=== PATIENT | male | born 1950 | race Caucasian/White ===

== ENCOUNTER → 2017-12-21 15:03 | Outpatient (CLI) | payer MEDICARE, SELFPAY ==
[2017-12-21 15:30] LABS: CPK Total, Creatine Kinase 71 U/L (39-308)
== END ==
PROVIDERS: Family Provider Family Medicine; PCP Family Medicine; Visit Provider Nurse Practitioner Family
DX: R07.89 Other chest pain (principal)
CPT/HCPCS: 82550; 84484

== ENCOUNTER 2018-01-03 19:52 | Emergency (ER) | payer MEDICARE, SELFPAY ==
[2018-01-03 19:53] VITALS: BP 133/70; PULSE 80; RESP 16; TEMP 37.7; O2SAT 92; BMI 41.8
--- NOTE | 2018-01-03 21:25 | RAD_ITS ---
STUDY: X-RAY CHEST REASON FOR EXAM: Male, 67 years old. Chest pain TECHNIQUE: Frontal and lateral views of the chest COMPARISON: 05/06/2016 FINDINGS: The lungs are clear. There are no pleural effusions. There is no pneumothorax. The heart is normal in size. There are old, healed left-sided rib fractures. RAD/Chest PA and Lateral IMPRESSION: No acute thoracic pathology. Electronically Signed: William Corrales, at 21:56 EST Tel , Service support ,
--- NOTE | 2018-01-03 23:18 | ED.DCSUM_ITS ---
- ER Visit Summary Date of Service: 01/03/18 Chief Complaint: 3 week history of a cough. History of Present Illness: The patient is a 67 M has medical history of non- insulin-dependent diabetes, hypertension and anemia. Patient states that 3 week history of a cough. He was seen at the [facility] by nurse practitioner and placed on some antibiotic twice daily. He said initially felt better and now it seems like is coming back. He states he developed a sore throat on Wednesday. He has had some mild diarrhea and dry heaves. No shortness of breath. No chest pain. No leg pain or swelling. No hemoptysis. Currently is a non-smoker. Physical Examination: Male vital signs are febrile. Temperature 999. Pulse ox 90% room air no signs of hypoxia. H EENT exam unremarkable. Neck nontender no lymphadenopathy. TMs are normal bilaterally. Lungs dry cough but no rales, rhonchi or wheezing. Heart regular rate and rhythm no murmur. Abdomen is soft nontender nondistended no giving or masses. Normal bowel sounds no peritoneal signs. He is moving all 4 extremities. Neurovascular intact. Calves nontender , no edema no cords. Neurologically is awake and alert with no focal deficits. Test Results: Chest x-ray shows chronic changes but no acute process. No signs of pneumonia. Normal cardiac silhouette. Read both by myself and the radiologist. Emergency Department Course and Treatment: Exam the patient is doing well at 2315. He will be discharged to home. Treatment Plan: Patient is a viral syndrome. Fluids and rest. No antibiotic necessary. Disposition: discharge Impression: Viral URI This note was generated with [employer] dictation software. It may contain incorrect words, spelling, and punctuation that were not noted in review of the chart prior to signing ED Disposition - Plan for ED Patient: Chief Complaint: Cold Sx Referrals: Boston Figueroa MD [Primary Care Provider] -
--- NOTE | 2018-01-03 23:18 | ED.DEP ---
ED Disposition - Plan for ED Patient: Disposition: Home or Assisted Living Chief Complaint: Cold Sx Instructions: ED Upper Resp Infec No Abx Tx Referrals: Boston Figueroa MD [Primary Care Provider] - 1 Week if not improving Additional Instructions: Fluids and rest. Tylenol and Motrin for fever body aches. Your chest x-ray shows no signs of pneumonia. This appears to be a viral respiratory infection therefore antibiotics are not necessary. Call follow-up your primary care physician if not getting better return to ER if you are feeling worse.
[2018-01-03 23:47] VITALS: O2SAT 95
[2018-01-03 23:48] VITALS: BP 123/78; PULSE 75; RESP 17; O2SAT 96
== END 2018-01-03 23:48 | disposition home or self-care (01) ==
PROVIDERS: Emergency Provider Emergency Medicine; Family Provider Family Medicine; PCP Family Medicine
DX: J40 Bronchitis, not specified as acute or chronic (principal); J06.9 Acute upper respiratory infection, unspecified; R19.7 Diarrhea, unspecified; R11.10 Vomiting, unspecified; E11.9 Type 2 diabetes mellitus without complications; I10 Essential (primary) hypertension; D64.9 Anemia, unspecified; K76.0 Fatty (change of) liver, not elsewhere classified; Z79.899 Other long term (current) drug therapy
CPT/HCPCS: 71046; 99282

== ENCOUNTER → 2018-01-31 06:12 | Outpatient (CLI) | payer MEDICARE, SELFPAY ==
--- NOTE | 2018-01-31 18:32 | STRESSREP ---
Stress Test Report Pharmacologic myocardial perfusion stress test. 67-year-old man with a history of chest pressure and abnormal EKG. Stress protocol: Resting EKG demonstrates sinus rhythm with a rate of 61 bpm normal intervals and noted resting blood pressure is 144/80 mmHg. 0.4 mg regadenoson was infused per usual protocol followed by rapid intravenous saline flush injection continuous EKG monitoring was performed. The maximum heart rate attained was 75 bpm which was 49% maximum predicted heart rate the maximum workload attained was 1 metabolic equivalent. At rest there were no ST or T-wave changes noted to suggest abnormal flow reserve at peak infusion no ST or T-wave changes were noted suggest abnormal flow reserve. No clinical angina was noted. The resting blood pressure is 144/80 final blood pressure 130/70 mmHg. Myocardial perfusion protocol: 14.6 mCi of technetium 99m sestamibi was injected at rest. 0.4 mg regadenoson was infused per usual protocol. At peak infusion 44.8 mCi of technetium 99m sestamibi was injected stress images were obtained stress and rest images were reconstructed and compared in the short axis vertical long and horizontal long axis. Gated images were also obtained. Perfusion SPECT analysis: Review of the stress images demonstrate normal uptake of tracer noted involving the anterior wall and lateral wall. The septum and inferior wall demonstrate mildly reduced perfusion. No areas of reversibility are noted suggest ischemia. The resting images demonstrate a similar pattern. Inferior wall GI attenuation cannot be completely excluded. Gated SPECT analysis: The gated ejection fraction is 68%. Conclusion: Pharmacologic myocardial perfusion stress test with no evidence of ischemia. Preserved ejection fraction.
== END ==
PROVIDERS: Family Provider Family Medicine; PCP Family Medicine; Visit Provider Nurse Practitioner Family
DX: R07.89 Other chest pain (principal)
CPT/HCPCS: 78452; 93017; A9500; A4216; J2785

== ENCOUNTER → 2018-04-25 10:26 | Outpatient (CLI) | payer MEDICARE, SELFPAY ==
--- NOTE | 2018-04-25 10:29 | ECHOD_ITS ---
Reason For Study: Murmur Procedure This was a 2D Doppler, Color Flow transthoracic echocardiogram. Exam performed in department. Left Ventricle Normal LV size. Left ventricular systolic function is normal. The estimated ejection fraction is 60 %. Transmitral diastolic flow velocities suggest mild (stage 1) diastolic dysfunction (reversed pattern). No regional wall motion abnormalities noted. Right Ventricle Normal RV size. Normal systolic function. Atria The left atrium is mildly enlarged. Normal right atrium. Mitral Valve Normal mitral valve. Trivial mitral valve insufficiency. Tricuspid Valve Normal tricuspid valve. Unable to estimate RV systolic pressure due to inadequate jet, pulmonary artery pressure probably normal. Aortic Valve Trisinus/trileaflet aortic valve. Mild focal aortic valve calcification. Peak aortic valve gradient 36 mmHg. Mean aortic valve gradient 19 mmHg. Moderate aortic stenosis. Calculated aortic valve area (continuity equation) is 1.0 cm2. Mild (1+) aortic valve insufficiency. Pulmonic Valve Normal pulmonic valve. Great Vessels Normal aortic root. The pulmonary artery is normal size. Normal inferior vena cava. Pericardium/Pleural No pericardial effusion. MMode/2D Measurements & Calculations LVIDd: 4.7 cm IVSd: 1.1 cm LVOT diam: 2.0 cm LVIDs: 3.5 cm LVPWd: 1.3 cm LVOT area: 3.2 cm2 FS: 25.4 % Ao root diam: 3.7 cm LAV(MOD-bp): 56.1 ml LA A4 area: 21.0 cm2 ACS: 0.96 cm LAV(MOD-bp) Indexed: 22.9 ml/m2 LA dimension: 4.3 cm LAV(MOD-sp2): 43.0 ml LAV(MOD-sp4): 67.7 ml RA A4 area: 14.2 cm2 Time Measurements MV dec time: 0.18 sec Doppler Measurements & Calculations MV E max raghavendra: 71.3 cm/sec Lat Peak E' Raghavendra: 11.9 cm/sec Med Peak E' Raghavendra: 6.8 cm/sec MV A max raghavendra: 110.6 cm/sec E/E' lat: 6.0 E/E' med: 10.4 MV E/A: 0.65 MV V2 max: 116.5 cm/sec MV P1/2t max raghavendra: 85.7 cm/sec Ao V2 max: 301.4 cm/sec MV max P.4 mmHg MV P1/2t: 92.6 msec Ao max P.3 mmHg MV V2 mean: 60.9 cm/sec MV dec slope: 271.2 cm/sec2 Ao V2 mean: 201.4 cm/sec MV mean P.7 mmHg MVA(P1/2t): 2.4 cm2 Ao mean P.6 mmHg MV V2 VTI: 36.6 cm Ao V2 VTI: 68.1 cm MVA(VTI): 2.2 cm2 CATHIE(I,D): 1.2 cm2 CATHIE(V,D): 1.0 cm2 AI max raghavendra: 429.7 cm/sec LV V1 max: 96.3 cm/sec SV(LVOT): 80.6 ml AI max P.8 mmHg LV V1 max P.7 mmHg AI dec slope: 240.6 cm/sec2 LV V1 mean P.2 mmHg AI P1/2t: 523.0 msec LV V1 mean: 68.8 cm/sec LV V1 VTI: 25.1 cm PA V2 max: 98.2 cm/sec Interpretation Summary Normal LV size. Left ventricular systolic function is normal. The estimated ejection fraction is 60 %. Transmitral diastolic flow velocities suggest mild (stage 1) diastolic dysfunction (reversed pattern). Trivial mitral valve insufficiency. Moderate aortic stenosis. Calculated aortic valve area (continuity equation) is 1.0 cm2. Ordering Physician: Sabas Bae Referring Physician: Sabas Bae Performed By: Oscar Godoy RCS
== END ==
PROVIDERS: Family Provider Family Medicine; PCP Family Medicine; Visit Provider Internal Medicine Cardiovascular Disease
DX: I35.0 Nonrheumatic aortic (valve) stenosis (principal)
CPT/HCPCS: 93306

== ENCOUNTER 2018-07-29 08:18 | Outpatient (RCR) | payer MEDICARE, SELFPAY | END 2018-07-31 23:59 | LOC: NS 08:18 | PROVIDERS: Family Provider Family Medicine; PCP Family Medicine; Visit Provider Family Medicine | DX: E11.42 Type 2 diabetes mellitus with diabetic polyneuropathy (principal); E78.2 Mixed hyperlipidemia; I10 Essential (primary) hypertension; E66.01 Morbid (severe) obesity due to excess calories; Z68.41 Body mass index [BMI] 40.0-44.9, adult; Z71.3 Dietary counseling and surveillance | CPT/HCPCS: 97802 ==

== ENCOUNTER 2018-08-19 08:30 | Outpatient (RCR) | payer MEDICARE, SELFPAY | END 2018-08-31 23:59 | LOC: NS 08:30 | PROVIDERS: Family Provider Family Medicine; PCP Family Medicine; Visit Provider Family Medicine | DX: E66.01 Morbid (severe) obesity due to excess calories (principal); Z68.41 Body mass index [BMI] 40.0-44.9, adult; E11.42 Type 2 diabetes mellitus with diabetic polyneuropathy; E78.2 Mixed hyperlipidemia; I10 Essential (primary) hypertension; Z71.3 Dietary counseling and surveillance | CPT/HCPCS: 97803 ==

== ENCOUNTER 2018-09-06 10:18 | Outpatient (RCR) | payer MEDICARE, SELFPAY | END 2018-09-06 23:59 | LOC: NS 10:18 | PROVIDERS: Family Provider Family Medicine; PCP Family Medicine; Visit Provider Family Medicine | DX: E66.01 Morbid (severe) obesity due to excess calories (principal); Z68.41 Body mass index [BMI] 40.0-44.9, adult; E11.42 Type 2 diabetes mellitus with diabetic polyneuropathy; E78.2 Mixed hyperlipidemia; I10 Essential (primary) hypertension; Z71.3 Dietary counseling and surveillance | CPT/HCPCS: 97803 ==

== ENCOUNTER → 2019-02-10 12:34 | Outpatient (CLI) | payer MEDICARE, SELFPAY ==
[2019-01-25 16:06] VITALS: BMI 45.8
--- NOTE | 2019-02-10 12:36 | ECHOCS_ITS ---
Reason For Study: Murmur Procedure This was a 2D Doppler, Color Flow transthoracic echocardiogram. Exam performed in department. Left Ventricle Normal LV size. Mild concentric left ventricular hypertrophy. The estimated ejection fraction is 37 %. Moderate global left ventricular systolic dysfunction. Stage 1 diastolic dysfunction. There is moderate global hypokinesis of the left ventricle. Right Ventricle Normal RV size. Normal systolic function. Atria The left atrium is moderately enlarged. Normal right atrium. Mitral Valve Normal mitral valve. Tricuspid Valve Normal tricuspid valve. Unable to estimate RV systolic pressure due to inadequate jet, pulmonary artery pressure probably normal. Aortic Valve Trisinus/trileaflet aortic valve. Moderate diffuse aortic valve calcification. Peak aortic valve gradient 37 mmHg. Mean aortic valve gradient 17 mmHg. Moderate aortic stenosis. Calculated aortic valve area (continuity equation) is 1.0 cm2. Mild (1+) aortic valve insufficiency. Pulmonic Valve Normal pulmonic valve. Great Vessels Normal aortic root. The pulmonary artery is normal size. Normal inferior vena cava. Pericardium/Pleural No pericardial effusion. Medication 22 gauge I.V. with prn adaptor inserted into right arm. Diluted definity 2ml given slow IV push to enhance endocardial definition. MMode/2D Measurements & Calculations LVIDd: 5.8 cm IVSd: 1.3 cm LVOT diam: 2.0 cm LVIDs: 4.1 cm LVPWd: 1.1 cm RVDd: 3.6 cm FS: 28.6 % LVOT area: 3.3 cm2 Ao root diam: 3.5 cm LAV(MOD-bp): 78.6 ml LVAd ap4: 42.6 cm2 LAV(MOD-sp2): 60.0 ml EDV(MOD-sp4): 156.3 ml LAV(MOD-sp4): 95.8 ml EDV(sp4-el): 164.5 ml LVAs ap4: 31.7 cm2 ESV(MOD-sp4): 97.6 ml ESV(sp4-el): 100.9 ml EF(MOD-sp4): 37.6 % EF(sp4-el): 38.7 % SV(MOD-sp4): 58.7 ml SV(sp4-el): 63.6 ml LA A4 area: 27.4 cm2 RA A4 area: 17.2 cm2 Time Measurements MV dec time: 0.16 sec Doppler Measurements & Calculations MV E max raghavendra: 93.4 cm/sec Lat Peak E' Raghavendra: 14.4 cm/sec Med Peak E' Raghavendra: 6.3 cm/sec MV A max raghavendra: 104.8 cm/sec E/E' lat: 6.5 E/E' med: 14.7 MV E/A: 0.89 MV V2 max: 122.5 cm/sec MV P1/2t max raghavendra: 109.6 cm/sec Ao V2 max: 303.8 cm/sec MV max P.0 mmHg MV P1/2t: 64.1 msec Ao max P.9 mmHg MV V2 mean: 76.9 cm/sec MV dec slope: 500.8 cm/sec2 Ao V2 mean: 188.0 cm/sec MV mean P.7 mmHg MVA(P1/2t): 3.4 cm2 Ao mean P.0 mmHg MV V2 VTI: 27.8 cm Ao V2 VTI: 64.7 cm MVA(VTI): 2.3 cm2 CATHIE(I,D): 1.00 cm2 CATHIE(V,D): 0.99 cm2 AI max raghavendra: 403.7 cm/sec LV V1 max: 92.8 cm/sec MR max raghavendra: 467.6 cm/sec AI max P.2 mmHg LV V1 max P.5 mmHg MR max P.5 mmHg LV V1 mean P.0 mmHg AI dec slope: 359.3 cm/sec2 LV V1 mean: 65.9 cm/sec AI P1/2t: 329.1 msec LV V1 VTI: 19.8 cm SV(LVOT): 64.5 ml PA V2 max: 89.1 cm/sec Interpretation Summary Normal LV size. The estimated ejection fraction is 37 %. Moderate global left ventricular systolic dysfunction. Stage 1 diastolic dysfunction. Moderate diffuse aortic valve calcification. Moderate aortic stenosis. Calculated aortic valve area (continuity equation) is 1.0 cm2. Mild (1+) aortic valve insufficiency. Compared to the previous the LV function is reduced but the AV area is the same Contrast injection was performed. Ordering Physician: Sabas Bae Referring Physician: Sabas Bae Performed By: Oscar Godoy RCS
== END ==
PROVIDERS: Family Provider Family Medicine; PCP Family Medicine; Referring Provider Internal Medicine Cardiovascular Disease; Visit Provider Internal Medicine Cardiovascular Disease
DX: I25.10 Atherosclerotic heart disease of native coronary artery without angina pectoris (principal)
CPT/HCPCS: 93306; Q9957; C8929

== ENCOUNTER → 2019-02-15 10:27 | Outpatient (CLI) | payer MEDICARE, SELFPAY ==
[2019-02-15 08:56] VITALS: BMI 45.2
--- NOTE | 2019-02-15 10:50 | RAD_ITS ---
STUDY: X-RAY CHEST REASON FOR EXAM: Male, 69 years old. Preop for cardiac stents TECHNIQUE: PA and lateral views of the chest. COMPARISON: 01/03/2018 FINDINGS: There are interstitial fibrotic changes of the lungs. There is no demonstrated pleural abnormality. Normal size heart. Normal mediastinum and simi. Normal visualized pulmonary arteries. Normal visualized aortic arch and descending thoracic aorta. Normal visualized thoracic spine. Normal visualized ribs, clavicles, and shoulders. There is no demonstrated abnormality of the visualized soft tissue structures of the upper abdomen. RAD/Chest PA and Lateral IMPRESSION: Degenerative changes, as described above. No demonstrated acute cardiopulmonary process. Electronically Signed: Valerio Dinh MD at 15:57 EDT , Service support ,
[2019-02-15 11:09] LABS: Absolute Lymphocyte Count 1.28 X10^3/ul (0.83-4.51); Absolute Neutrophil Count 5.4 X10^3/uL (2.0-7.7); Basophil# 0.03 X10^3/uL; Basophil% 0.4 % (0-1); Eosinophil# 0.23 X10^3/uL; Hematocrit 41.6 % (40-54); Hemoglobin 12.9 g/dl (13.0-16.5); Lymphocyte # 1.28 X10^3/ul (4.0); Lymphocyte % 16.8 % (19-41); Mean Corpuscular Hgb 29.4 pg (27.0-32.0); Mean Corpuscular Volume 94.8 fL (80-94); Mean Platelet Vol. 10.6 fl (6.2-12.0); Monocyte# 0.61 X10^3/uL; Neutrophil # 5.43 X10^3/uL (2.7-7.7); Neutrophil % 71.5 % (47-70); POSITIVE COUNT NO; POSITIVE DIFFERENTIAL NO; POSITIVE MORPHOLOGY NO; Platelet Count 219 K/mm3 (150-450); RBC Distribution Width CV 14.9 % (11.6-14.6); RBC Distribution Width SD 51.1 fl (35.1-43.9); Red Blood Count 4.39 M/mm3 (4.6-6.2); White Blood Count 7.6 K/mm3 (4.4-11.0)
[2019-02-15 11:28] LABS: Anion Gap 6 (5-15); BUN 29 mg/dL (7-18); BUN/Creat Ratio 21.5 RATIO (10-20); Calcium,Total 8.5 mg/dL (8.5-10.1); Chloride 103 mmol/L (98-107); Creatinine, Serum 1.35 mg/dL (0.70-1.30); EST Glomerular Filtration Rate 56 mL/min (>60); Est Glom Filt Rate - Afr Amer 67 mL/min (>60); Glucose 177 mg/dL (74-106); Potassium 4.5 mmol/L (3.5-5.1); Sodium Level 138 mmol/L (136-145)
== END ==
PROVIDERS: Family Provider Family Medicine; PCP Family Medicine; Referring Provider Internal Medicine Cardiovascular Disease; Visit Provider Internal Medicine Cardiovascular Disease
DX: I35.0 Nonrheumatic aortic (valve) stenosis (principal); I10 Essential (primary) hypertension
CPT/HCPCS: 36415; 71046; 80048; 85025

== ENCOUNTER 2019-02-24 21:29 | Inpatient (IN) | payer MEDICARE, SELFPAY ==
[2019-02-15 08:56] VITALS: BMI 45.2
[2019-02-24 21:30] VITALS: BP 176/97; PULSE 98; RESP 24; TEMP 37.2; O2SAT 97; BMI 43.1
--- NOTE | 2019-02-24 21:41 | EKG12_ITS ---
Test Reason : CP Blood Pressure : / mmHG Vent. Rate : 100 BPM Atrial Rate : 100 BPM P-R Int : 138 ms QRS Dur : 100 ms QT Int : 344 ms P-R-T Axes : 033 048 163 degrees QTc Int : 443 ms Normal sinus rhythm ST & T wave abnormality, consider inferolateral ischemia Abnormal ECG Confirmed by DANIELA MOYER, BRICE ([id number]), editorial intern EDYTA NEIL ([id number]) on 02/27/2019 11:54:59 AM Referred By: Sabas Bae Confirmed By:BRICE SUAREZ MD
--- NOTE | 2019-02-24 21:44 | RAD_ITS ---
STUDY: X-RAY CHEST REASON FOR EXAM: Male, 69 years old. Chest pain for one hour. Shortness of breath. TECHNIQUE: Single AP portable view of the chest. COMPARISON: 02/15/2019. FINDINGS: There is mild atelectasis in the lower lung collins. There are no demonstrated pulmonary infiltrates. There is no demonstrated pleural abnormality. Normal size heart. Normal mediastinum and simi. Normal visualized pulmonary arteries. Normal visualized aortic arch and descending thoracic aorta. There are diffuse degenerative changes of the visualized thoracic spine. Normal visualized ribs, clavicles, and shoulders. There is no demonstrated abnormality of the visualized soft tissue structures of the upper abdomen. RAD/Chest 1 View (Portable) IMPRESSION: No evidence for acute cardiopulmonary pathology. Electronically Signed: Delta Holland MD at 22:08 EDT , Service support ,
[2019-02-24 21:56] LABS: Absolute Lymphocyte Count 2.38 X10^3/ul (0.83-4.51); Absolute Neutrophil Count 6.4 X10^3/uL (2.0-7.7); Basophil# 0.02 X10^3/uL; Basophil% 0.2 % (0-1); Eosinophil# 0.25 X10^3/uL; Eosinophils% 2.5 % (0-5); Hematocrit 42.6 % (40-54); Hemoglobin 13.6 g/dl (13.0-16.5); Lymphocyte # 2.38 X10^3/ul (4.0); Lymphocyte % 23.8 % (19-41); Mean Corp Hgb Conc 31.9 g/gl (32-36); Mean Corpuscular Hgb 29.7 pg (27.0-32.0); Mean Platelet Vol. 10.5 fl (6.2-12.0); Monocyte# 0.94 X10^3/uL; Monocyte% 9.4 % (0-10); Neutrophil # 6.37 X10^3/uL (2.7-7.7); Neutrophil % 63.9 % (47-70); Platelet Count 214 K/mm3 (150-450); RBC Distribution Width CV 15.2 % (11.6-14.6); RBC Distribution Width SD 51.6 fl (35.1-43.9); Red Blood Count 4.58 M/mm3 (4.6-6.2)
[2019-02-24 21:57] LABS: POSITIVE COUNT NO; POSITIVE DIFFERENTIAL NO; POSITIVE MORPHOLOGY NO
[2019-02-24 22:07] LABS: Anion Gap 8 (5-15); BUN 37 mg/dL (7-18); BUN/Creat Ratio 19.7 RATIO (10-20); Calcium,Total 8.2 mg/dL (8.5-10.1); Chloride 107 mmol/L (98-107); Creatinine, Serum 1.88 mg/dL (0.70-1.30); EST Glomerular Filtration Rate 38 mL/min (>60); Est Glom Filt Rate - Afr Amer 46 mL/min (>60); Estimated Creatinine Clearance 36.56 ml/min; Glucose 267 mg/dL (74-106); International Normalized Ratio 1.1; Potassium 4.9 mmol/L (3.5-5.1); Prothrombin Time (Protime)PT. 14.3 SECONDS (11.7-14.9); Sodium Level 140 mmol/L (136-145)
[2019-02-24] MEDS: Aspirin 81 MG TAB.CHEW 324 MG PO (22:48)
[2019-02-24] MEDS: Enoxaparin 120 MG/0.8 ML Syringe SC (22:49)
[2019-02-24 23:00] VITALS: BP 113/70; PULSE 74; RESP 14; O2SAT 96
--- NOTE | 2019-02-24 23:35 | ED.VISSUMM ---
- ER Visit Summary Date of Service: 02/24/19 Chief Complaint: Chest pain History of Present Illness: The patient is a [address] Bae and Dr. Figueroa. Patient reports that he had a heart catheterization in December that showed that he needed stents. He is actually scheduled to have this done on March 06. Reports that at 9:00 this evening while at rest he had the onset of a substernal chest pain lasted approximately 20 minutes. It radiated to both arms and into his jaw. It was tender to the worse and is pain-free currently. It was worsened by nothing. He took 2 doses of nitro without relief. Reports he was nausea and had dry heaves. He was also short of breath during this. He denies any diaphoresis. Physical Examination: Vitals: Stable. Afebrile. General: Well-nourished and well-developed. Head: Normocephalic atraumatic. Neck: Supple, no lymphadenopathy. No JVD. Nontender. Cardiovascular: Regular rate and rhythm. 2 out of 6 systolic murmur. Respiratory: No respiratory distress. Clear to auscultation bilaterally. Abdominal: Soft, nontender, nondistended, normal bowel sounds. No guarding, rebound, or peritoneal signs. Back: Nontender. Extremities: Nontender, no edema. Skin: Normal color, no rash. Neurologic: Alert and oriented ?3. Cranial nerves II through XII are intact. Normal strength and sensation. Psych: Normal affect. Test Results: EKG is sinus at [address] depression and T wave inversions. This is a change from his last EKG was was in April 2016. Chest x-ray is normal. CBC is normal. Chem-7 shows a BUN of 37, creatinine 1.88, glucose of 367, calcium of 8.2. INR is 1.1. Initial troponin 0 0.016. Emergency Department Course and Treatment: Patient was treated with aspirin and Lovenox subcu. He is chest pain-free and resting comfortably. I did review the patient's most recent office note from Dr. Bae. It shows that he had a heart catheterization 4-year 27 in [place] that showed an ejection fraction of 40%. He had a 90% LAD lesion, 60% circumflex lesion, 90% RCA lesion. This was discussed with the interventionalist who felt that these might be amenable to stent rather than bypass. He was scheduled to have this done as an outpatient. Treatment Plan: The patient was discussed with Dr. Dejesus and Dr. Key. He will be admitted to the hospital for further evaluation and treatment. Disposition: Admitted in improved condition. Impression: 1. Acute coronary syndrome. 2. VICTOR M score of 6. 3. Critical care time 30 minutes. This note was generated with [employer] dictation software. It may contain incorrect words, spelling, and punctuation that were not noted in review of the chart prior to signing ED Disposition - Plan for ED Patient: Disposition: Acute Care [facility]
--- NOTE | 2019-02-24 23:53 | PCM.HP.STD ---
Problem List (1) Non-rheumatic aortic stenosis Status: Chronic (2) Acute on chronic combined systolic (congestive) and diastolic (congestive) heart failure Status: Chronic (3) Hyperlipidemia Status: Chronic (4) Essential (primary) hypertension Status: Chronic History of Present Illness Date of Admission: 02/24/19 Chief Complaint: Chest pain The patient is a 69 year old M with a PMH as below who presents with acute onset of chest pain today while at rest. He states that the pain would radiate up to his jaw. He has had this pain before, and he was in [place] in September when he was having chest pain and he underwent a cardiac catheter few months ago while there that demonstrated significant coronary artery disease and they had suggested that he undergo coronary artery bypass as well as aortic valve replacement given his aortic stenosis. However, at that time he was found to have inflammation in his left lower extremity and they canceled surgery because they would not be able to take the graft. He was started on antibiotics at that time and he decided to come back to [place] and find a surgeon here to undergo the procedure. 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 He is currently presenting with similar chest pain in the ER the troponin was unremarkable and his EKG was different from his previous but we do not know if this is different than the EKGs that he had had in [place]. After receiving nitro, and a full dose aspirin he is beginning to feel better. Past Medical History Past Medical History (Chronic Problems): Chronic Problems (Last Reviewed 02/15/19 @ 09:53 by Sabas Bae MD) Non-rheumatic aortic stenosis (Chronic) Atherosclerosis of coronary artery without angina pectoris (Chronic) LAD-90% stenosis, LCx 60% stenosis, RCA 90% stenosis, EF 40%, mod 12/29/18 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) Hyperlipidemia (Chronic) Essential (primary) hypertension (Chronic) Secondary pulmonary arterial hypertension (Chronic) Medical History: Medical History (Last Reviewed 02/15/19 @ 09:53 by Sabas Bae MD) Non-rheumatic aortic stenosis (Chronic) I35.0 Atherosclerosis of coronary artery without angina pectoris (Chronic) I25.10 LAD-90% stenosis, LCx 60% stenosis, RCA 90% stenosis, EF 40%, mod 12/29/18 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) I50.43 Hyperlipidemia (Chronic) E78.5 Essential (primary) hypertension (Chronic) I10 Secondary pulmonary arterial hypertension (Chronic) I27.21 Bilateral lower extremity edema R60.0 Dermatitis L30.9 Elevated liver enzymes R74.8 Fatty liver K76.0 Gout M10.9 Morbid obesity E66.01 Obstructive sleep apnea G47.33 Osteoarthritis M19.90 Type 2 diabetes mellitus E11.9 Diastolic dysfunction (Inactive) I51.9 Allergies metformin Adverse Reaction (Verified 02/24/19 21:34) Elevated LDH and anion gap Home Medications: Ambulatory Orders Medication Instructions Recorded Allopurinol [Zyloprim] 300 mg PO DAILY 04/10/16 amoxicillin 500 mg capsule 500 mg PO .COMPLEX 04/14/18 aspirin 81 mg tablet,delayed 81 mg PO QDAY 04/14/18 release atorvastatin 20 mg tablet 40 mg PO QHS tab 01/25/19 carvedilol 6.25 mg tablet 6.25 mg PO BID 01/25/19 furosemide 40 mg tablet 40 mg PO BID tab 01/25/19 glipizide 5 mg tablet 5 mg PO BID 01/25/19 lisinopril 10 mg tablet 10 mg PO DAILY 01/25/19 multivitamin tablet 1 tab PO DAILY 01/25/19 nitroglycerin 0.4 mg sublingual 0.4 mg SUBLINGUAL Q5-15M PRN 01/25/19 tablet Surgical History: Surgical History (Last Reviewed 02/15/19 @ 09:53 by Sabas Bae MD) History of appendectomy Z90.49 History of herniorrhaphy Z98.890, Z87.19 History of left heart catheterization Onset Date: 12/29/18 Z98.890 LAD-90% stenosis, LCx 60% stenosis, RCA 90% stenosis, EF 40%, mod 12/29/18 History of tonsillectomy Z90.89 History of total knee replacement (TKR) Z96.659 Surgical History: - - T+A, Appendectomy, Inguinal Hernia repair, R TKR, L Knee Surgery Psychiatric History: No pertinent psych hx Smoking Status: Former smoker Tobacco Use: Cigarettes Alcohol: None Drugs: None - *Family History Maternal Family History: Family History (Last Reviewed 02/15/19 @ 09:53 by Sabas Bae MD) Mother Diabetes Hypertension Father Diabetes Hypertension Sister Hypertension Brother Diabetes Hypertension Cancer, Onset Age: 50 CAD (coronary artery disease) History Items: No pertinent history Paternal Family History: Family History (Last Reviewed 02/15/19 @ 09:53 by Sabas Bae MD) Mother Diabetes Hypertension Father Diabetes Hypertension Sister Hypertension Brother Diabetes Hypertension Cancer, Onset Age: 50 CAD (coronary artery disease) History Items: No pertinent history Review of Systems Constitutional: Denies: Chills, Fever, Weight Change HEENT: Denies: Head Aches, Sinus Congestion, Sinus Drainage Cardiovascular: Reports: Chest Pain. Denies: Palpitations Respiratory: Denies: Cough, Shortness of breath at rest, Sputum production Gastrointestinal: Denies: Abdominal Pain, Nausea, Vomiting Genitourinary: Denies: Dysuria Musculoskeletal: Denies: Joint Pain, Joint Tenderness Skin: Denies: Rash, Wounds Neurological: Denies: Numbness, Tingling, Focal weakness Psychiatric: Denies: Anxiety, Depression Hematologic/ Lymphatic: Denies: Easy Bruising, Easy Bleeding VTE Information - Inpt Only VTE Present on Admission: No - Physical Exam General: Alert, Oriented x3, Cooperative, No apparent distress HEENT: Atraumatic, PERRLA, EOMI, Normocephalic Oral: Moist Mucosa Neck: Supple, No JVD, Trachea Midline Lungs: Clear to auscultation, Normal air movement, No rhonchi, No wheeze, No rales Cardiovascular: Regular rate, Regular Rhythm, Normal S1, Normal S2, No murmurs Abdomen: Soft, Non Tender, Non-Distended, No Hepato-splenomegaly Extremities: No edema, Capillary Refill Less than 3 Seconds Skin: No rashes, No breakdown, - Neurological: Neuro grossly intact, Sensory exam intact to light touch and pain Psych/Mental Status: Normal Affect, Appropriate Vital Signs Temp Pulse Resp BP Pulse Ox 98.9 F 74 14 113/70 96 02/24/19 21:30 02/24/19 23:00 02/24/19 23:00 02/24/19 23:00 02/24/19 23:00 Oxygen Delivery Method Room Air Weight: 292 lb 1.8 oz Body Mass Index (BMI) 43.1 Laboratory Tests Past 24 Hrs 02/24/19 02/24/19 02/24/19 21:37 21:37 21:37 WBC 10.0 RBC 4.58 L Hgb 13.6 Hct 42.6 MCV 93.0 MCH 29.7 MCHC 31.9 L RDW 15.2 H RDW Differential 51.6 H Plt Count 214 MPV 10.5 Immature Gran % (Auto) 0.200 Neut % (Auto) 63.9 Lymph % (Auto) 23.8 [place] % (Auto) 9.4 Eos % (Auto) 2.5 Baso % (Auto) 0.2 Absolute Neuts (auto) 6.4 Absolute Lymphs (auto) 2.38 Total Counted Not Reportable PT 14.3 INR 1.1 Sodium 140 Potassium 4.9 Chloride 107 Carbon Dioxide 25.0 Anion Gap 8 BUN 37 H Creatinine 1.88 H Estim Creat Clear Calc 36.56 Est GFR (MDRD) Af Amer 46 L Est GFR (MDRD) Non-Af 38 L BUN/Creatinine Ratio 19.7 Glucose 267 H Calcium 8.2 L Troponin I 0.016 Assessment/Plan 1. Coronary artery disease/chest pain/HLD/HTN/chronic systolic and diastolic heart failure -He is presenting with an acute onset chest pain with a normal troponin -Goal trend his troponins and consult cardiology since there is already a planned intervention -Had an echo on the 15th of this month with an EF of 37% and moderate aortic stenosis -We will continue with his lisinopril, Coreg, aspirin, Lipitor -Creatinine is slightly elevated from baseline at 1.88 and will provide some IV fluids and hold his Lasix -He received full dose aspirin in the ER as well as therapeutic Lovenox. 2. Gout -Stable -Continue with allopurinol 3. DM2 -He is on glipizide at home which we will hold -will continue with long-acting insulin at night as well as sliding scale DVT: Lovenox Code Visit Inpatient E&M: 40975 Init Hosp L3
[2019-02-25] VITALS (14 sets, daily range): BP systolic 124–145; BP diastolic 56–81; PULSE 60–93; RESP 16–22; TEMP 36.6–37.1; O2SAT 93–98; BMI 42.3
--- NOTE | 2019-02-25 01:30 | EKG12_ITS ---
Test Reason : AM EKG Blood Pressure : / mmHG Vent. Rate : 062 BPM Atrial Rate : 062 BPM P-R Int : 194 ms QRS Dur : 094 ms QT Int : 392 ms P-R-T Axes : 061 027 018 degrees QTc Int : 397 ms Normal sinus rhythm Possible Anterior infarct , age undetermined Abnormal ECG Confirmed by DANIELA MOYER, BRICE ([id number]), market editor EDYTA NEIL ([id number]) on 02/28/2019 11:28:05 AM Referred By: KITTY Confirmed By:BRICE SUAREZ MD
[2019-02-25] MEDS: 0.9% Normal Saline 1,000 ML 75 ML IV (01:37)
--- NOTE | 2019-02-25 02:30 | EKG12_ITS ---
Test Reason : INC TROP Blood Pressure : / mmHG Vent. Rate : 067 BPM Atrial Rate : 067 BPM P-R Int : 180 ms QRS Dur : 094 ms QT Int : 392 ms P-R-T Axes : 047 030 056 degrees QTc Int : 414 ms Normal sinus rhythm Possible Inferior infarct , age undetermined Abnormal ECG Confirmed by DANIELA MOYER, BRICE ([id number]), city editor EDYTA NEIL ([id number]) on 02/28/2019 11:35:54 AM Referred By: Sabas Bae Confirmed By:BRICE SUAREZ MD
[2019-02-25] MEDS: Clopidogrel Bisulfate 300 MG Tablet 600 MG PO (02:40)
[2019-02-25 04:31] LABS: Absolute Lymphocyte Count 2.16 X10^3/ul (0.83-4.51); Absolute Neutrophil Count 5.8 X10^3/uL (2.0-7.7); Basophil# 0.03 X10^3/uL; Basophil% 0.3 % (0-1); Eosinophil# 0.16 X10^3/uL; Eosinophils% 1.8 % (0-5); Hematocrit 40.3 % (40-54); Hemoglobin 12.6 g/dl (13.0-16.5); Lymphocyte # 2.16 X10^3/ul (4.0); Lymphocyte % 24.4 % (19-41); Mean Corp Hgb Conc 31.3 g/gl (32-36); Mean Corpuscular Hgb 29.1 pg (27.0-32.0); Mean Corpuscular Volume 93.1 fL (80-94); Mean Platelet Vol. 10.4 fl (6.2-12.0); Monocyte# 0.65 X10^3/uL; Monocyte% 7.4 % (0-10); Neutrophil # 5.82 X10^3/uL (2.7-7.7); Neutrophil % 65.9 % (47-70); Platelet Count 207 K/mm3 (150-450); RBC Distribution Width CV 14.9 % (11.6-14.6); RBC Distribution Width SD 49.8 fl (35.1-43.9); Red Blood Count 4.33 M/mm3 (4.6-6.2); White Blood Count 8.8 K/mm3 (4.4-11.0)
[2019-02-25 04:33] LABS: POSITIVE COUNT NO; POSITIVE DIFFERENTIAL NO; POSITIVE MORPHOLOGY NO
[2019-02-25 05:17] LABS: Anion Gap 7 (5-15); BUN 36 mg/dL (7-18); BUN/Creat Ratio 22.2 RATIO (10-20); Calcium,Total 8.3 mg/dL (8.5-10.1); Chloride 110 mmol/L (98-107); Creatinine, Serum 1.62 mg/dL (0.70-1.30); EST Glomerular Filtration Rate 45 mL/min (>60); Est Glom Filt Rate - Afr Amer 54 mL/min (>60); Estimated Creatinine Clearance 42.43 ml/min; Glucose 131 mg/dL (74-106); Potassium 4.5 mmol/L (3.5-5.1); Sodium Level 143 mmol/L (136-145)
[2019-02-25 06:51] LABS: Bedside Glucose 116 mg/dL (70-110)
[2019-02-25] MEDS: Isosorbide Mononitrate 30 MG Tablet PO (08:58)
[2019-02-25] MEDS: Allopurinol 300 MG Tablet PO (08:59)
[2019-02-25] MEDS: Aspirin E.C. 81 MG Tablet PO (08:59)
[2019-02-25] MEDS: Carvedilol 6.25 MG Tablet PO ×2 (08:59→21:16)
[2019-02-25] MEDS: Lisinopril 10 MG Tablet PO (08:59)
[2019-02-25] MEDS: Enoxaparin 40 MG/0.4 ML Syringe SC (09:04)
[2019-02-25 11:36] LABS: Bedside Glucose 122 mg/dL (70-110)
--- NOTE | 2019-02-25 11:59 | PCM.PN.HOSP ---
Subjective: Patient seen and examined. Chest pain had resolved and he did not have any complaints. Review of systems otherwise negative for loss of vitals reviewed. Troponin noted to have trended up to a peak of 12. Vitals/I&O's: Vital Signs Temp Pulse Resp BP Pulse Ox 98.3 F 66 18 133/63 H 94 02/25/19 09:30 02/25/19 11:53 02/25/19 09:30 02/25/19 09:30 02/25/19 09:30 Oxygen Flow Rate (L/min) 2 Oxygen Delivery Method Room Air Weight: 286 lb 8 oz Body Mass Index (BMI) 42.3 Intake and Output for Last 24 Hours 02/23/19 02/24/19 02/25/19 23:59 23:59 23:59 Intake Total 500 / 500 Balance 500 / 500 General: Alert, Oriented x3, Cooperative, No apparent distress HEENT: Atraumatic, PERRLA, EOMI, Normocephalic Oral: Moist Mucosa Neck: Supple, No JVD, Negative Carotid Bruits Lungs: Clear to auscultation, Normal air movement, No rhonchi, No wheeze, No rales Cardiovascular: Regular rate, Regular Rhythm, Normal S1, Normal S2, No murmurs Abdomen: Bowel Sounds Present, Soft, Non Tender, Non-Distended, No Hepato-splenomegaly Extremities: No clubbing, No cyanosis, No edema, Capillary Refill Less than 3 Seconds Skin: No rashes, No breakdown Musculoskeletal: No Tenderness to Palpation of Joints or Extremities Lymphatic: No Cervical, Supraclavicular, or Inguinal Adenopathy Neurological: Cranial nerves II-XII grossly intact, Neuro grossly intact, Motor Exam 5/5 strength throughout Psych/Mental Status: Normal Affect, Appropriate, Alert and oriented to time, place, person, mood and affect Laboratory Results 02/24/19 21:37: WBC 10.0, RBC 4.58 L, Hgb 13.6, Hct 42.6, MCV 93.0, MCH 29.7, MCHC 31.9 L, RDW 15.2 H, RDW Differential 51.6 H, Plt Count 214, MPV 10.5, Immature Gran % (Auto) 0.200, Neut % (Auto) 63.9, Lymph % (Auto) 23.8, Polk % (Auto) 9.4, Eos % (Auto) 2.5, Baso % (Auto) 0.2, Absolute Neuts (auto) 6.4, Absolute Lymphs (auto) 2.38, Total Counted Not Reportable 02/24/19 21:37: PT 14.3, INR 1.1 02/24/19 21:37: Sodium 140, Potassium 4.9, Chloride 107, Carbon Dioxide 25.0, Anion Gap 8, BUN 37 H, Creatinine 1.88 H, Estim Creat Clear Calc 36.56, Est GFR (MDRD) Af Amer 46 L, Est GFR (MDRD) Non-Af 38 L, BUN/Creatinine Ratio 19.7, Glucose 267 H, Calcium 8.2 L, Troponin I 0.016 02/25/19 01:37: Troponin I 7.090 H* 02/25/19 04:19: Sodium 143, Potassium 4.5, Chloride 110 H, Carbon Dioxide 26.0, Anion Gap 7, BUN 36 H, Creatinine 1.62 H, Estim Creat Clear Calc 42.43, Est GFR (MDRD) Af Amer 54 L, Est GFR (MDRD) Non-Af 45 L, BUN/Creatinine Ratio 22.2 H, Glucose 131 H, Calcium 8.3 L, Troponin I 12.600 H* 02/25/19 04:19: WBC 8.8, RBC 4.33 L, Hgb 12.6 L, Hct 40.3, MCV 93.1, MCH 29.1, MCHC 31.3 L, RDW 14.9 H, RDW Differential 49.8 H, Plt Count 207, MPV 10.4, Immature Gran % (Auto) 0.200, Neut % (Auto) 65.9, Lymph % (Auto) 24.4, Polk % (Auto) 7.4, Eos % (Auto) 1.8, Baso % (Auto) 0.3, Absolute Neuts (auto) 5.8, Absolute Lymphs (auto) 2.16, Total Counted Not Reportable 02/25/19 06:46: POC Glucose 116 H 02/25/19 11:18: POC Glucose 122 H Diagnostic Data Chest X-Ray 02/24/19 21:44 IMPRESSION: No evidence for acute cardiopulmonary pathology. Electronically Signed: Delta Holland MD at 22:08 EDT , Service support , Current Medications Allopurinol (Zyloprim) 300 mg PO DAILY [facility] Last Admin: 02/25/19 08:59 Dose: 300 mg Aspirin (Ecotrin) 81 mg PO DAILY [facility] Last Admin: 02/25/19 08:59 Dose: 81 mg Atorvastatin Calcium (Lipitor) 40 mg PO QHS [facility] Carvedilol (Coreg) 6.25 mg PO BID [facility] Last Admin: 02/25/19 08:59 Dose: 6.25 mg Dextrose (D50w Syringe) 0 gm IV X1 PRN; Protocol PRN Reason: Hypoglycemia Enoxaparin Sodium (Lovenox) 40 mg SC DAILY@1000 [facility] Last Admin: 02/25/19 09:04 Dose: 40 mg Glucagon () 1 mg IM .X1 PRN PRN Reason: Hypoglycemia Sodium Chloride () 1,000 mls @ 75 mls/hr IV .[id number] [facility] Last Admin: 02/25/19 01:37 Dose: 75 mls/hr Insulin Glargine (Lantus (Bkc)) 10 units SC QHS [facility] Insulin Human Lispro (Humalog Kwikpen (Bk)) 0 unit SQ ACHS [facility]; Protocol Last Admin: 02/25/19 11:20 Dose: Not Given Isosorbide Mononitrate (Imdur) 30 mg PO DAILY [facility] Last Admin: 02/25/19 08:58 Dose: 30 mg Lisinopril (Zestril) 10 mg PO DAILY [facility] Last Admin: 02/25/19 08:59 Dose: 10 mg Magnesium Hydroxide (Milk Of Magnesia) 30 ml PO DAILY PRN PRN Reason: Constipation Nitroglycerin (Nitrostat) 0.4 mg SUBLINGUAL Q5M PRN PRN Reason: CHEST PAIN Sodium Chloride () 5 - 15 ml IV UD PRN PRN Reason: SALINE FLUSH Medical Necessity - Tobacco Use Smoking Status: Former smoker Tobacco Use: Cigarettes Assessment/Plan 1. NSTEMI chest pain didnt recur overnight troponin trended up from 0.016 on admission to a peak of 12.6 2D echo (02/13/19): EF of 37% with moderate aortic stenosis. Patient had similar event in [place] about 6 weeks ago and was scheduled to have CABG then but this was aborted on account of him getting cellulitis in the left lower extremity where the veins were going to be harvested. Patient has followed up with Dr. Bae and was scheduled to have a cardiac cath with possible angioplasty next week. currently on aspirin, plavix and statin as well as carvedilol. will put on heparin drip; unable to give lovenox therapeutic dose o/a of renal impairment Dr Dejesus on board; to have cardiac cath on Wednesday 2. History of gout: on allopurinol 3. 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 Also on carvedilol. Currently not on Lasix. 5. Type 2 diabetes mellitus: Glipizide on hold. On insulin Lantus 10 units nightly. Insulin sliding scale paradoxically seizures. 6. Hypertension: on carvedilol and lisinopril DVT prophylaxis: heparin drip Code Visit Inpatient E&M: [id number] [facility] L3
--- NOTE | 2019-02-25 12:08 | PN_ITS ---
Subjective: Patient seen and examined. Chest pain had resolved and he did not have any complaints. Review of systems otherwise negative for loss of vitals reviewed. Troponin noted to have trended up to a peak of 12. Vitals/I&O's: Vital Signs Temp Pulse Resp BP Pulse Ox 98.3 F 66 18 133/63 H 94 02/25/19 09:30 02/25/19 11:53 02/25/19 09:30 02/25/19 09:30 02/25/19 09:30 Oxygen Flow Rate (L/min) 2 Oxygen Delivery Method Room Air Weight: 286 lb 8 oz Body Mass Index (BMI) 42.3 Intake and Output for Last 24 Hours 02/23/19 02/24/19 02/25/19 23:59 23:59 23:59 Intake Total 500 / 500 Balance 500 / 500 General: Alert, Oriented x3, Cooperative, No apparent distress HEENT: Atraumatic, PERRLA, EOMI, Normocephalic Oral: Moist Mucosa Neck: Supple, No JVD, Negative Carotid Bruits Lungs: Clear to auscultation, Normal air movement, No rhonchi, No wheeze, No rales Cardiovascular: Regular rate, Regular Rhythm, Normal S1, Normal S2, No murmurs Abdomen: Bowel Sounds Present, Soft, Non Tender, Non-Distended, No Hepato- splenomegaly Extremities: No clubbing, No cyanosis, No edema, Capillary Refill Less than 3 Seconds Skin: No rashes, No breakdown Musculoskeletal: No Tenderness to Palpation of Joints or Extremities Lymphatic: No Cervical, Supraclavicular, or Inguinal Adenopathy Neurological: Cranial nerves II-XII grossly intact, Neuro grossly intact, Motor Exam 5/5 strength throughout Psych/Mental Status: Normal Affect, Appropriate, Alert and oriented to time, place, person, mood and affect Laboratory Results 02/24/19 21:37: WBC 10.0, RBC 4.58 L, Hgb 13.6, Hct 42.6, MCV 93.0, MCH 29.7, MCHC 31.9 L, RDW 15.2 H, RDW Differential 51.6 H, Plt Count 214, MPV 10.5, Immature Gran % (Auto) 0.200, Neut % (Auto) 63.9, Lymph % (Auto) 23.8, Patrick % (Auto) 9.4, Eos % (Auto) 2.5, Baso % (Auto) 0.2, Absolute Neuts (auto) 6.4, Absolute Lymphs (auto) 2.38, Total Counted Not Reportable 02/24/19 21:37: PT 14.3, INR 1.1 02/24/19 21:37: Sodium 140, Potassium 4.9, Chloride 107, Carbon Dioxide 25.0, Anion Gap 8, BUN 37 H, Creatinine 1.88 H, Estim Creat Clear Calc 36.56, Est GFR (MDRD) Af Amer 46 L, Est GFR (MDRD) Non-Af 38 L, BUN/Creatinine Ratio 19.7, Glucose 267 H, Calcium 8.2 L, Troponin I 0.016 02/25/19 01:37: Troponin I 7.090 H* 02/25/19 04:19: Sodium 143, Potassium 4.5, Chloride 110 H, Carbon Dioxide 26.0, Anion Gap 7, BUN 36 H, Creatinine 1.62 H, Estim Creat Clear Calc 42.43, Est GFR (MDRD) Af Amer 54 L, Est GFR (MDRD) Non-Af 45 L, BUN/Creatinine Ratio 22.2 H, Glucose 131 H, Calcium 8.3 L, Troponin I 12.600 H* 02/25/19 04:19: WBC 8.8, RBC 4.33 L, Hgb 12.6 L, Hct 40.3, MCV 93.1, MCH 29.1, MCHC 31.3 L, RDW 14.9 H, RDW Differential 49.8 H, Plt Count 207, MPV 10.4, Immature Gran % (Auto) 0.200, Neut % (Auto) 65.9, Lymph % (Auto) 24.4, Patrick % (Auto) 7.4, Eos % (Auto) 1.8, Baso % (Auto) 0.3, Absolute Neuts (auto) 5.8, Absolute Lymphs (auto) 2.16, Total Counted Not Reportable 02/25/19 06:46: POC Glucose 116 H 02/25/19 11:18: POC Glucose 122 H Diagnostic Data Chest X-Ray 02/24/19 21:44 IMPRESSION: No evidence for acute cardiopulmonary pathology. Electronically Signed: Delta Holland MD at 22:08 EDT , Service support , Current Medications Allopurinol (Zyloprim) 300 mg PO DAILY [facility] Last Admin: 02/25/19 08:59 Dose: 300 mg Aspirin (Ecotrin) 81 mg PO DAILY [facility] Last Admin: 02/25/19 08:59 Dose: 81 mg Atorvastatin Calcium (Lipitor) 40 mg PO QHS [facility] Carvedilol (Coreg) 6.25 mg PO BID [facility] Last Admin: 02/25/19 08:59 Dose: 6.25 mg Dextrose (D50w Syringe) 0 gm IV X1 PRN; Protocol PRN Reason: Hypoglycemia Enoxaparin Sodium (Lovenox) 40 mg SC DAILY@1000 [facility] Last Admin: 02/25/19 09:04 Dose: 40 mg Glucagon () 1 mg IM .X1 PRN PRN Reason: Hypoglycemia Sodium Chloride () 1,000 mls @ 75 mls/hr IV .[id number] [facility] Last Admin: 02/25/19 01:37 Dose: 75 mls/hr Insulin Glargine (Lantus (Bkc)) 10 units SC QHS [facility] Insulin Human Lispro (Humalog Kwikpen (Bk)) 0 unit SQ ACHS [facility]; Protocol Last Admin: 02/25/19 11:20 Dose: Not Given Isosorbide Mononitrate (Imdur) 30 mg PO DAILY [facility] Last Admin: 02/25/19 08:58 Dose: 30 mg Lisinopril (Zestril) 10 mg PO DAILY [facility] Last Admin: 02/25/19 08:59 Dose: 10 mg Magnesium Hydroxide (Milk Of Magnesia) 30 ml PO DAILY PRN PRN Reason: Constipation Nitroglycerin (Nitrostat) 0.4 mg SUBLINGUAL Q5M PRN PRN Reason: CHEST PAIN Sodium Chloride () 5 - 15 ml IV UD PRN PRN Reason: SALINE FLUSH Medical Necessity - Tobacco Use Smoking Status: Former smoker Tobacco Use: Cigarettes Assessment/Plan 1. NSTEMI * chest pain didnt recur overnight * troponin trended up from 0.016 on admission to a peak of 12.6 * 2D echo (02/13/19): EF of 37% with moderate aortic stenosis. * Patient had similar event in [place] about 6 weeks ago and was scheduled to have CABG then but this was aborted on account of him getting cellulitis in the left lower extremity where the veins were going to be harvested. * Patient has followed up with Dr. Bae and was scheduled to have a cardiac cath with possible angioplasty next week. * currently on aspirin, plavix and statin as well as carvedilol. * will put on heparin drip; unable to give lovenox therapeutic dose o/a of renal impairment * Dr Dejesus on board; to have cardiac cath on Wednesday * 2. History of gout: on allopurinol 3. CAD: as under 1 4., Combined systolic and diastolic heart failure * EF ius 37% * On lisinopril 10 mg daily, as well as Imdur. Also on carvedilol. Currently not on Lasix. * 5. Type 2 diabetes mellitus: Glipizide on hold. On insulin Lantus 10 units nightly. Insulin sliding scale paradoxically seizures. 6. Hypertension: on carvedilol and lisinopril DVT prophylaxis: heparin drip Code Visit Inpatient E&M: [id number] [facility] L[facility]
--- NOTE | 2019-02-25 13:26 | PCM.CONS.C ---
Problem List (1) NSTEMI (non-ST elevated myocardial infarction) Status: Acute (2) CAD (coronary artery disease) Status: Chronic Qualifiers: Coronary Disease-Associated Artery/Lesion type: [place] artery [place] vs. transplanted heart: [place] heart (3) Aortic valve disease Status: Chronic (4) CHF (congestive heart failure) Status: Chronic Qualifiers: Heart failure type: combined systolic and diastolic (5) Hyperlipidemia Status: Chronic (6) Essential (primary) hypertension Status: Chronic (7) Diabetes mellitus Status: Chronic Reason for Consult Date of Consultation: 02/25/19 History of Present Illness: The patient is a 69 year old white male who has a past history which apparently has included underlying CAD, aortic valve disease/aortic valve stenosis, combined systolic/diastolic mediated CHF, superimposed upon underlying hyperlipidemia, hypertension, diabetes mellitus, who has been undergoing cardiovascular evaluation care both in [place] as well as in [place]. He states while visiting family in [place] he underwent cardiovascular evaluation which included a diagnostic cardiac catheterization. At the time he was recommended, based on findings of multivessel disease and aortic valve disease to have consideration for open heart surgery with CABG and aortic valve replacement. He states prior to his surgery he was subsequently diagnosed with lower extremity cellulitis. Thus he states that surgery was placed on hold. He elected to return to [place] to continue his evaluation and care here. He was evaluated in the outpatient setting on 02-15-19. At that time it appears a tentative plan was made to further assess the patient's with respect to the possibility of avoiding open heart surgery in proceeding with CAD PCI and subsequent aortic valve evaluation and care. In the meantime the patient was continuing medical management. The patient noted that yesterday he developed chest discomfort. He did feel somewhat more short of breath and dyspneic. There was no report of nausea or emesis or overt diuresis. There is no report of near syncope or syncope. He subsequently had himself brought to the hospital (not by EMS) for further evaluation. He was evaluated in the emergency department and subsequently placed in the PCU for further evaluation and care. Based upon his evaluation thus far he has had findings of overall improvement in his symptoms after which he used nitroglycerin sublingual at home. He has also had findings of abnormal cardiac enzymes compatible with an acute non-ST segment elevation NE. His ECG demonstrated initially sinus rhythm with nonspecific ST and T wave changes especially in the inferolateral distribution. Upon repeat these changes appear to be less prominent. He is placed on medical management. Cardiology was consulted to further assist in his evaluation and care. [] Past Medical History Allergies/Adverse Reactions: Allergies metformin Adverse Reaction (Verified 02/24/19 21:34) Elevated LDH and anion gap Home Medications: Ambulatory Orders Medication Instructions Recorded Allopurinol [Zyloprim] 300 mg PO DAILY 04/10/16 amoxicillin 500 mg capsule 500 mg PO .COMPLEX 04/14/18 aspirin 81 mg tablet,delayed 81 mg PO QDAY 04/14/18 release atorvastatin 20 mg tablet 40 mg PO QHS tab 01/25/19 carvedilol 6.25 mg tablet 6.25 mg PO BID 01/25/19 furosemide 40 mg tablet 40 mg PO BID tab 01/25/19 glipizide 5 mg tablet 5 mg PO BID 01/25/19 lisinopril 10 mg tablet 10 mg PO DAILY 01/25/19 multivitamin tablet 1 tab PO DAILY 01/25/19 nitroglycerin 0.4 mg sublingual 0.4 mg SUBLINGUAL Q5-15M PRN 01/25/19 tablet Isosorbide Mononitrate [Isosorbide 30 mg PO DAILY 02/25/19 Mononitrate ER] Past Medical History (Chronic Problems): Chronic Problems (Last Reviewed 02/15/19 @ 09:53 by Sabas Bae MD) CAD (coronary artery disease) (Chronic) Aortic valve disease (Chronic) CHF (congestive heart failure) (Chronic) Diabetes mellitus (Chronic) Non-rheumatic aortic stenosis (Chronic) Atherosclerosis of coronary artery without angina pectoris (Chronic) LAD-90% stenosis, LCx 60% stenosis, RCA 90% stenosis, EF 40%, mod 12/29/18 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) Hyperlipidemia (Chronic) Essential (primary) hypertension (Chronic) Secondary pulmonary arterial hypertension (Chronic) Surgical History: - - T+A, Appendectomy, Inguinal Hernia repair, R TKR, L Knee Surgery Psychiatric History: No pertinent psych hx - *Family History Maternal Family History: Family History (Last Reviewed 02/15/19 @ 09:53 by Sabas Bae MD) Mother Diabetes Hypertension Father Diabetes Hypertension Sister Hypertension Brother Diabetes Hypertension Cancer, Onset Age: 50 CAD (coronary artery disease) History Items: No pertinent history Paternal Family History: Family History (Last Reviewed 02/15/19 @ 09:53 by Sabas Bae MD) Mother Diabetes Hypertension Father Diabetes Hypertension Sister Hypertension Brother Diabetes Hypertension Cancer, Onset Age: 50 CAD (coronary artery disease) History Items: No pertinent history Lives: Alone Smoking Status: Former smoker Tobacco Use: Cigarettes Alcohol: None Drugs: None Review of Systems - Review of Systems General: Denies: Fever, Night Sweats, Fatigue Cardiovascular: Reports: Chest Discomfort, Chest Discomfort at Rest, Shortness of Breath, Shortness of Breath at Rest, Peripheral Edema. Denies: Orthopnea, PND, Palpitations, Lightheadedness, Dizziness, Near Syncope, Syncope Respiratory: Reports: Shortness of Breath. Denies: Cough, Sputum Production, Hemoptysis Gastrointestinal: Denies: Hematemesis, Hematochezia, Melena Genitourinary: Denies: Dysuria, Hematuria Skin: Denies: Rash Subjectve: This is a 69-year-old white male who appears to be resting comfortably at this time in no acute distress. Objective: Vital Signs Temp Pulse Resp BP Pulse Ox 98.3 F 66 18 133/63 H 94 02/25/19 09:30 02/25/19 11:53 02/25/19 09:30 02/25/19 09:30 02/25/19 09:30 Oxygen Flow Rate (L/min) 2 Oxygen Delivery Method Room Air Weight: 286 lb 8 oz Body Mass Index (BMI) 42.3 Intake and Output for Last 24 Hours 02/23/19 02/24/19 02/25/19 23:59 23:59 23:59 Intake Total 900 / 900 Balance 900 / 900 General: Awake, Alert, Oriented x 3, Cooperative, No Acute Distress HEENT: Atraumatic, Normocephalic, PERRL, EOMI, Sclera Non Icteric Oral: Moist Mucosa Neck: Supple, Good ROM, No JVD Lungs: Clear to auscultation Cardiovascular: Regular Rhythm, Normal S1, Dimished A2 Murmur Murmur: Grade 2/6, Harsh, Mid Systolic, LLSB, LVOT, Sternal Notch Vascular: No Carotid Bruits Abdomen: Bowel Sounds Present, Soft, Non Tender Extremities: Trace RLE Edema, Trace LLE Edema Neurological: No Focal Motor or Sensory Deficit Psych/Mental Status: Appropriate 02/24/19 21:37: WBC 10.0, RBC 4.58 L, Hgb 13.6, Hct 42.6, MCV 93.0, MCH 29.7, MCHC 31.9 L, RDW 15.2 H, RDW Differential 51.6 H, Plt Count 214, MPV 10.5, Immature Gran % (Auto) 0.200, Neut % (Auto) 63.9, Lymph % (Auto) 23.8, [place] % (Auto) 9.4, Eos % (Auto) 2.5, Baso % (Auto) 0.2, Absolute Neuts (auto) 6.4, Total Counted Not Reportable 02/24/19 21:37: PT 14.3, INR 1.1 02/24/19 21:37: Sodium 140, Potassium 4.9, Chloride 107, Carbon Dioxide 25.0, Anion Gap 8, BUN 37 H, Creatinine 1.88 H, Est GFR (MDRD) Af Amer 46 L, Est GFR (MDRD) Non-Af 38 L, BUN/Creatinine Ratio 19.7, Glucose 267 H, Calcium 8.2 L, Troponin I 0.016 02/25/19 01:37: Troponin I 7.090 H* 02/25/19 04:19: Sodium 143, Potassium 4.5, Chloride 110 H, Carbon Dioxide 26.0, Anion Gap 7, BUN 36 H, Creatinine 1.62 H, Est GFR (MDRD) Af Amer 54 L, Est GFR (MDRD) Non-Af 45 L, BUN/Creatinine Ratio 22.2 H, Glucose 131 H, Calcium 8.3 L, Troponin I 12.600 H* 02/25/19 04:19: WBC 8.8, RBC 4.33 L, Hgb 12.6 L, Hct 40.3, MCV 93.1, MCH 29.1, MCHC 31.3 L, RDW 14.9 H, RDW Differential 49.8 H, Plt Count 207, MPV 10.4, Immature Gran % (Auto) 0.200, Neut % (Auto) 65.9, Lymph % (Auto) 24.4, [place] % (Auto) 7.4, Eos % (Auto) 1.8, Baso % (Auto) 0.3, Absolute Neuts (auto) 5.8, Total Counted Not Reportable Rhythm: Sinus rhythm EKG: As noted above ECHO: 02-10-19: Left ventricle with global left ventricular systolic dysfunction with estimated LVEF 37%; Decreased diastolic compliance; mild concentric LVH; moderate left atrial enlargement; moderate aortic valve stenosis Stress Test: 01-31-18: Pharmacologic stress nuclear imaging study: Considered negative for stress-induced myocardial ischemia with a gated LVEF of 68%. Cardiac Cath: According to outpatient medical records the patient underwent diagnostic cardiac catheterization on 12/29/2018 with findings of an LVEF of 40%, and LAD with 90% stenosis, and LCx with 60% stenosis, and RCA with 90% stenosis. He was also noted to have what was reported as at least moderate aortic valve stenosis. CXR: Preliminary evaluation: No acute cardiopulmonary disease process appreciated Assessment/Plan 1. Acute non-ST segment elevation NE The patient has experienced an acute non-ST segment elevation NE. His troponin I levels have increased. Follow-up troponin I levels are pending. His ECG changes are as noted above. He is undergone previous noninvasive and invasive evaluation as described above. At the present time he will continue medical therapy. This will include agents such as antiplatelet agents, anticoagulants, nitrates as deemed appropriate, beta-blockers, afterload reducing agents, and lipid-lowering agents. He will need to be considered for reassessment in the cardiac catheterization laboratory with respect to his underlying cardiovascular disease process for the need to continue with either percutaneous revascularization therapy or consideration for surgical based revascularization therapy. 2. CAD The patient has already been diagnosed with CAD. He now presents with findings of an acute non-ST segment elevation NE. He will continue medical management. He will continue noninvasive and invasive evaluation as deemed appropriate. Based upon his studies consideration will be given as to whether or not he is a candidate for catheter-based revascularization therapy or surgical based revascularization therapy. 3. Aortic valve disease/stenosis The patient does have aortic valve stenosis. He is undergone evaluation as described above. At the present time he will continue to be followed. His aortic valve can be reassessed as deemed appropriate either noninvasively or invasively. Consideration might be given for whether or not the patient does require continued conservative medical management and follow-up versus proceeding with some form of aortic valve repair/replacement either surgically or percutaneously in the future. 4. CHF The patient does have a history of CHF. Based upon his noninvasive and invasive studies it appears there is concern this may be combined systolic/diastolic mediated. The present time he appears to be without any acute findings. He will continue medical management as deemed appropriate. 5. Hyperlipidemia The patient will continue lipid-lowering therapy and follow-up. 6. Hypertension The patient will continue to have his blood pressure monitor. His medications can be adjusted as deemed appropriate. Hopefully this will keep his blood pressure under control and avoid any significant hypotension especially in light of his underlying aortic valve disorder. 7. Diabetes mellitus The patient does have a history of diabetes mellitus. He will need continued evaluation care per internal medicine. Of note this may factor in to his cardiovascular evaluation and care as to what form of revascularization therapy may be appropriate for him. Comment: The patient's case was discussed and reviewed with the patient. He was agreeable to this approach. This note was generated with [employer] dictation software. It may contain incorrect words, spelling, and punctuation that were not noted in checking the note before signing.
--- NOTE | 2019-02-25 13:32 | CON.PCM_ITS ---
Problem List (1) NSTEMI (non-ST elevated myocardial infarction) Status: Acute (2) CAD (coronary artery disease) Status: Chronic Qualifiers: Coronary Disease-Associated Artery/Lesion type: [place] artery [place] vs. transplanted heart: [place] heart (3) Aortic valve disease Status: Chronic (4) CHF (congestive heart failure) Status: Chronic Qualifiers: Heart failure type: combined systolic and diastolic (5) Hyperlipidemia Status: Chronic (6) Essential (primary) hypertension Status: Chronic (7) Diabetes mellitus Status: Chronic Reason for Consult Date of Consultation: 02/25/19 History of Present Illness: The patient is a 69 year old white male who has a past history which apparently has included underlying CAD, aortic valve disease/aortic valve stenosis, combined systolic/diastolic mediated CHF, superimposed upon underlying hyperlipidemia, hypertension, diabetes mellitus, who has been undergoing cardiovascular evaluation care both in [place] as well as in [place]. He states while visiting family in [place] he underwent cardiovascular evaluation which included a diagnostic cardiac catheterization. At the time he was recommended, based on findings of multivessel disease and aortic valve disease to have consideration for open heart surgery with CABG and aortic valve replacement. He states prior to his surgery he was subsequently diagnosed with lower extremity cellulitis. Thus he states that surgery was placed on hold. He elected to return to [place] to continue his evaluation and care here. He was evaluated in the outpatient setting on 02-15-19. At that time it appears a tentative plan was made to further assess the patient's with respect to the possibility of avoiding open heart surgery in proceeding with CAD PCI and subsequent aortic valve evaluation and care. In the meantime the patient was continuing medical management. The patient noted that yesterday he developed chest discomfort. He did feel somewhat more short of breath and dyspneic. There was no report of nausea or emesis or overt diuresis. There is no report of near syncope or syncope. He subsequently had himself brought to the hospital (not by EMS) for further evaluation. He was evaluated in the emergency department and subsequently placed in the PCU for further evaluation and care. Based upon his evaluation thus far he has had findings of overall improvement in his symptoms after which he used nitroglycerin sublingual at home. He has also had findings of abnormal cardiac enzymes compatible with an acute non-ST segment elevation [place]. His ECG demonstrated initially sinus rhythm with nonspecific ST and T wave changes especially in the inferolateral distribution. Upon repeat these changes appear to be less prominent. He is placed on medical management. Cardiology was consulted to further assist in his evaluation and care. [] Past Medical History Allergies/Adverse Reactions: Allergies metformin Adverse Reaction (Verified 02/24/19 21:34) Elevated LDH and anion gap Home Medications: Ambulatory Orders Medication Instructions Recorded Allopurinol [Zyloprim] 300 mg PO DAILY 04/10/16 amoxicillin 500 mg capsule 500 mg PO .COMPLEX 04/14/18 aspirin 81 mg tablet,delayed 81 mg PO QDAY 04/14/18 release atorvastatin 20 mg tablet 40 mg PO QHS tab 01/25/19 carvedilol 6.25 mg tablet 6.25 mg PO BID 01/25/19 furosemide 40 mg tablet 40 mg PO BID tab 01/25/19 glipizide 5 mg tablet 5 mg PO BID 01/25/19 lisinopril 10 mg tablet 10 mg PO DAILY 01/25/19 multivitamin tablet 1 tab PO DAILY 01/25/19 nitroglycerin 0.4 mg sublingual 0.4 mg SUBLINGUAL Q5-15M PRN 01/25/19 tablet Isosorbide Mononitrate [Isosorbide 30 mg PO DAILY 02/25/19 Mononitrate ER] Past Medical History (Chronic Problems): Chronic Problems (Last Reviewed 02/15/19 @ 09:53 by Sabas Bae MD) CAD (coronary artery disease) (Chronic) Aortic valve disease (Chronic) CHF (congestive heart failure) (Chronic) Diabetes mellitus (Chronic) Non-rheumatic aortic stenosis (Chronic) Atherosclerosis of coronary artery without angina pectoris (Chronic) LAD-90% stenosis, LCx 60% stenosis, RCA 90% stenosis, EF 40%, mod 12/29/18 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) Hyperlipidemia (Chronic) Essential (primary) hypertension (Chronic) Secondary pulmonary arterial hypertension (Chronic) Surgical History: - - T+A, Appendectomy, Inguinal Hernia repair, R TKR, L Knee Surgery Psychiatric History: No pertinent psych hx - *Family History Maternal Family History: Family History (Last Reviewed 02/15/19 @ 09:53 by Sabas Bae MD) Mother Diabetes Hypertension Father Diabetes Hypertension Sister Hypertension Brother Diabetes Hypertension Cancer, Onset Age: 50 CAD (coronary artery disease) History Items: No pertinent history Paternal Family History: Family History (Last Reviewed 02/15/19 @ 09:53 by Sabas Bae MD) Mother Diabetes Hypertension Father Diabetes Hypertension Sister Hypertension Brother Diabetes Hypertension Cancer, Onset Age: 50 CAD (coronary artery disease) History Items: No pertinent history Lives: Alone Smoking Status: Former smoker Tobacco Use: Cigarettes Alcohol: None Drugs: None Review of Systems - Review of Systems General: Denies: Fever, Night Sweats, Fatigue Cardiovascular: Reports: Chest Discomfort, Chest Discomfort at Rest, Shortness of Breath, Shortness of Breath at Rest, Peripheral Edema. Denies: Orthopnea, PND, Palpitations, Lightheadedness, Dizziness, Near Syncope, Syncope Respiratory: Reports: Shortness of Breath. Denies: Cough, Sputum Production, Hemoptysis Gastrointestinal: Denies: Hematemesis, Hematochezia, Melena Genitourinary: Denies: Dysuria, Hematuria Skin: Denies: Rash Subjectve: This is a 69-year-old white male who appears to be resting comfortably at this time in no acute distress. Objective: Vital Signs Temp Pulse Resp BP Pulse Ox 98.3 F 66 18 133/63 H 94 02/25/19 09:30 02/25/19 11:53 02/25/19 09:30 02/25/19 09:30 02/25/19 09:30 Oxygen Flow Rate (L/min) 2 Oxygen Delivery Method Room Air Weight: 286 lb 8 oz Body Mass Index (BMI) 42.3 Intake and Output for Last 24 Hours 02/23/19 02/24/19 02/25/19 23:59 23:59 23:59 Intake Total 900 / 900 Balance 900 / 900 General: Awake, Alert, Oriented x 3, Cooperative, No Acute Distress HEENT: Atraumatic, Normocephalic, PERRL, EOMI, Sclera Non Icteric Oral: Moist Mucosa Neck: Supple, Good ROM, No JVD Lungs: Clear to auscultation Cardiovascular: Regular Rhythm, Normal S1, Dimished A2 Murmur Murmur: Grade 2/6, Harsh, Mid Systolic, LLSB, LVOT, Sternal Notch Vascular: No Carotid Bruits Abdomen: Bowel Sounds Present, Soft, Non Tender Extremities: Trace RLE Edema, Trace LLE Edema Neurological: No Focal Motor or Sensory Deficit Psych/Mental Status: Appropriate 02/24/19 21:37: WBC 10.0, RBC 4.58 L, Hgb 13.6, Hct 42.6, MCV 93.0, MCH 29.7, MCHC 31.9 L, RDW 15.2 H, RDW Differential 51.6 H, Plt Count 214, MPV 10.5, Immature Gran % (Auto) 0.200, Neut % (Auto) 63.9, Lymph % (Auto) 23.8, [place] % (Auto) 9.4, Eos % (Auto) 2.5, Baso % (Auto) 0.2, Absolute Neuts (auto) 6.4, Total Counted Not Reportable 02/24/19 21:37: PT 14.3, INR 1.1 02/24/19 21:37: Sodium 140, Potassium 4.9, Chloride 107, Carbon Dioxide 25.0, Anion Gap 8, BUN 37 H, Creatinine 1.88 H, Est GFR (MDRD) Af Amer 46 L, Est GFR (MDRD) Non-Af 38 L, BUN/Creatinine Ratio 19.7, Glucose 267 H, Calcium 8.2 L, Troponin I 0.016 02/25/19 01:37: Troponin I 7.090 H* 02/25/19 04:19: Sodium 143, Potassium 4.5, Chloride 110 H, Carbon Dioxide 26.0, Anion Gap 7, BUN 36 H, Creatinine 1.62 H, Est GFR (MDRD) Af Amer 54 L, Est GFR (MDRD) Non-Af 45 L, BUN/Creatinine Ratio 22.2 H, Glucose 131 H, Calcium 8.3 L, Troponin I 12.600 H* 02/25/19 04:19: WBC 8.8, RBC 4.33 L, Hgb 12.6 L, Hct 40.3, MCV 93.1, MCH 29.1, MCHC 31.3 L, RDW 14.9 H, RDW Differential 49.8 H, Plt Count 207, MPV 10.4, Immature Gran % (Auto) 0.200, Neut % (Auto) 65.9, Lymph % (Auto) 24.4, [place] % (Auto) 7.4, Eos % (Auto) 1.8, Baso % (Auto) 0.3, Absolute Neuts (auto) 5.8, Total Counted Not Reportable Rhythm: Sinus rhythm EKG: As noted above ECHO: 02-10-19: Left ventricle with global left ventricular systolic dysfunction with estimated LVEF 37%; Decreased diastolic compliance; mild concentric LVH; moderate left atrial enlargement; moderate aortic valve stenosis Stress Test: 01-31-18: Pharmacologic stress nuclear imaging study: Considered negative for stress- induced myocardial ischemia with a gated LVEF of 68%. Cardiac Cath: According to outpatient medical records the patient underwent diagnostic cardiac catheterization on 12/29/2018 with findings of an LVEF of 40%, and LAD with 90% stenosis, and LCx with 60% stenosis, and RCA with 90% stenosis. He was also noted to have what was reported as at least moderate aortic valve stenosis. CXR: Preliminary evaluation: No acute cardiopulmonary disease process appreciated Assessment/Plan 1. Acute non-ST segment elevation [place] The patient has experienced an acute non-ST segment elevation [place]. His troponin I levels have increased. Follow-up troponin I levels are pending. His ECG changes are as noted above. He is undergone previous noninvasive and invasive evaluation as described above. At the present time he will continue medical therapy. This will include agents such as antiplatelet agents, anticoagulants, nitrates as deemed appropriate, beta-blockers, afterload reducing agents, and lipid-lowering agents. He will need to be considered for reassessment in the cardiac catheterization laboratory with respect to his underlying cardiovascular disease process for the need to continue with either percutaneous revascularization therapy or consideration for surgical based revascularization therapy. 2. CAD The patient has already been diagnosed with CAD. He now presents with findings of an acute non-ST segment elevation [place]. He will continue medical management. He will continue noninvasive and invasive evaluation as deemed appropriate. Based upon his studies consideration will be given as to whether or not he is a candidate for catheter-based revascul arization therapy or surgical based revascularization therapy. 3. Aortic valve disease/stenosis The patient does have aortic valve stenosis. He is undergone evaluation as described above. At the present time he will continue to be followed. His aortic valve can be reassessed as deemed appropriate either noninvasively or invasively. Consideration might be given for whether or not the patient does require continued conservative medical management and follow-up versus proceeding with some form of aortic valve repair/replacement either surgically or percutaneously in the future. 4. CHF The patient does have a history of CHF. Based upon his noninvasive and invasive studies it appears there is concern this may be combined systolic/diastolic mediated. The present time he appears to be without any acute findings. He will continue medical management as deemed appropriate. 5. Hyperlipidemia The patient will continue lipid-lowering therapy and follow-up. 6. Hypertension The patient will continue to have his blood pressure monitor. His medications can be adjusted as deemed appropriate. Hopefully this will keep his blood pressure under control and avoid any significant hypotension especially in light of his underlying aortic valve disorder. 7. Diabetes mellitus The patient does have a history of diabetes mellitus. He will need continued evaluation care per internal medicine. Of note this may factor in to his cardiovascular evaluation and care as to what form of revascularization therapy may be appropriate for him. Comment: The patient's case was discussed and reviewed with the patient. He was agreeable to this approach. This note was generated with [employer] dictation software. It may contain incorrect words, spelling, and punctuation that were not noted in checking the note before signing.
[2019-02-25] MEDS: HEPARIN/D5w 25,000 UNITS 25,000 UNITS/250 ML IV.SOLN. 17 UNITS IV (13:57)
[2019-02-25] MEDS: Clopidogrel Bisulfate 75 MG Tablet PO (14:01)
[2019-02-25 14:20] LABS: Partial Thromboplast Time 35.4 Seconds (24.1-36.2)
--- NOTE | 2019-02-25 14:52 | CM.UR ---
RN CM Assessment Met face to face with patient for initial transition planning/care coordination assessment. Introduced myself and my role. Verb understanding and agreement for assessment. Presentation: Chest pain. Was scheduled for stent placement on 03/06 but began with chest pain yesterday. PCP: Dr. melgar Specialists: Dr. Bae Preferred Pharmacy: [facility]. Insurance: [employer] [facility] Prescription Benefit: Yes LNOK: Martinez Melgar (son), Rachelle Alvarez (daughter) and brother Robert Melgar ([phone]) Home: Apartment. All on one floor. ADLs: Independent with all ADLS and IADLs. Transportation: Self DME: Cane, grab bars SNF/HHC: None Passport/waiver statistical assistant: None. States he has a telephonic nurse case manager that called from his insurance company but he is not sure her name/number. Advance Directives: None on file. Wants to complete his advance directives. When I met with him --I gave him all the forms. We agreed CALDERON Trivedi would go back later to assist in completing them. DC PLAN: Home, NN. Alyssa Marte RN, CCM.
--- NOTE | 2019-02-25 15:35 | CASEMGMT ---
Social Work PCU Reason for consult: advanced directives Referral source: patient Summary: Received call from Christine MOROCHO reporting that patient called out asking for assistance in completing advanced directives. Met with patient in room and introduced to social work role. Patient expresses clearly desire to complete POAHC. Patient declines completion of Living Will. Patient talkative during completion and discussed recent stressors with son. Patient did place son on the POAHC form, but placed the son last. First POAHC is patient's brother, then patient's daughter and then the son. Copy of POAHC placed on chart. Emotional support and supportive encouragement provided this date. Patient declines any other needs at this time. Plan: patient plans to return home at time of discharge. -MARIAELENA Cuellar, BEE RAISER
[2019-02-25 16:31] LABS: Bedside Glucose 132 mg/dL (70-110)
[2019-02-25] MEDS: Atorvastatin Calcium 80 MG Tablet PO (21:17)
[2019-02-25 21:35] LABS: Bedside Glucose 142 mg/dL (70-110)
[2019-02-26] VITALS (11 sets, daily range): BP systolic 133–158; BP diastolic 61–75; PULSE 42–156; RESP 14–18; TEMP 36.7–37; O2SAT 94–96
[2019-02-26] MEDS: HEPARIN/D5w 25,000 UNITS 25,000 UNITS/250 ML IV.SOLN. 17 UNITS IV (02:01)
[2019-02-26 02:35] LABS: Absolute Lymphocyte Count 2.31 X10^3/ul (0.83-4.51); Absolute Neutrophil Count 4.6 X10^3/uL (2.0-7.7); Basophil# 0.02 X10^3/uL; Basophil% 0.3 % (0-1); Eosinophil# 0.32 X10^3/uL; Eosinophils% 4.1 % (0-5); Hematocrit 39.9 % (40-54); Hemoglobin 12.4 g/dl (13.0-16.5); Lymphocyte # 2.31 X10^3/ul (4.0); Lymphocyte % 29.3 % (19-41); Mean Corp Hgb Conc 31.1 g/gl (32-36); Mean Corpuscular Hgb 28.8 pg (27.0-32.0); Mean Corpuscular Volume 92.6 fL (80-94); Mean Platelet Vol. 10.5 fl (6.2-12.0); Monocyte# 0.62 X10^3/uL; Monocyte% 7.9 % (0-10); Neutrophil # 4.59 X10^3/uL (2.7-7.7); Neutrophil % 58.1 % (47-70); Platelet Count 189 K/mm3 (150-450); RBC Distribution Width CV 14.9 % (11.6-14.6); Red Blood Count 4.31 M/mm3 (4.6-6.2); White Blood Count 7.9 K/mm3 (4.4-11.0)
[2019-02-26 02:36] LABS: POSITIVE COUNT NO; POSITIVE DIFFERENTIAL NO; POSITIVE MORPHOLOGY NO
[2019-02-26 02:45] LABS: Anion Gap 7 (5-15); BUN 34 mg/dL (7-18); BUN/Creat Ratio 25.6 RATIO (10-20); Calcium,Total 8.3 mg/dL (8.5-10.1); Chloride 107 mmol/L (98-107); Creatinine, Serum 1.33 mg/dL (0.70-1.30); EST Glomerular Filtration Rate 57 mL/min (>60); Est Glom Filt Rate - Afr Amer 68 mL/min (>60); Estimated Creatinine Clearance 51.68 ml/min; Glucose 129 mg/dL (74-106); Potassium 4.4 mmol/L (3.5-5.1); Sodium Level 139 mmol/L (136-145)
[2019-02-26 02:46] LABS: Partial Thromboplast Time 102.2 Seconds (24.1-36.2)
[2019-02-26 06:51] LABS: Bedside Glucose 131 mg/dL (70-110)
[2019-02-26 08:32] LABS: Partial Thromboplast Time 75.9 Seconds (24.1-36.2)
[2019-02-26] MEDS: Carvedilol 6.25 MG Tablet PO (09:03)
[2019-02-26] MEDS: Aspirin E.C. 81 MG Tablet PO (09:03)
[2019-02-26] MEDS: Isosorbide Mononitrate 30 MG Tablet PO (09:04)
[2019-02-26] MEDS: Lisinopril 10 MG Tablet PO (09:04)
[2019-02-26] MEDS: Allopurinol 300 MG Tablet PO (09:04)
[2019-02-26] MEDS: Clopidogrel Bisulfate 75 MG Tablet PO (09:04)
--- NOTE | 2019-02-26 10:25 | PCM.PN.HOSP ---
Patient Problems: Active and Suspected Problems (Last Reviewed 02/15/19 @ 09:53 by Sabas Bae MD) NSTEMI (non-ST elevated myocardial infarction) (Acute) Subjective: Patient seen and examined. He had an uneventful night and has no complaints. Review of systems otherwise negative. Chest pain did not recur. Theatrical Trouper on board and plan is for patient to have cardiac cath tomorrow. Vitals/I&O's: Vital Signs Temp Pulse Resp BP Pulse Ox 98.6 F 75 18 158/74 H 94 02/26/19 09:00 02/26/19 09:00 02/26/19 09:00 02/26/19 09:00 02/26/19 09:00 Oxygen Flow Rate (L/min) 2 Oxygen Delivery Method Room Air Weight: 286 lb 8 oz Body Mass Index (BMI) 42.3 Intake and Output for Last 24 Hours 02/24/19 02/25/19 02/26/19 23:59 23:59 23:59 Intake Total 1140 / 1140 728 / 728 Balance 1140 / 1140 728 / 728 General: Alert, Oriented x3, Cooperative, No apparent distress HEENT: Atraumatic, PERRLA, EOMI, Normocephalic Oral: Moist Mucosa Neck: Supple, No JVD, Negative Carotid Bruits Lungs: Clear to auscultation, Normal air movement, No rhonchi, No wheeze, No rales Cardiovascular: Regular rate, Regular Rhythm, Normal S1, Normal S2, No murmurs Abdomen: Bowel Sounds Present, Soft, Non Tender, Non-Distended, No Hepato-splenomegaly Extremities: No clubbing, No cyanosis, No edema, Capillary Refill Less than 3 Seconds Skin: No rashes, No breakdown Musculoskeletal: No Tenderness to Palpation of Joints or Extremities Lymphatic: No Cervical, Supraclavicular, or Inguinal Adenopathy Neurological: Cranial nerves II-XII grossly intact, Neuro grossly intact, Motor Exam 5/5 strength throughout Psych/Mental Status: Normal Affect, Appropriate, Alert and oriented to time, place, person, mood and affect Laboratory Results 02/25/19 11:18: POC Glucose 122 H 02/25/19 13:48: APTT 35.4 02/25/19 13:48: Troponin I 8.380 H* 02/25/19 16:24: POC Glucose 132 H 02/25/19 19:40: APTT 77.0 H 02/25/19 21:14: POC Glucose 142 H 02/26/19 02:01: WBC 7.9, RBC 4.31 L, Hgb 12.4 L, Hct 39.9 L, MCV 92.6, MCH 28.8, MCHC 31.1 L, RDW 14.9 H, RDW Differential 49.0 H, Plt Count 189, MPV 10.5, Immature Gran % (Auto) 0.300, Neut % (Auto) 58.1, Lymph % (Auto) 29.3, [place] % (Auto) 7.9, Eos % (Auto) 4.1, Baso % (Auto) 0.3, Absolute Neuts (auto) 4.6, Absolute Lymphs (auto) 2.31, Total Counted Not Reportable 02/26/19 02:01: Sodium 139, Potassium 4.4, Chloride 107, Carbon Dioxide 25.0, Anion Gap 7, BUN 34 H, Creatinine 1.33 H, Estim Creat Clear Calc 51.68, Est GFR (MDRD) Af Amer 68, Est GFR (MDRD) Non-Af 57 L, BUN/Creatinine Ratio 25.6 H, Glucose 129 H, Calcium 8.3 L 02/26/19 02:01: APTT 102.2 H* 02/26/19 06:42: POC Glucose 131 H 02/26/19 08:05: APTT 75.9 H Current Medications Allopurinol (Zyloprim) 300 mg PO DAILY [facility] Last Admin: 02/26/19 09:04 Dose: 300 mg Aspirin (Ecotrin) 81 mg PO DAILY [facility] Last Admin: 02/26/19 09:03 Dose: 81 mg Atorvastatin Calcium (Lipitor) 80 mg PO QHS [facility] Last Admin: 02/25/19 21:17 Dose: 80 mg Carvedilol (Coreg) 6.25 mg PO BID [facility] Last Admin: 02/26/19 09:03 Dose: 6.25 mg Clopidogrel Bisulfate (Plavix) 75 mg PO DAILY [facility] Last Admin: 02/26/19 09:04 Dose: 75 mg Dextrose (D50w Syringe) 0 gm IV X1 PRN; Protocol PRN Reason: Hypoglycemia Glucagon () 1 mg IM .X1 PRN PRN Reason: Hypoglycemia Heparin Sodium (Porcine) (Heparin Na) 0 unit IV UD PRN; Protocol Heparin Sodium/Dextrose () 25,000 units in 250 mls @ 17 mls/hr IV .[id number] [facility]; Protocol Last Admin: 02/26/19 02:01 Dose: 17 mls/hr Insulin Glargine (Lantus (Bkc)) 10 units SC QHS [facility] Last Admin: 02/25/19 21:17 Dose: Not Given Insulin Human Lispro (Humalog Kwikpen (Bk)) 0 unit SQ ACHS [facility]; Protocol Last Admin: 02/26/19 06:56 Dose: Not Given Isosorbide Mononitrate (Imdur) 30 mg PO DAILY [facility] Last Admin: 02/26/19 09:04 Dose: 30 mg Lisinopril (Zestril) 10 mg PO DAILY [facility] Last Admin: 02/26/19 09:04 Dose: 10 mg Magnesium Hydroxide (Milk Of Magnesia) 30 ml PO DAILY PRN PRN Reason: Constipation Nitroglycerin (Nitrostat) 0.4 mg SUBLINGUAL Q5M PRN PRN Reason: CHEST PAIN Sodium Chloride () 5 - 15 ml IV UD PRN PRN Reason: SALINE FLUSH Medical Necessity - Tobacco Use Smoking Status: Former smoker Tobacco Use: Cigarettes Assessment/Plan All Active Problems (Last Reviewed 02/15/19 @ 09:53 by Sabas Bae MD) NSTEMI (non-ST elevated myocardial infarction) (Acute) 1. NSTEMI chest pain didnt recur overnight troponin trended up from 0.016 on admission to a peak of 12.6 2D echo (02/13/19): EF of 37% with moderate aortic stenosis. Patient had similar event in [place] about 6 weeks ago and was scheduled to have CABG then but this was aborted on account of him getting cellulitis in the left lower extremity where the veins were going to be harvested. currently on aspirin, plavix and statin as well as carvedilol and heparin drip for cardiac cath tomorrow cardiology on board 2. History of gout: on allopurinol 3. CAD: as under 1 4., Combined systolic and diastolic heart failure EF is 37%, with LV moderate global systolic dysfunction and stage 1 diastolic dysfunction. On lisinopril 10 mg daily, as well as Imdur. Also on carvedilol. Currently not on Lasix. 5. Type 2 diabetes mellitus: Glipizide on hold. On insulin Lantus 10 units nightly. Insulin sliding scale. Accuchecks ACHS 6. Hypertension: on carvedilol and lisinopril 7. Moderate aortic stenosis echo showed peak aortic valve gradient of 37mmHg and mean aortic valve gradient of 17mmhg; aortic valve area is 1cm2 cardiology on board DVT prophylaxis: heparin drip Code Visit Inpatient E&M: 35783 [facility] Hosp L3
--- NOTE | 2019-02-26 10:29 | PN_ITS ---
Patient Problems: Active and Suspected Problems (Last Reviewed 02/15/19 @ 09:53 by Sabas Bae MD) NSTEMI (non-ST elevated myocardial infarction) (Acute) Subjective: Patient seen and examined. He had an uneventful night and has no complaints. Review of systems otherwise negative. Chest pain did not recur. Stage Rigger on board and plan is for patient to have cardiac cath tomorrow. Vitals/I&O's: Vital Signs Temp Pulse Resp BP Pulse Ox 98.6 F 75 18 158/74 H 94 02/26/19 09:00 02/26/19 09:00 02/26/19 09:00 02/26/19 09:00 02/26/19 09:00 Oxygen Flow Rate (L/min) 2 Oxygen Delivery Method Room Air Weight: 286 lb 8 oz Body Mass Index (BMI) 42.3 Intake and Output for Last 24 Hours 02/24/19 02/25/19 02/26/19 23:59 23:59 23:59 Intake Total 1140 / 1140 728 / 728 Balance 1140 / 1140 728 / 728 General: Alert, Oriented x3, Cooperative, No apparent distress HEENT: Atraumatic, PERRLA, EOMI, Normocephalic Oral: Moist Mucosa Neck: Supple, No JVD, Negative Carotid Bruits Lungs: Clear to auscultation, Normal air movement, No rhonchi, No wheeze, No rales Cardiovascular: Regular rate, Regular Rhythm, Normal S1, Normal S2, No murmurs Abdomen: Bowel Sounds Present, Soft, Non Tender, Non-Distended, No Hepato- splenomegaly Extremities: No clubbing, No cyanosis, No edema, Capillary Refill Less than 3 Seconds Skin: No rashes, No breakdown Musculoskeletal: No Tenderness to Palpation of Joints or Extremities Lymphatic: No Cervical, Supraclavicular, or Inguinal Adenopathy Neurological: Cranial nerves II-XII grossly intact, Neuro grossly intact, Motor Exam 5/5 strength throughout Psych/Mental Status: Normal Affect, Appropriate, Alert and oriented to time, place, person, mood and affect Laboratory Results 02/25/19 11:18: POC Glucose 122 H 02/25/19 13:48: APTT 35.4 02/25/19 13:48: Troponin I 8.380 H* 02/25/19 16:24: POC Glucose 132 H 02/25/19 19:40: APTT 77.0 H 02/25/19 21:14: POC Glucose 142 H 02/26/19 02:01: WBC 7.9, RBC 4.31 L, Hgb 12.4 L, Hct 39.9 L, MCV 92.6, MCH 28.8, MCHC 31.1 L, RDW 14.9 H, RDW Differential 49.0 H, Plt Count 189, MPV 10.5, Immature Gran % (Auto) 0.300, Neut % (Auto) 58.1, Lymph % (Auto) 29.3, [place] % (Auto) 7.9, Eos % (Auto) 4.1, Baso % (Auto) 0.3, Absolute Neuts (auto) 4.6, Absolute Lymphs (auto) 2.31, Total Counted Not Reportable 02/26/19 02:01: Sodium 139, Potassium 4.4, Chloride 107, Carbon Dioxide 25.0, Anion Gap 7, BUN 34 H, Creatinine 1.33 H, Estim Creat Clear Calc 51.68, Est GFR (MDRD) Af Amer 68, Est GFR (MDRD) Non-Af 57 L, BUN/Creatinine Ratio 25.6 H, Glucose 129 H, Calcium 8.3 L 02/26/19 02:01: APTT 102.2 H* 02/26/19 06:42: POC Glucose 131 H 02/26/19 08:05: APTT 75.9 H Current Medications Allopurinol (Zyloprim) 300 mg PO DAILY [facility] Last Admin: 02/26/19 09:04 Dose: 300 mg Aspirin (Ecotrin) 81 mg PO DAILY [facility] Last Admin: 02/26/19 09:03 Dose: 81 mg Atorvastatin Calcium (Lipitor) 80 mg PO QHS [facility] Last Admin: 02/25/19 21:17 Dose: 80 mg Carvedilol (Coreg) 6.25 mg PO BID [facility] Last Admin: 02/26/19 09:03 Dose: 6.25 mg Clopidogrel Bisulfate (Plavix) 75 mg PO DAILY [facility] Last Admin: 02/26/19 09:04 Dose: 75 mg Dextrose (D50w Syringe) 0 gm IV X1 PRN; Protocol PRN Reason: Hypoglycemia Glucagon () 1 mg IM .X1 PRN PRN Reason: Hypoglycemia Heparin Sodium (Porcine) (Heparin Na) 0 unit IV UD PRN; Protocol Heparin Sodium/Dextrose () 25,000 units in 250 mls @ 17 mls/hr IV .[id number] [facility]; Protocol Last Admin: 02/26/19 02:01 Dose: 17 mls/hr Insulin Glargine (Lantus (Bkc)) 10 units SC QHS [facility] Last Admin: 02/25/19 21:17 Dose: Not Given Insulin Human Lispro (Humalog Kwikpen (Bk)) 0 unit SQ ACHS [facility]; Protocol Last Admin: 02/26/19 06:56 Dose: Not Given Isosorbide Mononitrate (Imdur) 30 mg PO DAILY [facility] Last Admin: 02/26/19 09:04 Dose: 30 mg Lisinopril (Zestril) 10 mg PO DAILY [facility] Last Admin: 02/26/19 09:04 Dose: 10 mg Magnesium Hydroxide (Milk Of Magnesia) 30 ml PO DAILY PRN PRN Reason: Constipation Nitroglycerin (Nitrostat) 0.4 mg SUBLINGUAL Q5M PRN PRN Reason: CHEST PAIN Sodium Chloride () 5 - 15 ml IV UD PRN PRN Reason: SALINE FLUSH Medical Necessity - Tobacco Use Smoking Status: Former smoker Tobacco Use: Cigarettes Assessment/Plan All Active Problems (Last Reviewed 02/15/19 @ 09:53 by Sabas Bae MD) NSTEMI (non-ST elevated myocardial infarction) (Acute) 1. NSTEMI * chest pain didnt recur overnight * troponin trended up from 0.016 on admission to a peak of 12.6 * 2D echo (02/13/19): EF of 37% with moderate aortic stenosis. * Patient had similar event in [place] about 6 weeks ago and was scheduled to have CABG then but this was aborted on account of him getting cellulitis in the left lower extremity where the veins were going to be harvested. * currently on aspirin, plavix and statin as well as carvedilol and heparin drip * for cardiac cath tomorrow * cardiology on board * 2. History of gout: on allopurinol 3. CAD: as under 1 4., Combined systolic and diastolic heart failure * EF is 37%, with LV moderate global systolic dysfunction and stage 1 diastolic dysfunction. * On lisinopril 10 mg daily, as well as Imdur. Also on carvedilol. Currently not on Lasix. * 5. Type 2 diabetes mellitus: Glipizide on hold. On insulin Lantus 10 units nightly. Insulin sliding scale. Accuchecks ACHS 6. Hypertension: on carvedilol and lisinopril 7. Moderate aortic stenosis * echo showed peak aortic valve gradient of 37mmHg and mean aortic valve gradient of 17mmhg; aortic valve area is 1cm2 * cardiology on board * DVT prophylaxis: heparin drip Code Visit Inpatient E&M: 42891 [facility] Hosp L3
[2019-02-26] MEDS: Insulin Lispro 100 UNIT/ML INSULN.PEN SQ (12:02)
[2019-02-26 12:11] LABS: Bedside Glucose 179 mg/dL (70-110)
--- NOTE | 2019-02-26 13:08 | PCM.PN.CARD ---
Subjectve: The patient denies ongoing chest discomfort. He denies any acute shortness of breath or dyspnea. He is noted no palpitations. There has been no sensation of dizziness, lightheadedness, and there is been no episodes of near syncope or syncope reported. Objective: Vital Signs Temp Pulse Resp BP Pulse Ox 98.6 F 75 18 158/74 H 94 02/26/19 09:00 02/26/19 09:00 02/26/19 09:00 02/26/19 09:00 02/26/19 09:00 Oxygen Flow Rate (L/min) 2 Oxygen Delivery Method Room Air Weight: 286 lb 8 oz Body Mass Index (BMI) 42.3 Intake and Output for Last 24 Hours 02/24/19 02/25/19 02/26/19 23:59 23:59 23:59 Intake Total 1140 / 1140 968 / 968 Balance 1140 / 1140 968 / 968 General: Awake, Alert, Oriented x 3, Cooperative, No Acute Distress, Obese HEENT: Atraumatic, Normocephalic, PERRL, EOMI, Sclera Non Icteric Oral: Moist Mucosa Neck: Supple, Good ROM, No JVD Lungs: Clear to auscultation Cardiovascular: Regular Rhythm, Normal S1, Normal S2 Murmur Murmur: Grade 3/6, Harsh, Mid Systolic, LLSB, LVOT, Sternal Notch Abdomen: Bowel Sounds Present, Soft, Non Tender Extremities: No edema Psych/Mental Status: Appropriate 02/25/19 13:48: APTT 35.4 02/25/19 13:48: Troponin I 8.380 H* 02/25/19 19:40: APTT 77.0 H 02/26/19 02:01: WBC 7.9, RBC 4.31 L, Hgb 12.4 L, Hct 39.9 L, MCV 92.6, MCH 28.8, MCHC 31.1 L, RDW 14.9 H, RDW Differential 49.0 H, Plt Count 189, MPV 10.5, Immature Gran % (Auto) 0.300, Neut % (Auto) 58.1, Lymph % (Auto) 29.3, [place] % (Auto) 7.9, Eos % (Auto) 4.1, Baso % (Auto) 0.3, Absolute Neuts (auto) 4.6, Total Counted Not Reportable 02/26/19 02:01: Sodium 139, Potassium 4.4, Chloride 107, Carbon Dioxide 25.0, Anion Gap 7, BUN 34 H, Creatinine 1.33 H, Est GFR (MDRD) Af Amer 68, Est GFR (MDRD) Non-Af 57 L, BUN/Creatinine Ratio 25.6 H, Glucose 129 H, Calcium 8.3 L 02/26/19 02:01: APTT 102.2 H* 02/26/19 08:05: APTT 75.9 H Rhythm: Sinus rhythm; sinus pauses (greater than 4 seconds) Medical Necessity - Tobacco Use Smoking Status: Former smoker Tobacco Use: Cigarettes Assessment/Plan 1. Acute non-ST segment elevation [place] The patient has experienced an acute non-ST segment elevation [place]. His troponin I levels have subsequently decreased. He is undergone previous noninvasive and invasive evaluation as described above. At the present time he will continue medical therapy. This will include agents such as antiplatelet agents, anticoagulants, nitrates as deemed appropriate, beta-blockers, afterload reducing agents, and lipid-lowering agents. He will need to be considered for reassessment in the cardiac catheterization laboratory with respect to his underlying cardiovascular disease process for the need to continue with either percutaneous revascularization therapy or consideration for surgical based revascularization therapy. 2. CAD The patient has already been diagnosed with CAD. He now presents with findings of an acute non-ST segment elevation [place]. He will continue medical management. He will continue noninvasive and invasive evaluation as deemed appropriate. Based upon his studies consideration will be given as to whether or not he is a candidate for catheter-based revascularization therapy or surgical based revascularization therapy. 3. Aortic valve disease/stenosis The patient does have aortic valve stenosis. He is undergone evaluation as described above. At the present time he will continue to be followed. His aortic valve can be reassessed as deemed appropriate either noninvasively or invasively. Consideration might be given for whether or not the patient does require continued conservative medical management and follow-up versus proceeding with some form of aortic valve repair/replacement either surgically or percutaneously in the future. 4. CHF The patient does have a history of CHF. Based upon his noninvasive and invasive studies it appears there is concern this may be combined systolic/diastolic mediated. The present time he appears to be without any acute findings. He will continue medical management as deemed appropriate. 5. Sinus pause The patient did have a sinus pauses greater than 4 seconds. It is unclear as to whether he is done this in the past and has not been documented. It is unclear whether this could be related to his acute coronary syndrome event. At the present time he remains on a beta-trav. His dose will be decreased. Following his evaluation and care his dose can be readjusted as deemed appropriate. If he continues with evidence of conduction system disease despite evaluation care of underlying CAD/valvular related issues then he may need to be considered in the future for permanent pacemaker support. 6. Hyperlipidemia The patient will continue lipid-lowering therapy and follow-up. 7. Hypertension The patient will continue to have his blood pressure monitor. His medications can be adjusted as deemed appropriate. Hopefully this will keep his blood pressure under control and avoid any significant hypotension especially in light of his underlying aortic valve disorder. 8. Diabetes mellitus The patient does have a history of diabetes mellitus. He will need continued evaluation care per internal medicine. Of note this may factor in to his cardiovascular evaluation and care as to what form of revascularization therapy may be appropriate for him. Comment: The patient's case was discussed and reviewed with the patient. He was agreeable to this approach. This note was generated with [employer] software. It may contain incorrect words, spelling, and punctuation that were not noted in checking the note before signing.
--- NOTE | 2019-02-26 13:12 | PN.CARD_ITS ---
Subjectve: The patient denies ongoing chest discomfort. He denies any acute shortness of breath or dyspnea. He is noted no palpitations. There has been no sensation of dizziness, lightheadedness, and there is been no episodes of near syncope or syncope reported. Objective: Vital Signs Temp Pulse Resp BP Pulse Ox 98.6 F 75 18 158/74 H 94 02/26/19 09:00 02/26/19 09:00 02/26/19 09:00 02/26/19 09:00 02/26/19 09:00 Oxygen Flow Rate (L/min) 2 Oxygen Delivery Method Room Air Weight: 286 lb 8 oz Body Mass Index (BMI) 42.3 Intake and Output for Last 24 Hours 02/24/19 02/25/19 02/26/19 23:59 23:59 23:59 Intake Total 1140 / 1140 968 / 968 Balance 1140 / 1140 968 / 968 General: Awake, Alert, Oriented x 3, Cooperative, No Acute Distress, Obese HEENT: Atraumatic, Normocephalic, PERRL, EOMI, Sclera Non Icteric Oral: Moist Mucosa Neck: Supple, Good ROM, No JVD Lungs: Clear to auscultation Cardiovascular: Regular Rhythm, Normal S1, Normal S2 Murmur Murmur: Grade 3/6, Harsh, Mid Systolic, LLSB, LVOT, Sternal Notch Abdomen: Bowel Sounds Present, Soft, Non Tender Extremities: No edema Psych/Mental Status: Appropriate 02/25/19 13:48: APTT 35.4 02/25/19 13:48: Troponin I 8.380 H* 02/25/19 19:40: APTT 77.0 H 02/26/19 02:01: WBC 7.9, RBC 4.31 L, Hgb 12.4 L, Hct 39.9 L, MCV 92.6, MCH 28.8, MCHC 31.1 L, RDW 14.9 H, RDW Differential 49.0 H, Plt Count 189, MPV 10.5, Immature Gran % (Auto) 0.300, Neut % (Auto) 58.1, Lymph % (Auto) 29.3, Williams % (Auto) 7.9, Eos % (Auto) 4.1, Baso % (Auto) 0.3, Absolute Neuts (auto) 4.6, Total Counted Not Reportable 02/26/19 02:01: Sodium 139, Potassium 4.4, Chloride 107, Carbon Dioxide 25.0, Anion Gap 7, BUN 34 H, Creatinine 1.33 H, Est GFR (MDRD) Af Amer 68, Est GFR (MDRD) Non-Af 57 L, BUN/Creatinine Ratio 25.6 H, Glucose 129 H, Calcium 8.3 L 02/26/19 02:01: APTT 102.2 H* 02/26/19 08:05: APTT 75.9 H Rhythm: Sinus rhythm; sinus pauses (greater than 4 seconds) Medical Necessity - Tobacco Use Smoking Status: Former smoker Tobacco Use: Cigarettes Assessment/Plan 1. Acute non-ST segment elevation KS The patient has experienced an acute non-ST segment elevation KS. His troponin I levels have subsequently decreased. He is undergone previous noninvasive and invasive evaluation as described above. At the present time he will continue medical therapy. This will include agents such as antiplatelet agents, anticoagulants, nitrates as deemed appropriate, beta-blockers, afterload reducing agents, and lipid-lowering agents. He will need to be considered for reassessment in the cardiac catheterization laboratory with respect to his underlying cardiovascular disease process for the need to continue with either percutaneous revascularization therapy or cons ideration for surgical based revascularization therapy. 2. CAD The patient has already been diagnosed with CAD. He now presents with findings of an acute non-ST segment elevation KS. He will continue medical management. He will continue noninvasive and invasive evaluation as deemed appropriate. Based upon his studies consideration will be given as to whether or not he is a candidate for catheter-based revascularization therapy or surgical based revascularization therapy. 3. Aortic valve disease/stenosis The patient does have aortic valve stenosis. He is undergone evaluation as described above. At the present time he will continue to be followed. His aortic valve can be reassessed as deemed appropriate either noninvasively or invasively. Consideration might be given for whether or not the patient does require continued conservative medical management and follow-up versus proceeding with some form of aortic valve repair/replacement either surgically or percutaneously in the future. 4. CHF The patient does have a history of CHF. Based upon his noninvasive and invasive studies it appears there is concern this may be combined systolic/diastolic mediated. The present time he appears to be without any acute findings. He will continue medical management as deemed appropriate. 5. Sinus pause The patient did have a sinus pauses greater than 4 seconds. It is unclear as to whether he is done this in the past and has not been documented. It is unclear whether this could be related to his acute coronary syndrome event. At the present time he remains on a beta-trav. His dose will be decreased. Following his evaluation and care his dose can be readjusted as deemed appropriate. If he continues with evidence of conduction system disease despite evaluation care of underlying CAD/valvular related issues then he may need to be considered in the future for permanent pacemaker support. 6. Hyperlipidemia The patient will continue lipid-lowering therapy and follow-up. 7. Hypertension The patient will continue to have his blood pressure monitor. His medications can be adjusted as deemed appropriate. Hopefully this will keep his blood pressure under control and avoid any significant hypotension especially in light of his underlying aortic valve disorder. 8. Diabetes mellitus The patient does have a history of diabetes mellitus. He will need continued evaluation care per internal medicine. Of note this may factor in to his cardiovascular evaluation and care as to what form of revascularization therapy may be appropriate for him. Comment: The patient's case was discussed and reviewed with the patient. He was agreeable to this approach. This note was generated with [employer] dictation software. It may contain incorrect words, spelling, and punctuation that were not noted in checking the note before signing.
[2019-02-26 15:30] LABS: Partial Thromboplast Time 73.5 Seconds (24.1-36.2)
[2019-02-26 16:55] LABS: Bedside Glucose 105 mg/dL (70-110)
[2019-02-26] MEDS: HEPARIN/D5w 25,000 UNITS 25,000 UNITS/250 ML IV.SOLN. 15 UNITS IV (20:10)
[2019-02-26 21:36] LABS: Bedside Glucose 135 mg/dL (70-110)
[2019-02-26] MEDS: Atorvastatin Calcium 80 MG Tablet PO (21:40)
[2019-02-26] MEDS: Carvedilol 3.125 MG TABLET PO (21:40)
[2019-02-27] VITALS (25 sets, daily range): BP systolic 122–163; BP diastolic 58–101; PULSE 38–80; RESP 15–21; TEMP 36.6–36.8; O2SAT 93–96; BMI 42.3; BMI 42.2
[2019-02-27 03:04] LABS: Bacteria 0 SEEN /hpf (None Seen); Mucous, Urine 0 SEEN /hpf (<or=2+); Red Blood Cells-Urine 0 SEEN /hpf (0-5); Squamous Epithelial Cells - UA 0 SEEN /hpf (0-5); White Blood Cells 0 SEEN /hpf (0-5)
[2019-02-27 03:05] LABS: Color, Urine Yellow (Yellow); Glucose, Dipstick Normal (Normal); Ketone-Dipstick Negative (Negative); Leukocyte Esterase-Dipstick Negative /ul (Negative); Nitrite-Dipstick Negative (Negative); Occult Blood-Urine Negative /ul (Negative); Protein-Dipstick Negative (Negative); Specific Gravity, Urine 1.015 (1.002-1.030); Urine Bilirubin Dipstick Negative (Negative); Urine Clarity Clear (Clear); Urine Urobilinogen Normal (Normal); Urine pH 6.5 (5.0 - 8.0)
[2019-02-27 05:42] LABS: Absolute Lymphocyte Count 1.57 X10^3/ul (0.83-4.51); Absolute Neutrophil Count 4.8 X10^3/uL (2.0-7.7); Basophil# 0.02 X10^3/uL; Basophil% 0.3 % (0-1); Eosinophil# 0.27 X10^3/uL; Eosinophils% 3.7 % (0-5); Hematocrit 39.9 % (40-54); Hemoglobin 12.7 g/dl (13.0-16.5); Lymphocyte # 1.57 X10^3/ul (4.0); Lymphocyte % 21.7 % (19-41); Mean Corp Hgb Conc 31.8 g/gl (32-36); Mean Corpuscular Hgb 29.5 pg (27.0-32.0); Mean Corpuscular Volume 92.8 fL (80-94); Mean Platelet Vol. 10.3 fl (6.2-12.0); Monocyte# 0.56 X10^3/uL; Monocyte% 7.7 % (0-10); Neutrophil # 4.79 X10^3/uL (2.7-7.7); Neutrophil % 66.3 % (47-70); Platelet Count 187 K/mm3 (150-450); RBC Distribution Width CV 14.8 % (11.6-14.6); RBC Distribution Width SD 48.6 fl (35.1-43.9); White Blood Count 7.2 K/mm3 (4.4-11.0)
[2019-02-27 05:46] LABS: POSITIVE COUNT NO; POSITIVE DIFFERENTIAL NO; POSITIVE MORPHOLOGY NO
--- NOTE | 2019-02-27 05:55 | EKG12_ITS ---
Test Reason : ADM EKG Blood Pressure : / mmHG Vent. Rate : 072 BPM Atrial Rate : 072 BPM P-R Int : 184 ms QRS Dur : 090 ms QT Int : 374 ms P-R-T Axes : 039 028 077 degrees QTc Int : 409 ms Normal sinus rhythm Nonspecific T wave abnormality Abnormal ECG Confirmed by DANIELA MOYER, BRICE ([id number]), medical editor EDYTA NEIL ([id number]) on 02/28/2019 11:36:07 AM Referred By: Sabas Bae Confirmed By:BRICE SUAREZ MD
[2019-02-27 06:05] LABS: Anion Gap 8 (5-15); BUN 27 mg/dL (7-18); BUN/Creat Ratio 20.1 RATIO (10-20); Calcium,Total 8.5 mg/dL (8.5-10.1); Chloride 106 mmol/L (98-107); Creatinine, Serum 1.34 mg/dL (0.70-1.30); EST Glomerular Filtration Rate 56 mL/min (>60); Est Glom Filt Rate - Afr Amer 68 mL/min (>60); Glucose 136 mg/dL (74-106); Potassium 4.6 mmol/L (3.5-5.1); Sodium Level 139 mmol/L (136-145)
[2019-02-27] MEDS: Aspirin E.C. 81 MG Tablet PO (06:11)
[2019-02-27] MEDS: Lisinopril 10 MG Tablet PO (06:11)
[2019-02-27] MEDS: Isosorbide Mononitrate 30 MG Tablet PO (06:11)
[2019-02-27] MEDS: Carvedilol 3.125 MG TABLET PO ×2 (06:11→22:02)
[2019-02-27] MEDS: Clopidogrel Bisulfate 75 MG Tablet PO (06:11)
[2019-02-27] MEDS: 0.9% Normal Saline 1,000 ML 15 ML IV (06:13)
[2019-02-27 06:46] LABS: Bedside Glucose 132 mg/dL (70-110)
[2019-02-27 07:09] LABS: International Normalized Ratio 1.1; Prothrombin Time (Protime)PT. 14.2 SECONDS (11.7-14.9)
[2019-02-27 07:10] LABS: Partial Thromboplast Time 29.1 Seconds (24.1-36.2)
--- NOTE | 2019-02-27 09:00 | ECHOTEE_ITS ---
Reason For Study: MURMUR Medication JAN probe passed with minimal difficulty. No complications were noted. Cetacaine Topical [place] given X2 orally. Versed 2 mg given slow IVP. Fentanyl 25 mcg given slow IVP. [id number] gargled and swallowed. Performed a rapid injection of agitated mix of 9 cc saline and 1cc air to assess for atrial septal defect. Left Ventricle Mildly dilated left ventricle. The estimated ejection fraction is 35 %. There is moderate global hypokinesis of the left ventricle. Right Ventricle Normal size and thickness. The right ventricular wall motion is normal. Atria Normal atrial septum. Bubble contrast study negative for right to left interatrial shunt. Normal left atrium. No thrombus is detected in the left atrial appendage. Normal right atrium. Mitral Valve The mitral valve is structurally normal. No prolapse or stenosis seen. Mild-Moderate (1-2+) eccentric mitral valve insufficiency. Tricuspid Valve Normal tricuspid valve. Unable to estimate RV systolic pressure due to inadequate jet, pulmonary artery pressure probably normal. Aortic Valve Trisinus/trileaflet aortic valve. Moderate diffuse aortic valve thickening. Moderate restriction of the aortic valve. Moderate aortic stenosis. Calculated aortic valve area (continuity equation) is 1.4-1.9 cm2. Mild (1+) aortic valve insufficiency. Pulmonic Valve Normal pulmonic valve. Vessels Normal aortic root. Mild atherosclerosis of the aortic arch. The pulmonary artery is normal size. Normal pulmonary veins. Doppler Measurements & Calculations Ao V2 max: 266.2 cm/sec Ao V2 mean: 169.8 cm/sec Ao V2 VTI: 61.1 cm Interpretation Summary Mildly dilated left ventricle. The estimated ejection fraction is 35 %. There is moderate global hypokinesis of the left ventricle. Bubble contrast study negative for right to left interatrial shunt. Mild-Moderate (1-2+) eccentric mitral valve insufficiency. Unable to estimate RV systolic pressure due to inadequate jet, pulmonary artery pressure probably normal. Moderate aortic stenosis. Calculated aortic valve area (continuity equation) is 1.4-1.9 cm2 by planimetry. Peak/mean gradient was 28/14 mm Hg respectively, but probably underestimated given angle of acquisition. Mild (1+) aortic valve insufficiency. No thrombus is detected in the left atrial appendage. Ordering Physician: Tomasz Dejesus Referring Physician: DIPIKA PETERS Performed By: Madelyn Juarez RDCS
--- NOTE | 2019-02-27 09:49 | CASEMGMT ---
According to the [facility] website, the following are in-network tertiary facilities: [facility], [facility], [facility], [place], [facility], [facility], [place], [facility], and . Karlos MOROCHO CM
--- NOTE | 2019-02-27 12:19 | CL.I_ITS ---
Patient Name: RONNIE DEE Study Date: 02/27/2019 Performing: Ronnie Ball MD Ht: 69 inches 175 cm : 1950 Wt: 287 lbs 130 kg Age: 69 Gender: male BSA: 2.4 PROCEDURE(S) PERFORMED HD70-SNW/LHC/COR/LV [id number] W OR WO PTCA, SINGLE CORONARY ARTERY IO30-ISM W OR WO PTCA, EACH ADD'L ARTERY, SAME MAJOR CLINICAL PROFILE AND CO-MORBIDITIES Patient presents with NSTEMI for urgent cardiac cath Indications: ACS > 24 hrs, Stable Known CAD, Valvular Disease, LV Dysfunction Heart Failure: NYHA Class: 2, Newly Diagnosed: No, Heart Failure Type: Systolic Stress/Imaging Stress/Image Study Performed: No Angina Classification Anginal Classification w/in 2 Weeks: CCS IV CAD Presentations: Unstable angina. Comorbidities/Risk Factors: Hypertension Dyslipidemia Prior CHF Diabetes Mellitus: Diabetes Therapy: Insulin CONCLUSIONS Segmented LV systolic dysfunction- Moderate Triple vessel CAD of the RCA, LAD, AND LCX The patient has pulmonary hypertension which is mild. Right heart pressures - mildly elevated Successful PTCA/TAMIA of proximal RPL branch using a 2.25 x 12 Promus Synergy; 75%-->0%, no dissection. Successful PTCA/TAMIA distal RCA with a 2.5 x 16 Promus Synergy, post dilated with a 3.0 x 8 NC Balloon ; 75%-->0%, no dissection. Successful PTCA/TAMIA mid RCA with a 2.5 x 32 Promus Synergy, post dilated throughout with a 3.0, 3.5 a nd 3.75 NC Balloon; 85%-->0%, no dissection. RECOMMENDATIONS Referred for immediate PCI Either stress echo to eval LAD or return for FFR of LAD and OM#2 Highly recommend quitting all tobacco products Follow up with primary boilermaker's assistant Risk factor modification ASA Indefinitley Plavix for at least 12 months Routine post interventional care Refer for Outpatient Cardiac Rehab Manual sheath removal per protocol Follow up with Dr. Bae Consider stress echo in 3 weeks to eval LAD and OM lesions for PCI vs elective FFR eval of LAD and L CX. JAN today showed moderate aortic stenosis, and pullback of LV catheter showed mild with peak to peak gradient. Successful Mynx closure of RFA. DESCRIPTION OF PROCEDURE The patient arrived to the procedure lab. The risks and benefits of the procedure as well as a full d escription of our services here and lack of surgical backup were fully explained to the patient and/o r their significant other prior to the catheterization. The Timeout was completed, verifying the betsy ect patient and procedure. The patient's procedural site was prepped and draped in the usual fashion. Local anesthetic was given subcutaneously to right groin region with Lidocaine 2%. Using a modified Seldinger technique, arterial access was obtained via the right femoral artery, a 4Fr sheath was inse rted. Venous access was obtained via the right femoral vein, a 7Fr sheath was inserted. A 7Fr thermal dilution catheter was inserted and right heart pressures were recorded, it was then advanced to PA p osition for cardiac outputs. Thermal dilution cardiac outputs were then recorded. O2 saturations were then obtained. The Thermal dilution catheter was then removed. Left Ventriculography was performed in GAN projection using a 4 Fr. Pigtail catheter. Simultaneous pressures were then recorded . LV to AO pullback pressures were then recorded. Left Coronary Artery selective angiography was perf ormed in multiple views using a 4 Fr. JL5 catheter. Right Coronary Artery selective angiography was t hen performed in multiple views using a 4 Fr. 3DRC catheterThe images were reviewed and options discu ssed. A decision was then made to proceed with an Intervention, IVUS or other adjunct procedure. Arterial sheath was exchanged for a 6 Fr Sheath. al 1.0 Guide catheter was inserted and engaged i nto the RCA. runthrough Guide wire was advanced to the RCA. Angiogram performed pre balloon dilatatio n. emerge 2.00 x 12 Balloon catheter was advanced across lesion in the posterior descending, proximal . PTCA balloon inflated at 8 atms for 14 secs. emerge 2.00 x 12 Balloon catheter was advanced across lesion in the right coronary, distal. PTCA balloon inflated at 8 atms for 10 secs. PTCA balloon infla kole at 8 atms for 10 secs. PTCA balloon inflated at 10 atms for 20 secs. PTCA balloon inflated at 10 atms for 11 secs. Angiogram performed post balloon dilatation. emerge 2.00 x 12 Balloon catheter was advanced across lesion in the right coronary, mid. PTCA balloon inflated at 10 atms for 11 secs. Ball oon catheter was advanced across lesion in the right coronary, mid. PTCA balloon inflated at 8 atms f or 11 secs. PTCA balloon inflated at 8 atms for 17 secs. PTCA balloon inflated at 10 atms for 14 secs. PTCA balloon inflated at 10 atms for 11 secs. synergy 2.25 x 12 Drug Eluting stent was a dvanced across the lesion in the posterior descending, proximal. Angiogram performed pre stent deploy ment. Angiogram performed post stent deployment. synergy 2.5 x 16 Drug Eluting stent was advanced acr oss the lesion in the right coronary, distal. Angiogram performed post stent deployment. synergy 2.5 x 32 Drug Eluting stent was advanced across the lesion in the right coronary, mid. Angiogram performe d post stent deployment. nc emerge 3.5 x 12 Balloon catheter was inserted post stent to mid rca nc em erge 3.00 x 8 Balloon catheter was inserted post stent to mid rca PTCA balloon inflated at 18 atms fo r 13 secs. Angiogram performed post balloon dilatation. nc emerge 3.5 x 8 Balloon catheter was insert ed post stent. Angiogram performed post balloon dilatation. nc emerge 3.75 x 12 Balloon catheter was inserted post stent. Angiogram performed post balloon dilatation. Contrast was injected through the sheath and the Right Iliac and Femoral artery were assessed for possible closure device. The arterial sheath was pulled and a Mynx closure device was deployed for hemostasis CORONARY ANGIOGRAPHY DOMINANCE: Right Dominant LEFT HEART ASSESSMENT Left Ventricular Ejection Fraction: by LV Gram 35 % Depressed Left Ventricular systolic function LVEDP: 21 mmHg Elevated Left Ventricular End Diastolic Pressure Inferior Mid Hypokinesis - Moderate RIGHT HEART ASSESSMENT Thermal CO: 7.68 Thermal CI: 3.2 Priyank CO: 6.85 Priyank CI: 2.85 PW: 16/11 11 PA: 44/7 24 RV: 40/1 9 RA: 10 6 PVR: 135 SVR: 885 Right Heart pressures - elevated Pulmonary Hypertension Mild LEFT MAIN: Angiographically normal LEFT ANTERIOR DECENDING ARTERY: PROX LAD: Mild luminal irregularities less than 30% MID LAD: 70 % Stenosis, after bifurcation of moderate sized DIAG DIAGONAL 1: Proximal - Mild luminal irregularities less than 30% CIRCUMFLEX ARTERY: PROX CIRC: Mild luminal irregularities less than 30% MID CIRC: 70 % Stenosis DISTAL CIRC: 75 % Stenosis OM 2: Proximal - 70 % Stenosis RIGHT CORONARY ARTERY: MID RCA: 85 % Stenosis DISTAL RCA: 75 % Stenosis RT PLV: 75 % Stenosis VALVE FINDINGS: Aortic Valve Stenosis - mild to moderate INTERVENTION INFORMATION LESION SITE: RPL (1st) Lesion Complexity: Non-High/Non-C, lesion at bifurcation: No, thrombus present: No, lesion length: 12 mm, culprit lesion: No Pre Stenosis: 75 % Pre intervention VICTOR M flow: 3 PROCEDURE: Drug Eluting Stent with pre dilatation. Post Stenosis: 0 % Post intervention VICTOR M flow: 3 Lesion Devices: Krish Sci EMERGE MR 2.00x12 BALLOON Krish Sci Synergy MR TAMIA 2.25x12 Krish Sci NC EMERGE MR 3.50x12 BALLOON LESION SITE: RCA (Distal) Lesion Complexity: Non-High/Non-C, lesion at bifurcation: No, thrombus present: No, lesion length: 16 mm, culprit lesion: No Pre Stenosis: 75 % Pre intervention VICTOR M flow: 3 PROCEDURE: Drug Eluting Stent with pre and post dilatation Post Stenosis: 0 % Post intervention VICTOR M flow: 3 Lesion Devices: Krish Sci EMERGE MR 2.00x12 BALLOON Krish Sci Synergy MR TAMIA 2.50x16 LESION SITE: RCA (Mid) Lesion Complexity: High/C, lesion at bifurcation: No, thrombus present: No, culprit lesion: Yes Pre Stenosis: 85 % Pre intervention VICTOR M flow: 3 PROCEDURE: Drug Eluting Stent with pre and post dilatation 0 % Post intervention VICTOR M flow: 3 Lesion Devices: Krish Sci EMERGE MR 2.50x12 BALLOON Krish Sci Synergy MR TAMIA 2.50x32 Krish Sci NC EMERGE MR 3.75x12 BALLOON Krish Sci NC EMERGE MR 3.00x08 BALLOON Krish Sci NC EMERGE MR 3.50x08 BALLOON COMPLICATIONS No Complications PROCEDURE MEDICATIONS Oxygen: 2 L/min via nasal cannula Heparin 6000 unit(s) IV 02/27/2019 10:39:02 Nitro 200 mcg IC 02/27/2019 11:24:37 SUMMARY OF HEMODYNAMIC DATA Time AIR REST ECG 10:01:06 RA 10/10 (6) SV 10:18:50 RV 40/1, 9 10:19:02 PA 44/7 (24) PA 10:19:49 PW 16/11 (11) PV 10:21:45 LV 150/-15, 19 10:26:22 LV 151/-12, 21 10:26:29 LV 153/-15, 18 10:27:11 PW 13/8 (9) 10:27:11 LV 144/-15, 19 10:27:18 PW 13/8 (8) 10:27:18 LV 144/-12, 17 10:27:45 RV 42/-1, 6 10:27:45 LV 155/-1, 21 10:29:08 LV 155/-10, 26 10:29:14 LVp 151/-10, 29 10:29:20 AOp 141/64 (94) 10:29:25 AO 115/73 (91) SA 10:31:20 Type SV CO (l/m) CI (l/m/ HR Time AIR REST Thermal 118.20 7.68 3.20 65 10:01:06 Priyank 105.40 6.85 2.85 65 10:01:06 Label % O2 Pres/Loc Time AIR REST AO 93 PV 10:35:33 PA 66 PA 10:35:45 Signed By Ronnie Ball MD On 02/27/2019 12:17:57 PM Ronnie Ball MD
[2019-02-27 12:25] LABS: Base Excess -3 mmol/L (-2 to +2); Bicarbonate 22.6 mmol/L (22-26); Blood Gas Specimen Type ART; PO2 72 mmHG (75-100); SO2 93 % (95-99); Total Carbon Dioxide 24 mmol/L; pCO2 41.3 mmHg (35-45); pH 7.35 (7.35-7.45)
[2019-02-27 12:25] LABS: Blood Gas Specimen Type VEN; VBG BASE EXCESS -1 mmol/L (-1.0-3.5); VBG Bicarbonate 25 mmol/L (22-26); VBG Oxygen Content 26 mmol/L (23-33); VBG PO2 36 mmHg (25-40); VBG SO2 65 % (50-70); VBG pCO2 45.8 mmHg (41-51); VBG pH 7.34 (7.32-7.42)
[2019-02-27 12:25] LABS: Blood Gas Specimen Type VEN; VBG BASE EXCESS -1 mmol/L (-1.0-3.5); VBG Bicarbonate 25 mmol/L (22-26); VBG Oxygen Content 26 mmol/L (23-33); VBG PO2 37 mmHg (25-40); VBG SO2 67 % (50-70); VBG pCO2 45.1 mmHg (41-51); VBG pH 7.35 (7.32-7.42)
[2019-02-27 12:25] LABS: ACT Activated Clotting Time 180 sec (74-137)
--- NOTE | 2019-02-27 12:26 | EKG12_ITS ---
Test Reason : HEART CATH Blood Pressure : / mmHG Vent. Rate : 071 BPM Atrial Rate : 071 BPM P-R Int : 184 ms QRS Dur : 094 ms QT Int : 396 ms P-R-T Axes : 066 041 034 degrees QTc Int : 430 ms Normal sinus rhythm Normal ECG When compared with ECG of 27-FEB-2019 05:16, MANUAL COMPARISON REQUIRED, DATA IS UNCONFIRMED Confirmed by PAT ROSS ([id number]), editor map YANET EFLDER ([id number]) on 03/06/2019 2:28:43 PM Referred By: ROSI Confirmed By:CHIN ROSS
[2019-02-27] MEDS: 0.9% Normal Saline 1,000 ML 150 ML IV (13:00)
--- NOTE | 2019-02-27 13:46 | PCM.PN.HOSP ---
Patient Problems: Active and Suspected Problems (Last Updated 02/27/19 @ 12:42 by Mable Ramos) NSTEMI (non-ST elevated myocardial infarction) (Acute) Subjective: Patient had cardiac cath today which showed triple-vessel coronary artery disease. Patient had with PCI to proximal RPL and mid RCA and distal RCA Moderate segmental systolic dysfunction. Mild to moderate . Inferior mid inferior wall hypokinesis. EF 35% by LV gram Vitals/I&O's: Vital Signs Temp Pulse Resp BP Pulse Ox 98.0 F 72 18 141/65 H 96 02/27/19 13:30 02/27/19 13:30 02/27/19 13:30 02/27/19 13:30 02/27/19 13:30 Oxygen Flow Rate (L/min) 2 Oxygen Delivery Method Room Air Weight: 286 lb 8 oz Body Mass Index (BMI) 42.3 Intake and Output for Last 24 Hours 02/25/19 02/26/19 02/27/19 23:59 23:59 23:59 Intake Total 1140 / 1140 1208 / 1208 565.4 / 565.4 Balance 1140 / 1140 1208 / 1208 565.4 / 565.4 General: Alert, Oriented x3, Cooperative HEENT: Atraumatic, PERRLA, EOMI, Normocephalic Neck: Supple, No JVD, Negative Carotid Bruits Lungs: Clear to auscultation, Normal air movement, No rhonchi, No wheeze, No rales Cardiovascular: Regular rate, No murmurs Abdomen: Bowel Sounds Present, Soft, Non Tender, Non-Distended Extremities: No edema, Capillary Refill Less than 3 Seconds Skin: No rashes, No breakdown, - - Right groin cath access site. No hematoma. Small scab over left mid marquis Musculoskeletal: No Tenderness to Palpation of Joints or Extremities, Arthritic Changes - Bilateral TKR Lymphatic: No Cervical, Supraclavicular, or Inguinal Adenopathy Neurological: Cranial nerves II-XII grossly intact, Deep Tendon Reflexes 2+/4 and Symmetrical, Neuro grossly intact Psych/Mental Status: Normal Affect, Appropriate Laboratory Results 02/26/19 14:28: APTT 73.5 H 02/26/19 16:48: POC Glucose 105 02/26/19 20:40: Urine Color Yellow, Urine Clarity Clear, Urine pH 6.5, Ur Specific [place] 1.015, Urine Protein Negative, Urine Glucose (UA) Normal, Urine Ketones Negative, Urine Occult Blood Negative, Urine Nitrite Negative, Urine Bilirubin Negative, Urine Urobilinogen Normal, Ur Leukocyte Esterase Negative, Urine RBC 0 SEEN, Urine WBC 0 SEEN, Ur Squamous Epith Cells 0 SEEN, Urine Bacteria 0 SEEN, Urine Mucus 0 SEEN 02/26/19 21:19: POC Glucose 135 H 02/27/19 05:20: WBC 7.2, RBC 4.30 L, Hgb 12.7 L, Hct 39.9 L, MCV 92.8, MCH 29.5, MCHC 31.8 L, RDW 14.8 H, RDW Differential 48.6 H, Plt Count 187, MPV 10.3, Immature Gran % (Auto) 0.300, Neut % (Auto) 66.3, Lymph % (Auto) 21.7, Cotton % (Auto) 7.7, Eos % (Auto) 3.7, Baso % (Auto) 0.3, Absolute Neuts (auto) 4.8, Absolute Lymphs (auto) 1.57, Total Counted Not Reportable 02/27/19 05:20: Sodium 139, Potassium 4.6, Chloride 106, Carbon Dioxide 25.0, Anion Gap 8, BUN 27 H, Creatinine 1.34 H, Estim Creat Clear Calc 51.30, Est GFR (MDRD) Af Amer 68, Est GFR (MDRD) Non-Af 56 L, BUN/Creatinine Ratio 20.1 H, Glucose 136 H, Calcium 8.5 02/27/19 05:20: PT Cancelled, INR Cancelled, APTT Cancelled 02/27/19 06:09: POC Glucose 132 H 02/27/19 06:48: PT 14.2, INR 1.1, APTT 29.1 02/27/19 10:23: Specimen Type ROCIO, VBG pH 7.34, VBG pO2 36, VBG O2 Sat (Calc) 65, VBG O2 Content 26, VBG Base Excess -1, POC Mix VBG pCO2 Pt Tmp 45.8 02/27/19 10:26: Specimen Type ROCIO, VBG pH 7.35, VBG pO2 37, VBG O2 Sat (Calc) 67, VBG O2 Content 26, VBG Base Excess -1, POC Mix VBG pCO2 Pt Tmp 45.1 02/27/19 10:32: Specimen Type ART, pH 7.35, Bicarbonate Actual 22.6, POC Total CO2 24, Base Excess -3 L, O2 Saturation 93 L, ABG pCO2 41.3, ABG pO2 72 L 02/27/19 11:35: Activated Clotting Time 180 H Current Medications Allopurinol (Zyloprim) 300 mg PO DAILY [facility] Last Admin: 02/26/19 09:04 Dose: 300 mg Aspirin (Ecotrin) 81 mg PO DAILY [facility] Last Admin: 02/27/19 06:11 Dose: 81 mg Atorvastatin Calcium (Lipitor) 80 mg PO QHS [facility] Last Admin: 02/26/19 21:40 Dose: 80 mg Atropine Sulfate () 0.5 mg IV UD PRN PRN Reason: HR <50 bpm Carvedilol (Coreg) 3.125 mg PO BID [facility] Last Admin: 02/27/19 06:11 Dose: 3.125 mg Clopidogrel Bisulfate (Plavix) 75 mg PO DAILY [facility] Last Admin: 02/27/19 06:11 Dose: 75 mg Dextrose (D50w Syringe) 0 gm IV X1 PRN; Protocol PRN Reason: Hypoglycemia Furosemide (Lasix) 40 mg PO DAILY [facility] Glucagon () 1 mg IM .X1 PRN PRN Reason: Hypoglycemia Heparin Sodium (Beef Lung) (Heparin 500 Unit/5 Ml (100/Ml)) 500 unit IV UD PRN PRN Reason: HEPARIN FLUSH Heparin Sodium (Porcine) (Heparin Na) 0 unit IV UD PRN; Protocol Sodium Chloride () 1,000 mls @ 0 mls/hr IV .Q0M [facility] Last Admin: 02/27/19 06:13 Dose: 15 mls/hr Sodium Chloride () 1,000 mls @ 150 mls/hr IV .Q6H40M [facility] Stop: 02/27/19 19:05 Last Admin: 02/27/19 13:00 Dose: 150 mls/hr Insulin Glargine (Lantus (Bkc)) 10 units SC QHS [facility] Last Admin: 02/26/19 21:41 Dose: 10 units Insulin Human Lispro (Humalog Kwikpen (Bkc)) 0 unit SQ ACHS [facility]; Protocol Last Admin: 02/27/19 06:10 Dose: Not Given Isosorbide Mononitrate (Imdur) 30 mg PO DAILY [facility] Last Admin: 02/27/19 06:11 Dose: 30 mg Labetalol HCl (Trandate) 5 mg IV X1 PRN PRN Reason: SBP > 160 when pulling sheath Lisinopril (Zestril) 10 mg PO DAILY [facility] Last Admin: 02/27/19 06:11 Dose: 10 mg Lorazepam (Ativan) 1 mg PO Q6H PRN PRN PRN Reason: BACK SPASMS/ANXIETY Magnesium Hydroxide (Milk Of Magnesia) 30 ml PO DAILY PRN PRN Reason: Constipation Metoclopramide HCl (Reglan) 5 mg IV Q6 PRN PRN Reason: NAUSEA/VOMITING Morphine Sulfate () 2 mg IV Q4H PRN PRN PRN Reason: Mild back pain (0-2/10) Nitroglycerin (Nitrostat) 0.4 mg SUBLINGUAL Q5M PRN PRN Reason: CHEST PAIN Sodium Chloride () 5 - 15 ml IV UD PRN PRN Reason: SALINE FLUSH Sodium Chloride () 500 ml IV BOLUS PRN PRN Reason: VASO-VAGAL PROTOCOL Medical Necessity - Tobacco Use Smoking Status: Former smoker Tobacco Use: Cigarettes Assessment/Plan All Active Problems (Last Updated 02/27/19 @ 12:42 by Mable Ramos) NSTEMI (non-ST elevated myocardial infarction) (Acute) This is a 69-year-old gentleman with history of chronic combined heart failure, dyslipidemia and was admitted with acute onset of chest pain at rest with radiation to his jaw. Troponins were elevated 0.016 to a peak of 12.6 and admitted with non-STEMI. He had similar pain in September [place] was recommended CABG for significant coronary artery disease and aortic stenosis cath was canceled secondary to left lower extremity cellulitis at the site of graft harvested. Was treated with antibiotic at that time. 1 . NSTEMI 2D echo (02/13/19): EF of 37% with moderate aortic stenosis. Patient had cardiac cath on 02/27/2019 with PCI stent to proximal RPL and mid RCA and distal RCA. Moderate segmental systolic dysfunction. Mild to moderate . Inferior mid inferior wall hypokinesis. EF 35% by LV gram currently on aspirin, plavix and statin as well as carvedilol. Seen by radio mechanic helper. 2. gout: on allopurinol 3 Chronic combined systolic and diastolic heart failure EF is 37%, with LV moderate global systolic dysfunction and stage 1 diastolic dysfunction. On lisinopril 10 mg daily, as well as Imdur. Also on carvedilol. 5. Type 2 diabetes mellitus: Glipizide on hold. On insulin Lantus 10 units nightly. Insulin sliding scale. Accuchecks ACHS 6. Hypertension: on carvedilol and lisinopril 7. Moderate aortic stenosis echo showed peak aortic valve gradient of 37mmHg and mean aortic valve gradient of 17mmhg; aortic valve area is 1 cm2 cardiology on board DVT prophylaxis: Start Lovenox after 24 hours of cardiac cath Laboratory Results 02/27/19 05:20: WBC 7.2, RBC 4.30 L, Hgb 12.7 L, Hct 39.9 L, MCV 92.8, MCH 29.5, MCHC 31.8 L, RDW 14.8 H, RDW Differential 48.6 H, Plt Count 187, MPV 10.3, Immature Gran % (Auto) 0.300, Neut % (Auto) 66.3, Lymph % (Auto) 21.7, Cotton % (Auto) 7.7, Eos % (Auto) 3.7, Baso % (Auto) 0.3, Absolute Neuts (auto) 4.8, Absolute Lymphs (auto) 1.57, Total Counted Not Reportable 02/27/19 05:20: Sodium 139, Potassium 4.6, Chloride 106, Carbon Dioxide 25.0, Anion Gap 8, BUN 27 H, Creatinine 1.34 H, Estim Creat Clear Calc 51.30, Est GFR (MDRD) Af Amer 68, Est GFR (MDRD) Non-Af 56 L, BUN/Creatinine Ratio 20.1 H, Glucose 136 H, Calcium 8.5 02/27/19 05:20: PT Cancelled, INR Cancelled, APTT Cancelled 02/27/19 06:09: POC Glucose 132 H Clinical Impression(s) from Imaging Studies Chest X-Ray 02/24/19 21:44 IMPRESSION: No evidence for acute cardiopulmonary pathology. Active Medications Allopurinol (Zyloprim) 300 mg PO DAILY [facility] Last Admin: 02/26/19 09:04 Dose: 300 mg Aspirin (Ecotrin) 81 mg PO DAILY [facility] Last Admin: 02/27/19 06:11 Dose: 81 mg Atorvastatin Calcium (Lipitor) 80 mg PO QHS [facility] Last Admin: 02/26/19 21:40 Dose: 80 mg Atropine Sulfate () 0.5 mg IV UD PRN PRN Reason: HR <50 bpm Carvedilol (Coreg) 3.125 mg PO BID [facility] Last Admin: 02/27/19 06:11 Dose: 3.125 mg Clopidogrel Bisulfate (Plavix) 75 mg PO DAILY [facility] Last Admin: 02/27/19 06:11 Dose: 75 mg Dextrose (D50w Syringe) 0 gm IV X1 PRN; Protocol PRN Reason: Hypoglycemia Furosemide (Lasix) 40 mg PO DAILY [facility] Glucagon () 1 mg IM .X1 PRN PRN Reason: Hypoglycemia Heparin Sodium (Beef Lung) (Heparin 500 Unit/5 Ml (100/Ml)) 500 unit IV UD PRN PRN Reason: HEPARIN FLUSH Heparin Sodium (Porcine) (Heparin Na) 0 unit IV UD PRN; Protocol Sodium Chloride () 1,000 mls @ 0 mls/hr IV .Q0M [facility] Last Admin: 02/27/19 06:13 Dose: 15 mls/hr Sodium Chloride () 1,000 mls @ 150 mls/hr IV .Q6H40M [facility] Stop: 02/27/19 19:05 Last Admin: 02/27/19 13:00 Dose: 150 mls/hr Insulin Glargine (Lantus (Bkc)) 10 units SC QHS [facility] Last Admin: 02/26/19 21:41 Dose: 10 units Insulin Human Lispro (Humalog Kwikpen (Bkc)) 0 unit SQ ACHS [facility]; Protocol Last Admin: 02/27/19 06:10 Dose: Not Given Isosorbide Mononitrate (Imdur) 30 mg PO DAILY [facility] Last Admin: 02/27/19 06:11 Dose: 30 mg Labetalol HCl (Trandate) 5 mg IV X1 PRN PRN Reason: SBP > 160 when pulling sheath Lisinopril (Zestril) 10 mg PO DAILY [facility] Last Admin: 02/27/19 06:11 Dose: 10 mg Lorazepam (Ativan) 1 mg PO Q6H PRN PRN PRN Reason: BACK SPASMS/ANXIETY Magnesium Hydroxide (Milk Of Magnesia) 30 ml PO DAILY PRN PRN Reason: Constipation Metoclopramide HCl (Reglan) 5 mg IV Q6 PRN PRN Reason: NAUSEA/VOMITING Morphine Sulfate () 2 mg IV Q4H PRN PRN PRN Reason: Mild back pain (0-2/10) Nitroglycerin (Nitrostat) 0.4 mg SUBLINGUAL Q5M PRN PRN Reason: CHEST PAIN Sodium Chloride () 5 - 15 ml IV UD PRN PRN Reason: SALINE FLUSH Sodium Chloride () 500 ml IV BOLUS PRN PRN Reason: VASO-VAGAL PROTOCOL Code Visit Inpatient E&M: 82314 Subs Hosp L3
--- NOTE | 2019-02-27 13:50 | PN_ITS ---
Patient Problems: Active and Suspected Problems (Last Updated 02/27/19 @ 12:42 by Mable Ramos) NSTEMI (non-ST elevated myocardial infarction) (Acute) Subjective: Patient had cardiac cath today which showed triple-vessel coronary artery disease. Patient had with PCI to proximal RPL and mid RCA and distal RCA Moderate segmental systolic dysfunction. Mild to moderate . Inferior mid inferior wall hypokinesis. EF 35% by LV gram Vitals/I&O's: Vital Signs Temp Pulse Resp BP Pulse Ox 98.0 F 72 18 141/65 H 96 02/27/19 13:30 02/27/19 13:30 02/27/19 13:30 02/27/19 13:30 02/27/19 13:30 Oxygen Flow Rate (L/min) 2 Oxygen Delivery Method Room Air Weight: 286 lb 8 oz Body Mass Index (BMI) 42.3 Intake and Output for Last 24 Hours 02/25/19 02/26/19 02/27/19 23:59 23:59 23:59 Intake Total 1140 / 1140 1208 / 1208 565.4 / 565.4 Balance 1140 / 1140 1208 / 1208 565.4 / 565.4 General: Alert, Oriented x3, Cooperative HEENT: Atraumatic, PERRLA, EOMI, Normocephalic Neck: Supple, No JVD, Negative Carotid Bruits Lungs: Clear to auscultation, Normal air movement, No rhonchi, No wheeze, No rales Cardiovascular: Regular rate, No murmurs Abdomen: Bowel Sounds Present, Soft, Non Tender, Non-Distended Extremities: No edema, Capillary Refill Less than 3 Seconds Skin: No rashes, No breakdown, - - Right groin cath access site. No hematoma. Small scab over left mid marquis Musculoskeletal: No Tenderness to Palpation of Joints or Extremities, Arthritic Changes - Bilateral TKR Lymphatic: No Cervical, Supraclavicular, or Inguinal Adenopathy Neurological: Cranial nerves II-XII grossly intact, Deep Tendon Reflexes 2+/4 and Symmetrical, Neuro grossly intact Psych/Mental Status: Normal Affect, Appropriate Laboratory Results 02/26/19 14:28: APTT 73.5 H 02/26/19 16:48: POC Glucose 105 02/26/19 20:40: Urine Color Yellow, Urine Clarity Clear, Urine pH 6.5, Ur Specific [place] 1.015, Urine Protein Negative, Urine Glucose (UA) Normal, Urine Ketones Negative, Urine Occult Blood Negative, Urine Nitrite Negative, Urine Bilirubin Negative, Urine Urobilinogen Normal, Ur Leukocyte Esterase Negative, Urine RBC 0 SEEN, Urine WBC 0 SEEN, Ur Squamous Epith Cells 0 SEEN, Urine Bacteria 0 SEEN, Urine Mucus 0 SEEN 02/26/19 21:19: POC Glucose 135 H 02/27/19 05:20: WBC 7.2, RBC 4.30 L, Hgb 12.7 L, Hct 39.9 L, MCV 92.8, MCH 29.5, MCHC 31.8 L, RDW 14.8 H, RDW Differential 48.6 H, Plt Count 187, MPV 10.3, Immature Gran % (Auto) 0.300, Neut % (Auto) 66.3, Lymph % (Auto) 21.7, [place] % (Auto) 7.7, Eos % (Auto) 3.7, Baso % (Auto) 0.3, Absolute Neuts (auto) 4.8, Absolute Lymphs (auto) 1.57, Total Counted Not Reportable 02/27/19 05:20: Sodium 139, Potassium 4.6, Chloride 106, Carbon Dioxide 25.0, Anion Gap 8, BUN 27 H, Creatinine 1.34 H, Estim Creat Clear Calc 51.30, Est GFR (MDRD) Af Amer 68, Est GFR (MDRD) Non-Af 56 L, BUN/Creatinine Ratio 20.1 H, Glucose 136 H, Calcium 8.5 02/27/19 05:20: PT Cancelled, INR Cancelled, APTT Cancelled 02/27/19 06:09: POC Glucose 132 H 02/27/19 06:48: PT 14.2, INR 1.1, APTT 29.1 02/27/19 10:23: Specimen Type ROCIO, VBG pH 7.34, VBG pO2 36, VBG O2 Sat (Calc) 65, VBG O2 Content 26, VBG Base Excess -1, POC Mix VBG pCO2 Pt Tmp 45.8 02/27/19 10:26: Specimen Type ROCIO, VBG pH 7.35, VBG pO2 37, VBG O2 Sat (Calc) 67, VBG O2 Content 26, VBG Base Excess -1, POC Mix VBG pCO2 Pt Tmp 45.1 02/27/19 10:32: Specimen Type ART, pH 7.35, Bicarbonate Actual 22.6, POC Total CO2 24, Base Excess -3 L, O2 Saturation 93 L, ABG pCO2 41.3, ABG pO2 72 L 02/27/19 11:35: Activated Clotting Time 180 H Current Medications Allopurinol (Zyloprim) 300 mg PO DAILY [facility] Last Admin: 02/26/19 09:04 Dose: 300 mg Aspirin (Ecotrin) 81 mg PO DAILY [facility] Last Admin: 02/27/19 06:11 Dose: 81 mg Atorvastatin Calcium (Lipitor) 80 mg PO QHS [facility] Last Admin: 02/26/19 21:40 Dose: 80 mg Atropine Sulfate () 0.5 mg IV UD PRN PRN Reason: HR <50 bpm Carvedilol (Coreg) 3.125 mg PO BID [facility] Last Admin: 02/27/19 06:11 Dose: 3.125 mg Clopidogrel Bisulfate (Plavix) 75 mg PO DAILY [facility] Last Admin: 02/27/19 06:11 Dose: 75 mg Dextrose (D50w Syringe) 0 gm IV X1 PRN; Protocol PRN Reason: Hypoglycemia Furosemide (Lasix) 40 mg PO DAILY [facility] Glucagon () 1 mg IM .X1 PRN PRN Reason: Hypoglycemia Heparin Sodium (Beef Lung) (Heparin 500 Unit/5 Ml (100/Ml)) 500 unit IV UD PRN PRN Reason: HEPARIN FLUSH Heparin Sodium (Porcine) (Heparin Na) 0 unit IV UD PRN; Protocol Sodium Chloride () 1,000 mls @ 0 mls/hr IV .Q0M [facility] Last Admin: 02/27/19 06:13 Dose: 15 mls/hr Sodium Chloride () 1,000 mls @ 150 mls/hr IV .Q6H40M [facility] Stop: 02/27/19 19:05 Last Admin: 02/27/19 13:00 Dose: 150 mls/hr Insulin Glargine (Lantus (Bkc)) 10 units SC QHS [facility] Last Admin: 02/26/19 21:41 Dose: 10 units Insulin Human Lispro (Humalog Kwikpen (Bkc)) 0 unit SQ ACHS [facility]; Protocol Last Admin: 02/27/19 06:10 Dose: Not Given Isosorbide Mononitrate (Imdur) 30 mg PO DAILY [facility] Last Admin: 02/27/19 06:11 Dose: 30 mg Labetalol HCl (Trandate) 5 mg IV X1 PRN PRN Reason: SBP > 160 when pulling sheath Lisinopril (Zestril) 10 mg PO DAILY [facility] Last Admin: 02/27/19 06:11 Dose: 10 mg Lorazepam (Ativan) 1 mg PO Q6H PRN PRN PRN Reason: BACK SPASMS/ANXIETY Magnesium Hydroxide (Milk Of Magnesia) 30 ml PO DAILY PRN PRN Reason: Constipation Metoclopramide HCl (Reglan) 5 mg IV Q6 PRN PRN Reason: NAUSEA/VOMITING Morphine Sulfate () 2 mg IV Q4H PRN PRN PRN Reason: Mild back pain (0-2/10) Nitroglycerin (Nitrostat) 0.4 mg SUBLINGUAL Q5M PRN PRN Reason: CHEST PAIN Sodium Chloride () 5 - 15 ml IV UD PRN PRN Reason: SALINE FLUSH Sodium Chloride () 500 ml IV BOLUS PRN PRN Reason: VASO-VAGAL PROTOCOL Medical Necessity - Tobacco Use Smoking Status: Former smoker Tobacco Use: Cigarettes Assessment/Plan All Active Problems (Last Updated 02/27/19 @ 12:42 by Mable Ramos) NSTEMI (non-ST elevated myocardial infarction) (Acute) This is a 69-year-old gentleman with history of chronic combined heart failure, dyslipidemia and was admitted with acute onset of chest pain at rest with radiation to his jaw. Troponins were elevated 0.016 to a peak of 12.6 and admitted with non-STEMI. He had similar pain in September [place] was recommended CABG for significant coronary artery disease and aortic stenosis cath was canceled secondary to left lower extremity cellulitis at the site of graft harvested. Was treated with antibiotic at that time. 1 . NSTEMI * 2D echo (02/13/19): EF of 37% with moderate aortic stenosis. * Patient had cardiac cath on 02/27/2019 with PCI stent to proximal RPL and mid RCA and distal RCA. Moderate segmental systolic dysfunction. Mild to moderate . Inferior mid inferior wall hypokinesis. EF 35% by LV gram * currently on aspirin, plavix and statin as well as carvedilol. * Seen by cycling instructor. 2. gout: on allopurinol 3 Chronic combined systolic and diastolic heart failure * EF is 37%, with LV moderate global systolic dysfunction and stage 1 diastolic dysfunction. * On lisinopril 10 mg daily, as well as Imdur. Also on carvedilol. 5. Type 2 diabetes mellitus: Glipizide on hold. On insulin Lantus 10 units nightly. Insulin sliding scale. Accuchecks ACHS 6. Hypertension: on carvedilol and lisinopril 7. Moderate aortic stenosis * echo showed peak aortic valve gradient of 37mmHg and mean aortic valve gradient of 17mmhg; aortic valve area is 1 cm2 * cardiology on board DVT prophylaxis: Start Lovenox after 24 hours of cardiac cath Laboratory Results 02/27/19 05:20: WBC 7.2, RBC 4.30 L, Hgb 12.7 L, Hct 39.9 L, MCV 92.8, MCH 29.5, MCHC 31.8 L, RDW 14.8 H, RDW Differential 48.6 H, Plt Count 187, MPV 10.3, Immature Gran % (Auto) 0.300, Neut % (Auto) 66.3, Lymph % (Auto) 21.7, [place] % (Auto) 7.7, Eos % (Auto) 3.7, Baso % (Auto) 0.3, Absolute Neuts (auto) 4.8, Absolute Lymphs (auto) 1.57, Total Counted Not Reportable 02/27/19 05:20: Sodium 139, Potassium 4.6, Chloride 106, Carbon Dioxide 25.0, Anion Gap 8, BUN 27 H, Creatinine 1.34 H, Estim Creat Clear Calc 51.30, Est GFR (MDRD) Af Amer 68, Est GFR (MDRD) Non-Af 56 L, BUN/Creatinine Ratio 20.1 H, Glucose 136 H, Calcium 8.5 02/27/19 05:20: PT Cancelled, INR Cancelled, APTT Cancelled 02/27/19 06:09: POC Glucose 132 H Clinical Impression(s) from Imaging Studies Chest X-Ray 02/24/19 21:44 IMPRESSION: No evidence for acute cardiopulmonary pathology. Active Medications Allopurinol (Zyloprim) 300 mg PO DAILY [facility] Last Admin: 02/26/19 09:04 Dose: 300 mg Aspirin (Ecotrin) 81 mg PO DAILY [facility] Last Admin: 02/27/19 06:11 Dose: 81 mg Atorvastatin Calcium (Lipitor) 80 mg PO QHS [facility] Last Admin: 02/26/19 21:40 Dose: 80 mg Atropine Sulfate () 0.5 mg IV UD PRN PRN Reason: HR <50 bpm Carvedilol (Coreg) 3.125 mg PO BID [facility] Last Admin: 02/27/19 06:11 Dose: 3.125 mg Clopidogrel Bisulfate (Plavix) 75 mg PO DAILY [facility] Last Admin: 02/27/19 06:11 Dose: 75 mg Dextrose (D50w Syringe) 0 gm IV X1 PRN; Protocol PRN Reason: Hypoglycemia Furosemide (Lasix) 40 mg PO DAILY [facility] Glucagon () 1 mg IM .X1 PRN PRN Reason: Hypoglycemia Heparin Sodium (Beef Lung) (Heparin 500 Unit/5 Ml (100/Ml)) 500 unit IV UD PRN PRN Reason: HEPARIN FLUSH Heparin Sodium (Porcine) (Heparin Na) 0 unit IV UD PRN; Protocol Sodium Chloride () 1,000 mls @ 0 mls/hr IV .Q0M [facility] Last Admin: 02/27/19 06:13 Dose: 15 mls/hr Sodium Chloride () 1,000 mls @ 150 mls/hr IV .Q6H40M [facility] Stop: 02/27/19 19:05 Last Admin: 02/27/19 13:00 Dose: 150 mls/hr Insulin Glargine (Lantus (Bkc)) 10 units SC QHS [facility] Last Admin: 02/26/19 21:41 Dose: 10 units Insulin Human Lispro (Humalog Kwikpen (Bkc)) 0 unit SQ ACHS [facility]; Protocol Last Admin: 02/27/19 06:10 Dose: Not Given Isosorbide Mononitrate (Imdur) 30 mg PO DAILY [facility] Last Admin: 02/27/19 06:11 Dose: 30 mg Labetalol HCl (Trandate) 5 mg IV X1 PRN PRN Reason: SBP > 160 when pulling sheath Lisinopril (Zestril) 10 mg PO DAILY [facility] Last Admin: 02/27/19 06:11 Dose: 10 mg Lorazepam (Ativan) 1 mg PO Q6H PRN PRN PRN Reason: BACK SPASMS/ANXIETY Magnesium Hydroxide (Milk Of Magnesia) 30 ml PO DAILY PRN PRN Reason: Constipation Metoclopramide HCl (Reglan) 5 mg IV Q6 PRN PRN Reason: NAUSEA/VOMITING Morphine Sulfate () 2 mg IV Q4H PRN PRN PRN Reason: Mild back pain (0-2/10) Nitroglycerin (Nitrostat) 0.4 mg SUBLINGUAL Q5M PRN PRN Reason: CHEST PAIN Sodium Chloride () 5 - 15 ml IV UD PRN PRN Reason: SALINE FLUSH Sodium Chloride () 500 ml IV BOLUS PRN PRN Reason: VASO-VAGAL PROTOCOL Code Visit Inpatient E&M: 09979 Subs Hosp L3
[2019-02-27 13:56] LABS: Bedside Glucose 101 mg/dL (70-110)
--- NOTE | 2019-02-27 14:15 | CRPHASE1 ---
Patient Communication PHII Cardiac Rehab Discussed with Patient:: Yes Guide to Cardiac Rehab Given to Patient:: Yes Cardiac Rehab Facility Choice List Given to Patient:: Yes - pt lives in [facility] CR PHII:: Communication Given to CR, Refer to [facility] Glass Melt Operator:: Ronnie Ball - DR ORELLANA PCP:: Reg Zuñiga Refer Phase II Cardiac Rehab:: Yes Sessions:: 36 sessions - 3 days/wk, 12 weeks Risk Factors/Lifestyle Smoking Status: Current some day smoker - STATES HE QUIT A FEW WEEKS AGO Hx Hypertension: Yes Hx Diabetes Mellitus Type 1: No Hx Diabetes Mellitus Type 2: Yes Hx Dyslipidemia: Yes Hx Obesity: Yes Height: 5 ft 9 in Weight:: 286 lb BMI: 42.2 ETOH: No Substance Abuse: No Family History: Family History (Last Reviewed 02/15/19 @ 09:53 by Sabas Orellana MD) Mother Diabetes Hypertension Father Diabetes Hypertension Sister Hypertension Brother Diabetes Hypertension Cancer, Onset Age: 50 CAD (coronary artery disease) Phase I Education Given On:: [place], Nutrition, Antiplatelet medication, CHF, Smoking cessation, Diabetes - Type I, Diabetes - Type II Issues Affecting Care:: None Knowledge of Condition:: No Hospital Course Pain Description: Pressure - CHEST PRESSURE RADIATIING INTO JAW WITH NAUSEA Medical/Surgical History LA:: Yes Angina:: Yes CAD:: Yes Valve Disease/Replacement:: Yes Diabetes Type II:: Yes Hypertension:: Yes Dyslipidemia:: Yes CABG: No PTCA:: Yes - STENTS X3 ICD:: No Pacemaker:: No Orthopedic:: Yes - BOTH KNEES Discharge/Home/Social Eval Discharge Disposition: Home Cardiac Rehabilitation Info Cardiac Rehabilitation Program Information: Cardiac Rehabilitation is important for patients like you who are recovering from a heart problem. Cardiac rehabilitation programs are recognized as integral to the continued care of the patient with coronary heart disease. The cardiac rehabilitation program is designed to optimize a patient's physical, psychological, and social functioning. Health customer care team coach work in cardiac rehabilitation programs and assist you with getting the treatments you need to get stronger and healthier - like exercise, healthy eating habits, and medications. Cardiac rehabilitation has been show to help people with heart problems live longer and have better life enjoyment than people who do not go to cardiac rehabilitation. Please contact the Cardiac Rehabilitation Program at [facility] at in two weeks if you have not heard from them.
--- NOTE | 2019-02-27 14:19 | CRPHASE1_ITS ---
Patient Communication PHII Cardiac Rehab Discussed with Patient:: Yes Guide to Cardiac Rehab Given to Patient:: Yes Cardiac Rehab Facility Choice List Given to Patient:: Yes - pt lives in [facility] CR PHII:: Communication Given to CR, Refer to [facility] Knotter Hand:: Ronnie Ball - DR ORELLANA PCP:: Reg Zuñiga Refer Phase II Cardiac Rehab:: Yes Sessions:: 36 sessions - 3 days/wk, 12 weeks Risk Factors/Lifestyle Smoking Status: Current some day smoker - STATES HE QUIT A FEW WEEKS AGO Hx Hypertension: Yes Hx Diabetes Mellitus Type 1: No Hx Diabetes Mellitus Type 2: Yes Hx Dyslipidemia: Yes Hx Obesity: Yes Height: 5 ft 9 in Weight:: 286 lb BMI: 42.2 ETOH: No Substance Abuse: No Family History: Family History (Last Reviewed 02/15/19 @ 09:53 by Sabas Orellana MD) Mother Diabetes Hypertension Father Diabetes Hypertension Sister Hypertension Brother Diabetes Hypertension Cancer, Onset Age: 50 CAD (coronary artery disease) Phase I Education Given On:: [place], Nutrition, Antiplatelet medication, CHF, Smoking cessation, Diabetes - Type I, Diabetes - Type II Issues Affecting Care:: None Knowledge of Condition:: No Hospital Course Pain Description: Pressure - CHEST PRESSURE RADIATIING INTO JAW WITH NAUSEA Medical/Surgical History NM:: Yes Angina:: Yes CAD:: Yes Valve Disease/Replacement:: Yes Diabetes Type II:: Yes Hypertension:: Yes Dyslipidemia:: Yes CABG: No PTCA:: Yes - STENTS X3 ICD:: No Pacemaker:: No Orthopedic:: Yes - BOTH KNEES Discharge/Home/Social Eval Discharge Disposition: Home Cardiac Rehabilitation Info Cardiac Rehabilitation Program Information: Cardiac Rehabilitation is important for patients like you who are recovering from a heart problem. Cardiac rehabilitation programs are recognized as integral to the continued care of the patient with coronary heart disease. The cardiac rehabilitation program is designed to optimize a patient's physical, psychological, and social functioning. Health care coordinator work in cardiac rehabilitation programs and assist you with getting the treatments you need to get stronger and healthier - like exercise, healthy eating habits, and medications. Cardiac rehabilitation has been show to help people with heart problems live longer and have better life enjoyment than people who do not go to cardiac rehabilitation. Please contact the Cardiac Rehabilitation Program at [facility] at in two weeks if you have not heard from them.
--- NOTE | 2019-02-27 14:23 | CRPH1.INSTRU ---
General Education CAD and cardiac anatomy and function:: Not instructed Explanation of diagnoses and procedures:: Not instructed Sign/Symptoms of PA:: Patient communicates acknowledgment, Needs reinforcement Antiplatelet therapy: Patient communicates acknowledgment, Needs reinforcement Proper use of NTG-SL: Not instructed Emergency procedures and activation of EMS: Patient communicates acknowledgment, Family communicates acknowledgment, Needs reinforcement Compliance of all prescribed medications: Needs reinforcement Smoking Patient Nicotine/Smoking Risk Factors Are:: Cigars Nicotine/Smoking Response Code:: Not instructed Dyslipidemia Recommendations Include:: Lipid profile not available Overweight/Obesity Patient Overweight/Obesity Risk Factors Are:: BMI Normal [24-29 & > 65 years old], Obesity - > or = 30 Overweight/Obesity:: Not instructed Hypertension Recommendations Include:: Maintain BP <130/85, BP <130/80 if diabetic, DASH dietary guidelines, Decrease/maintain normal body weight, Moderation of ETOH Hypertension:: Not instructed Heart Disease Recommendations Include:: Educated family members of their risk, Educated family members of importance of prevention of heart disease Heart Disease Response Code:: Not instructed Diabetes Patient Diabetes Risk Factors Are:: Elevated blood sugars Recommendations Include:: Maintain fasting blood sugars 70-110 md/dL, Maintain HgbA1c of 6% or less, Monitor blood sugar as prescribed, Diabetic dietary guidelines, Decrease/maintain body weight Diabetes:: Not instructed Metabolic Syndrome Patient Metabolic Syndrome Risk Factors Are [3 of 5]:: Fasting blood sugar > 100 mg/dL, Waist circumference > 35 [female] or 40 [male], Hypertension Metabolic Syndrome Response Code:: Not instructed Sedentary Sedentary Response Code:: Not instructed Stress Stress Response Code:: Not instructed
[2019-02-27 16:30] LABS: Bedside Glucose 168 mg/dL (70-110)
[2019-02-27] MEDS: Insulin Lispro 100 UNIT/ML INSULN.PEN SQ ×2 (16:54→22:03)
[2019-02-27] MEDS: Allopurinol 300 MG Tablet PO (16:54)
[2019-02-27 22:01] LABS: Bedside Glucose 159 mg/dL (70-110)
[2019-02-27] MEDS: Atorvastatin Calcium 80 MG Tablet PO (22:03)
[2019-02-28] VITALS (16 sets, daily range): BP systolic 98–156; BP diastolic 41–69; PULSE 38–85; RESP 14–22; TEMP 36.4–36.7; O2SAT 92–96
[2019-02-28 04:32] LABS: Hematocrit 39.2 % (40-54); Hemoglobin 12.2 g/dl (13.0-16.5); Mean Corp Hgb Conc 31.1 g/gl (32-36); Mean Corpuscular Hgb 28.6 pg (27.0-32.0); Mean Platelet Vol. 10.4 fl (6.2-12.0); Platelet Count 180 K/mm3 (150-450); RBC Distribution Width CV 14.9 % (11.6-14.6); RBC Distribution Width SD 49.1 fl (35.1-43.9); Red Blood Count 4.26 M/mm3 (4.6-6.2); White Blood Count 8.1 K/mm3 (4.4-11.0)
[2019-02-28 04:33] LABS: Scan Indicated on CBC? Y/N NO
[2019-02-28 04:53] LABS: Anion Gap 8 (5-15); BUN 27 mg/dL (7-18); BUN/Creat Ratio 19.7 RATIO (10-20); Calcium,Total 8.3 mg/dL (8.5-10.1); Chloride 107 mmol/L (98-107); Creatinine, Serum 1.37 mg/dL (0.70-1.30); EST Glomerular Filtration Rate 55 mL/min (>60); Est Glom Filt Rate - Afr Amer 66 mL/min (>60); Estimated Creatinine Clearance 50.17 ml/min; Glucose 126 mg/dL (74-106); Potassium 4.9 mmol/L (3.5-5.1); Sodium Level 139 mmol/L (136-145)
[2019-02-28 07:00] LABS: Bedside Glucose 128 mg/dL (70-110)
--- NOTE | 2019-02-28 08:03 | PCM.PN.HOSP ---
Patient Problems: Active and Suspected Problems (Last Updated 02/27/19 @ 15:13 by Yelena Graff) NSTEMI (non-ST elevated myocardial infarction) (Acute) Subjective: Patient had sinus pause at about 4:40 AM. It was about 7.8 second. Patient also had episodes of severe bradycardia about heart rate 44/min. Right groin catheter access site is dry with no hematoma. Patient denies chest pain/tightness or shortness of breath. Vitals/I&O's: Vital Signs Temp Pulse Resp BP Pulse Ox 98.1 F 54 L 16 119/59 L 92 02/28/19 00:20 02/28/19 06:00 02/28/19 06:00 02/28/19 06:00 02/28/19 06:00 Oxygen Flow Rate (L/min) 2 Oxygen Delivery Method Room Air Weight: 293 lb 14.019 oz Body Mass Index (BMI) 42.3 Intake and Output for Last 24 Hours 02/26/19 02/27/19 02/28/19 23:59 23:59 23:59 Intake Total 1208 / 1208 1065.4 / 1065.4 240 / 240 Output Total 900 / 900 1900 / 1900 Balance 1208 / 1208 165.4 / 165.4 -1660 / -1660 General: Alert, Oriented x3, Cooperative HEENT: Atraumatic, PERRLA, EOMI, Normocephalic Neck: Supple, No JVD, Negative Carotid Bruits Lungs: Clear to auscultation, Normal air movement, No rhonchi, No wheeze, No rales Cardiovascular: Regular rate, Regular Rhythm, Normal S1, Normal S2, Bradycardic, Murmur - Aortic stenosis systolic midsystolic murmur. Abdomen: Bowel Sounds Present, Soft, Non Tender, Non-Distended Extremities: Capillary Refill Less than 3 Seconds, Edema Skin: No rashes, No breakdown Musculoskeletal: No Tenderness to Palpation of Joints or Extremities, Arthritic Changes Lymphatic: No Cervical, Supraclavicular, or Inguinal Adenopathy Neurological: Cranial nerves II-XII grossly intact, Deep Tendon Reflexes 2+/4 and Symmetrical, Neuro grossly intact Psych/Mental Status: Normal Affect, Appropriate Laboratory Results 02/27/19 10:23: Specimen Type ROCIO, VBG pH 7.34, VBG pO2 36, VBG O2 Sat (Calc) 65, VBG O2 Content 26, VBG Base Excess -1, POC Mix VBG pCO2 Pt Tmp 45.8 02/27/19 10:26: Specimen Type ROCIO, VBG pH 7.35, VBG pO2 37, VBG O2 Sat (Calc) 67, VBG O2 Content 26, VBG Base Excess -1, POC Mix VBG pCO2 Pt Tmp 45.1 02/27/19 10:32: Specimen Type ART, pH 7.35, Bicarbonate Actual 22.6, POC Total CO2 24, Base Excess -3 L, O2 Saturation 93 L, ABG pCO2 41.3, ABG pO2 72 L 02/27/19 11:35: Activated Clotting Time 180 H 02/27/19 13:46: POC Glucose 101 02/27/19 16:28: POC Glucose 168 H 02/27/19 21:56: POC Glucose 159 H 02/28/19 04:25: WBC 8.1, RBC 4.26 L, Hgb 12.2 L, Hct 39.2 L, MCV 92.0, MCH 28.6, MCHC 31.1 L, RDW 14.9 H, RDW Differential 49.1 H, Plt Count 180, MPV 10.4 02/28/19 04:25: Sodium 139, Potassium 4.9, Chloride 107, Carbon Dioxide 24.0, Anion Gap 8, BUN 27 H, Creatinine 1.37 H, Estim Creat Clear Calc 50.17, Est GFR (MDRD) Af Amer 66, Est GFR (MDRD) Non-Af 55 L, BUN/Creatinine Ratio 19.7, Glucose 126 H, Calcium 8.3 L 02/28/19 06:54: POC Glucose 128 H Current Medications Allopurinol (Zyloprim) 300 mg PO DAILY [facility] Last Admin: 02/27/19 16:54 Dose: 300 mg Aspirin (Ecotrin) 81 mg PO DAILY [facility] Last Admin: 02/27/19 06:11 Dose: 81 mg Atorvastatin Calcium (Lipitor) 80 mg PO QHS [facility] Last Admin: 02/27/19 22:03 Dose: 80 mg Atropine Sulfate () 0.5 mg IV UD PRN PRN Reason: HR <50 bpm Carvedilol (Coreg) 3.125 mg PO BID [facility] Last Admin: 02/27/19 22:02 Dose: 3.125 mg Clopidogrel Bisulfate (Plavix) 75 mg PO DAILY [facility] Last Admin: 02/27/19 06:11 Dose: 75 mg Dextrose (D50w Syringe) 0 gm IV X1 PRN; Protocol PRN Reason: Hypoglycemia Enoxaparin Sodium (Lovenox) 40 mg SC DAILY [facility] Furosemide (Lasix) 40 mg PO DAILY [facility] Glucagon () 1 mg IM .X1 PRN PRN Reason: Hypoglycemia Heparin Sodium (Beef Lung) (Heparin 500 Unit/5 Ml (100/Ml)) 500 unit IV UD PRN PRN Reason: HEPARIN FLUSH Sodium Chloride () 1,000 mls @ 0 mls/hr IV .Q0M [facility] Last Admin: 02/27/19 06:13 Dose: 15 mls/hr Insulin Glargine (Lantus (Bk)) 10 units SC QHS [facility] Last Admin: 02/27/19 22:02 Dose: 10 units Insulin Human Lispro (Humalog Kwikpen ([facility])) 0 unit SQ ACHS [facility]; Protocol Last Admin: 02/28/19 07:50 Dose: Not Given Isosorbide Mononitrate (Imdur) 30 mg PO DAILY [facility] Last Admin: 02/27/19 06:11 Dose: 30 mg Labetalol HCl (Trandate) 5 mg IV X1 PRN PRN Reason: SBP > 160 when pulling sheath Lisinopril (Zestril) 10 mg PO DAILY [facility] Last Admin: 02/27/19 06:11 Dose: 10 mg Lorazepam (Ativan) 1 mg PO Q6H PRN PRN PRN Reason: BACK SPASMS/ANXIETY Magnesium Hydroxide (Milk Of Magnesia) 30 ml PO DAILY PRN PRN Reason: Constipation Metoclopramide HCl (Reglan) 5 mg IV Q6 PRN PRN Reason: NAUSEA/VOMITING Morphine Sulfate () 2 mg IV Q4H PRN PRN PRN Reason: Mild back pain (0-2/10) Nitroglycerin (Nitrostat) 0.4 mg SUBLINGUAL Q5M PRN PRN Reason: CHEST PAIN Sodium Chloride () 5 - 15 ml IV UD PRN PRN Reason: SALINE FLUSH Sodium Chloride () 500 ml IV BOLUS PRN PRN Reason: VASO-VAGAL PROTOCOL Medical Necessity - Tobacco Use Smoking Status: Former smoker Tobacco Use: Cigarettes Assessment/Plan All Active Problems (Last Updated 02/27/19 @ 15:13 by Yelena Graff) History of coronary artery stent placement (Resolved 02/27/19) NSTEMI (non-ST elevated myocardial infarction) (Acute) This is a 69-year-old gentleman with history of chronic combined heart failure, dyslipidemia and was admitted with acute onset of chest pain at rest with radiation to his jaw. Troponins were elevated 0.016 to a peak of 12.6 and admitted with non-STEMI. He had similar pain in September [place] was recommended CABG for significant coronary artery disease and aortic stenosis cath was canceled secondary to left lower extremity cellulitis at the site of graft harvested. Was treated with antibiotic at that time. 1 . NSTEMI 2D echo (02/13/19): EF of 37% with moderate aortic stenosis. Patient had cardiac cath on 02/27/2019 with PCI stent to proximal RPL and mid RCA and distal RCA. Moderate segmental systolic dysfunction. Mild to moderate . Inferior mid inferior wall hypokinesis. EF 35% by LV gram currently on aspirin, plavix and statin as well as carvedilol. Seen by defense analyst. 2. Sinus pause: Patient had sinus pause of 7.8-second with severe bradycardia. Patient is on very low-dose of carvedilol. Further defense analyst opinion. gout: on allopurinol 3 Chronic combined systolic and diastolic heart failure EF is 37%, with LV moderate global systolic dysfunction and stage 1 diastolic dysfunction. On lisinopril 10 mg daily, as well as Imdur. Also on carvedilol. 5. Type 2 diabetes mellitus: Glipizide on hold. On insulin Lantus 10 units nightly. Insulin sliding scale. Accuchecks ACHS 6. Hypertension: on carvedilol and lisinopril 7. Moderate aortic stenosis echo showed peak aortic valve gradient of 37mmHg and mean aortic valve gradient of 17mmhg; aortic valve area is 1 cm2 cardiology on board DVT prophylaxis: Start Lovenox after 24 hours of cardiac cath Laboratory Results 02/27/19 16:28: POC Glucose 168 H 02/27/19 21:56: POC Glucose 159 H 02/28/19 04:25: WBC 8.1, RBC 4.26 L, Hgb 12.2 L, Hct 39.2 L, MCV 92.0, MCH 28.6, MCHC 31.1 L, RDW 14.9 H, RDW Differential 49.1 H, Plt Count 180, MPV 10.4 02/28/19 04:25: Sodium 139, Potassium 4.9, Chloride 107, Carbon Dioxide 24.0, Anion Gap 8, BUN 27 H, Creatinine 1.37 H, Estim Creat Clear Calc 50.17, Est GFR (MDRD) Af Amer 66, Est GFR (MDRD) Non-Af 55 L, BUN/Creatinine Ratio 19.7, Glucose 126 H, Calcium 8.3 L 02/28/19 06:54: POC Glucose 128 H L Clinical Impression(s) from Imaging Studies Chest X-Ray 02/24/19 21:44 IMPRESSION: No evidence for acute cardiopulmonary pathology. Active Medications Allopurinol (Zyloprim) 300 mg PO DAILY [facility] Last Admin: 02/27/19 16:54 Dose: 300 mg Aspirin (Ecotrin) 81 mg PO DAILY [facility] Last Admin: 02/27/19 06:11 Dose: 81 mg Atorvastatin Calcium (Lipitor) 80 mg PO QHS [facility] Last Admin: 02/27/19 22:03 Dose: 80 mg Atropine Sulfate () 0.5 mg IV UD PRN PRN Reason: HR <50 bpm Carvedilol (Coreg) 3.125 mg PO BID [facility] Last Admin: 02/27/19 22:02 Dose: 3.125 mg Clopidogrel Bisulfate (Plavix) 75 mg PO DAILY [facility] Last Admin: 02/27/19 06:11 Dose: 75 mg Dextrose (D50w Syringe) 0 gm IV X1 PRN; Protocol PRN Reason: Hypoglycemia Enoxaparin Sodium (Lovenox) 40 mg SC DAILY [facility] Furosemide (Lasix) 40 mg PO DAILY [facility] Glucagon () 1 mg IM .X1 PRN PRN Reason: Hypoglycemia Heparin Sodium (Beef Lung) (Heparin 500 Unit/5 Ml (100/Ml)) 500 unit IV UD PRN PRN Reason: HEPARIN FLUSH Sodium Chloride () 1,000 mls @ 0 mls/hr IV .Q0M [facility] Last Admin: 02/27/19 06:13 Dose: 15 mls/hr Insulin Glargine (Lantus ([facility])) 10 units SC QHS [facility] Last Admin: 02/27/19 22:02 Dose: 10 units Insulin Human Lispro (Humalog Kwikpen ([facility])) 0 unit SQ ACHS [facility]; Protocol Last Admin: 02/28/19 07:50 Dose: Not Given Isosorbide Mononitrate (Imdur) 30 mg PO DAILY [facility] Last Admin: 02/27/19 06:11 Dose: 30 mg Labetalol HCl (Trandate) 5 mg IV X1 PRN PRN Reason: SBP > 160 when pulling sheath Lisinopril (Zestril) 10 mg PO DAILY [facility] Last Admin: 02/27/19 06:11 Dose: 10 mg Lorazepam (Ativan) 1 mg PO Q6H PRN PRN PRN Reason: BACK SPASMS/ANXIETY Magnesium Hydroxide (Milk Of Magnesia) 30 ml PO DAILY PRN PRN Reason: Constipation Metoclopramide HCl (Reglan) 5 mg IV Q6 PRN PRN Reason: NAUSEA/VOMITING Morphine Sulfate () 2 mg IV Q4H PRN PRN PRN Reason: Mild back pain (0-2/10) Nitroglycerin (Nitrostat) 0.4 mg SUBLINGUAL Q5M PRN PRN Reason: CHEST PAIN Sodium Chloride () 5 - 15 ml IV UD PRN PRN Reason: SALINE FLUSH Sodium Chloride () 500 ml IV BOLUS PRN PRN Reason: VASO-VAGAL PROTOCOL Code Visit Inpatient E&M: 90610 [facility] L[facility]
--- NOTE | 2019-02-28 08:09 | PN_ITS ---
Patient Problems: Active and Suspected Problems (Last Updated 02/27/19 @ 15:13 by Yelena Graff) NSTEMI (non-ST elevated myocardial infarction) (Acute) Subjective: Patient had sinus pause at about 4:40 AM. It was about 7.8 second. Patient also had episodes of severe bradycardia about heart rate 44/min. Right groin catheter access site is dry with no hematoma. Patient denies chest pain/tightness or shortness of breath. Vitals/I&O's: Vital Signs Temp Pulse Resp BP Pulse Ox 98.1 F 54 L 16 119/59 L 92 02/28/19 00:20 02/28/19 06:00 02/28/19 06:00 02/28/19 06:00 02/28/19 06:00 Oxygen Flow Rate (L/min) 2 Oxygen Delivery Method Room Air Weight: 293 lb 14.019 oz Body Mass Index (BMI) 42.3 Intake and Output for Last 24 Hours 02/26/19 02/27/19 02/28/19 23:59 23:59 23:59 Intake Total 1208 / 1208 1065.4 / 1065.4 240 / 240 Output Total 900 / 900 1900 / 1900 Balance 1208 / 1208 165.4 / 165.4 -1660 / -1660 General: Alert, Oriented x3, Cooperative HEENT: Atraumatic, PERRLA, EOMI, Normocephalic Neck: Supple, No JVD, Negative Carotid Bruits Lungs: Clear to auscultation, Normal air movement, No rhonchi, No wheeze, No rales Cardiovascular: Regular rate, Regular Rhythm, Normal S1, Normal S2, Bradycardic, Murmur - Aortic stenosis systolic midsystolic murmur. Abdomen: Bowel Sounds Present, Soft, Non Tender, Non-Distended Extremities: Capillary Refill Less than 3 Seconds, Edema Skin: No rashes, No breakdown Musculoskeletal: No Tenderness to Palpation of Joints or Extremities, Arthritic Changes Lymphatic: No Cervical, Supraclavicular, or Inguinal Adenopathy Neurological: Cranial nerves II-XII grossly intact, Deep Tendon Reflexes 2+/4 and Symmetrical, Neuro grossly intact Psych/Mental Status: Normal Affect, Appropriate Laboratory Results 02/27/19 10:23: Specimen Type ROCIO, VBG pH 7.34, VBG pO2 36, VBG O2 Sat (Calc) 65, VBG O2 Content 26, VBG Base Excess -1, POC Mix VBG pCO2 Pt Tmp 45.8 02/27/19 10:26: Specimen Type ROCIO, VBG pH 7.35, VBG pO2 37, VBG O2 Sat (Calc) 67, VBG O2 Content 26, VBG Base Excess -1, POC Mix VBG pCO2 Pt Tmp 45.1 02/27/19 10:32: Specimen Type ART, pH 7.35, Bicarbonate Actual 22.6, POC Total CO2 24, Base Excess -3 L, O2 Saturation 93 L, ABG pCO2 41.3, ABG pO2 72 L 02/27/19 11:35: Activated Clotting Time 180 H 02/27/19 13:46: POC Glucose 101 02/27/19 16:28: POC Glucose 168 H 02/27/19 21:56: POC Glucose 159 H 02/28/19 04:25: WBC 8.1, RBC 4.26 L, Hgb 12.2 L, Hct 39.2 L, MCV 92.0, MCH 28.6, MCHC 31.1 L, RDW 14.9 H, RDW Differential 49.1 H, Plt Count 180, MPV 10.4 02/28/19 04:25: Sodium 139, Potassium 4.9, Chloride 107, Carbon Dioxide 24.0, Anion Gap 8, BUN 27 H, Creatinine 1.37 H, Estim Creat Clear Calc 50.17, Est GFR (MDRD) Af Amer 66, Est GFR (MDRD) Non-Af 55 L, BUN/Creatinine Ratio 19.7, Glucose 126 H, Calcium 8.3 L 02/28/19 06:54: POC Glucose 128 H Current Medications Allopurinol (Zyloprim) 300 mg PO DAILY [facility] Last Admin: 02/27/19 16:54 Dose: 300 mg Aspirin (Ecotrin) 81 mg PO DAILY [facility] Last Admin: 02/27/19 06:11 Dose: 81 mg Atorvastatin Calcium (Lipitor) 80 mg PO QHS [facility] Last Admin: 02/27/19 22:03 Dose: 80 mg Atropine Sulfate () 0.5 mg IV UD PRN PRN Reason: HR <50 bpm Carvedilol (Coreg) 3.125 mg PO BID [facility] Last Admin: 02/27/19 22:02 Dose: 3.125 mg Clopidogrel Bisulfate (Plavix) 75 mg PO DAILY [facility] Last Admin: 02/27/19 06:11 Dose: 75 mg Dextrose (D50w Syringe) 0 gm IV X1 PRN; Protocol PRN Reason: Hypoglycemia Enoxaparin Sodium (Lovenox) 40 mg SC DAILY [facility] Furosemide (Lasix) 40 mg PO DAILY [facility] Glucagon () 1 mg IM .X1 PRN PRN Reason: Hypoglycemia Heparin Sodium (Beef Lung) (Heparin 500 Unit/5 Ml (100/Ml)) 500 unit IV UD PRN PRN Reason: HEPARIN FLUSH Sodium Chloride () 1,000 mls @ 0 mls/hr IV .Q0M [facility] Last Admin: 02/27/19 06:13 Dose: 15 mls/hr Insulin Glargine (Lantus (Bk)) 10 units SC QHS [facility] Last Admin: 02/27/19 22:02 Dose: 10 units Insulin Human Lispro (Humalog Kwikpen ([facility])) 0 unit SQ ACHS [facility]; Protocol Last Admin: 02/28/19 07:50 Dose: Not Given Isosorbide Mononitrate (Imdur) 30 mg PO DAILY [facility] Last Admin: 02/27/19 06:11 Dose: 30 mg Labetalol HCl (Trandate) 5 mg IV X1 PRN PRN Reason: SBP > 160 when pulling sheath Lisinopril (Zestril) 10 mg PO DAILY [facility] Last Admin: 02/27/19 06:11 Dose: 10 mg Lorazepam (Ativan) 1 mg PO Q6H PRN PRN PRN Reason: BACK SPASMS/ANXIETY Magnesium Hydroxide (Milk Of Magnesia) 30 ml PO DAILY PRN PRN Reason: Constipation Metoclopramide HCl (Reglan) 5 mg IV Q6 PRN PRN Reason: NAUSEA/VOMITING Morphine Sulfate () 2 mg IV Q4H PRN PRN PRN Reason: Mild back pain (0-2/10) Nitroglycerin (Nitrostat) 0.4 mg SUBLINGUAL Q5M PRN PRN Reason: CHEST PAIN Sodium Chloride () 5 - 15 ml IV UD PRN PRN Reason: SALINE FLUSH Sodium Chloride () 500 ml IV BOLUS PRN PRN Reason: VASO-VAGAL PROTOCOL Medical Necessity - Tobacco Use Smoking Status: Former smoker Tobacco Use: Cigarettes Assessment/Plan All Active Problems (Last Updated 02/27/19 @ 15:13 by Yelena Graff) History of coronary artery stent placement (Resolved 02/27/19) NSTEMI (non-ST elevated myocardial infarction) (Acute) This is a 69-year-old gentleman with history of chronic combined heart failure, dyslipidemia and was admitted with acute onset of chest pain at rest with radiation to his jaw. Troponins were elevated 0.016 to a peak of 12.6 and admitted with non-STEMI. He had similar pain in September [place] was recommended CABG for significant coronary artery disease and aortic stenosis cath was canceled secondary to left lower extremity cellulitis at the site of graft harvested. Was treated with antibiotic at that time. 1 . NSTEMI * 2D echo (02/13/19): EF of 37% with moderate aortic stenosis. * Patient had cardiac cath on 02/27/2019 with PCI stent to proximal RPL and mid RCA and distal RCA. Moderate segmental systolic dysfunction. Mild to moderate . Inferior mid inferior wall hypokinesis. EF 35% by LV gram * currently on aspirin, plavix and statin as well as carvedilol. * Seen by housekeeping worker. 2. Sinus pause: Patient had sinus pause of 7.8-second with severe bradycardia. Patient is on very low-dose of carvedilol. Further housekeeping worker opinion. gout: on allopurinol 3 Chronic combined systolic and diastolic heart failure * EF is 37%, with LV moderate global systolic dysfunction and stage 1 diastolic dysfunction. * On lisinopril 10 mg daily, as well as Imdur. Also on carvedilol. 5. Type 2 diabetes mellitus: Glipizide on hold. On insulin Lantus 10 units nightly. Insulin sliding scale. Accuchecks ACHS 6. Hypertension: on carvedilol and lisinopril 7. Moderate aortic stenosis * echo showed peak aortic valve gradient of 37mmHg and mean aortic valve gradient of 17mmhg; aortic valve area is 1 cm2 * cardiology on board DVT prophylaxis: Start Lovenox after 24 hours of cardiac cath Laboratory Results 02/27/19 16:28: POC Glucose 168 H 02/27/19 21:56: POC Glucose 159 H 02/28/19 04:25: WBC 8.1, RBC 4.26 L, Hgb 12.2 L, Hct 39.2 L, MCV 92.0, MCH 28.6, MCHC 31.1 L, RDW 14.9 H, RDW Differential 49.1 H, Plt Count 180, MPV 10.4 02/28/19 04:25: Sodium 139, Potassium 4.9, Chloride 107, Carbon Dioxide 24.0, Anion Gap 8, BUN 27 H, Creatinine 1.37 H, Estim Creat Clear Calc 50.17, Est GFR (MDRD) Af Amer 66, Est GFR (MDRD) Non-Af 55 L, BUN/Creatinine Ratio 19.7, Glucose 126 H, Calcium 8.3 L 02/28/19 06:54: POC Glucose 128 H L Clinical Impression(s) from Imaging Studies Chest X-Ray 02/24/19 21:44 IMPRESSION: No evidence for acute cardiopulmonary pathology. Active Medications Allopurinol (Zyloprim) 300 mg PO DAILY [facility] Last Admin: 02/27/19 16:54 Dose: 300 mg Aspirin (Ecotrin) 81 mg PO DAILY [facility] Last Admin: 02/27/19 06:11 Dose: 81 mg Atorvastatin Calcium (Lipitor) 80 mg PO QHS [facility] Last Admin: 02/27/19 22:03 Dose: 80 mg Atropine Sulfate () 0.5 mg IV UD PRN PRN Reason: HR <50 bpm Carvedilol (Coreg) 3.125 mg PO BID [facility] Last Admin: 02/27/19 22:02 Dose: 3.125 mg Clopidogrel Bisulfate (Plavix) 75 mg PO DAILY [facility] Last Admin: 02/27/19 06:11 Dose: 75 mg Dextrose (D50w Syringe) 0 gm IV X1 PRN; Protocol PRN Reason: Hypoglycemia Enoxaparin Sodium (Lovenox) 40 mg SC DAILY [facility] Furosemide (Lasix) 40 mg PO DAILY [facility] Glucagon () 1 mg IM .X1 PRN PRN Reason: Hypoglycemia Heparin Sodium (Beef Lung) (Heparin 500 Unit/5 Ml (100/Ml)) 500 unit IV UD PRN PRN Reason: HEPARIN FLUSH Sodium Chloride () 1,000 mls @ 0 mls/hr IV .Q0M [facility] Last Admin: 02/27/19 06:13 Dose: 15 mls/hr Insulin Glargine (Lantus (Bkc)) 10 units SC QHS [facility] Last Admin: 02/27/19 22:02 Dose: 10 units Insulin Human Lispro (Humalog Kwikpen (Bkc)) 0 unit SQ ACHS [facility]; Protocol Last Admin: 02/28/19 07:50 Dose: Not Given Isosorbide Mononitrate (Imdur) 30 mg PO DAILY [facility] Last Admin: 02/27/19 06:11 Dose: 30 mg Labetalol HCl (Trandate) 5 mg IV X1 PRN PRN Reason: SBP > 160 when pulling sheath Lisinopril (Zestril) 10 mg PO DAILY [facility] Last Admin: 02/27/19 06:11 Dose: 10 mg Lorazepam (Ativan) 1 mg PO Q6H PRN PRN PRN Reason: BACK SPASMS/ANXIETY Magnesium Hydroxide (Milk Of Magnesia) 30 ml PO DAILY PRN PRN Reason: Constipation Metoclopramide HCl (Reglan) 5 mg IV Q6 PRN PRN Reason: NAUSEA/VOMITING Morphine Sulfate () 2 mg IV Q4H PRN PRN PRN Reason: Mild back pain (0-2/10) Nitroglycerin (Nitrostat) 0.4 mg SUBLINGUAL Q5M PRN PRN Reason: CHEST PAIN Sodium Chloride () 5 - 15 ml IV UD PRN PRN Reason: SALINE FLUSH Sodium Chloride () 500 ml IV BOLUS PRN PRN Reason: VASO-VAGAL PROTOCOL Code Visit Inpatient E&M: [id number] [place] [id number]
[2019-02-28] MEDS: Clopidogrel Bisulfate 75 MG Tablet PO (08:30)
[2019-02-28] MEDS: Aspirin E.C. 81 MG Tablet PO (08:30)
[2019-02-28] MEDS: Furosemide 40 MG Tablet PO (08:31)
[2019-02-28] MEDS: Lisinopril 10 MG Tablet PO (08:31)
[2019-02-28] MEDS: Isosorbide Mononitrate 30 MG Tablet PO (08:31)
--- NOTE | 2019-02-28 08:31 | PCM.CONS.PUL ---
Problem List (1) JUAN ALBERTO (obstructive sleep apnea) Status: Chronic Comment: History of noncompliance (2) History of coronary artery stent placement Status: Resolved Comment: [id number] RPLB w/ 2.25 x 12 mm Promus Synergy Stent, TAMIA-Distal RCA w/ 2.5 x 16 mm Promus Synergy Stent, and TAMIA-Mid RCA w/ 2.5 x 32 mm Promus Synergy Stent 02/27/19 (3) NSTEMI (non-ST elevated myocardial infarction) Status: Acute (4) Non-rheumatic aortic stenosis Status: Chronic (5) Atherosclerosis of coronary artery without angina pectoris Status: Chronic Comment: [id number] RPLB w/ 2.25 x 12 mm Promus Synergy Stent, TAMIA-Distal RCA w/ 2.5 x 16 mm Promus Synergy Stent, and TAMIA-Mid RCA w/ 2.5 x 32 mm Promus Synergy Stent 02/27/19 (6) Acute on chronic combined systolic (congestive) and diastolic (congestive) heart failure Status: Chronic (7) Hyperlipidemia Status: Chronic (8) Essential (primary) hypertension Status: Chronic (9) Secondary pulmonary arterial hypertension Status: Chronic Reason for Consult Date of Consultation: 02/28/19 Reason for Consultation: Bradycardia, concern for uncontrolled JUAN ALBERTO History of Present Illness: The patient is a 69 year old M, with past medical history listed below, who presented to [facility] on 02/24/2019 secondary to acute onset of chest pain. At that time, patient stated the pain radiated to his jaw and was similar to previous cardiac pain. Patient reportedly had a history of coronary artery disease, but was unable to have intervention secondary to a lower extremity infection. Patient was placed on antibiotics and came back from [place] for evaluation. Patient was reportedly to go through a staged procedure for cardiac revascularization starting on March 06. Patient was given nitroglycerin, aspirin and admitted to the floor. Patient did have stent placement. Patient has been in the intensive care unit following his stent placement. Patient has had episodes of witnessed apneas with sinus pauses as long as 6 seconds. Patient also was having bradycardia episodes down to the mid 30s, so a pulmonary consult was obtained for possible evaluation of sleep apnea. Patient currently has no complaints. Patient is not complaining of any chest pain. Patient does report that he was diagnosed approximately 5 years ago in [place] with obstructive sleep apnea. Patient states he was placed on CPAP at that time, but was unable to tolerate secondary to leak and moving around. Patient states that he has not been compliant with his therapy for over 4 years. Patient states he has had significant weight gain of approximately 85 pounds that he attributes to his cardiac abnormalities and inability to work out. Patient states he used to go to the gym 3 times a week, but currently gets short of breath with walking across the room. Patient does report that he is fatigued throughout the day. Patient does note that he snores, but is unclear of apneas. Patient does occasionally wake up with headaches. Patient routinely falls asleep while watching TV and reading. Patient reportedly has been worked up at [facility] given his history of smoking cigars. Patient states he had a pulmonary function test that did not show any significant obstructive ventilatory defect such as COPD or asthma. Patient does not have the report for evaluation. Patient denies a morning cough. Patient has noted significant lower extremity edema, but is always associated this with his with his cardiac issues. Review of systems otherwise negative x10 systems. Past Medical History Past Medical History (Chronic Problems): Chronic Problems (Last Updated 02/27/19 @ 15:13 by Yelena Graff) JUAN ALBERTO (obstructive sleep apnea) (Chronic) History of noncompliance Non-rheumatic aortic stenosis (Chronic) Atherosclerosis of coronary artery without angina pectoris (Chronic) [id number] RPLB w/ 2.25 x 12 mm Promus Synergy Stent, TAMIA-Distal RCA w/ 2.5 x 16 mm Promus Synergy Stent, and TAMIA-Mid RCA w/ 2.5 x 32 mm Promus Synergy Stent 02/27/19 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) Hyperlipidemia (Chronic) Essential (primary) hypertension (Chronic) Secondary pulmonary arterial hypertension (Chronic) Medical History: Medical History (Last Updated 02/27/19 @ 15:13 by Yelena Graff) NSTEMI (non-ST elevated myocardial infarction) (Acute) I21.4 Non-rheumatic aortic stenosis (Chronic) I35.0 Atherosclerosis of coronary artery without angina pectoris (Chronic) I25.10 [id number] RPLB w/ 2.25 x 12 mm Promus Synergy Stent, TAMIA-Distal RCA w/ 2.5 x 16 mm Promus Synergy Stent, and TAMIA-Mid RCA w/ 2.5 x 32 mm Promus Synergy Stent 02/27/19 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) I50.43 Hyperlipidemia (Chronic) E78.5 Essential (primary) hypertension (Chronic) I10 Secondary pulmonary arterial hypertension (Chronic) I27.21 Bilateral lower extremity edema R60.0 Dermatitis L30.9 Elevated liver enzymes R74.8 Fatty liver K76.0 Gout M10.9 Morbid obesity E66.01 Obstructive sleep apnea G47.33 Osteoarthritis M19.90 Type 2 diabetes mellitus E11.9 Diastolic dysfunction (Inactive) I51.9 Allergies metformin Adverse Reaction (Verified 02/24/19 21:34) Elevated LDH and anion gap Home Medications: Ambulatory Orders Medication Instructions Recorded Allopurinol [Zyloprim] 300 mg PO DAILY 04/10/16 amoxicillin 500 mg capsule 500 mg PO .COMPLEX 04/14/18 aspirin 81 mg tablet,delayed 81 mg PO QDAY 04/14/18 release atorvastatin 20 mg tablet 40 mg PO QHS tab 01/25/19 carvedilol 6.25 mg tablet 6.25 mg PO BID 01/25/19 furosemide 40 mg tablet 40 mg PO BID tab 01/25/19 glipizide 5 mg tablet 5 mg PO BID 01/25/19 lisinopril 10 mg tablet 10 mg PO DAILY 01/25/19 multivitamin tablet 1 tab PO DAILY 01/25/19 nitroglycerin 0.4 mg sublingual 0.4 mg SUBLINGUAL Q5-15M PRN 01/25/19 tablet Isosorbide Mononitrate [Isosorbide 30 mg PO DAILY 02/25/19 Mononitrate ER] Surgical History: Surgical History (Last Updated 02/27/19 @ 15:13 by Yelena Graff) History of coronary artery stent placement (Resolved) Onset Date: 02/27/19 Z95.5 [id number] RPLB w/ 2.25 x 12 mm Promus Synergy Stent, TAMIA-Distal RCA w/ 2.5 x 16 mm Promus Synergy Stent, and TAMIA-Mid RCA w/ 2.5 x 32 mm Promus Synergy Stent 02/27/19 History of appendectomy Z90.49 History of herniorrhaphy Z98.890, Z87.19 History of left heart catheterization Onset Date: 12/29/18 Z98.890 LAD-90% stenosis, LCx 60% stenosis, RCA 90% stenosis, EF 40%, mod 12/29/18 History of tonsillectomy Z90.89 History of total knee replacement (TKR) Z96.659 Surgical History: - - T+A, Appendectomy, Inguinal Hernia repair, R TKR, L Knee Surgery Psychiatric History: No pertinent psych hx Lives: Alone Smoking Status: Former smoker Tobacco Use: Cigarettes Alcohol: None Drugs: None - *Family History Maternal Family History: Family History (Last Reviewed 02/15/19 @ 09:53 by Sabas Bae MD) Mother Diabetes Hypertension Father Diabetes Hypertension Sister Hypertension Brother Diabetes Hypertension Cancer, Onset Age: 50 CAD (coronary artery disease) History Items: No pertinent history Paternal Family History: Family History (Last Reviewed 02/15/19 @ 09:53 by Sabas Bae MD) Mother Diabetes Hypertension Father Diabetes Hypertension Sister Hypertension Brother Diabetes Hypertension Cancer, Onset Age: 50 CAD (coronary artery disease) History Items: No pertinent history Review of Systems Comment: See HPI Patient Problems: Active and Suspected Problems (Last Updated 02/27/19 @ 15:13 by Yelena Graff) NSTEMI (non-ST elevated myocardial infarction) (Acute) Objective: JAN completed during this hospitalization showed an EF of 35% with moderate global hypokinesis of the left ventricle. Patient was noted to have moderate aortic stenosis with a calculated valve area between 1.4 and 1.9 cm? with mild aortic valve insufficiency. Inadequate pulmonary artery jet noted. No PFTs available for review. - Physical Exam General: Alert, Oriented x3, Cooperative, Well developed, Well nourished, - - No conversational dyspnea. HEENT: Atraumatic, PERRLA, EOMI, Normocephalic, - - No scleral icterus or injection noted. Oral: Moist Mucosa, No Gingival or Mucosal Lesions/ Ulcerations Neck: Supple, No JVD, No Nodes, Trachea Midline Lungs: No rhonchi, No wheeze, No rales, Diminished, - - Symmetric expansion. No dullness to percussion. Cardiovascular: Regular rate, Regular Rhythm, Normal S1, Normal S2, Murmur - Grade 2 out of 6 systolic ejection murmur at the right sternal border Abdomen: Bowel Sounds Present, Soft, Non Tender, Non-Distended, Obese Extremities: No clubbing, No cyanosis, Capillary Refill Less than 3 Seconds, Edema Skin: No rashes, No breakdown Musculoskeletal: No Tenderness to Palpation of Joints or Extremities Lymphatic: No Cervical, Supraclavicular, or Inguinal Adenopathy Neurological: Cranial nerves II-XII grossly intact, Neuro grossly intact, Motor Exam 5/5 strength throughout Psych/Mental Status: Alert and oriented to time, place, person, mood and affect Vital Signs Temp Pulse Resp BP Pulse Ox 36.7 C 54 L 16 119/59 L 92 02/28/19 00:20 02/28/19 06:00 02/28/19 06:00 02/28/19 06:00 02/28/19 06:00 Oxygen Flow Rate (L/min) 2 Oxygen Delivery Method Room Air Weight: 133.3 kg Body Mass Index (BMI) 42.3 Intake and Output for Last 24 Hours 02/26/19 02/27/19 02/28/19 23:59 23:59 23:59 Intake Total 1208 / 1208 1065.4 / 1065.4 240 / 240 Output Total 900 / 900 1900 / 1900 Balance 1208 / 1208 165.4 / 165.4 -1660 / -1660 Laboratory Tests Past 24 Hrs 02/27/19 02/27/19 02/27/19 10:23 10:26 10:32 WBC RBC Hgb Hct MCV MCH MCHC RDW RDW Differential Plt Count MPV Activated Clotting Time Specimen Type ROCIO ROCIO ART pH 7.35 Bicarbonate Actual 22.6 POC Total CO2 24 Base Excess -3 L O2 Saturation 93 L ABG pCO2 41.3 ABG pO2 72 L VBG pH 7.34 7.35 VBG pO2 36 37 VBG O2 Sat (Calc) 65 67 VBG O2 Content 26 26 VBG Base Excess -1 -1 POC Mix VBG pCO2 Pt Tmp 45.8 45.1 Sodium Potassium Chloride Carbon Dioxide Anion Gap BUN Creatinine Estim Creat Clear Calc Est GFR (MDRD) Af Amer Est GFR (MDRD) Non-Af BUN/Creatinine Ratio Glucose Calcium 02/27/19 02/28/19 02/28/19 11:35 04:25 04:25 WBC 8.1 RBC 4.26 L Hgb 12.2 L Hct 39.2 L MCV 92.0 MCH 28.6 MCHC 31.1 L RDW 14.9 H RDW Differential 49.1 H Plt Count 180 MPV 10.4 Activated Clotting Time 180 H Specimen Type pH Bicarbonate Actual POC Total CO2 Base Excess O2 Saturation ABG pCO2 ABG pO2 VBG pH VBG pO2 VBG O2 Sat (Calc) VBG O2 Content VBG Base Excess POC Mix VBG pCO2 Pt Tmp Sodium 139 Potassium 4.9 Chloride 107 Carbon Dioxide 24.0 Anion Gap 8 BUN 27 H Creatinine 1.37 H Estim Creat Clear Calc 50.17 Est GFR (MDRD) Af Amer 66 Est GFR (MDRD) Non-Af 55 L BUN/Creatinine Ratio 19.7 Glucose 126 H Calcium 8.3 L POC Glucose 02/28/19 02/27/19 02/27/19 06:54 21:56 16:28 POC Glucose 128 H 159 H 168 H 02/27/19 13:46 POC Glucose 101 Clinical Impression(s) from Imaging Studies Chest X-Ray 02/24/19 21:44 IMPRESSION: No evidence for acute cardiopulmonary pathology. Electronically Signed: Delta Holland MD at 22:08 EDT , Service support , Assessment/Plan All Active Problems (Last Updated 02/27/19 @ 15:13 by Yelena Graff) History of coronary artery stent placement (Resolved 02/27/19) NSTEMI (non-ST elevated myocardial infarction) (Acute) RECOMMENDATIONS: 1. Initiate home CPAP with all sleep 2. Repeat titration as an outpatient 3. Follow-up with nurse practitioner 2 weeks after discharge 4. Encourage weight loss, avoid benzodiazepines and narcotics IMPRESSIONS: 1. Nocturnal bradycardia secondary to uncontrolled obstructive sleep apnea Patient does report a history of obstructive sleep apnea in the past. Patient does have an 85 pound weight gain since that time and has relatively advanced congestive heart failure from ischemia. Patient may have an element of central sleep apnea. Repeat titration is likely indicated. However, patient is likely okay to go home and initiate previous CPAP settings until outpatient polysomnogram can be obtained. Patient understands that weight loss will be necessary. 2. Non-ST elevation PR/aortic stenosis/sinus pause/chronic combined congestive heart failure/diabetes mellitus type 2/hypertension Complicates care, management, recovery and prognosis. Cardiology is currently following. Patient is on medical management. Patient does not appear to be in acute exacerbation of CHF from my perspective. Doubt beta-trav needs to be held from my perspective if sleep apnea can be controlled. Code Visit Inpatient E&M: 94271 Init Hosp L2
[2019-02-28] MEDS: Allopurinol 300 MG Tablet PO (08:32)
--- NOTE | 2019-02-28 08:41 | CON.PCM_ITS ---
Problem List (1) JUAN ALBERTO (obstructive sleep apnea) Status: Chronic Comment: History of noncompliance (2) History of coronary artery stent placement Status: Resolved Comment: [id number] RPLB w/ 2.25 x 12 mm Promus Synergy Stent, TAMIA-Distal RCA w/ 2.5 x 16 mm Promus Synergy Stent, and TAMIA-Mid RCA w/ 2.5 x 32 mm Promus Synergy Stent 02/27/19 (3) NSTEMI (non-ST elevated myocardial infarction) Status: Acute (4) Non-rheumatic aortic stenosis Status: Chronic (5) Atherosclerosis of coronary artery without angina pectoris Status: Chronic Comment: [id number] RPLB w/ 2.25 x 12 mm Promus Synergy Stent, TAMIA-Distal RCA w/ 2.5 x 16 mm Promus Synergy Stent, and TAMIA-Mid RCA w/ 2.5 x 32 mm Promus Synergy Stent 02/27/19 (6) Acute on chronic combined systolic (congestive) and diastolic (congestive) heart failure Status: Chronic (7) Hyperlipidemia Status: Chronic (8) Essential (primary) hypertension Status: Chronic (9) Secondary pulmonary arterial hypertension Status: Chronic Reason for Consult Date of Consultation: 02/28/19 Reason for Consultation: Bradycardia, concern for uncontrolled JUAN ALBERTO History of Present Illness: The patient is a 69 year old M, with past medical history listed below, who presented to [facility] on 02/24/2019 secondary to acute onset of chest pain. At that time, patient stated the pain radiated to his jaw and was similar to previous cardiac pain. Patient reportedly had a history of coronary artery disease, but was unable to have intervention secondary to a lower extremity infection. Patient was placed on antibiotics and came back from [place] for evaluation. Patient was reportedly to go through a staged procedure for cardiac revascularization starting on March 06. Patient was given nitroglycerin, aspirin and admitted to the floor. Patient did have stent placement. Patient has been in the intensive care unit following his stent placement. Patient has had episodes of witnessed apneas with sinus pauses as long as 6 seconds. Patient also was having bradycardia episodes down to the mid 30s, so a pulmonary consult was obtained for possible evaluation of sleep apnea. Patient currently has no complaints. Patient is not complaining of any chest pain. Patient does report that he was diagnosed approximately 5 years ago in [place] with obstructive sleep apnea. Patient states he was placed on CPAP at that time, but was unable to tolerate secondary to leak and moving around. Patient states that he has not been compliant with his therapy for over 4 years. Patient states he has had significant weight gain of approximately 85 pounds that he attributes to his cardiac abnormalities and inability to work out. Patient states he used to go to the gym 3 times a week, but currently gets short of breath with walking across the room. Patient does report that he is fatigued throughout the day. Patient does note that he snores, but is unclear of apneas. Patient does occasionally wake up with headaches. Patient routinely falls asleep while watching TV and reading. Patient reportedly has been worked up at [facility] given his history of smoking cigars. Patient states he had a pulmonary function test that did not show any significant obstructive ventilatory defect such as COPD or asthma. Patient does not have the report for evaluation. Patient denies a morning cough. Patient has noted significant lower extremity edema, but is always a ssociated this with his with his cardiac issues. Review of systems otherwise negative x10 systems. Past Medical History Past Medical History (Chronic Problems): Chronic Problems (Last Updated 02/27/19 @ 15:13 by Yelena Graff) JUAN ALBERTO (obstructive sleep apnea) (Chronic) History of noncompliance Non-rheumatic aortic stenosis (Chronic) Atherosclerosis of coronary artery without angina pectoris (Chronic) [id number] RPLB w/ 2.25 x 12 mm Promus Synergy Stent, TAMIA-Distal RCA w/ 2.5 x 16 mm Promus Synergy Stent, and TAMIA-Mid RCA w/ 2.5 x 32 mm Promus Synergy Stent 02/27/19 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) Hyperlipidemia (Chronic) Essential (primary) hypertension (Chronic) Secondary pulmonary arterial hypertension (Chronic) Medical History: Medical History (Last Updated 02/27/19 @ 15:13 by Yelena Graff) NSTEMI (non-ST elevated myocardial infarction) (Acute) I21.4 Non-rheumatic aortic stenosis (Chronic) I35.0 Atherosclerosis of coronary artery without angina pectoris (Chronic) I25.10 [id number] RPLB w/ 2.25 x 12 mm Promus Synergy Stent, TAMIA-Distal RCA w/ 2.5 x 16 mm Promus Synergy Stent, and TAMIA-Mid RCA w/ 2.5 x 32 mm Promus Synergy Stent 02/27/19 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) I50.43 Hyperlipidemia (Chronic) E78.5 Essential (primary) hypertension (Chronic) I10 Secondary pulmonary arterial hypertension (Chronic) I27.21 Bilateral lower extremity edema R60.0 Dermatitis L30.9 Elevated liver enzymes R74.8 Fatty liver K76.0 Gout M10.9 Morbid obesity E66.01 Obstructive sleep apnea G47.33 Osteoarthritis M19.90 Type 2 diabetes mellitus E11.9 Diastolic dysfunction (Inactive) I51.9 Allergies metformin Adverse Reaction (Verified 02/24/19 21:34) Elevated LDH and anion gap Home Medications: Ambulatory Orders Medication Instructions Recorded Allopurinol [Zyloprim] 300 mg PO DAILY 04/10/16 amoxicillin 500 mg capsule 500 mg PO .COMPLEX 04/14/18 aspirin 81 mg tablet,delayed 81 mg PO QDAY 04/14/18 release atorvastatin 20 mg tablet 40 mg PO QHS tab 01/25/19 carvedilol 6.25 mg tablet 6.25 mg PO BID 01/25/19 furosemide 40 mg tablet 40 mg PO BID tab 01/25/19 glipizide 5 mg tablet 5 mg PO BID 01/25/19 lisinopril 10 mg tablet 10 mg PO DAILY 01/25/19 multivitamin tablet 1 tab PO DAILY 01/25/19 nitroglycerin 0.4 mg sublingual 0.4 mg SUBLINGUAL Q5-15M PRN 01/25/19 tablet Isosorbide Mononitrate [Isosorbide 30 mg PO DAILY 02/25/19 Mononitrate ER] Surgical History: Surgical History (Last Updated 02/27/19 @ 15:13 by Yelena Graff) History of coronary artery stent placement (Resolved) Onset Date: 02/27/19 Z95.5 [id number] RPLB w/ 2.25 x 12 mm Promus Synergy Stent, TAMIA-Distal RCA w/ 2.5 x 16 mm Promus Synergy Stent, and TAMIA-Mid RCA w/ 2.5 x 32 mm Promus Synergy Stent 02/27/19 History of appendectomy Z90.49 History of herniorrhaphy Z98.890, Z87.19 History of left heart catheterization Onset Date: 12/29/18 Z98.890 LAD-90% stenosis, LCx 60% stenosis, RCA 90% stenosis, EF 40%, mod 12/29/18 History of tonsillectomy Z90.89 History of total knee replacement (TKR) Z96.659 Surgical History: - - T+A, Appendectomy, Inguinal Hernia repair, R TKR, L Knee Surgery Psychiatric History: No pertinent psych hx Lives: Alone Smoking Status: Former smoker Tobacco Use: Cigarettes Alcohol: None Drugs: None - *Family History Maternal Family History: Family History (Last Reviewed 02/15/19 @ 09:53 by Sabas Bae MD) Mother Diabetes Hypertension Father Diabetes Hypertension Sister Hypertension Brother Diabetes Hypertension Cancer, Onset Age: 50 CAD (coronary artery disease) History Items: No pertinent history Paternal Family History: Family History (Last Reviewed 02/15/19 @ 09:53 by Sabas Bae MD) Mother Diabetes Hypertension Father Diabetes Hypertension Sister Hypertension Brother Diabetes Hypertension Cancer, Onset Age: 50 CAD (coronary artery disease) History Items: No pertinent history Review of Systems Comment: See HPI Patient Problems: Active and Suspected Problems (Last Updated 02/27/19 @ 15:13 by Yelena Graff) NSTEMI (non-ST elevated myocardial infarction) (Acute) Objective: JAN completed during this hospitalization showed an EF of 35% with moderate global hypokinesis of the left ventricle. Patient was noted to have moderate aortic stenosis with a calculated valve area between 1.4 and 1.9 cm? with mild aortic valve insufficiency. Inadequate pulmonary artery jet noted. No PFTs available for review. - Physical Exam General: Alert, Oriented x3, Cooperative, Well developed, Well nourished, - - No conversational dyspnea. HEENT: Atraumatic, PERRLA, EOMI, Normocephalic, - - No scleral icterus or injection noted. Oral: Moist Mucosa, No Gingival or Mucosal Lesions/ Ulcerations Neck: Supple, No JVD, No Nodes, Trachea Midline Lungs: No rhonchi, No wheeze, No rales, Diminished, - - Symmetric expansion. No dullness to percussion. Cardiovascular: Regular rate, Regular Rhythm, Normal S1, Normal S2, Murmur - Grade 2 out of 6 systolic ejection murmur at the right sternal border Abdomen: Bowel Sounds Present, Soft, Non Tender, Non-Distended, Obese Extremities: No clubbing, No cyanosis, Capillary Refill Less than 3 Seconds, Edema Skin: No rashes, No breakdown Musculoskeletal: No Tenderness to Palpation of Joints or Extremities Lymphatic: No Cervical, Supraclavicular, or Inguinal Adenopathy Neurological: Cranial nerves II-XII grossly intact, Neuro grossly intact, Motor Exam 5/5 strength throughout Psych/Mental Status: Alert and oriented to time, place, person, mood and affect Vital Signs Temp Pulse Resp BP Pulse Ox 36.7 C 54 L 16 119/59 L 92 02/28/19 00:20 02/28/19 06:00 02/28/19 06:00 02/28/19 06:00 02/28/19 06:00 Oxygen Flow Rate (L/min) 2 Oxygen Delivery Method Room Air Weight: 133.3 kg Body Mass Index (BMI) 42.3 Intake and Output for Last 24 Hours 02/26/19 02/27/19 02/28/19 23:59 23:59 23:59 Intake Total 1208 / 1208 1065.4 / 1065.4 240 / 240 Output Total 900 / 900 1900 / 1900 Balance 1208 / 1208 165.4 / 165.4 -1660 / -1660 Laboratory Tests Past 24 Hrs 02/27/19 02/27/19 02/27/19 10:23 10:26 10:32 WBC RBC Hgb Hct MCV MCH MCHC RDW RDW Differential Plt Count MPV Activated Clotting Time Specimen Type ROCIO ROCIO ART pH 7.35 Bicarbonate Actual 22.6 POC Total CO2 24 Base Excess -3 L O2 Saturation 93 L ABG pCO2 41.3 ABG pO2 72 L VBG pH 7.34 7.35 VBG pO2 36 37 VBG O2 Sat (Calc) 65 67 VBG O2 Content 26 26 VBG Base Excess -1 -1 POC Mix VBG pCO2 Pt Tmp 45.8 45.1 Sodium Potassium Chloride Carbon Dioxide Anion Gap BUN Creatinine Estim Creat Clear Calc Est GFR (MDRD) Af Amer Est GFR (MDRD) Non-Af BUN/Creatinine Ratio Glucose Calcium 02/27/19 02/28/19 02/28/19 11:35 04:25 04:25 WBC 8.1 RBC 4.26 L Hgb 12.2 L Hct 39.2 L MCV 92.0 MCH 28.6 MCHC 31.1 L RDW 14.9 H RDW Differential 49.1 H Plt Count 180 MPV 10.4 Activated Clotting Time 180 H Specimen Type pH Bicarbonate Actual POC Total CO2 Base Excess O2 Saturation ABG pCO2 ABG pO2 VBG pH VBG pO2 VBG O2 Sat (Calc) VBG O2 Content VBG Base Excess POC Mix VBG pCO2 Pt Tmp Sodium 139 Potassium 4.9 Chloride 107 Carbon Dioxide 24.0 Anion Gap 8 BUN 27 H Creatinine 1.37 H Estim Creat Clear Calc 50.17 Est GFR (MDRD) Af Amer 66 Est GFR (MDRD) Non-Af 55 L BUN/Creatinine Ratio 19.7 Glucose 126 H Calcium 8.3 L POC Glucose 02/28/19 02/27/19 02/27/19 06:54 21:56 16:28 POC Glucose 128 H 159 H 168 H 02/27/19 13:46 POC Glucose 101 Clinical Impression(s) from Imaging Studies Chest X-Ray 02/24/19 21:44 IMPRESSION: No evidence for acute cardiopulmonary pathology. Electronically Signed: Delta Holland MD at 22:08 EDT , Service support , Assessment/Plan All Active Problems (Last Updated 02/27/19 @ 15:13 by Yelena Graff) History of coronary artery stent placement (Resolved 02/27/19) NSTEMI (non-ST elevated myocardial infarction) (Acute) RECOMMENDATIONS: 1. Initiate home CPAP with all sleep 2. Repeat titration as an outpatient 3. Follow-up with nurse practitioner 2 weeks after discharge 4. Encourage weight loss, avoid benzodiazepines and narcotics IMPRESSIONS: 1. Nocturnal bradycardia secondary to uncontrolled obstructive sleep apnea Patient does report a history of obstructive sleep apnea in the past. Patient does have an 85 pound weight gain since that time and has relatively advanced congestive heart failure from ischemia. Patient may have an element of central sleep apnea. Repeat titration is likely indicated. However, patient is likely okay to go home and initiate previous CPAP settings until outpatient polysomnogram can be obtained. Patient understands that weight loss will be necessary. 2. Non-ST elevation OR/aortic stenosis/sinus pause/chronic combined congestive heart failure/diabetes mellitus type 2/hypertension Complicates care, management, recovery and prognosis. Cardiology is currently following. Patient is on medical management. Patient does not appear to be in acute exacerbation of CHF from my perspective. Doubt beta-trav needs to be held from my perspective if sleep apnea can be controlled. Code Visit Inpatient E&M: 01470 Init Hosp L2
--- NOTE | 2019-02-28 10:00 | EKG12_ITS ---
Test Reason : AMEKG Blood Pressure : / mmHG Vent. Rate : 061 BPM Atrial Rate : 061 BPM P-R Int : 186 ms QRS Dur : 092 ms QT Int : 412 ms P-R-T Axes : 048 019 068 degrees QTc Int : 414 ms Normal sinus rhythm Normal ECG When compared with ECG of 27-FEB-2019 12:14, MANUAL COMPARISON REQUIRED, DATA IS UNCONFIRMED Confirmed by PAT ROSS ([id number]), senior technical editor YANET FELDER ([id number]) on 03/06/2019 2:26:58 PM Referred By: ANTOINETTE Confirmed By:CHIN ROSS
[2019-02-28] MEDS: Carvedilol 3.125 MG TABLET PO (10:57)
--- NOTE | 2019-02-28 11:06 | PCM.PN.CARD ---
Subjectve: Patient doing very well this morning, feels much better, no chest pain. Patient did have a 4.2-second episode of sinus bradycardia while he was asleep last evening. Patient has known obstructive sleep apnea but does not use his CPAP over the last 6 years. His right groin is clean/dry/intact, no thrills, bruits or hematoma. EKG shows normal sinus rhythm, no acute changes. Hemoglobin and creatinine are within nominal limits. Objective: Vital Signs Temp Pulse Resp BP Pulse Ox 97.5 F L 66 18 143/41 H 93 02/28/19 08:00 02/28/19 10:00 02/28/19 10:00 02/28/19 10:00 02/28/19 10:00 Oxygen Flow Rate (L/min) 2 Oxygen Delivery Method Room Air Weight: 293 lb 14.019 oz Body Mass Index (BMI) 42.3 Intake and Output for Last 24 Hours 02/26/19 02/27/19 02/28/19 23:59 23:59 23:59 Intake Total 1208 / 1208 1065.4 / 1065.4 240 / 240 Output Total 900 / 900 1900 / 1900 Balance 1208 / 1208 165.4 / 165.4 -1660 / -1660 General: Awake, Alert, Oriented x 3 HEENT: PERRL, EOMI, Sclera Non Icteric Neck: Supple, Good ROM, No Lymph Node Enlargement Lungs: Clear to auscultation Cardiovascular: Regular Rhythm, Normal S1, Normal S2, No Murmurs, No Rubs, No Gallops Vascular: No Carotid Bruits, Normal Femoral Pulses, Normal Radial Pulses, Normal Dorsalis Pedal Pulse, Normal Posterior Tibial Pulses Abdomen: Bowel Sounds Present, Soft, Non Tender, No HSM, No Organomegaly Extremities: No Cyanosis, No Clubbing, No edema Neurological: No Focal Motor or Sensory Deficit 02/27/19 10:23: VBG pH 7.34, VBG pO2 36, VBG O2 Sat (Calc) 65, VBG O2 Content 26, VBG Base Excess -1 02/27/19 10:26: VBG pH 7.35, VBG pO2 37, VBG O2 Sat (Calc) 67, VBG O2 Content 26, VBG Base Excess -1 02/27/19 10:32: pH 7.35, Bicarbonate Actual 22.6, POC Total CO2 24, Base Excess -3 L, O2 Saturation 93 L, ABG pCO2 41.3, ABG pO2 72 L 02/28/19 04:25: WBC 8.1, RBC 4.26 L, Hgb 12.2 L, Hct 39.2 L, MCV 92.0, MCH 28.6, MCHC 31.1 L, RDW 14.9 H, RDW Differential 49.1 H, Plt Count 180, MPV 10.4 02/28/19 04:25: Sodium 139, Potassium 4.9, Chloride 107, Carbon Dioxide 24.0, Anion Gap 8, BUN 27 H, Creatinine 1.37 H, Est GFR (MDRD) Af Amer 66, Est GFR (MDRD) Non-Af 55 L, BUN/Creatinine Ratio 19.7, Glucose 126 H, Calcium 8.3 L Rhythm: EKG: ECHO: Stress Test: Cardiac Cath: PCI: CT Surgery: Holter monitor: EPS: PPM: CXR: Chest CT Scan: Medical Necessity - Tobacco Use Smoking Status: Former smoker Tobacco Use: Cigarettes Assessment/Plan 1. Coronary artery disease: The patient underwent successful aspirin and Plavix assisted PCI of his proximal posterior lateral branch, distal RCA, and mid RCA with an excellent result. His JAN demonstrated at most moderate aortic stenosis. Patient had a nuclear stress test about a year ago with Dr. Bae which showed no overt ischemia. I recommend the patient continue baby aspirin, Plavix, and continue his low-dose Coreg for his LV dysfunction, coronary disease and for afterload reduction. Patient sinus bradycardia was during his sleep, most likely a result of his obstructive sleep apnea which is currently untreated. Patient will undergo a treadmill echocardiogram in 2 weeks time to determine if he has any evidence of anterior ischemia or inferior lateral ischemia corresponding to his mid LAD and left circumflex arteries respectively. If he has any evidence of this or has recurrent chest pain I would have a low threshold for intervention of his mid LAD and left circumflex. 2. Hyperlipidemia: Continue statin based medications. Repeat lipid profile after cardiac rehab is been completed. 3. Chronic renal insufficiency: Patient's creatinine has been stable post procedure. Patient most likely require IV fluid hydration prior to his next angioplasty if this is indicated. 4. Aortic stenosis: Patient's transesophageal echocardiogram yesterday morning demonstrated moderate aortic stenosis, which would not be appreciably better with the aortic valve replacement at this time. He has had no sentinel events such as presyncope or syncope. His pulmonary pressures were in the mild to moderate range as well. He has been started on Lasix 40 mill grams p.o. daily for decompression of his pulmonary arteries. 5. Patient may be discharged home today, and follow-up with Dr. Bae going forward. Code Visit Inpatient E&M: 05676 Subs Hosp L2
[2019-02-28] MEDS: Insulin Lispro 100 UNIT/ML INSULN.PEN SQ (11:41)
--- NOTE | 2019-02-28 11:51 | DCINST_ITS ---
- Discharge Diagnoses Current Active Problems: Current Active and Chronic Problems (Last Updated 02/27/19 @ 15:13 by Yelena Graff) JUAN ALBERTO (obstructive sleep apnea) (Chronic) History of noncompliance NSTEMI (non-ST elevated myocardial infarction) (Acute) You will use the following diet at home:: Calorie/Carbohydrate Controlled (specify 1200, 1400, etc) - 1800 ADA diet, Cardiac Your food should be the consistency of: Regular Discharge Activity: May Not Drive - for 1 week Call your doctor if you observe: Fever of 101 or Higher, Inability to urinate, Inability to have a bowel movement, Shortness of breath, Dizziness, Fainting spells, Swelling in the ankles, Chest pain, Increased palpitations (irregular heartbeat) Additional Instructions: stress ECHO in 2 weeks to determine evidence of anterior or inferior lateral ischemia corresponding with mid LAD and left circumflex stenosis respectively Allergies/Adverse Reactions: Allergies metformin Adverse Reaction (Verified 02/24/19 21:34) Elevated LDH and anion gap Medications to take at Discharge Allopurinol [Zyloprim] 300 mg PO DAILY 04/10/16 aspirin 81 mg tablet,delayed release 81 mg PO QDAY 04/14/18 glipizide 5 mg tablet 5 mg PO BID 01/25/19 lisinopril 10 mg tablet 10 mg PO DAILY 01/25/19 multivitamin tablet 1 tab PO DAILY 01/25/19 nitroglycerin 0.4 mg sublingual tablet 0.4 mg SUBLINGUAL Q5-15M PRN 01/25/19 Isosorbide Mononitrate [Isosorbide Mononitrate ER] 30 mg PO DAILY 02/25/19 Atorvastatin Calcium [Lipitor] 80 mg PO QHS #30 tablet 02/28/19 Carvedilol [Coreg (Beta Betty)] 3.125 mg PO BID #60 tablet 02/28/19 Clopidogrel Bisulfate [Plavix] 75 mg PO DAILY #30 tablet 02/28/19 Furosemide 40 mg PO DAILY #0 tab 02/28/19 The following prescriptions were given: Atorvastatin Calcium [Lipitor] 80 mg PO QHS #30 tablet Clopidogrel Bisulfate [Plavix] 75 mg PO DAILY #30 tablet Carvedilol [Coreg (Beta Betty)] 3.125 mg PO BID #60 tablet Orders to be completed after discharge: Phase II, Outpatient Cardiac Rehab Location: None Selected Primary Care Physician: Boston Figueroa MD [Primary Care Provider] - Please follow up with your Primary Care Physician in: in 2 week Test Results: Test results from this visit will be discussed in further detail at your follow- up appointment, if applicable. Please Follow Up With: Sabas Bae MD When: in 2 weeks with stress ECHO AFTER 2 week Please Follow Up With: Wild Jalloh MD When: with Maricruz Vargas in 2 weeks for outpatient sleep study
--- NOTE | 2019-02-28 12:02 | DS.PCM_ITS ---
Discharge Date and Diagnosis - Problem List Patient Problems: Active and Suspected Problems (Last Updated 02/27/19 @ 15:13 by Yelena Graff) NSTEMI (non-ST elevated myocardial infarction) (Acute) Date of Admission: 02/24/19 Date of Discharge: 02/28/19 - Primary Discharge Diagnosis Active and Suspected Problems (Last Updated 02/27/19 @ 15:13 by Yelena Graff) NSTEMI (non-ST elevated myocardial infarction) (Acute) - Secondary Discharge Diagnosis Chronic Problems (Last Updated 02/27/19 @ 15:13 by Yelena Graff) JUAN ALBERTO (obstructive sleep apnea) (Chronic) History of noncompliance Non-rheumatic aortic stenosis (Chronic) Atherosclerosis of coronary artery without angina pectoris (Chronic) [id number] RPLB w/ 2.25 x 12 mm Promus Synergy Stent, TAMIA-Distal RCA w/ 2.5 x 16 mm Promus Synergy Stent, and TAMIA-Mid RCA w/ 2.5 x 32 mm Promus Synergy Stent 02/27/19 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 Troponins were elevated 0.016 to a peak of 12.6 and admitted with non-STEMI. He had similar pain in September [place] was recommended CABG for significant coronary artery disease and aortic stenosis cath was canceled secondary to left lower extremity cellulitis at the site of graft harvested. Was treated with antibiotic at that time. 1 . NSTEMI * 2D echo (02/13/19): EF of 37% with moderate aortic stenosis. EKG showed normal sinus rhythm with nonspecific ST-T changes. * Patient had cardiac cath on 02/27/2019 with PCI stent to proximal RPL and mid RCA and distal RCA. Moderate segmental systolic dysfunction. Mild to moderate . Inferior mid inferior wall hypokinesis. EF 35% by LV gram * currently on aspirin, plavix and statin as well as carvedilol. * Seen by nitric acid concentrator operator, Dr. Ball. He advised follow-up with Dr. alfredo in 2 weeks with repeat stress echo to determine evidence of anterior or inferior lateral ischemia corresponding with mid LAD and left circumflex stenosis respectively. 2. Sinus pause sinus bradycardia secondary to obstructive sleep apnea: Patient had sinus pause of 7.8-second with severe bradycardia. Patient is on very low- dose of carvedilol. Research Chef was consulted it was thought that he has sinus pause with bradycardia in 40s secondary to obstructive sleep apnea. Patient used to wear CPAP but he quit using it about 4 years ago. Was advised to use CPAP at home setting and follow-up in 2 weeks and pulmonary clinic with nurse practitioner Maricruz Vargas. 3. gout: on allopurinol Chronic combined systolic and diastolic heart failure * EF is 37%, with LV moderate global systolic dysfunction and stage 1 diastolic dysfunction. * On lisinopril 10 mg daily, as well as Imdur. Also on carvedilol. 5. Type 2 diabetes mellitus: Glipizide on hold. On insulin Lantus 10 units nightly. Insulin sliding scale. Accuchecks ACHS 6. Hypertension: on carvedilol and lisinopril 7. Moderate aortic stenosis * echo showed peak aortic valve gradient of 37mmHg and mean aortic valve gradient of 17mmhg; aortic valve area is 1.5-1.9 cm2 * cardiology on board DVT prophylaxis: Discharge medication reconciliation done. Discharge follow-up instructions completed. Discharge process discussed with the patient and all questions were answered to patient's satisfaction. Patient is being discharged on aspirin, Plavix, high intensity atorvastatin, Lasix 40 daily, low-dose Coreg 3.125 mg twice daily and lisinopril. Total time spent, exact 35 minutes on discharge meds reconciliation, examinatio n, review of imaging and blood test and discussion with the patient on follow-up instructions. Patient Problems: Active and Suspected Problems (Last Updated 02/27/19 @ 15:13 by Yelena Graff) NSTEMI (non-ST elevated myocardial infarction) (Acute) Subjective: Please see progress note of today - Physical Exam Vital Signs Temp Pulse Resp BP Pulse Ox 97.5 F L 68 16 156/69 H 94 02/28/19 08:00 02/28/19 11:37 02/28/19 11:00 02/28/19 11:00 02/28/19 11:00 Oxygen Flow Rate (L/min) 2 Oxygen Delivery Method Room Air Weight: 293 lb 14.019 oz Body Mass Index (BMI) 42.3 Intake and Output for Last 24 Hours 02/26/19 02/27/19 02/28/19 23:59 23:59 23:59 Intake Total 1208 / 1208 1065.4 / 1065.4 240 / 240 Output Total 900 / 900 1900 / 1900 Balance 1208 / 1208 165.4 / 165.4 -1660 / -1660 Laboratory Tests Past 24 Hrs 02/27/19 02/27/19 02/27/19 10:23 10:26 10:32 WBC RBC Hgb Hct MCV MCH MCHC RDW RDW Differential Plt Count MPV Activated Clotting Time Specimen Type ROCIO ROCIO ART pH 7.35 Bicarbonate Actual 22.6 POC Total CO2 24 Base Excess -3 L O2 Saturation 93 L ABG pCO2 41.3 ABG pO2 72 L VBG pH 7.34 7.35 VBG pO2 36 37 VBG O2 Sat (Calc) 65 67 VBG O2 Content 26 26 VBG Base Excess -1 -1 POC Mix VBG pCO2 Pt Tmp 45.8 45.1 Sodium Potassium Chloride Carbon Dioxide Anion Gap BUN Creatinine Estim Creat Clear Calc Est GFR (MDRD) Af Amer Est GFR (MDRD) Non-Af BUN/Creatinine Ratio Glucose Calcium 02/27/19 02/28/19 02/28/19 11:35 04:25 04:25 WBC 8.1 RBC 4.26 L Hgb 12.2 L Hct 39.2 L MCV 92.0 MCH 28.6 MCHC 31.1 L RDW 14.9 H RDW Differential 49.1 H Plt Count 180 MPV 10.4 Activated Clotting Time 180 H Specimen Type pH Bicarbonate Actual POC Total CO2 Base Excess O2 Saturation ABG pCO2 ABG pO2 VBG pH VBG pO2 VBG O2 Sat (Calc) VBG O2 Content VBG Base Excess POC Mix VBG pCO2 Pt Tmp Sodium 139 Potassium 4.9 Chloride 107 Carbon Dioxide 24.0 Anion Gap 8 BUN 27 H Creatinine 1.37 H Estim Creat Clear Calc 50.17 Est GFR (MDRD) Af Amer 66 Est GFR (MDRD) Non-Af 55 L BUN/Creatinine Ratio 19.7 Glucose 126 H Calcium 8.3 L POC Glucose 02/28/19 02/27/19 02/27/19 06:54 21:56 16:28 POC Glucose 128 H 159 H 168 H 02/27/19 13:46 POC Glucose 101 Discharge Activity: May Not Drive - for 1 week Call your doctor if you observe: Fever of 101 or Higher, Inability to urinate, Inability to have a bowel movement, Shortness of breath, Dizziness, Fainting spells, Swelling in the ankles, Chest pain, Increased palpitations (irregular heartbeat) Home Medications: Medications to take at Discharge Allopurinol [Zyloprim] 300 mg PO DAILY 04/10/16 aspirin 81 mg tablet,delayed release 81 mg PO QDAY 04/14/18 glipizide 5 mg tablet 5 mg PO BID 01/25/19 lisinopril 10 mg tablet 10 mg PO DAILY 01/25/19 multivitamin tablet 1 tab PO DAILY 01/25/19 nitroglycerin 0.4 mg sublingual tablet 0.4 mg SUBLINGUAL Q5-15M PRN 01/25/19 Isosorbide Mononitrate [Isosorbide Mononitrate ER] 30 mg PO DAILY 02/25/19 Atorvastatin Calcium [Lipitor] 80 mg PO QHS #30 tablet 02/28/19 Carvedilol [Coreg (Beta Betty)] 3.125 mg PO BID #60 tablet 02/28/19 Clopidogrel Bisulfate [Plavix] 75 mg PO DAILY #30 tablet 02/28/19 Furosemide 40 mg PO DAILY #0 tab 02/28/19 Following Prescrptions Were Given to Patient: Atorvastatin Calcium [Lipitor] 80 mg PO QHS #30 tablet Clopidogrel Bisulfate [Plavix] 75 mg PO DAILY #30 tablet Carvedilol [Coreg (Beta Betty)] 3.125 mg PO BID #60 tablet Other Amb Orders: Phase II, Outpatient Cardiac Rehab Location: None Selected Primary Care Physician: Boston Figueroa MD [Primary Care Provider] - Please follow up with your Primary Care Physician in: in 2 week Please Follow Up With: Sabas Alfredo MD When: in 2 weeks with stress ECHO AFTER 2 week Please Follow Up With: Wild Jalloh MD When: with Maricruz Vargas in 2 weeks for outpatient sleep study Medical Necessity - Tobacco Use Smoking Status: Former smoker Tobacco Use: Cigarettes Meaningful Use Info Meaningful Use Diagnoses (Choose all that apply): AMI - AMI Aspirin given w/in 24hrs of arrival?: Yes ASA at discharge?: Yes Statins at discharge?: Yes Alirio/ARB at discharge?: Yes Beta Betty at discharge?: Yes Done w/ Acute NV measure.: Yes Code Visit Inpatient E&M: 88919 Disch Hosp
[2019-02-28 12:10] LABS: Bedside Glucose 239 mg/dL (70-110)
--- NOTE | 2019-03-01 14:44 | CASEMGMT ---
BAILEE CALIX Discharge F/U Phone Call LACE: 11 Strata: 3 Discharge date: 02/28/19 Call date: 03/01/19 Call time: [id number] Duration: 2 minutes Admission dx: NSTEMI Pt states has been 'doing ok' since discharge and states 'I definitely feel like I have been through something.' Pt states no questions regarding discharge instructions or medications at this time. Pt is reminded of f/u appt's that were made and voices understanding. Pt states no suggestions for [facility] at this time and states 'you were all good.' Pt voices no further questions/concerns/needs at this time. [place] BAILEE CALIX
== END 2019-02-28 14:30 | disposition home or self-care (01) | DRG 247 ==
LOC: ED 22:31 → PCU 02-25 00:20 → ICU 02-27 12:01
PROVIDERS: Internal Medicine Cardiovascular Disease; Student in an Organized Health Care Education/Training Program; Admitting Provider Family Medicine; Emergency Provider Emergency Medicine; Family Provider Family Medicine; PCP Family Medicine; Visit Provider Internal Medicine
DX: I21.4 Non-ST elevation (NSTEMI) myocardial infarction (principal); I50.42 Chronic combined systolic (congestive) and diastolic (congestive) heart failure; Z68.41 Body mass index [BMI] 40.0-44.9, adult; M10.9 Gout, unspecified; I25.10 Atherosclerotic heart disease of native coronary artery without angina pectoris; E11.9 Type 2 diabetes mellitus without complications; G47.33 Obstructive sleep apnea (adult) (pediatric); I35.0 Nonrheumatic aortic (valve) stenosis; I11.0 Hypertensive heart disease with heart failure; E78.5 Hyperlipidemia, unspecified; I27.21 Secondary pulmonary arterial hypertension; R00.1 Bradycardia, unspecified; E66.01 Morbid (severe) obesity due to excess calories; Z79.84 Long term (current) use of oral hypoglycemic drugs; Z87.891 Personal history of nicotine dependence; Z91.19 Patient's noncompliance with other medical treatment and regimen
CPT/HCPCS: 36415; 71045; 80048; 81001; 82803; 82962; 84484; 85025; 85027; 85347; 85610; 85730; 92928; 92929; 93005; 93312; 93320; 93325; 93461; 99285; C1760; J7030; Q9967; A4216; C1725; C1751; C1769; C1874; C1887; C1894; C9600; C9601

== ENCOUNTER → 2019-04-12 06:10 | Outpatient (CLI) | payer MEDICARE, SELFPAY ==
[2019-02-27 14:22] VITALS: BMI 42.2
[2019-03-24 11:55] VITALS: BMI 41.2
--- NOTE | 2019-04-12 09:11 | STRESSREP ---
Stress Test Report Pharmacologic myocardial perfusion stress test. 69-year-old male with a history of coronary artery disease status post previous angioplasty and stenting of the right coronary artery. Stress protocol: Resting EKG demonstrates normal sinus rhythm with a rate of 64 bpm normal intervals are noted resting blood pressures 122/78 mmHg. 0.4 mg of regadenoson was infused per usual protocol followed by rapid intravenous saline flush injection continuous EKG monitoring was performed. The maximum heart rate attained was 74 bpm which was 49% of maximum predicted heart rate the maximum workload was 1 metabolic equivalent. At rest nonspecific ST-T wave changes were noted. Myocardial perfusion protocol. 14.8 mCi of technetium 99m sestamibi was injected at rest. 0.4 mg of regadenoson was infused per usual protocol. At peak infusion 44.5 mCi of technetium 99m sestamibi was injected stress images were obtained stress and rest images were reconstructed and compared in the short axis vertical long horizontal long axis. Gated images were also obtained per Perfusion SPECT analysis: Review of the stress images demonstrate GI attenuation artifact. There is a small defect noted in the anterior septal wall with near complete reversibility noted on the resting images. The above is suggestive of a medium zone of anterior septal ischemia. The lateral wall and inferior wall appeared to be well perfused. Gated SPECT analysis: The gated ejection fraction is noted to be 55%. Conclusion: Pharmacologic myocardial perfusion stress test with evidence of mid anteroseptal ischemia. Preserved ejection fraction.
== END ==
PROVIDERS: Family Provider Family Medicine; PCP Family Medicine; Referring Provider Internal Medicine Cardiovascular Disease; Visit Provider Internal Medicine Cardiovascular Disease
DX: R07.9 Chest pain, unspecified (principal); I25.2 Old myocardial infarction
CPT/HCPCS: 78452; 93017; A9500; A4216; J2785

== ENCOUNTER 2019-04-19 09:44 | Day surgery (SDC) | payer MEDICARE, SELFPAY ==
[2019-02-27 14:22] VITALS: BMI 42.2
[2019-03-24 11:55] VITALS: BMI 41.2
[2019-04-17 07:54] LABS: Absolute Neutrophil Count 4.1 X10^3/uL (2.0-7.7); Basophil# 0.03 X10^3/uL; Basophil% 0.5 % (0-1); Eosinophil# 0.25 X10^3/uL; Eosinophils% 3.9 % (0-5); Hemoglobin 13.5 g/dl (13.0-16.5); Lymphocyte % 20.3 % (19-41); Mean Corp Hgb Conc 32.1 g/gl (32-36); Mean Corpuscular Hgb 29.1 pg (27.0-32.0); Mean Corpuscular Volume 90.5 fL (80-94); Mean Platelet Vol. 10.6 fl (6.2-12.0); Monocyte# 0.67 X10^3/uL; Monocyte% 10.5 % (0-10); Neutrophil # 4.13 X10^3/uL (2.7-7.7); Neutrophil % 64.5 % (47-70); Platelet Count 165 K/mm3 (150-450); RBC Distribution Width CV 15.8 % (11.6-14.6); RBC Distribution Width SD 51.2 fl (35.1-43.9); Red Blood Count 4.64 M/mm3 (4.6-6.2); White Blood Count 6.4 K/mm3 (4.4-11.0)
[2019-04-17 07:55] LABS: POSITIVE COUNT NO; POSITIVE DIFFERENTIAL NO; POSITIVE MORPHOLOGY NO
[2019-04-17 08:08] LABS: International Normalized Ratio 1.1; Partial Thromboplast Time 27.4 Seconds (24.1-36.2); Prothrombin Time (Protime)PT. 13.9 SECONDS (11.7-14.9)
[2019-04-17 08:15] LABS: AST(SGOT) 16 U/L (15-37); Alanine Aminotransfer ALT/SGPT 29 U/L (16-61); Albumin, Serum 3.4 g/dL (3.2-5.0); Alkaline Phosphatase 121 U/L (45-117); Anion Gap 11 (5-15); BUN 23 mg/dL (7-18); Bilirubin, Direct 0.11 mg/dL (0.00-0.30); Calcium,Total 8.7 mg/dL (8.5-10.1); Chloride 106 mmol/L (98-107); Cholesterol 108 mg/dL (200); Creatinine, Serum 1.28 mg/dL (0.70-1.30); EST Glomerular Filtration Rate 59 mL/min (>60); Est Glom Filt Rate - Afr Amer 71 mL/min (>60); Globulin 3.8 g/dL (2.2-4.2); Glucose 99 mg/dL (74-106); High Density Lipoprotein 37 mg/dL; Potassium 4.3 mmol/L (3.5-5.1); Protein, Total 7.2 g/dL (6.4-8.2); Sodium Level 143 mmol/L (136-145); Triglycerides 171 mg/dL; Very Low Density Lipoprotein 34 mg/dL (5-40)
[2019-04-18 08:29] VITALS: BMI 41.2
[2019-04-19] VITALS (19 sets, daily range): BP systolic 129–176; BP diastolic 50–115; PULSE 60–73; RESP 10–28; TEMP 36.2; O2SAT 92–97; BMI 40.8
--- NOTE | 2019-04-19 13:08 | CL.I_ITS ---
Patient Name: RONNIE DEE Study Date: 04/19/2019 Performing: Ronnie Ball MD Ht: 68.89 inches 175 cm : 1950 Wt: 279.99 lbs 127 kg Age: 69 Gender: male BSA: 2.38 PROCEDURE(S) PERFORMED OC15-VET, CORONARY OR GRAFT, INITIAL VESSEL [id number] W OR WO PTCA, SINGLE CORONARY ARTERY [id number] W OR WO PTCA, EACH ADD'L ARTERY, SAME MAJOR [id number] W OR WO PTCA, SINGLE CORONARY ARTERY CLINICAL PROFILE AND CO-MORBIDITIES Heart Failure: NYHA Class: 1, Newly Diagnosed: Yes, Heart Failure Type: Systolic Stress/Imaging Date: 04/12/2019 Stress Test with SPECT MPI: Positive Low risk Angina Classification Anginal Classification w/in 2 Weeks: CCS II CAD Presentations: Unstable angina. Other: Dyspnea on exertion Other: Recent NSTEMI Comorbidities/Risk Factors: Hypertension Dyslipidemia Prior CHF Prior PCI CONCLUSIONS Successful PTCA/TAMIA to proximal/ostial OM#2 with a 2.25 x 20 Promus Synergy stent after FFR of OM#2 w as 0.71; 85%-->0%, no dissection. Bifurcation was ballooned prior to stent depolyment. Successful PTCA/TAMIA mid LCX with a 2.25 x 20 Promus Synergy, followed immediately upstream with a 2.2 5 x 16 Promus, post dilated proximally with a 2.5 x 8 NC baloon; 75%-->0%, no dissection and no evid ence of ostial OM disease post stenting. Successful PTCA/TAMIA proximal LAD with a 2.25 x 24 Promus Synergy, followed immediately downstream wit h a 2.25 x 12 Promus Synergy; post dilated in proximal 3/4 of the stents with a 2.5 x 8 NC Balloon; 8 5%-->0%, no dissection. No encroachment on ostium of moderate sized diag#1, so no additional PCI per formed on ostial DIAG. RECOMMENDATIONS Highly recommend quitting all tobacco products Follow up with primary shorthand teacher Risk factor modification ASA Indefinitley Plavix for at least 12 months Routine post interventional care Refer for Outpatient Cardiac Rehab Manual sheath removal per protocol Follow up with Dr. Kathia Pt will f/u in our office in 2 weeks time for groin check and skin assessment for radiation exposure. Successful Mynx closure of RFA. Regular echo eval for aortic stenosis. DESCRIPTION OF PROCEDURE The patient arrived to the procedure lab. The risks and benefits of the procedure as well as a full d escription of our services here and current unavailability of surgical backup were fully explained to the patient and/or their significant other prior to the catheterization. The Timeout was completed, verifying the correct patient and procedure. The patient's procedural site was prepped and draped in the usual fashion. Local anesthetic was given subcutaneously to right groin region with Lidocaine 2%. Using a modified Seldinger technique, arterial access was obtained via the right femoral artery, a 6 Fr sheath was inserted.. The FFR wire was inserted. The pressure wire was then positioned across the lesion in the OM 1. Adenosine was then given per protocol. Pressures and FFR were recorded. FFR Ratio Baseline: 0.9. FFR Ratio Post Adenosine: 0.71 EBU 3.75 Guide catheter was inserted and engaged into the LCA. [employer] Guide wire was advan dee to the Circumflex. Emerge 2.0 x 12 Balloon catheter was inserted. Balloon catheter was advanced a cross lesion in the first obtuse marginal, proximal. PTCA balloon inflated at 6 atms for 9 secs. Analisa ogram performed post balloon dilatation. Emerge 2.0 x 12 Balloon catheter was reinserted Balloon cath eter was advanced across lesion in the circumflex, mid. PTCA balloon inflated at 6 atms for 8 secs. P TCA balloon inflated at 6 atms for 4 secs. PTCA balloon inflated at 6 atms for 8 secs. Angiogram perf ormed post balloon dilatation. Synergy 2.25 x 20 Drug Eluting stent was inserted. Drug Eluting stent was advanced across the lesion in the circumflex, mid. Angiogram performed pre stent deployment. Analisa ogram performed post stent deployment. Synergy 2.25 x 20 Drug Eluting stent was inserted. Drug Elutin g stent was advanced across the lesion in the first obtuse marginal, proximal. Angiogram performed pre stent deployment. Synergy 2.0 x 12 Balloon catheter was inserted. Emerge 2.0 x 8 Balloo n catheter was inserted. Balloon catheter was advanced across lesion in the circumflex, mid. Angiogra m performed post balloon dilatation. Emerge 2.5 x 8 Balloon catheter was inserted. Balloon catheter w as advanced across lesion in the circumflex, mid. Angiogram performed post balloon dilatation. Synerg y 2.25 x 16 Drug Eluting stent was inserted. Drug Eluting stent was advanced across the lesion in the circumflex, mid. Angiogram performed pre stent deployment. NC Emerge 2.5 x 8 Balloon catheter was in serted. Balloon catheter was advanced across lesion in the circumflex, mid. Angiogram performed post balloon dilatation. Emerge 2.0 x 8 Balloon catheter was reinserted [employer] (New) Guide wire was advanced to the LAD. Emerge 2.0 x 8 Balloon catheter was inserted. Balloon catheter was advanced acr oss lesion in the LAD, proximal. PTCA balloon inflated at 6 atms for 6 secs. PTCA balloon inflated at 12 atms for 10 secs. Emerge 2.0 x 12 Balloon catheter was inserted. Balloon catheter was advanced across lesion in the LAD, proximal. Synergy 2.25 x 24 Drug Eluting stent was inserted. Drug Eluting stent was advanced across the lesion in the LAD, proximal. Angiogram performed post stent dep loyment. Synergy 2.25 x 12 Drug Eluting stent was inserted. Drug Eluting stent was advanced across th e lesion in the LAD, proximal. NC Emerge 2.5 x 8 Balloon catheter was reinserted Balloon catheter was advanced across lesion in the LAD, proximal. Angiogram performed post balloon dilatation. Contrast w as injected through the sheath and the Right Iliac and Femoral artery were assessed for possible clos ure device. The arterial sheath was pulled and a Mynx closure device was deployed for hemostasis INTERVENTION INFORMATION LESION SITE: 1st OM (Proximal) Lesion Complexity: High/C, lesion at bifurcation: Yes, thrombus present: No, lesion length: 20 mm, cu lprit lesion: No Pre Stenosis: 85 % Pre intervention VICTOR M flow: 3 PROCEDURE: Drug Eluting Stent with pre and post dilatation, FFR Post Stenosis: 0 % Post intervention VICTOR M flow: 3 Lesion Devices: Hines .014 [employer] Hick[employer] Straight 190cm IGT Devices ( Formerly [place]) Coronary FFR Wire [employer] Solutionstronic 6 Fr EBU3.75 100cm Guide Catheter Krish Sci EMERGE MR 2.00x12 BALLOON Krish Sci Synergy MR TAMIA 2.25x20 Krish Sci EMERGE MR 2.00x08 BALLOON Krish Sci EMERGE MR 2.50x08 BALLOON LESION SITE: Circumflex (Mid) Lesion Complexity: High/C, lesion at bifurcation: Yes, thrombus present: No, lesion length: 36 mm, cu lprit lesion: No Pre Stenosis: 75 % Pre intervention VICTOR M flow: 3 PROCEDURE: Drug Eluting Stent with pre and post dilatation Post Stenosis: 0 % Post intervention VICTOR M flow: 3 Lesion Devices: Hines .014 [employer] [place] Straight 190cm Medtronic 6 Fr EBU3.75 100cm Guide Catheter Krish Sci EMERGE MR 2.00x12 BALLOON Krish Sci Synergy MR TAMIA 2.25x20 Krish Sci EMERGE MR 2.00x08 BALLOON Krish Sci EMERGE MR 2.50x08 BALLOON Krish Sci Synergy MR TAMIA 2.25x16 Krish Sci NC EMERGE MR 2.50x08 BALLOON LESION SITE: LAD (Proximal) Lesion Complexity: High/C, lesion at bifurcation: No, thrombus present: No, lesion length: 36 mm, cul prit lesion: Yes Pre Stenosis: 85 % Pre intervention VICTOR M flow: 3 PROCEDURE: Drug Eluting Stent with pre and post dilatation 0 % Post intervention VICTOR M flow: 3 Lesion Devices: Hines .014 [employer] [place] Straight 190cm Medtronic 6 Fr EBU3.75 100cm Guide Catheter Krish Sci EMERGE MR 2.00x12 BALLOON Krish Sci EMERGE MR 2.00x08 BALLOON Krish Sci NC EMERGE MR 2.50x08 BALLOON Hines .014 [employer] Straight 190cm Krish Sci Synergy MR TAMIA 2.25x24 Krish Sci Synergy MR TAMIA 2.25x12 COMPLICATIONS No Complications PROCEDURE MEDICATIONS Oxygen: 2 L/min via nasal cannula Adenosine drip for FFR 32.8 ml IV @ 04/19/2019 11:35:32 Heparin 6000 unit(s) IV 04/19/2019 11:30:45 Nitro 200 mcg IC 04/19/2019 11:33:07 Nitro 200 mcg IC 04/19/2019 11:33:07 Nitro 200 mcg IC 04/19/2019 11:51:14 Nitro 200 mcg IC 04/19/2019 12:11:30 Nitro 200 mcg IC 04/19/2019 12:21:21 IV Bolus: .9 NaCl 800 ml total 04/19/2019 11:37:57 IV Fluids: .9 NaCl decreased to 150 ml/hr 04/19/2019 12:49:03 SUMMARY OF HEMODYNAMIC DATA Time AIR REST ECG 10:08:47 AO 103/45 (68) SA 11:33:25 AO 104/56 (74) 11:36:18 Signed By Ronnie Ball MD On 04/19/2019 13:07:22 Ronnie Ball MD
[2019-04-19] MEDS: 0.9% Normal Saline 1,000 ML 150 ML IV (13:30)
--- NOTE | 2019-04-19 13:43 | EKG12_ITS ---
Test Reason : AM Blood Pressure : / mmHG Vent. Rate : 059 BPM Atrial Rate : 059 BPM P-R Int : 186 ms QRS Dur : 092 ms QT Int : 424 ms P-R-T Axes : 063 023 037 degrees QTc Int : 419 ms Sinus bradycardia Otherwise normal ECG When compared with ECG of 19-APR-2019 13:20, MANUAL COMPARISON REQUIRED, DATA IS UNCONFIRMED Confirmed by VANDANA MOYER, PAT ([id number]), production editor FLAQUITA MACKENZIE ([id number]) on 04/25/2019 7:02:12 AM Referred By: Ronnie Ball Confirmed By:CHIN ROSS MD
[2019-04-19 14:16] LABS: ACT Activated Clotting Time 175 sec (74-137)
--- NOTE | 2019-04-19 14:23 | CRPHASE1_ITS ---
Patient Communication Former Patient:: Phase I - Patient previously referred to CR, and has had multiple interventions from initial referral. PHII Cardiac Rehab Discussed with Patient:: Yes Guide to Cardiac Rehab Given to Patient:: Yes Cardiac Rehab Facility Choice List Given to Patient:: Yes Choice Program [facility] PHII:: Communication Given to CR, Refer to [facility] Wrapper Layer:: Ronnie Ball Refer Phase II Cardiac Rehab:: Yes Sessions:: 36 sessions - 3 days/wk, 12 weeks Risk Factors/Lifestyle Family History: Family History (Last Reviewed 03/24/19 @ 12:41 by Sabas Bae MD) Mother Diabetes Hypertension Father Diabetes Hypertension Sister Hypertension Brother Diabetes Hypertension Cancer, Onset Age: 50 CAD (coronary artery disease) Laboratory Values: Cardiac Rehab Phase I Labs Triglycerides 171 mg/dL (-199) 04/17/19 06:26 Cholesterol 108 mg/dL (200) 04/17/19 06:26 37 mg/dL (0-130) 04/17/19 06:26 37 mg/dL (40-) L 04/17/19 06:26 Cardiac Rehabilitation Info Cardiac Rehabilitation Program Information: Cardiac Rehabilitation is important for patients like you who are recovering from a heart problem. Cardiac rehabilitation programs are recognized as integral to the continued care of the patient with coronary heart disease. The cardiac rehabilitation program is designed to optimize a patient's physical, psychological, and social functioning. Health youth care specialist work in cardiac rehabilitation programs and assist you with getting the tr eatments you need to get stronger and healthier - like exercise, healthy eating habits, and medications. Cardiac rehabilitation has been show to help people with heart problems live longer and have better life enjoyment than people who do not go to cardiac rehabilitation. Please contact the Cardiac Rehabilitation Program at [facility] at in two weeks if you have not heard from them.
[2019-04-19] MEDS: glipiZIDE 5 MG Tablet PO (15:52)
[2019-04-19 16:01] LABS: Bedside Glucose 87 mg/dL (70-110)
[2019-04-19] MEDS: Carvedilol 3.125 MG TABLET PO (21:19)
[2019-04-19] MEDS: Atorvastatin Calcium 80 MG Tablet PO (21:19)
[2019-04-19 21:26] LABS: Bedside Glucose 135 mg/dL (70-110)
[2019-04-20] VITALS (13 sets, daily range): BP systolic 119–183; BP diastolic 53–82; PULSE 53–67; RESP 16–26; TEMP 36.2–36.6; O2SAT 93–97
[2019-04-20 04:35] LABS: Hematocrit 38.8 % (40-54); Hemoglobin 12.2 g/dl (13.0-16.5); Mean Corp Hgb Conc 31.4 g/gl (32-36); Mean Corpuscular Hgb 28.6 pg (27.0-32.0); Mean Corpuscular Volume 90.9 fL (80-94); Mean Platelet Vol. 10.9 fl (6.2-12.0); Platelet Count 184 K/mm3 (150-450); RBC Distribution Width CV 15.9 % (11.6-14.6); RBC Distribution Width SD 52.4 fl (35.1-43.9); Red Blood Count 4.27 M/mm3 (4.6-6.2); Scan Indicated on CBC? Y/N NO; White Blood Count 6.5 K/mm3 (4.4-11.0)
[2019-04-20 04:59] LABS: Anion Gap 7 (5-15); BUN 20 mg/dL (7-18); BUN/Creat Ratio 17.1 RATIO (10-20); Calcium,Total 8.2 mg/dL (8.5-10.1); Chloride 109 mmol/L (98-107); Creatinine, Serum 1.17 mg/dL (0.70-1.30); EST Glomerular Filtration Rate 66 mL/min (>60); Est Glom Filt Rate - Afr Amer 79 mL/min (>60); Estimated Creatinine Clearance 60.66 ml/min; Glucose 83 mg/dL (74-106); Potassium 4.6 mmol/L (3.5-5.1); Sodium Level 140 mmol/L (136-145)
[2019-04-20] MEDS: Carvedilol 3.125 MG TABLET PO (08:17)
[2019-04-20] MEDS: glipiZIDE 5 MG Tablet PO (08:18)
[2019-04-20] MEDS: Lisinopril 10 MG Tablet PO (08:18)
[2019-04-20] MEDS: Clopidogrel Bisulfate 75 MG Tablet PO (08:18)
[2019-04-20] MEDS: Allopurinol 300 MG Tablet PO (08:18)
[2019-04-20] MEDS: Furosemide 40 MG Tablet PO (08:18)
[2019-04-20] MEDS: Isosorbide Mononitrate 30 MG Tablet PO (08:18)
[2019-04-20] MEDS: Aspirin E.C. 81 MG Tablet PO (08:18)
[2019-04-20 08:25] LABS: Bedside Glucose 97 mg/dL (70-110)
--- NOTE | 2019-04-20 09:46 | PCM.PN.CARD ---
Subjectve: Patient doing very well this morning, no 24-hour events. Telemetry showed normal sinus rhythm with rare PVCs. Hemoglobin and creatinine are within nominal limits. Right groin is clean/dry/intact without evidence of thrills, bruits or hematoma. Patient reports that he feels much better. No sunburn or discoloration on his back or his chest. Objective: Vital Signs Temp Pulse Resp BP Pulse Ox 97.5 F L 66 17 166/66 H 94 04/20/19 04:00 04/20/19 09:00 04/20/19 09:00 04/20/19 09:00 04/20/19 09:00 Oxygen Delivery Method Room Air Weight: 285 lb 4.45 oz Body Mass Index (BMI) 40.8 Intake and Output for Last 24 Hours 04/18/19 04/19/19 04/20/19 23:59 23:59 23:59 Intake Total 2090 / 2090 400 / 400 Output Total 975 / 975 250 / 250 Balance 1115 / 1115 150 / 150 General: Awake, Alert, Oriented x 3 HEENT: PERRL, EOMI, Sclera Non Icteric Neck: Supple, Good ROM, No Lymph Node Enlargement Lungs: Clear to auscultation Cardiovascular: Regular Rhythm, Normal S1, Normal S2, No Murmurs, No Rubs, No Gallops Vascular: No Carotid Bruits, Normal Femoral Pulses, Normal Radial Pulses, Normal Dorsalis Pedal Pulse, Normal Posterior Tibial Pulses Abdomen: Bowel Sounds Present, Soft, Non Tender, No HSM, No Organomegaly Extremities: No Cyanosis, No Clubbing, No edema Neurological: No Focal Motor or Sensory Deficit 04/20/19 04:15: WBC 6.5, RBC 4.27 L, Hgb 12.2 L, Hct 38.8 L, MCV 90.9, MCH 28.6, MCHC 31.4 L, RDW 15.9 H, RDW Differential 52.4 H, Plt Count 184, MPV 10.9 04/20/19 04:15: Sodium 140, Potassium 4.6, Chloride 109 H, Carbon Dioxide 24.0, Anion Gap 7, BUN 20 H, Creatinine 1.17, Est GFR (MDRD) Af Amer 79, Est GFR (MDRD) Non-Af 66, BUN/Creatinine Ratio 17.1, Glucose 83, Calcium 8.2 L Rhythm: EKG: ECHO: Stress Test: Cardiac Cath: PCI: CT Surgery: Holter monitor: EPS: PPM: CXR: Chest CT Scan: Medical Necessity - Tobacco Use Smoking Status: Former smoker Assessment/Plan 1. Coronary artery disease: Patient underwent multivessel angioplasty and stenting to his obtuse marginal, left circumflex, and LAD yesterday. This was electively done after angioplasty and stenting of his right coronary artery several weeks ago. In addition the patient has aortic stenosis which does not appear to require corrective measures at this time. Would recommend lifelong baby aspirin and lifelong Plavix given the multitude of stents in order to preserve his remaining nondistended coronary arteries as well. Would recommend serial stress test and serial echocardiograms to monitor his aortic valve which will be taken care of by his primary electrical prospecting engineer Dr. Bae. In the meantime we will continue his Coreg, Lasix and Imdur. 2. Hyperlipidemia: Continue Lipitor therapy. 3. Patient may be discharged home and follow-up with Dr. Bae going forward. We will need to check him in 2 weeks time for his groin check, blood pressure, and to evaluate his back to make sure he has no radiation affected discoloration or injury. Code Visit Inpatient E&M: 60777 Subs Hosp L2
--- NOTE | 2019-04-20 10:00 | EKG12_ITS ---
Test Reason : POST PCI Blood Pressure : / mmHG Vent. Rate : 062 BPM Atrial Rate : 062 BPM P-R Int : 182 ms QRS Dur : 092 ms QT Int : 426 ms P-R-T Axes : 060 016 035 degrees QTc Int : 432 ms Normal sinus rhythm Normal ECG When compared with ECG of 28-FEB-2019 05:37, No significant change was found Confirmed by VANDANA MOYER, PAT ([id number]), newspaper photo editor FLAQUITA MACKENZIE ([id number]) on 04/25/2019 7:02:33 AM Referred By: Ronnie Ball Confirmed By:CHIN ROSS MD
--- NOTE | 2019-04-20 11:09 | PCM.DC.CCA ---
Discharge Diet: Low fat/ Low Cholesterol Discharge Activity: Return to Normal Activity May shower in (days): 1 - No tub baths for 5 days May resume sexual activity in: 1-2 weeks Lifting Restrictions: Do not lift anything greater than 10 pounds for 3 days. Call your doctor if your incision/area has: Continuous Slow Oozing, Sudden Increased Bleeding, Increased Pain/ Swelling, Increased Redness, Foul Smelling Discharge, Swelling at the incision site Call your doctor if you observe: Fever of 101 or Higher, Shortness of breath, Chest pain Remove Dressing in (days):: 1 Cleanse incision/area with: Soap & Water Additional Instructions: You will remain on Aspirin and Plavix therapy. If anyone asks you to stop your Plavix, please call the [facility] Office at [phone]. You are scheduled for a groin and rash check on 05/01/2019 at 10:00 with the nurse. You are scheduled to see Dr. Bae in the office on 05/23/2019 at 2:30. Allergies/Adverse Reactions: Allergies metformin Adverse Reaction (Verified 04/18/19 08:33) Elevated LDH and anion gap Medications to take at Discharge Allopurinol [Zyloprim] 300 mg PO DAILY 04/10/16 aspirin 81 mg tablet,delayed release 81 mg PO QDAY 04/14/18 glipizide 5 mg tablet 5 mg PO BID 01/25/19 multivitamin tablet 1 tab PO DAILY 01/25/19 nitroglycerin 0.4 mg sublingual tablet 0.4 mg SUBLINGUAL Q5-15M PRN 01/25/19 carvedilol 3.125 mg tablet 3.125 mg PO BID #180 tab 03/24/19 isosorbide mononitrate ER 30 mg tablet,extended release 24 hr 30 mg PO DAILY #90 tab 03/24/19 lisinopril 10 mg tablet 10 mg PO DAILY #90 tab 03/24/19 atorvastatin 80 mg tablet 80 mg PO QHS #90 tab 03/31/19 clopidogrel 75 mg tablet 75 mg PO DAILY #90 tab 03/31/19 furosemide 40 mg tablet 40 mg PO DAILY #90 tab 03/31/19 Primary Care Physician: Boston Figueroa MD [Primary Care Provider] - Test Results: Test results from this visit will be discussed in further detail at your follow-up appointment, if applicable. Please Follow Up With: JOSSY Nurse When: 05/01/2019 at 10:00 AM Please Follow Up With: Dr. aBe When: 05/23/2019 at 2:30 Proposed Discharge Date: 04/20/19 Cardiac Rehabilitation Info Cardiac Rehabilitation Program Information: Cardiac Rehabilitation is important for patients like you who are recovering from a heart problem. Cardiac rehabilitation programs are recognized as integral to the continued care of the patient with coronary heart disease. The cardiac rehabilitation program is designed to optimize a patient's physical, psychological, and social functioning. Health rehab care assistant work in cardiac rehabilitation programs and assist you with getting the treatments you need to get stronger and healthier - like exercise, healthy eating habits, and medications. Cardiac rehabilitation has been show to help people with heart problems live longer and have better life enjoyment than people who do not go to cardiac rehabilitation. Please contact the Cardiac Rehabilitation Program at [facility] at in two weeks if you have not heard from them.
== END 2019-04-20 11:45 | disposition home or self-care (01) ==
LOC: CLSP 09:45 → ICU 13:39
PROVIDERS: Internal Medicine Cardiovascular Disease; Family Provider Family Medicine; PCP Family Medicine; Referring Provider Internal Medicine Cardiovascular Disease; Visit Provider Internal Medicine Cardiovascular Disease
DX: I25.110 Atherosclerotic heart disease of native coronary artery with unstable angina pectoris (principal); I11.0 Hypertensive heart disease with heart failure; I50.43 Acute on chronic combined systolic (congestive) and diastolic (congestive) heart failure; I27.21 Secondary pulmonary arterial hypertension; I25.5 Ischemic cardiomyopathy; I35.0 Nonrheumatic aortic (valve) stenosis; E11.9 Type 2 diabetes mellitus without complications; E78.5 Hyperlipidemia, unspecified; G47.33 Obstructive sleep apnea (adult) (pediatric); E66.01 Morbid (severe) obesity due to excess calories; I25.2 Old myocardial infarction; Z79.02 Long term (current) use of antithrombotics/antiplatelets; Z79.82 Long term (current) use of aspirin; Z79.899 Other long term (current) drug therapy; Z87.891 Personal history of nicotine dependence; Z95.5 Presence of coronary angioplasty implant and graft
CPT/HCPCS: 36415; 80048; 80061; 80076; 82962; 85025; 85027; 85347; 85610; 85730; 92928; 92929; 93005; 93571; C1760; J0153; J7030; J7040; C1725; C1769; C1874; C1887; C9600; C9601; Q9967

== ENCOUNTER → 2019-04-25 08:56 | Outpatient (CLI) | payer MEDICARE, SELFPAY ==
[2019-02-27 14:22] VITALS: BMI 42.2
[2019-03-24 11:55] VITALS: BMI 41.2
[2019-04-19 13:52] VITALS: BMI 40.8
--- NOTE | 2019-04-25 09:55 | CR.HP_ITS ---
CR - History & Physical - General Arrival date:: 04/25/19 Arrival time:: 09:00 Date of Referral:: 04/19/19 Date of CR Evaluation:: 04/25/19 Referring Physician: Dr. Bae Primary Diagnosis: PCI w/stenting - History of Present Cardiac Event Onset Date: Enter Onset Date of cardiac illnesses in Comment field below PTCA or coronary stenting:: Yes - 03/2019, 04/19/2019 Type of Symptoms:: in [place] on vacation went to bed couldn't breath, went to ER. Had a heart cath done found occulsion. Originally they planned on a aortic valve replacement and bypass graft. Came back to [place] Dr. Bae planned heart cath and stents for now. Interventions with present event:: heart cath two procedures planned for stent placement. Were there any complications?: None - Medications Home Medications: Ambulatory Orders Medication Instructions Recorded Allopurinol [Zyloprim] 300 mg PO DAILY 04/10/16 aspirin 81 mg tablet,delayed 81 mg PO QDAY 04/14/18 release glipizide 5 mg tablet 5 mg PO BID 01/25/19 multivitamin tablet 1 tab PO DAILY 01/25/19 nitroglycerin 0.4 mg sublingual 0.4 mg SUBLINGUAL Q5-15M PRN 01/25/19 tablet carvedilol 3.125 mg tablet 3.125 mg PO BID #180 tab 03/24/19 isosorbide mononitrate ER 30 mg 30 mg PO DAILY #90 tab 03/24/19 tablet,extended release 24 hr lisinopril 10 mg tablet 10 mg PO DAILY #90 tab 03/24/19 atorvastatin 80 mg tablet 80 mg PO QHS #90 tab 03/31/19 clopidogrel 75 mg tablet 75 mg PO DAILY #90 tab 03/31/19 furosemide 40 mg tablet 40 mg PO DAILY #90 tab 03/31/19 - Allergies Allergies/Adverse Reactions: Allergies metformin Adverse Reaction (Verified 04/18/19 08:33) Elevated LDH and anion gap - Sleep Disorder Evaluation Hx of Sleep Apnea: Yes Do you snore loudly (louder than talking or can be heard through closed doors)?: Yes Do you often feel tired/ fatigued/ sleepy during daytime?: No Has anyone observed you stop breathing during sleep?: No History of Hypertension (for STOP score): Yes STOP Results: Positive Advanced Directives - Advanced Directives Power of Packaging Operator: Yes Living Will: Yes Advance Directives Information Provided: No Advance Directives on File: Yes DNR Order?:: No - MOLST See MOLST form: No Past Medical History - Past Medical Illness Medical History: Past Medical History (Last Updated 04/20/19 @ 16:52 by Yelena Graff) Ischemic cardiomyopathy (Chronic) I25.5 NSTEMI (non-ST elevated myocardial infarction) (Acute) Onset Date: 02/25/19 I21.4 Non-rheumatic aortic stenosis (Chronic) I35.0 Atherosclerosis of coronary artery without angina pectoris (Chronic) I25.10 [id number] RPLB w/ 2.25 x 12 mm Promus Synergy Stent, TAMIA-Distal RCA w/ 2.5 x 16 mm Promus Synergy Stent, and TAMIA-Mid RCA w/ 2.5 x 32 mm Promus Synergy Stent 02/27/19; [id number] RPLB w/ 2.25 x 12 mm Promus Synergy Stent, TAMIA- Distal RCA w/ 2.5 x 16 mm Promus Synergy Stent, and TAMIA-Mid RCA w/ 2.5 x 32 mm Promus Synergy Stent 02/27/19; PTCA/TAMIA to proximal/ostial OM#2 with a 2.25 x 20 Promus Synergy stent, PTCA/TAMIA mid LCX with a 2.25 x 20 Promus Synergy, followed immediately upstream with a 2.25 x 16 Promus, PTCA/TAMIA proximal LAD with a 2.25 x 24 Promus Synergy, followed immediately downstream with a 2.25 x 12 Promus Synergy on 04/19/2019; 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) I50.43 Hyperlipidemia (Chronic) E78.5 Essential (primary) hypertension (Chronic) I10 Secondary pulmonary arterial hypertension (Chronic) I27.21 Bilateral lower extremity edema R60.0 Dermatitis L30.9 Elevated liver enzymes R74.8 Fatty liver K76.0 Gout M10.9 Morbid obesity E66.01 Morbid obesity with BMI of 40.0-44.9, adult E66.01, Z68.41 Obstructive sleep apnea G47.33 Osteoarthritis M19.90 Type 2 diabetes mellitus E11.9 Diastolic dysfunction (Inactive) I51.9 - Past Surgical History Surgical History: Past Surgical History (Last Updated 04/20/19 @ 16:52 by Yelena Graff) History of coronary artery stent placement (Resolved) Onset Date: 02/27/19 Z95.5 [id number] RPLB w/ 2.25 x 12 mm Promus Synergy Stent, TAMIA-Distal RCA w/ 2.5 x 16 mm Promus Synergy Stent, and TAMIA-Mid RCA w/ 2.5 x 32 mm Promus Synergy Stent 02/27/19; [id number] RPLB w/ 2.25 x 12 mm Promus Synergy Stent, TAMIA- Distal RCA w/ 2.5 x 16 mm Promus Synergy Stent, and TAMIA-Mid RCA w/ 2.5 x 32 mm Promus Synergy Stent 02/27/19; PTCA/TAMIA to proximal/ostial OM#2 with a 2.25 x 20 Promus Synergy stent, PTCA/TAMIA mid LCX with a 2.25 x 20 Promus Synergy, followed immediately upstream with a 2.25 x 16 Promus, PTCA/TAMIA proximal LAD with a 2.25 x 24 Promus Synergy, followed immediately downstream with a 2.25 x 12 Promus Synergy on 04/19/2019; History of appendectomy Z90.49 History of herniorrhaphy Z98.890, Z87.19 History of left heart catheterization Onset Date: 12/29/18 Z98.890 LAD-90% stenosis, LCx 60% stenosis, RCA 90% stenosis, EF 40%, mod 12/29/18 History of tonsillectomy Z90.89 History of total knee replacement (TKR) Z96.659 Surgical History: - - T+A, Appendectomy, Inguinal Hernia repair, R TKR, L Knee Surgery - Family History Summary Family History: Family History (Last Reviewed 03/24/19 @ 12:41 by Sabas Bae MD) Mother , Age 80 Diabetes Hypertension Father , Age 55, coma Diabetes Hypertension Sister Hypertension Brother Diabetes Hypertension Cancer, Onset Age: 50 prostate cancer CAD (coronary artery disease) Social History - Smoking History Smoking Status: Former smoker Packs Smoked per Day: 1 Hx Smoking Cessation Date: 2008 Hx Tobacco Use: Yes Hx Smoking Exposure: No - Alcohol Use Alcohol Usage: Yes - occasional beer now and then; very sparingly. - Substance Abuse Hx Substance Use: No - Occupation Occupation (List type of work in comments):: Retired Hours worked per day:: 4 - [address] [place] - Hobbies, Recreation, Social Activities Hobbies: Other - painting, models Recreational Activities: I am able to engage in most, but not all activities Social Environment - Status Marital Status: - Current Living Arrangements Living Environment:: Alone - Children How many children do you have?: 2 Do any of your children live nearby?: Yes - Abelino Porter - Safety Do you feel safe in your surroundings?: Yes - Assistance Do you need any assistance at home?: none Review of Systems - Review of Systems Hints: Right click = Denies ([place]ash). Left click = Reports ([place]) Review of Present Symptoms: Reports: Shortness of Breath with Exertion - greatly minimized since the last stent., Dizziness/Lightheadedness - occasional positional hypotension., Fatigue, Appetite - Normal - two meals daily., Appetite - Special Diet - low fat, low carb, no added salt diet., Sleep - Normal. Denies: Sexual Changes - Pain Is Patient Pain Free?: Yes Pain Location: lower extremity, other - left knee very bad and needs replaced but has been unable to sustain the surgical procedure to date with the heart problems. Risk Factor Assessment - Vital Signs Temperature: 98.7 F Respiratory Rate: 14 Pulse Ox: 93 Blood Pressure: 103/62 - Pulse Pulse Rate: 72 Pulse Rhythm: Regular - Hypertension Blood Pressure Sitting - Left Arm: 103/62 - Diabetes Diabetic History: Type II, Medication Dependent Nutrition Referral for Diabetes: Yes - Obesity Height: 5 ft 9 in Weight:: 279 lb Weight in Pounds: 279.0 lbs Weight Source: Standing Scale Body Mass Index (BMI): 41.2 Nutritional Referral for Obesity: Yes - Physical Inactivity Physical Inactivity: Recreational activity - trying to walk 15-30 minutes daily. - Risk Stratification Risk Guidelines: Lowest Risk: Risk Factor for Smoking, Risk Factor for Dyslipidemia, Risk Factor for Diabetes, Risk Factor for Hypertension, Risk Factor for Depression, Highest Risk: Risk Factor for Obesity, Risk Factor for Sedentary Lifestyle - For Smoking Smoking Risk Guidelines: Smoking Low Risk: None or quit greater than 6 months ago. Smoking Moderate Risk: Smoker or quit 6 months or less ago. Smoking High Risk: Smoker - For Dyslipidemia Dyslipidemia Risk Guidelines: Low Risk: Moderate Risk: High Risk: 15-25% fat 25.1-29% fat >/= 30% fat. <7% sat fat 7-9% sat fat >9% sat fat. <150 mg chol 150-299 mg chol >/= 300 mg chol. LDL <100 LDL 100-129 LDL >/= 130. Chol/HDL ratio <5.0 Chol/HDL ratio 5.0-6.0 Chol/HDL ratio >6.0. Triglycerides <100 Triglycerides 100- 149 Triglycerides >/= 150 - For Diabetes Mellitus Diabetes Risk Guidelines: Diabetes Low Risk: HgA1c <6.5% and/or FBG <120. Diabetes Moderate Risk: HgA1c 6.6-7.9% and/or FBG 120-180. Diabetes High Risk: HgA1c >/= 8% and/or FBG >180 - For Obesity/Overweight Obesity/Overweight Risk Guidelines: Obesity Low Risk: BMI <25.0. Obesity Moderate Risk: BMI 25-29.9. Obesity High Risk: BMI >/= 30.0 - For Hypertension Hypertension Risk Guidelines: Hypertension Low Risk: Systolic <120 and Diastolic <80. Hypertension Moderate Risk: Systolic 120-139 and Diastolic 80-89. Hypertension High Risk: Systolic >/= 140 and Diastolic >/= 90 - For Sedentary Lifestyle Sedentary Lifestyle Risk Guidelines: Sedentary Lifestyle Low Risk: >/= 1,500 kcal/week. Sedentary Lifestyle Moderate Risk: 700-1,499 kcal/week. Sedentary Lifestyle High Risk: < 700 kcal/week - For Depression Depression Risk Guidelines: Depression Low Risk: Not clinically depressed. Depression Moderate Risk: Mildly depressed. Depression High Risk: Clinically depressed - Family History Family History: Family History (Last Reviewed 03/24/19 @ 12:41 by Sabas Bae MD) Mother Diabetes Hypertension Father Diabetes Hypertension Sister Hypertension Brother Diabetes Hypertension Cancer, Onset Age: 50 CAD (coronary artery disease) Motivation - Motivation to Participate On a scale of 1 to 10, how prepared are you to commit to attending program?: 8 What do you see as barriers to successfully being able to complete the program?: left knee and ability to exercise on some equipment What do you see as the benefits of succesfully completing the program? In other words, what do you hope to get out of participating in the program?: get me in better shape and routine of regular exercise I can continue Are there issues you are dealing with that will interfere with completing the program?: Left knee and weight. Do you have a spouse or signficant other, family or friends who will help support you to complete the program?: yes.
[2019-04-25 10:10] VITALS: BP 103/62; PULSE 72; RESP 14; TEMP 37.1; O2SAT 93; BMI 41.2
--- NOTE | 2019-04-25 11:24 | PCM.CR.ITP ---
General Information - General Information Admitting Diagnosis: PCI W/CORONARY STENTING Special Needs: BAD LEFT KNEE - Education/Goals Barriers to Learning: None Individual Counseling: Initial Assessment: Abnormal Cholesterol Levels, High Blood Pressure, Overweight/Obesity, Diabetes, B. Waist Circumference >35/Females >40/Males, Hypertension, Low HDL <40/Males or <50/Females, Sedentary Lifestyle, Stress, Family History of Heart Disease (under 65 years) Cardiac Rehabilitation Goals: 1. Maintain the individual as the primary focus of care. 2. To improve the patient's quality of life. 3. Identification of cardiac risk factors and provide cardiac risk factor management. 4. Enhance the psychosocial status of the patient. 5. Reconditioning enough to allow the patient to resume customary activities. 6. Control symptoms of cardiac disease Scale for measuring improvement of personal goals: Enter appropriate number in Comments. 2 = Unchanged. 3 = Slightly Better. 4 = Moderate Improvement. 5 = Met my Goal Personal Goals: Initial Assessment: Improve management of stress and emotions, Improve energy level, Get back to work, or to resume activities faster, Improve knowledge of cardiac disease, Improve muscle strength and endurance, Improve diet and eating habits (eat healthier), Control risk factors (learn risk factor modification) Exercise - Initial Assessment - Visit Date of Eval: 04/25/19 - Stages of Change Stages of Change:: Action - Physician Prescribed Exercise Modalities: Rower, Airdyne, NuStep, SciFit Frequency (days/week): 3x/week for 12 weeks [36 sessions] Duration (Minutes):: 30-45 Intensity: 60-80% age predicted maximum heart rate reserve METs - Progression: 0.5-1.0 MET, RPE 11-14 WEEK: 2.5 Target Heart Rate:: 98-127 - Hypertension Do any of the following apply?: Yes, Medication, Diet Resting Blood Pressure:: 103/62 - Intervention Home Exercise/Activity Goal:: Sitting Time <3 hrs/day - Education Goals:: Warm-up, RPE INGA Scale, S/S, Safe Exercise, Self-Monitoring - Exercise Program Goals Exercise Program Goals: Aerobic Activity >30 min Nutrition - Initial Assessment - Program Goals Nutrition Program Goals: LDL <70. Total Cholesterol <200. HDL >45. Triglycerides <150. HgbA1C <7%. BMI <25 - Visit Date of Assessment:: 04/25/19 - Stages of Change Stages of Change:: Action - Diabetes Diabetes:: Yes Insulin: No Non-Insulin Dependent?: Yes Do you monitor your blood sugar at home?: Yes - Weight Management Height: 5 ft 9 in Weight:: 279 lb Body Fat %:: 41.2 - Intervention Referral to dietitian:: Yes Referral to Diabetic Clinic:: Yes Will attend diet classes:: Yes - Education Gave educational materials for:: Signs & symptoms of hypoglycemia, Signs & symptoms of hyperglycemia, Relate diabetes to coronary artery disease, Healthy eating Tobacco - Initial Assessment - Program Goals Tobacco Program Goals: Complete smoking cessation. Attend education classes. Improve Knowledge Test score - Stage of Change Stages of Change:: Action - Learning Barriers Learning Barriers: Ready to Learn - Family Support Do you have family support?: Yes - Tobacco Use Tobacco Use: Non-smoker How long ago did you quit using tobacco products?: Greater than or equal to 6 months ago Do you use smokeless tobacco?: No - Intervention Smoking Cessation Referral:: No Individual Education/Counseling:: No Education Schedule Given:: Yes - Education Gave educational material for:: Coronary artery disease, Risk factors, Sexuality, Medical compliance, Cardiac A&P, Angina signs & symptoms Psychosocial - Initial Assess - Target Goals Target Goals: Assess presence or absence of depression. Using a valid screening tool, maximizes coping skills. Positive support system - Stages of Change Stages of Change:: Action - Psychosocial Test Tool Used:: HANDS Depression Questionnaire - Intervention PS - Interventions: Yes Attend Stress Management Classes, No Referral to Mental Health, No Referral to [facility] Case Management, No Referral to Physician, No Uses Stress Management Skills - Education Gave educational materials for:: Coping techniques, Signs & symptoms of depression, Stress management, Relaxation techniques - Patient/Program Goal Preventative Medication(s):: Aspirin, Clopidogrel, Beta trav, Statin/lipid - Assistive Devices Assistive Devices:: None Fall Risk Assessed:: Yes Patient Health Questionnaire Initial Assessment 1. Little interest or pleasure in doing things: Several days 2. Feeling down, depressed, or hopeless: Not at all 3. Trouble falling or staying asleep, or sleeping too much: Several days 4. Feeling tired or having little energy: Several days 5. Poor appetite or overeating: More than half the days 6. Feeling bad about yourself -- or that you are a failure or have let yourself or your family down: Several days 7. Trouble concentrating on things, such as reading the newspaper or watching television: Several days 8. Moving or speaking so slowly that other people could have noticed. Or the opposite - being so fidgety or restless that you have been moving around a lot more than usual: Not at all 9. Thoughts that you would be better off , or of hurting yourself in some way: Not at all How difficult have these problems made it for you to do your work, take care of things at home, or get along with other people?: Somewhat difficult Total Score: 7 STEFFEN-Q SV Test - Statements CAD is a disease of the arteries in the heart: False Examples of risk factors for heart disease: True Angina is chest pain or discomfort: True The benefits of resistance training include: True Eating more meat and dairy products: False Anti-platelet medications such as aspirin are important: True The only effective way to manage stress: False An exercise warm-up slowly increases heart rate: False Prepared, processed foods usually have high sodium: True Depression is common after a heart attack: True The statin medications lower cholesterol: True To control blood pressure, lower the amount of sodium: I Don't Know If someone gets chest discomfort during walking: False Transfats are partially hydrogenated vegetable oils: True Sleep apnea that is not treated increases the risk: False To control cholesterol, one should become a vegetarian: I Don't Know Someone knows if he/she is exercising at the right level: True Diabetes cannot be prevented with exercise & health eating: False Stress is a large risk for heart attack: True A diet that can help lower blood pressure is rich in: True - Total Score Total Correct Responses: 17 Self-Efficacy Initial Assessment We would like to know how confident you are in doing certain activities. Please select your confidence level for:: Select your confidence level for the following using the scale 1-10 where 1 is not at all confident and 10 is totally confident. Your score is the average of all 6 responses. Fatigue: How confident are you that you can keep the fatigue caused by your disease from interfering with the things you want to do? Select Number: 4 Physical Discomfort or Pain: How confident are you that you can keep the physical discomfort or pain of your disease from interfering with the things you want to do? Select Number: 6 Emotional Distress: How confident are you that you can keep the emotional distress caused by your disease from interfering with the things you want to do? Select Number: 6 Other Symptoms or Health Problems: How confident are you that you can keep other symptoms or health problems from interfering with the things you want to do? Select Number: 5 Different Tasks and Activities: How confident are you that you can do the different tasks and activities needed to manage your health condition so as to reduce your need to see a doctor? Select Number: 5 Medication: How confident are you that you can do things other than just taking medication to reduce how much your illness affects your everyday life? Select Number: 6 Total Score:: 5 Nutrition Survey - Nutrition Survey Instructions Scoring Instructions: Scoring is as follows: Yes = 1 points. No = 0 point. Patient score that is >/=12 is considered to be at potential nutritional risk and could benefit from a referral to a registered dietitian. - Nutrition Survey Initial Have you lost >10 lbs over the past 2 months without trying?: No Are you following a special diet at home for diabetes, low fat, or low salt?: Yes Are you interested in meeting with a dietitian for help understanding your diet?: Yes Do you eat less than 3 meals a day?: Yes Do you eat fatty meats (yarbrough, sausage, ribs, etc), fried foods, desserts, large amounts of salad dressings, margarine, butter, or cheese most days?: Yes Do you have food allergies? [Enter types in comment field]: No Do you eat in restaurants more than 3 times a week?: No Do you season food with salt, seasoning salt, or garlic salt?: No Do you used canned, boxed, frozen meals, or soups, seasoning packets?: Yes Total Score:: 5
[2019-04-25 11:30] VITALS: BP 103/62
== END ==
PROVIDERS: Family Provider Family Medicine; PCP Family Medicine; Referring Provider Internal Medicine Cardiovascular Disease; Visit Provider Internal Medicine Cardiovascular Disease
DX: I27.21 Secondary pulmonary arterial hypertension (principal); I50.43 Acute on chronic combined systolic (congestive) and diastolic (congestive) heart failure; E11.9 Type 2 diabetes mellitus without complications; E78.5 Hyperlipidemia, unspecified; E66.01 Morbid (severe) obesity due to excess calories

== ENCOUNTER 2019-05-31 09:15 | Outpatient (RCR) | payer MEDICARE, SELFPAY ==
[2019-02-27 14:22] VITALS: BMI 42.2
[2019-04-25 10:10] VITALS: BMI 41.2
== END 2019-05-31 23:59 ==
LOC: CR 09:15
PROVIDERS: Family Provider Family Medicine; PCP Family Medicine; Referring Provider Internal Medicine Cardiovascular Disease; Visit Provider Internal Medicine Cardiovascular Disease
DX: I25.5 Ischemic cardiomyopathy (principal); Z95.5 Presence of coronary angioplasty implant and graft; I21.4 Non-ST elevation (NSTEMI) myocardial infarction; I35.0 Nonrheumatic aortic (valve) stenosis; I25.10 Atherosclerotic heart disease of native coronary artery without angina pectoris; I11.0 Hypertensive heart disease with heart failure; I50.43 Acute on chronic combined systolic (congestive) and diastolic (congestive) heart failure; E78.5 Hyperlipidemia, unspecified; I27.21 Secondary pulmonary arterial hypertension
CPT/HCPCS: 93798

== ENCOUNTER 2019-06-30 09:15 | Outpatient (RCR) | payer MEDICARE, SELFPAY ==
[2019-02-27 14:22] VITALS: BMI 42.2
[2019-05-23 14:38] VITALS: BMI 41.2
--- NOTE | 2019-06-23 13:28 | CR.ITP_ITS ---
General Information - General Information Admitting Diagnosis: PCI with Stent - Education/Goals Cardiac Rehabilitation Goals: 1. Maintain the individual as the primary focus of care. 2. To improve the patient's quality of life. 3. Identification of cardiac risk factors and provide cardiac risk factor management. 4. Enhance the psychosocial status of the patient. 5. Reconditioning enough to allow the patient to resume customary activities. 6. Control symptoms of cardiac disease Scale for measuring improvement of personal goals: Enter appropriate number in Comments. 2 = Unchanged. 3 = Slightly Better. 4 = Moderate Improvement. 5 = Met my Goal Exercise - 60-Day Assessment - Visit Date of Eval: 06/23/19 Session #:: 23 - Stages of Change Stages of Change:: Action - Physician Prescribed Exercise Modalities: NuStep, SciFit Frequency (days/week): 3 Duration (Minutes):: 30-45 Intensity: 60-80% age predicted maximum heart rate reserve Target Heart Rate:: 98-127 Max HR 111 - Hypertension Resting Blood Pressure:: 142/64 Peak Exercise Blood Pressure:: 160/78 - Intervention Home Exercise/Activity Goal:: Sitting Time <3 hrs/day - Education Goals:: Warm-up, RPE INGA Scale, S/S, Safe Exercise, Self-Monitoring - Exercise Program Goals Exercise Program Goals: Aerobic Activity >30 min, B/P <130/80 Nutrition - Initial Assessment - Program Goals Nutrition Program Goals: LDL <70. Total Cholesterol <200. HDL >45. Triglycerides <150. HgbA1C <7%. BMI <25 - Diabetes Do you monitor your blood sugar at home?: Yes Nutrition - 60-Day Assessment - Program Goals Nutrition Program Goals: LDL <70. Total Cholesterol <200. HDL >45. Triglycerides <150. HgbA1C <7%. BMI <25 - Visit Date of Eval: 06/23/19 - Stages of Change Stages of Change:: Action - Diabetes Diabetes:: Yes Random Blood Glucose:: 93 - Weight Management Weight:: 129.274 kg - Intervention Referral to Diabetic Clinic:: No Will attend diet classes:: Yes - Education Attended class for:: Signs & symptoms of hypoglycemia, Signs & symptoms of hyperglycemia, Relate diabetes to coronary artery disease, Healthy eating Tobacco - Initial Assessment - Program Goals Tobacco Program Goals: Complete smoking cessation. Attend education classes. Improve Knowledge Test score - Learning Barriers Learning Barriers: Ready to Learn Tobacco - 60-Day Assessment - Program Goals Tobacco Program Goals: Complete smoking cessation. Attend education classes. Improve Knowledge Test score - Stage of Change Stages of Change:: Action - Learning Barriers Learning Barriers: Participates in education - Family Support Do you have family support?: Yes - Tobacco Use Tobacco Use: Non-smoker - Intervention Smoking Cessation Referral:: No Individual Education/Counseling:: No Education Schedule Given:: Yes - Education Attended class for:: Treating Heart Disease, How The Heart Works, What it means to have Heart Disease, How Coronary Artery Disease is Diagnosed, Heart Procedures, What Heart Medications Do, Risk Factors & Modifications, Living an Active Life, Nutrition, Emotions & Heart Disease, Stress Management & Relaxation, Sleep Disorders & Heart Disease Psychosocial - Initial Assess - Target Goals Target Goals: Assess presence or absence of depression. Using a valid screening tool, maximizes coping skills. Positive support system - Psychosocial Test Tool Used:: HANDS Depression Questionnaire - Assistive Devices Fall Risk Assessed:: Yes Psychosocial - 60-Day Assess - Target Goals Target Goals: Assess presence or absence of depression. Using a valid screening tool, maximizes coping skills. Positive support system - Stages of Change Stages of Change:: Action - Psychosocial Test Tool Used:: HANDS Depression Questionnaire - Intervention PS - Interventions: Yes Attend Stress Management Classes, Yes Uses Stress Management Skills, No Referral to Mental Health, No Referral to [facility] Case Management, No Referral to Physician - Education Attended classes for:: Coping techniques, Signs & symptoms of depression, Stress management, Relaxation techniques - Assistive Devices Assistive Devices:: None Fall Risk Assessed:: No Patient Health Questionnaire 60-Day Re-eval Assessment 1. Little interest or pleasure in doing things: Several days 2. Feeling down, depressed, or hopeless: Not at all 3. Trouble falling or staying asleep, or sleeping too much: Several days 4. Feeling tired or having little energy: Several days 5. Poor appetite or overeating: More than half the days 6. Feeling bad about yourself -- or that you are a failure or have let yourself or your family down: Several days 7. Trouble concentrating on things, such as reading the newspaper or watching television: Several days 8. Moving or speaking so slowly that other people could have noticed. Or the opposite - being so fidgety or restless that you have been moving around a lot more than usual: Not at all 9. Thoughts that you would be better off , or of hurting yourself in some way: Not at all How difficult have these problems made it for you to do your work, take care of things at home, or get along with other people?: Somewhat difficult Total Score: 7 Self-Efficacy 60-Day Re-eval Assessment We would like to know how confident you are in doing certain activities. Please select your confidence level for:: Select your confidence level for the following using the scale 1-10 where 1 is not at all confident and 10 is totally confident. Your score is the average of all 6 responses. Fatigue: How confident are you that you can keep the fatigue caused by your disease from interfering with the things you want to do? Select Number: 4 Physical Discomfort or Pain: How confident are you that you can keep the physical discomfort or pain of your disease from interfering with the things you want to do? Select Number: 6 Emotional Distress: How confident are you that you can keep the emotional distress caused by your disease from interfering with the things you want to do? Select Number: 6 Other Symptoms or Health Problems: How confident are you that you can keep other symptoms or health problems from interfering with the things you want to do? Select Number: 5 Different Tasks and Activities: How confident are you that you can do the different tasks and activities needed to manage your health condition so as to reduce your need to see a doctor? Select Number: 5 Medication: How confident are you that you can do things other than just taking medication to reduce how much your illness affects your everyday life? Select Number: 6 Total Score:: 5
[2019-06-23 13:39] VITALS: BP 142/64; BP 160/78
== END 2019-07-01 23:59 ==
LOC: CR 09:15
PROVIDERS: Family Provider Family Medicine; PCP Family Medicine; Referring Provider Internal Medicine Cardiovascular Disease; Visit Provider Internal Medicine Cardiovascular Disease
DX: I25.10 Atherosclerotic heart disease of native coronary artery without angina pectoris (principal); I25.5 Ischemic cardiomyopathy; I21.4 Non-ST elevation (NSTEMI) myocardial infarction; I35.0 Nonrheumatic aortic (valve) stenosis; Z95.5 Presence of coronary angioplasty implant and graft; I11.0 Hypertensive heart disease with heart failure; I50.43 Acute on chronic combined systolic (congestive) and diastolic (congestive) heart failure; E78.5 Hyperlipidemia, unspecified; I27.21 Secondary pulmonary arterial hypertension
CPT/HCPCS: 93798

== ENCOUNTER 2019-07-09 17:43 | Emergency (ER) | payer MEDICARE, SELFPAY ==
[2019-02-27 14:22] VITALS: BMI 42.2
[2019-05-23 14:38] VITALS: BMI 41.2
[2019-07-09 17:45] VITALS: BP 140/82; PULSE 80; RESP 16; TEMP 36.1; O2SAT 94; BMI 42.4
--- NOTE | 2019-07-09 17:52 | RAD_ITS ---
STUDY: X-RAY - RIGHT FOOT CLINICAL: Male, 69 years old. Laceration of the heel after stepping on glass TECHNIQUE: 3 view(s) of the foot. COMPARISON: 05/05/2016 FINDINGS: There is a plantar calcaneal spur. Normal visualized subtalar, talonavicular, calcaneocuboid, tarsal and tarsometatarsal articulations. Normal metatarsi. There is degenerative arthrosis of the metatarsophalangeal joint of the hallux . There is a bipartite tibial sesamoid. Normal interphalangeal joint of the great toe. Normal phalanges of the great toe. Normal second through fifth metatarsophalangeal joints. Normal interphalangeal joints and phalanges of the lesser toes. There are vascular calcifications. Calcifications of the plantar fascia identified. No definitive radiopaque foreign body demonstrated. RAD/Foot min 3 Views IMPRESSION: 1. No radiopaque foreign body demonstrated. 2. Plantar calcifications and calcaneal spur stable. 3. Atherosclerosis. Electronically Signed: Leo Sharma MD ([place]) at 18:16 EDT , Service support ,
[2019-07-09] MEDS: Diphth,Pertuss(Acell),Tet Vac 0.5 ML Vial IM (18:07)
[2019-07-09] MEDS: Ciprofloxacin 500 MG Tablet PO (18:07)
--- NOTE | 2019-07-09 18:55 | ED.VISSUMM ---
- ER Visit Summary Date of Service: 07/09/19 Chief Complaint: Foreign body History of Present Illness: The patient is a 69 M who cut his foot on some glass that shattered. He had a puncture wound to his right foot and was concerned about possible foreign body. Unknown tetanus status. He has diabetes with neuropathy. He takes Plavix. Physical Examination: Afebrile and vital signs unremarkable. He is alert and oriented. No acute distress. Acting appropriately. He has a small puncture wound about 1 mm to his right sole. There is mild dried blood. No active bleeding. No visualized foreign body. No other pertinent findings. Test Results: X-rays negative. Emergency Department Course and Treatment: Patient treated with tetanus prophylaxis and Cipro. His x-rays were negative. 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 Patient voiced understanding. I explained to him that he may or may not have a foreign body. If he does, it is likely very small. I feel that the risks of opening this up and digging in the wound outweigh any potential benefits. He may be fine without any further intervention. I explained signs and symptoms of a developing infection. I will refer him to podiatry for follow-up whether or not he is having signs or symptoms of infection. I asked him to get his wound rechecked within the next week. He will be treated with Cipro and a postoperative shoe. [id number] remedies for pain. Treatment Plan: As above Disposition: Discharge Impression: 1. Right foot puncture wound This note was generated with [employer] dictation software. It may contain incorrect words, spelling, and punctuation that were not noted in review of the chart prior to signing ED Disposition - Plan for ED Patient: Referrals: Boston Figueroa MD [Primary Care Provider] -
--- NOTE | 2019-07-09 18:58 | ED.DEP ---
ED Disposition - Plan for ED Patient: Instructions: PUNCTURE WOUND, Foot Prescriptions: Ciprofloxacin [Cipro] 500 mg PO BID #6 tab Prescription Printed Referrals: Boston Woodward DPM [STAFF PHYSICIAN] -
[2019-07-09 19:12] VITALS: BP 122/79; PULSE 76; RESP 17; O2SAT 95
== END 2019-07-09 19:13 | disposition home or self-care (01) ==
LOC: ED 19:02
PROVIDERS: Emergency Provider Emergency Medicine; Family Provider Family Medicine; PCP Family Medicine
DX: S91.341A Puncture wound with foreign body, right foot, initial encounter (principal); W25.XXXA Contact with sharp glass, initial encounter; Y93.9 Activity, unspecified; Y92.9 Unspecified place or not applicable; Y99.9 Unspecified external cause status; E11.40 Type 2 diabetes mellitus with diabetic neuropathy, unspecified; Z79.02 Long term (current) use of antithrombotics/antiplatelets; Z79.82 Long term (current) use of aspirin; Z79.899 Other long term (current) drug therapy
CPT/HCPCS: 73630; 90471; 90715; 96372; 99283

== ENCOUNTER 2019-07-24 09:15 | Outpatient (RCR) | payer MEDICARE, SELFPAY ==
[2019-02-27 14:22] VITALS: BMI 42.2
[2019-05-23 14:38] VITALS: BMI 41.2
[2019-07-02 00:16] VITALS: BP 142/64; BP 160/78
--- NOTE | 2019-07-24 10:57 | PCM.CR.ITP ---
General Information - General Information Admitting Diagnosis: PCI with stenting - Education/Goals Barriers to Learning: None Cardiac Rehabilitation Goals: 1. Maintain the individual as the primary focus of care. 2. To improve the patient's quality of life. 3. Identification of cardiac risk factors and provide cardiac risk factor management. 4. Enhance the psychosocial status of the patient. 5. Reconditioning enough to allow the patient to resume customary activities. 6. Control symptoms of cardiac disease Scale for measuring improvement of personal goals: Enter appropriate number in Comments. 2 = Unchanged. 3 = Slightly Better. 4 = Moderate Improvement. 5 = Met my Goal Exercise - 90-Day Assessment - Stages of Change Stages of Change:: Action - Physician Prescribed Exercise Modalities: NuStep, SciFit Frequency (days/week): 3 Duration (Minutes):: 30-45 Intensity: 60-80% age predicted maximum heart rate reserve METs - Progression: 0.5-1.0 MET, RPE 11-14 WEEK: 5 Target Heart Rate:: 98-127 Max HR 104 - Hypertension Resting Blood Pressure:: 140/62 Peak Exercise Blood Pressure:: 170/84 Medication Changes:: No - Intervention Home Exercise/Activity Goal:: Sitting Time <3 hrs/day - Education Goals:: Warm-up, RPE INGA Scale, S/S, Safe Exercise, Self-Monitoring - Exercise Program Goals Exercise Program Goals: Aerobic Activity >30 min, B/P <130/80 Nutrition - Initial Assessment - Program Goals Nutrition Program Goals: LDL <70. Total Cholesterol <200. HDL >45. Triglycerides <150. HgbA1C <7%. BMI <25 - Diabetes Do you monitor your blood sugar at home?: Yes Nutrition - 90-Day Assessment - Program Goals Nutrition Program Goals: LDL <70. Total Cholesterol <200. HDL >45. Triglycerides <150. HgbA1C <7%. BMI <25 - Visit Date of Eval: 07/24/19 - Stages of Change Stages of Change:: Action - Lipids Has the patient seen the dietitian?: No - Diabetes Diabetes:: Yes Random Blood Glucose:: 125 - Weight Management Weight:: 129.727 kg - Intervention Referral to dietitian:: No Referral to Diabetic Clinic:: No Will attend diet classes:: Yes - Education Attended class for:: Signs & symptoms of hypoglycemia, Signs & symptoms of hyperglycemia, Relate diabetes to coronary artery disease, Healthy eating Tobacco - Initial Assessment - Program Goals Tobacco Program Goals: Complete smoking cessation. Attend education classes. Improve Knowledge Test score - Learning Barriers Learning Barriers: Ready to Learn Tobacco - 90-Day Assessment - Program Goals Tobacco Program Goals: Complete smoking cessation. Attend education classes. Improve Knowledge Test score - Stage of Change Stages of Change:: Action - Learning Barriers Learning Barriers: Participates in education - Family Support Do you have family support?: Yes - Tobacco Use Tobacco Use: Non-smoker Do you use smokeless tobacco?: No - Intervention Smoking Cessation Referral:: No Individual Education/Counseling:: No Education Schedule Given:: Yes - Education Attended class for:: Treating Heart Disease, How The Heart Works, What it means to have Heart Disease, How Coronary Artery Disease is Diagnosed, Heart Procedures, What Heart Medications Do, Risk Factors & Modifications, Living an Active Life, Nutrition, Emotions & Heart Disease, Stress Management & Relaxation, Sleep Disorders & Heart Disease Psychosocial - Initial Assess - Target Goals Target Goals: Assess presence or absence of depression. Using a valid screening tool, maximizes coping skills. Positive support system - Psychosocial Test Tool Used:: HANDS Depression Questionnaire - Assistive Devices Fall Risk Assessed:: No Psychosocial - 90-Day Assess - Target Goals Target Goals: Assess presence or absence of depression. Using a valid screening tool, maximizes coping skills. Positive support system - Stages of Change Stages of Change:: Action - Psychosocial Test Tool Used:: HANDS Depression Questionnaire - Intervention PS - Interventions: Yes Attend Stress Management Classes, Yes Uses Stress Management Skills, No Referral to Mental Health, No Referral to [facility] Case Management, No Referral to Physician - Education Attended classes for:: Coping techniques, Signs & symptoms of depression, Stress management, Relaxation techniques - Assistive Devices Assistive Devices:: None Fall Risk Assessed:: Yes Patient Health Questionnaire 90-Day Re-eval Assessment 1. Little interest or pleasure in doing things: Several days 2. Feeling down, depressed, or hopeless: Not at all 3. Trouble falling or staying asleep, or sleeping too much: Several days 4. Feeling tired or having little energy: Several days 5. Poor appetite or overeating: More than half the days 6. Feeling bad about yourself -- or that you are a failure or have let yourself or your family down: Several days 7. Trouble concentrating on things, such as reading the newspaper or watching television: Several days 8. Moving or speaking so slowly that other people could have noticed. Or the opposite - being so fidgety or restless that you have been moving around a lot more than usual: Not at all 9. Thoughts that you would be better off , or of hurting yourself in some way: Not at all How difficult have these problems made it for you to do your work, take care of things at home, or get along with other people?: Somewhat difficult Total Score: 7 Self-Efficacy 90-Day Re-eval Assessment We would like to know how confident you are in doing certain activities. Please select your confidence level for:: Select your confidence level for the following using the scale 1-10 where 1 is not at all confident and 10 is totally confident. Your score is the average of all 6 responses. Fatigue: How confident are you that you can keep the fatigue caused by your disease from interfering with the things you want to do? Select Number: 4 Physical Discomfort or Pain: How confident are you that you can keep the physical discomfort or pain of your disease from interfering with the things you want to do? Select Number: 6 Emotional Distress: How confident are you that you can keep the emotional distress caused by your disease from interfering with the things you want to do? Select Number: 6 Other Symptoms or Health Problems: How confident are you that you can keep other symptoms or health problems from interfering with the things you want to do? Select Number: 5 Different Tasks and Activities: How confident are you that you can do the different tasks and activities needed to manage your health condition so as to reduce your need to see a doctor? Select Number: 5 Medication: How confident are you that you can do things other than just taking medication to reduce how much your illness affects your everyday life? Select Number: 6 Total Score:: 5
[2019-07-24 11:04] VITALS: BP 140/62; BP 170/84
== END 2019-07-31 23:59 ==
LOC: CR 09:15
PROVIDERS: Family Provider Family Medicine; PCP Family Medicine; Referring Provider Internal Medicine Cardiovascular Disease; Visit Provider Internal Medicine Cardiovascular Disease
DX: I25.10 Atherosclerotic heart disease of native coronary artery without angina pectoris (principal); I25.5 Ischemic cardiomyopathy; I21.4 Non-ST elevation (NSTEMI) myocardial infarction; I35.0 Nonrheumatic aortic (valve) stenosis; Z95.5 Presence of coronary angioplasty implant and graft; I11.0 Hypertensive heart disease with heart failure; I50.43 Acute on chronic combined systolic (congestive) and diastolic (congestive) heart failure; E78.5 Hyperlipidemia, unspecified; I27.21 Secondary pulmonary arterial hypertension
CPT/HCPCS: 93798

== ENCOUNTER → 2019-11-08 14:49 | Outpatient (CLI) | payer MEDICARE, SELFPAY ==
[2019-02-27 14:22] VITALS: BMI 42.2
--- NOTE | 2019-11-08 14:52 | ECHOCS_ITS ---
Reason For Study: Aortic Stenosis Procedure This was a 2D Doppler, Color Flow transthoracic echocardiogram. The study was technically difficult. Contrast injection was performed. Exam performed in department. Left Ventricle Normal LV size. Moderate concentric left ventricular hypertrophy. Left ventricular systolic function is normal. The estimated ejection fraction is 55 %. Stage 1 diastolic dysfunction. No regional wall motion abnormalities noted. Right Ventricle Normal RV size. Normal systolic function. Atria Normal left atrium. Normal right atrium. Mitral Valve Normal mitral valve. Tricuspid Valve Normal tricuspid valve. Aortic Valve Trisinus/trileaflet aortic valve. Moderate focal aortic valve calcification. Peak aortic valve gradient 33 mmHg. Mean aortic valve gradient 16 mmHg. Calculated aortic valve area (continuity equation) is 1.1 cm2. Mild (1+) aortic valve insufficiency. Pulmonic Valve Normal pulmonic valve. Great Vessels Normal aortic root. The pulmonary artery is normal size. Normal inferior vena cava. Pericardium/Pleural No pericardial effusion. Medication 22 gauge I.V. with prn adaptor inserted into right arm. Diluted definity 2ml given slow IV push to enhance endocardial definition. MMode/2D Measurements & Calculations LVIDd: 4.7 cm IVSd: 1.5 cm LVOT diam: 2.0 cm LVIDs: 3.2 cm LVPWd: 1.5 cm FS: 32.3 % LVOT area: 3.3 cm2 Ao root diam: 3.5 cm LAV(MOD-bp): 58.3 ml LA A4 area: 17.9 cm2 ACS: 0.91 cm LAV(MOD-bp) Indexed: 24.9 ml/m2 LAV(MOD-sp2): 67.3 ml LAV(MOD-sp4): 49.7 ml RA A4 area: 15.8 cm2 Time Measurements MV dec time: 0.36 sec Doppler Measurements & Calculations MV E max raghavendra: 53.0 cm/sec Lat Peak E' Raghavendra: 6.4 cm/sec Med Peak E' Raghavendra: 3.2 cm/sec MV A max raghavendra: 103.7 cm/sec E/E' lat: 8.3 E/E' med: 16.8 MV E/A: 0.51 MV V2 max: 92.1 cm/sec MV P1/2t max raghavendra: 74.0 cm/sec Ao V2 max: 288.3 cm/sec MV max P.4 mmHg MV P1/2t: 67.8 msec Ao max P.2 mmHg MV V2 mean: 46.0 cm/sec MV dec slope: 319.5 cm/sec2 Ao V2 mean: 183.4 cm/sec MV mean P.0 mmHg Ao mean P.9 mmHg MV V2 VTI: 25.4 cm MVA(P1/2t): 3.2 cm2 Ao V2 VTI: 50.2 cm MVA(VTI): 2.5 cm2 CATHIE(I,D): 1.3 cm2 CATHIE(V,D): 1.1 cm2 AI max raghavendra: 433.8 cm/sec LV V1 max: 98.6 cm/sec SV(LVOT): 64.3 ml AI max P.4 mmHg LV V1 max P.9 mmHg AI dec slope: 192.0 cm/sec2 LV V1 mean P.9 mmHg AI P1/2t: 661.9 msec LV V1 mean: 63.2 cm/sec LV V1 VTI: 19.8 cm PA V2 max: 97.3 cm/sec Interpretation Summary Normal LV size. Left ventricular systolic function is normal. The estimated ejection fraction is 55 %. Stage 1 diastolic dysfunction. Moderate concentric left ventricular hypertrophy. Contrast injection was performed. Ordering Physician: Sabas Bae Referring Physician: Boston Ruiz Performed By: Oscar Godoy RCS
== END ==
PROVIDERS: Family Provider Family Medicine; PCP Family Medicine; Referring Provider Internal Medicine Cardiovascular Disease; Visit Provider Internal Medicine Cardiovascular Disease
DX: I25.10 Atherosclerotic heart disease of native coronary artery without angina pectoris (principal); I25.2 Old myocardial infarction; Z95.5 Presence of coronary angioplasty implant and graft; I25.5 Ischemic cardiomyopathy; I35.0 Nonrheumatic aortic (valve) stenosis; I11.0 Hypertensive heart disease with heart failure; I50.43 Acute on chronic combined systolic (congestive) and diastolic (congestive) heart failure; I27.21 Secondary pulmonary arterial hypertension; E78.5 Hyperlipidemia, unspecified; R06.00 Dyspnea, unspecified
CPT/HCPCS: 93306; Q9957; A4216; C8929

== ENCOUNTER → 2019-11-29 08:26 | Outpatient (CLI) | payer MEDICARE, SELFPAY ==
[2019-02-27 14:22] VITALS: BMI 42.2
[2019-11-10 07:58] VITALS: BMI 41.3
[2019-11-29 11:08] LABS: AST(SGOT) 18 U/L (15-37); Alanine Aminotransfer ALT/SGPT 36 U/L (16-61); Albumin, Serum 3.7 g/dL (3.2-5.0); Alkaline Phosphatase 127 U/L (45-117); Bilirubin, Direct 0.15 mg/dL (0.00-0.30); Cholesterol 134 mg/dL (200); Globulin 3.9 g/dL (2.2-4.2); High Density Lipoprotein 42 mg/dL; Protein, Total 7.6 g/dL (6.4-8.2); Triglycerides 188 mg/dL; Very Low Density Lipoprotein 38 mg/dL (5-40)
== END ==
PROVIDERS: PCP Family Medicine; Referring Provider Internal Medicine Cardiovascular Disease; Visit Provider Internal Medicine Cardiovascular Disease
DX: I25.10 Atherosclerotic heart disease of native coronary artery without angina pectoris (principal); E78.5 Hyperlipidemia, unspecified
CPT/HCPCS: 36415; 80061; 80076

== ENCOUNTER → 2019-12-25 12:30 | Outpatient (CLI) | payer MEDICARE, SELFPAY ==
[2019-02-27 14:22] VITALS: BMI 42.2
[2019-11-10 07:58] VITALS: BMI 41.3
--- NOTE | 2019-12-24 18:30 | HP.PCM_ITS ---
History and Physical Date of Admission: 12/25/19 Ronnie Melgar a 69 year old male who is referred by Dr. Figueroa for colorectal cancer screening. The patient denies a family history of colon cancer. ? The patient was seen by Dr. Herr for colonoscopy 03/15/14. The procedure report has been reviewed and findings as follows: The quality of the bowel preparation was fair. Findings: A few medium-mouthed diverticula were found in the sigmoid colon and in the descending colon. Five year follow up since the prep was only fair. He reports drug induced constipation. ? The patient has a history of CAD with stents (5 in 12/2018 +3 in 04/2019), valvular heart disease (EF=55% 11/08/19), HTN, HLD, pulmonary hypertension, NIDDM (A1C 6.6 in 06/2019) and fatty liver. ? Presenting complaint: The patient denies change in bowel habits, rectal bleeding or abdominal pain. Having a bowel movement daily. Stools are formed. No straining. ? Denies upper GI symptoms. ?? ? PAST MEDICAL HISTORY ? Abnormal liver enzymes 02/01/2012 ? Aortic stenosis 03/05/2014 ? 04/25/2018 2D echo: mod Sees Dr. Bae ? Bilateral leg edema 04/21/2016 ? Calculus of gallbladder without cholecystitis without obstruction 02/14/2016 ? Coronary artery disease due to lipid rich plaque 04/19/2019 ? TAMIA to proximal OM #2, TAMIA to mid LCX, TAMIA to Proximal LAD 04/2019 ? Diabetic eye exam (HCC) 02/16/2014 ? [facility], Last Done: 05/19/2019: No Retinopathy ? Diastolic dysfunction 03/05/2014 ? 2D echo: 03/05/2014 ? Drug-induced constipation 03/05/2017 ? Essential hypertension with goal blood pressure less than 130/85 02/14/2016 ? Ex-smoker 05/06/2016 ? CT 12/26/2015 No AAA ? Family history of ischemic heart disease 03/08/2014 ? Fatty liver ? ? elevated LFT's ? Gout without tophus 10/09/2015 ? Gross hematuria 01/10/2018 ? 04/2018: cystoscopy normal. ? Heart murmur 02/27/2014 ? Hyperuricemia 06/03/2012 ? Low back pain with sciatica 01/20/2016 ? Lung nodule < 6cm on CT 05/06/2016 ? On CT from ER 05/05/2016: 2 in right upper lobe. Should repeat CT in 6-12 months ? Mixed hyperlipidemia 02/06/2014 ? Morbid obesity due to excess calories (HCC) 10/09/2015 ? Pain in both feet 06/03/2012 ? Pes planus of both feet 12/24/2015 ? Plantar fascial fibromatosis 12/24/2015 ? Pulmonary HTN (HCC) 03/06/2014 ? Mild per 2D echo 03/05/2014 ? Renal cyst, right 02/14/2016 ? hyperdense ? Type 2 diabetes mellitus with diabetic polyneuropathy, without long-term current use of insulin (HCC) 02/26/2017 ? Stopped glucophage due to increased anion Gap and LDH 03/2015. ? Valvular heart disease 03/05/2014 ? 2D echo 04/25/2018: EF=60%. Mod ? ? PAST SURGICAL HISTORY ? 2D ECHO (EXEP) ? 04/25/2018 ? EF=60%, mild diastolic dysf, mod ? 2D ECHO (EXEP) ? 02/10/2019 ? EF=37%, mod LV systolic Dysf, mild ryan dysf, Mod , 1+ AI ? 2D ECHO (EXEP) ? 11/08/2019 ? EF=55%, mild ryan dysf, mod LVH ? ARTHROTOMY,OPEN REPAIR MENISCUS ? 1980s ? Open knee reconstruction, Left ? CC CORONARY STENT ? 04/19/2019 ? TAMIA to proximal OM #2, TAMIA to mid LCX, TAMIA to Proximal LAD ? COLONOSCOP W/ OR W/O BRSH SPEC ? 03/15/14 ? Colonoscopy, repeat in 5 yrs ? FECAL OCCULT BLOOD TEST ? 03/09/2017 ? negative ? LAPAROSCOPY, SURGICAL, APPENDECTOMY ? ? LEFT HEART CATH,PERCUTANEOUS ? 1998 ? Cardiac cath, L heart, [facility] ? STRESS TEST ? 01/31/2018 ? normal ? TOTAL KNEE REPLACEMENT ? 2006 ? Knee replacement, total, Right, [facility] ? FAMILY HISTORY ? Diabetes Mother ? ? age 80 ? Hypertension Mother ? ? Diabetes Father ? ? age 55, coma ? Hypertension Father ? ? Hypertension Sister ? ? Hypertension Brother ? ? Coronary Artery Disease Brother 65 ? Diabetes Brother ? ? Lipids Brother ? ? Prostate Cancer Brother ? ? mid 50's ?? CURRENT MEDICATIONS ? glipiZIDE (GLUCOTROL) 5 mg tablet Take 1 tablet by mouth twice daily. 180 tablet 1 ? allopurinol (ZYLOPRIM) 300 mg tablet Take 1 tablet by mouth once daily. 90 tablet 1 ? Blood-Glucose Meter (ACCU-CHEK FIORDALIZA PLUS METER) misc Test once daily 1 Each 0 ? isosorbide mononitrate ER (IMDUR) 30 mg 24 hr tablet DAILY ? ? ? atorvastatin (LIPITOR) 40 mg tablet Take 2 tablets by mouth once daily. ? ? ? lisinopril (ZESTRIL, PRINIVIL) 10 mg tablet DAILY ? ? ? clopidogrel (PLAVIX) 75 mg tablet ? blood sugar diagnostic (ACCU-CHEK FIORDALIZA PLUS TEST STRP) test strip Test blood sugar(s) 1 times daily. Dx: e11.9. Insulin: No 100 Strip 3 ? Lancets (ACCU-CHEK SOFTCLIX LANCETS) lancets Test blood sugar(s) 1 times daily. Dx: e11.9. Insulin: No 100 Each 3 ? carvedilol (COREG) 3.125 mg tablet Take 1 tablet by mouth twice daily. 180 tablet 1 ? carvedilol (COREG) 3.125 mg tablet Take 1 tablet by mouth twice daily. 28 tablet 0 ? nitroglycerin sublingual (NITROQUICK) 0.4 mg SL tablet Dissolve 1 tablet under the tongue every 5 minutes as needed for Chest Pain. 1 Bottle of 25 ? ? furosemide (LASIX) 40 mg tablet Take 1 tablet by mouth twice daily. Dr. Cason ? ? ? Amoxicillin 500 mg tablet Take 4 tabs by mouth 1 hr prior to dental cleaning, hx of knee replacement. 4 tablet 2 ? Aspirin 81 mg tab Take 1 tablet by mouth once daily. Take with food. 30 tablet 11 ? MULTI-VITAMIN ORAL Take by mouth once daily. ? SOCIAL HISTORY: Patient is . He quit smoking in 2010. No cannabis. Reports his alcohol use as occasionally. ? REVIEW OF SYSTEMS: GENERAL: No weight loss, malaise or fevers HEENT: Negative for frequent or significant headaches, No changes in hearing or vision, no nose bleeds or other nasal problems NECK: Negative for lumps, goiter, pain and significant neck swelling RESPIRATORY: Pulmonary hypertension. Denies SOB. CARDIOVASCULAR: Hypertension, CAD with stents, and vavular heart disease with EF of 55%. GI: The patient states that his appetite has been good. He does get hungry. There has been no nausea, no vomiting. He denies dysphagia and denies odynophagia. There has not been indigestion or heartburn. There has not been regurgitation. Bowel habits have been regular. There has not been diarrhea. There has not been constipation. The patient denies rectal bleeding. There has not been melena. No abdominal pain. PSYCH: Negative for sleep disturbance, mood disorder and recent psychosocial stressors. HEMATOLOGY/LYMPHOLOGY : On Eliquis ENDOCRINE: Negative for cold or heat intolerance, polyuria, polydipsia and goiter NEURO: No history of headaches, syncope, paralysis, seizures or tremors All other reviewed and negative other than HPI. ? PHYSICAL EXAMINATION: Blood pressure 138/74, pulse 64, height 175.3 cm (5' 9), weight 126.6 kg (279 lb), SpO2 96 %. General Appearance: Well appearing, alert, in no acute distress, well-hydrated, well nourished. Skin: Skin color, texture, turgor normal, no suspicious rashes or lesions. Head: Normocephalic, no masses, lesions or abnormalities. Eyes: Anicteric sclera. Oropharynx: Lips, mucosa, and tongue normal, teeth and gums normal, oropharynx normal. Neck: Supple, no adenopathy; thyroid symmetric, normal size, no bruits. Lungs: lungs clear to auscultation. No wheezing, rhonchi, rales. Heart: RR with 2-3/6 murmur. Abdomen: Abdomen soft, non-tender. Bowel sounds normal. No masses, organomegaly. Extremities: No deformities, edema, skin discoloration, clubbing or cyanosis. Peripheral Pulses: Normal. Neurologic: Gait normal. Reflexes normal and symmetric. Sensation grossly intact. ? ? Impression: colorectal cancer screening ? ? Plan: This patient will be scheduled for a colonoscopy. I have recommended MAC. He will be using GoLytely as the prep. ? 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 I will fax the notes to that office and they will contact him. ? The patient is asked to call with any questions for concerns, or should there be any change in health status between now and the scheduled procedure. ? ? Meaghan He RN LINUX SERVER ADMINISTRATOR.COMMUNITY OUTREACH WORKER
== END ==
PROVIDERS: PCP Family Medicine; Visit Provider Surgery
DX: Z12.11 Encounter for screening for malignant neoplasm of colon (principal); Z53.9 Procedure and treatment not carried out, unspecified reason
CPT/HCPCS: J7120

== ENCOUNTER 2020-01-24 06:43 | Outpatient (CLI) | payer MEDICARE, SELFPAY ==
[2019-02-27 14:22] VITALS: BMI 42.2
[2019-11-10 07:58] VITALS: BMI 41.3
[2020-01-24] VITALS (16 sets, daily range): BP systolic 112–176; BP diastolic 72–127; PULSE 63–72; RESP 15–25; TEMP 36.6–36.7; O2SAT 93–97; BMI 41.8; BMI 42.6
--- NOTE | 2020-01-24 09:50 | CON.PCM_ITS ---
Reason for Consult Date of Consultation: 01/24/20 Reason for Consultation: Chest pain History of Present Illness: The patient is a 69 year old M who presented for a pharmacologic stress test. He had been hospitalized here in April 2018 with hypertension, cardiac murmur and was noted at that time to have asymptomatic mild aortic stenosis. He had had a pharmacologic stress test which at that time was noted to be normal. He says that he was recently in [place] in September of 2018 he was having worsening dyspnea and was found to have at least moderate aortic stenosis with an ejection fraction of 40% and was thought to have low flow low gradient aortic stenosis. His cardiac catheterization on 12/29/2018 demonstrated 90% stenosis of the left anterior descending artery, 60% stenosis of the circumflex artery, and 90% stenosis of the right coronary artery. He had a duplex carotid study done which demonstrated less than 50% stenosis primary function test demonstrated an FEV1 of 51%. He was scheduled to have aortic valve surgery and bypass surgery and he was noted to have a cellulitis and therefore the test was canceled. He had been previously seen in the office and then eventually underwent a cardiac catheterization which demonstrated disease and He therefore underwent Successful PTCA/TAMIA of proximal RPL branch using a 2.25 x 12 Promus Synergy; 75%-->0%, no dissection. He also underwent Successful PTCA/TAMIA distal RCA with a 2.5 x 16 Promus Synergy, post dilated with a 3.0 x 8 NC Balloon; 75%-->0%, no dissection. In addition he underwent Successful PTCA/TAMIA mid RCA with a 2.5 x 32 Promus Synergy, post dilated throughout with a 3.0, 3.5 and 3.75 NC Balloon; 85%-->0%, no dissection. After that he came back and was scheduled for and underwent a drug-eluting stent placement to the second obtuse marginal branch of the mid circumflex, and the left anterior descending artery in April 2019. He recently underwent another echocardiographic evaluation this month his ejection fraction was 55%, with moderate concentric left ventricular atrophy, his mean gradient across his aortic valve was 16 mmHg. Today he came into the hospital and underwent a pharmacologic stress test during which he developed chest discomfort requiring sublingual nitroglycerin. He also underwent the nuclear imaging test which demonstrated evidence of mid anterior and mid inferior ischemia. 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 Due to his continued chest pain it was decided to admit him for further evaluation and management. His physical exam demonstrates clear lung collins regular rate and rhythm soft 2/6 systolic murmur noted left sternal border and no pedal edema. Past Medical History Allergies/Adverse Reactions: Allergies metformin Adverse Reaction (Verified 11/10/19 07:58) Elevated LDH and anion gap Home Medications: Ambulatory Orders Medication Instructions Recorded Allopurinol [Zyloprim] 300 mg PO DAILY 04/10/16 aspirin 81 mg tablet,delayed 81 mg PO QDAY 04/14/18 release multivitamin 1 tab PO DAILY 01/25/19 nitroglycerin 0.4 mg sublingual 0.4 mg SUBLINGUAL Q5-15M PRN 01/25/19 tablet isosorbide mononitrate 30 mg 30 mg PO DAILY #90 tab 03/24/19 tablet,extended release 24 hr lisinopril 10 mg tablet 10 mg PO DAILY #90 tab 03/24/19 atorvastatin 80 mg tablet 80 mg PO QHS #90 tab 03/31/19 furosemide 40 mg tablet 40 mg PO DAILY #90 tab 03/31/19 glipizide 5 mg tablet 5 mg PO BID tab 05/23/19 clopidogrel 75 mg tablet 75 mg PO DAILY #30 tab 07/26/19 carvedilol 6.25 mg tablet 6.25 mg PO BID #180 tab 01/18/20 Past Medical History (Chronic Problems): Chronic Problems (Last Reviewed 11/10/19 @ 09:[address] 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 Sabas Bae MD) Mother Diabetes Hypertension Father Diabetes Hypertension Sister Hypertension Brother Diabetes Hypertension Cancer, Onset Age: 50 CAD (coronary artery disease) History Items: No pertinent history Paternal Family History: Family History (Last Reviewed 11/10/19 @ 09:[address] Sabas Bae MD) Mother Diabetes Hypertension Father Diabetes Hypertension Sister Hypertension Brother Diabetes Hypertension Cancer, Onset Age: 50 CAD (coronary artery disease) History Items: No pertinent history Lives: Alone Smoking Status: Former smoker Alcohol: None Drugs: None Review of Systems - Review of Systems General: Denies: Fever, Night Sweats, Fatigue HEENT: Denies: Vision Change Cardiovascular: Reports: Chest Discomfort, Chest Discomfort at Rest. Denies: Shortness of Breath, Orthopnea, PND, Peripheral Edema, Palpitations, Lightheadedness, Dizziness, Near Syncope, Syncope Respiratory: Denies: Cough, Sputum Production, Hemoptysis Gastrointestinal: Denies: Hematemesis, Hematochezia, Melena Genitourinary: Denies: Dysuria, Hematuria Muscoloskeletal: Denies: Myalgias Skin: Denies: Rash Neurological: Denies: Dizziness Psychiatric: Denies: Anxiety Endocrine: Denies: Heat Intolerance Hematologic/ Lymphatic: Denies: Anemia Subjectve: Pleasant gentleman in no distress but having intermittent chest discomfort Objective: Weight: 283 lb Body Mass Index (BMI) 41.8 General: Awake, Alert, Oriented x 3 HEENT: PERRL, EOMI, Sclera Non Icteric Neck: Supple, Good ROM, No Lymph Node Enlargement Lungs: Clear to auscultation Cardiovascular: Regular Rhythm, Normal S1, Normal S2, No Rubs, No Gallops Murmur Murmur: Grade 2/6, Early Systolic, LLSB Vascular: No Carotid Bruits, Normal Femoral Pulses, Normal Radial Pulses, Normal Dorsalis Pedal Pulse, Normal Posterior Tibial Pulses Abdomen: Bowel Sounds Present, Soft, Non Tender, No HSM, No Organomegaly Extremities: No Cyanosis, No Clubbing, No edema Musculoskeletal: No Erythema Lymphatic: No Lymph Node Enlargement Neurological: No Focal Motor or Sensory Deficit Psych/Mental Status: Appropriate Rhythm: EKG: Normal sinus rhythm with nonspecific ST changes ECHO: Stress Test: Cardiac Cath: PCI: CT Surgery: Holter monitor: EPS: PPM: CXR: Chest CT Scan: Assessment/Plan 1. History of coronary artery stent placement Z95.5 [id number] RPLB w/ 2.25 x 12 mm Promus Synergy Stent, TAMIA-Distal RCA w/ 2.5 x 16 mm Promus Synergy Stent, and TAMIA-Mid RCA w/ 2.5 x 32 mm Promus Synergy Stent 02/27/19; PTCA/TAMIA to proximal/ostial OM#2 with a 2.25 x 20 Promus Synergy stent, PTCA/TAMIA mid LCX with a 2.25 x 20 Promus Synergy, followed immediately upstream with a 2.25 x 16 Promus, PTCA/TAMIA proximal LAD with a 2.25 x 24 Promus Synergy, followed immediately downstream with a 2.25 x 12 Promus Synergy on 04/19/2019; Plan He is status post previous multivessel angioplasty and stenting. He has been having chest pain which has been progressive and now has an abnormal stress test and was having chest pain at rest. It is therefore felt that he should undergo an urgent cardiac catheterization. The risk benefits alternatives have been explained to him he understands and agrees to proceed. 2. Essential (primary) hypertension I10 Plan He does have a history of hypertension which appears to be fairly well- controlled on the current medical therapy no major changes will be made. 3. Hyperlipidemia E78.5 Plan He does have a history of hyperlipidemia. His most recent lipid profile demonstrated total cholesterol 108, LDL 37 and HDL of 37. 4. Moderate aortic stenosis * He does have a history of moderate aortic stenosis. He would undergo repeat echocardiogram to reassess his aortic valve issues. At this particular time no major changes will be made. * * Thank you for allowing me to participate in the care of your patient. Please don't hesitate to call if any issues arise.
[2020-01-24 10:10] LABS: Hematocrit 45.7 % (40-54); Hemoglobin 14.8 g/dL (13.0-16.5); Mean Corp Hgb Conc 32.4 g/dL (32-36); Mean Corpuscular Hgb 30.1 pg (27.0-32.0); Mean Corpuscular Volume 92.9 fL (80-94); Mean Platelet Vol. 10.4 fl (6.2-12.0); Platelet Count 173 K/mm3 (150-450); RBC Distribution Width CV 13.9 % (11.6-14.6); RBC Distribution Width SD 47.6 fl (35.1-43.9); Red Blood Count 4.92 M/mm3 (4.6-6.2)
[2020-01-24 10:14] LABS: Anion Gap 8 (5-15); BUN 20 mg/dL (7-18); BUN/Creat Ratio 14.3 RATIO (10-20); Calcium,Total 8.8 mg/dL (8.5-10.1); Chloride 104 mmol/L (98-107); EST Glomerular Filtration Rate 53 mL/min (>60); Est Glom Filt Rate - Afr Amer 64 mL/min (>60); Glucose 163 mg/dL (74-106); Potassium 4.7 mmol/L (3.5-5.1); Sodium Level 139 mmol/L (136-145)
--- NOTE | 2020-01-24 10:14 | CASEMGMT ---
According to the [facility] website, the following are in-network tertiary facilities: [facility], [facility], [facility], [facility], [facility], [facility], [place], [facility], and . Karlos MOROCHO CM
--- NOTE | 2020-01-24 10:56 | STRESSREP_ITS ---
Stress Test Report Pharmacologic myocardial perfusion stress test. 69-year-old man with a history of coronary artery disease. Resting EKG demonstrates normal sinus rhythm with a rate of 68 bpm normal intervals are noted resting blood pressures 126/88 mmHg. 0.4 mg of regadenoson was infused per usual protocol followed Intravenous saline flush injection continuous EKG monitoring was performed. Patient maintained sinus rhythm throughout the recording. The maximum heart rate was 85 bpm which was 56% of maximum predicted heart rate the maximum workload was 1 metabolic equivalent. At rest there were no ST or T wave changes noted suggest abnormal flow reserve. During infusion there was approximately 1.[address] depression noted in leads II suggestive but not diagnostic of ischemia. Full stress test patient developed some chest discomfort. EKG done demonstrated ST depression noted in lead II and aVF. There was also subtle ST elevation noted in lead III. Patient was given sublingual nitroglycerin with resolution of the chest discomfort. The resting blood pressures 126/88 mmHg. Myocardial perfusion protocol. 14.8 mCi of technetium 99m sestamibi was injected at rest. 0.4 mg of regadenoson was infused per usual protocol peak infusion 44.7 mCi of technetium 99m sestamibi was injected stress images were obtained stress and rest images were reconstructed and compared in the short axis vertical long horizontal long axis. Gated images were also obtained Perfusion SPECT analysis: Review of the stress images demonstrate a medium size area noted in the anterior septal wall with a moderate amount of perfusion abnormality noted. There is also a medium size area in the mid inferior wall with a perfusion abnormality noted. During the rest there was improvement in the anterior wall and inferior wall with persistence of reduced perfusion noted in the basal inferior wall. The above is suggestive of mid anterior ischemia, mid inferior ischemia, and a previous basal inferior infarct. Gated SPECT analysis: The gated ejection fraction was noted to be 51%. Conclusion: Abnormal pharmacologic myocardial perfusion stress test with evidence of multi- territory ischemia involving the anterior and the inferior wall.
--- NOTE | 2020-01-24 11:15 | CL.D_ITS ---
Patient Name: LUIS DEE Study Date: 01/24/2020 Performing: Sabas Bae MD Ht: 69 inches 175.26 cm : 1950 Wt: 283.01 lbs 128.37 kg Age: 69 Gender: male BSA: 2.39 PROCEDURE(S) PERFORMED CH28-SAP/COR [id number], CORONARY OR GRAFT, INITIAL VESSEL [id number] W OR WO PTCA, SINGLE CORONARY ARTERY [id number] W OR WO PTCA, EACH ADD'L ARTERY, SAME MAJOR CLINICAL PROFILE AND INDICATIONS Indications: Suspected CAD Heart Failure: None CONCLUSIONS Severe coronary disease with proximal LAD stenosis prior to the stent with in-stent stenosis, the rodolfo nts to the circumflex artery are patent, the stent to the right coronary artery has a high-grade in-s tent stenosis. Moderate aortic stenosis by echocardiogram is noted RECOMMENDATIONS Referred for immediate PCI DESCRIPTION OF PROCEDURE The patient arrived to the procedure lab. The risks and benefits of the procedure as well as a full d escription of our services here and current unavailability of surgical backup were fully explained to the patient and/or their significant other prior to the catheterization. The Timeout was completed, verifying the correct patient and procedure. The patient's procedural site was prepped and draped in the usual fashion. Local anesthetic was given subcutaneously to right radial region with Lidocaine 2% . Local anesthetic was given subcutaneously to right groin region with Lidocaine 2%. Using a modified Seldinger technique, arterial access was obtained via the right radial artery, a 6Fr sheath was inse rted., arterial access was obtained via the right femoral artery, a 6Fr 55cm sheath was inserted. [facility] Coronary Artery selective angiography was then performed in multiple views using a 5 Fr. 4.0 Tige r catheter. Left Coronary Artery selective angiography was performed in multiple views using a 5 Fr. 4.0 [place] catheter.The arterial sheath was pulled and a TR Band was applied for hemosta sis - 10cc air CORONARY ANGIOGRAPHY DOMINANCE: Right Dominant LEFT HEART ASSESSMENT Left Ventricular Ejection Fraction: by Echo 55 % Normal LV wall motion Normal Left Ventricular systolic function LEFT MAIN: Angiographically normal LEFT ANTERIOR DESCENDING ARTERY: PROX LAD: 95 % Stenosis, Instent restenosis 80 % DIAGONAL 1: Proximal - Moderate luminal irregularities up to 50% CIRCUMFLEX ARTERY: MID CIRC: Previously placed stent is patent RIGHT CORONARY ARTERY: MID RCA: Previously placed stent has an instent 90 % restenosis VALVE FINDINGS: Aortic Valve Calcification - moderate COMPLICATIONS PROCEDURE MEDICATIONS Fentanyl 50 mcg IV Versed 1 mg IV Oxygen: 2 L/min via nasal cannula Baby Aspirin (81mg) 1 Tabs PO @ 01/24/2020 09:51:07 Heparin diluted in 23cc Heparinized saline. Patient given 10cc IA of this solution. 01/24/2020 10:36: 07 Heparin 6000 unit(s) IV 01/24/2020 11:04:04 Nitro Tab 1 mg PO 01/24/2020 09:51:21 Plavix 75 mg PO 01/24/2020 09:51:13 Verapamil 2.5mg, Ntg 100mcgs, 2000 units of Heparin diluted in 23cc Heparinized saline. Patient give n 10cc IA of this solution. 01/24/2020 10:36:07 SUMMARY OF HEMODYNAMIC DATA Time AIR REST ECG 10:26:20 AO 115/81 (96) SA 10:38:19 Signed By Sabas Bae MD On 01/24/2020 11:13:56 Sabas Bae MD
[2020-01-24 12:46] LABS: ACT Activated Clotting Time 235 sec (74-137)
[2020-01-24 12:46] LABS: ACT Activated Clotting Time 301 sec (74-137)
--- NOTE | 2020-01-24 13:08 | CL.I_ITS ---
Patient Name: RONNIE DEE Study Date: 01/24/2020 Performing: Ronnie Ball MD Ht: 69 inches 175.26 cm : 1950 Wt: 283.01 lbs 128.37 kg Age: 69 Gender: male BSA: 2.39 PROCEDURE(S) PERFORMED [id number], CORONARY OR GRAFT, INITIAL VESSEL [id number] W OR WO PTCA, SINGLE CORONARY ARTERY [id number] W OR WO PTCA, SINGLE CORONARY ARTERY [id number], SINGLE CORONARY ARTERY [id number], CORONARY OR GRAFT, INITIAL VESSEL CLINICAL PROFILE AND CO-MORBIDITIES Indications: Suspected CAD, New Onset Angina <= 2 months, Stable Known CAD, Valvular Disease Heart Failure: NYHA Class: 1, Newly Diagnosed: No, Heart Failure Type: Systolic Stress/Imaging Date: 01/24/2020 Stress Test with SPECT MPI: Positive Intermediate Risk Angina Classification Anginal Classification w/in 2 Weeks: CCS III CAD Presentations: Unstable angina. Comorbidities/Risk Factors: Hypertension Dyslipidemia Prior CHF Prior PCI CONCLUSIONS Successful PTCA/TAMIA of mid RCA ISR with IVUS guidance, utilizing a 3.0 x 10 Jacobson cutting balloon , followed by a 3.0 x 24 Promus Synergy, post dilatd with a 3.0 and 3.5 NC balloon; 85%-->0%, no diss ection. Successful PTCA/TAMIA proximal LAD with IVUS guidance and utilizing a 2.5 x 10 Jacobson cutting balloo n, followed with a 2.5 x 24 Promus Syergy, post dilated proximally with a 3.0 x 8 NC balloon; 85%-->0 %, no dissection or encroachment on ostial DIAG. Passage of 2.0 x 12 balloon down LCX showed no sten t protrusion into LCX. Successful PCI with PTCA to the ostial DIAG with a 2.0 x 12 balloon; 85%-->50%, no dissection. Successful PCI with PTCA to the ostial OM ISR with a 2.0 x 12 balloon; 85%-->50%, no dissection. RECOMMENDATIONS Highly recommend quitting all tobacco products Follow up with primary in flight technician Risk factor modification ASA Indefinitley Plavix for at least 12 months Routine post interventional care Refer for Outpatient Cardiac Rehab Manual sheath removal per protocol Follow up with Dr. Bae Successful Mynx Control closure of RFA. Successful TR band of right radial during case. If pt has recurrent ISR, would recommend AVR and CABG. DESCRIPTION OF PROCEDURE The patient arrived to the procedure lab. The risks and benefits of the procedure as well as a full d escription of our services here and current unavailability of surgical backup were fully explained to the patient and/or their significant other prior to the catheterization. The Timeout was completed, verifying the correct patient and procedure. The patient's procedural site was prepped and draped in the usual fashion. Local anesthetic was given subcutaneously to right radial region with Lidocaine 2% . Local anesthetic was given subcutaneously to right groin region with Lidocaine 2% Using a modified Seldinger technique,arterial access was obtained via the right radial artery, a 6Fr sheath was insert ed., arterial access was obtained via the right femoral artery, a 6Fr 55cm sheath was inserted. Right Coronary Artery selective angiography was then performed in multiple views using a 5 Fr. 4.0 [place] c atheter. Left Coronary Artery selective angiography was performed in multiple views using a 5 Fr. 4.0 [place] catheter.The images were reviewed and options discussed. A decision was then made t o proceed with an Intervention, IVUS or other adjunct procedure. AL1 Guide catheter was inserted and engaged into the RCA. bmw Guide wire was advanced to the RCA. Balloon catheter was advanced across lesion in the right coronary, mid. 2.0X12 EMERGE Balloon cathet er was inserted. Angiogram performed pre balloon dilatation. PTCA balloon inflated at 10 atms for 17 secs. PTCA balloon inflated at 10 atms for 11 secs. IVUS pullback recording was performed on the MID RCA for pre- intervention / lesion assessment. 3.0X10 WOLVERINE Cutting balloon catheter was inserted 3.0X10 WOLVERINE Cutting balloon catheter was inserted Cutting balloon catheter was advanced to the lesion in the right coronary, mid. Cutting balloon catheter was advanced to the lesion in the right c oronary, mid. Angiogram performed pre stent deployment. 3.0X24 SYNERGY Drug Eluting stent was inserte d. Drug Eluting stent was advanced across the lesion in the right coronary, mid. Angiogram performed post stent deployment. 3.0X12 NC EMERGE Balloon catheter was inserted. Balloon catheter was advanced across lesion in the right coronary, mid. Angiogram performed post balloon dilatation. B alloon catheter was reinserted Angiogram performed post balloon dilatation. IVUS pullback recording w as performed on the MID RCA for post PCI assessment. 3.5X8 NC EMERGE Balloon catheter was inserted. Balloon catheter was advanced across lesion in the right coronary, mid. Angiogram performed post ball oon dilatation. IVUS pullback recording was performed on the MID RCA for post PCI assessment. EBU 3. 75 Guide catheter was inserted and engaged into the LCA. BMW Guide wire was advanced to the LAD. BMW2 Guide wire was advanced to the 1st Diagonal. Angiogram performed pre balloon dilatation. 2.0X12 JESSICA GE Balloon catheter was advanced across lesion in the lad, proximal. Angiogram performed post balloon dilatation. 2.0X10 WOLVERINE Cutting balloon catheter was inserted 2.0X10 WOLVERINE Cutting balloon catheter was inserted Cutting balloon catheter was advanced to the lesion in the LAD, proximal. Cutting balloon catheter was advanced to the lesion in the LAD, proximal. Cutting balloon c atheter was reinserted Cutting balloon catheter was reinserted BMW2 Guide wire was advanced to the 1s t OM. 2.0X8 EMERGE Balloon catheter was inserted. Angiogram performed post balloon dilatation. 2.5X24 SYNERGY Drug Eluting stent was inserted. Drug Eluting stent was advanced across the lesion in the LA D, proximal. Angiogram performed pre stent deployment. Angiogram performed post stent deployment. IVU S pullback recording was performed on the PROX LAD for post PCI assessment. 2.5X12 NC EMERGE Balloon catheter was inserted. Balloon catheter was advanced across lesion in the LAD, proximal. IVUS pullba ck recording was performed on the PROX LAD for post PCI assessment. Balloon catheter was inserted. B alloon catheter was advanced across lesion in the first obtuse marginal, ostial. PTCA balloon inflate d at 8 atms for 19 secs. 3.0X12 NC EMERGE Balloon catheter was inserted. Balloon catheter was advanced across lesion in the LAD, PROXIMAL. PTCA balloon inflated at 8 atms for 13 secs. PTCA ba lloon inflated at 10 atms for 11 secs. Arterial sheath was exchanged for a 6 Fr 11CM Sheath. Contrast was injected through the sheath and the Right Iliac and Femoral artery were assessed for possible cl osure device. The arterial sheath was pulled and a TR Band was applied for hemostasis - 10cc air. Th e arterial sheath was pulled and a Mynx closure device was deployed for hemostasis INTERVENTION INFORMATION LESION SITE: RCA (Mid) Lesion Complexity: High/C, lesion at bifurcation: No, thrombus present: No, lesion length: 24 mm, cul prit lesion: Yes, In-stent restenosis: Yes Pre Stenosis: 85 % Pre intervention VICTOR M flow: 3 PROCEDURE: Cutting Balloon Angioplasty, Drug Eluting Stent with pre and post dilatation, IVUS for pre PCI assess ment and post stent placement Post Stenosis: 0 % Post intervention VICTOR M flow: 3 Lesion Devices: Hines .014 BMW Cord Straight 190cm Krish Sci EMERGE MR 2.00x12 BALLOON Krish Sci Synergy MR TAMIA 3.00x24 Krish Sci NC EMERGE MR 3.00x12 BALLOON Krish Sci NC EMERGE MR 3.50x08 BALLOON Krish Sci Jacobson cutting balloon 3.0x10 LESION SITE: 1st Diagonal (Ostial) Lesion Complexity: Non-High/Non-C, lesion at bifurcation: Yes, thrombus present: No, lesion length: 8 mm, culprit lesion: No Pre Stenosis: 85 % Pre intervention VICTOR M flow: 3 PROCEDURE: Balloon Angioplasty Post Stenosis: 50 % Post intervention VICTOR M flow: 3 Lesion Devices: Hines .014 BMW Cord Straight 190cm Krish Sci EMERGE MR 2.00x12 BALLOON Hines .014 BMW Cord Straight 190cm Krish Sci Synergy MR TAMIA 2.50x24 Krish Sci NC EMERGE MR 2.50x12 BALLOON Krish Sci Jacobson cutting balloon 2.0x10 LESION SITE: 1st OM (Ostial) Lesion Complexity: High/C, lesion at bifurcation: Yes, thrombus present: No, lesion length: 24 mm, cu lprit lesion: No, In-stent restenosis: Yes Pre Stenosis: 85 % Pre intervention VICTOR M flow: 3 PROCEDURE: Cutting Balloon Angioplasty Drug Eluting Stent with pre and post dilatation IVUS for pre PCI assessment and post stent placement Post Stenosis: 0 % Post intervention VICTOR M flow: 3 Lesion Devices: Krish Sci EMERGE MR 2.00x12 BALLOON Hines .014 BMW Cord Straight 190cm LESION SITE: 1st OM (Ostial) Lesion Complexity: Non-High/Non-C, lesion at bifurcation: Yes, thrombus present: No, lesion length: 8 mm, culprit lesion: No, In-stent restenosis: Yes Pre Stenosis: 85 % Pre intervention VICTOR M flow: 3 PROCEDURE: Balloon Angioplasty Post Stenosis: 50 % Post intervention VICTOR M flow: 3 COMPLICATIONS No Complications PROCEDURE MEDICATIONS Fentanyl 50 mcg IV Versed 1 mg IV Oxygen: 2 L/min via nasal cannula Baby Aspirin (81mg) 1 Tabs PO @ 01/24/2020 09:51:07 Heparin diluted in 23cc Heparinized saline. Patient given 10cc IA of this solution. 01/24/2020 10:36: 07 Heparin 6000 unit(s) IV 01/24/2020 11:04:04 Heparin 4000 unit(s) IV 01/24/2020 11:36:42 Nitro Tab 1 mg PO 01/24/2020 09:51:21 Nitro 200 mcg IC 01/24/2020 11:21:52 Plavix 75 mg PO 01/24/2020 09:51:13 Verapamil 2.5mg, Ntg 100mcgs, 2000 units of Heparin diluted in 23cc Heparinized saline. Patient give n 10cc IA of this solution. 01/24/2020 10:36:07 IV Bolus: .9 NaCl 600 ml total 01/24/2020 12:29:14 SUMMARY OF HEMODYNAMIC DATA Time AIR REST ECG 10:26:20 AO 115/81 (96) SA 10:38:19 Signed By Ronnie Ball MD On 01/24/2020 13:07:13 Ronnie Ball MD
--- NOTE | 2020-01-24 13:09 | EKG12_ITS ---
Test Reason : AM EKG Blood Pressure : / mmHG Vent. Rate : 059 BPM Atrial Rate : 059 BPM P-R Int : 192 ms QRS Dur : 094 ms QT Int : 444 ms P-R-T Axes : 055 008 116 degrees QTc Int : 439 ms Sinus bradycardia Inferior infarct , age undetermined ST & T wave abnormality, consider lateral ischemia Abnormal ECG Confirmed by REYNA MOYER, CINTHYA ([id number]), film and video editor YANET FELDER ([id number]) on 01/25/2020 1:48:26 PM Referred By: Kendra Bonilla Confirmed By:CINTHYA ORELLANA MD
--- NOTE | 2020-01-24 13:32 | CRPHASE1 ---
Patient Communication Former Patient:: Phase II PHII Cardiac Rehab Discussed with Patient:: Yes Guide to Cardiac Rehab Given to Patient:: Yes Cardiac Rehab Facility Choice List Given to Patient:: Yes - Patient chooses [facility] [place] Choice Program [facility] CR PHII:: Communication Given to CR, Refer to [facility] University Tutor:: Ronnie Ball Phase II Cardiac Rehab:: Yes Sessions:: 36 sessions - 3 days/wk, 12 weeks Risk Factors/Lifestyle Hx Hypertension: Yes Hx Diabetes Mellitus Type 2: Yes Hx Metabolic Disorders: Yes Hx Dyslipidemia: Yes Hx Obesity: Yes Family History: Family History (Last Reviewed 11/10/19 @ 09:[address] Sabas Bae MD) Mother Diabetes Hypertension Father Diabetes Hypertension Sister Hypertension Brother Diabetes Hypertension Cancer, Onset Age: 50 CAD (coronary artery disease) Past Cardiac Illness: Valve Disorders, Heart Murmur, Coronary Artery Disease, Previous PCI w/Stent Phase I Education Given On:: [place], Nutrition, Antiplatelet medication, CHF, Smoking cessation, Diabetes - Type II Issues Affecting Care:: None Hospital Course Presenting Symptoms:: CP Cardiac Cath Date:: 01/24/20 Cardiac Rehabilitation Info Cardiac Rehabilitation Program Information: Cardiac Rehabilitation is important for patients like you who are recovering from a heart problem. Cardiac rehabilitation programs are recognized as integral to the continued care of the patient with coronary heart disease. The cardiac rehabilitation program is designed to optimize a patient's physical, psychological, and social functioning. Health palliative care coordinator work in cardiac rehabilitation programs and assist you with getting the treatments you need to get stronger and healthier - like exercise, healthy eating habits, and medications. Cardiac rehabilitation has been show to help people with heart problems live longer and have better life enjoyment than people who do not go to cardiac rehabilitation. Please contact the Cardiac Rehabilitation Program at [facility] at in two weeks if you have not heard from them.
--- NOTE | 2020-01-24 13:37 | CRPH1.INST_ITS ---
General Education CAD and cardiac anatomy and function:: Patient communicates acknowledgment Explanation of diagnoses and procedures:: Patient communicates acknowledgment Sign/Symptoms of [place]:: Patient communicates acknowledgment Antiplatelet therapy: Patient communicates acknowledgment Proper use of NTG-SL: Not instructed Emergency procedures and activation of EMS: Patient communicates acknowledgment Compliance of all prescribed medications: Patient communicates acknowledgment Overweight/Obesity Patient Overweight/Obesity Risk Factors Are:: Obesity - > or = 30 Recommendations Include:: Weight loss of 5-10%, Reduced calorie diet, Exercise 5-7 times/week Overweight/Obesity:: Patient communicates acknowledgment Hypertension Recommendations Include:: BP <130/80 if diabetic, DASH dietary guidelines, Decrease/maintain normal body weight Hypertension:: Patient communicates acknowledgment Heart Disease Patient Heart Disease Risk Factors Are:: Family history of heart disease < 65 years old, Previous cardiac event Heart Disease Response Code:: Patient communicates acknowledgment Diabetes Patient Diabetes Risk Factors Are:: Elevated blood sugars Recommendations Include:: Maintain fasting blood sugars 70-110 md/dL, Maintain HgbA1c of 6% or less, Monitor blood sugar as prescribed, Diabetic dietary guidel tiki, Decrease/maintain body weight Diabetes:: Patient communicates acknowledgment Sedentary Recommendations Include:: Aerobic exercise 5-7 times/week for 20-30 minutes continuously, Benefits of regular exercise, Discussed home walking program, Monitored Outpatient Cardiac Rehab Sedentary Response Code:: Patient communicates acknowledgment Stress Recommendations Include:: Identification of stressors, and assessment of coping skills, Stress management techniques Stress Response Code:: Patient communicates acknowledgment
[2020-01-24] MEDS: 0.9% Normal Saline 1,000 ML 150 ML IV (14:52)
[2020-01-24] MEDS: glipiZIDE 5 MG Tablet PO (19:09)
[2020-01-24] MEDS: Atorvastatin Calcium 80 MG Tablet PO (21:05)
[2020-01-24] MEDS: Carvedilol 6.25 MG Tablet PO (21:05)
[2020-01-25] VITALS (12 sets, daily range): BP systolic 111–164; BP diastolic 55–106; PULSE 55–72; RESP 11–23; TEMP 36.6–36.7; O2SAT 92–96
[2020-01-25 05:26] LABS: Hematocrit 38.6 % (40-54); Hemoglobin 12.7 g/dL (13.0-16.5); Mean Corp Hgb Conc 32.9 g/dL (32-36); Mean Corpuscular Hgb 31.1 pg (27.0-32.0); Mean Corpuscular Volume 94.4 fL (80-94); Mean Platelet Vol. 10.5 fl (6.2-12.0); Platelet Count 148 K/mm3 (150-450); RBC Distribution Width CV 14.2 % (11.6-14.6); RBC Distribution Width SD 48.8 fl (35.1-43.9); Red Blood Count 4.09 M/mm3 (4.6-6.2); White Blood Count 7.5 K/mm3 (4.4-11.0)
[2020-01-25 05:43] LABS: AST(SGOT) 24 U/L (15-37); Alanine Aminotransfer ALT/SGPT 27 U/L (16-61); Albumin, Serum 3.2 g/dL (3.2-5.0); Alkaline Phosphatase 104 U/L (45-117); Anion Gap 9 (5-15); BUN 22 mg/dL (7-18); BUN/Creat Ratio 17.3 RATIO (10-20); Calcium,Total 8.1 mg/dL (8.5-10.1); Chloride 103 mmol/L (98-107); Creatinine, Serum 1.27 mg/dL (0.70-1.30); EST Glomerular Filtration Rate 59 mL/min (>60); Est Glom Filt Rate - Afr Amer 72 mL/min (>60); Estimated Creatinine Clearance 54.12 ml/min; Globulin 3.3 g/dL (2.2-4.2); Glucose 95 mg/dL (74-106); Potassium 4.5 mmol/L (3.5-5.1); Protein, Total 6.5 g/dL (6.4-8.2); Sodium Level 138 mmol/L (136-145)
[2020-01-25] MEDS: Allopurinol 300 MG Tablet PO (08:11)
[2020-01-25] MEDS: Lisinopril 10 MG Tablet PO (08:11)
[2020-01-25] MEDS: glipiZIDE 5 MG Tablet PO (08:11)
[2020-01-25] MEDS: Aspirin E.C. 81 MG Tablet PO (08:11)
[2020-01-25] MEDS: Multivitamins,Therapeutic Tablet 1 TABLET PO (08:11)
[2020-01-25] MEDS: Isosorbide Mononitrate 30 MG Tablet PO (08:11)
[2020-01-25] MEDS: Clopidogrel Bisulfate 75 MG Tablet PO (08:11)
[2020-01-25] MEDS: Furosemide 40 MG Tablet PO (08:11)
[2020-01-25] MEDS: Carvedilol 6.25 MG Tablet PO (08:11)
--- NOTE | 2020-01-25 09:17 | DCINST_ITS ---
Discharge Diet: Low fat/ Low Cholesterol Discharge Activity: Return to Normal Activity May shower in (days): 1 - No tub for 5 days May resume sexual activity in: 1-2 weeks Lifting Restrictions: Do not lift anything greater than 10 pounds for 3 days Call your doctor if your incision/area has: Continuous Slow Oozing, Sudden Increased Bleeding, Increased Pain/ Swelling, Increased Redness, Foul Smelling Discharge, Swelling at the incision site Call your doctor if you observe: Fever of 101 or Higher, Shortness of breath, Chest pain Remove Dressing in (days):: 1 Cleanse incision/area with: Soap & Water Additional Instructions: Please continue with Aspirin and Plavix therapy. You will remain on Plavix for at least one year. If anyone asks you to stop your Plavix, please call the [facility]. We will call you for an office appointment in approximately 1 month. If you have any questions or concerns, please call the [facility]. Allergies/Adverse Reactions: Allergies metformin Adverse Reaction (Verified 11/10/19 07:58) Elevated LDH and anion gap Medications to take at Discharge Allopurinol [Zyloprim] 300 mg PO DAILY 04/10/16 aspirin 81 mg tablet,delayed release 81 mg PO QDAY 04/14/18 multivitamin 1 tab PO DAILY 01/25/19 nitroglycerin 0.4 mg sublingual tablet 0.4 mg SUBLINGUAL Q5-15M PRN 01/25/19 isosorbide mononitrate 30 mg tablet,extended release 24 hr 30 mg PO DAILY #90 tab 03/24/19 lisinopril 10 mg tablet 10 mg PO DAILY #90 tab 03/24/19 atorvastatin 80 mg tablet 80 mg PO QHS #90 tab 03/31/19 furosemide 40 mg tablet 40 mg PO DAILY #90 tab 03/31/19 glipizide 5 mg tablet 5 mg PO BID tab 05/23/19 clopidogrel 75 mg tablet 75 mg PO DAILY #30 tab 07/26/19 carvedilol 6.25 mg tablet 6.25 mg PO BID #180 tab 01/18/20 Primary Care Physician: Boston Figueroa MD [Primary Care Provider] - Test Results: Test results from this visit will be discussed in further detail at your follow- up appointment, if applicable. Please Follow Up With: We will call you for 4 weeks Proposed Discharge Date: 01/25/20 Cardiac Rehabilitation Info Cardiac Rehabilitation Program Information: Cardiac Rehabilitation is important for patients like you who are recovering from a heart problem. Cardiac rehabilitation programs are recognized as integral to the continued care of the patient with coronary heart disease. The cardiac rehabilitation program is designed to optimize a patient's physical, psychological, and social functioning. Health child day care center worker work in cardiac rehabilitation programs and assist you with getting the treatments you need to get stronger and healthier - like exercise, healthy eating habits, and medications. Cardiac rehabilitation has been show to help people with heart problems live longer and have better life enjoyment than people who do not go to cardiac rehabilitation. Please contact the Cardiac Rehabilitation Program at [facility] at in two weeks if you have not heard from them.
--- NOTE | 2020-01-25 10:00 | EKG12_ITS ---
Test Reason : POST PCI Blood Pressure : / mmHG Vent. Rate : 063 BPM Atrial Rate : 063 BPM P-R Int : 184 ms QRS Dur : 092 ms QT Int : 412 ms P-R-T Axes : 067 019 076 degrees QTc Int : 421 ms Normal sinus rhythm Normal ECG When compared with ECG of 20-APR-2019 05:21, ST now depressed in Lateral leads T wave inversion now evident in Lateral leads Confirmed by REYNA MOYER, CINTHYA ([id number]), editor greeting card YANET FELDER ([id number]) on 01/25/2020 1:47:35 PM Referred By: Kendra Bonilla Confirmed By:CINTHYA ORELLANA MD
--- NOTE | 2020-01-25 10:24 | PN.CARD_ITS ---
Subjectve: Patient seen and examined this morning, no 24-hour events, patient feels much better on today's exam. Telemetry showed normal sinus rhythm with occasional episodes of sinus bradycardia while he was sleeping.Right groin is clean/dry/intact without evidence of thrills, bruits or hematoma. EKG shows normal sinus rhythm without acute changes. Hemoglobin and creatinine are within Nominal limits. Objective: Vital Signs Temp Pulse Resp BP Pulse Ox 97.9 F 66 23 H 164/85 H 93 01/25/20 04:00 01/25/20 08:00 01/25/20 08:00 01/25/20 08:00 01/25/20 08:00 Oxygen Delivery Method Room Air Weight: 291 lb 0.163 oz Body Mass Index (BMI) 42.6 Intake and Output for Last 24 Hours 01/23/20 01/24/20 01/25/20 23:59 23:59 23:59 Intake Total 1500 / 1980 720 / 720 Output Total 900 / 1525 1500 / 1500 Balance 600 / 455 -780 / -780 01/25/20 05:15: WBC 7.5, RBC 4.09 L, Hgb 12.7 L, Hct 38.6 L, MCV 94.4 H, MCH 31.1, MCHC 32.9, Plt Count 148 L, MPV 10.5 01/25/20 05:15: Sodium 138, Potassium 4.5, Chloride 103, Carbon Dioxide 26.0, Anion Gap 9, BUN 22 H, Creatinine 1.27, Est GFR (MDRD) Af Amer 72, Est GFR (MDRD) Non-Af 59 L, BUN/Creatinine Ratio 17.3, Glucose 95, Calcium 8.1 L, Total Bilirubin 0.50 Rhythm: EKG: ECHO: Stress Test: Cardiac Cath: PCI: CT Surgery: Holter monitor: EPS: PPM: CXR: Chest CT Scan: Medical Necessity - Tobacco Use Smoking Status: Former smoker Assessment/Plan 1. Coronary artery disease: The patient presents with aggressive in-stent restenosis of his mid RCA and proximal LAD stents. He also had aggressive in- stent restenosis of the ostial stent to the obtuse marginal branch. The patient underwent successful angioplasty and drug-eluting stenting to the mid RCA as well as angioplasty and drug-eluting stenting to the proximal/ostial LAD with an excellent result. In addition he underwent balloon angioplasty only of the ostium of the diagonal branch as well as the ostium of the obtuse marginal branch in-stent restenosis with an excellent result. The patient feels much better today,And denies any chest pain or anginal symptoms. His right groin is clean/dry/intact. I recommended the patient continue lifelong baby aspirin and Plavix. Should the patient have recurrent in-stent restenosis in the future, I would strongly consider multivessel bypass surgery and aortic valve replacement. 2. Hypertension: The patient's antihypertensive medications have been adjusted as outlined in the MRF.To new his Coreg, lisinopril, Imdur and Lasix. 3.Hyperlipidemia: Continue antilipid therapy. 4. Patient be enrolled in cardiac rehab going forward. 5. Bradycardia: The patient most likely has obstructive sleep apnea although he has not been tested. Recommend an outpatient sleep study. 6. Patient may be discharged home and follow-up with Dr. Bae going forward. Inpatient E&M: [id number] [facility] Hosp L2
--- NOTE | 2020-01-25 10:26 | PN.CARD_ITS ---
Subjectve: Patient was seen and evaluated. He denies any chest pain or shortness of breath overnight. He denies any wrist pain or groin pain this morning. Objective: Vital Signs Temp Pulse Resp BP Pulse Ox 97.9 F 66 23 H 164/85 H 93 01/25/20 04:00 01/25/20 08:00 01/25/20 08:00 01/25/20 08:00 01/25/20 08:00 Oxygen Delivery Method Room Air Weight: 291 lb 0.163 oz Body Mass Index (BMI) 42.6 Intake and Output for Last 24 Hours 01/23/20 01/24/20 01/25/20 23:59 23:59 23:59 Intake Total 1500 / 1980 720 / 720 Output Total 900 / 1525 1500 / 1500 Balance 600 / 455 -780 / -780 General: Healthy Appearing, Awake, Alert, Oriented x 3, Cooperative Oral: Moist Mucosa Neck: No JVD Lungs: Diminished Wesley Bases Cardiovascular: Regular Rhythm, Normal S1 Murmur Murmur: Grade 2/6, Early Systolic, LLSB Vascular: No Carotid Bruits Abdomen: Bowel Sounds Present, Soft, Non Tender Extremities: No Cyanosis, No Clubbing, No edema, Normal Capillary Refill, - - Right wrist warm and dry. Right groin soft and dry. Palpable pulses 2+. Neurological: No Focal Motor or Sensory Deficit Psych/Mental Status: Appropriate, Normal Affect 01/25/20 05:15: WBC 7.5, RBC 4.09 L, Hgb 12.7 L, Hct 38.6 L, MCV 94.4 H, MCH 31.1, MCHC 32.9, Plt Count 148 L, MPV 10.5 01/25/20 05:15: Sodium 138, Potassium 4.5, Chloride 103, Carbon Dioxide 26.0, Anion Gap 9, BUN 22 H, Creatinine 1.27, Est GFR (MDRD) Af Amer 72, Est GFR (MDRD) Non-Af 59 L, BUN/Creatinine Ratio 17.3, Glucose 95, Calcium 8.1 L, Total Bilirubin 0.50 Rhythm: EKG: ECHO: Stress Test: Cardiac Cath: PCI: CT Surgery: Holter monitor: EPS: PPM: CXR: Chest CT Scan: Medical Necessity - Tobacco Use Smoking Status: Former smoker Assessment/Plan 1. Atherosclerotic coronary artery disease * Patient is status post SURVEY SUPERVISOR/TAMIA to mid RCA ISR and SURVEY SUPERVISOR/TAMIA to proximal LAD along with PTCA only to ostial diagonal and OM ISR. * There are no overt signs of bleeding. His laboratory results including hemoglobin and creatinine are stable. * He will continue aspirin, atorvastatin, Coreg, Plavix, and lisinopril. * He will be discharged for outpatient follow-up in approximately 4 weeks. He will be contacted by [facility] to schedule. 2. Ischemic cardiomyopathy * His diagnostic heart catheterization on 01/24/2020 showed an LV gram of 55%. He will continue current medical therapy. We will follow on outpatient basis. 3. Bradycardia * His reduced heart rate was while patient was sleeping. His beta-trav would not be adjusted at this time due to intermittent hypertension. He was asked to discuss obstructive sleep apnea with primary care physician or at next office visit. 4. Hypertension * We will continue current medical therapy. 5. Hyperlipidemia * Lipid panel from 11/29/2019 showed cholesterol: 134, HDL: 42, LDL: 54, and triglycerides: 188. He will continue current statin medication. Patient's case was reviewed with Dr. Bae and Dr. Ball. He may be discharged home. Thank you for allowing us to participate in the patients plan of care, if you have any questions please do not hesitate to call. This note was generated using a voice recognition system and there may be incorrect words, spelling or punctuation that were not noted when reviewing the office note prior to saving.
== END 2020-01-25 11:46 | disposition home or self-care (01) ==
LOC: CVS 07:48 → PCU 09:35 → ICU 01-25 07:13
PROVIDERS: Internal Medicine Cardiovascular Disease; PCP Family Medicine; Referring Provider Physician Assistant Medical; Visit Provider Physician Assistant Medical
DX: I25.10 Atherosclerotic heart disease of native coronary artery without angina pectoris (principal); E78.5 Hyperlipidemia, unspecified; I11.0 Hypertensive heart disease with heart failure; I50.43 Acute on chronic combined systolic (congestive) and diastolic (congestive) heart failure; I25.2 Old myocardial infarction; I25.5 Ischemic cardiomyopathy; I35.0 Nonrheumatic aortic (valve) stenosis; I27.21 Secondary pulmonary arterial hypertension; Z95.5 Presence of coronary angioplasty implant and graft; Z79.82 Long term (current) use of aspirin; Z79.02 Long term (current) use of antithrombotics/antiplatelets; Z79.899 Other long term (current) drug therapy; Z87.891 Personal history of nicotine dependence
CPT/HCPCS: 36415; 78452; 80048; 80053; 85027; 85347; 92920; 92928; 92978; 93005; 93017; 93454; 99152; 99153; A9500; C1725; C1760; J7030; J7040; Q9967; A4216; C1753; C1769; C1874; C1887; C1894; C9600; J2785

== ENCOUNTER → 2020-03-01 10:41 | Outpatient (CLI) | payer MEDICARE, SELFPAY ==
[2019-02-27 14:22] VITALS: BMI 42.2
[2020-01-24 12:50] VITALS: BMI 42.6
--- NOTE | 2020-03-01 10:43 | ECHOCS_ITS ---
Reason For Study: Ischemic CMP Procedure This was a 2D Doppler, Color Flow transthoracic echocardiogram. The study was technically difficult. Exam performed in department. Left Ventricle Normal LV size. Mild concentric left ventricular hypertrophy. Left ventricular systolic function is lower limits of normal. The estimated ejection fraction is 53 %. Stage 1 diastolic dysfunction. Mid- anteroseptal : Mildly hypokinetic. The rest of the wall segments are normal. Right Ventricle Normal RV size. Normal systolic function. Atria The left atrium is mildly enlarged. Normal right atrium. Mitral Valve Normal mitral valve. Mild (1+) eccentric mitral valve insufficiency. Tricuspid Valve Normal tricuspid valve. Unable to estimate RV systolic pressure due to insufficient tricuspid regurgitant envelope. Aortic Valve Trisinus/trileaflet aortic valve. Moderate focal aortic valve calcification. Peak aortic valve gradient 37 mmHg. Mean aortic valve gradient 20 mmHg. Mild to moderate aortic stenosis. Calculated aortic valve area (continuity equation) is 1.6 cm2. Mild (1+) aortic valve insufficiency. Pulmonic Valve Normal pulmonic valve. Great Vessels Normal aortic root. The pulmonary artery is normal size. Normal inferior vena cava. Pericardium/Pleural No pericardial effusion. Medication 22 gauge I.V. with prn adaptor inserted into right arm. Diluted definity 1ml given slow IV push to enhance endocardial definition. MMode/2D Measurements & Calculations LVIDd: 5.1 cm IVSd: 1.2 cm LVOT diam: 2.2 cm LVIDs: 3.6 cm LVPWd: 1.4 cm RVDd: 3.8 cm FS: 28.5 % LVOT area: 3.9 cm2 Ao root diam: 3.8 cm LAV(MOD-bp): 70.1 ml LA A4 area: 22.9 cm2 LAV(MOD-bp) Indexed: 29.4 ml/m2 LAV(MOD-sp2): 61.9 ml LAV(MOD-sp4): 76.9 ml LA dimension(2D): 3.4 cm RA A4 area: 13.0 cm2 Doppler Measurements & Calculations MV E max raghavendra: 62.0 cm/sec Lat Peak E' Raghavendra: 9.4 cm/sec Med Peak E' Raghavendra: 4.5 cm/sec MV A max raghavendra: 88.8 cm/sec E/E' lat: 6.6 E/E' med: 13.7 MV E/A: 0.70 Ao V2 max: 302.9 cm/sec AI max raghavendra: 398.7 cm/sec LV V1 max: 123.1 cm/sec Ao max P.8 mmHg AI max P.7 mmHg LV V1 max P.1 mmHg Ao V2 mean: 209.4 cm/sec AI dec slope: 188.0 cm/sec2 LV V1 mean P.4 mmHg Ao mean P.6 mmHg AI P1/2t: 621.1 msec LV V1 mean: 87.2 cm/sec Ao V2 VTI: 64.7 cm LV V1 VTI: 28.1 cm CATHIE(I,D): 1.7 cm2 CATHIE(V,D): 1.6 cm2 SV(LVOT): 110.5 ml PA V2 max: 108.6 cm/sec Interpretation Summary Normal LV size. Mild concentric left ventricular hypertrophy. Left ventricular systolic function is lower limits of normal. The estimated ejection fraction is 53 %. Stage 1 diastolic dysfunction. Mean aortic valve gradient 20 mmHg. Mild to moderate aortic stenosis. Calculated aortic valve area (continuity equation) is 1.6 cm2. Contrast injection was performed. Compared to prior study, there is no significant change. Ordering Physician: Sabas Bae Referring Physician: Boston Figueroa Performed By: Kitty Swan RDCS
== END ==
PROVIDERS: PCP Family Medicine; Referring Provider Internal Medicine Cardiovascular Disease; Visit Provider Internal Medicine Cardiovascular Disease
DX: I11.0 Hypertensive heart disease with heart failure (principal); I50.43 Acute on chronic combined systolic (congestive) and diastolic (congestive) heart failure; I25.10 Atherosclerotic heart disease of native coronary artery without angina pectoris; I25.5 Ischemic cardiomyopathy; I27.21 Secondary pulmonary arterial hypertension; I35.0 Nonrheumatic aortic (valve) stenosis; I25.2 Old myocardial infarction; Z95.5 Presence of coronary angioplasty implant and graft
CPT/HCPCS: 93306; Q9957; A4216; C8929

== ENCOUNTER → 2020-03-07 08:53 | Outpatient (CLI) | payer MEDICARE, SELFPAY ==
[2019-02-27 14:22] VITALS: BMI 42.2
[2020-01-24 12:50] VITALS: BMI 42.6
--- NOTE | 2020-03-07 08:58 | CR.ITP_ITS ---
Diagnosis - General Information Admitting Diagnosis: PCI W/CORONARY STENT PLACEMENT, NSTEMI Secondary Diagnosis: I25.10, I21.4, , I25.5, I35.0, I50.43, I27.21, I10, E78.5 Personal Learning Style:: Audio/Visual, Written Barriers to Learning: Vision Impairment Stage of change r/t lifestyle modifications:: Action Gave educational material for:: Treating Heart Disease, Emotions & Heart Disease, Stress Management & Relaxation, Sleep Disorders & Heart Disease, How The Heart Works, What it means to have Heart Disease, How Coronary Artery Disease is Diagnosed, Heart Procedures, What Heart Medications Do, Risk Factors & Modifications, Living an Active Life, Nutrition - Education/Goals Individual Counseling: Initial Assessment: Abnormal Cholesterol Levels, High Blood Pressure, Overweight/Obesity Cardiac Rehabilitation Goals: 1. Maintain the individual as the primary focus of care. 2. To improve the patient's quality of life. 3. Identification of cardiac risk factors and provide cardiac risk factor management. 4. Enhance the psychosocial status of the patient. 5. Reconditioning enough to allow the patient to resume customary activities. 6. Control symptoms of cardiac disease Personal Goals: Initial Assessment: Improve energy level, Participate in home exercise program, Get back to work, or to resume activities faster, Improve knowledge of cardiac disease, Improve muscle strength and endurance, Improve diet and eating habits (eat healthier), Control risk factors (learn risk factor modification) Scale for measuring improvement of personal goals: Enter appropriate number in Comments. 2 = Unchanged. 3 = Slightly Better. 4 = Moderate Improvement. 5 = Met my Goal - Diagnosis & Disease Process Outcomes/Goals: Pt IDs own risk factors & lifestyle modifications by Session 10, Verbalizes symptoms of angina & response by session 3., Pt independently manages Plan/Interventions: Assist Pt to ID & engage in lifestyle modification to reduce CVD risk, Instruct on individual risk factors, Review symptoms of angina & emergency actions, Review secondary diagnosis & identify educational needs. - Safety Referral to Physical Therapy: No Referral to [facility] Case Management: No Fall Risk Assessed:: Yes Assistive Devices:: None Exercise - Initial Assessment - Visit Date of Eval: 03/07/20 - SCHEDULED TO START CR ON 03/11/2020 Session #:: 0 - INITIAL EVALUATION Mets: Pre-: >5 METS for 30 minutes by discharge - Physician Prescribed Exercise Modalities: Treadmill, Airdyne, NuStep Frequency: 3x/week for 12 weeks [36 sessions] Intensity: 60-80% of age predicted maximum heart rate reserve Current METSs:: 3.0 Target Heart Rate:: 97-126 Resting Blood Pressure: 142/72 EKG Type: NORMAL SINUS RHYTHM - Outcomes & Goals Goals:: Verbalizes understanding of THR, RPE & goal METS by session 6, Documents in home exercise log/reports 30 min aerobic 5 day/wk by DC, Demonstrates accurate pulse taking by DC - Intervention & Plan Exercise Program Goals: Instruct on personal THR & RPE, Instruct on MET level & personal MET goal, Show patient to take own pulse /validate performance until accurate, Instruct on home exercise - Physical Activity Home Exercise Physical Activity - Home Exercise: Safe Exercise, Warm-up, Self-monitoring, Cool-Down, Home Exercise > 30 min Daily, Sitting Time <3 hours/daily - Outcomes & Goals Outcomes/Goals: Demonstrates correct Warm-up/exercise Cool-Down (S3) if = 2.5 METs, Verbalizes symptoms of exercise intolerance by Session 3 (S3), Demonstrate safe equipment use (S3) & follows exercise prescrition (6) - Intervention & Plan Plan/Intervention: Instruct warm-up & cool-down if exercising at > 2 METs, Instruct on symptoms of exercise intolerance & actions to take, Instruct & monitor on saf, Assess intial functional capacity & safety risk Nutrition - Initial Assessment - Program Goals Nutrition Program Goals: LDL <100 optimal. 100 - 129 Near optimal. 130 - 159 Borderline High. 160 - 189 High. Total Cholesterol <200 desirable. 200 - 239 Borderline High. >/= 240 High. HDL < 40 Low >/=60 High. Triglycerides <150 desirable. <199 optimal. VlDL 5 - 40. HgbA1C <7%. BMI <25 Patient has diagnosis of Hyperlipidemia (ICD E78)?: Yes - Visit Date of Assessment:: 03/07/20 Session #:: 0 - INITIAL EVALUATION - Cholesterol/Lipids Triglycerides (mg/dL): 188 - 11/29/2019 Total Cholesterol (mg/dL): 134 LDL Cholesterol (mg/dL): 54 HDL Cholesterol (mg/dL): 42 Determine presence & major risk factors that modify LDL goal: Hypertension or hypertensive medication, Age men > 45 years; women >/= 55 years Outcomes/Goals: Pt IDs own risk factors & lifestyle modifications by Session 10, Verbalizes symptoms of angina & response by session 3. Intervention/Plan: Instruct on personal lipid levels & lipid goals/NCEP guidelines, Instruct on cholesterol - Diabetes (Other Core Measures) Diabetes Type: Not Applicable - Weight Mgt (Other Care) Not Applicable: No Height: 5 ft 9 in Weight:: 283 lb BMI: 41.8 Diagnosis Overweight/Obesity BMI> 30% ICD-10 E66: Yes Diagnosis High BMI/Morbid Obesity BMI> 35% ICD-10 Z68: Yes Outcomes/Goals: Pt sets, maintains & shows weight loss goal & trend during rehab Intervention/Plan: Instruct on ideal BMI & set weight loss goal w/patient, Assist pt to ID & incorporate diet changes for weight loss by S9, Refer to Structured Weight Loss program as appropriate, Encourage goal of using 250- 300dcal per session for weight loss - Healthy Eating Habits Will attend diet classes:: Yes Outcomes/Goals:: Consume diet rich in vegs,fruits,whole grain/high fiber,fish,lean meat, Limit sat/trans fats,cholesterol & added salts & sugars Intervention/Plan:: Assess current eating habits - Education Gave educational materials for:: Healthy eating Medical - Initial Assessment - Visit Date of Eval: 03/07/20 Session #:: 0 - INITIAL EVALUATION - Medication Compliance Preventative Medication(s):: Aspirin, Clopidogrel/P2Y12 inhibit, Statin/lipid, Beta trav H/O mental health issues: depression, anxiety, or addiction?: No Doesn?t believe in the benefits of treatment?: No Believes medications are unnecessary or harmful?: No Has a concern about medication side effects?: No Expresses concern over the cost of medications?: No Outcomes/Goals: Verbalizes medications,desired effect & common side effects @ DC, Pt self-reports following medication regimen, Keeps card in wallet w/medications listed by DC Interventions/plans: Instruct on medication effects & side effects, Review medication list w/patient every two weeks, Instruct importance of taking meds as ordered & assist problem solving - Tobacco Use Tobacco Use: Non-smoker - Hypertension Hypertension Diagnosis:: Hypertension ICD-10 I10 Resting Blood Pressure:: 142/72 [place] [employer] Hypertension Guidelines: [place] [employer] Hypertension Guidelines. Normal BP Less than 120/80. Elevated BP 120/80. Hypertension Stage 1: BP 130-139/80-89. Hypertesnion Stage 2: BP 140 or higher/90 or higher. Hypertension Crisis: BP higher than 180/120 Outcomes/Goals: Able to verbalize/achieve optimal blood pressure <130/80, Incorporates diet changes & exercise for blood pressure control by DC Interventions/plan: Instruct on optimal blood pressure, hypertension & medica tions, Instruct on effects of sodium, alcohol, stress, exercise &hypertension - Tobacco Cessation Referral Smoking Cessation Referral:: No Individual Education/Counseling:: No Education Schedule Given:: Yes Psychosocial - Initial Assess - VIsit Date of Eval: 03/07/20 Session #:: 0 - INITIAL EVALUATION Not Applicable: No History of previous Mental disease:: No Self-reported stressors: Financial, Medical/Health - Target Goals Target Goals: Assess presence or absence of depression. Using a valid screening tool, maximizes coping skills. Positive support system - Psychosocial Test Tool Used:: Emilie Kelly QOL Cardiac, PHQ-9 Questionnaire phq-9 Severity: Severity. 1-4 Minimal Depression. 5-9 Mild Depression. 10-14 Moderate Depression. 15-19 Moderately Sever Depression. 20-27 Severe Depression. Rule: - Referral to Behavioral Health PS - Interventions: Yes Attend Stress Management Classes, No Referral to [facility] - Outcomes/Goals: See list Psychosocial Outcomes/Goals:: ID's personal stressors & 2 strategies to manage stress by discharge - Intervention/Plan: See List Interventions/Plan:: Assess stressors,coping strategies & signs of derpression on admission, Instruct/assist pt to develop coping & personal stress Mgt strategies, Instruct patient to recognize signs & symptoms of depression, Instruct patient to recog Patient Health Questionnaire Initial Assessment 1. Little interest or pleasure in doing things: Several days 2. Feeling down, depressed, or hopeless: Not at all 3. Trouble falling or staying asleep, or sleeping too much: Not at all 4. Feeling tired or having little energy: Several days 5. Poor appetite or overeating: Several days 6. Feeling bad about yourself -- or that you are a failure or have let yourself or your family down: Not at all 7. Trouble concentrating on things, such as reading the newspaper or watching television: Not at all 8. Moving or speaking so slowly that other people could have noticed. Or the opposite - being so fidgety or restless that you have been moving around a lot more than usual: Not at all 9. Thoughts that you would be better off , or of hurting yourself in some way: Not at all How difficult have these problems made it for you to do your work, take care of things at home, or get along with other people?: Not difficult at all Total Score: 3 STEFFEN-Q SV Test - Statements CAD is a disease of the arteries in the heart: False Examples of risk factors for heart disease: True Angina is chest pain or discomfort: True The benefits of resistance training include: True Eating more meat and dairy products: False Anti-platelet medications such as aspirin are important: True The only effective way to manage stress: False An exercise warm-up slowly increases heart rate: True Prepared, processed foods usually have high sodium: True Depression is common after a heart attack: True The statin medications lower cholesterol: True To control blood pressure, lower the amount of sodium: True If someone gets chest discomfort during walking: False Transfats are partially hydrogenated vegetable oils: True Sleep apnea that is not treated increases the risk: False To control cholesterol, one should become a vegetarian: False Someone knows if he/she is exercising at the right level: True Diabetes cannot be prevented with exercise & health eating: False Stress is a large risk for heart attack: True A diet that can help lower blood pressure is rich in: True - Total Score Total Correct Responses: 20 Self-Efficacy Initial Assessment We would like to know how confident you are in doing certain activities. Please select your confidence level for:: Select your confidence level for the following using the scale 1-10 where 1 is not at all confident and 10 is totally confident. Your score is the average of all 6 responses. Fatigue: How confident are you that you can keep the fatigue caused by your disease from interfering with the things you want to do? Select Number: 8 Physical Discomfort or Pain: How confident are you that you can keep the physical discomfort or pain of your disease from interfering with the things you want to do? Select Number: 8 Emotional Distress: How confident are you that you can keep the emotional distress caused by your disease from interfering with the things you want to do? Select Number: 8 Other Symptoms or Health Problems: How confident are you that you can keep other symptoms or health problems from interfering with the things you want to do? Select Number: 8 Different Tasks and Activities: How confident are you that you can do the different tasks and activities needed to manage your health condition so as to reduce your need to see a doctor? Select Number: 8 Medication: How confident are you that you can do things other than just taking medication to reduce how much your illness affects your everyday life? Select Number: 8 Total Score:: 8 Nutrition Survey - Nutrition Survey Instructions Scoring Instructions: Scoring is as follows: Yes = 1 points. No = 0 point. Patient score that is >/=12 is considered to be at potential nutritional risk and could benefit from a referral to a registered dietitian. - Nutrition Survey Initial Have you lost >10 lbs over the past 2 months without trying?: No Are you following a special diet at home for diabetes, low fat, or low salt?: Yes Are you interested in meeting with a dietitian for help understanding your diet?: No Do you eat less than 3 meals a day?: Yes Do you eat fatty meats (yarbrough, sausage, ribs, etc), fried foods, desserts, large amounts of salad dressings, margarine, butter, or cheese most days?: Yes Do you have food allergies? [Enter types in comment field]: No Do you eat in restaurants more than 3 times a week?: No Do you season food with salt, seasoning salt, or garlic salt?: No Do you used canned, boxed, frozen meals, or soups, seasoning packets?: No Total Score:: 3
--- NOTE | 2020-03-07 08:59 | PCM.CR.HP2 ---
CR - History & Physical - General Arrival date:: 03/07/20 Arrival time:: 08:59 Date of Referral:: 03/04/20 Date of CR Evaluation:: 03/07/20 Referring Physician: DR. SABAS ORELLANA Primary Diagnosis: S/P PTCA PCI W/CORONARY STENT PLACEMENT - History of Present Cardiac Event Onset Date: Enter Onset Date of cardiac illnesses in Comment field below Current stable Angina Pectoris:: No Acute Myocardial Infarction within 12 months:: Yes - NSTEMI Coronary Artery Bypass Graft:: No Heart valve replacement or repair:: No PTCA or coronary stenting:: Yes - 03/04/2020 Heart or Heart-Lung Transplant:: No Heart Failure EF <35%:: No Type of Symptoms:: CHEST PRESSURE, FATIGUE Interventions with present event:: HEART CATH AND PTCA REOPENED CORONARY ARTERY AND RESTENTED Were there any complications?: NO - Medications Home Medications: Ambulatory Orders Medication Instructions Recorded Allopurinol [Zyloprim] 300 mg PO DAILY 04/10/16 aspirin 81 mg tablet,delayed 81 mg PO QDAY 04/14/18 release multivitamin 1 tab PO DAILY 01/25/19 nitroglycerin 0.4 mg sublingual 0.4 mg SUBLINGUAL Q5-15M PRN 01/25/19 tablet isosorbide mononitrate 30 mg 30 mg PO DAILY #90 tab 03/24/19 tablet,extended release 24 hr lisinopril 10 mg tablet 10 mg PO DAILY #90 tab 03/24/19 atorvastatin 80 mg tablet 80 mg PO QHS #90 tab 03/31/19 furosemide 40 mg tablet 40 mg PO DAILY #90 tab 03/31/19 glipizide 5 mg tablet 5 mg PO BID tab 05/23/19 clopidogrel 75 mg tablet 75 mg PO DAILY #30 tab 07/26/19 carvedilol 6.25 mg tablet 6.25 mg PO BID #180 tab 01/18/20 - Allergies Allergies/Adverse Reactions: Allergies metformin Adverse Reaction (Verified 11/10/19 07:58) Elevated LDH and anion gap - Sleep Disorder Evaluation Hx of Sleep Apnea: No Do you snore loudly (louder than talking or can be heard through closed doors)?: No Do you often feel tired/ fatigued/ sleepy during daytime?: Yes Has anyone observed you stop breathing during sleep?: No History of Hypertension (for STOP score): Yes STOP Results: Positive Advanced Directives - Advanced Directives Power of Rn Patient Care: Yes Living Will: Yes Advance Directives Information Provided: Yes Advance Directives on File: Yes DNR Order?:: No - MOLST See MOLST form: No Past Medical History - Past Medical Illness Medical History: Past Medical History (Last Reviewed 11/10/19 @ 09:[address] 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) I50.43 Secondary pulmonary arterial hypertension (Chronic) I27.21 Essential (primary) hypertension (Chronic) I10 Hyperlipidemia (Chronic) E78.5 Bilateral lower extremity edema R60.0 Dermatitis L30.9 Elevated liver enzymes R74.8 Fatty liver K76.0 Gout M10.9 Morbid obesity E66.01 Morbid obesity with BMI of 40.0-44.9, adult E66.01, Z68.41 Obstructive sleep apnea G47.33 Osteoarthritis M19.90 Type 2 diabetes mellitus E11.9 Diastolic dysfunction (Inactive) I51.9 - Past Surgical History Surgical History: Past Surgical History (Last Updated 01/27/20 @ 13:47 by Yelena Graff) History of coronary artery stent placement (Resolved) Onset Date: 01/24/20 Z95.5 YDT-DLK-Saim RPLB w/ 2.25 x 12 mm Promus Synergy Stent, TAMIA-Distal RCA w/ 2.5 x 16 mm Promus Synergy Stent, and TAMIA-Mid RCA w/ 2.5 x 32 mm Promus Synergy Stent 02/27/19; PTCA/TAMIA to proximal/ostial OM#2 with a 2.25 x 20 Promus Synergy stent, PTCA/TAMIA mid LCX with a 2.25 x 20 Promus Synergy, followed immediately upstream with a 2.25 x 16 Promus, PTCA/TAMIA proximal LAD with a 2.25 x 24 Promus Synergy, followed immediately downstream with a 2.25 x 12 Promus Synergy on 04/19/2019; TAMIA of mid RCA ISR w/ 3.0 x 24 mm Promus Synergy Stent, TAMIA prox. LAD w/a 2.5 x 24 mm Promus Syergy Stent, POBA-ostial OM ISR and Ostaial D1 01/24/2020 History of appendectomy Z90.49 History of herniorrhaphy Z98.890, Z87.19 History of left heart catheterization Onset Date: 12/29/18 Z98.890 LAD-90% stenosis, LCx 60% stenosis, RCA 90% stenosis, EF 40%, mod 12/29/18 History of tonsillectomy Z90.89 History of total knee replacement (TKR) Z96.659 Surgical History: - - T+A, Appendectomy, Inguinal Hernia repair, R TKR, L Knee Surgery - Family History Summary Family History: Family History (Last Reviewed 11/10/19 @ 09:[address] Sabas Orellana MD) Mother , Age 80 Diabetes Hypertension Father , Age 55, coma Diabetes Hypertension Sister Hypertension Brother Diabetes Hypertension Cancer, Onset Age: 50 prostate cancer CAD (coronary artery disease) Social History - Smoking History Smoking Status: Former smoker Hx Tobacco Use: No Hx Smoking Exposure: No - Alcohol Use Alcohol Usage: No - Substance Abuse Hx Substance Use: No - Occupation Occupation (List type of work in comments):: Retired - Hobbies, Recreation, Social Activities Hobbies: Other Recreational Activities: I am able to engage in most, but not all activities Social Environment - Status Marital Status: Single - Current Living Arrangements Living Environment:: Alone - Children How many children do you have?: 2 - SON AREA AND DAUGHTER IN [place] Do any of your children live nearby?: Yes - Safety Do you feel safe in your surroundings?: Yes - Assistance Do you need any assistance at home?: NO Review of Systems - Review of Systems Hints: Right click = Denies (Slash). Left click = Reports ([place]) Review of Present Symptoms: Denies: Shortness of Breath at Rest, Shortness of Breath with Exertion, Angina, Dizziness/Lightheadedness, Fatigue - Pain Is Patient Pain Free?: Yes Pain Location: lower extremity - LEFT KNEE IS BAD, DUE TO RECENT STENT PLACEMENTS HAVE HAD TO DELAY SURGERY ON THE LEFT KNEE. PREVIOUSLY HAD RIGHT KNEE DONE IN 2006. Pain Level: 01/08 Risk Factor Assessment - Chief Complaint Chief Complaint: PATIENT PRESENTST O CR TODAY FOLLOWING RECENT PCI INTERVENTION. PATIENT HS PREVIOUSLY DONE CR IN THE PAST AND DUE TO HIS INSURANCE CO-PAY REQUIREMENT IS INTERESTED IN A TRUNCATED PROGRAM OF 4-6 WEEKS VERSUS FULL 36 SESSIONS. - Vital Signs Temperature: 97.8 F Respiratory Rate: 14 Pulse Ox: 94 Blood Pressure: 142/72 Nailbeds:: PINK - Pulse Pulse Rate: 66 Pulse Rhythm: Regular - Hypertension Blood Pressure Sitting - Left Arm: 142/72 - Blood Cholesterol/Lipids Total Cholesterol (mg/dL) Goal = less than 200 mg/dL: 134 - 11/29/2019 HDL Cholesterol (mg/dL) Goal = less than 40 mg/dL: 42 LDL Cholesterol (mg/dL) Goal = less than 70 mg/dL: 54 Triglycerides (mg/dL) Goal = less than 150 mg/dL: 188 - Diabetes Nutrition Referral for Diabetes: No - Obesity Height: 5 ft 9 in Weight:: 283 lb Weight in Pounds: 283.0 lbs Weight Source: Standing Scale Body Mass Index (BMI): 41.8 Realistic Weight Goal (Loss of 1-2 lbs/week): 271 Nutritional Referral for Obesity: Yes - Physical Inactivity Physical Inactivity: None - Risk Stratification Risk Guidelines: Lowest Risk: Risk Factor for Smoking, Risk Factor for Dyslipidemia, Risk Factor for Depression, Moderate Risk: Risk Factor for Hypertension, Risk Factor for Sedentary Lifestyle, Highest Risk: Risk Factor for Obesity - For Smoking Smoking Risk Guidelines: Smoking Low Risk: None or quit greater than 6 months ago. Smoking Moderate Risk: Smoker or quit 6 months or less ago. Smoking High Risk: Smoker - For Dyslipidemia Dyslipidemia Risk Guidelines: Low Risk: Moderate Risk: High Risk: 15-25% fat 25.1-29% fat >/= 30% fat. <7% sat fat 7-9% sat fat >9% sat fat. <150 mg chol 150-299 mg chol >/= 300 mg chol. LDL <100 LDL 100-129 LDL >/= 130. Chol/HDL ratio <5.0 Chol/HDL ratio 5.0-6.0 Chol/HDL ratio >6.0. Triglycerides <100 Triglycerides 100-149 Triglycerides >/= 150 - For Diabetes Mellitus Diabetes Risk Guidelines: Diabetes Low Risk: HgA1c <6.5% and/or FBG <120. Diabetes Moderate Risk: HgA1c 6.6-7.9% and/or FBG 120-180. Diabetes High Risk: HgA1c >/= 8% and/or FBG >180 - For Obesity/Overweight Obesity/Overweight Risk Guidelines: Obesity Low Risk: BMI <25.0. Obesity Moderate Risk: BMI 25-29.9. Obesity High Risk: BMI >/= 30.0 - For Hypertension Hypertension Risk Guidelines: Hypertension Low Risk: Systolic <120 and Diastolic <80. Hypertension Moderate Risk: Systolic 120-139 and Diastolic 80-89. Hypertension High Risk: Systolic >/= 140 and Diastolic >/= 90 - For Sedentary Lifestyle Sedentary Lifestyle Risk Guidelines: Sedentary Lifestyle Low Risk: >/= 1,500 kcal/week. Sedentary Lifestyle Moderate Risk: 700-1,499 kcal/week. Sedentary Lifestyle High Risk: < 700 kcal/week - For Depression Depression Risk Guidelines: Depression Low Risk: Not clinically depressed. Depression Moderate Risk: Mildly depressed. Depression High Risk: Clinically depressed - Family History Family History: Family History (Last Reviewed 11/10/19 @ 09:[address] Sabas Orellana MD) Mother Diabetes Hypertension Father Diabetes Hypertension Sister Hypertension Brother Diabetes Hypertension Cancer, Onset Age: 50 CAD (coronary artery disease) Motivation - Motivation to Participate On a scale of 1 to 10, how prepared are you to commit to attending program?: 8 What do you see as barriers to successfully being able to complete the program?: LEFT KNEE, LIMITED ABILITY TO WALK WITH PAIN IN LEFT KNEE. What do you see as the benefits of succesfully completing the program? In other words, what do you hope to get out of participating in the program?: SEE HOW HEART IMPROVES, IMPROVE STREGTH TO BE ABLE TO RETURN TO THE [place] Are there issues you are dealing with that will interfere with completing the program?: LEFT KNEE IS BAD NEEDS REPLACED, HAD RIGHT KNEE REPLACED IN 2006. Do you have a spouse or signficant other, family or friends who will help support you to complete the program?: YES.
[2020-03-07 09:34] VITALS: BP 142/72; PULSE 66; RESP 14; TEMP 36.6; O2SAT 94; BMI 41.8
[2020-03-07 09:49] VITALS: BP 142/72; BMI 41.8
== END ==
PROVIDERS: PCP Family Medicine; Referring Provider Internal Medicine Cardiovascular Disease; Visit Provider Internal Medicine Cardiovascular Disease
DX: I11.0 Hypertensive heart disease with heart failure (principal); I50.43 Acute on chronic combined systolic (congestive) and diastolic (congestive) heart failure; E11.9 Type 2 diabetes mellitus without complications; E78.5 Hyperlipidemia, unspecified

== ENCOUNTER 2020-03-29 11:30 | Outpatient (RCR) | payer MEDICARE, SELFPAY ==
[2020-03-07 09:34] VITALS: BMI 41.8
[2020-03-07 09:49] VITALS: BMI 41.8
== END 2020-03-31 23:59 ==
LOC: CR 11:30
PROVIDERS: PCP Family Medicine; Referring Provider Internal Medicine Cardiovascular Disease; Visit Provider Internal Medicine Cardiovascular Disease
DX: I25.10 Atherosclerotic heart disease of native coronary artery without angina pectoris (principal); I21.4 Non-ST elevation (NSTEMI) myocardial infarction; Z95.5 Presence of coronary angioplasty implant and graft; I25.5 Ischemic cardiomyopathy; I35.0 Nonrheumatic aortic (valve) stenosis; I11.0 Hypertensive heart disease with heart failure; I50.43 Acute on chronic combined systolic (congestive) and diastolic (congestive) heart failure; I27.21 Secondary pulmonary arterial hypertension; E78.5 Hyperlipidemia, unspecified
CPT/HCPCS: 93798

== ENCOUNTER 2020-04-08 11:30 | Outpatient (RCR) | payer MEDICARE, SELFPAY ==
[2020-03-07 09:34] VITALS: BMI 41.8
[2020-03-07 09:49] VITALS: BMI 41.8
== END 2020-04-30 23:59 ==
LOC: CR 11:30
PROVIDERS: PCP Family Medicine; Referring Provider Internal Medicine Cardiovascular Disease; Visit Provider Internal Medicine Cardiovascular Disease
DX: I25.10 Atherosclerotic heart disease of native coronary artery without angina pectoris (principal); Z95.5 Presence of coronary angioplasty implant and graft; I21.4 Non-ST elevation (NSTEMI) myocardial infarction; I25.5 Ischemic cardiomyopathy; I35.0 Nonrheumatic aortic (valve) stenosis; I11.0 Hypertensive heart disease with heart failure; I50.43 Acute on chronic combined systolic (congestive) and diastolic (congestive) heart failure; I27.21 Secondary pulmonary arterial hypertension; E78.5 Hyperlipidemia, unspecified
CPT/HCPCS: 93798

== ENCOUNTER 2020-09-01 14:14 | Emergency (ER) | payer MEDICARE, SELFPAY ==
[2020-03-07 09:49] VITALS: BMI 41.8
[2020-06-18 13:27] VITALS: BMI 42.2
[2020-09-01 14:16] VITALS: BP 141/60; PULSE 83; RESP 17; TEMP 36.6; O2SAT 95; BMI 41.5
[2020-09-01 15:09] VITALS: BP 141/60; PULSE 83; RESP 17; TEMP 36.6; O2SAT 95
--- NOTE | 2020-09-01 15:13 | EKG12_ITS ---
Test Reason : Blood Pressure : / mmHG Vent. Rate : 077 BPM Atrial Rate : 077 BPM P-R Int : 166 ms QRS Dur : 084 ms QT Int : 370 ms P-R-T Axes : 043 011 051 degrees QTc Int : 418 ms Normal sinus rhythm Inferior infarct , age undetermined Abnormal ECG Confirmed by REYNA MOYER, CINTHYA ([id number]), technical writer and editor EDYTA NEIL ([id number]) on 09/03/2020 11:28:50 AM Referred By: BRINA Confirmed By:CINTHYA ORELLANA MD
--- NOTE | 2020-09-01 15:13 | RAD_ITS ---
STUDY: X-RAY CHEST REASON FOR EXAM: Male, 70 years old. COUGH, INCREASED SHORTNESS OF BREATH, FATIGUE, SORE THROAT TECHNIQUE: AP COMPARISON: 02/24/2019 FINDINGS: There are patchy groundglass opacities of the central lung bases extending to the simi. There is no demonstrated pleural abnormality. Normal size heart. Normal mediastinum and simi. Normal visualized pulmonary arteries. There is atherosclerotic tortuosity of the aortic arch and descending thoracic aorta. Normal visualized thoracic spine. Normal visualized ribs, clavicles, and shoulders. There is no demonstrated abnormality of the visualized soft tissue structures of the upper abdomen. RAD/Chest 1 View (Portable) IMPRESSION: Patchy bilateral lower lobe groundglass opacities could represent pneumonia or edema. No sizable effusion. Electronically Signed: Leo Sharma MD ([place]) at 15:52 EST , Service support ,
[2020-09-01 15:31] VITALS: O2SAT 94
[2020-09-01 15:32] LABS: Absolute Lymphocyte Count 0.62 X10^3/uL (0.83-4.51); Absolute Neutrophil Count 3.8 X10^3/uL (2.0-7.7); Basophil# 0.01 X10^3/uL; Basophil% 0.2 % (0-1); Eosinophil# 0.02 X10^3/uL; Eosinophils% 0.4 % (0-5); Hematocrit 40.7 % (40-54); Lymphocyte # 0.62 X10^3/ul (4.0); Lymphocyte % 12.9 % (19-41); Mean Corp Hgb Conc 31.9 g/dL (32-36); Mean Corpuscular Hgb 30.6 pg (27.0-32.0); Mean Corpuscular Volume 95.8 fL (80-94); Mean Platelet Vol. 10.8 fl (6.2-12.0); Monocyte# 0.38 X10^3/uL; Monocyte% 7.9 % (0-10); NRBC Flagged by Analyzer 0 % (0-5); Neutrophil # 3.77 X10^3/uL (2.7-7.7); Neutrophil % 78.4 % (47-70); Platelet Count 141 K/mm3 (150-450); RBC Distribution Width SD 49.1 fl (35.1-43.9); Red Blood Count 4.25 M/mm3 (4.6-6.2); White Blood Count 4.8 K/mm3 (4.4-11.0)
[2020-09-01 15:47] LABS: ALB/GLOB Ratio 0.8 RATIO (0.9-2.4); AST(SGOT) 20 U/L (15-37); Alanine Aminotransfer ALT/SGPT 26 U/L (16-61); Albumin, Serum 3.1 g/dL (3.2-5.0); Alkaline Phosphatase 89 U/L (45-117); Anion Gap 8 (5-15); BUN 27 mg/dL (7-18); BUN/Creat Ratio 15.9 RATIO (10-20); CPK Total, Creatine Kinase 61 U/L (39-308); Calcium,Total 8.4 mg/dL (8.5-10.1); Chloride 107 mmol/L (98-107); EST Glomerular Filtration Rate 42 mL/min (>60); Est Glom Filt Rate - Afr Amer 51 mL/min (>60); Estimated Creatinine Clearance 39.86 ml/min; Glucose 187 mg/dL (74-106); Lactic Acid 1.9 mmol/L (0.4-1.9); Potassium 4.1 mmol/L (3.5-5.1); Protein, Total 7.1 g/dL (6.4-8.2); Sodium Level 138 mmol/L (136-145)
--- NOTE | 2020-09-01 16:42 | ED.DCSUM_ITS ---
History of Present Illness Chief Complaint: Shortness of Breath Informant: Patient Narrative: She is a 70-year-old male with history of COPD and coronary artery disease status post 11 stents, presenting with 12 days of weakness, dry mouth, runny nose, myalgias, change in taste, fatigue and shortness of breath. Patient denies any associated chest pain, headache, nausea, vomiting or change in bowel habits. He notes his bowel movements are hard. Yesterday or the day before he also had an episode of lightheadedness and felt he might pass out but did not. He states he had a mild cough is productive of reddish/dark sputum. He denies any sick contacts. He denies any known exposure to coronavirus. No other complaints at this time. Past Medical History - Allergies and Home Meds Allergies/Adverse Reactions: Allergies metformin Adverse Reaction (Verified 09/01/20 14:15) Elevated LDH and anion gap Primary Care Physician: Boston Figueroa MD [Primary Care Provider] - Surgical History: - - T+A, Appendectomy, Inguinal Hernia repair, R TKR, L Knee Surgery Smoking Status: Former smoker - Family History Maternal Family History: Family History (Last Reviewed 06/18/20 @ 13:[address] Sabas Bae MD) Mother Diabetes Hypertension Father Diabetes Hypertension Sister Hypertension Brother Diabetes Hypertension Cancer, Onset Age: 50 CAD (coronary artery disease) Family History: Reports: No pertinent history Paternal Family History: Family History (Last Reviewed 06/18/20 @ 13:[address] Sabas Bae MD) Mother Diabetes Hypertension Father Diabetes Hypertension Sister Hypertension Brother Diabetes Hypertension Cancer, Onset Age: 50 CAD (coronary artery disease) Family History: Reports: No pertinent history Review of Systems General: Reports: Chills, Malaise. Denies: Fever, Sweats ENT: Reports: Rhinorrhea, Sore throat. Denies: Bilateral ear pain Cardiovascular: Denies: Chest pain, Palpitations Respiratory: Reports: Dyspnea, Cough, Sputum. Denies: Dyspnea on exertion Gastrointestinal: Reports: Constipation. Denies: Abdominal pain, Nausea, Vomiting, Diarrhea, Melena, Hematochezia Genitourinary: Denies: Dysuria, Hematuria, Frequency Musculoskeletal: Reports: Myalgias Skin: Denies: Rash Neurological: Denies: Headache, Weakness, Numbness Physical Exam Vital Signs/Narrative: Vital Signs Temp Pulse Resp BP Pulse Ox 09/01/20 15:09 97.8 F 83 17 141/60 H 95 09/01/20 14:16 97.8 F 83 17 141/60 H 95 Inital Vital Signs reviewed: Yes General: Well nourished, Well developed Head: Normocephalic, Atraumatic Eyes: Perrl, EOMI ENT: TM's clear, Dry mucous membranes. Negative for: Rhinorrhea, Sinus tenderness Neck: Supple, Nontender, No lymphadenopathy, No JVD Cardiovascular: Regular rate, Regular rhythm, No murmurs Respiratory: No distress, No Stridor, Decreased Air Movement, - - Bibasilar crackles present, right greater than left Abdomen: Soft, Nontender, Nondistended, Normal bowel sounds. Negative for: Guarding, Rebound tenderness Back: Nontender, Normal Inspection. Negative for: CVA tenderness Extremities: Nontender, No edema Skin: Normal color, No rash Neurological: Alert, Oriented x3, Cranial nerves II-XII grossly intact, Normal Strength, Normal Sensation Psychological: Normal affect Diagnostic/Tx/Re-eval Chest X-Ray - ED: 1 View, Read by ED Physician, Read by Radiologist, - - Patchy bilateral lower lobe groundglass opacities Clinical Impression(s) from Imaging Studies Chest X-Ray 09/01/20 15:13 IMPRESSION: Patchy bilateral lower lobe groundglass opacities could represent pneumonia or edema. No sizable effusion. Electronically Signed: Leo Sharma MD ([place]) at 15:52 EST , Service support , Laboratory Data 09/01/20 09/01/20 09/01/20 15:05 15:05 15:05 WBC 4.8 RBC 4.25 L Hgb 13.0 Hct 40.7 MCV 95.8 H MCH 30.6 MCHC 31.9 L RDW Std Deviation 49.1 H RDW Coeff of Raphael 14.0 Plt Count 141 L MPV 10.8 Immature Gran % (Auto) 0.200 Neut % (Auto) 78.4 H Lymph % (Auto) 12.9 L Franklin % (Auto) 7.9 Eos % (Auto) 0.4 Baso % (Auto) 0.2 Absolute Neuts (auto) 3.8 Absolute Lymphs (auto) 0.62 L Nucleated RBC % 0 Sodium 138 Potassium 4.1 Chloride 107 Carbon Dioxide 23.0 Anion Gap 8 BUN 27 H Creatinine 1.70 H Estim Creat Clear Calc 39.86 Est GFR (MDRD) Af Amer 51 L Est GFR (MDRD) Non-Af 42 L BUN/Creatinine Ratio 15.9 Glucose 187 H Lactic Acid 1.9 Calcium 8.4 L Total Bilirubin 0.60 AST 20 ALT 26 Alkaline Phosphatase 89 Total Creatine Kinase 61 Troponin I < 0.015 B-Natriuretic Peptide Total Protein 7.1 Albumin 3.1 L Globulin 4.0 Albumin/Globulin Ratio 0.8 L Procalcitonin 09/01/20 09/01/20 15:05 15:37 WBC RBC Hgb Hct MCV MCH MCHC RDW Std Deviation RDW Coeff of Raphael Plt Count MPV Immature Gran % (Auto) Neut % (Auto) Lymph % (Auto) Franklin % (Auto) Eos % (Auto) Baso % (Auto) Absolute Neuts (auto) Absolute Lymphs (auto) Nucleated RBC % Sodium Potassium Chloride Carbon Dioxide Anion Gap BUN Creatinine Estim Creat Clear Calc Est GFR (MDRD) Af Amer Est GFR (MDRD) Non-Af BUN/Creatinine Ratio Glucose Lactic Acid Calcium Total Bilirubin AST ALT Alkaline Phosphatase Total Creatine Kinase Troponin I B-Natriuretic Peptide 282.5 H Total Protein Albumin Globulin Albumin/Globulin Ratio Procalcitonin 0.13 H - Rhythm Strip Rhythm Strip: Sinus Rhythm Rate: 77 Ectopy: None - EKG Initial EKG Interpretation: Sinus Rhythm, - - Sinus rhythm at a rate of 77 Normal axis Normal intervals Normal ST segments - Medical Decision Making Patient is evaluated for approximately 12 days of flulike symptoms. He has some associated shortness of breath or wheeze not hypoxic. He does have a history of COPD and coronary artery disease but denies any history of CHF. Clinically he appears more dehydrated and does not appear to have CHF. Given the current pandemic his presentation is most consistent with COVID-19 infection. Chest x- ray shows questionable bilateral groundglass opacities versus pulmonary vascular congestion. I feel that this is more consistent with pneumonitis. Patient does have a mildly elevated proBNP but I do not have a comparison. His procalcitonin is only mildly elevated which I think is more consistent with a viral infection. His white blood cell count is normal. Patient's BMP is remarkable for very mildly elevated creatinine 1.7. He does not have an YADIRA. He is given IV fluids in the ER. His lactate is normal. His troponin is negative. Patient is ambulated and is not hypoxic. He is discharged home with strict return precautions. Covid test is pending. He is started on a Z-Reinaldo and given first dose of azithromycin in the ER for questionable pneumonia however I do suspect it is more viral in nature. ED Disposition - Plan for ED Patient: Disposition: Home or Assisted Living Diagnosis: Suspected COVID-19 virus infection, Viral syndrome Instructions: ED PNEUMONITIS Adult Prescriptions: Azithromycin 250 mg PO DAILY #4 tab Transmission Status: Received by [id number] Referrals: Boston Figueroa MD [Primary Care Provider] - Additional Instructions: I suspect that you have COVID-19 infection causing your symptoms. There is a chance that you might get worse before you get better and you might need to return the emergency room if you have worsening shortness of breath or difficulty breathing. Drink plenty of fluids to help prevent dehydration. Alternate Tylenol and ibuprofen as needed for fever/aches and pains.
[2020-09-01 16:50] LABS: BNP,B-Type NATRIURETIC PEPTIDE 282.5 pg/mL (0-100)
[2020-09-01 16:58] LABS: Procalcitonin 0.13 ng/mL (0.00-0.09)
[2020-09-01 17:14] VITALS: BP 130/70; PULSE 75; RESP 18; O2SAT 94
[2020-09-01] MEDS: Azithromycin 250 MG Tablet 500 MG PO (17:37)
[2020-09-01 17:46] VITALS: BP 130/70; PULSE 77; RESP 17; TEMP 36.9; O2SAT 94
== END 2020-09-01 17:48 | disposition home or self-care (01) ==
PROVIDERS: Emergency Provider Emergency Medicine; PCP Family Medicine
DX: Z20.828 Contact with and (suspected) exposure to other viral communicable diseases (principal); B34.9 Viral infection, unspecified; I25.10 Atherosclerotic heart disease of native coronary artery without angina pectoris; Z87.891 Personal history of nicotine dependence; Z79.82 Long term (current) use of aspirin
CPT/HCPCS: 71045; 80053; 82550; 83605; 83880; 84145; 84484; 85025; 87040; 87635; 93005; 96360; 96361; 99285; J7040; U0003

== ENCOUNTER 2020-11-05 14:28 | Emergency (ER) | payer MEDICARE, SELFPAY ==
[2020-03-07 09:49] VITALS: BMI 41.8
[2020-11-05 14:29] VITALS: BP 144/66; PULSE 75; RESP 18; TEMP 36.6; O2SAT 94; BMI 41.9
--- NOTE | 2020-11-05 14:48 | CT_ITS ---
STUDY: CT ABDOMEN AND PELVIS WITHOUT CONTRAST REASON FOR EXAM: Male, 70 years old. Right flank pain. History of kidney stones. History of right inguinal hernia repair. RADIATION DOSAGE (If Supplied By Facility): CTDIvol = ( 23.26 ) mGy, DLP = ( 1417.77 ) mGycm TECHNIQUE: Transaxial images were obtained from the dome of the diaphragm to the symphysis pubis without oral contrast, and without intravenous contrast. Sagittal and coronal images were reconstructed. Individualized dose optimization techniques were used for this CT. COMPARISON: 09/27/2012. FINDINGS: The visualized lung bases are unremarkable. The visualized portions of the heart are within normal limits. Normal liver. Gallstones in a mildly distended gallbladder. There is no wall thickening or inflammatory change. There is no biliary ductal dilatation. Normal spleen. Normal pancreas. Normal bilateral adrenal glands. The right kidney is malrotated. There is normal cortical thickness. There is mild stranding of the perinephric fat. There is no renal mass. Small exophytic cyst off the upper pole which appears decreased in size from the prior study. There is no hydronephrosis. Normal right ureter. The left kidney is of normal size and cortical thickness. There is minimal stranding of the perinephric fat. There is no renal calculi, mass or cyst. There is no hydronephrosis. Normal left ureter. Normal visualized stomach. Normal small intestine. Gated colonic diverticuli without acute inflammatory change. Question prior appendectomy. There is diffuse atherosclerotic calcification of the abdominal aorta, without a demonstrated aneurysm. Normal inferior vena cava. Normal retroperitoneum. Normal urinary bladder. Normal prostate. There are phleboliths in the pelvis without lymphadenopathy. No free air or free fluid is seen within the peritoneal cavity. Small umbilical hernia of omental fat. Bilateral inguinal hernias of omental fat. There are diffuse degenerative changes of the visualized lumbar spine. There is flattening of lumbar lordosis. There is minimal retrolisthesis of L3 on L4. CT/Abdomen/Pelvis without Cont IMPRESSION: 1. Gallstones without acute cholecystitis. 2. A decreasing size of a right renal cyst when compared to prior study. The kidneys are otherwise grossly unremarkable. 3. Scattered diverticulosis without acute inflammatory change. 4. Absence of the left UVJ calculus seen on the prior study. 5. Otherwise stable findings. Electronically Signed: Galen Baires DO at 16:28 EST Tel [phone], Service support ,
--- NOTE | 2020-11-05 14:49 | ED.DCSUM_ITS ---
History of Present Illness Chief Complaint: Flank Pain Informant: Patient Narrative: 70-year-old male presents with right flank/right mid axillary upper abdominal pain. Patient initially is on the phone with his significant other. Once off the phone he responds with a What?. He states for the past week and a half he has had a pain that is worse with touch movement and getting out of bed and points to the lower right mid axillary ribs as the source of pain. He denies any urinary symptoms. He denies any bowel or bladder symptoms. No rashes. He reports a previous history of kidney stones. He states that the current time he is having difficulty locating the exact source of pain. He denies any falls or recent heavy lifting or events that might strain a muscle. No fever. Patient with a history of kidney stones, coronary artery disease, diabetes and hypertension. - Past Medical History (1) Acute on chronic combined systolic (congestive) and diastolic (congestive) heart failure Status: Chronic (2) Essential (primary) hypertension Status: Chronic (3) Hyperlipidemia Status: Chronic (4) Ischemic cardiomyopathy Status: Chronic (5) NSTEMI (non-ST elevated myocardial infarction) Status: Chronic (6) Non-rheumatic aortic stenosis Status: Chronic (7) Secondary pulmonary arterial hypertension Status: Chronic Past Medical History - Allergies and Home Meds Allergies/Adverse Reactions: Allergies metformin Adverse Reaction (Verified 11/05/20 14:31) Elevated LDH and anion gap Primary Care Physician: Boston Figueroa MD [Primary Care Provider] - 3-5 Days if not improving Past Medical History: - - Reported kidney stones Surgical History: - - T+A, Appendectomy, Inguinal Hernia repair, R TKR, L Knee Surgery Lives: Spouse/ Significant Other Smoking Status: Former smoker Drugs: None - Family History Maternal Family History: Family History (Last Reviewed 06/18/20 @ 13:[address] Sabas Bae MD) Mother Diabetes Hypertension Father Diabetes Hypertension Sister Hypertension Brother Diabetes Hypertension Cancer, Onset Age: 50 CAD (coronary artery disease) Family History: Reports: No pertinent history Paternal Family History: Family History (Last Reviewed 06/18/20 @ 13:[address] Sabas Bae MD) Mother Diabetes Hypertension Father Diabetes Hypertension Sister Hypertension Brother Diabetes Hypertension Cancer, Onset Age: 50 CAD (coronary artery disease) Family History: Reports: No pertinent history Review of Systems General: Denies: Chills, Fever, Sweats Eyes: Denies: Visual changes - bilaterally, Diplopia ENT: Denies: Rhinorrhea, Sore throat Cardiovascular: Denies: Chest pain, Palpitations Respiratory: Denies: Dyspnea, Cough, Dyspnea on exertion Gastrointestinal: Denies: Abdominal pain, Nausea, Vomiting, Diarrhea, Melena, He matochezia Genitourinary: Denies: Dysuria, Hematuria, Frequency Musculoskeletal: Reports: Back pain - Right flank pain. Denies: Extremity Pain Skin: Denies: Rash, Wounds Neurological: Denies: Headache, Weakness, Numbness Physical Exam Vital Signs/Narrative: Vital Signs Temp Pulse Resp BP Pulse Ox 11/05/20 14:29 98 F 75 18 144/66 H 94 Inital Vital Signs reviewed: Yes General: Well nourished, Well developed, Obese, No Acute Distress Head: Normocephalic, Atraumatic Eyes: Perrl, EOMI ENT: Moist mucous membranes, No rhinorrhea Neck: Supple, Nontender Cardiovascular: Regular rate, Regular rhythm, No murmurs Respiratory: No distress, CTA bilaterally, Chest nontender Abdomen: Soft, Nondistended, Normal bowel sounds, Tender - Mild tenderness palpation over the mid axillary tissue around ribs 11 or 12. No rashes. Back: Nontender, Normal Inspection. Negative for: CVA tenderness - Specifically no right CVA tenderness. Extremities: Nontender, No edema Skin: Normal color, No rash Neurological: Alert, Oriented x3, Cranial nerves II-XII grossly intact, Normal Strength, Normal Sensation Psychological: Normal affect, Normal Mood Diagnostic/Tx/Re-eval Clinical Impression(s) from Imaging Studies Abdomen/Pelvis CT 11/05/20 14:48 IMPRESSION: 1. Gallstones without acute cholecystitis. 2. A decreasing size of a right renal cyst when compared to prior study. The kidneys are otherwise grossly unremarkable. 3. Scattered diverticulosis without acute inflammatory change. 4. Absence of the left UVJ calculus seen on the prior study. 5. Otherwise stable findings. Electronically Signed: Galen Baires DO at 16:28 EST Tel [phone], Service support , Laboratory Last Values WBC 5.5 K/mm3 (4.4-11.0) 11/05/20 15:10 RBC 4.04 M/mm3 (4.6-6.2) L 11/05/20 15:10 Hgb 12.4 g/dL (13.0-16.5) L 11/05/20 15:10 Hct 38.7 % (40-54) L 11/05/20 15:10 MCV 95.8 fL (80-94) H 11/05/20 15:10 MCH 30.7 pg (27.0-32.0) 11/05/20 15:10 MCHC 32.0 g/dL (32-36) 11/05/20 15:10 RDW Std Deviation 51.2 fl (35.1-43.9) H 11/05/20 15:10 RDW Coeff of Raphael 14.6 % (11.6-14.6) 11/05/20 15:10 Plt Count 186 K/mm3 (150-450) 11/05/20 15:10 MPV 10.1 fl (6.2-12.0) 11/05/20 15:10 Immature Gran % (Auto) 0.400 % (0.0-0.9) 11/05/20 15:10 Neut % (Auto) 62.8 % (47-70) 11/05/20 15:10 Lymph % (Auto) 23.9 % (19-41) 11/05/20 15:10 Esmeralda % (Auto) 8.0 % (0-10) 11/05/20 15:10 Eos % (Auto) 4.4 % (0-5) 11/05/20 15:10 Baso % (Auto) 0.5 % (0-1) 11/05/20 15:10 Absolute Neuts (auto) 3.4 X10^3/uL (2.0-7.7) 11/05/20 15:10 Absolute Lymphs (auto) 1.31 X10^3/uL (0.83-4.51) 11/05/20 15:10 Nucleated RBC % 0 % (0-5) 11/05/20 15:10 Sodium 139 mmol/L (136-145) 11/05/20 15:10 Potassium 3.7 mmol/L (3.5-5.1) 11/05/20 15:10 Chloride 104 mmol/L (98-107) 11/05/20 15:10 Carbon Dioxide 27.0 mmol/L (21.0-32.0) 11/05/20 15:10 Anion Gap 8 (5-15) 11/05/20 15:10 BUN 29 mg/dL (7-18) H 11/05/20 15:10 Creatinine 1.47 mg/dL (0.70-1.30) H 11/05/20 15:10 Estim Creat Clear Calc 46.09 ml/min 11/05/20 15:10 Est GFR (MDRD) Af Amer 61 mL/min (>60) 11/05/20 15:10 Est GFR (MDRD) Non-Af 50 mL/min (>60) L 11/05/20 15:10 BUN/Creatinine Ratio 19.7 RATIO (10-20) 11/05/20 15:10 Glucose 194 mg/dL (74-106) H 11/05/20 15:10 Calcium 8.4 mg/dL (8.5-10.1) L 11/05/20 15:10 Total Bilirubin 0.50 mg/dL (0.20-1.00) 11/05/20 15:10 AST 14 U/L (15-37) L 11/05/20 15:10 ALT 23 U/L (16-61) 11/05/20 15:10 Alkaline Phosphatase 97 U/L (45-117) 11/05/20 15:10 Total Protein 6.8 g/dL (6.4-8.2) 11/05/20 15:10 Albumin 3.4 g/dL (3.2-5.0) 11/05/20 15:10 Globulin 3.4 g/dL (2.2-4.2) 11/05/20 15:10 Albumin/Globulin Ratio 1.0 RATIO (0.9-2.4) 11/05/20 15:10 - Medical Decision Making White count is normal. Slight elevation of creatinine and hyperglycemia noted. CT chest demonstrates cholelithiasis. Urinalysis is normal. Trying to review the patient's results with him he keeps his mask up over his eyes and his face. He keeps his head covered with his jacket. And he says okay by. Despite having this unbearable pain for a week necessitating an emergency room visit he appears uninterested in reviewing his findings or what could explain his symptoms. He appears to be resting quite comfortably having woken from sleep. Clinically he has no tenderness over his gallbladder. No elevation of his LFTs and is been a week of symptoms and his white count is normal. Clinically I do not believe this is cholecystitis. His pain is worse with movement and touch and I suspect muscular skeletal in nature. Plan will be rest heat anti- inflammatories as needed and following up with primary care. ED Disposition - Plan for ED Patient: Disposition: Home or Assisted Living Diagnosis: Right flank pain Instructions: ED Flank Pain, Uncertain Cause Referrals: Boston Figueroa MD [Primary Care Provider] - 3-5 Days if not improving
[2020-11-05 15:22] LABS: Absolute Lymphocyte Count 1.31 X10^3/uL (0.83-4.51); Absolute Neutrophil Count 3.4 X10^3/uL (2.0-7.7); Basophil# 0.03 X10^3/uL; Basophil% 0.5 % (0-1); Eosinophil# 0.24 X10^3/uL; Eosinophils% 4.4 % (0-5); Hematocrit 38.7 % (40-54); Hemoglobin 12.4 g/dL (13.0-16.5); Lymphocyte # 1.31 X10^3/ul (4.0); Lymphocyte % 23.9 % (19-41); Mean Corpuscular Hgb 30.7 pg (27.0-32.0); Mean Corpuscular Volume 95.8 fL (80-94); Mean Platelet Vol. 10.1 fl (6.2-12.0); Monocyte# 0.44 X10^3/uL; NRBC Flagged by Analyzer 0 % (0-5); Neutrophil # 3.43 X10^3/uL (2.7-7.7); Neutrophil % 62.8 % (47-70); Platelet Count 186 K/mm3 (150-450); RBC Distribution Width CV 14.6 % (11.6-14.6); RBC Distribution Width SD 51.2 fl (35.1-43.9); Red Blood Count 4.04 M/mm3 (4.6-6.2); White Blood Count 5.5 K/mm3 (4.4-11.0)
[2020-11-05 15:35] LABS: AST(SGOT) 14 U/L (15-37); Alanine Aminotransfer ALT/SGPT 23 U/L (16-61); Albumin, Serum 3.4 g/dL (3.2-5.0); Alkaline Phosphatase 97 U/L (45-117); Anion Gap 8 (5-15); BUN 29 mg/dL (7-18); BUN/Creat Ratio 19.7 RATIO (10-20); Calcium,Total 8.4 mg/dL (8.5-10.1); Chloride 104 mmol/L (98-107); Creatinine, Serum 1.47 mg/dL (0.70-1.30); EST Glomerular Filtration Rate 50 mL/min (>60); Est Glom Filt Rate - Afr Amer 61 mL/min (>60); Estimated Creatinine Clearance 46.09 ml/min; Globulin 3.4 g/dL (2.2-4.2); Glucose 194 mg/dL (74-106); Potassium 3.7 mmol/L (3.5-5.1); Protein, Total 6.8 g/dL (6.4-8.2); Sodium Level 139 mmol/L (136-145)
[2020-11-05] MEDS: Ketorolac 15 MG/ML Vial IV (15:51)
[2020-11-05 16:24] LABS: Bacteria 0 SEEN /hpf (None Seen); Mucous, Urine 0 SEEN /hpf (<or=2+); Red Blood Cells-Urine 0 SEEN /hpf (0-5); White Blood Cells 0 SEEN /hpf (0-5)
[2020-11-05 16:34] LABS: Color, Urine Yellow (Yellow); Glucose, Dipstick Normal (Normal); Ketone-Dipstick Negative (Negative); Leukocyte Esterase-Dipstick Negative /ul (Negative); Nitrite-Dipstick Negative (Negative); Occult Blood-Urine Negative /ul (Negative); Protein-Dipstick Negative (Negative); Urine Bilirubin Dipstick Negative (Negative); Urine Clarity Clear (Clear); Urine Urobilinogen Normal (Normal); Urine pH 6.5 (5.0 - 8.0)
[2020-11-05 17:17] LABS: Squamous Epithelial Cells - UA 0-5 SEEN /hpf (0-5)
[2020-11-05 17:56] VITALS: BP 130/76; PULSE 72; RESP 18; O2SAT 99
== END 2020-11-05 17:59 | disposition home or self-care (01) ==
PROVIDERS: Emergency Provider Emergency Medicine; PCP Family Medicine
DX: R10.9 Unspecified abdominal pain (principal); I11.0 Hypertensive heart disease with heart failure; I50.43 Acute on chronic combined systolic (congestive) and diastolic (congestive) heart failure; I50.42 Chronic combined systolic (congestive) and diastolic (congestive) heart failure; I25.5 Ischemic cardiomyopathy; E11.65 Type 2 diabetes mellitus with hyperglycemia; I25.10 Atherosclerotic heart disease of native coronary artery without angina pectoris; I27.21 Secondary pulmonary arterial hypertension; I35.0 Nonrheumatic aortic (valve) stenosis; E78.5 Hyperlipidemia, unspecified; E66.9 Obesity, unspecified; Z79.02 Long term (current) use of antithrombotics/antiplatelets; Z79.82 Long term (current) use of aspirin; Z79.899 Other long term (current) drug therapy; Z87.442 Personal history of urinary calculi; I25.2 Old myocardial infarction; Z87.891 Personal history of nicotine dependence
CPT/HCPCS: 74176; 80053; 81001; 85025; 96374; 99284; J7030

== ENCOUNTER → 2021-02-07 05:53 | Outpatient (CLI) | payer MEDICARE, SELFPAY ==
[2020-03-07 09:49] VITALS: BMI 41.8
[2021-02-03 09:43] VITALS: BMI 42.7
--- NOTE | 2021-02-07 12:50 | STRESSREP ---
Stress Test Report Pharmacologic myocardial perfusion stress test. 72-year-old man with coronary artery disease for preoperative evaluation. Stress protocol: Resting EKG demonstrates normal sinus rhythm with a rate of 62 bpm normal intervals are noted resting blood pressure is 1 and 38 over 70 mmHg. 0.4 mg of regadenoson was infused per usual protocol followed by rapid intravenous saline flush injection continuous EKG monitoring was performed. Maximum heart rate attained was 83 bpm which was 56% of max impacted heart rate the maximum workload was 1 metabolic equivalent. At rest there were no ST or T wave changes noted to suggest ischemia and at peak infusion nonspecific ST changes were noted to suggest ischemia. His final blood pressure was 132/64 mmHg. Myocardial perfusion protocol. 14.8 mCi of technetium 99m sestamibi was injected at rest. 0.4 mg of regadenoson was infused per usual protocol. At peak infusion 44.5 mCi of technetium 99m sestamibi was injected stress images were obtained stress and rest images were reconstructed and compared in the short axis vertical and horizontal long axis. Gated images were also obtained Perfusion SPECT analysis: Review of the stress images demonstrate mildly reduced perfusion in the anterior septal wall towards the apex. The lateral wall and inferior wall appeared to be normally perfused. The resting images demonstrate a similar patent. The above is not suggestive of ischemia. At previous anterior septal apical infarct cannot be completely excluded. Rest of the de souza are normally perfused. Gated SPECT analysis: The gated ejection fraction is 40%. Conclusion: Pharmacologic myocardial perfusion stress test with no evidence of ischemia. Mild cardiomyopathy present. Previous small anterior septal/apical infarct cannot be completely excluded.
== END ==
PROVIDERS: PCP Family Medicine; Referring Provider Physician Assistant Medical; Visit Provider Physician Assistant Medical
DX: R07.9 Chest pain, unspecified (principal); I25.119 Atherosclerotic heart disease of native coronary artery with unspecified angina pectoris
CPT/HCPCS: 78452; 93017; A9500; A4216; J2785

== ENCOUNTER 2021-04-15 18:15 | Inpatient (IN) | payer MEDICARE, SELFPAY ==
[2020-03-07 09:49] VITALS: BMI 41.8
[2021-02-03 09:43] VITALS: BMI 42.7
[2021-04-15 18:16] VITALS: BP 121/60; PULSE 75; RESP 15; TEMP 37; O2SAT 99; BMI 40.1
--- NOTE | 2021-04-15 20:48 | EKG12_ITS ---
Test Reason : DYSRHYTHMIA Blood Pressure : / mmHG Vent. Rate : 081 BPM Atrial Rate : 081 BPM P-R Int : 172 ms QRS Dur : 096 ms QT Int : 384 ms P-R-T Axes : 054 -12 102 degrees QTc Int : 446 ms Normal sinus rhythm Nonspecific ST and T wave abnormality Abnormal ECG Confirmed by REYNA MOYER, CINTHYA ([id number]), advertising editor EDYTA NEIL ([id number]) on 04/17/2021 10:07:42 AM Referred By: RAYSA Confirmed By:CINTHYA ORELLANA MD
[2021-04-15 21:06] LABS: Absolute Lymphocyte Count 1.02 X10^3/uL (0.83-4.51); Absolute Neutrophil Count 5.2 X10^3/uL (2.0-7.7); Basophil# 0.03 X10^3/uL; Basophil% 0.4 % (0-1); Eosinophil# 0.21 X10^3/uL; Eosinophils% 2.9 % (0-5); Hematocrit 30.5 % (40-54); Hemoglobin 9.2 g/dL (13.0-16.5); Lymphocyte # 1.02 X10^3/ul (0.83-4.51); Lymphocyte % 14.3 % (19-41); Mean Corp Hgb Conc 30.2 g/dL (32-36); Mean Corpuscular Hgb 29.4 pg (27.0-32.0); Mean Corpuscular Volume 97.4 fL (80-94); Mean Platelet Vol. 9.8 fl (6.2-12.0); Monocyte# 0.64 X10^3/uL; NRBC Flagged by Analyzer 0 % (0-5); Neutrophil # 5.21 X10^3/uL (2.7-7.7); Neutrophil % 73.1 % (47-70); Platelet Count 208 K/mm3 (150-450); RBC Distribution Width CV 16.2 % (11.6-14.6); RBC Distribution Width SD 58.2 fl (35.1-43.9); Red Blood Count 3.13 M/mm3 (4.6-6.2); White Blood Count 7.1 K/mm3 (4.4-11.0)
[2021-04-15 21:26] LABS: Anion Gap 8 (5-15); BUN 39 mg/dL (7-18); BUN/Creat Ratio 26.9 RATIO (10-20); Calcium,Total 8.6 mg/dL (8.5-10.1); Chloride 111 mmol/L (98-107); Creatinine, Serum 1.45 mg/dL (0.70-1.30); EST Glomerular Filtration Rate 51 mL/min (>60); Est Glom Filt Rate - Afr Amer 62 mL/min (>60); Estimated Creatinine Clearance 47.55 ml/min; Glucose 63 mg/dL (74-106); Potassium 4.1 mmol/L (3.5-5.1); Sodium Level 143 mmol/L (136-145)
--- NOTE | 2021-04-15 21:26 | EX.ED.DYSGE1 ---
HPI History of Present Illness Chief Complaint: Edema Narrative Narrative: 71-year-old male with history of CAD, NSTEMI, cardiac stent, CHF, pulmonary hypertension, hypertension, hyperlipidemia presenting with worsening abdominal bloating and lower extremity edema. Patient also states that his testicles are swollen. Patient states this has been worse over the last couple of days. He is not having any chest pain. He states he is minimally short of breath with exertion. He is not had any fever. He does not have a cough. [facility] Medical History Acute on chronic combined systolic (congestive) and diastolic (congestive) heart failure Atherosclerosis of coronary artery without angina pectoris Bilateral lower extremity edema Dermatitis Diastolic dysfunction Elevated liver enzymes Essential (primary) hypertension Fatty liver Gout Hyperlipidemia Ischemic cardiomyopathy Morbid obesity Morbid obesity with BMI of 40.0-44.9, adult Non-rheumatic aortic stenosis NSTEMI (non-ST elevated myocardial infarction) (02/25/19) Obstructive sleep apnea Osteoarthritis Secondary pulmonary arterial hypertension Type 2 diabetes mellitus Home Medications allopurinol 300 mg PO DAILY 04/10/16 [History Last Taken 05/05/16] aspirin 81 mg tablet,delayed release 81 mg PO QDAY 04/14/18 [History Last Taken 01/24/20] multivitamin 1 tab PO DAILY 01/25/19 [History Last Taken Unknown] nitroglycerin 0.4 mg sublingual tablet 0.4 mg SUBLINGUAL Q5-15M PRN 01/25/19 [History Last Taken Unknown] glipizide 5 mg tablet 5 mg PO BID tab 05/23/19 [History Last Taken Unknown] carvedilol 6.25 mg tablet 6.25 mg PO BID #180 tab 01/18/20 [Rx Last Taken Unknown] atorvastatin 80 mg tablet 80 mg PO QHS #90 tab 04/08/20 [Rx Last Taken Unknown] lisinopril 10 mg tablet 10 mg PO DAILY #90 tab 04/24/20 [Rx Last Taken Unknown] isosorbide mononitrate 30 mg tablet,extended release 24 hr 30 mg PO DAILY #90 tab 05/27/20 [Rx Last Taken Unknown] furosemide 40 mg tablet 40 mg PO DAILY #90 tab 07/05/20 [Rx Last Taken Unknown] clopidogrel 75 mg tablet 75 mg PO DAILY #90 tab 08/02/20 [Rx Last Taken Unknown] pioglitazone 15 mg PO DAILY 09/01/20 [History Last Taken Unknown] Allergy/AdvReac Type Severity Reaction Status Date / Time metformin AdvReac Elevated Verified 04/15/21 20:31 LDH and anion gap Family History Mother , Age 80 Diabetes Hypertension Father , Age 55, coma Diabetes Hypertension Sister Hypertension Brother Diabetes Hypertension Cancer, Onset Age: 50 prostate cancer CAD (coronary artery disease) Surgical History History of appendectomy History of coronary artery stent placement (01/24/20) History of herniorrhaphy History of left heart catheterization (12/29/18) History of tonsillectomy History of total knee replacement (TKR) Social History Smoking Status: Former smoker quit date: 01/31/11 alcohol intake: current alcohol intake frequency: holidays/special occasions only substance use type: does not use caffeine: Yes Type: coffee ROS ROS ED Constitutional Constitutional ED: Denies chills, fever(s) or subjective Eyes Eyes: Denies blurry vision or change in vision Cardiovascular Cardiovascular: Reports orthopnea; Denies chest pain, palpitations or racing heartbeat Respiratory/Chest Respiratory/Chest: Reports dyspnea on exertion and orthopnea; Denies cough or sputum Gastrointestinal Gastrointestinal: Reports abdominal pain; Denies nausea or vomiting Genitourinary Genitourinary ED: Denies dysuria or hematuria Musculoskeletal Musculoskeletal: Denies arthralgias or myalgias Integumentary Reports rash; Denies abscess Neurologic Neurologic: Denies headache(s) or weakness Psychiatric Psychiatric: Denies anxiety or depression Endocrine Endocrinology: Denies polydipsia or polyuria EXAM Physical Exam Const Vital Signs: 04/15/21 18:16 04/15/21 20:34 04/15/21 20:57 Temperature 98.6 F Temperature Source Temporal Pulse Rate 75 Respiratory Rate 15 Respiratory Effort Normal Non-Labored Respiratory Pattern Normal Blood Pressure 121/60 H Blood Pressure Mean 80 Pulse Ox 99 Oxygen Delivery Method Room Air Room Air 04/15/21 22:00 04/15/21 23:35 Temperature Temperature Source Pulse Rate 87 72 Respiratory Rate 19 H 20 H Respiratory Effort Respiratory Pattern Blood Pressure 142/82 H 127/105 H Blood Pressure Mean 102 112 Pulse Ox 96 96 Oxygen Delivery Method Room Air Room Air Positive obese General Appearance ED: NAD Nutritional Appearance: obese HEENT Reports moist mucous membranes Negative for trauma Eyes PERRL and EOMs intact bilaterally General Eye ED: Negative for pale conjunctiva or scleral icterus Neck no lymphadenopathy and supple Resp normal respiratory effort and clear to auscultation bilaterally Cardio regular rate and regular rhythm GI Inspection: abdominal distention Auscultation: normoactive bowel sounds Palpation: Negative for mass Rectal Exam: normal sphincter tone and heme positive stool Narrative: Scrotal swelling/edema. Testicles are nontender to palpation. Extremity General Extremety ED: Yes edema; Negative for tenderness General Extremity: edema Neuro oriented x3 and CN's II-XII intact bilaterally Sensorium / Orientation: alert Psych mental status grossly normal Skin Skin Narrative: Patient has intertriginous rash under under abdominal pannus. MDM MDM MDM Narrative Medical decision making narrative: Patient presenting with abdominal bloating, scrotal swelling, worsening of extremity edema. He has history of CHF. He states he has orthopnea and mild dyspnea with exertion. He is not having any chest pain. EKG performed on arrival shows a sinus rhythm at 81 bpm without with nonspecific ST-T wave abnormalities. EKG does appear to be similar to a previous EKG from last year however another EKG does not show the similarity. The source of the changes unclear. Patient's lab work shows no leukocytosis. His hemoglobin is 9.2. This is new from his previous. He does state that he had a knee surgery and that could be why he is anemic. I did obtain an occult stool and the stool is brown. Chest x-ray is interpreted by myself shows mild pulmonary edema. The radiologist does agree. Patient's troponin is 0.369 and I did ask him multiple times if he had any chest pain he denies this. His BNP is 1773. I believe his troponin is likely elevated due to heart strain. He does have significant edema. Patient's Hemoccult did come back positive. Type and screen was added. I spoke with Dr. Myers who stated it was okay for him to stay at [place]. This was discussed with the hospitalist. Patient is admitted in stable condition. Impression: 1. CHF exacerbation 2. GI bleed 3. Elevated troponin Lab Data Labs: Laboratory Results - last 24 hr 06/15/21 06/15/21 06/15/21 20:55 20:55 20:55 WBC 7.1 RBC 3.13 L Hgb 9.2 L Hct 30.5 L MCV 97.4 H MCH 29.4 MCHC 30.2 L RDW Std Deviation 58.2 H RDW Coeff of Raphael 16.2 H Plt Count 208 MPV 9.8 Immature Gran % (Auto) 0.300 Neut % (Auto) 73.1 H Lymph % (Auto) 14.3 L Carter % (Auto) 9.0 Eos % (Auto) 2.9 Baso % (Auto) 0.4 Absolute Neuts (auto) 5.2 Absolute Lymphs (auto) 1.02 Nucleated RBC % 0 Sodium 143 Potassium 4.1 Chloride 111 H Carbon Dioxide 24.0 Anion Gap 8 BUN 39 H Creatinine 1.45 H Estim Creat Clear Calc 47.55 Est GFR (MDRD) Af Amer 62 Est GFR (MDRD) Non-Af 51 L BUN/Creatinine Ratio 26.9 H Glucose 63 L Calcium 8.6 Total Bilirubin Direct Bilirubin AST ALT Alkaline Phosphatase Troponin I 0.369 H B-Natriuretic Peptide 1773.3 H Total Protein Albumin Globulin 04/15/21 20:55 WBC RBC Hgb Hct MCV MCH MCHC RDW Std Deviation RDW Coeff of Raphael Plt Count MPV Immature Gran % (Auto) Neut % (Auto) Lymph % (Auto) Carter % (Auto) Eos % (Auto) Baso % (Auto) Absolute Neuts (auto) Absolute Lymphs (auto) Nucleated RBC % Sodium Potassium Chloride Carbon Dioxide Anion Gap BUN Creatinine Estim Creat Clear Calc Est GFR (MDRD) Af Amer Est GFR (MDRD) Non-Af BUN/Creatinine Ratio Glucose Calcium Total Bilirubin 0.60 Direct Bilirubin 0.28 AST 15 ALT 24 Alkaline Phosphatase 93 Troponin I B-Natriuretic Peptide Total Protein 6.8 Albumin 3.2 Globulin 3.6 Radiography Diagnostic Testing: Radiology Impression Chest X-Ray 04/15/21 21:35 IMPRESSION: Trace airspace disease that I think is likely minimal pulmonary edema and not pneumonia. Due to its diffuse nature. at 2149 Reported and signed by: Иван Kahn MD Electronically Signed: Иван Kahn MD at 21:48 EDT Tel , Service support , Discharge Plan Triage Chief Complaint: Edema ED Provider: Jt Meeks Dx/Rx/DC Orders Primary Care Provider: Boston Figueroa
[2021-04-15 21:27] LABS: BNP,B-Type NATRIURETIC PEPTIDE 1773.3 pg/mL (0-100)
--- NOTE | 2021-04-15 21:35 | RAD_ITS ---
HISTORY: chest pain EXAM: XR Chest 1 View: COMPARISON: September 01, 2020 FINDINGS: # of images incl. paperwork: 1 Diffuse minimal airspace disease is present. Many healed left rib fractures are again demonstrated. Heart is not enlarged. No acute osseous pathology perceived. Pulmonary vascularity is slightly indistinct. No effusions. RAD/Chest 1 View (Portable) IMPRESSION: Trace airspace disease that I think is likely minimal pulmonary edema and not pneumonia. Due to its diffuse nature. at 2149 Reported and signed by: Иван Kahn MD Electronically Signed: Иван Kahn MD at 21:48 EDT Tel , Service support ,
[2021-04-15 22:00] VITALS: BP 142/82; PULSE 87; RESP 19; O2SAT 96
[2021-04-15 22:13] LABS: AST(SGOT) 15 U/L (15-37); Alanine Aminotransfer ALT/SGPT 24 U/L (16-61); Albumin, Serum 3.2 g/dL (3.2-5.0); Alkaline Phosphatase 93 U/L (45-117); Bilirubin, Direct 0.28 mg/dL (0.00-0.30); Globulin 3.6 g/dL (2.2-4.2); Protein, Total 6.8 g/dL (6.4-8.2)
[2021-04-15] MEDS: Aspirin 81 MG TAB.CHEW 324 MG PO (23:18)
[2021-04-15] MEDS: Furosemide 40 MG/4 ML Vial IV (23:28)
[2021-04-15 23:35] VITALS: BP 127/105; PULSE 72; RESP 20; O2SAT 96
--- NOTE | 2021-04-15 23:40 | PCM.HP.STD ---
[facility] - General General Date of Admission: 04/15/21 Date of Service: 04/15/21 Chief Complaint: Edema [facility] Narrative LUIS DEE, is a 71 M with a significant history of heart failure with preserved ejection fraction; non-rheumatic aortic stenosis; and morbid obesity who presents to the emergency department with a 2-day history of persistent swelling. He reports swelling in his abdomen causing him to feel bloated; and swelling in his bilateral lower legs. Also he reports swelling of his scrotum which has made it impossible for him to walk. Patient reports chronic dyspnea at rest but denies acute dyspnea. However he reports some dyspnea with exertion. He has orthopnea that he attributes to sleep apnea and inability to use his BiPAP/CPAP. Associated symptom is fatigue. He called his PCPs office and he was instructed to come to emergency department. At the emergency part the patient was found to have a significant drop in his hemoglobin. Emergent department doctor reports brown stool on rectal examination. Occult blood of the stool returned positive. Of note patient had left knee surgery in January 2021 of this year and also on April 01, 2021 he went for a manipulation of his left knee. He reported he has been getting therapy. [facility] Medical History (Updated 04/16/21 @ 01:[address] Hayn Zacarias MD) Acute on chronic combined systolic (congestive) and diastolic (congestive) heart failure Atherosclerosis of coronary artery without angina pectoris Bilateral lower extremity edema Dermatitis Diastolic dysfunction Elevated liver enzymes Essential (primary) hypertension Fatty liver Gout Hyperlipidemia Ischemic cardiomyopathy Morbid obesity Morbid obesity with BMI of 40.0-44.9, adult Non-rheumatic aortic stenosis NSTEMI (non-ST elevated myocardial infarction) (02/25/19) Obstructive sleep apnea Osteoarthritis Secondary pulmonary arterial hypertension Type 2 diabetes mellitus Home Medications allopurinol 300 mg PO DAILY 04/10/16 [History Last Taken 05/05/16] aspirin 81 mg tablet,delayed release 81 mg PO QDAY 04/14/18 [History Last Taken 01/24/20] multivitamin 1 tab PO DAILY 01/25/19 [History Last Taken Unknown] nitroglycerin 0.4 mg sublingual tablet 0.4 mg SUBLINGUAL Q5-15M PRN 01/25/19 [History Last Taken Unknown] glipizide 5 mg tablet 5 mg PO BID tab 05/23/19 [History Last Taken Unknown] carvedilol 6.25 mg tablet 6.25 mg PO BID #180 tab 01/18/20 [Rx Last Taken Unknown] atorvastatin 80 mg tablet 80 mg PO QHS #90 tab 04/08/20 [Rx Last Taken Unknown] lisinopril 10 mg tablet 10 mg PO DAILY #90 tab 04/24/20 [Rx Last Taken Unknown] isosorbide mononitrate 30 mg tablet,extended release 24 hr 30 mg PO DAILY #90 tab 05/27/20 [Rx Last Taken Unknown] furosemide 40 mg tablet 40 mg PO DAILY #90 tab 07/05/20 [Rx Last Taken Unknown] pioglitazone 15 mg PO DAILY 09/01/20 [History Last Taken Unknown] clopidogrel 75 mg PO DAILY 04/16/21 [History Last Taken Unknown] Allergy/AdvReac Type Severity Reaction Status Date / Time metformin AdvReac Elevated Verified 04/15/21 20:31 LDH and anion gap Family History Mother , Age 80 Diabetes Hypertension Father , Age 55, coma Diabetes Hypertension Sister Hypertension Brother Diabetes Hypertension Cancer, Onset Age: 50 prostate cancer CAD (coronary artery disease) Surgical History History of appendectomy History of coronary artery stent placement (01/24/20) History of herniorrhaphy History of left heart catheterization (12/29/18) History of tonsillectomy History of total knee replacement (TKR) Social History (Updated 04/16/21 @ 01:13 by Audrey Rodrigues) household members: children Smoking Status: Former smoker quit date: 01/31/11 alcohol intake: current alcohol intake frequency: holidays/special occasions only substance use type: does not use caffeine: Yes Type: coffee ROS ROS Narrative 12 point review of system is negative except as stated in HPI. Vital Signs Vital Signs Vital Signs: 04/15/21 18:16 04/15/21 20:34 04/15/21 20:57 Temperature 98.6 F Temperature Source Temporal Pulse Rate 75 Respiratory Rate 15 Respiratory Effort Normal Non-Labored Respiratory Pattern Normal Blood Pressure 121/60 H Blood Pressure Mean 80 Pulse Ox 99 Oxygen Delivery Method Room Air Room Air 04/15/21 22:00 04/15/21 23:35 Temperature Temperature Source Pulse Rate 87 72 Respiratory Rate 19 H 20 H Respiratory Effort Respiratory Pattern Blood Pressure 142/82 H 127/105 H Blood Pressure Mean 102 112 Pulse Ox 96 96 Oxygen Delivery Method Room Air Room Air Weight Weight: 127.006 kg Body Mass Index (BMI) 40.1 Physical Exam Narrative Alert and oriented x3 Nontraumatic; normocephalic Lung: Bibasilar Rales. Heart sounds S1-S2. No murmur, gallop or rubs. Abdomen bowel sounds present soft, nontender nondistended Extremity: Lower abdomen with mild erythema and edematous. Scrotal edema. Bilateral lower extremity edema. Results Lab / Micro Data Result Diagrams: 04/15/21 20:55 04/15/21 20:55 Labs: Laboratory Results - last 24 hr 04/15/21 04/15/21 04/15/21 20:55 20:55 20:55 WBC 7.1 RBC 3.13 L Hgb 9.2 L Hct 30.5 L MCV 97.4 H MCH 29.4 MCHC 30.2 L RDW Std Deviation 58.2 H RDW Coeff of Raphael 16.2 H Plt Count 208 MPV 9.8 Immature Gran % (Auto) 0.300 Neut % (Auto) 73.1 H Lymph % (Auto) 14.[address] [place] % (Auto) 9.0 Eos % (Auto) 2.9 Baso % (Auto) 0.4 Absolute Neuts (auto) 5.2 Absolute Lymphs (auto) 1.02 Nucleated RBC % 0 Sodium 143 Potassium 4.1 Chloride 111 H Carbon Dioxide 24.0 Anion Gap 8 BUN 39 H Creatinine 1.45 H Estim Creat Clear Calc 47.55 Est GFR (MDRD) Af Amer 62 Est GFR (MDRD) Non-Af 51 L BUN/Creatinine Ratio 26.9 H Glucose 63 L Calcium 8.6 Total Bilirubin Direct Bilirubin AST ALT Alkaline Phosphatase Troponin I 0.369 H B-Natriuretic Peptide 1773.3 H Total Protein Albumin Globulin 04/15/21 20:55 WBC RBC Hgb Hct MCV MCH MCHC RDW Std Deviation RDW Coeff of Raphael Plt Count MPV Immature Gran % (Auto) Neut % (Auto) Lymph % (Auto) [place] % (Auto) Eos % (Auto) Baso % (Auto) Absolute Neuts (auto) Absolute Lymphs (auto) Nucleated RBC % Sodium Potassium Chloride Carbon Dioxide Anion Gap BUN Creatinine Estim Creat Clear Calc Est GFR (MDRD) Af Amer Est GFR (MDRD) Non-Af BUN/Creatinine Ratio Glucose Calcium Total Bilirubin 0.60 Direct Bilirubin 0.28 AST 15 ALT 24 Alkaline Phosphatase 93 Troponin I B-Natriuretic Peptide Total Protein 6.8 Albumin 3.2 Globulin 3.6 Radiology Impression Chest X-Ray 04/15/21 21:35 IMPRESSION: Trace airspace disease that I think is likely minimal pulmonary edema and not pneumonia. Due to its diffuse nature. at 2149 Reported and signed by: Иван Kahn MD Electronically Signed: Иван Kahn MD at 21:48 EDT Tel , Service support , Assessment & Plan Assessment/Plan (1) Elevated troponin: (2) Anemia: QUALIFIERS: Anemia type: other cause Other causes of anemia: acute posthemorrhagic Qualified Code(s): D62 - Acute posthemorrhagic anemia (3) Positive occult stool blood test: (4) Heart failure with reduced ejection fraction: PLAN: Acute Exacerbation of heart failure with reduced ejection fraction Place on monitored bed on a progressive care unit Weight on admission to the floor; and then daily Strict I&O's Impression of chest x-ray by radiology: Trace airspace disease attributed to pulmonary edema due to its diffuse nature. Actual chest x-ray image was independently interpreted. I agree radiologist interpretation. EKG independently reviewed confirms T wave inversions in aVL and lead I. Review of old records show that in September 2020 there was T wave inversion in leads aVL and subtle T wave inversion in leads I. T wave inversion in leads I looks slightly worse than in September 2020. However this finding is confounded since in December 2020 there was no T wave inversions. Emergency department labs reviewed [] Old records reviewed shows BNP of 1,773.3. Review of old records show that on 09/01/2020 his BNP was 282.5. Hold home Lasix. Of note patient is on pioglitazone at home. Hold pioglitazone. Lasix 40 mg IV twice daily ordered. Supplement potassium. Review of records show the patient had an echocardiogram on 11/08/2019. Echocardiogram showed moderate concentric left ventricular hypertrophy. Left ventricular systolic function was normal with estimated ejection fraction of 55%. There was stage I diastolic dysfunction. Of note patient had a stress test 02/07/2021. The gated ejection fraction was 40%. Per conclusion of the reports previous small anterior septal/apical infarct could not be completely excluded. Lisinopril continued. Carvedilol continued. Monitor electrolytes and renal function Trend blood pressure Titrate diuretics and heart failure/blood pressure medications with blood pressure. Alirio wrap to bilateral lower extremities Fluid restriction of 1500 mls daily Cardiac and calorie restricted diet. Elevated troponin Troponin on presentation was 0.369. Likely secondary to congestive heart failure. Trend. Acute hemorrhagic anemia. Positive occult stools at the emergency department. Emergency department reportedly discussing the case with general surgery on-call Dr. Louis coffman. We will hold off inpatient general surgery consult at this time. Repeat CBC in a.m. His last stents was placed more than 1 year ago. Hold Plavix. Continue aspirin. No chemical chemoprophylaxis at this time. We will check iron studies including ferritin. History of Covid Review of records show that on 09/01/2020 patient had a positive Covid test. Current symptoms are not due to Covid. History of CAD status post stents.: Aspirin continued. Plavix held as above. DVT prophylaxis: SCD ordered. Patient is not a candidate of chemical thromboprophylaxis secondary to GI bleed. Charges/Coding Visit Charges Inpatient E&M: 64111 Init Hosp L3
[2021-04-16] VITALS (11 sets, daily range): BP systolic 107–145; BP diastolic 55–80; PULSE 68–94; RESP 16–20; TEMP 36.6–36.7; O2SAT 95–98; BMI 44.1
--- NOTE | 2021-04-16 00:49 | ECHOCS_ITS ---
Reason For Study: CHF Procedure This was a 2D Doppler, Color Flow transthoracic echocardiogram. The study was technically difficult. Due to body habitus. Contrast injection was performed. Exam performed portable in patient room. Left Ventricle Normal LV size. Left ventricular systolic function is normal. The estimated ejection fraction is 45 %. [place] : Hypokinetic. Right Ventricle Normal RV size. Normal systolic function. Atria The left atrium is moderately enlarged. The right atrium is mildly enlarged. Mitral Valve Normal mitral valve. Mild (1+) eccentric mitral valve insufficiency. Tricuspid Valve Normal tricuspid valve. Mild (1+) tricuspid valve insufficiency. Pulmonary artery systolic pressure is 34 mmHg. Aortic Valve Trisinus/trileaflet aortic valve. Moderate focal aortic valve calcification. Peak aortic valve gradient 28 mmHg. Mean aortic valve gradient 17 mmHg. Mild aortic stenosis. Calculated aortic valve area (continuity equation) is 1.6 cm2. Pulmonic Valve Normal pulmonic valve. Great Vessels Normal aortic root. The pulmonary artery is normal size. Normal inferior vena cava. Pericardium/Pleural No pericardial effusion. MMode/2D Measurements & Calculations LVIDd: 5.6 cm IVSd: 1.2 cm LVOT diam: 2.2 cm LVIDs: 4.5 cm LVPWd: 1.1 cm LVOT area: 4.0 cm2 RVDd: 4.1 cm FS: 19.7 % Ao root diam: 3.6 cm LAV(MOD-bp): 137.0 ml LVAd ap4: 35.8 cm2 LAV(MOD-bp) Indexed: 54.7 ml/m2 LVLd ap4: 8.6 cm LAV(MOD-sp2): 121.0 ml EDV(MOD-sp4): 122.6 ml LAV(MOD-sp4): 142.9 ml EDV(sp4-el): 126.2 ml LVAs ap4: 22.9 cm2 LVLs ap4: 6.9 cm ESV(MOD-sp4): 63.3 ml ESV(sp4-el): 64.0 ml EF(MOD-sp4): 48.4 % EF(sp4-el): 49.3 % LVAd ap2: 38.2 cm2 SV(MOD-sp4): 59.3 ml SV(MOD-sp2): 67.1 ml LVLd ap2: 9.0 cm EDV(MOD-sp2): 136.2 ml EDV(sp2-el): 136.9 ml LVAs ap2: 25.4 cm2 LVLs ap2: 7.7 cm ESV(MOD-sp2): 69.1 ml ESV(sp2-el): 70.6 ml EF(MOD-sp2): 49.3 % SV(sp4-el): 62.2 ml LA dimension(2D): 4.7 cm LA A4 area: 33.9 cm2 RA A4 area: 25.2 cm2 Time Measurements MV dec time: 0.13 sec Doppler Measurements & Calculations MV E max raghavendra: 126.2 cm/sec Lat Peak E' Raghavendra: 9.4 cm/sec Med Peak E' Raghavendra: 5.9 cm/sec MV A max raghavendra: 48.0 cm/sec E/E' lat: 13.4 E/E' med: 21.3 MV E/A: 2.6 Ao V2 max: 265.9 cm/sec LV V1 max: 106.3 cm/sec SV(LVOT): 90.0 ml Ao max P.4 mmHg LV V1 max P.5 mmHg Ao V2 mean: 198.4 cm/sec LV V1 mean P.4 mmHg Ao mean P.1 mmHg LV V1 mean: 73.7 cm/sec Ao V2 VTI: 57.5 cm LV V1 VTI: 22.7 cm CATHIE(I,D): 1.6 cm2 CATHIE(V,D): 1.6 cm2 PA V2 max: 76.2 cm/sec TR max raghavendra: 267.5 cm/sec TR max P.6 mmHg ECHO/Echo Complete W/ Contrast Interpretation Summary Normal LV size. Left ventricular systolic function is normal. The estimated ejection fraction is 45 %. [place] : Hypokinetic. Mild aortic stenosis. Moderate focal aortic valve calcification. Calculated aortic valve area (continuity equation) is 1.6 cm2. Contrast injection was performed. Compared to previous study, the left ventricu lar systolic function is the same.. Ordering Physician: Deann^Hany^^^ Referring Physician: Boston Figueroa Performed By: Rosy Hilton RDCS, RVT
[2021-04-16] MEDS: Atorvastatin Calcium 80 MG Tablet PO ×2 (02:12→20:52)
[2021-04-16 03:45] LABS: Absolute Lymphocyte Count 0.94 X10^3/uL (0.83-4.51); Absolute Neutrophil Count 4.9 X10^3/uL (2.0-7.7); Basophil# 0.02 X10^3/uL; Basophil% 0.3 % (0-1); Eosinophil# 0.29 X10^3/uL; Eosinophils% 4.3 % (0-5); Hematocrit 29.2 % (40-54); Hemoglobin 8.9 g/dL (13.0-16.5); Lymphocyte # 0.94 X10^3/ul (0.83-4.51); Lymphocyte % 13.8 % (19-41); Mean Corp Hgb Conc 30.5 g/dL (32-36); Mean Corpuscular Hgb 29.9 pg (27.0-32.0); Mean Platelet Vol. 9.6 fl (6.2-12.0); Monocyte% 8.8 % (0-10); NRBC Flagged by Analyzer 0 % (0-5); Neutrophil # 4.94 X10^3/uL (2.7-7.7); Neutrophil % 72.5 % (47-70); Platelet Count 186 K/mm3 (150-450); RBC Distribution Width CV 16.1 % (11.6-14.6); RBC Distribution Width SD 57.5 fl (35.1-43.9); Red Blood Count 2.98 M/mm3 (4.6-6.2); White Blood Count 6.8 K/mm3 (4.4-11.0)
[2021-04-16 04:10] LABS: Vitamin B12 392 pg/mL (211-911)
[2021-04-16 04:37] LABS: Anion Gap 6 (5-15); BUN 36 mg/dL (7-18); BUN/Creat Ratio 26.1 RATIO (10-20); Calcium,Total 8.1 mg/dL (8.5-10.1); Chloride 109 mmol/L (98-107); Creatinine, Serum 1.38 mg/dL (0.70-1.30); EST Glomerular Filtration Rate 54 mL/min (>60); Est Glom Filt Rate - Afr Amer 65 mL/min (>60); Estimated Creatinine Clearance 49.96 ml/min; Ferritin 83 ng/mL (26-388); Glucose 104 mg/dL (74-106); Iron 31 ug/dL (65-175); Iron Binding Capacity,Total 282 ug/dL (250-450); Potassium 3.9 mmol/L (3.5-5.1); Sodium Level 142 mmol/L (136-145)
[2021-04-16 06:40] LABS: Bedside Glucose 93 mg/dL (70-110)
[2021-04-16] MEDS: Lisinopril 10 MG Tablet PO (08:18)
[2021-04-16] MEDS: Potassium Chloride Oral Tablet 20 MEQ PO (08:18)
[2021-04-16] MEDS: Allopurinol 300 MG Tablet PO (08:18)
[2021-04-16] MEDS: Carvedilol 6.25 MG Tablet PO ×2 (08:18→20:52)
[2021-04-16] MEDS: Multivitamins,Therapeutic Tablet 1 TABLET PO (08:18)
[2021-04-16] MEDS: Furosemide 40 MG/4 ML Vial IV ×2 (08:18→17:30)
[2021-04-16] MEDS: Isosorbide Mononitrate 30 MG Tablet PO (08:18)
[2021-04-16] MEDS: Aspirin E.C. 81 MG Tablet PO (08:18)
--- NOTE | 2021-04-16 10:00 | CASEMGMT ---
BAILEE CALIX assessment: Face to Face with patient for initial transition planning/care coordination assessment. BAILEE CALIX introduced self and role at [facility], pt voices understanding and consents to assessment. Pt is lying in bed in no distress on room air. Pt is A/Ox4 and answers all questions appropriately. Pt c/o swelling to abd, legs and scrotum. Care providers, pharmacy, and demographics verified/updated. Presentation: Pt presented for bilat leg/abd swelling Admitting dx: Acute HF PCP: Henry Specialists: Kathia, cardio; [facility] Preferred [facility]acy: [facility] Insurance: [facility] Prescription Benefit: AeR Living Will/HPOA: Pt has HPOA on file and his brother, Robert Melgar, is listed as HPOA. LNOK: Robert Melgar, brother/HPOA; Martinez Melgar, son; Rachelle Alvarez, daughter Living Arrangements: Pt's son lives with him in 1 story home with no steps in and pt states no concerns at home. Pt states is independent with ADL's. Transportation: Pt states drives self and states no transportation concerns. DME/HHC: Pt states has a cane and walker. Pt states no need for any further DME. Pt states no hx of HHC or SNF in the past. Pt states no concerns with going home at time of discharge. Pt is retired. Pt states does not smoke cigarettes but does occasionally drink ETOH. Pt states no further concerns/needs. CM to follow for any further discharge planning/needs. Advised pt to ask for CM if any further questions/concerns/needs arise, voices understanding. Pt Goal: Home Plan[place] BAILEE CAL[place]
--- NOTE | 2021-04-16 10:31 | CASEMGMT ---
Pt had knocked urinal onto floor prior to this RN CM entering room. Alexander MOROCHO updated as he is tracking pt I&O's and housekeeping into room to mop floor. Karlos MOROCHO CM
[2021-04-16] MEDS: Pantoprazole Sodium 40 MG Tablet PO (11:53)
[2021-04-16] MEDS: Ferrous Sulfate 325 MG Tablet PO (11:53)
[2021-04-16 12:20] LABS: Bedside Glucose 137 mg/dL (70-110)
--- NOTE | 2021-04-16 13:53 | PCM.PN.HOSP ---
Documented by User: Alexander BEDOLLA 04/16/21 14:10 Subjective Subjective Patient is a 71-year-old male lying in bed get an echocardiogram, alert and oriented x3. Denies any progression of symptoms from admission. Denies chest pain, shortness of breath, palpitations, hemoptysis, sputum production, fever, chills, N/V/D. Objective Data Objective Data Vital Signs: Vital Signs Temp Pulse Resp BP Pulse Ox 98.0 F 70 18 127/73 H 96 04/16/21 08:15 04/16/21 08:15 04/16/21 08:15 04/16/21 08:15 04/16/21 08:15 Oxygen Delivery Method Room Air Weight: 307 lb 15.772 oz Body Mass Index (BMI) 44.1 Intake & Output: Intake and Output for Last 24 Hours 04/14/21 04/15/21 04/16/21 23:59 23:59 23:59 Intake Total 620 / 620 Output Total 1610 / 1610 Balance -990 / -990 Lab / Micro Data Result Diagrams: 04/16/21 03:40 04/16/21 03:40 Labs: Laboratory Results - last 24 hr 04/15/21 04/15/21 04/15/21 20:55 20:55 20:55 WBC 7.1 RBC 3.13 L Hgb 9.2 L Hct 30.5 L MCV 97.4 H MCH 29.4 MCHC 30.2 L RDW Std Deviation 58.2 H RDW Coeff of Raphael 16.2 H Plt Count 208 MPV 9.8 Immature Gran % (Auto) 0.300 Neut % (Auto) 73.1 H Lymph % (Auto) 14.3 L [place] % (Auto) 9.0 Eos % (Auto) 2.9 Baso % (Auto) 0.4 Absolute Neuts (auto) 5.2 Absolute Lymphs (auto) 1.02 Nucleated RBC % 0 Sodium 143 Potassium 4.1 Chloride 111 H Carbon Dioxide 24.0 Anion Gap 8 BUN 39 H Creatinine 1.45 H Estim Creat Clear Calc 47.55 Est GFR (MDRD) Af Amer 62 Est GFR (MDRD) Non-Af 51 L BUN/Creatinine Ratio 26.9 H Glucose 63 L Calcium 8.6 Iron TIBC Iron Saturation Ferritin Total Bilirubin Direct Bilirubin AST ALT Alkaline Phosphatase Troponin I 0.369 H B-Natriuretic Peptide 1773.3 H Total Protein Albumin Globulin Vitamin B12 Folate POC Glucose Blood Type Antibody Screen 04/15/21 04/16/21 04/16/21 20:55 00:30 00:30 WBC RBC Hgb Hct MCV MCH MCHC RDW Std Deviation RDW Coeff of Raphael Plt Count MPV Immature Gran % (Auto) Neut % (Auto) Lymph % (Auto) [place] % (Auto) Eos % (Auto) Baso % (Auto) Absolute Neuts (auto) Absolute Lymphs (auto) Nucleated RBC % Sodium Potassium Chloride Carbon Dioxide Anion Gap BUN Creatinine Estim Creat Clear Calc Est GFR (MDRD) Af Amer Est GFR (MDRD) Non-Af BUN/Creatinine Ratio Glucose Calcium Iron TIBC Iron Saturation Ferritin Total Bilirubin 0.60 Direct Bilirubin 0.28 AST 15 ALT 24 Alkaline Phosphatase 93 Troponin I 0.440 H B-Natriuretic Peptide Total Protein 6.8 Albumin 3.2 Globulin 3.6 Vitamin B12 Folate POC Glucose Blood Type A POSITIVE Antibody Screen NEGATIVE 04/16/21 04/16/21 04/16/21 03:40 03:40 03:40 WBC 6.8 RBC 2.98 L Hgb 8.9 L Hct 29.2 L MCV 98.0 H MCH 29.9 MCHC 30.5 L RDW Std Deviation 57.5 H RDW Coeff of Raphael 16.1 H Plt Count 186 MPV 9.6 Immature Gran % (Auto) 0.300 Neut % (Auto) 72.5 H Lymph % (Auto) 13.8 L [place] % (Auto) 8.8 Eos % (Auto) 4.3 Baso % (Auto) 0.3 Absolute Neuts (auto) 4.9 Absolute Lymphs (auto) 0.94 Nucleated RBC % 0 Sodium 142 Potassium 3.9 Chloride 109 H Carbon Dioxide 27.0 Anion Gap 6 BUN 36 H Creatinine 1.38 H Estim Creat Clear Calc 49.96 Est GFR (MDRD) Af Amer 65 Est GFR (MDRD) Non-Af 54 L BUN/Creatinine Ratio 26.1 H Glucose 104 Calcium 8.1 L Iron 31 L TIBC 282 Iron Saturation 11.0 L Ferritin 83 Total Bilirubin Direct Bilirubin AST ALT Alkaline Phosphatase Troponin I 0.341 H B-Natriuretic Peptide Total Protein Albumin Globulin Vitamin B12 Folate 36.90 POC Glucose Blood Type Antibody Screen 04/16/21 04/16/21 04/16/21 03:40 06:32 11:50 WBC RBC Hgb Hct MCV MCH MCHC RDW Std Deviation RDW Coeff of Raphael Plt Count MPV Immature Gran % (Auto) Neut % (Auto) Lymph % (Auto) [place] % (Auto) Eos % (Auto) Baso % (Auto) Absolute Neuts (auto) Absolute Lymphs (auto) Nucleated RBC % Sodium Potassium Chloride Carbon Dioxide Anion Gap BUN Creatinine Estim Creat Clear Calc Est GFR (MDRD) Af Amer Est GFR (MDRD) Non-Af BUN/Creatinine Ratio Glucose Calcium Iron TIBC Iron Saturation Ferritin Total Bilirubin Direct Bilirubin AST ALT Alkaline Phosphatase Troponin I B-Natriuretic Peptide Total Protein Albumin Globulin Vitamin B12 392 Folate POC Glucose 93 137 H Blood Type Antibody Screen Micro: Microbiology 04/15/21 23:35 Stool Stool Occult Blood (ANA M) - Final Occult Blood Positive Radiography Diagnostic Testing: Radiology Impression Chest X-Ray 04/15/21 21:35 IMPRESSION: Trace airspace disease that I think is likely minimal pulmonary edema and not pneumonia. Due to its diffuse nature. at 2149 Reported and signed by: Иван Kahn MD Electronically Signed: Иван Kahn MD at 21:48 EDT Tel , Service support , Physical Exam Const alert, oriented x3 and no apparent distress HEENT head/scalp atraumatic Head and Scalp: normocephalic Eyes PERRL, EOMs intact bilaterally and conjunctivae normal Neck no lymphadenopathy, supple and no JVD Resp normal respiratory effort, normal air movement and no use of accessory muscles Auscultation: crackles and diminished lung sounds Cardio regular rate, regular rhythm and no JVD GI Inspection: central obesity and fluid wave present Palpation: firm Extremity Extremity Narrative: Edema throughout the abdomen and lower extremities. General Extremity: edema Skin no rashes or lesions noted and no wounds Neuro CN's II-XII intact bilaterally Psych affect normal Assessment & Plan Assessment/Plan (1) Anemia: QUALIFIERS: Anemia type: other cause Other causes of anemia: acute posthemorrhagic Qualified Code(s): D62 - Acute posthemorrhagic anemia (2) Heart failure with reduced ejection fraction: (3) Elevated troponin: (4) Positive occult stool blood test: PLAN: See subjective for patient presentation. Discharge planning; patient would like to return home at discharge, no home health care needs identified at this time. CM/SW following. 1) acute on chronic systolic CHF exacerbation with reduced ejection fraction. Diffuse edema throughout the abdomen and extending down into the lower extremities. chest x-ray on admission demonstrated trace airspace disease secondary to pulmonary edema. EKG on admission demonstrated T wave inversions in lead I and aVL, which is consistent with prior EKGs. Echocardiogram from 11/08/2019 demonstrated normal LV systolic function with LVH, an estimated EF of 55% and stage I diastolic dysfunction. A stress test from 02/19 demonstrated an ejection fraction of 40% with possible small anterior septal/apical infarct. On carvedilol and lisinopril at home. Does not use oxygen at home. Plan; PCU for cardiac telemetry monitoring, continue lisinopril and carvedilol, fluid restriction 1500 mL a day, monitor I's and O's, daily weights, bilateral Alirio wraps to lower extremities, echocardiogram results pending. 2) elevated troponins Likely secondary to #1. 3) acute hemorrhagic anemia. Hemoglobin currently 8.9, baseline greater than 12. Patient is hemodynamically stable at this time. Positive occult stools obtained in the ED. General surgery was consulted delayed at this time. Patient has a prior history of stents placed 1 year ago. Plan; continue aspirin, hold Plavix, no chemoprophylaxis, ferrous sulfate 325 milligrams p.o. daily ordered. 4) CAD status post stents Continue aspirin, hold Plavix as above. 5) Intertrigo Beefy red satellite lesions evident on the lower abdomen on physical exam. Plan; nystatin powder ordered DVT prophylaxis -SCDs, due to #3. Patient seen by Alexander Wallace PA-C, under the supervision of Dr. Boston. Documented by User: Dr. Pravin Boston MD 06/16/21 15:19 Subjective Subjective Patient was admitted with generalized swelling, edema lower extremity, abdominal bloating and upper extremity with history of coronary artery disease, heart failure, pulmonary hypertension and non-STEMI. His groin and the scrotum also swollen. Chest x-ray shows pulmonary venous congestion/mild pulmonary edema Objective Data Lab / Micro Data Result Diagrams: 04/16/21 03:40 04/16/21 03:40 Physical Exam Narrative environmental monitoring specialist shows multiple frequent PVCs, sinus rhythm Physical exam General: Alert, Oriented x3, Cooperative HEENT: Atraumatic, PERRLA, EOMI, Normocephalic Oral: No Gingival or Mucosal Lesions/ Ulcerations Neck: Supple, No JVD, Negative Carotid Bruits Lungs: Air entry diminished in bilateral lung bases. No crepitation/rhonchi Cardiovascular: Irregular rate with frequent PVCs, Normal S1, Normal S2, ejection systolic murmur left second ICS and holosystolic murmur over cardiac apex Abdomen: Bowel Sounds Present, Soft, Non Tender, shifting dullness, ascites : No renal angle tenderness. No suprapubic tenderness. Extremities: Anasarca with bilateral lower extremity up to thigh, scrotal swelling, abdominal wall swelling. Skin: Skin is thick and edematous, venous hypertension Musculoskeletal: No Tenderness to Palpation of Joints or Extremities Neurological: Cranial nerves II-XII grossly intact, Deep Tendon Reflexes 2+/4 and Symmetrical, Neuro grossly intact Psych/Mental Status: Normal Affect, Appropriate. Assessment & Plan Assessment/Plan (1) Heart failure with reduced ejection fraction: (2) Elevated troponin: (3) Chest pain: PLAN: This patient was seen in conjunction with GRAEME Rowell. I have independently interviewed and examined the patient and reviewed pertinent history, examination findings, laboratory and plan of management. I have reviewed the note and agree with the documented findings with the few additional points. In brief, patient is 71-year-old gentleman admitted for shortness of breath, anasarca consistent with acute on chronic systolic heart failure/HFrEF. EKG was nondiagnostic?showed prior T wave inversions in lead I and aVL. Echo from March 2020 shows EF 53%, lower limit of normal, mild concentric LVH, mild to moderate aortic stenosis, mild eccentric MR, LA enlarged. Stress test from 02/19 EF 40% with a small anterior septal/apical infarct. Troponin flat and mildly elevated 0.36, 0.44 and 0.341, suggestive of demand ischemia. Patient on aspirin, atorvastatin, carvedilol, lisinopril, heart failure core measures including intake and output, fluid restriction less than 1500 mL, daily weight monitoring, kidney and electrolytes monitoring. Repeat 2D echo is ordered. Fasting profile ordered as previous one was in November 2020 shows LDL 54. Acute on chronic anemia most probably secondary to GI blood loss. General surgery was consulted. Positive stool occult blood Other comorbidities as mentioned above. Total time of the visit including total time spent in counseling or coordination of care, (more than 50% of the total time, spent in obtaining medical information from nurses and other ancillary care providers,explaining to the patient about labs, imaging, diagnosis and management), , review of labs and imaging is 30 minutes. I have discussed my assessment with GRAEME Rowell and orders have been reviewed. Charges/Coding Visit Charges Inpatient E&M: 49840 Subs Hosp L3
[2021-04-16] MEDS: Nystatin Powder 15gm Bottle 1 APPLIC TOPICAL ×2 (14:38→20:52)
--- NOTE | 2021-04-16 15:00 | CASEMGMT ---
[facility] palliative screening tool completed and pt does not qualify for palliative referral at this time. SStraúl MOROCHO CM
--- NOTE | 2021-04-16 16:13 | CHAPLAIN ---
Type of Pastoral Visit _x__ Initial Visit ___ Follow-up Visit ___ On-call Visit ___ General Patient Visit ___ Spiritual Assessment ___ Family Conference ___ Bereavement ___ Rapid Response ___ Code Blue ___ Other (describe below) Pastoral Care Referral From _x__ Patient ___ Family ___ Nurse ___ Physician ___ Front Office Supervisor ___ Supervisor Shuttle Preparation ___ Other (describe below) Sacrament/Intervention _x__ Active listening ___ Anointing ___ Yarsani ___ Bereavement ___ Communion _x__ Genia exploration ___ _x__ Life review _x__ Prayer ___ Reconciliation ___ Sacrament of Sick _x__ Supportive presence ___ Wedding ___ Other (describe below) Pastoral Comments patient very talkative; pt gives some life review and current situation; pt has a adventism connection;
[2021-04-16 17:21] LABS: Bedside Glucose 150 mg/dL (70-110)
[2021-04-16] MEDS: 0.9% Saline Lock 10 ML Syringe IV (17:30)
[2021-04-16 21:25] LABS: Bedside Glucose 156 mg/dL (70-110)
[2021-04-17] VITALS (14 sets, daily range): BP systolic 103–134; BP diastolic 41–66; PULSE 59–88; RESP 18; TEMP 36.4–36.8; O2SAT 93–100
[2021-04-17 05:23] LABS: Absolute Lymphocyte Count 0.89 X10^3/uL (0.83-4.51); Absolute Neutrophil Count 4.5 X10^3/uL (2.0-7.7); Basophil# 0.03 X10^3/uL; Basophil% 0.5 % (0-1); Eosinophil# 0.28 X10^3/uL; Eosinophils% 4.5 % (0-5); Hematocrit 28.8 % (40-54); Hemoglobin 8.7 g/dL (13.0-16.5); Lymphocyte # 0.89 X10^3/ul (0.83-4.51); Lymphocyte % 14.2 % (19-41); Mean Corp Hgb Conc 30.2 g/dL (32-36); Mean Corpuscular Hgb 29.2 pg (27.0-32.0); Mean Corpuscular Volume 96.6 fL (80-94); Mean Platelet Vol. 9.4 fl (6.2-12.0); Monocyte# 0.55 X10^3/uL; Monocyte% 8.8 % (0-10); NRBC Flagged by Analyzer 0 % (0-5); Neutrophil # 4.51 X10^3/uL (2.7-7.7); Neutrophil % 71.7 % (47-70); Platelet Count 177 K/mm3 (150-450); RBC Distribution Width CV 16.1 % (11.6-14.6); RBC Distribution Width SD 57.1 fl (35.1-43.9); Red Blood Count 2.98 M/mm3 (4.6-6.2); White Blood Count 6.3 K/mm3 (4.4-11.0)
[2021-04-17 05:43] LABS: Anion Gap 4 (5-15); BUN 34 mg/dL (7-18); BUN/Creat Ratio 26.6 RATIO (10-20); Calcium,Total 8.3 mg/dL (8.5-10.1); Chloride 109 mmol/L (98-107); Creatinine, Serum 1.28 mg/dL (0.70-1.30); EST Glomerular Filtration Rate 59 mL/min (>60); Est Glom Filt Rate - Afr Amer 71 mL/min (>60); Estimated Creatinine Clearance 53.86 ml/min; Glucose 131 mg/dL (74-106); Potassium 4.4 mmol/L (3.5-5.1); Sodium Level 142 mmol/L (136-145)
[2021-04-17 06:41] LABS: Bedside Glucose 139 mg/dL (70-110)
[2021-04-17] MEDS: Pantoprazole Sodium 40 MG Tablet PO (09:11)
[2021-04-17] MEDS: Multivitamins,Therapeutic Tablet 1 TABLET PO (09:11)
[2021-04-17] MEDS: Aspirin E.C. 81 MG Tablet PO (09:11)
[2021-04-17] MEDS: Allopurinol 300 MG Tablet PO (09:11)
[2021-04-17] MEDS: Isosorbide Mononitrate 30 MG Tablet PO (09:11)
[2021-04-17] MEDS: Potassium Chloride Oral Tablet 20 MEQ PO (09:11)
[2021-04-17] MEDS: Carvedilol 6.25 MG Tablet PO ×2 (09:11→21:11)
[2021-04-17] MEDS: Furosemide 40 MG/4 ML Vial IV ×2 (09:11→23:25)
[2021-04-17] MEDS: Lisinopril 10 MG Tablet PO (09:11)
[2021-04-17] MEDS: Nystatin Powder 15gm Bottle 1 APPLIC TOPICAL ×2 (09:12→21:11)
--- NOTE | 2021-04-17 11:01 | PCM.PN.HOSP ---
Documented by User: TIMUR Jose 04/17/21 11:20 Subjective Subjective Patient seen and evaluated. Patient sitting in chair eating breakfast no distress noted. Patient denies chest pain, shortness of breath, palpitations, cough, fever, chills. Objective Data Objective Data Vital Signs: Vital Signs Temp Pulse Resp BP Pulse Ox 98.3 F 72 18 134/64 H 100 04/17/21 09:07 04/17/21 09:07 04/17/21 09:07 04/17/21 09:07 04/17/21 09:07 Oxygen Delivery Method Room Air Weight: 297 lb 9.985 oz Body Mass Index (BMI) 44.1 Intake & Output: Intake and Output for Last 24 Hours 04/15/21 04/16/21 04/17/21 23:59 23:59 23:59 Intake Total 1220 / 1220 120 / 120 Output Total 2785 / 2785 600 / 600 Balance -1565 / -1565 -480 / -480 Lab / Micro Data Result Diagrams: 04/17/21 05:12 04/17/21 05:12 Labs: Laboratory Results - last 24 hr 04/16/21 04/16/21 04/16/21 11:50 16:29 20:56 WBC RBC Hgb Hct MCV MCH MCHC RDW Std Deviation RDW Coeff of Raphael Plt Count MPV Immature Gran % (Auto) Neut % (Auto) Lymph % (Auto) [place] % (Auto) Eos % (Auto) Baso % (Auto) Absolute Neuts (auto) Absolute Lymphs (auto) Nucleated RBC % Sodium Potassium Chloride Carbon Dioxide Anion Gap BUN Creatinine Estim Creat Clear Calc Est GFR (MDRD) Af Amer Est GFR (MDRD) Non-Af BUN/Creatinine Ratio Glucose Calcium POC Glucose 137 H 150 H 156 H 04/17/21 04/17/21 04/17/21 05:12 05:12 06:27 WBC 6.3 RBC 2.98 L Hgb 8.7 L Hct 28.8 L MCV 96.6 H MCH 29.2 MCHC 30.2 L RDW Std Deviation 57.1 H RDW Coeff of Raphael 16.1 H Plt Count 177 MPV 9.4 Immature Gran % (Auto) 0.300 Neut % (Auto) 71.7 H Lymph % (Auto) 14.2 L [place] % (Auto) 8.8 Eos % (Auto) 4.5 Baso % (Auto) 0.5 Absolute Neuts (auto) 4.5 Absolute Lymphs (auto) 0.89 Nucleated RBC % 0 Sodium 142 Potassium 4.4 Chloride 109 H Carbon Dioxide 29.0 Anion Gap 4 L BUN 34 H Creatinine 1.28 Estim Creat Clear Calc 53.86 Est GFR (MDRD) Af Amer 71 Est GFR (MDRD) Non-Af 59 L BUN/Creatinine Ratio 26.6 H Glucose 131 H Calcium 8.3 L POC Glucose 139 H Micro: Microbiology 04/15/21 23:35 Stool Stool Occult Blood (ANA M) - Final Occult Blood Positive Physical Exam Const alert, oriented x3 and no apparent distress General Appearance: cooperative and comfortable HEENT normocephalic and head/scalp atraumatic Eyes PERRL and EOMs intact bilaterally Neck full ROM, no lymphadenopathy, supple and no JVD Resp normal respiratory effort, normal air movement and no use of accessory muscles Auscultation: diminished lung sounds diffuse Cardio regular rate, regular rhythm, S1 normal heart sound and S2 normal heart sound Peripheral Pulses: pulses 2+ throughout GI normal to inspection, nondistended, normoactive bowel sounds, soft to palpation and non-tender Extremity normal to inspection, full ROM, normal capillary refill and no clubbing, cyanosis or edema General Extremity: edema bilateral lower extremity Details: mild Peripheral Pulses: Yes pulses 2+ throughout Skin no rashes or lesions noted, no wounds and skin turgor normal Neuro oriented x3 and CN's II-XII intact bilaterally Psych mental status grossly normal, thought process normal, cooperative and affect normal Assessment & Plan Assessment/Plan (1) Heart failure with reduced ejection fraction: (2) Positive occult stool blood test: (3) Anemia: QUALIFIERS: Anemia type: other cause Other causes of anemia: acute posthemorrhagic Qualified Code(s): D62 - Acute posthemorrhagic anemia PLAN: (1) Anemia: QUALIFIERS: Anemia type: other cause Other causes of anemia: acute posthemorrhagic Qualified Code(s): D62 - Acute posthemorrhagic anemia (2) Heart failure with reduced ejection fraction: (3) Elevated troponin: (4) Positive occult stool blood test: PLAN: Discharge planning; patient would like to return home at discharge, no home health care needs identified at this time. CM/SW following. 1) acute on chronic systolic CHF exacerbation with reduced ejection fraction. Mild to moderate edema to the BLE. On carvedilol and lisinopril PCU for cardiac telemetry monitoring Fluid restriction 1500 mL a day Monitor I's and O's, daily weights, Bilateral Alirio wraps to lower extremities Echocardiogram shows normal LV size with normal left ventricular systolic function, EF 45%. 2) Elevated troponins Likely secondary to #1. 3) acute hemorrhagic anemia. Hemoglobin currently 8.7, baseline greater than 12. Patient is hemodynamically stable at this time. Positive occult stools obtained in the ED. Continue aspirin, hold Plavix. Ferrous sulfate 325 milligrams p.o. daily ordered. 4) CAD status post stents Continue aspirin, hold Plavix as above. 5) Intertrigo Pale red satellite lesions evident on the lower abdomen on physical exam. nystatin powder ordered DVT prophylaxis -SCDs, pharmacological prophylaxis contraindicated due to GI bleed. Patient seen by Rachelle Gordon NP, under the supervision of Dr. Boston. Documented by User: Dr. Pravin Boston MD 04/17/21 16:09 Subjective Subjective And wants to go home but he still has significant edema of lower extremities up to thigh, scrotal edema although fluid weight has decreased. Feeling better in regards to shortness of breath. Objective Data Lab / Micro Data Result Diagrams: 04/17/21 05:12 04/17/21 05:12 Physical Exam Narrative classroom monitor shows multiple frequent PVCs, sinus rhythm Physical exam General: Alert, Oriented x3, Cooperative HEENT: Atraumatic, PERRLA, EOMI, Normocephalic Oral: No Gingival or Mucosal Lesions/ Ulcerations Neck: Supple, No JVD, Negative Carotid Bruits Lungs: Air entry diminished in bilateral lung bases. No crepitation/rhonchi Cardiovascular: Irregular rate with frequent PVCs, Normal S1, Normal S2, ejection systolic murmur left second ICS and holosystolic murmur over cardiac apex Abdomen: Bowel Sounds Present, Soft, Non Tender, shifting dullness, ascites : No renal angle tenderness. No suprapubic tenderness. Extremities: Anasarca with bilateral lower extremity up to thigh, scrotal swelling, abdominal wall swelling mild improvement. Skin: Skin is thick and edematous, venous hypertension Musculoskeletal: No Tenderness to Palpation of Joints or Extremities Neurological: Cranial nerves II-XII grossly intact, Deep Tendon Reflexes 2+/4 and Symmetrical, Neuro grossly intact Psych/Mental Status: Normal Affect, Appropriate. Assessment & Plan Assessment/Plan (1) Chest pain: (2) Acute on chronic combined systolic (congestive) and diastolic (congestive) heart failure: PLAN: This patient was seen in conjunction with JOSE ALEJANDRO Bush. I have independently interviewed and examined the patient and reviewed pertinent history, examination findings, laboratory and plan of management. I have reviewed the note and agree with the documented findings with the few additional points. In brief, patient is 71-year-old gentleman admitted for shortness of breath, anasarca consistent with acute on chronic systolic heart failure/HFrEF. EKG was nondiagnostic?showed prior T wave inversions in lead I and aVL. Echo from March 2020 shows EF 53%, lower limit of normal, mild concentric LVH, mild to moderate aortic stenosis, mild eccentric MR, LA enlarged. Stress test from 02/19 EF 40% with a small anterior septal/apical infarct but no reversible ischemia. Troponin flat and mildly elevated 0.36, 0.44 and 0.341, suggestive of demand ischemia. Repeat echo shows decrease in EF 45% with mild aortic stenosis and mild MR. RVSP 34 mmHg. Discussed with the piling setter Dr. Lisa and recommended early follow-up with piling setter and continue medical management. Patient on aspirin, atorvastatin, carvedilol, lisinopril, heart failure core measures including intake and output, fluid restriction less than 1500 mL, daily weight monitoring, kidney and electrolytes monitoring. Repeat 2D echo is ordered. Fasting profile ordered as previous one was in November 2020 shows LDL 54. Acute on chronic anemia most probably secondary to GI blood loss. General surgery was consulted. Positive stool occult blood Other comorbidities as mentioned above. I have discussed my assessment with JOSE ALEJANDRO Bush and orders have been reviewed. Charges/Coding Visit Charges Inpatient E&M: 72994 Subs Hosp L2
[2021-04-17] MEDS: Ferrous Sulfate 325 MG Tablet PO (11:17)
[2021-04-17 12:20] LABS: Bedside Glucose 150 mg/dL (70-110)
[2021-04-17] MEDS: Senna/Docusate Sodium 1 Tablet 2 TABLET PO (14:54)
[2021-04-17] MEDS: Acetaminophen 325 MG Tablet 650 MG PO (14:58)
[2021-04-17] MEDS: Glycerin/Hypromellose/PEG400 15 ml Bottle 1 DRP EACH EYE (16:35)
[2021-04-17 16:40] LABS: Bedside Glucose 162 mg/dL (70-110)
[2021-04-17 16:47] LABS: Magnesium 1.9 mg/dL (1.6-2.6)
[2021-04-17] MEDS: Atorvastatin Calcium 80 MG Tablet PO (21:11)
[2021-04-17 21:21] LABS: Bedside Glucose 138 mg/dL (70-110)
[2021-04-17] MEDS: 0.9% Saline Lock 10 ML Syringe IV (23:25)
[2021-04-18 03:00] VITALS: PULSE 61
[2021-04-18 04:26] VITALS: BP 108/53; PULSE 63; RESP 18; TEMP 36.4; O2SAT 97
[2021-04-18 06:34] VITALS: PULSE 66
[2021-04-18 06:34] LABS: Absolute Lymphocyte Count 0.87 X10^3/uL (0.83-4.51); Absolute Neutrophil Count 4.6 X10^3/uL (2.0-7.7); Basophil# 0.02 X10^3/uL; Basophil% 0.3 % (0-1); Eosinophil# 0.33 X10^3/uL; Eosinophils% 5.2 % (0-5); Hemoglobin 9.3 g/dL (13.0-16.5); Lymphocyte # 0.87 X10^3/ul (0.83-4.51); Lymphocyte % 13.7 % (19-41); Mean Corpuscular Hgb 29.4 pg (27.0-32.0); Mean Corpuscular Volume 98.1 fL (80-94); Mean Platelet Vol. 9.8 fl (6.2-12.0); Monocyte# 0.52 X10^3/uL; Monocyte% 8.2 % (0-10); NRBC Flagged by Analyzer 0 % (0-5); Neutrophil # 4.58 X10^3/uL (2.7-7.7); Neutrophil % 72.3 % (47-70); Platelet Count 183 K/mm3 (150-450); RBC Distribution Width SD 58.4 fl (35.1-43.9); Red Blood Count 3.16 M/mm3 (4.6-6.2); White Blood Count 6.3 K/mm3 (4.4-11.0)
[2021-04-18 06:45] LABS: Bedside Glucose 127 mg/dL (70-110)
[2021-04-18 06:58] LABS: Anion Gap 5 (5-15); BUN 33 mg/dL (7-18); BUN/Creat Ratio 26.4 RATIO (10-20); Calcium,Total 8.5 mg/dL (8.5-10.1); Chloride 106 mmol/L (98-107); Creatinine, Serum 1.25 mg/dL (0.70-1.30); EST Glomerular Filtration Rate 60 mL/min (>60); Est Glom Filt Rate - Afr Amer 73 mL/min (>60); Estimated Creatinine Clearance 55.16 ml/min; Glucose 134 mg/dL (74-106); Potassium 4.5 mmol/L (3.5-5.1); Sodium Level 142 mmol/L (136-145)
[2021-04-18 07:14] VITALS: O2SAT 96
[2021-04-18 07:34] VITALS: BP 123/59; PULSE 65; RESP 18; TEMP 36.6; O2SAT 98
[2021-04-18] MEDS: Allopurinol 300 MG Tablet PO (07:36)
[2021-04-18] MEDS: Multivitamins,Therapeutic Tablet 1 TABLET PO (07:36)
[2021-04-18] MEDS: Aspirin E.C. 81 MG Tablet PO (07:36)
[2021-04-18] MEDS: 0.9% Saline Lock 10 ML Syringe IV (07:36)
[2021-04-18] MEDS: Furosemide 40 MG/4 ML Vial IV (07:36)
[2021-04-18] MEDS: Potassium Chloride Oral Tablet 20 MEQ PO (07:36)
[2021-04-18] MEDS: Glycerin/Hypromellose/PEG400 15 ml Bottle 1 DRP EACH EYE (07:36)
[2021-04-18] MEDS: Spironolactone 25 MG Tablet 12.5 MG PO (09:28)
[2021-04-18] MEDS: Nystatin Powder 15gm Bottle 1 APPLIC TOPICAL (09:28)
[2021-04-18] MEDS: Pantoprazole Sodium 40 MG Tablet PO (09:30)
[2021-04-18] MEDS: Isosorbide Mononitrate 30 MG Tablet PO (09:30)
[2021-04-18] MEDS: Carvedilol 6.25 MG Tablet PO (09:30)
[2021-04-18] MEDS: Lisinopril 10 MG Tablet PO (09:30)
--- NOTE | 2021-04-18 09:56 | PCM.DC ---
Documented by User: TIMUR Jose 04/18/21 10:08 Discharge Instructions Diet Discharge Diet: Low fat / Low cholesterol and 2000 mg Sodium Diet Activity Discharge Activity: Return to Normal Activity Weight Bearing Status: Full weight bearing Dressing / Incision Call your doctor if you observe: Fever of 101 or Higher, Shortness of breath, Swelling in the ankles and Chest pain Follow Up Care Test Results: Test results from this visit will be discussed in further detail at your follow-up appointment, if applicable. Discharge Plan Admission Admit Date/Time: 04/15/21 23:37 Primary Reason for Your Visit: CHF exacerbation Attending Provider: Pravin Boston Primary Care Provider: Boston Figueroa Instructions Patient Instructions: Heart Failure: Tracking Your Weight, Heart Failure: Making Changes to Your Diet, Eating a Low-Salt Diet, ED Chest Pain, Noncardiac Additional Instructions / Restrictions: Patient Problems: Altered Health Status related to Hospitalization Patient Goals: *Optimal Level of Health *Keep Appointments *Medication Compliance *Remain Safe Discharge Orders/Prescriptions Prescriptions: New spironolactone 25 mg Tablet 12.5 mg PO DAILY Qty: 15 RF: 0 torsemide 20 mg tablet 20 mg PO BID Qty: 60 RF: 0 sennosides-docusate sodium [Stool Softener-Stimulant Laxat] 8.6-50 mg Tablet 2 tab PO BID PRN PRN (Reason: Constipation) Qty: 0 RF: 0 pantoprazole 40 mg Tablet,Delayed Release (Dr/Ec) 40 mg PO DAILY Qty: 30 RF: 0 ferrous sulfate [FeroSul] 325 mg (65 mg iron) Tablet 325 mg PO LUNCH Qty: 30 RF: 0 Continued aspirin [Adult Aspirin Regimen] 81 mg tablet,delayed release (DR/EC) 81 mg PO QDAY RF: 0 multivitamin [Daily Multi-Vitamin] tablet 1 tab PO DAILY RF: 0 nitroglycerin 0.4 mg tablet, sublingual 0.4 mg SUBLINGUAL Q5-15M PRN (Reason: CP) RF: 0 glipizide 5 mg tablet 5 mg PO BID RF: 0 allopurinol 300 MG tablet 300 mg PO DAILY RF: 0 carvedilol 6.25 mg tablet 6.25 mg PO BID Qty: 180 RF: 3 atorvastatin 80 mg tablet 80 mg PO QHS Qty: 90 RF: 3 lisinopril 10 mg tablet 10 mg PO DAILY Qty: 90 RF: 3 isosorbide mononitrate 30 mg tablet extended release 24 hr 30 mg PO DAILY Qty: 90 RF: 3 Held clopidogrel 75 mg tablet 75 mg PO DAILY RF: 0 Hold Instructions: Resume on 05/02/21. until follow up with PCP Discontinued pioglitazone 15 MG tablet 15 mg PO DAILY RF: 0 furosemide 40 mg tablet 40 mg PO DAILY Qty: 90 RF: 3 Referrals / Follow Up: Boston Figueroa MD [Primary Care Provider] - 04/23/21 2:40 pm Emeterio Hutchinson MD [STAFF PHYSICIAN] - 05/14/21 10:30 am (for management of diuretics) Disposition Disposition (needs filled in before D/C Order can be placed): Home, self care Documented by User: Dr. Pravin Boston MD 04/18/21 16:19 Discharge Instructions Diet Discharge Diet: Low fat / Low cholesterol and 1800 Calorie Control Diet Activity Weight Bearing Status: Weight bearing as tolerated Dressing / Incision Call your doctor if you observe: Fever of 101 or Higher, Coldness, Increased Pain, Numbness or Tingling, Change in Color, Inability to urinate, Inability to have a bowel movement, Shortness of breath, Dizziness, Fainting spells, Swelling in the ankles, Chest pain, Prolonged hiccupping, Increased palpitations (irregular heartbeat), Calf discomfort and Uncontrolled pain Discharge Plan Admission Admit Date/Time: 04/15/21 23:37 Primary Reason for Your Visit: CHF exacerbation Attending Provider: Pravin Boston Primary Care Provider: Boston Figueroa Instructions Patient Instructions: Heart Failure: Tracking Your Weight, Heart Failure: Making Changes to Your Diet, Eating a Low-Salt Diet, ED Chest Pain, Noncardiac Additional Instructions / Restrictions: Patient Problems: Altered Health Status related to Hospitalization Patient Goals: *Optimal Level of Health *Keep Appointments *Medication Compliance *Remain Safe Discharge Orders/Prescriptions Prescriptions: New spironolactone 25 mg Tablet 12.5 mg PO DAILY Qty: 15 RF: 0 torsemide 20 mg tablet 20 mg PO BID Qty: 60 RF: 0 sennosides-docusate sodium [Stool Softener-Stimulant Laxat] 8.6-50 mg Tablet 2 tab PO BID PRN PRN (Reason: Constipation) Qty: 0 RF: 0 pantoprazole 40 mg Tablet,Delayed Release (Dr/Ec) 40 mg PO DAILY Qty: 30 RF: 0 ferrous sulfate [FeroSul] 325 mg (65 mg iron) Tablet 325 mg PO LUNCH Qty: 30 RF: 0 Continued aspirin [Adult Aspirin Regimen] 81 mg tablet,delayed release (DR/EC) 81 mg PO QDAY RF: 0 multivitamin [Daily Multi-Vitamin] tablet 1 tab PO DAILY RF: 0 nitroglycerin 0.4 mg tablet, sublingual 0.4 mg SUBLINGUAL Q5-15M PRN (Reason: CP) RF: 0 glipizide 5 mg tablet 5 mg PO BID RF: 0 allopurinol 300 MG tablet 300 mg PO DAILY RF: 0 carvedilol 6.25 mg tablet 6.25 mg PO BID Qty: 180 RF: 3 atorvastatin 80 mg tablet 80 mg PO QHS Qty: 90 RF: 3 lisinopril 10 mg tablet 10 mg PO DAILY Qty: 90 RF: 3 isosorbide mononitrate 30 mg tablet extended release 24 hr 30 mg PO DAILY Qty: 90 RF: 3 Held clopidogrel 75 mg tablet 75 mg PO DAILY RF: 0 Hold Instructions: Resume on 05/02/21. until follow up with PCP Discontinued pioglitazone 15 MG tablet 15 mg PO DAILY RF: 0 furosemide 40 mg tablet 40 mg PO DAILY Qty: 90 RF: 3 Referrals / Follow Up: Boston Figueroa MD [Primary Care Provider] - 04/23/21 2:40 pm Emeterio Hutchinson MD [STAFF PHYSICIAN] - 05/14/21 10:30 am (for management of diuretics) Disposition Disposition (needs filled in before D/C Order can be placed): Home, self care
--- NOTE | 2021-04-18 10:08 | DS.PCM_ITS ---
Documented by User: TIMUR Jose 04/18/21 10:20 Providers Date of Admission: 04/15/21 Primary Care Physician: Dr. Boston Figueroa MD Reason For Visit: ACUTE EXACERBATION OF HEART FAILURE WITH Diagnosis Discharge Diagnosis (1) Chest pain: Status: Acute Code(s): R07.9 - Chest pain, unspecified (2) Acute on chronic combined systolic (congestive) and diastolic (congestive) heart failure: Status: Chronic Code(s): I50.43 - Acute on chronic combined systolic (congestive) and diastolic (congestive) heart failure Medications at Discharge Home Medications allopurinol 300 mg PO DAILY 04/10/16 aspirin 81 mg tablet,delayed release 81 mg PO QDAY 04/14/18 multivitamin 1 tab PO DAILY 01/25/19 nitroglycerin 0.4 mg sublingual tablet 0.4 mg SUBLINGUAL Q5-15M PRN 01/25/19 glipizide 5 mg tablet 5 mg PO BID tab 05/23/19 carvedilol 6.25 mg tablet 6.25 mg PO BID #180 tab 01/18/20 atorvastatin 80 mg tablet 80 mg PO QHS #90 tab 04/08/20 lisinopril 10 mg tablet 10 mg PO DAILY #90 tab 04/24/20 isosorbide mononitrate 30 mg tablet,extended release 24 hr 30 mg PO DAILY #90 tab 05/27/20 clopidogrel 75 mg PO DAILY 04/16/21 ferrous sulfate [FeroSul] 325 mg PO LUNCH #30 tab 04/18/21 pantoprazole 40 mg PO DAILY #30 tab 04/18/21 sennosides-docusate sodium [Stool Softener-Stimulant Laxat] 2 tab PO BID PRN PRN #0 tab 04/18/21 spironolactone 12.5 mg PO DAILY #15 tab 04/18/21 torsemide 20 mg PO BID #60 tab 04/18/21 Hospital Course Operations None Procedures EKG Summary of Care Provided Minutes Spent on Discharge: 35 Hospital Course: (1) Anemia: QUALIFIER: Anemia type: other cause Other causes of anemia: acute posthemorrhagic Qualified Code(s): D62 - Acute posthemorrhagic anemia (2) Heart failure with reduced ejection fraction: (3) Elevated troponin: (4) Positive occult stool blood test: 1) acute on chronic systolic CHF exacerbation with reduced ejection fraction. Mild edema to the BLE, much improved with diuretics and arcadio wraps Continue carvedilol and lisinopril Fluid restriction 1500 mL a day Continue daily weights at home Echocardiogram shows normal LV size with normal left ventricular systolic function, EF 45%. 2) Elevated troponins Likely secondary to #1. 3) acute hemorrhagic anemia. Hemoglobin currently 9.3, baseline greater than 12. Patient is hemodynamically stable at this time. Positive occult stools obtained in the ED, no evidence of bleeding noted. Continue aspirin, hold Plavix. Ferrous sulfate 325 milligrams p.o. daily ordered. 4) CAD status post stents Continue aspirin, hold Plavix until follow up with primary care. DVT prophylaxis -SCDs, pharmacological prophylaxis contraindicated due to GI bleed. Patient seen by Rachelle Gordon NP, under the supervision of Dr. Boston. Physical Exam Const alert, oriented x3 and no apparent distress HEENT normocephalic and head/scalp atraumatic Eyes conjunctivae normal and no scleral icterus Neck full ROM, no lymphadenopathy, supple and no JVD General: trachea midline Resp normal respiratory effort, normal air movement, no use of accessory muscles and clear to auscultation bilaterally Cardio regular rate, regular rhythm, S1 normal heart sound and S2 normal heart sound GI normal to inspection, nondistended, normoactive bowel sounds, soft to palpation and non-tender Extremity normal to inspection, full ROM, normal capillary refill and no clubbing, cyanosis or edema General Extremity: edema bilateral lower extremity Details: mild Peripheral Pulses: Yes pulses 2+ throughout Skin no rashes or lesions noted and no wounds Neuro oriented x3, moves all extremities and no focal motor deficits Psych mental status grossly normal, thought process normal, cooperative, affect normal and speech normal Weight / BMI Weight Weight: 296 lb 8.348 oz Body Mass Index (BMI) 44.1 ABG / Lab / Microbiology Data Result Diagrams: 04/18/21 06:16 04/18/21 06:16 Laboratory: Laboratory Results - last 24 hr 04/17/21 04/17/21 04/17/21 05:12 12:02 16:32 WBC RBC Hgb Hct MCV MCH MCHC RDW Std Deviation RDW Coeff of Raphael Plt Count MPV Immature Gran % (Auto) Neut % (Auto) Lymph % (Auto) [place] % (Auto) Eos % (Auto) Baso % (Auto) Absolute Neuts (auto) Absolute Lymphs (auto) Nucleated RBC % Sodium Potassium Chloride Carbon Dioxide Anion Gap BUN Creatinine Estim Creat Clear Calc Est GFR (MDRD) Af Amer Est GFR (MDRD) Non-Af BUN/Creatinine Ratio Glucose Calcium Magnesium 1.9 POC Glucose 150 H 162 H 04/17/21 04/18/21 04/18/21 21:08 06:16 06:16 WBC 6.3 RBC 3.16 L Hgb 9.3 L Hct 31.0 L MCV 98.1 H MCH 29.4 MCHC 30.0 L RDW Std Deviation 58.4 H RDW Coeff of Raphael 16.0 H Plt Count 183 MPV 9.8 Immature Gran % (Auto) 0.300 Neut % (Auto) 72.3 H Lymph % (Auto) 13.7 L [place] % (Auto) 8.2 Eos % (Auto) 5.2 H Baso % (Auto) 0.3 Absolute Neuts (auto) 4.6 Absolute Lymphs (auto) 0.87 Nucleated RBC % 0 Sodium 142 Potassium 4.5 Chloride 106 Carbon Dioxide 31.0 Anion Gap 5 BUN 33 H Creatinine 1.25 Estim Creat Clear Calc 55.16 Est GFR (MDRD) Af Amer 73 Est GFR (MDRD) Non-Af 60 BUN/Creatinine Ratio 26.4 H Glucose 134 H Calcium 8.5 Magnesium POC Glucose 138 H 04/18/21 06:32 WBC RBC Hgb Hct MCV MCH MCHC RDW Std Deviation RDW Coeff of Raphael Plt Count MPV Immature Gran % (Auto) Neut % (Auto) Lymph % (Auto) [place] % (Auto) Eos % (Auto) Baso % (Auto) Absolute Neuts (auto) Absolute Lymphs (auto) Nucleated RBC % Sodium Potassium Chloride Carbon Dioxide Anion Gap BUN Creatinine Estim Creat Clear Calc Est GFR (MDRD) Af Amer Est GFR (MDRD) Non-Af BUN/Creatinine Ratio Glucose Calcium Magnesium POC Glucose 127 H Microbiology: Microbiology 04/15/21 23:35 Stool Stool Occult Blood (ANA M) - Final Occult Blood Positive Radiography Diagnostic Testing: Radiology Impression Echocardiogram 04/16/21 00:49 Interpretation Summary Normal LV size. Left ventricular systolic function is normal. The estimated ejection fraction is 45 %. [place] : Hypokinetic. Mild aortic stenosis. Moderate focal aortic valve calcification. Calculated aortic valve area (continuity equation) is 1.6 cm2. Contrast injection was performed. Compared to previous study, the left ventricular systolic function is the same.. Ordering Physician: Lynne^^^ Referring Physician: Boston Figueroa Performed By: Rosy Hilton, MYRIAM, RVT D/C Instructions Discharge Diet: Low fat / Low cholesterol and 2000 mg Sodium Diet Weight Bearing Status: Full weight bearing Call your doctor if you observe: Fever of 101 or Higher, Shortness of breath, Swelling in the ankles and Chest pain Meaningful Use Info Meaningful Use Diagnoses (Choose all that apply): None applicable and CHF CHF [place]IO/ARB ordered at discharge?: Yes Documented LVEF (%): 45 Discharge Plan Admission Admit Date/Time: 04/15/21 23:37 Primary Reason for Your Visit: CHF exacerbation Attending Provider: Pravin Boston Primary Care Provider: Boston Figueroa Instructions Patient Instructions: Heart Failure: Tracking Your Weight, Heart Failure: Making Changes to Your Diet, Eating a Low-Salt Diet, ED Chest Pain, Noncardiac Additional Instructions / Restrictions: Patient Problems: Altered Health Status related to Hospitalization Patient Goals: *Optimal Level of Health *Keep Appointments *Medication Compliance *Remain Safe Discharge Orders/Prescriptions Prescriptions: New spironolactone 25 mg Tablet 12.5 mg PO DAILY Qty: 15 RF: 0 torsemide 20 mg tablet 20 mg PO BID Qty: 60 RF: 0 sennosides-docusate sodium [Stool Softener-Stimulant Laxat] 8.6-50 mg Tablet 2 tab PO BID PRN PRN (Reason: Constipation) Qty: 0 RF: 0 pantoprazole 40 mg Tablet,Delayed Release (Dr/Ec) 40 mg PO DAILY Qty: 30 RF: 0 ferrous sulfate [FeroSul] 325 mg (65 mg iron) Tablet 325 mg PO LUNCH Qty: 30 RF: 0 Continued aspirin [Adult Aspirin Regimen] 81 mg tablet,delayed release (DR/EC) 81 mg PO QDAY RF: 0 multivitamin [Daily Multi-Vitamin] tablet 1 tab PO DAILY RF: 0 nitroglycerin 0.4 mg tablet, sublingual 0.4 mg SUBLINGUAL Q5-15M PRN (Reason: CP) RF: 0 glipizide 5 mg tablet 5 mg PO BID RF: 0 allopurinol 300 MG tablet 300 mg PO DAILY RF: 0 carvedilol 6.25 mg tablet 6.25 mg PO BID Qty: 180 RF: 3 atorvastatin 80 mg tablet 80 mg PO QHS Qty: 90 RF: 3 lisinopril 10 mg tablet 10 mg PO DAILY Qty: 90 RF: 3 isosorbide mononitrate 30 mg tablet extended release 24 hr 30 mg PO DAILY Qty: 90 RF: 3 Held clopidogrel 75 mg tablet 75 mg PO DAILY RF: 0 Hold Instructions: Resume on 05/02/21. until follow up with PCP Discontinued pioglitazone 15 MG tablet 15 mg PO DAILY RF: 0 furosemide 40 mg tablet 40 mg PO DAILY Qty: 90 RF: 3 Referrals / Follow Up: Boston Figueroa MD [Primary Care Provider] - 04/23/21 2:40 pm Emeterio Hutchinson MD [STAFF PHYSICIAN] - 05/14/21 10:30 am (for management of diuretics) Disposition Disposition (needs filled in before D/C Order can be placed): Home, self care Documented by User: Dr. Pravin Boston MD 04/18/21 16:24 Providers Date of Admission: 04/15/21 Reason For Visit: ACUTE EXACERBATION OF HEART FAILURE WITH Medications at Discharge Home Medications allopurinol 300 mg PO DAILY 04/10/16 aspirin 81 mg tablet,delayed release 81 mg PO QDAY 04/14/18 multivitamin 1 tab PO DAILY 01/25/19 nitroglycerin 0.4 mg sublingual tablet 0.4 mg SUBLINGUAL Q5-15M PRN 01/25/19 glipizide 5 mg tablet 5 mg PO BID tab 05/23/19 carvedilol 6.25 mg tablet 6.25 mg PO BID #180 tab 01/18/20 atorvastatin 80 mg tablet 80 mg PO QHS #90 tab 04/08/20 lisinopril 10 mg tablet 10 mg PO DAILY #90 tab 04/24/20 isosorbide mononitrate 30 mg tablet,extended release 24 hr 30 mg PO DAILY #90 tab 05/27/20 clopidogrel 75 mg PO DAILY 04/16/21 ferrous sulfate [FeroSul] 325 mg PO LUNCH #30 tab 04/18/21 pantoprazole 40 mg PO DAILY #30 tab 04/18/21 sennosides-docusate sodium [Stool Softener-Stimulant Laxat] 2 tab PO BID PRN PRN #0 tab 04/18/21 spironolactone 12.5 mg PO DAILY #15 tab 04/18/21 torsemide 20 mg PO BID #60 tab 04/18/21 Hospital Course Summary of Care Provided Hospital Course: This patient was seen in conjunction with JOSE ALEJANDRO Bush. I have independently interviewed and examined the patient and reviewed pertinent history, examination findings, laboratory and plan of management. I have reviewed the note and agree with the documented findings with the few additional points. In brief, patient is 71-year-old gentleman admitted for shortness of breath, anasarca consistent with acute on chronic systolic heart failure/HFrEF. EKG was nondiagnostic?showed prior T wave inversions in lead I and aVL. Echo from March 2020 shows EF 53%, lower limit of normal, mild concentric LVH, mild to moderate aortic stenosis, mild eccentric MR, LA enlarged. Stress test from 02/19 EF 40% with a small anterior septal/apical infarct but no reversible ischemia. Troponin flat and mildly elevated 0.36, 0.44 and 0.341, suggestive of demand ischemia. Repeat echo shows decrease in EF 45% with mild aortic stenosis and mild MR. RVSP 34 mmHg. Discussed with the database security administrator Dr. Lisa and recommended early follow-up with database security administrator and continue medical management. Patient on aspirin, atorvastatin, carvedilol, lisinopril, heart failure core measures including intake and output, fluid restriction less than 1500 mL, daily weight monitoring, kidney and electrolytes monitoring. Fasting profile ordered as previous one was in November 2020 shows LDL 54. Repeat ECHO shows EF 45% AND Mild MR AND . Patient is discharged on Torsemide and Spironolactone. He is referred to follow Supply Technician to manage diuretics and folow BMP and kidney function. Acute on chronic anemia most probably secondary to GI blood loss. General surgery was consulted. Positive stool occult blood. Plavix is on hold and he had stent more than 1 year. Follow up PCP Other comorbidities as mentioned above. Discharge Instructions and Meds reconciliation done. I have discussed my assessment with JOS EALEJANDRO Bush and orders have been reviewed. ABG / Lab / Microbiology Data Result Diagrams: 04/18/21 06:16 04/18/21 06:16 Discharge Plan Admission Admit Date/Time: 04/15/21 23:37 Primary Reason for Your Visit: CHF exacerbation Attending Provider: Pravin Boston Primary Care Provider: Boston Figueroa Instructions Patient Instructions: Heart Failure: Tracking Your Weight, Heart Failure: Making Changes to Your Diet, Eating a Low-Salt Diet, ED Chest Pain, Noncardiac Additional Instructions / Restrictions: Patient Problems: Altered Health Status related to Hospitalization Patient Goals: *Optimal Level of Health *Keep Appointments *Medication Compliance *Remain Safe Discharge Orders/Prescriptions Prescriptions: New spironolactone 25 mg Tablet 12.5 mg PO DAILY Qty: 15 RF: 0 torsemide 20 mg tablet 20 mg PO BID Qty: 60 RF: 0 sennosides-docusate sodium [Stool Softener-Stimulant Laxat] 8.6-50 mg Tablet 2 tab PO BID PRN PRN (Reason: Constipation) Qty: 0 RF: 0 pantoprazole 40 mg Tablet,Delayed Release (Dr/Ec) 40 mg PO DAILY Qty: 30 RF: 0 ferrous sulfate [FeroSul] 325 mg (65 mg iron) Tablet 325 mg PO LUNCH Qty: 30 RF: 0 Continued aspirin [Adult Aspirin Regimen] 81 mg tablet,delayed release (DR/EC) 81 mg PO QDAY RF: 0 multivitamin [Daily Multi-Vitamin] tablet 1 tab PO DAILY RF: 0 nitroglycerin 0.4 mg tablet, sublingual 0.4 mg SUBLINGUAL Q5-15M PRN (Reason: CP) RF: 0 glipizide 5 mg tablet 5 mg PO BID RF: 0 allopurinol 300 MG tablet 300 mg PO DAILY RF: 0 carvedilol 6.25 mg tablet 6.25 mg PO BID Qty: 180 RF: 3 atorvastatin 80 mg tablet 80 mg PO QHS Qty: 90 RF: 3 lisinopril 10 mg tablet 10 mg PO DAILY Qty: 90 RF: 3 isosorbide mononitrate 30 mg tablet extended release 24 hr 30 mg PO DAILY Qty: 90 RF: 3 Held clopidogrel 75 mg tablet 75 mg PO DAILY RF: 0 Hold Instructions: Resume on 05/02/21. until follow up with PCP Discontinued pioglitazone 15 MG tablet 15 mg PO DAILY RF: 0 furosemide 40 mg tablet 40 mg PO DAILY Qty: 90 RF: 3 Referrals / Follow Up: Boston Figueroa MD [Primary Care Provider] - 04/23/21 2:40 pm Emeterio Hutchinson MD [STAFF PHYSICIAN] - 05/14/21 10:30 am (for management of diuretics) Disposition Disposition (needs filled in before D/C Order can be placed): Home, self care Charges/Coding Visit Charges Inpatient E&M: 20664 Disch Hosp
--- NOTE | 2021-04-18 10:35 | CASEMGMT ---
Pt has been on room air since admission and pt declines need for any further resources/therapy at this time. Pt ready for d/c. Karlos MOROCHO CM
[2021-04-18] MEDS: Ferrous Sulfate 325 MG Tablet PO (10:57)
--- NOTE | 2021-04-18 11:11 | PHA.DC.MC ---
Pharmacy Service has performed discharge medication reconciliation and counseling for this patient. The patient was counseled on the following discharge medications and changes in medications for homegoing were reviewed. 1. PROTONIX 2. ALDACTONE 3. TORSEMIDE 4. FERROUS SULFATE The Reason for Use, instructions for use, and potential side effects were reviewed for all new medications. The patient's questions regarding all of their medications were answered. The patient was able to verbally demonstrate an understanding of their discharge medications. Home Medications allopurinol 300 mg PO DAILY 04/10/16 aspirin 81 mg tablet,delayed release 81 mg PO QDAY 04/14/18 multivitamin 1 tab PO DAILY 01/25/19 nitroglycerin 0.4 mg sublingual tablet 0.4 mg SUBLINGUAL Q5-15M PRN 01/25/19 glipizide 5 mg tablet 5 mg PO BID tab 05/23/19 carvedilol 6.25 mg tablet 6.25 mg PO BID #180 tab 01/18/20 atorvastatin 80 mg tablet 80 mg PO QHS #90 tab 04/08/20 lisinopril 10 mg tablet 10 mg PO DAILY #90 tab 04/24/20 isosorbide mononitrate 30 mg tablet,extended release 24 hr 30 mg PO DAILY #90 tab 05/27/20 clopidogrel 75 mg PO DAILY 04/16/21 ferrous sulfate [FeroSul] 325 mg PO LUNCH #30 tab 04/18/21 pantoprazole 40 mg PO DAILY #30 tab 04/18/21 sennosides-docusate sodium [Stool Softener-Stimulant Laxat] 2 tab PO BID PRN PRN #0 tab 04/18/21 spironolactone 12.5 mg PO DAILY #15 tab 04/18/21 torsemide 20 mg PO BID #60 tab 04/18/21 The patient's discharge medication list was reviewed for discrepancies and discrepancies were resolved.
--- NOTE | 2021-04-22 14:32 | CASEMGMT ---
BAILEE CALIX Discharge Follow-up Phone Call: FOSTER: [place] Strata: 3 Call Date: 04/22/21 Discharge Date: 04/18/21 Time of Call: 1430 Duration: 1 Admitting Diagnosis: Acute exacerbation of heart failure BAILEE CALIX attempted to complete follow-up phone call after recent hospitalization. No answer, voice message left with return call back. Patient had follow-up appts scheduled prior to discharge.
== END 2021-04-18 11:23 | disposition home or self-care (01) | DRG 292 ==
LOC: ED 23:18 → PCU 04-16 00:28
PROVIDERS: Nurse Practitioner Family; Physician Assistant; Admitting Provider Hospitalist; Emergency Provider Student in an Organized Health Care Education/Training Program; PCP Family Medicine; Visit Provider Internal Medicine
DX: I11.0 Hypertensive heart disease with heart failure (principal); Z68.41 Body mass index [BMI] 40.0-44.9, adult; K92.2 Gastrointestinal hemorrhage, unspecified; D62 Acute posthemorrhagic anemia; I50.43 Acute on chronic combined systolic (congestive) and diastolic (congestive) heart failure; E11.9 Type 2 diabetes mellitus without complications; N50.89 Other specified disorders of the male genital organs; I25.10 Atherosclerotic heart disease of native coronary artery without angina pectoris; I25.5 Ischemic cardiomyopathy; I27.21 Secondary pulmonary arterial hypertension; I35.0 Nonrheumatic aortic (valve) stenosis; E78.5 Hyperlipidemia, unspecified; L30.4 Erythema intertrigo; M19.90 Unspecified osteoarthritis, unspecified site; M10.9 Gout, unspecified; G47.33 Obstructive sleep apnea (adult) (pediatric); E66.01 Morbid (severe) obesity due to excess calories; Z79.02 Long term (current) use of antithrombotics/antiplatelets; Z79.82 Long term (current) use of aspirin; Z79.84 Long term (current) use of oral hypoglycemic drugs; Z79.899 Other long term (current) drug therapy; I25.2 Old myocardial infarction; Z87.891 Personal history of nicotine dependence; Z95.5 Presence of coronary angioplasty implant and graft; R19.5 Other fecal abnormalities; Z86.16 Personal history of COVID-19
CPT/HCPCS: 36415; 71045; 80048; 80076; 82274; 82607; 82728; 82746; 82962; 83540; 83550; 83735; 83880; 84484; 85025; 86850; 86900; 86901; 93005; 93306; 97162; 97166; 97530; 97802; 99285; Q9957; A4216; C8929; J1940; J3490

== ENCOUNTER 2021-05-03 18:28 | Inpatient (IN) | payer MEDICARE, SELFPAY ==
[2020-03-07 09:49] VITALS: BMI 41.8
[2021-04-16 00:56] VITALS: BMI 44.1
[2021-05-03] VITALS (8 sets, daily range): BP systolic 91–117; BP diastolic 55–68; PULSE 95–103; RESP 16–23; TEMP 36.3–37.2; O2SAT 92–99; BMI 40.1
--- NOTE | 2021-05-03 18:31 | EKG12_ITS ---
Test Reason : CHEST PAIN Blood Pressure : / mmHG Vent. Rate : 091 BPM Atrial Rate : 091 BPM P-R Int : 166 ms QRS Dur : 100 ms QT Int : 376 ms P-R-T Axes : 042 -21 114 degrees QTc Int : 462 ms Sinus rhythm with Premature atrial complexes Septal infarct , age undetermined ST & T wave abnormality, consider lateral ischemia Abnormal ECG When compared with ECG of 03-MAY-2021 20:15, MANUAL COMPARISON REQUIRED, DATA IS UNCONFIRMED Confirmed by REYNA MOYER, CINTHYA ([id number]), editorial clerk EDYTA NEIL ([id number]) on 05/13/2021 7:45:48 AM Referred By: ACOSTA Confirmed By:CINTHYA ORELLANA MD
[2021-05-03] MEDS: Aspirin 81 MG TAB.CHEW 324 MG PO (18:37)
--- NOTE | 2021-05-03 18:40 | EDS_ITS ---
HPI History of Present Illness Chief Complaint: Chest Pain Informant: patient Onset/Context/Timing Onset: Today and Hours Activity at onset: gradual Timing: Continuous Quality: Positive for Aching and Heaviness Location: Left Chest Current Severity: Mild Maximum Severity: Mild Worsened By: Nothing Relieved By: Nothing Associated Symptoms: Positive for Nausea; Negative for Vomiting, Diaphoresis and Dyspnea Narrative Narrative: 71-year-old male known history of CAD, IN and multiple cardiac stents around 10. History of CHF and also diabetes. Said about half an hour to an hour ago he was eating developed left-sided chest discomfort. Associated nausea but no vomiting or diarrhea. No fever. She is always short of breath so he did not really notice a significant difference there. He denies any diaphoresis. He denies any radiation of the pain to his neck, jaw or left arm. He has never had a DVT or PE. Currently he is off all blood thinners except a daily aspirin which he took today. Prior Similar Symptoms: Yes Recent Illness/Hospitalization: No CVD Risk Factors: Positive for Hypertension, Diabetes, Hypercholesterolemia and Smoking PE Risk Factors: Negative for Recent Travel/Surgery, Recent Immobilization, Prior DVT or PE, Cancer and OCP + Smoking + >/=35 TAD Risk Factors: Negative for Marfan's Syndrome and Hypertension [facility] Medical History (Updated 05/03/21 @ 22:[address] Braxton Groves MD) Acute on chronic combined systolic (congestive) and diastolic (congestive) heart failure Atherosclerosis of coronary artery without angina pectoris Bilateral lower extremity edema Dermatitis Diastolic dysfunction Elevated liver enzymes Essential (primary) hypertension Fatty liver Gout Hyperlipidemia Ischemic cardiomyopathy Morbid obesity Morbid obesity with BMI of 40.0-44.9, adult Non-rheumatic aortic stenosis NSTEMI (non-ST elevated myocardial infarction) (02/25/19) Obstructive sleep apnea Osteoarthritis Secondary pulmonary arterial hypertension Type 2 diabetes mellitus Home Medications allopurinol 300 mg PO DAILY 04/10/16 [History Last Taken 05/05/16] aspirin 81 mg tablet,delayed release 81 mg PO QDAY 04/14/18 [History Last Taken 01/24/20] multivitamin 1 tab PO DAILY 01/25/19 [History Last Taken Unknown] nitroglycerin 0.4 mg sublingual tablet 0.4 mg SUBLINGUAL Q5-15M PRN 01/25/19 [History Last Taken Unknown] glipizide 5 mg tablet 5 mg PO BID tab 05/23/19 [History Last Taken Unknown] carvedilol 6.25 mg tablet 6.25 mg PO BID #180 tab 01/18/20 [Rx Last Taken Unknown] atorvastatin 80 mg tablet 80 mg PO QHS #90 tab 04/08/20 [Rx Last Taken Unknown] lisinopril 10 mg tablet 10 mg PO DAILY #90 tab 04/24/20 [Rx Last Taken Unknown] isosorbide mononitrate 30 mg tablet,extended release 24 hr 30 mg PO DAILY #90 tab 05/27/20 [Rx Last Taken Unknown] clopidogrel 75 mg PO DAILY 04/16/21 [History Last Taken Unknown] ferrous sulfate [FeroSul] 325 mg PO LUNCH #30 tab 04/18/21 [Rx Last Taken Unknown] pantoprazole 40 mg PO DAILY #30 tab 04/18/21 [Rx Last Taken Unknown] sennosides-docusate sodium [Stool Softener-Stimulant Laxat] 2 tab PO BID PRN PRN #0 tab 04/18/21 [Rx Last Taken Unknown] spironolactone 12.5 mg PO DAILY #15 tab 04/18/21 [Rx Last Taken Unknown] torsemide 20 mg PO BID #60 tab 04/18/21 [Rx Last Taken Unknown] Allergy/AdvReac Type Severity Reaction Status Date / Time metformin AdvReac Elevated Verified 05/03/21 18:41 LDH and anion gap Family History Mother , Age 80 Diabetes Hypertension Father , Age 55, coma Diabetes Hypertension Sister Hypertension Brother Diabetes Hypertension Cancer, Onset Age: 50 prostate cancer CAD (coronary artery disease) no significant family history Surgical History History of appendectomy History of coronary artery stent placement (01/24/20) History of herniorrhaphy History of left heart catheterization (12/29/18) History of tonsillectomy History of total knee replacement (TKR) no surgical history Social History household members: children Smoking Status: Former smoker quit date: 01/31/11 alcohol intake: current alcohol intake frequency: holidays/special occasions only substance use type: does not use caffeine: Yes Type: coffee ROS ROS ED ROS Narrative Denies recent illness. Review of Systems ROS Unobtainable: Denies due to encephalopathy Constitutional Constitutional ED: Denies chills or fever(s) Eyes Eyes: Denies none ENT ENT ED: Denies ear pain or sore throat Cardiovascular Cardiovascular: Reports as per HPI and chest pain; Denies palpitations Respiratory/Chest Respiratory/Chest: Reports dyspnea; Denies cough or sputum Gastrointestinal Gastrointestinal: Reports nausea; Denies abdominal pain, constipation, diarrhea, melena or vomiting Genitourinary Genitourinary ED: Denies dysuria or hematuria Musculoskeletal Musculoskeletal: Denies myalgias Integumentary Denies rash Neurologic Neurologic: Denies headache(s) Psychiatric Psychiatric: Denies depression Endocrine Endocrinology: Denies polyuria Hematologic/Lymphatic Hematologic/Lymphatic: Denies easy bruising Allergic/Immunologic Allergic/Immunologic ED: Denies urticaria EXAM Physical Exam Narrative Exam Narrative: Older male initial blood pressure 98/59. He is in no distress. Is sitting upright in bed talking without difficulty. Pulse ox 96% on room air no hypoxia. HEENT exam unremarkable. Lungs clear to auscultation bilaterally. Heart regular rate and rhythm no murmur rate about 90. Chest wall nontender. No ecchymosis or bruising. Abdomen soft nontender. Obese. Moving all 4 extremities. Trace edema bilaterally. Calves are nontender without cords. Neurologically is awake and alert with no focal motor deficits. Const Vital Signs: 05/03/21 18:29 05/03/21 18:33 05/03/21 18:40 Temperature 97.4 F L Temperature Source Temporal Pulse Rate 99 Respiratory Rate 16 Respiratory Effort Normal Blood Pressure 98/59 L Blood Pressure Mean 72 Pulse Ox 96 99 Oxygen Delivery Method Room Air Room Air 05/03/21 19:23 05/03/21 20:05 05/03/21 22:00 Temperature Temperature Source Pulse Rate 101 H 102 H 95 Respiratory Rate 21 H 19 H 22 H Respiratory Effort Blood Pressure 96/61 102/57 L 106/68 Blood Pressure Mean 72 72 80 Pulse Ox 93 92 92 Oxygen Delivery Method Room Air Positive well nourished, well developed and obese General Appearance ED: well developed Nutritional Appearance: obese HEENT Reports moist mucous membranes normocephalic and atraumatic; Negative for trauma or tenderness Eyes PERRL and EOMs intact bilaterally Neck no lymphadenopathy, supple and no JVD General: Negative for tenderness Chest Wall inspection of chest normal and palpation of chest normal Chest: Negative for tenderness Resp normal respiratory effort and clear to auscultation bilaterally Resp Narrative: Patient has a 3/6 systolic ejection murmur. Effort and Inspection: respiratory distress Cardio regular rate and regular rhythm; Negative for no murmurs GI normal to inspection, nondistended, normoactive bowel sounds, soft to palpation, non-tender and non-distended Back/Spine no CVA tenderness Extremity normal to inspection General Extremety ED: Yes edema; Negative for tenderness General Extremity: edema Neuro oriented x3 and CN's II-XII intact bilaterally Sensorium / Orientation: awake, alert, oriented to person, oriented to place and oriented to time Motor Exam: strength 5/5 throughout Psych mental status grossly normal Skin no rashes or lesions noted Heart Score History: Moderately Suspicious ECG: Normal Age: >/= 65 years Risk Factors: >/= 3 Risk Factors or History of CAD Troponin: >1 - <3 Normal Limit Score: 6 MDM MDM MDM Narrative Medical decision making narrative: 71-year-old male with left-sided chest pain at rest. Has a significant cardiac history with prior IN, multiple stents and CHF. He is also diabetic. He will undergo cardiac work-up. The pain is not reproducible. He is receiving aspirin. Also he is hypotensive in the 90s and will have to closely watch his blood pressure. Patient doing well on repeat exam at 7:40 PM. With the elevated troponin a 2- hour high-sensitivity troponin will be obtained. I reviewed his old labs. He has had elevated troponins in the past but he has not had a high-sensitivity troponin done here. He had a nuclear stress test done in mid April about 2 to 3 weeks ago and it was negative. He had a recent echo and it was unremarkable with an EF of 52%. Repeat exam at 10:25 PM. Patient still remains borderline hypotensive with a systolic pressure 100. I think a conservative approach would be to keep him overnight on a air sampling and monitoring reevaluate him and make disposition after further monitoring and possibly additional labs. I will speak to the hospitalist about that. Impressions: Acute chest pain of uncertain etiology Hypertension Acute kidney injury History of CAD Lab Data Attestation: I reviewed the patient's lab results. Lab results narrative: CBC shows white count of 7. Hemoglobin 10. Notably co mpared to prior hemoglobins. Electrolytes unremarkable gap 10 BUN 39 creatinine 2.17. Glucose 142. The high-sensitivity troponin is 300. Repeat 2-hour troponin was 263 and improved. Labs: Laboratory Results - last 24 hr 05/03/21 05/03/21 05/03/21 18:33 18:33 20:35 WBC 7.1 RBC 3.50 L Hgb 10.1 L Hct 33.4 L MCV 95.4 H MCH 28.9 MCHC 30.2 L RDW Std Deviation 56.1 H RDW Coeff of Raphael 15.9 H Plt Count 226 MPV 9.4 Immature Gran % (Auto) 0.400 Neut % (Auto) 66.2 Lymph % (Auto) 19.2 [place] % (Auto) 9.3 Eos % (Auto) 4.2 Baso % (Auto) 0.7 Absolute Neuts (auto) 4.7 Absolute Lymphs (auto) 1.36 Nucleated RBC % 0 Sodium 138 Potassium 3.8 Chloride 102 Carbon Dioxide 26.0 Anion Gap 10 BUN 39 H Creatinine 2.17 H Estim Creat Clear Calc 31.77 Est GFR (MDRD) Af Amer 39 L Est GFR (MDRD) Non-Af 32 L BUN/Creatinine Ratio 18.0 Glucose 142 H Calcium 8.7 Troponin I High Sens 300.8 H* 263.8 H* Radiography Chest X-Ray - ED: 1 View, Read by ED Physician, Read by Radiologist, Heart, Lungs, Mediastinum, Bony Structures, No Acute Disease and Chronic Changes Diagnostic Testing: Radiology Impression Chest X-Ray 05/03/21 18:50 IMPRESSION: Nonacute portable x-ray examination of the chest. Electronically Signed: Leo Sharma MD ([place]) at 19:20 EDT , Service support , EKG Initial EKG: Attestation: I personally reviewed and interpreted this EKG as follows: Interpretation: Sinus Rhythm, No Acute Injury Pattern and Sinus Tachycardia Comments: Sinus tachycardia rate of 101 with a few PVCs. Nonspecific ST-T wave abnormalities but unchanged from prior EKG from April 15. No acute ST elevation or any significant depression. Follow-up EKG: Attestation: I personally reviewed and interpreted this EKG as follows: Interpretation: Sinus Rhythm Comments: Repeat EKG at 8:15 PM was a sinus tachycardia rate of 101 and was completely unchanged from the first. There are some PVCs. Prior EKG tracings: available for review Prior: Unchanged Discharge Plan Dx/Rx/DC Orders Clinical Impression: Chest pain Disposition Disposition: Acute Care Hospital [facility]
[2021-05-03 18:43] LABS: Absolute Lymphocyte Count 1.36 X10^3/uL (0.83-4.51); Absolute Neutrophil Count 4.7 X10^3/uL (2.0-7.7); Basophil# 0.05 X10^3/uL; Basophil% 0.7 % (0-1); Eosinophils% 4.2 % (0-5); Hematocrit 33.4 % (40-54); Hemoglobin 10.1 g/dL (13.0-16.5); Lymphocyte # 1.36 X10^3/ul (0.83-4.51); Lymphocyte % 19.2 % (19-41); Mean Corp Hgb Conc 30.2 g/dL (32-36); Mean Corpuscular Hgb 28.9 pg (27.0-32.0); Mean Corpuscular Volume 95.4 fL (80-94); Mean Platelet Vol. 9.4 fl (6.2-12.0); Monocyte# 0.66 X10^3/uL; Monocyte% 9.3 % (0-10); NRBC Flagged by Analyzer 0 % (0-5); Neutrophil # 4.67 X10^3/uL (2.7-7.7); Neutrophil % 66.2 % (47-70); Platelet Count 226 K/mm3 (150-450); RBC Distribution Width CV 15.9 % (11.6-14.6); RBC Distribution Width SD 56.1 fl (35.1-43.9); White Blood Count 7.1 K/mm3 (4.4-11.0)
--- NOTE | 2021-05-03 18:50 | RAD_ITS ---
STUDY: X-RAY CHEST REASON FOR EXAM: Male, 71 years old. chest pain TECHNIQUE: AP COMPARISON: None. FINDINGS: EKG leads project over the chest. The lungs are clear and expanded. There is no demonstrated pleural abnormality. Normal size heart. Normal mediastinum and simi. Normal visualized pulmonary arteries. There is atherosclerotic tortuosity of the aortic arch and descending thoracic aorta. No acute bony process. There is no demonstrated abnormality of the visualized soft tissue structures of the upper abdomen. RAD/Chest 1 View (Portable) IMPRESSION: Nonacute portable x-ray examination of the chest. Electronically Signed: Leo Sharma MD ([place]) at 19:20 EDT , Service support ,
[2021-05-03 19:08] LABS: Anion Gap 10 (5-15); BUN 39 mg/dL (7-18); Calcium,Total 8.7 mg/dL (8.5-10.1); Chloride 102 mmol/L (98-107); Creatinine, Serum 2.17 mg/dL (0.70-1.30); EST Glomerular Filtration Rate 32 mL/min (>60); Est Glom Filt Rate - Afr Amer 39 mL/min (>60); Estimated Creatinine Clearance 31.77 ml/min; Glucose 142 mg/dL (74-106); Potassium 3.8 mmol/L (3.5-5.1); Sodium Level 138 mmol/L (136-145); Troponin-I HS 300.8 pg/mL (3.0-78.5)
--- NOTE | 2021-05-03 19:53 | EKG12_ITS ---
Test Reason : REPEAT Blood Pressure : / mmHG Vent. Rate : 101 BPM Atrial Rate : 101 BPM P-R Int : 170 ms QRS Dur : 106 ms QT Int : 384 ms P-R-T Axes : 055 -28 123 degrees QTc Int : 497 ms Sinus tachycardia with Fusion complexes Possible Left ventricular hypertrophy Cannot rule out Septal infarct , age undetermined Nonspecific ST/T wave abnormality:consider myocardial ischemia:Lateral Abnormal ECG Confirmed by DANIELA MOYER, BRICE ([id number]), news editor FLAQUITA MACKENZIE ([id number]) on 05/07/2021 1:11:33 PM Referred By: CHRISTIANO Confirmed By:BRICE SUAREZ MD
[2021-05-03 21:14] LABS: Troponin-I HS 263.8 pg/mL (3.0-78.5)
--- NOTE | 2021-05-03 22:29 | HP.PCM.HOS_ITS ---
HPI - General General Date of Admission: 05/03/21 Date of Service: 05/03/21 Chief Complaint: Chest pain HPI Narrative The patient is a 71 y/o M w/ PMHx: Former Tobacco use, Chronic anemia/Fe deficiency, Combined Systolic and Diastolic CHF, Ischemic Cardiomyopathy, HTN, HLD, CAD, Chronic BL LE Lymphedema, Morbid Obesity, JUAN ALBERTO, Diabetes mellitus type II who presents to the [facility] ED on 05/03/21 with history of onset left-sided chest discomfort starting approximately 20 to 30 minutes prior to ED arrival reportedly heaviness as well as an aching sensation with associated nausea but no diaphoresis or dyspnea above his chronic baseline, reportedly feeling as though something sitting on his chest prompting ED evaluation. Patient was recently discharged on 04/18/21 following acute CHF exacerbation treatment with concurrent chest pain at that time. He rated his discomfort 10/10, currently resolved completely. He did not on day of presentation outside his normal behavior he went to a betting establishment with friends and had more EtOH than he would normally. Work-up in the ED included T 94.7, heart rate 99, BP 98/59, respiratory rate 16, 96% on room air however did increase to respiratory rate of 22, 92% on room air, CBC with WC 7.1, hemoglobin 10.1, MCV 95.4, platelet 226 without marked shift, BMP with BUN/creatinine 39/2.17, glucose 142, troponin 263.8-->300.8, chest x-ray with no acute cardiopulmonary findings, EKG w/ ST with PVCs, nonspecific ST-T wave changes unchaged from prior x 2. [facility] Medical History (Updated 05/03/21 @ 22:[address] Braxton Groves MD) Acute on chronic combined systolic (congestive) and diastolic (congestive) heart failure Atherosclerosis of coronary artery without angina pectoris Bilateral lower extremity edema Dermatitis Diastolic dysfunction Elevated liver enzymes Essential (primary) hypertension Fatty liver Gout Hyperlipidemia Ischemic cardiomyopathy Morbid obesity Morbid obesity with BMI of 40.0-44.9, adult Non-rheumatic aortic stenosis NSTEMI (non-ST elevated myocardial infarction) (02/25/19) Obstructive sleep apnea Osteoarthritis Secondary pulmonary arterial hypertension Type 2 diabetes mellitus Home Medications allopurinol 300 mg PO DAILY 04/10/16 [History Last Taken 05/05/16] aspirin 81 mg tablet,delayed release 81 mg PO QDAY 04/14/18 [History Last Taken 01/24/20] multivitamin 1 tab PO DAILY 01/25/19 [History Last Taken Unknown] nitroglycerin 0.4 mg sublingual tablet 0.4 mg SUBLINGUAL Q5-15M PRN 01/25/19 [History Last Taken Unknown] glipizide 5 mg tablet 5 mg PO BID tab 05/23/19 [History Last Taken Unknown] carvedilol 6.25 mg tablet 6.25 mg PO BID #180 tab 01/18/20 [Rx Last Taken Unknown] atorvastatin 80 mg tablet 80 mg PO QHS #90 tab 04/08/20 [Rx Last Taken Unknown] lisinopril 10 mg tablet 10 mg PO DAILY #90 tab 04/24/20 [Rx Last Taken Unknown] isosorbide mononitrate 30 mg tablet,extended release 24 hr 30 mg PO DAILY #90 tab 05/27/20 [Rx Last Taken Unknown] clopidogrel 75 mg PO DAILY 04/16/21 [History Last Taken Unknown] ferrous sulfate [FeroSul] 325 mg PO LUNCH #30 tab 04/18/21 [Rx Last Taken Unknown] pantoprazole 40 mg PO DAILY #30 tab 04/18/21 [Rx Last Taken Unknown] sennosides-docusate sodium [Stool Softener-Stimulant Laxat] 2 tab PO BID PRN PRN #0 tab 04/18/21 [Rx Last Taken Unknown] spironolactone 12.5 mg PO DAILY #15 tab 04/18/21 [Rx Last Taken Unknown] torsemide 20 mg PO BID #60 tab 04/18/21 [Rx Last Taken Unknown] Allergy/AdvReac Type Severity Reaction Status Date / Time metformin AdvReac Elevated Verified 05/03/21 18:41 LDH and anion gap Family History Mother , Age 80 Diabetes Hypertension Father , Age 55, coma Diabetes Hypertension Sister Hypertension Brother Diabetes Hypertension Cancer, Onset Age: 50 prostate cancer CAD (coronary artery disease) Surgical History History of appendectomy History of coronary artery stent placement (01/24/20) History of herniorrhaphy History of left heart catheterization (12/29/18) History of tonsillectomy History of total knee replacement (TKR) Social History household members: children Smoking Status: Former smoker quit date: 01/31/11 alcohol intake: current alcohol intake frequency: holidays/special occasions only substance use type: does not use caffeine: Yes Type: coffee ROS ROS Narrative Admission Review of Systems: CONSTITUTIONAL: No weight loss, fever, chills, + weakness or fatigue. HEENT: Eyes: No visual loss, blurred vision, double vision or yellow sclerae. Ears, Nose, Throat: No hearing loss, sneezing, congestion, runny nose or sore throat. SKIN: No rash or itching, lesions, wounds. CARDIOVASCULAR: + chest pain, chest pressure or chest discomfort, edema, No palpitations, orthopnea, syncopal events. RESPIRATORY: + Chronic shortness of breath, No cough or sputum, wheezing, hemoptysis. GASTROINTESTINAL: No anorexia, nausea, vomiting or diarrhea, abdominal pain, melena, BRBPR. GENITOURINARY: No dysuria, frequency, urgency or retention. NEUROLOGICAL: No headache, dizziness, syncope, paralysis, ataxia, numbness or tingling in the extremities, focal weakness, change in bowel or bladder control, seizure. MUSCULOSKELETAL: + muscle, back pain, joint pain or stiffness. HEMATOLOGIC: + anemia, bleeding or bruising. LYMPHATICS: No enlarged nodes. No history of splenectomy. PSYCHIATRIC: No history of depression or anxiety. ENDOCRINOLOGIC: No reports of sweating, cold or heat intolerance. No polyuria or polydipsia. ALLERGIES: No history of asthma, hives, eczema or rhinitis. Vital Signs Vital Signs Vital Signs: 05/03/21 18:29 05/03/21 18:33 05/03/21 18:40 Temperature 97.4 F L Temperature Source Temporal Pulse Rate 99 Respiratory Rate 16 Respiratory Effort Normal Blood Pressure 98/59 L Blood Pressure Mean 72 Pulse Ox 96 99 Oxygen Delivery Method Room Air Room Air 05/03/21 19:23 05/03/21 20:05 05/03/21 22:00 Temperature Temperature Source Pulse Rate 101 H 102 H 95 Respiratory Rate 21 H 19 H 22 H Respiratory Effort Blood Pressure 96/61 102/57 L 106/68 Blood Pressure Mean 72 72 80 Pulse Ox 93 92 92 Oxygen Delivery Method Room Air Weight Weight: 279 lb 5.211 oz Body Mass Index (BMI) 40.1 Physical Exam Narrative Physical Examination: General: Awake, alert, oriented x 3 and cooperative, seated upright in the ED bed, no acute distress, denies any current chest pain currently. Skin: Normal color, normal turgor, no icterus, no cyanosis, bilateral lower extremity chronic venous stasis skin changes. HEENT: AT/NC, EOMI, PERRLA, mildly dry MM, no carotid bruits or JVD noted; however, thickened neck makes examination difficult. Lungs: Diminished breath sounds, greater bases, moderate effort, no evidence of any distress, no significant rales noted no rhonchi or wheezing. Heart: Mildly tachycardic with regular rhythm; no gallop, rub audible. Abdomen: Soft, morbidly obese, NTTP, difficult to discern distention given habitus, distant normal BS, unable to discern HSM well secondary to habitus. Extremities: No cyanosis, no clubbing, bilateral lower extremital chronic venous stasis skin changes, some pedal to distal marquis swelling but per his report significantly improved since prior. Neurological: Patient awake, alert, oriented as noted, cognitive function intact; pupils equally reactive to light and accommodation, cranial nerves II- XII grossly normal, moving all 4 extremities, no focal deficits, strength moderately global decreased. Psychiatric: Affect appears normal, no acute evidence of depressive or anxiety feelings. Results Lab / Micro Data Result Diagrams: 05/03/21 18:33 05/03/21 18:33 Labs: Laboratory Results - last 24 hr 05/03/21 05/03/21 05/03/21 18:33 18:33 20:35 WBC 7.1 RBC 3.50 L Hgb 10.1 L Hct 33.4 L MCV 95.4 H MCH 28.9 MCHC 30.2 L RDW Std Deviation 56.1 H RDW Coeff of Raphael 15.9 H Plt Count 226 MPV 9.4 Immature Gran % (Auto) 0.400 Neut % (Auto) 66.2 Lymph % (Auto) 19.2 Richardson % (Auto) 9.3 Eos % (Auto) 4.2 Baso % (Auto) 0.7 Absolute Neuts (auto) 4.7 Absolute Lymphs (auto) 1.36 Nucleated RBC % 0 Sodium 138 Potassium 3.8 Chloride 102 Carbon Dioxide 26.0 Anion Gap 10 BUN 39 H Creatinine 2.17 H Estim Creat Clear Calc 31.77 Est GFR (MDRD) Af Amer 39 L Est GFR (MDRD) Non-Af 32 L BUN/Creatinine Ratio 18.0 Glucose 142 H Calcium 8.7 Troponin I High Sens 300.8 H* 263.8 H* Radiology Impression Chest X-Ray 05/03/21 18:50 IMPRESSION: Nonacute portable x-ray examination of the chest. Electronically Signed: Leo Sharma MD (Brooks) at 19:20 EDT , Service support , Assessment & Plan Assessment/Plan (1) Chest pain: PLAN: The patient is a 71 y/o M w/ PMHx: Former Tobacco use, Chronic anemia/Fe deficiency, Combined Systolic and Diastolic CHF, Ischemic Cardiomyopathy, HTN, HLD, CAD, Chronic BL LE Lymphedema, Morbid Obesity, JUAN ALBERTO, Diabetes mellitus type II who presents to the [facility] ED on 05/03/21 with history of onset left-sided chest discomfort starting approximately 20 to 30 minutes prior to ED arrival reportedly heaviness as well as an aching sensation with associated nausea but no diaphoresis or dyspnea above his chronic baseline, reportedly feeling as though something sitting on his chest prompting ED evaluation. 1. Chest Pain with indeterminate cardiac enzyme: ED evaluation with troponin 263.8-->300.8, chest x-ray with no acute cardiopulmonary findings, EKG w/ ST with PVCs, nonspecific ST-T wave changes unchaged from prior x 2. Will admit to PCU, place on a monitored bed to assure no acute myocardial infarction with serial cardiac enzymes and EKGs. 02/07/21 Nuclear stress testing present but results not present however Dr. Groves noted ability to find the results and it was negative for acute ischemia per his report. ASA, NG, morphine. 01/2021 admission elevated cardiac enzymes at that time. 2. Acute kidney injury: Secondary to likely recent increased diuretic usage. Admission BUN/Cr 39/2.17, prior baseline creatinine noted to be 1.2-1.4. Will judiciously hydrate especially given recent CHF exacerbation admission, hold nephrotoxic medications and repeat chemistry in AM. 3. Recent Acute Anemia w/ + Occult stools, Fe deficiency: Admission hemoglobin 10.1, recent admission with range 8.7-9.3, had been 12.4 11/05/2020, no endoscopies pursued during presentation, Plavix discontinued with aspirin transition only pending outpatient further evaluation, continue iron supplementation. Per prior admission had noted plan for further evaluation outpatient but given history and notable PCI may need to consider AM Surgery consultation, will keep NPO given #1 additionally. 4. Chronic diastolic and systolic CHF: Patient with recent presentation, will continue aspirin, recent acute anemia w/ positive occult stools thus continued hold on Plavix, Coreg, statin therapy. Recent Echocardiogram shows normal LV size with normal left ventricular systolic function, EF 45%. Continue 1500 daily restriction, ARCADIO wraps. Temporarily holding torsemide, Lasix, spironolactone given YADIRA, resume once appropriate, judiciously hydrating especially given recent CHF exacerbation. 5. Chronic BL LE Lymphedema: Improved since recent presentation per report secondary to diuretics, will place SNUG arcadio wraps especially given need for judicious IVFs. 6. CAD: s/p PCI x 10, continue asa, holding plavix as noted, continue Coreg, lisinopril, temporarily holding lisinopril given YADIRA as noted. 7. Hypertension: Continue home regimen including Coreg, isosorbide, as noted temporarily holding lisinopril, spironolactone, torsemide given YADIRA, resume once appropriate, PRN hydralazine. 8. Hyperlipidemia: Continue home statin regimen. AM FLP. 9. Morbid Obesity: Weight loss and lifestyle changes encouraged. 10. Diabetes mellitus type II: Hold oral home regimen, ADA diet until n.p.o. status, accu checks w/ ISS. 11. Former tobacco use: Encourage continue tobacco cessation. 12. GERD: We will continue patient on PPI. 13. DVT prophylaxis: SCDs, hold on chemoprophylaxis given concern for recent GI bleed. 14. CODE status: Patient DRE is his brother Robert and living will is currently in place. Discussed CODE status at length including difference between FULL code, DNR-CCA and DNR-CC status. Following discussions about the differences in these status, requested Full Code status but he very specifically requests that only maximum 2 rounds of CPR be formed and that if it is not successful he be allowed to pass naturally. Advanced Care Planning Face to Face Time: 16 minutes. Charges/Coding Visit Charges Inpatient E&M: 20204 Init Hosp L3 Multi Select Codes Hospitalists' Procedures Procedures: 11212 Advncd Care Plan 30 Min
[2021-05-03 23:22] LABS: Magnesium 2.1 mg/dL (1.6-2.6)
--- NOTE | 2021-05-03 23:26 | EKG12_ITS ---
Test Reason : CP Blood Pressure : / mmHG Vent. Rate : 101 BPM Atrial Rate : 101 BPM P-R Int : 144 ms QRS Dur : 102 ms QT Int : 372 ms P-R-T Axes : 048 -29 127 degrees QTc Int : 482 ms Sinus tachycardia with Fusion complexes Septal infarct , age undetermined ST & T wave abnormality, consider lateral ischemia Abnormal ECG Confirmed by DANIELA MOYER, BRICE ([id number]), newspaper copy editor FLAQUITA MACKENZIE ([id number]) on 05/07/2021 1:10:19 PM Referred By: SHANTEL Confirmed By:BRICE SUAREZ MD
[2021-05-04] VITALS (14 sets, daily range): BP systolic 94–112; BP diastolic 41–67; PULSE 71–94; RESP 16–18; TEMP 36.1–36.8; O2SAT 93–98
[2021-05-04] MEDS: 0.9% Normal Saline 1,000 ML 100 ML IV ×2 (00:18→12:24)
[2021-05-04] MEDS: Pantoprazole Sodium 40 MG Tablet PO ×3 (00:34→22:05)
[2021-05-04] MEDS: Morphine 2 MG/ML Syringe IV (01:43)
[2021-05-04] MEDS: 0.9% Saline Lock 10 ML Syringe IV (01:44)
[2021-05-04 01:45] LABS: Partial Thromboplast Time 30.2 Seconds (24.1-36.2)
[2021-05-04] MEDS: Heparin Injection (Vial) 5,000 UNIT/ML VIAL 9500 UNIT IV (02:15)
[2021-05-04] MEDS: HEPARIN/D5w 25,000 UNITS 25,000 UNITS/250 ML IV.SOLN. 16 UNITS IV (02:16)
[2021-05-04 05:24] LABS: International Normalized Ratio 1.2; Prothrombin Time (Protime)PT. 14.9 SECONDS (11.7-14.9)
[2021-05-04 05:53] LABS: Absolute Lymphocyte Count 1.53 X10^3/uL (0.83-4.51); Absolute Neutrophil Count 3.7 X10^3/uL (2.0-7.7); Basophil# 0.05 X10^3/uL; Basophil% 0.8 % (0-1); Eosinophil# 0.38 X10^3/uL; Eosinophils% 6.1 % (0-5); Hematocrit 29.3 % (40-54); Hemoglobin 8.9 g/dL (13.0-16.5); Lymphocyte # 1.53 X10^3/ul (0.83-4.51); Lymphocyte % 24.6 % (19-41); Mean Corp Hgb Conc 30.4 g/dL (32-36); Mean Corpuscular Hgb 28.8 pg (27.0-32.0); Mean Corpuscular Volume 94.8 fL (80-94); Mean Platelet Vol. 9.9 fl (6.2-12.0); Monocyte# 0.55 X10^3/uL; Monocyte% 8.9 % (0-10); NRBC Flagged by Analyzer 0 % (0-5); Neutrophil # 3.69 X10^3/uL (2.7-7.7); Neutrophil % 59.4 % (47-70); Platelet Count 206 K/mm3 (150-450); RBC Distribution Width SD 55.4 fl (35.1-43.9); Red Blood Count 3.09 M/mm3 (4.6-6.2); White Blood Count 6.2 K/mm3 (4.4-11.0)
[2021-05-04 06:31] LABS: ALB/GLOB Ratio 0.9 RATIO (0.9-2.4); AST(SGOT) 20 U/L (15-37); Alanine Aminotransfer ALT/SGPT 15 U/L (16-61); Albumin, Serum 3.1 g/dL (3.2-5.0); Alkaline Phosphatase 88 U/L (45-117); Anion Gap 7 (5-15); BUN 43 mg/dL (7-18); BUN/Creat Ratio 23.1 RATIO (10-20); Calcium,Total 8.2 mg/dL (8.5-10.1); Chloride 104 mmol/L (98-107); Cholesterol 88 mg/dL (200); Creatinine, Serum 1.86 mg/dL (0.70-1.30); EST Glomerular Filtration Rate 38 mL/min (>60); Est Glom Filt Rate - Afr Amer 46 mL/min (>60); Estimated Creatinine Clearance 37.07 ml/min; Globulin 3.3 g/dL (2.2-4.2); Glucose 120 mg/dL (74-106); High Density Lipoprotein 41 mg/dL; Potassium 4.3 mmol/L (3.5-5.1); Protein, Total 6.4 g/dL (6.4-8.2); Sodium Level 138 mmol/L (136-145); Triglycerides 42 mg/dL; Very Low Density Lipoprotein 8 mg/dL (5-40)
[2021-05-04 06:41] LABS: Bedside Glucose 125 mg/dL (70-110)
--- NOTE | 2021-05-04 07:05 | NURSING ---
Text sent to Dr Garber to notify of troponin 8859.6
[2021-05-04 08:39] LABS: Partial Thromboplast Time 247.9 Seconds (24.1-36.2)
[2021-05-04] MEDS: Aspirin E.C. 81 MG Tablet PO (09:03)
[2021-05-04] MEDS: Allopurinol 300 MG Tablet PO (09:03)
[2021-05-04] MEDS: Isosorbide Mononitrate 30 MG Tablet PO (09:03)
[2021-05-04] MEDS: Carvedilol 6.25 MG Tablet PO ×2 (09:03→22:05)
[2021-05-04] MEDS: Ferrous Sulfate 325 MG Tablet PO (12:26)
[2021-05-04] MEDS: Insulin Lispro 100 UNIT/ML INSULN.PEN SC ×2 (12:29→17:41)
--- NOTE | 2021-05-04 12:31 | PCM.CONS.C ---
HPI Consult Data Date of Consult: 05/04/21 Attending Care Provider: Known CAD, multiple PCI/coronary stents, presented with chest pain/non-STEMI HPI Narrative HPI Narrative: LUIS DEE, is a 71 M who presents [facility] Medical History (Updated 05/04/21 @ 00:05 by Melania Mcnulty) Acute on chronic combined systolic (congestive) and diastolic (congestive) heart failure Atherosclerosis of coronary artery without angina pectoris Bilateral lower extremity edema Chest pain Chest pain Congestive heart failure (CHF) COPD (chronic obstructive pulmonary disease) Coronary artery disease Dermatitis Diastolic dysfunction Elevated liver enzymes Essential (primary) hypertension Fatty liver Former smoker Former smoker Gout History of stress test Hyperlipidemia Hypertension Hypertension Ischemic cardiomyopathy Kidney stones Morbid obesity Morbid obesity with BMI of 40.0-44.9, adult Myocardial infarct Myocardial infarct Non-rheumatic aortic stenosis NSTEMI (non-ST elevated myocardial infarction) (02/25/19) Obstructive sleep apnea Osteoarthritis Secondary pulmonary arterial hypertension Sleep apnea Type 2 diabetes mellitus Home Medications allopurinol 300 mg PO DAILY 04/10/16 [History Last Taken 05/05/16] aspirin 81 mg tablet,delayed release 81 mg PO QDAY 04/14/18 [History Last Taken 01/24/20] multivitamin 1 tab PO DAILY 01/25/19 [History Last Taken Unknown] nitroglycerin 0.4 mg sublingual tablet 0.4 mg SUBLINGUAL Q5-15M PRN 01/25/19 [History Last Taken Unknown] glipizide 5 mg tablet 5 mg PO BID tab 05/23/19 [History Last Taken Unknown] carvedilol 6.25 mg tablet 6.25 mg PO BID #180 tab 01/18/20 [Rx Last Taken Unknown] atorvastatin 80 mg tablet 80 mg PO QHS #90 tab 04/08/20 [Rx Last Taken Unknown] lisinopril 10 mg tablet 10 mg PO DAILY #90 tab 04/24/20 [Rx Last Taken Unknown] isosorbide mononitrate 30 mg tablet,extended release 24 hr 30 mg PO DAILY #90 tab 05/27/20 [Rx Last Taken Unknown] clopidogrel 75 mg PO DAILY 04/16/21 [History Last Taken Unknown] ferrous sulfate [FeroSul] 325 mg PO LUNCH #30 tab 04/18/21 [Rx Last Taken Unknown] pantoprazole 40 mg PO DAILY #30 tab 04/18/21 [Rx Last Taken Unknown] sennosides-docusate sodium [Stool Softener-Stimulant Laxat] 2 tab PO BID PRN PRN #0 tab 04/18/21 [Rx Last Taken Unknown] spironolactone 12.5 mg PO DAILY #15 tab 04/18/21 [Rx Last Taken Unknown] torsemide 20 mg PO BID #60 tab 04/18/21 [Rx Last Taken Unknown] Allergy/AdvReac Type Severity Reaction Status Date / Time metformin AdvReac Elevated Verified 05/03/21 18:41 LDH and anion gap Family History Mother , Age 80 Diabetes Hypertension Father , Age 55, coma Diabetes Hypertension Sister Hypertension Brother Diabetes Hypertension Cancer, Onset Age: 50 prostate cancer CAD (coronary artery disease) Surgical History (Updated 05/04/21 @ 00:05 by Melania Mcnulty) History of appendectomy History of coronary artery stent placement (01/24/20) History of heart artery stent History of herniorrhaphy History of left heart catheterization (12/29/18) History of tonsillectomy History of total knee replacement (TKR) Social History household members: children Smoking Status: Former smoker quit date: 01/31/11 alcohol intake: current alcohol intake frequency: holidays/special occasions only substance use type: does not use caffeine: Yes Type: coffee ROS ROS Narrative Admission Review of Systems: CONSTITUTIONAL: No weight loss, fever, chills, + weakness or fatigue. HEENT: Eyes: No visual loss, blurred vision, double vision or yellow sclerae. Ears, Nose, Throat: No hearing loss, sneezing, congestion, runny nose or sore throat. SKIN: No rash or itching, lesions, wounds. CARDIOVASCULAR: + chest pain, chest pressure or chest discomfort, edema, No palpitations, orthopnea, syncopal events. RESPIRATORY: + Chronic shortness of breath, No cough or sputum, wheezing, hemoptysis. GASTROINTESTINAL: No anorexia, nausea, vomiting or diarrhea, abdominal pain, melena, BRBPR. GENITOURINARY: No dysuria, frequency, urgency or retention. NEUROLOGICAL: No headache, dizziness, syncope, paralysis, ataxia, numbness or tingling in the extremities, focal weakness, change in bowel or bladder control, seizure. MUSCULOSKELETAL: + muscle, back pain, joint pain or stiffness. HEMATOLOGIC: + anemia, bleeding or bruising. LYMPHATICS: No enlarged nodes. No history of splenectomy. PSYCHIATRIC: No history of depression or anxiety. ENDOCRINOLOGIC: No reports of sweating, cold or heat intolerance. No polyuria or polydipsia. ALLERGIES: No history of asthma, hives, eczema or rhinitis. Review of Systems ROS Unobtainable: Denies due to encephalopathy Constitutional Constitutional: Denies chills or fever(s) Eyes Eyes: Denies none ENT HEENT: Denies ear pain or sore throat Cardiovascular Cardiovascular: Reports as per HPI and chest pain; Denies palpitations Respiratory/Chest Respiratory/Chest: Reports dyspnea; Denies cough Gastrointestinal Gastrointestinal: Reports nausea; Denies abdominal pain, constipation, diarrhea, melena or vomiting Genitourinary Genitourinary: Denies dysuria or hematuria Musculoskeletal Musculoskeletal: Denies myalgias Integumentary Integumentary: Denies rash Neurologic Neurologic: Denies headache(s) Psychiatric Psychiatric: Denies depression Endocrine Endocrinology: Denies polyuria Hematologic/Lymphatic Hematologic/Lymphatic: Denies easy bruising Allergic/Immunologic Allergic/Immunologic: Denies urticaria Physical Exam Narrative Patient seen and evaluated today and discussed cardiac care plan in detail with the patient and nursing staff Symptoms of chest pain resolved Review of lunchroom monitor showed underlying normal sinus rhythm Cardiac examination S1-S2 regular Had ejection systolic murmur in the aortic valve area No diastolic murmur Chest examination mild bilateral basilar rales Examination lower extremity had remarkable lower extremity swelling with chronic bilateral lower extremity lymphedema. Objective Data Vital Signs: Vital Signs Temp Pulse Resp BP Pulse Ox 98.3 F 90 18 112/58 L 96 05/04/21 08:44 05/04/21 08:44 05/04/21 08:44 05/04/21 08:44 05/04/21 08:44 Oxygen Delivery Method Room Air Weight: 280 lb 3.32 oz Body Mass Index (BMI) 40.1 Intake & Output: Intake and Output for Last 24 Hours 05/02/21 05/03/21 05/04/21 23:59 23:59 23:59 Intake Total 1367.66 / 1367.66 Output Total 650 / 650 Balance 717.66 / 717.66 Lab / Micro Data Result Diagrams: 05/04/21 05:31 05/04/21 05:31 Labs: Laboratory Results - last 24 hr 05/03/21 05/03/21 05/03/21 18:33 18:33 20:35 WBC 7.1 RBC 3.50 L Hgb 10.1 L Hct 33.4 L MCV 95.4 H MCH 28.9 MCHC 30.2 L RDW Std Deviation 56.1 H RDW Coeff of Raphael 15.9 H Plt Count 226 MPV 9.4 Immature Gran % (Auto) 0.400 Neut % (Auto) 66.2 Lymph % (Auto) 19.2 [place] % (Auto) 9.3 Eos % (Auto) 4.2 Baso % (Auto) 0.7 Absolute Neuts (auto) 4.7 Absolute Lymphs (auto) 1.36 Nucleated RBC % 0 PT INR APTT Sodium 138 Potassium 3.8 Chloride 102 Carbon Dioxide 26.0 Anion Gap 10 BUN 39 H Creatinine 2.17 H Estim Creat Clear Calc 31.77 Est GFR (MDRD) Af Amer 39 L Est GFR (MDRD) Non-Af 32 L BUN/Creatinine Ratio 18.0 Glucose 142 H Calcium 8.7 Magnesium Total Bilirubin AST ALT Alkaline Phosphatase Troponin I High Sens 300.8 H* 263.8 H* Total Protein Albumin Globulin Albumin/Globulin Ratio Triglycerides Cholesterol LDL Cholesterol VLDL Cholesterol HDL Cholesterol POC Glucose 05/03/21 05/04/21 05/04/21 20:35 00:20 01:20 WBC RBC Hgb Hct MCV MCH MCHC RDW Std Deviation RDW Coeff of Raphael Plt Count MPV Immature Gran % (Auto) Neut % (Auto) Lymph % (Auto) [place] % (Auto) Eos % (Auto) Baso % (Auto) Absolute Neuts (auto) Absolute Lymphs (auto) Nucleated RBC % PT INR APTT 30.2 Sodium Potassium Chloride Carbon Dioxide Anion Gap BUN Creatinine Estim Creat Clear Calc Est GFR (MDRD) Af Amer Est GFR (MDRD) Non-Af BUN/Creatinine Ratio Glucose Calcium Magnesium 2.1 Total Bilirubin AST ALT Alkaline Phosphatase Troponin I High Sens 1191.0 H* Total Protein Albumin Globulin Albumin/Globulin Ratio Triglycerides Cholesterol LDL Cholesterol VLDL Cholesterol HDL Cholesterol POC Glucose 05/04/21 05/04/21 05/04/21 01:25 05:31 05:31 WBC 6.2 RBC 3.09 L Hgb 8.9 L Hct 29.3 L MCV 94.8 H MCH 28.8 MCHC 30.4 L RDW Std Deviation 55.4 H RDW Coeff of Raphael 16.0 H Plt Count 206 MPV 9.9 Immature Gran % (Auto) 0.200 Neut % (Auto) 59.4 Lymph % (Auto) 24.6 [place] % (Auto) 8.9 Eos % (Auto) 6.1 H Baso % (Auto) 0.8 Absolute Neuts (auto) 3.7 Absolute Lymphs (auto) 1.53 Nucleated RBC % 0 PT 14.9 INR 1.2 APTT Sodium 138 Potassium 4.3 Chloride 104 Carbon Dioxide 27.0 Anion Gap 7 BUN 43 H Creatinine 1.86 H Estim Creat Clear Calc 37.07 Est GFR (MDRD) Af Amer 46 L Est GFR (MDRD) Non-Af 38 L BUN/Creatinine Ratio 23.1 H Glucose 120 H Calcium 8.2 L Magnesium Total Bilirubin 0.50 AST 20 ALT 15 L Alkaline Phosphatase 88 Troponin I High Sens Total Protein 6.4 Albumin 3.1 L Globulin 3.3 Albumin/Globulin Ratio 0.9 Triglycerides 42 Cholesterol 88 LDL Cholesterol 39 VLDL Cholesterol 8 HDL Cholesterol 41 POC Glucose 05/04/21 05/04/21 05/04/21 05:31 06:30 08:12 WBC RBC Hgb Hct MCV MCH MCHC RDW Std Deviation RDW Coeff of Raphael Plt Count MPV Immature Gran % (Auto) Neut % (Auto) Lymph % (Auto) [place] % (Auto) Eos % (Auto) Baso % (Auto) Absolute Neuts (auto) Absolute Lymphs (auto) Nucleated RBC % PT INR APTT 247.9 H* Sodium Potassium Chloride Carbon Dioxide Anion Gap BUN Creatinine Estim Creat Clear Calc Est GFR (MDRD) Af Amer Est GFR (MDRD) Non-Af BUN/Creatinine Ratio Glucose Calcium Magnesium Total Bilirubin AST ALT Alkaline Phosphatase Troponin I High Sens 2840.7 H* Total Protein Albumin Globulin Albumin/Globulin Ratio Triglycerides Cholesterol LDL Cholesterol VLDL Cholesterol HDL Cholesterol POC Glucose 125 H Cardiology Labs/Tests 05/03/21 18:33: WBC 7.1, RBC 3.50 L, Hgb 10.1 L, Hct 33.4 L, MCV 95.4 H, MCH 28.9, MCHC 30.2 L, Plt Count 226, MPV 9.4, Immature Gran % (Auto) 0.400, Neut % (Auto) 66.2, Lymph % (Auto) 19.2, [place] % (Auto) 9.3, Eos % (Auto) 4.2, Baso % (Auto) 0.7, Absolute Neuts (auto) 4.7, Nucleated RBC % 0 05/03/21 18:33: Sodium 138, Potassium 3.8, Chloride 102, Carbon Dioxide 26.0, Anion Gap 10, BUN 39 H, Creatinine 2.17 H, Est GFR (MDRD) Af Amer 39 L, Est GFR (MDRD) Non-Af 32 L, BUN/Creatinine Ratio 18.0, Glucose 142 H, Calcium 8.7 05/03/21 20:35: Magnesium 2.1 05/04/21 01:20: APTT 30.2 05/04/21 01:25: PT 14.9, INR 1.2 05/04/21 05:31: WBC 6.2, RBC 3.09 L, Hgb 8.9 L, Hct 29.3 L, MCV 94.8 H, MCH 28.8, MCHC 30.4 L, Plt Count 206, MPV 9.9, Immature Gran % (Auto) 0.200, Neut % (Auto) 59.4, Lymph % (Auto) 24.6, [place] % (Auto) 8.9, Eos % (Auto) 6.1 H, Baso % (Auto) 0.8, Absolute Neuts (auto) 3.7, Nucleated RBC % 0 05/04/21 05:31: Sodium 138, Potassium 4.3, Chloride 104, Carbon Dioxide 27.0, Anion Gap 7, BUN 43 H, Creatinine 1.86 H, Est GFR (MDRD) Af Amer 46 L, Est GFR (MDRD) Non-Af 38 L, BUN/Creatinine Ratio 23.1 H, Glucose 120 H, Calcium 8.2 L, Total Bilirubin 0.50, Triglycerides 42, Cholesterol 88, LDL Cholesterol 39, VLDL Cholesterol 8, HDL Cholesterol 41 05/04/21 08:12: APTT 247.9 H* Rhythm: Normal sinus rhythm. EKG: Normal sinus rhythm, PACs, septal infarct age indeterminate ST?T wave abnormalities suggestive of lateral myocardial ischemia. : Radiography Diagnostic Testing: Radiology Impression Chest X-Ray 05/03/21 18:50 IMPRESSION: Nonacute portable x-ray examination of the chest. Electronically Signed: Leo Sharma MD ([place]) at 19:20 EDT , Service support ,
--- NOTE | 2021-05-04 12:37 | PCM.PN.HOSP ---
Subjective Subjective Patient seen and examined. Reports mild chest tightness on the left side. Denies significant chest pain. Denies shortness of breath. Plan for heart cath in a.m. Objective Data Objective Data Vital Signs: Vital Signs Temp Pulse Resp BP Pulse Ox 98.3 F 90 18 112/58 L 96 05/04/21 08:44 05/04/21 08:44 05/04/21 08:44 05/04/21 08:44 05/04/21 08:44 Oxygen Delivery Method Room Air Weight: 280 lb 3.32 oz Body Mass Index (BMI) 40.1 Intake & Output: Intake and Output for Last 24 Hours 05/02/21 05/03/21 05/04/21 23:59 23:59 23:59 Intake Total 1367.66 / 1367.66 Output Total 650 / 650 Balance 717.66 / 717.66 Lab / Micro Data Result Diagrams: 05/04/21 05:31 05/04/21 05:31 Labs: Laboratory Results - last 24 hr 05/03/21 05/03/21 05/03/21 18:33 18:33 20:35 WBC 7.1 RBC 3.50 L Hgb 10.1 L Hct 33.4 L MCV 95.4 H MCH 28.9 MCHC 30.2 L RDW Std Deviation 56.1 H RDW Coeff of Raphael 15.9 H Plt Count 226 MPV 9.4 Immature Gran % (Auto) 0.400 Neut % (Auto) 66.2 Lymph % (Auto) 19.2 [place] % (Auto) 9.3 Eos % (Auto) 4.2 Baso % (Auto) 0.7 Absolute Neuts (auto) 4.7 Absolute Lymphs (auto) 1.36 Nucleated RBC % 0 PT INR APTT Sodium 138 Potassium 3.8 Chloride 102 Carbon Dioxide 26.0 Anion Gap 10 BUN 39 H Creatinine 2.17 H Estim Creat Clear Calc 31.77 Est GFR (MDRD) Af Amer 39 L Est GFR (MDRD) Non-Af 32 L BUN/Creatinine Ratio 18.0 Glucose 142 H Calcium 8.7 Magnesium Total Bilirubin AST ALT Alkaline Phosphatase Troponin I High Sens 300.8 H* 263.8 H* Total Protein Albumin Globulin Albumin/Globulin Ratio Triglycerides Cholesterol LDL Cholesterol VLDL Cholesterol HDL Cholesterol POC Glucose 05/03/21 05/04/21 05/04/21 20:35 00:20 01:20 WBC RBC Hgb Hct MCV MCH MCHC RDW Std Deviation RDW Coeff of Raphael Plt Count MPV Immature Gran % (Auto) Neut % (Auto) Lymph % (Auto) [place] % (Auto) Eos % (Auto) Baso % (Auto) Absolute Neuts (auto) Absolute Lymphs (auto) Nucleated RBC % PT INR APTT 30.2 Sodium Potassium Chloride Carbon Dioxide Anion Gap BUN Creatinine Estim Creat Clear Calc Est GFR (MDRD) Af Amer Est GFR (MDRD) Non-Af BUN/Creatinine Ratio Glucose Calcium Magnesium 2.1 Total Bilirubin AST ALT Alkaline Phosphatase Troponin I High Sens 1191.0 H* Total Protein Albumin Globulin Albumin/Globulin Ratio Triglycerides Cholesterol LDL Cholesterol VLDL Cholesterol HDL Cholesterol POC Glucose 05/04/21 05/04/21 05/04/21 01:25 05:31 05:31 WBC 6.2 RBC 3.09 L Hgb 8.9 L Hct 29.3 L MCV 94.8 H MCH 28.8 MCHC 30.4 L RDW Std Deviation 55.4 H RDW Coeff of Raphael 16.0 H Plt Count 206 MPV 9.9 Immature Gran % (Auto) 0.200 Neut % (Auto) 59.4 Lymph % (Auto) 24.6 [place] % (Auto) 8.9 Eos % (Auto) 6.1 H Baso % (Auto) 0.8 Absolute Neuts (auto) 3.7 Absolute Lymphs (auto) 1.53 Nucleated RBC % 0 PT 14.9 INR 1.2 APTT Sodium 138 Potassium 4.3 Chloride 104 Carbon Dioxide 27.0 Anion Gap 7 BUN 43 H Creatinine 1.86 H Estim Creat Clear Calc 37.07 Est GFR (MDRD) Af Amer 46 L Est GFR (MDRD) Non-Af 38 L BUN/Creatinine Ratio 23.1 H Glucose 120 H Calcium 8.2 L Magnesium Total Bilirubin 0.50 AST 20 ALT 15 L Alkaline Phosphatase 88 Troponin I High Sens Total Protein 6.4 Albumin 3.1 L Globulin 3.3 Albumin/Globulin Ratio 0.9 Triglycerides 42 Cholesterol 88 LDL Cholesterol 39 VLDL Cholesterol 8 HDL Cholesterol 41 POC Glucose 05/04/21 05/04/21 05/04/21 05:31 06:30 08:12 WBC RBC Hgb Hct MCV MCH MCHC RDW Std Deviation RDW Coeff of Raphael Plt Count MPV Immature Gran % (Auto) Neut % (Auto) Lymph % (Auto) [place] % (Auto) Eos % (Auto) Baso % (Auto) Absolute Neuts (auto) Absolute Lymphs (auto) Nucleated RBC % PT INR APTT 247.9 H* Sodium Potassium Chloride Carbon Dioxide Anion Gap BUN Creatinine Estim Creat Clear Calc Est GFR (MDRD) Af Amer Est GFR (MDRD) Non-Af BUN/Creatinine Ratio Glucose Calcium Magnesium Total Bilirubin AST ALT Alkaline Phosphatase Troponin I High Sens 2840.7 H* Total Protein Albumin Globulin Albumin/Globulin Ratio Triglycerides Cholesterol LDL Cholesterol VLDL Cholesterol HDL Cholesterol POC Glucose 125 H 05/04/21 12:23 WBC RBC Hgb Hct MCV MCH MCHC RDW Std Deviation RDW Coeff of Raphael Plt Count MPV Immature Gran % (Auto) Neut % (Auto) Lymph % (Auto) [place] % (Auto) Eos % (Auto) Baso % (Auto) Absolute Neuts (auto) Absolute Lymphs (auto) Nucleated RBC % PT INR APTT Sodium Potassium Chloride Carbon Dioxide Anion Gap BUN Creatinine Estim Creat Clear Calc Est GFR (MDRD) Af Amer Est GFR (MDRD) Non-Af BUN/Creatinine Ratio Glucose Calcium Magnesium Total Bilirubin AST ALT Alkaline Phosphatase Troponin I High Sens Total Protein Albumin Globulin Albumin/Globulin Ratio Triglycerides Cholesterol LDL Cholesterol VLDL Cholesterol HDL Cholesterol POC Glucose 164 H Radiography Diagnostic Testing: Radiology Impression Chest X-Ray 05/03/21 18:50 IMPRESSION: Nonacute portable x-ray examination of the chest. Electronically Signed: Leo Sharma MD ([place]) at 19:20 EDT , Service support , Physical Exam Const alert, oriented x3 and no apparent distress Orientation / Consciousness: awake, oriented to person, oriented to place and oriented to time HEENT normocephalic and moist oral mucous membranes Eyes PERRL, EOMs intact bilaterally and conjunctivae normal Neck no lymphadenopathy Resp normal respiratory effort and clear to auscultation bilaterally Cardio regular rate, regular rhythm and no murmurs Peripheral Pulses: pulses 2+ throughout GI normal to inspection, nondistended, normoactive bowel sounds, non-tender and non-distended Extremity normal to inspection Skin no rashes or lesions noted Lesions: no lesions Rashes: no rashes Trauma: no lacerations or abrasions Neuro CN's II-XII intact bilaterally, no focal motor deficits, no sensory deficits noted and deep tendon reflexes 2+ bilaterally Psych mental status grossly normal and affect normal
[2021-05-04 12:40] LABS: Bedside Glucose 164 mg/dL (70-110)
--- NOTE | 2021-05-04 13:09 | PN.HOSP_ITS ---
Documented by User: Jolynn Granger NP, BLIND AIDE-C 05/04/21 13:20 Subjective Subjective Subjective: Patient seen and examined. Reports mild chest tightness on the left side. Denies significant chest pain, denies shortness of breath. Plan for heart cath in a.m. Assessment & Plan 1. NSTEMI, chest pain: Cardiology consulted. On heparin drip.Continue aspirin, statin, carvedilol, nitrate. Plan for heart cath 05/05/21. 2. YADIRA on CKD stage IIIa- YADIRA improved. DC further IV fluids. Trend BMP. 3. 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 No acute failure. Continue medical management. 4. Recent acute anemia with Hemoccult positive stools, underlying iron deficiency-stable. Continue iron supplementation. Trend CBC. Recently taken off of Plavix due to anemia. Will need to reevaluate following heart cath. 5. CAD with history of PCI [id number] medical management as noted above. Follows with Dr. Bae. 6. Hypertension-stable, continue current regimen. 7. Hyperlipidemia-continue statin. 8. Morbid obesity-encouraged diet lifestyle modifications. 9. Type 2 diabetes mellitus-oral regimen on hold. Accu-Cheks with sliding scale insulin. 10. Former tobacco use-encouraged continued cessation. 11. GERD-continue PPI. DVT prophylaxis-heparin drip. This patient was seen by Jolynn Granger NP-C under the supervision of Dr. Gipson. Objective Data Objective Data Vital Signs: Vital Signs Temp Pulse Resp BP Pulse Ox 98.3 F 90 18 112/58 L 96 05/04/21 08:44 05/04/21 08:44 05/04/21 08:44 05/04/21 08:44 05/04/21 08:44 Oxygen Delivery Method Room Air Weight: 280 lb 3.32 oz Body Mass Index (BMI) 40.1 Intake & Output: Intake and Output for Last 24 Hours 05/02/21 05/03/21 05/04/21 23:59 23:59 23:59 Intake Total 1367.66 / 1367.66 Output Total 650 / 650 Balance 717.66 / 717.66 Lab / Micro Data Result Diagrams: 05/04/21 05:31 05/04/21 05:31 Labs: Laboratory Results - last 24 hr 05/03/21 05/03/21 05/03/21 18:33 18:33 20:35 WBC 7.1 RBC 3.50 L Hgb 10.1 L Hct 33.4 L MCV 95.4 H MCH 28.9 MCHC 30.2 L RDW Std Deviation 56.1 H RDW Coeff of Raphael 15.9 H Plt Count 226 MPV 9.4 Immature Gran % (Auto) 0.400 Neut % (Auto) 66.2 Lymph % (Auto) 19.2 [place] % (Auto) 9.3 Eos % (Auto) 4.2 Baso % (Auto) 0.7 Absolute Neuts (auto) 4.7 Absolute Lymphs (auto) 1.36 Nucleated RBC % 0 PT INR APTT Sodium 138 Potassium 3.8 Chloride 102 Carbon Dioxide 26.0 Anion Gap 10 BUN 39 H Creatinine 2.17 H Estim Creat Clear Calc 31.77 Est GFR (MDRD) Af Amer 39 L Est GFR (MDRD) Non-Af 32 L BUN/Creatinine Ratio 18.0 Glucose 142 H Calcium 8.7 Magnesium Total Bilirubin AST ALT Alkaline Phosphatase Troponin I High Sens 300.8 H* 263.8 H* Total Protein Albumin Globulin Albumin/Globulin Ratio Triglycerides Cholesterol LDL Cholesterol VLDL Cholesterol HDL Cholesterol POC Glucose 05/03/21 05/04/21 05/04/21 20:35 00:20 01:20 WBC RBC Hgb Hct MCV MCH MCHC RDW Std Deviation RDW Coeff of Raphael Plt Count MPV Immature Gran % (Auto) Neut % (Auto) Lymph % (Auto) [place] % (Auto) Eos % (Auto) Baso % (Auto) Absolute Neuts (auto) Absolute Lymphs (auto) Nucleated RBC % PT INR APTT 30.2 Sodium Potassium Chloride Carbon Dioxide Anion Gap BUN Creatinine Estim Creat Clear Calc Est GFR (MDRD) Af Amer Est GFR (MDRD) Non-Af BUN/Creatinine Ratio Glucose Calcium Magnesium 2.1 Total Bilirubin AST ALT Alkaline Phosphatase Troponin I High Sens 1191.0 H* Total Protein Albumin Globulin Albumin/Globulin Ratio Triglycerides Cholesterol LDL Cholesterol VLDL Cholesterol HDL Cholesterol POC Glucose 05/04/21 05/04/21 05/04/21 01:25 05:31 05:31 WBC 6.2 RBC 3.09 L Hgb 8.9 L Hct 29.3 L MCV 94.8 H MCH 28.8 MCHC 30.4 L RDW Std Deviation 55.4 H RDW Coeff of Raphael 16.0 H Plt Count 206 MPV 9.9 Immature Gran % (Auto) 0.200 Neut % (Auto) 59.4 Lymph % (Auto) 24.6 [place] % (Auto) 8.9 Eos % (Auto) 6.1 H Baso % (Auto) 0.8 Absolute Neuts (auto) 3.7 Absolute Lymphs (auto) 1.53 Nucleated RBC % 0 PT 14.9 INR 1.2 APTT Sodium 138 Potassium 4.3 Chloride 104 Carbon Dioxide 27.0 Anion Gap 7 BUN 43 H Creatinine 1.86 H Estim Creat Clear Calc 37.07 Est GFR (MDRD) Af Amer 46 L Est GFR (MDRD) Non-Af 38 L BUN/Creatinine Ratio 23.1 H Glucose 120 H Calcium 8.2 L Magnesium Total Bilirubin 0.50 AST 20 ALT 15 L Alkaline Phosphatase 88 Troponin I High Sens Total Protein 6.4 Albumin 3.1 L Globulin 3.3 Albumin/Globulin Ratio 0.9 Triglycerides 42 Cholesterol 88 LDL Cholesterol 39 VLDL Cholesterol 8 HDL Cholesterol 41 POC Glucose 05/04/21 05/04/21 05/04/21 05:31 06:30 08:12 WBC RBC Hgb Hct MCV MCH MCHC RDW Std Deviation RDW Coeff of Raphael Plt Count MPV Immature Gran % (Auto) Neut % (Auto) Lymph % (Auto) [place] % (Auto) Eos % (Auto) Baso % (Auto) Absolute Neuts (auto) Absolute Lymphs (auto) Nucleated RBC % PT INR APTT 247.9 H* Sodium Potassium Chloride Carbon Dioxide Anion Gap BUN Creatinine Estim Creat Clear Calc Est GFR (MDRD) Af Amer Est GFR (MDRD) Non-Af BUN/Creatinine Ratio Glucose Calcium Magnesium Total Bilirubin AST ALT Alkaline Phosphatase Troponin I High Sens 2840.7 H* Total Protein Albumin Globulin Albumin/Globulin Ratio Triglycerides Cholesterol LDL Cholesterol VLDL Cholesterol HDL Cholesterol POC Glucose 125 H 05/04/21 12:23 WBC RBC Hgb Hct MCV MCH MCHC RDW Std Deviation RDW Coeff of Raphael Plt Count MPV Immature Gran % (Auto) Neut % (Auto) Lymph % (Auto) [place] % (Auto) Eos % (Auto) Baso % (Auto) Absolute Neuts (auto) Absolute Lymphs (auto) Nucleated RBC % PT INR APTT Sodium Potassium Chloride Carbon Dioxide Anion Gap BUN Creatinine Estim Creat Clear Calc Est GFR (MDRD) Af Amer Est GFR (MDRD) Non-Af BUN/Creatinine Ratio Glucose Calcium Magnesium Total Bilirubin AST ALT Alkaline Phosphatase Troponin I High Sens Total Protein Albumin Globulin Albumin/Globulin Ratio Triglycerides Cholesterol LDL Cholesterol VLDL Cholesterol HDL Cholesterol POC Glucose 164 H Radiography Diagnostic Testing: Radiology Impression Chest X-Ray 05/03/21 18:50 IMPRESSION: Nonacute portable x-ray examination of the chest. Electronically Signed: Leo Sharma MD ([place]) at 19:20 EDT , Service support , Physical Exam Const alert, oriented x3 and no apparent distress Orientation / Consciousness: awake, oriented to person, oriented to place and oriented to time HEENT normocephalic and moist oral mucous membranes Eyes PERRL, EOMs intact bilaterally and conjunctivae normal Neck no lymphadenopathy Resp normal respiratory effort and clear to auscultation bilaterally Cardio regular rate and regular rhythm Peripheral Pulses: pulses 2+ throughout GI normal to inspection, nondistended, normoactive bowel sounds, non-tender and non-distended Extremity normal to inspection General Extremity: edema bilateral lower extremity Skin no rashes or lesions noted Lesions: no lesions Rashes: no rashes Trauma: no lacerations or abrasions Neuro CN's II-XII intact bilaterally, no focal motor deficits, no sensory deficits noted and deep tendon reflexes 2+ bilaterally Psych mental status grossly normal and affect normal Documented by User: Dr. Boris Gipson DO 05/04/21 15:47 Subjective Subjective Patient seen and examined independently. Data reviewed. I agree with the above note by the nurse practitioner. Patient denies any further chest pain. He stated he was doing well but then to start feeling nauseated and diaphoretic which led him to be concerned about his heart. No acute distress and afebrile. Heart rate regular rate and rhythm plus S1-S2 with a murmurs Rubs. Lungs Are Clear to Auscultation Bilaterally. Assessment and plan 1. Non-STEMI: Continue with clopidogrel, carvedilol, high intensity statin, aspirinl. Continue heparin drip. Seen by cardiology and plan is for left heart catheterization 2. Acute kidney injury: Likely related with diuretics: Improved at this point in time but not quite at his baseline. Diuretics and ARCADIO inhibitor currently on hold. Hold off on additional fluids given patient's heart failure history. Objective Data Lab / Micro Data Result Diagrams: 05/04/21 05:31 05/04/21 05:31 Charges/Coding Visit Charges Inpatient E&M: 96011 Subs Hosp L2
[2021-05-04 17:23] LABS: Partial Thromboplast Time 74.3 Seconds (24.1-36.2)
[2021-05-04 17:56] LABS: Bedside Glucose 174 mg/dL (70-110)
[2021-05-04] MEDS: Atorvastatin Calcium 80 MG Tablet PO (22:05)
[2021-05-04] MEDS: HEPARIN/D5w 25,000 UNITS 25,000 UNITS/250 ML IV.SOLN. 13 UNITS IV (22:41)
[2021-05-04 22:45] LABS: Bedside Glucose 132 mg/dL (70-110)
[2021-05-04 23:28] LABS: Partial Thromboplast Time 76.4 Seconds (24.1-36.2)
[2021-05-05] VITALS (9 sets, daily range): BP systolic 105–130; BP diastolic 54–68; PULSE 59–94; RESP 18–20; TEMP 36.3–37.1; O2SAT 92–97
[2021-05-05 05:13] LABS: Absolute Lymphocyte Count 1.26 X10^3/uL (0.83-4.51); Absolute Neutrophil Count 4.4 X10^3/uL (2.0-7.7); Basophil# 0.03 X10^3/uL; Basophil% 0.5 % (0-1); Eosinophil# 0.38 X10^3/uL; Eosinophils% 5.7 % (0-5); Hematocrit 31.8 % (40-54); Hemoglobin 9.7 g/dL (13.0-16.5); Lymphocyte # 1.26 X10^3/ul (0.83-4.51); Lymphocyte % 18.9 % (19-41); Mean Corp Hgb Conc 30.5 g/dL (32-36); Mean Corpuscular Hgb 29.3 pg (27.0-32.0); Mean Corpuscular Volume 96.1 fL (80-94); Mean Platelet Vol. 9.8 fl (6.2-12.0); Monocyte# 0.55 X10^3/uL; Monocyte% 8.3 % (0-10); NRBC Flagged by Analyzer 0 % (0-5); Neutrophil # 4.43 X10^3/uL (2.7-7.7); Neutrophil % 66.4 % (47-70); Platelet Count 194 K/mm3 (150-450); RBC Distribution Width CV 16.1 % (11.6-14.6); RBC Distribution Width SD 57.2 fl (35.1-43.9); Red Blood Count 3.31 M/mm3 (4.6-6.2); White Blood Count 6.7 K/mm3 (4.4-11.0)
[2021-05-05 05:23] LABS: Partial Thromboplast Time 70.8 Seconds (24.1-36.2)
[2021-05-05 05:28] LABS: Anion Gap 6 (5-15); BUN 41 mg/dL (7-18); BUN/Creat Ratio 24.4 RATIO (10-20); Calcium,Total 8.6 mg/dL (8.5-10.1); Chloride 105 mmol/L (98-107); Creatinine, Serum 1.68 mg/dL (0.70-1.30); EST Glomerular Filtration Rate 43 mL/min (>60); Est Glom Filt Rate - Afr Amer 52 mL/min (>60); Estimated Creatinine Clearance 41.04 ml/min; Glucose 161 mg/dL (74-106); Potassium 4.6 mmol/L (3.5-5.1); Sodium Level 137 mmol/L (136-145)
[2021-05-05 07:00] LABS: Bedside Glucose 133 mg/dL (70-110)
[2021-05-05] MEDS: Morphine 2 MG/ML Syringe IV (07:53)
[2021-05-05] MEDS: 0.9% Saline Lock 10 ML Syringe IV ×2 (07:53→21:09)
[2021-05-05] MEDS: Aspirin E.C. 81 MG Tablet PO (10:04)
[2021-05-05] MEDS: Carvedilol 6.25 MG Tablet PO ×2 (10:04→21:09)
[2021-05-05] MEDS: Pantoprazole Sodium 40 MG Tablet PO ×2 (10:04→21:09)
[2021-05-05] MEDS: Isosorbide Mononitrate 30 MG Tablet PO (10:04)
[2021-05-05] MEDS: Allopurinol 300 MG Tablet PO (10:04)
[2021-05-05] MEDS: Insulin Lispro 100 UNIT/ML INSULN.PEN SC (11:01)
[2021-05-05] MEDS: Ferrous Sulfate 325 MG Tablet PO (11:06)
[2021-05-05 11:25] LABS: Bedside Glucose 151 mg/dL (70-110)
--- NOTE | 2021-05-05 12:05 | PCM.HOSP.N ---
Documented by User: Jolynn Granger NP, ACCOUNT RETENTION REPRESENTATIVE-C 05/05/21 12:12 Hospitalist Note Subjective: Patient seen and examined. Denies significant chest pain. Describes mild tightness/abnormal sensation on the left side of his chest. Plan for heart cath in a.m. Denies other symptoms or complaints. Objective: Labs, vitals, I&Os reviewed. Labs at baseline. Vitals stable. Physical Exam: Const alert, oriented x3 and no apparent distress Orientation / Consciousness: awake, oriented to person, oriented to place and oriented to time HEENT normocephalic and moist oral mucous membranes Eyes PERRL, EOMs intact bilaterally and conjunctivae normal Neck no lymphadenopathy Resp normal respiratory effort and clear to auscultation bilaterally Cardio regular rate and regular rhythm Peripheral Pulses: pulses 2+ throughout GI normal to inspection, nondistended, normoactive bowel sounds, non-tender and non-distended Extremity normal to inspection General Extremity: edema bilateral lower extremity Skin no rashes or lesions noted Lesions: no lesions Rashes: no rashes Trauma: no lacerations or abrasions Neuro CN's II-XII intact bilaterally, no focal motor deficits, no sensory deficits noted and deep tendon reflexes 2+ bilaterally Psych mental status grossly normal and affect normal Assessment & Plan: 1. NSTEMI, chest pain: Cardiology consulted. On heparin drip. Continue aspirin, statin, carvedilol, nitrate. Plan for heart cath 05/06/21. 2. YADIRA on CKD stage IIIa- YADIRA improved. Trend BMP. Hold off on further fluids given underlying reduced EF. 3. 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 No acute failure. Continue medical management. 4. Recent acute anemia with Hemoccult positive stools, underlying iron deficiency-stable. Continue iron supplementation. Trend CBC. Recently taken off of Plavix due to anemia. Will need to reevaluate antiplatelet regimen following heart cath. 5. CAD with history of PCI [id number] medical management as noted above. Follows with Dr. Bae. 6. Hypertension-stable, continue current regimen. 7. Hyperlipidemia-continue statin. 8. Morbid obesity-encouraged diet lifestyle modifications. 9. Type 2 diabetes mellitus-oral regimen on hold. Accu-Cheks with sliding scale insulin. 10. Former tobacco use-encouraged continued cessation. 11. GERD-continue PPI. DVT prophylaxis-heparin drip. This patient was seen by TIMUR Mccrary under the supervision of Dr. Gipson. Documented by User: Dr. Boris Gipson DO 05/05/21 13:40 Hospitalist Note Patient seen and examined independently. Data reviewed. I agree with the above note by the nurse practitioner. Follow up: NSTEMI S: No further chest pain. Feeling well currently. O: 130/58 68 18 36.3 NAD Afebrile. HRRR S1 S2. LCTAB. Abd soft NT ND. Ext taut LE edema. Data: WBC 6.7, Hg 9.7, Plt 194. Cr 1.68 A/P 1. Non-STEMI: Continue with clopidogrel, carvedilol, high intensity statin, aspirin. Continue heparin drip. Seen by cardiology and plan is for left heart catheterization 05/06. 2. Acute kidney injury: Likely related with diuretics: Improved at this point in time but not quite at his baseline. Diuretics and ARCADIO inhibitor currently on hold. Hold off on additional fluids given patient's heart failure history. Visit Charges Inpatient E&M: 53920 Subs Hosp L2
--- NOTE | 2021-05-05 13:38 | PCM.PN.CARD ---
Subjective Subjective The patient appears to be resting comfortably at this time. He denies any ongoing chest discomfort or difficulty breathing. Objective Data Vital Signs: Vital Signs Temp Pulse Resp BP Pulse Ox 97.4 F L 86 18 130/58 H 97 05/05/21 10:00 05/05/21 10:00 05/05/21 10:00 05/05/21 10:00 05/05/21 10:00 Oxygen Delivery Method Room Air Weight: 280 lb 6.848 oz Body Mass Index (BMI) 40.1 Intake & Output: Intake and Output for Last 24 Hours 05/03/21 05/04/21 05/05/21 23:59 23:59 23:59 Intake Total 1822.37 / 2122.37 818 / 818 Output Total 1050 / 1300 875 / 875 Balance 772.37 / 822.37 -57 / -57 Lab / Micro Data Result Diagrams: 05/05/21 05:05 05/05/21 05:05 Labs: Laboratory Results - last 24 hr 05/04/21 05/04/21 05/04/21 17:00 17:40 22:01 WBC RBC Hgb Hct MCV MCH MCHC RDW Std Deviation RDW Coeff of Raphael Plt Count MPV Immature Gran % (Auto) Neut % (Auto) Lymph % (Auto) [place] % (Auto) Eos % (Auto) Baso % (Auto) Absolute Neuts (auto) Absolute Lymphs (auto) Nucleated RBC % APTT 74.3 H Sodium Potassium Chloride Carbon Dioxide Anion Gap BUN Creatinine Estim Creat Clear Calc Est GFR (MDRD) Af Amer Est GFR (MDRD) Non-Af BUN/Creatinine Ratio Glucose Calcium POC Glucose 174 H 132 H 05/04/21 05/05/21 05/05/21 23:09 05:05 05:05 WBC 6.7 RBC 3.31 L Hgb 9.7 L Hct 31.8 L MCV 96.1 H MCH 29.3 MCHC 30.5 L RDW Std Deviation 57.2 H RDW Coeff of Raphael 16.1 H Plt Count 194 MPV 9.8 Immature Gran % (Auto) 0.200 Neut % (Auto) 66.4 Lymph % (Auto) 18.9 L [place] % (Auto) 8.3 Eos % (Auto) 5.7 H Baso % (Auto) 0.5 Absolute Neuts (auto) 4.4 Absolute Lymphs (auto) 1.26 Nucleated RBC % 0 APTT 76.4 H Sodium 137 Potassium 4.6 Chloride 105 Carbon Dioxide 26.0 Anion Gap 6 BUN 41 H Creatinine 1.68 H Estim Creat Clear Calc 41.04 Est GFR (MDRD) Af Amer 52 L Est GFR (MDRD) Non-Af 43 L BUN/Creatinine Ratio 24.4 H Glucose 161 H Calcium 8.6 POC Glucose 05/05/21 05/05/21 05/05/21 05:05 06:52 11:00 WBC RBC Hgb Hct MCV MCH MCHC RDW Std Deviation RDW Coeff of Raphael Plt Count MPV Immature Gran % (Auto) Neut % (Auto) Lymph % (Auto) [place] % (Auto) Eos % (Auto) Baso % (Auto) Absolute Neuts (auto) Absolute Lymphs (auto) Nucleated RBC % APTT 70.8 H Sodium Potassium Chloride Carbon Dioxide Anion Gap BUN Creatinine Estim Creat Clear Calc Est GFR (MDRD) Af Amer Est GFR (MDRD) Non-Af BUN/Creatinine Ratio Glucose Calcium POC Glucose 133 H 151 H Cardiology Labs/Tests 05/04/21 17:00: APTT 74.3 H 05/04/21 23:09: APTT 76.4 H 05/05/21 05:05: WBC 6.7, RBC 3.31 L, Hgb 9.7 L, Hct 31.8 L, MCV 96.1 H, MCH 29.3, MCHC 30.5 L, Plt Count 194, MPV 9.8, Immature Gran % (Auto) 0.200, Neut % (Auto) 66.4, Lymph % (Auto) 18.9 L, [place] % (Auto) 8.3, Eos % (Auto) 5.7 H, Baso % (Auto) 0.5, Absolute Neuts (auto) 4.4, Nucleated RBC % 0 05/05/21 05:05: Sodium 137, Potassium 4.6, Chloride 105, Carbon Dioxide 26.0, Anion Gap 6, BUN 41 H, Creatinine 1.68 H, Est GFR (MDRD) Af Amer 52 L, Est GFR (MDRD) Non-Af 43 L, BUN/Creatinine Ratio 24.4 H, Glucose 161 H, Calcium 8.6 05/05/21 05:05: APTT 70.8 H Rhythm: Sinus rhythm; PVCs ECHO: 04-16-2021 Interpretation Summary Normal LV size. Left ventricular systolic function is normal. The estimated ejection fraction is 45 %. [place] : Hypokinetic. Mild aortic stenosis. Moderate focal aortic valve calcification. Calculated aortic valve area (continuity equation) is 1.6 cm2. Contrast injection was performed. Compared to previous study, the left ventricular systolic function is the same.. Stress Test: 02-07-2021 Stress Test Report Pharmacologic myocardial perfusion stress test. 72-year-old man with coronary artery disease for preoperative evaluation. Stress protocol: Resting EKG demonstrates normal sinus rhythm with a rate of 62 bpm normal intervals are noted resting blood pressure is 1 and 38 over 70 mmHg. 0.4 mg of regadenoson was infused per usual protocol followed by rapid intravenous saline flush injection continuous EKG monitoring was performed. Maximum heart rate attained was 83 bpm which was 56% of max impacted heart rate the maximum workload was 1 metabolic equivalent. At rest there were no ST or T wave changes noted to suggest ischemia and at peak infusion nonspecific ST changes were noted to suggest ischemia. His final blood pressure was 132/64 mmHg. Myocardial perfusion protocol. 14.8 mCi of technetium 99m sestamibi was injected at rest. 0.4 mg of regadenoson was infused per usual protocol. At peak infusion 44.5 mCi of technetium 99m sestamibi was injected stress images were obtained stress and rest images were reconstructed and compared in the short axis vertical and horizontal long axis. Gated images were also obtained Perfusion SPECT analysis: Review of the stress images demonstrate mildly reduced perfusion in the anterior septal wall towards the apex. The lateral wall and inferior wall appeared to be normally perfused. The resting images demonstrate a similar patent. The above is not suggestive of ischemia. At previous anterior septal apical infarct cannot be completely excluded. Rest of the de souza are normally perfused. Gated SPECT analysis: The gated ejection fraction is 40%. Conclusion: Pharmacologic myocardial perfusion stress test with no evidence of ischemia. Mild cardiomyopathy present. Previous small anterior septal/apical infarct cannot be completely excluded. Cardiac Cath: 01-24-2020 CONCLUSIONS Severe coronary disease with proximal LAD stenosis prior to the stent with in-stent stenosis, the stents to the circumflex artery are patent, the stent to the right coronary artery has a high-grade in-stent stenosis. Moderate aortic stenosis by echocardiogram is noted RECOMMENDATIONS Referred for immediate PCI DESCRIPTION OF PROCEDURE The patient arrived to the procedure lab. The risks and benefits of the procedure as well as a full description of our services here and current unavailability of surgical backup were fully explained to the patient and/or their significant other prior to the catheterization. The Timeout was completed, verifying the correct patient and procedure. The patient's procedural site was prepped and draped in the usual fashion. Local anesthetic was given subcutaneously to right radial region with Lidocaine 2%. Local anesthetic was given subcutaneously to right groin region with Lidocaine 2%. Using a modified Seldinger technique, arterial access was obtained via the right radial artery, a 6Fr sheath was inserted., arterial access was obtained via the right femoral artery, a 6Fr 55cm sheath was inserted. Right Coronary Artery selective angiography was then performed in multiple views using a 5 Fr. 4.0 [place] catheter. Left Coronary Artery selective angiography was performed in multiple views using a 5 Fr. 4.0 [place] catheter.The arterial sheath was pulled and a TR Band was applied for hemostasis - 10cc air CORONARY ANGIOGRAPHY DOMINANCE: Right Dominant LEFT HEART ASSESSMENT Left Ventricular Ejection Fraction: by Echo 55 % Normal LV wall motion Normal Left Ventricular systolic function LEFT MAIN: Angiographically normal LEFT ANTERIOR DESCENDING ARTERY: PROX LAD: 95 % Stenosis, Instent restenosis 80 % DIAGONAL 1: Proximal - Moderate luminal irregularities up to 50% CIRCUMFLEX ARTERY: MID CIRC: Previously placed stent is patent RIGHT CORONARY ARTERY: MID RCA: Previously placed stent has an instent 90 % restenosis VALVE FINDINGS: Aortic Valve Calcification - moderate PCI: 01-24-2020 PTCA/TAMIA to the proximal LAD with a 2.5x24 Promus Synergy stent PTCA/TAMIA of the mid RCA with a 3.0x24 Promus Synergy stent Physical Exam Const alert, oriented x3 and no apparent distress Orientation / Consciousness: awake HEENT normocephalic, head/scalp atraumatic and hearing grossly normal bilaterally Eyes PERRL, EOMs intact bilaterally and conjunctivae normal Neck supple and no JVD Chest inspection of chest normal Resp clear to auscultation bilaterally Cardio regular rate, regular rhythm, S1 normal heart sound and S2 normal heart sound Heart Sounds: murmur systolic III/ harsh left sternal border, LVOT and sternal notch GI normal to inspection, nondistended, normoactive bowel sounds Extremity General Extremity: edema bilateral lower extremity (Left greater than right) Details: mild Skin no rashes or lesions noted Psych mental status grossly normal Procedure Criteria Type of Procedure Procedure Type: Elective Elective Risks - COVID COVID Risk Discussion: The surgeon/proceduralist and patient have discussed in detail the risk of exposure to and/or potential harm posed by the COVID-19 virus with having a surgery/procedure at this time versus the risk of delaying the surgery/procedure. It is not possible to know either the risk of delaying the surgery or procedure or chance of getting an infection with perfect accuracy, but a joint decision was made between the patient and the surgeon/proceduralist to proceed at this time with the scheduled surgery/procedure as indicated on the consent form.
[2021-05-05] MEDS: HEPARIN/D5w 25,000 UNITS 25,000 UNITS/250 ML IV.SOLN. 13 UNITS IV (13:47)
--- NOTE | 2021-05-05 14:53 | CHAPLAIN ---
Type of Pastoral Visit _x__ Initial Visit ___ Follow-up Visit ___ On-call Visit ___ General Patient Visit ___ Spiritual Assessment ___ Family Conference ___ Bereavement ___ Rapid Response ___ Code Blue ___ Other (describe below) Pastoral Care Referral From _x__ Patient ___ Family ___ Nurse ___ Physician ___ Sieve Maker ___ Securities And Real Estate Director ___ Other (describe below) Sacrament/Intervention _x__ Active listening ___ Anointing ___ Lutheran ___ Bereavement ___ Communion _x__ Genia exploration ___ _x__ Life review _x__ Prayer ___ Reconciliation ___ Sacrament of Sick _x__ Supportive presence ___ Wedding ___ Other (describe below) Pastoral Comments patient has been seen before by this private equity analyst; pt loves to talk and gives his view of what is happening and life
[2021-05-05 16:31] LABS: Bedside Glucose 133 mg/dL (70-110)
[2021-05-05] MEDS: Atorvastatin Calcium 80 MG Tablet PO (21:09)
[2021-05-05 21:31] LABS: Bedside Glucose 106 mg/dL (70-110)
[2021-05-06] VITALS (15 sets, daily range): BP systolic 89–120; BP diastolic 52–70; PULSE 61–82; RESP 18–20; TEMP 36.7; O2SAT 95–99
--- NOTE | 2021-05-06 05:55 | EKG12_ITS ---
Test Reason : AM EKG Blood Pressure : / mmHG Vent. Rate : 079 BPM Atrial Rate : 079 BPM P-R Int : 188 ms QRS Dur : 102 ms QT Int : 396 ms P-R-T Axes : 059 -24 110 degrees QTc Int : 454 ms Normal sinus rhythm Nonspecific T wave abnormality Abnormal ECG When compared with ECG of 03-MAY-2021 23:38, MANUAL COMPARISON REQUIRED, DATA IS UNCONFIRMED Confirmed by REYNA MOYER, CINTHYA ([id number]), newspaper photo editor EDYTA NEIL ([id number]) on 05/13/2021 7:41:17 AM Referred By: DR GARCIAS Confirmed By:CINTHYA ORELLANA MD
[2021-05-06] MEDS: Isosorbide Mononitrate 30 MG Tablet PO (06:40)
[2021-05-06] MEDS: Carvedilol 6.25 MG Tablet PO (06:40)
[2021-05-06] MEDS: Aspirin E.C. 81 MG Tablet PO (06:40)
[2021-05-06 06:51] LABS: Bedside Glucose 142 mg/dL (70-110)
[2021-05-06 06:53] LABS: Absolute Lymphocyte Count 0.95 X10^3/uL (0.83-4.51); Absolute Neutrophil Count 3.9 X10^3/uL (2.0-7.7); Basophil# 0.03 X10^3/uL; Basophil% 0.5 % (0-1); Eosinophil# 0.25 X10^3/uL; Eosinophils% 4.4 % (0-5); Hematocrit 31.2 % (40-54); Hemoglobin 9.5 g/dL (13.0-16.5); Lymphocyte # 0.95 X10^3/ul (0.83-4.51); Lymphocyte % 16.7 % (19-41); Mean Corp Hgb Conc 30.4 g/dL (32-36); Mean Corpuscular Hgb 29.1 pg (27.0-32.0); Mean Corpuscular Volume 95.4 fL (80-94); Mean Platelet Vol. 10.7 fl (6.2-12.0); Monocyte# 0.51 X10^3/uL; NRBC Flagged by Analyzer 0 % (0-5); Neutrophil # 3.91 X10^3/uL (2.7-7.7); Neutrophil % 68.9 % (47-70); Platelet Count 185 K/mm3 (150-450); RBC Distribution Width SD 56.3 fl (35.1-43.9); Red Blood Count 3.27 M/mm3 (4.6-6.2); White Blood Count 5.7 K/mm3 (4.4-11.0)
[2021-05-06 07:07] LABS: Partial Thromboplast Time 32.3 Seconds (24.1-36.2)
[2021-05-06 07:35] LABS: Anion Gap 5 (5-15); BUN 44 mg/dL (7-18); BUN/Creat Ratio 26.2 RATIO (10-20); Calcium,Total 8.8 mg/dL (8.5-10.1); Chloride 105 mmol/L (98-107); Creatinine, Serum 1.68 mg/dL (0.70-1.30); EST Glomerular Filtration Rate 43 mL/min (>60); Est Glom Filt Rate - Afr Amer 52 mL/min (>60); Estimated Creatinine Clearance 41.04 ml/min; Glucose 134 mg/dL (74-106); Potassium 4.6 mmol/L (3.5-5.1); Sodium Level 137 mmol/L (136-145); Troponin-I HS 1036.4 pg/mL (3.0-78.5)
--- NOTE | 2021-05-06 07:42 | CPS ---
Pt has a CPAP @home but is noncompliant. At home, it is in it's original box where it has been for years. He is not interested in wearing one of our machines.
--- NOTE | 2021-05-06 08:42 | PCM.PN.CARD ---
Subjective Subjective Patient seen and evaluated. Underwent cardiac catheterization today. Objective Data Vital Signs: Vital Signs Temp Pulse Resp BP Pulse Ox 98.1 F 61 20 H 120/67 97 05/06/21 06:38 05/06/21 07:00 05/06/21 06:38 05/06/21 06:38 05/06/21 07:42 Oxygen Delivery Method Room Air Weight: 283 lb 4.704 oz Body Mass Index (BMI) 40.1 Intake & Output: Intake and Output for Last 24 Hours 05/04/21 05/05/21 05/06/21 23:59 23:59 23:59 Intake Total 1822.37 / 2122.37 1328.93 / 1568.93 456.17 / 456.17 Output Total 1050 / 1300 1300 / 1300 375 / 375 Balance 772.37 / 822.37 28.93 / 268.93 81.17 / 81.17 Lab / Micro Data Result Diagrams: 05/06/21 05:41 05/06/21 05:41 Labs: Laboratory Results - last 24 hr 05/05/21 05/05/21 05/05/21 11:00 16:27 21:08 WBC RBC Hgb Hct MCV MCH MCHC RDW Std Deviation RDW Coeff of Raphael Plt Count MPV Immature Gran % (Auto) Neut % (Auto) Lymph % (Auto) [place] % (Auto) Eos % (Auto) Baso % (Auto) Absolute Neuts (auto) Absolute Lymphs (auto) Nucleated RBC % APTT Sodium Potassium Chloride Carbon Dioxide Anion Gap BUN Creatinine Estim Creat Clear Calc Est GFR (MDRD) Af Amer Est GFR (MDRD) Non-Af BUN/Creatinine Ratio Glucose Calcium Troponin I High Sens POC Glucose 151 H 133 H 106 05/06/21 05/06/21 05/06/21 05:41 05:41 05:41 WBC 5.7 RBC 3.27 L Hgb 9.5 L Hct 31.2 L MCV 95.4 H MCH 29.1 MCHC 30.4 L RDW Std Deviation 56.3 H RDW Coeff of Raphael 16.0 H Plt Count 185 MPV 10.7 Immature Gran % (Auto) 0.500 Neut % (Auto) 68.9 Lymph % (Auto) 16.7 L [place] % (Auto) 9.0 Eos % (Auto) 4.4 Baso % (Auto) 0.5 Absolute Neuts (auto) 3.9 Absolute Lymphs (auto) 0.95 Nucleated RBC % 0 APTT 32.3 Sodium 137 Potassium 4.6 Chloride 105 Carbon Dioxide 27.0 Anion Gap 5 BUN 44 H Creatinine 1.68 H Estim Creat Clear Calc 41.04 Est GFR (MDRD) Af Amer 52 L Est GFR (MDRD) Non-Af 43 L BUN/Creatinine Ratio 26.2 H Glucose 134 H Calcium 8.8 Troponin I High Sens 1036.4 H* POC Glucose 05/06/21 06:36 WBC RBC Hgb Hct MCV MCH MCHC RDW Std Deviation RDW Coeff of Raphael Plt Count MPV Immature Gran % (Auto) Neut % (Auto) Lymph % (Auto) [place] % (Auto) Eos % (Auto) Baso % (Auto) Absolute Neuts (auto) Absolute Lymphs (auto) Nucleated RBC % APTT Sodium Potassium Chloride Carbon Dioxide Anion Gap BUN Creatinine Estim Creat Clear Calc Est GFR (MDRD) Af Amer Est GFR (MDRD) Non-Af BUN/Creatinine Ratio Glucose Calcium Troponin I High Sens POC Glucose 142 H Cardiology Labs/Tests 05/06/21 05:41: WBC 5.7, RBC 3.27 L, Hgb 9.5 L, Hct 31.2 L, MCV 95.4 H, MCH 29.1, MCHC 30.4 L, Plt Count 185, MPV 10.7, Immature Gran % (Auto) 0.500, Neut % (Auto) 68.9, Lymph % (Auto) 16.7 L, [place] % (Auto) 9.0, Eos % (Auto) 4.4, Baso % (Auto) 0.5, Absolute Neuts (auto) 3.9, Nucleated RBC % 0 05/06/21 05:41: Sodium 137, Potassium 4.6, Chloride 105, Carbon Dioxide 27.0, Anion Gap 5, BUN 44 H, Creatinine 1.68 H, Est GFR (MDRD) Af Amer 52 L, Est GFR (MDRD) Non-Af 43 L, BUN/Creatinine Ratio 26.2 H, Glucose 134 H, Calcium 8.8 05/06/21 05:41: APTT 32.3 Rhythm: EKG: ECHO: Estimated ejection fraction of 45% with mild aortic stenosis. Stress Test: Cardiac Cath: PCI: CT Surgery: Holter monitor: EPS: PPM: CXR: Chest CT Scan: Physical Exam Const oriented x3 and healthy appearing Orientation / Consciousness: awake HEENT normocephalic Eyes PERRL and conjunctivae normal Neck supple, no JVD and no carotid bruits Chest inspection of chest normal Resp normal respiratory effort and clear to auscultation bilaterally Cardio Palpation: normal PMI Rate: regular rate Rhythm: regular rhythm Heart Sounds: S1 normal, S2 normal and murmur Peripheral Pulses: pulses 2+ throughout GI normal to inspection, nondistended, normoactive bowel sounds Extremity normal to inspection and no clubbing, cyanosis or edema Psych mental status grossly normal Assessment & Plan Assessment/Plan (1) History of coronary artery stent placement: PLAN: He is status post cardiac catheterization today. It demonstrated patent stents in the LAD, left circumflex artery, and the dominant right coronary artery. Mild in-stent stenosis was noted. At this time he does not appear that there is any lesion which is immediately amenable to PCI. We will continue with aggressive medical therapy. Suggest increase isosorbide to 60 mg a day. Search for alternate causes of chest discomfort such as gallbladder discomfort. This is especially as patient developed chest discomfort after eating fried chicken. (2) Non-rheumatic aortic stenosis: PLAN: Patient has mild to moderate aortic stenosis. Per echocardiographic evaluation from April this does not appear to be significantly changed from a year ago. I will continue medical management. (3) Essential (primary) hypertension: PLAN: His blood pressure is under good control at this particular time I would not suggest that we make any changes. (4) Hyperlipidemia: PLAN: He will continue with aggressive risk factor modification. From the cardiovascular standpoint the patient can be discharged for outpatient follow-up.
--- NOTE | 2021-05-06 08:56 | CL.D_ITS ---
Patient Name: LUIS DEE Study Date: 05/06/2021 Performing: Sabas Bae MD Ht: 70 inches 178 cm : 1950 Wt: 284.8 lbs 129 kg Age: 71 Gender: male BSA: 2.43 PROCEDURE(S) PERFORMED [id number] CLINICAL PROFILE AND INDICATIONS Indications: ACS <= 24 hrs Heart Failure: None Stress/Imaging Stress/Image Study Performed: No CAD Presentations: Unstable angina. CONCLUSIONS Previously placed stents in the LAD, left circumflex artery, right coronary artery are patent with no high-grade stenosis noted. The aortic valve is mildly calcified and mildly stenotic with mild left ventricular systolic dysfunct ion. RECOMMENDATIONS Medical therapy DESCRIPTION OF PROCEDURE The patient arrived to the procedure lab. The risks and benefits of the procedure as well as a full d escription of our services here and current unavailability of surgical backup were fully explained to the patient and/or their significant other prior to the catheterization. The Timeout was completed, verifying the correct patient and procedure. The patient's procedural site was prepped and draped in the usual fashion. Local anesthetic was given subcutaneously to right radial region with Lidocaine 2% . Using a modified Seldinger technique, arterial access was obtained via the right radial artery, a 6 Fr sheath was inserted. Right Coronary Artery selective angiography was then performed in multiple v iews using a 5 Fr. 4.0 [place] catheter. Left Coronary Artery selective angiography was performed in mu ltiple views using a 5 Fr. 4.0 [place] catheter.The arterial sheath was pulled and a TR Band was applie d for hemostasis CORONARY ANGIOGRAPHY DOMINANCE: Right Dominant LEFT HEART ASSESSMENT Left Ventricular Ejection Fraction: by Echo 45 % Normal LV wall motion Depressed Left Ventricular systolic function LEFT MAIN: Mild calcification, Non-obstructive LEFT ANTERIOR DESCENDING ARTERY: PROX LAD: Previously placed stent is patent MID LAD: Previously placed stent is patent DISTAL LAD: Moderate luminal irregularities up to 50% CIRCUMFLEX ARTERY: MID CIRC: Previously placed stent is patent RIGHT CORONARY ARTERY: PROX RCA: Previously placed stent has an instent 30 % restenosis MID RCA: Previously placed stent is patent DISTAL RCA: Previously placed stent is patent RT PLV: 50 % Stenosis VALVE FINDINGS: Aortic Valve Calcification - mild COMPLICATIONS No Complications PROCEDURE MEDICATIONS Versed 1 mg IV Fentanyl 50 mcg IV Versed 1 mg IV Oxygen: 2 L/min via nasal cannula Heparin given IA 05/06/2021 08:29:05 Verapamil 2.5mg, Ntg 100mcgs, 3000 units of Heparin given IA 05/06/2021 08:29:05 SUMMARY OF HEMODYNAMIC DATA Time AIR REST ECG 08:08:08 AO 84/49 (63) SA 08:31:32 AO 92/56 (72) 08:32:07 Signed By Sabas Bae MD On 05/06/2021 8:55:27 AM Sabas Bae MD
[2021-05-06] MEDS: Pantoprazole Sodium 40 MG Tablet PO (09:10)
[2021-05-06] MEDS: 0.9% Normal Saline 1,000 ML 60 ML IV (09:10)
[2021-05-06] MEDS: Allopurinol 300 MG Tablet PO (09:10)
[2021-05-06] MEDS: Isosorbide Mononitrate 60 MG Tablet PO (09:13)
--- NOTE | 2021-05-06 10:27 | PCM.DC ---
Discharge Instructions Diet Discharge Diet: Low fat / Low cholesterol Activity Discharge Activity: Return to Normal Activity Dressing / Incision Call your doctor if you observe: Shortness of breath, Dizziness and Chest pain Follow Up Care Test Results: Test results from this visit will be discussed in further detail at your follow-up appointment, if applicable. Discharge Plan Admission Admit Date/Time: 05/03/21 23:03 Primary Reason for Your Visit: Chest pain Attending Provider: Boris Gipson Primary Care Provider: [place] Figueroa Consulting Providers: Fede Wise Discharge Orders/Prescriptions Prescriptions: New isosorbide mononitrate 60 mg Tablet Extended Release 24 Hr 60 mg PO DAILY Qty: 30 RF: 0 pantoprazole 40 mg Tablet,Delayed Release (Dr/Ec) 40 mg PO BID Qty: 30 RF: 0 Continued aspirin [Adult Aspirin Regimen] 81 mg tablet,delayed release (DR/EC) 81 mg PO QDAY RF: 0 multivitamin [Daily Multi-Vitamin] tablet 1 tab PO DAILY RF: 0 nitroglycerin 0.4 mg tablet, sublingual 0.4 mg SUBLINGUAL Q5-15M PRN (Reason: CP) RF: 0 glipizide 5 mg tablet 5 mg PO BID RF: 0 allopurinol 300 MG tablet 300 mg PO DAILY RF: 0 spironolactone 25 mg Tablet 12.5 mg PO DAILY Qty: 15 RF: 0 torsemide 20 mg tablet 20 mg PO BID Qty: 60 RF: 0 sennosides-docusate sodium [Stool Softener-Stimulant Laxat] 8.6-50 mg Tablet 2 tab PO BID PRN PRN (Reason: Constipation) Qty: 0 RF: 0 ferrous sulfate [FeroSul] 325 mg (65 mg iron) Tablet 325 mg PO LUNCH Qty: 30 RF: 0 carvedilol 6.25 mg tablet 6.25 mg PO BID Qty: 180 RF: 3 atorvastatin 80 mg tablet 80 mg PO QHS Qty: 90 RF: 3 lisinopril 10 mg tablet 10 mg PO DAILY Qty: 90 RF: 3 Held clopidogrel 75 mg tablet 75 mg PO DAILY RF: 0 Hold Instructions: Resume on 05/16/21. Following discussion with cardiology. Discontinued pantoprazole 40 mg Tablet,Delayed Release (Dr/Ec) 40 mg PO DAILY Qty: 30 RF: 0 isosorbide mononitrate 30 mg tablet extended release 24 hr 30 mg PO DAILY Qty: 90 RF: 3 Referrals / Follow Up: Sabas Bae MD [STAFF PHYSICIAN] - See Referral Note (As scheduled 05/16/2021) [place] Figueroa MD [Primary Care Provider] - 05/13/21 11:00 am (Appointment is with Elina Fierro N.P.) Disposition Disposition (needs filled in before D/C Order can be placed): Home, Self Care
--- NOTE | 2021-05-06 10:44 | PCM.DC.SUM ---
Documented by User: Jolynn Granger NP, DRAW END HAND-C 05/06/21 10:59 Providers Date of Admission: 05/03/21 Date of Discharge: 05/06/21 Primary Care Physician: Dr. [place] Figueroa MD Consultations 05/03/21 23:26 Consult: Cardiology Routine Consulting Provider: Fede Wise Reason for Consult: Chest pain, 01/2021 stress, recent CHF admit, multiple PCI EMERGENT Consult: No MD Notified: Yes Date Notified: 05/03/21 Time Notified: 23:02 Method of Notification: cortext Reason For Visit: YADIRA, CHEST PAIN, INDETERM TROP Diagnosis Discharge Diagnosis (1) History of coronary artery stent placement: Status: Resolved Code(s): Z95.5 - Presence of coronary angioplasty implant and graft (2) Non-rheumatic aortic stenosis: Status: Chronic Code(s): I35.0 - Nonrheumatic aortic (valve) stenosis (3) Essential (primary) hypertension: Status: Chronic Code(s): I10 - Essential (primary) hypertension (4) Hyperlipidemia: Status: Chronic Code(s): E78.5 - Hyperlipidemia, unspecified Medications at Discharge Home Medications allopurinol 300 mg PO DAILY 04/10/16 aspirin 81 mg tablet,delayed release 81 mg PO QDAY 04/14/18 multivitamin 1 tab PO DAILY 01/25/19 nitroglycerin 0.4 mg sublingual tablet 0.4 mg SUBLINGUAL Q5-15M PRN 01/25/19 glipizide 5 mg tablet 5 mg PO BID tab 05/23/19 carvedilol 6.25 mg tablet 6.25 mg PO BID #180 tab 01/18/20 atorvastatin 80 mg tablet 80 mg PO QHS #90 tab 04/08/20 lisinopril 10 mg tablet 10 mg PO DAILY #90 tab 04/24/20 clopidogrel 75 mg PO DAILY 04/16/21 ferrous sulfate [FeroSul] 325 mg PO LUNCH #30 tab 04/18/21 sennosides-docusate sodium [Stool Softener-Stimulant Laxat] 2 tab PO BID PRN PRN #0 tab 04/18/21 spironolactone 12.5 mg PO DAILY #15 tab 04/18/21 torsemide 20 mg PO BID #60 tab 04/18/21 isosorbide mononitrate 60 mg PO DAILY #30 tab 05/06/21 pantoprazole 40 mg PO BID #30 tab 05/06/21 Hospital Course Operations None Procedures Cardiac catheterization Summary of Care Provided Minutes Spent on Discharge: 35 Hospital Course: Patient is a 71-year-old male admitted 05/03/2021 due to chest pain. 1. NSTEMI, chest pain: Cardiology consulted. Patient underwent heart cath which showed no high-grade stenosis, aortic valve mildly calcified and mildly stenotic with mild left ventricular systolic dysfunction. Continue aspirin, statin, carvedilol, nitrate. Isosorbide increased to 60 mg daily. Follow-up with cardiology as scheduled at 05/16/2021. 2. YADIRA on CKD stage IIIa- YADIRA improved, creatinine stable. Patient is on lisinopril, spironolactone, torsemide which he will resume at discharge. Recommend repeat BMP in 1 week. If creatinine again worsens, will need to consider reducing diuretic regimen. 3. 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 No acute failure. Continue medical management. 4. Recent acute anemia with Hemoccult positive stools, underlying iron deficiency-stable. Continue iron supplementation. Recently taken off of Plavix due to anemia. Plan to continue to hold Plavix at this time as hemoglobin is not yet up to baseline and patient did not require new stents. Patient has upcoming follow-up with cardiology, will need to reevaluate if Plavix should be resumed at that time. 5. CAD with history of PCI [id number] medical management as noted above. Follows with Dr. Bae. 6. Hypertension-stable, continue current regimen. 7. Hyperlipidemia-continue statin. 8. Morbid obesity-encouraged diet lifestyle modifications. 9. Type 2 diabetes mellitus-continue home oral regimen. 10. Former tobacco use-encouraged continued cessation. 11. GERD-continue PPI. Physical Exam: Const alert, oriented x3 and no apparent distress Orientation / Consciousness: awake, oriented to person, oriented to place and oriented to time HEENT normocephalic and moist oral mucous membranes Eyes PERRL, EOMs intact bilaterally and conjunctivae normal Neck no lymphadenopathy Resp normal respiratory effort and clear to auscultation bilaterally Cardio regular rate and regular rhythm Peripheral Pulses: pulses 2+ throughout GI normal to inspection, nondistended, normoactive bowel sounds, non-tender and non-distended Extremity normal to inspection General Extremity: edema bilateral lower extremity Skin no rashes or lesions noted Lesions: no lesions Rashes: no rashes Trauma: no lacerations or abrasions Neuro CN's II-XII intact bilaterally, no focal motor deficits, no sensory deficits noted and deep tendon reflexes 2+ bilaterally Psych mental status grossly normal and affect normal Patient seen and examined prior to discharge. Physical assessment as noted above. Patient is stable for discharge with follow up recommendations as noted above. This patient was seen by TIMUR Mccrary under the supervision of Dr. Gipson. Weight / BMI Weight Weight: 283 lb 4.704 oz Body Mass Index (BMI) 40.1 ABG / Lab / Microbiology Data Result Diagrams: 05/06/21 05:41 05/06/21 05:41 Laboratory: Laboratory Results - last 24 hr 05/05/21 05/05/21 05/05/21 11:00 16:27 21:08 WBC RBC Hgb Hct MCV MCH MCHC RDW Std Deviation RDW Coeff of Raphael Plt Count MPV Immature Gran % (Auto) Neut % (Auto) Lymph % (Auto) [place] % (Auto) Eos % (Auto) Baso % (Auto) Absolute Neuts (auto) Absolute Lymphs (auto) Nucleated RBC % APTT Sodium Potassium Chloride Carbon Dioxide Anion Gap BUN Creatinine Estim Creat Clear Calc Est GFR (MDRD) Af Amer Est GFR (MDRD) Non-Af BUN/Creatinine Ratio Glucose Calcium Troponin I High Sens POC Glucose 151 H 133 H 106 05/06/21 05/06/21 05/06/21 05:41 05:41 05:41 WBC 5.7 RBC 3.27 L Hgb 9.5 L Hct 31.2 L MCV 95.4 H MCH 29.1 MCHC 30.4 L RDW Std Deviation 56.3 H RDW Coeff of Raphael 16.0 H Plt Count 185 MPV 10.7 Immature Gran % (Auto) 0.500 Neut % (Auto) 68.9 Lymph % (Auto) 16.7 L [place] % (Auto) 9.0 Eos % (Auto) 4.4 Baso % (Auto) 0.5 Absolute Neuts (auto) 3.9 Absolute Lymphs (auto) 0.95 Nucleated RBC % 0 APTT 32.3 Sodium 137 Potassium 4.6 Chloride 105 Carbon Dioxide 27.0 Anion Gap 5 BUN 44 H Creatinine 1.68 H Estim Creat Clear Calc 41.04 Est GFR (MDRD) Af Amer 52 L Est GFR (MDRD) Non-Af 43 L BUN/Creatinine Ratio 26.2 H Glucose 134 H Calcium 8.8 Troponin I High Sens 1036.4 H* POC Glucose 05/06/21 06:36 WBC RBC Hgb Hct MCV MCH MCHC RDW Std Deviation RDW Coeff of Raphael Plt Count MPV Immature Gran % (Auto) Neut % (Auto) Lymph % (Auto) [place] % (Auto) Eos % (Auto) Baso % (Auto) Absolute Neuts (auto) Absolute Lymphs (auto) Nucleated RBC % APTT Sodium Potassium Chloride Carbon Dioxide Anion Gap BUN Creatinine Estim Creat Clear Calc Est GFR (MDRD) Af Amer Est GFR (MDRD) Non-Af BUN/Creatinine Ratio Glucose Calcium Troponin I High Sens POC Glucose 142 H D/C Instructions Discharge Diet: Low fat / Low cholesterol Call your doctor if you observe: Shortness of breath, Dizziness and Chest pain Meaningful Use Info Meaningful Use Diagnoses (Choose all that apply): AMI AMI/Post PCI/Angioplasty Aspirin given w/in 24hrs of arrival?: Yes ASA at discharge?: Yes Statins at discharge?: Yes Alirio/ARB at discharge?: Yes Beta Betty at discharge?: Yes Done w/ Acute [place] measure.: Yes Discharge Plan Admission Admit Date/Time: 05/03/21 23:03 Primary Reason for Your Visit: Chest pain Attending Provider: Boris Gipson Primary Care Provider: [place] Figueroa Consulting Providers: Fede Wise Instructions Additional Instructions / Restrictions: Patient Problems: Altered Health Status related to Hospitalization Patient Goals: *Optimal Level of Health *Keep Appointments *Medication Compliance *Remain Safe Discharge Orders/Prescriptions Prescriptions: New isosorbide mononitrate 60 mg Tablet Extended Release 24 Hr 60 mg PO DAILY Qty: 30 RF: 0 pantoprazole 40 mg Tablet,Delayed Release (Dr/Ec) 40 mg PO BID Qty: 30 RF: 0 Continued aspirin [Adult Aspirin Regimen] 81 mg tablet,delayed release (DR/EC) 81 mg PO QDAY RF: 0 multivitamin [Daily Multi-Vitamin] tablet 1 tab PO DAILY RF: 0 nitroglycerin 0.4 mg tablet, sublingual 0.4 mg SUBLINGUAL Q5-15M PRN (Reason: CP) RF: 0 glipizide 5 mg tablet 5 mg PO BID RF: 0 allopurinol 300 MG tablet 300 mg PO DAILY RF: 0 spironolactone 25 mg Tablet 12.5 mg PO DAILY Qty: 15 RF: 0 torsemide 20 mg tablet 20 mg PO BID Qty: 60 RF: 0 sennosides-docusate sodium [Stool Softener-Stimulant Laxat] 8.6-50 mg Tablet 2 tab PO BID PRN PRN (Reason: Constipation) Qty: 0 RF: 0 ferrous sulfate [FeroSul] 325 mg (65 mg iron) Tablet 325 mg PO LUNCH Qty: 30 RF: 0 carvedilol 6.25 mg tablet 6.25 mg PO BID Qty: 180 RF: 3 atorvastatin 80 mg tablet 80 mg PO QHS Qty: 90 RF: 3 lisinopril 10 mg tablet 10 mg PO DAILY Qty: 90 RF: 3 Held clopidogrel 75 mg tablet 75 mg PO DAILY RF: 0 Hold Instructions: Resume on 05/02/21. until follow up with PCP Discontinued pantoprazole 40 mg Tablet,Delayed Release (Dr/Ec) 40 mg PO DAILY Qty: 30 RF: 0 isosorbide mononitrate 30 mg tablet extended release 24 hr 30 mg PO DAILY Qty: 90 RF: 3 Referrals / Follow Up: Sabas Bae MD [STAFF PHYSICIAN] - 05/16/21 9:15 am (As scheduled 05/16/2021) [place] Figueroa MD [Primary Care Provider] - 05/13/21 11:00 am (Appointment is with Elina Fierro N.P.) Disposition Discharge Orders: Discharge Patient (Routine); Ordered 05/06/21 Ordered By: Jolynn Granger NP Documented by User: Dr. Boris Gipson DO 05/06/21 15:31 Providers Date of Admission: 05/03/21 Reason For Visit: YADIRA, CHEST PAIN, INDETERM TROP Medications at Discharge Home Medications allopurinol 300 mg PO DAILY 04/10/16 aspirin 81 mg tablet,delayed release 81 mg PO QDAY 04/14/18 multivitamin 1 tab PO DAILY 01/25/19 nitroglycerin 0.4 mg sublingual tablet 0.4 mg SUBLINGUAL Q5-15M PRN 01/25/19 glipizide 5 mg tablet 5 mg PO BID tab 05/23/19 carvedilol 6.25 mg tablet 6.25 mg PO BID #180 tab 01/18/20 atorvastatin 80 mg tablet 80 mg PO QHS #90 tab 04/08/20 lisinopril 10 mg tablet 10 mg PO DAILY #90 tab 04/24/20 clopidogrel 75 mg PO DAILY 04/16/21 ferrous sulfate [FeroSul] 325 mg PO LUNCH #30 tab 04/18/21 sennosides-docusate sodium [Stool Softener-Stimulant Laxat] 2 tab PO BID PRN PRN #0 tab 04/18/21 spironolactone 12.5 mg PO DAILY #15 tab 04/18/21 torsemide 20 mg PO BID #60 tab 04/18/21 isosorbide mononitrate 60 mg PO DAILY #30 tab 05/06/21 pantoprazole 40 mg PO BID #30 tab 05/06/21 Hospital Course Procedures Cardiac catheterization Summary of Care Provided Minutes Spent on Discharge: 32 Hospital Course: Patient seen and examined independently. Data reviewed. I agree with the above note by the nurse practitioner. Patient presents with diaphoresis nausea and chest pain. Patient found to have non-ST elevation myocardial infarction. Left heart catheterization showed nonobstructive coronary disease. Medical management recommended. Patient will be discharged home in stable condition. Patient did have transient acute kidney injury but that subsequent resolved with holding his diuretics as well as giving some IV fluids. Physical Exam Const alert General Appearance: cooperative Resp normal respiratory effort, no retractions, no use of accessory muscles and clear to auscultation bilaterally Cardio regular rate, regular rhythm, S1 normal heart sound and S2 normal heart sound GI normal to inspection, nondistended, normoactive bowel sounds, soft to palpation, non-tender and non-distended Neuro Sensorium / Orientation: awake and alert ABG / Lab / Microbiology Data Result Diagrams: 05/06/21 05:41 05/06/21 05:41 Discharge Plan Admission Admit Date/Time: 05/03/21 23:03 Primary Reason for Your Visit: Chest pain Attending Provider: Boris Gipson Primary Care Provider: [place] Figueroa Consulting Providers: Fede Wise Instructions Additional Instructions / Restrictions: Patient Problems: Altered Health Status related to Hospitalization Patient Goals: *Optimal Level of Health *Keep Appointments *Medication Compliance *Remain Safe Discharge Orders/Prescriptions Prescriptions: New isosorbide mononitrate 60 mg Tablet Extended Release 24 Hr 60 mg PO DAILY Qty: 30 RF: 0 pantoprazole 40 mg Tablet,Delayed Release (Dr/Ec) 40 mg PO BID Qty: 30 RF: 0 Continued aspirin [Adult Aspirin Regimen] 81 mg tablet,delayed release (DR/EC) 81 mg PO QDAY RF: 0 multivitamin [Daily Multi-Vitamin] tablet 1 tab PO DAILY RF: 0 nitroglycerin 0.4 mg tablet, sublingual 0.4 mg SUBLINGUAL Q5-15M PRN (Reason: CP) RF: 0 glipizide 5 mg tablet 5 mg PO BID RF: 0 allopurinol 300 MG tablet 300 mg PO DAILY RF: 0 spironolactone 25 mg Tablet 12.5 mg PO DAILY Qty: 15 RF: 0 torsemide 20 mg tablet 20 mg PO BID Qty: 60 RF: 0 sennosides-docusate sodium [Stool Softener-Stimulant Laxat] 8.6-50 mg Tablet 2 tab PO BID PRN PRN (Reason: Constipation) Qty: 0 RF: 0 ferrous sulfate [FeroSul] 325 mg (65 mg iron) Tablet 325 mg PO LUNCH Qty: 30 RF: 0 carvedilol 6.25 mg tablet 6.25 mg PO BID Qty: 180 RF: 3 atorvastatin 80 mg tablet 80 mg PO QHS Qty: 90 RF: 3 lisinopril 10 mg tablet 10 mg PO DAILY Qty: 90 RF: 3 Held clopidogrel 75 mg tablet 75 mg PO DAILY RF: 0 Hold Instructions: Resume on 05/02/21. until follow up with PCP Discontinued pantoprazole 40 mg Tablet,Delayed Release (Dr/Ec) 40 mg PO DAILY Qty: 30 RF: 0 isosorbide mononitrate 30 mg tablet extended release 24 hr 30 mg PO DAILY Qty: 90 RF: 3 Referrals / Follow Up: Sabas Bae MD [STAFF PHYSICIAN] - 05/16/21 9:15 am (As scheduled 05/16/2021) Boston Figueroa MD [Primary Care Provider] - 05/13/21 11:00 am (Appointment is with Elina Fierro N.P.) Disposition Discharge Orders: Discharge Patient (Routine); Ordered 05/06/21 Ordered By: Jolynn Grnager NP Charges/Coding Visit Charges Inpatient E&M: 17845 Disch Hosp
--- NOTE | 2021-05-06 10:48 | PHA.DC.MR ---
Pharmacy Service has performed discharge medication reconciliation for this patient. The patient's discharge medication list was reviewed for discrepancies and discrepancies were resolved. Home Medications allopurinol 300 mg PO DAILY 04/10/16 aspirin 81 mg tablet,delayed release 81 mg PO QDAY 04/14/18 multivitamin 1 tab PO DAILY 01/25/19 nitroglycerin 0.4 mg sublingual tablet 0.4 mg SUBLINGUAL Q5-15M PRN 01/25/19 glipizide 5 mg tablet 5 mg PO BID tab 05/23/19 carvedilol 6.25 mg tablet 6.25 mg PO BID #180 tab 01/18/20 atorvastatin 80 mg tablet 80 mg PO QHS #90 tab 04/08/20 lisinopril 10 mg tablet 10 mg PO DAILY #90 tab 04/24/20 clopidogrel 75 mg PO DAILY 04/16/21 ferrous sulfate [FeroSul] 325 mg PO LUNCH #30 tab 04/18/21 sennosides-docusate sodium [Stool Softener-Stimulant Laxat] 2 tab PO BID PRN PRN #0 tab 04/18/21 spironolactone 12.5 mg PO DAILY #15 tab 04/18/21 torsemide 20 mg PO BID #60 tab 04/18/21 isosorbide mononitrate 60 mg PO DAILY #30 tab 05/06/21 pantoprazole 40 mg PO BID #30 tab 05/06/21
[2021-05-06] MEDS: Ferrous Sulfate 325 MG Tablet PO (11:14)
--- NOTE | 2021-05-06 11:32 | CASEMGMT ---
Addendum entered by Coreen Jordan 05/06/21 12:06: Palliative referral was sent last visit. Karlos MOROCHO CM Original Note: Readmission chart review: Pt was admitted 04/15-04/18/21 for Acute exac HF. Pt declined need for any further therapy/resources at discharge and did not qualify for home oxygen. Pt returned to [facility] ED on for chest pain x20 minutes and pt has hx of 8 stents. Pt was admitted for YADIRA, CP, indeter trop. Pt had heart cath today and no new stents placed. CM to follow for any further discharge planning/needs. Karlos MOROCHO CM
[2021-05-06 11:55] LABS: Bedside Glucose 140 mg/dL (70-110)
--- NOTE | 2021-05-08 13:25 | CASEMGMT ---
Addendum entered by Coreen Jordan 05/12/21 15:23: This RN CM received a message from pt to call him back for f/u phone call. Call back to pt and phone went straight to voicemail. Message left for pt to call this RN CM back if/when able. Karlos RN CM Original Note: RN CM Discharge F/U Phone Call LACE: 13 Strata: 3 Discharge date: 05/06/21 Call date: 05/08/21 Call time: [phone] Attempted to reach pt without success, message left for pt to call this RN CM back if/when able. Karlos RN CM Admission dx: YADIRA, CP, Indeter trop
== END 2021-05-06 13:08 | disposition home or self-care (01) | DRG 281 ==
LOC: ED 22:32 → PCU 05-04 03:28
PROVIDERS: Nurse Practitioner Family; Admitting Provider Family Medicine; Emergency Provider Emergency Medicine; PCP Family Medicine
DX: I21.4 Non-ST elevation (NSTEMI) myocardial infarction (principal); T82.855A Stenosis of coronary artery stent, initial encounter; Z68.41 Body mass index [BMI] 40.0-44.9, adult; N17.9 Acute kidney failure, unspecified; I13.0 Hypertensive heart and chronic kidney disease with heart failure and stage 1 through stage 4 chronic kidney disease, or unspecified chronic kidney disease; I50.42 Chronic combined systolic (congestive) and diastolic (congestive) heart failure; I25.110 Atherosclerotic heart disease of native coronary artery with unstable angina pectoris; E11.22 Type 2 diabetes mellitus with diabetic chronic kidney disease; N18.31 Chronic kidney disease, stage 3a; I95.9 Hypotension, unspecified; I25.5 Ischemic cardiomyopathy; I27.21 Secondary pulmonary arterial hypertension; D50.9 Iron deficiency anemia, unspecified; I35.0 Nonrheumatic aortic (valve) stenosis; E78.5 Hyperlipidemia, unspecified; I89.0 Lymphedema, not elsewhere classified; M19.90 Unspecified osteoarthritis, unspecified site; M10.9 Gout, unspecified; K21.9 Gastro-esophageal reflux disease without esophagitis; G47.33 Obstructive sleep apnea (adult) (pediatric); E66.01 Morbid (severe) obesity due to excess calories; Z79.82 Long term (current) use of aspirin; Z79.02 Long term (current) use of antithrombotics/antiplatelets; Z79.84 Long term (current) use of oral hypoglycemic drugs; Z79.899 Other long term (current) drug therapy; I25.2 Old myocardial infarction; Z95.5 Presence of coronary angioplasty implant and graft; Z87.891 Personal history of nicotine dependence
CPT/HCPCS: 36415; 71045; 80048; 80053; 80061; 82962; 83735; 84484; 85025; 85610; 85730; 93005; 93454; 99152; 99153; 99251; 99285; 99406; J7030; A4216; C1769; C1894; G0463; Q9967

== ENCOUNTER 2021-05-20 07:00 | Outpatient (RCR) | payer MEDICARE, SELFPAY ==
[2020-03-07 09:49] VITALS: BMI 41.8
[2021-02-03 09:43] VITALS: BMI 42.7
--- NOTE | 2021-02-14 15:38 | HP.PTEVAL ---
Patient's Visit Information LUIS DEE is a 71 year old M referred to Physical Therapy by Dr. Boston Mueller, DO with a diagnosis of UNILATERAL PRIMARY OSTEOARTHRITIS LEFT KNEE,VARUS DEFORMITY ,LEFT KNEE PAIN. Date of Evaluation: 02/14/21 Physical Therapist: Rodo Laguna, PT, Cert MDT, OCS - Visit Plan Frequency: 2-3x /Week Duration: 6 Weeks Plan: S/P LEFT TKA 02/10/21 -ADVISED PATIENT TO CALL MD CONCERNING INSCISON DRAINING BLOOD. PT INTERVENTIONS AAROM/AAROM LEFT KNEE ,STRENGTHENING QUADS/HAMS,GAIT/ BALANCE TRAINING ,VASO/CP FOE EDEMA,NUSTEP/BIKE FOR ROM - Subjective This 71 y/o male presenst to physical therapy with left TKA Patient underwent s/p TKA on 02/10/21 done [facility] done by Dr Mueller . Patient d/c 02/12/21 with F[facility]. Patient has h/o knee pain many years with varus deformity. Patiient has h/o CO and stents. Patient is on pain MEDS OXYCODINE ,tramadol. Denies parathesia/tingling. Home sitistion 1 story home with one step. Walk-shower .Patient has had 2007 right TKR and stents 2019.Patient knee surgery affects function and ADL'S. SOCIAL: . VOCATION: retired - Pain Right Knee Pain Intensity (Out of 10): 5 Pain Intensity Range: 10 - Objective POSTURE: mild foward posture ,hips/knees slightly flexed. INSCION: dressing ,bloody distal dressing well approximate. EDEMA: girth patella 57.5 cm,girth 6 suprapatella 64.2 cm. GAIT: ambulates with fww with decrease stance time wirh decrease swing phase slow marty mild foward marty 150feet. BALANCE: fair + with fww. BED MOBLITY: supine-st max assist ,sit -supine mod assist. TRANFERS : SIT-STAND MOD ASSIST. NEURO: C/O parathesia around inscion. MMT: QUADS 7.6,hamstrings 10.8,hip flexion 6.8. AAROM: 4-55 supne left knee flexion. TU.1 SECONDS. WOMAC : 82.6 - Goals Goal 1:: I with HEP Goal Time Frame: 4-6 Weeks Goal 2:: Patient to increase AROM knee flexion 0-110 supine knee flexion to improve stairs Goal Time Frame: 4-6 Weeks Goal 3:: Patient to increase strength of quads/hams 40.5 to improve function. Goal Time Frame: 4-6 Weeks Goal 4:: Patient to ambulate with cane and/or no device with improved gait pattern community distances. Goal Time Frame: 4-6 Weeks Goal 5:: Patient to improve LFES score by 10-15 points or> to improve gait AND Goal Time Frame: 4-6 Weeks Goal 6:: Patient to improve WOMAC score by 30-40 or to improve function and QOL Goal Time Frame: 4-6 Weeks - Rehabilitation Potential Physical Therapy Diagnosis: This patient underwent s/p left TKA with pain ,increase swelling ,drainage superior inscion,decrease ROM ,strength left knee impairs gait and function thus will benifit from skilled PT Rehabilitation Potential: Good - Anticipated Interventions Patient/Client Instruction: Educate patient on: Condition, Plan of Care For the Purpose of:: To decrease pain, To decrease swelling/inflammation, To increase ROM, To improve muscle performance and motor function, To improve ability to perform ADL's, To increase tolerance to activity/condition/position, To improve performance and independence with ADL's, To improve ability of physical actions for home/community/work/leisure, To improve health of tissue, To decrease soft tissue restriction, To increase flexibility/ROM, To improve endurance, To improve balance, To reduce risk of recurrence Therapeutic Exercise to Include: Strength training, Endurance training, Flexibilty training, Gait and locomotor training, Passive ROM, Active ROM Comment: PRE'S QUADS/HAMS/HIP For the Purpose of:: To decrease pain, To decrease swelling/inflammation, To increase ROM, To improve muscle performance and motor function, To improve ability to perform ADL's, To increase tolerance to activity/condition/position, To improve performance and independence with ADL's, To improve ability of physical actions for home/community/work/leisure, To improve gait and locomotor functions, To improve health of tissue, To decrease soft tissue restriction, To increase flexibility/ROM, To improve endurance, To improve balance Cryotherapy (ice pack, ice massage): Yes Vasopneumatic device: Yes For the Purpose of:: To decrease pain, To decrease swelling/inflammation, To improve nutrient delivery to tissue, To increase oxygenation perfusion, To improve health of tissue, To decrease soft tissue restriction Thank you for the opportunity to evaluate your patient. For Medicare and Medicare HMO plans, please review the plan of care and approve it. It will need to be FAXED BACK to us at [phone] for Medicare purposes. For Medicare only, by signing this I certify the plan of care. Please let me know if there are questions or concerns regarding this plan of care. Physician Signature: Date:
--- NOTE | 2021-05-20 07:49 | HP.PT.NRP ---
LUIS DEE was seen in my office for initial evaluation on 02/14/21. The following Plan of Care was established for this patient: Initial Frequency: 2-3x /Week Initial Duration: 6 Weeks Patient/Client Instruction: Educate patient on: Condition, Plan of Care For the Purpose of:: To decrease pain, To decrease swelling/inflammation, To increase ROM, To improve muscle performance and motor function, To improve ability to perform ADL's, To increase tolerance to activity/condition/position, To improve performance and independence with ADL's, To improve ability of physical actions for home/community/work/leisure, To improve health of tissue, To decrease soft tissue restriction, To increase flexibility/ROM, To improve endurance, To improve balance, To reduce risk of recurrence Therapeutic Exercise to Include: Strength training, Endurance training, Flexibilty training, Gait and locomotor training, Passive ROM, Active ROM For the Purpose of:: To decrease pain, To decrease swelling/inflammation, To increase ROM, To improve muscle performance and motor function, To improve ability to perform ADL's, To increase tolerance to activity/condition/position, To improve performance and independence with ADL's, To improve ability of physical actions for home/community/work/leisure, To improve gait and locomotor functions, To improve health of tissue, To decrease soft tissue restriction, To increase flexibility/ROM, To improve endurance, To improve balance Cryotherapy (ice pack, ice massage): Yes Vasopneumatic device: Yes For the Purpose of:: To decrease pain, To decrease swelling/inflammation, To improve nutrient delivery to tissue, To increase oxygenation perfusion, To improve health of tissue, To decrease soft tissue restriction This patient was last seen in our office . Pertinent comments regarding their Physical therapy will appear below: At this point I will be discontinuing this patient from physical therapy. I would be happy to see this patient again in the future if found appropriate by the physician. Thank you! Rodo Laguna, PT, Cert MDT, OCS
== END 2021-05-20 19:00 | disposition home or self-care (01) ==
LOC: PT 07:00
PROVIDERS: PCP Family Medicine; Referring Provider Orthopaedic Surgery; Visit Provider Orthopaedic Surgery
DX: Z47.1 Aftercare following joint replacement surgery (principal); M17.12 Unilateral primary osteoarthritis, left knee; M21.162 Varus deformity, not elsewhere classified, left knee; G89.18 Other acute postprocedural pain; Z96.652 Presence of left artificial knee joint; M24.661 Ankylosis, right knee
CPT/HCPCS: 97016; 97110; 97162; 97530

== ENCOUNTER 2021-07-22 14:30 | Inpatient (IN) | payer MEDICARE, SELFPAY ==
[2020-03-07 09:49] VITALS: BMI 41.8
[2021-07-22] VITALS (10 sets, daily range): BP systolic 90–150; BP diastolic 57–90; PULSE 65–88; RESP 14–18; TEMP 36–36.7; O2SAT 95–100; BMI 37.0; BMI 35.8
--- NOTE | 2021-07-22 14:55 | EKG12_ITS ---
Test Reason : GI BLEED Blood Pressure : / mmHG Vent. Rate : 075 BPM Atrial Rate : 075 BPM P-R Int : 148 ms QRS Dur : 100 ms QT Int : 372 ms P-R-T Axes : 034 -14 089 degrees QTc Int : 415 ms Normal sinus rhythm Inferior infarct , age undetermined Abnormal ECG Confirmed by REYNA MOYER, CINTHYA ([id number]), news editor EDYTA NEIL ([id number]) on 07/23/2021 10:56:45 AM Referred By: LUI Confirmed By:CINTHYA ORELLANA MD
--- NOTE | 2021-07-22 15:00 | ED.VIS.GI ---
HPI HPI - GI History of Present Illness Chief Complaint: GI Bleed Narrative Narrative: 71-year-old male presenting with concern for GI bleed. He states he feels overall unwell. He feels cold. He states he has had some nausea and is trying to vomit but only some comes up. He denies hematemesis or coffee-ground emesis. Patient has history of GI bleed in the past. He is currently on aspirin daily. Patient is complaining of some lower abdominal pain which is mild. He describes it as cramping. He also admits to some diarrhea. He states that his stools are black. He also states that he takes iron supplements. Patient has not had a fever but does state he has chills. He does not have body aches. No loss of taste or smell. Patient denies chest pain or shortness of breath. [facility] Medical History (Updated 07/22/21 @ 20:[address] Moise Friend, DO) Abdominal pain Atherosclerosis of coronary artery without angina pectoris Bilateral lower extremity edema Chest pain Chronic HFrEF (heart failure with reduced ejection fraction) Chronic kidney disease (CKD) COPD (chronic obstructive pulmonary disease) Dermatitis Diastolic dysfunction Elevated liver enzymes Essential (primary) hypertension Fatty liver Former smoker Gout History of non-ST elevation myocardial infarction (NSTEMI) (05/05/21) History of stress test Hyperlipidemia Ischemic cardiomyopathy Kidney stones Morbid obesity with BMI of 40.0-44.9, adult Non-rheumatic aortic stenosis Obstructive sleep apnea Osteoarthritis Secondary pulmonary arterial hypertension Type 2 diabetes mellitus Home Medications allopurinol 300 mg PO DAILY 04/10/16 [History Last Taken 07/21/21] aspirin 81 mg tablet,delayed release 81 mg PO DAILY 04/14/18 [History Last Taken 07/22/21] multivitamin 1 tab PO DAILY 01/25/19 [History Last Taken 07/21/21] glipizide 5 mg tablet 5 mg PO BID tab 05/23/19 [History Last Taken 07/21/21] torsemide 20 mg PO BID #60 tab 04/18/21 [Rx Last Taken 07/21/21] ferrous sulfate 325 mg (65 mg iron) tablet 325 mg PO BID tab 05/16/21 [History Last Taken 07/21/21] atorvastatin 80 mg tablet 80 mg PO QHS #14 tab 06/23/21 [Rx Last Taken 07/21/21] carvedilol 6.25 mg tablet 6.25 mg PO BID #28 tab 06/23/21 [Rx Last Taken 07/21/21] lisinopril 10 mg tablet 10 mg PO DAILY #90 tab 06/23/21 [Rx Last Taken 07/21/21] pantoprazole 40 mg PO DAILY 07/22/21 [History Last Taken 07/20/21] spironolactone 25 mg PO DAILY 07/22/21 [History Last Taken 07/21/21] Allergy/AdvReac Type Severity Reaction Status Date / Time metformin AdvReac Elevated Verified 07/22/21 14:31 LDH and anion gap Family History Mother , Age 80 Diabetes Hypertension Father , Age 55, coma Diabetes Hypertension Sister Hypertension Brother Diabetes Hypertension Cancer, Onset Age: 50 prostate cancer CAD (coronary artery disease) Surgical History History of appendectomy History of coronary artery stent placement (01/24/20) History of herniorrhaphy History of left heart catheterization (05/06/21) History of tonsillectomy History of total knee replacement (TKR) Social History household members: children Smoking Status: Former smoker quit date: 01/31/11 alcohol intake: current alcohol intake frequency: holidays/special occasions only substance use type: does not use caffeine: Yes Type: coffee ROS ROS ED Constitutional Constitutional ED: Reports chills; Denies fever(s) ENT ENT ED: Denies rhinorrhea or sore throat Cardiovascular Cardiovascular: Denies chest pain or palpitations Respiratory/Chest Respiratory/Chest: Denies cough or dyspnea Gastrointestinal Gastrointestinal: Reports abdominal pain, diarrhea, nausea and vomiting Genitourinary Genitourinary ED: Denies dysuria or hematuria Musculoskeletal Musculoskeletal: Denies arthralgias, myalgias or neck pain Integumentary Denies abscess or rash Neurologic Neurologic: Reports headache(s); Denies paresthesias EXAM Physical Exam Const Vital Signs: 07/22/21 14:32 07/22/21 15:31 07/22/21 16:13 Temperature 96.8 F L Temperature Source Temporal Pulse Rate 88 72 73 Respiratory Rate 18 18 18 Blood Pressure 90/66 116/71 118/81 H Blood Pressure Mean 74 86 93 Pulse Ox 100 100 98 Oxygen Delivery Method Room Air Room Air Room Air 07/22/21 17:04 07/22/21 18:01 07/22/21 18:55 Temperature 98.1 F Temperature Source Oral Pulse Rate 73 81 68 Respiratory Rate 18 18 18 Blood Pressure 115/57 L 150/90 H 150/90 H Blood Pressure Mean 76 110 110 Pulse Ox 96 98 95 Oxygen Delivery Method Room Air Room Air Room Air 07/22/21 19:21 Temperature Temperature Source Pulse Rate 65 Respiratory Rate 14 Blood Pressure 112/61 Blood Pressure Mean 78 Pulse Ox 97 Oxygen Delivery Method Room Air Positive well nourished General Appearance ED: NAD; Negative for pallor HEENT Reports moist mucous membranes normocephalic and atraumatic Eyes PERRL and EOMs intact bilaterally General Eye ED: Negative for pale conjunctiva or scleral icterus Neck supple Resp normal respiratory effort and clear to auscultation bilaterally Cardio regular rate and regular rhythm GI GI Narrative: Mild lower abdominal tenderness in the midline and left lower quadrant. Palpation: soft Neuro Sensorium / Orientation: alert and oriented to person Psych mental status grossly normal and thought process normal Skin General Skin Exam: Negative for pallor Lesions: no lesions Rashes: no rashes MDM MDM MDM Narrative Medical decision making narrative: Patient presenting slightly hypotensive and concern for GI bleeding stating is having black stools. For this reason I did type and screen him with by lab work. Hemoccult did return negative. Patient's hemoglobin is 14.2. He has no leukocytosis. Patient does take iron pills and possibly this is why he concerns of black stool. Patient's urinalysis is negative. Renal function is acutely changed from previous and is creatinine is now 8.21. He was given 2 L of IV fluids in the ED. Electrolytes are within normal limits. LFTs are normal. Patient is having some vague cramping abdominal pain and points to left lower quadrant so I did obtain a CT of the abdomen pelvis without contrast due to the patient's renal function this does not identify any acute intra-abdominal process. Patient's blood pressure has improved with IV fluids. He will be discussed with the hospitalist for admission. Impression: 1. Acute renal failure 2. Abdominal pain Lab Data Labs: Laboratory Results - last 24 hr 07/22/21 07/22/21 07/22/21 14:45 14:48 14:48 WBC 9.7 RBC 4.89 Hgb 14.2 Hct 45.5 MCV 93.0 MCH 29.0 MCHC 31.2 L RDW Std Deviation 56.2 H RDW Coeff of Raphael 16.7 H Plt Count 144 L MPV 12.7 H Immature Gran % (Auto) 0.200 Neut % (Auto) 76.8 H Lymph % (Auto) 13.7 L Hanson % (Auto) 6.2 Eos % (Auto) 2.8 Baso % (Auto) 0.3 Absolute Neuts (auto) 7.5 Absolute Lymphs (auto) 1.33 Nucleated RBC % 0 Sodium 138 Potassium 5.1 Chloride 104 Carbon Dioxide 22.0 Anion Gap 12 BUN 167 H* Creatinine 8.21 H* Estim Creat Clear Calc 8.13 Est GFR (MDRD) Af Amer 8 L Est GFR (MDRD) Non-Af 7 L BUN/Creatinine Ratio 20.3 H Glucose 132 H Calcium 10.0 Total Bilirubin 0.70 0.70 Direct Bilirubin 0.24 0.22 AST 13 L 11 L ALT 16 16 Alkaline Phosphatase 113 112 Troponin I High Sens 61 Total Protein 8.3 H 8.4 H Albumin 3.9 3.8 Globulin 4.4 H 4.6 H Lipase 317 Urine Color Urine Clarity Urine pH Ur Specific Martin Urine Protein Urine Glucose (UA) Urine Ketones Urine Occult Blood Urine Nitrite Urine Bilirubin Urine Urobilinogen Ur Leukocyte Esterase Urine RBC Urine WBC Ur Squamous Epith Cells Urine Bacteria Hyaline Casts Urine Mucus Blood Type Antibody Screen 07/22/21 07/22/21 14:50 16:05 WBC RBC Hgb Hct MCV MCH MCHC RDW Std Deviation RDW Coeff of Raphael Plt Count MPV Immature Gran % (Auto) Neut % (Auto) Lymph % (Auto) Hanson % (Auto) Eos % (Auto) Baso % (Auto) Absolute Neuts (auto) Absolute Lymphs (auto) Nucleated RBC % Sodium Potassium Chloride Carbon Dioxide Anion Gap BUN Creatinine Estim Creat Clear Calc Est GFR (MDRD) Af Amer Est GFR (MDRD) Non-Af BUN/Creatinine Ratio Glucose Calcium Total Bilirubin Direct Bilirubin AST ALT Alkaline Phosphatase Troponin I High Sens Total Protein Albumin Globulin Lipase Urine Color Yellow Urine Clarity Clear Urine pH 5.0 Ur Specific Martin 1.015 Urine Protein Negative Urine Glucose (UA) Normal Urine Ketones Negative Urine Occult Blood Negative Urine Nitrite Negative Urine Bilirubin Negative Urine Urobilinogen Normal Ur Leukocyte Esterase Negative Urine RBC 0 SEEN Urine WBC 0 SEEN Ur Squamous Epith Cells 0 SEEN Urine Bacteria 0 SEEN Hyaline Casts 0-5 SEEN Urine Mucus 0 SEEN Blood Type A POSITIVE Antibody Screen NEGATIVE Radiography Diagnostic Testing: Radiology Impression Chest X-Ray 07/22/21 15:13 IMPRESSION: No acute abnormality is seen. Electronically Signed: Dima White MD at 15:34 EDT , Service support , Abdomen/Pelvis CT 07/22/21 16:37 IMPRESSION: Diverticular disease of colon without evidence for acute diverticulitis. No evidence for small bowel obstruction. Cholelithiasis without evidence for acute cholecystitis. Left nephrolithiasis without evidence for renal obstruction Electronically Signed: Boston Patel MD at 17:13 EDT , Service support , Discharge Plan Disposition Disposition: Acute Care Hospital [facility] Discharge Date/Time: 07/22/21 20:39
[2021-07-22] MEDS: 0.9% Normal Saline 1,000 ML 1000 ML IV (15:08)
[2021-07-22] MEDS: Ondansetron 4 MG/2 ML Vial IV (15:08)
--- NOTE | 2021-07-22 15:13 | RAD_ITS ---
STUDY: X-RAY CHEST REASON FOR EXAM: Male, 71 years old. Hypotension TECHNIQUE: Single AP portable view of the chest. COMPARISON: Comparison is made with prior study dated 05/03/2021. FINDINGS: The lungs are clear and expanded. There is no demonstrated pleural abnormality. Normal size heart. Normal mediastinum and simi. Normal visualized pulmonary arteries. There is atherosclerotic tortuosity of the aortic arch and descending thoracic aorta. There are diffuse degenerative changes of the visualized thoracic spine. Normal visualized ribs, clavicles, and shoulders. There is no demonstrated abnormality of the visualized soft tissue structures of the upper abdomen. RAD/Chest 1 View (Portable) IMPRESSION: No acute abnormality is seen. Electronically Signed: Dima White MD at 15:34 EDT , Service support ,
[2021-07-22 15:15] LABS: Absolute Lymphocyte Count 1.33 X10^3/uL (0.83-4.51); Absolute Neutrophil Count 7.5 X10^3/uL (2.0-7.7); Basophil# 0.03 X10^3/uL; Basophil% 0.3 % (0-1); Eosinophil# 0.27 X10^3/uL; Eosinophils% 2.8 % (0-5); Hematocrit 45.5 % (40-54); Hemoglobin 14.2 g/dL (13.0-16.5); Lymphocyte # 1.33 X10^3/ul (0.83-4.51); Lymphocyte % 13.7 % (19-41); Mean Corp Hgb Conc 31.2 g/dL (32-36); Mean Platelet Vol. 12.7 fl (6.2-12.0); Monocyte% 6.2 % (0-10); NRBC Flagged by Analyzer 0 % (0-5); Neutrophil # 7.48 X10^3/uL (2.7-7.7); Neutrophil % 76.8 % (47-70); Platelet Count 144 K/mm3 (150-450); RBC Distribution Width CV 16.7 % (11.6-14.6); RBC Distribution Width SD 56.2 fl (35.1-43.9); Red Blood Count 4.89 M/mm3 (4.6-6.2); White Blood Count 9.7 K/mm3 (4.4-11.0)
[2021-07-22 15:44] LABS: AST(SGOT) 11 U/L (15-37); Alanine Aminotransfer ALT/SGPT 16 U/L (16-61); Albumin, Serum 3.8 g/dL (3.2-5.0); Alkaline Phosphatase 112 U/L (45-117); Anion Gap 12 (5-15); BUN 167 mg/dL (7-18); BUN/Creat Ratio 20.3 RATIO (10-20); Bilirubin, Direct 0.22 mg/dL (0.00-0.30); Chloride 104 mmol/L (98-107); Creatinine, Serum 8.21 mg/dL (0.70-1.30); EST Glomerular Filtration Rate 7 mL/min (>60); Est Glom Filt Rate - Afr Amer 8 mL/min (>60); Estimated Creatinine Clearance 8.13 ml/min; Globulin 4.6 g/dL (2.2-4.2); Glucose 132 mg/dL (74-106); Lipase 317 U/L (73-393); Potassium 5.1 mmol/L (3.5-5.1); Protein, Total 8.4 g/dL (6.4-8.2); Sodium Level 138 mmol/L (136-145); Troponin-I HS 61 pg/mL (3.0-78.0)
[2021-07-22 16:13] LABS: Bacteria 0 SEEN /hpf (None Seen); Mucous, Urine 0 SEEN /hpf (<or=2+); Red Blood Cells-Urine 0 SEEN /hpf (0-5); Squamous Epithelial Cells - UA 0 SEEN /hpf (0-5); White Blood Cells 0 SEEN /hpf (0-5)
[2021-07-22 16:14] LABS: Color, Urine Yellow (Yellow); Glucose, Dipstick Normal (Normal); Ketone-Dipstick Negative (Negative); Leukocyte Esterase-Dipstick Negative /ul (Negative); Nitrite-Dipstick Negative (Negative); Occult Blood-Urine Negative /ul (Negative); Protein-Dipstick Negative (Negative); Specific Gravity, Urine 1.015 (1.002-1.030); Urine Bilirubin Dipstick Negative (Negative); Urine Clarity Clear (Clear); Urine Urobilinogen Normal (Normal)
[2021-07-22 16:21] LABS: Hyaline Cast 0-5 SEEN /lpf (0-5)
--- NOTE | 2021-07-22 16:37 | CT_ITS ---
STUDY: CT ABDOMEN AND PELVIS WITHOUT CONTRAST REASON FOR EXAM: Male, 71 years old. abdominal pain RADIATION DOSAGE (If Supplied By Facility): CTDIvol = ( 21.60 ) mGy, DLP = ( 1165.82 ) mGycm TECHNIQUE: Transaxial images were obtained from the dome of the diaphragm to the symphysis pubis without oral contrast, and without intravenous contrast. Sagittal and coronal images were reconstructed. Individualized dose optimization techniques were used for this CT. COMPARISON: 11/05/2020 FINDINGS: The visualized lung bases are unremarkable. Heart size is normal. There is multivessel coronary artery disease.. Normal liver. There is a tiny calcified gallstone without evidence for thickening of the wall or pericholecystic edema.. Normal spleen. Normal pancreas. Normal bilateral adrenal glands. No evidence for right renal obstruction. There is a tiny cortical cyst. Tiny nonobstructing left renal calculi. No evidence for renal obstruction or mass Normal visualized stomach. Normal small intestine. Diverticular disease of the distal transverse, descending and sigmoid colon without evidence for acute diverticulitis. Postop change status post appendectomy Atherosclerotic changes of the aorta without evidence for aneurysm. Normal inferior vena cava. Normal retroperitoneum. Normal urinary bladder. Small bilateral fat-containing inguinal hernias.. Lumbar spine demonstrates advanced degenerative change CT/Abdomen/Pelvis without Cont IMPRESSION: Diverticular disease of colon without evidence for acute diverticulitis. No evidence for small bowel obstruction. Cholelithiasis without evidence for acute cholecystitis. Left nephrolithiasis without evidence for renal obstruction Electronically Signed: Boston Patel MD at 17:13 EDT , Service support ,
[2021-07-22] MEDS: 0.9% Normal Saline 1,000 ML 999 ML IV (18:56)
--- NOTE | 2021-07-22 19:50 | PCM.HP.STD ---
[facility] - General General Date of Admission: 07/22/21 HPI Narrative LUIS EDE, is a 71 M with multiple comorbidities as listed below came to ER for concern of black stool on and off for 1 week. Patient also complains of mild left-sided abdominal discomfort/cramps, 3-4/10 intensity, localized. Patient is not a good historian due to dehydration diffuse abdominal pain. Patient also feels nausea, gastroesophageal reflux symptoms, belching and burping. Patient having 2-3 bowel movements every day and vomiting about 2-4 times gastric in nature for last 2 weeks. He never had EGD but had colonoscopy for 5 years ago by [facility] and said it was normal. His history, and labs and CT finding does not correlate. Patient also said he ran out of his PPI omeprazole for 4 weeks. COVID-19 rapid antigen negative Patient also found to have acute kidney injury with BUN/creatinine 167/8.21 with BUN/creatinine ratio 20: 1. UA is bland negative for hematuria or pyuria. No leukocytosis. H&H 14.2/45. Platelet count 1 44,000. Patient has history of coronary artery disease status post 10 stents, CHF and is on torsemide and spironolactone, and other heart medications including baby aspirin. [facility] Medical History Atherosclerosis of coronary artery without angina pectoris Bilateral lower extremity edema Chest pain Chronic HFrEF (heart failure with reduced ejection fraction) Chronic kidney disease (CKD) COPD (chronic obstructive pulmonary disease) Dermatitis Diastolic dysfunction Elevated liver enzymes Essential (primary) hypertension Fatty liver Former smoker Gout History of non-ST elevation myocardial infarction (NSTEMI) (05/05/21) History of stress test Hyperlipidemia Ischemic cardiomyopathy Kidney stones Morbid obesity with BMI of 40.0-44.9, adult Non-rheumatic aortic stenosis Obstructive sleep apnea Osteoarthritis Secondary pulmonary arterial hypertension Type 2 diabetes mellitus Home Medications allopurinol 300 mg PO DAILY 04/10/16 [History Last Taken 07/21/21] aspirin 81 mg tablet,delayed release 81 mg PO DAILY 04/14/18 [History Last Taken 07/22/21] multivitamin 1 tab PO DAILY 01/25/19 [History Last Taken 07/21/21] glipizide 5 mg tablet 5 mg PO BID tab 05/23/19 [History Last Taken 07/21/21] torsemide 20 mg PO BID #60 tab 04/18/21 [Rx Last Taken 07/21/21] ferrous sulfate 325 mg (65 mg iron) tablet 325 mg PO BID tab 05/16/21 [History Last Taken 07/21/21] atorvastatin 80 mg tablet 80 mg PO QHS #14 tab 06/23/21 [Rx Last Taken 07/21/21] carvedilol 6.25 mg tablet 6.25 mg PO BID #28 tab 06/23/21 [Rx Last Taken 07/21/21] lisinopril 10 mg tablet 10 mg PO DAILY #90 tab 06/23/21 [Rx Last Taken 07/21/21] pantoprazole 40 mg PO DAILY 07/22/21 [History Last Taken 07/20/21] spironolactone 25 mg PO DAILY 07/22/21 [History Last Taken 07/21/21] Allergy/AdvReac Type Severity Reaction Status Date / Time metformin AdvReac Elevated Verified 07/22/21 14:31 LDH and anion gap Family History Mother , Age 80 Diabetes Hypertension Father , Age 55, coma Diabetes Hypertension Sister Hypertension Brother Diabetes Hypertension Cancer, Onset Age: 50 prostate cancer CAD (coronary artery disease) Surgical History History of appendectomy History of coronary artery stent placement (01/24/20) History of herniorrhaphy History of left heart catheterization (05/06/21) History of tonsillectomy History of total knee replacement (TKR) Social History household members: children Smoking Status: Former smoker quit date: 01/31/11 alcohol intake: current alcohol intake frequency: holidays/special occasions only substance use type: does not use caffeine: Yes Type: coffee ROS ROS Narrative Constitutional: Mild fatigue and upper GI symptoms HEENT: Reports systems reviewed and no addt'l complaints, except as documented Respiratory/Chest: Denies chest pain, shortness of breath at rest or with exertion Gastrointestinal: Vomiting and diarrhea as described in HPI. Genitourinary: Denies burning urination or new urinary tract symptoms. Urine is dark yellow Musculoskeletal: Reports joint pain and limited range of motion Neurologic: Denies seizure-like activity skin: No ulcer. No rash Endocrinology: Reports systems reviewed and no addt'l complaints, except as documented Hematologic/Lymphatic: Reports systems reviewed and no addt'l complaints, except as documented Rest 12 ROS are negative except as mentioned in HPI Vital Signs Vital Signs Vital Signs: 07/22/21 14:32 07/22/21 15:31 07/22/21 16:13 Temperature 96.8 F L Temperature Source Temporal Pulse Rate 88 72 73 Respiratory Rate 18 18 18 Blood Pressure 90/66 116/71 118/81 H Blood Pressure Mean 74 86 93 Pulse Ox 100 100 98 Oxygen Delivery Method Room Air Room Air Room Air 07/22/21 17:04 07/22/21 18:01 07/22/21 18:55 Temperature 98.1 F Temperature Source Oral Pulse Rate 73 81 68 Respiratory Rate 18 18 18 Blood Pressure 115/57 L 150/90 H 150/90 H Blood Pressure Mean 76 110 110 Pulse Ox 96 98 95 Oxygen Delivery Method Room Air Room Air Room Air 07/22/21 19:21 Temperature Temperature Source Pulse Rate 65 Respiratory Rate 14 Blood Pressure 112/61 Blood Pressure Mean 78 Pulse Ox 97 Oxygen Delivery Method Room Air Weight Weight: 250 lb 8 oz Body Mass Index (BMI) 37.0 Physical Exam Narrative General: Alert, Oriented x3, Cooperative HEENT: Atraumatic, PERRLA, EOMI, Normocephalic Oral: No Gingival or Mucosal Lesions/ Ulcerations Neck: Supple, No JVD, Negative Carotid Bruits Lungs: Air entry diminished in bilateral lung bases. No crepitation/rhonchi Cardiovascular: Regular rate, Regular Rhythm, Normal S1, Normal S2, No murmurs Abdomen: Soft, mild tenderness over left lumbar region. Bowel Sounds Present, mild gaseous distention. : No renal angle tenderness. No suprapubic tenderness. Extremities: No edema, Capillary Refill Less than 3 Seconds Skin: No rashes, No breakdown Musculoskeletal: No Tenderness to Palpation of Joints or Extremities Neurological: Cranial nerves II-XII grossly intact, DTR 2+/4 and Symmetrical, Neuro grossly intact Psych/Mental Status: Normal Affect, Appropriate. Results Lab / Micro Data Result Diagrams: 07/22/21 14:48 07/22/21 14:48 Labs: Laboratory Results - last 24 hr 07/22/21 14:48: Sodium 138, Potassium 5.1, Chloride 104, Carbon Dioxide 22.0, Anion Gap 12, BUN 167 H*, Creatinine 8.21 H*, Estim Creat Clear Calc 8.13, Est GFR (MDRD) Af Amer 8 L, Est GFR (MDRD) Non-Af 7 L, BUN/Creatinine Ratio 20.3 H, Glucose 132 H, Calcium 10.0, Total Bilirubin 0.70, Direct Bilirubin 0.22, AST 11 L, ALT 16, Alkaline Phosphatase 112, Troponin I High Sens 61, Total Protein 8.4 H, Albumin 3.8, Globulin 4.6 H, Lipase 317 07/22/21 14:48: WBC 9.7, RBC 4.89, Hgb 14.2, Hct 45.5, MCV 93.0, MCH 29.0, MCHC 31.2 L, RDW Std Deviation 56.2 H, RDW Coeff of Raphael 16.7 H, Plt Count 144 L, MPV 12.7 H, Immature Gran % (Auto) 0.200, Neut % (Auto) 76.8 H, Lymph % (Auto) 13.7 L, [place] % (Auto) 6.2, Eos % (Auto) 2.8, Baso % (Auto) 0.3, Absolute Neuts (auto) 7.5, Absolute Lymphs (auto) 1.33, Nucleated RBC % 0 07/22/21 14:50: Blood Type A POSITIVE, Antibody Screen NEGATIVE 07/22/21 16:05: Urine Color Yellow, Urine Clarity Clear, Urine pH 5.0, Ur Specific [place] 1.015, Urine Protein Negative, Urine Glucose (UA) Normal, Urine Ketones Negative, Urine Occult Blood Negative, Urine Nitrite Negative, Urine Bilirubin Negative, Urine Urobilinogen Normal, Ur Leukocyte Esterase Negative, Urine RBC 0 SEEN, Urine WBC 0 SEEN, Ur Squamous Epith Cells 0 SEEN, Urine Bacteria 0 SEEN, Hyaline Casts 0-5 SEEN, Urine Mucus 0 SEEN Micro: Microbiology 07/22/21 15:09 Nasal Secretion SARS-CoV-2 Antigen (Rapid) - Final 07/22/21 14:48 Stool Stool Occult Blood (ANA M) - Final Radiology Impression Chest X-Ray 07/22/21 15:13 IMPRESSION: No acute abnormality is seen. Electronically Signed: Dima White MD at 15:34 EDT , Service support , Abdomen/Pelvis CT 07/22/21 16:37 IMPRESSION: Diverticular disease of colon without evidence for acute diverticulitis. No evidence for small bowel obstruction. Cholelithiasis without evidence for acute cholecystitis. Left nephrolithiasis without evidence for renal obstruction Electronically Signed: Boston Patel MD at 17:13 EDT , Service support , Assessment & Plan Assessment/Plan (1) YADIRA (acute kidney injury): PLAN: This 71-year-old gentleman admitted with nausea, vomiting, left abdominal discomfort and lab suggestive of acute kidney injury 1. Acute kidney remarkably prerenal/diuretics on CKD stage IIIB: Patient is being admitted to PCU. IV fluid Ringer lactate 150 mill per hour for 2 L. Patient is on diuretics and lisinopril and will hold it. If BUN/creatinine does not improve or decrease in urine output, order renal ultrasound. Consult utilization reviewer. Patient last creatinine was 1.68 with estimated creatinine clearance about 40 mils per minute on May 06, 2021. 2. Nonspecific GI symptoms nausea, vomiting and left sided abdominal pain: CT abdomen without oral and IV contrast is nondiagnostic and shows diverticulosis of distal transverse colon, descending and sigmoid colon without evidence of acute diverticulitis. Stool for leukocytes and enteric bacteriology panel ordered. Stool for C. difficile ordered. Patient has a history of GI bleed in the past therefore Plavix was discontinued and was recommended EGD but seems did not had recently. I discussed with GI DrJackeline Pacheco and agreed to see the patient. On Protonix IV every 12 hourly 3. Coronary artery disease status post stents non-STEMI in January 2019, aortic stenosis, chronic combined systolic and diastolic heart failure , hypertension and dyslipidemia: Mild aortic stenosis with valve area 1.6 cm per square. Patient does not have leg swelling or symptoms of acute heart failure. Patient last echo in April 2021 shows EF 45% with mild and AR. 4. Type 2 diabetes mellitus: Accu-Chek insulin coverage Humalog sliding scale. 5. Other comorbidities include GERD, former tobacco use: Clinical Impression(s) from Imaging Studies Chest X-Ray 07/22/21 15:13 IMPRESSION: No acute abnormality is seen. Abdomen/Pelvis CT 07/22/21 16:37 IMPRESSION: Diverticular disease of colon without evidence for acute diverticulitis. No evidence for small bowel obstruction. Cholelithiasis without evidence for acute cholecystitis. Left nephrolithiasis without evidence for renal obstruction Electronically Signed: Boston Patel MD at 17:13 EDT , Service support , Charges/Coding Visit Charges Inpatient E&M: 92698 Init Hosp L3 Procedures Hospitalists Procedures: 28363 Advncd Care Plan 30 Min
[2021-07-22 20:33] LABS: AST(SGOT) 13 U/L (15-37); Alanine Aminotransfer ALT/SGPT 16 U/L (16-61); Albumin, Serum 3.9 g/dL (3.2-5.0); Alkaline Phosphatase 113 U/L (45-117); Bilirubin, Direct 0.24 mg/dL (0.00-0.30); Globulin 4.4 g/dL (2.2-4.2); Protein, Total 8.3 g/dL (6.4-8.2)
--- NOTE | 2021-07-22 20:34 | EX.PCM.CON.G ---
HPI Consult Data Date of Consult: 07/22/21 HPI Narrative HPI Narrative: 71-year-old with, COPD not on home oxygen ,CKD, History of nonalcoholic fatty liver disease recent non-ST segment ME in January 2021 on aspirin therapy who has been having intermittent loose stools couple months. He has been taking a lot of Tums for abdominal pain. He had an appointment to be seen in [facility] gastroenterology department however he cannot deal with the pain so he came into the hospital for evaluation. Patient also feels nausea, gastroesophageal reflux symptoms, belching and burping. Patient having 2-3 bowel movements every day and vomiting about 2-4 times gastric in nature for last 2 weeks. He never had EGD but had colonoscopy for 5 years ago by [facility] and said it was normal. Patient also said he ran out of his PPI omeprazole for 4 weeks ago. COVID-19 rapid antigen negative. He had a CT scan of the abdomen pelvis without contrast in the did not show any acute abnormalities. Patient also found to have acute kidney injury with BUN/creatinine 167/8.21 with BUN/creatinine ratio 20: 1. UA is bland negative for hematuria or pyuria. No leukocytosis. H&H 14.2/45. Platelet count 1 44,000. Patient has history of coronary artery disease status post 10 stents, CHF and is on torsemide and spironolactone, and other heart medications including baby aspirin. [facility] Medical History (Updated 07/22/21 @ 20:[address] Moise Friend, DO) Abdominal pain Atherosclerosis of coronary artery without angina pectoris Bilateral lower extremity edema Chest pain Chronic HFrEF (heart failure with reduced ejection fraction) Chronic kidney disease (CKD) COPD (chronic obstructive pulmonary disease) Dermatitis Diastolic dysfunction Elevated liver enzymes Essential (primary) hypertension Fatty liver Former smoker Gout History of non-ST elevation myocardial infarction (NSTEMI) (05/05/21) History of stress test Hyperlipidemia Ischemic cardiomyopathy Kidney stones Morbid obesity with BMI of 40.0-44.9, adult Non-rheumatic aortic stenosis Obstructive sleep apnea Osteoarthritis Secondary pulmonary arterial hypertension Type 2 diabetes mellitus Home Medications allopurinol 300 mg PO DAILY 04/10/16 [History Last Taken 07/21/21] aspirin 81 mg tablet,delayed release 81 mg PO DAILY 04/14/18 [History Last Taken 07/22/21] multivitamin 1 tab PO DAILY 01/25/19 [History Last Taken 07/21/21] glipizide 5 mg tablet 5 mg PO BID tab 05/23/19 [History Last Taken 07/21/21] torsemide 20 mg PO BID #60 tab 04/18/21 [Rx Last Taken 07/21/21] ferrous sulfate 325 mg (65 mg iron) tablet 325 mg PO BID tab 05/16/21 [History Last Taken 07/21/21] atorvastatin 80 mg tablet 80 mg PO QHS #14 tab 06/23/21 [Rx Last Taken 07/21/21] carvedilol 6.25 mg tablet 6.25 mg PO BID #28 tab 06/23/21 [Rx Last Taken 07/21/21] lisinopril 10 mg tablet 10 mg PO DAILY #90 tab 06/23/21 [Rx Last Taken 07/21/21] pantoprazole 40 mg PO DAILY 07/22/21 [History Last Taken 07/20/21] spironolactone 25 mg PO DAILY 07/22/21 [History Last Taken 07/21/21] Allergy/AdvReac Type Severity Reaction Status Date / Time metformin AdvReac Elevated Verified 07/22/21 14:31 LDH and anion gap Family History Mother , Age 80 Diabetes Hypertension Father , Age 55, coma Diabetes Hypertension Sister Hypertension Brother Diabetes Hypertension Cancer, Onset Age: 50 prostate cancer CAD (coronary artery disease) Surgical History History of appendectomy History of coronary artery stent placement (01/24/20) History of herniorrhaphy History of left heart catheterization (05/06/21) History of tonsillectomy History of total knee replacement (TKR) Social History household members: children Smoking Status: Former smoker quit date: 01/31/11 alcohol intake: current alcohol intake frequency: holidays/special occasions only substance use type: does not use caffeine: Yes Type: coffee ROS Review of Systems ROS Unobtainable: other Constitutional Constitutional: Denies fatigue, fever(s), poor appetite, weight gain or weight loss ENT HEENT: Denies mouth lesions Cardiovascular Cardiovascular: Denies abdominal bloating, abdominal edema or abdominal pain Respiratory/Chest Respiratory/Chest: Denies change in mental status, change in phlegm color, chest congestion or chest tightness Gastrointestinal Gastrointestinal: Reports belching, bloating, cramping and melena; Denies change in bowel habits, change in stool character, chewing difficulty, coffee ground emesis, constipation, diarrhea, dyspepsia, dysphagia, early satiety, excessive flatus, fecal incontinence, heartburn, hematemesis, hematochezia, hemorrhoids, loose stools, nausea, odynophagia, rectal bleeding, tenesmus, vomiting or weight changes Genitourinary Genitourinary: Denies abdominal discomfort, burning urination or itching Musculoskeletal Musculoskeletal: Reports as per HPI; Denies muscle weakness or myalgias Integumentary Integumentary: Denies jaundice Neurologic Neurologic: Denies lack of coordination or weakness Psychiatric Psychiatric: Denies confusion, depression, memory loss, mood swings, paranoia or suicidal ideation Endocrine Endocrinology: Denies systems reviewed and no addt'l complaints, except as documented Hematologic/Lymphatic Hematologic/Lymphatic: Denies anemia, easy bleeding, easy bruising or lymphadenopathy Allergic/Immunologic Allergic/Immunologic: Denies systems reviewed and no addt'l complaints, except as documented Physical Exam Const alert General Appearance: cooperative Orientation / Consciousness: oriented to person HEENT hearing grossly normal bilaterally Head and Scalp: normal to inspection Face and Sinus: face symmetric Nose: external nose normal Mouth: oral and palatal mucosa normal Eyes conjunctivae normal General Eye: normal appearance of both eyes Neck full ROM General: normal visual inspection Lymph Lymphatic: no lymphadenopathy noted Chest inspection of chest normal and palpation of chest normal Chest: symmetrical chest wall rise Resp normal respiratory effort Effort and Inspection: able to speak in complete sentences Cardio regular rate GI GI Narrative: Tender on deep palpation to his epigastric area Inspection: central obesity Percussion: normal to percussion Rectal Exam: deferred Neuro Speech: speech normal Gait (Neuro): normal gait Lab / Micro Data Result Diagrams: 07/22/21 14:48 07/22/21 14:48 Labs: Laboratory Results - last 24 hr 07/22/21 14:45: Total Bilirubin 0.70, Direct Bilirubin 0.24, AST 13 L, ALT 16, Alkaline Phosphatase 113, Total Protein 8.3 H, Albumin 3.9, Globulin 4.4 H 07/22/21 14:48: Sodium 138, Potassium 5.1, Chloride 104, Carbon Dioxide 22.0, Anion Gap 12, BUN 167 H*, Creatinine 8.21 H*, Estim Creat Clear Calc 8.13, Est GFR (MDRD) Af Amer 8 L, Est GFR (MDRD) Non-Af 7 L, BUN/Creatinine Ratio 20.3 H, Glucose 132 H, Calcium 10.0, Total Bilirubin 0.70, Direct Bilirubin 0.22, AST 11 L, ALT 16, Alkaline Phosphatase 112, Troponin I High Sens 61, Total Protein 8.4 H, Albumin 3.8, Globulin 4.6 H, Lipase 317 07/22/21 14:48: WBC 9.7, RBC 4.89, Hgb 14.2, Hct 45.5, MCV 93.0, MCH 29.0, MCHC 31.2 L, RDW Std Deviation 56.2 H, RDW Coeff of Raphael 16.7 H, Plt Count 144 L, MPV 12.7 H, Immature Gran % (Auto) 0.200, Neut % (Auto) 76.8 H, Lymph % (Auto) 13.7 L, [place] % (Auto) 6.2, Eos % (Auto) 2.8, Baso % (Auto) 0.3, Absolute Neuts (auto) 7.5, Absolute Lymphs (auto) 1.33, Nucleated RBC % 0 07/22/21 14:50: Blood Type A POSITIVE, Antibody Screen NEGATIVE 07/22/21 16:05: Urine Color Yellow, Urine Clarity Clear, Urine pH 5.0, Ur Specific [place] 1.015, Urine Protein Negative, Urine Glucose (UA) Normal, Urine Ketones Negative, Urine Occult Blood Negative, Urine Nitrite Negative, Urine Bilirubin Negative, Urine Urobilinogen Normal, Ur Leukocyte Esterase Negative, Urine RBC 0 SEEN, Urine WBC 0 SEEN, Ur Squamous Epith Cells 0 SEEN, Urine Bacteria 0 SEEN, Hyaline Casts 0-5 SEEN, Urine Mucus 0 SEEN Micro: Microbiology 07/22/21 15:09 Nasal Secretion SARS-CoV-2 Antigen (Rapid) - Final 07/22/21 14:48 Stool Stool Occult Blood (ANA M) - Final Radiology Impression Chest X-Ray 07/22/21 15:13 IMPRESSION: No acute abnormality is seen. Electronically Signed: Dima White MD at 15:34 EDT , Service support , Abdomen/Pelvis CT 07/22/21 16:37 IMPRESSION: Diverticular disease of colon without evidence for acute diverticulitis. No evidence for small bowel obstruction. Cholelithiasis without evidence for acute cholecystitis. Left nephrolithiasis without evidence for renal obstruction Electronically Signed: Boston Patel MD at 17:13 EDT , Service support , Assessment & Plan Assessment/Plan (1) Abdominal pain: PLAN: The differential diagnosis in a patient with CAD status post ME on aspirin would be peptic ulcer disease duodenal greater than gastric. Also differential diagnosis is gastritis,, GAVE and portal gastropathy secondary to nonalcoholic fatty liver disease. Patient will need to undergo upper endoscopy. He was explained alternatives, risk, benefits including not withstanding bleeding, infection, sepsis, perforation, need for discharge to . He will have an ASA of 3. (2) Anemia: QUALIFIERS: Anemia type: other cause Other causes of anemia: acute posthemorrhagic Qualified Code(s): D62 - Acute posthemorrhagic anemia PLAN: Anemia chronic disease in the setting of possible GI bleed. Recheck hemoglobin. Charges/Coding Visit Charges Inpatient E&M: 97569 Init Hosp L2
--- NOTE | 2021-07-22 20:46 | PCS.PANDOC ---
PANDEMIC DOCUMENTATION INITIATED: Date: 06/16/2021 Time: 190
[2021-07-22] MEDS: Lactated Ringers 1,000 ML 100 ML IV (22:25)
[2021-07-22 22:35] LABS: Bedside Glucose 90 mg/dL (70-110)
[2021-07-22] MEDS: Atorvastatin Calcium 40 MG Tablet PO (22:38)
[2021-07-22] MEDS: Carvedilol 6.25 MG Tablet PO (22:39)
[2021-07-23] VITALS (20 sets, daily range): BP systolic 91–118; BP diastolic 45–65; PULSE 40–83; RESP 16–18; TEMP 36.1–36.7; O2SAT 94–99; BMI 35.8
[2021-07-23 06:22] LABS: Absolute Lymphocyte Count 1.69 X10^3/uL (0.83-4.51); Absolute Neutrophil Count 4.5 X10^3/uL (2.0-7.7); Basophil# 0.03 X10^3/uL; Basophil% 0.4 % (0-1); Eosinophil# 0.32 X10^3/uL; Eosinophils% 4.5 % (0-5); Hematocrit 37.1 % (40-54); Hemoglobin 11.5 g/dL (13.0-16.5); Lymphocyte # 1.69 X10^3/ul (0.83-4.51); Lymphocyte % 23.8 % (19-41); Mean Corpuscular Volume 93.5 fL (80-94); Mean Platelet Vol. 12.5 fl (6.2-12.0); Monocyte# 0.56 X10^3/uL; Monocyte% 7.9 % (0-10); NRBC Flagged by Analyzer 0 % (0-5); Neutrophil # 4.46 X10^3/uL (2.7-7.7); Platelet Count 102 K/mm3 (150-450); RBC Distribution Width CV 16.6 % (11.6-14.6); RBC Distribution Width SD 57.1 fl (35.1-43.9); Red Blood Count 3.97 M/mm3 (4.6-6.2); White Blood Count 7.1 K/mm3 (4.4-11.0)
[2021-07-23 06:25] LABS: Bedside Glucose 89 mg/dL (70-110)
[2021-07-23 07:11] LABS: Anion Gap 7 (5-15); BUN 146 mg/dL (7-18); BUN/Creat Ratio 25.7 RATIO (10-20); Calcium,Total 8.9 mg/dL (8.5-10.1); Chloride 113 mmol/L (98-107); Creatinine, Serum 5.67 mg/dL (0.70-1.30); EST Glomerular Filtration Rate 11 mL/min (>60); Est Glom Filt Rate - Afr Amer 13 mL/min (>60); Estimated Creatinine Clearance 11.78 ml/min; Glucose 87 mg/dL (74-106); Potassium 5.3 mmol/L (3.5-5.1); Sodium Level 140 mmol/L (136-145)
[2021-07-23] MEDS: Lactated Ringers 1,000 ML 100 ML IV ×2 (08:06→14:30)
[2021-07-23] MEDS: 0.9% Saline Lock 10 ML Syringe IV ×2 (10:43→16:32)
[2021-07-23] MEDS: Ondansetron 4 MG/2 ML Vial IV (10:43)
[2021-07-23 10:46] LABS: Bedside Glucose 94 mg/dL (70-110)
--- NOTE | 2021-07-23 11:25 | CASEMGMT ---
RN CM Face to Face with patient for initial transition planning/care coordination assessment. RN CM introduced self and role at [facility]. Patient lying in bed, alert and oriented. Patient willing to participate in assessment and is able to answer all questions appropriately. Care providers, pharmacy, and demographics verified. Patient wishes to discharge home, denies need for home health at this time. Patient states he has no further needs or concerns at this time. CM to follow for discharge planning needs that may arise. PCP: Henry Specialists: Kathia applied behavior specialist Preferred Pharmacy: [facility] Insurance: [employer] [facility] Prescription Benefit: yes Living Will/HPOA: yes, brother Robert Melgar LNOK: son, brother Living Arrangements: Patient lives with son in a single story home with no steps to enter. Patient states he is independent at home. Transportation: self/son DME/HHC: Patient states he has cane and walker at home. Patient denies previous HHC Disposition Plan: Patient to discharge home with family support and follow-up plans in place. Coreen PAT, RN, CM
--- NOTE | 2021-07-23 12:00 | EGD_PTH ---
PATIENT: LUIS DEE LOC: [facility] U#:[id number] AGE/SX: 71/M ROOM: [facility] RE07/22/[address]: Dr. Reg Rob MD : 1950 BED: 1 DIS: 07/24/2021 SPEC #: [id number] RECD: 07/23/21 15:48 STATUS: ANMOL [place] #: [id number] SIDRA: 07/23/21 12:[address]: Jose Maria Mcgill DEPT: SURGICAL PATHOLOGY RECD BY: Jazmyn Cunningham ENTERED: 07/24/21 07:05 SP TYPE: EGD BIOPSY OT DR: MD Dr. Reg Magana MD Dr. Jeffrey Burkey, MD Dr. Prakash Chand, MD Tissues: Duodenum, NOS Procedures: Surgery Specimen Level IV HEADER OPERATION: EGD ([facility] PRE-OP DIAGNOSIS: Abdominal pain, anemia TISSUE SUBMITTED: Duodenum biopsy MICROSCOPIC DIAGNOSIS Duodenum, biopsy: No pathologic change. AM:missy 07/25/2021 MICROSCOPIC DESCRIPTION Slides are reviewed. GROSS DESCRIPTION Received in fixative is one container labeled with the patient's name and designated duodenum biopsy. The specimen consists of two irregular fragments of light crabtree soft tissue that in aggregate measure 0.5 x 0.2 x 0.1 cm. The specimen is totally submitted in one cassette. / ANUJ:missy 07/24/21 TC:5 CPT: 76724
[2021-07-23] MEDS: Allopurinol 100 MG Tablet PO (13:33)
[2021-07-23] MEDS: Ferrous Sulfate 325 MG Tablet PO (13:33)
--- NOTE | 2021-07-23 13:47 | PN_ITS ---
Documented by User: Rachelle Gordon NP-C 07/23/21 14:07 Subjective Subjective Patient seen and examined. Patient states that he has not had a bowel movement this morning. Patient states that he is mildly improved from yesterday however he does continue to have nausea. Patient laying in bed no distress noted. Patient denies needs at this time Objective Data Objective Data Vital Signs: Vital Signs Temp Pulse Resp BP Pulse Ox 97.3 F L 71 16 117/54 L 98 07/23/21 13:40 07/23/21 13:40 07/23/21 13:40 07/23/21 13:40 07/23/21 13:40 Oxygen Delivery Method Room Air Weight: 242 lb 11.663 oz Body Mass Index (BMI) 35.8 Intake & Output: Intake and Output for Last 24 Hours 07/21/21 07/22/21 07/23/21 23:59 23:59 23:59 Intake Total 2836.67 / 2836.67 1150.01 / 1150.01 Output Total 500 / 500 850 / 850 Balance 2336.67 / 2336.67 300.01 / 300.01 Lab / Micro Data Result Diagrams: 07/23/21 05:50 07/23/21 05:50 Labs: Laboratory Results - last 24 hr 07/22/21 14:45: Total Bilirubin 0.70, Direct Bilirubin 0.24, AST 13 L, ALT 16, Alkaline Phosphatase 113, Total Protein 8.3 H, Albumin 3.9, Globulin 4.4 H 07/22/21 14:48: Sodium 138, Potassium 5.1, Chloride 104, Carbon Dioxide 22.0, Anion Gap 12, BUN 167 H*, Creatinine 8.21 H*, Estim Creat Clear Calc 8.13, Est GFR (MDRD) Af Amer 8 L, Est GFR (MDRD) Non-Af 7 L, BUN/Creatinine Ratio 20.3 H, Glucose 132 H, Calcium 10.0, Total Bilirubin 0.70, Direct Bilirubin 0.22, AST 11 L, ALT 16, Alkaline Phosphatase 112, Troponin I High Sens 61, Total Protein 8.4 H, Albumin 3.8, Globulin 4.6 H, Lipase 317 07/22/21 14:48: WBC 9.7, RBC 4.89, Hgb 14.2, Hct 45.5, MCV 93.0, MCH 29.0, MCHC 31.2 L, RDW Std Deviation 56.2 H, RDW Coeff of Raphael 16.7 H, Plt Count 144 L, MPV 12.7 H, Immature Gran % (Auto) 0.200, Neut % (Auto) 76.8 H, Lymph % (Auto) 13.7 L, [place] % (Auto) 6.2, Eos % (Auto) 2.8, Baso % (Auto) 0.3, Absolute Neuts (auto) 7.5, Absolute Lymphs (auto) 1.33, Nucleated RBC % 0 07/22/21 14:50: Blood Type A POSITIVE, Antibody Screen NEGATIVE 07/22/21 16:05: Urine Color Yellow, Urine Clarity Clear, Urine pH 5.0, Ur Specific [place] 1.015, Urine Protein Negative, Urine Glucose (UA) Normal, Urine Ketones Negative, Urine Occult Blood Negative, Urine Nitrite Negative, Urine Bilirubin Negative, Urine Urobilinogen Normal, Ur Leukocyte Esterase Negative, Urine RBC 0 SEEN, Urine WBC 0 SEEN, Ur Squamous Epith Cells 0 SEEN, Urine Bacteria 0 SEEN, Hyaline Casts 0-5 SEEN, Urine Mucus 0 SEEN 07/22/21 22:31: POC Glucose 90 07/22/21 23:10: Hgb 13.0, Hct 40.0 07/23/21 05:50: WBC 7.1, RBC 3.97 L, Hgb 11.5 L, Hct 37.1 L, MCV 93.5, MCH 29.0, MCHC 31.0 L, RDW Std Deviation 57.1 H, RDW Coeff of Raphael 16.6 H, Plt Count 102 L, MPV 12.5 H, Immature Gran % (Auto) 0.400, Neut % (Auto) 63.0, Lymph % (Auto) 23.8, [place] % (Auto) 7.9, Eos % (Auto) 4.5, Baso % (Auto) 0.4, Absolute Neuts (auto) 4.5, Absolute Lymphs (auto) 1.69, Nucleated RBC % 0 07/23/21 05:50: Sodium 140, Potassium 5.3 H, Chloride 113 H, Carbon Dioxide 20.0 L, Anion Gap 7, BUN 146 H*, Creatinine 5.67 H, Estim Creat Clear Calc 11.78, Est GFR (MDRD) Af Amer 13 L, Est GFR (MDRD) Non-Af 11 L, BUN/Creatinine Ratio 25.7 H , Glucose 87, Calcium 8.9, Magnesium 2.0 07/23/21 06:17: POC Glucose 89 07/23/21 10:39: POC Glucose 94 Micro: Microbiology 07/22/21 15:09 Nasal Secretion SARS-CoV-2 Antigen (Rapid) - Final 07/22/21 14:48 Stool Stool Occult Blood (ANA M) - Final Radiography Diagnostic Testing: Radiology Impression Chest X-Ray 07/22/21 15:13 IMPRESSION: No acute abnormality is seen. Electronically Signed: Dima White MD at 15:34 EDT , Service support , Abdomen/Pelvis CT 07/22/21 16:37 IMPRESSION: Diverticular disease of colon without evidence for acute diverticulitis. No evidence for small bowel obstruction. Cholelithiasis without evidence for acute cholecystitis. Left nephrolithiasis without evidence for renal obstruction Electronically Signed: Boston Patel MD at 17:13 EDT , Service support , Physical Exam Const alert, oriented x3 and no apparent distress General Appearance: cooperative HEENT normocephalic and head/scalp atraumatic Eyes conjunctivae normal and no scleral icterus Neck supple and no JVD General: trachea midline Resp normal respiratory effort, normal air movement and clear to auscultation bilaterally Cardio regular rate, regular rhythm, S1 normal heart sound and S2 normal heart sound Peripheral Pulses: pulses 2+ throughout GI normal to inspection, nondistended, normoactive bowel sounds Palpation: tender epigastric Extremity normal capillary refill and no clubbing, cyanosis or edema Skin General Skin Exam: no breakdown and turgor normal Lesions: no lesions Rashes: no rashes Neuro no focal motor deficits and no sensory deficits noted Speech: speech normal Motor Exam: general weakness Psych thought process normal, cooperative and affect normal Appearance: appropriate Assessment & Plan Assessment/Plan (1) Abdominal pain: QUALIFIERS: Abdominal location: epigastric Qualified Code(s): R10.13 - Epigastric pain PLAN: 1. Acute on chronic kidney disease stage IIIb -Possibly secondary to dehydration from diarrhea along with continued use of diuretics. -BUN and creatinine improved, continue LR -BMP ordered daily -Intake and output -Nephrology following -Continue to hold spironolactone, torsemide, lisinopril 2. Abdominal pain -GI following, per no as her friend suspicious for peptic ulcer disease. Of note patient also has history of GERD -Recommend EGD -Continue Protonix, of note patient has not been taking PPI for the past 4 weeks -CT negative for acute findings -Stool occult blood negative -C. difficile, enteric pathogen panel and lactoferrin pending 3. Diabetes mellitus type II -ACHS blood sugars with sliding scale insulin ordered -Hold glipizide We will continue patient's home medication regimen for chronic diseases. DVT prophylaxis-SCDs This patient was seen by ANGEL JoseC under the supervision of Dr. Rob Documented by User: Dr. Reg Rob MD 07/23/21 14:15 Objective Data Lab / Micro Data Result Diagrams: 07/23/21 05:50 07/23/21 05:50 Assessment & Plan Addt'l Comments This patient was seen in conjunction with Rachelle ORTIZC. I have independently interviewed and examined the patient and reviewed pertinent his torical, laboratory, and other data. Please refer to Rachelle Gordon NP-C note for details of this patient's presentation, findings, and recommendations. I have reviewed Rachelle DING note and concur with documented findings. In brief, patient is a 72-year-old gentleman who presented to the emergency department with nausea and dyspepsia as well as black tarry stools. Patient also complains of having experienced diarrhea at home. Patient was found to have marked impaired kidney function admitted to a monitored bed for subsequent management Physical Examination: GENERAL: cooperative HEENT: Atraumatic; EYES; Anicteric, Normal Conjunctiva NECK; supple, normal thyroid, RESPIRATORY: Diminished to auscultation CARDIOVASCULAR: Regular S1 S2, GI: soft, normoactive bowel sounds, : No Renal angle tenderness; EXTREMITIES: No edema, no clubbing, MUSCULOSKELETAL: no muscle waisting NEURO: Awake; no lateralizing signs. SKIN: No Rash PSYCH; Flat affect Assessment: 1. Acute kidney injury 2. Chronic kidney disease stage III 3. Coronary artery disease status post non-STEMI with PCI with stent placement 4. Gout 5. Diabetes mellitus type 2 6. GERD 7. Dyslipidemia 8. Hypertension 9. Ischemic cardiomyopathy 10. COPD 11. History of nonalcoholic fatty liver disease Recommendations: 1. I have discussed the results of my overview and impressions with the patient 2. Options for management were reviewed Charges/Coding Visit Charges Inpatient E&M: 04395 Subs Hosp L3
--- NOTE | 2021-07-23 14:05 | NURSING ---
Patient off unit for EGD
--- NOTE | 2021-07-23 15:11 | CHAPLAIN ---
Type of Pastoral Visit ___ Initial Visit ___ Follow-up Visit ___ On-call Visit ___ General Patient Visit ___ Spiritual Assessment ___ Family Conference ___ Bereavement ___ Rapid Response ___ Code Blue ___ Other (describe below) Pastoral Care Referral From ___ Patient ___ Family ___ Nurse ___ Physician ___ Corporate Responsibility Officer ___ Airport Manager ___ Other (describe below) Sacrament/Intervention ___ Active listening ___ Anointing ___ Alevism ___ Bereavement ___ Communion ___ Genia exploration ___ ___ Life review ___ Prayer ___ Reconciliation ___ Sacrament of Sick ___ Supportive presence ___ Wedding ___ Other (describe below) Pastoral Comments patient and bed are out of room; left a calling card
--- NOTE | 2021-07-23 15:42 | OP.CCLET_ITS ---
07/02/2022 Boston Figueroa MD Re : Upper GI endoscopy procedure for Ronnie Melgar Dear Dr. Figueroa This procedure was performed on Friday, July 23, 2021. My impressions and recommendations are as follows: Impressions : - Normal esophagus. - Non-bleeding gastric ulcer with no stigmata of bleeding. - Acute duodenitis. Biopsied. - Normal esophagus. - Non-obstructing non-bleeding gastric ulcer with no stigmata of bleeding. NSAID induced etiology. There is no evidence of perforation. Recommendations : - [facility]. - Resume regular diet today. - Use Protonix (pantoprazole) 40 mg PO BID for 3 months. - Return to GI clinic in 2 weeks. - Continue present medications. My findings are described in the full procedure note, which is enclosed. If I can be of further assistance, please feel free to contact me at . Sincerely, Jose Maria Mcgill, 07/23/2021 3:41:35 PM This report has been signed electronically.
--- NOTE | 2021-07-23 15:42 | OP.EGD_ITS ---
Patient Name: Ronnie Melgar Procedure Date: 07/23/2021 2:25 PM Date of : 1950 Age: 71 Procedure: Upper GI endoscopy Indications: Epigastric abdominal pain Providers: Jose Maria Mcgill DO Medicines: Monitored Anesthesia Care Patient Profile: This is a 71 year old male. Refer to note in patient chart for documentation of history and physical. Patient has symptoms of acute epigastric abdominal pain. Complications: No immediate complications. Procedure: Pre-Anesthesia Assessment: - Prior to the procedure, a History and Physical was performed, and patient medications and allergies were reviewed. The patient is competent. The risks and benefits of the procedure and the sedation options and risks were discussed with the patient. All questions were answered and informed consent was obtained. Patient identification and proposed procedure were verified by the physician in the pre-procedure area. Mental Status Examination: alert and oriented. Airway Examination: normal oropharyngeal airway and neck mobility. Respiratory Examination: clear to auscultation. CV Examination: normal. Prophylactic Antibiotics: The patient does not require prophylactic antibiotics. Prior Anticoagulants: The patient has taken no previous anticoagulant or antiplatelet agents. ASA Grade Assessment: III - A patient with severe systemic disease. After reviewing the risks and benefits, the patient was deemed in satisfactory condition to undergo the procedure. The anesthesia plan was to use moderate sedation / analgesia (conscious sedation). Immediately prior to administration of medications, the patient was re-assessed for adequacy to receive sedatives. The heart rate, respiratory rate, oxygen saturations, blood pressure, adequacy of pulmonary ventilation, and response to care were monitored throughout the procedure. The physical status of the patient was re-assessed after the procedure. After obtaining informed consent, the endoscope was passed under direct vision. Throughout the procedure, the patient's blood pressure, pulse, and oxygen saturations were monitored continuously. The gastroscope was introduced through the mouth, and advanced to the second part of duodenum. The upper GI endoscopy was accomplished without difficulty. The patient tolerated the procedure well. Moderate Sedation: Moderate (conscious) sedation was administered by the endoscopy nurse and supervised by the endoscopist. The patient's oxygen saturation, heart rate, blood pressure and response to care were monitored. Scope In: 3:25:28 PM Scope Out: 3:31:09 PM Total Procedure Duration Time 0 hours 5 minutes 41 seconds Findings: The examined esophagus was normal. One non-bleeding cratered gastric ulcer with no stigmata of bleeding was found in the stomach. The lesion was 1 mm in largest dimension. Localized moderate inflammation characterized by congestion (edema) was found in the duodenal bulb. Biopsies were taken with a cold forceps for histology. Verification of patient identification for the specimen was done using the patient's name and date. Estimated blood loss: none. Impression: - Normal esophagus. - Non-bleeding gastric ulcer with no stigmata of bleeding. - Acute duodenitis. Biopsied. - Normal esophagus. - Non-obstructing non-bleeding gastric ulcer with no stigmata of bleeding. NSAID induced etiology. There is no evidence of perforation. Recommendation: - Return patient [facility]. - Resume regular diet today. - Use Protonix (pantoprazole) 40 mg PO BID for 3 months. - Return to GI clinic in 2 weeks. - Continue present medications. Procedure Code(s): --- Professional --- 73021, Esophagogastroduodenoscopy, flexible, transoral; with biopsy, single or multiple CPT copyright 2017 [employer]. All rights reserved. The codes documented in this report are preliminary and upon explosive ordnance manager review may be revised to meet current compliance requirements. Jose Maria Mcgill DO 07/23/2021 3:41:35 PM This report has been signed electronically. Number of Addenda: 1 Note Initiated On: 07/23/2021 2:25 PM Addendum Number: 1 Addendum Date: 07/02/2022 4:01:21 PM MAC was used instead of moderate sedation for this patient. Jose Maria Mcgill DO 07/02/2022 4:01:29 PM This report has been signed electronically.
[2021-07-23] MEDS: 0.9% Normal Saline 1,000 ML 100 ML IV (16:32)
[2021-07-23] MEDS: Aspirin E.C. 81 MG Tablet PO (16:33)
[2021-07-23] MEDS: Carvedilol 6.25 MG Tablet PO (16:33)
[2021-07-23 16:41] LABS: Bedside Glucose 93 mg/dL (70-110)
--- NOTE | 2021-07-23 17:59 | CON.PCM.RE_ITS ---
Assessment & Plan Assessment/Plan (1) YADIRA (acute kidney injury): PLAN: YADIRA is likely due to prerenal azotemia versus ischemic ATN. The patient had poor oral intake along with increasing GI loss. This has occurred in the setting of continued use of ARCADIO inhibitor. Renal function has improved with IV fluid. There is no significant hyperkalemia, acidosis or volume overload. There is no need for hemodialysis. Continue IV fluid with careful monitoring of volume status since the patient has a history of HFrEF. Recheck renal function again tomorrow. (2) Chronic kidney disease (CKD): PLAN: Baseline serum creatinine is around 1.7 mg/dL. The patient likely has diabetic kidney disease. (3) Anemia: QUALIFIERS: Anemia type: other cause Other causes of anemia: acute posthemorrhagic Qualified Code(s): D62 - Acute posthemorrhagic anemia PLAN: The patient is diagnosed with gastric ulcer which is being treated by GI. Continue to monitor hemoglobin. (4) Essential (primary) hypertension: PLAN: BP is acceptable off of ARCADIO inhibitor for now. We will continue to monitor BP. HPI Consult Data Date of Consult: 07/23/21 HPI Narrative HPI Narrative: LUIS DEE, is a 71 M with PMH of T2DM, CAD, HFrEF, COPD, HTN, gout, kidney stone, and JUAN ALBERTO. The patient presented with melena for the last 1 week. He also complained of left-sided abdominal pain, nausea, anorexia and loose bowel movements. The patient has been diagnosed with gastric ulcer. Nephrology is asked to see the patient because of YADIRA on presentation. The patient presented with a serum creatinine of 8.21 mg/dL on 07/22/2021. Baseline serum creatinine appears to be around 1.7 mg/dL. The patient feels better today. There is no chest pain, shortness of breath, nausea, or vomiting today. He denies increasing lower extremity edema. The patient denies chronic use of NSAIDs prior to admission. The patient was on lisinopril prior to admission. Fortunately, serum creatinine has improved today to 5.67 mg/dL. [facility] Medical History (Updated 07/23/21 @ 13:53 by Rachelle Gordon, JOSE ALEJANDRO-C) Abdominal pain Atherosclerosis of coronary artery without angina pectoris Bilateral lower extremity edema Chest pain Chronic HFrEF (heart failure with reduced ejection fraction) Chronic kidney disease (CKD) COPD (chronic obstructive pulmonary disease) Dermatitis Diastolic dysfunction Elevated liver enzymes Essential (primary) hypertension Fatty liver Former smoker Gout History of non-ST elevation myocardial infarction (NSTEMI) (05/05/21) History of stress test Hyperlipidemia Ischemic cardiomyopathy Kidney stones Morbid obesity with BMI of 40.0-44.9, adult Non-rheumatic aortic stenosis Obstructive sleep apnea Osteoarthritis Secondary pulmonary arterial hypertension Type 2 diabetes mellitus Home Medications allopurinol 300 mg PO DAILY 04/10/16 [History Last Taken 07/21/21] aspirin 81 mg tablet,delayed release 81 mg PO DAILY 04/14/18 [History Last Taken 07/22/21] multivitamin 1 tab PO DAILY 01/25/19 [History Last Taken 07/21/21] glipizide 5 mg tablet 5 mg PO BID tab 05/23/19 [History Last Taken 07/21/21] torsemide 20 mg PO BID #60 tab 04/18/21 [Rx Last Taken 07/21/21] ferrous sulfate 325 mg (65 mg iron) tablet 325 mg PO BID tab 05/16/21 [History Last Taken 07/21/21] atorvastatin 80 mg tablet 80 mg PO QHS #14 tab 06/23/21 [Rx Last Taken 07/21/21] carvedilol 6.25 mg tablet 6.25 mg PO BID #28 tab 06/23/21 [Rx Last Taken 07/21/21] lisinopril 10 mg tablet 10 mg PO DAILY #90 tab 06/23/21 [Rx Last Taken 07/21/21] pantoprazole 40 mg PO DAILY 07/22/21 [History Last Taken 07/20/21] spironolactone 25 mg PO DAILY 07/22/21 [History Last Taken 07/21/21] Allergy/AdvReac Type Severity Reaction Status Date / Time metformin AdvReac Elevated Verified 07/22/21 14:31 LDH and anion gap Family History Mother , Age 80 Diabetes Hypertension Father , Age 55, coma Diabetes Hypertension Sister Hypertension Brother Diabetes Hypertension Cancer, Onset Age: 50 prostate cancer CAD (coronary artery disease) Surgical History History of appendectomy History of coronary artery stent placement (01/24/20) History of herniorrhaphy History of left heart catheterization (05/06/21) History of tonsillectomy History of total knee replacement (TKR) Social History household members: children Smoking Status: Former smoker quit date: 01/31/11 alcohol intake: current alcohol intake frequency: holidays/special occasions only substance use type: does not use caffeine: Yes Type: coffee ROS ROS Narrative 10 out of 10 review of system was done. ROS is as per HPI, otherwise noncontributory. Physical Exam Narrative General: Alert and oriented x3, NAD. HEENT: Normocephalic atraumatic mucous membrane moist. No mucosal erythema. PERRLA, EOMI. Neck: Supple, no JVD. Heart: Normal S1, S2. No rubs or murmurs. Lungs: Clear to auscultation bilaterally. Abdomen: Normal bowel sound, soft, nontender, no guarding or rebound. Extremity: No clubbing, cyanosis or edema. Full passive range of motion. Skin: No rash. Skin is warm and dry. Psychiatric: Normal mood and affect. Lab / Micro Data Result Diagrams: 07/23/21 05:50 07/23/21 05:50 Labs: Laboratory Results - last 24 hr 07/22/21 14:45: Total Bilirubin 0.70, Direct Bilirubin 0.24, AST 13 L, ALT 16, Alkaline Phosphatase 113, Total Protein 8.3 H, Albumin 3.9, Globulin 4.4 H 07/22/21 22:31: POC Glucose 90 07/22/21 23:10: Hgb 13.0, Hct 40.0 07/23/21 05:50: WBC 7.1, RBC 3.97 L, Hgb 11.5 L, Hct 37.1 L, MCV 93.5, MCH 29.0, MCHC 31.0 L, RDW Std Deviation 57.1 H, RDW Coeff of Raphael 16.6 H, Plt Count 102 L, MPV 12.5 H, Immature Gran % (Auto) 0.400, Neut % (Auto) 63.0, Lymph % (Auto) 23.8, [place] % (Auto) 7.9, Eos % (Auto) 4.5, Baso % (Auto) 0.4, Absolute Neuts (auto) 4.5, Absolute Lymphs (auto) 1.69, Nucleated RBC % 0 07/23/21 05:50: Sodium 140, Potassium 5.3 H, Chloride 113 H, Carbon Dioxide 20.0 L, Anion Gap 7, BUN 146 H*, Creatinine 5.67 H, Estim Creat Clear Calc 11.78, Est GFR (MDRD) Af Amer 13 L, Est GFR (MDRD) Non-Af 11 L, BUN/Creatinine Ratio 25.7 H , Glucose 87, Calcium 8.9, Magnesium 2.0 07/23/21 06:17: POC Glucose 89 07/23/21 10:39: POC Glucose 94 07/23/21 16:31: POC Glucose 93 Micro: Microbiology 07/22/21 15:09 Nasal Secretion SARS-CoV-2 Antigen (Rapid) - Final 07/22/21 14:48 Stool Stool Occult Blood (ANA M) - Final
[2021-07-23] MEDS: Pantoprazole Sodium 40 MG Tablet PO (21:39)
[2021-07-23] MEDS: Insulin Lispro 100 UNIT/ML INSULN.PEN SC (21:39)
[2021-07-23] MEDS: Atorvastatin Calcium 40 MG Tablet PO (21:39)
[2021-07-23 22:00] LABS: Bedside Glucose 222 mg/dL (70-110)
[2021-07-24] VITALS (7 sets, daily range): BP systolic 103–130; BP diastolic 55–60; PULSE 62–86; RESP 14–16; TEMP 36.4–36.6; O2SAT 96–99
[2021-07-24] MEDS: 0.9% Normal Saline 1,000 ML 100 ML IV ×2 (01:26→11:32)
[2021-07-24 05:56] LABS: Absolute Neutrophil Count 4.6 X10^3/uL (2.0-7.7); Basophil# 0.03 X10^3/uL; Basophil% 0.4 % (0-1); Eosinophil# 0.31 X10^3/uL; Eosinophils% 4.5 % (0-5); Hematocrit 37.2 % (40-54); Hemoglobin 11.5 g/dL (13.0-16.5); Lymphocyte % 20.3 % (19-41); Mean Corp Hgb Conc 30.9 g/dL (32-36); Mean Corpuscular Volume 93.9 fL (80-94); Mean Platelet Vol. 12.9 fl (6.2-12.0); Monocyte# 0.52 X10^3/uL; Monocyte% 7.5 % (0-10); NRBC Flagged by Analyzer 0 % (0-5); Neutrophil % 66.9 % (47-70); Platelet Count 104 K/mm3 (150-450); RBC Distribution Width CV 16.4 % (11.6-14.6); RBC Distribution Width SD 56.5 fl (35.1-43.9); Red Blood Count 3.96 M/mm3 (4.6-6.2); White Blood Count 6.9 K/mm3 (4.4-11.0)
[2021-07-24 06:28] LABS: Anion Gap 5 (5-15); BUN 97 mg/dL (7-18); BUN/Creat Ratio 28.7 RATIO (10-20); Calcium,Total 8.5 mg/dL (8.5-10.1); Chloride 118 mmol/L (98-107); Creatinine, Serum 3.38 mg/dL (0.70-1.30); EST Glomerular Filtration Rate 19 mL/min (>60); Est Glom Filt Rate - Afr Amer 23 mL/min (>60); Estimated Creatinine Clearance 19.76 ml/min; Glucose 140 mg/dL (74-106); Potassium 5.1 mmol/L (3.5-5.1); Sodium Level 143 mmol/L (136-145)
[2021-07-24 06:46] LABS: Bedside Glucose 88 mg/dL (70-110)
[2021-07-24] MEDS: Ensure Clear 120 ML Liquid PO (11:31)
[2021-07-24] MEDS: Ferrous Sulfate 325 MG Tablet PO (11:33)
[2021-07-24] MEDS: Pantoprazole Sodium 40 MG Tablet PO (11:34)
[2021-07-24] MEDS: Aspirin E.C. 81 MG Tablet PO (11:34)
[2021-07-24] MEDS: Carvedilol 6.25 MG Tablet PO (11:34)
[2021-07-24] MEDS: Allopurinol 100 MG Tablet PO (11:34)
[2021-07-24 11:36] LABS: Bedside Glucose 133 mg/dL (70-110)
--- NOTE | 2021-07-24 13:25 | DCINST_ITS ---
Discharge Instructions Diet Discharge Diet: Light diet - advance as tolerated and Low fat / Low cholesterol Activity Discharge Activity: Return to Normal Activity Dressing / Incision Call your doctor if you observe: Shortness of breath, Dizziness and Chest pain Follow Up Care Test Results: Test results from this visit will be discussed in further detail at your follow-up appointment, if applicable. Discharge Plan Admission Admit Date/Time: 07/22/21 18:45 Primary Reason for Your Visit: Acute kidney injury, gastritis Attending Provider: Reg Rob Primary Care Provider: Boston Figueroa Consulting Providers: Margaret Stinson Instructions Additional Instructions / Restrictions: You will need repeat BMP in 1 week to reassess kidney function, this can be completed by nephrology or PCP. Discharge Orders/Prescriptions Prescriptions: New allopurinol 100 mg Tablet 100 mg PO DAILYCM Qty: 30 RF: 0 pantoprazole 40 mg Tablet,Delayed Release (Dr/Ec) 40 mg PO BID Qty: 60 RF: 1 Continued aspirin [Adult Aspirin Regimen] 81 mg tablet,delayed release (DR/EC) 81 mg PO DAILY RF: 0 multivitamin [Daily Multi-Vitamin] tablet 1 tab PO DAILY RF: 0 glipizide 5 mg tablet 5 mg PO BID RF: 0 ferrous sulfate [FeroSul] 325 mg (65 mg iron) tablet 325 mg PO BID RF: 0 atorvastatin 80 mg tablet 80 mg PO QHS Qty: 14 RF: 0 carvedilol 6.25 mg tablet 6.25 mg PO BID Qty: 28 RF: 0 Held torsemide 20 mg tablet 20 mg PO BID Qty: 60 RF: 0 Hold Instructions: Resume on 08/07/21. Hold until repeat BMP/follow-up with nephrology. spironolactone 25 mg tablet 25 mg PO DAILY RF: 0 Hold Instructions: Resume on 08/07/21. Hold until repeat BMP/follow-up with nephrology. lisinopril 10 mg tablet 10 mg PO DAILY Qty: 90 RF: 3 Hold Instructions: Resume on 08/07/21. Hold until follow up BMP. Discontinued allopurinol 300 MG tablet 300 mg PO DAILY RF: 0 pantoprazole 40 mg tablet,delayed release (DR/EC) 40 mg PO DAILY RF: 0 Referrals / Follow Up: Boston Figueroa MD [Primary Care Provider] - In 1 Week Emeterio Hutchinson MD [STAFF PHYSICIAN] - In 1 Week (Office to arrange follow up) Kendra Bonilla, PA [PHYSICIAN CABLE SPLICING TECHNICIAN] - See Referral Note (As scheduled 09/08/2021) Disposition Disposition (needs filled in before D/C Order can be placed): Home, Self Care
--- NOTE | 2021-07-24 13:47 | PCM.DC.SUM ---
Documented by User: Jolynn Granger NP, ACCOUNTANT HELPER-C 07/24/21 14:08 Providers Date of Admission: 07/22/21 Date of Discharge: 07/24/21 Primary Care Physician: Dr. Boston Figueroa MD Consultations 07/22/21 20:11 Consult: Gastroenterology Routine Consulting Provider: [facility] Reason for Consult: Concern for GI Bleed, left abd pain. No recent EGD EMERGENT Consult: No MD Notified: Yes Date Notified: 07/22/21 Time Notified: 20:12 Method of Notification: Verbal 07/22/21 22:11 Consult: Nephrology Routine Consulting Provider: Margaret Stinson Reason for Consult: YADIRA on CKD stage 3b EMERGENT Consult: No MD Notified: Yes Date Notified: 07/23/21 Time Notified: 06:43 Method of Notification: Answering Service Reason For Visit: YADIRA, DIARRHEA, DIFFUSE ABD CRAMPS Diagnosis Discharge Diagnosis (1) YADIRA (acute kidney injury): Status: Acute Code(s): N17.9 - Acute kidney failure, unspecified (2) Chronic kidney disease (CKD): Status: Chronic Code(s): N18.9 - Chronic kidney disease, unspecified (3) Anemia: Status: Acute Code(s): D64.9 - Anemia, unspecified Qualifiers: Anemia type: other cause Other causes of anemia: acute posthemorrhagic Qualified Code(s): D62 - Acute posthemorrhagic anemia (4) Essential (primary) hypertension: Status: Chronic Code(s): I10 - Essential (primary) hypertension Medications at Discharge Home Medications aspirin 81 mg tablet,delayed release 81 mg PO DAILY 04/14/18 multivitamin 1 tab PO DAILY 01/25/19 glipizide 5 mg tablet 5 mg PO BID tab 05/23/19 torsemide 20 mg PO BID #60 tab 04/18/21 ferrous sulfate 325 mg (65 mg iron) tablet 325 mg PO BID tab 05/16/21 atorvastatin 80 mg tablet 80 mg PO QHS #14 tab 06/23/21 carvedilol 6.25 mg tablet 6.25 mg PO BID #28 tab 06/23/21 lisinopril 10 mg tablet 10 mg PO DAILY #90 tab 06/23/21 spironolactone 25 mg PO DAILY 07/22/21 allopurinol 100 mg PO DAILYCM #30 tab 07/24/21 pantoprazole 40 mg PO BID #60 tab 07/24/21 Hospital Course Operations None Procedures Colonoscopy and EGD Summary of Care Provided Minutes Spent on Discharge: 35 Hospital Course: Patient is a 71-year-old male admitted 07/22/2021 due to black stool, abdominal pain, nausea/vomiting, diarrhea. 1. Acute kidney injury on chronic kidney disease stage IIIb-secondary to GI loss and diuretic regimen. Lisinopril, spironolactone, torsemide held at discharge. Follow-up with nephrology in 1 week. Creatinine significantly improved. Will need repeat BMP within 1 week. May resume diuretic regimen pending nephrology follow up/repeat BMP. 2. Acute duodenitis, nonbleeding gastric ulcer-underwent EGD. Continue Protonix 40 mg twice daily for 3 months. Follow-up with GI in 2 weeks. Hemoglobin stable. 3. 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 No acute failure. Continue medical management. 4. CAD with history of PCI X10, history of NSTEMI-continue medical management. Follows with Dr. Bae. Continue follow-up with cardiology as scheduled 5. Hypertension-stable, diuretic regimen held at discharge as noted above. 6. Hyperlipidemia-continue statin. 7. Morbid obesity-encouraged diet lifestyle modifications. 8. Type 2 diabetes mellitus-continue home oral regimen. 9. Former tobacco use-encouraged continued cessation. 10. GERD-continue PPI. Patient seen and examined prior to discharge. Physical assessment as noted below. Patient is stable for discharge with follow up recommendations as noted above. This patient was seen by TIMUR Mccrary under the supervision of Dr. Rob. Physical Exam Const alert, oriented x3 and no apparent distress Orientation / Consciousness: awake, oriented to person, oriented to place and oriented to time HEENT normocephalic and moist oral mucous membranes Eyes PERRL, EOMs intact bilaterally and conjunctivae normal Neck no lymphadenopathy Resp normal respiratory effort and clear to auscultation bilaterally Cardio regular rate, regular rhythm and no murmurs Peripheral Pulses: pulses 2+ throughout GI normal to inspection, nondistended, normoactive bowel sounds, non-tender and non-distended Extremity normal to inspection Skin no rashes or lesions noted Lesions: no lesions Rashes: no rashes Trauma: no lacerations or abrasions Neuro CN's II-XII intact bilaterally, no focal motor deficits, no sensory deficits noted and deep tendon reflexes 2+ bilaterally Psych mental status grossly normal and affect normal Weight / BMI Weight Weight: 242 lb 11.663 oz Body Mass Index (BMI) 35.8 ABG / Lab / Microbiology Data Result Diagrams: 07/24/21 05:38 07/24/21 05:38 Laboratory: Laboratory Results - last 24 hr 07/23/21 16:31: POC Glucose 93 07/23/21 21:33: POC Glucose 222 H 07/24/21 05:38: WBC 6.9, RBC 3.96 L, Hgb 11.5 L, Hct 37.2 L, MCV 93.9, MCH 29.0, MCHC 30.9 L, RDW Std Deviation 56.5 H, RDW Coeff of Raphael 16.4 H, Plt Count 104 L, MPV 12.9 H, Immature Gran % (Auto) 0.400, Neut % (Auto) 66.9, Lymph % (Auto) 20.3, [facility] % (Auto) 7.5, Eos % (Auto) 4.5, Baso % (Auto) 0.4, Absolute Neuts (auto) 4.6, Absolute Lymphs (auto) 1.40, Nucleated RBC % 0 07/24/21 05:38: Sodium 143, Potassium 5.1, Chloride 118 H, Carbon Dioxide 20.0 L, Anion Gap 5, BUN 97 H, Creatinine 3.38 H, Estim Creat Clear Calc 19.76, Est GFR (MDRD) Af Amer 23 L, Est GFR (MDRD) Non-Af 19 L, BUN/Creatinine Ratio 28.7 H, Glucose 140 H, Calcium 8.5 07/24/21 06:31: POC Glucose 88 07/24/21 11:25: POC Glucose 133 H Microbiology: Microbiology 07/22/21 15:09 Nasal Secretion SARS-CoV-2 Antigen (Rapid) - Final 07/22/21 14:48 Stool Stool Occult Blood (ANA M) - Final D/C Instructions Discharge Diet: Light diet - advance as tolerated and Low fat / Low cholesterol Call your doctor if you observe: Shortness of breath, Dizziness and Chest pain Meaningful Use Info Meaningful Use Diagnoses (Choose all that apply): None applicable Discharge Plan Admission Admit Date/Time: 07/22/21 18:45 Primary Reason for Your Visit: Acute kidney injury, gastritis Attending Provider: Reg Rob Primary Care Provider: Boston Figueroa Consulting Providers: Margaret Stinson Instructions Additional Instructions / Restrictions: You will need repeat BMP in 1 week to reassess kidney function, this can be completed by nephrology or PCP. Discharge Orders/Prescriptions Prescriptions: New allopurinol 100 mg Tablet 100 mg PO DAILYCM Qty: 30 RF: 0 pantoprazole 40 mg Tablet,Delayed Release (Dr/Ec) 40 mg PO BID Qty: 60 RF: 1 Continued aspirin [Adult Aspirin Regimen] 81 mg tablet,delayed release (DR/EC) 81 mg PO DAILY RF: 0 multivitamin [Daily Multi-Vitamin] tablet 1 tab PO DAILY RF: 0 glipizide 5 mg tablet 5 mg PO BID RF: 0 ferrous sulfate [FeroSul] 325 mg (65 mg iron) tablet 325 mg PO BID RF: 0 atorvastatin 80 mg tablet 80 mg PO QHS Qty: 14 RF: 0 carvedilol 6.25 mg tablet 6.25 mg PO BID Qty: 28 RF: 0 Held torsemide 20 mg tablet 20 mg PO BID Qty: 60 RF: 0 Hold Instructions: Resume on 08/07/21. Hold until repeat BMP/follow-up with nephrology. spironolactone 25 mg tablet 25 mg PO DAILY RF: 0 Hold Instructions: Resume on 08/07/21. Hold until repeat BMP/follow-up with nephrology. lisinopril 10 mg tablet 10 mg PO DAILY Qty: 90 RF: 3 Hold Instructions: Resume on 08/07/21. Hold until follow up BMP. Discontinued allopurinol 300 MG tablet 300 mg PO DAILY RF: 0 pantoprazole 40 mg tablet,delayed release (DR/EC) 40 mg PO DAILY RF: 0 Referrals / Follow Up: Boston Figueroa MD [Primary Care Provider] - 07/30/21 10:20 am Emeterio Hutchinson MD [STAFF PHYSICIAN] - In 1 Week (Please call for an appointment. ) Jose Maria Mcgill DO [STAFF PHYSICIAN] - Within 2 Weeks Kendra Bonilla PA [PHYSICIAN EXPERIMENTAL PREFLIGHT MECHANIC] - 09/08/21 (As scheduled 09/08/2021) Disposition Disposition (needs filled in before D/C Order can be placed): Home, Self Care Documented by User: Dr. Reg Rob MD 07/24/21 14:25 Providers Date of Admission: 07/22/21 Reason For Visit: YADIRA, DIARRHEA, DIFFUSE ABD CRAMPS Medications at Discharge Home Medications aspirin 81 mg tablet,delayed release 81 mg PO DAILY 04/14/18 multivitamin 1 tab PO DAILY 01/25/19 glipizide 5 mg tablet 5 mg PO BID tab 05/23/19 torsemide 20 mg PO BID #60 tab 04/18/21 ferrous sulfate 325 mg (65 mg iron) tablet 325 mg PO BID tab 05/16/21 atorvastatin 80 mg tablet 80 mg PO QHS #14 tab 06/23/21 carvedilol 6.25 mg tablet 6.25 mg PO BID #28 tab 06/23/21 lisinopril 10 mg tablet 10 mg PO DAILY #90 tab 06/23/21 spironolactone 25 mg PO DAILY 07/22/21 allopurinol 100 mg PO DAILYCM #30 tab 07/24/21 pantoprazole 40 mg PO BID #60 tab 07/24/21 Hospital Course Operations None Summary of Care Provided Minutes Spent on Discharge: 35 Hospital Course: This patient was seen in conjunction with TIMUR Mccrary . I have independently interviewed and examined the patient and reviewed pertinent historical, laboratory, and other data. Please refer to TIMUR Mccrary note for details of this patient's presentation, findings, and recommendations. I have reviewed TIMUR Mccrary note and concur with documented findings. In brief, patient is a 72-year-old gentleman who presented to the emergency department with nausea and dyspepsia as well as black tarry stools. Patient also complains of having experienced diarrhea at home. Patient was found to have marked impaired kidney function admitted to a monitored bed for subsequent management Assessment: 1. Acute kidney injury 2. Chronic kidney disease stage III 3. Coronary artery disease status post non-STEMI with PCI with stent placement 4. Gout 5. Diabetes mellitus type 2 6. GERD 7. Dyslipidemia 8. Hypertension 9. Ischemic cardiomyopathy 10. COPD 11. History of nonalcoholic fatty liver disease Hospital course: As documented above ABG / Lab / Microbiology Data Result Diagrams: 07/24/21 05:38 07/24/21 05:38 Discharge Plan Admission Admit Date/Time: 07/22/21 18:45 Primary Reason for Your Visit: Acute kidney injury, gastritis Attending Provider: Reg Rob Primary Care Provider: Boston Figueroa Consulting Providers: Margaret Stinson Instructions Additional Instructions / Restrictions: You will need repeat BMP in 1 week to reassess kidney function, this can be completed by nephrology or PCP. Discharge Orders/Prescriptions Prescriptions: New allopurinol 100 mg Tablet 100 mg PO DAILYCM Qty: 30 RF: 0 pantoprazole 40 mg Tablet,Delayed Release (Dr/Ec) 40 mg PO BID Qty: 60 RF: 1 Continued aspirin [Adult Aspirin Regimen] 81 mg tablet,delayed release (DR/EC) 81 mg PO DAILY RF: 0 multivitamin [Daily Multi-Vitamin] tablet 1 tab PO DAILY RF: 0 glipizide 5 mg tablet 5 mg PO BID RF: 0 ferrous sulfate [FeroSul] 325 mg (65 mg iron) tablet 325 mg PO BID RF: 0 atorvastatin 80 mg tablet 80 mg PO QHS Qty: 14 RF: 0 carvedilol 6.25 mg tablet 6.25 mg PO BID Qty: 28 RF: 0 Held torsemide 20 mg tablet 20 mg PO BID Qty: 60 RF: 0 Hold Instructions: Resume on 08/07/21. Hold until repeat BMP/follow-up with nephrology. spironolactone 25 mg tablet 25 mg PO DAILY RF: 0 Hold Instructions: Resume on 08/07/21. Hold until repeat BMP/follow-up with nephrology. lisinopril 10 mg tablet 10 mg PO DAILY Qty: 90 RF: 3 Hold Instructions: Resume on 08/07/21. Hold until follow up BMP. Discontinued allopurinol 300 MG tablet 300 mg PO DAILY RF: 0 pantoprazole 40 mg tablet,delayed release (DR/EC) 40 mg PO DAILY RF: 0 Referrals / Follow Up: Boston Figueroa MD [Primary Care Provider] - 07/30/21 10:20 am Emeterio Hutchinson MD [STAFF PHYSICIAN] - In 1 Week (Please call for an appointment. ) Artem,DO Jose Maria [STAFF PHYSICIAN] - Within 2 Weeks Kendra Bonilla PA [PHYSICIAN EXPERIMENTAL PREFLIGHT MECHANIC] - 09/08/21 (As scheduled 09/08/2021) Disposition Disposition (needs filled in before D/C Order can be placed): Home, Self Care Charges/Coding Visit Charges Inpatient E&M: 25500 Disch Hosp Hospital Course Consultations Consultations: Consultations 07/22/21 20:11 Consult: Gastroenterology Routine Consulting Provider: [facility] Reason for Consult: Concern for GI Bleed, left abd pain. No recent EGD EMERGENT Consult: No Notified: Yes Date Notified: 07/22/21 Time Notified: 20:12 Method of Notification: Verbal 07/22/21 22:11 Consult: Nephrology Routine Consulting Provider: Margaret Stinson Reason for Consult: YADIRA on CKD stage 3b EMERGENT Consult: No Notified: Yes Date Notified: 07/23/21 Time Notified: 06:43 Method of Notification: Answering Service Operations None
--- NOTE | 2021-07-24 14:02 | PCM.PN.REN ---
Documented by User: TIMUR Millan 07/24/21 14:21 Subjective Subjective Seen in room, patient is resting in bed. No acute complaints. Denies any vomiting or diarrhea. Objective Data Objective Data Vital Signs: Vital Signs Temp Pulse Resp BP Pulse Ox 97.9 F 69 14 120/59 L 97 07/24/21 11:13 07/24/21 11:13 07/24/21 11:13 07/24/21 11:13 07/24/21 11:13 Oxygen Delivery Method Room Air Weight: 110.1 kg Body Mass Index (BMI) 35.8 Intake & Output: Intake and Output for Last 24 Hours 07/22/21 07/23/21 07/24/21 23:59 23:59 23:59 Intake Total 2836.67 / 2836.67 2435.01 / 2435.01 1365 / 1365 Output Total 500 / 500 2325 / 2325 895 / 895 Balance 2336.67 / 2336.67 110.01 / 110.01 470 / 470 Lab / Micro Data Result Diagrams: 07/24/21 05:38 07/24/21 05:38 Labs: Laboratory Results - last 24 hr 07/23/21 16:31: POC Glucose 93 07/23/21 21:33: POC Glucose 222 H 07/24/21 05:38: WBC 6.9, RBC 3.96 L, Hgb 11.5 L, Hct 37.2 L, MCV 93.9, MCH 29.0, MCHC 30.9 L, RDW Std Deviation 56.5 H, RDW Coeff of Raphael 16.4 H, Plt Count 104 L, MPV 12.9 H, Immature Gran % (Auto) 0.400, Neut % (Auto) 66.9, Lymph % (Auto) 20.3, Mitchell % (Auto) 7.5, Eos % (Auto) 4.5, Baso % (Auto) 0.4, Absolute Neuts (auto) 4.6, Absolute Lymphs (auto) 1.40, Nucleated RBC % 0 07/24/21 05:38: Sodium 143, Potassium 5.1, Chloride 118 H, Carbon Dioxide 20.0 L, Anion Gap 5, BUN 97 H, Creatinine 3.38 H, Estim Creat Clear Calc 19.76, Est GFR (MDRD) Af Amer 23 L, Est GFR (MDRD) Non-Af 19 L, BUN/Creatinine Ratio 28.7 H, Glucose 140 H, Calcium 8.5 07/24/21 06:31: POC Glucose 88 07/24/21 11:25: POC Glucose 133 H Micro: Microbiology 07/22/21 15:09 Nasal Secretion SARS-CoV-2 Antigen (Rapid) - Final 07/22/21 14:48 Stool Stool Occult Blood (ANA M) - Final Physical Exam Narrative General: Alert and oriented x3, NAD. HEENT: Normocephalic atraumatic mucous membrane moist. Neck: Supple, no JVD. Heart: Normal S1, S2. No rubs or murmurs. Lungs: Clear to auscultation bilaterally. Abdomen: Normal bowel sounds, soft, nontender Extremity: No edema. Full passive range of motion. Skin: No rash. Skin is warm and dry. Assessment & Plan Assessment/Plan (1) YADIRA (acute kidney injury): PLAN: Nonoliguric, hypovolemic YADIRA is likely due to prerenal azotemia versus ischemic ATN. The patient had poor oral intake along with increasing GI loss. This has occurred in the setting of continued use of ARCADIO inhibitor, torsemide and aldactone. Renal function has improved with IV fluids. There is no significant hyperkalemia, acidosis or volume overload. There is no need for hemodialysis. Creatinine peaked 8.21, BUN 167 and today has improved to a creatinine of 3.38 and BUN 97. No acute indication for BOWLING BALL PATCHER, potassium and acid-base acceptable. Will arrange for hospital follow-up. OK for discharge per renal standpoint; discussed with patient and primary team. Patient to remain off of lisinopril, torsemide and Aldactone until seen in office. Patient does not take NSAIDs. follow up 08/07/2021 at 12:00 (2) Chronic kidney disease (CKD): PLAN: CKD stage III, followed by Dr. Hutchinson. Baseline serum creatinine is around 1.7 mg/dL. (3) Anemia: QUALIFIERS: Anemia type: other cause Other causes of anemia: acute posthemorrhagic Qualified Code(s): D62 - Acute posthemorrhagic anemia PLAN: The patient is diagnosed with non-bleeding gastric ulcer/acute duodenitis which is being treated by GI. On PPI. (4) Essential (primary) hypertension: PLAN: BP is acceptable off of ARCADIO inhibitor for now. On carvedilol. Documented by User: Dr. Kaitlyn Macdonald MD 07/24/21 18:50 Objective Data Lab / Micro Data Result Diagrams: 07/24/21 05:38 07/24/21 05:38
--- NOTE | 2021-07-24 14:51 | CHAPLAIN ---
Type of Pastoral Visit _x__ Initial Visit ___ Follow-up Visit ___ On-call Visit ___ General Patient Visit ___ Spiritual Assessment ___ Family Conference ___ Bereavement ___ Rapid Response ___ Code Blue ___ Other (describe below) Pastoral Care Referral From _x__ Patient ___ Family ___ Nurse ___ Physician ___ Workers Compensation Claims Adjuster ___ Electrifier Operator ___ Other (describe below) Sacrament/Intervention _x__ Active listening ___ Anointing ___ Temple ___ Bereavement ___ Communion ___ Genia exploration ___ ___ Life review _x__ Prayer ___ Reconciliation ___ Sacrament of Sick _x__ Supportive presence ___ Wedding ___ Other (describe below) Pastoral Comments
--- NOTE | 2021-07-25 14:05 | CASEMGMT ---
RN CM Discharge F/U Phone Call LACE: 12 Strata: 3 Discharge date: 07/24/21 Call date: 07/25/21 Call time: [id number] Attempted to reach pt without success and message left for pt to call this RN CM back if/when able. [place] RN CM Admission dx: YADIRA, diarrhea, diffuse abd cramps
== END 2021-07-24 19:45 | disposition home or self-care (01) | DRG 683 ==
LOC: ED 18:49 → PCU 07-23 00:41
PROVIDERS: Internal Medicine Gastroenterology; Nurse Practitioner Family; Admitting Provider Internal Medicine; Emergency Provider Student in an Organized Health Care Education/Training Program; PCP Family Medicine; Visit Provider Internal Medicine
PROC: 0DJ08ZZ Inspection of Upper Intestinal Tract, Via Natural or Artificial Opening Endoscopic (ICD-10-PCS; CPT 43235; principal; 2021-07-23 11:55)
DX: N17.9 Acute kidney failure, unspecified (principal); I13.0 Hypertensive heart and chronic kidney disease with heart failure and stage 1 through stage 4 chronic kidney disease, or unspecified chronic kidney disease; I50.42 Chronic combined systolic (congestive) and diastolic (congestive) heart failure; I27.21 Secondary pulmonary arterial hypertension; I95.9 Hypotension, unspecified; E11.22 Type 2 diabetes mellitus with diabetic chronic kidney disease; J44.9 Chronic obstructive pulmonary disease, unspecified; E66.01 Morbid (severe) obesity due to excess calories; N18.32 Chronic kidney disease, stage 3b; K29.80 Duodenitis without bleeding; I25.10 Atherosclerotic heart disease of native coronary artery without angina pectoris; E86.0 Dehydration; I25.5 Ischemic cardiomyopathy; E78.5 Hyperlipidemia, unspecified; M19.90 Unspecified osteoarthritis, unspecified site; M10.9 Gout, unspecified; K21.9 Gastro-esophageal reflux disease without esophagitis; G47.33 Obstructive sleep apnea (adult) (pediatric); I25.2 Old myocardial infarction; K25.9 Gastric ulcer, unspecified as acute or chronic, without hemorrhage or perforation; T39.395A Adverse effect of other nonsteroidal anti-inflammatory drugs [NSAID], initial encounter; Y92.9 Unspecified place or not applicable; Z20.822 Contact with and (suspected) exposure to COVID-19; Z68.35 Body mass index [BMI] 35.0-35.9, adult; Z79.82 Long term (current) use of aspirin; Z79.84 Long term (current) use of oral hypoglycemic drugs; Z79.899 Other long term (current) drug therapy; Z87.891 Personal history of nicotine dependence; Z95.5 Presence of coronary angioplasty implant and graft
CPT/HCPCS: 36415; 71045; 74176; 80048; 80076; 81001; 82274; 82962; 83690; 83735; 84484; 85014; 85018; 85025; 86850; 86900; 86901; 87426; 88305; 93005; 97802; 99251; 99283; J7030; J7120; A4216; G0463; J2405

== ENCOUNTER → 2021-08-08 | Outpatient (CLI) | payer MEDICARE, SELFPAY ==
[2020-03-07 09:49] VITALS: BMI 41.8
[2021-08-08 13:02] LABS: Absolute Lymphocyte Count 1.06 X10^3/uL (0.83-4.51); Absolute Neutrophil Count 3.3 X10^3/uL (2.0-7.7); Basophil# 0.04 X10^3/uL; Basophil% 0.8 % (0-1); Eosinophil# 0.29 X10^3/uL; Eosinophils% 5.6 % (0-5); Hematocrit 39.2 % (40-54); Hemoglobin 12.2 g/dL (13.0-16.5); Lymphocyte # 1.06 X10^3/ul (0.83-4.51); Lymphocyte % 20.5 % (19-41); Mean Corp Hgb Conc 31.1 g/dL (32-36); Mean Corpuscular Volume 93.1 fL (80-94); Mean Platelet Vol. 10.2 fl (6.2-12.0); Monocyte# 0.52 X10^3/uL; NRBC Flagged by Analyzer 0 % (0-5); Neutrophil # 3.25 X10^3/uL (2.7-7.7); Neutrophil % 62.7 % (47-70); Platelet Count 152 K/mm3 (150-450); RBC Distribution Width SD 57.7 fl (35.1-43.9); Red Blood Count 4.21 M/mm3 (4.6-6.2); White Blood Count 5.2 K/mm3 (4.4-11.0)
[2021-08-08 13:29] LABS: ALB/GLOB Ratio 0.8 RATIO (0.9-2.4); AST(SGOT) 11 U/L (15-37); Alanine Aminotransfer ALT/SGPT 21 U/L (16-61); Albumin, Serum 3.1 g/dL (3.2-5.0); Alkaline Phosphatase 137 U/L (45-117); Anion Gap 5 (5-15); BUN 14 mg/dL (7-18); Calcium,Total 8.8 mg/dL (8.5-10.1); Chloride 105 mmol/L (98-107); Creatinine, Serum 1.17 mg/dL (0.70-1.30); EST Glomerular Filtration Rate 65 mL/min (>60); Est Glom Filt Rate - Afr Amer 79 mL/min (>60); Glucose 85 mg/dL (74-106); Potassium 4.7 mmol/L (3.5-5.1); Protein, Total 7.1 g/dL (6.4-8.2); Sodium Level 140 mmol/L (136-145)
== END | disposition home or self-care (01) ==
PROVIDERS: PCP Family Medicine; Referring Provider Internal Medicine Gastroenterology; Visit Provider Internal Medicine Gastroenterology
DX: K92.2 Gastrointestinal hemorrhage, unspecified (principal); E78.5 Hyperlipidemia, unspecified
CPT/HCPCS: 36415; 80053; 85025

== ENCOUNTER → 2021-09-19 11:41 | Outpatient (CLI) | payer MEDICARE, SELFPAY ==
[2020-03-07 09:49] VITALS: BMI 41.8
[2021-09-19 13:27] LABS: Anion Gap 4 (5-15); BUN 35 mg/dL (7-18); BUN/Creat Ratio 22.2 RATIO (10-20); Calcium,Total 9.5 mg/dL (8.5-10.1); Chloride 100 mmol/L (98-107); Creatinine, Serum 1.58 mg/dL (0.70-1.30); EST Glomerular Filtration Rate 46 mL/min (>60); Est Glom Filt Rate - Afr Amer 56 mL/min (>60); Glucose 117 mg/dL (74-106); Sodium Level 139 mmol/L (136-145)
== END ==
PROVIDERS: PCP Family Medicine; Referring Provider Nurse Practitioner Gerontology; Visit Provider Nurse Practitioner Gerontology
DX: I25.5 Ischemic cardiomyopathy (principal); I50.22 Chronic systolic (congestive) heart failure; R06.01 Orthopnea
CPT/HCPCS: 36415; 80048

== ENCOUNTER → 2021-09-24 10:55 | Outpatient (CLI) | payer MEDICARE, SELFPAY ==
[2020-03-07 09:49] VITALS: BMI 41.8
[2021-09-24 11:25] LABS: Absolute Neutrophil Count 4.4 X10^3/uL (2.0-7.7); Basophil# 0.07 X10^3/uL; Eosinophil# 0.29 X10^3/uL; Eosinophils% 4.2 % (0-5); Hematocrit 47.8 % (40-54); Hemoglobin 14.9 g/dL (13.0-16.5); Lymphocyte % 23.1 % (19-41); Mean Corp Hgb Conc 31.2 g/dL (32-36); Mean Corpuscular Hgb 29.7 pg (27.0-32.0); Mean Corpuscular Volume 95.2 fL (80-94); Mean Platelet Vol. 10.5 fl (6.2-12.0); Monocyte# 0.55 X10^3/uL; Monocyte% 7.9 % (0-10); NRBC Flagged by Analyzer 0 % (0-5); Neutrophil # 4.39 X10^3/uL (2.7-7.7); Neutrophil % 63.4 % (47-70); Platelet Count 208 K/mm3 (150-450); RBC Distribution Width CV 13.9 % (11.6-14.6); RBC Distribution Width SD 49.6 fl (35.1-43.9); RET-HE 35.9 pg (30-35); Red Blood Count 5.02 M/mm3 (4.6-6.2); Reticulocyte Count 1.45 % (0.5-1.5); White Blood Count 6.9 K/mm3 (4.4-11.0)
[2021-09-24 12:04] LABS: Anion Gap 7 (5-15); BUN 41 mg/dL (7-18); Chloride 102 mmol/L (98-107); Creatinine, Serum 1.64 mg/dL (0.70-1.30); EST Glomerular Filtration Rate 44 mL/min (>60); Est Glom Filt Rate - Afr Amer 53 mL/min (>60); Glucose 107 mg/dL (74-106); Potassium 4.1 mmol/L (3.5-5.1); Sodium Level 141 mmol/L (136-145)
[2021-09-24 12:05] LABS: ALB/GLOB Ratio 0.9 RATIO (0.9-2.4); AST(SGOT) 14 U/L (15-37); Alanine Aminotransfer ALT/SGPT 26 U/L (16-61); Albumin, Serum 3.9 g/dL (3.2-5.0); Alkaline Phosphatase 135 U/L (45-117); Anion Gap 10 (5-15); BUN 40 mg/dL (7-18); BUN/Creat Ratio 24.4 RATIO (10-20); Calcium,Total 8.8 mg/dL (8.5-10.1); Chloride 102 mmol/L (98-107); Creatinine, Serum 1.64 mg/dL (0.70-1.30); EST Glomerular Filtration Rate 44 mL/min (>60); Est Glom Filt Rate - Afr Amer 53 mL/min (>60); Ferritin 114 ng/mL (26-388); Globulin 4.2 g/dL (2.2-4.2); Glucose 103 mg/dL (74-106); Iron 83 ug/dL (65-175); Iron Binding Capacity,Total 338 ug/dL (250-450); PERCENT IRON SATURATION 24.6 % (15.0-55.0); Potassium 4.2 mmol/L (3.5-5.1); Protein, Total 8.1 g/dL (6.4-8.2); Sodium Level 142 mmol/L (136-145)
== END ==
PROVIDERS: Nurse Practitioner Gerontology; PCP Family Medicine; Referring Provider Internal Medicine Gastroenterology; Visit Provider Internal Medicine Gastroenterology
DX: K92.2 Gastrointestinal hemorrhage, unspecified (principal); I25.5 Ischemic cardiomyopathy; I11.0 Hypertensive heart disease with heart failure; I50.22 Chronic systolic (congestive) heart failure
CPT/HCPCS: 36415; 80048; 80053; 82728; 83540; 83550; 85025; 85045

== ENCOUNTER → 2021-10-09 06:40 | Outpatient (CLI) | payer MEDICARE, SELFPAY ==
[2020-03-07 09:49] VITALS: BMI 41.8
[2021-10-09 07:44] LABS: Absolute Lymphocyte Count 1.81 X10^3/uL (0.83-4.51); Absolute Neutrophil Count 4.3 X10^3/uL (2.0-7.7); Basophil# 0.03 X10^3/uL; Basophil% 0.4 % (0-1); Eosinophil# 0.34 X10^3/uL; Eosinophils% 4.8 % (0-5); Hematocrit 39.9 % (40-54); Hemoglobin 12.7 g/dL (13.0-16.5); Immature Platelet Fraction 6.4 % (1.0-7.9); Lymphocyte # 1.81 X10^3/ul (0.83-4.51); Lymphocyte % 25.7 % (19-41); Mean Corp Hgb Conc 31.8 g/dL (32-36); Mean Corpuscular Hgb 30.8 pg (27.0-32.0); Mean Corpuscular Volume 96.8 fL (80-94); Mean Platelet Vol. 11.5 fl (6.2-12.0); Monocyte# 0.56 X10^3/uL; Monocyte% 7.9 % (0-10); NRBC Flagged by Analyzer 0 % (0-5); Neutrophil # 4.28 X10^3/uL (2.7-7.7); Neutrophil % 60.8 % (47-70); POSITIVE COUNT YES; Platelet Count 117 K/mm3 (150-450); RBC Distribution Width CV 13.8 % (11.6-14.6); RBC Distribution Width SD 49.1 fl (35.1-43.9); RET-HE 36.7 pg (30-35); Red Blood Count 4.12 M/mm3 (4.6-6.2); Reticulocyte Count 2.33 % (0.5-1.5); White Blood Count 7.1 K/mm3 (4.4-11.0)
[2021-10-09 07:45] LABS: Differential Indicated SCAN CRITERIA MET
[2021-10-09 08:13] LABS: ALB/GLOB Ratio 0.9 RATIO (0.9-2.4); AST(SGOT) 18 U/L (15-37); Alanine Aminotransfer ALT/SGPT 23 U/L (16-61); Albumin, Serum 3.3 g/dL (3.2-5.0); Alkaline Phosphatase 111 U/L (45-117); Anion Gap 5 (5-15); BUN 20 mg/dL (7-18); BUN/Creat Ratio 17.2 RATIO (10-20); Calcium,Total 8.9 mg/dL (8.5-10.1); Chloride 111 mmol/L (98-107); Creatinine, Serum 1.16 mg/dL (0.70-1.30); EST Glomerular Filtration Rate 66 mL/min (>60); Est Glom Filt Rate - Afr Amer 79 mL/min (>60); Ferritin 70 ng/mL (26-388); Globulin 3.6 g/dL (2.2-4.2); Glucose 91 mg/dL (74-106); Iron 64 ug/dL (65-175); Iron Binding Capacity,Total 335 ug/dL (250-450); PERCENT IRON SATURATION 19.1 % (15.0-55.0); Potassium 4.5 mmol/L (3.5-5.1); Protein, Total 6.9 g/dL (6.4-8.2); Sodium Level 140 mmol/L (136-145)
[2021-10-10 15:08] LABS: Albumin 3.6 g/dL (2.9-4.4); Alpha-1-Globulins 0.2 g/dL (0.0-0.4); Alpha-2-Globulins 0.8 g/dL (0.4-1.0); Gamma Globulin 0.7 g/dL (0.4-1.8); Immunoglobulin A 145 mg/dL (61-437); Immunoglobulin G 830 mg/dL (603-1613); PROEL- TOTAL PROTEIN 6.2 g/dL (6.0-8.5)
[2021-10-10 16:26] LABS: Immunoglobulin M 26 mg/dL (15-143)
== END ==
PROVIDERS: PCP Family Medicine; Referring Provider Internal Medicine Gastroenterology; Visit Provider Internal Medicine Gastroenterology
DX: N18.9 Chronic kidney disease, unspecified (principal)
CPT/HCPCS: 36415; 80053; 82728; 82784; 83540; 83550; 84165; 85025; 85045; 86334

== ENCOUNTER → 2021-10-20 12:51 | Outpatient (CLI) | payer MEDICARE, SELFPAY ==
[2020-03-07 09:49] VITALS: BMI 41.8
[2021-10-20 13:46] LABS: Hematocrit 40.6 % (40-54); Hemoglobin 12.6 g/dL (13.0-16.5); Mean Corpuscular Hgb 30.3 pg (27.0-32.0); Mean Corpuscular Volume 97.6 fL (80-94); Mean Platelet Vol. 10.7 fl (6.2-12.0); Platelet Count 153 K/mm3 (150-450); RBC Distribution Width SD 50.2 fl (35.1-43.9); Red Blood Count 4.16 M/mm3 (4.6-6.2); White Blood Count 6.7 K/mm3 (4.4-11.0)
--- NOTE | 2021-10-20 14:05 | RAD_ITS ---
STUDY: X-RAY CHEST REASON FOR EXAM: Male, 71 years old. shortness of breath TECHNIQUE: PA and lateral views of the chest. COMPARISON: 07/22/2021 FINDINGS: The lungs are clear and expanded. There is no demonstrated pleural abnormality. Normal size heart. Normal mediastinum and simi. Normal visualized pulmonary arteries. Normal visualized aortic arch and descending thoracic aorta. Normal visualized thoracic spine. Multiple healed left rib fractures. There is no demonstrated abnormality of the visualized soft tissue structures of the upper abdomen. RAD/Chest PA and Lateral IMPRESSION: No active disease. Electronically Signed: Tima Rachel MD at 8:08 EST Tel , Service support ,
[2021-10-20 14:06] LABS: Anion Gap 8 (5-15); BUN 19 mg/dL (7-18); BUN/Creat Ratio 16.5 RATIO (10-20); Calcium,Total 8.8 mg/dL (8.5-10.1); Chloride 109 mmol/L (98-107); Creatinine, Serum 1.15 mg/dL (0.70-1.30); EST Glomerular Filtration Rate 66 mL/min (>60); Est Glom Filt Rate - Afr Amer 80 mL/min (>60); Glucose 141 mg/dL (74-106); Potassium 4.2 mmol/L (3.5-5.1); Sodium Level 143 mmol/L (136-145)
[2021-10-20 14:08] LABS: BNP,B-Type NATRIURETIC PEPTIDE 1170.3 pg/mL (0-100)
== END ==
PROVIDERS: PCP Family Medicine; Visit Provider Nurse Practitioner Gerontology
DX: I25.5 Ischemic cardiomyopathy (principal); I50.22 Chronic systolic (congestive) heart failure; N18.9 Chronic kidney disease, unspecified; R06.01 Orthopnea; R60.9 Edema, unspecified; R63.5 Abnormal weight gain; R06.02 Shortness of breath
CPT/HCPCS: 36415; 71046; 80048; 83880; 85027

== ENCOUNTER → 2021-10-27 06:35 | Outpatient (CLI) | payer MEDICARE, SELFPAY ==
[2020-03-07 09:49] VITALS: BMI 41.8
[2021-10-27 07:59] LABS: Anion Gap 7 (5-15); BUN 24 mg/dL (7-18); BUN/Creat Ratio 16.8 RATIO (10-20); Calcium,Total 8.5 mg/dL (8.5-10.1); Chloride 107 mmol/L (98-107); Creatinine, Serum 1.43 mg/dL (0.70-1.30); EST Glomerular Filtration Rate 52 mL/min (>60); Est Glom Filt Rate - Afr Amer 62 mL/min (>60); Glucose 109 mg/dL (74-106); Potassium 4.1 mmol/L (3.5-5.1); Sodium Level 143 mmol/L (136-145)
== END ==
PROVIDERS: PCP Family Medicine; Referring Provider Nurse Practitioner Gerontology; Visit Provider Nurse Practitioner Gerontology
DX: I50.22 Chronic systolic (congestive) heart failure (principal)
CPT/HCPCS: 36415; 80048

== ENCOUNTER 2021-11-03 13:41 | Outpatient (CLI) | payer MEDICARE, SELFPAY ==
[2020-03-07 09:49] VITALS: BMI 41.8
[2021-11-03 14:34] LABS: Anion Gap 6 (5-15); BUN 26 mg/dL (7-18); BUN/Creat Ratio 16.2 RATIO (10-20); Calcium,Total 8.9 mg/dL (8.5-10.1); Chloride 104 mmol/L (98-107); EST Glomerular Filtration Rate 45 mL/min (>60); Est Glom Filt Rate - Afr Amer 55 mL/min (>60); Glucose 76 mg/dL (74-106); Potassium 4.3 mmol/L (3.5-5.1); Sodium Level 142 mmol/L (136-145)
[2021-11-03 15:30] LABS: Protein, Urine (Random) 6.5 mg/dL (<11.9); Protein:Creat Ratio 93 mg/g CRE (0-200)
== END 2021-11-03 23:59 | disposition short-term general hospital (02) ==
LOC: LAB 13:44
PROVIDERS: PCP Family Medicine; Referring Provider Internal Medicine Nephrology; Visit Provider Internal Medicine Nephrology
DX: N18.32 Chronic kidney disease, stage 3b (principal)
CPT/HCPCS: 36415; 80048; 82570; 84156

== ENCOUNTER 2021-12-01 06:15 | Outpatient (CLI) | payer MEDICARE, SELFPAY ==
[2020-03-07 09:49] VITALS: BMI 41.8
[2021-12-01 07:34] LABS: AST(SGOT) 18 U/L (15-37); Alanine Aminotransfer ALT/SGPT 30 U/L (16-61); Albumin, Serum 3.7 g/dL (3.2-5.0); Alkaline Phosphatase 118 U/L (45-117); Bilirubin, Direct 0.15 mg/dL (0.00-0.30); Cholesterol 136 mg/dL (200); Globulin 3.7 g/dL (2.2-4.2); High Density Lipoprotein 47 mg/dL; Protein, Total 7.4 g/dL (6.4-8.2); Triglycerides 172 mg/dL; Very Low Density Lipoprotein 34 mg/dL (5-40)
== END 2021-12-01 23:59 | disposition short-term general hospital (02) ==
LOC: LAB 06:17
PROVIDERS: PCP Family Medicine; Referring Provider Internal Medicine Cardiovascular Disease; Visit Provider Internal Medicine Cardiovascular Disease
DX: E78.5 Hyperlipidemia, unspecified (principal); I25.10 Atherosclerotic heart disease of native coronary artery without angina pectoris
CPT/HCPCS: 36415; 80061; 80076

== ENCOUNTER → 2022-05-27 | Outpatient (CLI) | payer MEDICARE, SELFPAY ==
[2020-03-07 09:49] VITALS: BMI 41.8
[2022-05-27 07:50] LABS: AST(SGOT) 22 U/L (15-37); Alanine Aminotransfer ALT/SGPT 38 U/L (16-61); Albumin, Serum 3.7 g/dL (3.2-5.0); Alkaline Phosphatase 106 U/L (45-117); Bilirubin, Direct 0.19 mg/dL (0.00-0.30); Cholesterol 121 mg/dL (200); Globulin 3.6 g/dL (2.2-4.2); High Density Lipoprotein 38 mg/dL; Protein, Total 7.3 g/dL (6.4-8.2); Triglycerides 156 mg/dL; Very Low Density Lipoprotein 31 mg/dL (5-40)
== END | disposition home or self-care (01) ==
LOC: LAB 06:33
PROVIDERS: PCP Family Medicine; Referring Provider Internal Medicine Cardiovascular Disease; Visit Provider Internal Medicine Cardiovascular Disease
DX: E78.5 Hyperlipidemia, unspecified (principal)
CPT/HCPCS: 36415; 80061; 80076

== ENCOUNTER → 2022-07-07 | Outpatient (CLI) | payer MEDICARE, SELFPAY ==
[2020-03-07 09:49] VITALS: BMI 41.8
--- NOTE | 2022-07-07 18:39 | STRESSREP ---
Stress Test Report Pharmacologic myocardial perfusion stress test. 72-year-old man with a history of previous LAD stents. Stress protocol: Resting EKG demonstrates sinus bradycardia with a rate of 59 bpm normal intervals are noted resting blood pressures 142/64 mmHg. 0.4 mg of regadenoson was infused per usual protocol followed by rapid intravenous saline flush injection continuous EKG monitoring was performed. The maximum heart rate attained was 81 bpm which was 55% of max impacted heart rate the maximum workload was 1 metabolic equivalent. At rest there were no ST or T wave changes noted to suggest abnormal flow reserve and at peak infusion nonspecific ST changes were noted with did not meet the criteria for ischemia. No clinical angina was noted. The final blood pressure was 140/70 mmHg. Myocardial perfusion protocol. 15.0 mCi of technetium 99m sestamibi was injected at rest. 0.4 mg of regadenoson was infused per usual protocol. At peak infusion 45.0 mCi of technetium 99m sestamibi was injected stress images were obtained stress and rest images were reconstructed in comparing the short axis vertical long and horizontal long axis. Gated images were also obtained. Perfusion SPECT analysis: Review of the stress images demonstrate a mildly dilated cardiac silhouette size. There is a medium size perfusion defect noted in the anterior wall extending to the apex on the stress images. The lateral wall and inferior wall and septum appear to be fairly well perfused. The resting images demonstrate moderate improvement in the anterior wall suggesting moderate amount of anterior ischemia in the medium size zone. Gated SPECT analysis: The gated ejection fraction is 42%. Conclusion: Abnormal pharmacologic myocardial perfusion stress test with evidence of mid to distal anterior ischemia. Reduced ejection fraction.
== END | disposition home or self-care (01) ==
LOC: CVS 06:22
PROVIDERS: PCP Family Medicine; Referring Provider Internal Medicine Cardiovascular Disease; Visit Provider Internal Medicine Cardiovascular Disease
DX: R07.9 Chest pain, unspecified (principal); Z95.5 Presence of coronary angioplasty implant and graft
CPT/HCPCS: 78452; 93017; A9500; A4216; J2785

== ENCOUNTER 2022-07-13 09:01 | Day surgery (SDC) | payer MEDICARE, SELFPAY ==
[2020-03-07 09:49] VITALS: BMI 41.8
--- NOTE | 2022-07-09 12:08 | RAD_ITS ---
STUDY: X-RAY CHEST REASON FOR EXAM: Male, 72 years old patient with cardiac catheterization. TECHNIQUE: PA and lateral views of the chest. COMPARISON: 10/20/2021. FINDINGS: The lungs are clear and expanded. There is no demonstrated pleural abnormality. Normal size heart. Normal mediastinum and simi. There is prominence of the pulmonary hilar arteries without peripheral pulmonary vascular congestion, suggesting pulmonary hypertension. There is atherosclerotic calcification of the aortic arch with tortuosity. There are diffuse degenerative changes of the visualized thoracic spine. There appears to be left-sided acromioclavicular joint separation. There is deformity of several left-sided ribs probably secondary to old rib fractures. There is no demonstrated abnormality of the visualized soft tissue structures of the upper abdomen. RAD/Chest PA and Lateral IMPRESSION: No radiographic evidence of acute cardiopulmonary disease. Electronically Signed: Shannan Baldwin MD at 6:07 EDT ,
[2022-07-09 12:28] LABS: Absolute Lymphocyte Count 1.32 X10^3/uL (0.83-4.51); Absolute Neutrophil Count 4.2 X10^3/uL (2.0-7.7); Basophil# 0.02 X10^3/uL; Basophil% 0.3 % (0-1); Eosinophil# 0.27 X10^3/uL; Eosinophils% 4.3 % (0-5); Hematocrit 45.1 % (40-54); Hemoglobin 14.7 g/dL (13.0-16.5); Lymphocyte # 1.32 X10^3/ul (0.83-4.51); Mean Corp Hgb Conc 32.6 g/dL (32-36); Mean Corpuscular Hgb 31.3 pg (27.0-32.0); Mean Platelet Vol. 10.9 fl (6.2-12.0); Monocyte# 0.48 X10^3/uL; Monocyte% 7.6 % (0-10); NRBC Flagged by Analyzer 0 % (0-5); Neutrophil # 4.17 X10^3/uL (2.7-7.7); Neutrophil % 66.5 % (47-70); Platelet Count 142 K/mm3 (150-450); RBC Distribution Width CV 13.1 % (11.6-14.6); RBC Distribution Width SD 46.5 fl (35.1-43.9); White Blood Count 6.3 K/mm3 (4.4-11.0)
[2022-07-09 12:57] LABS: Anion Gap 8 (5-15); BUN 22 mg/dL (7-18); BUN/Creat Ratio 13.5 RATIO (10-20); Calcium,Total 8.9 mg/dL (8.5-10.1); Chloride 104 mmol/L (98-107); Creatinine, Serum 1.63 mg/dL (0.70-1.30); EST Glomerular Filtration Rate 44 mL/min (>60); Est Glom Filt Rate - Afr Amer 54 mL/min (>60); Glucose 231 mg/dL (74-106); Potassium 4.7 mmol/L (3.5-5.1); Sodium Level 142 mmol/L (136-145)
[2022-07-10 08:46] VITALS: BMI 41.3
--- NOTE | 2022-07-13 10:40 | CL.D_ITS ---
Patient Name: LUIS DEE Study Date: 07/13/2022 Performing: Sabas Bae MD Ht: 69 inches 175.26 cm : 1950 Wt: 280.01 lbs 127.01 kg Age: 72 Gender: male BSA: 2.38 PROCEDURE(S) PERFORMED DC01-(80139)LHC/COR/LV CLINICAL PROFILE AND INDICATIONS Indications: Suspected CAD Heart Failure: None Stress/Imaging Date: 07/07/22Stress Test with SPECT MPI: Positive Intermediate Risk CAD Presentations: Stable angina. CONCLUSIONS Severe wales coronary artery disease with previously stented proximal and mid LAD patent, stented circumflex artery and first obtuse marginal branch patent, circumflex proximal and mid right coronary artery patent. Diffuse distal disease. Mild aortic stenosis. Left ventricular systolic dysfunction unchanged from previous. Moderate RECOMMENDATIONS Medical therapy DESCRIPTION OF PROCEDURE The patient arrived to the procedure lab. The risks and benefits of the procedure as well as a full description of our services here and current unavailability of surgical backup were fully explained to the patient and/or their significant other prior to the catheterization. The Timeout was completed, verifying the correct patient and procedure. The patient's procedural site was prepped and draped in the usual fashion. Local anesthetic was given subcutaneously to right radial region with Lidocaine 2%. Using a modified Seldinger technique, arterial access was obtained via the right radial artery, a 6Fr sheath was inserted. Left Coronary Artery selective angiography was performed in multiple views using a 5 Fr. 4.0 Hughes catheter. Right Coronary Artery selective angiography was then performed in multiple views using a 5 Fr. 4.0 Hughes catheter. Left Ventriculography was performed in GAN projection using a 5 Fr. Pigtail catheter. LV to AO pullback pressures were then recorded.The arterial sheath was pulled and a TR Band was applied for hemostasis. 9cc of air CORONARY ANGIOGRAPHY DOMINANCE: Right Dominant LEFT HEART ASSESSMENT Left Ventricular Ejection Fraction: by LV Gram 37 % Abnormal LV wall motion. Anterior Hypokinesis - Moderate Depressed Left Ventricular systolic function LEFT MAIN: Angiographically normal LEFT ANTERIOR DESCENDING ARTERY: PROX LAD: Previously placed stent is patent MID LAD: Previously placed stent is patent DIAGONAL 1: Proximal - Diffusely diseased up to 70 % DIAGONAL 2: Proximal - Diffusely diseased up to 80 % CIRCUMFLEX ARTERY: Mild luminal irregularities MID CIRC: Previously placed stent is patent OM 1: Proximal - Previously placed stent is patent RIGHT CORONARY ARTERY: PROX RCA: Previously placed stent is patent MID RCA: Previously placed stent is patent DISTAL RCA: Moderate luminal irregularities up to 50% VALVE FINDINGS: Aortic Valve Stenosis - mild COMPLICATIONS No Complications PROCEDURE MEDICATIONS Fentanyl 50 mcg IV Versed 1 mg IV Oxygen: 2 L/min via nasal cannula Heparin given IA 07/13/2022 10:17:04 Verapamil 2.5mg, Ntg 100mcgs, 3000 units of Heparin given IA 07/13/2022 10:17:04 SUMMARY OF HEMODYNAMIC DATA Time AIR REST ECG 09:48:43 AO 115/62 (84) SA 10:18:40 LV 133/2, 6 10:25:18 LV 134/4, 10 10:25:24 LV 79/7, 11 10:26:02 LVp 136/2, 17 10:26:08 AOp 113/52 (76) 10:26:13 10:37:55 Signed By Sabas Bae MD On 07/13/2022 10:39:35 Sabas Bae MD
--- NOTE | 2022-07-13 12:03 | HP.PCM_ITS ---
History and Physical Date of Admission: 07/13/22 72-year-old male who presents to the manager cardiac cath today for a left heart catheterization. He has a history of coronary artery disease status post non-ST elevation myocardial infarction in January 2019. At that time he had 2 drug- eluting stents placed to the right coronary artery. In April 2019 he presented and underwent 2 drug-eluting stents placed to the circumflex artery as well as the obtuse marginal branch and the left anterior descending artery. A year later in December 2019 he had a drug-eluting stent placed to the proximal LAD, drug-eluting stent with in-stent stenosis to the right coronary artery and balloon angioplasty to the obtuse marginal branch as well as the first diagonal vessel. He also has a history of hypertension, hyperlipidemia, obstructive sleep apnea, anemia, and mild to moderate aortic stenosis. He presented to the hospital with chest discomfort in April of 2021 with heart failure with reduced ejection fraction. His echocardiogram demonstrated an ejection fraction of 45% with apical hypokinesis biatrial enlargement and aortic valve area of 1.6 cm?. His troponins were elevated and therefore he underwent a repeat cardiac catheterization which demonstrated patency of his stents in the LAD, circumflex artery, and right coronary artery. His Plavix was discontinued due to anemia. He does not have bleeding issues; he was evaluated by the supervisor varnish and no evidence of hemolytic anemia was noted. An EGD was performed in July 2021 which demonstrated no evidence of active bleeding his hemoglobin was stable. During his last office visit in October 2021 his BNP was elevated at over 1100 and his torsemide was restarted. He does follow with a company pilot. From a cardiac standpoint, the patient is doing well. He denies any palpitations. He states that he has had episodes of chest pain-located midsternal. He states that he was lying down when this occurred-he states that he sat up, belched and the chest pain was relieved. He states that he also had an episode of chest pressure after walking out of the restroom which lasted for a few minutes. His son states that he did look very pale. He denies any other symptoms. He denies SOB, Orthopnea, and PND. He does not have bleeding issues; no blood in urine, stool or nosebleeds. He denies any decrease in energy level, myalgias, or claudication. He does not have edema, or sudden weight gain. He denies dizziness, lightheadedness, syncopal or near syncopal episodes, and headaches. To assess symptoms further, he underwent a stress test on 07/07/2022 that was considered to be abnormal with mild to distal anterior ischemia. He presents today for heart catheterization. 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 Required: No Accompanied by: Son Is patient in pain?: No Allergies metformin Adverse Reaction (Verified 06/08/22 10:26) Elevated LDH and anion gap Medications See EMR Ejection fraction %: 45 to 49 [facility] Medical History (Updated 06/08/22 @ 10:55 by Stephenie Bridges NP, DIRECTOR [employer]) Abdominal pain Atherosclerosis of coronary artery without angina pectoris Bilateral lower extremity edema Chest pain Chronic HFrEF (heart failure with reduced ejection fraction) Chronic kidney disease Chronic kidney disease (CKD) COPD (chronic obstructive pulmonary disease) Dermatitis Diastolic dysfunction Elevated liver enzymes Essential (primary) hypertension Fatty liver Former smoker Gastric ulcer GI (gastrointestinal bleed) Gout History of non-ST elevation myocardial infarction (NSTEMI) (05/05/21) History of stress test Hyperlipidemia Ischemic cardiomyopathy Kidney stones Non-rheumatic aortic stenosis Obesity Obstructive sleep apnea Osteoarthritis Secondary pulmonary arterial hypertension Type 2 diabetes mellitus Surgical History History of appendectomy History of coronary artery stent placement (01/24/20) History of esophagogastroduodenoscopy (EGD) History of herniorrhaphy History of left heart catheterization (05/06/21) History of tonsillectomy History of total knee replacement (TKR) Family History Mother , Age 80 Diabetes Hypertension Father , Age 55, coma Diabetes Hypertension Sister Hypertension Brother Diabetes Hypertension Cancer, Onset Age: 50 prostate cancer CAD (coronary artery disease) Social History household members: children Smoking Status: Former smoker quit date: 01/31/11 alcohol intake: current alcohol intake frequency: holidays/special occasions only substance use type: does not use caffeine: Yes Type: coffee ROS Const Const: Negative for fatigue, weakness, headache(s), frequent falls, difficulty sleeping or excessive sweating Eyes Eyes: Negative for loss of peripheral vision, transient loss of vision, blurry vision, double vision or tunnel vision ENT ENT: Negative for headache(s), dizziness, Nosebleed/epistaxis or balance problems Cardio Chest Pain: Yes (Feels different than previous heart attacks) Frequency: other (Just a couple of episode) Character: other (pressure) Onset: at rest and exercise Location: mid sternal Duration: minutes and brief Relieving: activity and other (nitroglycerin) Palpitations: No Edema: None Muscle aches with walking: None Resp Respiratory: Negative for SOB with activity, SOB at rest, SOB orthopnea\SOB lying down, Cough or paroxysmal nocturnal dyspnea GI GI: Negative nausea, vomiting, heartburn or black,tarry stools : Negative for hematuria Musc Musc: Negative for muscle aches/ myalgia, muscle weakness, joint pain or balance problems Skin Skin: Negative non-healing lesions, rash or unusual bruising Neuro Neuro: Negative for dizziness, lightheadedness, near syncope, syncope, frequent falls, headache(s), weakness, blurry vision, double vision or lack of coordination Gil Hematologic/Lymphatic: Negative for easy bleeding or easy bruising Endo Endo: Negative for fatigue, excessive sweating or increased thirst/drinking Psych Psych: Negative for anxiety or depression Allergy Allergy/Immunology: Negative for hives and Negative for rash Cardiology Exam Const Appearance: cooperative, healthy appearing, no acute distress, well developed and well groomed Nutritional Appearance: well nourished and obese Orientation: alert, awake and oriented x3 Head Head: normal to inspection, normocephalic and atraumatic Ears: hearing grossly normal bilaterally and external ears normal Nose: external nose normal, nares normal, nasal mucous membranes and turbinates normal, septum normal and no nasal discharge Face and Sinus: face symmetric Mouth: oral mucosae normal, tongue normal, oropharynx normal and moist mucous membranes Teeth and gingiva: dentition normal Throat: posterior oropharynx normal, tonsils normal and uvula midline Eyes General: appearance normal, both eyes and all related structures Eyelids: eyelids normal Conjunctivae: conjunctivae normal Pupils: PERRL, normal by confrontation and accommodation normal EOM: EOM intact bilaterally Neck Neck: normal visual inspection, trachea midline and no JVD JVD: +5 Carotids: normal carotid upstroke and bounding pulses Chest Chest inspection: normal inspection of the chest, symmetric chest movement and normal respiratory effort Auscultation: Bilateral: Clear to Auscultation Cardio Palpation: normal PMI Rate: regular rate Rhythm: regular rhythm Heart sounds: S1 normal, S2 normal, murmur and normal, physiologic split S2; Negative rub or gallop Murmur: Grade 2/6, early systolic and LLSB GI GI: normal to inspection, soft, no hepatosplenomegaly, bowel sounds present and obese Neuro General: patient alert, patient awake, patient oriented x3, gait normal, moves all extremities and no focal sensory deficit Skin Skin: no rashes or lesions noted Extremities Pulses: Normal: Right Femoral Pulse, Left Femoral Pulse, Right Dorsalis Pedis Pulse, Left Dorsalis Pedis Pulse, Right Posterior Tibial Pulse, Left Posterior Tibial Pulse, Right Radial Pulse and Left Radial Pulse Lower Extremity Edema: None: Bilateral Musculoskel Musculoskeletal: No joint tenderness Psych Psychological: normal affect Supplemental Info Echocardiogram 04/2021: Normal LV size. Left ventricular systolic function is normal. The estimated ejection fraction is 45 %. [place] : Hypokinetic. Mild aortic stenosis. Moderate focal aortic valve calcification. Calculated aortic valve area (continuity equation) is 1.6 cm2. Contrast injection was performed. Compared to previous study, the left ventricular systolic function is the same.. Echocardiogram 03/2020: Normal LV size. Mild concentric left ventricular hypertrophy. Left ventricular systolic function is lower limits of normal. The estimated ejection fraction is 53 %. Stage 1 diastolic dysfunction. Mean aortic valve gradient 20 mmHg. Mild to moderate aortic stenosis. Calculated aortic valve area (continuity equation) is 1.6 cm2. Contrast injection was performed. Compared to prior study, there is no significant change. Stress test from 07/07/2022: Conclusion: Abnormal pharmacologic myocardial perfusion stress test with evidence of mid to distal anterior ischemia. Reduced ejection fraction. Stress Test 02/07/2021: Conclusion: Pharmacologic myocardial perfusion stress test with no evidence of ischemia. Mild cardiomyopathy present. Previous small anterior septal/apical infarct cannot be completely excluded. Cardiac catheterization 05/06/2021: CONCLUSIONS Previously placed stents in the LAD, left circumflex artery, right coronary artery are patent with no high-grade stenosis noted. The aortic valve is mildly calcified and mildly stenotic with mild left ventricular systolic dysfunction. RECOMMENDATIONS Medical therapy CORONARY ANGIOGRAPHY DOMINANCE: Right Dominant LEFT HEART ASSESSMENT Left Ventricular Ejection Fraction: by Echo 45 % Normal LV wall motion Depressed Left Ventricular systolic function LEFT MAIN: Mild calcification, Non-obstructive LEFT ANTERIOR DESCENDING ARTERY: PROX LAD: Previously placed stent is patent MID LAD: Previously placed stent is patent DISTAL LAD: Moderate luminal irregularities up to 50% CIRCUMFLEX ARTERY: MID CIRC: Previously placed stent is patent RIGHT CORONARY ARTERY: PROX RCA: Previously placed stent has an instent 30 % restenosis MID RCA: Previously placed stent is patent DISTAL RCA: Previously placed stent is patent RT PLV: 50 % Stenosis VALVE FINDINGS: Aortic Valve Calcification - mild Stress test 12/2019: Abnormal pharmacologic myocardial perfusion stress test with evidence of multi-territory ischemia involving the anterior and the inferior wall. CORONARY ANGIOGRAPHY 12/2019: DOMINANCE: Right Dominant LEFT HEART ASSESSMENT Left Ventricular Ejection Fraction: by Echo 55 % Normal LV wall motion Normal Left Ventricular systolic function LEFT MAIN: Angiographically normal LEFT ANTERIOR DESCENDING ARTERY: PROX LAD: 95 % Stenosis, Instent restenosis 80 % DIAGONAL 1: Proximal - Moderate luminal irregularities up to 50% CIRCUMFLEX ARTERY: MID CIRC: Previously placed stent is patent RIGHT CORONARY ARTERY: MID RCA: Previously placed stent has an instent 90 % restenosis VALVE FINDINGS: Aortic Valve Calcification - moderate PCI 12/2019: Successful PTCA/TAMIA of mid RCA ISR with IVUS guidance, utilizing a 3.0 x 10 [place] cutting balloon, followed by a 3.0 x 24 Promus Synergy, post dilatd with a 3.0 and 3.5 NC balloon; 85%-->0%, no dissection. Successful PTCA/TAMIA proximal LAD with IVUS guidance and utilizing a 2.5 x 10 [place] cutting balloon, followed with a 2.5 x 24 Promus Syergy, post dilated proximally with a 3.0 x 8 NC balloon; 85%-->0%, no dissection or encroachment on ostial DIAG. Passage of 2.0 x 12 balloon down LCX showed no stent protrusion into LCX. Successful PCI with PTCA to the ostial DIAG with a 2.0 x 12 balloon; 85%-->50%, no dissection. Successful PCI with PTCA to the ostial OM ISR with a 2.0 x 12 balloon; 85%-->50%, no dissection. PCI 04/2019: Successful PTCA/TAMIA to proximal/ostial OM#2 with a 2.25 x 20 Promus Synergy stent after FFR of OM#2 was 0.71; 85%-->0%, no dissection. Bifurcation was ballooned prior to stent depolyment. Successful PTCA/TAMIA mid LCX with a 2.25 x 20 Promus Synergy, followed immediately upstream with a 2.25 x 16 Promus, post dilated proximally with a 2.5 x 8 NC baloon; 75%-->0%, no dissection and no evidence of ostial OM disease post stenting. Successful PTCA/TAMIA proximal LAD with a 2.25 x 24 Promus Synergy, followed immediately downstream with a 2.25 x 12 Promus Synergy; post dilated in proximal 3/4 of the stents with a 2.5 x 8 NC Balloon; 85%-->0%, no dissection. No encroachment on ostium of moderate sized diag#1, so no additional PCI performed on ostial DIAG. PCI 01/2019: Segmented LV systolic dysfunction- Moderate Triple vessel CAD of the RCA, LAD, AND LCX The patient has pulmonary hypertension which is mild. Right heart pressures - mildly elevated Successful PTCA/TAMIA of proximal RPL branch using a 2.25 x 12 Promus Synergy; 75%-->0%, no dissection. Successful PTCA/TAMIA distal RCA with a 2.5 x 16 Promus Synergy, post dilated with a 3.0 x 8 NC Balloon; 75%-->0%, no dissection. Successful PTCA/TAMIA mid RCA with a 2.5 x 32 Promus Synergy, post dilated throughout with a 3.0, 3.5 and 3.75 NC Balloon; 85%-->0%, no dissection. Laboratory Tests 12/01/21 06:19 Triglycerides 172 Cholesterol 136 LDL Cholesterol 55 HDL Cholesterol 47 Laboratory Tests 10/20/21 11/03/21 13:00 13:53 Potassium 4.3 BUN 26 H Creatinine 1.60 H Est GFR (MDRD) Non-Af 45 L B-Natriuretic Peptide 1170.3 H Labs: LDL Cholesterol 52 mg/dL (0-130) HDL Cholesterol 38 mg/dL (40-) L Triglycerides 156 mg/dL (-199) VLDL Cholesterol 31 mg/dL (5-40) Diagnostics: Chest X-Ray Pulmonary: No Data to Display Assessment and Plan Assessment and Plan (1) Chest pain: Status: Acute Plan: Patient has complaints of chest pain with exertion and at rest. His stress test on 07/07/2022 was considered to be abnormal. He will proceed with heart catheterization to assess further. (2) History of coronary artery stent placement: Status: Resolved Comment: [id number]-UAI-Gele RPLB w/ 2.25 x 12 mm Promus Synergy Stent, TAMIA-Distal RCA w/ 2.5 x 16 mm Promus Synergy Stent, and TAMIA-Mid RCA w/ 2.5 x 32 mm Promus Synergy Stent 02/27/19; PCI-TAMIA to proxl/ostial OM2 w/ 2.25 x 20 mm Promus Synergy stent, PCI- TAMIA mid LCX w/ 2.25 x 20 mm Promus Synergy and 2.25 x 16 mm Promus, PCI-TAMIA proximal LAD w/ 2.25 x 24 mm Promus Synergy and 2.25 x 12 mm Promus Synergy on 04/19/2019; TAMIA-Mid RCA ISR w/ 3.0 x 24 mm Promus Synergy Stent, TAMIA-Prox LAD w/ 2.5 x 24 mm Promus Synergy Stent, POBA-Ostial OM2 ISR and Ostial D1 01/24/2020 Plan: Patient has a history of coronary artery disease with stent placement in 2018, in 2019. He does have complaints of chest pain with exertion and at rest. He will proceed with heart catheterization. (3) Non-rheumatic aortic stenosis: Status: Chronic Plan: Patient has a history of nonrheumatic aortic valve stenosis. His most recent echocardiogram from 04/2021 demonstrated mild aortic valve stenosis. He appears stable at this time. We will continue to monitor this with history, exam, and echocardiograms as deemed appropriate. (4) Ischemic cardiomyopathy: Status: Chronic Plan: Patient has a history of ischemic cardiomyopathy. His most recent echocardiogram from 04/2021 demonstrated an estimated ejection fraction of 45%, and [place] : Hypokinetic. He appears stable at this time, and denies any recent symptoms or events. He will continue carvedilol 12.5mg twice daily, and torsemide 20mg daily. He will continue to monitor for any concerning symptoms. (5) Essential (primary) hypertension: Status: Chronic Plan: Patient has a history of hypertension. His blood pressure is well controlled at this time. He will continue with his current medical therapy, along with monitoring his blood pressures at home. He will notify our office of any persistently high or low blood pressure readings. (6) Chronic HFrEF (heart failure with reduced ejection fraction): Status: Chronic Plan: Patient has a history of chronic heart failure with reduced ejection fraction. His most recent echocardiogram from 04/16/2021 demonstrated an estimated ejection fraction of 45%. He appears stable at this time, and denies any recent symptoms or events. He will continue with his current medical therapy, along with monitoring for any concerning symptoms. (7) Hyperlipidemia: Status: Chronic Plan: Patient has a history of hyperlipidemia. His most recent lipid panel from 05/27/2022: cholesterol 121, HDL 38, LD 52, triglycerides 156. He will continue atorvastatin 80mg daily, along with aggressive risk factor and lifestyle modifications.
== END 2022-07-13 12:10 | disposition home or self-care (01) ==
LOC: CLSP 09:04
PROVIDERS: Nurse Practitioner Gerontology; PCP Family Medicine; Referring Provider Internal Medicine Cardiovascular Disease; Visit Provider Internal Medicine Cardiovascular Disease
DX: I25.119 Atherosclerotic heart disease of native coronary artery with unspecified angina pectoris (principal); J44.9 Chronic obstructive pulmonary disease, unspecified; I13.0 Hypertensive heart and chronic kidney disease with heart failure and stage 1 through stage 4 chronic kidney disease, or unspecified chronic kidney disease; I50.22 Chronic systolic (congestive) heart failure; I27.21 Secondary pulmonary arterial hypertension; E11.22 Type 2 diabetes mellitus with diabetic chronic kidney disease; I25.5 Ischemic cardiomyopathy; I35.0 Nonrheumatic aortic (valve) stenosis; N18.9 Chronic kidney disease, unspecified; E78.5 Hyperlipidemia, unspecified; G47.33 Obstructive sleep apnea (adult) (pediatric); E66.9 Obesity, unspecified; I25.2 Old myocardial infarction; Z79.82 Long term (current) use of aspirin; Z79.84 Long term (current) use of oral hypoglycemic drugs; Z79.899 Other long term (current) drug therapy; Z87.891 Personal history of nicotine dependence; Z95.5 Presence of coronary angioplasty implant and graft
CPT/HCPCS: 36415; 71046; 80048; 85025; 93458; 99152; 99153; Q9967; C1769; C1894

== ENCOUNTER 2022-08-06 05:26 | Day surgery (SDC) | payer MEDICARE, SELFPAY ==
[2020-03-07 09:49] VITALS: BMI 41.8
--- NOTE | 2022-08-06 | COLBX_PTH ---
PATIENT: LUIS DEE LOC: EN U#:[id number] AGE/SX: 72/M ROOM: RE08/06/[address]: Dr. Jose Maria Mcgill DO : 1950 BED: DIS: 08/06/2022 SPEC #: [id number] RECD: 08/06/22 12:47 STATUS: ANMOL REKenneth #: [id number] SIDRA: 08/06/22 00:[address]: Jose Maria Mcgill DEPT: SURGICAL PATHOLOGY RECD BY: Fili Reeves ENTERED: 08/06/22 12:47 SP TYPE: COLON BX OTHR DR: Dr. Boston Figueroa MD Tissues: A - Duodenum, NOS B - Esophageal mucous membrane C - Gastric mucous membrane D - Rectum, NOS Procedures: Special Stain Group II Surgery Specimen Level IV Alcian Blue/PAS (control) HEADER OPERATION: Colonoscopy, EGD ([facility]) PRE-OP DIAGNOSIS: GI bleed, gastric ulcer, anemia TISSUE SUBMITTED: A ? Duodenum biopsy, B ? Distal esophagus biopsy, C ? Hepatic flexure polyp, D ? Rectal polyp MICROSCOPIC DIAGNOSIS A. Duodenum, biopsy: Minimal nonspecific chronic inflammation and focal gastric metaplasia. B. Distal esophagus, biopsy: Fragment of gastric mucosa with mild chronic inflammation. No evidence of goblet cell metaplasia. See comment. C. Colonic polyp at hepatic flexure, biopsy: Hyperplastic polyp. D. Rectal polyp, biopsy: Inflammatory polyp. AM:missy 08/07/2022 COMMENT B. Alcian blue/PAS stain with matched control supports the above diagnosis. MICROSCOPIC DESCRIPTION Slides are reviewed. GROSS DESCRIPTION A - Received in fixative is one container labeled with the patient's name and designated duodenum biopsy. The specimen consists of two irregular fragments of light crabtree soft tissue that in aggregate measure 0.6 x 0.5 x 0.1 cm. The specimen is totally submitted in one cassette. B - Received in fixative is one container labeled with the patient's name and designated distal esophagus biopsy. The specimen consists of one irregular fragment of light crabtree soft tissue that measures 0.3 x 0.3 x 0.1 cm. The specimen is totally submitted in one cassette. C - Received in fixative is one container labeled with the patient's name and designated hepatic flexure polyp. The specimen consists of one irregular fragment of light crabtree soft tissue that measures 0.3 x 0.2 x 0.1 cm. The specimen is totally submitted in one cassette. D - Received in fixative is one container labeled with the patient's name and designated rectal polyp. The specimen consists of a fragment of polyp measuring 0.4 x 0.3 x 0.2 cm. Multiple fragments of fecal material are also noted. The specimen is totally submitted in one cassette. / SJ:rg 08/06/2022 TC:3 CPT: 24712 x4, 64036
[2022-08-06 06:28] VITALS: BP 142/63; PULSE 55; RESP 16; TEMP 36.5; O2SAT 93; BMI 39.2
[2022-08-06] MEDS: Lactated Ringers 1,000 ML 15 ML IV (06:34)
--- NOTE | 2022-08-06 07:04 | PCM.HP.BLA ---
History and Physical Date of Admission: 08/06/22 LUIS DEE, is a 72 M who presents to the office today for 6 month f/u hx UGIB in July 2021. He was admitted to [facility] 07/22/2021 for treatment of many issues including GI bleed with black stool, abdominal pain, nausea, vomiting and diarrhea.? He had been taking Tums for abdominal pain.? He was on aspirin for CAD. EGD was performed 07/23/2021; Dr. Mcgill found normal esophagus, 1 nonbleeding cratered gastric ulcer with no stigmata of bleeding, the lesion was 1 mm in largest dimension, and congestion in the duodenal bulb.? Biopsy from the duodenum revealed no pathologic change. He was treated with Carafate and PPI. His abdominal pain was resolved. He was referred to hematology for evaluation for possible hemolytic anemia in case this was more than iron deficiency anemia.? Dr. Calvo found no evidence for hemolytic anemia; his recommendation was that patient continue iron supplementation throughout 2021 and then discontinue it, and continue to be followed by PCP.? He continues to take iron supplement once a day, it does cause some constipation but nothing significant.? 04/01/2022 hemoglobin 14.8, iron 100, ferritin 121. He is no longer on pantoprazole.? He denies any heartburn or acid reflux.? He says he occasionally has indigestion.? He denies nausea, vomiting, hematemesis, dysphagia, abdominal pain.? He denies diarrhea.? No melena or hematochezia.? He does remain on aspirin 81 mg daily. 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 ROS Const Constitutional: No fatigue ENT ENT: No difficulty swallowing Gastro GI: Positive for constipation; No abdominal pain, belching, bloating, change in bowel habits, change in stool character, coffee ground emesis, cramping, diarrhea, heartburn, difficulty swallowing, feeling full early, excessive flatus, incontinent of stools, Vomiting blood/hematemesis, Blood in stool, loose stools, Black,tarry stools, nausea/dyspepsia, pain with swallowing, vomiting or other Musc Musculoskeletal: Positive for joint pain, back pain, stiffness and Arthritis Skin Skin: No yellowing of the eye or itchy eyes Psych Psychiatric: No anxiety and No depression Endo Endocrine: No fatigue Aller/Imm Allergy/Immunologic: No itchy eyes Gil/Lymp Hematologic/Lymphatic: No easy bleeding or easy bruising Exam Const General: cooperative, healthy appearing, no acute distress and well developed Nutritional Appearance: obese Eyes General: appearance normal, both eyes and all related structures Resp Effort & Inspection: normal respiratory effort GI Inspection: obesity Palpation: soft, no masses and nontender Quality Reporting Tobacco Screening ([facility] 138) Smoking Status: Former smoker Assessment and Plan Assessment and Plan (1) Gastric ulcer: ?Status:?Chronic ?Plan: 72-year-old male with history of upper GI bleed, gastric ulcer, iron deficiency anemia.? Hemolytic anemia was ruled out, he was followed by hematology, they recommended he remain on iron supplement for the remainder of the year.? Gastric ulcer was likely caused by NSAID which he requires for CAD history.? He discontinued PPI therapy but he should remain on it therefore we will prescribe it.? He will be scheduled for repeat EGD to ensure healing of gastric ulcer.? Screening colonoscopy will also be scheduled, he believes he is due for that.? He will have follow-up 2 weeks after endoscopy to discuss biopsy results. ? ? ? Medications: New pantoprazole 40 mg? PO DAILY 90 tabs 3RF ? ? I have re-examined the patient. There are no clinical changes since date of exam.
[2022-08-06 07:41] VITALS: BP 142/63; BP 98/50; PULSE 72; RESP 16; TEMP 36.5; O2SAT 90
--- NOTE | 2022-08-06 07:43 | OP.EGD_ITS ---
Patient Name: Ronnie Melgar Procedure Date: 08/06/2022 7:02 AM Date of : 1950 Age: 72 Procedure: Upper GI endoscopy Indications: Chronic gastric ulcer, Chronic gastric ulcer with hemorrhage Providers: Jose Maria Mcgill DO Medicines: Monitored Anesthesia Care Patient Profile: This is a 72 year old male. Refer to note in patient chart for documentation of history and physical. Patient has symptoms of chronic epigastric abdominal pain. Complications: No immediate complications. Procedure: Pre-Anesthesia Assessment: - Prior to the procedure, a History and Physical was performed, and patient medications and allergies were reviewed. The risks and benefits of the procedure and the sedation options and risks were discussed with the patient. All questions were answered and informed consent was obtained. Patient identification and proposed procedure were verified by the physician in the pre-procedure area. Mental Status Examination: alert and oriented. Airway Examination: normal oropharyngeal airway and neck mobility. Respiratory Examination: clear to auscultation. CV Examination: normal. Prophylactic Antibiotics: The patient does not require prophylactic antibiotics. Prior Anticoagulants: The patient has taken no previous anticoagulant or antiplatelet agents. ASA Grade Assessment: II - A patient with mild systemic disease. After reviewing the risks and benefits, the patient was deemed in satisfactory condition to undergo the procedure. The anesthesia plan was to use monitored anesthesia care (MAC). Immediately prior to administration of medications, the patient was re-assessed for adequacy to receive sedatives. The heart rate, respiratory rate, oxygen saturations, blood pressure, adequacy of pulmonary ventilation, and response to care were monitored throughout the procedure. The physical status of the patient was re-assessed after the procedure. After obtaining informed consent, the endoscope was passed under direct vision. Throughout the procedure, the patient's blood pressure, pulse, and oxygen saturations were monitored continuously. The pediatric colonoscope was introduced through the mouth, and advanced to the second part of duodenum. The upper GI endoscopy was accomplished without difficulty. The patient tolerated the procedure well. Scope In: 7:16:06 AM Scope Out: 7:20:27 AM Total Procedure Duration Time 0 hours 4 minutes 21 seconds Findings: The Z-line was irregular and was found 38 cm from the incisors. Biopsies were taken with a cold forceps for histology. Verification of patient identification for the specimen was done. One biopsy was obtained with cold forceps for histology in a targeted manner in the lower third of the esophagus. A small hiatal hernia was present. No other significant abnormalities were identified in a careful examination of the stomach. Localized nodular mucosa was found in the duodenal bulb. Biopsies were taken with a cold forceps for histology. Verification of patient identification for the specimen was done. Estimated blood loss was minimal. Impression: - Z-line irregular, 38 cm from the incisors. Biopsied. - Small hiatal hernia. - Nodular mucosa in the duodenal bulb. Biopsied. - One biopsy was obtained in the lower third of the esophagus. Recommendation: - Written discharge instructions were provided to the patient. - The signs and symptoms of potential delayed complications were discussed with the patient. - Patient has a contact number available for emergencies. - Return to normal activities tomorrow. - Resume previous diet. - Continue present medications. - Await pathology results. Procedure Code(s): --- Professional --- 94204, Esophagogastroduodenoscopy, flexible, transoral; with biopsy, single or multiple CPT copyright 2017 [employer]. All rights reserved. The codes documented in this report are preliminary and upon clinical coder review may be revised to meet current compliance requirements. Jose Maria Mcgill DO 08/06/2022 7:43:11 AM This report has been signed electronically. Number of Addenda: 0 Note Initiated On: 08/06/2022 7:02 AM
--- NOTE | 2022-08-06 07:44 | OP.CCLET_ITS ---
08/06/2022 [place] Figueroa MD Re : Upper GI endoscopy procedure for Ronnie Melgar Dear Dr. Figueroa This procedure was performed on August. My impressions and recommendations are as follows: Impressions : - Z-line irregular, 38 cm from the incisors. Biopsied. - Small hiatal hernia. - Nodular mucosa in the duodenal bulb. Biopsied. - One biopsy was obtained in the lower third of the esophagus. Recommendations : - Written discharge instructions were provided to the patient. - The signs and symptoms of potential delayed complications were discussed with the patient. - Patient has a contact number available for emergencies. - Return to normal activities tomorrow. - Resume previous diet. - Continue present medications. - Await pathology results. My findings are described in the full procedure note, which is enclosed. If I can be of further assistance, please feel free to contact me at . Sincerely, Jose Maria Mcgill, 08/06/2022 7:43:11 AM This report has been signed electronically.
[2022-08-06 07:46] VITALS: BP 100/44; BP 142/63; PULSE 59; RESP 16; O2SAT 91
--- NOTE | 2022-08-06 07:48 | OP.COLON_ITS ---
Patient Name: Ronnie Melgar Procedure Date: 08/06/2022 7:20 AM Date of : 1950 Age: 72 Procedure: Colonoscopy Indications: Screening for colorectal malignant neoplasm Providers: Jose Maria Mcgill DO Medicines: Monitored Anesthesia Care Patient Profile: This is a 72 year old male. Refer to note in patient chart for documentation of history and physical. Patient has symptoms of chronic epigastric abdominal pain. Last Colonoscopy: 10 years ago. Complications: No immediate complications. Procedure: Pre-Anesthesia Assessment: - Prior to the procedure, a History and Physical was performed, and patient medications and allergies were reviewed. The risks and benefits of the procedure and the sedation options and risks were discussed with the patient. All questions were answered and informed consent was obtained. Patient identification and proposed procedure were verified by the physician in the pre-procedure area. Mental Status Examination: alert and oriented. Airway Examination: normal oropharyngeal airway and neck mobility. Respiratory Examination: clear to auscultation. CV Examination: normal. Prophylactic Antibiotics: The patient does not require prophylactic antibiotics. Prior Anticoagulants: The patient has taken no previous anticoagulant or antiplatelet agents. ASA Grade Assessment: II - A patient with mild systemic disease. After reviewing the risks and benefits, the patient was deemed in satisfactory condition to undergo the procedure. The anesthesia plan was to use monitored anesthesia care (MAC). Immediately prior to administration of medications, the patient was re-assessed for adequacy to receive sedatives. The heart rate, respiratory rate, oxygen saturations, blood pressure, adequacy of pulmonary ventilation, and response to care were monitored throughout the procedure. The physical status of the patient was re-assessed after the procedure. After I obtained informed consent, the scope was passed under direct vision. Throughout the procedure, the patient's blood pressure, pulse, and oxygen saturations were monitored continuously. The pediatric colonoscope was introduced through the anus and advanced to the terminal ileum. The colonoscopy was performed without difficulty. The patient tolerated the procedure well. The quality of the bowel preparation was good. Scope In: 7:23:12 AM Scope Withdrawal Time 0 hours 11 minutes 28 seconds Scope Out: 7:37:56 AM Total Procedure Duration Time 0 hours 14 minutes 44 seconds Findings: The perianal and digital rectal examinations were normal. A 5 mm polyp was found in the rectum. The polyp was sessile. The polyp was removed with a hot snare. Resection and retrieval were complete. Verification of patient identification for the specimen was done. Estimated blood loss was minimal. An area of mildly congested mucosa was found at the hepatic flexure. Biopsies were taken with a cold forceps for histology. Verification of patient identification for the specimen was done. Estimated blood loss was minimal. Multiple small and large-mouthed diverticula were found in the recto-sigmoid colon, sigmoid colon and descending colon. Non-bleeding internal hemorrhoids were found during retroflexion. The hemorrhoids were mild and Grade I (internal hemorrhoids that do not prolapse). Impression: - One 5 mm polyp in the rectum, removed with a hot snare. Resected and retrieved. - Congested mucosa at the hepatic flexure. Biopsied. - Diverticulosis in the recto-sigmoid colon, in the sigmoid colon and in the descending colon. - Non-bleeding internal hemorrhoids. Recommendation: - Repeat colonoscopy in 5 years for surveillance. - Return to GI office. - Continue present medications. Procedure Code(s): --- Professional --- 97331, Colonoscopy, flexible; with removal of tumor(s), polyp(s), or other lesion(s) by snare technique 98001, 59, Colonoscopy, flexible; with biopsy, single or multiple CPT copyright 2017 [employer]. All rights reserved. The codes documented in this report are preliminary and upon electrotype finisher review may be revised to meet current compliance requirements. Jose Maria Mcgill DO 08/06/2022 7:48:17 AM This report has been signed electronically. Number of Addenda: 0 Note Initiated On: 08/06/2022 7:20 AM
--- NOTE | 2022-08-06 07:49 | OP.CCLET_ITS ---
08/06/2022 [place] Figueroa MD Re : Colonoscopy procedure for Ronnie Melgar Dear Dr. Figueroa This procedure was performed on August. My impressions and recommendations are as follows: Impressions : - One 5 mm polyp in the rectum, removed with a hot snare. Resected and retrieved. - Congested mucosa at the hepatic flexure. Biopsied. - Diverticulosis in the recto-sigmoid colon, in the sigmoid colon and in the descending colon. - Non-bleeding internal hemorrhoids. Recommendations : - Repeat colonoscopy in 5 years for surveillance. - Return to GI office. - Continue present medications. My findings are described in the full procedure note, which is enclosed. If I can be of further assistance, please feel free to contact me at . Sincerely, Jose Maria Mcgill, 08/06/2022 7:48:17 AM This report has been signed electronically.
[2022-08-06 07:51] VITALS: BP 104/42; BP 142/63; PULSE 58; RESP 18; O2SAT 92
[2022-08-06 07:59] VITALS: BP 107/59; BP 110/60; BP 142/63; PULSE 55; PULSE 60; RESP 16; TEMP 36.8; TEMP 36.9; O2SAT 96
[2022-08-06 08:18] VITALS: BP 142/63
[2022-08-06 09:05] LABS: Bedside Glucose 146 mg/dL (74-106)
== END 2022-08-06 08:30 | disposition home or self-care (01) ==
LOC: EN 05:27 → AC 05:28
PROVIDERS: PCP Family Medicine; Referring Provider Family Medicine; Visit Provider Internal Medicine Gastroenterology
PROC: 0DJD8ZZ Inspection of Lower Intestinal Tract, Via Natural or Artificial Opening Endoscopic (ICD-10-PCS; CPT 45378; principal; 2022-08-06 06:55)
DX: Z12.11 Encounter for screening for malignant neoplasm of colon (principal); J44.9 Chronic obstructive pulmonary disease, unspecified; I50.22 Chronic systolic (congestive) heart failure; I11.0 Hypertensive heart disease with heart failure; K64.0 First degree hemorrhoids; K57.30 Diverticulosis of large intestine without perforation or abscess without bleeding; K63.5 Polyp of colon; K62.1 Rectal polyp; K44.9 Diaphragmatic hernia without obstruction or gangrene; K25.4 Chronic or unspecified gastric ulcer with hemorrhage; K31.A0 Gastric intestinal metaplasia, unspecified; I25.5 Ischemic cardiomyopathy; I25.10 Atherosclerotic heart disease of native coronary artery without angina pectoris; I35.0 Nonrheumatic aortic (valve) stenosis; I25.2 Old myocardial infarction; E78.5 Hyperlipidemia, unspecified; E66.9 Obesity, unspecified; Z68.39 Body mass index [BMI] 39.0-39.9, adult; Z95.5 Presence of coronary angioplasty implant and graft; Z90.49 Acquired absence of other specified parts of digestive tract; Z79.82 Long term (current) use of aspirin; Z79.899 Other long term (current) drug therapy; Z87.891 Personal history of nicotine dependence
CPT/HCPCS: 45380; 45385; 43239; 82962; 88305; 88313; J7120; J2405

== ENCOUNTER → 2022-11-03 | Outpatient (CLI) | payer MEDICARE, SELFPAY ==
[2020-03-07 09:49] VITALS: BMI 41.8
[2022-11-03 12:25] LABS: Hematocrit 49.3 % (40-54); Hemoglobin 16.1 g/dL (13.0-16.5); Mean Corp Hgb Conc 32.7 g/dL (32-36); Mean Corpuscular Hgb 31.9 pg (27.0-32.0); Mean Corpuscular Volume 97.6 fL (80-94); Mean Platelet Vol. 10.8 fl (6.2-12.0); Platelet Count 160 K/mm3 (150-450); RBC Distribution Width CV 13.7 % (11.6-14.6); RBC Distribution Width SD 49.3 fl (35.1-43.9); Red Blood Count 5.05 M/mm3 (4.6-6.2); White Blood Count 6.7 K/mm3 (4.4-11.0)
[2022-11-03 12:51] LABS: PTHIN 225.9 pg/mL (18.4-80.1)
[2022-11-03 13:00] LABS: Vitamin D,25 Hydroxy 34.9 ng/mL
[2022-11-03 13:04] LABS: Protein, Urine (Random) 6.8 mg/dL (<11.9); Protein:Creat Ratio 85 mg/g CRE (0-200)
[2022-11-03 13:14] LABS: Albumin, Serum 3.9 g/dL (3.2-5.0); BUN 31 mg/dL (7-18); BUN/Creat Ratio 17.4 RATIO (10-20); Calcium,Total 9.2 mg/dL (8.5-10.1); Chloride 104 mmol/L (98-107); Creatinine, Serum 1.78 mg/dL (0.70-1.30); EST Glomerular Filtration Rate 40 mL/min (>60); Est Glom Filt Rate - Afr Amer 48 mL/min (>60); Glucose 113 mg/dL (74-106); Phosphorus 3.8 mg/dL (2.5-4.9); Potassium 4.3 mmol/L (3.5-5.1); Sodium Level 141 mmol/L (136-145)
== END | disposition home or self-care (01) ==
LOC: LAB 11:39
PROVIDERS: PCP Family Medicine; Referring Provider Nurse Practitioner Adult Health; Visit Provider Nurse Practitioner Adult Health
DX: N18.32 Chronic kidney disease, stage 3b (principal)
CPT/HCPCS: 36415; 80069; 82306; 82570; 83970; 84156; 85027

== ENCOUNTER → 2022-11-16 | Outpatient (CLI) | payer MEDICARE, SELFPAY ==
[2020-03-07 09:49] VITALS: BMI 41.8
--- NOTE | 2022-11-16 10:47 | ECHOD_ITS ---
Reason For Study: DYSPNEA Procedure This was a 2D Doppler, Color Flow transthoracic echocardiogram. Exam performed in department. Left Ventricle Normal LV size. Mild to moderate segmental systolic dysfunction (see wall motion). The estimated ejection fraction is 45 %. [place] : Severely Hypokinetic. Mid-Anterior : Hypokinetic. The rest of the wall segments are normal. Right Ventricle Normal RV size. Normal systolic function. Atria Normal left atrium. Normal right atrium. Mitral Valve Bileaflet diffuse mitral valve thickening. Mild (1+) eccentric mitral valve insufficiency. Tricuspid Valve Normal tricuspid valve. Aortic Valve Trisinus/trileaflet aortic valve. Moderate focal aortic valve calcification. Peak aortic valve gradient 30 mmHg. Mean aortic valve gradient 18 mmHg. Mild aortic stenosis. Calculated aortic valve area (continuity equation) is 1.9 cm2. Pulmonic Valve Normal pulmonic valve. Great Vessels Normal aortic root. The pulmonary artery is normal size. Normal inferior vena cava. Pericardium/Pleural No pericardial effusion. MMode/2D Measurements & Calculations LVIDd: 5.6 cm IVSd: 1.4 cm LVOT diam: 2.3 cm LVIDs: 5.1 cm LVPWd: 1.0 cm LVOT area: 4.0 cm2 FS: 10.0 % LAV(MOD-bp): 64.5 ml LVAd ap4: 45.9 cm2 SV(MOD-sp4): 73.7 ml LAV(MOD-bp) Indexed: 27.5 ml/m2 LVLd ap4: 9.6 cm LAV(MOD-sp2): 74.9 ml EDV(MOD-sp4): 177.5 ml LAV(MOD-sp4): 59.3 ml EDV(sp4-el): 186.9 ml LVAs ap4: 32.1 cm2 LVLs ap4: 8.2 cm ESV(MOD-sp4): 103.7 ml ESV(sp4-el): 106.5 ml EF(MOD-sp4): 41.5 % EF(sp4-el): 43.0 % SV(sp4-el): 80.4 ml LA A4 area: 20.6 cm2 LA dimension(2D): 4.6 cm RA A4 area: 19.3 cm2 Doppler Measurements & Calculations MV E max raghavendra: 63.1 cm/sec Lat Peak E' Raghavendra: 5.6 cm/sec Med Peak E' Raghavendra: 3.2 cm/sec MV A max raghavendra: 92.2 cm/sec E/E' lat: 11.3 E/E' med: 19.7 MV E/A: 0.68 MV V2 max: 89.3 cm/sec MV P1/2t max raghavendra: 65.9 cm/sec Ao V2 max: 274.8 cm/sec MV max P.2 mmHg MV P1/2t: 107.1 msec Ao max P.4 mmHg MV V2 mean: 49.6 cm/sec Ao V2 mean: 198.0 cm/sec MV mean P.1 mmHg MV dec slope: 180.3 cm/sec2 Ao mean P.8 mmHg MV V2 VTI: 35.2 cm MVA(P1/2t): 2.1 cm2 Ao V2 VTI: 69.6 cm AV (velocity ratio): 0.48 MVA(VTI): 3.8 cm2 CATHIE(I,D): 1.9 cm2 CATHIE(V,D): 1.9 cm2 AI max raghavendra: 410.5 cm/sec LV V1 max: 129.6 cm/sec MR max raghavendra: 491.8 cm/sec AI max P.5 mmHg LV V1 max P.7 mmHg MR max P.7 mmHg AI dec slope: 249.4 cm/sec2 LV V1 mean P.4 mmHg AI P1/2t: 482.2 msec LV V1 mean: 84.6 cm/sec LV V1 VTI: 33.7 cm SV(LVOT): 134.1 ml ECHO/Echo Complete Interpretation Summary Normal LV size. Mild to moderate segmental systolic dysfunction (see wall motion). Mild aortic stenosis. Mean aortic valve gradient 18 mmHg. Compared to previous study, the left ventricular systolic function is the same. . Ordering Physician: Kendra Bonilla Referring Physician: DIPIKA PETERS Performed By: Angela Young RCS
== END | disposition home or self-care (01) ==
LOC: CVS 10:46
PROVIDERS: PCP Family Medicine; Visit Provider Internal Medicine Cardiovascular Disease
DX: R06.00 Dyspnea, unspecified (principal); I25.10 Atherosclerotic heart disease of native coronary artery without angina pectoris
CPT/HCPCS: 93306

== ENCOUNTER → 2022-12-15 | Outpatient (CLI) | payer MEDICARE, SELFPAY ==
[2020-03-07 09:49] VITALS: BMI 41.8
[2022-12-15 08:04] LABS: AST(SGOT) 37 U/L (15-37); Alanine Aminotransfer ALT/SGPT 55 U/L (16-61); Albumin, Serum 3.9 g/dL (3.2-5.0); Alkaline Phosphatase 127 U/L (45-117); Bilirubin, Direct 0.23 mg/dL (0.00-0.30); Cholesterol 135 mg/dL (200); Globulin 3.7 g/dL (2.2-4.2); High Density Lipoprotein 40 mg/dL; Protein, Total 7.6 g/dL (6.4-8.2); Triglycerides 213 mg/dL; Very Low Density Lipoprotein 43 mg/dL (5-40)
== END | disposition home or self-care (01) ==
LOC: LAB 07:18
PROVIDERS: PCP Family Medicine; Visit Provider Physician Assistant Medical
DX: I25.10 Atherosclerotic heart disease of native coronary artery without angina pectoris (principal); E78.5 Hyperlipidemia, unspecified
CPT/HCPCS: 36415; 80061; 80076

== ENCOUNTER → 2022-12-24 | Outpatient (CLI) | payer MEDICARE, SELFPAY ==
[2020-03-07 09:49] VITALS: BMI 41.8
[2022-12-24 11:57] LABS: Anion Gap 5 (5-15); BUN 27 mg/dL (7-18); BUN/Creat Ratio 15.4 RATIO (10-20); Chloride 104 mmol/L (98-107); Creatinine, Serum 1.75 mg/dL (0.70-1.30); EST Glomerular Filtration Rate 41 mL/min (>60); Est Glom Filt Rate - Afr Amer 49 mL/min (>60); Glucose 146 mg/dL (74-106); Potassium 4.3 mmol/L (3.5-5.1); Sodium Level 141 mmol/L (136-145)
== END | disposition home or self-care (01) ==
LOC: LAB 10:58
PROVIDERS: PCP Family Medicine; Visit Provider Physician Assistant Medical
DX: I25.5 Ischemic cardiomyopathy (principal); Z95.5 Presence of coronary angioplasty implant and graft
CPT/HCPCS: 36415; 80048

== ENCOUNTER → 2023-06-17 | Outpatient (CLI) | payer MEDICARE, SELFPAY ==
[2020-03-07 09:49] VITALS: BMI 41.8
[2023-06-17 08:08] LABS: AST(SGOT) 59 U/L (15-37); Alanine Aminotransfer ALT/SGPT 63 U/L (16-61); Albumin, Serum 3.6 g/dL (3.2-5.0); Alkaline Phosphatase 136 U/L (45-117); Bilirubin, Direct 0.18 mg/dL (0.00-0.30); Cholesterol 122 mg/dL (200); Globulin 4.1 g/dL (2.2-4.2); High Density Lipoprotein 41 mg/dL; Protein, Total 7.7 g/dL (6.4-8.2); Triglycerides 154 mg/dL; Very Low Density Lipoprotein 31 mg/dL (5-40)
== END | disposition home or self-care (01) ==
LOC: LAB 06:51
PROVIDERS: PCP Family Medicine; Referring Provider Physician Assistant Medical; Visit Provider Physician Assistant Medical
DX: E78.00 Pure hypercholesterolemia, unspecified (principal)
CPT/HCPCS: 36415; 80061; 80076

== ENCOUNTER 2023-06-28 17:18 | Inpatient (IN) | payer MEDICARE, SELFPAY ==
[2020-03-07 09:49] VITALS: BMI 41.8
[2023-06-28 17:22] VITALS: BP 157/64; PULSE 66; RESP 25; TEMP 36.1; O2SAT 97
[2023-06-28 18:00] VITALS: PULSE 88; RESP 22; O2SAT 91
--- NOTE | 2023-06-28 18:01 | US_ITS ---
INDICATION: pain, n/v EXAMINATION: Ultrasound US Abdomen RUQ (limited) TECHNIQUE: Ochoa-scale and color Doppler imaging was performed of the abdomen. COMPARISON: FINDINGS: LIVER: There is fatty echotexture measuring 17.8 cm. No focal hepatic lesion. No intrahepatic biliary ductal dilatation. There is no free fluid. GALLBLADDER AND BILIARY TREE: No shadowing gallstone. No pericholecystic fluid . Asymmetric gallbladder wall thickening is demonstrated. An irregular wall mass cannot be excluded. There is gallbladder sludge. The proximal common bile duct measures 3.3 mm, which is within normal limits for the patient''s age. SONOGRAPHIC MCNAIR''S SIGN: Negative. PANCREAS: Limited visualization of the pancreas. RIGHT KIDNEY: 11.5 x 4.5 x 6.9 cm. The cortex is 14 mm. There is no hydronephrosis. No shadowing calculus, focal lesion, or perinephric collection is demonstrated. Limited visualization of the aorta and IVC. US/Gallbladder IMPRESSION: Fatty liver. Gallbladder sludge. Asymmetric irregular though gallbladder wall thickening versus mass. Electronically Signed: Robbi Tapia DO at 20:49 EDT ,
--- NOTE | 2023-06-28 18:03 | EX.ED.DYSGE1 ---
HPI History of Present Illness Chief Complaint: Abd Pain Informant: patient Narrative Narrative: Patient presenting for multiple issues. He states for the past week he believes he has been filling up with fluid, his abdomen has been distended, he has been having orthopnea and dyspnea with exertion. Dyspnea with exertion is chronic, but worse than usual in the past week. He has been compliant with his Lasix 40 mg once daily, after taking it is still makes him urinate quite a bit. He has not been drinking excessive fluids compared to normal, nor does he recall eating a lot of salt recently that he is not used to. Has a history of congestive heart failure and CAD he has 8-[address] In addition, he states he has been having intermittent midsternal chest discomfort for the past month that he takes nitroglycerin for whenever he gets it and it helps. The last episode of that that he had was maybe 2 days ago. Additionally he states for the past 3 to 4 days he has had runny nose and congestion, mild cough, felt like he had a cold. Today prior to coming here, after eating he started getting mid upper abdominal discomfort that led to nausea and vomiting, his abdomen is still bothering him but it is better after he vomited. This included coffee, which he drank along with a meal. No blood. Bowel movements have seen no bright red blood per rectum or melena recently. He does occasionally get bits of bright red blood due to uncomfortable hemorrhoids which he does not feel he has today. [facility] Medical History Abdominal pain Abnormal stress test (07/2022) Ambulates with cane Atherosclerosis of coronary artery without angina pectoris Bilateral lower extremity edema Cardiology follow-up encounter Chest pain Chronic HFrEF (heart failure with reduced ejection fraction) Chronic kidney disease Chronic kidney disease (CKD) COPD (chronic obstructive pulmonary disease) Dermatitis Diastolic dysfunction Elevated liver enzymes Essential (primary) hypertension Fatty liver Former smoker Gastric ulcer GI (gastrointestinal bleed) Gout Heart murmur History of CHF (congestive heart failure) History of heart attack History of non-ST elevation myocardial infarction (NSTEMI) (05/05/21) History of stress test Hyperlipidemia Ischemic cardiomyopathy Kidney stones Low iron Non-rheumatic aortic stenosis Obesity Obstructive sleep apnea Orthopnea Osteoarthritis Secondary pulmonary arterial hypertension Shortness of breath on exertion Type 2 diabetes mellitus Home Medications aspirin 81 mg tablet,delayed release (Adult Aspirin Regimen) 81 mg PO DAILY heart health 04/14/18 [History Last Taken 08/02/22] multivitamin (Daily Multi-Vitamin tablet) 1 tab PO DAILY vitamin 01/25/19 [History Last Taken 07/21/21] allopurinol 100 mg tablet 100 mg PO DAILYCM GOUT 08/03/22 [History Last Taken Unknown] pantoprazole 40 mg tablet,delayed release 40 mg PO DAILY #90 tabs 08/11/22 [Rx Last Taken Unknown] glipizide 5 mg tablet tablet PO 09/15/22 [History Last Taken Unknown] carvedilol 12.5 mg tablet 12.5 mg PO BID #180 tabs 12/01/22 [Rx Last Taken Unknown] furosemide 40 mg tablet 40 mg PO DAILY #90 tabs 02/26/23 [Rx Last Taken Unknown] nitroglycerin 0.4 mg sublingual tablet 0.4 mg sublingual Q5-15M PRN chest pain #25 tabs 06/09/23 [Rx Last Taken Unknown] atorvastatin 80 mg tablet See Rx Instructions .Route .COMPLEX #90 tabs 06/17/23 [Rx Last Taken Unknown] Allergy/AdvReac Type Severity Reaction Status Date / Time metformin AdvReac Elevated Verified 06/28/23 17:21 LDH and anion gap Family History Mother , Age 80 Diabetes Hypertension Father , Age 55, coma Diabetes Hypertension Sister Hypertension Brother Diabetes Hypertension Cancer, Onset Age: 50 prostate cancer CAD (coronary artery disease) Surgical History History of appendectomy History of cardiac catheterization History of coronary artery stent placement (01/24/20) History of esophagogastroduodenoscopy (EGD) History of herniorrhaphy History of left heart catheterization (07/13/22) History of tonsillectomy History of total knee replacement (TKR) Social History household members: children Smoking Status: Former smoker quit date: 01/31/11 alcohol intake: current alcohol intake frequency: holidays/special occasions only substance use type: does not use caffeine: Yes Type: coffee ROS ROS ED Constitutional Constitutional ED: Denies chills or fever(s) Eyes Eyes: Denies change in vision or diplopia ENT ENT ED: Denies rhinorrhea or sore throat Cardiovascular Cardiovascular: Reports chest pain and orthopnea; Denies leg edema, palpitations or syncope Respiratory/Chest Respiratory/Chest: Reports cough, dyspnea on exertion and orthopnea; Denies sputum Gastrointestinal Gastrointestinal: Reports abdominal pain, nausea and vomiting; Denies diarrhea Genitourinary Genitourinary ED: Denies dysuria or hematuria Musculoskeletal Musculoskeletal: Denies back pain or neck pain Integumentary Denies abscess or rash Neurologic Neurologic: Denies headache(s), paresthesias or weakness Psychiatric Psychiatric: Denies anxiety or suicidal thoughts EXAM Physical Exam Const Vital Signs: 06/28/23 17:22 06/28/23 18:00 06/28/23 18:08 Temperature 97 F L Temperature Source Temporal Pulse Rate 66 88 Respiratory Rate 25 H 22 H Blood Pressure 157/64 H Blood Pressure Mean 95 Pulse Ox 97 91 Oxygen Delivery Method Room Air Room Air Room Air 06/28/23 19:04 Temperature Temperature Source Pulse Rate 80 Respiratory Rate 18 Blood Pressure 180/56 H Blood Pressure Mean 97 Pulse Ox 90 Oxygen Delivery Method Room Air Positive well nourished, well developed and obese General Appearance ED: well developed and NAD Nutritional Appearance: obese HEENT Reports moist mucous membranes normocephalic and atraumatic Eyes PERRL and EOMs intact bilaterally Neck full ROM, no lymphadenopathy, supple and no JVD Chest Wall inspection of chest normal and palpation of chest normal Resp normal respiratory effort and clear to auscultation bilaterally Cardio regular rate and regular rhythm Heart Sounds: murmur systolic Peripheral Pulses: pulses 2+ throughout GI GI Narrative: Tender across upper abdomen no guarding or rebound. No pulsatile mass but obesity limits this part of the exam. Distended. Auscultation: normoactive bowel sounds Palpation: soft Back/Spine no CVA tenderness General Back: other FROM Extremity normal to inspection General Extremety ED: Yes edema; Negative for pulses abnormal or tenderness General Extremity: edema bilateral lower extremity Details: trace; Negative for pulses abnormal Neuro oriented x3, CN's II-XII intact bilaterally and no sensory deficits noted Sensorium / Orientation: awake and alert Motor Exam: strength 5/5 throughout Psych mental status grossly normal Skin no rashes or lesions noted and no wounds MDM MDM MDM Narrative Medical decision making narrative: Patient does have symptoms of fluid overload, but he is not hypoxic, is not in respiratory distress and he is not having unstable angina. His EKG shows nonspecific abnormalities similar to prior, and his troponin is within normal limits. Chronic kidney disease is stable, and his blood counts look good. Chest x-ray 1 view shows some mild pulmonary congestion my interpretation, radiology in agreement. My more acute concern on this patient is his upper abdominal pain vomiting with tenderness, and the fact that he is 73 still has his gallbladder. Therefore I sent for liver enzymes and lipase, all of which were elevated, and a gallbladder ultrasound, I reviewed the images and report which I agree with, there do not appear to be any shadowing stones but there is sludge in an area that the radiologist states could be wall thickening versus mass. Discussed with surgery Dr. Lemons, he recommended admitting the patient and obtaining an MRCP for further evaluation, which is not available emergently at this hour of the night. He did state that if the patient ends up having a gallbladder mass, it is possible he may need to be transferred to another facility due to the extent of the surgery he may require. I discussed this with the patient, he does not want to be transferred to another facility right now, he wants to stay here if at all possible. Therefore discussed with hospitalist for admission, requested a CT which we will obtain while in the emergency department. Lab Data Attestation: I reviewed the patient's lab results. Labs: Laboratory Results - last 24 hr 06/28/23 17:57 WBC 6.6 RBC 5.13 Hgb 15.5 Hct 50.5 MCV 98.4 H MCH 30.2 MCHC 30.7 L RDW Std Deviation 52.7 H RDW Coeff of Raphael 14.6 Plt Count 133 L MPV 11.0 Immature Gran % (Auto) 0.500 Neut % (Auto) 87.7 H Lymph % (Auto) 8.3 L [place] % (Auto) 1.2 Eos % (Auto) 2.0 Baso % (Auto) 0.3 Absolute Neuts (auto) 5.8 Absolute Lymphs (auto) 0.55 L Nucleated RBC % 0 Differential Comment SCANNED Sodium 139 Potassium 3.9 Chloride 106 Carbon Dioxide 24.0 Anion Gap 9 BUN 26 H Creatinine 1.69 H Est GFR (MDRD) Af Amer 51 L Est GFR (MDRD) Non-Af 42 L BUN/Creatinine Ratio 15.4 Glucose 195 H Calcium 8.6 Total Bilirubin 2.70 H AST 167 H ALT 103 H Alkaline Phosphatase 252 H Troponin I High Sens 76 B-Natriuretic Peptide 587.8 H Total Protein 7.6 Albumin 3.4 Globulin 4.2 Albumin/Globulin Ratio 0.8 L Lipase > 250 H Radiography Diagnostic Testing: Clinical Impression(s) from Imaging Studies Gallbladder Ultrasound 06/28/23 18:01 IMPRESSION: Fatty liver. Gallbladder sludge. Asymmetric irregular though gallbladder wall thickening versus mass. Electronically Signed: Robbi Tapia DO at 20:49 EDT , Chest X-Ray 06/28/23 18:21 IMPRESSION: The cardiac silhouette is enlarged with slight central pulmonary vascular prominence. Electronically Signed: Robbi Tapia DO at 18:50 EDT , Rhythm Strip Rhythm Strip: Sinus Rhythm Rate: 73 Ectopy: None EKG Initial EKG: Attestation: I personally reviewed and interpreted this EKG as follows: Interpretation: Sinus Rhythm, No Acute Injury Pattern and Non-Specific ST Changes Prior EKG tracings: available for review Prior: Unchanged (2020) Management Discussion w/another healthcare provider: Hospitalist and Assistant Infant Toddler Teacher ([facility]) Discharge Plan Dx/Rx/DC Orders Clinical Impression: Acute pancreatitis, Acute exacerbation of CHF (congestive heart failure), Elevated liver enzymes, Biliary colic Disposition Disposition: Acute Care Hospital [facility]
[2023-06-28] MEDS: Ondansetron 4 MG/2 ML Vial IV (18:12)
[2023-06-28 18:13] LABS: Absolute Lymphocyte Count 0.55 X10^3/uL (0.83-4.51); Absolute Neutrophil Count 5.8 X10^3/uL (2.0-7.7); Basophil# 0.02 X10^3/uL; Basophil% 0.3 % (0-1); Eosinophil# 0.13 X10^3/uL; Hematocrit 50.5 % (40-54); Hemoglobin 15.5 g/dL (13.0-16.5); Lymphocyte # 0.55 X10^3/ul (0.83-4.51); Lymphocyte % 8.3 % (19-41); Mean Corp Hgb Conc 30.7 g/dL (32-36); Mean Corpuscular Hgb 30.2 pg (27.0-32.0); Mean Corpuscular Volume 98.4 fL (80-94); Monocyte# 0.08 X10^3/uL; Monocyte% 1.2 % (0-10); NRBC Flagged by Analyzer 0 % (0-5); Neutrophil # 5.79 X10^3/uL (2.7-7.7); Neutrophil % 87.7 % (47-70); POSITIVE DIFFERENTIAL YES; Platelet Count 133 K/mm3 (150-450); RBC Distribution Width CV 14.6 % (11.6-14.6); RBC Distribution Width SD 52.7 fl (35.1-43.9); Red Blood Count 5.13 M/mm3 (4.6-6.2); White Blood Count 6.6 K/mm3 (4.4-11.0)
[2023-06-28 18:14] LABS: Differential Indicated SCAN CRITERIA MET
--- NOTE | 2023-06-28 18:21 | RAD_ITS ---
INDICATION: chest pain EXAMINATION/TECHNIQUE: X-RAY - XR Chest 1 View COMPARISON: July 09, 2022 FINDINGS: LINES/DEVICES: None. LUNGS: No consolidation, edema or effusion. No pneumothorax. MEDIASTINUM AND CARDIOVASCULAR STRUCTURES: Cardiac silhouette is enlarged with slight central pulmonary vascular prominence. Central airways and mediastinal contour are unremarkable. BONES AND SOFT TISSUES: Old left rib fractures. Degenerative vertebral changes. RAD/Chest 1 View (Portable) IMPRESSION: The cardiac silhouette is enlarged with slight central pulmonary vascular prominence. Electronically Signed: Robbi Tapia DO at 18:50 EDT ,
[2023-06-28 18:47] LABS: ALB/GLOB Ratio 0.8 RATIO (0.9-2.4); AST(SGOT) 167 U/L (15-37); Alanine Aminotransfer ALT/SGPT 103 U/L (16-61); Albumin, Serum 3.4 g/dL (3.2-5.0); Alkaline Phosphatase 252 U/L (45-117); Anion Gap 9 (5-15); BUN 26 mg/dL (7-18); BUN/Creat Ratio 15.4 RATIO (10-20); Calcium,Total 8.6 mg/dL (8.5-10.1); Chloride 106 mmol/L (98-107); Creatinine, Serum 1.69 mg/dL (0.70-1.30); EST Glomerular Filtration Rate 42 mL/min (>60); Est Glom Filt Rate - Afr Amer 51 mL/min (>60); Globulin 4.2 g/dL (2.2-4.2); Glucose 195 mg/dL (74-106); Potassium 3.9 mmol/L (3.5-5.1); Protein, Total 7.6 g/dL (6.4-8.2); Sodium Level 139 mmol/L (136-145); Troponin-I HS 76 pg/mL (3.0-78.0)
[2023-06-28 18:49] LABS: Lipase > 250 U/L (13-75)
[2023-06-28 18:56] LABS: Differential Comment SCANNED
[2023-06-28 19:04] VITALS: BP 180/56; PULSE 80; RESP 18; O2SAT 90
[2023-06-28 19:15] LABS: BNP,B-Type NATRIURETIC PEPTIDE 587.8 pg/mL (0-100)
--- NOTE | 2023-06-28 22:11 | CT_ITS ---
STUDY: CT ABDOMEN AND PELVIS WITH CONTRAST REASON FOR EXAM: Male, 73 years old. elevated liver enzymes, lipase, upper abd pain RADIATION DOSAGE (If Supplied By Facility): CTDIvol = ( 17.05 ) mGy, DLP = ( 1367.48 ) mGycm TECHNIQUE: Transaxial images were obtained from the dome of the diaphragm to the symphysis pubis without oral contrast. isovue 370 100 ml was administered. Sagittal and coronal images were reconstructed. Individualized dose optimization techniques were used for this CT. COMPARISON: None. FINDINGS: The visualized lung bases are unremarkable. The visualized portions of the heart are within normal limits. Normal liver. Cholelithiasis. No significant dilatation of the extrahepatic biliary system. Normal spleen. Normal pancreas. Normal bilateral adrenal glands. Normal right kidney. Normal left kidney. Normal visualized stomach. Possible duodenal diverticula. Mild diverticulosis of the colon. The appendix is not visualized. Calcified abdominal aorta. Normal inferior vena cava. Normal retroperitoneum. Normal urinary bladder. Fatty density in the inguinal canals. Normal abdominal wall. Degenerative vertebral changes. Cystic changes at the right femoral head. CT/Abdomen/Pelvis W IV Cont ONLY IMPRESSION: Cholelithiasis. Possible duodenal diverticula. Mild diverticulosis of the colon. Fatty density in the inguinal canals. Electronically Signed: Robbi Tapia DO at 22:58 EDT ,
[2023-06-28 22:14] VITALS: BP 133/65; PULSE 81; RESP 18; O2SAT 90
[2023-06-28 22:16] VITALS: BP 133/65; PULSE 81; RESP 18; TEMP 36.7; O2SAT 91; BMI 38.9
--- NOTE | 2023-06-28 22:19 | HP.PCM.HOS_ITS ---
[facility] - General General Date of Admission: 06/28/23 Date of Service: 06/28/23 Chief Complaint: Epigastric pain [facility] Narrative LUIS DEE, is a 73 M [employer] with a significant history of congestive heart failure who presents to the emergency department with excruciating epigastric pain and right upper quadrant pain that started about 30 minutes time after eating; and about 4 and half hours before presentation. Because the pain got worse patient came to emergency department. She described the pain as aching and pressure. Walking made the pain worse. Patient vomited about 2 times and had relief from the pain. Also patient reports intermittent chest pain that started about 4-day before presentation and he has an appointment scheduled with his cardiology. He reports dyspnea on exertion, orthopnea and abdominal swelling. [facility] Medical History Abdominal pain Abnormal stress test (07/2022) Ambulates with cane Atherosclerosis of coronary artery without angina pectoris Bilateral lower extremity edema Cardiology follow-up encounter Chest pain Chronic HFrEF (heart failure with reduced ejection fraction) Chronic kidney disease Chronic kidney disease (CKD) COPD (chronic obstructive pulmonary disease) Dermatitis Diastolic dysfunction Elevated liver enzymes Essential (primary) hypertension Fatty liver Former smoker Gastric ulcer GI (gastrointestinal bleed) Gout Heart murmur History of CHF (congestive heart failure) History of heart attack History of non-ST elevation myocardial infarction (NSTEMI) (05/05/21) History of stress test Hyperlipidemia Ischemic cardiomyopathy Kidney stones Low iron Non-rheumatic aortic stenosis Obesity Obstructive sleep apnea Orthopnea Osteoarthritis Secondary pulmonary arterial hypertension Shortness of breath on exertion Type 2 diabetes mellitus Home Medications aspirin 81 mg tablet,delayed release (Adult Aspirin Regimen) 81 mg PO DAILY heart health 04/14/18 [History Last Taken 08/02/22] multivitamin (Daily Multi-Vitamin tablet) 1 tab PO DAILY vitamin 01/25/19 [History Last Taken 07/21/21] allopurinol 100 mg tablet 100 mg PO DAILYCM GOUT 08/03/22 [History Last Taken Unknown] pantoprazole 40 mg tablet,delayed release 40 mg PO DAILY #90 tabs 08/11/22 [Rx Last Taken Unknown] glipizide 5 mg tablet tablet PO 09/15/22 [History Last Taken Unknown] carvedilol 12.5 mg tablet 12.5 mg PO BID #180 tabs 12/01/22 [Rx Last Taken Unk nown] furosemide 40 mg tablet 40 mg PO DAILY #90 tabs 02/26/23 [Rx Last Taken Unknown] nitroglycerin 0.4 mg sublingual tablet 0.4 mg sublingual Q5-15M PRN chest pain #25 tabs 06/09/23 [Rx Last Taken Unknown] atorvastatin 80 mg tablet See Rx Instructions .Route .COMPLEX #90 tabs 06/17/23 [Rx Last Taken Unknown] Allergy/AdvReac Type Severity Reaction Status Date / Time metformin AdvReac Elevated Verified 06/28/23 17:21 LDH and anion gap Family History Mother , Age 80 Diabetes Hypertension Father , Age 55, coma Diabetes Hypertension Sister Hypertension Brother Diabetes Hypertension Cancer, Onset Age: 50 prostate cancer CAD (coronary artery disease) Surgical History History of appendectomy History of cardiac catheterization History of coronary artery stent placement (01/24/20) History of esophagogastroduodenoscopy (EGD) History of herniorrhaphy History of left heart catheterization (07/13/22) History of tonsillectomy History of total knee replacement (TKR) Social History household members: children Smoking Status: Former smoker quit date: 01/31/11 alcohol intake: current alcohol intake frequency: holidays/special occasions only substance use type: does not use caffeine: Yes Type: coffee ROS ROS Narrative Pertinent positives and pertinent negatives as noted in HPI. All other systems were reviewed and are negative Vital Signs Vital Signs Vital Signs: 06/28/23 17:22 06/28/23 18:00 06/28/23 18:08 Temperature 97 F L Temperature Source Temporal Pulse Rate 66 88 Respiratory Rate 25 H 22 H Blood Pressure 157/64 H Blood Pressure Mean 95 Pulse Ox 97 91 Oxygen Delivery Method Room Air Room Air Room Air 06/28/23 19:04 06/28/23 22:14 06/28/23 22:16 Temperature 98.0 F Temperature Source Temporal Pulse Rate 80 81 81 Respiratory Rate 18 18 18 Blood Pressure 180/56 H 133/65 H 133/65 H Blood Pressure Mean 97 87 87 Pulse Ox 90 90 91 Oxygen Delivery Method Room Air Room Air Room Air Weight Weight: 123.6 kg Body Mass Index (BMI) 38.9 Physical Exam Narrative Physical exam: General: Well-nourished, well-developed. Head: Normocephalic, atraumatic, no tenderness Eyes: Vision is grossly intact. EOMI ENT, no trauma, moist mucous membranes, no rhinorrhea Neck: Nontender, No thyromegaly. CVS: Regular rate and rhythm. S1-S2 present. Murmur is present (states chronic). No gallop or rub. Respiratory : clear to auscultation bilaterally, chest wall nontender Abdomen: Soft, nontender, distended, normal bowel sounds. : Deferred Back: Nontender, no CVA tenderness, no midline spinal tenderness, deformities, step-offs Extremities: Nontender full range of motion, no trauma Skin: Normal color, no trauma, abrasions Neuro: Alert, oriented, cranial nerves II through XII grossly intact. Psychiatry: Normal mood. Normal affect. Not depressed. Not anxious. Results Lab / Micro Data Attestation: I reviewed the patient's lab results. 06/28/23 17:57 06/28/23 17:57 Labs: Laboratory Results - last 24 hr 06/28/23 17:57: WBC 6.6, RBC 5.13, Hgb 15.5, Hct 50.5, MCV 98.4 H, MCH 30.2, MCHC 30.7 L, RDW Std Deviation 52.7 H, RDW Coeff of Raphael 14.6, Plt Count 133 L, MPV 11.0, Immature Gran % (Auto) 0.500, Neut % (Auto) 87.7 H, Lymph % (Auto) 8.3 L, [place] % (Auto) 1.2, Eos % (Auto) 2.0, Baso % (Auto) 0.3, Absolute Neuts (auto) 5.8, Absolute Lymphs (auto) 0.55 L, Nucleated RBC % 0, Differential Comment SCANNED, Sodium 139, Potassium 3.9, Chloride 106, Carbon Dioxide 24.0, Anion Gap 9, BUN 26 H, Creatinine 1.69 H, Est GFR (MDRD) Af Amer 51 L, Est GFR (MDRD) Non- Af 42 L, BUN/Creatinine Ratio 15.4, Glucose 195 H, Calcium 8.6, Total Bilirubin 2.70 H, AST 167 H, ALT 103 H, Alkaline Phosphatase 252 H, Troponin I High Sens 76, B-Natriuretic Peptide 587.8 H, Total Protein 7.6, Albumin 3.4, Globulin 4.2, Albumin/Globulin Ratio 0.8 L, Lipase > 250 H Micro: Microbiology 06/28/23 18:10 Nasal Secretion SARS-CoV-2 Antigen (Rapid) - Final Rhythm Strip Rhythm Strip: Sinus Rhythm Rate: 73 Ectopy: None Radiology Impression Gallbladder Ultrasound 06/28/23 18:01 IMPRESSION: Fatty liver. Gallbladder sludge. Asymmetric irregular though gallbladder wall thickening versus mass. Electronically Signed: Robbi Tapia DO at 20:49 EDT , Chest X-Ray 06/28/23 18:21 IMPRESSION: The cardiac silhouette is enlarged with slight central pulmonary vascular prominence. Electronically Signed: Robbi Tapia DO at 18:50 EDT , Assessment & Plan Assessment/Plan (1) Acute pancreatitis: QUALIFIERS: Acute pancreatitis complication: no infection or necrosis Pancreatitis type: biliary Qualified Code(s): K85.10 - Biliary acute pancreatitis without necrosis or infection (2) Elevated liver enzymes: (3) Chronic HFrEF (heart failure with reduced ejection fraction): (4) Chronic kidney disease: QUALIFIERS: Chronic kidney disease stage: stage 3 (moderate) Chronic kidney disease stage 3 subtype: stage 3b (GFR 30-44) Qualified Code(s): N18.32 - Chronic kidney disease, stage 3b PLAN: Plan Acute on chronic gallstone pancreatitis Patient with a lipase level of more than 250. However CT abdomen and pelvis with contrast showed normal pancreas. We will treat as pancreatitis especially as patient has gallstones, epigastric pain and right upper quadrant pain. Patient kept n.p.o. except ice and sips with meds. Repeat lipase in a.m. Morphine as needed for pain Hyperbilirubinemia Bilirubin level of 2.70. Of note his bilirubin on 06/17/2023 today was 0.8. Liver chemistry is elevated; trend. Ultrasound gallbladder with gallbladder sludge; asymmetric irregular tough gallbladder wall thickening versus mass. With history of heart failure counseled use of IV fluids. Placed on normal saline 75 MLS per hour. ED doctor discussed case with general surgery who recommended MRCP. MRCP ordered. General surgery consult. Chronic heart failure with reduced ejection fraction Mild. stable Impression of chest x-ray by radiology: The Left is enlarged with slight central pulmonary vascular prominence. Actual chest x-ray image was independently interpreted. I agree with radiologist interpretation. Echocardiogram on 11/16/2022 showed ejection fraction 45%. [place] severely hypokinetic; moderate-severe hypokinetic. Mild eccentric mitral valve insufficiency. Mild aortic stenosis. Echocardiogram on 04/17/2021 also showed EF of 45% CKD stage IIIb Stable Trend CMP DVT prophylaxis SCDs as patient is a surgical candidate Time spent in the patient's overall evaluation,decision-making process, review of diagnostic data, adjustment of management, discussion with other providers, nursing nursing and ancillary staff involved in patient's care documentation, 70 minutes. Charges/Coding Visit Charges Inpatient E&M: 41644 Init Hosp L3
--- NOTE | 2023-06-28 23:04 | ECHOCS_ITS ---
Reason For Study: DYSPNEA Procedure This was a 2D Doppler, Color Flow transthoracic echocardiogram. The study was technically difficult. Contrast injection was performed. Exam performed portable in patient room. Left Ventricle Normal LV size. The estimated ejection fraction is 40 %. There is evidence of diastolic dysfunction. Vantage : Hypokinetic. Right Ventricle Normal RV size. Normal systolic function. Atria Normal left atrium. Normal right atrium. No doppler evidence for ASD. Mitral Valve There is no mitral valve stenosis. Mild (1+) mitral valve insufficiency. Tricuspid Valve There is no tricuspid stenosis. Trivial tricuspid valve insufficiency. Aortic Valve Trisinus/trileaflet aortic valve. Moderate aortic stenosis. Mild-Moderate (1-2+) aortic valve insufficiency. Pulmonic Valve There is no pulmonic valvular stenosis. No pulmonic valve insufficiency. Great Vessels Normal aortic root. Pericardium/Pleural No pericardial effusion. Medication Diluted definity 2ml given slow IV push to enhance endocardial definition. Performed a rapid injection of agitated mix of 9 cc saline and 1cc air to assess for atrial septal defect. MMode/2D Measurements & Calculations LVIDd: 6.0 cm IVSd: 1.1 cm LVOT diam: 2.3 cm LVIDs: 4.7 cm LVPWd: 1.5 cm FS: 22.1 % LVOT area: 4.0 cm2 Ao root diam: 3.5 cm LAV(MOD-bp): 79.0 ml LVAd ap4: 43.6 cm2 LAV(MOD-bp) Indexed: 33.2 ml/m2 LVLd ap4: 9.6 cm LAV(MOD-sp2): 66.5 ml EDV(MOD-sp4): 160.9 ml LAV(MOD-sp4): 92.1 ml EDV(sp4-el): 167.9 ml LVAs ap4: 34.4 cm2 LVLs ap4: 8.6 cm ESV(MOD-sp4): 110.2 ml ESV(sp4-el): 116.2 ml EF(MOD-sp4): 31.5 % EF(sp4-el): 30.8 % SV(MOD-sp4): 50.7 ml SV(sp4-el): 51.6 ml LA A4 area: 25.8 cm2 LA dimension(2D): 4.2 cm RA A4 area: 19.5 cm2 Time Measurements MV dec time: 0.15 sec Doppler Measurements & Calculations MV E max raghavendra: 90.1 cm/sec Lat Peak E' Raghavendra: 7.0 cm/sec Med Peak E' Raghavendra: 5.1 cm/sec MV A max raghavendra: 68.2 cm/sec E/E' lat: 12.8 E/E' med: 17.6 MV E/A: 1.3 MV V2 max: 90.9 cm/sec MV dec slope: 631.7 cm/sec2 Ao V2 max: 282.9 cm/sec MV max P.3 mmHg Ao max P.3 mmHg MV V2 mean: 48.6 cm/sec Ao V2 mean: 221.0 cm/sec MV mean P.1 mmHg Ao mean P.1 mmHg MV V2 VTI: 29.1 cm Ao V2 VTI: 62.1 cm MVA(VTI): 3.5 cm2 AV (velocity ratio): 0.41 CATHIE(I,D): 1.6 cm2 CATHIE(V,D): 1.6 cm2 AI max raghavendra: 377.4 cm/sec LV V1 max: 111.7 cm/sec SV(LVOT): 100.5 ml AI max P.0 mmHg LV V1 max P.0 mmHg LV V1 mean P.7 mmHg AI dec slope: 198.4 cm/sec2 LV V1 mean: 76.1 cm/sec AI P1/2t: 557.1 msec LV V1 VTI: 25.2 cm ECHO/Echo Complete W/ Contrast Interpretation Summary The estimated ejection fraction is 40 %. Vantage : Hypokinetic. There is evidence of diastolic dysfunction. Mild (1+) mitral valve insufficiency. Moderate aortic stenosis. Mild-Moderate (1-2+) aortic valve insufficiency. Ordering Physician: Hany Zacarias Referring Physician: Reg Zuñiga M.D. Performed By: Angela Young RCS
[2023-06-28 23:05] VITALS: BMI 39.9
[2023-06-28 23:20] VITALS: BP 141/62; PULSE 85; RESP 18; TEMP 36.8; O2SAT 92
[2023-06-28] MEDS: MELATONIN 3 MG TABLET PO (23:38)
[2023-06-28] MEDS: 0.9% Normal Saline 1,000 ML 75 ML IV (23:54)
[2023-06-29 00:32] LABS: Troponin-I HS 85 pg/mL (3.0-78.0)
[2023-06-29 02:26] LABS: Troponin-I HS 83 pg/mL (3.0-78.0)
[2023-06-29 03:20] VITALS: BMI 39.9
[2023-06-29 05:37] VITALS: BP 135/60; PULSE 63; RESP 18; TEMP 36.9; O2SAT 92
--- NOTE | 2023-06-29 05:55 | MRI_ITS ---
STUDY: MR CHOLANGIOPANCREATOGRAPHY (MRCP); MRI ABDOMEN WITHOUT IV CONTRAST REASON FOR EXAM: Male, 73 years old. Hyperbilirubinemia, elevated liver enzymes, or upper abdominal pain TECHNIQUE: Standard MRCP technique was utilized. Three-dimensional reconstruction images performed of the biliary system at an independent workstation and reviewed at time of dictation. . Multiphase MRI performed without IV contrast. COMPARISON: None. FINDINGS: MRCP: Gall Bladder: Small layering gallstones. No gallbladder wall thickening. Cystic duct: Normal with no demonstrated fixed filling defect. Intrahepatic ducts: Normal visualized intrahepatic ducts with no demonstrated fixed filling defect, dilation or stricture. Common hepatic duct: Normal with no demonstrated fixed filling defect, dilation or stricture. Common bile duct: Normal with no demonstrated fixed filling defect, dilation or stricture. Pancreatic duct: Normal with no demonstrated fixed filling defect, dilation or stricture. MRI abdomen without and with IV contrast: Visualized base of the chest is unremarkable. The visualized portions of the heart are within normal limits. No hepatic masses. Normal spleen. Normal pancreas. Normal bilateral adrenal glands. Normal right kidney. Normal left kidney. Visualized hollow viscus structures are grossly unremarkable except for small duodenal diverticulum. No retroperitoneal adenopathy. No bone marrow edema. MRI/MRCP Abdomen without Contrast IMPRESSION: 1. Normal MR Cholangiopancreatography (MRCP). 2. Unremarkable noncontrasted MRI appearance of the abdomen. Electronically Signed: Leo Sharma (Brooks), at 12:17 EDT ,
[2023-06-29 06:00] VITALS: BMI 40.1
[2023-06-29 06:17] LABS: ALB/GLOB Ratio 0.8 RATIO (0.9-2.4); AST(SGOT) 295 U/L (15-37); Alanine Aminotransfer ALT/SGPT 314 U/L (16-61); Alkaline Phosphatase 315 U/L (45-117); Anion Gap 5 (5-15); BUN 25 mg/dL (7-18); Calcium,Total 8.2 mg/dL (8.5-10.1); Chloride 109 mmol/L (98-107); Creatinine, Serum 1.56 mg/dL (0.70-1.30); EST Glomerular Filtration Rate 46 mL/min (>60); Est Glom Filt Rate - Afr Amer 56 mL/min (>60); Estimated Creatinine Clearance 41.54 ml/min; Globulin 3.6 g/dL (2.2-4.2); Glucose 140 mg/dL (74-106); Lipase 222 U/L (13-75); Potassium 3.8 mmol/L (3.5-5.1); Protein, Total 6.6 g/dL (6.4-8.2); Sodium Level 140 mmol/L (136-145); Troponin-I HS 108 pg/mL (3.0-78.0)
[2023-06-29 07:16] LABS: Bedside Glucose 148 mg/dL (74-106)
--- NOTE | 2023-06-29 08:38 | PN.HOSP_ITS ---
Reason for Visit Reason for Visit: Diagnoses Chronic systolic (congestive) heart failure (06/28/23) Biliary acute pancreatitis without necrosis or infection (06/28/23) Chronic kidney disease, stage 3b (06/28/23) Abnormal levels of other serum enzymes (06/28/23) Subjective Subjective Patient reports feeling slightly better than yesterday, did ultimately divulged that over the past several weeks has had to take nitro about once a week for some concerning symptoms and that would resolve it, had an appoint with his hand or machine paster today but ended up in the hospital for unrelated reason Objective Data Objective Data Vital Signs: Vital Signs Temp Pulse Resp BP Pulse Ox O2 Del Method 98.5 F 63 18 135/60 H 92 Room Air 06/29/23 05:37 06/29/23 05:37 06/29/23 05:37 06/29/23 05:37 06/29/23 05:37 06/29/23 08:05 Oxygen Delivery Method Room Air Weight: 123.1 kg Body Mass Index (BMI) 40.1 Intake & Output: Intake and Output for Last 24 Hours 06/27/23 06/28/23 06/29/23 23:59 23:59 23:59 Output Total 0 / 0 475 / 475 Balance 0 / 0 -475 / -475 Lab / Micro Data 06/28/23 17:57 06/29/23 05:21 Labs: Laboratory Results - last 24 hr 06/28/23 17:57: WBC 6.6, RBC 5.13, Hgb 15.5, Hct 50.5, MCV 98.4 H, MCH 30.2, MCHC 30.7 L, RDW Std Deviation 52.7 H, RDW Coeff of Raphael 14.6, Plt Count 133 L, MPV 11.0, Immature Gran % (Auto) 0.500, Neut % (Auto) 87.7 H, Lymph % (Auto) 8.3 L, Bradford % (Auto) 1.2, Eos % (Auto) 2.0, Baso % (Auto) 0.3, Absolute Neuts (auto) 5.8, Absolute Lymphs (auto) 0.55 L, Nucleated RBC % 0, Differential Comment SCANNED, Sodium 139, Potassium 3.9, Chloride 106, Carbon Dioxide 24.0, Anion Gap 9, BUN 26 H, Creatinine 1.69 H, Est GFR (MDRD) Af Amer 51 L, Est GFR (MDRD) Non- Af 42 L, BUN/Creatinine Ratio 15.4, Glucose 195 H, Calcium 8.6, Total Bilirubin 2.70 H, AST 167 H, ALT 103 H, Alkaline Phosphatase 252 H, Troponin I High Sens 76, B-Natriuretic Peptide 587.8 H, Total Protein 7.6, Albumin 3.4, Globulin 4.2, Albumin/Globulin Ratio 0.8 L, Lipase > 250 H 06/29/23 00:05: Troponin I High Sens 85 H 06/29/23 02:00: Troponin I High Sens 83 H 06/29/23 05:21: Sodium 140, Potassium 3.8, Chloride 109 H, Carbon Dioxide 26.0, Anion Gap 5, BUN 25 H, Creatinine 1.56 H, Estim Creat Clear Calc 41.54, Est GFR (MDRD) Af Amer 56 L, Est GFR (MDRD) Non-Af 46 L, BUN/Creatinine Ratio 16.0, Glucose 140 H, Calcium 8.2 L, Total Bilirubin 4.70 H, AST 295 H, ALT 314 H, Alkaline Phosphatase 315 H, Troponin I High Sens 108 H, B-Natriuretic Peptide 1354.7 H, Total Protein 6.6, Albumin 3.0 L, Globulin 3.6, Albumin/Globulin Ratio 0.8 L, Lipase 222 H 06/29/23 06:58: POC Glucose 148 H Micro: Microbiology 06/28/23 18:10 Nasal Secretion SARS-CoV-2 Antigen (Rapid) - Final Radiography Diagnostic Testing: Radiology Impression Gallbladder Ultrasound 06/28/23 18:01 IMPRESSION: Fatty liver. Gallbladder sludge. Asymmetric irregular though gallbladder wall thickening versus mass. Electronically Signed: Robbi Tapia DO at 20:49 EDT , Chest X-Ray 06/28/23 18:21 IMPRESSION: The cardiac silhouette is enlarged with slight central pulmonary vascular prominence. Electronically Signed: Robbi Tapia DO at 18:50 EDT , Abdomen/Pelvis CT 06/28/23 22:11 IMPRESSION: Cholelithiasis. Possible duodenal diverticula. Mild diverticulosis of the colon. Fatty density in the inguinal canals. Electronically Signed: Robbi Tapia DO at 22:58 EDT Reading Location ID and State: [facility] / [place] Tel [phone], Service support , Rhythm Strip Rhythm Strip: Sinus Rhythm Rate: 73 Ectopy: None Physical Exam Narrative General: Alert, oriented, no apparent distress HEENT: Atraumatic, normocephalic Eyes: Has some scleral icterus, extraocular movements grossly intact Neck: Supple Respiratory: Some fine crackles at the bases, normal respiratory effort Cardiovascular: Regular rate and rhythm GI: Somewhat protuberant, slightly tender more on right side, no rebound, guarding, rigidity Extremities: No edema Musculoskeletal: Moving all extremities Neuro: No overt focal neurological deficits Skin: No rashes appreciated Psych: Cooperative Assessment & Plan Assessment/Plan (1) Acute pancreatitis: QUALIFIERS: Acute pancreatitis complication: no infection or necrosis Pancreatitis type: biliary Qualified Code(s): K85.10 - Biliary acute pancreatitis without necrosis or infection (2) Elevated liver enzymes: (3) Chronic HFrEF (heart failure with reduced ejection fraction): (4) Chronic kidney disease: QUALIFIERS: Chronic kidney disease stage: stage 3 (moderate) Chronic kidney disease stage 3 subtype: stage 3b (GFR 30-44) Qualified Code(s): N18.32 - Chronic kidney disease, stage 3b PLAN: Plan #Abdominal pain secondary to acute on chronic gallstone pancreatitis -Patient with a lipase level of more than [address] abdomen pelvis with contrast showed normal pancreas patient also has symptoms consistent with pancreatitis so we will treat as pancreatitis, especially as patient has gallstones, epigastric pain and right upper quadrant pain. -Patient kept n.p.o. except ice and sips with meds. -Morphine as needed for pain -06/29: MRCP ordered, discussed with GI and is felt he needs ERCP however given his cardiac history, elevated troponin, elevated BNP and recent chest pain cardiology evaluation advised prior to patient undergoing anesthesia, cardiology consulted especially given his recent need for nitroglycerin use and high risk for surgery to help optimize patient medically to minimize risk is much as possible. Echocardiogram ordered and pending #Hyperbilirubinemia Bilirubin level of 2.70. Of note his bilirubin on 06/17/2023 today was 0.8. Liver chemistry is elevated; trend. Ultrasound gallbladder with gallbladder sludge; asymmetric irregular tough gallbladder wall thickening versus mass. With history of heart failure counseled use of IV fluids. Placed on normal saline 75 MLS per hour. ED doctor discussed case with general surgery who recommended MRCP. MRCP ordered. General surgery consult. -06/29: Liver function and bili worsened today with AST 295, ALT 314, alk phos 315 and total bili up to 4.7. GI to plan for ERCP after cardiac optimization, discussed with surgery and it was advised MRCP either way as if patient has any mass he will need hepatobiliary surgery if not we can consider further management here post ERCP #Chronic heart failure with reduced ejection fraction -Impression of chest x-ray by radiology: The Left is enlarged with slight central pulmonary vascular prominence. -Echocardiogram on 11/16/2022 showed ejection fraction 45%. Vernon severely hypokinetic; moderate-severe hypokinetic. Mild eccentric mitral valve insufficiency. Mild aortic stenosis. -Echocardiogram on 04/17/2021 also showed EF of 45% -06/29: Patient with elevated BNP but no respiratory distress and vitally stable, will repeat echocardiogram, daily weights, I's and O's. Patient's Lasix were held, given increase in BNP and hemodynamic stability we will hold fluids pending further evaluation #Elevated troponin -Suspect this is all due to myocardial strain secondary to underlying illness however has been having to take his nitroglycerin recently -Troponin 76 with repeat 85 and subsequent 83, unclear why fourth troponin was checked but it was 108. Do not suspect ACS as cause at present -We will check echocardiogram -Continue fluids but monitor carefully due to history of heart failure date cardiology consulted especially given recent cardiac complaints #History of coronary artery disease -Does have history of stent placement -Continue beta-trav and statin -Follows with cardiology on outpatient basis #Type 2 diabetes mellitus -Glucose checks and sliding scale insulin #CKD stage IIIb Stable Trend CMP -06/29: Appears to be at baseline, avoid nephrotoxic agents, continue fluids DVT prophylaxis SCDs as patient is a surgical candidate Time spent in the patient's overall evaluation,decision-making process, review of diagnostic data, adjustment of management, discussion with other providers, nursing nursing and ancillary staff involved in patient's care documentation, 51 minutes. Charges/Coding Visit Charges Inpatient E&M: 12916 Subs Hosp L3
--- NOTE | 2023-06-29 10:04 | EX.PCM.CON.S ---
Assessment & Plan Assessment/Plan (1) Acute pancreatitis: QUALIFIERS: Acute pancreatitis complication: no infection or necrosis Pancreatitis type: biliary Qualified Code(s): K85.10 - Biliary acute pancreatitis without necrosis or infection (2) Elevated liver enzymes: (3) Biliary colic: (4) Acute exacerbation of CHF (congestive heart failure): PLAN: Plan This is a 73-year-old male with complex past medical history?inclusive of some recent chest discomfort?who presents with acute onset abdominal pain and evidence of acute pancreatitis, hepatitis, and abnormal gallbladder imaging. This constellation is suggestive of acute choledocholithiasis with gallstone pancreatitis, however, patient's common bile duct is remarkably normal in diameter with both CT and ultrasound imaging. Further, patient ultrasound was read as concerning for possible mass in the wall of the gallbladder. And lastly Mr. Brizuela presents with signs and symptoms of acute congestive heart failure exacerbation. Concerning his abnormal LFTs and abnormal gallbladder imaging, I have requested an MRCP to attempt to better delineate whether or not he truly has concern for a gallbladder mass. Even in the absence of a mass, he may require temporizing measure with placement of a cholecystostomy tube on the account of his CHF exacerbation. He is currently pending a cardiology evaluation. Additionally, this MR study should better define whether there is concern for a distal biliary obstruction as a cause of his abnormal comprehensive metabolic panel. Gastroenterology consultation is pending as well. For now recommend the following: ? Consideration of empiric antibiotic coverage for enteric's given potential biliary obstruction ? Trend CMP and CBC ? N.p.o. with IV fluid support ? We will follow-up MRCP ? Follow-up cardiology and gastroenterology evaluations HPI Consult Data Date of Consult: 06/29/23 HPI Narrative Reason for Consultation: Gallbladder abnormality HPI Narrative: LUIS MELGAR, is a 73 M who presents to [facility] with complaints of acute onset upper abdominal discomfort and associated nausea and vomiting. He states that he started with the discomfort yesterday after ingesting some particularly salty chicken noodle soup. He describes the discomfort as a strangling of the ribs. 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 In addition to the abdominal discomfort he described a pushing on the chest which he states felt like one of his heart attacks that he has had in the past. Beyond the above complaints Mr. Melgar states that he has felt generally unwell and felt like he had a cold where he could not breathe. He states that he was instructed to come to the ER for evaluation by friends, but told them he would simply tough it out. Patient's ER work-up was notable for CBC with normal white blood cell count, but CMP showed elevation of AST, ALT, alkaline phosphatase, and total bilirubin. Patient's lipase was also elevated. From a cardiac standpoint he had a mildly elevated troponin and an elevated brain natruretic peptide. Ultrasound imaging of the right upper quadrant was obtained and showed mildly thickened gallbladder wall with no pericholecystic fluid and normal CBD dimensions. Radiology also noted that the patient's gallbladder wall thickening was asymmetric and shared a concern for possible mass. Notably, radiology only identified slightly no gallstones within the gallbladder lumen. Follow-up CT imaging of the abdomen pelvis, however, did identify evidence of cholelithiasis. Given patient's comorbidity index and these findings he was admitted to the hospitalist service with consultations to general surgery and gastroenterology. Patient has a abdominal surgical history inclusive of open appendectomy and inguinal hernia repair. [facility] Medical History Abdominal pain Abnormal stress test (07/2022) Ambulates with cane Atherosclerosis of coronary artery without angina pectoris Bilateral lower extremity edema Cardiology follow-up encounter Chest pain Chronic HFrEF (heart failure with reduced ejection fraction) Chronic kidney disease Chronic kidney disease (CKD) COPD (chronic obstructive pulmonary disease) Dermatitis Diastolic dysfunction Elevated liver enzymes Essential (primary) hypertension Fatty liver Former smoker Gastric ulcer GI (gastrointestinal bleed) Gout Heart murmur History of CHF (congestive heart failure) History of heart attack History of non-ST elevation myocardial infarction (NSTEMI) (05/05/21) History of stress test Hyperlipidemia Ischemic cardiomyopathy Kidney stones Low iron Non-rheumatic aortic stenosis Obesity Obstructive sleep apnea Orthopnea Osteoarthritis Secondary pulmonary arterial hypertension Shortness of breath on exertion Type 2 diabetes mellitus Home Medications aspirin 81 mg tablet,delayed release (Adult Aspirin Regimen) 81 mg PO DAILY heart health 04/14/18 [History Last Taken 06/28/23] multivitamin (Daily Multi-Vitamin tablet) 1 tab PO DAILY vitamin 01/25/19 [History Last Taken 06/28/23] allopurinol 100 mg tablet 200 mg PO DAILYCM GOUT 08/03/22 [History Last Taken 06/28/23] pantoprazole 40 mg tablet,delayed release 40 mg PO DAILY ppi #90 tabs 08/11/22 [Rx Last Taken 06/28/23] glipizide 5 mg tablet 5 mg PO BID diabetes 09/15/22 [History Last Taken Unknown] carvedilol 12.5 mg tablet 12.5 mg PO BID blood pressure #180 tabs 12/01/22 [Rx Last Taken Unknown] furosemide 40 mg tablet 40 mg PO DAILY diuretic #90 tabs 02/26/23 [Rx Last Taken Unknown] nitroglycerin 0.4 mg sublingual tablet 0.4 mg sublingual Q5-15M PRN chest pain #25 tabs 06/09/23 [Rx Last Taken Unknown] atorvastatin 80 mg tablet 80 mg PO QHS anticholesterol 06/29/23 [History Last Taken Unknown] Allergy/AdvReac Type Severity Reaction Status Date / Time metformin AdvReac Elevated Verified 06/28/23 17:21 LDH and anion gap Family History Mother , Age 80 Diabetes Hypertension Father , Age 55, coma Diabetes Hypertension Sister Hypertension Brother Diabetes Hypertension Cancer, Onset Age: 50 prostate cancer CAD (coronary artery disease) Surgical History History of appendectomy History of cardiac catheterization History of coronary artery stent placement (01/24/20) History of esophagogastroduodenoscopy (EGD) History of herniorrhaphy History of left heart catheterization (07/13/22) History of tonsillectomy History of total knee replacement (TKR) Social History household members: children Smoking Status: Former smoker quit date: 01/31/11 alcohol intake: current alcohol intake frequency: holidays/special occasions only substance use type: does not use caffeine: Yes Type: coffee ROS Cardiovascular Cardiovascular: Reports chest pain Respiratory/Chest Respiratory/Chest: Reports shortness of breath at rest and shortness of breath with exertion Gastrointestinal Gastrointestinal: Reports abdominal pain, nausea and vomiting Physical Exam GI GI Narrative: Obese, protuberant abdomen, soft, focally tender to palpation in the right upper quadrant. Technically negative Hallman sign. No visible scars (however patient states he had an open appendectomy remotely) Lab / Micro Data 06/28/23 17:57 06/29/23 05:21 Labs: Laboratory Results - last 24 hr 06/28/23 17:57: WBC 6.6, RBC 5.13, Hgb 15.5, Hct 50.5, MCV 98.4 H, MCH 30.2, MCHC 30.7 L, RDW Std Deviation 52.7 H, RDW Coeff of Raphael 14.6, Plt Count 133 L, MPV 11.0, Immature Gran % (Auto) 0.500, Neut % (Auto) 87.7 H, Lymph % (Auto) 8.3 L, Bradford % (Auto) 1.2, Eos % (Auto) 2.0, Baso % (Auto) 0.3, Absolute Neuts (auto) 5.8, Absolute Lymphs (auto) 0.55 L, Nucleated RBC % 0, Differential Comment SCANNED, Sodium 139, Potassium 3.9, Chloride 106, Carbon Dioxide 24.0, Anion Gap 9, BUN 26 H, Creatinine 1.69 H, Est GFR (MDRD) Af Amer 51 L, Est GFR (MDRD) Non-Af 42 L, BUN/Creatinine Ratio 15.4, Glucose 195 H, Calcium 8.6, Total Bilirubin 2.70 H, AST 167 H, ALT 103 H, Alkaline Phosphatase 252 H, Troponin I High Sens 76, B-Natriuretic Peptide 587.8 H, Total Protein 7.6, Albumin 3.4, Globulin 4.2, Albumin/Globulin Ratio 0.8 L, Lipase > 250 H 06/29/23 00:05: Troponin I High Sens 85 H 06/29/23 02:00: Troponin I High Sens 83 H 06/29/23 05:21: Sodium 140, Potassium 3.8, Chloride 109 H, Carbon Dioxide 26.0, Anion Gap 5, BUN 25 H, Creatinine 1.56 H, Estim Creat Clear Calc 41.54, Est GFR (MDRD) Af Amer 56 L, Est GFR (MDRD) Non-Af 46 L, BUN/Creatinine Ratio 16.0, Glucose 140 H, Calcium 8.2 L, Total Bilirubin 4.70 H, AST 295 H, ALT 314 H, Alkaline Phosphatase 315 H, Troponin I High Sens 108 H, B-Natriuretic Peptide 1354.7 H, Total Protein 6.6, Albumin 3.0 L, Globulin 3.6, Albumin/Globulin Ratio 0.8 L, Lipase 222 H 06/29/23 06:58: POC Glucose 148 H Micro: Microbiology 06/28/23 18:10 Nasal Secretion SARS-CoV-2 Antigen (Rapid) - Final Rhythm Strip Rhythm Strip: Sinus Rhythm Rate: 73 Ectopy: None Radiology Impression Gallbladder Ultrasound 06/28/23 18:01 IMPRESSION: Fatty liver. Gallbladder sludge. Asymmetric irregular though gallbladder wall thickening versus mass. Electronically Signed: Robbi Tapia DO at 20:49 EDT , Chest X-Ray 06/28/23 18:21 IMPRESSION: The cardiac silhouette is enlarged with slight central pulmonary vascular prominence. Electronically Signed: Robbi Tapia DO at 18:50 EDT , Abdomen/Pelvis CT 06/28/23 22:11 IMPRESSION: Cholelithiasis. Possible duodenal diverticula. Mild diverticulosis of the colon. Fatty density in the inguinal canals. Electronically Signed: Robbi Tapia DO at 22:58 EDT , Charges/Coding Visit Charges Inpatient E&M: 12384 Init Hosp L2
[2023-06-29] MEDS: 0.9% Saline Lock 10 ML Syringe IV ×2 (10:59→17:28)
--- NOTE | 2023-06-29 11:40 | CASEMGMT ---
RN CM Face to Face with patient for initial transition planning/care coordination assessment. RN CM introduced self and role at [facility]. Patient lying in bed, alert and oriented. Patient willing to participate in assessment and is able to answer all questions appropriately. Care providers, pharmacy, and demographics verified. Patient wishes to discharge home, denies need for home health at this time. Patient states he has no further needs or concerns at this time. CM to follow for discharge planning needs that may arise. PCP: Henry Specialists: Kathia cheese maker Preferred Pharmacy: [facility] Insurance: [email or web address] [facility] Prescription Benefit: yes Living Will/HPOA: yes, daughter Rachelle Alvarez [phone] LNOK: daughter, son Living Arrangements: Patient lives with son and friend in a single story home with no steps to enter. Patient is independent at home. Transportation: self, son DME/HHC: Patient has cane and walker at home. Patient has had [facility]HC in the past. Disposition Plan: Patient to discharge home with family support and follow-up plans in place. Coreen PAT, RN, CM
--- NOTE | 2023-06-29 11:55 | PCM.CONS.C ---
Assessment & Plan Assessment/Plan (1) Preoperative cardiovascular examination: PLAN: Patient's anginal symptoms have gradually progressed. It does not seem to meet the criteria for unstable angina at this time from the history provided by the patient. He seems to be having stable angina. I think it is reasonable to proceed with ERCP without further cardiac work-up. I would advise caution with IV fluids at the time of the procedure. Patient would be considered low risk for cardiac complications from ERCP. If patient ends up needing cholecystectomy, he would be considered low risk for that procedure as well. (2) Ischemic cardiomyopathy: PLAN: Patient appears to be euvolemic at this time. Lasix can be used as needed. Recommend close monitoring of volume status. (3) Coronary artery disease: QUALIFIERS: Coronary Disease-Associated Artery/Lesion type: [place] artery [place] vs. transplanted heart: [place] heart Associated angina: with unspecified form of angina Qualified Code(s): I25.119 - Atherosclerotic heart disease of [place] coronary artery with unspecified angina pectoris PLAN: Continue current medications for now. HPI Consult Data Date of Consult: 06/29/23 HPI Narrative Reason for Consultation: Preoperative evaluation HPI Narrative: LUIS DEE, is a 73 M who presents with acute pancreatitis. ERCP is being considered. Cardiology evaluation was requested for preoperative evaluation. Patient has history of coronary artery disease with multiple stents in the past. His last coronary angiography was in July 2002. This was reviewed. He had subtotal occlusion of a large diagonal branch that was jailed by prior LAD stent. He had collaterals to this vessel as well. He has 2 layers of stent at the origin of the diagonal branch. Patient has history of LV dysfunction as well. Patient feels that his angina currently is slightly worse than his baseline. He reports using about 20 tablets of nitroglycerin over the past 1 year more or less on a steady frequency but probably at somewhat higher frequency recently. He does have orthopnea on and off as well. His high-sensitivity troponin level was 75, in the 80s a couple of times and then around 105. His BNP is around 1300 with a prior BNP in the system in the 500s. Today patient denies any shortness of breath or chest pain. [facility] Medical History Abdominal pain Abnormal stress test (07/2022) Ambulates with cane Atherosclerosis of coronary artery without angina pectoris Bilateral lower extremity edema Cardiology follow-up encounter Chest pain Chronic HFrEF (heart failure with reduced ejection fraction) Chronic kidney disease Chronic kidney disease (CKD) COPD (chronic obstructive pulmonary disease) Dermatitis Diastolic dysfunction Elevated liver enzymes Essential (primary) hypertension Fatty liver Former smoker Gastric ulcer GI (gastrointestinal bleed) Gout Heart murmur History of CHF (congestive heart failure) History of heart attack History of non-ST elevation myocardial infarction (NSTEMI) (05/05/21) History of stress test Hyperlipidemia Ischemic cardiomyopathy Kidney stones Low iron Non-rheumatic aortic stenosis Obesity Obstructive sleep apnea Orthopnea Osteoarthritis Secondary pulmonary arterial hypertension Shortness of breath on exertion Type 2 diabetes mellitus Home Medications aspirin 81 mg tablet,delayed release (Adult Aspirin Regimen) 81 mg PO DAILY heart health 04/14/18 [History Last Taken 06/28/23] multivitamin (Daily Multi-Vitamin tablet) 1 tab PO DAILY vitamin 01/25/19 [History Last Taken 06/28/23] allopurinol 100 mg tablet 200 mg PO DAILYCM GOUT 08/03/22 [History Last Taken 06/28/23] pantoprazole 40 mg tablet,delayed release 40 mg PO DAILY ppi #90 tabs 08/11/22 [Rx Last Taken 06/28/23] glipizide 5 mg tablet 5 mg PO BID diabetes 09/15/22 [History Last Taken Unknown] carvedilol 12.5 mg tablet 12.5 mg PO BID blood pressure #180 tabs 12/01/22 [Rx Last Taken Unknown] furosemide 40 mg tablet 40 mg PO DAILY diuretic #90 tabs 02/26/23 [Rx Last Taken Unknown] nitroglycerin 0.4 mg sublingual tablet 0.4 mg sublingual Q5-15M PRN chest pain #25 tabs 06/09/23 [Rx Last Taken Unknown] atorvastatin 80 mg tablet 80 mg PO QHS anticholesterol 06/29/23 [History Last Taken Unknown] Allergy/AdvReac Type Severity Reaction Status Date / Time metformin AdvReac Elevated Verified 06/28/23 17:21 LDH and anion gap Family History Mother , Age 80 Diabetes Hypertension Father , Age 55, coma Diabetes Hypertension Sister Hypertension Brother Diabetes Hypertension Cancer, Onset Age: 50 prostate cancer CAD (coronary artery disease) Surgical History History of appendectomy History of cardiac catheterization History of coronary artery stent placement (01/24/20) History of esophagogastroduodenoscopy (EGD) History of herniorrhaphy History of left heart catheterization (07/13/22) History of tonsillectomy History of total knee replacement (TKR) Social History household members: children Smoking Status: Former smoker quit date: 01/31/11 alcohol intake: current alcohol intake frequency: holidays/special occasions only substance use type: does not use caffeine: Yes Type: coffee Physical Exam Const alert and oriented x3 HEENT normocephalic Resp normal respiratory effort Resp Narrative: Minimal crackles on the right base, mild left basal crackles. Cardio regular rate Extremity no pedal edema Risk Stratification Risk Stratification Applicable: No Charges/Coding Visit Charges Inpatient E&M: 56583 Init Hosp L1 Objective Data Vital Signs: Vital Signs Temp Pulse Resp BP Pulse Ox O2 Del Method 98.5 F 63 18 135/60 H 92 Room Air 06/29/23 05:37 06/29/23 05:37 06/29/23 05:37 06/29/23 05:37 06/29/23 05:37 06/29/23 08:05 Oxygen Delivery Method Room Air Weight: 271 lb 6.224 oz Body Mass Index (BMI) 40.1 Intake & Output: Intake and Output for Last 24 Hours 06/27/23 06/28/23 06/29/23 23:59 23:59 23:59 Intake Total 782.08 / 782.08 Output Total 0 / 0 475 / 475 Balance 0 / 0 307.08 / 307.08 Lab / Micro Data 06/28/23 17:57 06/29/23 05:21 Labs: Laboratory Results - last 24 hr 06/28/23 17:57: WBC 6.6, RBC 5.13, Hgb 15.5, Hct 50.5, MCV 98.4 H, MCH 30.2, MCHC 30.7 L, RDW Std Deviation 52.7 H, RDW Coeff of Raphael 14.6, Plt Count 133 L, MPV 11.0, Immature Gran % (Auto) 0.500, Neut % (Auto) 87.7 H, Lymph % (Auto) 8.3 L, [place] % (Auto) 1.2, Eos % (Auto) 2.0, Baso % (Auto) 0.3, Absolute Neuts (auto) 5.8, Absolute Lymphs (auto) 0.55 L, Nucleated RBC % 0, Differential Comment SCANNED, Sodium 139, Potassium 3.9, Chloride 106, Carbon Dioxide 24.0, Anion Gap 9, BUN 26 H, Creatinine 1.69 H, Est GFR (MDRD) Af Amer 51 L, Est GFR (MDRD) Non-Af 42 L, BUN/Creatinine Ratio 15.4, Glucose 195 H, Calcium 8.6, Total Bilirubin 2.70 H, AST 167 H, ALT 103 H, Alkaline Phosphatase 252 H, Troponin I High Sens 76, B-Natriuretic Peptide 587.8 H, Total Protein 7.6, Albumin 3.4, Globulin 4.2, Albumin/Globulin Ratio 0.8 L, Lipase > 250 H 06/29/23 00:05: Troponin I High Sens 85 H 06/29/23 02:00: Troponin I High Sens 83 H 06/29/23 05:21: Sodium 140, Potassium 3.8, Chloride 109 H, Carbon Dioxide 26.0, Anion Gap 5, BUN 25 H, Creatinine 1.56 H, Estim Creat Clear Calc 41.54, Est GFR (MDRD) Af Amer 56 L, Est GFR (MDRD) Non-Af 46 L, BUN/Creatinine Ratio 16.0, Glucose 140 H, Calcium 8.2 L, Total Bilirubin 4.70 H, AST 295 H, ALT 314 H, Alkaline Phosphatase 315 H, Troponin I High Sens 108 H, B-Natriuretic Peptide 1354.7 H, Total Protein 6.6, Albumin 3.0 L, Globulin 3.6, Albumin/Globulin Ratio 0.8 L, Lipase 222 H 06/29/23 06:58: POC Glucose 148 H Micro: Microbiology 06/28/23 18:10 Nasal Secretion SARS-CoV-2 Antigen (Rapid) - Final Rhythm Strip Rhythm Strip: Sinus Rhythm Rate: 73 Ectopy: None Cardiology Labs/Tests 06/28/23 17:57: WBC 6.6, RBC 5.13, Hgb 15.5, Hct 50.5, MCV 98.4 H, MCH 30.2, MCHC 30.7 L, Plt Count 133 L, MPV 11.0, Immature Gran % (Auto) 0.500, Neut % (Auto) 87.7 H, Lymph % (Auto) 8.3 L, [place] % (Auto) 1.2, Eos % (Auto) 2.0, Baso % (Auto) 0.3, Absolute Neuts (auto) 5.8, Nucleated RBC % 0, Sodium 139, Potassium 3.9, Chloride 106, Carbon Dioxide 24.0, Anion Gap 9, BUN 26 H, Creatinine 1.69 H, Est GFR (MDRD) Af Amer 51 L, Est GFR (MDRD) Non-Af 42 L, BUN/Creatinine Ratio 15.4, Glucose 195 H, Calcium 8.6, Total Bilirubin 2.70 H, B-Natriuretic Peptide 587.8 H 06/29/23 05:21: Sodium 140, Potassium 3.8, Chloride 109 H, Carbon Dioxide 26.0, Anion Gap 5, BUN 25 H, Creatinine 1.56 H, Est GFR (MDRD) Af Amer 56 L, Est GFR (MDRD) Non-Af 46 L, BUN/Creatinine Ratio 16.0, Glucose 140 H, Calcium 8.2 L, Total Bilirubin 4.70 H, B-Natriuretic Peptide 1354.7 H Rhythm: EKG: ECHO: Stress Test: Cardiac Cath: PCI: CT Surgery: Holter monitor: EPS: PPM: CXR: Chest CT Scan: Radiography Diagnostic Testing: Radiology Impression Gallbladder Ultrasound 06/28/23 18:01 IMPRESSION: Fatty liver. Gallbladder sludge. Asymmetric irregular though gallbladder wall thickening versus mass. Electronically Signed: Robbi Tapia DO at 20:49 EDT , Chest X-Ray 06/28/23 18:21 IMPRESSION: The cardiac silhouette is enlarged with slight central pulmonary vascular prominence. Electronically Signed: Robbi Tapia DO at 18:50 EDT , Abdomen/Pelvis CT 06/28/23 22:11 IMPRESSION: Cholelithiasis. Possible duodenal diverticula. Mild diverticulosis of the colon. Fatty density in the inguinal canals. Electronically Signed: Robbi Tapia DO at 22:58 EDT ,
[2023-06-29 12:10] LABS: Bedside Glucose 142 mg/dL (74-106)
[2023-06-29 13:35] VITALS: BP 126/65; PULSE 59; RESP 16; TEMP 36.5; O2SAT 92
[2023-06-29 13:39] LABS: Troponin-I HS 162 pg/mL (3.0-78.0)
--- NOTE | 2023-06-29 16:24 | CON.PCM.GI_ITS ---
HPI Consult Data Date of Consult: 06/29/23 HPI Narrative Reason for Consultation: Obstructive jaundice HPI Narrative: LUIS DEE, is a 73 M who presents to the emergency department with excruciating epigastric pain and right upper quadrant pain that started about 30 minutes time after eating; and about 4 and half hours before presentation. He has a history of coronary artery disease status post non-ST elevation myocardial infarction in January 2019. At that time he had 2 drug-eluting stents placed to the right coronary artery. In April 2019 he presented and underwent 2 drug-eluting stents placed to the circumflex artery as well as the obtuse marginal branch and the left anterior descending artery. A year later in December 2019 he had a drug-eluting stent placed to the proximal LAD, drug-eluting stent with in-stent stenosis to the right coronary artery and balloon angioplasty to the obtuse marginal branch as well as the first diagonal vessel. He also has a history of hypertension, hyperlipidemia, obstructive sleep apnea, anemia, and mild to moderate aortic stenosis. Because the pain got worse patient came to emergency department. He described the pain as aching and pressure. Walking made the pain worse. Patient vomited about 2 times and had relief from the pain. Also patient reports intermittent chest pain that started about 4-day before presentation and he has an appointment scheduled with his cardiology. He reports dyspnea on exertion, orthopnea and abdominal swelling. Gallbladder ultrasound displays a fatty liver. Gallbladder sludge. Asymmetric irregular though gallbladder wall thickening versus mass. CT scan of the abdomen pelvis-Cholelithiasis. Possible duodenal diverticula. Mild diverticulosis of the colon. Fatty density in the inguinal canals. MRI is pending 06/28/23 17:57: WBC 6.6, RBC 5.13, Hgb 15.5, Hct 50.5, MCV 98.4 H, MCH 30.2, MCHC 30.7 L, RDW Std Deviation 52.7 H, RDW Coeff of [place]hael 14.6, Plt Count 133 L, , BUN 26 H, Creatinine 1.69 H, Est GFR (MDRD) Total Bilirubin 2.70 H, AST 167 H, ALT 103 H, Alkaline Phosphatase 252 H, Troponin I High Sens 76, B-Natriuretic Peptide 587.8 H, To 06/29/23 00:05: Troponin I High Sens 85 H 06/29/23 02:00: Troponin I High Sens 83 H 06/29/23 05:21: Sodium 140, Potassium 3.8, Chloride 109 H, Carbon Dioxide 26.0, Anion Gap 5, BUN 25 H, Creatinine 1.56 H, Estim Creat Clear Calc 41.54, Est GFR (MDRD) Af Amer 56 L, Est GFR (MDRD) Non-Af 46 L, BUN/Creatinine Ratio 16.0, Glucose 140 H, Calcium 8.2 L, Total Bilirubin 4.70 H, AST 295 H, ALT 314 H, Alkaline Phosphatase 315 H, Troponin I High Sens 108 H, Lipase 222 H PFSH Medical History Abdominal pain Abnormal stress test (07/2022) Ambulates with cane Atherosclerosis of coronary artery without angina pectoris Bilateral lower extremity edema Cardiology follow-up encounter Chest pain Chronic HFrEF (heart failure with reduced ejection fraction) Chronic kidney disease Chronic kidney disease (CKD) COPD (chronic obstructive pulmonary disease) Dermatitis Diastolic dysfunction Elevated liver enzymes Essential (primary) hypertension Fatty liver Former smoker Gastric ulcer GI (gastrointestinal bleed) Gout Heart murmur History of CHF (congestive heart failure) History of heart attack History of non-ST elevation myocardial infarction (NSTEMI) (05/05/21) History of stress test Hyperlipidemia Ischemic cardiomyopathy Kidney stones Low iron Non-rheumatic aortic stenosis Obesity Obstructive sleep apnea Orthopnea Osteoarthritis Secondary pulmonary arterial hypertension Shortness of breath on exertion Type 2 diabetes mellitus Home Medications aspirin 81 mg tablet,delayed release (Adult Aspirin Regimen) 81 mg PO DAILY heart health 04/14/18 [History Last Taken 06/28/23] multivitamin (Daily Multi-Vitamin tablet) 1 tab PO DAILY vitamin 01/25/19 [History Last Taken 06/28/23] allopurinol 100 mg tablet 200 mg PO DAILYCM GOUT 08/03/22 [History Last Taken 06/28/23] pantoprazole 40 mg tablet,delayed release 40 mg PO DAILY ppi #90 tabs 08/11/22 [Rx Last Taken 06/28/23] glipizide 5 mg tablet 5 mg PO BID diabetes 09/15/22 [History Last Taken Unknown] carvedilol 12.5 mg tablet 12.5 mg PO BID blood pressure #180 tabs 12/01/22 [Rx Last Taken Unknown] furosemide 40 mg tablet 40 mg PO DAILY diuretic #90 tabs 02/26/23 [Rx Last Taken Unknown] nitroglycerin 0.4 mg sublingual tablet 0.4 mg sublingual Q5-15M PRN chest pain #25 tabs 06/09/23 [Rx Last Taken Unknown] atorvastatin 80 mg tablet 80 mg PO QHS anticholesterol 06/29/23 [History Last T aken Unknown] Allergy/AdvReac Type Severity Reaction Status Date / Time metformin AdvReac Elevated Verified 06/28/23 17:21 LDH and anion gap Family History Mother , Age 80 Diabetes Hypertension Father , Age 55, coma Diabetes Hypertension Sister Hypertension Brother Diabetes Hypertension Cancer, Onset Age: 50 prostate cancer CAD (coronary artery disease) Surgical History History of appendectomy History of cardiac catheterization History of coronary artery stent placement (01/24/20) History of esophagogastroduodenoscopy (EGD) History of herniorrhaphy History of left heart catheterization (07/13/22) History of tonsillectomy History of total knee replacement (TKR) Social History household members: children Smoking Status: Former smoker quit date: 01/31/11 alcohol intake: current alcohol intake frequency: holidays/special occasions only substance use type: does not use caffeine: Yes Type: coffee ROS Cardiovascular Cardiovascular: Reports chest pain Respiratory/Chest Respiratory/Chest: Reports shortness of breath at rest and shortness of breath with exertion Gastrointestinal Gastrointestinal: Reports abdominal pain, nausea and vomiting Physical Exam Const alert and oriented x3 HEENT normocephalic Resp normal respiratory effort Resp Narrative: Minimal crackles on the right base, mild left basal crackles. Cardio regular rate Extremity no pedal edema Lab / Micro Data 06/28/23 17:57 06/29/23 05:21 Labs: Laboratory Results - last 24 hr 06/28/23 17:57: WBC 6.6, RBC 5.13, Hgb 15.5, Hct 50.5, MCV 98.4 H, MCH 30.2, MCHC 30.7 L, RDW Std Deviation 52.7 H, RDW Coeff of Raphael 14.6, Plt Count 133 L, MPV 11.0, Immature Gran % (Auto) 0.500, Neut % (Auto) 87.7 H, Lymph % (Auto) 8.3 L, [place] % (Auto) 1.2, Eos % (Auto) 2.0, Baso % (Auto) 0.3, Absolute Neuts (auto) 5.8, Absolute Lymphs (auto) 0.55 L, Nucleated RBC % 0, Differential Comment SCANNED, Sodium 139, Potassium 3.9, Chloride 106, Carbon Dioxide 24.0, Anion Gap 9, BUN 26 H, Creatinine 1.69 H, Est GFR (MDRD) Af Amer 51 L, Est GFR (MDRD) Non- Af 42 L, BUN/Creatinine Ratio 15.4, Glucose 195 H, Calcium 8.6, Total Bilirubin 2.70 H, AST 167 H, ALT 103 H, Alkaline Phosphatase 252 H, Troponin I High Sens 76, B-Natriuretic Peptide 587.8 H, Total Protein 7.6, Albumin 3.4, Globulin 4.2, Albumin/Globulin Ratio 0.8 L, Lipase > 250 H 06/29/23 00:05: Troponin I High Sens 85 H 06/29/23 02:00: Troponin I High Sens 83 H 06/29/23 05:21: Sodium 140, Potassium 3.8, Chloride 109 H, Carbon Dioxide 26.0, Anion Gap 5, BUN 25 H, Creatinine 1.56 H, Estim Creat Clear Calc 41.54, Est GFR (MDRD) Af Amer 56 L, Est GFR (MDRD) Non-Af 46 L, BUN/Creatinine Ratio 16.0, Glucose 140 H, Calcium 8.2 L, Total Bilirubin 4.70 H, AST 295 H, ALT 314 H, Alkaline Phosphatase 315 H, Troponin I High Sens 108 H, B-Natriuretic Peptide 1354.7 H, Total Protein 6.6, Albumin 3.0 L, Globulin 3.6, Albumin/Globulin Ratio 0.8 L, Lipase 222 H 06/29/23 06:58: POC Glucose 148 H 06/29/23 11:43: POC Glucose 142 H 06/29/23 12:57: Troponin I High Sens 162 H* Micro: Microbiology 06/28/23 18:10 Nasal Secretion SARS-CoV-2 Antigen (Rapid) - Final Rhythm Strip Rhythm Strip: Sinus Rhythm Rate: 73 Ectopy: None Radiology Impression Gallbladder Ultrasound 06/28/23 18:01 IMPRESSION: Fatty liver. Gallbladder sludge. Asymmetric irregular though gallbladder wall thickening versus mass. Electronically Signed: Robbi Tapia DO at 20:49 EDT , Chest X-Ray 06/28/23 18:21 IMPRESSION: The cardiac silhouette is enlarged with slight central pulmonary vascular prominence. Electronically Signed: Robbi Tapia DO at 18:50 EDT , Abdomen/Pelvis CT 06/28/23 22:11 IMPRESSION: Cholelithiasis. Possible duodenal diverticula. Mild diverticulosis of the colon. Fatty density in the inguinal canals. Electronically Signed: Robbi Tapia DO at 22:58 EDT , Echocardiogram 06/28/23 23:04 Interpretation Summary The estimated ejection fraction is 40 %. [place] : Hypokinetic. There is evidence of diastolic dysfunction. Mild (1+) mitral valve insufficiency. Moderate aortic stenosis. Mild-Moderate (1-2+) aortic valve insufficiency. Ordering Physician: Hany Zacarias Referring Physician: Reg Zuñiga M.D. Performed By: Angela Young RCS 06/29/23 05:55 IMPRESSION: 1. Normal MR Cholangiopancreatography (MRCP). 2. Unremarkable noncontrasted MRI appearance of the abdomen. Electronically Signed: Leo Sharma ([place]), at 12:17 EDT Reading Location ID and State: / [place] , Service support , Assessment & Plan Assessment/Plan (1) Acute pancreatitis: QUALIFIERS: Pancreatitis type: biliary Acute pancreatitis complication: no infection or necrosis Qualified Code(s): K85.10 - Biliary acute pancreatitis without necrosis or infection (2) Elevated liver enzymes: PLAN: Plan 73 gentleman history of CAD status post non-ST segment elevation ME with PTCA and stents on antiplatelet therapy presents with worsening abdominal pain and discovered to have cholestatic hepatitis and pancreatitis likely secondary to underlying choledocholithiasis. He should undergo ERCP for evaluation on hepatobiliary system. He should also be on antibiotic therapy. We are awaiting clearance from anesthesia due to the fact that he has have increased troponins. Charges/Coding Visit Charges Inpatient E&M: 97368 Init Hosp L3
[2023-06-29 17:29] VITALS: BP 128/57; PULSE 70; RESP 16; TEMP 36.6; O2SAT 92
[2023-06-29] MEDS: Insulin Lispro 100 UNIT/ML INSULN.PEN SC (17:40)
[2023-06-29 18:00] LABS: Bedside Glucose 201 mg/dL (74-106)
[2023-06-29 20:01] VITALS: BP 137/72; PULSE 76; RESP 16; TEMP 36.9; O2SAT 95
[2023-06-29] MEDS: Morphine 4 MG/ML Syringe IV (20:03)
[2023-06-29] MEDS: Carvedilol 12.5 MG Tablet PO (22:19)
[2023-06-29] MEDS: Atorvastatin Calcium 80 MG Tablet PO (22:19)
[2023-06-29 23:47] VITALS: BMI 40.1
[2023-06-30] VITALS (27 sets, daily range): BP systolic 88–146; BP diastolic 55–115; PULSE 78–130; RESP 16–20; TEMP 36.4–36.9; O2SAT 91–97; BMI 40.4
[2023-06-30 00:03] LABS: Bedside Glucose 147 mg/dL (74-106)
[2023-06-30 05:34] LABS: Absolute Lymphocyte Count 0.54 X10^3/uL (0.83-4.51); Absolute Neutrophil Count 7.3 X10^3/uL (2.0-7.7); Basophil# 0.03 X10^3/uL; Basophil% 0.3 % (0-1); Eosinophil# 0.24 X10^3/uL; Eosinophils% 2.7 % (0-5); Hematocrit 42.7 % (40-54); Hemoglobin 13.3 g/dL (13.0-16.5); Lymphocyte # 0.54 X10^3/ul (0.83-4.51); Lymphocyte % 6.2 % (19-41); Mean Corp Hgb Conc 31.1 g/dL (32-36); Mean Corpuscular Hgb 30.1 pg (27.0-32.0); Mean Corpuscular Volume 96.6 fL (80-94); Mean Platelet Vol. 11.4 fl (6.2-12.0); Monocyte# 0.59 X10^3/uL; Monocyte% 6.7 % (0-10); NRBC Flagged by Analyzer 0 % (0-5); Neutrophil # 7.31 X10^3/uL (2.7-7.7); Neutrophil % 83.5 % (47-70); POSITIVE DIFFERENTIAL YES; Platelet Count 113 K/mm3 (150-450); RBC Distribution Width CV 14.9 % (11.6-14.6); RBC Distribution Width SD 53.1 fl (35.1-43.9); Red Blood Count 4.42 M/mm3 (4.6-6.2); White Blood Count 8.8 K/mm3 (4.4-11.0)
[2023-06-30 05:38] LABS: Differential Indicated SCAN CRITERIA MET
--- NOTE | 2023-06-30 05:43 | EKG12_ITS ---
Test Reason : AM EKG Blood Pressure : / mmHG Vent. Rate : 080 BPM Atrial Rate : 080 BPM P-R Int : 194 ms QRS Dur : 108 ms QT Int : 382 ms P-R-T Axes : 048 -09 102 degrees QTc Int : 440 ms Sinus rhythm with Premature atrial complexes Incomplete left bundle branch block Nonspecific ST and T wave abnormality Abnormal ECG When compared with ECG of 28-JUN-2023 17:23, MANUAL COMPARISON REQUIRED, DATA IS UNCONFIRMED Confirmed by REYNA MOYER, CINTHYA ([id number]), managing editor COLLIN MORENO ([id number]) on 08/16/2023 12:59:40 PM Referred By: Confirmed By:CINTHYA ORELLANA MD
--- NOTE | 2023-06-30 05:55 | EKG12_ITS ---
Test Reason : SOB Blood Pressure : / mmHG Vent. Rate : 071 BPM Atrial Rate : 071 BPM P-R Int : 164 ms QRS Dur : 108 ms QT Int : 418 ms P-R-T Axes : 014 -08 090 degrees QTc Int : 454 ms Normal sinus rhythm Incomplete left bundle branch block Left ventricular hypertrophy with repolarization abnormality ( R in aVL ) Abnormal ECG Confirmed by LINDSEY MILLER ([id number]), sports editor COLLIN MORENO ([id number]) on 07/09/2023 2:08:34 PM Referred By: BB/PL Confirmed By:LINDSEY MILLER
[2023-06-30 06:05] LABS: Differential Comment SCANNED
[2023-06-30 06:18] LABS: ALB/GLOB Ratio 0.8 RATIO (0.9-2.4); AST(SGOT) 108 U/L (15-37); Alanine Aminotransfer ALT/SGPT 206 U/L (16-61); Albumin, Serum 2.9 g/dL (3.2-5.0); Alkaline Phosphatase 290 U/L (45-117); Anion Gap 9 (5-15); BUN 22 mg/dL (7-18); BUN/Creat Ratio 13.7 RATIO (10-20); Calcium,Total 8.3 mg/dL (8.5-10.1); Chloride 105 mmol/L (98-107); Creatinine, Serum 1.61 mg/dL (0.70-1.30); EST Glomerular Filtration Rate 45 mL/min (>60); Est Glom Filt Rate - Afr Amer 54 mL/min (>60); Estimated Creatinine Clearance 40.25 ml/min; Globulin 3.8 g/dL (2.2-4.2); Glucose 143 mg/dL (74-106); Potassium 3.8 mmol/L (3.5-5.1); Protein, Total 6.7 g/dL (6.4-8.2); Sodium Level 138 mmol/L (136-145); Troponin-I HS 153 pg/mL (3.0-78.0)
[2023-06-30 07:26] LABS: Hemoglobin A1c 7.1 % (3.8-5.6)
[2023-06-30 07:51] LABS: Bedside Glucose 179 mg/dL (74-106)
[2023-06-30] MEDS: Carvedilol 12.5 MG Tablet PO ×2 (08:09→21:53)
--- NOTE | 2023-06-30 08:20 | EKG12_ITS ---
Test Reason : RHYTHM CHANGE Blood Pressure : / mmHG Vent. Rate : 125 BPM Atrial Rate : 000 BPM P-R Int : 000 ms QRS Dur : 102 ms QT Int : 330 ms P-R-T Axes : 000 -06 127 degrees QTc Int : 476 ms ATRIAL FIBRILLATION Cannot rule out Anterior infarct , age undetermined Abnormal ECG When compared with ECG of 30-JUN-2023 05:43, MANUAL COMPARISON REQUIRED, DATA IS UNCONFIRMED Confirmed by REYNA MOYER, CINTHYA ([id number]), editorial director COLLIN MORENO ([id number]) on 08/16/2023 12:51:53 PM Referred By: Confirmed By:CINTHYA ORELLANA MD
--- NOTE | 2023-06-30 08:47 | PN.SURG_ITS ---
Subjective Subjective Patient seen and examined during AM rounds he describes some soreness that has persisted from the day prior. He overall states that he is feeling better. He notes that he has been told he will go down for ERCP today at 330 this afternoon. Objective Data Objective Data Vital Signs: Vital Signs Temp Pulse Resp BP Pulse Ox O2 Del Method 97.9 F 130 H 16 110/73 94 Room Air 06/30/23 08:01 06/30/23 08:01 06/30/23 08:01 06/30/23 08:01 06/30/23 08:01 06/30/23 08:25 Oxygen Delivery Method Room Air Weight: 273 lb 9.498 oz Body Mass Index (BMI) 40.4 Intake & Output: Intake and Output for Last 24 Hours 06/28/23 06/29/23 06/30/23 23:59 23:59 23:59 Intake Total 1966.1966.08 50 / 50 Output Total 0 / 0 1250 / 1250 525 / 525 Balance 0 / 0 717.08 / 717.08 -475 / -475 Lab / Micro Data 06/30/23 04:46 06/30/23 04:46 Labs: Laboratory Results - last 24 hr 06/29/23 11:43: POC Glucose 142 H 06/29/23 12:57: Troponin I High Sens 162 H* 06/29/23 17:36: POC Glucose 201 H 06/29/23 23:41: POC Glucose 147 H 06/30/23 04:46: WBC 8.8, RBC 4.42 L, Hgb 13.3, Hct 42.7, MCV 96.6 H, MCH 30.1, MCHC 31.1 L, RDW Std Deviation 53.1 H, RDW Coeff of Raphael 14.9 H, Plt Count 113 L, MPV 11.4, Immature Gran % (Auto) 0.600, Neut % (Auto) 83.5 H, Lymph % (Auto) 6.2 L, [place] % (Auto) 6.7, Eos % (Auto) 2.7, Baso % (Auto) 0.3, Absolute Neuts (auto) 7.3, Absolute Lymphs (auto) 0.54 L, Nucleated RBC % 0, Differential Comment SCANNED, Sodium 138, Potassium 3.8, Chloride 105, Carbon Dioxide 24.0, Anion Gap 9, BUN 22 H, Creatinine 1.61 H, Estim Creat Clear Calc 40.25, Est GFR (MDRD) Af Amer 54 L, Est GFR (MDRD) Non-Af 45 L, BUN/Creatinine Ratio 13.7, Glucose 143 H, Hemoglobin A1c 7.1 H, Calcium 8.3 L, Total Bilirubin 6.10 H, AST 108 H, ALT 206 H, Alkaline Phosphatase 290 H, Troponin I High Sens 153 H*, Total Protein 6.7, Albumin 2.9 L, Globulin 3.8, Albumin/Globulin Ratio 0.8 L 06/30/23 06:27: POC Glucose 179 H Micro: Microbiology 06/28/23 18:10 Nasal Secretion SARS-CoV-2 Antigen (Rapid) - Final Radiography Diagnostic Testing: Radiology Impression Echocardiogram 06/28/23 23:04 Interpretation Summary The estimated ejection fraction is 40 %. [place] : Hypokinetic. There is evidence of diastolic dysfunction. Mild (1+) mitral valve insufficiency. Moderate aortic stenosis. Mild-Moderate (1-2+) aortic valve insufficiency. Ordering Physician: Hany Zacarias Referring Physician: Reg Zuñiga M.D. Performed By: Angela Young RCS 06/29/23 05:55 IMPRESSION: 1. Normal MR Cholangiopancreatography (MRCP). 2. Unremarkable noncontrasted MRI appearance of the abdomen. Electronically Signed: Leo Sharma ([place]), at 12:17 EDT , Rhythm Strip Rhythm Strip: Sinus Rhythm Rate: 73 Ectopy: None Physical Exam Eyes Sclera: sclera abnormal Positive for bilateral Cornea: other Other Details: Scleral icterus present GI GI Narrative: Nondistended, soft, tender to palpation in the right upper quadrant with negative Hallman sign. Assessment & Plan Assessment/Plan (1) Acute pancreatitis: QUALIFIERS: Pancreatitis type: biliary Acute pancreatitis complication: no infection or necrosis Qualified Code(s): K85.10 - Biliary acute pancreatitis without necrosis or infection (2) Elevated liver enzymes: (3) Biliary colic: (4) Acute exacerbation of CHF (congestive heart failure): PLAN: Plan This is a 73-year-old male with complex past medical history?inclusive of some recent chest discomfort?who presents with acute onset abdominal pain and evidence of acute pancreatitis, hepatitis, and abnormal gallbladder imaging. This constellation is suggestive of acute choledocholithiasis with gallstone pancreatitis, however, patient's common bile duct is remarkably normal in diameter with both CT and ultrasound imaging. Further, patient ultrasound was read as concerning for possible mass in the wall of the gallbladder. And lastly Mr. Brizuela presents with signs and symptoms of acute congestive heart failure exacerbation. Concerning his abnormal LFTs and abnormal gallbladder imaging, I requested an MRCP to attempt to better delineate whether or not he truly has concern for a gallbladder mass and if there is concern for choledocholithiasis. This study was obtained yesterday and showed only layering gallstones in the gallbladder?no mass and no evidence of CBD dilation. Given his LFTs, gastroenterology had an interest in performing ERCP yesterday, however, this endeavor was placed on hold until patient underwent cardiology evaluation. Cardiology did evaluate patient and deemed him to be low risk for both ERCP and cholecystectomy?if deemed necessary. We will await the results of ERCP now rescheduled for today. For now recommend the following: ? Continue empiric antibiotic coverage for enteric's given potential biliary obstruction ? Trend CMP and CBC ? N.p.o. with IV fluid support ? Follow-up results of ERCP Charges/Coding Visit Charges Inpatient E&M: 07654 Subs Hosp L2
--- NOTE | 2023-06-30 09:54 | PN.HOSP_ITS ---
Reason for Visit Reason for Visit: Diagnoses Atherosclerotic heart disease of [place] coronary artery with unspecified angina pectoris (06/28/23) Ischemic cardiomyopathy (06/28/23) Chronic systolic (congestive) heart failure (06/28/23) Heart failure, unspecified (06/28/23) Calculus of bile duct without cholangitis or cholecystitis without obstruction (06/28/23) Biliary acute pancreatitis without necrosis or infection (06/28/23) Chronic kidney disease, stage 3b (06/28/23) Abnormal levels of other serum enzymes (06/28/23) Encounter for preprocedural cardiovascular examination (06/28/23) Subjective Subjective Patient reports feeling slightly better than yesterday though still having the abdominal soreness/discomfort, no increased shortness of breath or swelling or other complaints voiced at this time Objective Data Objective Data Vital Signs: Vital Signs Temp Pulse Resp BP Pulse Ox O2 Del Method 97.9 F 130 H 16 110/73 94 Room Air 06/30/23 08:01 06/30/23 08:01 06/30/23 08:01 06/30/23 08:01 06/30/23 08:01 06/30/23 08:25 Oxygen Delivery Method Room Air Weight: 124.1 kg Body Mass Index (BMI) 40.4 Intake & Output: Intake and Output for Last 24 Hours 06/28/23 06/29/23 06/30/23 23:59 23:59 23:59 Intake Total 1966.1966.08 50 / 50 Output Total 0 / 0 1250 / 1250 525 / 525 Balance 0 / 0 717.08 / 717.08 -475 / -475 Lab / Micro Data 06/30/23 04:46 06/30/23 04:46 Labs: Laboratory Results - last 24 hr 06/29/23 11:43: POC Glucose 142 H 06/29/23 12:57: Troponin I High Sens 162 H* 06/29/23 17:36: POC Glucose 201 H 06/29/23 23:41: POC Glucose 147 H 06/30/23 04:46: WBC 8.8, RBC 4.42 L, Hgb 13.3, Hct 42.7, MCV 96.6 H, MCH 30.1, MCHC 31.1 L, RDW Std Deviation 53.1 H, RDW Coeff of [place]hael 14.9 H, Plt Count 113 L, MPV 11.4, Immature Gran % (Auto) 0.600, Neut % (Auto) 83.5 H, Lymph % (Auto) 6.2 L, [place] % (Auto) 6.7, Eos % (Auto) 2.7, Baso % (Auto) 0.3, Absolute Neuts (auto) 7.3, Absolute Lymphs (auto) 0.54 L, Nucleated RBC % 0, Differential Comment SCANNED, Sodium 138, Potassium 3.8, Chloride 105, Carbon Dioxide 24.0, Anion Gap 9, BUN 22 H, Creatinine 1.61 H, Estim Creat Clear Calc 40.25, Est GFR (MDRD) Af Amer 54 L, Est GFR (MDRD) Non-Af 45 L, BUN/Creatinine Ratio 13.7, Glucose 143 H, Hemoglobin A1c 7.1 H, Calcium 8.3 L, Total Bilirubin 6.10 H, AST 108 H, ALT 206 H, Alkaline Phosphatase 290 H, Troponin I High Sens 153 H*, Total Protein 6.7, Albumin 2.9 L, Globulin 3.8, Albumin/Globulin Ratio 0.8 L 06/30/23 06:27: POC Glucose 179 H Micro: Microbiology 06/28/23 18:10 Nasal Secretion SARS-CoV-2 Antigen (Rapid) - Final Radiography Diagnostic Testing: Radiology Impression Echocardiogram 06/28/23 23:04 Interpretation Summary The estimated ejection fraction is 40 %. [place] : Hypokinetic. There is evidence of diastolic dysfunction. Mild (1+) mitral valve insufficiency. Moderate aortic stenosis. Mild-Moderate (1-2+) aortic valve insufficiency. Ordering Physician: Hany Zacarias Referring Physician: Reg Zuñiga M.D. Performed By: Angela Young RCS 06/29/23 05:55 IMPRESSION: 1. Normal MR Cholangiopancreatography (MRCP). 2. Unremarkable noncontrasted MRI appearance of the abdomen. Electronically Signed: Leo Sharma ([place]), at 12:17 EDT Reading Location ID and State: [address] [place] [address] , Service support , Rhythm Strip Rhythm Strip: Sinus Rhythm Rate: 73 Ectopy: None Physical Exam Narrative General: Alert, oriented, no apparent distress HEENT: Atraumatic, normocephalic Eyes: Has some scleral icterus, extraocular movements grossly intact Neck: Supple Respiratory: Some fine crackles at the bases, normal respiratory effort Cardiovascular: Irregularly irregular GI: Somewhat protuberant, slightly tender diffusely, no rebound, guarding, rigidity Extremities: No significant edema Musculoskeletal: Moving all extremities Neuro: No overt focal neurological deficits Skin: No rashes appreciated Psych: Cooperative Assessment & Plan Assessment/Plan (1) Acute pancreatitis: QUALIFIERS: Pancreatitis type: biliary Acute pancreatitis c omplication: no infection or necrosis Qualified Code(s): K85.10 - Biliary acute pancreatitis without necrosis or infection (2) Elevated liver enzymes: (3) Chronic HFrEF (heart failure with reduced ejection fraction): (4) Chronic kidney disease: QUALIFIERS: Chronic kidney disease stage: stage 3 (moderate) Chronic kidney disease stage 3 subtype: stage 3b (GFR 30-44) Qualified Code(s): N18.32 - Chronic kidney disease, stage 3b PLAN: Plan #Abdominal pain secondary to acute on chronic gallstone pancreatitis -Patient with a lipase level of more than [address] abdomen pelvis with contrast showed normal pancreas patient also has symptoms consistent with pancreatitis so we will treat as pancreatitis, especially as patient has gallstones, epigastric pain and right upper quadrant pain. -Patient kept n.p.o. except ice and sips with meds. -Morphine as needed for pain -06/29: MRCP ordered, discussed with GI and is felt he needs ERCP however given his cardiac history, elevated troponin, elevated BNP and recent chest pain cardiology evaluation advised prior to patient undergoing anesthesia, cardiology consulted especially given his recent need for nitroglycerin use and high risk for surgery to help optimize patient medically to minimize risk is much as possible. Echocardiogram ordered and pending -06/30: MRCP unremarkable, troponin has now down trended so plan has been for ERCP this afternoon, did have accelerated heart rate this a.m. which will be treated with Cardizem per cards, continue Zosyn #Accelerated heart rate -Appears to be A-fib on EKG, on Coreg, will be started on Cardizem per c ardiology #Hyperbilirubinemia Bilirubin level of 2.70. Of note his bilirubin on 06/17/2023 today was 0.8. Liver chemistry is elevated; trend. Ultrasound gallbladder with gallbladder sludge; asymmetric irregular tough gallbladder wall thickening versus mass. With history of heart failure counseled use of IV fluids. Placed on normal saline 75 MLS per hour. ED doctor discussed case with general surgery who recommended MRCP. MRCP ordered. General surgery consult. -06/29: Liver function and bili worsened today with AST 295, ALT 314, alk phos 315 and total bili up to 4.7. GI to plan for ERCP after cardiac optimization, discussed with surgery and it was advised MRCP either way as if patient has any mass he will need hepatobiliary surgery if not we can consider further management here post ERCP -06/30: Increased bili with downtrending LFTs, see above #Chronic heart failure with reduced ejection fraction -Impression of chest x-ray by radiology: The Left is enlarged with slight central pulmonary vascular prominence. -Echocardiogram on 11/16/2022 showed ejection fraction 45%. [place] severely hypokinetic; moderate-severe hypokinetic. Mild eccentric mitral valve insufficiency. Mild aortic stenosis. -Echocardiogram on 04/17/2021 also showed EF of 45% -06/29: Patient with elevated BNP but no respiratory distress and vitally stable, will repeat echocardiogram, daily weights, I's and O's. Patient's Lasix were held, given increase in BNP and hemodynamic stability we will hold fluids pendi ng further evaluation -06/30: Continue to monitor fluid status, does not appear to be fluid overloaded at this time #Elevated troponin -Suspect this is all due to myocardial strain secondary to underlying illness however has been having to take his nitroglycerin recently -Troponin 76 with repeat 85 and subsequent 83, unclear why fourth troponin was checked but it was 108. Do not suspect ACS as cause at present -We will check echocardiogram -Continue fluids but monitor carefully due to history of heart failure date cardiology consulted especially given recent cardiac complaints -06/30: Did downtrend this a.m., still suspect that this is all demand given his current illness #History of coronary artery disease -Does have history of stent placement -Continue beta-trav and statin -Follows with cardiology on outpatient basis -06/30: Continue current management #Type 2 diabetes mellitus -Glucose checks and sliding scale insulin #CKD stage IIIb Stable Trend CMP -06/29: Appears to be at baseline, avoid nephrotoxic agents, continue fluids DVT prophylaxis SCDs as patient is a surgical candidate Time spent in the patient's overall evaluation,decision-making process, review of diagnostic data, adjustment of management, discussion with other providers, nursing nursing and ancillary staff involved in patient's care documentation, 51 minutes. Charges/Coding Visit Charges Inpatient E&M: 87485 Subs Hosp L2
[2023-06-30 13:50] LABS: Bedside Glucose 123 mg/dL (74-106)
--- NOTE | 2023-06-30 15:25 | RAD_ITS ---
ERCP INDICATION: Pain. EXAMINATION/TECHNIQUE: Under fluoroscopic guidance, the common bile duct was cannulated with contrast injection and final placement of a biliary stent. Total Fluoroscopic Time: 39.6 seconds AND number of Fluoroscopic Images: 9 COMPARISON: None. FINDINGS: Contrast injection through the biliary duct reveals borderline distention of the common bile duct. No significant intrahepatic biliary distention seen. RAD/ERCP Biliary/Pancreas IMPRESSION: ERCP reveals borderline distention of the common bile duct with final placement of a biliary stent. Electronically Signed: Jackie Valdez MD at 16:44 EDT ,
--- NOTE | 2023-06-30 15:53 | OP.CCLET_ITS ---
06/30/2023 [place] Figueroa MD Re : ERCP procedure for Ronnie Melgar Dear Dr. Figueroa This procedure was performed on Friday, June 30, 2023. My impressions and recommendations are as follows: Impressions : - Choledocholithiasis was found. Complete removal was accomplished by biliary sphincterotomy and balloon extraction. - A biliary sphincterotomy was performed. - The biliary tree was swept. - The upper third of the main bile duct was successfully dilated. - One temporary stent was placed into the common bile duct. Recommendations : My findings are described in the full procedure note, which is enclosed. If I can be of further assistance, please feel free to contact me at . Sincerely, Jose Maria Mcgill, 06/30/2023 3:52:43 PM This report has been signed electronically.
--- NOTE | 2023-06-30 15:53 | OP.ERCP_ITS ---
Patient Name: Ronnie Melgar Procedure Date: 06/30/2023 2:48 PM Date of : 1950 Age: 73 Procedure: ERCP Indications: Common bile duct stone(s), Jaundice, Elevated liver enzymes Providers: Jose Maria Mcgill DO Medicines: Monitored Anesthesia Care Patient Profile: This is a 73 year old male. Refer to note in patient chart for documentation of history and physical. Patient has symptoms of acute jaundice. This patient has no history of previous ERCP. Complications: No immediate complications. Procedure: Pre-Anesthesia Assessment: - Prior to the procedure, a History and Physical was performed, and patient medications and allergies were reviewed. The patient is competent. The risks and benefits of the procedure and the sedation options and risks were discussed with the patient. All questions were answered and informed consent was obtained. Patient identification and proposed procedure were verified by the physician in the pre-procedure area. Mental Status Examination: alert and oriented. Airway Examination: normal oropharyngeal airway and neck mobility. Respiratory Examination: clear to auscultation. CV Examination: normal. Prophylactic Antibiotics: The patient does not require prophylactic antibiotics. Prior Anticoagulants: The patient has taken no anticoagulant or antiplatelet agents. ASA Grade Assessment: III - A patient with severe systemic disease. After reviewing the risks and benefits, the patient was deemed in satisfactory condition to undergo the procedure. The anesthesia plan was to use general anesthesia. Immediately prior to administration of medications, the patient was re-assessed for adequacy to receive sedatives. The heart rate, respiratory rate, oxygen saturations, blood pressure, adequacy of pulmonary ventilation, and response to care were monitored throughout the procedure. The physical status of the patient was re-assessed after the procedure. After obtaining informed consent, the scope was passed under direct vision. Throughout the procedure, the patient's blood pressure, pulse, and oxygen saturations were monitored continuously. The Duodenoscope was introduced through the mouth, and advanced to the duodenum and used to inject contrast into the bile duct. The ERCP was accomplished without difficulty. The patient tolerated the procedure well. Scope In: 3:36:57 PM Scope Out: 3:46:14 PM Total Procedure Duration Time 0 hours 9 minutes 17 seconds Findings: The esophagus was successfully intubated under direct vision. The scope was advanced to a normal major papilla in the descending duodenum without detailed examination of the pharynx, larynx and associated structures, and upper GI tract. The upper GI tract was grossly normal. The bile duct was deeply cannulated with the short-nosed traction sphincterotome. Contrast was injected. I personally interpreted the bile duct images. There was brisk flow of contrast through the ducts. Image quality was excellent. Contrast extended to the entire biliary tree. Placement of a long 0.025 inch Jagwire into the biliary tree was attempted. This passed successfully. A 5 mm biliary sphincterotomy was made with a braided traction (standard) sphincterotome using ERBE electrocautery. The sphincterotomy oozed blood. To discover objects, the biliary tree was swept with a 12 mm balloon starting at the bifurcation. Sludge was swept from the duct. All stones were removed. Dilation of the upper third of the main bile duct with 5-7-8.5 Fr catheter dilator was successful. One 10 Fr by 7 cm transpapillary temporary stent was placed 5 cm into the common bile duct. Bile flowed through the stent. The stent was in good position. Impression: - Choledocholithiasis was found. Complete removal was accomplished by biliary sphincterotomy and balloon extraction. - A biliary sphincterotomy was performed. - The biliary tree was swept. - The upper third of the main bile duct was successfully dilated. - One temporary stent was placed into the common bile duct. Procedure Code(s): --- Professional --- 07337, Endoscopic retrograde cholangiopancreatography (ERCP); with placement of endoscopic stent into biliary or pancreatic duct, including pre- and post-dilation and guide wire passage, when performed, including sphincterotomy, when performed, each stent 30483, Endoscopic retrograde cholangiopancreatography (ERCP); with removal of calculi/debris from biliary/pancreatic duct(s) 42387, 26, Endoscopic catheterization of the biliary ductal system, radiological supervision and interpretation CPT copyright 2021 [employer]. All rights reserved. The codes documented in this report are preliminary and upon paint mixer hand review may be revised to meet current compliance requirements. Jose Maria Mcgill DO 06/30/2023 3:52:43 PM This report has been signed electronically. Number of Addenda: 0 Note Initiated On: 06/30/2023 2:48 PM
[2023-06-30 17:44] LABS: Bedside Glucose 157 mg/dL (74-106)
[2023-06-30 18:38] LABS: Bedside Glucose 142 mg/dL (74-106)
[2023-06-30] MEDS: MELATONIN 3 MG TABLET PO (21:53)
[2023-06-30] MEDS: Atorvastatin Calcium 80 MG Tablet PO (21:53)
[2023-06-30] MEDS: Nystatin Powder 15gm Bottle 1 APPLIC TOPICAL (22:00)
[2023-07-01] VITALS (15 sets, daily range): BP systolic 104–161; BP diastolic 53–103; PULSE 67–94; RESP 16–20; TEMP 36.6–36.7; O2SAT 94–97
[2023-07-01 05:51] LABS: Absolute Lymphocyte Count 0.48 X10^3/uL (0.83-4.51); Absolute Neutrophil Count 4.7 X10^3/uL (2.0-7.7); Basophil# 0.02 X10^3/uL; Basophil% 0.4 % (0-1); Eosinophils% 1.8 % (0-5); Hematocrit 42.6 % (40-54); Hemoglobin 13.3 g/dL (13.0-16.5); Lymphocyte # 0.48 X10^3/ul (0.83-4.51); Lymphocyte % 8.4 % (19-41); Mean Corp Hgb Conc 31.2 g/dL (32-36); Mean Corpuscular Volume 96.2 fL (80-94); Mean Platelet Vol. 11.1 fl (6.2-12.0); Monocyte# 0.42 X10^3/uL; Monocyte% 7.4 % (0-10); NRBC Flagged by Analyzer 0 % (0-5); Neutrophil # 4.65 X10^3/uL (2.7-7.7); Neutrophil % 81.5 % (47-70); POSITIVE DIFFERENTIAL YES; Platelet Count 104 K/mm3 (150-450); RBC Distribution Width CV 14.9 % (11.6-14.6); Red Blood Count 4.43 M/mm3 (4.6-6.2); White Blood Count 5.7 K/mm3 (4.4-11.0)
[2023-07-01 05:52] LABS: Differential Indicated SCAN CRITERIA MET
[2023-07-01 06:08] LABS: Differential Comment SCANNED
[2023-07-01 06:40] LABS: ALB/GLOB Ratio 0.7 RATIO (0.9-2.4); AST(SGOT) 59 U/L (15-37); Alanine Aminotransfer ALT/SGPT 145 U/L (16-61); Albumin, Serum 2.8 g/dL (3.2-5.0); Alkaline Phosphatase 262 U/L (45-117); Anion Gap 7 (5-15); BUN 24 mg/dL (7-18); BUN/Creat Ratio 16.6 RATIO (10-20); Calcium,Total 8.2 mg/dL (8.5-10.1); Chloride 106 mmol/L (98-107); Creatinine, Serum 1.45 mg/dL (0.70-1.30); EST Glomerular Filtration Rate 51 mL/min (>60); Est Glom Filt Rate - Afr Amer 61 mL/min (>60); Globulin 3.8 g/dL (2.2-4.2); Glucose 146 mg/dL (74-106); Potassium 3.8 mmol/L (3.5-5.1); Protein, Total 6.6 g/dL (6.4-8.2); Sodium Level 138 mmol/L (136-145)
--- NOTE | 2023-07-01 08:42 | PCM.PN.HOSP ---
Reason for Visit Reason for Visit: Diagnoses Atherosclerotic heart disease of [place] coronary artery with unspecified angina pectoris (06/28/23) Ischemic cardiomyopathy (06/28/23) Chronic systolic (congestive) heart failure (06/28/23) Heart failure, unspecified (06/28/23) Calculus of bile duct without cholangitis or cholecystitis without obstruction (06/28/23) Biliary acute pancreatitis without necrosis or infection (06/28/23) Chronic kidney disease, stage 3b (06/28/23) Abnormal levels of other serum enzymes (06/28/23) Encounter for preprocedural cardiovascular examination (06/28/23) Subjective Subjective Reports feeling similar to yesterday, has been coughing some but does not feel more short of breath, not having any chest pain, just feels like he has not slept enough Objective Data Objective Data Vital Signs: Vital Signs Temp Pulse Resp BP Pulse Ox O2 Del Method O2 Flow Rate 98.0 F 67 18 111/60 96 Nasal Cannula 2 07/01/23 06:00 07/01/23 06:00 07/01/23 06:00 07/01/23 06:00 07/01/23 06:00 07/01/23 06:00 07/01/23 06:00 Oxygen Flow Rate (L/min) 2 Oxygen Delivery Method Nasal Cannula Weight: 124.1 kg Body Mass Index (BMI) 40.4 Intake & Output: Intake and Output for Last 24 Hours 06/29/23 06/30/23 07/01/23 23:59 23:59 23:59 Intake Total 1967.08 / 1967.08 600.88 / 710.88 226.17 / 226.17 Output Total 1250 / 1250 1325 / 1575 450 / 450 Balance 717.08 / 717.08 -724.12 / -864.12 -223.83 / -223.83 Lab / Micro Data 07/01/23 04:39 07/01/23 04:39 Labs: Laboratory Results - last 24 hr 06/30/23 13:22: POC Glucose 123 H 06/30/23 17:06: POC Glucose 157 H 06/30/23 18:17: POC Glucose 142 H 07/01/23 04:39: WBC 5.7, RBC 4.43 L, Hgb 13.3, Hct 42.6, MCV 96.2 H, MCH 30.0, MCHC 31.2 L, RDW Std Deviation 53.0 H, RDW Coeff of Raphael 14.9 H, Plt Count 104 L, MPV 11.1, Immature Gran % (Auto) 0.500, Neut % (Auto) 81.5 H, Lymph % (Auto) 8.4 L, Mathews % (Auto) 7.4, Eos % (Auto) 1.8, Baso % (Auto) 0.4, Absolute Neuts (auto) 4.7, Absolute Lymphs (auto) 0.48 L, Nucleated RBC % 0, Differential Comment SCANNED, Sodium 138, Potassium 3.8, Chloride 106, Carbon Dioxide 25.0, Anion Gap 7, BUN 24 H, Creatinine 1.45 H, Estim Creat Clear Calc 44.70, Est GFR (MDRD) Af Amer 61, Est GFR (MDRD) Non-Af 51 L, BUN/Creatinine Ratio 16.6, Glucose 146 H, Calcium 8.2 L, Total Bilirubin 5.20 H, AST 59 H, ALT 145 H, Alkaline Phosphatase 262 H, Total Protein 6.6, Albumin 2.8 L, Globulin 3.8, Albumin/Globulin Ratio 0.7 L Micro: Microbiology 06/28/23 18:10 Nasal Secretion SARS-CoV-2 Antigen (Rapid) - Final Radiography Diagnostic Testing: Radiology Impression Endo Retro Cholangiopancreatogram 06/30/23 15:25 IMPRESSION: ERCP reveals borderline distention of the common bile duct with final placement of a biliary stent. Electronically Signed: Jackie Valdez MD at 16:44 EDT , Rhythm Strip Rhythm Strip: Sinus Rhythm Rate: 73 Ectopy: None Physical Exam Narrative General: Alert, oriented, no apparent distress HEENT: Atraumatic, normocephalic Eyes: Has some scleral icterus, extraocular movements grossly intact Neck: Supple Respiratory: Some fine crackles at the bases, normal respiratory effort Cardiovascular: Irregularly irregular, not tachycardic GI: Somewhat protuberant, slightly tender diffusely, no rebound, guarding, rigidity Extremities: No significant edema Musculoskeletal: Moving all extremities Neuro: No overt focal neurological deficits Skin: No rashes appreciated Psych: Cooperative Assessment & Plan Assessment/Plan (1) Acute pancreatitis: QUALIFIERS: Acute pancreatitis complication: no infection or necrosis Pancreatitis type: biliary Qualified Code(s): K85.10 - Biliary acute pancreatitis without necrosis or infection (2) Elevated liver enzymes: (3) Chronic HFrEF (heart failure with reduced ejection fraction): (4) Chronic kidney disease: QUALIFIERS: Chronic kidney disease stage: stage 3 (moderate) Chronic kidney disease stage 3 subtype: stage 3b (GFR 30-44) Qualified Code(s): N18.32 - Chronic kidney disease, stage 3b PLAN: Plan #Abdominal pain secondary to acute on chronic gallstone pancreatitis -Patient with a lipase level of more than [address] abdomen pelvis with contrast showed normal pancreas patient also has symptoms consistent with pancreatitis so we will treat as pancreatitis, especially as patient has gallstones, epigastric pain and right upper quadrant pain. -Patient kept n.p.o. except ice and sips with meds. -Morphine as needed for pain -06/29: MRCP ordered, discussed with GI and is felt he needs ERCP however given his cardiac history, elevated troponin, elevated BNP and recent chest pain cardiology evaluation advised prior to patient undergoing anesthesia, cardiology consulted especially given his recent need for nitroglycerin use and high risk for surgery to help optimize patient medically to minimize risk is much as possible. Echocardiogram ordered and pending -06/30: MRCP unremarkable, troponin has now down trended so plan has been for ERCP this afternoon, did have accelerated heart rate this a.m. which will be treated with Cardizem per cards, continue Zosyn -07/01: Status post ERCP with choledocholithiasis found with biliary sphincterotomy and balloon extraction and biliary tree sweep with upper third of the main bile duct dilated with temporary stent. Patient for cholecystectomy this afternoon if doing well #Accelerated heart rate -Appears to be A-fib on EKG, on Coreg, will be started on Cardizem per cardiology -07/01: Rate controlled with diltiazem and carvedilol, continue to optimize medically, cardiology following #Hyperbilirubinemia Bilirubin level of 2.70. Of note his bilirubin on 06/17/2023 today was 0.8. Liver chemistry is elevated; trend. Ultrasound gallbladder with gallbladder sludge; asymmetric irregular tough gallbladder wall thickening versus mass. With history of heart failure counseled use of IV fluids. Placed on normal saline 75 MLS per hour. ED doctor discussed case with general surgery who recommended MRCP. MRCP ordered. General surgery consult. -06/29: Liver function and bili worsened today with AST 295, ALT 314, alk phos 315 and total bili up to 4.7. GI to plan for ERCP after cardiac optimization, discussed with surgery and it was advised MRCP either way as if patient has any mass he will need hepatobiliary surgery if not we can consider further management here post ERCP -06/30: Increased bili with downtrending LFTs, see above -07/01: LFTs downtrending from yesterday after ERCP, patient for lap dhiraj this afternoon #Chronic heart failure with reduced ejection fraction -Impression of chest x-ray by radiology: The Left is enlarged with slight central pulmonary vascular prominence. -Echocardiogram on 11/16/2022 showed ejection fraction 45%. Bear severely hypokinetic; moderate-severe hypokinetic. Mild eccentric mitral valve insufficiency. Mild aortic stenosis. -Echocardiogram on 04/17/2021 also showed EF of 45% -06/29: Patient with elevated BNP but no respiratory distress and vitally stable, will repeat echocardiogram, daily weights, I's and O's. Patient's Lasix were held, given increase in BNP and hemodynamic stability we will hold fluids pending further evaluation -06/30: Continue to monitor fluid status, does not appear to be fluid overloaded at this time -07/01: Weight up very slightly from admission but vitally stable and not overtly overloaded, continue to monitor #Elevated troponin -Suspect this is all due to myocardial strain secondary to underlying illness however has been having to take his nitroglycerin recently -Troponin 76 with repeat 85 and subsequent 83, unclear why fourth troponin was checked but it was 108. Do not suspect ACS as cause at present -We will check echocardiogram -Continue fluids but monitor carefully due to history of heart failure date cardiology consulted especially given recent cardiac complaints -06/30: Did downtrend this a.m., still suspect that this is all demand given his current illness #History of coronary artery disease -Does have history of stent placement -Continue beta-rtav and statin -Follows with cardiology on outpatient basis -06/30: Continue current management #Type 2 diabetes mellitus -Glucose checks and sliding scale insulin #CKD stage IIIb Stable Trend CMP -06/29: Appears to be at baseline, avoid nephrotoxic agents, continue fluids DVT prophylaxis SCDs as patient is a surgical candidate Time spent in the patient's overall evaluation,decision-making process, review of diagnostic data, adjustment of management, discussion with other providers, nursing nursing and ancillary staff involved in patient's care documentation, 40 minutes. Charges/Coding Visit Charges Inpatient E&M: 61951 Subs Hosp L2
--- NOTE | 2023-07-01 09:27 | PN.SURG_ITS ---
Subjective Subjective Patient seen and examined during AM rounds. He is found sitting out of bed in a chair. He states that he has been here for the last 5 hours. He reports that he is feeling so-so. He does confirm return of an appetite. He denies abdominal discomfort of the same intensity with which he presented. Objective Data Objective Data Vital Signs: Vital Signs Temp Pulse Resp BP Pulse Ox O2 Del Method O2 Flow Rate 98.0 F 67 18 111/60 96 Nasal Cannula 2 07/01/23 06:00 07/01/23 06:00 07/01/23 06:00 07/01/23 06:00 07/01/23 06:00 07/01/23 06:00 07/01/23 06:00 Oxygen Flow Rate (L/min) 2 Oxygen Delivery Method Nasal Cannula Weight: 273 lb 9.498 oz Body Mass Index (BMI) 40.4 Intake & Output: Intake and Output for Last 24 Hours 06/29/23 06/30/23 07/01/23 23:59 23:59 23:59 Intake Total 1967.08 / 1967.08 600.88 / 710.88 226.17 / 226.17 Output Total 1250 / 1250 1325 / 1575 450 / 450 Balance 717.08 / 717.08 -724.12 / -864.12 -223.83 / -223.83 Lab / Micro Data 07/01/23 04:39 07/01/23 04:39 Labs: Laboratory Results - last 24 hr 06/30/23 13:22: POC Glucose 123 H 06/30/23 17:06: POC Glucose 157 H 06/30/23 18:17: POC Glucose 142 H 07/01/23 04:39: WBC 5.7, RBC 4.43 L, Hgb 13.3, Hct 42.6, MCV 96.2 H, MCH 30.0, MCHC 31.2 L, RDW Std Deviation 53.0 H, RDW Coeff of Raphael 14.9 H, Plt Count 104 L, MPV 11.1, Immature Gran % (Auto) 0.500, Neut % (Auto) 81.5 H, Lymph % (Auto) 8.4 L, Kemper % (Auto) 7.4, Eos % (Auto) 1.8, Baso % (Auto) 0.4, Absolute Neuts (auto) 4.7, Absolute Lymphs (auto) 0.48 L, Nucleated RBC % 0, Differential Comment SCANNED, Sodium 138, Potassium 3.8, Chloride 106, Carbon Dioxide 25.0, Anion Gap 7, BUN 24 H, Creatinine 1.45 H, Estim Creat Clear Calc 44.70, Est GFR (MDRD) Af Amer 61, Est GFR (MDRD) Non-Af 51 L, BUN/Creatinine Ratio 16.6, Glucose 146 H, C alcium 8.2 L, Total Bilirubin 5.20 H, AST 59 H, ALT 145 H, Alkaline Phosphatase 262 H, Total Protein 6.6, Albumin 2.8 L, Globulin 3.8, Albumin/Globulin Ratio 0.7 L Micro: Microbiology 06/28/23 18:10 Nasal Secretion SARS-CoV-2 Antigen (Rapid) - Final Radiography Diagnostic Testing: Radiology Impression Endo Retro Cholangiopancreatogram 06/30/23 15:25 IMPRESSION: ERCP reveals borderline distention of the common bile duct with final placement of a biliary stent. Electronically Signed: Jackie Valdez MD at 16:44 EDT , Rhythm Strip Rhythm Strip: Sinus Rhythm Rate: 73 Ectopy: None Physical Exam Const oriented x3 and no apparent distress GI GI Narrative: Mildly distended, soft, tender to palpation in the right upper quadrant with negative Hallman sign Assessment & Plan Assessment/Plan (1) Acute pancreatitis: QUALIFIERS: Pancreatitis type: biliary Acute pancreatitis complication: no infection or necrosis Qualified Code(s): K85.10 - Biliary acute pancreatitis without necrosis or infection (2) Elevated liver enzymes: (3) Biliary colic: (4) Acute exacerbation of CHF (congestive heart failure): PLAN: Plan This is a 73-year-old male with complex past medical history?inclusive of some recent chest discomfort?who presents with acute onset abdominal pain and evidence of acute pancreatitis, hepatitis, and abnormal gallbladder imaging. This constellation is suggestive of acute choledocholithiasis with gallstone pancreatitis, however, patient's common bile duct is remarkably normal in diameter with CT, ultrasound, and MR imaging. Further, patient ultrasound was read as concerning for possible mass in the wall of the gallbladder. MRCP, however, showed a normal gallbladder wall with simple layering of gallstones. Given patient's presentation with evidence of acute congestive heart failure exacerbation, cardiology evaluated patient and deemed him to be low risk for both ERCP and cholecystectomy?if deemed necessary. ERCP was undertaken yesterday and did confirm choledocholithiasis. With this finding, and cardiology's approval of patient's procedural risk, I am recommending pursuing a laparoscopic cholecystectomy with intraoperative cholangiogram. Mr. Melgar is provided his verbal consent and arrangements have been made through the operating room. We are tentatively on the schedule for 2:30-2:45 start time. ? Continue empiric antibiotic coverage for enteric's given potential biliary obstruction ? N.p.o. with IV fluid support ? Cholecystectomy with intraoperative cholangiography planned for later today, please obtain consent Charges/Coding Visit Charges Inpatient E&M: 45483 Subs Hosp L2
[2023-07-01] MEDS: Nystatin Powder 15gm Bottle 1 APPLIC TOPICAL ×2 (10:57→22:13)
[2023-07-01] MEDS: Carvedilol 12.5 MG Tablet PO (10:58)
[2023-07-01] MEDS: Allopurinol 100 MG Tablet 200 MG PO (10:58)
[2023-07-01] MEDS: Insulin Lispro 100 UNIT/ML INSULN.PEN SC (11:03)
[2023-07-01 11:25] LABS: Bedside Glucose 158 mg/dL (74-106)
[2023-07-01 14:59] LABS: Troponin-I HS 121 pg/mL (3.0-78.0)
--- NOTE | 2023-07-01 16:49 | NURSING ---
returned from ac surgery not done today will be done @ 629 tomorrow am,pt informed family per phone
[2023-07-01 17:38] LABS: Bedside Glucose 128 mg/dL (74-106)
[2023-07-01] MEDS: Metoprolol Tartrate 50 MG Tablet 75 MG PO (18:24)
--- NOTE | 2023-07-01 18:34 | EX.PCM.PN.GI ---
Subjective Subjective Patient underwent an ERCP yesterday for obstructive jaundice. He denies any abdominal pain, cramping or abdominal distention today. He is scheduled for cholecystectomy today. Objective Data Objective Data Vital Signs: Vital Signs Temp Pulse Resp BP Pulse Ox O2 Del Method O2 Flow Rate 97.8 F 83 16 113/67 97 Nasal Cannula 2 07/01/23 08:00 07/01/23 18:24 07/01/23 11:00 07/01/23 18:24 07/01/23 11:00 07/01/23 11:00 07/01/23 11:00 Oxygen Flow Rate (L/min) 2 Oxygen Delivery Method Nasal Cannula Weight: 273 lb 9.498 oz Body Mass Index (BMI) 40.4 Intake & Output: Intake and Output for Last 24 Hours 06/29/23 06/30/23 07/01/23 23:59 23:59 23:59 Intake Total 1967.08 / 1967.08 600.88 / 710.88 477.17 / 477.17 Output Total 1250 / 1250 1325 / 1575 1200 / 1200 Balance 717.08 / 717.08 -724.12 / -864.12 -722.83 / -722.83 Lab / Micro Data 07/01/23 04:39 07/01/23 04:39 Labs: Laboratory Results - last 24 hr 06/30/23 18:17: POC Glucose 142 H 07/01/23 04:39: WBC 5.7, RBC 4.43 L, Hgb 13.3, Hct 42.6, MCV 96.2 H, MCH 30.0, MCHC 31.2 L, RDW Std Deviation 53.0 H, RDW Coeff of Raphael 14.9 H, Plt Count 104 L, MPV 11.1, Immature Gran % (Auto) 0.500, Neut % (Auto) 81.5 H, Lymph % (Auto) 8.4 L, Gregory % (Auto) 7.4, Eos % (Auto) 1.8, Baso % (Auto) 0.4, Absolute Neuts (auto) 4.7, Absolute Lymphs (auto) 0.48 L, Nucleated RBC % 0, Differential Comment SCANNED, Sodium 138, Potassium 3.8, Chloride 106, Carbon Dioxide 25.0, Anion Gap 7, BUN 24 H, Creatinine 1.45 H, Estim Creat Clear Calc 44.70, Est GFR (MDRD) Af Amer 61, Est GFR (MDRD) Non-Af 51 L, BUN/Creatinine Ratio 16.6, Glucose 146 H, Calcium 8.2 L, Total Bilirubin 5.20 H, AST 59 H, ALT 145 H, Alkaline Phosphatase 262 H, Troponin I High Sens 121 H*, Total Protein 6.6, Albumin 2.8 L, Globulin 3.8, Albumin/Globulin Ratio 0.7 L 07/01/23 11:01: POC Glucose 158 H 07/01/23 16:30: POC Glucose 128 H Micro: Microbiology 06/28/23 18:10 Nasal Secretion SARS-CoV-2 Antigen (Rapid) - Final Rhythm Strip Rhythm Strip: Sinus Rhythm Rate: 73 Ectopy: None Physical Exam Const oriented x3 and no apparent distress GI GI Narrative: Mildly distended, soft, tender to palpation in the right upper quadrant with negative Hallman sign Assessment & Plan Assessment/Plan (1) Acute pancreatitis: QUALIFIERS: Pancreatitis type: biliary Acute pancreatitis complication: no infection or necrosis Qualified Code(s): K85.10 - Biliary acute pancreatitis without necrosis or infection (2) Elevated liver enzymes: PLAN: Plan 73 gentleman history of CAD status post non-ST segment elevation DE with PTCA and stents on antiplatelet therapy presents with worsening abdominal pain and discovered to have cholestatic hepatitis and pancreatitis likely secondary to underlying choledocholithiasis. -Postop day 1 from ERCP with stone removal, stricture dilation and biliary stent placement -Patient is awaiting cholecystectomy -His LFTs are improving. Continue antibiotics. Charges/Coding Visit Charges Inpatient E&M: 59899 Subs Hosp L3
[2023-07-01] MEDS: Atorvastatin Calcium 80 MG Tablet PO (22:13)
[2023-07-02] VITALS (19 sets, daily range): BP systolic 100–138; BP diastolic 58–84; PULSE 75–153; RESP 16–18; TEMP 36.1–36.7; O2SAT 90–98
[2023-07-02] MEDS: MELATONIN 3 MG TABLET PO (00:04)
[2023-07-02] MEDS: Metoprolol Tartrate 50 MG Tablet 75 MG PO ×3 (00:04→20:57)
[2023-07-02 00:53] LABS: Bedside Glucose 166 mg/dL (74-106)
[2023-07-02 03:43] LABS: Absolute Lymphocyte Count 0.77 X10^3/uL (0.83-4.51); Absolute Neutrophil Count 3.4 X10^3/uL (2.0-7.7); Basophil# 0.02 X10^3/uL; Basophil% 0.4 % (0-1); Eosinophils% 4.1 % (0-5); Hemoglobin 13.5 g/dL (13.0-16.5); Lymphocyte # 0.77 X10^3/ul (0.83-4.51); Lymphocyte % 15.8 % (19-41); Mean Corp Hgb Conc 32.1 g/dL (32-36); Mean Corpuscular Hgb 30.5 pg (27.0-32.0); Mean Platelet Vol. 10.5 fl (6.2-12.0); Monocyte% 10.2 % (0-10); NRBC Flagged by Analyzer 0 % (0-5); Neutrophil # 3.37 X10^3/uL (2.7-7.7); Neutrophil % 69.1 % (47-70); Platelet Count 101 K/mm3 (150-450); RBC Distribution Width CV 14.9 % (11.6-14.6); RBC Distribution Width SD 52.6 fl (35.1-43.9); Red Blood Count 4.42 M/mm3 (4.6-6.2); White Blood Count 4.9 K/mm3 (4.4-11.0)
[2023-07-02 03:58] LABS: ALB/GLOB Ratio 0.6 RATIO (0.9-2.4); AST(SGOT) 43 U/L (15-37); Alanine Aminotransfer ALT/SGPT 114 U/L (16-61); Albumin, Serum 2.6 g/dL (3.2-5.0); Alkaline Phosphatase 252 U/L (45-117); Anion Gap 5 (5-15); BUN 26 mg/dL (7-18); Calcium,Total 8.4 mg/dL (8.5-10.1); Chloride 107 mmol/L (98-107); Creatinine, Serum 1.37 mg/dL (0.70-1.30); EST Glomerular Filtration Rate 54 mL/min (>60); Est Glom Filt Rate - Afr Amer 65 mL/min (>60); Estimated Creatinine Clearance 47.31 ml/min; Glucose 126 mg/dL (74-106); Potassium 3.8 mmol/L (3.5-5.1); Protein, Total 6.6 g/dL (6.4-8.2); Sodium Level 138 mmol/L (136-145)
[2023-07-02 05:42] LABS: Bedside Glucose 113 mg/dL (74-106)
[2023-07-02] MEDS: 0.9% Normal Saline 1,000 ML 1 ML IV (05:57)
--- NOTE | 2023-07-02 06:30 | GALL_PTH ---
PATIENT: LUIS DEE LOC: [facility] U#:[id number] AGE/SX: 73/M ROOM: [facility] RE06/28/[address]: Dr. Hansel Key MD : [id number] BED: 1 DIS: 07/05/2023 SPEC #: [id number] RECD: 07/02/23 09:48 STATUS: ANMOL [place] #: [id number] SIDRA: 07/02/23 06:[address]: Shadi Lemons DEPT: SURGICAL PATHOLOGY RECD BY: Tamela Keating ENTERED: 07/02/23 10:21 SP TYPE: GALLBLADDE OTHR DR: MD Dr. Boston Mane MD Dr. Michael Bortz, MD Dr. Nagapradee Nagajothi, MD Dr. Paige Pierce, MD Dr. Rahsaan Friend, DO Tissues: Gallbladder, NOS Procedures: Surgery Specimen Level III Comments: @ Ordering doctor for SUIII edited from to @ by MARCELLA at 07/02/23 1501 @ Submitting doctor edited from to @ by NEISHAOD at 07/02/23 1501 HEADER OPERATION: Laparoscopic cholecystectomy with IOC PRE-OP DIAGNOSIS: Acute pancreatitis, elevated liver enzymes, biliary colic TISSUE SUBMITTED: Gallbladder MICROSCOPIC DIAGNOSIS Gallbladder, cholecystectomy: Acute and chronic cholecystitis and cholelithiasis. AM:missy 07/06/2023 MICROSCOPIC DESCRIPTION Slides are reviewed. GROSS DESCRIPTION Received is one container labeled with the patient's name and designated gallbladder. The specimen consists of a gallbladder measuring 8.5 cm in length and up to 4.5 cm in diameter. The external surface is pink-crabtree, smooth and glistening for the most part. Focally it is granular, hemorrhagic and contains cautery artifact. The gallbladder contains thick mucoid bile and sludge material and contains multiple small brownish-black stones measuring <0.1 to 0.4 cm in greatest dimension. The mucosa is bile-stained and without any mass lesions. The gallbladder wall measures up to 0.7 cm in thickness. Increased amount of subserosal fat is noted. Sausage Maker sections from the gallbladder and the cystic duct are submitted in one cassette. / SJ:missy 07/02/2023 TC:2 CPT: 58640
--- NOTE | 2023-07-02 06:49 | PCM.PN.BLA ---
Progress Note Patient seen and examined in preoperative holding area. Procedure was delayed on account of later hour in the operating room and patient's numerous comorbidities posing increased operative risk. This morning patient denies any explicit complaints. His laboratories are further improved from a biliary standpoint. Plan to proceed to the operating room for laparoscopic cholecystectomy with cholangiogram this morning.
--- NOTE | 2023-07-02 07:00 | RAD_ITS ---
STUDY: INTRAOPERATIVE CHOLANGIOGRAM. REASON FOR EXAM: Male, 73 years old. Laparoscopic cholecystectomy. FLUOROSCOPY TIME (if supplied): ( 28 seconds ) minutes/seconds. 25.2 mGy. A cine run of 78 images was obtained. TECHNIQUE: An intraoperative Cholangiogram was performed by the surgeon. Imaging was submitted. COMPARISON: None. FINDINGS: A biliary stent is seen within the common bile duct. Air bubbles are seen within the common bile duct. No definite calculus is seen. Contrast is seen within the duodenum. RAD/Cholangiogram/ O R,Initial IMPRESSION: Stent is seen within the common bile duct. Free flow of contrast is seen into the duodenum. Electronically Signed: Dima White MD at 10:00 EDT ,
--- NOTE | 2023-07-02 08:24 | PCM.OPRPT ---
Report of Operation Date of Procedure: 07/02/23 Pre-Operative Diagnosis: 1. Choledocholithiasis 2. Acute CHF exacerbation Post-Operative Diagnosis: 1. Choledocholithiasis 2. Acute CHF exacerbation 3. Chronic cholecystitis Surgery/Procedure Performed:: Laparoscopic cholecystectomy with intraoperative cholangiogram Surgeon: Shadi Lemons waterproofer helper: Braxton Pace Type of Anesthesia: General/Supplemental Anesthesiologist: Boris Dalal Specimen's removed: Gallbladder Drains: None Estimated Blood Loss (mL): 50 Description of Procedure: After proper identification in the preoperative holding area the patient was given a left radial arterial line by anesthesia and was brought to the operating room where he was positioned supine on the operating room table. Antibiotics, continuously ordered from the floor, were administered. SCDs were connected. General anesthesia was then induced. Patient's abdomen was prepped and draped in usual sterile fashion. A formal timeout was conducted to confirm both patient and the procedure. Procedure was begun with a supraumbilical incision (approximately 6 cm cephalad from the true umbilicus given the patient's long abdomen) which was extended deeply down to the level of the fascia. The fascia was elevated and incised, as well as the peritoneum. A finger sweep was performed to ensure there were no underlying adhesions and a 12 mm balloon trocar was inserted. Pneumoperitoneum was established at 15 mmHg. 3 additional trocars were placed in the epigastrium and in the right upper quadrant (3 x 5 mm). Inspection of the peritoneum revealed no inadvertent injury to the viscera below. The gallbladder was visualized with evidence of chronic inflammation. The gallbladder fundus was then grasped and elevated cephalad. Then, using careful dissection the peritoneum was opened with electrocautery and the structures of the hepatocystic triangle were delineated. Once the cystic duct and cystic artery were delineated, the cystic duct was singly clipped and partially divided with a ductotomy. The proximal duct was milked of any debris. Using an [place] clamp, a cholangiocatheter was fed into the proximal segment of the cystic duct and clamped into place. Under fluoroscopy a cholangiogram was then obtained showing a long cystic duct flowing into a common bile duct with unobstructed antegrade flow of contrast into the duodenum. There was also evidence of filling defects which were thought to represent bubbles rather than stones given their movement through the common duct and the patient's known common bile duct stent. Lastly I did confirm retrograde flow through the common hepatic duct into the right and left hepatic ducts. Satisfied with this result, the cholangiocatheter was withdrawn and the proximal cystic duct was sealed with clips and was completely transected. The same process was used for the cystic artery. The gallbladder was then removed from the gallbladder fossa with the use of electrocautery. Selective electrocautery was used to obtain hemostasis in the gallbladder fossa. The gallbladder was placed in an Endo Catch bag and removed from the peritoneum. Morison's pouch was irrigated and the effluent was suctioned free of the peritoneum. There was some slight oozing from a superficial crack in the liver capsule lateral to the gallbladder fossa which was treated with coagulation successfully. Slight oozing persisted at the uppermost aspect of the gallbladder fossa and so I elected to place a splotch of fibrillar hemostatic agent into the abdomen over this area. After placement the fibrillar remained white. Hemostasis confirmed, pneumoperitoneum was evacuated and the fascia of the 12 mm port sites was closed with #1Vicryl in a [id number] fashion. A total of 30 mL of anesthetic was injected at the port sites for postoperative pain control. The skin of each port site was then closed in subcuticular fashion using 4-0 Monocryl. Steri-Strips and bandages were applied as dressings. Patient tolerated the procedure well without any apparent complications. On emergence from their anesthetic the patient was taken to PACU for ongoing recovery. Grafts/Implants Used: None Complications None Admit VTE Documentation VTE Mechan Device Prophylaxis: SCD's Procedures Digestive 40xxx-49xxx: 49120 Laparo cholecystectomy/graph
[2023-07-02] MEDS: Bupivacaine Mpf 0.5% 30 ML VIAL (08:25)
--- NOTE | 2023-07-02 08:45 | CASEMGMT ---
Social Work Power of rubber splicer for healthcare with Living will provision initialed is scanned into [employer], pt's brother Robert Melgar is listed as pt's healthcare POA. MARIAELENA Comer
--- NOTE | 2023-07-02 08:53 | PCM.PN.HOSP ---
Reason for Visit Reason for Visit: Diagnoses Atherosclerotic heart disease of [place] coronary artery with unspecified angina pectoris (06/28/23) Ischemic cardiomyopathy (06/28/23) Chronic systolic (congestive) heart failure (06/28/23) Heart failure, unspecified (06/28/23) Calculus of bile duct without cholangitis or cholecystitis without obstruction (06/28/23) Biliary acute pancreatitis without necrosis or infection (06/28/23) Chronic kidney disease, stage 3b (06/28/23) Abnormal levels of other serum enzymes (06/28/23) Encounter for preprocedural cardiovascular examination (06/28/23) Subjective Subjective Patient status post cholecystectomy, reports abdomen is sore but overall feeling fair, afraid to take a big deep breath due to concerns for pain, denies chest pain but has some right collarbone pain Objective Data Objective Data Vital Signs: Vital Signs Temp Pulse Resp BP Pulse Ox O2 Del Method O2 Flow Rate 98.0 F 86 16 100/78 98 Nasal Cannula 2 07/02/23 04:50 07/02/23 04:50 07/02/23 04:50 07/02/23 04:50 07/02/23 04:50 07/02/23 04:50 07/02/23 04:50 Oxygen Flow Rate (L/min) 2 Oxygen Delivery Method Nasal Cannula Weight: 124.1 kg Body Mass Index (BMI) 40.4 Intake & Output: Intake and Output for Last 24 Hours 06/30/23 07/01/23 07/02/23 23:59 23:59 23:59 Intake Total 600.88 / 710.88 527.17 / 767.17 374 / 374 Output Total 1325 / 1575 1200 / 1400 500 / 500 Balance -724.12 / -864.12 -672.83 / -632.83 -126 / -126 Lab / Micro Data 07/02/23 03:34 07/02/23 03:34 Labs: Laboratory Results - last 24 hr 07/01/23 04:39: Troponin I High Sens 121 H* 07/01/23 11:01: POC Glucose 158 H 07/01/23 16:30: POC Glucose 128 H 07/02/23 00:08: POC Glucose 166 H 07/02/23 03:34: WBC 4.9, RBC 4.42 L, Hgb 13.5, Hct 42.0, MCV 95.0 H, MCH 30.5, MCHC 32.1, RDW Std Deviation 52.6 H, RDW Coeff of Raphael 14.9 H, Plt Count 101 L, MPV 10.5, Immature Gran % (Auto) 0.400, Neut % (Auto) 69.1, Lymph % (Auto) 15.8 L, [place] % (Auto) 10.2 H, Eos % (Auto) 4.1, Baso % (Auto) 0.4, Absolute Neuts (auto) 3.4, Absolute Lymphs (auto) 0.77 L, Nucleated RBC % 0, Sodium 138, Potassium 3.8, Chloride 107, Carbon Dioxide 26.0, Anion Gap 5, BUN 26 H, Creatinine 1.37 H, Estim Creat Clear Calc 47.31, Est GFR (MDRD) Af Amer 65, Est GFR (MDRD) Non-Af 54 L, BUN/Creatinine Ratio 19.0, Glucose 126 H, Calcium 8.4 L, Total Bilirubin 3.10 H, AST 43 H, ALT 114 H, Alkaline Phosphatase 252 H, Total Protein 6.6, Albumin 2.6 L, Globulin 4.0, Albumin/Globulin Ratio 0.6 L 07/02/23 04:55: POC Glucose 113 H Micro: Microbiology 06/28/23 18:10 Nasal Secretion SARS-CoV-2 Antigen (Rapid) - Final Rhythm Strip Rhythm Strip: Sinus Rhythm Rate: 73 Ectopy: None Physical Exam Narrative General: Alert, oriented, no apparent distress HEENT: Atraumatic, normocephalic Eyes: Has some scleral icterus, extraocular movements grossly intact Neck: Supple Respiratory: Slightly diminished at the bases, normal respiratory effort Cardiovascular: Irregularly irregular, not tachycardic GI: Somewhat protuberant, slightly tender diffusely, no rebound, guarding, rigidity Extremities: No significant edema Musculoskeletal: Moving all extremities Neuro: No overt focal neurological deficits Skin: No rashes appreciated Psych: Cooperative Assessment & Plan Assessment/Plan (1) Acute pancreatitis: QUALIFIERS: Acute pancreatitis complication: no infection or necrosis Pancreatitis type: biliary Qualified Code(s): K85.10 - Biliary acute pancreatitis without necrosis or infection (2) Elevated liver enzymes: (3) Chronic HFrEF (heart failure with reduced ejection fraction): (4) Chronic kidney disease: QUALIFIERS: Chronic kidney disease stage: stage 3 (moderate) Chronic kidney disease stage 3 subtype: stage 3b (GFR 30-44) Qualified Code(s): N18.32 - Chronic kidney disease, stage 3b PLAN: Plan #Abdominal pain secondary to acute on chronic gallstone pancreatitis -Patient with a lipase level of more than [address] abdomen pelvis with contrast showed normal pancreas patient also has symptoms consistent with pancreatitis so we will treat as pancreatitis, especially as patient has gallstones, epigastric pain and right upper quadrant pain. -Patient kept n.p.o. except ice and sips with meds. -Morphine as needed for pain -06/29: MRCP ordered, discussed with GI and is felt he needs ERCP however given his cardiac history, elevated troponin, elevated BNP and recent chest pain cardiology evaluation advised prior to patient undergoing anesthesia, cardiology consulted especially given his recent need for nitroglycerin use and high risk for surgery to help optimize patient medically to minimize risk is much as possible. Echocardiogram ordered and pending -06/30: MRCP unremarkable, troponin has now down trended so plan has been for ERCP this afternoon, did have accelerated heart rate this a.m. which will be treated with Cardizem per cards, continue Zosyn -07/01: Status post ERCP with choledocholithiasis found with biliary sphincterotomy and balloon extraction and biliary tree sweep with upper third of the main bile duct dilated with temporary stent. Patient for cholecystectomy this afternoon if doing well -07/02: Patient status post lap dhiraj today, GI and surgery following, will add incentive spirometer #Accelerated heart rate -Appears to be A-fib on EKG, on Coreg, will be started on Cardizem per cardiology -07/01: Rate controlled with diltiazem and carvedilol, continue to optimize medically, cardiology following -07/02: Patient transition to metoprolol and off Cardizem drip #Hyperbilirubinemia Bilirubin level of 2.70. Of note his bilirubin on 06/17/2023 today was 0.8. Liver chemistry is elevated; trend. Ultrasound gallbladder with gallbladder sludge; asymmetric irregular tough gallbladder wall thickening versus mass. With history of heart failure counseled use of IV fluids. Placed on normal saline 75 MLS per hour. ED doctor discussed case with general surgery who recommended MRCP. MRCP ordered. General surgery consult. -06/29: Liver function and bili worsened today with AST 295, ALT 314, alk phos 315 and total bili up to 4.7. GI to plan for ERCP after cardiac optimization, discussed with surgery and it was advised MRCP either way as if patient has any mass he will need hepatobiliary surgery if not we can consider further management here post ERCP -06/30: Increased bili with downtrending LFTs, see above -07/01: LFTs downtrending from yesterday after ERCP, patient for lap dhiraj this afternoon date continues to improve, lap dhiraj this a.m., was delayed due to patient's perioperative risk -07/02: Status post lap dhiraj 07/02 #Chronic heart failure with reduced ejection fraction -Impression of chest x-ray by radiology: The Left is enlarged with slight central pulmonary vascular prominence. -Echocardiogram on 11/16/2022 showed ejection fraction 45%. [place] severely hypokinetic; moderate-severe hypokinetic. Mild eccentric mitral valve insufficiency. Mild aortic stenosis. -Echocardiogram on 04/17/2021 also showed EF of 45% -06/29: Patient with elevated BNP but no respiratory distress and vitally stable, will repeat echocardiogram, daily weights, I's and O's. Patient's Lasix were held, given increase in BNP and hemodynamic stability we will hold fluids pending further evaluation -06/30: Continue to monitor fluid status, does not appear to be fluid overloaded at this time -07/01: Weight up very slightly from admission but vitally stable and not overtly overloaded, continue to monitor -07/02: Monitor hemodynamics and respiratory status, will need to cautiously introduce Lasix moving forward and be cautious with any IV fluids #Elevated troponin -Suspect this is all due to myocardial strain secondary to underlying illness however has been having to take his nitroglycerin recently -Troponin 76 with repeat 85 and subsequent 83, unclear why fourth troponin was checked but it was 108. Do not suspect ACS as cause at present -We will check echocardiogram -Continue fluids but monitor carefully due to history of heart failure date cardiology consulted especially given recent cardiac complaints -06/30: Did downtrend this a.m., still suspect that this is all demand given his current illness -07/02: This was checked again preop yesterday and has continued to downtrend #History of coronary artery disease -Does have history of stent placement -Continue beta-trav and statin -Follows with cardiology on outpatient basis -06/30: Continue current management #Type 2 diabetes mellitus -Glucose checks and sliding scale insulin #CKD stage IIIb Stable Trend CMP -06/29: Appears to be at baseline, avoid nephrotoxic agents, continue fluids DVT prophylaxis SCDs as patient is a surgical candidate Time spent in the patient's overall evaluation,decision-making process, review of diagnostic data, adjustment of management, discussion with other providers, nursing nursing and ancillary staff involved in patient's care documentation, 40 minutes. Charges/Coding Visit Charges Inpatient E&M: 70577 Subs Hosp L2
[2023-07-02 09:47] LABS: Troponin-I HS 56 pg/mL (3.0-78.0)
--- NOTE | 2023-07-02 10:12 | SUR.PHASEI ---
Left arterial line d/c'd, pressure held x 5 min, pt tolerated well. Rt hand pink, able to move fingers, cap refill <3sec.
[2023-07-02 10:15] LABS: Bedside Glucose 181 mg/dL (74-106)
[2023-07-02] MEDS: Morphine 4 MG/ML Syringe IV ×2 (11:24→15:29)
[2023-07-02] MEDS: Senna/Docusate Sodium 1 Tablet 2 TABLET PO ×2 (11:25→22:52)
[2023-07-02] MEDS: Allopurinol 100 MG Tablet 200 MG PO (11:32)
[2023-07-02] MEDS: Nystatin Powder 15gm Bottle 1 APPLIC TOPICAL ×2 (11:36→20:58)
[2023-07-02 11:53] LABS: Bedside Glucose 147 mg/dL (74-106)
[2023-07-02 16:25] LABS: Bedside Glucose 144 mg/dL (74-106)
[2023-07-02] MEDS: Atorvastatin Calcium 80 MG Tablet PO (20:58)
[2023-07-02] MEDS: Insulin Lispro 100 UNIT/ML INSULN.PEN SC (23:19)
[2023-07-03] VITALS (7 sets, daily range): BP systolic 101–139; BP diastolic 72–86; PULSE 73–99; RESP 15–18; TEMP 36.1–36.9; O2SAT 92–97; BMI 40.8
[2023-07-03 00:16] LABS: Bedside Glucose 257 mg/dL (74-106)
[2023-07-03] MEDS: Insulin Lispro 100 UNIT/ML INSULN.PEN SC ×3 (06:08→21:38)
[2023-07-03 06:48] LABS: Bedside Glucose 176 mg/dL (74-106)
[2023-07-03 07:38] LABS: Absolute Lymphocyte Count 0.96 X10^3/uL (0.83-4.51); Absolute Neutrophil Count 6.1 X10^3/uL (2.0-7.7); Basophil# 0.03 X10^3/uL; Basophil% 0.4 % (0-1); Eosinophil# 0.05 X10^3/uL; Eosinophils% 0.6 % (0-5); Hemoglobin 13.2 g/dL (13.0-16.5); Lymphocyte # 0.96 X10^3/ul (0.83-4.51); Mean Corp Hgb Conc 30.7 g/dL (32-36); Mean Corpuscular Volume 97.7 fL (80-94); Mean Platelet Vol. 11.4 fl (6.2-12.0); Monocyte# 0.84 X10^3/uL; Monocyte% 10.5 % (0-10); NRBC Flagged by Analyzer 0 % (0-5); Neutrophil # 6.09 X10^3/uL (2.7-7.7); Neutrophil % 75.9 % (47-70); Platelet Count 110 K/mm3 (150-450); RBC Distribution Width CV 15.3 % (11.6-14.6); RBC Distribution Width SD 55.8 fl (35.1-43.9)
--- NOTE | 2023-07-03 07:39 | PN.SURG_ITS ---
Subjective Subjective Patient seen and examined during AM rounds. He is found sitting out of bed in a chair. He complains of some mild abdominal discomfort and states that he believes this is secondary to some constipation. He wishes to be started on a bowel regimen. He is currently on oxygen and nursing reports that they are working to motivate him to mobilize more. Mr. Melgar denies any difficulty with his current diet and expresses an interest in further advancement. Objective Data Objective Data Vital Signs: Vital Signs Temp Pulse Resp BP Pulse Ox O2 Del Method O2 Flow Rate 97.0 F L 88 16 118/72 96 Nasal Cannula 2 07/03/23 06:48 07/03/23 06:48 07/03/23 06:48 07/03/23 06:48 07/03/23 06:48 07/03/23 06:48 07/03/23 06:48 FiO2 96 07/02/23 11:04 Oxygen Flow Rate (L/min) 2 Oxygen Delivery Method Nasal Cannula Weight: 276 lb 7.355 oz Body Mass Index (BMI) 40.8 Intake & Output: Intake and Output for Last 24 Hours 07/01/23 07/02/23 07/03/23 23:59 23:59 23:59 Intake Total 527.17 / 767.17 2744.6 / 2864.6 370 / 370 Output Total 1200 / 1400 500 / 900 800 / 800 Balance -672.83 / -632.83 2244.6 / 1964.6 -430 / -430 Lab / Micro Data 07/03/23 06:14 07/03/23 06:14 Labs: Laboratory Results - last 24 hr 07/02/23 09:17: Troponin I High Sens 56 07/02/23 09:58: POC Glucose 181 H 07/02/23 11:22: POC Glucose 147 H 07/02/23 16:07: POC Glucose 144 H 07/02/23 23:16: POC Glucose 257 H 07/03/23 06:07: POC Glucose 176 H 07/03/23 06:14: WBC 8.0, RBC 4.40 L, Hgb 13.2, Hct 43.0, MCV 97.7 H, MCH 30.0, MCHC 30.7 L, RDW Std Deviation 55.8 H, RDW Coeff of Raphael 15.3 H, Plt Count 110 L, MPV 11.4, Immature Gran % (Auto) 0.600, Neut % (Auto) 75.9 H, Lymph % (Auto) 12.0 L, [place] % (Auto) 10.5 H, Eos % (Auto) 0.6, Baso % (Auto) 0.4, Absolute Neuts (auto) 6.1, Absolute Lymphs (auto) 0.96, Nucleated RBC % 0 Micro: Microbiology 06/28/23 18:10 Nasal Secretion SARS-CoV-2 Antigen (Rapid) - Final Radiography Diagnostic Testing: Radiology Impression Cholangiogram 07/02/23 07:00 IMPRESSION: Stent is seen within the common bile duct. Free flow of contrast is seen into the duodenum. Electronically Signed: Dima White MD at 10:00 EDT , Rhythm Strip Rhythm Strip: Sinus Rhythm Rate: 73 Ectopy: None Physical Exam Const oriented x3 Constitutional Narrative: Mild distress from abdominal discomfort Resp Resp Narrative: Mildly tachypneic GI GI Narrative: Mildly distended, operative dressings intact with minimal drainage, soft and appropriately tender to palpation Assessment & Plan Assessment/Plan (1) Acute pancreatitis: QUALIFIERS: Pancreatitis type: biliary Acute pancreatitis complication: no infection or necrosis Qualified Code(s): K85.10 - Biliary acute pancreatitis without necrosis or infection (2) Elevated liver enzymes: (3) Biliary colic: (4) Acute exacerbation of CHF (congestive heart failure): PLAN: Plan This is a 73-year-old male with complex past medical history?inclusive of some recent chest discomfort?who presents with acute onset abdominal pain and ev idence of acute pancreatitis, hepatitis, and abnormal gallbladder imaging. He was ultimately found to have choledocholithiasis with ERCP on 07/01/2023 and is now postoperative day 1 from laparoscopic cholecystectomy with intraoperative cholangiogram yesterday. Overall he is doing well, but complains of some abdominal discomfort this morning and confesses that he has been dealing with constipation that predated either of his procedures. We will plan to advance his diet and provide MiraLAX today. Patient is encouraged to continue work with his incentive spirometer and splint for deep coughing. ? Discontinue Zosyn ? Then to regular diet ? MiraLAX daily
[2023-07-03 08:00] LABS: ALB/GLOB Ratio 0.6 RATIO (0.9-2.4); AST(SGOT) 51 U/L (15-37); Alanine Aminotransfer ALT/SGPT 100 U/L (16-61); Albumin, Serum 2.6 g/dL (3.2-5.0); Alkaline Phosphatase 239 U/L (45-117); Anion Gap 9 (5-15); BUN 28 mg/dL (7-18); BUN/Creat Ratio 16.7 RATIO (10-20); Calcium,Total 8.5 mg/dL (8.5-10.1); Chloride 102 mmol/L (98-107); Creatinine, Serum 1.68 mg/dL (0.70-1.30); EST Glomerular Filtration Rate 43 mL/min (>60); Est Glom Filt Rate - Afr Amer 52 mL/min (>60); Estimated Creatinine Clearance 38.58 ml/min; Globulin 4.4 g/dL (2.2-4.2); Glucose 152 mg/dL (74-106); Potassium 4.2 mmol/L (3.5-5.1); Sodium Level 137 mmol/L (136-145)
--- NOTE | 2023-07-03 09:10 | PCM.PN.HOSP ---
Reason for Visit Reason for Visit: Diagnoses Atherosclerotic heart disease of [place] coronary artery with unspecified angina pectoris (06/28/23) Ischemic cardiomyopathy (06/28/23) Chronic systolic (congestive) heart failure (06/28/23) Heart failure, unspecified (06/28/23) Calculus of bile duct without cholangitis or cholecystitis without obstruction (06/28/23) Biliary acute pancreatitis without necrosis or infection (06/28/23) Chronic kidney disease, stage 3b (06/28/23) Abnormal levels of other serum enzymes (06/28/23) Encounter for preprocedural cardiovascular examination (06/28/23) Subjective Subjective Pt passing gas but no BM, breathing roughly the same, some abd tenderness still Objective Data Objective Data Vital Signs: Vital Signs Temp Pulse Resp BP Pulse Ox O2 Del Method O2 Flow Rate 98.4 F 73 18 101/73 97 Nasal Cannula 2 07/03/23 08:52 07/03/23 08:52 07/03/23 08:52 07/03/23 08:52 07/03/23 08:52 07/03/23 08:57 07/03/23 08:57 FiO2 96 07/02/23 11:04 Oxygen Flow Rate (L/min) 2 Oxygen Delivery Method Nasal Cannula Weight: 125.4 kg Body Mass Index (BMI) 40.8 Intake & Output: Intake and Output for Last 24 Hours 07/01/23 07/02/23 07/03/23 23:59 23:59 23:59 Intake Total 527.17 / 767.17 2744.6 / 2864.6 370 / 370 Output Total 1200 / 1400 500 / 900 800 / 800 Balance -672.83 / -632.83 2244.6 / 1964.6 -430 / -430 Lab / Micro Data 07/03/23 06:14 07/03/23 06:14 Labs: Laboratory Results - last 24 hr 07/02/23 09:17: Troponin I High Sens 56 07/02/23 09:58: POC Glucose 181 H 07/02/23 11:22: POC Glucose 147 H 07/02/23 16:07: POC Glucose 144 H 07/02/23 23:16: POC Glucose 257 H 07/03/23 06:07: POC Glucose 176 H 07/03/23 06:14: WBC 8.0, RBC 4.40 L, Hgb 13.2, Hct 43.0, MCV 97.7 H, MCH 30.0, MCHC 30.7 L, RDW Std Deviation 55.8 H, RDW Coeff of Raphael 15.3 H, Plt Count 110 L, MPV 11.4, Immature Gran % (Auto) 0.600, Neut % (Auto) 75.9 H, Lymph % (Auto) 12.0 L, [place] % (Auto) 10.5 H, Eos % (Auto) 0.6, Baso % (Auto) 0.4, Absolute Neuts (auto) 6.1, Absolute Lymphs (auto) 0.96, Nucleated RBC % 0, Sodium 137, Potassium 4.2, Chloride 102, Carbon Dioxide 26.0, Anion Gap 9, BUN 28 H, Creatinine 1.68 H, Estim Creat Clear Calc 38.58, Est GFR (MDRD) Af Amer 52 L, Est GFR (MDRD) Non-Af 43 L, BUN/Creatinine Ratio 16.7, Glucose 152 H, Calcium 8.5, Total Bilirubin 3.00 H, AST 51 H, ALT 100 H, Alkaline Phosphatase 239 H, Total Protein 7.0, Albumin 2.6 L, Globulin 4.4 H, Albumin/Globulin Ratio 0.6 L Micro: Microbiology 06/28/23 18:10 Nasal Secretion SARS-CoV-2 Antigen (Rapid) - Final Radiography Diagnostic Testing: Radiology Impression Cholangiogram 07/02/23 07:00 IMPRESSION: Stent is seen within the common bile duct. Free flow of contrast is seen into the duodenum. Electronically Signed: Dima White MD at 10:00 EDT , Rhythm Strip Rhythm Strip: Sinus Rhythm Rate: 73 Ectopy: None Physical Exam Narrative General: Alert, oriented, no apparent distress HEENT: Atraumatic, normocephalic Eyes: Has some scleral icterus, extraocular movements grossly intact Neck: Supple Respiratory: Crackles at bases, normal respiratory effort Cardiovascular: Irregularly irregular, not tachycardic GI: Somewhat protuberant, slightly tender diffusely, no rebound, guarding, rigidity Extremities: No significant edema Musculoskeletal: Moving all extremities Neuro: No overt focal neurological deficits Skin: No rashes appreciated Psych: Cooperative Assessment & Plan Assessment/Plan (1) Acute pancreatitis: QUALIFIERS: Acute pancreatitis complication: no infection or necrosis Pancreatitis type: biliary Qualified Code(s): K85.10 - Biliary acute pancreatitis without necrosis or infection (2) Elevated liver enzymes: (3) Chronic HFrEF (heart failure with reduced ejection fraction): (4) Chronic kidney disease: QUALIFIERS: Chronic kidney disease stage: stage 3 (moderate) Chronic kidney disease stage 3 subtype: stage 3b (GFR 30-44) Qualified Code(s): N18.32 - Chronic kidney disease, stage 3b PLAN: Plan #Abdominal pain secondary to acute on chronic gallstone pancreatitis -Patient with a lipase level of more than [address] abdomen pelvis with contrast showed normal pancreas patient also has symptoms consistent with pancreatitis so we will treat as pancreatitis, especially as patient has gallstones, epigastric pain and right upper quadrant pain. -Patient kept n.p.o. except ice and sips with meds. -Morphine as needed for pain -06/29: MRCP ordered, discussed with GI and is felt he needs ERCP however given his cardiac history, elevated troponin, elevated BNP and recent chest pain cardiology evaluation advised prior to patient undergoing anesthesia, cardiology consulted especially given his recent need for nitroglycerin use and high risk for surgery to help optimize patient medically to minimize risk is much as possible. Echocardiogram ordered and pending -06/30: MRCP unremarkable, troponin has now down trended so plan has been for ERCP this afternoon, did have accelerated heart rate this a.m. which will be treated with Cardizem per cards, continue Zosyn -07/01: Status post ERCP with choledocholithiasis found with biliary sphincterotomy and balloon extraction and biliary tree sweep with upper third of the main bile duct dilated with temporary stent. Patient for cholecystectomy this afternoon if doing well -07/02: Patient status post lap dhiraj today, GI and surgery following, will add incentive spirometer -07/03: Diet advanced, pain control, d/c'd zosyn, diet advanced #Accelerated heart rate -Appears to be A-fib on EKG, on Coreg, will be started on Cardizem per cardiology -07/01: Rate controlled with diltiazem and carvedilol, continue to optimize medically, cardiology following -07/02: Patient transition to metoprolol and off Cardizem drip -07/03: Doing well on metoprolol #Hyperbilirubinemia Bilirubin level of 2.70. Of note his bilirubin on 06/17/2023 today was 0.8. Liver chemistry is elevated; trend. Ultrasound gallbladder with gallbladder sludge; asymmetric irregular tough gallbladder wall thickening versus mass. With history of heart failure counseled use of IV fluids. Placed on normal saline 75 MLS per hour. ED doctor discussed case with general surgery who recommended MRCP. MRCP ordered. General surgery consult. -06/29: Liver function and bili worsened today with AST 295, ALT 314, alk phos 315 and total bili up to 4.7. GI to plan for ERCP after cardiac optimization, discussed with surgery and it was advised MRCP either way as if patient has any mass he will need hepatobiliary surgery if not we can consider further management here post ERCP -06/30: Increased bili with downtrending LFTs, see above -07/01: LFTs downtrending from yesterday after ERCP, patient for lap dhiraj this afternoon date continues to improve, lap dhiraj this a.m., was delayed due to patient's perioperative risk -07/02: Status post lap dhiraj 07/02 -07/03: Slowly improving #Chronic heart failure with reduced ejection fraction -Impression of chest x-ray by radiology: The Left is enlarged with slight central pulmonary vascular prominence. -Echocardiogram on 11/16/2022 showed ejection fraction 45%. [place] severely hypokinetic; moderate-severe hypokinetic. Mild eccentric mitral valve insufficiency. Mild aortic stenosis. -Echocardiogram on 04/17/2021 also showed EF of 45% -06/29: Patient with elevated BNP but no respiratory distress and vitally stable, will repeat echocardiogram, daily weights, I's and O's. Patient's Lasix were held, given increase in BNP and hemodynamic stability we will hold fluids pending further evaluation -06/30: Continue to monitor fluid status, does not appear to be fluid overloaded at this time -07/01: Weight up very slightly from admission but vitally stable and not overtly overloaded, continue to monitor -07/02: Monitor hemodynamics and respiratory status, will need to cautiously introduce Lasix moving forward and be cautious with any IV fluids -07/03: Does have slightly elevated BUN and creatinine though not overt YADIRA, patient to eat normal diet today, continue to monitor, patient is up in weight, cannot rule out cardiorenal, pt has crackles and with weight up will resume lasix #Elevated troponin -Suspect this is all due to myocardial strain secondary to underlying illness however has been having to take his nitroglycerin recently -Troponin 76 with repeat 85 and subsequent 83, unclear why fourth troponin was checked but it was 108. Do not suspect ACS as cause at present -We will check echocardiogram -Continue fluids but monitor carefully due to history of heart failure date cardiology consulted especially given recent cardiac complaints -06/30: Did downtrend this a.m., still suspect that this is all demand given his current illness -07/02: This was checked again preop yesterday and has continued to downtrend -07/03: Checked again preop 07/02 and had returned to normal #History of coronary artery disease -Does have history of stent placement -Continue beta-trav and statin -Follows with cardiology on outpatient basis -06/30: Continue current management #Type 2 diabetes mellitus -Glucose checks and sliding scale insulin #CKD stage IIIb Stable Trend CMP -06/29: Appears to be at baseline, avoid nephrotoxic agents, continue fluids -07/03: Has been variable, BUN and creatinine slightly up from past 2 days but similar to presentation, encourage p.o., continue monitor fluid status DVT prophylaxis SCDs as patient is a surgical candidate Time spent in the patient's overall evaluation,decision-making process, review of diagnostic data, adjustment of management, discussion with other providers, nursing nursing and ancillary staff involved in patient's care documentation, 40 minutes. Charges/Coding Visit Charges Inpatient E&M: 10291 Subs Hosp L2
--- NOTE | 2023-07-03 09:15 | PN.GI_ITS ---
Subjective Subjective Patient is status postcholecystectomy status post ERCP. He complains of mild abdominal pain but no cramping or nausea. Objective Data Objective Data Vital Signs: Vital Signs Temp Pulse Resp BP Pulse Ox O2 Del Method O2 Flow Rate 98.4 F 73 18 101/73 97 Nasal Cannula 2 07/03/23 08:52 07/03/23 08:52 07/03/23 08:52 07/03/23 08:52 07/03/23 08:52 07/03/23 08:57 07/03/23 08:57 FiO2 96 07/02/23 11:04 Oxygen Flow Rate (L/min) 2 Oxygen Delivery Method Nasal Cannula Weight: 276 lb 7.355 oz Body Mass Index (BMI) 40.8 Intake & Output: Intake and Output for Last 24 Hours 07/01/23 07/02/23 07/03/23 23:59 23:59 23:59 Intake Total 527.17 / 767.17 2744.6 / 2864.6 370 / 370 Output Total 1200 / 1400 500 / 900 800 / 800 Balance -672.83 / -632.83 2244.6 / 1964.6 -430 / -430 Lab / Micro Data 07/03/23 06:14 07/03/23 06:14 Labs: Laboratory Results - last 24 hr 07/02/23 09:17: Troponin I High Sens 56 07/02/23 09:58: POC Glucose 181 H 07/02/23 11:22: POC Glucose 147 H 07/02/23 16:07: POC Glucose 144 H 07/02/23 23:16: POC Glucose 257 H 07/03/23 06:07: POC Glucose 176 H 07/03/23 06:14: WBC 8.0, RBC 4.40 L, Hgb 13.2, Hct 43.0, MCV 97.7 H, MCH 30.0, MCHC 30.7 L, RDW Std Deviation 55.8 H, RDW Coeff of Raphael 15.3 H, Plt Count 110 L, MPV 11.4, Immature Gran % (Auto) 0.600, Neut % (Auto) 75.9 H, Lymph % (Auto) 12.0 L, [place] % (Auto) 10.5 H, Eos % (Auto) 0.6, Baso % (Auto) 0.4, Absolute Neuts (auto) 6.1, Absolute Lymphs (auto) 0.96, Nucleated RBC % 0, Sodium 137, Potassium 4.2, Chloride 102, Carbon Dioxide 26.0, Anion Gap 9, BUN 28 H, Creatinine 1.68 H, Estim Creat Clear Calc 38.58, Est GFR (MDRD) Af Amer 52 L, Est GFR (MDRD) Non-Af 43 L, BUN/Creatinine Ratio 16.7, Glucose 152 H, Calcium 8.5, Total Bilirubin 3.00 H, AST 51 H, ALT 100 H, Alkaline Phosphatase 239 H, Total Protein 7.0, Albumin 2.6 L, Globulin 4.4 H, Albumin/Globulin Ratio 0.6 L Micro: Microbiology 06/28/23 18:10 Nasal Secretion SARS-CoV-2 Antigen (Rapid) - Final Radiography Diagnostic Testing: Radiology Impression Cholangiogram 07/02/23 07:00 IMPRESSION: Stent is seen within the common bile duct. Free flow of contrast is seen into the duodenum. Electronically Signed: Dima White MD at 10:00 EDT , Rhythm Strip Rhythm Strip: Sinus Rhythm Rate: 73 Ectopy: None Physical Exam Narrative General: Alert, oriented, no apparent distress HEENT: Atraumatic, normocephalic Eyes: Has some scleral icterus, extraocular movements grossly intact Neck: Supple Respiratory: Slightly diminished at the bases, normal respiratory effort Cardiovascular: Irregularly irregular, not tachycardic GI: Somewhat protuberant, slightly tender diffusely, no rebound, guarding, rigidity Extremities: No significant edema Musculoskeletal: Moving all extremities Neuro: No overt focal neurological deficits Skin: No rashes appreciated Psych: Cooperative Assessment & Plan Assessment/Plan (1) Acute pancreatitis: QUALIFIERS: Pancreatitis type: biliary Acute pancreatitis complication: no infection or necrosis Qualified Code(s): K85.10 - Biliary acute pancreatitis without necrosis or infection (2) Elevated liver enzymes: PLAN: Plan 73 gentleman history of CAD status post non-ST segment elevation LA with PTCA and stents on antiplatelet therapy presents with worsening abdominal pain and discovered to have cholestatic hepatitis and pancreatitis likely secondary to underlying choledocholithiasis. -Postop day 3 from ERCP with stone removal, stricture dilation and biliary stent placement -Patient is also status post cholecystectomy -Liver enzymes are improving very slowly. -Continue to monitor Charges/Coding Visit Charges Inpatient E&M: 78213 [facility] Hosp L3
[2023-07-03] MEDS: Allopurinol 100 MG Tablet 200 MG PO (09:22)
[2023-07-03] MEDS: Metoprolol Tartrate 50 MG Tablet 75 MG PO ×2 (09:22→21:38)
[2023-07-03] MEDS: Nystatin Powder 15gm Bottle 1 APPLIC TOPICAL ×2 (10:45→21:39)
[2023-07-03] MEDS: Polyethylene Glycol 3350 17 GM PACKET PO (10:55)
[2023-07-03] MEDS: Furosemide 40 MG Tablet PO (12:50)
[2023-07-03 13:06] LABS: Bedside Glucose 159 mg/dL (74-106)
[2023-07-03] MEDS: BENZOCAINE/MENTHOL 1 LOZENGE MUCOUS MEM ×2 (13:48→18:03)
[2023-07-03] MEDS: oxyCODONE 5 MG Tablet PO ×3 (13:48→22:39)
[2023-07-03 17:30] LABS: Bedside Glucose 148 mg/dL (74-106)
[2023-07-03] MEDS: Atorvastatin Calcium 80 MG Tablet PO (21:39)
[2023-07-04 01:20] LABS: Bedside Glucose 201 mg/dL (74-106)
[2023-07-04 03:35] VITALS: BP 129/72; PULSE 86; RESP 18; TEMP 36.4; O2SAT 93
[2023-07-04 03:41] VITALS: BMI 41.3
[2023-07-04] MEDS: Insulin Lispro 100 UNIT/ML INSULN.PEN SC ×3 (06:33→21:11)
[2023-07-04 06:38] LABS: Absolute Lymphocyte Count 1.12 X10^3/uL (0.83-4.51); Absolute Neutrophil Count 6.5 X10^3/uL (2.0-7.7); Basophil# 0.02 X10^3/uL; Basophil% 0.2 % (0-1); Eosinophil# 0.13 X10^3/uL; Eosinophils% 1.5 % (0-5); Hematocrit 41.3 % (40-54); Hemoglobin 13.2 g/dL (13.0-16.5); Lymphocyte # 1.12 X10^3/ul (0.83-4.51); Lymphocyte % 13.2 % (19-41); Mean Corpuscular Hgb 30.4 pg (27.0-32.0); Mean Corpuscular Volume 95.2 fL (80-94); Mean Platelet Vol. 10.8 fl (6.2-12.0); Monocyte# 0.68 X10^3/uL; NRBC Flagged by Analyzer 0 % (0-5); Neutrophil # 6.48 X10^3/uL (2.7-7.7); Neutrophil % 76.7 % (47-70); Platelet Count 133 K/mm3 (150-450); RBC Distribution Width CV 15.1 % (11.6-14.6); RBC Distribution Width SD 52.6 fl (35.1-43.9); Red Blood Count 4.34 M/mm3 (4.6-6.2); White Blood Count 8.5 K/mm3 (4.4-11.0)
[2023-07-04 06:53] LABS: Bedside Glucose 159 mg/dL (74-106)
[2023-07-04 07:13] LABS: ALB/GLOB Ratio 0.6 RATIO (0.9-2.4); AST(SGOT) 39 U/L (15-37); Alanine Aminotransfer ALT/SGPT 79 U/L (16-61); Albumin, Serum 2.6 g/dL (3.2-5.0); Alkaline Phosphatase 221 U/L (45-117); Anion Gap 8 (5-15); BUN 30 mg/dL (7-18); BUN/Creat Ratio 20.4 RATIO (10-20); Calcium,Total 8.6 mg/dL (8.5-10.1); Chloride 102 mmol/L (98-107); Creatinine, Serum 1.47 mg/dL (0.70-1.30); EST Glomerular Filtration Rate 50 mL/min (>60); Est Glom Filt Rate - Afr Amer 60 mL/min (>60); Estimated Creatinine Clearance 44.09 ml/min; Globulin 4.3 g/dL (2.2-4.2); Glucose 159 mg/dL (74-106); Potassium 3.9 mmol/L (3.5-5.1); Protein, Total 6.9 g/dL (6.4-8.2); Sodium Level 136 mmol/L (136-145)
--- NOTE | 2023-07-04 08:39 | PN.SURG_ITS ---
Subjective Subjective Patient seen and examined during AM rounds. Nursing reports that they did not administer lactulose yesterday because patient began having bowel movements. He reports 3 total bowel movements overnight. He states that he still feels some abdominal distention but continues to feel better each day. Objective Data Objective Data Vital Signs: Vital Signs Temp Pulse Resp BP Pulse Ox O2 Del Method O2 Flow Rate 97.6 F L 86 18 129/72 H 93 Room Air 2 07/04/23 03:35 07/04/23 03:35 07/04/23 03:35 07/04/23 03:35 07/04/23 03:35 07/04/23 07:01 07/03/23 08:57 FiO2 96 07/02/23 11:04 Oxygen Flow Rate (L/min) 2 Oxygen Delivery Method Room Air Weight: 280 lb 3.32 oz Body Mass Index (BMI) 41.3 Intake & Output: Intake and Output for Last 24 Hours 07/02/23 07/03/23 07/04/23 23:59 23:59 23:59 Intake Total 2744.6 / 2864.6 1630 / 1990 435 / 435 Output Total 500 / 900 1300 / 1300 250 / 250 Balance 2244.6 / 1964.6 330 / 690 185 / 185 Lab / Micro Data 07/04/23 06:08 07/04/23 06:08 Labs: Laboratory Results - last 24 hr 07/03/23 12:44: POC Glucose 159 H 07/03/23 17:08: POC Glucose 148 H 07/03/23 21:36: POC Glucose 201 H 07/04/23 06:08: WBC 8.5, RBC 4.34 L, Hgb 13.2, Hct 41.3, MCV 95.2 H, MCH 30.4, MCHC 32.0, RDW Std Deviation 52.6 H, RDW Coeff of Raphael 15.1 H, Plt Count 133 L, MPV 10.8, Immature Gran % (Auto) 0.400, Neut % (Auto) 76.7 H, Lymph % (Auto) 13.2 L, [place] % (Auto) 8.0, Eos % (Auto) 1.5, Baso % (Auto) 0.2, Absolute Neuts (auto) 6.5, Absolute Lymphs (auto) 1.12, Nucleated RBC % 0, Sodium 136, Potassium 3.9, Chloride 102, Carbon Dioxide 26.0, Anion Gap 8, BUN 30 H, Creatinine 1.47 H, Estim Creat Clear Calc 44.09, Est GFR (MDRD) Af Amer 60, Est GFR (MDRD) Non-Af 50 L, BUN/Creatinine Ratio 20.4 H, Glucose 159 H, Calcium 8.6, Total Bilirubin 2.20 H, AST 39 H, ALT 79 H, Alkaline Phosphatase 221 H, Total Protein 6.9, Albumin 2.6 L, Globulin 4.3 H, Albumin/Globulin Ratio 0.6 L 07/04/23 06:29: POC Glucose 159 H Micro: Microbiology 06/28/23 18:10 Nasal Secretion SARS-CoV-2 Antigen (Rapid) - Final Rhythm Strip Rhythm Strip: Sinus Rhythm Rate: 73 Ectopy: None Physical Exam Const oriented x3 and no apparent distress GI GI Narrative: Somewhat distended, tender to palpation about incisions. Port sites with Steri- Strips still intact. There is no drainage. Assessment & Plan Assessment/Plan (1) Acute pancreatitis: QUALIFIERS: Pancreatitis type: biliary Acute pancreatitis complication: no infection or necrosis Qualified Code(s): K85.10 - Biliary acute pancreatitis without necrosis or infection (2) Elevated liver enzymes: (3) Biliary colic: (4) Acute exacerbation of CHF (congestive heart failure): PLAN: Plan This is a 73-year-old male with complex past medical history?inclusive of some recent chest discomfort?who presents with acute onset abdominal pain and evidence of acute pancreatitis, hepatitis, and abnormal gallbladder imaging. He was ultimately found to have choledocholithiasis with ERCP on 07/01/2023 and is now postoperative day 2 from laparoscopic cholecystectomy with intraoperative cholangiogram. He continues to recover as expected from a surgical standpoint. He was able to have a bowel movement without the addition of lactulose yesterday. His labs continue to improve. Therefore, from a surgical standpoint he is cleared for discharge to home. I would like him to follow-up with me as an outpatient within 1 week to assure that his wounds are healing and his recovery continues to proceed appropriately. He should be encouraged to maintain a bowel regimen if he is discharged with narcotic pain medication. Charges/Coding Visit Charges Inpatient E&M: 99905 Subs Hosp L2
[2023-07-04 08:49] VITALS: BP 132/80; PULSE 88; RESP 15; TEMP 36.9; O2SAT 94
[2023-07-04] MEDS: BENZOCAINE/MENTHOL 1 LOZENGE MUCOUS MEM ×2 (08:54→12:29)
[2023-07-04] MEDS: Polyethylene Glycol 3350 17 GM PACKET PO (08:54)
[2023-07-04] MEDS: Allopurinol 100 MG Tablet 200 MG PO (08:55)
[2023-07-04] MEDS: Furosemide 40 MG Tablet PO (08:55)
[2023-07-04] MEDS: Aspirin E.C. 81 MG Tablet PO (08:55)
[2023-07-04] MEDS: oxyCODONE 5 MG Tablet PO ×2 (08:55→21:35)
[2023-07-04 08:56] VITALS: BP 132/80; PULSE 88
[2023-07-04] MEDS: Metoprolol Tartrate 50 MG Tablet 75 MG PO (08:56)
[2023-07-04] MEDS: Pantoprazole Sodium 40 MG Tablet PO (12:03)
[2023-07-04] MEDS: Nystatin Powder 15gm Bottle 1 APPLIC TOPICAL ×2 (12:03→21:10)
[2023-07-04 12:23] LABS: Bedside Glucose 197 mg/dL (74-106)
[2023-07-04] MEDS: Acetaminophen 325 MG Tablet 650 MG PO ×2 (12:29→21:11)
--- NOTE | 2023-07-04 13:27 | PCM.PN.HOSP ---
Reason for Visit Reason for Visit: Diagnoses Atherosclerotic heart disease of [place] coronary artery with unspecified angina pectoris (06/28/23) Ischemic cardiomyopathy (06/28/23) Chronic systolic (congestive) heart failure (06/28/23) Heart failure, unspecified (06/28/23) Calculus of bile duct without cholangitis or cholecystitis without obstruction (06/28/23) Biliary acute pancreatitis without necrosis or infection (06/28/23) Chronic kidney disease, stage 3b (06/28/23) Abnormal levels of other serum enzymes (06/28/23) Encounter for preprocedural cardiovascular examination (06/28/23) Subjective Subjective Patient felt fairly short of breath when walking around the halls but overall does report feeling better and had several bowel movements. No peripheral edema, had several nonsustained bouts of tachycardia with heart rate closer to 150s but they were self-limited Objective Data Objective Data Vital Signs: Vital Signs Temp Pulse Resp BP Pulse Ox O2 Del Method O2 Flow Rate 98.4 F 88 15 132/80 H 94 Room Air 2 07/04/23 08:49 07/04/23 08:56 07/04/23 08:49 07/04/23 08:56 07/04/23 08:49 07/04/23 08:50 07/03/23 08:57 FiO2 96 07/02/23 11:04 Oxygen Flow Rate (L/min) 2 Oxygen Delivery Method Room Air Weight: 127.1 kg Body Mass Index (BMI) 41.3 Intake & Output: Intake and Output for Last 24 Hours 07/02/23 07/03/23 07/04/23 23:59 23:59 23:59 Intake Total 2744.6 / 2864.6 1630 / 1990 1055 / 1055 Output Total 500 / 900 1300 / 1300 1000 / 1000 Balance 2244.6 / 1964.6 330 / 690 55 / 55 Lab / Micro Data 07/04/23 06:08 07/04/23 06:08 Labs: Laboratory Results - last 24 hr 07/03/23 17:08: POC Glucose 148 H 07/03/23 21:36: POC Glucose 201 H 07/04/23 06:08: WBC 8.5, RBC 4.34 L, Hgb 13.2, Hct 41.3, MCV 95.2 H, MCH 30.4, MCHC 32.0, RDW Std Deviation 52.6 H, RDW Coeff of Raphael 15.1 H, Plt Count 133 L, MPV 10.8, Immature Gran % (Auto) 0.400, Neut % (Auto) 76.7 H, Lymph % (Auto) 13.2 L, [place] % (Auto) 8.0, Eos % (Auto) 1.5, Baso % (Auto) 0.2, Absolute Neuts (auto) 6.5, Absolute Lymphs (auto) 1.12, Nucleated RBC % 0, Sodium 136, Potassium 3.9, Chloride 102, Carbon Dioxide 26.0, Anion Gap 8, BUN 30 H, Creatinine 1.47 H, Estim Creat Clear Calc 44.09, Est GFR (MDRD) Af Amer 60, Est GFR (MDRD) Non-Af 50 L, BUN/Creatinine Ratio 20.4 H, Glucose 159 H, Calcium 8.6, Total Bilirubin 2.20 H, AST 39 H, ALT 79 H, Alkaline Phosphatase 221 H, Total Protein 6.9, Albumin 2.6 L, Globulin 4.3 H, Albumin/Globulin Ratio 0.6 L 07/04/23 06:29: POC Glucose 159 H 07/04/23 12:02: POC Glucose 197 H Micro: Microbiology 06/28/23 18:10 Nasal Secretion SARS-CoV-2 Antigen (Rapid) - Final Rhythm Strip Rhythm Strip: Sinus Rhythm Rate: 73 Ectopy: None Physical Exam Narrative General: Alert, oriented, no apparent distress HEENT: Atraumatic, normocephalic Eyes: Has some scleral icterus, extraocular movements grossly intact Neck: Supple Respiratory: Worsened crackles, normal respiratory effort Cardiovascular: Irregularly irregular, not tachycardic GI: Somewhat protuberant, slightly softer, less tender, no rebound, guarding, rigidity Extremities: No edema Musculoskeletal: Moving all extremities Neuro: No overt focal neurological deficits Skin: No rashes appreciated Psych: Cooperative Assessment & Plan Assessment/Plan (1) Acute pancreatitis: QUALIFIERS: Acute pancreatitis complication: no infection or necrosis Pancreatitis type: biliary Qualified Code(s): K85.10 - Biliary acute pancreatitis without necrosis or infection (2) Elevated liver enzymes: (3) Chronic HFrEF (heart failure with reduced ejection fraction): (4) Chronic kidney disease: QUALIFIERS: Chronic kidney disease stage: stage 3 (moderate) Chronic kidney disease stage 3 subtype: stage 3b (GFR 30-44) Qualified Code(s): N18.32 - Chronic kidney disease, stage 3b PLAN: Plan #Abdominal pain secondary to acute on chronic gallstone pancreatitis -Patient with a lipase level of more than [address] abdomen pelvis with contrast showed normal pancreas patient also has symptoms consistent with pancreatitis so we will treat as pancreatitis, especially as patient has gallstones, epigastric pain and right upper quadrant pain. -Patient kept n.p.o. except ice and sips with meds. -Morphine as needed for pain -06/29: MRCP ordered, discussed with GI and is felt he needs ERCP however given his cardiac history, elevated troponin, elevated BNP and recent chest pain cardiology evaluation advised prior to patient undergoing anesthesia, cardiology consulted especially given his recent need for nitroglycerin use and high risk for surgery to help optimize patient medically to minimize risk is much as possible. Echocardiogram ordered and pending -06/30: MRCP unremarkable, troponin has now down trended so plan has been for ERCP this afternoon, did have accelerated heart rate this a.m. which will be treated with Cardizem per cards, continue Zosyn -07/01: Status post ERCP with choledocholithiasis found with biliary sphincterotomy and balloon extraction and biliary tree sweep with upper third of the main bile duct dilated with temporary stent. Patient for cholecystectomy this afternoon if doing well -07/02: Patient status post lap dhiraj today, GI and surgery following, will add incentive spirometer -07/03: Diet advanced, pain control, d/c'd zosyn, diet advanced -07/04: Patient now having bowel movements and is improving, will need to follow-up with Dr. Lemons as an outpatient in 1 week #Accelerated heart rate?A-fib with RVR with RVR resolved -Appears to be A-fib on EKG, on Coreg, will be started on Cardizem per cardiology -07/01: Rate controlled with diltiazem and carvedilol, continue to optimize medically, cardiology following -07/02: Patient transition to metoprolol and off Cardizem drip -07/03: Doing well on metoprolol -07/04: Has had some brief short bursts of tachycardia over the past 24 hours, increasing beta-trav. Additionally CHADS2-VASc is 5, will need started on full dose anticoagulation now that we are postsurgery #Hyperbilirubinemia Bilirubin level of 2.70. Of note his bilirubin on 06/17/2023 today was 0.8. Liver chemistry is elevated; trend. Ultrasound gallbladder with gallbladder sludge; asymmetric irregular tough gallbladder wall thickening versus mass. With history of heart failure counseled use of IV fluids. Placed on normal saline 75 MLS per hour. ED doctor discussed case with general surgery who recommended MRCP. MRCP ordered. General surgery consult. -06/29: Liver function and bili worsened today with AST 295, ALT 314, alk phos 315 and total bili up to 4.7. GI to plan for ERCP after cardiac optimization, discussed with surgery and it was advised MRCP either way as if patient has any mass he will need hepatobiliary surgery if not we can consider further management here post ERCP -06/30: Increased bili with downtrending LFTs, see above -07/01: LFTs downtrending from yesterday after ERCP, patient for lap dhiraj this afternoon date continues to improve, lap dhiraj this a.m., was delayed due to patient's perioperative risk -07/02: Status post lap dhiraj 07/02 -07/03: Slowly improving -07/04: Continuing to improve #Chronic heart failure with reduced ejection fraction -Impression of chest x-ray by radiology: The Left is enlarged with slight central pulmonary vascular prominence. -Echocardiogram on 11/16/2022 showed ejection fraction 45%. [place] severely hypokinetic; moderate-severe hypokinetic. Mild eccentric mitral valve insufficiency. Mild aortic stenosis. -Echocardiogram on 04/17/2021 also showed EF of 45% -06/29: Patient with elevated BNP but no respiratory distress and vitally stable, will repeat echocardiogram, daily weights, I's and O's. Patient's Lasix were held, given increase in BNP and hemodynamic stability we will hold fluids pending further evaluation -06/30: Continue to monitor fluid status, does not appear to be fluid overloaded at this time -07/01: Weight up very slightly from admission but vitally stable and not overtly overloaded, continue to monitor -07/02: Monitor hemodynamics and respiratory status, will need to cautiously introduce Lasix moving forward and be cautious with any IV fluids -07/03: Does have slightly elevated BUN and creatinine though not overt YADIRA, patient to eat normal diet today, continue to monitor, patient is up in weight, cannot rule out cardiorenal, pt has crackles and with weight up will resume lasix -07/04: Patient is weight up and today crackles have extended up further, patient also noted he felt winded when walking around which is likely multifactorial however will give a dose of IV Lasix as I suspect this is contributing, patient is better overall, will need follow-up with cardiology on discharge #Elevated troponin -Suspect this is all due to myocardial strain secondary to underlying illness however has been having to take his nitroglycerin recently -Troponin 76 with repeat 85 and subsequent 83, unclear why fourth troponin was checked but it was 108. Do not suspect ACS as cause at present -We will check echocardiogram -Continue fluids but monitor carefully due to history of heart failure date cardiology consulted especially given recent cardiac complaints -06/30: Did downtrend this a.m., still suspect that this is all demand given his current illness -07/02: This was checked again preop yesterday and has continued to downtrend -07/03: Checked again preop 07/02 and had returned to normal #History of coronary artery disease -Does have history of stent placement -Continue beta-trav and statin -Follows with cardiology on outpatient basis -06/30: Continue current management #Type 2 diabetes mellitus -Glucose checks and sliding scale insulin #CKD stage IIIb Stable Trend CMP -06/29: Appears to be at baseline, avoid nephrotoxic agents, continue fluids -07/03: Has been variable, BUN and creatinine slightly up from past 2 days but similar to presentation, encourage p.o., continue monitor fluid status -07/04: Creatinine improved today DVT prophylaxis SCDs Time spent in the patient's overall evaluation,decision-making process, review of diagnostic data, adjustment of management, discussion with other providers, nursing nursing and ancillary staff involved in patient's care documentation, 51 minutes. Charges/Coding Visit Charges Inpatient E&M: 29575 [facility] Hosp L3
[2023-07-04 14:55] VITALS: BP 123/82; PULSE 79; RESP 14; TEMP 36.6; O2SAT 94
[2023-07-04] MEDS: Furosemide 20 MG/2 ML VIAL IV (15:00)
[2023-07-04] MEDS: 0.9% Saline Lock 10 ML Syringe IV (15:00)
[2023-07-04 17:35] LABS: Bedside Glucose 133 mg/dL (74-106)
[2023-07-04 21:06] VITALS: BP 144/79; PULSE 99; RESP 18; TEMP 36.4; O2SAT 93
[2023-07-04 21:10] VITALS: BP 144/79; PULSE 99
[2023-07-04] MEDS: Metoprolol Tartrate 100 MG Tablet PO (21:10)
[2023-07-04] MEDS: Atorvastatin Calcium 80 MG Tablet PO (21:12)
[2023-07-04] MEDS: APIXABAN 5 MG TABLET PO (21:19)
[2023-07-04 21:34] LABS: Bedside Glucose 275 mg/dL (74-106)
[2023-07-05 03:15] VITALS: BP 121/83; PULSE 89; RESP 18; TEMP 37; O2SAT 93
[2023-07-05] MEDS: Acetaminophen 325 MG Tablet 650 MG PO (03:47)
[2023-07-05 04:27] LABS: Absolute Lymphocyte Count 1.52 X10^3/uL (0.83-4.51); Absolute Neutrophil Count 7.6 X10^3/uL (2.0-7.7); Basophil# 0.05 X10^3/uL; Basophil% 0.5 % (0-1); Eosinophil# 0.26 X10^3/uL; Eosinophils% 2.5 % (0-5); Hematocrit 43.5 % (40-54); Hemoglobin 13.7 g/dL (13.0-16.5); Lymphocyte # 1.52 X10^3/ul (0.83-4.51); Lymphocyte % 14.5 % (19-41); Mean Corp Hgb Conc 31.5 g/dL (32-36); Mean Corpuscular Hgb 29.9 pg (27.0-32.0); Monocyte# 0.98 X10^3/uL; Monocyte% 9.4 % (0-10); NRBC Flagged by Analyzer 0 % (0-5); Neutrophil # 7.61 X10^3/uL (2.7-7.7); Neutrophil % 72.5 % (47-70); Platelet Count 178 K/mm3 (150-450); RBC Distribution Width CV 15.1 % (11.6-14.6); RBC Distribution Width SD 53.4 fl (35.1-43.9); Red Blood Count 4.58 M/mm3 (4.6-6.2); White Blood Count 10.5 K/mm3 (4.4-11.0)
[2023-07-05 05:06] LABS: ALB/GLOB Ratio 0.5 RATIO (0.9-2.4); AST(SGOT) 56 U/L (15-37); Alanine Aminotransfer ALT/SGPT 75 U/L (16-61); Albumin, Serum 2.5 g/dL (3.2-5.0); Alkaline Phosphatase 237 U/L (45-117); Anion Gap 5 (5-15); BUN 30 mg/dL (7-18); BUN/Creat Ratio 20.8 RATIO (10-20); Calcium,Total 8.5 mg/dL (8.5-10.1); Chloride 104 mmol/L (98-107); Creatinine, Serum 1.44 mg/dL (0.70-1.30); EST Glomerular Filtration Rate 51 mL/min (>60); Est Glom Filt Rate - Afr Amer 62 mL/min (>60); Estimated Creatinine Clearance 45.01 ml/min; Globulin 4.7 g/dL (2.2-4.2); Glucose 160 mg/dL (74-106); Potassium 4.2 mmol/L (3.5-5.1); Protein, Total 7.2 g/dL (6.4-8.2); Sodium Level 136 mmol/L (136-145)
[2023-07-05 05:39] VITALS: BMI 41.3
[2023-07-05] MEDS: Insulin Lispro 100 UNIT/ML INSULN.PEN SC ×2 (06:37→11:32)
[2023-07-05 07:03] LABS: Bedside Glucose 192 mg/dL (74-106)
--- NOTE | 2023-07-05 08:03 | PCM.PN.SRG ---
Subjective Subjective Patient seen and evaluated during AM rounds. He is found sitting out of bed eating his breakfast. He states that his appetite is not yet returned and he feels like he has become full quickly. He does note that chocolate milk seems to be well-tolerated. Lastly he remarks of some diarrhea experienced yesterday. Objective Data Objective Data Vital Signs: Vital Signs Temp Pulse Resp BP Pulse Ox O2 Del Method O2 Flow Rate 98.6 F 89 18 121/83 H 93 Room Air 2 07/05/23 03:15 07/05/23 03:15 07/05/23 03:15 07/05/23 03:15 07/05/23 03:15 07/05/23 03:15 07/03/23 08:57 FiO2 96 07/02/23 11:04 Oxygen Flow Rate (L/min) 2 Oxygen Delivery Method Room Air Weight: 279 lb 15.793 oz Body Mass Index (BMI) 41.3 Intake & Output: Intake and Output for Last 24 Hours 07/03/23 07/04/23 07/05/23 23:59 23:59 23:59 Intake Total 1630 / 1990 1580 / 1820 240 / 240 Output Total 1300 / 1300 2200 / 2600 400 / 400 Balance 330 / 690 -620 / -780 -160 / -160 Lab / Micro Data 07/05/23 03:35 07/05/23 03:35 Labs: Laboratory Results - last 24 hr 07/04/23 12:02: POC Glucose 197 H 07/04/23 17:16: POC Glucose 133 H 07/04/23 21:09: POC Glucose 275 H 07/05/23 03:35: WBC 10.5, RBC 4.58 L, Hgb 13.7, Hct 43.5, MCV 95.0 H, MCH 29.9, MCHC 31.5 L, RDW Std Deviation 53.4 H, RDW Coeff of Raphael 15.1 H, Plt Count 178, MPV 11.0, Immature Gran % (Auto) 0.600, Neut % (Auto) 72.5 H, Lymph % (Auto) 14.5 L, [place] % (Auto) 9.4, Eos % (Auto) 2.5, Baso % (Auto) 0.5, Absolute Neuts (auto) 7.6, Absolute Lymphs (auto) 1.52, Nucleated RBC % 0, Sodium 136, Potassium 4.2, Chloride 104, Carbon Dioxide 27.0, Anion Gap 5, BUN 30 H, Creatinine 1.44 H, Estim Creat Clear Calc 45.01, Est GFR (MDRD) Af Amer 62, Est GFR (MDRD) Non-Af 51 L, BUN/Creatinine Ratio 20.8 H, Glucose 160 H, Calcium 8.5, Total Bilirubin 2.00 H, AST 56 H, ALT 75 H, Alkaline Phosphatase 237 H, Total Protein 7.2, Albumin 2.5 L, Globulin 4.7 H, Albumin/Globulin Ratio 0.5 L 07/05/23 06:34: POC Glucose 192 H Micro: Microbiology 06/28/23 18:10 Nasal Secretion SARS-CoV-2 Antigen (Rapid) - Final Rhythm Strip Rhythm Strip: Sinus Rhythm Rate: 73 Ectopy: None Physical Exam Const oriented x3 and no apparent distress Resp normal respiratory effort GI GI Narrative: Mildly distended but improved, soft and minimally tender to palpation about port sites. Steri-Strips remain intact. Port sites are otherwise unremarkable with no nadine-incisional erythema or drainage. Assessment & Plan Assessment/Plan (1) Acute pancreatitis: QUALIFIERS: Pancreatitis type: biliary Acute pancreatitis complication: no infection or necrosis Qualified Code(s): K85.10 - Biliary acute pancreatitis without necrosis or infection (2) Elevated liver enzymes: (3) Biliary colic: (4) Acute exacerbation of CHF (congestive heart failure): PLAN: Plan This is a 73-year-old male with complex past medical history?inclusive of some recent chest discomfort?who presented with acute onset abdominal pain and evidence of acute pancreatitis, hepatitis, and abnormal gallbladder imaging. He was ultimately found to have choledocholithiasis with ERCP on 07/01/2023 and is now postoperative day 3 from laparoscopic cholecystectomy with intraoperative cholangiogram. He continues to recover as expected from a surgical standpoint. He continues to have bowel function. I have informed him that some diarrhea following this procedure is to be expected. This could be secondary to the use of antibiotics, empirically, or to his postcholecystectomy state?for both. His labs continue to improve. Given this further improvement, again, from a surgical standpoint he is cleared for discharge to home. I would like him to follow-up with me as an outpatient within 1 week to assure that his wounds are healing and his recovery continues to proceed appropriately. Recommend no lifting greater than 15 pounds for 2 weeks postop. Charges/Coding Visit Charges Inpatient E&M: 09097 Subs Hosp L2
[2023-07-05 08:55] VITALS: BP 141/87; PULSE 102; RESP 17; TEMP 36.7; O2SAT 97
[2023-07-05 09:01] VITALS: PULSE 102
[2023-07-05] MEDS: Aspirin E.C. 81 MG Tablet PO (09:01)
[2023-07-05] MEDS: Metoprolol Tartrate 100 MG Tablet PO (09:01)
[2023-07-05] MEDS: Furosemide 40 MG Tablet PO (09:01)
[2023-07-05] MEDS: Allopurinol 100 MG Tablet 200 MG PO (09:01)
[2023-07-05] MEDS: APIXABAN 5 MG TABLET PO (09:01)
[2023-07-05] MEDS: Polyethylene Glycol 3350 17 GM PACKET PO (09:02)
[2023-07-05] MEDS: Nystatin Powder 15gm Bottle 1 APPLIC TOPICAL (09:02)
[2023-07-05] MEDS: Pantoprazole Sodium 40 MG Tablet PO (09:02)
[2023-07-05 09:17] VITALS: O2SAT 93; O2SAT 94
--- NOTE | 2023-07-05 10:56 | DCINST_ITS ---
Discharge Instructions Diet Discharge Diet: Low fat / Low cholesterol, 6 Cup Fluid Restriction and Carb Control Diet Activity Discharge Activity: May Shower Lifting Restrictions: Do not lift more than 10 pounds for 4 weeks Dressing / Incision Call your doctor if your incision/area has: Continuous Slow Oozing, Increased Redness and Foul Smelling Discharge Call your doctor if you observe: Fever of 101 or Higher, Shortness of breath, Dizziness, Fainting spells, Swelling in the ankles, Chest pain and Increased palpitations (irregular heartbeat) Follow Up Care Test Results: Test results from this visit will be discussed in further detail at your follow- up appointment, if applicable. Discharge Plan Admission Admit Date/Time: 06/28/23 22:07 Attending Provider: Hansel Key Primary Care Provider: Boston Figueroa Consulting Providers: Shadi Lemons; Jose Maria Mcgill; Hany Zacarias; Odalis Flores; Rubi Martin Instructions Additional Instructions / Restrictions: You developed A-fib while here in the hospital which is an abnormal heart rhythm that puts you at risk for stroke, the treatment is Eliquis which is an anticoagulant. I do recommend following up with your primary care doctor with possible referral to cardiology as an outpatient. This does put you at a bleeding risk. We also transition her Coreg to metoprolol to help control your heart rate. Discharge Orders/Prescriptions Prescriptions: New Eliquis 5 mg Tablet 5 mg PO BID Qty: 60 0RF metoprolol tartrate 100 mg Tablet 100 mg PO BID 30 Days Qty: 60 0RF Continued aspirin [Adult Aspirin Regimen] 81 mg tablet,delayed release (DR/EC) 81 mg PO DAILY multivitamin [Daily Multi-Vitamin] tablet 1 tab PO DAILY glipizide 5 mg tablet 5 mg PO BID allopurinol 100 mg tablet 200 mg PO DAILYCM atorvastatin 80 mg tablet 80 mg PO QHS Rx Instructions: TAKE 1 TABLET AT BEDTIME pantoprazole 40 mg tablet,delayed release (DR/EC) 40 mg PO DAILY Qty: 90 3RF furosemide 40 mg tablet 40 mg PO DAILY Qty: 90 3RF nitroglycerin 0.4 mg tablet, sublingual 0.4 mg sublingual Q5-15M PRN (Reason: chest pain) Qty: 25 3RF Rx Instructions: do not exceed 3 doses per episode Discontinued carvedilol 12.5 mg tablet 12.5 mg PO BID Qty: 180 3RF Referrals / Follow Up: Boston Fgiueroa MD [Primary Care Provider] - Within 1 Week Shadi Lemons MD [Med Staff - Active Staff] - Within 1 Month Disposition Disposition (needs filled in before D/C Order can be placed): Home, Self Care
[2023-07-05 11:52] LABS: Bedside Glucose 209 mg/dL (74-106)
[2023-07-05 12:59] VITALS: BP 137/89; PULSE 89; RESP 17; TEMP 36.5; O2SAT 95
--- NOTE | 2023-07-05 12:59 | DS.PCM_ITS ---
Providers Date of Admission: 06/28/23 Primary Care Physician: Dr. Boston Figueroa MD Consultations 06/28/23 23:04 Consult: General Surgery Routine Consulting Provider: Shadi Lemons Reason for Consult: Abdominal pain EMERGENT Consult: No MD Notified: Yes Date Notified: 06/28/23 Time Notified: 22:15 Method of Notification: ED Physician Initiated 06/28/23 23:37 Consult: Gastroenterology Routine Consulting Provider: Jose Maria Mcgill Reason for Consult: Gallstone pancreatitis, hyperbilirubinemia EMERGENT Consult: No MD Notified: Yes Date Notified: 06/29/23 Time Notified: 06:43 Method of Notification: Text 06/29/23 09:33 Consult: Cardiology Routine Consulting Provider: Odalis Flores Reason for Consult: Needs surgery, recent increased nitro use, elevated bnp, elevated trop EMERGENT Consult: No Notified: Yes Date Notified: 06/29/23 Time Notified: 10:03 Method of Notification: Text Reason For Visit: HYPERBILIRUBINEMIA, EPIGASTRIC PAIN Diagnosis Discharge Diagnosis (1) Acute pancreatitis: Status: Acute Code(s): K85.90 - Acute pancreatitis without necrosis or infection, unspecified Qualifiers: Pancreatitis type: biliary Acute pancreatitis complication: no infection or necrosis Qualified Code(s): K85.10 - Biliary acute pancreatitis without necrosis or infection (2) Elevated liver enzymes: Status: Acute Code(s): R74.8 - Abnormal levels of other serum enzymes (3) Biliary colic: Status: Acute Code(s): K80.50 - Calculus of bile duct without cholangitis or cholecystitis without obstruction (4) Acute exacerbation of CHF (congestive heart failure): Status: Chronic Code(s): I50.9 - Heart failure, unspecified Medications at Discharge Home Medications aspirin 81 mg tablet,delayed release (Adult Aspirin Regimen) 81 mg PO DAILY heart health 04/14/18 multivitamin (Daily Multi-Vitamin tablet) 1 tab PO DAILY vitamin 01/25/19 allopurinol 100 mg tablet 200 mg PO DAILYCM GOUT 08/03/22 pantoprazole 40 mg tablet,delayed release 40 mg PO DAILY ppi #90 tabs 08/11/22 glipizide 5 mg tablet 5 mg PO BID diabetes 09/15/22 furosemide 40 mg tablet 40 mg PO DAILY diuretic #90 tabs 02/26/23 nitroglycerin 0.4 mg sublingual tablet 0.4 mg sublingual Q5-15M PRN chest pain #25 tabs 06/09/23 atorvastatin 80 mg tablet 80 mg PO QHS anticholesterol 06/29/23 apixaban 5 mg tablet (Eliquis) 5 mg PO BID #60 tabs 07/05/23 metoprolol tartrate 100 mg tablet 100 mg PO BID 30 days #60 tabs 07/05/23 Hospital Course Operations cholecystecomy and ERCP Procedures 2-D Echocardiogram Summary of Care Provided Minutes Spent on Discharge: 40 Hospital Course: Per HPI: LUIS DEE, is a 73 M [employer] with a significant history of congestive heart failure who presents to the emergency department with excruciating epigastric pain and right upper quadrant pain that started about 30 minutes time after eating; and about 4 and half hours before presentation. Because the pain got worse patient came to emergency department. She described the pain as aching and pressure. Walking made the pain worse. Patient vomited about 2 times and had relief from the pain. Also patient reports intermittent chest pain that started about 4-day before presentation and he has an appointment scheduled with his cardiology. He reports dyspnea on exertion, orthopnea and abdominal swelling. Hospital Course: #Abdominal pain secondary to acute on chronic gallstone pancreatitis -Patient with a lipase level of more than [address] abdomen pelvis with contrast showed normal pancreas patient also has symptoms consistent with pancreatitis so we will treat as pancreatitis, especially as patient has gallstones, epigastric pain and right upper quadrant pain. -Patient kept n.p.o. except ice and sips with meds. -Morphine as needed for pain -06/29: MRCP ordered, discussed with GI and is felt he needs ERCP however given his cardiac history, elevated troponin, elevated BNP and recent chest pain cardiology evaluation advised prior to patient undergoing anesthesia, cardiology consulted especially given his recent need for nitroglycerin use and high risk for surgery to help optimize patient medically to minimize risk is much as possible. Echocardiogram ordered and pending -06/30: MRCP unremarkable, troponin has now down trended so plan has been for ERCP this afternoon, did have accelerated heart rate this a.m. which will be treated with Cardizem per cards, continue Zosyn -07/01: Status post ERCP with choledocholithiasis found with biliary sph incterotomy and balloon extraction and biliary tree sweep with upper third of the main bile duct dilated with temporary stent. Patient for cholecystectomy this afternoon if doing well -07/02: Patient status post lap dhiraj today, GI and surgery following, will add incentive spirometer -07/03: Diet advanced, pain control, d/c'd zosyn, diet advanced -07/04: Patient now having bowel movements and is improving, will need to follow- up with Dr. Lemons as an outpatient in 1 week ? 07/05/2023: I discussed with him the plan for possible discharge today he expressed understanding the risk benefits of going home and would like to go home today. He will need to follow-up with general surgery as well as his [facility] doctor 1 to 2 weeks. #Accelerated heart rate?A-fib with RVR with RVR resolved -Appears to be A-fib on EKG, on Coreg, will be started on Cardizem per cardiology -07/01: Rate controlled with diltiazem and carvedilol, continue to optimize medically, cardiology following -07/02: Patient transition to metoprolol and off Cardizem drip -07/03: Doing well on metoprolol -07/04: Has had some brief short bursts of tachycardia over the past 24 hours, increasing beta-trav. Additionally CHADS2-VASc is 5, will need started on full dose anticoagulation now that we are postsurgery ? 07/05/2023: We will continue with Eliquis on discharge as well as metoprolol, his Coreg was discontinued #Hyperbilirubinemia Bilirubin level of 2.70. Of note his bilirubin on 06/17/2023 today was 0.8. Liver chemistry is elevated; trend. Ultrasound gallbladder with gallbladder sludge; asymmetric irregular tough gallbladder wall thickening versus mass. With history of heart failure counseled use of IV fluids. Placed on normal saline 75 MLS per hour. ED doctor discussed case with general surgery who recommended MRCP. MRCP ordered. General surgery consult. -06/29: Liver function and bili worsened today with AST 295, ALT 314, alk phos 315 and total bili up to 4.7. GI to plan for ERCP after cardiac optimization, discussed with surgery and it was advised MRCP either way as if patient has any mass he will need hepatobiliary surgery if not we can consider further management here post ERCP -06/30: Increased bili with downtrending LFTs, see above -07/01: LFTs downtrending from yesterday after ERCP, patient for lap dhiraj this afternoon date continues to improve, lap dhiraj this a.m., was delayed due to patient's perioperative risk -07/02: Status post lap dhiraj 07/02 -07/03: Slowly improving -07/04: Continuing to improve #Chronic heart failure with reduced ejection fraction -Impression of chest x-ray by radiology: The Left is enlarged with slight central pulmonary vascular prominence. -Echocardiogram on 11/16/2022 showed ejection fraction 45%. Mentor severely hypokinetic; moderate-severe hypokinetic. Mild eccentric mitral valve insufficiency. Mild aortic stenosis. -Echocardiogram on 04/17/2021 also showed EF of 45% -06/29: Patient with elevated BNP but no respiratory distress and vitally stable, will repeat echocardiogram, daily weights, I's and O's. Patient's Lasix were held, given increase in BNP and hemodynamic stability we will hold fluids pending further evaluation -06/30: Continue to monitor fluid status, does not appear to be fluid overloaded at this time -07/01: Weight up very slightly from admission but vitally stable and not overtly overloaded, continue to monitor -07/02: Monitor hemodynamics and respiratory status, will need to cautiously introduce Lasix moving forward and be cautious with any IV fluids -07/03: Does have slightly elevated BUN and creatinine though not overt YADIRA, patient to eat normal diet today, continue to monitor, patient is up in weight, cannot rule out cardiorenal, pt has crackles and with weight up will resume lasix -07/04: Patient is weight up and today crackles have extended up further, patient also noted he felt winded when walking around which is likely multifactorial however will give a dose of IV Lasix as I suspect this is contributing, patient is better overall, will need follow-up with cardiology on discharge ? 07/05/2023: Lungs are diminished today but he is doing well otherwise was ambulating at 98% on room air #Elevated troponin -Suspect this is all due to myocardial strain secondary to underlying illness however has been having to take his nitroglycerin recently -Troponin 76 with repeat 85 and subsequent 83, unclear why fourth troponin was checked but it was 108. Do not suspect ACS as cause at present -We will check echocardiogram -Continue fluids but monitor carefully due to history of heart failure date cardiology consulted especially given recent cardiac complaints -06/30: Did downtrend this a.m., still suspect that this is all demand given his current illness -07/02: This was checked again preop yesterday and has continued to downtrend -07/03: Checked again preop 07/02 and had returned to normal 07/05/2023: Echocardiogram with an EF of 40%, the apex was hypokinetic with evidence of diastolic dysfunction with moderate aortic stenosis. Would recommend outpatient evaluation by cardiology for follow-up on discharge #History of coronary artery disease -Does have history of stent placement -Continue beta-trav and statin -Follows with cardiology on outpatient basis -06/30: Continue current management #Type 2 diabetes mellitus -Glucose checks and sliding scale insulin #CKD stage IIIb Stable Trend CMP -06/29: Appears to be at baseline, avoid nephrotoxic agents, continue fluids -07/03: Has been variable, BUN and creatinine slightly up from past 2 days but similar to presentation, encourage p.o., continue monitor fluid status -07/04: Creatinine improved today 07/05/2023: Creatinine is back to baseline Physical Exam Narrative General: Alert, Oriented x3, Cooperative, No apparent distress HEENT: Atraumatic, PERRLA, EOMI, Normocephalic Oral: Moist Mucosa Neck: Supple, No JVD Lungs: Diminished, Normal air movement, No rhonchi, No wheeze, No rales Cardiovascular: Regular rate, irregular rhythm, Normal S1, Normal S2, No murmurs Abdomen: Soft, Non Tender, Non-Distended, No Hepato-splenomegaly Extremities: No edema, Capillary Refill Less than 3 Seconds Skin: No rashes, No breakdown Musculoskeletal: No Tenderness to Palpation of Joints or Extremities Neurological: Cranial nerves II-XII grossly intact, Motor Exam 5/5 strength throughout, Sensory exam intact to light touch and pain Psych/Mental Status: Normal Affect, Appropriate Weight / BMI Weight Weight: 279 lb 15.793 oz Body Mass Index (BMI) 41.3 ABG / Lab / Microbiology Data 07/05/23 03:35 07/05/23 03:35 Laboratory: Laboratory Results - last 24 hr 07/04/23 17:16: POC Glucose 133 H 07/04/23 21:09: POC Glucose 275 H 07/05/23 03:35: WBC 10.5, RBC 4.58 L, Hgb 13.7, Hct 43.5, MCV 95.0 H, MCH 29.9, MCHC 31.5 L, RDW Std Deviation 53.4 H, RDW Coeff of Raphael 15.1 H, Plt Count 178, MPV 11.0, Immature Gran % (Auto) 0.600, Neut % (Auto) 72.5 H, Lymph % (Auto) 14.5 L, [place] % (Auto) 9.4, Eos % (Auto) 2.5, Baso % (Auto) 0.5, Absolute Neuts (auto) 7.6, Absolute Lymphs (auto) 1.52, Nucleated RBC % 0, Sodium 136, Potassium 4.2, Chloride 104, Carbon Dioxide 27.0, Anion Gap 5, BUN 30 H, Creatinine 1.44 H, Estim Creat Clear Calc 45.01, Est GFR (MDRD) Af Amer 62, Est GFR (MDRD) Non-Af 51 L, BUN/Creatinine Ratio 20.8 H, Glucose 160 H, Calcium 8.5, Total Bilirubin 2.00 H, AST 56 H, ALT 75 H, Alkaline Phosphatase 237 H, Total Protein 7.2, Albumin 2.5 L, Globulin 4.7 H, Albumin/Globulin Ratio 0.5 L 07/05/23 06:34: POC Glucose 192 H 07/05/23 11:28: POC Glucose 209 H Microbiology: Microbiology 06/28/23 18:10 Nasal Secretion SARS-CoV-2 Antigen (Rapid) - Final D/C Instructions Discharge Diet: Low fat / Low cholesterol, 6 Cup Fluid Restriction and Carb Control Diet Call your doctor if your incision/area has: Continuous Slow Oozing, Increased Redness and Foul Smelling Discharge Call your doctor if you observe: Fever of 101 or Higher, Shortness of breath, Dizziness, Fainting spells, Swelling in the ankles, Chest pain and Increased palpitations (irregular heartbeat) Meaningful Use Info Meaningful Use Diagnoses (Choose all that apply): None applicable Discharge Plan Admission Admit Date/Time: 06/28/23 22:07 Attending Provider: Hansel Key Primary Care Provider: Boston Figueroa Consulting Providers: Shadi Lemons; Jose Maria Mcgill; Hany Zacarias; Odalis Flores; Rubi Martin Instructions Additional Instructions / Restrictions: You developed A-fib while here in the hospital which is an abnormal heart rhythm that puts you at risk for stroke, the treatment is Eliquis which is an anticoagulant. I do recommend following up with your primary care doctor with possible referral to cardiology as an outpatient. This does put you at a bleeding risk. We also transition her Coreg to metoprolol to help control your heart rate. Discharge Orders/Prescriptions Prescriptions: New Eliquis 5 mg Tablet 5 mg PO BID Qty: 60 0RF metoprolol tartrate 100 mg Tablet 100 mg PO BID 30 Days Qty: 60 0RF Continued aspirin [Adult Aspirin Regimen] 81 mg tablet,delayed release (DR/EC) 81 mg PO DAILY multivitamin [Daily Multi-Vitamin] tablet 1 tab PO DAILY glipizide 5 mg tablet 5 mg PO BID allopurinol 100 mg tablet 200 mg PO DAILYCM atorvastatin 80 mg tablet 80 mg PO QHS Rx Instructions: TAKE 1 TABLET AT BEDTIME pantoprazole 40 mg tablet,delayed release (DR/EC) 40 mg PO DAILY Qty: 90 3RF furosemide 40 mg tablet 40 mg PO DAILY Qty: 90 3RF nitroglycerin 0.4 mg tablet, sublingual 0.4 mg sublingual Q5-15M PRN (Reason: chest pain) Qty: 25 3RF Rx Instructions: do not exceed 3 doses per episode Discontinued carvedilol 12.5 mg tablet 12.5 mg PO BID Qty: 180 3RF Referrals / Follow Up: Boston Figueroa MD [Primary Care Provider] - Within 1 Week Shadi Lemons MD [Med Staff - Active Staff] - In 1 Week Disposition Disposition (needs filled in before D/C Order can be placed): Home, Self Care Charges/Coding Visit Charges Inpatient E&M: 26038 Disch Hosp >30min
== END 2023-07-05 13:15 | disposition home or self-care (01) | DRG 417 ==
LOC: ED 22:21 → PCU 22:26
PROVIDERS: Anesthesiology; Internal Medicine; Internal Medicine Gastroenterology; Surgery; Admitting Provider Hospitalist; Emergency Provider Emergency Medicine; PCP Family Medicine; Visit Provider Family Medicine
PROC: 0FC98ZZ Extirpation of Matter from Common Bile Duct, Via Natural or Artificial Opening Endoscopic (ICD-10-PCS; CPT 43260; principal; 2023-06-30 15:00)
PROC: 0FT44ZZ Resection of Gallbladder, Percutaneous Endoscopic Approach (ICD-10-PCS; CPT 47610; principal; 2023-07-02 06:10)
DX: K80.65 Calculus of gallbladder and bile duct with chronic cholecystitis with obstruction (principal); K85.10 Biliary acute pancreatitis without necrosis or infection; I13.0 Hypertensive heart and chronic kidney disease with heart failure and stage 1 through stage 4 chronic kidney disease, or unspecified chronic kidney disease; I50.22 Chronic systolic (congestive) heart failure; Z68.41 Body mass index [BMI] 40.0-44.9, adult; K86.1 Other chronic pancreatitis; I27.21 Secondary pulmonary arterial hypertension; E11.22 Type 2 diabetes mellitus with diabetic chronic kidney disease; J44.9 Chronic obstructive pulmonary disease, unspecified; N18.32 Chronic kidney disease, stage 3b; I48.91 Unspecified atrial fibrillation; I25.119 Atherosclerotic heart disease of native coronary artery with unspecified angina pectoris; I08.0 Rheumatic disorders of both mitral and aortic valves; K75.89 Other specified inflammatory liver diseases; I25.5 Ischemic cardiomyopathy; E78.5 Hyperlipidemia, unspecified; M10.9 Gout, unspecified; I25.2 Old myocardial infarction; G47.33 Obstructive sleep apnea (adult) (pediatric); R77.8 Other specified abnormalities of plasma proteins; E66.9 Obesity, unspecified; Z79.82 Long term (current) use of aspirin; Z79.84 Long term (current) use of oral hypoglycemic drugs; Z79.01 Long term (current) use of anticoagulants; Z79.899 Other long term (current) drug therapy; Z87.891 Personal history of nicotine dependence; Z95.5 Presence of coronary angioplasty implant and graft
CPT/HCPCS: 36415; 71045; 74177; 74181; 74300; 74330; 76000; 76705; 80053; 82962; 83036; 83690; 83880; 84484; 85025; 87811; 88304; 93005; 93306; 94668; 94762; 99285; J7030; J7040; J7120; Q9957; Q9967; A4216; C8929; J1940; J2405

== ENCOUNTER → 2023-07-13 | Outpatient (CLI) | payer MEDICARE, SELFPAY ==
[2020-03-07 09:49] VITALS: BMI 41.8
--- NOTE | 2023-07-13 15:04 | VDLE_ITS ---
Reason For Study: Right leg swelling RIGHT LEFT GSV is normal. CFV is compressible, spontaneous, phasic, CFV is compressible, spontaneous, phasic, competent, and demonstrates normal competent and demonstrates normal augmentation. augmentation. FV is compressible, spontaneous, phasic, competent and demonstrates normal augmentation. POP V is compressible, spontaneous, phasic, competent and demonstrates normal augmentation. T/P Trunk is compressible. PTV is compressible. RT PerV is compressible. Procedure This is a venous duplex using B-mode, color flow and spectral Doppler. Exam performed in department. A preliminary report was called and/or faxed to Teodora MOROCHO. VL/Venous Duplex US, Unilateral Interpretation Summary There is no evidence of right lower extremity deep vein thrombosis. Right great saphenous vein appears patent and compressible segmentally. Normal flow patterns left common f emoral vein Ordering Physician: Roxann Anthony Referring Physician: Boston Figueroa Performed By: Coreen Sims RVT
== END | disposition home or self-care (01) ==
LOC: CVS 15:03
PROVIDERS: PCP Family Medicine; Referring Provider Physician Assistant; Visit Provider Physician Assistant
DX: M79.89 Other specified soft tissue disorders (principal)
CPT/HCPCS: 93971

== ENCOUNTER 2023-07-17 19:37 | Inpatient (IN) | payer MEDICARE, SELFPAY ==
[2020-03-07 09:49] VITALS: BMI 41.8
[2023-07-17] VITALS (8 sets, daily range): BP systolic 104–118; BP diastolic 67–78; PULSE 101–122; RESP 15–24; TEMP 36.1–36.5; O2SAT 93–98; BMI 40.1; BMI 39.9
--- NOTE | 2023-07-17 20:04 | EKG12_ITS ---
Test Reason : CP Blood Pressure : / mmHG Vent. Rate : 108 BPM Atrial Rate : 000 BPM P-R Int : 000 ms QRS Dur : 098 ms QT Int : 348 ms P-R-T Axes : 000 -25 127 degrees QTc Int : 466 ms Atrial fibrillation with rapid ventricular response Minimal voltage criteria for LVH, may be normal variant ( R in aVL ) ST & T wave abnormality, consider lateral ischemia Abnormal ECG Confirmed by VANDANA MOYER, PAT ([id number]), assistant film editor COLLIN MORENO ([id number]) on 07/20/2023 1:45:53 PM Referred By: Confirmed By:CHIN ROSS MD
--- NOTE | 2023-07-17 20:05 | RAD_ITS ---
INDICATION: chest pain EXAMINATION/TECHNIQUE: X-RAY - XR Chest 1 View COMPARISON: June 08, 2023. FINDINGS: Cardiac silhouette and mediastinal contours are similar to the prior study allowing for low volumes. Pulmonary interstitium is similar prior study as well and is slightly prominent. No pleural effusion. No pneumothorax. No acute bony pathology is identified definitively. There are some left-sided rib deformities which appear chronic. RAD/Chest 1 View (Portable) IMPRESSION: No significant change compared to prior. Stable interstitial prominence. Electronically Signed: Gustavo Chowdhury MD at 20:23 EDT ,
[2023-07-17 20:25] LABS: Absolute Lymphocyte Count 1.73 X10^3/uL (0.83-4.51); Absolute Neutrophil Count 6.7 X10^3/uL (2.0-7.7); Basophil# 0.05 X10^3/uL; Basophil% 0.5 % (0-1); Eosinophil# 0.19 X10^3/uL; Hematocrit 37.8 % (40-54); Hemoglobin 12.2 g/dL (13.0-16.5); Lymphocyte # 1.73 X10^3/ul (0.83-4.51); Lymphocyte % 18.6 % (19-41); Mean Corp Hgb Conc 32.3 g/dL (32-36); Mean Corpuscular Hgb 30.3 pg (27.0-32.0); Mean Platelet Vol. 9.8 fl (6.2-12.0); Monocyte# 0.65 X10^3/uL; NRBC Flagged by Analyzer 0 % (0-5); Neutrophil # 6.67 X10^3/uL (2.7-7.7); Neutrophil % 71.7 % (47-70); Platelet Count 269 K/mm3 (150-450); RBC Distribution Width CV 14.9 % (11.6-14.6); RBC Distribution Width SD 52.1 fl (35.1-43.9); Red Blood Count 4.02 M/mm3 (4.6-6.2); White Blood Count 9.3 K/mm3 (4.4-11.0)
[2023-07-17] MEDS: Ondansetron 4 MG/2 ML Vial IV (20:34)
[2023-07-17] MEDS: Morphine 4 MG/ML Syringe IV (20:34)
[2023-07-17 20:47] LABS: AST(SGOT) 37 U/L (15-37); Alanine Aminotransfer ALT/SGPT 56 U/L (16-61); Albumin, Serum 3.1 g/dL (3.2-5.0); Alkaline Phosphatase 134 U/L (45-117); Globulin 3.8 g/dL (2.2-4.2); Protein, Total 6.9 g/dL (6.4-8.2)
--- NOTE | 2023-07-17 20:54 | CT_ITS ---
INDICATION: Pain EXAMINATION: CT ABDOMEN AND PELVIS WITHOUT CONTRAST - CT Abdomen And Pelvis W/O Contrast Injection TECHNIQUE: Helically acquired images were obtained of the abdomen and pelvis without oral or IV contrast. A radiation dose optimization technique was used for this scan. IV Contrast dosage and agent: None. Oral contrast: None. COMPARISON: July 22, 2021. FINDINGS: There is basilar atelectasis and/or scarring. No pleural effusions. Coronary disease. Trace perihepatic fluid. Cholecystectomy. Minimal air at the gallbladder fossa as well as clips are presumably postsurgical. The patient does have a stent identified within the bile duct coursing into the duodenum. There is trace pneumobilia. Spleen, pancreas and adrenal glands are within normal limits. No bowel obstruction. No bowel wall thickening. No hydronephrosis. Appendectomy. Colonic diverticulosis without diverticulitis. Prostate is normal. Urinary bladder collapsed. No pathologic pelvic or retroperitoneal adenopathy is appreciated. Atherosclerotic aortic disease. No aneurysm. Degenerative changes of the spine are present. CT/Abdomen/Pelvis without Cont IMPRESSION: Postsurgical change right upper quadrant with trace air/fluid at the surgical bed. No obvious abscess. There is a biliary stent noted which courses into the duodenum. Biliary dilatation is not obvious within the limits of a noncontrast study. No acute intra-abdominal process otherwise. Electronically Signed: Gustavo Chowdhury MD at 21:20 EDT ,
[2023-07-17 21:01] LABS: Anion Gap 6 (5-15); BUN 33 mg/dL (7-18); BUN/Creat Ratio 21.4 RATIO (10-20); Calcium,Total 8.8 mg/dL (8.5-10.1); Chloride 104 mmol/L (98-107); Creatinine, Serum 1.54 mg/dL (0.70-1.30); EST Glomerular Filtration Rate 47 mL/min (>60); Est Glom Filt Rate - Afr Amer 57 mL/min (>60); Estimated Creatinine Clearance 42.08 ml/min; Glucose 135 mg/dL (74-106); Lipase 48 U/L (13-75); Potassium 3.8 mmol/L (3.5-5.1); Sodium Level 139 mmol/L (136-145); Troponin-I HS (w/2H Reflex) 592 pg/mL (3.0-78.0)
[2023-07-17] MEDS: Metoprolol Tartrate 5 MG/5 ML Vial IV (21:31)
[2023-07-17] MEDS: Aspirin E.C. 325 MG Tablet PO (21:31)
--- NOTE | 2023-07-17 21:41 | HP.PCM.HOS_ITS ---
[facility] - General General Date of Admission: 07/17/23 Date of Service: 07/17/23 Chief Complaint: CHEST PAIN. HPI Narrative LUIS DEE, is a 73 M with a significant history of heart failure with reduced ejection fraction; CAD status post LAD stent with last stent placed about 2-2 and half years ago for and atrial fibrillation who presents emergency department with intermittent chest pain. He described chest pain as a tightening. Intensity of pain is 8 out of 10. The pain also radiates into the arms shoulder jaws or back. However he has diffused abdominal pain. Associated with symptom is nausea. Initially patient family thought that patient's symptoms were due to acid reflux Troponin was in the 500s. Patient was put on heparin drip. ED doctor discussed the case with cardiology. Patient was hospitalized between July 02 to July 05, 2023 and had a cholecystectomy and biliary stenting at this hospital. [facility] Medical History (Updated 07/18/23 @ 05:[address] Hany Zacarias MD) A-fib Abdominal pain Abnormal stress test (07/2022) Acute exacerbation of CHF (congestive heart failure) Ambulates with cane Atherosclerosis of coronary artery without angina pectoris Bilateral lower extremity edema Cardiology follow-up encounter Chest pain Chronic HFrEF (heart failure with reduced ejection fraction) Chronic kidney disease Chronic kidney disease (CKD) COPD (chronic obstructive pulmonary disease) Coronary artery disease Dermatitis Diastolic dysfunction Elevated liver enzymes Essential (primary) hypertension Fatty liver Former smoker Gastric ulcer GI (gastrointestinal bleed) Gout Heart murmur History of CHF (congestive heart failure) History of heart attack History of non-ST elevation myocardial infarction (NSTEMI) (05/05/21) History of stress test Hyperlipidemia Ischemic cardiomyopathy Kidney stones Low iron Non-rheumatic aortic stenosis Obesity Obstructive sleep apnea Orthopnea Osteoarthritis Secondary pulmonary arterial hypertension Shortness of breath on exertion Type 2 diabetes mellitus Home Medications aspirin 81 mg tablet,delayed release (Adult Aspirin Regimen) 81 mg PO DAILY heart health 04/14/18 [History Last Taken 06/28/23] multivitamin (Daily Multi-Vitamin tablet) 1 tab PO DAILY vitamin 01/25/19 [History Last Taken 06/28/23] allopurinol 100 mg tablet 200 mg PO DAILYCM GOUT 08/03/22 [History Last Taken 06/28/23] pantoprazole 40 mg tablet,delayed release 40 mg PO DAILY ppi #90 tabs 08/11/22 [Rx Last Taken 06/28/23] glipizide 5 mg tablet 5 mg PO BID diabetes 09/15/22 [History Last Taken Unknown] nitroglycerin 0.4 mg sublingual tablet 0.4 mg sublingual Q5-15M PRN chest pain #25 tabs 06/09/23 [Rx Last Taken Unknown] atorvastatin 80 mg tablet 80 mg PO QHS anticholesterol 06/29/23 [History Last Taken Unknown] apixaban 5 mg tablet (Eliquis) 5 mg PO BID #60 tabs 07/05/23 [Rx Last Taken Unknown] metoprolol tartrate 100 mg tablet 100 mg PO BID 30 days #60 tabs 07/05/23 [Rx Last Taken Unknown] furosemide 40 mg tablet 40 mg PO BID diuretic 07/17/23 [History Last Taken Unknown] Allergy/AdvReac Type Severity Reaction Status Date / Time metformin AdvReac Elevated Verified 07/17/23 19:43 LDH and anion gap Family History Mother , Age 80 Diabetes Hypertension Father , Age 55, coma Diabetes Hypertension Sister Hypertension Brother Diabetes Hypertension Cancer, Onset Age: 50 prostate cancer CAD (coronary artery disease) Surgical History (Updated 07/18/23 @ 00:[address] Freda Connolly, DO) History of appendectomy History of cardiac catheterization History of coronary artery stent placement (01/24/20) History of esophagogastroduodenoscopy (EGD) History of herniorrhaphy History of left heart catheterization (07/13/22) History of tonsillectomy History of total knee replacement (TKR) Social History household members: children Smoking Status: Former smoker quit date: 01/31/11 alcohol intake: current alcohol intake frequency: holidays/special occasions only substance use type: does not use caffeine: Yes Type: coffee ROS ROS Narrative Pertinent positives and pertinent negatives as noted in HPI. All other systems were reviewed and are negative Vital Signs Vital Signs Vital Signs: 07/17/23 19:39 07/17/23 19:42 07/17/23 19:51 Temperature 97.0 F L 97.0 F L Temperature Source Temporal Temporal Pulse Rate 117 H 117 H Respiratory Rate 18 18 Respiratory Effort Normal Blood Pressure 115/74 115/74 Blood Pressure Mean 87 87 Pulse Ox 98 98 Oxygen Delivery Method Room Air Room Air 07/17/23 20:21 07/17/23 20:38 07/17/23 21:33 Temperature Temperature Source Pulse Rate 106 H 122 H Respiratory Rate 20 H 15 Respiratory Effort Blood Pressure 104/78 112/67 Blood Pressure Mean 86 82 Pulse Ox 95 95 Oxygen Delivery Method Room Air Room Air Room Air Weight Weight: 123.4 kg Body Mass Index (BMI) 40.1 Physical Exam Narrative Physical exam: General: Well-nourished, well-developed. Head: Normocephalic, atraumatic, no tenderness Eyes: Vision is grossly intact. EOMI ENT, no trauma, moist mucous membranes, no rhinorrhea Neck: Nontender, No thyromegaly. CVS: Regular rate and rhythm. S1-S2 present. No murmur, gallop or rub. Respiratory : clear to auscultation bilaterally, chest wall nontender Abdomen: Supraumbilical area with Steri-Strips. Soft, nontender, distended, normal bowel sounds, no masses : Deferred Back: Nontender, no CVA tenderness Extremities: Nontender full range of motion, no trauma Skin: Normal color, no trauma, abrasions Neuro: Alert, oriented, cranial nerves II through XII grossly intact. Psychiatry: Normal mood. Normal affect. Not depressed. Not anxious. Results Lab / Micro Data 07/18/23 03:10 07/18/23 03:10 Labs: Laboratory Results - last 24 hr 07/17/23 20:17: WBC 9.3, RBC 4.02 L, Hgb 12.2 L, Hct 37.8 L, MCV 94.0, MCH 30.3, MCHC 32.3, RDW Std Deviation 52.1 H, RDW Coeff of Raphael 14.9 H, Plt Count 269, MPV 9.8, Immature Gran % (Auto) 0.200, Neut % (Auto) 71.7 H, Lymph % (Auto) 18.6 L, [place] % (Auto) 7.0, Eos % (Auto) 2.0, Baso % (Auto) 0.5, Absolute Neuts (auto) 6.7, Absolute Lymphs (auto) 1.73, Nucleated RBC % 0, Sodium 139, Potassium 3.8, Chloride 104, Carbon Dioxide 29.0, Anion Gap 6, BUN 33 H, Creatinine 1.54 H, Estim Creat Clear Calc 42.08, Est GFR (MDRD) Af Amer 57 L, Est GFR (MDRD) Non-Af 47 L, BUN/Creatinine Ratio 21.4 H, Glucose 135 H, Calcium 8.8, Total Bilirubin 0.90, Direct Bilirubin 0.60 H, AST 37, ALT 56, Alkaline Phosphatase 134 H, Troponin I High Sens 592 H*, Total Protein 6.9, Albumin 3.1 L, Globulin 3.8, Lipase 48 Radiology Impression Chest X-Ray 07/17/23 20:05 IMPRESSION: No significant change compared to prior. Stable interstitial prominence. Electronically Signed: Gustavo Chowdhury MD at 20:23 EDT , Abdomen/Pelvis CT 07/17/23 20:54 IMPRESSION: Postsurgical change right upper quadrant with trace air/fluid at the surgical bed. No obvious abscess. There is a biliary stent noted which courses into the duodenum. Biliary dilatation is not obvious within the limits of a noncontrast study. No acute intra-abdominal process otherwise. Electronically Signed: Gustavo Chowdhury MD at 21:20 EDT , Assessment & Plan Assessment/Plan (1) NSTEMI, initial episode of care: PLAN: Plan Non-STEMI Place on a monitored bed at PCU Initial high-sensitivity troponin was 592. Trended to 1638 Actual CXR image was independently visualized. No acute cardiopulmonary process was noted. Abdomen/pelvis CT with no acute pathology Actual EKG tracing was independently visualized. EKG tracing showed A-fib with mild RVR. ASA 81 mg p.o. daily ordered Received a sublingual nitroglycerin in the emergency department and then t ransition to nitroglycerin paste. Morphine as needed for pain ordered We will check lipid panel. Statin: High intensity statin continued Anticoagulation: Home Eliquis for A-fib held and started on heparin drip from the ED, continued Stat EKG as needed for chest pain Emergency department doctor discussed the case with cardiology, cardiology consult. Metoprolol continued. Chronic heart failure with reduced ejection fraction Stable interstitial prominence.radiology impression of chest x-ray. Chest x-ray was independent interpreted and agree with the interpretation. Echocardiogram on 06/28/2023 showed EF of 40%. No evidence of patient being in acute exacerbation. Lasix continued. Diabetes mellitus Patient with hyperglycemia on presentation Glipizide held. Accu-Chek with correction scale insulin ordered Correction scale insulin ordered. HTN Blood pressure is stable. Trend blood pressures. Atrial fibrillation: With mild RVR. Metoprolol as above. DVT prophylaxis: Not indicated as patient has been started on heparin drip for NSTEMI.. Time spent in the patient's overall evaluation,decision-making process, review of diagnostic data, adjustment of management, discussion with other providers, nursing nursing and ancillary staff involved in patient's care documentation, 75 minutes. Charges/Coding Visit Charges Inpatient E&M: 29699 Init Hosp L3
--- NOTE | 2023-07-17 21:44 | ED.VIS.CHEST ---
HPI History of Present Illness Chief Complaint: Chest Pain Informant: patient Narrative Narrative: Patient is a 73-year-old male with history of significant past medical history including new atrial fibrillation (on Eliquis and metoprolol), obstructive sleep apnea, coronary artery disease status post stent placement, NSTEMI, ischemic cardiomyopathy, heart failure with reduced ejection fraction and recent laparoscopic cholecystectomy the beginning of this month presenting with vague chest and abdominal pain. He states it almost feels like reflux/pressure. He states he has been having it more over the past few days. He also notes that he has been having a harder time sleeping the past few nights. He feels little bit more bloated/distended. He has been noted constipation seems chronically and more so since his surgery. Has had a poor appetite and states everything just either smells better does not taste good. Notes today he had some fish and did not agree with him and has been feeling worse since. Denies any vomiting. Later reports to me that 2 days ago he had a similar episode and he took an antacid and then a nitro and his symptoms got better. Denies any worsening swelling of his legs as she states that is doing better. States he is on Lasix and urinates frequently because of this. [facility] Medical History (Updated 07/18/23 @ 00:[address] Freda Connolly, DO) A-fib Abdominal pain Abnormal stress test (07/2022) Acute exacerbation of CHF (congestive heart failure) Ambulates with cane Atherosclerosis of coronary artery without angina pectoris Bilateral lower extremity edema Cardiology follow-up encounter Chest pain Chronic HFrEF (heart failure with reduced ejection fraction) Chronic kidney disease Chronic kidney disease (CKD) COPD (chronic obstructive pulmonary disease) Coronary artery disease Dermatitis Diastolic dysfunction Elevated liver enzymes Essential (primary) hypertension Fatty liver Former smoker Gastric ulcer GI (gastrointestinal bleed) Gout Heart murmur History of CHF (congestive heart failure) History of heart attack History of non-ST elevation myocardial infarction (NSTEMI) (05/05/21) History of stress test Hyperlipidemia Ischemic cardiomyopathy Kidney stones Low iron Non-rheumatic aortic stenosis Obesity Obstructive sleep apnea Orthopnea Osteoarthritis Secondary pulmonary arterial hypertension Shortness of breath on exertion Type 2 diabetes mellitus Home Medications aspirin 81 mg tablet,delayed release (Adult Aspirin Regimen) 81 mg PO DAILY heart [facility] 04/14/18 [History Last Taken 06/28/23] multivitamin (Daily Multi-Vitamin tablet) 1 tab PO DAILY vitamin 01/25/19 [History Last Taken 06/28/23] allopurinol 100 mg tablet 200 mg PO DAILYCM GOUT 08/03/22 [History Last Taken 06/28/23] pantoprazole 40 mg tablet,delayed release 40 mg PO DAILY ppi #90 tabs 08/11/22 [Rx Last Taken 06/28/23] glipizide 5 mg tablet 5 mg PO BID diabetes 09/15/22 [History Last Taken Unknown] nitroglycerin 0.4 mg sublingual tablet 0.4 mg sublingual Q5-15M PRN chest pain #25 tabs 06/09/23 [Rx Last Taken Unknown] atorvastatin 80 mg tablet 80 mg PO QHS anticholesterol 06/29/23 [History Last Taken Unknown] apixaban 5 mg tablet (Eliquis) 5 mg PO BID #60 tabs 07/05/23 [Rx Last Taken Unknown] metoprolol tartrate 100 mg tablet 100 mg PO BID 30 days #60 tabs 07/05/23 [Rx Last Taken Unknown] furosemide 40 mg tablet 40 mg PO BID diuretic 07/17/23 [History Last Taken Unknown] Allergy/AdvReac Type Severity Reaction Status Date / Time metformin AdvReac Elevated Verified 07/17/23 19:43 LDH and anion gap Family History Mother , Age 80 Diabetes Hypertension Father , Age 55, coma Diabetes Hypertension Sister Hypertension Brother Diabetes Hypertension Cancer, Onset Age: 50 prostate cancer CAD (coronary artery disease) Surgical History (Updated 07/18/23 @ 00:[address] Freda Connolly, DO) History of appendectomy History of cardiac catheterization History of coronary artery stent placement (01/24/20) History of esophagogastroduodenoscopy (EGD) History of herniorrhaphy History of left heart catheterization (07/13/22) History of tonsillectomy History of total knee replacement (TKR) Social History household members: children Smoking Status: Former smoker quit date: 01/31/11 alcohol intake: current alcohol intake frequency: holidays/special occasions only substance use type: does not use caffeine: Yes Type: coffee ROS ROS ED Constitutional Constitutional ED: Denies chills or fever(s) Cardiovascular Cardiovascular: Reports as per HPI, chest pain and orthopnea Respiratory/Chest Respiratory/Chest: Reports orthopnea; Denies cough or dyspnea Gastrointestinal Gastrointestinal: Reports abdominal pain, constipation and nausea; Denies vomiting Genitourinary Genitourinary ED: Reports urinary frequency Musculoskeletal Musculoskeletal: Denies arthralgias or myalgias Integumentary Denies rash Neurologic Neurologic: Denies headache(s) or weakness Psychiatric Psychiatric: Denies anxiety Hematologic/Lymphatic Hematologic/Lymphatic: Reports easy bleeding and easy bruising EXAM Physical Exam Const Vital Signs: 07/17/23 19:39 07/17/23 19:42 07/17/23 19:51 Temperature 97.0 F L 97.0 F L Temperature Source Temporal Temporal Pulse Rate 117 H 117 H Respiratory Rate 18 18 Respiratory Effort Normal Blood Pressure 115/74 115/74 Blood Pressure Mean 87 87 Pulse Ox 98 98 Oxygen Delivery Method Room Air Room Air 07/17/23 20:21 07/17/23 20:38 Temperature Temperature Source Pulse Rate 106 H Respiratory Rate 20 H Respiratory Effort Blood Pressure 104/78 Blood Pressure Mean 86 Pulse Ox 95 Oxygen Delivery Method Room Air Room Air Positive well nourished, well developed and obese General Appearance ED: well developed Nutritional Appearance: obese HEENT Reports moist mucous membranes Eyes PERRL and EOMs intact bilaterally Neck supple and no JVD Chest Wall inspection of chest normal and palpation of chest normal Resp normal respiratory effort and clear to auscultation bilaterally Auscultation: Negative for rhonchi, wheezes or diminished lung sounds Cardio Rate: tachycardic Rhythm: abnormal rhythm irregularly irregular GI soft to palpation GI Narrative: Protuberant abdomen. No fluid wave present. Mild tenderness palpation of the right mid abdomen. No peritoneal signs. Hypoactive bowel sounds present. Healing laparoscopic surgical incision sites Back/Spine no CVA tenderness Extremity General Extremety ED: Yes edema; Negative for pulses abnormal General Extremity: edema; Negative for pulses abnormal Neuro oriented x3 Sensorium / Orientation: awake and alert Motor Exam: general weakness Psych mental status grossly normal Skin no rashes or lesions noted and no wounds MDM MDM MDM Narrative Medical decision making narrative: Patient is evaluated for sensation of chest discomfort as well as reflux symptoms. He had recent diagnosis of atrial fibrillation as well as recent laparoscopic cholecystectomy with biliary stent placement. He also has a significant history of coronary artery disease and NSTEMI. Not clear if the symptoms are GI/postsurgical in nature or cardiac. Abdominal and cardiac work-up is obtained. Patient is mildly tachycardic however did not have his evening dose of metoprolol. Is given a dose of 5 mg IV metoprolol for better heart rate control. His EKG shows some chronic lateral ischemic changes and atrial fibrillation which is not significantly change from prior EKG. Differential includes ACS, small bowel obstruction, postoperative infection, constipation, dehydration, fluid overload, symptomatic anemia. Patient does not have a leukocytosis. His hemoglobin is mildly low at 12.2 which is a one-point drop from 2 weeks ago however I do not think that would explain all of his symptoms. CMP largely normal however patient has a significantly elevated high since he troponin of 592. Initially patient was given IV Zofran and morphine for symptom control. I started to have more pain and is given sublingual nitroglycerin with improvement of his pain. I did discuss the case with cardiology on-call, Dr. Bae, who is agreeable with a heparin drip and admitting the patient but does not think he requires an emergent cardiac catheterization. Repeat EKG obtained in the ER does not show any dynamic changes. Patient will be admitted for further evaluation of NSTEMI and I presume that his GI symptoms are actually referred cardiac in nature at this time. Patient is given 325 mg of aspirin in the emergency room. He is given enteric-coated as he does have a history of GI bleeding/ulcers. Started on heparin drip. History & Record Review Discussion w/independent historian: Patient Lab Data Attestation: I reviewed the patient's lab results. Labs: Laboratory Results - last 24 hr 07/17/23 20:17 WBC 9.3 RBC 4.02 L Hgb 12.2 L Hct 37.8 L MCV 94.0 MCH 30.3 MCHC 32.3 RDW Std Deviation 52.1 H RDW Coeff of Raphael 14.9 H Plt Count 269 MPV 9.8 Immature Gran % (Auto) 0.200 Neut % (Auto) 71.7 H Lymph % (Auto) 18.6 L [place] % (Auto) 7.0 Eos % (Auto) 2.0 Baso % (Auto) 0.5 Absolute Neuts (auto) 6.7 Absolute Lymphs (auto) 1.73 Nucleated RBC % 0 Sodium 139 Potassium 3.8 Chloride 104 Carbon Dioxide 29.0 Anion Gap 6 BUN 33 H Creatinine 1.54 H Estim Creat Clear Calc 42.08 Est GFR (MDRD) Af Amer 57 L Est GFR (MDRD) Non-Af 47 L BUN/Creatinine Ratio 21.4 H Glucose 135 H Calcium 8.8 Total Bilirubin 0.90 Direct Bilirubin 0.60 H AST 37 ALT 56 Alkaline Phosphatase 134 H Troponin I High Sens 592 H* B-Natriuretic Peptide 1653.1 H Total Protein 6.9 Albumin 3.1 L Globulin 3.8 Lipase 48 Radiography Chest X-Ray - ED: 1 View, Read by ED Physician, Read by Radiologist and No Acute Disease Diagnostic Testing: Clinical Impression(s) from Imaging Studies Chest X-Ray 07/17/23 20:05 IMPRESSION: No significant change compared to prior. Stable interstitial prominence. Electronically Signed: Gustavo Chowdhury MD at 20:23 EDT , Abdomen/Pelvis CT 07/17/23 20:54 IMPRESSION: Postsurgical change right upper quadrant with trace air/fluid at the surgical bed. No obvious abscess. There is a biliary stent noted which courses into the duodenum. Biliary dilatation is not obvious within the limits of a noncontrast study. No acute intra-abdominal process otherwise. Electronically Signed: Gustavo Chowdhury MD at 21:20 EDT , Rhythm Strip Rhythm Strip: A-fib Rate: 108 Ectopy: None EKG Initial EKG: Attestation: I personally reviewed and interpreted this EKG as follows: Interpretation: Atrial Fibrillation Comments: Atrial fibrillation with a rate of 108 bpm Left axis deviation Minimal which is curative. For LVH T wave inversions in 1, aVL, V2 through V6 Compared to prior EKG patient has an elevated heart rate and now has T wave inversions in of the 4 through V6 which are new Follow-up EKG: Attestation: I personally reviewed and interpreted this EKG as follows: Interpretation: Atrial Fibrillation Comments: Atrial fibrillation at a rate of 96 beats per minutes Continued T wave changes in the lateral leads with no acute changes Prior: Unchanged Management Discussion w/another healthcare provider: Hospitalist and Woven Label Designer Discharge Plan Dx/Rx/DC Orders Clinical Impression: NSTEMI, initial episode of care, Chronic HFrEF (heart failure with reduced ejection fraction), Status post cholecystectomy Disposition Disposition: Acute Care Hospital [facility] Discharge Date/Time: 07/17/23 22:59
[2023-07-17] MEDS: HEPARIN/D5w 25,000 UNITS 25,000 UNITS/250 ML IV.SOLN. 10 UNITS CONT INF (21:48)
[2023-07-17 21:50] LABS: BNP,B-Type NATRIURETIC PEPTIDE 1653.1 pg/mL (0-100)
[2023-07-17] MEDS: Nitroglycerin SL (ED/IMG/CATH) 0.4 MG TABLET SL (22:14)
[2023-07-17 22:22] LABS: International Normalized Ratio 1.4; Prothrombin Time (Protime)PT. 16.8 SECONDS (11.7-14.9)
[2023-07-17 22:23] LABS: Reflex Troponin-HS? (from REC) Y
[2023-07-17 22:23] LABS: Partial Thromboplast Time 32.4 Seconds (24.1-36.2)
--- NOTE | 2023-07-17 22:52 | EKG12_ITS ---
Test Reason : REPEAT Blood Pressure : / mmHG Vent. Rate : 096 BPM Atrial Rate : 000 BPM P-R Int : 000 ms QRS Dur : 102 ms QT Int : 364 ms P-R-T Axes : 000 -23 124 degrees QTc Int : 459 ms Atrial fibrillation with premature ventricular or aberrantly conducted complexes Minimal voltage criteria for LVH, may be normal variant ( R in aVL ) ST & T wave abnormality, consider lateral ischemia Abnormal ECG Confirmed by VANDANA MOYER, PAT ([id number]), science editor COLLIN MORENO ([id number]) on 07/20/2023 1:46:19 PM Referred By: Confirmed By:CHIN ROSS MD
[2023-07-17 23:20] LABS: Troponin-I HS 988 pg/mL (3.0-78.0)
[2023-07-17] MEDS: Furosemide 40 MG Tablet PO (23:21)
[2023-07-17] MEDS: Metoprolol Tartrate 100 MG Tablet PO (23:21)
[2023-07-17] MEDS: Atorvastatin Calcium 80 MG Tablet PO (23:21)
[2023-07-17 23:50] LABS: Bedside Glucose 109 mg/dL (74-106)
[2023-07-17] MEDS: Nitroglycerin Oint 1 INCH PACKET TD (23:59)
[2023-07-18] VITALS (12 sets, daily range): BP systolic 99–116; BP diastolic 64–90; PULSE 80–108; RESP 16–18; TEMP 36.4–36.8; O2SAT 94–98; BMI 39.9
[2023-07-18 03:34] LABS: Absolute Lymphocyte Count 2.09 X10^3/uL (0.83-4.51); Absolute Neutrophil Count 6.3 X10^3/uL (2.0-7.7); Basophil# 0.06 X10^3/uL; Basophil% 0.6 % (0-1); Eosinophil# 0.29 X10^3/uL; Eosinophils% 3.1 % (0-5); Hematocrit 35.4 % (40-54); Hemoglobin 11.3 g/dL (13.0-16.5); Lymphocyte # 2.09 X10^3/ul (0.83-4.51); Lymphocyte % 22.1 % (19-41); Mean Corp Hgb Conc 31.9 g/dL (32-36); Mean Corpuscular Hgb 30.3 pg (27.0-32.0); Mean Corpuscular Volume 94.9 fL (80-94); Mean Platelet Vol. 10.3 fl (6.2-12.0); Monocyte# 0.65 X10^3/uL; Monocyte% 6.9 % (0-10); NRBC Flagged by Analyzer 0 % (0-5); Neutrophil # 6.34 X10^3/uL (2.7-7.7); Platelet Count 262 K/mm3 (150-450); RBC Distribution Width CV 15.1 % (11.6-14.6); RBC Distribution Width SD 53.2 fl (35.1-43.9); Red Blood Count 3.73 M/mm3 (4.6-6.2); White Blood Count 9.5 K/mm3 (4.4-11.0)
[2023-07-18 03:40] LABS: Partial Thromboplast Time 51.9 Seconds (24.1-36.2)
[2023-07-18 03:43] LABS: Anion Gap 7 (5-15); BUN 33 mg/dL (7-18); BUN/Creat Ratio 22.4 RATIO (10-20); Calcium,Total 8.3 mg/dL (8.5-10.1); Chloride 104 mmol/L (98-107); Creatinine, Serum 1.47 mg/dL (0.70-1.30); EST Glomerular Filtration Rate 50 mL/min (>60); Est Glom Filt Rate - Afr Amer 60 mL/min (>60); Estimated Creatinine Clearance 44.09 ml/min; Glucose 180 mg/dL (74-106); Potassium 3.8 mmol/L (3.5-5.1); Sodium Level 138 mmol/L (136-145)
[2023-07-18 03:48] LABS: Troponin-I HS 1638 pg/mL (3.0-78.0)
[2023-07-18] MEDS: Ondansetron 4 MG/2 ML Vial IV (04:04)
[2023-07-18] MEDS: 0.9% Saline Lock 10 ML Syringe IV (04:04)
[2023-07-18] MEDS: Morphine 2 MG/ML Syringe IV (04:10)
[2023-07-18 05:38] LABS: Cholesterol 81 mg/dL (200); High Density Lipoprotein 33 mg/dL; Triglycerides 113 mg/dL; Very Low Density Lipoprotein 23 mg/dL (5-40)
[2023-07-18] MEDS: Nitroglycerin Oint 1 INCH PACKET TD ×2 (06:33→18:13)
[2023-07-18] MEDS: Docusate Sodium 100 MG Capsule PO (06:47)
[2023-07-18 07:09] LABS: Bedside Glucose 146 mg/dL (74-106)
--- NOTE | 2023-07-18 07:56 | PN.HOSP_ITS ---
Reason for Visit Reason for Visit: Diagnoses Non-ST elevation (NSTEMI) myocardial infarction (07/17/23) Subjective Subjective Feels well. Objective Data Objective Data Vital Signs: Vital Signs Temp Pulse Resp BP Pulse Ox O2 Del Method 36.6 C 105 H 16 113/90 H 96 Room Air 07/18/23 06:30 07/18/23 06:30 07/18/23 06:30 07/18/23 06:30 07/18/23 06:30 07/18/23 06:30 Oxygen Delivery Method Room Air Weight: 122.5 kg Body Mass Index (BMI) 39.9 Intake & Output: Intake and Output for Last 24 Hours 07/16/23 07/17/23 07/18/23 23:59 23:59 23:59 Intake Total 449.17 / 449.17 Balance 449.17 / 449.17 Lab / Micro Data 07/18/23 03:10 07/18/23 03:10 Labs: Laboratory Results - last 24 hr 07/17/23 20:17: WBC 9.3, RBC 4.02 L, Hgb 12.2 L, Hct 37.8 L, MCV 94.0, MCH 30.3, MCHC 32.3, RDW Std Deviation 52.1 H, RDW Coeff of Raphael 14.9 H, Plt Count 269, MPV 9.8, Immature Gran % (Auto) 0.200, Neut % (Auto) 71.7 H, Lymph % (Auto) 18.6 L, Crisp % (Auto) 7.0, Eos % (Auto) 2.0, Baso % (Auto) 0.5, Absolute Neuts (auto) 6.7, Absolute Lymphs (auto) 1.73, Nucleated RBC % 0, Sodium 139, Potassium 3.8, Chloride 104, Carbon Dioxide 29.0, Anion Gap 6, BUN 33 H, Creatinine 1.54 H, Estim Creat Clear Calc 42.08, Est GFR (MDRD) Af Amer 57 L, Est GFR (MDRD) Non-Af 47 L, BUN/Creatinine Ratio 21.4 H, Glucose 135 H, Calcium 8.8, Total Bilirubin 0.90, Direct Bilirubin 0.60 H, AST 37, ALT 56, Alkaline Phosphatase 134 H, Troponin I High Sens 592 H*, B-Natriuretic Peptide 1653.1 H, Total Protein 6.9, Albumin 3.1 L, Globulin 3.8, Lipase 48 07/17/23 21:50: PT 16.8 H, INR 1.4, APTT 32.4 07/17/23 22:20: Troponin I High Sens 988 H* 07/17/23 23:20: POC Glucose 109 H 07/18/23 03:10: WBC 9.5, RBC 3.73 L, Hgb 11.3 L, Hct 35.4 L, MCV 94.9 H, MCH 30.3, MCHC 31.9 L, RDW Std Deviation 53.2 H, RDW Coeff of Raphael 15.1 H, Plt Count 262, MPV 10.3, Immature Gran % (Auto) 0.300, Neut % (Auto) 67.0, Lymph % (Auto) 22.1, Crisp % (Auto) 6.9, Eos % (Auto) 3.1, Baso % (Auto) 0.6, Absolute Neuts (auto) 6.3, Absolute Lymphs (auto) 2.09, Nucleated RBC % 0, APTT 51.9 H, Sodium 138, Potassium 3.8, Chloride 104, Carbon Dioxide 27.0, Anion Gap 7, BUN 33 H, Creatinine 1.47 H, Estim Creat Clear Calc 44.09, Est GFR (MDRD) Af Amer 60, Est GFR (MDRD) Non-Af 50 L, BUN/Creatinine Ratio 22.4 H, Glucose 180 H, Calcium 8.3 L, Troponin I High Sens 1638 H*, Triglycerides 113, Cholesterol 81, LDL Cholesterol 25, VLDL Cholesterol 23, HDL Cholesterol 33 L 07/18/23 06:31: POC Glucose 146 H Radiography Diagnostic Testing: Radiology Impression Chest X-Ray 07/17/23 20:05 IMPRESSION: No significant change compared to prior. Stable interstitial prominence. Electronically Signed: Gustavo Chowdhury MD at 20:23 EDT , Abdomen/Pelvis CT 07/17/23 20:54 IMPRESSION: Postsurgical change right upper quadrant with trace air/fluid at the surgical bed. No obvious abscess. There is a biliary stent noted which courses into the duodenum. Biliary dilatation is not obvious within the limits of a noncontrast study. No acute intra-abdominal process otherwise. Electronically Signed: Gustavo Chowdhury MD at 21:20 EDT , Rhythm Strip Rhythm Strip: A-fib Rate: 108 Ectopy: None Physical Exam Const alert and no apparent distress Resp normal respiratory effort, no retractions, no use of accessory muscles and clear to auscultation bilaterally Cardio regular rate, regular rhythm, S1 normal heart sound and S2 normal heart sound GI normal to inspection, nondistended, normoactive bowel sounds and soft to palpation GI Narrative: soft. incision clean. Assessment & Plan Assessment/Plan (1) NSTEMI, initial episode of care: PLAN: Troponin trended from 592 to 988 to 1638 Continue ASA 81, atorvastatin 80, metoprolol tartrate 100 BID, heparin gtt Continue nitropaste Cardiology on consult plan for [facility] on 07/19 PLAN: Plan Chronic conditions: * HFrEF: chronic. chronic heart failure with reduced ejection fraction. Stable interstitial prominence.radiology impression of chest x-ray. Chest x-ray was independent interpreted and agree with the interpretation. Echocardiogram on 06/28/2023 showed EF of 40%. No evidence of patient being in acute exacerbation. Lasix continued. * Diabetes mellitus type 2: Glipizide held. Accu-Chek with correction scale insulin ordered * HTN: stable continue metoprolol * Atrial fibrillation: With mild RVR. Metoprolol as above. Apixaban held while on heparin gtt. * gout: continue allopurinol DVT prophylaxis: Not indicated as patient has been started on heparin drip for NSTEMI.. Charges/Coding Visit Charges Inpatient E&M: 29362 Subs Hosp L2
[2023-07-18] MEDS: Metoprolol Tartrate 100 MG Tablet PO ×2 (08:40→21:51)
[2023-07-18] MEDS: Allopurinol 100 MG Tablet 200 MG PO (08:41)
[2023-07-18] MEDS: Multivitamins,Therapeutic Tablet 1 TABLET PO (08:41)
[2023-07-18] MEDS: Aspirin E.C. 81 MG Tablet PO (08:41)
[2023-07-18] MEDS: Furosemide 40 MG Tablet PO ×2 (08:41→16:48)
[2023-07-18] MEDS: Pantoprazole Sodium 40 MG Tablet PO (08:41)
--- NOTE | 2023-07-18 09:25 | CON.PCM.CA_ITS ---
Assessment & Plan Assessment/Plan (1) NSTEMI, initial episode of care: PLAN: He presents with a non-ST elevation myocardial infarction. My recommendation at this time is to proceed with a left catheterization and depending on the findings further recommendations will be made. In the meantime he will continue on his aspirin as well as his heparin. (2) A-fib: QUALIFIERS: Atrial fibrillation type: persistent (not longstanding) Qualified Code(s): I48.19 - Other persistent atrial fibrillation PLAN: He appears to be in atrial fibrillation which is persistent. He has been on Eliquis which has been discontinued and we will continue this after the procedure. (3) History of coronary artery stent placement: PLAN: He does have a history of coronary artery disease. His last catheterization a year ago demonstrated patency of his stents with residual disease. The plan be to continue the current medical therapy with no changes. He will undergo a left heart catheterization. (4) Non-rheumatic aortic stenosis: PLAN: He does have evidence of aortic stenosis which appears to be mild my recommendation at this time will be to continue the same without making any major changes. (5) Essential (primary) hypertension: PLAN: His blood pressure is under good control at this particular time. The plan will be to continue him on the current medical therapy. Thank you for allowing me to participate in the care of your patient. Please don't hesitate to call if any issues arise. (6) Chronic HFrEF (heart failure with reduced ejection fraction): PLAN: He does have chronic heart failure with reduced ejection fraction estima kole at 45%. I will recommend that we continue him on the current medication with diuretics with intravenous Lasix. He may be a candidate for [facility] as an outpatient. HPI Consult Data Date of Consult: 07/19/23 HPI Narrative HPI Narrative: LUIS DEE, is a 73 M who presents with shortness of breath and mild chest discomfort to the emergency room. The patient had recently been admitted with abdominal discomfort and was noted to have cholecystitis and underwent cholecystectomy and ERCP with stent placement. He presents approximately 2 weeks later with the above. He has history of significant past medical history including new atrial fibrillation (on Eliquis and metoprolol), obstructive sleep apnea, coronary artery disease status post stent placement who underwent cardiac catheterization in July 2022 demonstrating mild diffuse disease in the right coronary artery and previously stented LAD which was patent with significant disease involving the 2 diagonal vessels with jailed stent and moderate disease in the circumflex artery. He also has ischemic cardiomyopathy, heart failure with reduced ejection fraction and mild aortic stenosis with a mean gradient of 18 mmHg and an ejection fraction of 45%. He recently underwent laparoscopic cholecystectomy the beginning of this month presenting with vague chest and abdominal pain. He states it almost feels like reflux/pressure. He states he has been having it more over the past few days. He also notes that he has been having a harder time sleeping the past few nights. He feels little bit more bloated/distended. He has been noted constipation seems chronically and more so since his surgery. [facility] Medical History (Updated 07/18/23 @ 09:[address] Sabas Bae MD) A-fib Abdominal pain Abnormal stress test (07/2022) Acute exacerbation of CHF (congestive heart failure) Ambulates with cane Atherosclerosis of coronary artery without angina pectoris Bilateral lower extremity edema Cardiology follow-up encounter Chest pain Chronic kidney disease Chronic kidney disease (CKD) COPD (chronic obstructive pulmonary disease) Coronary artery disease Dermatitis Diastolic dysfunction Elevated liver enzymes Essential (primary) hypertension Fatty liver Former smoker Gastric ulcer GI (gastrointestinal bleed) Gout Heart murmur History of CHF (congestive heart failure) History of heart attack History of non-ST elevation myocardial infarction (NSTEMI) (05/05/21) History of stress test Hyperlipidemia Ischemic cardiomyopathy Kidney stones Low iron Non-rheumatic aortic stenosis Obesity Obstructive sleep apnea Orthopnea Osteoarthritis Secondary pulmonary arterial hypertension Shortness of breath on exertion Type 2 diabetes mellitus Medical History no medical history no medical history Home Medications aspirin 81 mg tablet,delayed release (Adult Aspirin Regimen) 81 mg PO DAILY heart health 04/14/18 [History Last Taken 06/28/23] multivitamin (Daily Multi-Vitamin tablet) 1 tab PO DAILY vitamin 01/25/19 [History Last Taken 06/28/23] allopurinol 100 mg tablet 200 mg PO DAILYCM GOUT 08/03/22 [History Last Taken 06/28/23] pantoprazole 40 mg tablet,delayed release 40 mg PO DAILY ppi #90 tabs 08/11/22 [Rx Last Taken 06/28/23] glipizide 5 mg tablet 5 mg PO BID diabetes 09/15/22 [History Last Taken Unknown] nitroglycerin 0.4 mg sublingual tablet 0.4 mg sublingual Q5-15M PRN chest pain #25 tabs 06/09/23 [Rx Last Taken Unknown] atorvastatin 80 mg tablet 80 mg PO QHS anticholesterol 06/29/23 [History Last Taken Unknown] apixaban 5 mg tablet (Eliquis) 5 mg PO BID #60 tabs 07/05/23 [Rx Last Taken Unknown] metoprolol tartrate 100 mg tablet 100 mg PO BID 30 days #60 tabs 07/05/23 [Rx Last Taken Unknown] furosemide 40 mg tablet 40 mg PO BID diuretic 07/17/23 [History Last Taken Unknown] isosorbide mononitrate 30 mg tablet,extended release 24 hr 30 mg PO DAILY #30 tabs 07/19/23 [Rx Last Taken Unknown] Allergy/AdvReac Type Severity Reaction Status Date / Time metformin AdvReac Elevated Verified 07/17/23 19:43 LDH and anion gap Family History Mother , Age 80 Diabetes Hypertension Father , Age 55, coma Diabetes Hypertension Sister Hypertension Brother Diabetes Hypertension Cancer, Onset Age: 50 prostate cancer CAD (coronary artery disease) Surgical History History of appendectomy History of cardiac catheterization History of coronary artery stent placement (01/24/20) History of esophagogastroduodenoscopy (EGD) History of herniorrhaphy History of left heart catheterization (07/13/22) History of tonsillectomy History of total knee replacement (TKR) Social History household members: children Smoking Status: Former smoker quit date: 01/31/11 alcohol intake: current alcohol intake frequency: holidays/special occasions only substance use type: does not use caffeine: Yes Type: coffee ROS Constitutional Constitutional: Denies fever(s) or weight loss Eyes Eyes: Reports systems reviewed and no addt'l complaints, except as documented ENT HEENT: Reports systems reviewed and no addt'l complaints, except as documented Cardiovascular Cardiovascular: Denies chest pain at rest, chest pain with activity, dyspnea at rest, dyspnea on exertion, edema, palpitations or paroxysmal nocturnal dyspnea Respiratory/Chest Respiratory/Chest: Denies dyspnea on exertion, productive cough, shortness of breath at rest or shortness of breath with exertion Gastrointestinal Gastrointestinal: Denies change in bowel habits, nausea, vomiting or weight changes Genitourinary Genitourinary: Denies difficulty urinating Musculoskeletal Musculoskeletal: Denies joint stiffness or muscle weakness Integumentary Integumentary: Denies lesions Neurologic Neurologic: Denies dizziness or syncope Psychiatric Psychiatric: Denies anxiety Endocrine Endocrinology: Denies excessive sweating or fatigue Hematologic/Lymphatic Hematologic/Lymphatic: Denies anemia Allergic/Immunologic Allergic/Immunologic: Denies seasonal rhinorrhea Physical Exam Const alert, oriented x3 and no apparent distress General Appearance: cooperative HEENT hearing grossly normal bilaterally Head and Scalp: atraumatic Eyes EOMs intact bilaterally Neck General: normal visual inspection Chest inspection of chest normal and palpation of chest normal Resp normal respiratory effort Auscultation: clear to auscultation bilaterally Cardio S1 normal heart sound and S2 normal heart sound Jugular Venous Distention: JVD Rhythm: abnormal rhythm irregularly irregular GI normal to inspection, nondistended, normoactive bowel sounds Extremity normal capillary refill and no pedal edema Peripheral Pulses: Yes pulses 2+ throughout and femoral pulses present Skin no rashes or lesions noted Neuro oriented x3 and CN's II-XII intact bilaterally Psych Appearance: grossly normal and appropriate Risk Stratification Risk Stratification Applicable: Yes Age >/= 65: Yes >/= 3 CAD Risk Factors (HTN, HLD, DM, family hx of CAD, or current smoker): Yes Aspirin Use in the Past 7 Days: No Severe Angina (>/= episodes in 24 hours): No EKG ST Changes >/= 0.5mm: No Positive Cardiac Marker: Yes VICTOR M Risk Stratification Score: 3 VICTOR M % Risk: 13% Risk Objective Data Vital Signs: Vital Signs Temp Pulse Resp BP Pulse Ox O2 Del Method 97.6 F L 108 H 18 116/64 94 Room Air 07/18/23 08:51 07/18/23 08:51 07/18/23 08:51 07/18/23 08:51 07/18/23 08:51 07/18/23 08:51 Oxygen Delivery Method Room Air Weight: 270 lb 1.06 oz Body Mass Index (BMI) 39.9 Intake & Output: Intake and Output for Last 24 Hours 07/16/23 07/17/23 07/18/23 23:59 23:59 23:59 Intake Total 449.17 / 449.17 Balance 449.17 / 449.17 Lab / Micro Data 07/19/23 10:46 07/19/23 10:46 Labs: Laboratory Results - last 24 hr 07/17/23 20:17: WBC 9.3, RBC 4.02 L, Hgb 12.2 L, Hct 37.8 L, MCV 94.0, MCH 30.3, MCHC 32.3, RDW Std Deviation 52.1 H, RDW Coeff of Raphael 14.9 H, Plt Count 269, MPV 9.8, Immature Gran % (Auto) 0.200, Neut % (Auto) 71.7 H, Lymph % (Auto) 18.6 L, [place] % (Auto) 7.0, Eos % (Auto) 2.0, Baso % (Auto) 0.5, Absolute Neuts (auto) 6.7, Absolute Lymphs (auto) 1.73, Nucleated RBC % 0, Sodium 139, Potassium 3.8, Chloride 104, Carbon Dioxide 29.0, Anion Gap 6, BUN 33 H, Creatinine 1.54 H, Es nery Creat Clear Calc 42.08, Est GFR (MDRD) Af Amer 57 L, Est GFR (MDRD) Non-Af 47 L, BUN/Creatinine Ratio 21.4 H, Glucose 135 H, Calcium 8.8, Total Bilirubin 0.90, Direct Bilirubin 0.60 H, AST 37, ALT 56, Alkaline Phosphatase 134 H, Troponin I High Sens 592 H*, B-Natriuretic Peptide 1653.1 H, Total Protein 6.9, Albumin 3.1 L, Globulin 3.8, Lipase 48 07/17/23 21:50: PT 16.8 H, INR 1.4, APTT 32.4 07/17/23 22:20: Troponin I High Sens 988 H* 07/17/23 23:20: POC Glucose 109 H 07/18/23 03:10: WBC 9.5, RBC 3.73 L, Hgb 11.3 L, Hct 35.4 L, MCV 94.9 H, MCH 30.3, MCHC 31.9 L, RDW Std Deviation 53.2 H, RDW Coeff of Raphael 15.1 H, Plt Count 262, MPV 10.3, Immature Gran % (Auto) 0.300, Neut % (Auto) 67.0, Lymph % (Auto) 22.1, [place] % (Auto) 6.9, Eos % (Auto) 3.1, Baso % (Auto) 0.6, Absolute Neuts (auto) 6.3, Absolute Lymphs (auto) 2.09, Nucleated RBC % 0, APTT 51.9 H, Sodium 138, Potassium 3.8, Chloride 104, Carbon Dioxide 27.0, Anion Gap 7, BUN 33 H, Creatinine 1.47 H, Estim Creat Clear Calc 44.09, Est GFR (MDRD) Af Amer 60, Est GFR (MDRD) Non-Af 50 L, BUN/Creatinine Ratio 22.4 H, Glucose 180 H, Calcium 8.3 L, Troponin I High Sens 1638 H*, Triglycerides 113, Cholesterol 81, LDL Cholest jon 25, VLDL Cholesterol 23, HDL Cholesterol 33 L 07/18/23 06:31: POC Glucose 146 H Rhythm Strip Rhythm Strip: A-fib Rate: 108 Ectopy: None Cardiology Labs/Tests 07/17/23 20:17: WBC 9.3, RBC 4.02 L, Hgb 12.2 L, Hct 37.8 L, MCV 94.0, MCH 30.3, MCHC 32.3, Plt Count 269, MPV 9.8, Immature Gran % (Auto) 0.200, Neut % (Auto) 71.7 H, Lymph % (Auto) 18.6 L, [place] % (Auto) 7.0, Eos % (Auto) 2.0, Baso % (Auto) 0.5, Absolute Neuts (auto) 6.7, Nucleated RBC % 0, Sodium 139, Potassium 3.8, Chloride 104, Carbon Dioxide 29.0, Anion Gap 6, BUN 33 H, Creatinine 1.54 H , Est GFR (MDRD) Af Amer 57 L, Est GFR (MDRD) Non-Af 47 L, BUN/Creatinine Ratio 21.4 H, Glucose 135 H, Calcium 8.8, Total Bilirubin 0.90, Direct Bilirubin 0.60 H, B-Natriuretic Peptide 1653.1 H 07/17/23 21:50: PT 16.8 H, INR 1.4, APTT 32.4 07/18/23 03:10: WBC 9.5, RBC 3.73 L, Hgb 11.3 L, Hct 35.4 L, MCV 94.9 H, MCH 30.3, MCHC 31.9 L, Plt Count 262, MPV 10.3, Immature Gran % (Auto) 0.300, Neut % (Auto) 67.0, Lymph % (Auto) 22.1, [place] % (Auto) 6.9, Eos % (Auto) 3.1, Baso % (Auto) 0.6, Absolute Neuts (auto) 6.3, Nucleated RBC % 0, APTT 51.9 H, Sodium 138, Potassium 3.8, Chloride 104, Carbon Dioxide 27.0, Anion Gap 7, BUN 33 H, Creatinine 1.47 H, Est GFR (MDRD) Af Amer 60, Est GFR (MDRD) Non-Af 50 L, BUN/Cr eatinine Ratio 22.4 H, Glucose 180 H, Calcium 8.3 L, Triglycerides 113, Cholesterol 81, LDL Cholesterol 25, VLDL Cholesterol 23, HDL Cholesterol 33 L Rhythm: EKG: ECHO: Stress Test: Cardiac Cath: PCI: CT Surgery: Holter monitor: EPS: PPM: CXR: Chest CT Scan: Radiography Diagnostic Testing: Radiology Impression Chest X-Ray 07/17/23 20:05 IMPRESSION: No significant change compared to prior. Stable interstitial prominence. Electronically Signed: Gustavo Chowdhury MD at 20:23 EDT , Abdomen/Pelvis CT 07/17/23 20:54 IMPRESSION: Postsurgical change right upper quadrant with trace air/fluid at the surgical bed. No obvious abscess. There is a biliary stent noted which courses into the duodenum. Biliary dilatation is not obvious within the limits of a noncontrast study. No acute intra-abdominal process otherwise. Electronically Signed: Gustavo Chowdhury MD at 21:20 EDT ,
[2023-07-18 10:50] LABS: Partial Thromboplast Time 59.7 Seconds (24.1-36.2)
[2023-07-18] MEDS: Insulin Lispro 100 UNIT/ML INSULN.PEN SC ×2 (10:56→16:47)
[2023-07-18 11:27] LABS: Bedside Glucose 167 mg/dL (74-106)
[2023-07-18 15:59] LABS: Partial Thromboplast Time 58.4 Seconds (24.1-36.2)
[2023-07-18] MEDS: HEPARIN/D5w 25,000 UNITS 25,000 UNITS/250 ML IV.SOLN. 11 UNITS CONT INF (19:41)
[2023-07-18 21:03] LABS: Bedside Glucose 162 mg/dL (74-106)
[2023-07-18] MEDS: MELATONIN 3 MG TABLET PO ×2 (21:52)
[2023-07-18] MEDS: Atorvastatin Calcium 80 MG Tablet PO (21:52)
[2023-07-18 22:15] LABS: Partial Thromboplast Time 57.1 Seconds (24.1-36.2)
[2023-07-18 23:21] LABS: Bedside Glucose 149 mg/dL (74-106)
[2023-07-19] VITALS (7 sets, daily range): BP systolic 115–127; BP diastolic 75–92; PULSE 66–90; RESP 16–18; TEMP 36.4–36.6; O2SAT 93–97; BMI 40.3
[2023-07-19] MEDS: Aspirin E.C. 81 MG Tablet PO (05:33)
[2023-07-19] MEDS: Metoprolol Tartrate 100 MG Tablet PO (05:33)
[2023-07-19] MEDS: Nitroglycerin Oint 1 INCH PACKET TD (05:33)
[2023-07-19] MEDS: 0.9% Normal Saline (1000mL) 1,000 ML 15 ML IV (05:40)
[2023-07-19 06:03] LABS: Bedside Glucose 132 mg/dL (74-106)
--- NOTE | 2023-07-19 09:35 | CASEMGMT ---
Insurance review for hospitals In-network with [facility] insurance if transfer is recommended is as follows: [facility], [employer], [facility], [facility], [facility], [facility], [facility]), and . Mable Robertson, Discharge Planning Asst.
--- NOTE | 2023-07-19 09:44 | PN.CARD_ITS ---
Subjective Subjective Patient seen and evaluated. Underwent cardiac catheterization today. Objective Data Vital Signs: Vital Signs Temp Pulse Resp BP Pulse Ox O2 Del Method 97.8 F 90 18 115/90 H 95 Room Air 07/19/23 05:40 07/19/23 05:40 07/19/23 05:40 07/19/23 05:40 07/19/23 07:36 07/19/23 07:36 Oxygen Delivery Method Room Air Weight: 272 lb 14.916 oz Body Mass Index (BMI) 40.3 Intake & Output: Intake and Output for Last 24 Hours 07/17/23 07/18/23 07/19/23 23:59 23:59 23:59 Intake Total 1344.80 / 1344.80 0.25 / 0.25 Output Total 400 / 400 250 / 250 Balance 944.80 / 944.80 -249.75 / -249.75 Lab / Micro Data 07/18/23 03:10 07/18/23 03:10 Labs: Laboratory Results - last 24 hr 07/18/23 09:55: APTT 59.7 H 07/18/23 10:53: POC Glucose 167 H 07/18/23 15:30: APTT 58.4 H 07/18/23 16:42: POC Glucose 162 H 07/18/23 21:51: POC Glucose 149 H 07/18/23 21:53: APTT 57.1 H 07/19/23 05:32: POC Glucose 132 H Rhythm Strip Rhythm Strip: A-fib Rate: 108 Ectopy: None Cardiology Labs/Tests 07/18/23 09:55: APTT 59.7 H 07/18/23 15:30: APTT 58.4 H 07/18/23 21:53: APTT 57.1 H Rhythm: EKG: ECHO: Stress Test: Cardiac Cath: PCI: CT Surgery: Holter monitor: EPS: PPM: CXR: Chest CT Scan: Physical Exam Const alert, oriented x3 and no apparent distress General Appearance: cooperative HEENT hearing grossly normal bilaterally Head and Scalp: atraumatic Eyes EOMs intact bilaterally Neck General: normal visual inspection Chest inspection of chest normal and palpation of chest normal Resp normal respiratory effort Auscultation: clear to auscultation bilaterally Cardio S1 normal heart sound and S2 normal heart sound Jugular Venous Distention: JVD Rhythm: abnormal rhythm irregularly irregular GI normal to inspection, nondistended, normoactive bowel sounds Extremity normal capillary refill and no pedal edema Peripheral Pulses: Yes pulses 2+ throughout and femoral pulses present Skin no rashes or lesions noted Neuro oriented x3 and CN's II-XII intact bilaterally Psych Appearance: grossly normal and appropriate Assessment & Plan Assessment/Plan (1) NSTEMI, initial episode of care: PLAN: He presents with a non-ST elevation myocardial infarction. He underwent a cardiac catheterization today which demonstrated the following: Normal left main coronary artery. Left anterior descending artery with mild diffuse disease in the previously stented vessel and a diagonal branch which is subtotally occluded and jailed. Left circumflex artery with mild diffuse disease previously stented in the m idsegment and the first obtuse marginal branch with no stent stenosis. Right coronary artery previously stented diffusely diseased especially involving the mid and distal portion in the branches of the posterior descending artery with no vessel amenable to PCI. Based on the above angiographic findings after review with debeader the plan will be to continue with aggressive medical therapy. (2) A-fib: QUALIFIERS: Atrial fibrillation type: persistent (not longstanding) Qualified Code(s): I48.19 - Other persistent atrial fibrillation PLAN: He appears to be in atrial fibrillation which is persistent. He has been on Eliquis which restarted post procedure (3) History of coronary artery stent placement: PLAN: He does have a history of coronary artery disease. His last catheterization a year ago demonstrated patency of his stents with residual disease. The plan be to continue the current medical therapy with no changes. He will undergo a left heart catheterization. (4) Non-rheumatic aortic stenosis: PLAN: He does have evidence of aortic stenosis which appears to be mild my recommendation at this time will be to continue the same without making any major changes. (5) Essential (primary) hypertension: PLAN: His blood pressure is under good control at this particular time. The plan will be to continue him on the current medical therapy. Thank you for allowing me to participate in the care of your patient. Please don't hesitate to call if any issues arise. (6) Chronic HFrEF (heart failure with reduced ejection fraction): PLAN: He does have chronic heart failure with reduced ejection fraction estimated at 45%. I will recommend that we continue him on the current medication with diuretics with intravenous Lasix. He may be a candidate for [facility] as an outpatient.
--- NOTE | 2023-07-19 09:57 | CL.D_ITS ---
Patient Name: LUIS DEE Study Date: 07/19/2023 Performing: Sabas Bae MD Ht: 69 inches 175.26 cm : 1950 Wt: 273.3 lbs 123.8 kg Age: 73 Gender: male BSA: 2.36 PROCEDURE(S) PERFORMED [id number])[facility] CL[facility]ICAL PROFILE AND INDICATIONS Indications: Worsening Angina Heart Failure: NYHA Class: 3, Newly Diagnosed: Yes, Heart Failure Type: Diastolic Stress/Imaging Stress/Image Study Performed: No CAD Presentations: Non-STEMI. Symptom onset Date/Time: 07/17/23 Time Not Available CONCLUSIONS Diffuse triple-vessel disease previously stented vessels are noted to be patent and in comparison to the previous cardiac catheterization from July 2022 the above findings are essentially unchanged. RECOMMENDATIONS Medical therapy DESCRIPTION OF PROCEDURE The patient arrived to the procedure lab. The risks and benefits of the procedure as well as a full description of our services here and current unavailability of surgical backup were fully explained to the patient and/or their significant other prior to the catheterization. The Timeout was completed, verifying the correct patient and procedure. The patient's procedural site was prepped and draped in the usual fashion. Local anesthetic was given subcutaneously to right radial region with Lidocaine 2%. Using a modified Seldinger technique, arterial access was obtained via the right radial artery, a 6Fr sheath was inserted. Left Coronary Artery selective angiography was performed in multiple views using a 5 Fr. 4.0 [place] catheter. Right Coronary Artery selective angiography was then performed in multiple views using a 5 Fr. 4.0 [place] catheter.The arterial sheath was pulled and a TR Band was applied for hemostasis. 8cc of air CORONARY ANGIOGRAPHY DOMINANCE: Right Dominant LEFT HEART ASSESSMENT Left Ventricular Ejection Fraction: by Echo 45 % Global Hypokinesis - Mild Depressed Left Ventricular systolic function LEFT MAIN: Mild calcification, No significant disease noted LEFT ANTERIOR DESCENDING ARTERY: Left anterior descending artery is noted to be patent previously stented with a large diagonal vessel which is subtotally occluded and jailed by the stent. Mild diffuse distal disease is noted. CIRCUMFLEX ARTERY: Nondominant vessel with first obtuse marginal branch which is previously stented with ostial 30% stenosis and no evidence of in-stent stenosis and main circumflex artery previously stented with no evidence of in-stent stenosis. Mild distal diffuse disease is noted. CIRCUMFLEX: Circumflex: Nondominant vessel with first obtuse marginal branch which is previously stented with ostial 30% stenosis and no evidence of in-stent stenosis and main circumflex artery previously stented with no evidence of in-stent stenosis. Mild distal diffuse disease is noted. RIGHT CORONARY ARTERY: Dominant large right coronary artery with proximal 30% stenosis mid segment previously placed stent which is patent and distal diffuse disease involving the posterior descending artery and posterolateral vessels. COMPLICATIONS No Complications PROCEDURE MEDICATIONS Fentanyl 50 mcg IV Versed 1 mg IV Oxygen: 2 L/min via nasal cannula Heparin given IA 07/19/2023 09:26:08 Verapamil 2.5mg, 3000 units of Heparin given IA 07/19/2023 09:26:08 SUMMARY OF HEMODYNAMIC DATA Time AIR REST ECG 09:07:53 Art 116/59 (80) 09:26:43 AO 118/65 (89) SA 09:29:35 Signed By Sabas Bae MD On 07/19/2023 09:57:05 Sabas Bae MD
--- NOTE | 2023-07-19 10:00 | CASEMGMT ---
BAILEE CALIX chart review: Patient was admitted 06/28-07/05/23 for hyperbilirubinemia and epigastric pain. See RN CM assessment from 06/29/23. Patient was discharged to home with follow-up plans in place. Patient returned to [facility] ED on 07/17/23 for chest pain and was admitted for NSTEMI. BAILEE CALIX in to discuss readmission and needs at discharge. Patient states he was taking his medications as prescribed. Patient states he followed up with PCP and surgeon on 07/13. Patient denies needs at discharge. Patient to discharge with follow-u plans in place. Patient had no further questions or concerns at this time.
[2023-07-19] MEDS: Multivitamins,Therapeutic Tablet 1 TABLET PO (10:36)
[2023-07-19] MEDS: Pantoprazole Sodium 40 MG Tablet PO (10:36)
[2023-07-19] MEDS: Furosemide 40 MG Tablet PO (10:36)
[2023-07-19] MEDS: Allopurinol 100 MG Tablet 200 MG PO (10:36)
[2023-07-19 10:54] LABS: Absolute Lymphocyte Count 1.17 X10^3/uL (0.83-4.51); Absolute Neutrophil Count 4.4 X10^3/uL (2.0-7.7); Basophil# 0.05 X10^3/uL; Basophil% 0.8 % (0-1); Eosinophil# 0.21 X10^3/uL; Eosinophils% 3.3 % (0-5); Hematocrit 36.7 % (40-54); Hemoglobin 11.5 g/dL (13.0-16.5); Lymphocyte # 1.17 X10^3/ul (0.83-4.51); Lymphocyte % 18.5 % (19-41); Mean Corp Hgb Conc 31.3 g/dL (32-36); Mean Corpuscular Hgb 29.6 pg (27.0-32.0); Mean Corpuscular Volume 94.6 fL (80-94); Mean Platelet Vol. 9.9 fl (6.2-12.0); Monocyte# 0.49 X10^3/uL; Monocyte% 7.8 % (0-10); NRBC Flagged by Analyzer 0 % (0-5); Neutrophil # 4.37 X10^3/uL (2.7-7.7); Neutrophil % 69.3 % (47-70); Platelet Count 196 K/mm3 (150-450); RBC Distribution Width CV 15.2 % (11.6-14.6); RBC Distribution Width SD 52.6 fl (35.1-43.9); Red Blood Count 3.88 M/mm3 (4.6-6.2); White Blood Count 6.3 K/mm3 (4.4-11.0)
[2023-07-19 10:58] LABS: Bedside Glucose 135 mg/dL (74-106)
--- NOTE | 2023-07-19 11:00 | CASEMGMT ---
Social Work POA for healthcare, with the living will provision initialed is scanned into the summary tab of the e chart. Robert Melgar is pt's healthcare POA. MARIAELENA Comer
[2023-07-19] MEDS: Isosorbide Mononitrate 30 MG Tablet PO (11:02)
[2023-07-19 11:23] LABS: Anion Gap 5 (5-15); BUN 33 mg/dL (7-18); BUN/Creat Ratio 23.2 RATIO (10-20); Calcium,Total 8.4 mg/dL (8.5-10.1); Chloride 102 mmol/L (98-107); Creatinine, Serum 1.42 mg/dL (0.70-1.30); EST Glomerular Filtration Rate 52 mL/min (>60); Est Glom Filt Rate - Afr Amer 63 mL/min (>60); Estimated Creatinine Clearance 45.64 ml/min; Glucose 145 mg/dL (74-106); Potassium 4.2 mmol/L (3.5-5.1); Sodium Level 137 mmol/L (136-145)
--- NOTE | 2023-07-19 12:14 | DCINST_ITS ---
Discharge Instructions Diet Discharge Diet: Low fat / Low cholesterol Activity Discharge Activity: Return to Normal Activity Weight Bearing Status: Weight bearing as tolerated Dressing / Incision Call your doctor if you observe: Fever of 101 or Higher, Shortness of breath, Dizziness, Swelling in the ankles and Chest pain Follow Up Care Test Results: Test results from this visit will be discussed in further detail at your follow- up appointment, if applicable. Discharge Plan Admission Admit Date/Time: 07/17/23 21:31 Primary Reason for Your Visit: chest pain Attending Provider: Faiza Cast Primary Care Provider: Boston Figueroa Consulting Providers: Sabas Bae; Hany Zacarias; Boris Gipson Instructions Patient Instructions: Discharge Instructions for Angina Discharge Orders/Prescriptions Prescriptions: New isosorbide mononitrate 30 mg Tablet Extended Release 24 Hr 30 mg PO DAILY Qty: 30 2RF Continued aspirin [Adult Aspirin Regimen] 81 mg tablet,delayed release (DR/EC) 81 mg PO DAILY multivitamin [Daily Multi-Vitamin] tablet 1 tab PO DAILY glipizide 5 mg tablet 5 mg PO BID allopurinol 100 mg tablet 200 mg PO DAILYCM atorvastatin 80 mg tablet 80 mg PO QHS Rx Instructions: TAKE 1 TABLET AT BEDTIME Eliquis 5 mg Tablet 5 mg PO BID Qty: 60 0RF metoprolol tartrate 100 mg Tablet 100 mg PO BID 30 Days Qty: 60 0RF furosemide 40 mg tablet 40 mg PO BID pantoprazole 40 mg tablet,delayed release (DR/EC) 40 mg PO DAILY Qty: 90 3RF nitroglycerin 0.4 mg tablet, sublingual 0.4 mg sublingual Q5-15M PRN (Reason: chest pain) Qty: 25 3RF Rx Instructions: do not exceed 3 doses per episode Referrals / Follow Up: Sabas Bae MD [Med Staff - Active Staff] - Within 2 Weeks Boston Figueroa MD [Primary Care Provider] - Within 2 Weeks Disposition Disposition (needs filled in before D/C Order can be placed): Home, Self Care
--- NOTE | 2023-07-19 12:17 | PCM.DC.SUM ---
Providers Date of Admission: 07/17/23 Date of Discharge: 07/19/23 Primary Care Physician: Dr. Boston Figueroa MD Consultations 07/17/23 22:52 Consult: Cardiology Routine Consulting Provider: Sabas Bae Reason for Consult: Chest Pain EMERGENT Consult: No MD Notified: Yes Date Notified: 07/17/23 Time Notified: 21:38 Method of Notification: ED Physician Initiated Reason For Visit: NSTEMI Diagnosis Discharge Diagnosis (1) NSTEMI, initial episode of care: Status: Acute Code(s): I21.4 - Non-ST elevation (NSTEMI) myocardial infarction (2) A-fib: Status: Acute Code(s): I48.91 - Unspecified atrial fibrillation Qualifiers: Atrial fibrillation type: persistent (not longstanding) Qualified Code(s): I48.19 - Other persistent atrial fibrillation (3) History of coronary artery stent placement: Status: Resolved Code(s): Z95.5 - Presence of coronary angioplasty implant and graft (4) Non-rheumatic aortic stenosis: Status: Chronic Code(s): I35.0 - Nonrheumatic aortic (valve) stenosis (5) Essential (primary) hypertension: Status: Chronic Code(s): I10 - Essential (primary) hypertension (6) Chronic HFrEF (heart failure with reduced ejection fraction): Status: Chronic Code(s): I50.22 - Chronic systolic (congestive) heart failure Medications at Discharge Home Medications aspirin 81 mg tablet,delayed release (Adult Aspirin Regimen) 81 mg PO DAILY heart health 04/14/18 multivitamin (Daily Multi-Vitamin tablet) 1 tab PO DAILY vitamin 01/25/19 allopurinol 100 mg tablet 200 mg PO DAILYCM GOUT 08/03/22 pantoprazole 40 mg tablet,delayed release 40 mg PO DAILY ppi #90 tabs 08/11/22 glipizide 5 mg tablet 5 mg PO BID diabetes 09/15/22 nitroglycerin 0.4 mg sublingual tablet 0.4 mg sublingual Q5-15M PRN chest pain #25 tabs 06/09/23 atorvastatin 80 mg tablet 80 mg PO QHS anticholesterol 06/29/23 apixaban 5 mg tablet (Eliquis) 5 mg PO BID #60 tabs 07/05/23 metoprolol tartrate 100 mg tablet 100 mg PO BID 30 days #60 tabs 07/05/23 furosemide 40 mg tablet 40 mg PO BID diuretic 07/17/23 isosorbide mononitrate 30 mg tablet,extended release 24 hr 30 mg PO DAILY #30 tabs 07/19/23 Hospital Course Operations None Procedures Cardiac catheterization Summary of Care Provided Minutes Spent on Discharge: 50 Hospital Course: Patient is a 73-year-old male with past medical history as outlined was admitted through the ED on 07/17/2023 with a complaint of chest pain which he described as tightening and radiated to his arms and jaw as well as lower back. He also has diffuse abdominal pain and had nausea still with his symptoms. Upon admission troponin was markedly elevated in the 500s.On heparin drip was admitted and managed for non-STEMI. Cardiology was consulted. He had cardiac cath on 07/19/2023 which showed diffuse triple-vessel disease and previously stented vessels were noted to be patent with findings essentially unchanged from previous cardiac cath of July 2022. Recommendation was for medical management. Patient was continued on his home aspirin and high intensity statin and Imdur was added on. He is follow-up with his primary care doctor as well as cardiology within 1 to 2 weeks and is to be compliant with his medication. Patient seen and examined prior to discharge. He had no complaints and had an uneventful night. Review of systems otherwise negative. Labs and vitals reviewed. Home medication reviewed and reconciled. Physical Exam Const alert, oriented x3 and no apparent distress General Appearance: cooperative and comfortable Orientation / Consciousness: awake HEENT normocephalic, head/scalp atraumatic, hearing grossly normal bilaterally, moist oral mucous membranes and oropharynx normal Mouth: oral and palatal mucosa normal Eyes PERRL, EOMs intact bilaterally and conjunctivae normal Neck no lymphadenopathy and supple Resp normal respiratory effort, no retractions, no use of accessory muscles and clear to auscultation bilaterally Cardio regular rate, regular rhythm, S1 normal heart sound, S2 normal heart sound and no murmurs GI normal to inspection, nondistended, normoactive bowel sounds, soft to palpation, non-tender, non-distended and hepatosplenomegaly Extremity normal to inspection and no clubbing, cyanosis or edema Skin no rashes or lesions noted and no wounds Neuro oriented x3, CN's II-XII intact bilaterally, moves all extremities and no focal motor deficits Sensorium / Orientation: awake and alert Motor Exam: strength 5/5 throughout Psych affect normal Weight / BMI Weight Weight: 272 lb 14.916 oz Body Mass Index (BMI) 40.3 ABG / Lab / Microbiology Data 07/19/23 10:46 07/19/23 10:46 Laboratory: Laboratory Results - last 24 hr 07/18/23 15:30: APTT 58.4 H 07/18/23 16:42: POC Glucose 162 H 07/18/23 21:51: POC Glucose 149 H 07/18/23 21:53: APTT 57.1 H 07/19/23 05:32: POC Glucose 132 H 07/19/23 10:34: POC Glucose 135 H 07/19/23 10:46: WBC 6.3, RBC 3.88 L, Hgb 11.5 L, Hct 36.7 L, MCV 94.6 H, MCH 29.6, MCHC 31.3 L, RDW Std Deviation 52.6 H, RDW Coeff of Raphael 15.2 H, Plt Count 196, MPV 9.9, Immature Gran % (Auto) 0.300, Neut % (Auto) 69.3, Lymph % (Auto) 18.5 L, [place] % (Auto) 7.8, Eos % (Auto) 3.3, Baso % (Auto) 0.8, Absolute Neuts (auto) 4.4, Absolute Lymphs (auto) 1.17, Nucleated RBC % 0, Sodium 137, Potassium 4.2, Chloride 102, Carbon Dioxide 30.0, Anion Gap 5, BUN 33 H, Creatinine 1.42 H, Estim Creat Clear Calc 45.64, Est GFR (MDRD) Af Amer 63, Est GFR (MDRD) Non-Af 52 L, BUN/Creatinine Ratio 23.2 H, Glucose 145 H, Calcium 8.4 L D/C Instructions Discharge Diet: Low fat / Low cholesterol Discharge Activity: Return to Normal Activity Weight Bearing Status: Weight bearing as tolerated Call your doctor if you observe: Fever of 101 or Higher, Shortness of breath, Dizziness, Swelling in the ankles and Chest pain Meaningful Use Info Meaningful Use Diagnoses (Choose all that apply): AMI AMI/Post PCI/Angioplasty Aspirin given w/in 24hrs of arrival?: Yes ASA at discharge?: Yes Antiplatelet Therapy at Discharge:: Yes Statins at discharge?: Yes Alirio/ARB at discharge?: No Reason Alirio/ARB not ordered:: Not indicated Beta Betty at discharge?: Yes Done w/ Acute OK measure.: Yes Discharge Plan Admission Admit Date/Time: 07/17/23 21:31 Primary Reason for Your Visit: chest pain Attending Provider: Faiza Cast Primary Care Provider: Boston Figueroa Consulting Providers: Sabas Bae; Hany Zacarias; Boris Gipson Instructions Patient Instructions: Discharge Instructions for Angina Discharge Orders/Prescriptions Prescriptions: New isosorbide mononitrate 30 mg Tablet Extended Release 24 Hr 30 mg PO DAILY Qty: 30 2RF Continued aspirin [Adult Aspirin Regimen] 81 mg tablet,delayed release (DR/EC) 81 mg PO DAILY multivitamin [Daily Multi-Vitamin] tablet 1 tab PO DAILY glipizide 5 mg tablet 5 mg PO BID allopurinol 100 mg tablet 200 mg PO DAILYCM atorvastatin 80 mg tablet 80 mg PO QHS Rx Instructions: TAKE 1 TABLET AT BEDTIME Eliquis 5 mg Tablet 5 mg PO BID Qty: 60 0RF metoprolol tartrate 100 mg Tablet 100 mg PO BID 30 Days Qty: 60 0RF furosemide 40 mg tablet 40 mg PO BID pantoprazole 40 mg tablet,delayed release (DR/EC) 40 mg PO DAILY Qty: 90 3RF nitroglycerin 0.4 mg tablet, sublingual 0.4 mg sublingual Q5-15M PRN (Reason: chest pain) Qty: 25 3RF Rx Instructions: do not exceed 3 doses per episode Referrals / Follow Up: Boston Figueroa MD [Primary Care Provider] - 08/04/23 3:20 pm Kendra Bonilla PA [Med Staff - [facility] Practice Prof] - 08/05/23 9:30 am Disposition Disposition (needs filled in before D/C Order can be placed): Home, Self Care Charges/Coding Visit Charges Inpatient E&M: 24031 Disch Hosp >30min
--- NOTE | 2023-07-19 13:47 | PHA.DC.MC.R ---
Pharmacy [facility] has performed discharge medication reconciliation and counseling for this patient. The patient's discharge medication list was reviewed for discrepancies and discrepancies were resolved. The patient was counseled on the following discharge medications and changes in medications for homegoing were reviewed. The Reason for Use, instructions for use, and potential side effects were reviewed for all new medications. The patient's questions regarding all of their medications were answered. 1. Isosorbide [place] 30 mg PO daily The patient was able to verbally demonstrate an understanding of their discharge medications. Medications at Discharge Home Medications aspirin 81 mg tablet,delayed release (Adult Aspirin Regimen) 81 mg PO DAILY heart health 04/14/18 multivitamin (Daily Multi-Vitamin tablet) 1 tab PO DAILY vitamin 01/25/19 allopurinol 100 mg tablet 200 mg PO DAILYCM GOUT 08/03/22 pantoprazole 40 mg tablet,delayed release 40 mg PO DAILY ppi #90 tabs 08/11/22 glipizide 5 mg tablet 5 mg PO BID diabetes 09/15/22 nitroglycerin 0.4 mg sublingual tablet 0.4 mg sublingual Q5-15M PRN chest pain #25 tabs 06/09/23 atorvastatin 80 mg tablet 80 mg PO QHS anticholesterol 06/29/23 apixaban 5 mg tablet (Eliquis) 5 mg PO BID #60 tabs 07/05/23 metoprolol tartrate 100 mg tablet 100 mg PO BID 30 days #60 tabs 07/05/23 furosemide 40 mg tablet 40 mg PO BID diuretic 07/17/23 isosorbide mononitrate 30 mg tablet,extended release 24 hr 30 mg PO DAILY #30 tabs 07/19/23
== END 2023-07-19 14:53 | disposition home or self-care (01) | DRG 281 ==
LOC: ED 21:56 → PCU 22:33
PROVIDERS: Admitting Provider Hospitalist; Emergency Provider Emergency Medicine; PCP Family Medicine; Visit Provider Student in an Organized Health Care Education/Training Program
DX: I21.4 Non-ST elevation (NSTEMI) myocardial infarction (principal); I13.0 Hypertensive heart and chronic kidney disease with heart failure and stage 1 through stage 4 chronic kidney disease, or unspecified chronic kidney disease; I50.22 Chronic systolic (congestive) heart failure; T82.897A Other specified complication of cardiac prosthetic devices, implants and grafts, initial encounter; Z68.41 Body mass index [BMI] 40.0-44.9, adult; I48.19 Other persistent atrial fibrillation; E11.22 Type 2 diabetes mellitus with diabetic chronic kidney disease; J44.9 Chronic obstructive pulmonary disease, unspecified; E11.65 Type 2 diabetes mellitus with hyperglycemia; I25.119 Atherosclerotic heart disease of native coronary artery with unspecified angina pectoris; N18.9 Chronic kidney disease, unspecified; I35.0 Nonrheumatic aortic (valve) stenosis; M10.9 Gout, unspecified; I25.5 Ischemic cardiomyopathy; E78.5 Hyperlipidemia, unspecified; G47.33 Obstructive sleep apnea (adult) (pediatric); I25.2 Old myocardial infarction; Y71.8 Miscellaneous cardiovascular devices associated with adverse incidents, not elsewhere classified; E66.9 Obesity, unspecified; Z79.01 Long term (current) use of anticoagulants; Z79.82 Long term (current) use of aspirin; Z79.84 Long term (current) use of oral hypoglycemic drugs; Z79.899 Other long term (current) drug therapy; Z95.5 Presence of coronary angioplasty implant and graft; Z87.891 Personal history of nicotine dependence; Z90.49 Acquired absence of other specified parts of digestive tract
CPT/HCPCS: 36415; 71045; 74176; 80048; 80061; 80076; 82962; 83690; 83880; 84484; 85025; 85610; 85730; 93005; 93454; 99152; 99153; 99285; J7030; Q9967; A4216; C1769; C1894; J2405

== ENCOUNTER 2023-07-20 20:50 | Observation (INO) | payer MEDICARE, SELFPAY ==
[2020-03-07 09:49] VITALS: BMI 41.8
[2023-07-20 20:53] VITALS: BP 98/74; PULSE 94; RESP 15; TEMP 35.6; O2SAT 95
[2023-07-20 21:19] LABS: Absolute Lymphocyte Count 1.33 X10^3/uL (0.83-4.51); Absolute Neutrophil Count 5.5 X10^3/uL (2.0-7.7); Basophil# 0.06 X10^3/uL; Basophil% 0.8 % (0-1); Eosinophil# 0.18 X10^3/uL; Eosinophils% 2.3 % (0-5); Hematocrit 37.4 % (40-54); Hemoglobin 11.9 g/dL (13.0-16.5); Lymphocyte # 1.33 X10^3/ul (0.83-4.51); Lymphocyte % 16.9 % (19-41); Mean Corp Hgb Conc 31.8 g/dL (32-36); Mean Corpuscular Hgb 29.6 pg (27.0-32.0); Mean Platelet Vol. 10.2 fl (6.2-12.0); Monocyte# 0.71 X10^3/uL; NRBC Flagged by Analyzer 0 % (0-5); Neutrophil # 5.54 X10^3/uL (2.7-7.7); Neutrophil % 70.6 % (47-70); Platelet Count 235 K/mm3 (150-450); RBC Distribution Width SD 51.3 fl (35.1-43.9); Red Blood Count 4.02 M/mm3 (4.6-6.2); White Blood Count 7.9 K/mm3 (4.4-11.0)
[2023-07-20 21:32] VITALS: BMI 40.4
[2023-07-20 21:43] LABS: ALB/GLOB Ratio 0.9 RATIO (0.9-2.4); AST(SGOT) 35 U/L (15-37); Alanine Aminotransfer ALT/SGPT 54 U/L (16-61); Albumin, Serum 3.2 g/dL (3.2-5.0); Alkaline Phosphatase 131 U/L (45-117); Anion Gap 8 (5-15); BUN 34 mg/dL (7-18); BUN/Creat Ratio 19.3 RATIO (10-20); Calcium,Total 8.5 mg/dL (8.5-10.1); Chloride 102 mmol/L (98-107); Creatinine, Serum 1.76 mg/dL (0.70-1.30); EST Glomerular Filtration Rate 40 mL/min (>60); Est Glom Filt Rate - Afr Amer 49 mL/min (>60); Estimated Creatinine Clearance 36.82 ml/min; Globulin 3.7 g/dL (2.2-4.2); Glucose 232 mg/dL (74-106); Potassium 4.1 mmol/L (3.5-5.1); Protein, Total 6.9 g/dL (6.4-8.2); Sodium Level 137 mmol/L (136-145)
--- NOTE | 2023-07-20 21:46 | CM.ED ---
Social Work SW performed chart review; HCPOA documents on file as of 2019. Patient's HCPOA is patient's brother, Robert and alternates are patient's daughter, Rachelle and son, Martinez. SW met with patient and patient's son and introduced self and role as [facility] SW. Patient agreeable to speak with SW. SW inquired about AD; patient reports having both LW and HCPOA. SW informed patient HCPOA document is on file and it is noted the LW was not completed at that time. Patient states that's interesting, I will have to look into it. No other needs at this time. Kimberly Joseph [employer] ADMINISTRATOR, LABOR CONTRACT ANALYST
[2023-07-20 21:47] LABS: Bedside Glucose 216 mg/dL (74-106)
[2023-07-20 22:00] VITALS: BP 125/95; PULSE 95; RESP 22
--- NOTE | 2023-07-20 22:11 | CT_ITS ---
EXAM: CT ABDOMEN AND PELVIS WITH INTRAVENOUS CONTRAST CLINICAL INDICATION: pain TECHNIQUE: Helically acquired images were obtained of the abdomen and pelvis with intravenous contrast. This CT exam was performed using one or more of the following dose reduction techniques: automated exposure control, adjustment of the mA and/or kV according to patient size, and/or use of iterative reconstruction technique. CONTRAST: IV 100mL Isovue-370 RADIATION DOSE: CTDIvol = 35.36 mGy, DLP = 1451.97 mGy-cm COMPARISON: 07/17/2023 FINDINGS: LIMITATIONS: Limited by patient''s size which decreases resolution and causes artifact. LOWER THORAX: Mild atelectasis in both lung bases. Mild cardiomegaly. Calcified coronary arteries. No significant pericardial effusion. ABDOMEN: LIVER: Fatty infiltration of the liver. GALLBLADDER AND BILE DUCTS: Changes of recent cholecystectomy with surgical clips in the gallbladder fossa, and mild residual fluid. Findings improved since 3 days prior. No gross abscess. Satisfactory appearance of biliary stent running through the common bile duct into the duodenum. PANCREAS: Unremarkable. No focal cystic or solid mass. SPLEEN: Unremarkable. Normal size without focal cystic or solid mass. ADRENALS: Unremarkable. No nodules. KIDNEYS AND URETERS: Unremarkable. Normal renal size and position. No hydronephrosis. STOMACH AND BOWEL: Evaluation of the GI tract is limited by absence of oral contrast. Cannot exclude stomach wall thickening. No dilated loops of bowel or evidence for obstruction. Cannot exclude segmental thickening of the de souza of the small or large bowel. Cannot exclude enteritis or colitis. Diverticulosis without definite diverticulitis. Appendix within normal limits. PELVIS: APPENDIX: No evidence of acute appendicitis. BLADDER: Unremarkable. REPRODUCTIVE: Unremarkable as visualized. No mass. ABDOMEN and PELVIS: INTRAPERITONEAL SPACE: Unremarkable. No ascites or other fluid collection. No evidence for abscess. No free air. BONES/JOINTS: Diffuse degenerative changes throughout the spine. No suspicious lytic or blastic abnormality. SOFT TISSUES: Unremarkable. No discrete abdominal or pelvic wall hernia. VASCULATURE: Heavily calcified aorta with no aneurysm. LYMPH NODES: Unremarkable. No enlarged lymph nodes. CT/Abdomen/Pelvis W IV Cont ONLY IMPRESSION: 1. Limited as above. 2. No evidence of abscess or fluid collection in the gallbladder fossa. Electronically Signed: Emanuel Simon MD at 22:55 EDT ,
--- NOTE | 2023-07-20 22:11 | EKG12_ITS ---
Test Reason : Blood Pressure : / mmHG Vent. Rate : 096 BPM Atrial Rate : 000 BPM P-R Int : 000 ms QRS Dur : 102 ms QT Int : 390 ms P-R-T Axes : 000 -24 120 degrees QTc Int : 492 ms Atrial fibrillation Minimal voltage criteria for LVH, may be normal variant ( R in aVL ) Nonspecific ST and T wave abnormality Prolonged QT Abnormal ECG Confirmed by VANDANA MOYER, PAT ([id number]), staff editor COLLIN MORENO ([id number]) on 07/26/2023 2:05:58 PM Referred By: Confirmed By:CHIN ROSS MD
--- NOTE | 2023-07-20 22:13 | EDS_ITS ---
HPI HPI - GI History of Present Illness Chief Complaint: Abd Pain Informant: patient and family Narrative Narrative: Patient presents with a tom pain nausea and vomiting. History is mostly through the son and somewhat through the patient. Patient answers some questions. But he also states he just does not feel well. He states he knew he would be back. He oftentimes answers questions with I do not know. This patient had cholecystectomy on the first of this month. It sounds like he has not felt well since. He has had intermittent cramping and nausea. He has had intermittent constipation not diarrhea. No blood seen. He will then had a NSTEMI and had a couple stents placed. He is not sure how many. He is also on Eliquis and is taking it. According to his chart this is due to atrial fibrillation but he is not sure why he is on it. He does state he is taking all his meds. I get through the son that his symptoms really started today with abdominal cramping bloating nausea and vomiting. No blood or black is been seen. No black in the stool. It sounds like patient has been constipated but I do not know when his last bowel movement was. He states he is still passing gas. He also does agree that his abdomen is more distended than is his normal. He has discomfort all through his abdomen. He cannot localize it. He is denying chest pain though. And is currently on oxygen but he is not at home but his original vitals show he was 95% on room air. [facility] Medical History A-fib Abdominal pain Abnormal stress test (07/2022) Acute exacerbation of CHF (congestive heart failure) Ambulates with cane Atherosclerosis of coronary artery without angina pectoris Bilateral lower extremity edema Cardiology follow-up encounter Chest pain Chronic kidney disease Chronic kidney disease (CKD) COPD (chronic obstructive pulmonary disease) Coronary artery disease Dermatitis Diastolic dysfunction Elevated liver enzymes Essential (primary) hypertension Fatty liver Former smoker Gastric ulcer GI (gastrointestinal bleed) Gout Heart murmur History of CHF (congestive heart failure) History of heart attack History of non-ST elevation myocardial infarction (NSTEMI) (05/05/21) History of stress test Hyperlipidemia Ischemic cardiomyopathy Kidney stones Low iron Non-rheumatic aortic stenosis Obesity Obstructive sleep apnea Orthopnea Osteoarthritis Secondary pulmonary arterial hypertension Shortness of breath on exertion Type 2 diabetes mellitus Home Medications aspirin 81 mg tablet,delayed release (Adult Aspirin Regimen) 81 mg PO DAILY heart health 04/14/18 [History Last Taken 06/28/23] multivitamin (Daily Multi-Vitamin tablet) 1 tab PO DAILY vitamin 01/25/19 [History Last Taken 06/28/23] allopurinol 100 mg tablet 200 mg PO DAILYCM GOUT 08/03/22 [History Last Taken 06/28/23] pantoprazole 40 mg tablet,delayed release 40 mg PO DAILY ppi #90 tabs 08/11/22 [Rx Last Taken 06/28/23] glipizide 5 mg tablet 5 mg PO BID diabetes 09/15/22 [History Last Taken Unknown] nitroglycerin 0.4 mg sublingual tablet 0.4 mg sublingual Q5-15M PRN chest pain #25 tabs 06/09/23 [Rx Last Taken Unknown] atorvastatin 80 mg tablet 80 mg PO QHS anticholesterol 06/29/23 [History Last Taken Unknown] metoprolol tartrate 100 mg tablet 100 mg PO BID blood pressure 30 days #60 tabs 07/05/23 [Rx Last Taken Unknown] furosemide 40 mg tablet 40 mg PO BID diuretic 07/17/23 [History Last Taken Unknown] isosorbide mononitrate 30 mg tablet,extended release 24 hr 30 mg PO DAILY see doctor #30 tabs 07/19/23 [Rx Last Taken Unknown] apixaban 5 mg tablet (Eliquis) 5 mg PO Q12H blood thinn 07/21/23 [History Last Taken Unknown] Allergy/AdvReac Type Severity Reaction Status Date / Time metformin AdvReac Elevated Verified 07/17/23 19:43 LDH and anion gap Family History Mother , Age 80 Diabetes Hypertension Father , Age 55, coma Diabetes Hypertension Sister Hypertension Brother Diabetes Hypertension Cancer, Onset Age: 50 prostate cancer CAD (coronary artery disease) Surgical History History of appendectomy History of cardiac catheterization History of coronary artery stent placement (01/24/20) History of esophagogastroduodenoscopy (EGD) History of herniorrhaphy History of left heart catheterization (07/13/22) History of tonsillectomy History of total knee replacement (TKR) Social History household members: children Smoking Status: Former smoker quit date: 01/31/11 alcohol intake: current alcohol intake frequency: holidays/special occasions only substance use type: does not use caffeine: Yes Type: coffee ROS ROS ED ROS Narrative A complete review of systems was performed and is negative except as documented in the history of present illness. Some specific details below. The exam and history is somewhat limited due to patient's not always being sure exactly how to answer. I think a lot of his symptoms have been waxing and waning for a while but they are not definitely worse in the last 24 hours. Constitutional: No recent fevers or chills. Generalized malaise but no myalgias. EYE: No visual complaints or pain. ENT: No difficulty swallowing. No swelling. No pain. GERD. He is able to swallow food. CV: No chest pain or palpitations. Respiratory: No dyspnea. No hemoptysis. No difficulty taking breaths. GI: Please see history of present illness. : No frequency dysuria or hematuria. Musculoskeletal: No recent trauma. No pains. Skin: No rash. Nondiaphoretic. Neuro: No weakness or numbness. Endocrine: No polyuria or polydipsia. EXAM Physical Exam Narrative Exam Narrative: CONSTITUTIONAL: Patient is nontoxic in appearance. Patient looks like he does not feel well. HEENT: No notable trauma. Mucous membranes appear mildly dry. No sinus tenderness. No indication of pain with swallowing. EYES: No conjunctival injection. No icterus. CARDIOVASCULAR: Regular rate. Irregular rhythm. No notable murmur. No JVD. The auto driver in the room shows the patient to be rate controlled at about 90 with atrial fibrillation. RESPIRATORY: No respiratory distress. Breathing is unlabored. No wheezes. No rhonchi. No rales. No pain with a deep breath. His oxygen saturations are currently 96% on 2 L of oxygen and they were recorded as 95% on room air. This does not show hypoxia. GASTROINTESTINAL: Abdomen does appear to be slightly distended. Bowel sounds are normal to slightly increased. His port sites from surgery look well-healed and not infected. There is mild nonfocal tenderness. It does seem to be more in the upper than lower abdomen though. But there is no guarding or rebound. GENITOURINARY: No tenderness over the bladder. No CVA tenderness. MUSCULOSKELETAL: Atraumatic. +1?2 peripheral edema. No cord. No tenderness along the deep venous system. No asymmetry. NEUROLOGICAL: Patient is alert and appropriate. He seems tired but is oriented x3. SKIN: No noted rashes. No diaphoresis. PSYCHIATRIC: Patient is calm. Mood is appropriate. Const Vital Signs: 07/20/23 20:53 07/20/23 22:00 07/20/23 23:00 Temperature 96.1 F L Temperature Source Temporal Pulse Rate 94 95 Respiratory Rate 15 22 H Blood Pressure 98/74 125/95 H 101/68 Blood Pressure Mean 82 102 79 Pulse Ox 95 Oxygen Delivery Method Room Air Oxygen Flow Rate (L/min) 07/21/23 00:00 07/21/23 01:34 Temperature 96.8 F L Temperature Source Temporal Pulse Rate 83 Respiratory Rate 18 Blood Pressure 113/94 H 124/76 H Blood Pressure Mean 102 92 Pulse Ox 95 Oxygen Delivery Method Nasal Cannula Oxygen Flow Rate (L/min) 2 MDM MDM MDM Narrative Medical decision making narrative: Patient CBC shows mild anemia but normal white count and platelets. Patient's electrolytes look good other than he does have a rise of his creatinine but not meeting criteria for acute kidney injury. Some of this is dehydration likely from inability to take p.o. and vomiting. Kos is mildly up at 232. Patient's liver function test show no marked abnormalities Patient's lipase is normal. If his BNP is up but he has been this high and higher in the past. He is not hypoxic. The level was 1361.4. Patient's troponin was high at 518. It was rechecked and coming down to 465. But it had been over 1600 recently. I think this is trending down from his recent heart cath and NSTEMI. He is not having chest pain or acute EKG changes. I think this is trending down. Plan depend interpretation of his CT of the abdomen is not showing obstruction or ileus. Final reading is postoperative changes but nothing acute to cause his symptoms. Patient states he is still nauseated. He is weak. He does not feel he can go home. He just does not feel well. From the family it sounds like he is not doing well at home. He may even need rehab for a while as he has had some complex issues recently. I did discuss the case with surgeon, Dr. Lemons who did his surgery. But I am not finding that there is any indication of acute problem with the surgery. I will discuss the case with hospitalist. With his symptoms and no defined specific diagnosis we did check COVID test which also came back negative. Lab Data Attestation: I reviewed the patient's lab results. Labs: Laboratory Results - last 24 hr 07/20/23 07/20/23 07/20/23 21:10 21:28 23:50 WBC 7.9 RBC 4.02 L Hgb 11.9 L Hct 37.4 L MCV 93.0 MCH 29.6 MCHC 31.8 L RDW Std Deviation 51.3 H RDW Coeff of Raphael 15.0 H Plt Count 235 MPV 10.2 Immature Gran % (Auto) 0.400 Neut % (Auto) 70.6 H Lymph % (Auto) 16.9 L Chambers % (Auto) 9.0 Eos % (Auto) 2.3 Baso % (Auto) 0.8 Absolute Neuts (auto) 5.5 Absolute Lymphs (auto) 1.33 Nucleated RBC % 0 Sodium 137 Potassium 4.1 Chloride 102 Carbon Dioxide 27.0 Anion Gap 8 BUN 34 H Creatinine 1.76 H Estim Creat Clear Calc 36.82 Est GFR (MDRD) Af Amer 49 L Est GFR (MDRD) Non-Af 40 L BUN/Creatinine Ratio 19.3 Glucose 232 H Calcium 8.5 Total Bilirubin 1.00 AST 35 ALT 54 Alkaline Phosphatase 131 H Troponin I High Sens 518 H* 465 H* B-Natriuretic Peptide 1361.4 H Total Protein 6.9 Albumin 3.2 Globulin 3.7 Albumin/Globulin Ratio 0.9 Lipase 44 POC Glucose 216 H Radiography Diagnostic Testing: Clinical Impression(s) from Imaging Studies Abdomen/Pelvis CT 07/20/23 22:11 IMPRESSION: 1. Limited as above. 2. No evidence of abscess or fluid collection in the gallbladder fossa. Electronically Signed: Emanuel Simon MD at 22:55 EDT , EKG Initial EKG: Comments: Interpretation the patient's EKG shows atrial fibrillation at a rate of 96. No ventricular ectopy. Mild nonspecific diffuse ST and T wave change but no sign of acute infarct or ischemia. QRS patient is normal. QTc is a bit long at 492 ms Management Discussion w/another healthcare provider: Hospitalist and Computer Repair Engineer Discharge Plan Dx/Rx/DC Orders Clinical Impression: Creatinine elevation, History of non-ST elevation myocardial infarction (NSTEMI), Generalized muscle weakness, Elevated troponin, Nausea & vomiting, Dehydration Disposition Disposition: Acute Care Hospital [facility] Discharge Date/Time: 07/21/23 02:52
[2023-07-20] MEDS: Ondansetron 4 MG/2 ML Vial IV (22:21)
[2023-07-20 23:00] VITALS: BP 101/68
[2023-07-20 23:02] LABS: Lipase 44 U/L (13-75); Troponin-I HS 518 pg/mL (3.0-78.0)
[2023-07-20] MEDS: Morphine 2 MG/ML Syringe IV (23:08)
[2023-07-21] VITALS (13 sets, daily range): BP systolic 102–132; BP diastolic 68–94; PULSE 83–122; RESP 16–24; TEMP 36–36.9; O2SAT 93–96; BMI 40.5
[2023-07-21 00:59] LABS: Troponin-I HS 465 pg/mL (3.0-78.0)
--- NOTE | 2023-07-21 01:24 | HP.PCM.HOS_ITS ---
HPI - General General Date of Admission: 07/21/23 Date of Service: 07/21/23 Chief Complaint: Generalized weakness, abdominal pain HPI Narrative LUIS DEE, is a 73 M with history of CAD s/p stenting, persistent A-fib on Eliquis, ischemic cardiomyopathy, HFrEF, type 2 diabetes, gout, GERD and recent hospital admissions for gallstone pancreatitis s/p cholecystectomy (06/29 through 07/05) and NSTEMI s/p left heart cath with no stents placed (07/17 through 07/19) who presented to [facility] ED on 07/20/2023 with generalized w eakness and abdominal pain. Patient seen at bedside, son not present on my interview. Patient laying comfortably in bed, alert, conversing normally, no acute distress. Patient was quite talkative during my interview, had slightly tangential speech. Patient states that he currently has very mild abdominal discomfort diffusely. Denies any chest pain. Patient tells me that he remembers being in the hospital yesterday, but then slept hard and does not remember much before coming to the hospital tonight. Patient lives at home with his son, who brought him to the emergency department tonight. Patient denies any fevers or chills. Denies any lightheadedness or dizziness. No other acute concerns. Vitals in ED unremarkable. Labs notable for troponin 518 down to 465, BNP 1361, creatinine 1.76, CBC and BMP otherwise normal, normal LFTs, lipase normal. CT abdomen pelvis with IV contrast showed no evidence of abscess or fluid collection in the gallbladder fossa, no evidence of bowel obstruction, no overt abnormalities. [facility] Medical History A-fib Abdominal pain Abnormal stress test (07/2022) Acute exacerbation of CHF (congestive heart failure) Ambulates with cane Atherosclerosis of coronary artery without angina pectoris Bilateral lower extremity edema Cardiology follow-up encounter Chest pain Chronic kidney disease Chronic kidney disease (CKD) COPD (chronic obstructive pulmonary disease) Coronary artery disease Dermatitis Diastolic dysfunction Elevated liver enzymes Essential (primary) hypertension Fatty liver Former smoker Gastric ulcer GI (gastrointestinal bleed) Gout Heart murmur History of CHF (congestive heart failure) History of heart attack History of non-ST elevation myocardial infarction (NSTEMI) (05/05/21) History of stress test Hyperlipidemia Ischemic cardiomyopathy Kidney stones Low iron Non-rheumatic aortic stenosis Obesity Obstructive sleep apnea Orthopnea Osteoarthritis Secondary pulmonary arterial hypertension Shortness of breath on exertion Type 2 diabetes mellitus Home Medications aspirin 81 mg tablet,delayed release (Adult Aspirin Regimen) 81 mg PO DAILY heart health 04/14/18 [History Last Taken 06/28/23] multivitamin (Daily Multi-Vitamin tablet) 1 tab PO DAILY vitamin 01/25/19 [Hi story Last Taken 06/28/23] allopurinol 100 mg tablet 200 mg PO DAILYCM GOUT 08/03/22 [History Last Taken 06/28/23] pantoprazole 40 mg tablet,delayed release 40 mg PO DAILY ppi #90 tabs 08/11/22 [Rx Last Taken 06/28/23] glipizide 5 mg tablet 5 mg PO BID diabetes 09/15/22 [History Last Taken Unknown] nitroglycerin 0.4 mg sublingual tablet 0.4 mg sublingual Q5-15M PRN chest pain #25 tabs 06/09/23 [Rx Last Taken Unknown] atorvastatin 80 mg tablet 80 mg PO QHS anticholesterol 06/29/23 [History Last T aken Unknown] metoprolol tartrate 100 mg tablet 100 mg PO BID blood pressure 30 days #60 tabs 07/05/23 [Rx Last Taken Unknown] furosemide 40 mg tablet 40 mg PO BID diuretic 07/17/23 [History Last Taken Unknown] isosorbide mononitrate 30 mg tablet,extended release 24 hr 30 mg PO DAILY see doctor #30 tabs 07/19/23 [Rx Last Taken Unknown] apixaban 5 mg tablet (Eliquis) 5 mg PO Q12H blood thinn 07/21/23 [History Last Taken Unknown] Allergy/AdvReac Type Severity Reaction Status Date / Time metformin AdvReac Elevated Verified 07/17/23 19:43 LDH and anion gap Family History Mother , Age 80 Diabetes Hypertension Father , Age 55, coma Diabetes Hypertension Sister Hypertension Brother Diabetes Hypertension Cancer, Onset Age: 50 prostate cancer CAD (coronary artery disease) Surgical History History of appendectomy History of cardiac catheterization History of coronary artery stent placement (01/24/20) History of esophagogastroduodenoscopy (EGD) History of herniorrhaphy History of left heart catheterization (07/13/22) History of tonsillectomy History of total knee replacement (TKR) Social History household members: children Smoking Status: Former smoker quit date: 01/31/11 alcohol intake: current alcohol intake frequency: holidays/special occasions only substance use type: does not use caffeine: Yes Type: coffee ROS Constitutional Constitutional: Reports fatigue, malaise and weakness; Denies chills or fever(s) Eyes Eyes: Denies change in vision Cardiovascular Cardiovascular: Denies chest pain, edema, lightheadedness or palpitations Respiratory/Chest Respiratory/Chest: Denies cough Gastrointestinal Gastrointestinal: Reports abdominal pain; Denies constipation, diarrhea, nausea or vomiting Vital Signs Vital Signs Vital Signs: 07/20/23 20:53 07/20/23 22:00 07/20/23 23:00 Temperature 96.1 F L Temperature Source Temporal Pulse Rate 94 95 Respiratory Rate 15 22 H Blood Pressure 98/74 125/95 H 101/68 Blood Pressure Mean 82 102 79 Pulse Ox 95 Oxygen Delivery Method Room Air Weight Weight: 124.058 kg Body Mass Index (BMI) 40.4 Physical Exam Const alert and no apparent distress Constitutional Narrative: Elderly male, morbidly obese, laying comfortably in bed, conversing normally, no acute distress. General Appearance: cooperative and comfortable HEENT normocephalic, head/scalp atraumatic, hearing grossly normal bilaterally, nasal mucous membranes and turbinates normal and moist oral mucous membranes Eyes PERRL, EOMs intact bilaterally and conjunctivae normal Neck full ROM, no lymphadenopathy and supple Lymph Lymphatic: no lymphadenopathy noted Chest inspection of chest normal Resp normal respiratory effort, normal air movement, no use of accessory muscles and clear to auscultation bilaterally Cardio regular rate, no murmurs and peripheral pulses 2+ throughout Cardio Narrative: A-fib noted, rate controlled. GI GI Narrative: Mildly distended, soft, nontender to palpation. Laparoscopic surgery sites appear to be healing well. Back/Spine normal ROM Extremity normal to inspection, full ROM and no pedal edema Skin no rashes or lesions noted Psych mental status grossly normal Results Lab / Micro Data 07/20/23 21:10 07/20/23 21:10 Labs: Laboratory Results - last 24 hr 07/20/23 21:10: WBC 7.9, RBC 4.02 L, Hgb 11.9 L, Hct 37.4 L, MCV 93.0, MCH 29.6, MCHC 31.8 L, RDW Std Deviation 51.3 H, RDW Coeff of Raphael 15.0 H, Plt Count 235, MPV 10.2, Immature Gran % (Auto) 0.400, Neut % (Auto) 70.6 H, Lymph % (Auto) 16.9 L, [place] % (Auto) 9.0, Eos % (Auto) 2.3, Baso % (Auto) 0.8, Absolute Neuts (auto) 5.5, Absolute Lymphs (auto) 1.33, Nucleated RBC % 0, Sodium 137, Potassium 4.1, Chloride 102, Carbon Dioxide 27.0, Anion Gap 8, BUN 34 H, Creatinine 1.76 H, Estim Creat Clear Calc 36.82, Est GFR (MDRD) Af Amer 49 L, Est GFR (MDRD) Non-Af 40 L, BUN/Creatinine Ratio 19.3, Glucose 232 H, Calcium 8.5, Total Bilirubin 1.00, AST 35, ALT 54, Alkaline Phosphatase 131 H, Troponin I High Sens 518 H*, B-Natriuretic Peptide 1361.4 H, Total Protein 6.9, Albumin 3.2, Globulin 3.7, Albumin/Globulin Ratio 0.9, Lipase 44 07/20/23 21:28: POC Glucose 216 H 07/20/23 23:50: Troponin I High Sens 465 H* Radiology Impression Abdomen/Pelvis CT 07/20/23 22:11 IMPRESSION: 1. Limited as above. 2. No evidence of abscess or fluid collection in the gallbladder fossa. Electronically Signed: Emanuel Simon MD at 22:55 EDT , Assessment & Plan Assessment/Plan (1) Generalized muscle weakness: PLAN: Plan Patient is a 73-year-old male with history of CAD s/p stenting, persistent A-fib on Eliquis, ischemic cardiomyopathy, HFrEF, type 2 diabetes, gout, GERD and recent hospital admissions for gallstone pancreatitis s/p cholecystectomy (06/29 through 07/05) and NSTEMI s/p left heart cath with no stents placed (07/17 through 07/19) who presented to [facility] ED on 07/20/2023 with generalized weakness and abdominal pain. 1. Generalized weakness, in setting of chronic debility Suspect weakness is most likely secondary to general deconditioning with recent hospital stays over the past few weeks. Lives at home, son lives with him. Uses a walker or cane to assist with ambulation. Discharged home without any needs from last 2 hospitalizations, but on chart review has had home health care services in the past. ? Admit to [facility]. PT/OT/case management consulted. Fall precautions in place. 2. Abdominal discomfort, recent gallstone pancreatitis s/p cholecystectomy Recent admission from 06/29 through 07/05; presented with severe abdominal pain, found on imaging to have concern for gallstone pancreatitis. S/p ERCP on 07/01 with choledocholithiasis found with biliary sphincterotomy and balloon extraction and biliary tree sweep, followed by laparoscopic cholecystectomy on 07/01. Reports generalized abdominal discomfort on this admission, unable to give further details. Not eating and drinking very well per patient's report. Labs on admit fairly benign, lipase normal, LFTs and BMP without concerning findings. CT abdomen pelvis with IV contrast on admit showed no evidence of bowel obstruction, no evidence of abscess or fluid collection in the gallbladder fossa. ? ED discussed with Dr. Lemons who did patient's procedure on 07/01, no concern at this time for any postsurgical complications. Monitor for now, treat pain cons ervatively. 3. CAD s/p stenting, recent NSTEMI Recent admission from 07/17 through 07/19 for NSTEMI. Presented with chest pain with radiation to arms, jaw and back; found to have elevated troponins. Cardiology followed s/p left heart cath on 07/19 that showed diffuse triple- vessel disease and previously stented vessels that were noted to be patent, recommendation for medical management. Troponins 518 down to 465 in the ED. EKG with no ischemic changes. ? Troponin elevation very likely due to recent NSTEMI, downtrending appropriately. Continue home medications. 4. Ischemic cardiomyopathy, HFrEF Most recent echo from 06/28/2023 showed EF 40%, hypokinetic apex, mild diastolic dysfunction, moderate aortic stenosis; EF was notably 45% on echo back in November 2022. On home p.o. Lasix 40 mg twice daily. Appeared euvolemic on exam in ED. Hemodynamically stable. BNP at baseline. ? Not in acute exacerbation. Continue home medications. 5. Mild YADIRA on CKD Likely multifactorial with some degree of ATN from contrast administration during left heart cath, with likely component of prerenal YADIRA in setting of poor p.o. intake. Creatinine 1.76 on admit, baseline creatinine 1.4-1.5. ? Monitor BMP. No further work-up needed at this time. Chronic medical conditions: ? Persistent A-fib: Continue home Eliquis. ? Gout: Continue home allopurinol. DVT prophylaxis: Eliquis CODE STATUS: Full code, unverified Expected disposition: Home versus SNF, TBD Total clinical time spent by myself addressing the patient's medical issues, reviewing all the data, and collaborating with patient's care team: 55 minutes. Charges/Coding Visit Charges Inpatient E&M: 92650 Init Hosp L2
[2023-07-21 02:56] LABS: Color, Urine Yellow (Yellow); Glucose, Dipstick Normal (Normal); Ketone-Dipstick Negative (Negative); Leukocyte Esterase-Dipstick Negative /ul (Negative); Mucous, Urine 0 SEEN /hpf (<or=2+); Nitrite-Dipstick Negative (Negative); Occult Blood-Urine Negative /ul (Negative); Protein-Dipstick 15 mg/dl (Negative); Red Blood Cells-Urine 0 SEEN /hpf (0-5); Squamous Epithelial Cells - UA 0 SEEN /hpf (0-5); Urine Bilirubin Dipstick Negative (Negative); Urine Clarity Clear (Clear); Urine Urobilinogen 1 mg/dl (Normal); White Blood Cells 0 SEEN /hpf (0-5)
[2023-07-21 03:02] LABS: Bacteria RARE /hpf (None Seen)
[2023-07-21 03:41] LABS: Bedside Glucose 158 mg/dL (74-106)
[2023-07-21] MEDS: Insulin Lispro 100 UNIT/ML INSULN.PEN SC ×3 (04:08→21:40)
[2023-07-21 06:00] LABS: Hematocrit 37.4 % (40-54); Hemoglobin 11.5 g/dL (13.0-16.5); Mean Corp Hgb Conc 30.7 g/dL (32-36); Mean Corpuscular Hgb 29.2 pg (27.0-32.0); Mean Corpuscular Volume 94.9 fL (80-94); Mean Platelet Vol. 10.2 fl (6.2-12.0); Platelet Count 206 K/mm3 (150-450); RBC Distribution Width CV 15.1 % (11.6-14.6); RBC Distribution Width SD 53.1 fl (35.1-43.9); Red Blood Count 3.94 M/mm3 (4.6-6.2); White Blood Count 6.7 K/mm3 (4.4-11.0)
[2023-07-21 06:49] LABS: Anion Gap 6 (5-15); BUN 31 mg/dL (7-18); BUN/Creat Ratio 20.7 RATIO (10-20); Calcium,Total 8.6 mg/dL (8.5-10.1); Chloride 105 mmol/L (98-107); EST Glomerular Filtration Rate 49 mL/min (>60); Est Glom Filt Rate - Afr Amer 59 mL/min (>60); Glucose 162 mg/dL (74-106); Potassium 4.7 mmol/L (3.5-5.1); Sodium Level 138 mmol/L (136-145)
[2023-07-21] MEDS: Aspirin E.C. 81 MG Tablet PO (08:36)
[2023-07-21] MEDS: Furosemide 40 MG Tablet PO ×2 (08:36→18:07)
[2023-07-21] MEDS: Metoprolol Tartrate 100 MG Tablet PO ×2 (08:36→21:40)
[2023-07-21] MEDS: Pantoprazole Sodium 40 MG Tablet PO (08:36)
[2023-07-21] MEDS: Allopurinol 100 MG Tablet 200 MG PO (08:37)
[2023-07-21] MEDS: Isosorbide Mononitrate 30 MG Tablet PO (08:37)
[2023-07-21] MEDS: APIXABAN 5 MG TABLET PO ×2 (08:37→21:40)
[2023-07-21 09:04] LABS: Bedside Glucose 146 mg/dL (74-106)
[2023-07-21] MEDS: Ondansetron 4 MG/2 ML Vial IV ×2 (09:51→22:55)
--- NOTE | 2023-07-21 12:30 | CASEMGMT ---
Social Work SW introduced self and role to patient. SW reviewed d/c planning with patient as patient was home for 1 day with recent hospital discharge. Pt reports he was home and feeling a lot of abdominal pain and had dry heaves and that is why he came to the ED. Pt denies needing more assistance at home due to his son helping him. Pt reports some muscle pain and back/shoulder pain that he is interested in doing physical therapy for. Pt reports utilizing [facility] in the past and enjoying the therapy pool. Pt reports he typically has availability 9am to 1pm. SW explained needs will be reviewed pending therapy and a shelter case manager will likely discuss therapy options prior to discharge. Plan: Follow for discharge needs, possible d/c with outpatient therapy. Yesenia Orozco CAT CRACKER OPERATOR, SOUNDING DEVICE OPERATOR
[2023-07-21 13:52] LABS: Bedside Glucose 168 mg/dL (74-106)
--- NOTE | 2023-07-21 14:57 | PN_ITS ---
Subjective Subjective Patient seen and examined. He had no active complaints. He was admitted with a complaint of weakness and debility. He was recently admitted and managed for unstable angina and had cardiac cath which showed triple-vessel disease with recommendation for medical management. He went home and felt too weak and could not take care of himself so he came back. He has remained hemodynamically stable. Objective Data Objective Data Vital Signs: Vital Signs Temp Pulse Resp BP Pulse Ox O2 Del Method O2 Flow Rate 97.6 F L 93 18 107/76 95 Room Air 2 07/21/23 11:45 07/21/23 11:45 07/21/23 11:45 07/21/23 11:45 07/21/23 11:45 07/21/23 11:45 07/21/23 03:41 Oxygen Flow Rate (L/min) 2 Oxygen Delivery Method Room Air Weight: 273 lb 8.017 oz Body Mass Index (BMI) 40.5 Lab / Micro Data 07/21/23 05:50 07/21/23 05:50 Labs: Laboratory Results - last 24 hr 07/20/23 21:10: WBC 7.9, RBC 4.02 L, Hgb 11.9 L, Hct 37.4 L, MCV 93.0, MCH 29.6, MCHC 31.8 L, RDW Std Deviation 51.3 H, RDW Coeff of Raphael 15.0 H, Plt Count 235, MPV 10.2, Immature Gran % (Auto) 0.400, Neut % (Auto) 70.6 H, Lymph % (Auto) 16.9 L, [place] % (Auto) 9.0, Eos % (Auto) 2.3, Baso % (Auto) 0.8, Absolute Neuts (auto) 5.5, Absolute Lymphs (auto) 1.33, Nucleated RBC % 0, Sodium 137, Potassium 4.1, Chloride 102, Carbon Dioxide 27.0, Anion Gap 8, BUN 34 H, Creatinine 1.76 H, Estim Creat Clear Calc 36.82, Est GFR (MDRD) Af Amer 49 L, Est GFR (MDRD) Non-Af 40 L, BUN/Creatinine Ratio 19.3, Glucose 232 H, Calcium 8.5, Total Bilirubin 1.00, AST 35, ALT 54, Alkaline Phosphatase 131 H, Troponin I High Sens 518 H*, B-Natriuretic Peptide 1361.4 H, Total Protein 6.9, Albumin 3.2, Globulin 3.7, Albumin/Globulin Ratio 0.9, Lipase 44 07/20/23 21:28: POC Glucose 216 H 07/20/23 23:50: Troponin I High Sens 465 H* 07/21/23 02:50: Urine Color Yellow, Urine Clarity Clear, Urine pH 5.0, Ur Specific [place] 1.010, Urine Protein 15 H, Urine Glucose (UA) Normal, Urine Ketones Negative, Urine Occult Blood Negative, Urine Nitrite Negative, Urine Bilirubin Negative, Urine Urobilinogen 1 H, Ur Leukocyte Esterase Negative, Urine RBC 0 SEEN, Urine WBC 0 SEEN, Ur Squamous Epith Cells 0 SEEN, Urine Bacteria RARE, Urine Mucus 0 SEEN 07/21/23 03:23: POC Glucose 158 H 07/21/23 05:50: WBC 6.7, RBC 3.94 L, Hgb 11.5 L, Hct 37.4 L, MCV 94.9 H, MCH 29.2, MCHC 30.7 L, RDW Std Deviation 53.1 H, RDW Coeff of Raphael 15.1 H, Plt Count 206, MPV 10.2, Sodium 138, Potassium 4.7, Chloride 105, Carbon Dioxide 27.0, Anion Gap 6, BUN 31 H, Creatinine 1.50 H, Estim Creat Clear Calc 41.80, Est GFR (MDRD) Af Amer 59 L, Est GFR (MDRD) Non-Af 49 L, BUN/Creatinine Ratio 20.7 H, Glucose 162 H, Calcium 8.6 07/21/23 08:35: POC Glucose 146 H 07/21/23 12:49: POC Glucose 168 H Micro: Microbiology 07/21/23 01:30 Nasal Secretion SARS-CoV-2 Antigen (Rapid) - Final Radiography Diagnostic Testing: Radiology Impression Abdomen/Pelvis CT 07/20/23 22:11 IMPRESSION: 1. Limited as above. 2. No evidence of abscess or fluid collection in the gallbladder fossa. Electronically Signed: Emanuel Simon MD at 22:55 EDT , Physical Exam Const alert, oriented x3 and no apparent distress General Appearance: cooperative HEENT normocephalic, head/scalp atraumatic, moist oral mucous membranes and oropharynx normal Eyes PERRL and EOMs intact bilaterally Neck no lymphadenopathy and supple Lymph Lymphatic: no lymphadenopathy noted Resp normal respiratory effort, normal air movement and clear to auscultation bila terally Cardio regular rate, regular rhythm, S1 normal heart sound, S2 normal heart sound and no murmurs GI normal to inspection, nondistended, normoactive bowel sounds, soft to palpation, non-tender and non-distended Extremity normal capillary refill, no clubbing, cyanosis or edema and no calf tenderness Skin General Skin Exam: no breakdown Neuro CN's II-XII intact bilaterally, no focal motor deficits, no sensory deficits noted and deep tendon reflexes 2+ bilaterally Motor Exam: strength 5/5 throughout and general weakness Psych thought process normal, cooperative and affect normal Appearance: appropriate Assessment & Plan Assessment/Plan (1) Nausea & vomiting: (2) Dehydration: (3) Generalized muscle weakness: PLAN: Plan #Debility and weakness * likely due to generalised deconditioning * was recently admitted in the hospital and discharged home but couldnt take care of himself at home * PT.OT On board * fall precautions * may benefit from placement * #Abdominal pain * in the setting of recent gallstone pancreatitis s/p cholecystectomy * was recenmtly admitted from 06/29 to 07/05 with severe abdominal pain and was found to have gallstone pancreatitis. HE had ERCP on 07/01 which showed choledocholithiasis with biliary sphincterectomy and balloon extraction with biliary tree sweep and he subsequently had laparoscopic cholecystectomy. * Lipase not elevated. CT of the abdomen and pelvis with IV contrast showed no evidence of any acute pathology. ED discussed with Dr. Lemus who had no concern for postsurgical complications and recommended conservative management. * * #CAD * Was recently admitted for non-STEMI and had cardiac cath which showed diffuse triple-vessel disease and previously stented vessels were noted to be patent with recommendation for medical management. * On aspirin and Plavix as well as high intensity statin * #Heart failure with reduced ejection fraction:EF is 40%. On lasix. #Diabetes mellitus: on glipizide. ISS. Accuhecks ACHS #Afib: on metoprolol.on eliquis #DVT prophylaxis: on eliquis Disposition; will benefit from placement. PT.OT on board. Case management on board. Charges/Coding Visit Charges Inpatient E&M: 44871 Subs Hosp L2
--- NOTE | 2023-07-21 15:49 | CHAPLAIN ---
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
[2023-07-21 16:53] LABS: Bedside Glucose 149 mg/dL (74-106)
[2023-07-21] MEDS: MELATONIN 10 MG TABLET 5 MG PO (21:38)
[2023-07-21] MEDS: Atorvastatin Calcium 80 MG Tablet PO (21:40)
[2023-07-21 22:07] LABS: Bedside Glucose 168 mg/dL (74-106)
[2023-07-21] MEDS: Acetaminophen 325 MG Tablet 650 MG PO (22:55)
[2023-07-21] MEDS: 0.9% Saline Lock 10 ML Syringe IV (22:55)
[2023-07-22] VITALS (12 sets, daily range): BP systolic 97–125; BP diastolic 57–97; PULSE 66–126; RESP 16–26; TEMP 36–36.7; O2SAT 94–98
[2023-07-22 04:04] LABS: Bedside Glucose 142 mg/dL (74-106)
[2023-07-22 07:49] LABS: Absolute Lymphocyte Count 2.09 X10^3/uL (0.83-4.51); Absolute Neutrophil Count 5.5 X10^3/uL (2.0-7.7); Basophil# 0.05 X10^3/uL; Basophil% 0.6 % (0-1); Eosinophil# 0.23 X10^3/uL; Eosinophils% 2.7 % (0-5); Hematocrit 39.5 % (40-54); Hemoglobin 12.1 g/dL (13.0-16.5); Lymphocyte # 2.09 X10^3/ul (0.83-4.51); Lymphocyte % 24.5 % (19-41); Mean Corp Hgb Conc 30.6 g/dL (32-36); Mean Corpuscular Hgb 29.2 pg (27.0-32.0); Mean Corpuscular Volume 95.4 fL (80-94); Mean Platelet Vol. 10.2 fl (6.2-12.0); Monocyte# 0.66 X10^3/uL; Monocyte% 7.7 % (0-10); NRBC Flagged by Analyzer 0 % (0-5); Neutrophil # 5.46 X10^3/uL (2.7-7.7); Neutrophil % 64.1 % (47-70); Platelet Count 211 K/mm3 (150-450); RBC Distribution Width CV 15.3 % (11.6-14.6); RBC Distribution Width SD 53.7 fl (35.1-43.9); Red Blood Count 4.14 M/mm3 (4.6-6.2); White Blood Count 8.5 K/mm3 (4.4-11.0)
[2023-07-22 08:04] LABS: Anion Gap 6 (5-15); BUN 35 mg/dL (7-18); BUN/Creat Ratio 21.3 RATIO (10-20); Calcium,Total 8.9 mg/dL (8.5-10.1); Chloride 104 mmol/L (98-107); Creatinine, Serum 1.64 mg/dL (0.70-1.30); EST Glomerular Filtration Rate 44 mL/min (>60); Est Glom Filt Rate - Afr Amer 53 mL/min (>60); Estimated Creatinine Clearance 38.23 ml/min; Glucose 144 mg/dL (74-106); Potassium 4.8 mmol/L (3.5-5.1); Sodium Level 136 mmol/L (136-145)
[2023-07-22] MEDS: Pantoprazole Sodium 40 MG Tablet PO (09:08)
[2023-07-22] MEDS: Insulin Lispro 100 UNIT/ML INSULN.PEN SC ×3 (09:08→16:05)
[2023-07-22] MEDS: APIXABAN 5 MG TABLET PO ×2 (09:09→23:22)
[2023-07-22] MEDS: Allopurinol 100 MG Tablet 200 MG PO (09:09)
[2023-07-22] MEDS: Isosorbide Mononitrate 30 MG Tablet PO (09:09)
[2023-07-22] MEDS: Aspirin E.C. 81 MG Tablet PO (09:09)
[2023-07-22] MEDS: Furosemide 40 MG Tablet PO ×2 (09:09→18:01)
[2023-07-22] MEDS: Metoprolol Tartrate 100 MG Tablet PO ×2 (09:09→23:24)
[2023-07-22 09:32] LABS: Bedside Glucose 150 mg/dL (74-106)
--- NOTE | 2023-07-22 09:55 | PN_ITS ---
Subjective Subjective Patient seen and examined. He had no active complaints. His heart rate had been difficult to control of late. HE denied any chest pain, palpitations, dizziness, nausea or vomiting or anyt other symptoms. HR was 122 at time of review this morning. Objective Data Objective Data Vital Signs: Vital Signs Temp Pulse Resp BP Pulse Ox O2 Del Method O2 Flow Rate 96.8 F L 122 H 18 98/84 H 94 Room Air 2 07/22/23 04:07/22/23 09:07/22/23 04:07/22/23 04:07/22/23 04:07/22/23 04:07/21/23 03:41 Oxygen Flow Rate (L/min) 2 Oxygen Delivery Method Room Air Weight: 273 lb 8.017 oz Body Mass Index (BMI) 40.5 Intake & Output: Intake and Output for Last 24 Hours 07/20/23 07/21/23 07/22/23 23:59 23:59 23:59 Intake Total 600 / 600 Output Total 350 / 350 Balance 600 / 400 -350 / -350 Lab / Micro Data 07/22/23 07:30 07/22/23 07:30 Labs: Laboratory Results - last 24 hr 07/21/23 12:49: POC Glucose 168 H 07/21/23 16:11: POC Glucose 149 H 07/21/23 21:40: POC Glucose 168 H 07/22/23 03:33: POC Glucose 142 H 07/22/23 07:30: WBC 8.5, RBC 4.14 L, Hgb 12.1 L, Hct 39.5 L, MCV 95.4 H, MCH 29.2, MCHC 30.6 L, RDW Std Deviation 53.7 H, RDW Coeff of Raphael 15.3 H, Plt Count 211, MPV 10.2, Immature Gran % (Auto) 0.400, Neut % (Auto) 64.1, Lymph % (Auto) 24.5, [place] % (Auto) 7.7, Eos % (Auto) 2.7, Baso % (Auto) 0.6, Absolute Neuts (auto) 5.5, Absolute Lymphs (auto) 2.09, Nucleated RBC % 0, Sodium 136, Potassium 4.8, Chloride 104, Carbon Dioxide 26.0, Anion Gap 6, BUN 35 H, Creatinine 1.64 H, Estim Creat Clear Calc 38.23, Est GFR (MDRD) Af Amer 53 L, Est GFR (MDRD) Non-Af 44 L, BUN/Creatinine Ratio 21.3 H, Glucose 144 H, Calcium 8.9 07/22/23 08:59: POC Glucose 150 H Micro: Microbiology 07/21/23 01:30 Nasal Secretion SARS-CoV-2 Antigen (Rapid) - Final Physical Exam Const alert, oriented x3 and no apparent distress General Appearance: cooperative and comfortable HEENT normocephalic, head/scalp atraumatic, hearing grossly normal bilaterally, nasal mucous membranes and turbinates normal, moist oral mucous membranes and oropharynx normal Eyes PERRL, EOMs intact bilaterally and conjunctivae normal Neck full ROM, no lymphadenopathy and supple Lymph Lymphatic: no lymphadenopathy noted Chest inspection of chest normal Resp normal respiratory effort, normal air movement, no use of accessory muscles and clear to auscultation bilaterally Cardio S1 normal heart sound, S2 normal heart sound, no murmurs and peripheral pulses 2+ throughout Cardio Narrative: A-fib noted, intermittent afib with RVR GI normal to inspection, nondistended, normoactive bowel sounds, soft to palpation, non-tender and non-distended Back/Spine normal ROM and normal to inspection Extremity normal to inspection, full ROM, normal capillary refill, no clubbing, cyanosis or edema, no calf tenderness and no pedal edema Skin no rashes or lesions noted General Skin Exam: no breakdown Neuro CN's II-XII intact bilaterally, no focal motor deficits, no sensory deficits noted and deep tendon reflexes 2+ bilaterally Motor Exam: strength 5/5 throughout and general weakness Psych mental status grossly normal, thought process normal, cooperative and affect normal Appearance: appropriate Assessment & Plan Assessment/Plan (1) Nausea & vomiting: (2) Dehydration: (3) Generalized muscle weakness: PLAN: Plan #Debility and weakness * likely due to generalised deconditioning * was recently admitted in the hospital and discharged home but couldnt take care of himself at home * PT.OT On board * fall precautions * may benefit from placement * #Abdominal pain * in the setting of recent gallstone pancreatitis s/p cholecystectomy * was recently admitted from 06/29 to 07/05 with severe abdominal pain and was found to have gallstone pancreatitis. HE had ERCP on 07/01 which showed choledocholithiasis with biliary sphincterectomy and balloon extraction with biliary tree sweep and he subsequently had laparoscopic cholecystectomy. * Lipase not elevated. CT of the abdomen and pelvis with IV contrast showed no evidence of any acute pathology. ED discussed with Dr. Lemus who had no concern for postsurgical complications and recommended conservative management. * abdominal pain is improving and he is feeling better * #CAD * Was recently admitted for non-STEMI and had cardiac cath which showed diffuse triple-vessel disease and previously stented vessels were noted to be patent with recommendation for medical management. * On aspirin and Plavix as well as high intensity statin * #Heart failure with reduced ejection fraction:EF is 40%. On lasix. #Diabetes mellitus: on glipizide. ISS. Accuhecks ACHS #Afib: on metoprolol.on eliquis. HR has been fluctuating and is in the 120s now. IV lopressor prn. Continue metoprolol 100mg bid. IF HR continues fluctuating, will get cardiology on board. #DVT prophylaxis: on eliquis Disposition; will benefit from placement. PT.OT on board. Case management on . Charges/Coding Visit Charges Inpatient E&M: 36158 Subs Hosp L2
[2023-07-22] MEDS: Senna/Docusate Sodium 1 Tablet 2 TABLET PO (11:22)
[2023-07-22 11:54] LABS: Bedside Glucose 213 mg/dL (74-106)
[2023-07-22] MEDS: dilTIAZem 25 MG/5 ML Vial 20 MG IV BOLUS (12:42)
--- NOTE | 2023-07-22 13:35 | NURSING ---
Pt finished eating lunch and up to bathroom, stated to BAILEE Mayen I either need to puke or poop, I feel sick to my stomach and dizzy. Assisted patient back to bed x2 assist, saray given, EKG obtained, Dr. Cast notified, new order received for fluid bolus.
[2023-07-22] MEDS: Ondansetron 4 MG/2 ML Vial IV (13:36)
[2023-07-22] MEDS: 0.9% Saline Lock 10 ML Syringe IV (13:36)
--- NOTE | 2023-07-22 13:36 | EKG12_ITS ---
Test Reason : tachycardia Blood Pressure : / mmHG Vent. Rate : 068 BPM Atrial Rate : 000 BPM P-R Int : 000 ms QRS Dur : 098 ms QT Int : 398 ms P-R-T Axes : 000 -10 129 degrees QTc Int : 423 ms Atrial fibrillation Low voltage QRS Nonspecific ST and T wave abnormality Abnormal ECG Confirmed by REYNA MOYER, CINTHYA ([id number]), supervising film or videotape editor ABEBA LEARY ([id number]) on 08/17/2023 1:26:56 PM Referred By: Serene Confirmed By:CINTHYA ORELLANA MD
[2023-07-22] MEDS: 0.9% Normal Saline (500mL Bag) 500 ML 999 ML IV (13:53)
[2023-07-22 15:47] LABS: Troponin-I HS 283 pg/mL (3.0-78.0)
[2023-07-22] MEDS: glipiZIDE 5 MG Tablet PO (16:05)
[2023-07-22 16:28] LABS: Bedside Glucose 186 mg/dL (74-106)
[2023-07-22 18:20] LABS: Troponin-I HS 271 pg/mL (3.0-78.0)
[2023-07-22 23:15] LABS: Troponin-I HS 235 pg/mL (3.0-78.0)
[2023-07-22] MEDS: Atorvastatin Calcium 80 MG Tablet PO (23:17)
[2023-07-22] MEDS: MELATONIN 10 MG TABLET 5 MG PO (23:23)
[2023-07-22 23:50] LABS: Bedside Glucose 86 mg/dL (74-106)
[2023-07-23 03:00] VITALS: BP 107/78; PULSE 69; RESP 18; TEMP 36.5; O2SAT 98
[2023-07-23 05:12] LABS: Bedside Glucose 120 mg/dL (74-106)
[2023-07-23 06:17] LABS: Absolute Lymphocyte Count 1.71 X10^3/uL (0.83-4.51); Absolute Neutrophil Count 5.2 X10^3/uL (2.0-7.7); Basophil# 0.04 X10^3/uL; Basophil% 0.5 % (0-1); Eosinophil# 0.21 X10^3/uL; Eosinophils% 2.7 % (0-5); Hematocrit 37.2 % (40-54); Hemoglobin 11.4 g/dL (13.0-16.5); Lymphocyte # 1.71 X10^3/ul (0.83-4.51); Lymphocyte % 21.9 % (19-41); Mean Corp Hgb Conc 30.6 g/dL (32-36); Mean Corpuscular Hgb 29.3 pg (27.0-32.0); Mean Corpuscular Volume 95.6 fL (80-94); Mean Platelet Vol. 10.8 fl (6.2-12.0); Monocyte% 7.7 % (0-10); NRBC Flagged by Analyzer 0 % (0-5); Neutrophil # 5.23 X10^3/uL (2.7-7.7); Neutrophil % 66.9 % (47-70); Platelet Count 200 K/mm3 (150-450); RBC Distribution Width CV 15.3 % (11.6-14.6); RBC Distribution Width SD 53.8 fl (35.1-43.9); Red Blood Count 3.89 M/mm3 (4.6-6.2); White Blood Count 7.8 K/mm3 (4.4-11.0)
[2023-07-23] MEDS: glipiZIDE 5 MG Tablet PO (06:32)
[2023-07-23] MEDS: Insulin Lispro 100 UNIT/ML INSULN.PEN SC ×2 (06:32→11:55)
[2023-07-23 06:49] LABS: Anion Gap 5 (5-15); BUN 43 mg/dL (7-18); BUN/Creat Ratio 24.2 RATIO (10-20); Calcium,Total 8.6 mg/dL (8.5-10.1); Chloride 102 mmol/L (98-107); Creatinine, Serum 1.78 mg/dL (0.70-1.30); EST Glomerular Filtration Rate 40 mL/min (>60); Est Glom Filt Rate - Afr Amer 48 mL/min (>60); Estimated Creatinine Clearance 35.22 ml/min; Glucose 149 mg/dL (74-106); Potassium 4.3 mmol/L (3.5-5.1); Sodium Level 136 mmol/L (136-145)
[2023-07-23 07:13] LABS: Bedside Glucose 153 mg/dL (74-106)
[2023-07-23 09:00] VITALS: BP 114/70; PULSE 97; RESP 19; TEMP 36.5; O2SAT 97
[2023-07-23] MEDS: Aspirin E.C. 81 MG Tablet PO (09:06)
[2023-07-23 09:07] VITALS: PULSE 97
[2023-07-23] MEDS: Allopurinol 100 MG Tablet 200 MG PO (09:07)
[2023-07-23] MEDS: Isosorbide Mononitrate 30 MG Tablet PO (09:07)
[2023-07-23] MEDS: Pantoprazole Sodium 40 MG Tablet PO (09:07)
[2023-07-23] MEDS: Furosemide 40 MG Tablet PO (09:07)
[2023-07-23] MEDS: Metoprolol Tartrate 100 MG Tablet PO (09:07)
[2023-07-23] MEDS: APIXABAN 5 MG TABLET PO (09:07)
[2023-07-23] MEDS: Senna/Docusate Sodium 1 Tablet 2 TABLET PO (09:07)
[2023-07-23 12:20] LABS: Bedside Glucose 162 mg/dL (74-106)
--- NOTE | 2023-07-23 12:41 | DS.PCM_ITS ---
Providers Date of Admission: 07/21/23 Date of Discharge: 07/23/23 Primary Care Physician: Dr. Boston Figueroa MD Reason For Visit: GENERALIZED WEAKNESS Diagnosis Discharge Diagnosis (1) Nausea & vomiting: Status: Acute Code(s): R11.2 - Nausea with vomiting, unspecified (2) Dehydration: Status: Acute Code(s): E86.0 - Dehydration (3) Generalized muscle weakness: Status: Acute Code(s): M62.81 - Muscle weakness (generalized) Plan #Debility and weakness * likely due to generalised deconditioning * was recently admitted in the hospital and discharged home but couldnt take care of himself at home * PT.OT On board * fall precautions * may benefit from placement * #Abdominal pain * in the setting of recent gallstone pancreatitis s/p cholecystectomy * was recently admitted from 06/29 to 07/05 with severe abdominal pain and was found to have gallstone pancreatitis. HE had ERCP on 07/01 which showed choledocholithiasis with biliary sphincterectomy and balloon extraction with biliary tree sweep and he subsequently had laparoscopic cholecystectomy. * Lipase not elevated. CT of the abdomen and pelvis with IV contrast showed no evidence of any acute pathology. ED discussed with Dr. Lemus who had no concern for postsurgical complications and recommended conservative management. * abdominal pain is improving and he is feeling better * #CAD * Was recently admitted for non-STEMI and had cardiac cath which showed diffuse triple-vessel disease and previously stented vessels were noted to be patent with recommendation for medical management. * On aspirin and Plavix as well as high intensity statin * #Heart failure with reduced ejection fraction:EF is 40%. On lasix. #Diabetes mellitus: on glipizide. ISS. Accuhecks ACHS #Afib: on metoprolol.on eliquis. HR has been fluctuating and is in the 120s now. IV lopressor prn. Continue metoprolol 100mg bid. IF HR continues fluctuating, will get cardiology on board. #DVT prophylaxis: on eliquis Disposition; will benefit from placement. PT.OT on board. Case management on board. Medications at Discharge Home Medications aspirin 81 mg tablet,delayed release (Adult Aspirin Regimen) 81 mg PO DAILY heart health 04/14/18 multivitamin (Daily Multi-Vitamin tablet) 1 tab PO DAILY vitamin 01/25/19 allopurinol 100 mg tablet 200 mg PO DAILYCM GOUT 08/03/22 pantoprazole 40 mg tablet,delayed release 40 mg PO DAILY ppi #90 tabs 08/11/22 glipizide 5 mg tablet 5 mg PO BID diabetes 09/15/22 nitroglycerin 0.4 mg sublingual tablet 0.4 mg sublingual Q5-15M PRN chest pain #25 tabs 06/09/23 atorvastatin 80 mg tablet 80 mg PO QHS anticholesterol 06/29/23 metoprolol tartrate 100 mg tablet 100 mg PO BID blood pressure 30 days #60 tabs 07/05/23 furosemide 40 mg tablet 40 mg PO BID diuretic 07/17/23 isosorbide mononitrate 30 mg tablet,extended release 24 hr 30 mg PO DAILY see doctor #30 tabs 07/19/23 apixaban 5 mg tablet (Eliquis) 5 mg PO Q12H blood thinn 07/21/23 Hospital Course Operations None Procedures None Summary of Care Provided Minutes Spent on Discharge: 48 Hospital Course: Patient is a 73-year-old male with an extensive past medical history as outlined was admitted through the ED on 07/19/2023 with complaint of generalized weakness and abdominal pain. He had only recently been in the hospital and discharged just a few days prior to this admission after he was managed for non-STEMI. He had cardiac cath which showed diffuse triple-vessel disease with patent stents and plan was for medical management. He went to him and subsequently started gómez ving abdominal pain and generalized weakness so he came into the ED. CT of the abdomen and pelvis with IV contrast showed no evidence of abscess or fluid collection in the gallbladder. And no evidence of bowel obstruction no overt abnormalities. He had had recent gallstone pancreatitis at the end of June and that had cholecystectomy to those concerned that this abdominal pain was related to that. He had had a ERCP with choledocholithiasis found with biliary sphincterectomy and balloon extraction and biliary tree sweep subsequently done and then he had laparoscopic cholecystectomy. ED discussed with general surgeon Dr. Lemons within the. Since procedure and there was no concern for any postsurgical changes. Hospital course was complicated by poorly controlled A- fib with subsequently improved after he was given a bolus of Cardizem and maintained on his home dose of metoprolol. Patient's symptoms resolved and he felt much better. Patient was initially amenable to placement but did well with physical therapy subsequently and opted to go home rather. He was therefore discharged home with outpatient therapy on 07/23/2023. He is to follow-up with his primary care doctor within 1 to 2 weeks. Patient was seen and examined prior to discharge. He had no complaints and had an uneventful night. Review of symptoms otherwise negative. Labs and vitals reviewed. Home medication reviewed and reconciled. Physical Exam Const alert, oriented x3 and no apparent distress Constitutional Narrative: Elderly male, morbidly obese, laying comfortably in bed, conversing normally, no acute distress. General Appearance: cooperative and comfortable HEENT normocephalic, head/scalp atraumatic, hearing grossly normal bilaterally, nasal mucous membranes and turbinates normal, moist oral mucous membranes and oropharynx normal Eyes PERRL, EOMs intact bilaterally and conjunctivae normal Neck full ROM, no lymphadenopathy and supple Lymph Lymphatic: no lymphadenopathy noted Chest inspection of chest normal Resp normal respiratory effort, normal air movement, no retractions, no use of accessory muscles and clear to auscultation bilaterally Cardio regular rate, regular rhythm, S1 normal heart sound, S2 normal heart sound, no murmurs and peripheral pulses 2+ throughout GI normal to inspection, nondistended, normoactive bowel sounds, soft to palpation, non-tender and non-distended Back/Spine normal ROM and normal to inspection Extremity normal to inspection, full ROM, normal capillary refill, no clubbing, cyanosis or edema, no calf tenderness and no pedal edema Skin no rashes or lesions noted General Skin Exam: no breakdown Neuro CN's II-XII intact bilaterally, no focal motor deficits, no sensory deficits noted and deep tendon reflexes 2+ bilaterally Motor Exam: strength 5/5 throughout and general weakness Psych mental status grossly normal, thought process normal, cooperative and affect normal Appearance: appropriate Weight / BMI Weight Weight: 273 lb 8.017 oz Body Mass Index (BMI) 40.5 ABG / Lab / Microbiology Data 07/23/23 05:45 07/23/23 05:45 Laboratory: Laboratory Results - last 24 hr 07/22/23 15:10: Troponin I High Sens 283 H* 07/22/23 16:05: POC Glucose 186 H 07/22/23 17:11: Troponin I High Sens 271 H* 07/22/23 21:50: Troponin I High Sens 235 H* 07/22/23 23:20: POC Glucose 86 07/23/23 03:28: POC Glucose 120 H 07/23/23 05:45: WBC 7.8, RBC 3.89 L, Hgb 11.4 L, Hct 37.2 L, MCV 95.6 H, MCH 29.3, MCHC 30.6 L, RDW Std Deviation 53.8 H, RDW Coeff of Raphael 15.3 H, Plt Count 200, MPV 10.8, Immature Gran % (Auto) 0.300, Neut % (Auto) 66.9, Lymph % (Auto) 21.9, [place] % (Auto) 7.7, Eos % (Auto) 2.7, Baso % (Auto) 0.5, Absolute Neuts (auto) 5.2, Absolute Lymphs (auto) 1.71, Nucleated RBC % 0, Sodium 136, Potassium 4.3, Chloride 102, Carbon Dioxide 29.0, Anion Gap 5, BUN 43 H, Creatinine 1.78 H, Estim Creat Clear Calc 35.22, Est GFR (MDRD) Af Amer 48 L, Est GFR (MDRD) Non-Af 40 L, BUN/Creatinine Ratio 24.2 H, Glucose 149 H, Calcium 8.6 07/23/23 06:30: POC Glucose 153 H 07/23/23 11:54: POC Glucose 162 H Microbiology: Microbiology 07/21/23 01:30 Nasal Secretion SARS-CoV-2 Antigen (Rapid) - Final D/C Instructions Discharge Diet: Low fat / Low cholesterol Discharge Activity: Return to Normal Activity Weight Bearing Status: Weight bearing as tolerated Call your doctor if you observe: Fever of 101 or Higher, Shortness of breath, Dizziness, Swelling in the ankles, Chest pain and Increased palpitations (irregular heartbeat) Meaningful Use Info Meaningful Use Diagnoses (Choose all that apply): None applicable Discharge Plan Admission Admit Date/Time: 07/21/23 01:35 Primary Reason for Your Visit: weakness, debility Attending Provider: Faiza Cast Primary Care Provider: Boston Figueroa Consulting Providers: Junito Yepez Instructions Patient Instructions: ED Weakness (Uncertain Cause) Discharge Orders/Prescriptions Prescriptions: Continued aspirin [Adult Aspirin Regimen] 81 mg tablet,delayed release (DR/EC) 81 mg PO DAILY multivitamin [Daily Multi-Vitamin] tablet 1 tab PO DAILY glipizide 5 mg tablet 5 mg PO BID allopurinol 100 mg tablet 200 mg PO DAILYCM atorvastatin 80 mg tablet 80 mg PO QHS Rx Instructions: TAKE 1 TABLET AT BEDTIME metoprolol tartrate 100 mg Tablet 100 mg PO BID 30 Days Qty: 60 0RF Eliquis 5 mg Tablet 5 mg PO Q12H furosemide 40 mg tablet 40 mg PO BID isosorbide mononitrate 30 mg Tablet Extended Release 24 Hr 30 mg PO DAILY Qty: 30 2RF pantoprazole 40 mg tablet,delayed release (DR/EC) 40 mg PO DAILY Qty: 90 3RF nitroglycerin 0.4 mg tablet, sublingual 0.4 mg sublingual Q5-15M PRN (Reason: chest pain) Qty: 25 3RF Rx Instructions: do not exceed 3 doses per episode Referrals / Follow Up: Sabas Bae MD [Med Staff - Active Staff] - 08/05/23 9:30 am (Appointment is with Kendra Bonilla N.P.) Boston Figueroa MD [Primary Care Provider] - 07/28/23 9:00 am Disposition Disposition (needs filled in before D/C Order can be placed): Home Health Service Charges/Coding Visit Charges Inpatient E&M: 21705 Disch Hosp >30min
--- NOTE | 2023-07-23 12:55 | CASEMGMT ---
Patient did well with therapy and is able to go home with outpatient therapy. RN CM in to discuss needs with patient. Patient agreeable to outpatient therapy and prefers to schedule himself. Script received and placed in patient's discharge paperwork with information for [facility]. Patient had no further questions or concerns at this time.
[2023-07-23 14:04] VITALS: BP 98/70; PULSE 65; RESP 18; TEMP 36.6; O2SAT 94
[2023-07-23 14:06] VITALS: O2SAT 93; O2SAT 94
--- NOTE | 2023-07-23 14:11 | PHA.DC_ITS ---
Pharmacy [facility] Reconciliation Pharmacy Service has performed discharge medication reconciliation for this patient. The patient's discharge medication list was reviewed for discrepancies and discrepancies were resolved. Medications at Discharge Home Medications aspirin 81 mg tablet,delayed release (Adult Aspirin Regimen) 81 mg PO DAILY heart health 04/14/18 multivitamin (Daily Multi-Vitamin tablet) 1 tab PO DAILY vitamin 01/25/19 allopurinol 100 mg tablet 200 mg PO DAILYCM GOUT 08/03/22 pantoprazole 40 mg tablet,delayed release 40 mg PO DAILY ppi #90 tabs 08/11/22 glipizide 5 mg tablet 5 mg PO BID diabetes 09/15/22 nitroglycerin 0.4 mg sublingual tablet 0.4 mg sublingual Q5-15M PRN chest pain #25 tabs 06/09/23 atorvastatin 80 mg tablet 80 mg PO QHS anticholesterol 06/29/23 metoprolol tartrate 100 mg tablet 100 mg PO BID blood pressure 30 days #60 tabs 07/05/23 furosemide 40 mg tablet 40 mg PO BID diuretic 07/17/23 isosorbide mononitrate 30 mg tablet,extended release 24 hr 30 mg PO DAILY see doctor #30 tabs 07/19/23 apixaban 5 mg tablet (Eliquis) 5 mg PO Q12H blood thinn 07/21/23
== END 2023-07-23 14:26 | disposition home health service (06) | DRG 555 ==
LOC: ED 07-21 01:32 → PCU 07-21 01:52 → ICU 08-03 14:33 → PCU 08-03 14:33
PROVIDERS: Admitting Provider Hospitalist; Emergency Provider Emergency Medicine; PCP Family Medicine; Visit Provider Student in an Organized Health Care Education/Training Program
DX: M62.81 Muscle weakness (generalized) (principal); N17.9 Acute kidney failure, unspecified; J44.9 Chronic obstructive pulmonary disease, unspecified; I13.0 Hypertensive heart and chronic kidney disease with heart failure and stage 1 through stage 4 chronic kidney disease, or unspecified chronic kidney disease; I50.22 Chronic systolic (congestive) heart failure; E11.22 Type 2 diabetes mellitus with diabetic chronic kidney disease; I48.19 Other persistent atrial fibrillation; Z68.41 Body mass index [BMI] 40.0-44.9, adult; E66.01 Morbid (severe) obesity due to excess calories; I21.4 Non-ST elevation (NSTEMI) myocardial infarction; E86.0 Dehydration; N18.9 Chronic kidney disease, unspecified; E78.5 Hyperlipidemia, unspecified; I25.10 Atherosclerotic heart disease of native coronary artery without angina pectoris; K21.9 Gastro-esophageal reflux disease without esophagitis; M10.9 Gout, unspecified; I25.5 Ischemic cardiomyopathy; K59.00 Constipation, unspecified; I25.2 Old myocardial infarction; G47.33 Obstructive sleep apnea (adult) (pediatric); R11.2 Nausea with vomiting, unspecified; R10.84 Generalized abdominal pain; R53.1 Weakness; R53.81 Other malaise; Z20.822 Contact with and (suspected) exposure to COVID-19; Z79.82 Long term (current) use of aspirin; Z79.01 Long term (current) use of anticoagulants; Z79.84 Long term (current) use of oral hypoglycemic drugs; Z87.891 Personal history of nicotine dependence; Z95.5 Presence of coronary angioplasty implant and graft; Z90.49 Acquired absence of other specified parts of digestive tract
CPT/HCPCS: 36415; 74177; 80048; 80053; 81001; 82962; 83690; 83880; 84484; 85025; 85027; 87811; 93005; 96361; 96374; 96375; 96376; 99221; 99283; J7030; J7040; Q9967; A4216; G0378; J2405

== ENCOUNTER 2023-08-04 12:30 | Outpatient (RCR) | payer MEDICARE, SELFPAY ==
[2020-03-07 09:49] VITALS: BMI 41.8
--- NOTE | 2023-07-29 08:55 | HP.OTEVAL_ITS ---
Patient's Visit Information Visit Information Visit Information: LUIS DEE is a 73 year old M, referred to Occupational Therapy by Dr. Boston Figueroa MD, with a diagnosis of generalized weakness. Date of Evaluation: 07/29/23 Occupational Therapist: Kendra Gregory, CRISSY/Maya, CHT Subjective Subjective: This 73 year old male was seen for OT eval with dx of generalized muscle weakness- Pt states he went to hospital gallbladder rupture and Sx on Jul.02. prior to his hospitalization he was working as a [employer]- (working 23- 24hrs) pt states he is now ambulating with a straight/walker depends on how he is feeling. pt states son did drive him to therapy pt states his balance is poor. pt states he has difficulty with ambulating in his home. pt states his female friend will clean the house son lives and he will do the cooking. ( states son is between jobs) ADLs Dressing: Pants, Socks and Shoes Comments: pt states fatigue and balance stop him from cooking. Household: Vacuum, Sweep/mop and Laundry Comments: has friend and family Comments: pt states he live in a ranch with no basement pt denies stairs Has a step in shower currently ambulating with a cane- arrives today in WC pt states he is performing his ADLs but not at the level he was prior to his hospitalization. pt state he is having difficulty with getting in and out of bed pt states prior to he and his son would go grocery shopping Strength Shoulder: right shoulder flex 21.5# left 22.6# Elbow: right triceps 33# left 35# biceps right 51# left 54# Deputy Fire Marshal: right 80# left 85# Lateral Pinch: right 18# left 16# Tripod Pinch: right 25# left 14# Quick DASH-Disab of Arm,Shoulder& Hand Quick DASH Score: 50.0000 Goals Goal:: pt will demo a increase in BUE strength by fet2 peak force testing by 8# or greater to increase pts ind with ADLs and IADLs pt will demo a increase in Bilateral account group supervisor strength by 8# to increase pts ind with ADL sand IADLS pt will demo increase in BUE strength/endurance indicating lifting 8# for simulated milk jug lift while standing with good dyn balance by d.c Goal:: pt will report return to IND with ADLs and IADLs by d.c pt will report no assistance needed to get in/out of bed by d.c Rehabilitation General Assessment: pt demo with weakness of BUE limiting pts functional mobility for ADLs and safe mobilization. pt would benefit from skilled OT services 2-3x for 4 weeks. to return to his PLOF. Rehabilitation Potential: Good Anticipated Interventions Anticipated Interventions: Strengthening, Education re Diagnosis and Home Program Visit Plan Frequency: 2-3x /Week Duration: 4 Weeks TEXT: Thank you for the opportunity to evaluate your patient. For Medicare and Medicare HMO plans, please review the plan of care and approve it. It will need to be FAXED BACK to us at [phone] for Medicare purposes. Please let me know if there are questions or concerns regarding this plan of care. Physician Signature: Date:
--- NOTE | 2023-07-29 10:17 | HP.PTEVAL ---
Patient's Visit Information Visit Information Visit Information: LUIS DEE is a 73 year old M referred to Physical Therapy by Dr. Boston Figueroa MD with a diagnosis of Debility. Date of Evaluation: 07/29/23 Physical Therapist: Ruth Rosales DPT Visit Plan Frequency: 2x /Week Duration: 4 Weeks Plan: Focus on LE and core strength/stabilization- Functional Mobility- (sit to stands, stairs, ambulation) HEP Given IE: Seated marching, heel raise, LAQ- Standing: marching, hip extn, hip add with ball- educated on importance of movement Subjective Subjective: Patient reports that he spent some time in the hospital due to a gallbladder rupture. He was having some issues with mobility and balance prior to the hospitalization- he has a walk in shower but was having to hold onto the shower due to the legs felt like they were rocking- he was having hip pain and not as active as he would have liked to have been- he came to [employer] as he is a member and it had been 2 years since he had been in last. He was using a cane prior just in the community in big crowds due to knee replacements. He has been home from the hospital a handful of days. 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 The job is waiting for him when he is ready to return. He does not have a w/c- he has a cane and a walker at home. No recent falls but does feel that his balance is not the best. He has no pain today. He does have some mild right hip pain and shoulder pain due to being in the bed for so long. He is a diabetic so he does have some N/T in his toes but nothing new. Feels that he is 30% back to baseline- he feels he needs more endurance, strength and balance. PMHx/Meds: no changes since he left [facility]. Objective Objective: Posture: FH, RS- can correct but does not maintain Gait: slow marty- FWW in clinic- 150 feet with 3 stop rest breaks. Stairs: asc recip with 2 HR 3 steps only- desc: non recip with 2 HR- 3 steps only HR/TR: able with UE A SLS: weight shift but does not SLS ROM: WFL in all planes Strength: Core: poor, Hip: Flexion: 4-/5, Extn: 4-/5, Add: 4/5, Abd: 4/5, IR/ER neutral: 4-/5, Knee: 4+/5, Ankle: 5/5 Sensation: diminished to gross touch bilaterally Flex: HS: severe Gastroc: severe Transfers: sit to stand: requires UE A Balance/Special Test Scores Lower Extremity Functional Score: 9 Goals Goal 1:: Patient will be I HEP and progression Goal Time Frame: 4-6 Weeks Goal 2:: Patient will sit to stand without UE A Goal Time Frame: 4-6 Weeks Goal 3:: Patient will ambulate >300 feet with a normalized gait pattern with LRD Goal Time Frame: 4-6 Weeks Goal 4:: Patient will asc/desc 8 recip with 1 HR Goal Time Frame: 4-6 Weeks Goal 5:: Patient will report 80% improvement Goal Time Frame: 4-6 Weeks Rehabilitation Potential Physical Therapy Diagnosis: Patient presents with hypomobility- he has decreased LE and core strength/stabilization, proprioception, flex and muscular endurance leading to abnormal gait, balance and decreased ability to perform ADL's. Rehabilitation Potential: Good Anticipated Interventions Patient/Client Instruction: Educate patient on: Benefits of Fitness Program Therapeutic Exercise to Include: Strength training, Endurance training, Balance training, Coordination, Agility training, Body mechanics, Postural training, Flexibilty training, Gait and locomotor training, Neuromotor development, Dynamic Lumbar Stabilization and Scapular Strength/Stabilization Functional Training to Include: Gait training Cryotherapy (ice pack, ice massage): Yes Thermo therapy (hot pack): Yes Ultrasound (thermal/non thermal): No Text: Thank you for the opportunity to evaluate your patient. For Medicare and Medicare HMO plans, please review the plan of care and approve it. It will need to be FAXED BACK to us at [phone] for Medicare purposes. For Medicare only, by signing this I certify the plan of care. Please let me know if there are questions or concerns regarding this plan of care. Physician Signature: Date:
== END 2023-08-04 19:00 | disposition home or self-care (01) ==
LOC: PT 12:30
PROVIDERS: PCP Family Medicine; Referring Provider Student in an Organized Health Care Education/Training Program; Visit Provider Family Medicine
DX: M62.81 Muscle weakness (generalized) (principal); I50.9 Heart failure, unspecified
CPT/HCPCS: 97110; 97162; 97166

== ENCOUNTER 2023-08-08 15:33 | Inpatient (IN) | payer MEDICARE, SELFPAY ==
[2020-03-07 09:49] VITALS: BMI 41.8
[2023-08-08 15:34] VITALS: BP 116/101; PULSE 99; RESP 24; TEMP 36.1; O2SAT 95
[2023-08-08 15:43] VITALS: BMI 44.2
[2023-08-08 15:46] VITALS: BP 110/73; PULSE 104; RESP 20; O2SAT 97
--- NOTE | 2023-08-08 15:48 | EX.ED.DYSGE1 ---
HPI History of Present Illness Chief Complaint: Lower Extremity Injury Narrative Narrative: Patient has a history of CHF, he has chronic lower extremity edema, it has been getting worse over the past few days to the point where he has been sleeping quite a bit, over the past 2 days he has not been able to ambulate or get out of bed secondary to pain. No fevers or chills, there is no change in color. At this time he does not have any shortness of breath or orthopnea. He is denying any chest pain. No trauma. [facility] Medical History A-fib Abdominal pain Abnormal stress test (07/2022) Acute exacerbation of CHF (congestive heart failure) Ambulates with cane Atherosclerosis of coronary artery without angina pectoris Bilateral lower extremity edema Cardiology follow-up encounter Chest pain Chronic HFrEF (heart failure with reduced ejection fraction) Chronic kidney disease Chronic kidney disease (CKD) COPD (chronic obstructive pulmonary disease) Coronary artery disease Dermatitis Diastolic dysfunction Elevated liver enzymes Elevated troponin Essential (primary) hypertension Fatty liver Former smoker Gastric ulcer Generalized muscle weakness GI (gastrointestinal bleed) Gout Heart murmur History of CHF (congestive heart failure) History of heart attack History of non-ST elevation myocardial infarction (NSTEMI) (05/05/21) History of non-ST elevation myocardial infarction (NSTEMI) History of stress test Hyperlipidemia Ischemic cardiomyopathy Kidney stones Low iron Non-rheumatic aortic stenosis NSTEMI, initial episode of care Obesity Obstructive sleep apnea Orthopnea Osteoarthritis Paroxysmal atrial fibrillation Secondary pulmonary arterial hypertension Shortness of breath on exertion Type 2 diabetes mellitus Home Medications aspirin 81 mg tablet,delayed release (Adult Aspirin Regimen) 81 mg PO DAILY heart health 04/14/18 [History Last Taken 06/28/23] multivitamin (Daily Multi-Vitamin tablet) 1 tab PO DAILY vitamin 01/25/19 [History Last Taken 06/28/23] allopurinol 100 mg tablet 200 mg PO DAILYCM GOUT 08/03/22 [History Last Taken 06/28/23] pantoprazole 40 mg tablet,delayed release 40 mg PO DAILY ppi #90 tabs 08/11/22 [Rx Last Taken 06/28/23] glipizide 5 mg tablet 5 mg PO BID diabetes 09/15/22 [History Last Taken Unknown] nitroglycerin 0.4 mg sublingual tablet 0.4 mg sublingual Q5-15M PRN chest pain #25 tabs 06/09/23 [Rx Last Taken Unknown] atorvastatin 80 mg tablet 80 mg PO QHS anticholesterol 06/29/23 [History Last Taken Unknown] isosorbide mononitrate 30 mg tablet,extended release 24 hr 30 mg PO DAILY see doctor #30 tabs 07/19/23 [Rx Last Taken Unknown] metoprolol tartrate 100 mg tablet 100 mg PO BID blood pressure #180 tabs 07/26/23 [Rx Last Taken Unknown] apixaban 5 mg tablet (Eliquis) 5 mg PO BID 08/05/23 [History Last Taken Unknown] furosemide 40 mg tablet 60 mg PO BID diuretic 08/05/23 [History Last Taken Unknown] Allergy/AdvReac Type Severity Reaction Status Date / Time metformin AdvReac Elevated Verified 08/08/23 15:34 LDH and anion gap Family History Mother , Age 80 Diabetes Hypertension Father , Age 55, coma Diabetes Hypertension Sister Hypertension Brother Diabetes Hypertension Cancer, Onset Age: 50 prostate cancer CAD (coronary artery disease) Surgical History History of appendectomy History of cardiac catheterization History of coronary artery stent placement (01/24/20) History of esophagogastroduodenoscopy (EGD) History of herniorrhaphy History of left heart catheterization (07/13/22) History of tonsillectomy History of total knee replacement (TKR) Status post cholecystectomy Social History household members: children Smoking Status: Former smoker quit date: 01/31/11 alcohol intake: current alcohol intake frequency: holidays/special occasions only substance use type: does not use caffeine: Yes Type: coffee ROS ROS ED ROS Narrative Past medical history: Reviewed includes CHF, A-fib, diabetes with neuropathy Medications: Reviewed, includes Eliquis and 120 mg of furosemide daily Social history: Noncontributory Review of systems: All systems negative except as indicated General: No fever Eyes: No visual changes ENT: No upper airway congestion, normal voice Neck: No neck pain Cardiovascular: No chest pain Respiratory: No shortness of breath or cough Gastrointestinal: No abdominal pain, nausea vomiting or diarrhea Genitourinary: No dysuria Musculoskeletal: As in HPI Skin: No rash Neurological: No memory loss, confusion or any focal weakness EXAM Physical Exam Narrative Exam Narrative: Physical exam General: The patient from the wheelchair to the bed, it was quite difficult to get him into bed. He was unsteady and barely stood up for just a few seconds. Head: Normocephalic, Atraumatic Eyes: Conjunctiva not pale ENT: Moist mucous membranes Neck: Supple, Nontender, No lymphadenopathy Cardiovascular: Regular rate, Regular rhythm. As far as I can tell normal S1 and S2 without any S3 or S4 no murmurs however the exam is difficult secondary to ambient noise. Respiratory: No distress, bilateral breath sounds but no respiratory distress, speaks in full sentences Abdomen: Soft, Nontender, Nondistended Back: Nontender, Normal Inspection. Negative for: CVA tenderness Extremities: Lateral lower extremity edema. It is symmetric. There is some seeping of clear fluid, there is no erythema or calor or any signs of cellulitis. Skin: Normal color, No rash Neurological: Alert, Normal Strength, Normal Sensation Const Vital Signs: 08/08/23 15:34 08/08/23 15:46 Temperature 96.9 F L Temperature Source Temporal Pulse Rate 99 104 H Respiratory Rate 24 H 20 H Blood Pressure 116/101 H 110/73 Blood Pressure Mean 106 85 Pulse Ox 95 97 Oxygen Delivery Method Room Air Room Air MDM MDM MDM Narrative Medical decision making narrative: Read by me is unremarkable without any significant pneumonia or significant CHF. MDM: Patient is found to have CHF according to natruretic peptide, also significant lower extremity edema. However the creatinine is worsened from baseline, patient meets criteria for YADIRA. Because of the YADIRA I am reluctant to give Lasix especially as the patient is on 120 mg of Lasix daily. He may need to see nephrology, he is unable to go home also because now he cannot even ambulate out of bed. I am not worried about a PE, patient has no chest pain shortness of breath and he is on Eliquis. Patient does not have any evidence of cellulitis. I will talk to the hospitalist for admission Lab Data Labs: Laboratory Results - last 24 hr 08/08/23 15:48 WBC 9.8 RBC 4.22 L Hgb 12.6 L Hct 40.9 MCV 96.9 H MCH 29.9 MCHC 30.8 L RDW Std Deviation 59.6 H RDW Coeff of Raphael 17.2 H Plt Count 160 MPV 10.8 Immature Gran % (Auto) 0.200 Neut % (Auto) 78.6 H Lymph % (Auto) 12.4 L Baldwin % (Auto) 7.9 Eos % (Auto) 0.6 Baso % (Auto) 0.3 Absolute Neuts (auto) 7.7 Absolute Lymphs (auto) 1.22 Nucleated RBC % 0 PT 22.8 H INR 2.0 Sodium 138 Potassium 4.5 Chloride 107 Carbon Dioxide 20.0 L Anion Gap 11 BUN 51 H Creatinine 2.46 H Estim Creat Clear Calc 25.49 Est GFR (MDRD) Af Amer 33 L Est GFR (MDRD) Non-Af 27 L BUN/Creatinine Ratio 20.7 H Glucose 177 H Calcium 8.1 L Total Bilirubin 1.50 H AST 47 H ALT 58 Alkaline Phosphatase 101 B-Natriuretic Peptide 2187.5 H Total Protein 6.3 L Albumin 3.1 L Globulin 3.2 Albumin/Globulin Ratio 1.0 Lipase 49 Radiography Diagnostic Testing: Clinical Impression(s) from Imaging Studies Chest X-Ray 08/08/23 16:01 IMPRESSION: Minimal infiltrate or atelectasis right lung base Electronically Signed: Filippo Guzman MD at 16:12 EDT , Rhythm Strip Rhythm Strip: A-fib Rate: 126 Ectopy: None EKG Initial EKG: Comments: Atrial fibrillation with a rate of 126. QTc is normal. Chronic ST and T wave abnormalities without acute ischemic changes. Interpreted by emergency doctor Discharge Plan Triage Chief Complaint: Lower Extremity Injury Other Complaint: Edema ED Provider: Tomasz Whitley Dx/Rx/DC Orders Clinical Impression: YADIRA (acute kidney injury), Diabetes, CHF (congestive heart failure), Neuropathy, Anasarca, Debility Prescriptions: No Action aspirin [Adult Aspirin Regimen] 81 mg tablet,delayed release (DR/EC) 81 mg PO DAILY multivitamin [Daily Multi-Vitamin] tablet 1 tab PO DAILY glipizide 5 mg tablet 5 mg PO BID Eliquis 5 mg tablet 5 mg PO BID furosemide 40 mg tablet 60 mg PO BID allopurinol 100 mg tablet 200 mg PO DAILYCM atorvastatin 80 mg tablet 80 mg PO QHS Rx Instructions: TAKE 1 TABLET AT BEDTIME isosorbide mononitrate 30 mg Tablet Extended Release 24 Hr 30 mg PO DAILY Qty: 30 2RF pantoprazole 40 mg tablet,delayed release (DR/EC) 40 mg PO DAILY Qty: 90 3RF nitroglycerin 0.4 mg tablet, sublingual 0.4 mg sublingual Q5-15M PRN (Reason: chest pain) Qty: 25 3RF Rx Instructions: do not exceed 3 doses per episode metoprolol tartrate 100 mg tablet 100 mg PO BID Qty: 180 3RF Primary Care Provider: Boston Figueroa Referrals: Boston Figueroa MD [Primary Care Provider] - Disposition Disposition: Acute Care Hospital [facility]
--- NOTE | 2023-08-08 15:51 | EKG12_ITS ---
Test Reason : Blood Pressure : / mmHG Vent. Rate : 126 BPM Atrial Rate : 000 BPM P-R Int : 000 ms QRS Dur : 092 ms QT Int : 304 ms P-R-T Axes : 000 -20 151 degrees QTc Int : 440 ms Atrial fibrillation with rapid ventricular response ST & T wave abnormality, consider lateral ischemia Abnormal ECG When compared with ECG of 22-JUL-2023 13:36, MANUAL COMPARISON REQUIRED, DATA IS UNCONFIRMED Confirmed by REYNA MOYER, CINTHYA ([id number]), market editor COLLIN MORENO ([id number]) on 08/16/2023 1:55:11 PM Referred By: JEN Confirmed By:CINTHYA ORELLANA MD
[2023-08-08 15:59] LABS: Absolute Lymphocyte Count 1.22 X10^3/uL (0.83-4.51); Absolute Neutrophil Count 7.7 X10^3/uL (2.0-7.7); Basophil# 0.03 X10^3/uL; Basophil% 0.3 % (0-1); Eosinophil# 0.06 X10^3/uL; Eosinophils% 0.6 % (0-5); Hematocrit 40.9 % (40-54); Hemoglobin 12.6 g/dL (13.0-16.5); Lymphocyte # 1.22 X10^3/ul (0.83-4.51); Lymphocyte % 12.4 % (19-41); Mean Corp Hgb Conc 30.8 g/dL (32-36); Mean Corpuscular Hgb 29.9 pg (27.0-32.0); Mean Corpuscular Volume 96.9 fL (80-94); Mean Platelet Vol. 10.8 fl (6.2-12.0); Monocyte# 0.78 X10^3/uL; Monocyte% 7.9 % (0-10); NRBC Flagged by Analyzer 0 % (0-5); Neutrophil # 7.72 X10^3/uL (2.7-7.7); Neutrophil % 78.6 % (47-70); Platelet Count 160 K/mm3 (150-450); RBC Distribution Width CV 17.2 % (11.6-14.6); RBC Distribution Width SD 59.6 fl (35.1-43.9); Red Blood Count 4.22 M/mm3 (4.6-6.2); White Blood Count 9.8 K/mm3 (4.4-11.0)
--- NOTE | 2023-08-08 16:01 | RAD_ITS ---
EXAM: XR CHEST, 1 VIEW CLINICAL INDICATION: chf TECHNIQUE: Frontal view of the chest. COMPARISON: XR Chest dated 07/17/2023 FINDINGS: LUNGS AND PLEURAL SPACES: Minimal infiltrate or atelectasis right lung base. Shallow inspiration. HEART: Normal heart size. MEDIASTINUM: No mediastinal or hilar mass. BONES/JOINTS: No acute abnormality. UPPER ABDOMEN: Mild elevation of the right hemidiaphragm. RAD/Chest 1 View (Portable) IMPRESSION: Minimal infiltrate or atelectasis right lung base Electronically Signed: Filippo Guzman MD at 16:12 EDT ,
[2023-08-08] MEDS: Morphine 4 MG/ML Syringe IV (16:14)
[2023-08-08] MEDS: Ondansetron 4 MG/2 ML Vial IV (16:14)
[2023-08-08 16:29] LABS: AST(SGOT) 47 U/L (15-37); Alanine Aminotransfer ALT/SGPT 58 U/L (16-61); Albumin, Serum 3.1 g/dL (3.2-5.0); Alkaline Phosphatase 101 U/L (45-117); Anion Gap 11 (5-15); BUN 51 mg/dL (7-18); BUN/Creat Ratio 20.7 RATIO (10-20); Calcium,Total 8.1 mg/dL (8.5-10.1); Chloride 107 mmol/L (98-107); Creatinine, Serum 2.46 mg/dL (0.70-1.30); EST Glomerular Filtration Rate 27 mL/min (>60); Est Glom Filt Rate - Afr Amer 33 mL/min (>60); Estimated Creatinine Clearance 25.49 ml/min; Globulin 3.2 g/dL (2.2-4.2); Glucose 177 mg/dL (74-106); Lipase 49 U/L (13-75); Potassium 4.5 mmol/L (3.5-5.1); Protein, Total 6.3 g/dL (6.4-8.2); Sodium Level 138 mmol/L (136-145)
[2023-08-08 16:44] LABS: Prothrombin Time (Protime)PT. 22.8 SECONDS (11.7-14.9)
[2023-08-08 16:45] LABS: BNP,B-Type NATRIURETIC PEPTIDE 2187.5 pg/mL (0-100)
--- NOTE | 2023-08-08 16:53 | HP.PCM.HOS_ITS ---
HPI - General General Date of Admission: 08/08/23 Date of Service: 08/08/23 Chief Complaint: Lower extremity swelling, debility HPI Narrative LUIS DEE, is a 73 M with history of chronic debility, HFrEF, CAD s/p stenting, CKD stage III, type 2 diabetes with neuropathy, hypertension, A-fib on Eliquis, morbid obesity, gout and GERD who presented to [facility] ED on 08/08/2023 worsening lower extremity swelling. Patient seen at bedside in the ED, son present. Patient laying comfortably in bed, conversing normally, no acute distress. States that he came to the ED today because his legs have become progressively more swollen over the past several days to week, and he is now hardly able to get out of bed on his own. Patient lives with his son, typically uses a walker to ambulate but has been able to do things for himself up to this point. Notably was hospitalized from 07/21 to 07/23, was evaluated by physical therapy at that time and they determined he was safe to go home with outpatient physical therapy. 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 Because he was hardly able to get out of bed and into his car, his son encouraged him to take a few days off from driving. His son has noticed that his functional status has definitely seem to worsen over the past week or so. Patient states his legs have always felt swollen, but they feel a bit more swollen now than previous and his neuropathy due to diabetes has also been causing him a lot of pain and discomfort. Patient was recently seen in the cardiology office on 08/05, had home Lasix dose increased from 40 mg twice daily to 60 mg twice daily. Since then, he has been urinating very frequently and feels like his mouth is very dry. He has been drinking a good amount of water to try to keep up with urine output, but his appetite has been fairly poor. Patient otherwise denies any fevers or chills, chest pain, shortness of breath, abdominal pain. Patient does report mildly worsening abdominal distention that he attributes to fluid building up in the belly. He denies any belly pain or tenderness. He otherwise denies any lightheadedness or dizziness. No other acute concerns currently. Vitals in ED notable for A-fib with heart rate to 120s, satting in mid to high 90s on room air, otherwise unremarkable. Labs notable for WBC count 9.8, hemoglobin 12.6, platelets 160, INR 2.0, sodium 138, potassium 4.5, chloride 107, bicarb 20, BUN 51, creatinine 2.46, glucose 177, total bilirubin 1.50, AST 47, ALT 58, alk phos 101, albumin 3.1, BNP 2187, lipase 49. EKG showed A-fib with RVR to heart rate 126, no ST changes noted. Chest x-ray was nonacute. [facility] Medical History A-fib Abdominal pain Abnormal stress test (07/2022) Acute exacerbation of CHF (congestive heart failure) Ambulates with cane Atherosclerosis of coronary artery without angina pectoris Bilateral lower extremity edema Cardiology follow-up encounter Chest pain Chronic HFrEF (heart failure with reduced ejection fraction) Chronic kidney disease Chronic kidney disease (CKD) COPD (chronic obstructive pulmonary disease) Coronary artery disease Dermatitis Diastolic dysfunction Elevated liver enzymes Elevated troponin Essential (primary) hypertension Fatty liver Former smoker Gastric ulcer Generalized muscle weakness GI (gastrointestinal bleed) Gout Heart murmur History of CHF (congestive heart failure) History of heart attack History of non-ST elevation myocardial infarction (NSTEMI) (05/05/21) History of non-ST elevation myocardial infarction (NSTEMI) History of stress test Hyperlipidemia Ischemic cardiomyopathy Kidney stones Low iron Non-rheumatic aortic stenosis NSTEMI, initial episode of care Obesity Obstructive sleep apnea Orthopnea Osteoarthritis Paroxysmal atrial fibrillation Secondary pulmonary arterial hypertension Shortness of breath on exertion Type 2 diabetes mellitus Home Medications aspirin 81 mg tablet,delayed release (Adult Aspirin Regimen) 81 mg PO DAILY heart health 04/14/18 [History Last Taken 06/28/23] multivitamin (Daily Multi-Vitamin tablet) 1 tab PO DAILY vitamin 01/25/19 [History Last Taken 06/28/23] allopurinol 100 mg tablet 200 mg PO DAILYCM GOUT 08/03/22 [History Last Taken 06/28/23] pantoprazole 40 mg tablet,delayed release 40 mg PO DAILY ppi #90 tabs 08/11/22 [Rx Last Taken 06/28/23] glipizide 5 mg tablet 5 mg PO BID diabetes 09/15/22 [History Last Taken Unknown] nitroglycerin 0.4 mg sublingual tablet 0.4 mg sublingual Q5-15M PRN chest pain #25 tabs 06/09/23 [Rx Last Taken Unknown] atorvastatin 80 mg tablet 80 mg PO QHS anticholesterol 06/29/23 [History Last Taken Unknown] isosorbide mononitrate 30 mg tablet,extended release 24 hr 30 mg PO DAILY see doctor #30 tabs 07/19/23 [Rx Last Taken Unknown] metoprolol tartrate 100 mg tablet 100 mg PO BID blood pressure #180 tabs 0 07/26/23 [Rx Last Taken Unknown] apixaban 5 mg tablet (Eliquis) 5 mg PO BID 08/05/23 [History Last Taken Unknown] furosemide 40 mg tablet 60 mg PO BID diuretic 08/05/23 [History Last Taken Unknown] Allergy/AdvReac Type Severity Reaction Status Date / Time metformin AdvReac Elevated Verified 08/08/23 15:34 LDH and anion gap Family History Mother , Age 80 Diabetes Hypertension Father , Age 55, coma Diabetes Hypertension Sister Hypertension Brother Diabetes Hypertension Cancer, Onset Age: 50 prostate cancer CAD (coronary artery disease) Surgical History History of appendectomy History of cardiac catheterization History of coronary artery stent placement (01/24/20) History of esophagogastroduodenoscopy (EGD) History of herniorrhaphy History of left heart catheterization (07/13/22) History of tonsillectomy History of total knee replacement (TKR) Status post cholecystectomy Social History household members: children Smoking Status: Former smoker quit date: 01/31/11 alcohol intake: current alcohol intake frequency: holidays/special occasions only substance use type: does not use caffeine: Yes Type: coffee ROS Constitutional Constitutional: Reports change in weight, fatigue and weakness; Denies chills or fever(s) Eyes Eyes: Denies change in vision Cardiovascular Cardiovascular: Reports edema; Denies chest pain, dyspnea on exertion, lightheadedness, orthopnea, rapid heart rate or syncope Respiratory/Chest Respiratory/Chest: Denies cough or shortness of breath at rest Gastrointestinal Gastrointestinal: Denies abdominal pain, constipation, diarrhea, nausea or vo miting Genitourinary Genitourinary: Denies dysuria Musculoskeletal Musculoskeletal: Denies back pain Neurologic Neurologic: Denies confusion, dizziness, focal weakness, numbness or paresthesias Vital Signs Vital Signs Vital Signs: 08/08/23 15:34 08/08/23 15:46 Temperature 96.9 F L Temperature Source Temporal Pulse Rate 99 104 H Respiratory Rate 24 H 20 H Blood Pressure 116/101 H 110/73 Blood Pressure Mean 106 85 Pulse Ox 95 97 Oxygen Delivery Method Room Air Room Air Weight Weight: 132 kg Body Mass Index (BMI) 44.2 Physical Exam Const alert and oriented x3 Constitutional Narrative: Pleasant elderly male, morbidly obese, laying comfortably in bed, conversing normally, no acute distress. General Appearance: cooperative and comfortable HEENT normocephalic, head/scalp atraumatic, hearing grossly normal bilaterally, nasal mucous membranes and turbinates normal and moist oral mucous membranes Eyes PERRL, EOMs intact bilaterally and conjunctivae normal Neck full ROM, no lymphadenopathy and supple Lymph Lymphatic: no lymphadenopathy noted Chest inspection of chest normal Resp normal respiratory effort, normal air movement, no use of accessory muscles and clear to auscultation bilaterally Cardio no murmurs and peripheral pulses 2+ throughout Cardio Narrative: A-fib with RVR. GI GI Narrative: Abdomen mildly distended but soft and nontender. No fluid wave noted. Back/Spine normal ROM Extremity Extremity Narrative: 4+ pitting edema noted up to low to mid thigh. Skin no rashes or lesions noted Psych mental status grossly normal Results Lab / Micro Data 08/08/23 15:48 08/08/23 15:48 Labs: Laboratory Results - last 24 hr 08/08/23 15:48: WBC 9.8, RBC 4.22 L, Hgb 12.6 L, Hct 40.9, MCV 96.9 H, MCH 29.9, MCHC 30.8 L, RDW Std Deviation 59.6 H, RDW Coeff of Raphael 17.2 H, Plt Count 160, MPV 10.8, Immature Gran % (Auto) 0.200, Neut % (Auto) 78.6 H, Lymph % (Auto) 12.4 L, Granite % (Auto) 7.9, Eos % (Auto) 0.6, Baso % (Auto) 0.3, Absolute Neuts (auto) 7.7, Absolute Lymphs (auto) 1.22, Nucleated RBC % 0, PT 22.8 H, INR 2.0, Sodium 138, Potassium 4.5, Chloride 107, Carbon Dioxide 20.0 L, Anion Gap 11, BUN 51 H, Creatinine 2.46 H, Estim Creat Clear Calc 25.49, Est GFR (MDRD) Af Amer 33 L, Est GFR (MDRD) Non-Af 27 L, BUN/Creatinine Ratio 20.7 H, Glucose 177 H, Calcium 8.1 L, Total Bilirubin 1.50 H, AST 47 H, ALT 58, Alkaline Phosphatase 101, B-Natriuretic Peptide 2187.5 H, Total Protein 6.3 L, Albumin 3.1 L, Globulin 3.2, Albumin/Globulin Ratio 1.0, Lipase 49 Rhythm Strip Rhythm Strip: A-fib Rate: 126 Ectopy: None Radiology Impression Chest X-Ray 08/08/23 16:01 IMPRESSION: Minimal infiltrate or atelectasis right lung base Electronically Signed: Filippo Guzman MD at 16:12 EDT , Assessment & Plan Assessment/Plan (1) Debility: (2) YADIRA (acute kidney injury): PLAN: Plan Patient is a 73-year-old male with history of chronic debility, HFrEF, CAD s/p stenting, CKD stage III, type 2 diabetes with neuropathy, hypertension, A-fib on Eliquis, morbid obesity, gout and GERD who presented to [facility] ED on 08/08/2023 worsening lower extremity swelling. 1. HFrEF with chronic LE swelling, YADIRA on CKD III Suspect patient is intravascularly dry with chronic bilateral lower extremity swelling primarily due to venous insufficiency. Patient saw cardiology in the office on 08/05, home Lasix dose was increased from 40 mg twice daily to 60 mg twice daily. Patient has taken higher dose for the last 3 days. States he has been peeing very frequently and his mouth feels very dry. Has been drinking a decent amount of water but food intake has been poor. Creatinine 2.46, BUN 51 on admit. Baseline creatinine around 1.4-1.7. Labs otherwise appear somewhat hemoconcentrated. Chest x-ray shows no evidence of volume overload. Patient satting in mid to high 90s on room air. BNP 2187 which is mildly elevated from baseline of around 1500. Last echo on 06/28/2023 showed an EF of 40% with mild global LV hypokinesis, mild diastolic dysfunction, moderate aortic stenosis. ? Admit under inpatient status to [facility] with telemetry. We will give one-time dose of IV albumin 25 g now, recheck BMP tomorrow morning. Hold home Lasix for now. Cardiology consulted for further recommendations. Can consider nephrology consultation as needed. SCDs applied to bilateral legs to assist with fluid recruitment. Lower likelihood of lower extremity DVTs given patient reports compliance with home Eliquis for A-fib as well, but will obtain lower extremity duplex ultrasound to rule out DVT. 2. Chronic debility with worsening functional status, morbid obesity Patient lives at home with his son. Has had 2 recent hospitalizations, first from 06/29 to 07/05 for gallstone pancreatitis as noted below, second from 07/21 to 07/23 for generalized weakness with nausea and vomiting. PT/OT/case management followed on last hospitalization; per case management note from 07/23, patient had good functional status with PT/OT and was okay for discharge home with outpatient physical therapy. Patient and son state that patient has hardly been able to get out of bed especially over the last week. Has been going to [facility] for outpatient physical therapy till then. Patient states that is primarily his lower extremity edema that is causing his diminished functional status, although he reports generalized worsening fatigue as well. ? PT/OT/case management consulted. Fall precautions in place. 3. Mildly abnormal LFTs, concern for abdominal distention, recent gallstone pancreatitis s/p ERCP and subsequent laparoscopic cholecystectomy Patient hospitalized from 06/29 to 07/05 for gallstone pancreatitis. S/p ERCP on 06/30 with removal of gallstone and biliary sphincterotomy, then laparoscopic cholecystectomy on 07/02. Patient reports good recovery after these procedures. Continues to have somewhat limited appetite since then. Does note that whenever he eats, he has a bowel movement about 15 to 30 minutes after this. Bowel movement is fairly normal in consistency. Denies any concern for constipation. Patient does note that his abdomen feels more full with fluid over the last few weeks. States appetite has been slightly worse over that time than previous, but overall appetite has been fairly poor since his procedures. Total bilirubin 1.50, AST 47, ALT 58, alk phos 101, albumin 3.1 on admit. Patient has soft but possibly mildly distended abdomen on exam, no fluid wave appreciated but difficult to assess with patient's obesity. No abdominal tenderness to palpation. ? Abdominal ultrasound ordered to rule out significant ascites or recurrent right upper quadrant pathology. Trend LFTs. Chronic medical conditions: ? CAD s/p stenting: Continue home aspirin, statin, isosorbide mononitrate. ? A-fib: EKG in ED showed A-fib with RVR to heart rate 126, no ST changes noted. Continue home Eliquis and Lopressor. ? Type 2 diabetes: Appears he is only on glipizide 5 mg daily. Last hemoglobin A1c 7.1% on 06/30/2023. Sliding-scale insulin while inpatient. ? Gout: On home allopurinol 200 mg daily. Unclear as to why this has not been dose reduced given his chronic kidney disease. Current GFR of 27, will dose reduce to 50 mg every other day. ? GERD: Continue home PPI. ? JUAN ALBERTO: Does not wear home CPAP. DVT prophylaxis: Eliquis CODE STATUS: Full code, verified Expected disposition: Home with home health care versus SNF, 3 to 4 days Total clinical time spent by myself addressing the patient's medical issues, reviewing all the data, and collaborating with patient's care team: 55 minutes. Charges/Coding Visit Charges Inpatient E&M: 99079 Init Hosp L2
[2023-08-08 17:30] VITALS: BP 110/87; PULSE 110; RESP 18; O2SAT 95
[2023-08-08 18:22] VITALS: BP 95/69; PULSE 102; RESP 18; TEMP 36.6; O2SAT 94
--- NOTE | 2023-08-08 18:23 | VDLE_ITS ---
Reason For Study: Bilateral leg swelling RIGHT LEFT GSV is normal. GSV is normal. CFV is compressible, spontaneous, phasic, CFV is compressible, spontaneous, phasic, competent and demonstrates normal competent, and demonstrates normal augmentation. augmentation. FV is compressible, spontaneous, phasic, FV is compressible, spontaneous, phasic, competent and demonstrates normal competent and demonstrates normal augmentation. augmentation. POP V is compressible, spontaneous, phasic, POP V is compressible, spontaneous, phasic, competent and demonstrates normal competent and demonstrates normal augmentation. augmentation. T/P Trunk is compressible. T/P Trunk is compressible. PTV is compressible. PTV is compressible. RT PerV is compressible. LT PerV is compressible. Procedure This is a venous duplex using B-mode, color flow and spectral Doppler. Exam performed portable in patient room. A preliminary report was called and/or faxed to [facility]. VL/Venous Duplex US - Wesley Extrem Interpretation Summary Deep veins of the bilateral lower extremities are patent and compressible segme ntally. There is no evidence of bilateral lower extremity deep vein thrombosis. The bilateral great saphenous veins appear patent and compressible segmentally. Ordering Physician: Junito Yepez Referring Physician: Boston Figueroa Performed By: Coreen Sims RVT
[2023-08-08 18:32] VITALS: BMI 43.1
[2023-08-08] MEDS: Acetaminophen 325 MG Tablet 650 MG PO (18:53)
[2023-08-08] MEDS: Furosemide 500 MG in Empty Viaflex 50 mL 1 EACH CONT INF (20:31)
[2023-08-08] MEDS: Albumin Human 25% (100 mL) 25 GM/100 ML BAG IV (20:32)
[2023-08-08 20:37] VITALS: PULSE 118
[2023-08-08] MEDS: Atorvastatin Calcium 80 MG Tablet PO (20:37)
[2023-08-08] MEDS: Metoprolol Tartrate 100 MG Tablet PO (20:37)
[2023-08-08] MEDS: APIXABAN 5 MG TABLET PO (20:38)
[2023-08-08 21:31] LABS: Bedside Glucose 157 mg/dL (74-106)
[2023-08-08] MEDS: oxyCODONE 5 MG Tablet PO (22:30)
[2023-08-08 22:35] VITALS: O2SAT 93
[2023-08-09] VITALS (11 sets, daily range): BP systolic 97–122; BP diastolic 57–83; PULSE 90–115; RESP 14–20; TEMP 36.4–36.9; O2SAT 93–100; BMI 43.4
[2023-08-09] MEDS: oxyCODONE 5 MG Tablet PO (04:41)
[2023-08-09] MEDS: Acetaminophen 325 MG Tablet 650 MG PO (04:42)
[2023-08-09 05:03] LABS: Bedside Glucose 157 mg/dL (74-106)
[2023-08-09 06:23] LABS: Hematocrit 39.1 % (40-54); Hemoglobin 11.8 g/dL (13.0-16.5); Mean Corp Hgb Conc 30.2 g/dL (32-36); Mean Corpuscular Hgb 29.6 pg (27.0-32.0); Mean Corpuscular Volume 98.2 fL (80-94); Mean Platelet Vol. 10.7 fl (6.2-12.0); Platelet Count 146 K/mm3 (150-450); RBC Distribution Width CV 17.2 % (11.6-14.6); RBC Distribution Width SD 61.6 fl (35.1-43.9); Red Blood Count 3.98 M/mm3 (4.6-6.2); White Blood Count 11.3 K/mm3 (4.4-11.0)
[2023-08-09 06:52] LABS: Anion Gap 9 (5-15); BUN 58 mg/dL (7-18); BUN/Creat Ratio 22.4 RATIO (10-20); Calcium,Total 8.1 mg/dL (8.5-10.1); Chloride 104 mmol/L (98-107); Creatinine, Serum 2.59 mg/dL (0.70-1.30); EST Glomerular Filtration Rate 26 mL/min (>60); Est Glom Filt Rate - Afr Amer 31 mL/min (>60); Estimated Creatinine Clearance 25.02 ml/min; Glucose 145 mg/dL (74-106); Potassium 4.4 mmol/L (3.5-5.1); Sodium Level 138 mmol/L (136-145)
--- NOTE | 2023-08-09 07:00 | US_ITS ---
INDICATION: Rule out significant ascites EXAMINATION: Ultrasound US Abdomen Complete TECHNIQUE: Ochoa-scale and color Doppler imaging was performed of the abdomen. COMPARISON: No relevant prior comparison study available FINDINGS: LIVER: The liver is normal in size and shape with mildly increased echogenicity. No focal hepatic lesion. No intrahepatic biliary ductal dilatation. Small volume ascites noted. GALLBLADDER AND BILIARY TREE: Cholecystectomy. The proximal common bile duct measures 0.5 cm, which is within normal limits for the patient''s age. The stent is not seen. PANCREAS: Not seen due to bowel gas. RIGHT KIDNEY: The right kidney measures 12.7 x 5.6 x 6.3 cm. No hydronephrosis or nephrolithiasis. No renal mass. LEFT KIDNEY: The left kidney measures 10.4 x 5.8 x 5.5 cm. No hydronephrosis or nephrolithiasis. No renal mass. SPLEEN: The spleen is normal in size and homogeneous in echotexture. The spleen measures 12.6 cm. VESSELS: Aorta not well seen due to bowel gas. The IVC is patent. US/Abdomen Complete IMPRESSION: Small volume ascites. Hepatic steatosis. Electronically Signed: Jeffrey Villafana MD at 10:20 EDT ,
[2023-08-09 07:14] LABS: Bedside Glucose 131 mg/dL (74-106)
--- NOTE | 2023-08-09 07:26 | PCM.CONS.C ---
Assessment & Plan Assessment/Plan (1) CHF (congestive heart failure): PLAN: He does have evidence of congestive heart failure which is likely secondary to a combination of issues including Dietary indiscretion Worsening renal function Atrial fibrillation Coronary artery disease Recommendation would be to optimize CHF teaching, obtain a nephrology consult, increase diuresis for now and see how he does. His most recent echocardiogram performed in June of this year had demonstrated an ejection fraction of 40%. He did have mild mitral and tricuspid regurgitation and mild aortic stenosis (2) Paroxysmal atrial fibrillation: PLAN: He does have evidence of atrial fibrillation which is now permanent. His ventricular response rate does not appear to be very well controlled. We will try and optimize his medical therapy. He is on metoprolol 100 mg twice a day which should be continued. Due to his renal dysfunction I would not suggest that we add diltiazem but may be a low-dose of amiodarone only for rate control. (3) History of coronary artery stent placement: PLAN: He does have a history of coronary artery disease status post angioplasty and stenting remotely. He underwent a cardiac catheterization in July 2023 demonstrating patency of the stent in the left anterior descending artery, nondominant circumflex artery, and the right coronary artery. Medical therapy was recommended. (4) Non-rheumatic aortic stenosis: PLAN: He does have evidence of aortic stenosis which appears to be moderate with a peak gradient of 32 mmHg, and mean gradient of 21 mmHg and an ejection fraction of 40%. We will continue current medical therapy with no changes. HPI Consult Data Date of Consult: 08/09/23 HPI Narrative HPI Narrative: LUIS DEE, is a 73 M who presents with swelling of his left leg. He said that he went to yazidism yesterday and after that went to have lunch at his favorite [place] restaurant. By the time he got home he realized that his left leg was swollen and his socks were making an indentation so he called his son and they decided to present to the emergency room. He was noted not to be particularly short of breath but natruretic peptide level was obtained demonstrated an increased level, his creatinine was also increased and he was admitted with CHF exacerbation and cardiology was consulted. He has a history of coronary artery disease status post non-ST elevation myocardial infarction in January 2019. At that time he had 2 drug-eluting stents placed to the right coronary artery. In April 2019 he presented and underwent 2 drug-eluting stents placed to the circumflex artery as well as the obtuse marginal branch and the left anterior descending artery. A year later in December 2019 he had a drug-eluting stent placed to the proximal LAD, drug-eluting stent with in-stent stenosis to the right coronary artery and balloon angioplasty to the obtuse marginal branch as well as the first diagonal vessel. He also has a history of hypertension, hyperlipidemia, obstructive sleep apnea, anemia, and mild to moderate aortic stenosis. He presented to the hospital with chest discomfort in April of 2021 with heart failure with reduced ejection fraction. His echocardiogram demonstrated an ejection fraction of 45% with apical hypokinesis biatrial enlargement and aortic valve area of 1.6 cm?. His troponins were elevated and therefore he underwent a repeat cardiac catheterization which demonstrated patency of his stents in the LAD, circumflex artery, and right coronary artery. His Plavix was discontinued due to anemia. He does not have bleeding issues; he was evaluated by the electric motor rebuilder and no evidence of hemolytic anemia was noted. An EGD was performed in July 2021 which demonstrated no evidence of active bleeding his hemoglobin was stable. During his last office visit in October 2021 his BNP was elevated at over 1100 and his torsemide was restarted. He does follow with a van driver helper. He had recently been hospitalized with gallstone pancreatitis and underwent a cholecystectomy. He also presented to the emergency room and had a CT of the abdomen and pelvis with IV contrast not demonstrating any acute pathology. He had been recently admitted to the hospital with a non-ST elevation myocardial infarction underwent a cardiac catheterization which demonstrated diffuse triple-vessel disease with previously placed stents which were patent and the recommendation was for medical therapy with aspirin Plavix and high intensity statin. His other cardiac problems include atrial fibrillation as well as aortic valvular disease which appears to be in the moderate range. He had recently been seen in the office and his Lasix was increased to 60 mg twice a day. [facility] Medical History (Updated 08/09/23 @ 07:[address] Sabas Bae MD) A-fib Abdominal pain Abnormal stress test (07/2022) Acute exacerbation of CHF (congestive heart failure) Ambulates with cane Atherosclerosis of coronary artery without angina pectoris Bilateral lower extremity edema Cardiology follow-up encounter Chest pain Chronic HFrEF (heart failure with reduced ejection fraction) Chronic kidney disease Chronic kidney disease (CKD) COPD (chronic obstructive pulmonary disease) Coronary artery disease Dermatitis Diastolic dysfunction Elevated liver enzymes Elevated troponin Essential (primary) hypertension Fatty liver Former smoker Gastric ulcer Generalized muscle weakness GI (gastrointestinal bleed) Gout Heart murmur History of CHF (congestive heart failure) History of heart attack History of non-ST elevation myocardial infarction (NSTEMI) (05/05/21) History of non-ST elevation myocardial infarction (NSTEMI) History of stress test Hyperlipidemia Ischemic cardiomyopathy Kidney stones Low iron Non-rheumatic aortic stenosis NSTEMI, initial episode of care Obesity Obstructive sleep apnea Orthopnea Osteoarthritis Paroxysmal atrial fibrillation Secondary pulmonary arterial hypertension Shortness of breath on exertion Type 2 diabetes mellitus Home Medications aspirin 81 mg tablet,delayed release (Adult Aspirin Regimen) 81 mg PO DAILY heart health 04/14/18 [History Last Taken 08/08/23] multivitamin (Daily Multi-Vitamin tablet) 1 tab PO DAILY vitamin 01/25/19 [History Last Taken 08/08/23] allopurinol 100 mg tablet 200 mg PO DAILYCM GOUT 08/03/22 [History Last Taken 08/08/23] pantoprazole 40 mg tablet,delayed release 40 mg PO DAILY ppi #90 tabs 08/11/22 [Rx Last Taken 08/08/23] glipizide 5 mg tablet 5 mg PO BID diabetes 09/15/22 [History Last Taken 08/08/23] nitroglycerin 0.4 mg sublingual tablet 0.4 mg sublingual Q5-15M PRN chest pain #25 tabs 06/09/23 [Rx Last Taken Unknown] atorvastatin 80 mg tablet 80 mg PO QHS anticholesterol 06/29/23 [History Last Taken 08/07/23] isosorbide mononitrate 30 mg tablet,extended release 24 hr 30 mg PO DAILY see doctor #30 tabs 07/19/23 [Rx Last Taken 08/08/23] metoprolol tartrate 100 mg tablet 100 mg PO BID blood pressure #180 tabs 07/26/23 [Rx Last Taken 08/08/23] apixaban 5 mg tablet (Eliquis) 5 mg PO BID blood thinner 08/05/23 [History Last Taken 08/08/23] furosemide 40 mg tablet 60 mg PO BID diuretic 08/05/23 [History Last Taken 08/08/23] melatonin 10 mg capsule 10 mg PO QHS PRN sleep 08/08/23 [History Last Taken 08/08/23] Allergy/AdvReac Type Severity Reaction Status Date / Time metformin AdvReac Elevated Verified 08/08/23 15:34 LDH and anion gap Family History Mother , Age 80 Diabetes Hypertension Father , Age 55, coma Diabetes Hypertension Sister Hypertension Brother Diabetes Hypertension Cancer, Onset Age: 50 prostate cancer CAD (coronary artery disease) Surgical History (Updated 08/09/23 @ 07:[address] Sabas Bae MD) History of appendectomy History of cardiac catheterization History of coronary artery stent placement (01/24/20) History of esophagogastroduodenoscopy (EGD) History of herniorrhaphy History of left heart catheterization (07/13/22) History of tonsillectomy History of total knee replacement (TKR) Status post cholecystectomy Social History household members: children Smoking Status: Former smoker quit date: 01/31/11 alcohol intake: current alcohol intake frequency: holidays/special occasions only substance use type: does not use caffeine: Yes Type: coffee Physical Exam Const alert, oriented x3 and no apparent distress General Appearance: cooperative HEENT hearing grossly normal bilaterally Head and Scalp: atraumatic Eyes EOMs intact bilaterally Neck General: normal visual inspection Chest inspection of chest normal and palpation of chest normal Resp normal respiratory effort Auscultation: diminished lung sounds Cardio S1 normal heart sound and S2 normal heart sound Jugular Venous Distention: JVD Rhythm: abnormal rhythm irregularly irregular GI normal to inspection, nondistended, normoactive bowel sounds Extremity normal capillary refill General Extremity: edema left Peripheral Pulses: Yes pulses 2+ throughout and femoral pulses present Skin no rashes or lesions noted Neuro oriented x3 and CN's II-XII intact bilaterally Psych Appearance: grossly normal and appropriate Risk Stratification Risk Stratification Applicable: No Objective Data Vital Signs: Vital Signs Temp Pulse Resp BP Pulse Ox O2 Del Method O2 Flow Rate 97.6 F L 95 20 H 100/67 93 Nasal Cannula 2 08/09/23 06:24 08/09/23 06:24 08/09/23 06:24 08/09/23 06:24 08/09/23 07:10 08/09/23 07:10 08/09/23 07:10 FiO2 2 08/08/23 22:00 Oxygen Flow Rate (L/min) 2 Oxygen Delivery Method Nasal Cannula Weight: 294 lb 1.546 oz Body Mass Index (BMI) 43.4 Intake & Output: Intake and Output for Last 24 Hours 08/07/23 08/08/23 08/09/23 23:59 23:59 23:59 Intake Total 100 / 580 600 / 600 Balance 100 / 580 600 / 600 Lab / Micro Data 08/09/23 05:32 08/09/23 05:32 Labs: Laboratory Results - last 24 hr 08/08/23 15:48: WBC 9.8, RBC 4.22 L, Hgb 12.6 L, Hct 40.9, MCV 96.9 H, MCH 29.9, MCHC 30.8 L, RDW Std Deviation 59.6 H, RDW Coeff of Raphael 17.2 H, Plt Count 160, MPV 10.8, Immature Gran % (Auto) 0.200, Neut % (Auto) 78.6 H, Lymph % (Auto) 12.4 L, [place] % (Auto) 7.9, Eos % (Auto) 0.6, Baso % (Auto) 0.3, Absolute Neuts (auto) 7.7, Absolute Lymphs (auto) 1.22, Nucleated RBC % 0, PT 22.8 H, INR 2.0, Sodium 138, Potassium 4.5, Chloride 107, Carbon Dioxide 20.0 L, Anion Gap 11, BUN 51 H, Creatinine 2.46 H, Estim Creat Clear Calc 25.49, Est GFR (MDRD) Af Amer 33 L, Est GFR (MDRD) Non-Af 27 L, BUN/Creatinine Ratio 20.7 H, Glucose 177 H, Calcium 8.1 L, Total Bilirubin 1.50 H, AST 47 H, ALT 58, Alkaline Phosphatase 101, B-Natriuretic Peptide 2187.5 H, Total Protein 6.3 L, Albumin 3.1 L, Globulin 3.2, Albumin/Globulin Ratio 1.0, Lipase 49 08/08/23 21:14: POC Glucose 157 H 08/09/23 04:17: POC Glucose 157 H 08/09/23 05:32: WBC 11.3 H, RBC 3.98 L, Hgb 11.8 L, Hct 39.1 L, MCV 98.2 H, MCH 29.6, MCHC 30.2 L, RDW Std Deviation 61.6 H, RDW Coeff of Raphael 17.2 H, Plt Count 146 L, MPV 10.7, Sodium 138, Potassium 4.4, Chloride 104, Carbon Dioxide 25.0, Anion Gap 9, BUN 58 H, Creatinine 2.59 H, Estim Creat Clear Calc 25.02, Est GFR (MDRD) Af Amer 31 L, Est GFR (MDRD) Non-Af 26 L, BUN/Creatinine Ratio 22.4 H, Glucose 145 H, Calcium 8.1 L 08/09/23 06:55: POC Glucose 131 H Rhythm Strip Rhythm Strip: A-fib Rate: 126 Ectopy: None Cardiology Labs/Tests 08/08/23 15:48: WBC 9.8, RBC 4.22 L, Hgb 12.6 L, Hct 40.9, MCV 96.9 H, MCH 29.9, MCHC 30.8 L, Plt Count 160, MPV 10.8, Immature Gran % (Auto) 0.200, Neut % (Auto) 78.6 H, Lymph % (Auto) 12.4 L, [place] % (Auto) 7.9, Eos % (Auto) 0.6, Baso % (Auto) 0.3, Absolute Neuts (auto) 7.7, Nucleated RBC % 0, PT 22.8 H, INR 2.0, Sodium 138, Potassium 4.5, Chloride 107, Carbon Dioxide 20.0 L, Anion Gap 11, BUN 51 H, Creatinine 2.46 H, Est GFR (MDRD) Af Amer 33 L, Est GFR (MDRD) Non-Af 27 L, BUN/Creatinine Ratio 20.7 H, Glucose 177 H, Calcium 8.1 L, Total Bilirubin 1.50 H, B-Natriuretic Peptide 2187.5 H 08/09/23 05:32: WBC 11.3 H, RBC 3.98 L, Hgb 11.8 L, Hct 39.1 L, MCV 98.2 H, MCH 29.6, MCHC 30.2 L, Plt Count 146 L, MPV 10.7, Sodium 138, Potassium 4.4, Chloride 104, Carbon Dioxide 25.0, Anion Gap 9, BUN 58 H, Creatinine 2.59 H, Est GFR (MDRD) Af Amer 31 L, Est GFR (MDRD) Non-Af 26 L, BUN/Creatinine Ratio 22.4 H, Glucose 145 H, Calcium 8.1 L Rhythm: EKG: ECHO: Stress Test: Cardiac Cath: PCI: CT Surgery: Holter monitor: EPS: PPM: CXR: Chest CT Scan: Radiography Diagnostic Testing: Radiology Impression Chest X-Ray 08/08/23 16:01 IMPRESSION: Minimal infiltrate or atelectasis right lung base Electronically Signed: Filippo Guzman MD at 16:12 EDT ,
--- NOTE | 2023-08-09 08:34 | PN.HOSP_ITS ---
Reason for Visit Reason for Visit: Lower extremity swelling/debility Subjective Subjective Patient is a 73-year-old male who presented to the emergency department at [facility] on 08/08/2023 with lower extremity swelling and debility that had been worsening. His son was present at the time of admission. Patient reported on admission that he came to the emergency department on the day of presentation because his legs had become progressively more swollen over the past several days and he had hardly been able to get out of bed on his own at that time. He was living with his son and typically uses a walker to ambulate but had been unable to do so. He was hospitalized recently from 07/21/2023 to 07/23/2023 and evaluated by physical therapy at that time and it was determined that he could go home with home physical therapy. Patient reported that he was hardly able to get out of bed. His son noted that his functional status had definitely worsened over the past week prior to presentation and is legs have always been swollen but they were more swollen than typical. He was recently seen in the food tester office on 08/05/2023 and his home Lasix dose was increased from 40 mg twice daily to 60 mg twice daily. The patient reports that his urination has become more frequent with this increased dose and he feels like his dry. He had been drinking a significant amount of water trying to keep up with his urine output but reported his appetite was fair early poor. Upon presentation he was in A-fib with RVR having a heart rate in the 120s with oxygen saturations in the mid to high 90s on room air. His CBC was overall unremarkable. His INR was 2 but he is on apixaban at baseline. His BUN was 51 and his serum creatinine was 2.46 which is quite a bit above his baseline of 1.5-1.8. His BNP was elevated at 2187. He had a recent cardiac catheterization which was done on 07/19/2023 and demonstrated diffuse triple-vessel disease with previous stents and vessels that were patent and Parison from a cardiac catheterization done 1 year prior was unchanged. His most recent echocardiogram was on 06/29/2023 and demonstrated an EF of 40% with a hypokinetic apex, evidence of diastolic dysfunction, moderate aortic valve stenosis, mild mitral valve insufficiency, and mild to moderate aortic valve insufficiency. He was admitted to the PCU for telemetry monitoring and his home Lasix was held due to his elevated creatinine however I do suspect that he has cardiorenal syndrome. Cardiology evaluated the patient today and has placed him on aggressive diuresis with Lasix drip and have also started amiodarone 200 mg daily and decrease his apixaban to 2.5 mg twice daily which is appropriate in the setting of his current renal function. States his dad has not slept in a few days. Swelling has gotten worse. He also has significant neuropathy in his legs which is being made worse by the swelling. We will go ahead and try some gabapentin to see if this helps at low- dose due to renal function. We did discuss the need for better heart rate control as well as dietary restrictions with fluid and sodium and discussed the reason for sodium restriction as well as the need for current Lasix drip. Patient and son voiced understanding. Of note, they do report that he has a history of sleep apnea however he is unable to be compliant with mask due to intolerance. Objective Data Objective Data Vital Signs: Vital Signs Temp Pulse Resp BP Pulse Ox O2 Del Method O2 Flow Rate 97.6 F L 95 20 H 100/67 93 Nasal Cannula 2 08/09/23 06:24 08/09/23 06:24 08/09/23 06:24 08/09/23 06:24 08/09/23 07:10 08/09/23 07:10 08/09/23 07:10 FiO2 2 08/08/23 22:00 Oxygen Flow Rate (L/min) 2 Oxygen Delivery Method Nasal Cannula Weight: 133.4 kg Body Mass Index (BMI) 43.4 Intake & Output: Intake and Output for Last 24 Hours 08/07/23 08/08/23 08/09/23 23:59 23:59 23:59 Intake Total 100 / 580 600 / 600 Balance 100 / 580 600 / 600 Lab / Micro Data 08/09/23 05:32 08/09/23 05:32 Labs: Laboratory Results - last 24 hr 08/08/23 15:48: WBC 9.8, RBC 4.22 L, Hgb 12.6 L, Hct 40.9, MCV 96.9 H, MCH 29.9, MCHC 30.8 L, RDW Std Deviation 59.6 H, RDW Coeff of Raphael 17.2 H, Plt Count 160, M PV 10.8, Immature Gran % (Auto) 0.200, Neut % (Auto) 78.6 H, Lymph % (Auto) 12.4 L, [place] % (Auto) 7.9, Eos % (Auto) 0.6, Baso % (Auto) 0.3, Absolute Neuts (auto) 7.7, Absolute Lymphs (auto) 1.22, Nucleated RBC % 0, PT 22.8 H, INR 2.0, Sodium 138, Potassium 4.5, Chloride 107, Carbon Dioxide 20.0 L, Anion Gap 11, BUN 51 H, Creatinine 2.46 H, Estim Creat Clear Calc 25.49, Est GFR (MDRD) Af Amer 33 L, Est GFR (MDRD) Non-Af 27 L, BUN/Creatinine Ratio 20.7 H, Glucose 177 H, Calcium 8.1 L, Total Bilirubin 1.50 H, AST 47 H, ALT 58, Alkaline Phosphatase 101, B- Natriuretic Peptide 2187.5 H, Total Protein 6.3 L, Albumin 3.1 L, Globulin 3.2, Albumin/Globulin Ratio 1.0, Lipase 49 08/08/23 21:14: POC Glucose 157 H 08/09/23 04:17: POC Glucose 157 H 08/09/23 05:32: WBC 11.3 H, RBC 3.98 L, Hgb 11.8 L, Hct 39.1 L, MCV 98.2 H, MCH 29.6, MCHC 30.2 L, RDW Std Deviation 61.6 H, RDW Coeff of Raphael 17.2 H, Plt Count 146 L, MPV 10.7, Sodium 138, Potassium 4.4, Chloride 104, Carbon Dioxide 25.0, Anion Gap 9, BUN 58 H, Creatinine 2.59 H, Estim Creat Clear Calc 25.02, Est GFR (MDRD) Af Amer 31 L, Est GFR (MDRD) Non-Af 26 L, BUN/Creatinine Ratio 22.4 H, Glucose 145 H, Calcium 8.1 L 08/09/23 06:55: POC Glucose 131 H Radiography Diagnostic Testing: Radiology Impression Chest X-Ray 08/08/23 16:01 IMPRESSION: Minimal infiltrate or atelectasis right lung base Electronically Signed: Filippo Guzman MD at 16:12 EDT , Rhythm Strip Rhythm Strip: A-fib Rate: 126 Ectopy: None Physical Exam Const alert, oriented x3 and well nourished; Negative for no apparent distress, average body habitus or healthy appearing Constitutional Narrative: Morbidly obese, white male, sitting up in bed, son at bedside, patient appears somewhat uncomfortable due to bilateral leg pain with regards to his neuropathy, nursing at bedside, patient appears nontoxic however, appears chronically ill HEENT head/scalp atraumatic and moist oral mucous membranes HEENT Narrative: Mallampati 3, no thrush Head and Scalp: normocephalic Resp No normal respiratory effort, no retractions, no use of accessory muscles and No clear to auscultation bilaterally Resp Narrative: Bilateral basilar crackles up to about the mid third of the lung field, mild tachypnea Auscultation: crackles; Negative for rhonchi or wheezes Cardio S1 normal heart sound, S2 normal heart sound, no rub, no gallops and no clicks; Negative for regular rate, regular rhythm or no murmurs Cardio Narrative: Mild tachycardia with irregular irregular rhythm, 2 out of 6 systolic murmur loudest at right upper sternal border GI normal to inspection, nondistended, normoactive bowel sounds, soft to palpation and non-tender GI Narrative: Minimal pitting edema in the lateral abdominal wall with no fluid wave, abdomen is protuberant Extremity Extremity Narrative: Bilateral lower extremity swelling left is slightly more edematous than the right but both are pitting and at least 1+ in nature, pedal pulses are 2+ with good cap refill, legs are tender to palpation, no cyanosis or clubbing, edema extends up into mid thigh/upper thigh regions Neuro oriented x3, CN's II-XII intact bilaterally, moves all extremities and no focal motor deficits Neuro Narrative: Hypersensitivity bilateral lower extremities with light palpation Speech: speech normal Psych Psych Narrative: Affect is flat and mood is depressed Assessment & Plan Assessment/Plan (1) Anasarca: (2) Acute on chronic combined systolic (congestive) and diastolic (congestive) heart failure: (3) Paroxysmal atrial fibrillation with RVR: (4) Thrombocytopenia: (5) Hyperbilirubinemia: PLAN: Plan Acute on chronic combined systolic and diastolic heart failure -Recent cath shows stable coronary disease with ongoing medical management recommended (07/19/2023) -Most recent echo done on 06/29/2023 shows an EF of 40% with a hypokinetic apex, mild mitral valve insufficiency, moderate aortic stenosis, and mild to moderate aortic valve insufficiency with evidence of diastolic dysfunction -Lasix drip initiated -Bilateral lower extremity Alirio wraps -Monitor fluid intake to less than or equal to 1500 cc daily -Salt restricted diet -Daily weights -Cardiology is consulted-appreciate input -will help to control heart rate and amiodarone has been initiated Hypoxia -Patient is on 2 L -Documented history of JUAN ALBERTO but no CPAP ordered -We will discuss with patient further and if he is wearing CPAP at home will order -If he is not wearing CPAP at home would highly recommend outpatient sleep study be performed so he could have a retitration and be adequately treated Anasarca -Due to the above -Treatment as noted above -Lower extremity Dopplers are pending -Abdominal pending to assess for ascites Paroxysmal atrial fib with RVR -Continue home apixaban but at reduced dose 2.5 mg daily with current renal function -Continue home metoprolol -Continue amiodarone as initiated today by cardiology 200 mg daily Thrombocytopenia -This is new -Very mild -Continue to monitor Hyperbilirubinemia -Suspect related to passive congestion of the liver -We will monitor with time as this should improve with diuresis YADIRA on CKD stage IIIb -Baseline serum creatinine appears to run between 1.4 and 1.6 -Current serum creatinine is 2.59 -Suspect cardiorenal syndrome and anticipate improvement with diuresis as patient gets back on the Star[place] curve -We will check renal ultrasound -Check urine studies to calculate Fe urea -Nephro consultation pending as patient could use outpatient follow-up DM-2 -Fairly well controlled his recent A1c on 06/30/2023 was 7.1 -Hold home glipizide -SSI -Accu-Cheks as ordered -Diabetic/cardiac diet CAD/HPL -History of NSTEMI with multiple TAMIA to various arteries per cardiology documentation -Continue home atorvastatin -Continue home isosorbide mononitrate -Continue home wall -Continue home aspirin -Cardiac/carb controlled diet History of aortic stenosis -Medical therapy per cardiology with no changes History of gout -Continue home allopurinol History of tobacco abuse -It is documented history that he has COPD however I do not see PFTs -He is not on any inhaler therapy -As needed albuterol Morbid obesity -BMI is 43.4 -Recommend weight loss -Complicates treatment, prognosis, outcomes JUAN ALBERTO History patient has documented history of obstructive sleep apnea however is not compliant with the mask -Unable to tolerate -We will utilize oxygen as needed nocturnally to maintain sats greater than 88% DVT prophylaxis -Patient is fully anticoagulated with apixaban CODE STATUS -Full code is verified on admission Charges/Coding Visit Charges Inpatient E&M: 86789 Subs Hosp L2
--- NOTE | 2023-08-09 08:40 | US_ITS ---
INDICATION: YADIRA/CKD EXAMINATION: Ultrasound US Kidney(s) complete (eg, kidneys and bladder) TECHNIQUE: Ochoa scale and color doppler images were obtained of the kidneys. COMPARISON: Prior study dated: Abdominal ultrasound from today. FINDINGS: RIGHT KIDNEY: 11.5 x 6.6 x 6.1 cm. There is no hydronephrosis. No shadowing calculus, focal lesion or perinephric collection is demonstrated. Increased cortical echogenicity. LEFT KIDNEY: 10.2 x 4.9 x 6 cm. There is no hydronephrosis. No shadowing calculus, focal lesion or perinephric collection is demonstrated. URINARY BLADDER: No acute abnormality. A left ureteral jet is seen. The right jet is not seen. US/Kidney and Bladder IMPRESSION: Increased renal cortical echogenicity as can be seen with medical renal disease. No hydronephrosis. Electronically Signed: Jeffrey Villafana MD at 10:32 EDT ,
[2023-08-09] MEDS: Furosemide 100 MG/10 ML Vial 60 MG IV (10:04)
[2023-08-09] MEDS: 0.9% Saline Lock 10 ML Syringe IV (10:05)
[2023-08-09] MEDS: Pantoprazole Sodium 40 MG Tablet PO (10:08)
[2023-08-09] MEDS: Lidocaine 5% Patch 2 PATCH TOPICAL (10:08)
[2023-08-09] MEDS: Amiodarone 200 MG Tablet PO (10:08)
[2023-08-09] MEDS: APIXABAN 2.5 MG TABLET (WCH) PO ×2 (10:08→20:22)
[2023-08-09] MEDS: Miconazole Nitrate 43 GM Bottle 1 APPLIC TOPICAL ×2 (10:08→20:21)
[2023-08-09] MEDS: Aspirin E.C. 81 MG Tablet PO (10:08)
[2023-08-09] MEDS: Isosorbide Mononitrate 30 MG Tablet PO (11:31)
[2023-08-09] MEDS: Metoprolol Tartrate 100 MG Tablet PO ×2 (11:31→20:21)
[2023-08-09] MEDS: Gabapentin 100 MG Capsule PO ×2 (11:36→17:30)
[2023-08-09] MEDS: Insulin Lispro 100 UNIT/ML INSULN.PEN SC ×3 (11:40→20:22)
[2023-08-09 12:08] LABS: Bedside Glucose 204 mg/dL (74-106)
[2023-08-09 13:22] LABS: Urea Nitrogen, Urine 516 mg/dL (NO RANGE EST.); Urine Sodium 8 mmol/L (Not Establ.)
--- NOTE | 2023-08-09 14:33 | PCM.CONS.R ---
Documented by User: TIMUR Millan 08/09/23 14:54 Assessment & Plan Assessment/Plan (1) YADIRA (acute kidney injury): (2) CKD stage 3 secondary to diabetes: (3) CHF (congestive heart failure): PLAN: Plan This is a 73-year-old male with past medical history significant for coronary artery disease status post stenting, heart failure reduced EF, type 2 diabetes mellitus, hypertension, COPD, gout, JUAN ALBERTO, kidney stones, CKD stage III who presented to the emergency room with worsening lower extremity edema, shortness of breath admitted for further evaluation and treatment. Work-up in emergency room included chest x-ray which did not show any evidence of volume overload, BNP elevated to 2187, last echo on 06/28/2023 showed an EF of 40% with mild global LV hypokinesis, mild diastolic dysfunction, moderate aortic stenosis. He was given IV albumin. Lasix drip started today. Nephrology consulted as patient has history of CKD stage III secondary to diabetic nephropathy. Baseline creatinine around 1.5 to 1.7 mg/dL. Creatinine 2.46 yesterday, today his creatinine is 2.59. Potassium and acid-base acceptable. Patient is hypervolemic, started on Lasix drip. Acute kidney injury likely secondary to cardiorenal syndrome physiology. Abdominal ultrasound showed small volume ascites; renal ultrasound no hydronephrosis. His weight is up at least 10kg from his last hospitalization which was about 3 weeks ago. Patient's blood pressures were low on admission but have improved and stabilized. At this time there is no acute indication for PHARMACY TECH. We will monitor renal function closely while on IV diuresis. Recommend daily standing weights. Continue fluid restriction. Reviewed with patient today importance of avoiding NSAIDs. Further orders forthcoming as hospitalization evolves, thank you for allowing us to participate in the care of Mr. Dee. HPI Consult Data Date of Consult: 08/09/23 HPI Narrative HPI Narrative: LUIS DEE, is a 73 M with past medical history significant for coronary artery disease status post stenting, heart failure reduced UF, type 2 diabetes mellitus, hypertension, COPD, gout, JUAN ALBERTO, kidney stones, CKD stage III who presented to the emergency room with complaints of shortness of breath and worsening lower extremity edema. Patient was admitted for decompensated heart failure. He is on Lasix drip. Nephrology consulted as patient has history of CKD. Patient is sitting in chair. Denies any recent nausea, vomiting or diarrhea. Patient reports his Lasix dose was recently increased from 40 mg twice daily to 60 mg twice daily. Patient denies missing any diuretics. Patient does report that he feels he has gained at least 20 pounds over the last few weeks to month. Patient does report because of arthritic pain has been taking ibuprofen as needed. Patient denies any recent dysuria or hematuria [facility] Medical History (Updated 08/09/23 @ 14:44 by TIMUR Millan) A-fib Abdominal pain Abnormal stress test (07/2022) Acute exacerbation of CHF (congestive heart failure) Ambulates with cane Atherosclerosis of coronary artery without angina pectoris Bilateral lower extremity edema Cardiology follow-up encounter Chest pain Chronic anemia Chronic HFrEF (heart failure with reduced ejection fraction) Chronic kidney disease Chronic kidney disease (CKD) COPD (chronic obstructive pulmonary disease) Coronary artery disease Dermatitis Diastolic dysfunction Elevated liver enzymes Elevated troponin Essential (primary) hypertension Fatty liver Former smoker Gastric ulcer Generalized muscle weakness GI (gastrointestinal bleed) Gout Heart murmur History of CHF (congestive heart failure) History of heart attack History of non-ST elevation myocardial infarction (NSTEMI) (05/05/21) History of non-ST elevation myocardial infarction (NSTEMI) History of stress test Hyperlipidemia Ischemic cardiomyopathy Kidney stones Low iron Non-rheumatic aortic stenosis NSTEMI, initial episode of care Obesity Obstructive sleep apnea Orthopnea Osteoarthritis Paroxysmal atrial fibrillation Secondary pulmonary arterial hypertension Shortness of breath on exertion Type 2 diabetes mellitus Home Medications aspirin 81 mg tablet,delayed release (Adult Aspirin Regimen) 81 mg PO DAILY heart health 04/14/18 [History Last Taken 08/08/23] multivitamin (Daily Multi-Vitamin tablet) 1 tab PO DAILY vitamin 01/25/19 [History Last Taken 08/08/23] allopurinol 100 mg tablet 200 mg PO DAILYCM GOUT 08/03/22 [History Last Taken 08/08/23] pantoprazole 40 mg tablet,delayed release 40 mg PO DAILY ppi #90 tabs 08/11/22 [Rx Last Taken 08/08/23] glipizide 5 mg tablet 5 mg PO BID diabetes 09/15/22 [History Last Taken 08/08/23] nitroglycerin 0.4 mg sublingual tablet 0.4 mg sublingual Q5-15M PRN chest pain #25 tabs 06/09/23 [Rx Last Taken Unknown] atorvastatin 80 mg tablet 80 mg PO QHS anticholesterol 06/29/23 [History Last Taken 08/07/23] isosorbide mononitrate 30 mg tablet,extended release 24 hr 30 mg PO DAILY see doctor #30 tabs 07/19/23 [Rx Last Taken 08/08/23] metoprolol tartrate 100 mg tablet 100 mg PO BID blood pressure #180 tabs 07/26/23 [Rx Last Taken 08/08/23] apixaban 5 mg tablet (Eliquis) 5 mg PO BID blood thinner 08/05/23 [History Last Taken 08/08/23] furosemide 40 mg tablet 60 mg PO BID diuretic 08/05/23 [History Last Taken 08/08/23] melatonin 10 mg capsule 10 mg PO QHS PRN sleep 08/08/23 [History Last Taken 08/08/23] Allergy/AdvReac Type Severity Reaction Status Date / Time metformin AdvReac Elevated Verified 08/08/23 15:34 LDH and anion gap Family History Mother , Age 80 Diabetes Hypertension Father , Age 55, coma Diabetes Hypertension Sister Hypertension Brother Diabetes Hypertension Cancer, Onset Age: 50 prostate cancer CAD (coronary artery disease) Surgical History (Updated 08/09/23 @ 07:[address] Sabas Bae MD) History of appendectomy History of cardiac catheterization History of coronary artery stent placement (01/24/20) History of esophagogastroduodenoscopy (EGD) History of herniorrhaphy History of left heart catheterization (07/13/22) History of tonsillectomy History of total knee replacement (TKR) Status post cholecystectomy Social History household members: children Smoking Status: Former smoker quit date: 01/31/11 alcohol intake: current alcohol intake frequency: holidays/special occasions only substance use type: does not use caffeine: Yes Type: coffee ROS ROS Narrative As in HPI past medical history Physical Exam Narrative Alert and orient x3, no apparent distress S1, S2, RRR Diminished breath sounds posterior bases. Abdomen soft, rounded, pitting edema across lower abdominal wall 2-3+ pitting edema feet/legs and thighs Lab / Micro Data 08/10/23 05:42 08/10/23 05:42 Labs: Laboratory Results - last 24 hr 08/08/23 15:48: WBC 9.8, RBC 4.22 L, Hgb 12.6 L, Hct 40.9, MCV 96.9 H, MCH 29.9, MCHC 30.8 L, RDW Std Deviation 59.6 H, RDW Coeff of Raphael 17.2 H, Plt Count 160, MPV 10.8, Immature Gran % (Auto) 0.200, Neut % (Auto) 78.6 H, Lymph % (Auto) 12.4 L, [place] % (Auto) 7.9, Eos % (Auto) 0.6, Baso % (Auto) 0.3, Absolute Neuts (auto) 7.7, Absolute Lymphs (auto) 1.22, Nucleated RBC % 0, PT 22.8 H, INR 2.0, Sodium 138, Potassium 4.5, Chloride 107, Carbon Dioxide 20.0 L, Anion Gap 11, BUN 51 H, Creatinine 2.46 H, Estim Creat Clear Calc 25.49, Est GFR (MDRD) Af Amer 33 L, Est GFR (MDRD) Non-Af 27 L, BUN/Creatinine Ratio 20.7 H, Glucose 177 H, Calcium 8.1 L, Total Bilirubin 1.50 H, AST 47 H, ALT 58, Alkaline Phosphatase 101, B-Natriuretic Peptide 2187.5 H, Total Protein 6.3 L, Albumin 3.1 L, Globulin 3.2, Albumin/Globulin Ratio 1.0, Lipase 49 08/08/23 21:14: POC Glucose 157 H 08/09/23 04:17: POC Glucose 157 H 08/09/23 05:32: WBC 11.3 H, RBC 3.98 L, Hgb 11.8 L, Hct 39.1 L, MCV 98.2 H, MCH 29.6, MCHC 30.2 L, RDW Std Deviation 61.6 H, RDW Coeff of Raphael 17.2 H, Plt Count 146 L, MPV 10.7, Sodium 138, Potassium 4.4, Chloride 104, Carbon Dioxide 25.0, Anion Gap 9, BUN 58 H, Creatinine 2.59 H, Estim Creat Clear Calc 25.02, Est GFR (MDRD) Af Amer 31 L, Est GFR (MDRD) Non-Af 26 L, BUN/Creatinine Ratio 22.4 H, Glucose 145 H, Calcium 8.1 L 08/09/23 06:55: POC Glucose 131 H 08/09/23 11:36: POC Glucose 204 H 08/09/23 12:53: Ur Random Sodium 8, Urine Creatinine 144.00, Urine Urea Nitrogen 516 Rhythm Strip Rhythm Strip: A-fib Rate: 126 Ectopy: None Radiology Impression Chest X-Ray 08/08/23 16:01 IMPRESSION: Minimal infiltrate or atelectasis right lung base Electronically Signed: Filippo Guzman MD at 16:12 EDT , Abdomen Ultrasound 08/09/23 07:00 IMPRESSION: Small volume ascites. Hepatic steatosis. Electronically Signed: Jeffrey Villafana MD at 10:20 EDT , Renal Ultrasound 08/09/23 08:40 IMPRESSION: Increased renal cortical echogenicity as can be seen with medical renal disease. No hydronephrosis. Electronically Signed: Jeffrey Villafana MD at 10:32 EDT , Documented by User: Dr. Emeterio Hutchinson MD 08/10/23 09:26 Assessment & Plan Assessment/Plan (1) YADIRA (acute kidney injury): (2) CKD stage 3 secondary to diabetes: (3) CHF (congestive heart failure): PLAN: Plan This is a 73-year-old male with past medical history significant for coronary artery disease status post stenting, heart failure reduced EF, type 2 diabetes mellitus, hypertension, COPD, gout, JUAN ALBERTO, kidney stones, CKD stage III who presented to the emergency room with worsening lower extremity edema, shortness of breath admitted for further evaluation and treatment. Work-up in emergency room included chest x-ray which did not show any evidence of volume overload, BNP elevated to 2187, last echo on 06/28/2023 showed an EF of 40% with mild global LV hypokinesis, mild diastolic dysfunction, moderate aortic stenosis. He was given IV albumin. Lasix drip started today. Nephrology consulted as patient has history of CKD stage III secondary to diabetic nephropathy. Baseline creatinine around 1.5 to 1.7 mg/dL. Creatinine 2.46 yesterday, today his creatinine is 2.59. Potassium and acid-base acceptable. Patient is hypervolemic, started on Lasix drip. Acute kidney injury likely secondary to cardiorenal syndrome physiology. Abdominal ultrasound showed small volume ascites; renal ultrasound no hydronephrosis. His weight is up at least 10kg from his last hospitalization which was about 3 weeks ago. Patient's blood pressures were low on admission but have improved and stabilized. At this time there is no acute indication for PHARMACY TECH. We will monitor renal function closely while on IV diuresis. Recommend daily standing weights. Continue fluid restriction. Reviewed with patient today importance of avoiding NSAIDs. Further orders forthcoming as hospitalization evolves, thank you for allowing us to participate in the care of Mr. Dee. 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 agree with above. HPI Consult Data Date of Consult: 08/10/23 [facility] Medical History (Updated 08/09/23 @ 14:44 by TIMUR Millan) A-fib Abdominal pain Abnormal stress test (07/2022) Acute exacerbation of CHF (congestive heart failure) Ambulates with cane Atherosclerosis of coronary artery without angina pectoris Bilateral lower extremity edema Cardiology follow-up encounter Chest pain Chronic anemia Chronic HFrEF (heart failure with reduced ejection fraction) Chronic kidney disease Chronic kidney disease (CKD) COPD (chronic obstructive pulmonary disease) Coronary artery disease Dermatitis Diastolic dysfunction Elevated liver enzymes Elevated troponin Essential (primary) hypertension Fatty liver Former smoker Gastric ulcer Generalized muscle weakness GI (gastrointestinal bleed) Gout Heart murmur History of CHF (congestive heart failure) History of heart attack History of non-ST elevation myocardial infarction (NSTEMI) (05/05/21) History of non-ST elevation myocardial infarction (NSTEMI) History of stress test Hyperlipidemia Ischemic cardiomyopathy Kidney stones Low iron Non-rheumatic aortic stenosis NSTEMI, initial episode of care Obesity Obstructive sleep apnea Orthopnea Osteoarthritis Paroxysmal atrial fibrillation Secondary pulmonary arterial hypertension Shortness of breath on exertion Type 2 diabetes mellitus Home Medications aspirin 81 mg tablet,delayed release (Adult Aspirin Regimen) 81 mg PO DAILY heart health 04/14/18 [History Last Taken 08/08/23] multivitamin (Daily Multi-Vitamin tablet) 1 tab PO DAILY vitamin 01/25/19 [History Last Taken 08/08/23] allopurinol 100 mg tablet 200 mg PO DAILYCM GOUT 08/03/22 [History Last Taken 08/08/23] pantoprazole 40 mg tablet,delayed release 40 mg PO DAILY ppi #90 tabs 08/11/22 [Rx Last Taken 08/08/23] glipizide 5 mg tablet 5 mg PO BID diabetes 09/15/22 [History Last Taken 08/08/23] nitroglycerin 0.4 mg sublingual tablet 0.4 mg sublingual Q5-15M PRN chest pain #25 tabs 06/09/23 [Rx Last Taken Unknown] atorvastatin 80 mg tablet 80 mg PO QHS anticholesterol 06/29/23 [History Last Taken 08/07/23] isosorbide mononitrate 30 mg tablet,extended release 24 hr 30 mg PO DAILY see doctor #30 tabs 07/19/23 [Rx Last Taken 08/08/23] metoprolol tartrate 100 mg tablet 100 mg PO BID blood pressure #180 tabs 07/26/23 [Rx Last Taken 08/08/23] apixaban 5 mg tablet (Eliquis) 5 mg PO BID blood thinner 08/05/23 [History Last Taken 08/08/23] furosemide 40 mg tablet 60 mg PO BID diuretic 08/05/23 [History Last Taken 08/08/23] melatonin 10 mg capsule 10 mg PO QHS PRN sleep 08/08/23 [History Last Taken 08/08/23] Allergy/AdvReac Type Severity Reaction Status Date / Time metformin AdvReac Elevated Verified 08/08/23 15:34 LDH and anion gap Family History Mother , Age 80 Diabetes Hypertension Father , Age 55, coma Diabetes Hypertension Sister Hypertension Brother Diabetes Hypertension Cancer, Onset Age: 50 prostate cancer CAD (coronary artery disease) Surgical History (Updated 08/09/23 @ 07:[address] Sabas Bae MD) History of appendectomy History of cardiac catheterization History of coronary artery stent placement (01/24/20) History of esophagogastroduodenoscopy (EGD) History of herniorrhaphy History of left heart catheterization (07/13/22) History of tonsillectomy History of total knee replacement (TKR) Status post cholecystectomy Social History household members: children Smoking Status: Former smoker quit date: 01/31/11 alcohol intake: current alcohol intake frequency: holidays/special occasions only substance use type: does not use caffeine: Yes Type: coffee Lab / Micro Data 08/10/23 05:42 08/10/23 05:42
--- NOTE | 2023-08-09 15:26 | CASEMGMT ---
BAILEE CALIX chart review: Patient was admitted -07/19/23 for NSTEMI. See BAILEE CALIX assessment from 06/29/23. Patient was discharged to home with follow-up plans in place. Patient returned 07/21-07/23/23 in observation for debility, N/V, and dehydration. Patient was discharge to home with outpatient therapy. Patient returned 08/08/23 for weakness and swelling to [facility]. Patient was admitted for debility, YADIRA on CKD, and CHF. Patient is currently on Lasix gtt and 2lpm of oxygen. BAILEE CALIX in to discuss discharge needs and readmission with patient. Patient states that he attended follow-up appt with PCP on 07/28/23. Patient states he attended [facility] appt on 08/05 and they had increased his lasix to 60mg BID. Patient states he was taking his medications as prescribed but not at the same time everyday. BAILEE CALIX discussed with patient if he weighs himself daily. Patient states he weighs himself but not at the same time everyday. BAILEE CALIX explained importance of weighing self at the same time everyday. Patient states he was attending outpatient therapy. Patient wishes to return home with resumption of outpatient therapy. Will monitor progress with therapy and will monitor for home oxygen at discharge.
--- NOTE | 2023-08-09 15:46 | CHAPLAIN ---
Type of Pastoral Visit _x__ Initial Visit ___ Follow-up Visit ___ On-call Visit ___ General Patient Visit ___ Spiritual Assessment ___ Family Conference ___ Bereavement ___ Rapid Response ___ Code Blue ___ Other (describe below) Pastoral Care Referral From __x_ Patient ___ Family ___ Nurse ___ Physician ___ Whiskey Proof Reader ___ Package Checker ___ Other (describe below) Sacrament/Intervention _x__ Active listening ___ Anointing ___ Caodaism ___ Bereavement ___ Communion ___ Genia exploration ___ _x__ Life review _x__ Prayer ___ Reconciliation ___ Sacrament of Sick _x__ Supportive presence ___ Wedding ___ Other (describe below) Pastoral Comments this patient has been seen before in previous admissions and he gives an update on his health and needs; pt is always talkative and gives insights into his thoughts about life, health, and genia; a visitor was in the room also at this time; pt responds to questions about needs with prayers and help in understanding how to use this in my life;
[2023-08-09 17:52] LABS: Bedside Glucose 156 mg/dL (74-106)
[2023-08-09] MEDS: Atorvastatin Calcium 80 MG Tablet PO (20:22)
[2023-08-09 20:53] LABS: Bedside Glucose 223 mg/dL (74-106)
[2023-08-10] VITALS (9 sets, daily range): BP systolic 92–131; BP diastolic 59–92; PULSE 86–115; RESP 16–18; TEMP 36.2–36.7; O2SAT 96–100; BMI 43.4
[2023-08-10] MEDS: Acetaminophen 325 MG Tablet 650 MG PO ×2 (01:51→08:01)
[2023-08-10] MEDS: Furosemide 500 MG in Empty Viaflex 50 mL 1 EACH CONT INF (04:50)
[2023-08-10 06:41] LABS: Absolute Lymphocyte Count 0.74 X10^3/uL (0.83-4.51); Basophil# 0.01 X10^3/uL; Basophil% 0.1 % (0-1); Eosinophil# 0.06 X10^3/uL; Eosinophils% 0.8 % (0-5); Hematocrit 36.4 % (40-54); Hemoglobin 11.1 g/dL (13.0-16.5); Lymphocyte # 0.74 X10^3/ul (0.83-4.51); Lymphocyte % 9.9 % (19-41); Mean Corp Hgb Conc 30.5 g/dL (32-36); Mean Corpuscular Hgb 29.7 pg (27.0-32.0); Mean Corpuscular Volume 97.3 fL (80-94); Mean Platelet Vol. 10.7 fl (6.2-12.0); Monocyte# 0.57 X10^3/uL; Monocyte% 7.7 % (0-10); NRBC Flagged by Analyzer 0 % (0-5); Neutrophil # 6.04 X10^3/uL (2.7-7.7); Neutrophil % 81.2 % (47-70); Platelet Count 116 K/mm3 (150-450); RBC Distribution Width CV 17.2 % (11.6-14.6); Red Blood Count 3.74 M/mm3 (4.6-6.2); White Blood Count 7.4 K/mm3 (4.4-11.0)
[2023-08-10 06:56] LABS: Bedside Glucose 138 mg/dL (74-106)
[2023-08-10 07:16] LABS: AST(SGOT) 19 U/L (15-37); Alanine Aminotransfer ALT/SGPT 48 U/L (16-61); Alkaline Phosphatase 86 U/L (45-117); Anion Gap 6 (5-15); BUN 61 mg/dL (7-18); BUN/Creat Ratio 22.3 RATIO (10-20); Calcium,Total 8.4 mg/dL (8.5-10.1); Chloride 103 mmol/L (98-107); Creatinine, Serum 2.73 mg/dL (0.70-1.30); EST Glomerular Filtration Rate 24 mL/min (>60); Est Glom Filt Rate - Afr Amer 29 mL/min (>60); Estimated Creatinine Clearance 23.74 ml/min; Globulin 3.1 g/dL (2.2-4.2); Glucose 113 mg/dL (74-106); Magnesium 2.2 mg/dL (1.6-2.6); Potassium 4.3 mmol/L (3.5-5.1); Protein, Total 6.1 g/dL (6.4-8.2); Sodium Level 136 mmol/L (136-145)
[2023-08-10 07:19] LABS: Phosphorus 3.7 mg/dL (2.5-4.9)
[2023-08-10] MEDS: Aspirin E.C. 81 MG Tablet PO (08:01)
[2023-08-10] MEDS: Gabapentin 100 MG Capsule PO ×3 (08:01→16:22)
[2023-08-10] MEDS: 0.9% Saline Lock 10 ML Syringe IV ×2 (08:03→10:39)
[2023-08-10] MEDS: Allopurinol 100 MG Tablet 50 MG PO (09:12)
[2023-08-10] MEDS: Isosorbide Mononitrate 30 MG Tablet PO (09:12)
[2023-08-10] MEDS: APIXABAN 2.5 MG TABLET (WCH) PO ×2 (09:13→21:33)
[2023-08-10] MEDS: Miconazole Nitrate 43 GM Bottle 1 APPLIC TOPICAL ×2 (09:13→21:35)
[2023-08-10] MEDS: Metoprolol Tartrate 100 MG Tablet PO ×2 (09:13→21:33)
[2023-08-10] MEDS: Pantoprazole Sodium 40 MG Tablet PO (09:13)
[2023-08-10] MEDS: Amiodarone 200 MG Tablet PO (09:13)
[2023-08-10] MEDS: 0.9% Normal Saline (1000mL) 1,000 ML 150 ML IV (10:40)
[2023-08-10] MEDS: Lidocaine 5% Patch 2 PATCH TOPICAL (11:16)
[2023-08-10] MEDS: Insulin Lispro 100 UNIT/ML INSULN.PEN SC ×2 (11:40→21:32)
[2023-08-10 11:59] LABS: Bedside Glucose 150 mg/dL (74-106)
[2023-08-10] MEDS: Ceftriaxone 2 GM in 0.9% Normal Saline (50mL MB+) 50 ML IV (12:43)
[2023-08-10 13:09] LABS: Erythrocyte Sedimentation Rate 14 mm/hr (0-20)
--- NOTE | 2023-08-10 14:28 | PCM.PN.HOSP ---
Reason for Visit Reason for Visit: Lower extremity swelling/debility Subjective Subjective Patient has not diuresed well with the Lasix drip and this has been discontinued. His urine studies look like he is prerenal and I suspect may be a little bit dry. I will challenge him with 1 L of fluids at 150 cc/h and reassess his renal function following. He states that his left lower extremity is more swollen and feels more painful. On exam it is more swollen and shiny and also appears to be more erythematous and I suspect there may be some cellulitic infection. We will start some antibiotics after we obtain cultures. He does have a small wound on his toe after his son cut his toenails which could be a nidus for infection but he does have bilateral lower extremity pitting edema clear up into his thighs it is just his left side is markedly worse than his right. Patient does state his neuropathy feels better with the initiation of gabapentin today and he does appear more comfortable. Objective Data Objective Data Vital Signs: Vital Signs Temp Pulse Resp BP Pulse Ox O2 Del Method O2 Flow Rate 97.2 F L 106 H 18 114/92 H 98 Nasal Cannula 2 08/10/23 09:05 08/10/23 09:13 08/10/23 09:05 08/10/23 09:05 08/10/23 09:05 08/10/23 14:11 08/10/23 14:11 FiO2 2 08/08/23 22:00 Oxygen Flow Rate (L/min) 2 Oxygen Delivery Method Nasal Cannula Weight: 133.3 kg Body Mass Index (BMI) 43.4 Intake & Output: Intake and Output for Last 24 Hours 08/08/23 08/09/23 08/10/23 23:59 23:59 23:59 Intake Total 100 / 580 1690 / 1690 783.04 / 783.04 Output Total 480 / 480 400 / 400 Balance 100 / 580 1210 / 1210 383.04 / 383.04 Lab / Micro Data 08/10/23 05:42 08/10/23 05:42 Labs: Laboratory Results - last 24 hr 08/09/23 17:21: POC Glucose 156 H 08/09/23 20:21: POC Glucose 223 H 08/10/23 05:42: WBC 7.4, RBC 3.74 L, Hgb 11.1 L, Hct 36.4 L, MCV 97.3 H, MCH 29.7, MCHC 30.5 L, RDW Std Deviation 61.0 H, RDW Coeff of Raphael 17.2 H, Plt Count 116 L, MPV 10.7, Immature Gran % (Auto) 0.300, Neut % (Auto) 81.2 H, Lymph % (Auto) 9.9 L, Overton % (Auto) 7.7, Eos % (Auto) 0.8, Baso % (Auto) 0.1, Absolute Neuts (auto) 6.0, Absolute Lymphs (auto) 0.74 L, Nucleated RBC % 0, ESR 14, Sodium 136, Potassium 4.3, Chloride 103, Carbon Dioxide 27.0, Anion Gap 6, BUN 61 H, Creatinine 2.73 H, Estim Creat Clear Calc 23.74, Est GFR (MDRD) Af Amer 29 L, Est GFR (MDRD) Non-Af 24 L, BUN/Creatinine Ratio 22.3 H, Glucose 113 H, Calcium 8.4 L, Phosphorus 3.7, Magnesium 2.2, Total Bilirubin 1.70 H, AST 19, ALT 48, Alkaline Phosphatase 86, C-React Prot Ext Range 186.00 H, Total Protein 6.1 L, Albumin 3.0 L, Globulin 3.1, Albumin/Globulin Ratio 1.0 08/10/23 06:30: POC Glucose 138 H 08/10/23 11:38: POC Glucose 150 H Radiography Diagnostic Testing: Radiology Impression Venous Doppler Study 08/08/23 18:23 Interpretation Summary Deep veins of the bilateral lower extremities are patent and compressible segmentally. There is no evidence of bilateral lower extremity deep vein thrombosis. The bilateral great saphenous veins appear patent and compressible segmentally. Ordering Physician: Junito Yepez Referring Physician: Boston Figueroa Performed By: Coreen Sims RVT Rhythm Strip Rhythm Strip: A-fib Rate: 126 Ectopy: None Physical Exam Const alert, oriented x3 and well nourished; Negative for no apparent distress, average body habitus or healthy appearing Constitutional Narrative: Morbidly obese, white male, sitting up in bed, nursing is at bedside, patient appears more comfortable today with regards to his neuropathy, patient appears nontoxic however, appears chronically ill General Appearance: cooperative and comfortable HEENT normocephalic, head/scalp atraumatic, hearing grossly normal bilaterally and moist oral mucous membranes Eyes PERRL, EOMs intact bilaterally and conjunctivae normal Neck no lymphadenopathy and supple Neck Narrative: Trachea midline, no thyroid enlargement Resp normal respiratory effort, normal air movement, no retractions, no use of accessory muscles and clear to auscultation bilaterally Resp Narrative: Diffusely diminished but clear Auscultation: Negative for crackles, rhonchi or wheezes Cardio regular rate, S1 normal heart sound, S2 normal heart sound, no rub, no gallops, no clicks and peripheral pulses 2+ throughout; Negative for regular rhythm or no murmurs Cardio Narrative: irregular irregular rhythm, 2 out of 6 systolic murmur loudest at right upper sternal border GI normal to inspection, nondistended, normoactive bowel sounds, soft to palpation and non-tender GI Narrative: Minimal pitting edema in the lateral abdominal wall with no fluid wave, abdomen is protuberant Extremity Extremity Narrative: Bilateral lower extremity edema with the left being significantly more edematous now than the right, the right lower extremity does have some pitting up into the thigh but he has marked pitting in the left lower extremity up into the thigh and buttock area, left lower extremity is now erythematous anterior up to the knee and posterior up into the mid thigh and this appears more consistent with a cellulitic type infection, no cyanosis or clubbing Skin no rashes or lesions noted, no jaundice, no petechiae and no mottling Skin Narrative: Small wound at the tip of his third digit on the left lower extremity but does not appear to be infected but would be nidus for infection of the lower extremity, left lower extremity is shiny and tender to palpation Neuro oriented x3, moves all extremities and no focal motor deficits Neuro Narrative: Less hypersensitivity in the left lower extremity today Speech: speech normal Psych mental status grossly normal and affect normal Psych Narrative: Affect is less flat and mood seems less depressed today Assessment & Plan Assessment/Plan (1) Anasarca: (2) Acute on chronic combined systolic (congestive) and diastolic (congestive) heart failure: (3) Paroxysmal atrial fibrillation with RVR: (4) Thrombocytopenia: (5) Hyperbilirubinemia: (6) Cellulitis of left lower extremity: PLAN: Plan Acute on chronic combined systolic and diastolic heart failure -Recent cath shows stable coronary disease with ongoing medical management recommended (07/19/2023) -Most recent echo done on 06/29/2023 shows an EF of 40% with a hypokinetic apex, mild mitral valve insufficiency, moderate aortic stenosis, and mild to moderate aortic valve insufficiency with evidence of diastolic dysfunction -Patient did not diurese well -Weight is significantly up from his admission here in July -Continue fluid restriction -Continue salt restricted diet -Daily weights--> no significant change in weight despite Lasix drip -Cardiology is consulted-appreciate input Left lower extremity cellulitis -Left lower extremity is much more erythematous today and swelling has been persistent when compared to right lower extremity -ESR is normal but CRP is markedly elevated -Blood cultures are pending -We will start Zosyn and check MRSA PCR -If MRSA PCR is positive we will add vancomycin -Repeat CRP in 48 hours -Patient does have small wound on the tip of his left toe from his son cutting his toenails that could be the nidus for infection -Continue to elevate left lower extremity when able YADIRA on CKD stage IIIb -Baseline serum creatinine appears to run between 1.4 and 1.6 -Current serum creatinine is up to 2.73 from 2. 5 9 yesterday -Fery is markedly prerenal and urine sodium is 8 despite Lasix drip use -Initially thought this was prerenal due to cardiorenal syndrome however urine output has been poor despite Lasix drip and therefore discontinued and renal function is worsening -We will challenge with IV fluids -Check stat UA to assess for nephrotic/nephritic syndrome with significant lower extremity edema -Repeat BMP later this afternoon after infusion of IV fluids -Check C3/C4/CH 50 -May need to further assess LEILA and ANCA's depending on UA -Renal ultrasound only shows some medical renal disease and is not explanatory worsening renal function at this time -Nephro following-appreciate input Hypoxia -Patient is on 2 L -Documented history of JUAN ALBERTO but no CPAP ordered -We will discuss with patient further and if he is wearing CPAP at home will order -If he is not wearing CPAP at home would highly recommend outpatient sleep study be performed so he could have a retitration and be adequately treated Anasarca -We initially felt that this was likely due to heart failure however he has been on diuretics and not diuresing well with worsening renal function -Check UA for significant protein -Serum protein is not all that low at 3.1 -Lower extremity Dopplers were negative for any DVT -Work-up for nephrotic/nephritic syndrome is pending Paroxysmal atrial fib with RVR -Continue home apixaban but at reduced dose 2.5 mg daily with current renal function -Continue home metoprolol -Continue amiodarone 200 mg daily -Heart rate control is better Thrombocytopenia -This is new -Very mild but has trended down -Coags are abnormal due to chronic use of anticoagulation with apixaban -Continue to monitor Hyperbilirubinemia -Etiology is unclear -Stable DM-2 -Fairly well controlled his recent A1c on 06/30/2023 was 7.1 -Hold home glipizide -SSI -Accu-Cheks as ordered -Diabetic/cardiac diet CAD/HPL -History of NSTEMI with multiple TAMIA to various arteries per cardiology documentation -Continue home atorvastatin -Continue home isosorbide mononitrate -Continue home wall -Continue home aspirin -Cardiac/carb controlled diet History of aortic stenosis -Medical therapy per cardiology with no changes History of gout -Continue home allopurinol History of tobacco abuse -It is documented history that he has COPD however I do not see PFTs -He is not on any inhaler therapy -As needed albuterol Morbid obesity -BMI is 43.4 -Recommend weight loss -Complicates treatment, prognosis, outcomes JUAN ALBERTO History patient has documented history of obstructive sleep apnea however is not compliant with the mask -Unable to tolerate -We will utilize oxygen as needed nocturnally to maintain sats greater than 88% DVT prophylaxis -Patient is fully anticoagulated with apixaban CODE STATUS -Full code is verified on admission Charges/Coding Visit Charges Inpatient E&M: 36316 [facility] L3
[2023-08-10 15:12] LABS: Anion Gap 7 (5-15); BUN 62 mg/dL (7-18); Calcium,Total 8.3 mg/dL (8.5-10.1); Chloride 104 mmol/L (98-107); Creatinine, Serum 2.69 mg/dL (0.70-1.30); EST Glomerular Filtration Rate 25 mL/min (>60); Est Glom Filt Rate - Afr Amer 30 mL/min (>60); Estimated Creatinine Clearance 24.09 ml/min; Glucose 142 mg/dL (74-106); Potassium 3.8 mmol/L (3.5-5.1); Sodium Level 137 mmol/L (136-145); Thyroid Stim Hormone (TSH) 2.07 uIU/mL (0.358-3.74)
[2023-08-10 16:20] LABS: M R Staph aureus DNA By PCR Negative (Negative); Probe Check PASS; Specimen Processing Control PASS
[2023-08-10] MEDS: Piperacil/Tazobactam 3.375 GM in 0.9% Normal Saline (50mL MB+) 50 ML IV ×2 (16:32→21:40)
[2023-08-10 16:44] LABS: Bedside Glucose 139 mg/dL (74-106)
[2023-08-10] MEDS: Lactated Ringers 1,000 ML 100 ML IV (17:40)
[2023-08-10 18:26] LABS: M R Staph aureus DNA By PCR Negative (Negative); Probe Check PASS; Specimen Processing Control PASS; Staph aureus DNA By PCR NEGATIVE (Negative)
[2023-08-10 19:27] LABS: Bacteria 0 SEEN /hpf (None Seen); Color, Urine Yellow (Yellow); Glucose, Dipstick Normal (Normal); Ketone-Dipstick Negative (Negative); Leukocyte Esterase-Dipstick Negative /ul (Negative); Mucous, Urine 0 SEEN /hpf (<or=2+); Nitrite-Dipstick Negative (Negative); Occult Blood-Urine Negative /ul (Negative); Protein-Dipstick 30 mg/dl (Negative); Red Blood Cells-Urine 0 SEEN /hpf (0-5); Specific Gravity, Urine 1.015 (1.002-1.030); Squamous Epithelial Cells - UA 0 SEEN /hpf (0-5); Urine Bilirubin Dipstick Negative (Negative); Urine Clarity Clear (Clear); Urine Urobilinogen 1 mg/dl (Normal); White Blood Cells 0 SEEN /hpf (0-5)
[2023-08-10] MEDS: Atorvastatin Calcium 80 MG Tablet PO (21:33)
[2023-08-10] MEDS: Senna/Docusate Sodium 1 Tablet 2 TABLET PO (22:58)
[2023-08-10 23:31] LABS: Bedside Glucose 164 mg/dL (74-106)
[2023-08-11] VITALS (10 sets, daily range): BP systolic 106–115; BP diastolic 64–98; PULSE 84–128; RESP 15–18; TEMP 36.4–36.9; O2SAT 81–99; BMI 43.4
[2023-08-11] MEDS: Insulin Lispro 100 UNIT/ML INSULN.PEN SC ×4 (06:31→21:26)
[2023-08-11] MEDS: Piperacil/Tazobactam 3.375 GM in 0.9% Normal Saline (50mL MB+) 50 ML IV ×3 (06:35→21:22)
[2023-08-11 06:37] LABS: Absolute Lymphocyte Count 0.71 X10^3/uL (0.83-4.51); Absolute Neutrophil Count 5.8 X10^3/uL (2.0-7.7); Basophil# 0.01 X10^3/uL; Basophil% 0.1 % (0-1); Eosinophil# 0.19 X10^3/uL; Eosinophils% 2.6 % (0-5); Hemoglobin 11.6 g/dL (13.0-16.5); Lymphocyte # 0.71 X10^3/ul (0.83-4.51); Lymphocyte % 9.6 % (19-41); Mean Corp Hgb Conc 29.7 g/dL (32-36); Mean Corpuscular Hgb 29.4 pg (27.0-32.0); Mean Corpuscular Volume 98.7 fL (80-94); Mean Platelet Vol. 11.2 fl (6.2-12.0); Monocyte# 0.58 X10^3/uL; Monocyte% 7.9 % (0-10); NRBC Flagged by Analyzer 0 % (0-5); Neutrophil # 5.82 X10^3/uL (2.7-7.7); Neutrophil % 79.1 % (47-70); Platelet Count 120 K/mm3 (150-450); RBC Distribution Width CV 17.3 % (11.6-14.6); RBC Distribution Width SD 63.5 fl (35.1-43.9); Red Blood Count 3.95 M/mm3 (4.6-6.2); White Blood Count 7.4 K/mm3 (4.4-11.0)
[2023-08-11 07:17] LABS: Anion Gap 7 (5-15); BUN 63 mg/dL (7-18); BUN/Creat Ratio 25.6 RATIO (10-20); Calcium,Total 8.3 mg/dL (8.5-10.1); Chloride 104 mmol/L (98-107); Creatinine, Serum 2.46 mg/dL (0.70-1.30); EST Glomerular Filtration Rate 27 mL/min (>60); Est Glom Filt Rate - Afr Amer 33 mL/min (>60); Estimated Creatinine Clearance 26.34 ml/min; Glucose 162 mg/dL (74-106); Potassium 4.3 mmol/L (3.5-5.1); Sodium Level 138 mmol/L (136-145)
[2023-08-11 07:19] LABS: Bedside Glucose 152 mg/dL (74-106)
[2023-08-11] MEDS: Lidocaine 5% Patch 2 PATCH TOPICAL (11:04)
[2023-08-11] MEDS: Pantoprazole Sodium 40 MG Tablet PO (11:07)
[2023-08-11] MEDS: Amiodarone 200 MG Tablet PO (11:07)
[2023-08-11] MEDS: Isosorbide Mononitrate 30 MG Tablet PO (11:07)
[2023-08-11] MEDS: Metoprolol Tartrate 100 MG Tablet PO ×2 (11:07→21:21)
[2023-08-11] MEDS: Senna/Docusate Sodium 1 Tablet 2 TABLET PO ×2 (11:07→21:23)
[2023-08-11] MEDS: APIXABAN 2.5 MG TABLET (WCH) PO ×2 (11:08→21:21)
[2023-08-11] MEDS: Gabapentin 100 MG Capsule PO ×3 (11:08→18:11)
[2023-08-11] MEDS: Aspirin E.C. 81 MG Tablet PO (11:10)
[2023-08-11] MEDS: Miconazole Nitrate 43 GM Bottle 1 APPLIC TOPICAL ×2 (11:10→21:21)
--- NOTE | 2023-08-11 11:25 | PCM.PN.REN ---
Documented by User: TIMUR Millan 08/11/23 11:49 Subjective Subjective Sitting in chair. More alert and awake today. States feeling better. States breathing easy, denies any N/V/D. Objective Data Objective Data Vital Signs: Vital Signs Temp Pulse Resp BP Pulse Ox O2 Del Method O2 Flow Rate 98.4 F 128 H 15 110/80 98 Room Air 1 08/11/23 11:00 08/11/23 11:07 08/11/23 11:00 08/11/23 11:00 08/11/23 11:00 08/11/23 11:00 08/11/23 07:09 FiO2 2 08/08/23 22:00 Oxygen Flow Rate (L/min) 1 Oxygen Delivery Method Room Air Weight: 133.5 kg Body Mass Index (BMI) 43.4 Intake & Output: Intake and Output for Last 24 Hours 08/09/23 08/10/23 08/11/23 23:59 23:59 23:59 Intake Total 1690 / 1690 2215.54 / 2215.54 1100 / 1100 Output Total 480 / 480 600 / 600 500 / 500 Balance 1210 / 1210 1615.54 / 1615.54 600 / 600 Lab / Micro Data 08/12/23 05:07 08/12/23 05:07 Labs: Laboratory Results - last 24 hr 08/10/23 05:42: ESR 14, C-React Prot Ext Range 186.00 H 08/10/23 11:38: POC Glucose 150 H 08/10/23 14:17: MRSA (PCR) Negative 08/10/23 14:33: Sodium 137, Potassium 3.8, Chloride 104, Carbon Dioxide 26.0, Anion Gap 7, BUN 62 H, Creatinine 2.69 H, Estim Creat Clear Calc 24.09, Est GFR (MDRD) Af Amer 30 L, Est GFR (MDRD) Non-Af 25 L, BUN/Creatinine Ratio 23.0 H, Glucose 142 H, Calcium 8.3 L, TSH 2.07 08/10/23 14:55: S.aureus Protein A PCR NEGATIVE, MRSA (PCR) Negative 08/10/23 16:24: POC Glucose 139 H 08/10/23 18:01: Urine Color Yellow, Urine Clarity Clear, Urine pH 5.0, Ur Specific Ong 1.015, Urine Protein 30 H, Urine Glucose (UA) Normal, Urine Ketones Negative, Urine Occult Blood Negative, Urine Nitrite Negative, Urine Bilirubin Negative, Urine Urobilinogen 1 H, Ur Leukocyte Esterase Negative, Urine RBC 0 SEEN, Urine WBC 0 SEEN, Ur Squamous Epith Cells 0 SEEN, Urine Bacteria 0 SEEN, Urine Mucus 0 SEEN 08/10/23 21:31: POC Glucose 164 H 08/11/23 05:40: WBC 7.4, RBC 3.95 L, Hgb 11.6 L, Hct 39.0 L, MCV 98.7 H, MCH 29.4, MCHC 29.7 L, RDW Std Deviation 63.5 H, RDW Coeff of Raphael 17.3 H, Plt Count 120 L, MPV 11.2, Immature Gran % (Auto) 0.700, Neut % (Auto) 79.1 H, Lymph % (Auto) 9.6 L, [place] % (Auto) 7.9, Eos % (Auto) 2.6, Baso % (Auto) 0.1, Absolute Neuts (auto) 5.8, Absolute Lymphs (auto) 0.71 L, Nucleated RBC % 0, Sodium 138, Potassium 4.3, Chloride 104, Carbon Dioxide 27.0, Anion Gap 7, BUN 63 H, Creatinine 2.46 H, Estim Creat Clear Calc 26.34, Est GFR (MDRD) Af Amer 33 L, Est GFR (MDRD) Non-Af 27 L, BUN/Creatinine Ratio 25.6 H, Glucose 162 H, Calcium 8.3 L 08/11/23 06:28: POC Glucose 152 H Rhythm Strip Rhythm Strip: A-fib Rate: 126 Ectopy: None Physical Exam Narrative Alert and orient x3, no apparent distress S1, S2, RRR Diminished breath sounds posterior bases; no wheezes, rhonchi or rales noted Abdomen soft, nontender, +BS pitting edema b/l legs; L>R Assessment & Plan Assessment/Plan (1) YADIRA (acute kidney injury): (2) CKD stage 3 secondary to diabetes: (3) CHF (congestive heart failure): PLAN: Plan This is a 73-year-old male with past medical history significant for coronary artery disease status post stenting, heart failure reduced EF, type 2 diabetes mellitus, hypertension, COPD, gout, JUAN ALBERTO, kidney stones, CKD stage III who presented to the emergency room with worsening lower extremity edema, shortness of breath admitted for further evaluation and treatment. Work-up in emergency room included chest x-ray which did not show any evidence of volume overload, BNP elevated to 2187, last echo on 06/28/2023 showed an EF of 40% with mild global LV hypokinesis, mild diastolic dysfunction, moderate aortic stenosis. He was given IV albumin. Nephrology consulted for YADIRA, patient has history of CKD stage III secondary to diabetic nephropathy. -nonoliguric YADIRA superimposed on CKD stage III: YADIRA prerenal likely multifactoral as patient has had multiple insults that may have affected kidney function hypotension, cellulitis, NSAIDs before hospital admission. May also see fluctuations in SCr from cardiorenal syndrome physiology. Ur sodium 8 on admission. UA negative for blood or leuk esterase. Creatinine 2.46 on admission, started on lasix gtt as patient on exam hypervolemic (weight is 10kg up from 3 weeks ago), creatinine peaked 2.73. Lasix gtt stopped yesterday, patient received IVFs and today SCr improved to 2.46. Potassium and acid-base acceptable. Abdominal ultrasound showed small volume ascites; renal ultrasound no hydronephrosis. Will check bladder scan post void - CKD stage 3 secondary to diabetic nephropathy; Baseline creatinine around 1.5 to 1.7 mg/dL. - chronic combined systolic and diastolic heart failure; echo from 06/2023: EF 40%, hypokinetic apex, mild mitral valve insufficiency, moderate aortic stenosis, and mild to moderate aortic valve insufficiency with evidence of diastolic dysfunction. heart cath from 07/2023 showed stable CAD with ongoing medical management - left leg cellulitis on Zosyn. Venous doppler negative for DVT. WBC slightly elevated on admission, now normal. BC pending - discussed with Dr. Otero Documented by User: Dr. Emeterio Hutchinson MD 08/12/23 17:12 Objective Data Lab / Micro Data 08/12/23 05:07 08/12/23 05:07 Assessment & Plan Assessment/Plan (1) YADIRA (acute kidney injury): (2) CKD stage 3 secondary to diabetes: (3) CHF (congestive heart failure): PLAN: Plan This is a 73-year-old male with past medical history significant for coronary artery disease status post stenting, heart failure reduced EF, type 2 diabetes mellitus, hypertension, COPD, gout, JUAN ALBERTO, kidney stones, CKD stage III who presented to the emergency room with worsening lower extremity edema, shortness of breath admitted for further evaluation and treatment. Work-up in emergency room included chest x-ray which did not show any evidence of volume overload, BNP elevated to 2187, last echo on 06/28/2023 showed an EF of 40% with mild global LV hypokinesis, mild diastolic dysfunction, moderate aortic stenosis. He was given IV albumin. Nephrology consulted for YADIRA, patient has history of CKD stage III secondary to diabetic nephropathy. -nonoliguric YADIRA superimposed on CKD stage III: YADIRA prerenal likely multifactoral as patient has had multiple insults that may have affected kidney function hypotension, cellulitis, NSAIDs before hospital admission. May also see fluctuations in SCr from cardiorenal syndrome physiology. Ur sodium 8 on admission. UA negative for blood or leuk esterase. Creatinine 2.46 on admission, started on lasix gtt as patient on exam hypervolemic (weight is 10kg up from 3 weeks ago), creatinine peaked 2.73. Lasix gtt stopped yesterday, patient received IVFs and today SCr improved to 2.46. Potassium and acid-base acceptable. Abdominal ultrasound showed small volume ascites; renal ultrasound no hydronephrosis. Will check bladder scan post void - CKD stage 3 secondary to diabetic nephropathy; Baseline creatinine around 1.5 to 1.7 mg/dL. - chronic combined systolic and diastolic heart failure; echo from 06/2023: EF 40%, hypokinetic apex, mild mitral valve insufficiency, moderate aortic stenosis, and mild to moderate aortic valve insufficiency with evidence of diastolic dysfunction. heart cath from 07/2023 showed stable CAD with ongoing medical management - left leg cellulitis on Zosyn. Venous doppler negative for DVT. WBC slightly elevated on admission, now normal. BC pending - discussed with Dr. Branden ortiz [employer]. agree with plan
[2023-08-11 11:40] LABS: Bedside Glucose 184 mg/dL (74-106)
--- NOTE | 2023-08-11 12:17 | PCM.PN.HOSP ---
Reason for Visit Reason for Visit: Lower extremity swelling/debility Subjective Subjective Patient states he is feeling better today. Left lower extremity still painful however he states it is a bit less so. Redness is improved. Still intends on going home at discharge. On room air. Denies any current needs. Objective Data Objective Data Vital Signs: Vital Signs Temp Pulse Resp BP Pulse Ox O2 Del Method O2 Flow Rate 98.4 F 128 H 15 110/80 81 Room Air 1 08/11/23 11:00 08/11/23 11:07 08/11/23 11:00 08/11/23 11:00 08/11/23 11:15 08/11/23 11:15 08/11/23 07:09 FiO2 2 08/08/23 22:00 Oxygen Flow Rate (L/min) 1 Oxygen Delivery Method Room Air Weight: 133.5 kg Body Mass Index (BMI) 43.4 Intake & Output: Intake and Output for Last 24 Hours 08/09/23 08/10/23 08/11/23 23:59 23:59 23:59 Intake Total 1690 / 1690 2215.54 / 2215.54 1100 / 1100 Output Total 480 / 480 600 / 600 500 / 500 Balance 1210 / 1210 1615.54 / 1615.54 600 / 600 Lab / Micro Data 08/11/23 05:40 08/11/23 05:40 Labs: Laboratory Results - last 24 hr 08/10/23 05:42: ESR 14, C-React Prot Ext Range 186.00 H 08/10/23 14:17: MRSA (PCR) Negative 08/10/23 14:33: Sodium 137, Potassium 3.8, Chloride 104, Carbon Dioxide 26.0, Anion Gap 7, BUN 62 H, Creatinine 2.69 H, Estim Creat Clear Calc 24.09, Est GFR (MDRD) Af Amer 30 L, Est GFR (MDRD) Non-Af 25 L, BUN/Creatinine Ratio 23.0 H, Glucose 142 H, Calcium 8.3 L, TSH 2.07 08/10/23 14:55: S.aureus Protein A PCR NEGATIVE, MRSA (PCR) Negative 08/10/23 16:24: POC Glucose 139 H 08/10/23 18:01: Urine Color Yellow, Urine Clarity Clear, Urine pH 5.0, Ur Specific [place] 1.015, Urine Protein 30 H, Urine Glucose (UA) Normal, Urine Ketones Negative, Urine Occult Blood Negative, Urine Nitrite Negative, Urine Bilirubin Negative, Urine Urobilinogen 1 H, Ur Leukocyte Esterase Negative, Urine RBC 0 SEEN, Urine WBC 0 SEEN, Ur Squamous Epith Cells 0 SEEN, Urine Bacteria 0 SEEN, Urine Mucus 0 SEEN 08/10/23 21:31: POC Glucose 164 H 08/11/23 05:40: WBC 7.4, RBC 3.95 L, Hgb 11.6 L, Hct 39.0 L, MCV 98.7 H, MCH 29.4, MCHC 29.7 L, RDW Std Deviation 63.5 H, RDW Coeff of Raphael 17.3 H, Plt Count 120 L, MPV 11.2, Immature Gran % (Auto) 0.700, Neut % (Auto) 79.1 H, Lymph % (Auto) 9.6 L, [place] % (Auto) 7.9, Eos % (Auto) 2.6, Baso % (Auto) 0.1, Absolute Neuts (auto) 5.8, Absolute Lymphs (auto) 0.71 L, Nucleated RBC % 0, Sodium 138, Potassium 4.3, Chloride 104, Carbon Dioxide 27.0, Anion Gap 7, BUN 63 H, Creatinine 2.46 H, Estim Creat Clear Calc 26.34, Est GFR (MDRD) Af Amer 33 L, Est GFR (MDRD) Non-Af 27 L, BUN/Creatinine Ratio 25.6 H, Glucose 162 H, Calcium 8.3 L 08/11/23 06:28: POC Glucose 152 H 08/11/23 10:57: POC Glucose 184 H Rhythm Strip Rhythm Strip: A-fib Rate: 126 Ectopy: None Physical Exam Const alert, oriented x3, no apparent distress and well nourished; Negative for average body habitus or healthy appearing Constitutional Narrative: Morbidly obese, white male, sitting up in chair at the bedside, patient appears chronically ill, appears even more comfortable today HEENT normocephalic, head/scalp atraumatic, hearing grossly normal bilaterally and moist oral mucous membranes Resp normal respiratory effort, normal air movement, no retractions, no use of accessory muscles and clear to auscultation bilaterally Resp Narrative: Diffusely diminished but clear Auscultation: Negative for crackles, rhonchi or wheezes Cardio regular rate, S1 normal heart sound, S2 normal heart sound, no rub, no gallops, no clicks and peripheral pulses 2+ throughout; Negative for regular rhythm or no murmurs Cardio Narrative: irregular irregular rhythm, 2 out of 6 systolic murmur loudest at right upper sternal border GI normal to inspection, nondistended, normoactive bowel sounds, soft to palpation and non-tender GI Narrative: Minimal pitting edema in the lateral abdominal wall with no fluid wave, abdomen is protuberant Extremity Extremity Narrative: Patient still with significant left lower extremity edema that is about 3+, trace to 1+ on the right, edema extends up to the thighs bilaterally, erythema in left lower extremity is much improved, less pain to palpation of left lower extremity however painful with deep palpation still Skin Skin Narrative: Small wound at the tip of his third digit on the left lower extremity but does not appear to be infected but would be nidus for infection of the lower extremity, left lower extremity is shiny and tender to palpation Neuro oriented x3, moves all extremities and no focal motor deficits Speech: speech normal Psych mental status grossly normal and affect normal Psych Narrative: Mood is much better today and affect is normal Assessment & Plan Assessment/Plan (1) Anasarca: (2) Acute on chronic combined systolic (congestive) and diastolic (congestive) heart failure: (3) Paroxysmal atrial fibrillation with RVR: (4) Thrombocytopenia: (5) Hyperbilirubinemia: (6) Cellulitis of left lower extremity: PLAN: Plan Acute on chronic combined systolic and diastolic heart failure -Recent cath shows stable coronary disease with ongoing medical management recommended (07/19/2023) -Most recent echo done on 06/29/2023 shows an EF of 40% with a hypokinetic apex, mild mitral valve insufficiency, moderate aortic stenosis, and mild to moderate aortic valve insufficiency with evidence of diastolic dysfunction -Patient did not diurese well on Lasix drip and diuretics are currently on hold with worsening renal function -Plan is to restart oral Lasix tomorrow -Weight is significantly up from his admission here in July -Continue fluid restriction -Continue salt restricted diet -Continue daily weights -Cardiology is following-appreciate input Left lower extremity cellulitis -Left lower extremity erythema is much improved today -ESR is normal but CRP is markedly elevated -Will repeat and trend CRP tomorrow for improvement -Blood cultures remain pending -MRSA PCR is negative -Continue Zosyn -Patient does have small wound on the tip of his left toe from his son cutting his toenails that could be the nidus for infection -Continue to elevate left lower extremity when able YADIRA on CKD stage IIIb -Baseline serum creatinine appears to run between 1.4 and 1.6 -Current serum creatinine is down to 2.46 from a peak of 2.73 yesterday -Initially thought this was prerenal due to cardiorenal syndrome however urine output has been poor despite Lasix drip and therefore discontinued and renal function is worsening -Patient was given a total of 2 L of IV fluids yesterday -UA is unremarkable -No further work-up needed with regards to autoimmune pathology -C3/C4/CH 50 are pending -Renal ultrasound only shows some medical renal disease and is not explanatory worsening renal function at this time -Nephro following-appreciate input -Discussed with nephrology nurse practitioner and we will continue to hold diuretics today and restart his oral dose at home, we are wondering if this is a combination of low blood pressure, infection, and the patient was on NSAIDs prior to admission Hypoxia -Resolved -Patient is back on room air Anasarca -We initially felt that this was likely due to heart failure however he has been on diuretics and not diuresing well with worsening renal function -UA with no significant protein -Serum protein is not all that low at 3.1 -Lower extremity Dopplers were negative for any DVT -We will restart home diuresis tomorrow Paroxysmal atrial fib with RVR -Continue home apixaban but at reduced dose 2.5 mg daily with current renal function -Continue home metoprolol -Continue amiodarone 200 mg daily -Heart rate overall is better however still some tachycardia intermittently Thrombocytopenia -This is new -Very mild but has trended down -Coags are abnormal due to chronic use of anticoagulation with apixaban -Continue to monitor Hyperbilirubinemia -Etiology is unclear -Stable DM-2 -Fairly well controlled his recent A1c on 06/30/2023 was 7.1 -Hold home glipizide -SSI -Accu-Cheks as ordered -Diabetic/cardiac diet CAD/HPL -History of NSTEMI with multiple TAMIA to various arteries per cardiology documentation -Continue home atorvastatin -Continue home isosorbide mononitrate -Continue home wall -Continue home aspirin -Cardiac/carb controlled diet History of aortic stenosis -Medical therapy per cardiology with no changes History of gout -Continue home allopurinol History of tobacco abuse -It is documented history that he has COPD however I do not see PFTs -He is not on any inhaler therapy -As needed albuterol Morbid obesity -BMI is 43.5 -Recommend weight loss -Complicates treatment, prognosis, outcomes JUAN ALBERTO History patient has documented history of obstructive sleep apnea however is not compliant with the mask -Unable to tolerate -We will utilize oxygen as needed nocturnally to maintain sats greater than 88% DVT prophylaxis -Patient is fully anticoagulated with apixaban CODE STATUS -Full code is verified on admission Charges/Coding Visit Charges Inpatient E&M: 46632 Subs Hosp L2
[2023-08-11] MEDS: oxyCODONE 5 MG Tablet PO (14:49)
[2023-08-11 15:08] LABS: Complement C3 110 mg/dL (82-167); Complement CH50 > 60 U/mL (>41)
[2023-08-11] MEDS: Atorvastatin Calcium 80 MG Tablet PO (21:21)
[2023-08-11 21:50] LABS: Bedside Glucose 228 mg/dL (74-106)
[2023-08-11 21:50] LABS: Bedside Glucose 214 mg/dL (74-106)
[2023-08-12] VITALS (9 sets, daily range): BP systolic 108–119; BP diastolic 70–85; PULSE 82–110; RESP 16–18; TEMP 36.4–37.1; O2SAT 95–97; BMI 44.8
[2023-08-12] MEDS: Piperacil/Tazobactam 3.375 GM in 0.9% Normal Saline (50mL MB+) 50 ML IV ×3 (05:21→22:33)
[2023-08-12 06:17] LABS: Absolute Neutrophil Count 6.3 X10^3/uL (2.0-7.7); Basophil# 0.03 X10^3/uL; Basophil% 0.4 % (0-1); Eosinophil# 0.14 X10^3/uL; Eosinophils% 1.7 % (0-5); Hemoglobin 11.6 g/dL (13.0-16.5); Lymphocyte % 9.8 % (19-41); Mean Corp Hgb Conc 29.7 g/dL (32-36); Mean Corpuscular Hgb 29.1 pg (27.0-32.0); Mean Platelet Vol. 11.6 fl (6.2-12.0); Monocyte% 9.8 % (0-10); NRBC Flagged by Analyzer 0.4 % (0-5); Neutrophil # 6.32 X10^3/uL (2.7-7.7); Neutrophil % 77.7 % (47-70); Platelet Count 143 K/mm3 (150-450); RBC Distribution Width CV 17.2 % (11.6-14.6); RBC Distribution Width SD 61.8 fl (35.1-43.9); Red Blood Count 3.98 M/mm3 (4.6-6.2); White Blood Count 8.1 K/mm3 (4.4-11.0)
[2023-08-12 06:52] LABS: Anion Gap 9 (5-15); BUN 58 mg/dL (7-18); BUN/Creat Ratio 27.5 RATIO (10-20); Calcium,Total 8.6 mg/dL (8.5-10.1); Chloride 104 mmol/L (98-107); Creatinine, Serum 2.11 mg/dL (0.70-1.30); EST Glomerular Filtration Rate 33 mL/min (>60); Est Glom Filt Rate - Afr Amer 40 mL/min (>60); Estimated Creatinine Clearance 30.71 ml/min; Glucose 138 mg/dL (74-106); Potassium 4.3 mmol/L (3.5-5.1); Sodium Level 136 mmol/L (136-145)
[2023-08-12] MEDS: 0.9% Saline Lock 10 ML Syringe IV (09:52)
[2023-08-12] MEDS: Gabapentin 100 MG Capsule PO ×3 (09:53→17:41)
[2023-08-12] MEDS: APIXABAN 2.5 MG TABLET (WCH) PO ×2 (09:53→22:29)
[2023-08-12] MEDS: Metoprolol Tartrate 100 MG Tablet PO ×2 (09:54→22:26)
[2023-08-12] MEDS: Aspirin E.C. 81 MG Tablet PO (09:54)
[2023-08-12] MEDS: Amiodarone 200 MG Tablet PO (09:54)
[2023-08-12] MEDS: Pantoprazole Sodium 40 MG Tablet PO (09:55)
[2023-08-12] MEDS: Allopurinol 100 MG Tablet 50 MG PO (09:55)
[2023-08-12] MEDS: Senna/Docusate Sodium 1 Tablet 2 TABLET PO (09:55)
[2023-08-12] MEDS: Isosorbide Mononitrate 30 MG Tablet PO (09:55)
[2023-08-12] MEDS: Miconazole Nitrate 43 GM Bottle 1 APPLIC TOPICAL ×2 (09:56→22:33)
[2023-08-12] MEDS: Lidocaine 5% Patch 2 PATCH TOPICAL (09:57)
--- NOTE | 2023-08-12 10:20 | PCM.PN.REN ---
Documented by User: TIMUR Millan 08/12/23 10:25 Subjective Subjective Sitting at recliner chair. Reports feeling better today. Denies any nausea, vomiting or diarrhea. Legs elevated. Less redness to left leg. Objective Data Objective Data Vital Signs: Vital Signs Temp Pulse Resp BP Pulse Ox O2 Del Method O2 Flow Rate 97.6 F L 107 H 16 116/84 H 97 Room Air 1 08/12/23 09:00 08/12/23 09:54 08/12/23 09:00 08/12/23 09:54 08/12/23 09:11 08/12/23 09:11 08/11/23 07:09 FiO2 2 08/08/23 22:00 Oxygen Flow Rate (L/min) 1 Oxygen Delivery Method Room Air Weight: 133.5 kg Body Mass Index (BMI) 43.4 Intake & Output: Intake and Output for Last 24 Hours 08/10/23 08/11/23 08/12/23 23:59 23:59 23:59 Intake Total 2215.54 / 2215.54 1150 / 1350 250 / 250 Output Total 600 / 600 1000 / 1000 300 / 300 Balance 1615.54 / 1615.54 150 / 350 -50 / -50 Lab / Micro Data 08/12/23 05:07 08/12/23 05:07 Labs: Laboratory Results - last 24 hr 08/09/23 05:32: Complement C3 110, Complement C4 18, Tot Complement (CH50) > 60 08/11/23 10:57: POC Glucose 184 H 08/11/23 18:05: POC Glucose 228 H 08/11/23 21:25: POC Glucose 214 H 08/12/23 05:07: WBC 8.1, RBC 3.98 L, Hgb 11.6 L, Hct 39.0 L, MCV 98.0 H, MCH 29.1, MCHC 29.7 L, RDW Std Deviation 61.8 H, RDW Coeff of Raphael 17.2 H, Plt Count 143 L, MPV 11.6, Immature Gran % (Auto) 0.600, Neut % (Auto) 77.7 H, Lymph % (Auto) 9.8 L, [place] % (Auto) 9.8, Eos % (Auto) 1.7, Baso % (Auto) 0.4, Absolute Neuts (auto) 6.3, Absolute Lymphs (auto) 0.80 L, Nucleated RBC % 0.4, Sodium 136, Potassium 4.3, Chloride 104, Carbon Dioxide 23.0, Anion Gap 9, BUN 58 H, Creatinine 2.11 H, Estim Creat Clear Calc 30.71, Est GFR (MDRD) Af Amer 40 L, Est GFR (MDRD) Non-Af 33 L, BUN/Creatinine Ratio 27.5 H, Glucose 138 H, Calcium 8.6, C-React Prot Ext Range 171.00 H Rhythm Strip Rhythm Strip: A-fib Rate: 126 Ectopy: None Physical Exam Narrative Alert and orient x3, no apparent distress S1, S2, RRR Diminished breath sounds posterior bases; no wheezes, rhonchi or rales noted Abdomen soft, nontender, +BS pitting edema b/l legs; L>R Assessment & Plan Assessment/Plan (1) YADIRA (acute kidney injury): (2) CKD stage 3 secondary to diabetes: (3) CHF (congestive heart failure): PLAN: Plan This is a 73-year-old male with past medical history significant for coronary artery disease status post stenting, heart failure reduced EF, type 2 diabetes mellitus, hypertension, COPD, gout, JUAN ALBEROT, kidney stones, CKD stage III who presented to the emergency room with worsening lower extremity edema, shortness of breath admitted for further evaluation and treatment. Work-up in emergency room included chest x-ray which did not show any evidence of volume overload, BNP elevated to 2187, last echo on 06/28/2023 showed an EF of 40% with mild global LV hypokinesis, mild diastolic dysfunction, moderate aortic stenosis. He was given IV albumin. Nephrology consulted for YADIRA, patient has history of CKD stage III secondary to diabetic nephropathy. -nonoliguric YADIRA superimposed on CKD stage III: YADIRA prerenal likely multifactoral as patient has had multiple insults that may have affected kidney function hypotension, cellulitis, NSAIDs before hospital admission. May also see fluctuations in SCr from cardiorenal syndrome physiology. Ur sodium 8 on admission. UA negative for blood or leuk esterase. Creatinine 2.46 on admission, started on lasix gtt as patient on exam hypervolemic (weight is 10kg up from 3 weeks ago), creatinine peaked 2.73 08/10. Lasix gtt stopped 08/10, patient received IVFs -->SCr improved 2.4--> today 2.11. Potassium and acid-base acceptable. Abdominal ultrasound showed small volume ascites; renal ultrasound no hydronephrosis. Bladder scan postvoid no volume - CKD stage 3 secondary to diabetic nephropathy; Baseline creatinine around 1.5 to 1.7 mg/dL. We will arrange for hospital follow-up in [place] office - chronic combined systolic and diastolic heart failure; echo from 06/2023: EF 40%, hypokinetic apex, mild mitral valve insufficiency, moderate aortic stenosis, and mild to moderate aortic valve insufficiency with evidence of diastolic dysfunction. heart cath from 07/2023 showed stable CAD with ongoing medical management. We will restart oral Lasix today. Bps low but improved - left leg cellulitis on Zosyn. Improving. Venous doppler negative for DVT. WBC slightly elevated on admission, now normal. BC pending - discussed with Dr. Otero Documented by User: Dr. Emeterio Hutchinson MD 08/12/23 17:11 Objective Data Lab / Micro Data 08/12/23 05:07 08/12/23 05:07 Assessment & Plan Assessment/Plan (1) YADIRA (acute kidney injury): (2) CKD stage 3 secondary to diabetes: (3) CHF (congestive heart failure): PLAN: Plan This is a 73-year-old male with past medical history significant for coronary artery disease status post stenting, heart failure reduced EF, type 2 diabetes mellitus, hypertension, COPD, gout, JUAN ALBERTO, kidney stones, CKD stage III who presented to the emergency room with worsening lower extremity edema, shortness of breath admitted for further evaluation and treatment. Work-up in emergency room included chest x-ray which did not show any evidence of volume overload, BNP elevated to 2187, last echo on 06/28/2023 showed an EF of 40% with mild global LV hypokinesis, mild diastolic dysfunction, moderate aortic stenosis. He was given IV albumin. Nephrology consulted for YADIRA, patient has history of CKD stage III secondary to diabetic nephropathy. -nonoliguric YADIRA superimposed on CKD stage III: YADIRA prerenal likely multifactoral as patient has had multiple insults that may have affected kidney function hypotension, cellulitis, NSAIDs before hospital admission. May also see fluctuations in SCr from cardiorenal syndrome physiology. Ur sodium 8 on admission. UA negative for blood or leuk esterase. Creatinine 2.46 on admission, started on lasix gtt as patient on exam hypervolemic (weight is 10kg up from 3 weeks ago), creatinine peaked 2.73 08/10. Lasix gtt stopped 08/10, patient received IVFs -->SCr improved 2.4--> today 2.11. Potassium and acid-base acceptable. Abdominal ultrasound showed small volume ascites; renal ultrasound no hydronephrosis. Bladder scan postvoid no volume - CKD stage 3 secondary to diabetic nephropathy; Baseline creatinine around 1.5 to 1.7 mg/dL. We will arrange for hospital follow-up in [place] office - chronic combined systolic and diastolic heart failure; echo from 06/2023: EF 40%, hypokinetic apex, mild mitral valve insufficiency, moderate aortic stenosis, and mild to moderate aortic valve insufficiency with evidence of diastolic dysfunction. heart cath from 07/2023 showed stable CAD with ongoing medical management. We will restart oral Lasix today. Bps low but improved - left leg cellulitis on Zosyn. Improving. Venous doppler negative for DVT. WBC slightly elevated on admission, now normal. BC pending - discussed with Dr. Branden ortiz [employer]. agree with above
[2023-08-12 10:35] LABS: Bedside Glucose 119 mg/dL (74-106)
[2023-08-12] MEDS: Insulin Lispro 100 UNIT/ML INSULN.PEN SC ×3 (11:17→22:22)
[2023-08-12 11:38] LABS: Bedside Glucose 207 mg/dL (74-106)
[2023-08-12] MEDS: Furosemide 40 MG Tablet PO ×2 (12:13→17:40)
[2023-08-12] MEDS: Polyethylene Glycol 3350 17 GM PACKET PO (12:14)
--- NOTE | 2023-08-12 14:31 | PCM.PN.HOSP ---
Reason for Visit Reason for Visit: Lower extremity swelling/debility Objective Data Objective Data Vital Signs: Vital Signs Temp Pulse Resp BP Pulse Ox O2 Del Method O2 Flow Rate 98.7 F 88 16 119/85 H 96 Room Air 1 08/12/23 12:19 08/12/23 12:19 08/12/23 12:19 08/12/23 12:19 08/12/23 12:19 08/12/23 12:19 08/11/23 07:09 FiO2 2 08/08/23 22:00 Oxygen Flow Rate (L/min) 1 Oxygen Delivery Method Room Air Weight: 137.7 kg Body Mass Index (BMI) 44.8 Intake & Output: Intake and Output for Last 24 Hours 08/10/23 08/11/23 08/12/23 23:59 23:59 23:59 Intake Total 2215.54 / 2215.54 1150 / 1350 560 / 560 Output Total 600 / 600 1000 / 1000 600 / 600 Balance 1615.54 / 1615.54 150 / 350 -40 / -40 Lab / Micro Data 08/12/23 05:07 08/12/23 05:07 Labs: Laboratory Results - last 24 hr 08/09/23 05:32: Complement C3 110, Complement C4 18, Tot Complement (CH50) > 60 08/11/23 18:05: POC Glucose 228 H 08/11/23 21:25: POC Glucose 214 H 08/12/23 05:07: WBC 8.1, RBC 3.98 L, Hgb 11.6 L, Hct 39.0 L, MCV 98.0 H, MCH 29.1, MCHC 29.7 L, RDW Std Deviation 61.8 H, RDW Coeff of Raphael 17.2 H, Plt Count 143 L, MPV 11.6, Immature Gran % (Auto) 0.600, Neut % (Auto) 77.7 H, Lymph % (Auto) 9.8 L, [place] % (Auto) 9.8, Eos % (Auto) 1.7, Baso % (Auto) 0.4, Absolute Neuts (auto) 6.3, Absolute Lymphs (auto) 0.80 L, Nucleated RBC % 0.4, Sodium 136, Potassium 4.3, Chloride 104, Carbon Dioxide 23.0, Anion Gap 9, BUN 58 H, Creatinine 2.11 H, Estim Creat Clear Calc 30.71, Est GFR (MDRD) Af Amer 40 L, Est GFR (MDRD) Non-Af 33 L, BUN/Creatinine Ratio 27.5 H, Glucose 138 H, Calcium 8.6, C-React Prot Ext Range 171.00 H 08/12/23 08:11: POC Glucose 119 H 08/12/23 11:16: POC Glucose 207 H Micro: Microbiology 08/10/23 12:10 Blood Culture (Wb) - Right Hand Blood Culture - Preliminary No growth in 48 hours. 08/10/23 12:00 Blood Culture (Wb) - Right Hand Blood Culture - Preliminary No growth in 48 hours. Rhythm Strip Rhythm Strip: A-fib Rate: 126 Ectopy: None Physical Exam Const alert, oriented x3, no apparent distress and well nourished; Negative for average body habitus or healthy appearing Constitutional Narrative: Morbidly obese, white male, sitting up in chair at the bedside, patient appears chronically ill, appears even more comfortable today General Appearance: cooperative and comfortable HEENT normocephalic, head/scalp atraumatic, hearing grossly normal bilaterally, nasal mucous membranes and turbinates normal and moist oral mucous membranes Eyes PERRL, EOMs intact bilaterally and conjunctivae normal Neck full ROM, no lymphadenopathy and supple Neck Narrative: Trachea midline, no thyroid enlargement Lymph Lymphatic: no lymphadenopathy noted Chest inspection of chest normal Resp normal respiratory effort, normal air movement, no retractions, no use of accessory muscles and clear to auscultation bilaterally Resp Narrative: Diffusely diminished but clear Auscultation: Negative for crackles, rhonchi or wheezes Cardio regular rate, S1 normal heart sound, S2 normal heart sound, no rub, no gallops, no clicks and peripheral pulses 2+ throughout; Negative for regular rhythm or no murmurs Cardio Narrative: irregular irregular rhythm, 2 out of 6 systolic murmur loudest at right upper sternal border GI normal to inspection, nondistended, normoactive bowel sounds, soft to palpation and non-tender GI Narrative: Minimal pitting edema in the lateral abdominal wall with no fluid wave, abdomen is protuberant Back/Spine normal ROM Extremity Extremity Narrative: Patient still with significant left lower extremity edema that is about 3+, trace to 1+ on the right, edema extends up to the thighs bilaterally, erythema in left lower extremity is much improved, less pain to palpation of left lower extremity however painful with deep palpation still Skin no rashes or lesions noted, no jaundice, no petechiae and no mottling Skin Narrative: Small wound at the tip of his third digit on the left lower extremity but does not appear to be infected but would be nidus for infection of the lower extremity, left lower extremity is shiny and tender to palpation Neuro oriented x3, CN's II-XII intact bilaterally, moves all extremities and no focal motor deficits Neuro Narrative: Less hypersensitivity in the left lower extremity today Speech: speech normal Psych mental status grossly normal and affect normal Psych Narrative: Mood is much better today and affect is normal Assessment & Plan Assessment/Plan (1) Anasarca: (2) Acute on chronic combined systolic (congestive) and diastolic (congestive) heart failure: (3) Paroxysmal atrial fibrillation with RVR: (4) Thrombocytopenia: (5) Hyperbilirubinemia: (6) Cellulitis of left lower extremity: PLAN: Plan Acute on chronic combined systolic and diastolic heart failure -Recent cath shows stable coronary disease with ongoing medical management recommended (07/19/2023) -Most recent echo done on 06/29/2023 shows an EF of 40% with a hypokinetic apex, mild mitral valve insufficiency, moderate aortic stenosis, and mild to moderate aortic valve insufficiency with evidence of diastolic dysfunction -Patient did not diurese well on Lasix drip and diuretics are currently on hold with worsening renal function -Plan is to restart oral Lasix tomorrow -Weight is significantly up from his admission here in July -Continue fluid restriction -Continue salt restricted diet -Continue daily weights -Cardiology is following-appreciate input Left lower extremity cellulitis -Clinically much better -CRP trending down -Blood cultures neg at 48 hrs -Continue Zosyn -Patient does have small wound on the tip of his left toe from his son cutting his toenails that could be the nidus for infection -Continue to elevate left lower extremity when able YADIRA on CKD stage IIIb -Baseline serum creatinine appears to run between 1.4 and 1.6 -Current serum creatinine is down to 2.11 from a peak of 2.73 -Initially thought this was prerenal due to cardiorenal syndrome however urine output has been poor despite Lasix drip and therefore discontinued and renal function is worsening -Patient was given a total of 2 L of IV fluids 10/10/23 -restart lasix at 40 mg BID -UA is unremarkable -C3/C4/CH 50 are pending -Renal ultrasound only shows some medical renal disease and is not explanatory worsening renal function at this time -Nephro following-appreciate input Dick -We initially felt that this was likely due to heart failure however he has been on diuretics and not diuresing well with worsening renal function -UA with no significant protein -Serum protein is not all that low at 3.1 -Lower extremity Dopplers were negative for any DVT -Restart Lasix 40 mg twice daily Paroxysmal atrial fib with RVR -Continue home apixaban but at reduced dose 2.5 mg daily with current renal function -Continue home metoprolol -Continue amiodarone 200 mg daily -Heart rate overall is better however still some tachycardia intermittently Thrombocytopenia -This is new -no trending up -Coags are abnormal due to chronic use of anticoagulation with apixaban -Continue to monitor Hyperbilirubinemia -Etiology is unclear -Stable DM-2 -Fairly well controlled his recent A1c on 06/30/2023 was 7.1 -Hold home glipizide -SSI -Accu-Cheks as ordered -Diabetic/cardiac diet CAD/HPL -History of NSTEMI with multiple TAMIA to various arteries per cardiology documentation -Continue home atorvastatin -Continue home isosorbide mononitrate -Continue home wall -Continue home aspirin -Cardiac/carb controlled diet History of aortic stenosis -Medical therapy per cardiology with no changes History of gout -Continue home allopurinol History of tobacco abuse -It is documented history that he has COPD however I do not see PFTs -He is not on any inhaler therapy -As needed albuterol Morbid obesity -BMI is 43.5 -Recommend weight loss -Complicates treatment, prognosis, outcomes JUAN ALBERTO History patient has documented history of obstructive sleep apnea however is not compliant with the mask -Unable to tolerate -We will utilize oxygen as needed nocturnally to maintain sats greater than 88% DVT prophylaxis -Patient is fully anticoagulated with apixaban CODE STATUS -Full code is verified on admission Charges/Coding Visit Charges Inpatient E&M: 58996 Subs Hosp L2
[2023-08-12 17:38] LABS: Bedside Glucose 167 mg/dL (74-106)
[2023-08-12] MEDS: Atorvastatin Calcium 80 MG Tablet PO (22:25)
[2023-08-12 22:59] LABS: Bedside Glucose 222 mg/dL (74-106)
[2023-08-13 03:09] VITALS: BMI 44.5
[2023-08-13 03:16] VITALS: BP 119/77; PULSE 80; RESP 18; TEMP 36.6; O2SAT 97
[2023-08-13] MEDS: Piperacil/Tazobactam 3.375 GM in 0.9% Normal Saline (50mL MB+) 50 ML IV (05:42)
[2023-08-13 06:16] LABS: Absolute Lymphocyte Count 0.77 X10^3/uL (0.83-4.51); Absolute Neutrophil Count 6.1 X10^3/uL (2.0-7.7); Basophil# 0.04 X10^3/uL; Basophil% 0.5 % (0-1); Eosinophil# 0.07 X10^3/uL; Eosinophils% 0.9 % (0-5); Hematocrit 38.7 % (40-54); Hemoglobin 11.9 g/dL (13.0-16.5); Lymphocyte # 0.77 X10^3/ul (0.83-4.51); Lymphocyte % 9.5 % (19-41); Mean Corp Hgb Conc 30.7 g/dL (32-36); Mean Corpuscular Hgb 29.5 pg (27.0-32.0); Mean Corpuscular Volume 95.8 fL (80-94); Mean Platelet Vol. 10.8 fl (6.2-12.0); Monocyte# 1.01 X10^3/uL; Monocyte% 12.5 % (0-10); NRBC Flagged by Analyzer 0.2 % (0-5); Neutrophil # 6.12 X10^3/uL (2.7-7.7); Neutrophil % 75.7 % (47-70); Platelet Count 133 K/mm3 (150-450); RBC Distribution Width CV 17.3 % (11.6-14.6); RBC Distribution Width SD 60.6 fl (35.1-43.9); Red Blood Count 4.04 M/mm3 (4.6-6.2); White Blood Count 8.1 K/mm3 (4.4-11.0)
[2023-08-13 06:40] LABS: Anion Gap 4 (5-15); BUN 64 mg/dL (7-18); BUN/Creat Ratio 32.3 RATIO (10-20); Calcium,Total 8.9 mg/dL (8.5-10.1); Chloride 103 mmol/L (98-107); Creatinine, Serum 1.98 mg/dL (0.70-1.30); EST Glomerular Filtration Rate 35 mL/min (>60); Est Glom Filt Rate - Afr Amer 43 mL/min (>60); Estimated Creatinine Clearance 32.73 ml/min; Glucose 135 mg/dL (74-106); Potassium 4.1 mmol/L (3.5-5.1); Sodium Level 137 mmol/L (136-145)
[2023-08-13 07:10] LABS: Bedside Glucose 117 mg/dL (74-106)
[2023-08-13 08:22] VITALS: O2SAT 96
--- NOTE | 2023-08-13 09:51 | PN.RENAL_ITS ---
Subjective Subjective Sitting in recliner chair. No complaints. Hopeful to go home today. No overnight events. Objective Data Objective Data Vital Signs: Vital Signs Temp Pulse Resp BP Pulse Ox O2 Del Method O2 Flow Rate 97.8 F 80 18 119/77 96 Room Air 1 08/13/23 03:16 08/13/23 03:16 08/13/23 03:16 08/13/23 03:16 08/13/23 08:22 08/13/23 08:22 08/11/23 07:09 FiO2 2 08/08/23 22:00 Oxygen Flow Rate (L/min) 1 Oxygen Delivery Method Room Air Weight: 136.9 kg Body Mass Index (BMI) 44.5 Intake & Output: Intake and Output for Last 24 Hours 08/11/23 08/12/23 08/13/23 23:59 23:59 23:59 Intake Total 1150 / 1350 1120 / 1120 170 / 170 Output Total 1000 / 1000 800 / 800 225 / 225 Balance 150 / 350 320 / 320 -55 / -55 Lab / Micro Data 08/13/23 05:59 08/13/23 05:59 Labs: Laboratory Results - last 24 hr 08/12/23 08:11: POC Glucose 119 H 08/12/23 11:16: POC Glucose 207 H 08/12/23 17:18: POC Glucose 167 H 08/12/23 22:20: POC Glucose 222 H 08/13/23 05:59: WBC 8.1, RBC 4.04 L, Hgb 11.9 L, Hct 38.7 L, MCV 95.8 H, MCH 29.5, MCHC 30.7 L, RDW Std Deviation 60.6 H, RDW Coeff of Raphael 17.3 H, Plt Count 133 L, MPV 10.8, Immature Gran % (Auto) 0.900, Neut % (Auto) 75.7 H, Lymph % (Auto) 9.5 L, [place] % (Auto) 12.5 H, Eos % (Auto) 0.9, Baso % (Auto) 0.5, Absolute Neuts (auto) 6.1, Absolute Lymphs (auto) 0.77 L, Nucleated RBC % 0.2, Sodium 137, Potassium 4.1, Chloride 103, Carbon Dioxide 30.0, Anion Gap 4 L, BUN 64 H, Creatinine 1.98 H, Estim Creat Clear Calc 32.73, Est GFR (MDRD) Af Amer 43 L, Est GFR (MDRD) Non-Af 35 L, BUN/Creatinine Ratio 32.3 H, Glucose 135 H, Calcium 8.9 08/13/23 06:46: POC Glucose 117 H Micro: Microbiology 08/10/23 12:10 Blood Culture (Wb) - Right Hand Blood Culture - Preliminary No growth in 48 hours. 08/10/23 12:00 Blood Culture (Wb) - Right Hand Blood Culture - Preliminary No growth in 48 hours. Rhythm Strip Rhythm Strip: A-fib Rate: 126 Ectopy: None Physical Exam Narrative Alert and orient x3, no apparent distress S1, S2, RRR Diminished breath sounds posterior bases; no wheezes, rhonchi or rales noted Abdomen soft, nontender, +BS pitting edema b/l legs; L>R Assessment & Plan Assessment/Plan (1) YADIRA (acute kidney injury): (2) CKD stage 3 secondary to diabetes: (3) CHF (congestive heart failure): PLAN: Plan This is a 73-year-old male with past medical history significant for coronary artery disease status post stenting, heart failure reduced EF, type 2 diabetes mellitus, hypertension, COPD, gout, JUAN ALBERTO, kidney stones, CKD stage III who presented to the emergency room with worsening lower extremity edema, shortness of breath admitted for further evaluation and treatment. Work-up in emergency room included chest x-ray which did not show any evidence of volume overload, BNP elevated to 2187, last echo on 06/28/2023 showed an EF of 40% with mild global LV hypokinesis, mild diastolic dysfunction, moderate aortic stenosis. He was given IV albumin. Nephrology consulted for YADIRA, patient has history of CKD stage III secondary to diabetic nephropathy. -nonoliguric YADIRA superimposed on CKD stage III: YADIRA prerenal likely multifactoral as patient has had multiple insults that may have affected kidney function hypotension, cellulitis, NSAIDs before hospital admission. May also see fluctuations in SCr from cardiorenal syndrome physiology. Ur sodium 8 on admission. UA negative for blood or leuk esterase. Creatinine 2.46 on admission, started on lasix gtt as patient on exam hypervolemic (weight is 10kg up from 3 weeks ago), creatinine peaked 2.73. Lasix gtt stopped 08/10, patient received ~1L IVF and today SCr improved to 2.11. Potassium and acid-base acceptable. Abdominal ultrasound showed small volume ascites; renal ultrasound no hydronephrosis. bladder scan no volume post void. Restarted oral lasix yesterday. - CKD stage 3 secondary to diabetic nephropathy; Baseline creatinine around 1.5 to 1.7 mg/dL. - chronic combined systolic and diastolic heart failure; echo from 06/2023: EF 40%, hypokinetic apex, mild mitral valve insufficiency, moderate aortic stenosis, and mild to moderate aortic valve insufficiency with evidence of diastolic dysfunction. heart cath from 07/2023 showed stable CAD with ongoing medical management. Restarted back on diuretics yesterday. - left leg cellulitis on Zosyn. Improving. Venous doppler negative for DVT. WBC slightly elevated on admission, now normal. BC no growth. - discussed with Dr. Otero. Ethan for discharge today to home from renal standpoint. We will arrange for hospital follow-up in a few weeks. Patient to go home on Lasix 40 mg twice daily over the weekend and then increase to 60 mg twice daily after Wednesday.
[2023-08-13 10:00] VITALS: PULSE 105
--- NOTE | 2023-08-13 11:23 | PCM.DC.SUM ---
Providers Date of Admission: 08/08/23 Date of Discharge: 08/13/23 Primary Care Physician: Dr. Boston Figueroa MD Consultations 08/08/23 18:23 Consult: Cardiology Routine Consulting Provider: Sabas Bae Reason for Consult: HFrEF with YADIRA EMERGENT Consult: No Notified: Yes Date Notified: 08/08/23 Time Notified: 18:35 Method of Notification: Text 08/09/23 08:40 Consult: Nephrology Routine Consulting Provider: Emeterio Hutchinson Reason for Consult: CKD with yadira suspect cardiorenal syndrome EMERGENT Consult: No Notified: Yes Date Notified: 08/09/23 Time Notified: 11:38 Method of Notification: Answering Service Reason For Visit: DEBILITY, YADIRA ON CKD Diagnosis Discharge Diagnosis (1) YADIRA (acute kidney injury): Status: Acute Code(s): N17.9 - Acute kidney failure, unspecified (2) CKD stage 3 secondary to diabetes: Status: Chronic Code(s): E11.22 - Type 2 diabetes mellitus with diabetic chronic kidney disease; N18.30 - Chronic kidney disease, stage 3 unspecified (3) CHF (congestive heart failure): Status: Acute Code(s): I50.9 - Heart failure, unspecified Medications at Discharge Home Medications aspirin 81 mg tablet,delayed release (Adult Aspirin Regimen) 81 mg PO DAILY heart health 04/14/18 multivitamin (Daily Multi-Vitamin tablet) 1 tab PO DAILY vitamin 01/25/19 allopurinol 100 mg tablet 200 mg PO DAILYCM GOUT 08/03/22 pantoprazole 40 mg tablet,delayed release 40 mg PO DAILY ppi #90 tabs 08/11/22 glipizide 5 mg tablet 5 mg PO BID diabetes 09/15/22 nitroglycerin 0.4 mg sublingual tablet 0.4 mg sublingual Q5-15M PRN chest pain #25 tabs 06/09/23 atorvastatin 80 mg tablet 80 mg PO QHS anticholesterol 06/29/23 isosorbide mononitrate 30 mg tablet,extended release 24 hr 30 mg PO DAILY see doctor #30 tabs 07/19/23 metoprolol tartrate 100 mg tablet 100 mg PO BID blood pressure #180 tabs 07/26/23 apixaban 5 mg tablet (Eliquis) 5 mg PO BID blood thinner 08/05/23 melatonin 10 mg capsule 10 mg PO QHS PRN sleep 08/08/23 amiodarone 200 mg tablet 200 mg PO DAILY #30 tabs 08/13/23 amoxicillin 875 mg-potassium clavulanate 125 mg tablet 1 tab PO BID #24 tabs 08/13/23 furosemide 40 mg tablet 60 mg (1.5 x 40 mg) PO BID diuretic #1 TAB 08/13/23 gabapentin 100 mg capsule 100 mg PO TIDCM #90 caps 08/13/23 oxycodone 5 mg tablet 5 mg PO Q6H PRN pain 3 days #12 tabs 08/13/23 Hospital Course Procedures EKG and - (Chest x-ray/abdominal ultrasound/renal ultrasound/lower extremity Dopplers) Summary of Care Provided Minutes Spent on Discharge: 45 Hospital Course: Mr. Melgar is a 73-year-old white male who presented to the emergency department at [facility] on 08/08/2023 with lower extremity swelling and debility that had been worsening. His son was present at the time of admission. Patient reported at the time of admission that he came to the emergency department on that day because his leg had been progressively more swollen over the past several days and he had hardly been able to get out of bed on his own. He was having pretty significant pain in that leg as well. He was living with his son and stated he typically uses a walker to ambulate but had been unable to do so prior to presentation. He was hospitalized recently from 07/21/2023 through 07/23/2023 and evaluated by physical therapy at that time and was determined that he could go home with physical therapy and he had been doing outpatient therapy. The patient reported that he was hardly able to get out of bed. His son had noted that his functional status had declined and that his legs are always swollen but they had been more swollen than typical. He had been recently seen by his oiler helper on 08/05/2023 and his home Lasix was increased from 40 mg twice daily to 60 mg twice daily. He reported that his urination had become more frequent but he felt like he was dehydrated. The patient reported he was drinking a significant amount of water trying to keep up with his urine output and that his appetite was fairly poor which is atypical for him. Upon presentation he was noted to be in A-fib with RVR having heart rates in the 120s with oxygen saturations in the mid to high 90s on room air. His CBC was overall unremarkable. His INR was 2 but he is on apixaban at baseline. His BUN was 51 and his serum creatinine was 2.46 which is quite a bit above his baseline of 1.5-1.8. His BNP was elevated at 2187. He had a recent cardiac catheterization which was done on 07/19/2023 and demonstrated diffuse triple-vessel disease with previous stents and vessels that were patent and comparison from a cardiac catheterization done 1 year prior was unchanged. His most recent echocardiogram was on 06/29/2023 and demonstrated an EF of 40% with a hypokinetic apex, evidence of diastolic dysfunction, moderate aortic valve stenosis, mild mitral valve insufficiency, and mild to moderate aortic valve insufficiency. He was admitted to the PCU for telemetry monitoring and his home Lasix was held due to his elevated creatinine however I do suspect that he has cardiorenal syndrome. Cardiology evaluated the patient today and has placed him on aggressive diuresis with Lasix drip and have also started amiodarone 200 mg daily and decrease his apixaban to 2.5 mg twice daily which is appropriate in the setting of his current renal function. Lower extremity Dopplers were performed and negative for any clot. An abdominal soft ultrasound was performed and gated for any significant ascites. And a renal ultrasound was performed and showed a no evidence of hydronephrosis or signs of obstruction but did demonstrate some mild increased renal cortical echogenicity consistent with medical renal disease. The patient does have chronic renal disease at baseline and follows with Dr. Hutchinson as an outpatient. It appears that his baseline renal function runs between 1.4 and 1.6. After the initiation of the Lasix drip as we felt his renal function on presentation was related to cardiorenal syndrome his creatinine trended up and peaked at 2.73. The Lasix drip was discontinued with the uptrend and urine studies were obtained. It actually appeared that the patient was dry and I did give him a total of 2 L of IV fluids. His left lower extremity developed erythema and I was concerned that he could possibly have left lower extremity cellulitis and he was started on Zosyn and an MRSA PCR was obtained. MRSA PCR was negative so he was maintained on Zosyn and his leg slowly improved. He was having significant pain on presentation we started some low-dose gabapentin which did help him overall with his symptoms and he will be discharged with a prescription for this. With the IV fluids and holding his Lasix his renal function did improve and the time of discharge was 1.94. We are able to restart his Lasix on 08/12/2023 and his renal function still improved in that 24-hour period. With regards to his atrial fibrillation his heart rate control was much better with the addition of amiodarone and he was maintained on apixaban. He still has considerable anasarca which is a chronic problem for him. I highly suspect that this is related to right-sided and diastolic heart failure as the patient has untreated sleep apnea and refuses to wear CPAP as he reports the mask is extremely uncomfortable. With his improvement I transitioned the Zosyn to Augmentin and he will be maintained on this for another 12 days to complete a total of 14 days of antibiotics for his left lower extremity cellulitis. We have also arranged follow-up at the wound center as he has significant swelling in that leg and I suspect he could develop some blistering and seeping and I would like to help him avoid further infection or issues related to this. With regards to his renal function he will follow-up with Dr. Hutchinson as an outpatient and is to call to make an appointment to be seen in the next 2 weeks. Nephrology wanted him to continue 40 mg p.o. twice daily of his Lasix and then increase to 60 mg p.o. twice daily on Wednesday if he tolerates 40 twice daily without any issues. I discussed what to watch for with the patient he voiced understanding. He was seen by physical and Occupational Therapy and initially there was some concern that me he may need placement or home health however he did much better on 08/13/2023 and they felt he could go home to his current living situation and continue his outpatient physical therapy. The patient was very pleased with this. I did encourage him to see therapy on Wednesday and then decide from there how functional he was before he returned back to work. He voiced understanding. We have made follow-up appointments for him to see cardiology and the wound center. I have asked him also to follow-up with his primary care physician within the next 1 to 2 weeks. Prescriptions for his Augmentin, gabapentin, amiodarone, and a very brief course of oxycodone were faxed to his local pharmacy. Discharge diagnoses: Acute on chronic heart failure-combined systolic and diastolic/right-sided Left lower extremity cellulitis-improving YADIRA on CKD stage IIIb-resolving Chronic anasarca Paroxysmal atrial fibrillation with RVR-rates now controlled Thrombocytopenia-improving Hyperbilirubinemia DM-2 CAD Hyperlipidemia Hypertension History of aortic stenosis Gout History of tobacco abuse Morbid obesity JUAN ALBERTO-noncompliant Physical Exam Const alert, oriented x3, no apparent distress and well nourished; Negative for average body habitus or healthy appearing Constitutional Narrative: Morbidly obese, white male, sitting up in bed, watching television,, patient appears chronically ill, appears very comfortable today, anxious to go home General Appearance: cooperative, comfortable, well kempt and well developed Orientation / Consciousness: awake, oriented to person, oriented to place and oriented to time Exam Limitations: no limitations Nutritional Appearance: morbidly obese HEENT normocephalic, head/scalp atraumatic, hearing grossly normal bilaterally, nasal mucous membranes and turbinates normal and moist oral mucous membranes HEENT Narrative: Mallampati 2-3, no thrush Eyes PERRL, EOMs intact bilaterally and conjunctivae normal Eyes Narrative: No scleral icterus Neck full ROM, no lymphadenopathy and supple Neck Narrative: Trachea midline, no thyroid enlargement Resp normal respiratory effort, normal air movement, no retractions, no use of accessory muscles and clear to auscultation bilaterally Resp Narrative: Diffusely diminished but clear Auscultation: Negative for crackles, rhonchi or wheezes Cardio regular rate, S1 normal heart sound, S2 normal heart sound, no rub, no gallops, no clicks and peripheral pulses 2+ throughout; Negative for regular rhythm or no murmurs Cardio Narrative: irregular irregular rhythm, 2 out of 6 systolic murmur loudest at right upper sternal border GI normal to inspection, nondistended, normoactive bowel sounds, soft to palpation and non-tender GI Narrative: No pitting noted in abdominal wall, abdomen protuberant with no fluid wave Extremity Extremity Narrative: Patient still with significant left lower extremity edema that is about 3+, trace to 1+ on the right, edema extends up to the thighs bilaterally, erythema in left lower extremity is much improved, pain in left lower extremity is overall significantly improved however picker tender helper Skin no rashes or lesions noted, skin turgor normal, no jaundice, no petechiae and no mottling Skin Narrative: Small wound at the tip of his third digit on the left lower extremity but does not appear to be infected but would be nidus for infection of the lower extremity, left lower extremity is shiny and tender to palpation Neuro oriented x3, CN's II-XII intact bilaterally, moves all extremities and no focal motor deficits Speech: speech normal Psych mental status grossly normal and affect normal Psych Narrative: Pleasant, interacts appropriately Weight / BMI Weight Weight: 136.9 kg Body Mass Index (BMI) 44.5 ABG / Lab / Microbiology Data 08/13/23 05:59 08/13/23 05:59 Laboratory: Laboratory Results - last 24 hr 08/12/23 11:16: POC Glucose 207 H 08/12/23 17:18: POC Glucose 167 H 08/12/23 22:20: POC Glucose 222 H 08/13/23 05:59: WBC 8.1, RBC 4.04 L, Hgb 11.9 L, Hct 38.7 L, MCV 95.8 H, MCH 29.5, MCHC 30.7 L, RDW Std Deviation 60.6 H, RDW Coeff of Raphael 17.3 H, Plt Count 133 L, MPV 10.8, Immature Gran % (Auto) 0.900, Neut % (Auto) 75.7 H, Lymph % (Auto) 9.5 L, [place] % (Auto) 12.5 H, Eos % (Auto) 0.9, Baso % (Auto) 0.5, Absolute Neuts (auto) 6.1, Absolute Lymphs (auto) 0.77 L, Nucleated RBC % 0.2, Sodium 137, Potassium 4.1, Chloride 103, Carbon Dioxide 30.0, Anion Gap 4 L, BUN 64 H, Creatinine 1.98 H, Estim Creat Clear Calc 32.73, Est GFR (MDRD) Af Amer 43 L, Est GFR (MDRD) Non-Af 35 L, BUN/Creatinine Ratio 32.3 H, Glucose 135 H, Calcium 8.9 08/13/23 06:46: POC Glucose 117 H Microbiology: Microbiology 08/10/23 12:10 Blood Culture (Wb) - Right Hand Blood Culture - Preliminary No growth in 48 hours. 08/10/23 12:00 Blood Culture (Wb) - Right Hand Blood Culture - Preliminary No growth in 48 hours. D/C Instructions Discharge Diet: Low fat / Low cholesterol (Please try to limit your fluid intake to 2 L daily), 1800 Calorie Control Diet and 2000 mg Sodium Diet Discharge Activity: Use Walker (Until instructed otherwise by physical therapy) Return to work on: 08/17/23 (Okay to return if you feel like you are able to after you have physical therapy on Wednesday) Keep extremity elevated above heart level: Left Leg (Is much as possible until swelling improves) Meaningful Use Info Meaningful Use Diagnoses (Choose all that apply): None applicable Discharge Plan Admission Admit Date/Time: 08/08/23 17:31 Primary Reason for Your Visit: Debility and weakness Attending Provider: Nadia Otero Primary Care Provider: Boston Figueroa Consulting Providers: Sabas Bae; Junito Yepez; Emeterio Hutchinson Instructions Additional Instructions / Restrictions: 1. You have and appt at [facility] on 08-19-23 @3pm 2. Please take Lasix 40 mg twice daily (1 tablet every 12 hours) on Wednesday and Wednesday and as long as you continue to feel well increase the dose to 60 mg on Wednesday (1-1/2 tablet every 12 hours) -Follow-up with nephrology is very important to reassess your kidney function 3. Okay to return to work as long as you feel like you are able to after therapy on Wednesday 4. Please keep your left leg elevated is much as you can while you are sitting Discharge Orders/Prescriptions Prescriptions: New amiodarone 200 mg Tablet 200 mg PO DAILY Qty: 30 0RF amoxicillin-pot clavulanate 875-125 mg Tablet 1 tab PO BID Qty: 24 0RF Rx Instructions: Take with food and sit upright for the 30 to 60 minutes following taking and drink 8 ounces of water with the medication oxycodone 5 mg Tablet 5 mg PO Q6H PRN (Reason: pain) 3 Days Qty: 12 0RF gabapentin 100 mg Capsule 100 mg PO TIDCM Qty: 90 0RF Continued furosemide 40 mg tablet 60 mg PO BID Qty: 1 0RF Rx Instructions: Take 40 mg twice daily Wednesday and increase to 60 mg on Wednesday No Action aspirin [Adult Aspirin Regimen] 81 mg tablet,delayed release (DR/EC) 81 mg PO DAILY multivitamin [Daily Multi-Vitamin] tablet 1 tab PO DAILY glipizide 5 mg tablet 5 mg PO BID Eliquis 5 mg tablet 5 mg PO BID allopurinol 100 mg tablet 200 mg PO DAILYCM atorvastatin 80 mg tablet 80 mg PO QHS Rx Instructions: TAKE 1 TABLET AT BEDTIME isosorbide mononitrate 30 mg Tablet Extended Release 24 Hr 30 mg PO DAILY Qty: 30 2RF melatonin 10 mg capsule 10 mg PO QHS PRN (Reason: sleep) pantoprazole 40 mg tablet,delayed release (DR/EC) 40 mg PO DAILY Qty: 90 3RF nitroglycerin 0.4 mg tablet, sublingual 0.4 mg sublingual Q5-15M PRN (Reason: chest pain) Qty: 25 3RF Rx Instructions: do not exceed 3 doses per episode metoprolol tartrate 100 mg tablet 100 mg PO BID Qty: 180 3RF Referrals / Follow Up: Boston Figueroa MD [Primary Care Provider] - 08/24/23 3:20 pm Emeterio Hutchinson MD [Med Staff - Consulting] - Within 2 Weeks (Please call Wednesday to schedule follow up appt) Kendra Bonilla PA [Med Staff - Adv Practice Prof] - 08/24/23 9:00 am Disposition Disposition (needs filled in before D/C Order can be placed): Home, Self Care Charges/Coding Visit Charges Inpatient E&M: 84073 Disch Hosp >30min
[2023-08-13 11:36] VITALS: BP 112/79; PULSE 105; RESP 16; TEMP 36; O2SAT 92
[2023-08-13] MEDS: Lidocaine 5% Patch 2 PATCH TOPICAL (11:40)
[2023-08-13] MEDS: Aspirin E.C. 81 MG Tablet PO (11:40)
[2023-08-13] MEDS: Amox/Clavulanate 875 MG Tablet PO (11:40)
[2023-08-13] MEDS: APIXABAN 2.5 MG TABLET (WCH) PO (11:41)
[2023-08-13] MEDS: Isosorbide Mononitrate 30 MG Tablet PO (11:41)
[2023-08-13] MEDS: Amiodarone 200 MG Tablet PO (11:41)
[2023-08-13] MEDS: Furosemide 40 MG Tablet PO (11:41)
[2023-08-13 11:42] VITALS: BP 112/79; PULSE 105
[2023-08-13] MEDS: Metoprolol Tartrate 100 MG Tablet PO (11:42)
[2023-08-13] MEDS: Pantoprazole Sodium 40 MG Tablet PO (11:42)
[2023-08-13] MEDS: Insulin Lispro 100 UNIT/ML INSULN.PEN SC (11:42)
[2023-08-13] MEDS: Gabapentin 100 MG Capsule PO (11:43)
[2023-08-13] MEDS: Miconazole Nitrate 43 GM Bottle 1 APPLIC TOPICAL (11:44)
--- NOTE | 2023-08-13 12:00 | CASEMGMT ---
Patient has order for discharge. BAILEE CALIX reviewed progress with therapy. Patient would like to discharge home with resumption of outpatient therapy at [facility] on Wednesday. Per patient, son lives with him and is able to assist patient. Patient denied further needs. BAILEE CALIX educated patient on importance of following fluid restrictions and weighing self daily, patient voiced understanding. Patient had no further questions or concerns.
[2023-08-13 12:42] LABS: Bedside Glucose 215 mg/dL (74-106)
--- NOTE | 2023-08-13 13:28 | PHA.DC_ITS ---
Pharmacy [facility] has performed discharge medication reconciliation and counseling for this patient. The patient's discharge medication list was reviewed for discrepancies and discrepancies were resolved. The patient was counseled on the following discharge medications and changes in medications for homegoing were reviewed. The Reason for Use, instructions for use, and potential side effects were reviewed for all new medications. The patient's questions regarding all of their medications were answered. 1. Augmentin 875 PO BID x 12 days 2. Amiodarone 200 mg daily 3. Gabapentin 100 mg PO BID 4. Oxycodone 5 mg PO Q6H PRN The patient was able to verbally demonstrate an understanding of their discharge medications. Medications at Discharge Home Medications aspirin 81 mg tablet,delayed release (Adult Aspirin Regimen) 81 mg PO DAILY heart health 04/14/18 multivitamin (Daily Multi-Vitamin tablet) 1 tab PO DAILY vitamin 01/25/19 allopurinol 100 mg tablet 200 mg PO DAILYCM GOUT 08/03/22 pantoprazole 40 mg tablet,delayed release 40 mg PO DAILY ppi #90 tabs 08/11/22 glipizide 5 mg tablet 5 mg PO BID diabetes 09/15/22 nitroglycerin 0.4 mg sublingual tablet 0.4 mg sublingual Q5-15M PRN chest pain #25 tabs 06/09/23 atorvastatin 80 mg tablet 80 mg PO QHS anticholesterol 06/29/23 isosorbide mononitrate 30 mg tablet,extended release 24 hr 30 mg PO DAILY see doctor #30 tabs 07/19/23 metoprolol tartrate 100 mg tablet 100 mg PO BID blood pressure #180 tabs 07/26/23 apixaban 5 mg tablet (Eliquis) 5 mg PO BID blood thinner 08/05/23 melatonin 10 mg capsule 10 mg PO QHS PRN sleep 08/08/23 amiodarone 200 mg tablet 200 mg PO DAILY #30 tabs 08/13/23 amoxicillin 875 mg-potassium clavulanate 125 mg tablet 1 tab PO BID #24 tabs 08/13/23 furosemide 40 mg tablet 60 mg (1.5 x 40 mg) PO BID diuretic #1 TAB 08/13/23 gabapentin 100 mg capsule 100 mg PO TIDCM #90 caps 08/13/23 oxycodone 5 mg tablet 5 mg PO Q6H PRN pain 3 days #12 tabs 08/13/23
--- NOTE | 2023-08-16 09:07 | CASEMGMT ---
BAILEE CALIX received voicemail from patient that he is needing more assistance than what son can provide. BAILEE CALIX returned call to inquire about patient's needs. Patient he is needed help with transfers and medications and it is more than is son can provide. BAILEE CALIX instructed patient that he would need to follow up with PCP. Kevon Henriquez came on the phone stating that his father is having difficulty ambulating. BAILEE CALIX review progress with therapy prior to discharge and patient stating that he would not be homebound at discharge. Per Martinez, patient is needing SNF. BAILEE CALIX informed son that patient would need insurance approval for SNF placement and instructed patient to follow-up with PCP. Son voiced understanding and had no further questions or concerns.
== END 2023-08-13 13:25 | disposition home or self-care (01) | DRG 291 ==
LOC: ED 16:56 → PCU 17:53
PROVIDERS: Admitting Provider Hospitalist; Emergency Provider Emergency Medicine; PCP Family Medicine; Visit Provider Internal Medicine
DX: I13.0 Hypertensive heart and chronic kidney disease with heart failure and stage 1 through stage 4 chronic kidney disease, or unspecified chronic kidney disease (principal); I50.43 Acute on chronic combined systolic (congestive) and diastolic (congestive) heart failure; N17.9 Acute kidney failure, unspecified; L03.116 Cellulitis of left lower limb; Z68.41 Body mass index [BMI] 40.0-44.9, adult; I48.21 Permanent atrial fibrillation; R18.8 Other ascites; I27.21 Secondary pulmonary arterial hypertension; D69.6 Thrombocytopenia, unspecified; E11.22 Type 2 diabetes mellitus with diabetic chronic kidney disease; J44.9 Chronic obstructive pulmonary disease, unspecified; N18.32 Chronic kidney disease, stage 3b; E11.40 Type 2 diabetes mellitus with diabetic neuropathy, unspecified; E66.01 Morbid (severe) obesity due to excess calories; I50.813 Acute on chronic right heart failure; K76.1 Chronic passive congestion of liver; I08.3 Combined rheumatic disorders of mitral, aortic and tricuspid valves; E78.5 Hyperlipidemia, unspecified; I87.2 Venous insufficiency (chronic) (peripheral); K21.9 Gastro-esophageal reflux disease without esophagitis; M10.9 Gout, unspecified; G47.33 Obstructive sleep apnea (adult) (pediatric); I25.10 Atherosclerotic heart disease of native coronary artery without angina pectoris; I25.5 Ischemic cardiomyopathy; I25.2 Old myocardial infarction; R09.02 Hypoxemia; R53.81 Other malaise; Z91.199 Patient's noncompliance with other medical treatment and regimen due to unspecified reason; Z79.01 Long term (current) use of anticoagulants; Z79.82 Long term (current) use of aspirin; Z79.84 Long term (current) use of oral hypoglycemic drugs; Z87.891 Personal history of nicotine dependence; Z95.5 Presence of coronary angioplasty implant and graft
CPT/HCPCS: 36415; 71045; 76700; 76770; 80048; 80053; 81001; 82570; 82962; 83690; 83735; 83880; 84100; 84300; 84443; 84540; 85025; 85027; 85610; 85652; 86140; 86160; 86162; 87040; 87640; 87641; 93005; 93970; 94668; 97162; 97166; 97530; 97535; 97802; 99284; J7030; J7120; P9047; A4216; J0696; J1940; J2405

== ENCOUNTER 2023-08-16 15:49 | Inpatient (IN) | payer MEDICARE, SELFPAY ==
[2020-03-07 09:49] VITALS: BMI 41.8
[2023-08-16] VITALS (12 sets, daily range): BP systolic 102–121; BP diastolic 65–94; PULSE 57–97; RESP 15–20; TEMP 36.1–37; O2SAT 89–98; BMI 45.8; BMI 44.7
--- NOTE | 2023-08-16 16:02 | EX.ED.DYSGE1 ---
HPI <GRAEME Vazquez - Last Filed: 08/16/23 18:19> History of Present Illness Chief Complaint: Cellulitis Narrative Narrative: 73 year old male with PMH of HTN, HLD, DM2, CKD, CAD, A fib, CHF was discharged on 08/13/23 after treatment for LLE cellulitis on IV Zosyn and discharged on Augmentin. He has not been able to ambulate and his son has to lift him to transfer to the toilet. He had to cancel his outpatient physical therapy appt because he cannot walk to the car. He is here for placement. He denies fever or chills but thinks the redness of his left leg might be worse. PFSH <GRAEME Vazquez - Last Filed: 08/16/23 18:19> [facility] Medical History (Updated 08/16/23 @ 17:11 by GRAEME Vazquez) A-fib Abdominal pain Abnormal stress test (07/2022) Acute exacerbation of CHF (congestive heart failure) Ambulates with cane Atherosclerosis of coronary artery without angina pectoris Bilateral lower extremity edema Cardiology follow-up encounter Chest pain Chronic anemia Chronic HFrEF (heart failure with reduced ejection fraction) Chronic kidney disease Chronic kidney disease (CKD) COPD (chronic obstructive pulmonary disease) Coronary artery disease Dermatitis Diastolic dysfunction Elevated liver enzymes Elevated troponin Essential (primary) hypertension Fatty liver Former smoker Gastric ulcer Generalized muscle weakness GI (gastrointestinal bleed) Gout Heart murmur History of CHF (congestive heart failure) History of heart attack History of non-ST elevation myocardial infarction (NSTEMI) (05/05/21) History of non-ST elevation myocardial infarction (NSTEMI) History of stress test Hyperlipidemia Ischemic cardiomyopathy Kidney stones Low iron Non-rheumatic aortic stenosis NSTEMI, initial episode of care Obesity Obstructive sleep apnea Orthopnea Osteoarthritis Paroxysmal atrial fibrillation Secondary pulmonary arterial hypertension Shortness of breath on exertion Type 2 diabetes mellitus Home Medications aspirin 81 mg tablet,delayed release (Adult Aspirin Regimen) 81 mg PO DAILY heart health 04/14/18 [History Last Taken 08/16/23] multivitamin (Daily Multi-Vitamin tablet) 1 tab PO DAILY vitamin 01/25/19 [History Last Taken 08/08/23] allopurinol 100 mg tablet 100 mg PO Q12H GOUT 08/03/22 [History Last Taken 08/16/23] pantoprazole 40 mg tablet,delayed release 40 mg PO DAILY ppi #90 tabs 08/11/22 [Rx Last Taken 08/16/23] glipizide 5 mg tablet 5 mg PO BID diabetes 09/15/22 [History Last Taken 08/16/23] nitroglycerin 0.4 mg sublingual tablet 0.4 mg sublingual Q5-15M PRN chest pain #25 tabs 06/09/23 [Rx Last Taken Unknown] atorvastatin 80 mg tablet 80 mg PO QHS anticholesterol 06/29/23 [History Last Taken 08/15/23] isosorbide mononitrate 30 mg tablet,extended release 24 hr 30 mg PO DAILY see doctor #30 tabs 07/19/23 [Rx Last Taken 08/16/23] metoprolol tartrate 100 mg tablet 100 mg PO BID blood pressure #180 tabs 07/26/23 [Rx Last Taken 08/16/23] melatonin 10 mg capsule 10 mg PO QHS PRN sleep 08/08/23 [History Last Taken 08/08/23] amiodarone 200 mg tablet 200 mg PO DAILY #30 tabs 08/13/23 [Rx Last Taken 08/16/23] amoxicillin 875 mg-potassium clavulanate 125 mg tablet 1 tab PO BID #24 tabs 08/13/23 [Rx Last Taken 08/16/23] furosemide 40 mg tablet 60 mg (1.5 x 40 mg) PO BID diuretic #1 TAB 08/13/23 [Rx Last Taken 08/16/23] gabapentin 100 mg capsule 100 mg PO TIDCM #90 caps 08/13/23 [Rx Last Taken 08/16/23] oxycodone 5 mg tablet 5 mg PO Q6H PRN pain 3 days #12 tabs 08/13/23 [Rx Last Taken 08/16/23] warfarin 4 mg tablet 4 mg PO QPM 08/16/23 [History Last Taken 08/15/23] Allergy/AdvReac Type Severity Reaction Status Date / Time metformin AdvReac Elevated Verified 08/16/23 15:51 LDH and anion gap Family History Mother , Age 80 Diabetes Hypertension Father , Age 55, coma Diabetes Hypertension Sister Hypertension Brother Diabetes Hypertension Cancer, Onset Age: 50 prostate cancer CAD (coronary artery disease) Surgical History History of appendectomy History of cardiac catheterization History of coronary artery stent placement (01/24/20) History of esophagogastroduodenoscopy (EGD) History of herniorrhaphy History of left heart catheterization (07/13/22) History of tonsillectomy History of total knee replacement (TKR) Status post cholecystectomy Social History household members: children Smoking Status: Former smoker quit date: 01/31/11 alcohol intake: current alcohol intake frequency: holidays/special occasions only substance use type: does not use caffeine: Yes Type: coffee ROS <GRAEME Vazquez - Last Filed: 08/16/23 18:19> ROS ED ROS Narrative Constitutional: Negative for fever, chills, malaise. CVS: Negative for chest pain, syncope. Respiratory: Negative for shortness of breath, cough. GI: Negative for nausea, vomiting. Skin: Positive for erythema. EXAM <GRAEME Vazquez - Last Filed: 08/16/23 18:19> Physical Exam Narrative Exam Narrative: CONST: Patient sitting in no acute distress. EYES: Normal inspection. NECK: Normal inspection. RESP: No respiratory distress, CTAB. CVS: Regular rate and rhythm, no murmur, no gallop. SKIN: Color normal, no rash, warm, dry, intact. EXTREMITIES: 2+ pitting edema of the left leg up to the mid thigh. Erythema on the entire lower leg from knee to ankle and slight erythema extending up the medial thigh past the demarcated marker line. Slightly warm but not hot. No fluctuance or crepitus. 2+ DP pulses. Compartments soft. NEURO: Oriented x4. PSYCH: Normal affect. Const Vital Signs: 08/16/23 15:53 08/16/23 16:39 08/16/23 16:56 Temperature 96.9 F L 98.6 F Temperature Source Temporal Oral Pulse Rate 87 86 Respiratory Rate 19 H 17 Respiratory Effort Respiratory Pattern Blood Pressure 102/85 H 102/65 Blood Pressure Mean 90 77 Pulse Ox 95 94 Oxygen Delivery Method Room Air 08/16/23 17:41 Temperature Temperature Source Pulse Rate Respiratory Rate Respiratory Effort Normal Respiratory Pattern Normal Blood Pressure Blood Pressure Mean Pulse Ox Oxygen Delivery Method <Dr. Tl Ledesma MD - Last Filed: 08/16/23 17:42> Physical Exam Const Vital Signs: 08/16/23 15:53 08/16/23 16:39 08/16/23 16:56 Temperature 96.9 F L 98.6 F Temperature Source Temporal Oral Pulse Rate 87 86 Respiratory Rate 19 H 17 Respiratory Effort Respiratory Pattern Blood Pressure 102/85 H 102/65 Blood Pressure Mean 90 77 Pulse Ox 95 94 Oxygen Delivery Method Room Air 08/16/23 17:41 Temperature Temperature Source Pulse Rate Respiratory Rate Respiratory Effort Normal Respiratory Pattern Normal Blood Pressure Blood Pressure Mean Pulse Ox Oxygen Delivery Method MDM <GRAEME Vazquez - Last Filed: 08/16/23 18:19> [facility] Narrative Medical decision making narrative: History gathered from: Patient, son Patient was discharged home 3 days ago after multiple medical problems and LLE cellulitis. He is taking Augmentin as well as Lasix for his chronic lower extremity edema. He appears well and nontoxic. Vital signs stable. Exam notable for left leg pitting edema up to the level of the mid thigh and erythema of the lower leg to the knee and extending slightly medially up the thigh. It is past the marker line but he is not sure when that was drawn and thinks it may have been sometime in the hospital. He cannot ambulate due to the swelling and requires placement. Basic labs obtained. White count is 7.2, creatinine 1.88 around baseline, unremarkable electrolytes. INR is 1.7. Case discussed with hospitalist for admission. External records reviewed: Discharge summary on 08/13/23 states he was on IV Zosyn and discharged on Augmentin for leg leg cellulitis. They also increased his lasix to 60 mg BID due to cardio-renal syndrome. Lab Data Attestation: I reviewed the patient's lab results. Labs: Laboratory Results - last 24 hr 08/16/23 16:35 WBC 7.2 RBC 3.97 L Hgb 11.8 L Hct 38.4 L MCV 96.7 H MCH 29.7 MCHC 30.7 L RDW Std Deviation 61.1 H RDW Coeff of Raphael 17.2 H Plt Count 192 MPV 10.1 Immature Gran % (Auto) 0.600 Neut % (Auto) 76.5 H Lymph % (Auto) 13.0 L [place] % (Auto) 6.4 Eos % (Auto) 2.9 Baso % (Auto) 0.6 Absolute Neuts (auto) 5.5 Absolute Lymphs (auto) 0.94 Nucleated RBC % 0 PT 20.3 H INR 1.7 Sodium 139 Potassium 3.4 L Chloride 105 Carbon Dioxide 26.0 Anion Gap 8 BUN 56 H Creatinine 1.88 H Estim Creat Clear Calc 34.47 Est GFR (MDRD) Af Amer 45 L Est GFR (MDRD) Non-Af 37 L BUN/Creatinine Ratio 29.8 H Glucose 157 H Calcium 8.2 L <Dr. Tl Ledesma MD - Last Filed: 08/16/23 17:42> [facility] Lab Data Labs: Laboratory Results - last 24 hr 08/16/23 16:35 WBC 7.2 RBC 3.97 L Hgb 11.8 L Hct 38.4 L MCV 96.7 H MCH 29.7 MCHC 30.7 L RDW Std Deviation 61.1 H RDW Coeff of Raphael 17.2 H Plt Count 192 MPV 10.1 Immature Gran % (Auto) 0.600 Neut % (Auto) 76.5 H Lymph % (Auto) 13.0 L [place] % (Auto) 6.4 Eos % (Auto) 2.9 Baso % (Auto) 0.6 Absolute Neuts (auto) 5.5 Absolute Lymphs (auto) 0.94 Nucleated RBC % 0 PT 20.3 H INR 1.7 Sodium 139 Potassium 3.4 L Chloride 105 Carbon Dioxide 26.0 Anion Gap 8 BUN 56 H Creatinine 1.88 H Estim Creat Clear Calc 34.47 Est GFR (MDRD) Af Amer 45 L Est GFR (MDRD) Non-Af 37 L BUN/Creatinine Ratio 29.8 H Glucose 157 H Calcium 8.2 L Treatment and Re-Evaluation :: I have personally performed a face to face assessment of the patient and have reviewed the RAMÓN Note. I performed a substantive portion of the visit including all aspects of the following. My mcduffie findings include: History: Patient presents with some worsening of the cellulitis or swelling. But the biggest complaint is that he is weak. He does not have the energy to get up and move. His family is having trouble caring for him. His appetite is down. No fevers. His son states that he thinks the redness may have increased a little bit on his legs. He was just in the hospital for cellulitis. He is on Coumadin. Exam: Patient is actually awake alert. He is not toxic in appearance. He is not confused. Lungs are clear. Heart rate is controlled. Abdomen is obese but benign. Lower extremity both have a fair amount of edema but it is greater on the left. He does have erythema of his leg. It rises above a marker line on his thigh but they are not certain when this marker line was placed Medical Decision Making: Patient will have a work-up done here. But he will need to come in due to his profound weakness. He will likely need custodial care for period of time. Discharge Plan Triage Chief Complaint: Cellulitis Other Complaint: Abd Pain ED Midlevel Provider: Mirian Luna ED Provider: Tl Ledesma Dx/Rx/DC Orders Clinical Impression: Leg edema, left, Cellulitis of left leg, Inability to walk Prescriptions: No Action aspirin [Adult Aspirin Regimen] 81 mg tablet,delayed release (DR/EC) 81 mg PO DAILY multivitamin [Daily Multi-Vitamin] tablet 1 tab PO DAILY glipizide 5 mg tablet 5 mg PO BID allopurinol 100 mg tablet 100 mg PO Q12H atorvastatin 80 mg tablet 80 mg PO QHS Rx Instructions: TAKE 1 TABLET AT BEDTIME isosorbide mononitrate 30 mg Tablet Extended Release 24 Hr 30 mg PO DAILY Qty: 30 2RF melatonin 10 mg capsule 10 mg PO QHS PRN (Reason: sleep) amiodarone 200 mg Tablet 200 mg PO DAILY Qty: 30 0RF amoxicillin-pot clavulanate 875-125 mg Tablet 1 tab PO BID Qty: 24 0RF Rx Instructions: Take with food and sit upright for the 30 to 60 minutes following taking and drink 8 ounces of water with the medication oxycodone 5 mg Tablet 5 mg PO Q6H PRN (Reason: pain) 3 Days Qty: 12 0RF gabapentin 100 mg Capsule 100 mg PO TIDCM Qty: 90 0RF furosemide 40 mg tablet 60 mg PO BID Qty: 1 0RF Rx Instructions: Take 40 mg twice daily Wednesday and increase to 60 mg on Wednesday warfarin 4 mg tablet 4 mg PO QPM Patient Comments: TAKE 1 TABLET BY MOUTH EVERY EVENING DIRECTED pantoprazole 40 mg tablet,delayed release (DR/EC) 40 mg PO DAILY Qty: 90 3RF nitroglycerin 0.4 mg tablet, sublingual 0.4 mg sublingual Q5-15M PRN (Reason: chest pain) Qty: 25 3RF Rx Instructions: do not exceed 3 doses per episode metoprolol tartrate 100 mg tablet 100 mg PO BID Qty: 180 3RF Primary Care Provider: Boston Figueroa Referrals: Boston Figueroa MD [Primary Care Provider] -
--- NOTE | 2023-08-16 16:40 | CM.ED ---
Social Work SW performed chart review; HCPOA documents on file as of 2018 and indicate patient did not complete LW. Patient's HCPOA is patient's brother Robert and alternates are patient's daughter, Rachelle Alvarez and patient's son Martinez Melgar. SW previously spoke with patient and patient was unclear on if LW had been completed. Kimberly Joseph MSW, DEEPA
[2023-08-16 16:43] LABS: Absolute Lymphocyte Count 0.94 X10^3/uL (0.83-4.51); Absolute Neutrophil Count 5.5 X10^3/uL (2.0-7.7); Basophil# 0.04 X10^3/uL; Basophil% 0.6 % (0-1); Eosinophil# 0.21 X10^3/uL; Eosinophils% 2.9 % (0-5); Hematocrit 38.4 % (40-54); Hemoglobin 11.8 g/dL (13.0-16.5); Lymphocyte # 0.94 X10^3/ul (0.83-4.51); Mean Corp Hgb Conc 30.7 g/dL (32-36); Mean Corpuscular Hgb 29.7 pg (27.0-32.0); Mean Corpuscular Volume 96.7 fL (80-94); Mean Platelet Vol. 10.1 fl (6.2-12.0); Monocyte# 0.46 X10^3/uL; Monocyte% 6.4 % (0-10); NRBC Flagged by Analyzer 0 % (0-5); Neutrophil # 5.53 X10^3/uL (2.7-7.7); Neutrophil % 76.5 % (47-70); Platelet Count 192 K/mm3 (150-450); RBC Distribution Width CV 17.2 % (11.6-14.6); RBC Distribution Width SD 61.1 fl (35.1-43.9); Red Blood Count 3.97 M/mm3 (4.6-6.2); White Blood Count 7.2 K/mm3 (4.4-11.0)
[2023-08-16 17:02] LABS: Anion Gap 8 (5-15); BUN 56 mg/dL (7-18); BUN/Creat Ratio 29.8 RATIO (10-20); Calcium,Total 8.2 mg/dL (8.5-10.1); Chloride 105 mmol/L (98-107); Creatinine, Serum 1.88 mg/dL (0.70-1.30); EST Glomerular Filtration Rate 37 mL/min (>60); Est Glom Filt Rate - Afr Amer 45 mL/min (>60); Estimated Creatinine Clearance 34.47 ml/min; Glucose 157 mg/dL (74-106); Potassium 3.4 mmol/L (3.5-5.1); Sodium Level 139 mmol/L (136-145)
[2023-08-16 17:03] LABS: International Normalized Ratio 1.7; Prothrombin Time (Protime)PT. 20.3 SECONDS (11.7-14.9)
--- NOTE | 2023-08-16 18:51 | HP.PCM.HOS_ITS ---
HPI - General General Date of Admission: 08/16/23 Date of Service: 08/16/23 Chief Complaint: Recent LLE cellulitis, return to home but FTT, unable to ambulate, care for self. 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, CAD s/p PCI, HTN, HLD, CKD stage III unclear subtype, Former tobacco use, COPD, Chronic anemia, Diabetes mellitus type II, Hx GI bleed/gastric ulcer who presents to the [facility] ED on 08/16/23 with history of recent discharge 08/13/2023 following treatment and evaluation for left lower extremity cellulitis treated with IV Zosyn and discharged on Augmentin however since then he has been unable to ambulate and his son is even been needing to lift him to transfer to the toilet, patient notes worsening appearance of his LLE with increased redness, increased warmth and discomfort since his discharge as well as profuse diarrhea since his transition to home prompting ED return. He denies any fever or chills. Work-up in the ED included T96.9, heart rate 87, BP 102/85, respiratory rate 17, 94% on room air however he did desaturate to 89% with improvement to 98% on 2 L nasal cannula, CBC with WBC 7.2, hemoglobin 11.8, MCV 96.7, platelet 192, coags with PT 20.3, INR 1.7, BMP with potassium 3.4, BUN/creatinine 56/1.88, glucose 157. Patient was administered no medications in the ED. [facility] Medical History A-fib Abdominal pain Abnormal stress test (07/2022) Acute exacerbation of CHF (congestive heart failure) Ambulates with cane Atherosclerosis of coronary artery without angina pectoris Bilateral lower extremity edema Cardiology follow-up encounter Chest pain Chronic anemia Chronic HFrEF (heart failure with reduced ejection fraction) Chronic kidney disease Chronic kidney disease (CKD) COPD (chronic obstructive pulmonary disease) Coronary artery disease Dermatitis Diastolic dysfunction Elevated liver enzymes Elevated troponin Essential (primary) hypertension Fatty liver Former smoker Gastric ulcer Generalized muscle weakness GI (gastrointestinal bleed) Gout Heart murmur History of CHF (congestive heart failure) History of heart attack History of non-ST elevation myocardial infarction (NSTEMI) (05/05/21) History of non-ST elevation myocardial infarction (NSTEMI) History of stress test Hyperlipidemia Ischemic cardiomyopathy Kidney stones Low iron Non-rheumatic aortic stenosis NSTEMI, initial episode of care Obesity Obstructive sleep apnea Orthopnea Osteoarthritis Paroxysmal atrial fibrillation Secondary pulmonary arterial hypertension Shortness of breath on exertion Type 2 diabetes mellitus Home Medications aspirin 81 mg tablet,delayed release (Adult Aspirin Regimen) 81 mg PO DAILY a rt health 04/14/18 [History Last Taken 08/16/23] multivitamin (Daily Multi-Vitamin tablet) 1 tab PO DAILY vitamin 01/25/19 [History Last Taken 08/08/23] allopurinol 100 mg tablet 100 mg PO Q12H GOUT 08/03/22 [History Last Taken 08/16/23] pantoprazole 40 mg tablet,delayed release 40 mg PO DAILY ppi #90 tabs 08/11/22 [Rx Last Taken 08/16/23] glipizide 5 mg tablet 5 mg PO BID diabetes 09/15/22 [History Last Taken 08/16/23] nitroglycerin 0.4 mg sublingual tablet 0.4 mg sublingual Q5-15M PRN chest pain #25 tabs 06/09/23 [Rx Last Taken Unknown] atorvastatin 80 mg tablet 80 mg PO QHS anticholesterol 06/29/23 [History Last Taken 08/15/23] isosorbide mononitrate 30 mg tablet,extended release 24 hr 30 mg PO DAILY see doctor #30 tabs 07/19/23 [Rx Last Taken 08/16/23] metoprolol tartrate 100 mg tablet 100 mg PO BID blood pressure #180 tabs 07/26/23 [Rx Last Taken 08/16/23] melatonin 10 mg capsule 10 mg PO QHS PRN sleep 08/08/23 [History Last Taken 08/08/23] amiodarone 200 mg tablet 200 mg PO DAILY #30 tabs 08/13/23 [Rx Last Taken 08/16/23] amoxicillin 875 mg-potassium clavulanate 125 mg tablet 1 tab PO BID #24 tabs 08/13/23 [Rx Last Taken 08/16/23] furosemide 40 mg tablet 60 mg (1.5 x 40 mg) PO BID diuretic #1 TAB 08/13/23 [Rx Last Taken 08/16/23] gabapentin 100 mg capsule 100 mg PO TIDCM #90 caps 08/13/23 [Rx Last Taken 08/16/23] oxycodone 5 mg tablet 5 mg PO Q6H PRN pain 3 days #12 tabs 08/13/23 [Rx Last Taken 08/16/23] warfarin 4 mg tablet 4 mg PO QPM 08/16/23 [History Last Taken 08/15/23] Allergy/AdvReac Type Severity Reaction Status Date / Time metformin AdvReac Elevated Verified 08/16/23 15:51 LDH and anion gap Family History Mother , Age 80 Diabetes Hypertension Father , Age 55, coma Diabetes Hypertension Sister Hypertension Brother Diabetes Hypertension Cancer, Onset Age: 50 prostate cancer CAD (coronary artery disease) Surgical History History of appendectomy History of cardiac catheterization History of coronary artery stent placement (01/24/20) History of esophagogastroduodenoscopy (EGD) History of herniorrhaphy History of left heart catheterization (07/13/22) History of tonsillectomy History of total knee replacement (TKR) Status post cholecystectomy Social History household members: children Smoking Status: Former smoker quit date: 01/31/11 alcohol intake: current alcohol intake frequency: holidays/special occasions only substance use type: does not use caffeine: Yes Type: coffee ROS ROS Narrative Admission Review of Systems: CONSTITUTIONAL: No weight loss, fever, chills, + weakness or fatigue. HEENT: Eyes: No visual loss, blurred vision, double vision or yellow sclerae. Ears, Nose, Throat: No hearing loss, sneezing, congestion, runny nose or sore throat. SKIN: + LLE worsening erythema, discomfort, edema, worsened since discharge. CARDIOVASCULAR: + Chronic edema. No chest pain, chest pressure or chest discomfort, palpitations, syncopal events. RESPIRATORY: + Dyspnea with exertion, improved since recent discharge. No marked cough or sputum, wheezing, hemoptysis. GASTROINTESTINAL: + anorexia, diarrhea. No nausea, vomiting, abdominal pain, melena, BRBPR. GENITOURINARY: No dysuria, frequency, urgency or retention. NEUROLOGICAL: No headache, dizziness, syncope, paralysis, ataxia, numbness or tingling in the extremities, focal weakness, change in bowel or bladder control, seizure. MUSCULOSKELETAL: + muscle, back pain, joint pain or stiffness. HEMATOLOGIC: + anemia, easy bleeding or bruising. LYMPHATICS: No enlarged nodes. No history of splenectomy. PSYCHIATRIC: No history of depression or anxiety. ENDOCRINOLOGIC: No reports of sweating, cold or heat intolerance. No polyuria or polydipsia. ALLERGIES: No history of asthma, hives, eczema or rhinitis. Vital Signs Vital Signs Vital Signs: 08/16/23 15:53 08/16/23 16:39 08/16/23 16:56 Temperature 96.9 F L 98.6 F Temperature Source Temporal Oral Pulse Rate 87 86 Respiratory Rate 19 H 17 Respiratory Effort Respiratory Pattern Blood Pressure 102/85 H 102/65 Blood Pressure Mean 90 77 Pulse Ox 95 94 Oxygen Delivery Method Room Air Oxygen Flow Rate (L/min) 08/16/23 17:41 08/16/23 18:00 08/16/23 18:33 Temperature 98.5 F Temperature Source Oral Pulse Rate 88 Respiratory Rate 15 20 H Respiratory Effort Normal Respiratory Pattern Normal Blood Pressure 121/73 H Blood Pressure Mean 89 Pulse Ox 95 89 Oxygen Delivery Method Room Air Room Air Oxygen Flow Rate (L/min) 08/16/23 18:34 Temperature Temperature Source Pulse Rate Respiratory Rate 16 Respiratory Effort Respiratory Pattern Blood Pressure Blood Pressure Mean Pulse Ox 98 Oxygen Delivery Method Nasal Cannula Oxygen Flow Rate (L/min) 2 Weight Weight: 309 lb 15.519 oz Body Mass Index (BMI) 45.8 Physical Exam Narrative Physical Examination: General: Awake, alert, oriented x 3 and cooperative, seated upright in the ED bed, fatigued, no acute distress. Skin: Normal color, normal turgor, no icterus, no cyanosis except for significant various staged ecchymotic changes, notable left lower extremity e rythema which she reports is increasing to his recent discharge, increased warmth and pitting edema noted. HEENT: AT/NC, EOMI, PERRLA, mildly dry MM, no carotid bruits or JVD noted; however, thickened neck makes evaluation difficult. Lungs: Diminished, greater bases, mildly increased effort but no distress, no markedly appreciated rales, rhonchi or wheezing. Heart: Regular; no gallop, rub audible. Abdomen: Soft, morbidly obese, recent operative intervention scars well- appearing, healed, no marked tenderness to palpation, hyperactive BS, difficult to discern distention and HSM given habitus. Extremities: No cyanosis, no clubbing, chronic bilateral lower extremity edema, left lower extremity with significant erythema, pitting edema is noted. Neurological: Patient awake, alert, oriented as noted, cognitive function intact; pupils equally reactive to light and accommodation, cranial nerves II- XII grossly normal, moving all 4 extremities, no focal deficits, strength severely globally decreased secondary to acute presentation, worsening. Psychiatric: Affect appears flat, fatigued, no acute evidence of depressive or anxiety feelings. Results Lab / Micro Data 08/16/23 16:35 08/16/23 16:35 Labs: Laboratory Results - last 24 hr 08/16/23 16:35: WBC 7.2, RBC 3.97 L, Hgb 11.8 L, Hct 38.4 L, MCV 96.7 H, MCH 29.7, MCHC 30.7 L, RDW Std Deviation 61.1 H, RDW Coeff of Raphael 17.2 H, Plt Count 192, MPV 10.1, Immature Gran % (Auto) 0.600, Neut % (Auto) 76.5 H, Lymph % (Auto) 13.0 L, [facility] % (Auto) 6.4, Eos % (Auto) 2.9, Baso % (Auto) 0.6, Absolute Neuts (auto) 5.5, Absolute Lymphs (auto) 0.94, Nucleated RBC % 0, PT 20.3 H, INR 1.7, Sodium 139, Potassium 3.4 L, Chloride 105, Carbon Dioxide 26.0, Anion Gap 8, BUN 56 H, Creatinine 1.88 H, Estim Creat Clear Calc 34.47, Est GFR (MDRD) Af Amer 45 L, Est GFR (MDRD) Non-Af 37 L, BUN/Creatinine Ratio 29.8 H, Glucose 157 H, Calcium 8.2 L Assessment & Plan Assessment/Plan (1) Cellulitis of left leg: PLAN: Plan The patient is a 73 y/o M w/ PMHx: PAF, Reported Combined HF/Ischemic Cardiomyopathy, CAD s/p PCI, HTN, HLD, CKD stage III unclear subtype, Former tobacco use, COPD, Chronic anemia, Diabetes mellitus type II, Hx GI bleed/gastric ulcer who presents to the [facility] ED on 08/16/23 with history of recent discharge 08/13/2023 following treatment and evaluation for left lower extremity cellulitis treated with IV Zosyn and discharged on Augmentin however since then he has been unable to ambulate and his son is even been needing to lift him to transfer to the toilet, patient notes worsening appearance of his LLE with increased redness, increased warmth and discomfort since his discharge as well as profuse diarrhea since his transition to home prompting ED return. He denies any fever or chills. #1. Adult Failure to Thrive, Multifactorial, secondary to Acutely Worsening LLE Extremity Cellulitis, worsening since recent discharge as well as those items noted below: Will admit to [facility], will restart on IV zosyn as patient noted improvement of cellulitis on this regimen, MRSA screen requested, plan repeat CBC in AM, continue affected extremity elevation above heart when seated and in bed, monitor erythema outline with VS checks, place ARCADIO wraps with elevation. PT/OT/CM consultation for discharge planning. #2. Diarrhea, persistent: Onset since discharge potentially secondary to antibiotic therapy, to be cautious we will obtain enteric and C. difficile, if negative will initiate loperamide regimen. #3. Recent HFrHF Exacerbation with Chronic BL LE Lymphedema/swelling complicated by YADIRA on CKD as noted, appears resolved: Given history we will very judiciously hydrate if necessary, will continue Coumadin with INR trending, aspirin, statin, metoprolol, not on ACEI/ARB with YADIRA recently as noted, continue lasix, closely monitor renal function, recent concern cardiorenal syndrome. #4. Recent gallstone pancreatitis status post ERCP with laparoscopic cholecystectomy: During previous presentation patient with mild abnormal LFTs with concern for abdominal distention status post recent 06/30/2023 ERCP with removal of gallstones and biliary sphincterotomy with follow-up laparoscopic cholecystectomy 07/02/2023, unfortunately ongoing limited appetite, will request hepatic profile to assure improved since prior presentation. #5. Chronic Kidney Disease Stage III, unclear subtype with recent YADIRA suspected secondary to cardiorenal syndrome, appears to be improving, nearing baseline: Admission BUN/Cr 56/1.88, baseline renal function appears primarily 1.4-1.7 however during recent admission increased up to a creatinine of 2.73, appears to continue to improve, repeat BMP in AM. #6. Hypokalemia: Admission K+ 3.4, magnesium level requested, supplementation given, repeat level in AM. #7. Hypertension: Continue home regimen including metoprolol, isosorbide, cautiously Lasix given recent YADIRA although improving, PRN hydralazine. #8. Chronic Macrocytic anemia: Admission CBC with hemoglobin 11.8, MCV 96.7, baseline hemoglobin appears 11, stable, continue to trend. #9. CAD: Status post PCI, will continue aspirin, statin, metoprolol, not on ACEI/ARB. #10. Chronic atrial fibrillation: We will continue patient home metoprolol, amiodarone and Eliquis regimen. #11. Diabetes mellitus type II with chronic neuropathy: Hold oral home regimen, most recent A1c noted 06/30/2023 7.1%, maintain on ADA diet, accu checks w/ ISS, continue patient home gabapentin regimen. #12. Gout: We will continue patient home allopurinol regimen recently reduced given underlying renal function. #13. Morbid Obesity: Weight loss and lifestyle changes encouraged. #14. GERD: We will continue patient home PPI. #15. JUAN ALBERTO: Noncompliant with PAP therapy. #16. DVT prophylaxis: We will continue patient Coumadin with INR upon presentation 1.7, previously had been on Eliquis. #17. CODE STATUS: Full code. Charges/Coding Visit Charges Inpatient E&M: 32322 Init Hosp L3
[2023-08-16 19:56] LABS: Magnesium 2.5 mg/dL (1.6-2.6)
[2023-08-16] MEDS: Piperacil/Tazobactam 3.375 GM in 0.9% Normal Saline (50mL MB+) 50 ML IV (22:32)
[2023-08-16] MEDS: Atorvastatin Calcium 80 MG Tablet PO (22:34)
[2023-08-16] MEDS: Menthol/Lanolin/Calamine/Znox 113 GM Tube 1 APPLIC TOPICAL (22:35)
[2023-08-16] MEDS: Metoprolol Tartrate 100 MG Tablet PO (22:35)
[2023-08-16] MEDS: Allopurinol 100 MG Tablet PO (22:37)
[2023-08-16] MEDS: Potassium Chloride Oral Tablet 20 MEQ 40 MEQ PO (22:41)
[2023-08-16] MEDS: Insulin Lispro 100 UNIT/ML INSULN.PEN SC (22:42)
[2023-08-16 23:11] LABS: Bedside Glucose 157 mg/dL (74-106)
[2023-08-17] VITALS (9 sets, daily range): BP systolic 95–123; BP diastolic 68–87; PULSE 61–109; RESP 16–20; TEMP 36.3–36.9; O2SAT 95–98; BMI 44.7
[2023-08-17 05:30] LABS: M R Staph aureus DNA By PCR Negative (Negative); Probe Check PASS; Specimen Processing Control PASS
[2023-08-17] MEDS: Insulin Lispro 100 UNIT/ML INSULN.PEN SC ×4 (06:18→21:25)
[2023-08-17 06:23] LABS: Absolute Lymphocyte Count 0.74 X10^3/uL (0.83-4.51); Absolute Neutrophil Count 5.8 X10^3/uL (2.0-7.7); Basophil# 0.02 X10^3/uL; Basophil% 0.3 % (0-1); Eosinophil# 0.17 X10^3/uL; Eosinophils% 2.4 % (0-5); Hematocrit 37.8 % (40-54); Hemoglobin 11.8 g/dL (13.0-16.5); Lymphocyte # 0.74 X10^3/ul (0.83-4.51); Lymphocyte % 10.3 % (19-41); Mean Corp Hgb Conc 31.2 g/dL (32-36); Mean Corpuscular Hgb 29.5 pg (27.0-32.0); Mean Corpuscular Volume 94.5 fL (80-94); Monocyte# 0.42 X10^3/uL; Monocyte% 5.8 % (0-10); NRBC Flagged by Analyzer 0 % (0-5); Neutrophil % 80.6 % (47-70); Platelet Count 205 K/mm3 (150-450); RBC Distribution Width CV 17.3 % (11.6-14.6); RBC Distribution Width SD 59.6 fl (35.1-43.9); White Blood Count 7.2 K/mm3 (4.4-11.0)
[2023-08-17] MEDS: Piperacil/Tazobactam 3.375 GM in 0.9% Normal Saline (50mL MB+) 50 ML IV ×3 (06:24→21:39)
[2023-08-17 06:40] LABS: International Normalized Ratio 1.7; Prothrombin Time (Protime)PT. 19.9 SECONDS (11.7-14.9)
[2023-08-17 07:02] LABS: ALB/GLOB Ratio 0.6 RATIO (0.9-2.4); AST(SGOT) 31 U/L (15-37); Alanine Aminotransfer ALT/SGPT 59 U/L (16-61); Albumin, Serum 2.6 g/dL (3.2-5.0); Alkaline Phosphatase 117 U/L (45-117); Anion Gap 8 (5-15); BUN 53 mg/dL (7-18); BUN/Creat Ratio 29.4 RATIO (10-20); Bilirubin, Direct 0.56 mg/dL (0.00-0.30); Calcium,Total 8.5 mg/dL (8.5-10.1); Chloride 106 mmol/L (98-107); EST Glomerular Filtration Rate 39 mL/min (>60); Est Glom Filt Rate - Afr Amer 48 mL/min (>60); Glucose 200 mg/dL (74-106); Potassium 3.8 mmol/L (3.5-5.1); Protein, Total 6.6 g/dL (6.4-8.2); Sodium Level 138 mmol/L (136-145)
[2023-08-17 07:05] LABS: Bedside Glucose 193 mg/dL (74-106)
[2023-08-17] MEDS: Isosorbide Mononitrate 30 MG Tablet PO (08:43)
[2023-08-17] MEDS: Pantoprazole Sodium 40 MG Tablet PO (08:43)
[2023-08-17] MEDS: Aspirin E.C. 81 MG Tablet PO (08:43)
[2023-08-17] MEDS: Allopurinol 100 MG Tablet PO ×2 (08:43→21:25)
[2023-08-17] MEDS: Gabapentin 100 MG Capsule PO ×3 (08:43→16:41)
[2023-08-17] MEDS: Amiodarone 200 MG Tablet PO (08:43)
[2023-08-17] MEDS: Metoprolol Tartrate 100 MG Tablet PO ×2 (08:43→21:25)
[2023-08-17] MEDS: Multivitamins,Therapeutic Tablet 1 TABLET PO (08:43)
[2023-08-17] MEDS: Furosemide 20 MG Tablet 60 MG PO ×2 (08:43→18:38)
[2023-08-17] MEDS: Menthol/Lanolin/Calamine/Znox 113 GM Tube 1 APPLIC TOPICAL ×4 (08:44→21:24)
--- NOTE | 2023-08-17 11:18 | CASEMGMT ---
SW was informed that patient would like placement at a alf facility for rehab. SW met with patient. Introduced self and role at [facility]. Patient confirmed he needs to go somewhere for rehab. SW provided patient with a list of?alf facility providers including quality and resource use data and consistent with patient?s preferred geographic region, medical needs, and insurance network were provided from the [facility] Guide. Patient at first said he doesn't know anything about the places in the area. SW suggested patient talk with family or friends. Patient then said his ex- lives at [facility]. Patient asked when he had to give choices. SW told patient by the end of the day would be great. Patient then told SW he would like [facility]. SW explained to patient that a referral will be made to [facility] and patient will stay at [facility] until his insurance approves. CALDERON asked nilson Akins/padmini harpoon engagement planning operator to please send a referral to [facility]. Cristal Bui EMPLOYEE SERVICES MANAGER DEEPA
--- NOTE | 2023-08-17 11:45 | CASEMGMT ---
Discharge Planning Referral sent via [facility] to [facility]. Mable Robertson, Discharge Planning Asst.
[2023-08-17 11:55] LABS: Bedside Glucose 178 mg/dL (74-106)
--- NOTE | 2023-08-17 14:08 | PCM.PROGNOTE ---
Subjective Subjective Patient seen and examined. He had no active complaints. He was admitted with a complaint of debility and failure to thrive. He is unable to take care of himself at home. Review of systems is otherwise negative. Objective Data Objective Data Vital Signs: Vital Signs Temp Pulse Resp BP Pulse Ox O2 Del Method O2 Flow Rate 97.3 F L 88 20 H 121/82 H 95 Room Air 2 08/17/23 08:41 08/17/23 08:43 08/17/23 08:41 08/17/23 08:41 08/17/23 08:41 08/17/23 08:41 08/17/23 00:25 Oxygen Flow Rate (L/min) 2 Oxygen Delivery Method Room Air Weight: 302 lb Body Mass Index (BMI) 44.7 Intake & Output: Intake and Output for Last 24 Hours 08/15/23 08/16/23 08/17/23 23:59 23:59 23:59 Intake Total 740 / 740 Output Total 600 / 600 Balance 140 / 140 Lab / Micro Data 08/17/23 05:40 08/17/23 05:40 Labs: Laboratory Results - last 24 hr 08/16/23 16:35: WBC 7.2, RBC 3.97 L, Hgb 11.8 L, Hct 38.4 L, MCV 96.7 H, MCH 29.7, MCHC 30.7 L, RDW Std Deviation 61.1 H, RDW Coeff of Raphael 17.2 H, Plt Count 192, MPV 10.1, Immature Gran % (Auto) 0.600, Neut % (Auto) 76.5 H, Lymph % (Auto) 13.0 L, Warren % (Auto) 6.4, Eos % (Auto) 2.9, Baso % (Auto) 0.6, Absolute Neuts (auto) 5.5, Absolute Lymphs (auto) 0.94, Nucleated RBC % 0, PT 20.3 H, INR 1.7, Sodium 139, Potassium 3.4 L, Chloride 105, Carbon Dioxide 26.0, Anion Gap 8, BUN 56 H, Creatinine 1.88 H, Estim Creat Clear Calc 34.47, Est GFR (MDRD) Af Amer 45 L, Est GFR (MDRD) Non-Af 37 L, BUN/Creatinine Ratio 29.8 H, Glucose 157 H, Calcium 8.2 L, Magnesium 2.5 08/16/23 22:29: POC Glucose 157 H 08/17/23 02:05: MRSA (PCR) Negative 08/17/23 05:40: WBC 7.2, RBC 4.00 L, Hgb 11.8 L, Hct 37.8 L, MCV 94.5 H, MCH 29.5, MCHC 31.2 L, RDW Std Deviation 59.6 H, RDW Coeff of Raphael 17.3 H, Plt Count 205, MPV 10.0, Immature Gran % (Auto) 0.600, Neut % (Auto) 80.6 H, Lymph % (Auto) 10.3 L, Warren % (Auto) 5.8, Eos % (Auto) 2.4, Baso % (Auto) 0.3, Absolute Neuts (auto) 5.8, Absolute Lymphs (auto) 0.74 L, Nucleated RBC % 0, PT 19.9 H, INR 1.7, Sodium 138, Potassium 3.8, Chloride 106, Carbon Dioxide 24.0, Anion Gap 8, BUN 53 H, Creatinine 1.80 H, Estim Creat Clear Calc 36.00, Est GFR (MDRD) Af Amer 48 L, Est GFR (MDRD) Non-Af 39 L, BUN/Creatinine Ratio 29.4 H, Glucose 200 H, Calcium 8.5, Total Bilirubin 0.90, Direct Bilirubin 0.56 H, AST 31, ALT 59, Alkaline Phosphatase 117, Total Protein 6.6, Albumin 2.6 L, Globulin 4.0, Albumin/Globulin Ratio 0.6 L 08/17/23 06:17: POC Glucose 193 H 08/17/23 11:34: POC Glucose 178 H Micro: Microbiology 08/17/23 03:00 Stool C. difficile DNA Amplification - Final Physical Exam Const alert, oriented x3 and no apparent distress General Appearance: cooperative HEENT head/scalp atraumatic, moist oral mucous membranes and oropharynx normal Eyes PERRL and EOMs intact bilaterally Neck no lymphadenopathy, supple and no JVD Lymph Lymphatic: no lymphadenopathy noted and no lymphedema noted Resp normal respiratory effort, normal air movement and clear to auscultation bilaterally Cardio regular rate, regular rhythm, S1 normal heart sound, S2 normal heart sound and no murmurs GI normal to inspection, nondistended, normoactive bowel sounds, soft to palpation and non-tender Extremity normal capillary refill and no calf tenderness Extremity Narrative: bilateral LE edema. LLE is mildly erythematous, wih 1+ pedal edema. No differential warmth. Skin General Skin Exam: no breakdown Neuro CN's II-XII intact bilaterally, no focal motor deficits and deep tendon reflexes 2+ bilaterally Motor Exam: strength 5/5 throughout and general weakness Psych thought process normal and cooperative Appearance: appropriate Assessment & Plan Assessment/Plan (1) Inability to walk: PLAN: Plan #Failure to thrive with generalised debility and weakness Was recently discharged home after being treated for cellulitis of lower extremity. However he has not been able to care for himself at home and has not been able to ambulate. Now wants placement. PT OT on board. Fall precautions. #Diarrhea: has been having diarrhea since being on antibiotics. C difff and enteric pathogens ordered. #Recent RLE cellulitis: was recently treated for RLE cellulitis. Was discharged home on augmentin. LLE still erythematous, but has minimal differential warmth and no tenderness. Will monitor for now. #CKD IIIB: Cr stable. Willmonitor #CAD: Recently had cardiac cath after he presented for non-STEMI and was found to have triple vessel disease. Plan is for medical management. His previously placed stents were noted to be patent. On aspirin and Plavix as well as high intensity statin. #Type 2 diabetes mellitus: On glipizide. Insulin sliding scale. Checks ACHS. #A-fib: On metoprolol and Eliquis. #Recent gallstone pancreatitis: Had pancreatitis in June 2023 and had cholecystectomy and ERCP. #Heart failure with reduced ejection fraction: Has known EF of 40%. On Lasix. DVT prophylaxis: On Eliquis Disposition: will benefit from placement. Charges/Coding Visit Charges Inpatient E&M: 42198 Subs Hosp L2
--- NOTE | 2023-08-17 15:11 | CASEMGMT ---
SW sent PT/OT evaluations to [facility]. [facility] will start pre-cert. Cristal ARENAS
[2023-08-17 16:59] LABS: Bedside Glucose 154 mg/dL (74-106)
[2023-08-17] MEDS: Atorvastatin Calcium 80 MG Tablet PO (21:25)
[2023-08-17 21:47] LABS: Bedside Glucose 175 mg/dL (74-106)
[2023-08-18] MEDS: Insulin Lispro 100 UNIT/ML INSULN.PEN SC ×4 (05:39→20:47)
[2023-08-18] MEDS: Piperacil/Tazobactam 3.375 GM in 0.9% Normal Saline (50mL MB+) 50 ML IV ×3 (05:39→20:56)
[2023-08-18 06:00] VITALS: BMI 45.0
[2023-08-18 06:02] LABS: Bedside Glucose 162 mg/dL (74-106)
[2023-08-18 06:12] LABS: Absolute Lymphocyte Count 0.92 X10^3/uL (0.83-4.51); Basophil# 0.04 X10^3/uL; Basophil% 0.5 % (0-1); Eosinophil# 0.21 X10^3/uL; Eosinophils% 2.7 % (0-5); Hematocrit 37.4 % (40-54); Hemoglobin 11.8 g/dL (13.0-16.5); Lymphocyte # 0.92 X10^3/ul (0.83-4.51); Lymphocyte % 11.9 % (19-41); Mean Corp Hgb Conc 31.6 g/dL (32-36); Mean Corpuscular Hgb 29.9 pg (27.0-32.0); Mean Corpuscular Volume 94.9 fL (80-94); Mean Platelet Vol. 9.8 fl (6.2-12.0); Monocyte# 0.48 X10^3/uL; Monocyte% 6.2 % (0-10); NRBC Flagged by Analyzer 0 % (0-5); Neutrophil # 6.04 X10^3/uL (2.7-7.7); Neutrophil % 78.4 % (47-70); Platelet Count 211 K/mm3 (150-450); RBC Distribution Width CV 17.2 % (11.6-14.6); RBC Distribution Width SD 59.8 fl (35.1-43.9); Red Blood Count 3.94 M/mm3 (4.6-6.2); White Blood Count 7.7 K/mm3 (4.4-11.0)
[2023-08-18 06:42] LABS: Anion Gap 9 (5-15); BUN 51 mg/dL (7-18); BUN/Creat Ratio 26.4 RATIO (10-20); Calcium,Total 8.2 mg/dL (8.5-10.1); Chloride 107 mmol/L (98-107); Creatinine, Serum 1.93 mg/dL (0.70-1.30); EST Glomerular Filtration Rate 36 mL/min (>60); Est Glom Filt Rate - Afr Amer 44 mL/min (>60); Estimated Creatinine Clearance 33.58 ml/min; Glucose 169 mg/dL (74-106); Sodium Level 139 mmol/L (136-145)
[2023-08-18 07:44] VITALS: O2SAT 97
[2023-08-18 08:39] VITALS: BP 101/71; PULSE 98; RESP 18; TEMP 36.8; O2SAT 96
[2023-08-18 08:45] VITALS: PULSE 98
[2023-08-18] MEDS: Allopurinol 100 MG Tablet PO ×2 (08:45→20:54)
[2023-08-18] MEDS: Metoprolol Tartrate 100 MG Tablet PO ×2 (08:45→20:54)
[2023-08-18] MEDS: Multivitamins,Therapeutic Tablet 1 TABLET PO (08:45)
[2023-08-18] MEDS: Aspirin E.C. 81 MG Tablet PO (08:45)
[2023-08-18] MEDS: Furosemide 20 MG Tablet 60 MG PO ×2 (08:45→17:33)
[2023-08-18] MEDS: Pantoprazole Sodium 40 MG Tablet PO (08:45)
[2023-08-18] MEDS: Amiodarone 200 MG Tablet PO (08:45)
[2023-08-18] MEDS: Gabapentin 100 MG Capsule PO ×3 (08:45→17:33)
[2023-08-18] MEDS: Isosorbide Mononitrate 30 MG Tablet PO (08:46)
[2023-08-18] MEDS: Menthol/Lanolin/Calamine/Znox 113 GM Tube 1 APPLIC TOPICAL ×4 (08:46→20:47)
--- NOTE | 2023-08-18 10:05 | CASEMGMT ---
SW received a message that patient was interested in going to [facility] as he knows someone that works there. The pre-cert has already been started at [facility] as this was the facility patient chose. SW went to patient's room. SW asked about [facility]. Patient said he knows someone that works there. SW attempted to explain to patient that switching facilities now would mean cancelling things with [facility] and then starting over with [facility]. This would delay the d/c process. SW also told patient that it is a good possibility he could get denied by insurance to go to a alf as he is doing well with therapy. SW had to explain that this means he would have to private pay at a alf or he could be set up with home health. SW also explained if insurance denies him for SNF that would be any SNF not just [facility]. Patient then said he doesn't really want to go stay somewhere for rehab. SW told patient that it was SW's understanding that is why he came to the hospital as he and his son felt he needed to go to a alf. Patient said his son thinks he needs to go to a alf. Patient said his son is a wimp. He got a taste of real life. SW asked patient if it would be okay to wait and see what his insurance says about alf and then go from there. Patient was in agreement with this plan. Cristal ARENAS
[2023-08-18 11:55] LABS: Bedside Glucose 181 mg/dL (74-106)
--- NOTE | 2023-08-18 12:00 | CHAPLAIN ---
Type of Pastoral Visit _x__ Initial Visit ___ Follow-up Visit ___ On-call Visit ___ General Patient Visit ___ Spiritual Assessment ___ Family Conference ___ Bereavement ___ Rapid Response ___ Code Blue ___ Other (describe below) Pastoral Care Referral From _x__ Patient ___ Family ___ Nurse ___ Physician ___ [employer] Fitter ___ Sharebroker ___ Other (describe below) Sacrament/Intervention _x__ Active listening ___ Anointing ___ Holiness ___ Bereavement ___ Communion _x__ Genia exploration ___ ___ Life review _x__ Prayer ___ Reconciliation ___ Sacrament of Sick _x__ Supportive presence ___ Wedding ___ Other (describe below) Pastoral Comments patient has been seen before in previous admissions; pt is always very talkative and desires for spiritual care and casual conversation; pt reveals irritation about a phone call from a friend and talks through some of the emotion of that call and relationship; pt also shares thoughts and relationships that he deals with in life; pt expresses genia and his desire to serve God; pt welcomes prayer and at conclusion of prayer the pt is tearful; pt continues to talk about his desire to do the right thing and be a good person; time and attention given to needs of this patient
--- NOTE | 2023-08-18 14:27 | VDLE_ITS ---
Reason For Study: SWELLING RIGHT LEFT GSV is normal. GSV is normal. CFV is compressible, spontaneous, phasic, CFV is compressible, spontaneous, phasic, competent and demonstrates normal competent, and demonstrates normal augmentation. augmentation. FV is compressible, spontaneous, phasic, FV is compressible, spontaneous, phasic, competent and demonstrates normal competent and demonstrates normal augmentation. augmentation. POP V is compressible, spontaneous, phasic, POP V is compressible, spontaneous, phasic, competent and demonstrates normal competent and demonstrates normal augmentation. augmentation. T/P Trunk is compressible. T/P Trunk is compressible. PTV is compressible. PTV is compressible. RT PerV is compressible. LT PerV is compressible. Procedure This is a venous duplex using B-mode, color flow and spectral Doppler. Exam performed portable in patient room. The study was technically difficult. Due to body habitus. A preliminary report was called and/or faxed to [facility]. VL/Venous Duplex US - Wesley Extrem Interpretation Summary Deep veins of the lower extremities are bilaterally patent and compressible seg mentally. There is no evidence of deep vein thrombosis on either side. Valvular competence appears in tact within the proximal deep venous systems bilaterally. The great saphenous veins appear bila terally patent and compressible segmentally. Ordering Physician: Faiza Cast Referring Physician: Boston Figueroa Performed By: Rosy Hilton, DECS, RVT
--- NOTE | 2023-08-18 14:28 | PCM.PROGNOTE ---
Subjective Subjective Patient seen and examined. He had no active complaints. He says his LLE is still swollen and red, but has no pain. Review of systems is otherwise negative. Objective Data Objective Data Vital Signs: Vital Signs Temp Pulse Resp BP Pulse Ox O2 Del Method O2 Flow Rate 98.3 F 98 18 101/71 96 Room Air 2 08/18/23 08:39 08/18/23 08:45 08/18/23 08:39 08/18/23 08:39 08/18/23 08:39 08/18/23 08:50 08/17/23 00:25 Oxygen Flow Rate (L/min) 2 Oxygen Delivery Method Room Air Weight: 304 lb 14.389 oz Body Mass Index (BMI) 45.0 Intake & Output: Intake and Output for Last 24 Hours 08/16/23 08/17/23 08/18/23 23:59 23:59 23:59 Intake Total 1270 / 1520 980 / 980 Output Total 600 / 600 Balance 670 / 920 980 / 980 Lab / Micro Data 08/18/23 05:22 08/18/23 05:22 Labs: Laboratory Results - last 24 hr 08/17/23 16:40: POC Glucose 154 H 08/17/23 21:21: POC Glucose 175 H 08/18/23 05:22: WBC 7.7, RBC 3.94 L, Hgb 11.8 L, Hct 37.4 L, MCV 94.9 H, MCH 29.9, MCHC 31.6 L, RDW Std Deviation 59.8 H, RDW Coeff of Raphael 17.2 H, Plt Count 211, MPV 9.8, Immature Gran % (Auto) 0.300, Neut % (Auto) 78.4 H, Lymph % (Auto) 11.9 L, Colbert % (Auto) 6.2, Eos % (Auto) 2.7, Baso % (Auto) 0.5, Absolute Neuts (auto) 6.0, Absolute Lymphs (auto) 0.92, Nucleated RBC % 0, Sodium 139, Potassium 4.0, Chloride 107, Carbon Dioxide 23.0, Anion Gap 9, BUN 51 H, Creatinine 1.93 H, Estim Creat Clear Calc 33.58, Est GFR (MDRD) Af Amer 44 L, Est GFR (MDRD) Non-Af 36 L, BUN/Creatinine Ratio 26.4 H, Glucose 169 H, Calcium 8.2 L 08/18/23 05:37: POC Glucose 162 H 08/18/23 11:36: POC Glucose 181 H Micro: Microbiology 08/17/23 03:00 Stool Enteric Bacteriology - Final 08/17/23 03:00 Stool C. difficile DNA Amplification - Final Physical Exam Const alert, oriented x3 and no apparent distress General Appearance: cooperative HEENT normocephalic, head/scalp atraumatic, moist oral mucous membranes and oropharynx normal Eyes PERRL and EOMs intact bilaterally Neck no lymphadenopathy, supple and no JVD Lymph Lymphatic: no lymphadenopathy noted and no lymphedema noted Resp normal respiratory effort, normal air movement and clear to auscultation bilaterally Cardio regular rate, regular rhythm, S1 normal heart sound, S2 normal heart sound and no murmurs GI normal to inspection, nondistended, normoactive bowel sounds, soft to palpation and non-tender Extremity normal capillary refill and no calf tenderness Extremity Narrative: bilateral LE edema. LLE is mildly erythematous, wih 1+ pedal edema. No differential warmth. Skin General Skin Exam: no breakdown Neuro CN's II-XII intact bilaterally, no focal motor deficits, no sensory deficits noted and deep tendon reflexes 2+ bilaterally Motor Exam: strength 5/5 throughout and general weakness Psych thought process normal and cooperative Appearance: appropriate Assessment & Plan Assessment/Plan (1) Inability to walk: PLAN: Plan #Failure to thrive with generalised debility and weakness Was recently discharged home after being treated for cellulitis of lower extremity. However he has not been able to care for himself at home and has not been able to ambulate. Now wants placement. PT OT on board. Fall precautions. #Diarrhea: Resolving. C diff and enteric pathogens negative. #Recent RLE cellulitis: was recently treated for RLE cellulitis. Was discharged home on augmentin. LLE still erythematous, but has minimal differential warmth and no tenderness. Will get duplex of lower extremities out of an abundance of precaution. #CKD IIIB: Cr stable. Will monitor #CAD: Recently had cardiac cath after he presented for non-STEMI and was found to have triple vessel disease. Plan is for medical management. His previously placed stents were noted to be patent. On aspirin and Plavix as well as high intensity statin. #Type 2 diabetes mellitus: On glipizide. Insulin sliding scale. Checks ACHS. #A-fib: On metoprolol and Eliquis. #Recent gallstone pancreatitis: Had pancreatitis in June 2023 and had cholecystectomy and ERCP. #Heart failure with reduced ejection fraction: Has known EF of 40%. On Lasix. DVT prophylaxis: On Eliquis Disposition: awaiting placement Charges/Coding Visit Charges Inpatient E&M: 73354 Subs Hosp L2
[2023-08-18 15:30] VITALS: BP 108/78; PULSE 94; RESP 18; TEMP 36.6; O2SAT 94
[2023-08-18 17:55] LABS: Bedside Glucose 195 mg/dL (74-106)
[2023-08-18 20:36] VITALS: BP 126/98; PULSE 76; RESP 17; TEMP 36.4; O2SAT 96
[2023-08-18] MEDS: Atorvastatin Calcium 80 MG Tablet PO (20:53)
[2023-08-18 20:54] VITALS: PULSE 76
[2023-08-19 00:29] LABS: Bedside Glucose 162 mg/dL (74-106)
[2023-08-19 04:30] VITALS: BP 103/63; PULSE 95; RESP 17; TEMP 36.3; O2SAT 97
[2023-08-19 05:42] VITALS: BMI 45.2
[2023-08-19 06:11] LABS: Absolute Lymphocyte Count 0.85 X10^3/uL (0.83-4.51); Absolute Neutrophil Count 7.1 X10^3/uL (2.0-7.7); Basophil# 0.04 X10^3/uL; Basophil% 0.5 % (0-1); Eosinophils% 1.2 % (0-5); Hemoglobin 11.6 g/dL (13.0-16.5); Lymphocyte # 0.85 X10^3/ul (0.83-4.51); Lymphocyte % 9.9 % (19-41); Mean Corp Hgb Conc 30.5 g/dL (32-36); Mean Platelet Vol. 10.3 fl (6.2-12.0); Monocyte# 0.48 X10^3/uL; Monocyte% 5.6 % (0-10); NRBC Flagged by Analyzer 0.2 % (0-5); Neutrophil # 7.08 X10^3/uL (2.7-7.7); Neutrophil % 82.3 % (47-70); Platelet Count 229 K/mm3 (150-450); RBC Distribution Width CV 17.3 % (11.6-14.6); RBC Distribution Width SD 59.7 fl (35.1-43.9); White Blood Count 8.6 K/mm3 (4.4-11.0)
[2023-08-19] MEDS: Piperacil/Tazobactam 3.375 GM in 0.9% Normal Saline (50mL MB+) 50 ML IV ×2 (06:57→15:08)
[2023-08-19] MEDS: Insulin Lispro 100 UNIT/ML INSULN.PEN SC ×3 (06:58→16:43)
[2023-08-19 06:59] LABS: Anion Gap 8 (5-15); BUN 50 mg/dL (7-18); BUN/Creat Ratio 24.8 RATIO (10-20); Calcium,Total 8.1 mg/dL (8.5-10.1); Chloride 106 mmol/L (98-107); Creatinine, Serum 2.02 mg/dL (0.70-1.30); EST Glomerular Filtration Rate 34 mL/min (>60); Est Glom Filt Rate - Afr Amer 42 mL/min (>60); Estimated Creatinine Clearance 32.08 ml/min; Glucose 214 mg/dL (74-106); Potassium 3.7 mmol/L (3.5-5.1); Sodium Level 138 mmol/L (136-145)
[2023-08-19 07:17] LABS: Bedside Glucose 172 mg/dL (74-106)
[2023-08-19 09:16] VITALS: BP 106/54; PULSE 82; RESP 18; TEMP 36.8; O2SAT 99
[2023-08-19 09:22] VITALS: PULSE 82
[2023-08-19] MEDS: Pantoprazole Sodium 40 MG Tablet PO (09:22)
[2023-08-19] MEDS: Metoprolol Tartrate 100 MG Tablet PO (09:22)
[2023-08-19] MEDS: Gabapentin 100 MG Capsule PO ×3 (09:22→16:44)
[2023-08-19] MEDS: Amiodarone 200 MG Tablet PO (09:22)
[2023-08-19] MEDS: Aspirin E.C. 81 MG Tablet PO (09:22)
[2023-08-19] MEDS: Furosemide 20 MG Tablet 60 MG PO ×2 (09:22→16:44)
[2023-08-19] MEDS: Menthol/Lanolin/Calamine/Znox 113 GM Tube 1 APPLIC TOPICAL ×3 (09:23→16:44)
[2023-08-19] MEDS: Allopurinol 100 MG Tablet PO (09:23)
[2023-08-19] MEDS: Multivitamins,Therapeutic Tablet 1 TABLET PO (09:23)
[2023-08-19] MEDS: Isosorbide Mononitrate 30 MG Tablet PO (09:23)
--- NOTE | 2023-08-19 10:20 | CASEMGMT ---
Patient was denied by insurance for [facility]. SW notified patient and his son who was present in the room. SW discussed home health. SW let them know that RN CM will come in and talk with them. RN CM aware. Cristal ARENAS
--- NOTE | 2023-08-19 10:26 | CASEMGMT ---
Discharge Planning A list of?HH ?providers including quality and resource use data and consistent with the patient's preferred geographic region, medical needs, and insurance network was created in [employer] Guide.? This list was provided to the RN YOGI. Mable Robertson, Discharge Planning Asst.
--- NOTE | 2023-08-19 11:00 | CASEMGMT ---
BAILEE CALIX updated by [facility] that patient was denied SNF and would like to discharge with HHC. BAILEE CALIX in to discuss HHC with patient, patient called son on cell phone. BAILEE CALIX explained HHC services and provided HHC list to patient. Patient states he would like [facility]. BAILEE CALIX made referral to [facility] awaiting acceptance. CM will continue to follow this patient and plan for a safe discharge.
[2023-08-19 11:18] LABS: Bedside Glucose 206 mg/dL (74-106)
--- NOTE | 2023-08-19 12:00 | DS.PCM_ITS ---
Providers Date of Admission: 08/16/23 Date of Discharge: 08/19/23 Primary Care Physician: Dr. Boston Figueroa MD Reason For Visit: CELLULITIS, ADULT FAILURE TO THRIVE Diagnosis Discharge Diagnosis (1) Inability to walk: Status: Acute Code(s): R26.2 - Difficulty in walking, not elsewhere classified Plan #Failure to thrive with generalised debility and weakness * Was recently discharged home after being treated for cellulitis of lower extremity. However he has not been able to care for himself at home and has not been able to ambulate. * Now wants placement. * PT OT on board. Fall precautions. * #Diarrhea: Resolving. C diff and enteric pathogens negative. #Recent RLE cellulitis: * was recently treated for RLE cellulitis. * Was discharged home on augmentin. * LLE still erythematous, but has minimal differential warmth and no tenderness. Will get duplex of lower extremities out of an abundance of precaution. * #CKD IIIB: Cr stable. Will monitor #CAD: * Recently had cardiac cath after he presented for non-STEMI and was found to have triple vessel disease. * Plan is for medical management. * His previously placed stents were noted to be patent. * On aspirin and Plavix as well as high intensity statin. #Type 2 diabetes mellitus: On glipizide. Insulin sliding scale. Checks ACHS. #A-fib: On metoprolol and Eliquis. #Recent gallstone pancreatitis: Had pancreatitis in June 2023 and had cholecystectomy and ERCP. #Heart failure with reduced ejection fraction: Has known EF of 40%. On Lasix. DVT prophylaxis: On Eliquis Disposition: awaiting placement Medications at Discharge Home Medications aspirin 81 mg tablet,delayed release (Adult Aspirin Regimen) 81 mg PO DAILY heart health 04/14/18 multivitamin (Daily Multi-Vitamin tablet) 1 tab PO DAILY vitamin 01/25/19 allopurinol 100 mg tablet 100 mg PO Q12H GOUT 08/03/22 pantoprazole 40 mg tablet,delayed release 40 mg PO DAILY ppi #90 tabs 08/11/22 glipizide 5 mg tablet 5 mg PO BID diabetes 09/15/22 nitroglycerin 0.4 mg sublingual tablet 0.4 mg sublingual Q5-15M PRN chest pain #25 tabs 06/09/23 atorvastatin 80 mg tablet 80 mg PO QHS anticholesterol 06/29/23 isosorbide mononitrate 30 mg tablet,extended release 24 hr 30 mg PO DAILY see doctor #30 tabs 07/19/23 metoprolol tartrate 100 mg tablet 100 mg PO BID blood pressure #180 tabs 07/26/23 melatonin 10 mg capsule 10 mg PO QHS PRN sleep 08/08/23 amiodarone 200 mg tablet 200 mg PO DAILY #30 tabs 08/13/23 amoxicillin 875 mg-potassium clavulanate 125 mg tablet 1 tab PO BID #24 tabs 08/13/23 furosemide 40 mg tablet 60 mg (1.5 x 40 mg) PO BID diuretic #1 TAB 08/13/23 gabapentin 100 mg capsule 100 mg PO TIDCM #90 caps 08/13/23 oxycodone 5 mg tablet 5 mg PO Q6H PRN pain 3 days #12 tabs 08/13/23 warfarin 4 mg tablet 4 mg PO QPM 08/16/23 Hospital Course Operations None Procedures None Summary of Care Provided Minutes Spent on Discharge: 55 Hospital Course: Patient is a 73 y/o male with a PMH as outlined who was admitted via the ED on 08/16/2023 for weakness and debility. Patient recently been admitted and had just been discharged on 08/13/2023 after being treated for left lower extremity cellulitis. He was treated with IV Zosyn and discharged mentally. However when he went home he could not ambulate and needed help to even for transfer to the toilet. He also noticed increased redness and warmth of the left lower extremity since his discharge and also had diarrhea. He was admitted and managed for debility and weakness as well as diarrhea and left lower extremity cellulitis. He was placed on IV Zosyn and PT OT were consulted. C. difficile and enteric pathogens test were negative. He did work with physical therapy. He was not as needing [facility] care but insurance denied approval. Patient did work well with therapy and actually opted to go home with home health care. The redness and swelling of his left lower extremity improved. Duplex of lower extremities done was negative for any evidence of DVT. He was discharged home with home health care on 08/19/2023. He is to follow-up with his primary care doctor within 1 to 2 weeks. Patient seen and examined prior to discharge. He had no complaints and felt well. He had an uneventful night and review of systems otherwise negative. Labs and vitals reviewed. Home medication reviewed and reconciled. Physical Exam Const alert, oriented x3 and no apparent distress General Appearance: cooperative, comfortable and well kempt Orientation / Consciousness: awake Exam Limitations: no limitations HEENT normocephalic, head/scalp atraumatic, hearing grossly normal bilaterally, moist oral mucous membranes and oropharynx normal Mouth: oral and palatal mucosa normal Eyes PERRL, EOMs intact bilaterally and conjunctivae normal Neck no lymphadenopathy, supple and no JVD Lymph Lymphatic: no lymphadenopathy noted and no lymphedema noted Resp normal respiratory effort, normal air movement and clear to auscultation bilaterally Cardio regular rate, regular rhythm, S1 normal heart sound, S2 normal heart sound and no murmurs GI normal to inspection, nondistended, normoactive bowel sounds, soft to palpation and non-tender Extremity normal capillary refill and no calf tenderness Extremity Narrative: bilateral LE edema. LLE erythema has improved markedly . No tenderness or differential warmth Skin General Skin Exam: no breakdown Neuro oriented x3, CN's II-XII intact bilaterally, moves all extremities, no focal motor deficits, no sensory deficits noted and deep tendon reflexes 2+ bilaterally Sensorium / Orientation: awake and alert Motor Exam: strength 5/5 throughout and general weakness Psych thought process normal and cooperative Appearance: appropriate Weight / BMI Weight Weight: 306 lb 3.553 oz Body Mass Index (BMI) 45.2 ABG / Lab / Microbiology Data 08/19/23 05:19 08/19/23 05:19 Laboratory: Laboratory Results - last 24 hr 08/18/23 17:30: POC Glucose 195 H 08/18/23 20:45: POC Glucose 162 H 08/19/23 05:19: WBC 8.6, RBC 4.00 L, Hgb 11.6 L, Hct 38.0 L, MCV 95.0 H, MCH 29.0, MCHC 30.5 L, RDW Std Deviation 59.7 H, RDW Coeff of Raphael 17.3 H, Plt Count 229, MPV 10.3, Immature Gran % (Auto) 0.500, Neut % (Auto) 82.3 H, Lymph % (Auto) 9.9 L, Windham % (Auto) 5.6, Eos % (Auto) 1.2, Baso % (Auto) 0.5, Absolute Neuts (auto) 7.1, Absolute Lymphs (auto) 0.85, Nucleated RBC % 0.2, Sodium 138, Potassium 3.7, Chloride 106, Carbon Dioxide 24.0, Anion Gap 8, BUN 50 H, Creatinine 2.02 H, Estim Creat Clear Calc 32.08, Est GFR (MDRD) Af Amer 42 L, Est GFR (MDRD) Non-Af 34 L, BUN/Creatinine Ratio 24.8 H, Glucose 214 H, Calcium 8.1 L 08/19/23 06:56: POC Glucose 172 H 08/19/23 10:58: POC Glucose 206 H Microbiology: Microbiology 08/17/23 03:00 Stool Enteric Bacteriology - Final 08/17/23 03:00 Stool C. difficile DNA Amplification - Final Radiography Diagnostic Testing: Radiology Impression Venous Doppler Study 08/18/23 14:27 Interpretation Summary Deep veins of the lower extremities are bilaterally patent and compressible segmentally. There is no evidence of deep vein thrombosis on either side. Valvular competence appears intact within the proximal deep venous systems bilaterally. The great saphenous veins appear bilaterally patent and compressible segmentally. Ordering Physician: Faiza Cast Referring Physician: Boston Figueroa Performed By: Rosy Hilton, MYRIAM, RVT D/C Instructions Discharge Diet: Low fat / Low cholesterol Discharge Activity: Return to Normal Activity Weight Bearing Status: Weight bearing as tolerated Call your doctor if you observe: Fever of 101 or Higher, Shortness of breath, Dizziness, Swelling in the ankles, Chest pain, Increased palpitations (irregular heartbeat) and - (worsening weakness) Meaningful Use Info Meaningful Use Diagnoses (Choose all that apply): None applicable Discharge Plan Admission Admit Date/Time: 08/16/23 19:35 Attending Provider: Faiza Cast Primary Care Provider: Henry,Boston Consulting Providers: Olya Garber Instructions Patient Instructions: ED FALL-from [id number] Discharge Orders/Prescriptions Prescriptions: Continued aspirin [Adult Aspirin Regimen] 81 mg tablet,delayed release (DR/EC) 81 mg PO DAILY multivitamin [Daily Multi-Vitamin] tablet 1 tab PO DAILY glipizide 5 mg tablet 5 mg PO BID allopurinol 100 mg tablet 100 mg PO Q12H atorvastatin 80 mg tablet 80 mg PO QHS Rx Instructions: TAKE 1 TABLET AT BEDTIME isosorbide mononitrate 30 mg Tablet Extended Release 24 Hr 30 mg PO DAILY Qty: 30 2RF melatonin 10 mg capsule 10 mg PO QHS PRN (Reason: sleep) amiodarone 200 mg Tablet 200 mg PO DAILY Qty: 30 0RF amoxicillin-pot clavulanate 875-125 mg Tablet 1 tab PO BID Qty: 24 0RF Rx Instructions: Take with food and sit upright for the 30 to 60 minutes following taking and drink 8 ounces of water with the medication oxycodone 5 mg Tablet 5 mg PO Q6H PRN (Reason: pain) 3 Days Qty: 12 0RF gabapentin 100 mg Capsule 100 mg PO TIDCM Qty: 90 0RF furosemide 40 mg tablet 60 mg PO BID Qty: 1 0RF Rx Instructions: Take 40 mg twice daily Wednesday and increase to 60 mg on Wednesday warfarin 4 mg tablet 4 mg PO QPM Patient Comments: TAKE 1 TABLET BY MOUTH EVERY EVENING DIRECTED pantoprazole 40 mg tablet,delayed release (DR/EC) 40 mg PO DAILY Qty: 90 3RF nitroglycerin 0.4 mg tablet, sublingual 0.4 mg sublingual Q5-15M PRN (Reason: chest pain) Qty: 25 3RF Rx Instructions: do not exceed 3 doses per episode metoprolol tartrate 100 mg tablet 100 mg PO BID Qty: 180 3RF Referrals / Follow Up: Boston Figueroa MD [Primary Care Provider] - 08/24/23 3:10 am Edith Yates PA [Med Staff - Adv Practice Prof] - 08/26/23 3:00 pm (This appt is at [facility] ) Disposition Disposition (needs filled in before D/C Order can be placed): Home, Self Care Charges/Coding Visit Charges Inpatient E&M: 82346 Disch Hosp >30min
--- NOTE | 2023-08-19 13:30 | CASEMGMT ---
BAILEE CALIX received message from [facility] and they are not able to accept the patient. BAILEE CALIX in to discuss additional choices for HHC. Patient states he has no preferences for HHC as long as they can accept him. BAILEE CALIX updated discharging strategic planning specialist to send referrals to [facility] agencies in-network with insurance. CM will continue to follow this patient and plan for a safe discharge.
--- NOTE | 2023-08-19 14:43 | CASEMGMT ---
Discharge Planning HH referrals sent to [facility], [facility], [facility], [facility], [facility], [facility]. Mable Robertson, Discharge Planning Asst.
[2023-08-19 15:04] VITALS: BP 108/82; PULSE 84; RESP 18; TEMP 36.6; O2SAT 96
--- NOTE | 2023-08-19 15:12 | CASEMGMT ---
BAILEE CM updated that [facility] has accepted patient. BAILEE CALIX in to updated patient and patient agreeable to [facility]. Patient had no further questions or concerns at this time. Patient's discharge plan updated.
--- NOTE | 2023-08-19 15:39 | NURSING ---
Called pharmacy, ok to run zosyn 100ml/hr
--- NOTE | 2023-08-19 16:21 | CASEMGMT ---
Discharge Planning Patient has been accepted by [facility]. SOC within 48 hours. RN CM updated. Mable Robertson, Discharge Planning Asst.
[2023-08-19 17:08] LABS: Bedside Glucose 204 mg/dL (74-106)
== END 2023-08-19 17:31 | disposition home health service (06) | DRG 603 ==
LOC: ED 16:46 → PCU 19:52
PROVIDERS: Physician Assistant; Admitting Provider Family Medicine; Emergency Provider Emergency Medicine; PCP Family Medicine; Visit Provider Student in an Organized Health Care Education/Training Program
DX: L03.116 Cellulitis of left lower limb (principal); I13.0 Hypertensive heart and chronic kidney disease with heart failure and stage 1 through stage 4 chronic kidney disease, or unspecified chronic kidney disease; I48.20 Chronic atrial fibrillation, unspecified; K52.1 Toxic gastroenteritis and colitis; I50.22 Chronic systolic (congestive) heart failure; Z68.42 Body mass index [BMI] 45.0-49.9, adult; R62.7 Adult failure to thrive; E11.22 Type 2 diabetes mellitus with diabetic chronic kidney disease; E11.40 Type 2 diabetes mellitus with diabetic neuropathy, unspecified; J44.9 Chronic obstructive pulmonary disease, unspecified; N18.32 Chronic kidney disease, stage 3b; E66.01 Morbid (severe) obesity due to excess calories; D53.9 Nutritional anemia, unspecified; E78.5 Hyperlipidemia, unspecified; I25.10 Atherosclerotic heart disease of native coronary artery without angina pectoris; G47.33 Obstructive sleep apnea (adult) (pediatric); I25.5 Ischemic cardiomyopathy; E87.6 Hypokalemia; R26.2 Difficulty in walking, not elsewhere classified; M10.9 Gout, unspecified; K21.9 Gastro-esophageal reflux disease without esophagitis; L03.115 Cellulitis of right lower limb; T36.95XA Adverse effect of unspecified systemic antibiotic, initial encounter; R53.81 Other malaise; Z79.82 Long term (current) use of aspirin; Z79.84 Long term (current) use of oral hypoglycemic drugs; Z79.01 Long term (current) use of anticoagulants; Z91.198 Patient's noncompliance with other medical treatment and regimen for other reason; Z87.891 Personal history of nicotine dependence; Z95.5 Presence of coronary angioplasty implant and graft
CPT/HCPCS: 36415; 80048; 80053; 80076; 82962; 83735; 85025; 85610; 87493; 87506; 87641; 93970; 94668; 97110; 97116; 97162; 97166; 97530; 97533; 97535; 97802; 99252; 99285; A4216; G0463

== ENCOUNTER 2023-08-24 09:52 | Outpatient (RCR) | payer MEDICARE, SELFPAY ==
[2020-03-07 09:49] VITALS: BMI 41.8
[2023-08-24 11:06] LABS: Absolute Lymphocyte Count 0.83 X10^3/uL (0.83-4.51); Absolute Neutrophil Count 5.8 X10^3/uL (2.0-7.7); Basophil# 0.07 X10^3/uL; Basophil% 0.9 % (0-1); Eosinophil# 0.12 X10^3/uL; Eosinophils% 1.6 % (0-5); Hematocrit 39.5 % (40-54); Hemoglobin 11.9 g/dL (13.0-16.5); Lymphocyte # 0.83 X10^3/ul (0.83-4.51); Lymphocyte % 11.2 % (19-41); Mean Corp Hgb Conc 30.1 g/dL (32-36); Mean Corpuscular Hgb 28.7 pg (27.0-32.0); Mean Corpuscular Volume 95.4 fL (80-94); Mean Platelet Vol. 10.1 fl (6.2-12.0); Monocyte% 8.1 % (0-10); NRBC Flagged by Analyzer 0 % (0-5); Neutrophil # 5.76 X10^3/uL (2.7-7.7); Neutrophil % 77.7 % (47-70); Platelet Count 244 K/mm3 (150-450); RBC Distribution Width CV 17.8 % (11.6-14.6); RBC Distribution Width SD 61.9 fl (35.1-43.9); Red Blood Count 4.14 M/mm3 (4.6-6.2); White Blood Count 7.4 K/mm3 (4.4-11.0)
[2023-08-24 11:16] LABS: International Normalized Ratio 2.5; Prothrombin Time (Protime)PT. 27.5 SECONDS (11.7-14.9)
[2023-08-24 11:43] LABS: ALB/GLOB Ratio 0.7 RATIO (0.9-2.4); AST(SGOT) 18 U/L (15-37); Alanine Aminotransfer ALT/SGPT 32 U/L (16-61); Albumin, Serum 2.7 g/dL (3.2-5.0); Alkaline Phosphatase 102 U/L (45-117); Anion Gap 6 (5-15); BUN 58 mg/dL (7-18); BUN/Creat Ratio 26.2 RATIO (10-20); Chloride 107 mmol/L (98-107); Creatinine, Serum 2.21 mg/dL (0.70-1.30); EST Glomerular Filtration Rate 31 mL/min (>60); Est Glom Filt Rate - Afr Amer 38 mL/min (>60); Globulin 3.9 g/dL (2.2-4.2); Glucose 225 mg/dL (74-106); Potassium 3.5 mmol/L (3.5-5.1); Protein, Total 6.6 g/dL (6.4-8.2); Sodium Level 139 mmol/L (136-145)
== END 2023-08-24 18:00 | disposition home or self-care (01) ==
LOC: LAB 09:52
PROVIDERS: Physician Assistant Medical; PCP Family Medicine; Referring Provider Internal Medicine Cardiovascular Disease; Visit Provider Internal Medicine Cardiovascular Disease
DX: I48.0 Paroxysmal atrial fibrillation (principal); Z79.01 Long term (current) use of anticoagulants
CPT/HCPCS: 36415; 80053; 85025; 85610

== ENCOUNTER 2023-08-28 23:12 | Emergency (ER) | payer MEDICARE, SELFPAY ==
[2020-03-07 09:49] VITALS: BMI 41.8
--- NOTE | 2023-08-28 01:50 | RAD_ITS ---
STUDY: X-RAY CHEST REASON FOR EXAM: Male, 73 years old. sob TECHNIQUE: Single AP portable view of the chest. COMPARISON: 06/08/2023. FINDINGS: There is mild elevation of the right hemidiaphragm. The lungs are underexpanded with mild vascular crowding. There is mild bilateral basilar atelectasis. There are multiple old left-sided rib fractures. There is no demonstrated pleural abnormality. There is borderline cardiomegaly. Normal mediastinum and simi. Normal visualized pulmonary arteries. There is atherosclerotic tortuosity of the aortic arch and descending thoracic aorta. There are diffuse degenerative changes of the visualized thoracic spine. There is no demonstrated abnormality of the visualized soft tissue structures of the upper abdomen. RAD/Chest 1 View (Portable) IMPRESSION: Mild bilateral basilar atelectasis, otherwise no acute cardiopulmonary disease. Electronically Signed: Jackie Valdez MD at 2:19 EDT ,
[2023-08-28 23:15] VITALS: BP 113/70; PULSE 95; RESP 18; TEMP 36.6; O2SAT 95; BMI 46.7
[2023-08-28 23:18] VITALS: BP 113/70; PULSE 95; RESP 18; TEMP 36.6; O2SAT 95
--- NOTE | 2023-08-28 23:54 | EKG12_ITS ---
Test Reason : DYSRHYTHMIA Blood Pressure : / mmHG Vent. Rate : 082 BPM Atrial Rate : 000 BPM P-R Int : 000 ms QRS Dur : 098 ms QT Int : 382 ms P-R-T Axes : 000 -07 162 degrees QTc Int : 446 ms Atrial fibrillation Nonspecific ST and T wave abnormality Abnormal ECG Confirmed by REYNA MOYER, CINTHYA ([id number]), sound editor FLAQUITA MACKENZIE ([id number]) on 08/31/2023 11:53:22 AM Referred By: Confirmed By:CINTHYA ORELLANA MD
--- NOTE | 2023-08-28 23:54 | CT_ITS ---
STUDY: CT ABDOMEN AND PELVIS WITHOUT CONTRAST REASON FOR EXAM: Male, 73 years old. distension/swelling abd and scrotum w/ pain RADIATION DOSAGE (If Supplied By Facility): CTDIvol = ( 25.81 ) mGy, DLP = ( 2637.37 ) mGycm TECHNIQUE: Transaxial images were obtained from the dome of the diaphragm to the symphysis pubis without oral contrast, and without intravenous contrast. Sagittal and coronal images were reconstructed. Individualized dose optimization techniques were used for this CT. COMPARISON: 07/20/2023. FINDINGS: Bilateral lower lobe atelectasis. Mild cardiomegaly with coronary artery calcifications. Normal liver. There are surgical clips in the gallbladder fossa consistent with a prior cholecystectomy. There is a biliary stent in place. Mild free fluid surrounding the liver. Mild free fluid surrounding the spleen, otherwise normal spleen. Normal pancreas. Normal bilateral adrenal glands. Bilateral perinephric stranding otherwise normal right kidney. Normal left kidney. Normal visualized stomach. Normal small intestine. There are multiple colonic diverticula consistent with diverticulosis. There are surgical clips in the region of the appendix consistent with a prior appendectomy. There is diffuse atherosclerotic calcification of the abdominal aorta, without a demonstrated aneurysm. Normal inferior vena cava. Normal retroperitoneum. Normal urinary bladder. Diffuse fluid infiltration of subcutaneous fat including bilateral upper thighs, abdomen and lower hemithorax consistent with diffuse anasarca. There is severe edema involving the bilateral scrotal region. Small bilateral fat-containing inguinal hernias. There are diffuse degenerative changes of the visualized lumbar spine. CT/Abdomen/Pelvis without Cont IMPRESSION: Diffuse anasarca with mild ascites and severe edema involving the bilateral scrotal region and upper thighs. Status post cholecystectomy with biliary stent in place. Otherwise unremarkable abdominal viscera. Status post appendectomy. Diverticulosis with no signs of diverticulitis. No bowel obstruction. Electronically Signed: Jackie Valdez MD at 2:27 EDT ,
--- NOTE | 2023-08-28 23:56 | EX.ED.GUMALE ---
HPI History of Present Illness Chief Complaint: Male Pain/Injury Informant: patient and family (son) Narrative Narrative: Patient presents for swelling and pain in his scrotum for the past 3 to 4 days approximately. He has had cellulitis in his left leg for approximately 2 weeks according to the son, he has been on antibiotics for about a week for that it is improving. He states his legs have been edematous. He states at baseline he is not edematous. He states he has a history of congestive heart failure he is on Lasix and metolazone. He takes them daily. When asked if he has shortness of breath, like most other questions, he points to his son, he states yes but he does not know how long he cannot tell me if it is any worse than usual, he does not have cheyenne orthopnea, but if he lays absolutely flat that always makes him short of breath. He is a very poor historian even when asked direct yes/no ROS questions. [facility] Medical History A-fib Abdominal pain Abnormal stress test (07/2022) Acute exacerbation of CHF (congestive heart failure) Ambulates with cane Atherosclerosis of coronary artery without angina pectoris Bilateral lower extremity edema Cardiology follow-up encounter Chest pain CHF (congestive heart failure) Chronic anemia Chronic HFrEF (heart failure with reduced ejection fraction) Chronic kidney disease Chronic kidney disease (CKD) CKD stage 3 secondary to diabetes COPD (chronic obstructive pulmonary disease) Coronary artery disease Dermatitis Diabetes Diastolic dysfunction Elevated liver enzymes Elevated troponin Essential (primary) hypertension Fatty liver Former smoker Gastric ulcer Generalized muscle weakness GI (gastrointestinal bleed) Gout Heart murmur History of CHF (congestive heart failure) History of heart attack History of non-ST elevation myocardial infarction (NSTEMI) (05/05/21) History of non-ST elevation myocardial infarction (NSTEMI) History of stress test Hyperlipidemia Ischemic cardiomyopathy Kidney stones Longstanding persistent atrial fibrillation Low iron Non-rheumatic aortic stenosis NSTEMI, initial episode of care Obesity Obstructive sleep apnea Orthopnea Osteoarthritis Paroxysmal atrial fibrillation with RVR Secondary pulmonary arterial hypertension Shortness of breath on exertion Type 2 diabetes mellitus Home Medications aspirin 81 mg tablet,delayed release (Adult Aspirin Regimen) 81 mg PO DAILY heart health 04/14/18 [History Last Taken 08/16/23] multivitamin (Daily Multi-Vitamin tablet) 1 tab PO DAILY vitamin 01/25/19 [History Last Taken 08/08/23] allopurinol 100 mg tablet 100 mg PO Q12H GOUT 08/03/22 [History Last Taken 08/16/23] pantoprazole 40 mg tablet,delayed release 40 mg PO DAILY ppi #90 tabs 08/11/22 [Rx Last Taken 08/16/23] glipizide 5 mg tablet 5 mg PO BID diabetes 09/15/22 [History Last Taken 08/16/23] nitroglycerin 0.4 mg sublingual tablet 0.4 mg sublingual Q5-15M PRN chest pain #25 tabs 06/09/23 [Rx Last Taken Unknown] atorvastatin 80 mg tablet 80 mg PO QHS anticholesterol 06/29/23 [History Last Taken 08/15/23] isosorbide mononitrate 30 mg tablet,extended release 24 hr 30 mg PO DAILY see doctor #30 tabs 07/19/23 [Rx Last Taken 08/16/23] metoprolol tartrate 100 mg tablet 100 mg PO BID blood pressure #180 tabs 07/26/23 [Rx Last Taken 08/16/23] melatonin 10 mg capsule 10 mg PO QHS PRN sleep 08/08/23 [History Last Taken 08/08/23] amiodarone 200 mg tablet 200 mg PO DAILY #30 tabs 08/13/23 [Rx Last Taken 08/16/23] furosemide 40 mg tablet 60 mg (1.5 x 40 mg) PO BID diuretic #1 TAB 08/13/23 [Rx Last Taken 08/16/23] gabapentin 100 mg capsule 100 mg PO TIDCM #90 caps 08/13/23 [Rx Last Taken 08/16/23] oxycodone 5 mg tablet 5 mg PO Q6H PRN pain 3 days #12 tabs 08/13/23 [Rx Last Taken 08/16/23] warfarin 4 mg tablet 4 mg PO QPM 08/16/23 [History Last Taken 08/15/23] metolazone 2.5 mg tablet 2.5 mg PO .COMPLEX #10 tabs 08/24/23 [Rx Last Taken Unknown] Allergy/AdvReac Type Severity Reaction Status Date / Time metformin AdvReac Elevated Verified 08/24/23 09:04 LDH and anion gap Family History Mother , Age 80 Diabetes Hypertension Father , Age 55, coma Diabetes Hypertension Sister Hypertension Brother Diabetes Hypertension Cancer, Onset Age: 50 prostate cancer CAD (coronary artery disease) Surgical History History of appendectomy History of cardiac catheterization History of coronary artery stent placement (01/24/20) History of esophagogastroduodenoscopy (EGD) History of herniorrhaphy History of left heart catheterization (07/13/22) History of tonsillectomy History of total knee replacement (TKR) Status post cholecystectomy Social History household members: children Smoking Status: Former smoker quit date: 01/31/11 alcohol intake: current alcohol intake frequency: holidays/special occasions only substance use type: does not use caffeine: Yes Type: coffee ROS ROS ED Review of Systems ROS Unobtainable: other Details: Limited due to does not know the answer to most ROS questions Cardiovascular Cardiovascular: Reports as per HPI, leg edema, orthopnea and other Details: Chest pain: Sometimes, not now Respiratory/Chest Respiratory/Chest: Reports orthopnea and other Details: Short of breath but cannot give me any details ; Denies cough Gastrointestinal Gastrointestinal: Denies abdominal pain, melena, nausea or vomiting Genitourinary Genitourinary ED: Reports as per HPI, scrotal pain, scrotal swelling and other Details: Urinary frequency after taking his diuretic Integumentary Reports as per HPI and rash Neurologic Neurologic: Denies headache(s), paresthesias or weakness EXAM Physical Exam Const Vital Signs: 08/28/23 23:15 08/28/23 23:18 08/29/23 01:29 Temperature 97.9 F 97.9 F Temperature Source Oral Oral Pulse Rate 95 95 Respiratory Rate 18 18 Blood Pressure 113/70 113/70 Blood Pressure Mean 84 84 Pulse Ox 95 95 93 Oxygen Delivery Method Room Air Room Air Room Air 08/29/23 01:29 08/29/23 03:30 Temperature Temperature Source Pulse Rate 79 79 Respiratory Rate 19 H 16 Blood Pressure 102/58 L 141/78 H Blood Pressure Mean 72 99 Pulse Ox 93 93 Oxygen Delivery Method Room Air Room Air Positive well nourished, well developed and obese General Appearance ED: well developed and NAD Nutritional Appearance: obese HEENT Reports moist mucous membranes Eyes PERRL and EOMs intact bilaterally Neck no lymphadenopathy and supple Resp normal respiratory effort Resp Narrative: Speaking in full sentences. Bibasilar Rales and rhonchi bilaterally otherwise clear Cardio regular rate and regular rhythm Rate: Negative for tachycardic GI non-tender GI Narrative: Abdominal distention and obesity limit the evaluation. Peau d'orange appearance of the majority of the abdominal wall mostly lower half without induration/tenderness. Inspection: abdominal distention Auscultation: normoactive bowel sounds Narrative: Significant scrotal and penile edema. No erythema. Diffusely tender. No subcutaneous emphysema. Tender in the perineum but without erythema, necrotic tissue, obvious abnormal appearance, or subcutaneous emphysema. Back/Spine no CVA tenderness Extremity Extremity Narrative: Severely edematous extremities with signs of chronic stasis dermatitis in the right ankle, and a line drawn around a fading cellulitic area on the left lower leg up to the proximal marquis which is nontender right now. No necrotic tissue or signs of an abscess anywhere. Neuro oriented x3, CN's II-XII intact bilaterally, no focal motor deficits and no sensory deficits noted Sensorium / Orientation: alert Motor Exam: strength 5/5 throughout Psych mental status grossly normal Skin Skin Narrative: See above no other rashes other than the left lower leg MDM MDM MDM Narrative Medical decision making narrative: Patient appears to have anasarca. He states all the swelling is new. According to records it is not new. I had to read quite a bit about his recent medical history since the patient could provide me with none of this information although when I reported to him, he agreed with all of it. Seems 10 days ago he was discharged from the hospital for the cellulitis, then he had an outpatient appointment with his cardiology office here locally 4 days ago, and between discharge and then, he had gained 20 pounds of water weight, they increased his diuretic therapy by adding metolazone to his regimen, saying that if this does not help, they would bring him back next week for IV Lasix infusions and then potentially consider repeat echocardiogram although he just had one a couple months ago that showed an ejection fraction of 40%. He had multiple stents placed in the last several years, and even had a heart catheterization to evaluate patency of the stents and they all looked okay. I did a CT scan of his abdomen/pelvis to rule out early Alfonzo's/air production in the soft tissues, in addition to other potential causes that could be related to this. I reviewed the images and report and I agree with it. Essentially unremarkable for that. Just edema. His BNP is elevated his troponin is within normal limits, his renal function is similar to prior. He was given IV Lasix while we were working him up and urinated quite a bit. This was after 60 mg, and later he was given an additional 40 mg IV to enhance diruesis. His creatinine is similar to baseline and actually his BUN & creatinine are improved compared with what they were 4-5 days ago. He is able to stand and ambulate, and at this time I do not think he needs to be admitted to the hospital for that he can continue the outpatient plan at home, advised to call his cardiology office after the weekend for continued care as planned. Lab Data Attestation: I reviewed the patient's lab results. Labs: Laboratory Results - last 24 hr 08/29/23 00:49 WBC 7.0 RBC 4.23 L Hgb 12.0 L Hct 40.2 MCV 95.0 H MCH 28.4 MCHC 29.9 L RDW Std Deviation 61.0 H RDW Coeff of Raphael 17.9 H Plt Count 199 MPV 10.6 Immature Gran % (Auto) 0.300 Neut % (Auto) 74.5 H Lymph % (Auto) 13.4 L Clayton % (Auto) 8.3 Eos % (Auto) 2.8 Baso % (Auto) 0.7 Absolute Neuts (auto) 5.2 Absolute Lymphs (auto) 0.94 Nucleated RBC % 0 PT 34.4 H INR 3.4 Sodium 141 Potassium 3.5 Chloride 104 Carbon Dioxide 31.0 Anion Gap 6 BUN 54 H Creatinine 2.07 H Estim Creat Clear Calc 32.33 Est GFR (MDRD) Af Amer 41 L Est GFR (MDRD) Non-Af 34 L BUN/Creatinine Ratio 26.1 H Glucose 178 H Calcium 8.4 L Troponin I High Sens 44 B-Natriuretic Peptide 1890.5 H Radiography Diagnostic Testing: Clinical Impression(s) from Imaging Studies Chest X-Ray 08/28/23 01:50 IMPRESSION: Mild bilateral basilar atelectasis, otherwise no acute cardiopulmonary disease. Electronically Signed: Jackie Mischiu, MD at 2:19 EDT , Abdomen/Pelvis CT 08/28/23 23:54 IMPRESSION: Diffuse anasarca with mild ascites and severe edema involving the bilateral scrotal region and upper thighs. Status post cholecystectomy with biliary stent in place. Otherwise unremarkable abdominal viscera. Status post appendectomy. Diverticulosis with no signs of diverticulitis. No bowel obstruction. Electronically Signed: Jackie Valdez MD at 2:27 EDT , Rhythm Strip Rhythm Strip: A-fib Rate: 80 Ectopy: None EKG Initial EKG: Attestation: I personally reviewed and interpreted this EKG as follows: Interpretation: No Acute Injury Pattern, Atrial Fibrillation and Non-Specific ST Changes Prior EKG tracings: available for review Prior: Unchanged Discharge Plan Triage Chief Complaint: Male Pain/Injury ED Provider: Jaime Leger Dx/Rx/DC Orders Clinical Impression: Anasarca, Ischemic cardiomyopathy, Chronic kidney disease (CKD), Scrotal edema Instructions: ED Lymphedema Prescriptions: No Action aspirin [Adult Aspirin Regimen] 81 mg tablet,delayed release (DR/EC) 81 mg PO DAILY multivitamin [Daily Multi-Vitamin] tablet 1 tab PO DAILY glipizide 5 mg tablet 5 mg PO BID metolazone 2.5 mg tablet 2.5 mg PO .COMPLEX Qty: 10 0RF Rx Instructions: 2.5 mg orally once a week.; allopurinol 100 mg tablet 100 mg PO Q12H atorvastatin 80 mg tablet 80 mg PO QHS Rx Instructions: TAKE 1 TABLET AT BEDTIME isosorbide mononitrate 30 mg Tablet Extended Release 24 Hr 30 mg PO DAILY Qty: 30 2RF melatonin 10 mg capsule 10 mg PO QHS PRN (Reason: sleep) amiodarone 200 mg Tablet 200 mg PO DAILY Qty: 30 0RF oxycodone 5 mg Tablet 5 mg PO Q6H PRN (Reason: pain) 3 Days Qty: 12 0RF gabapentin 100 mg Capsule 100 mg PO TIDCM Qty: 90 0RF furosemide 40 mg tablet 60 mg PO BID Qty: 1 0RF Rx Instructions: Take 40 mg twice daily Wednesday and increase to 60 mg on Wednesday warfarin 4 mg tablet 4 mg PO QPM Protocol: Dose Management Condition: Wednesday Dose/Route: 4 mg Instruction: 1 x 4 mg tablet Condition: Wednesday Dose/Route: 4 mg Instruction: 1 x 4 mg tablet Condition: Wednesday Dose/Route: 4 mg Instruction: 1 x 4 mg tablet Condition: Wednesday Dose/Route: 4 mg Instruction: 1 x 4 mg tablet Condition: Dose/Route: 4 mg Instruction: 1 x 4 mg tablet Condition: Wednesday Dose/Route: 4 mg Instruction: 1 x 4 mg tablet Condition: Wednesday Dose/Route: 4 mg Instruction: 1 x 4 mg tablet Protocol Text: Adjustment Start Date: Wednesday08/24/23 INR Value: 2.5 INR Date: 08/24/23 Recheck Date: 09/07/23 Patient Comments: TAKE 1 TABLET BY MOUTH EVERY EVENING DIRECTED pantoprazole 40 mg tablet,delayed release (DR/EC) 40 mg PO DAILY Qty: 90 3RF nitroglycerin 0.4 mg tablet, sublingual 0.4 mg sublingual Q5-15M PRN (Reason: chest pain) Qty: 25 3RF Rx Instructions: do not exceed 3 doses per episode metoprolol tartrate 100 mg tablet 100 mg PO BID Qty: 180 3RF Primary Care Provider: Boston Figueroa Referrals: Sabas Bae MD [Med Staff - Active Staff] - As soon as possible (call after the weekend to set up the planned IV lasix infusions discussed at your last Cardiology appointment) Boston Figueroa MD [Primary Care Provider] - Disposition Disposition: Home, Self Care
[2023-08-29 00:59] LABS: Absolute Lymphocyte Count 0.94 X10^3/uL (0.83-4.51); Absolute Neutrophil Count 5.2 X10^3/uL (2.0-7.7); Basophil# 0.05 X10^3/uL; Basophil% 0.7 % (0-1); Eosinophils% 2.8 % (0-5); Hematocrit 40.2 % (40-54); Lymphocyte # 0.94 X10^3/ul (0.83-4.51); Lymphocyte % 13.4 % (19-41); Mean Corp Hgb Conc 29.9 g/dL (32-36); Mean Corpuscular Hgb 28.4 pg (27.0-32.0); Mean Platelet Vol. 10.6 fl (6.2-12.0); Monocyte# 0.58 X10^3/uL; Monocyte% 8.3 % (0-10); NRBC Flagged by Analyzer 0 % (0-5); Neutrophil # 5.23 X10^3/uL (2.7-7.7); Neutrophil % 74.5 % (47-70); Platelet Count 199 K/mm3 (150-450); RBC Distribution Width CV 17.9 % (11.6-14.6); Red Blood Count 4.23 M/mm3 (4.6-6.2)
[2023-08-29 01:04] LABS: International Normalized Ratio 3.4; Prothrombin Time (Protime)PT. 34.4 SECONDS (11.7-14.9)
[2023-08-29 01:13] LABS: Anion Gap 6 (5-15); BUN 54 mg/dL (7-18); BUN/Creat Ratio 26.1 RATIO (10-20); Calcium,Total 8.4 mg/dL (8.5-10.1); Chloride 104 mmol/L (98-107); Creatinine, Serum 2.07 mg/dL (0.70-1.30); EST Glomerular Filtration Rate 34 mL/min (>60); Est Glom Filt Rate - Afr Amer 41 mL/min (>60); Estimated Creatinine Clearance 32.33 ml/min; Glucose 178 mg/dL (74-106); Potassium 3.5 mmol/L (3.5-5.1); Sodium Level 141 mmol/L (136-145); Troponin-I HS 44 pg/mL (3.0-78.0)
[2023-08-29 01:29] VITALS: BP 102/58; PULSE 79; RESP 19; O2SAT 93
[2023-08-29] MEDS: Furosemide 100 MG/10 ML Vial 60 MG IV (01:31)
[2023-08-29 03:30] VITALS: BP 141/78; PULSE 79; RESP 16; O2SAT 93
[2023-08-29] MEDS: Furosemide 40 MG/4 ML Vial IV (03:31)
[2023-08-29 05:02] VITALS: BP 132/87; PULSE 80; RESP 16; RESP 18; O2SAT 94
== END 2023-08-29 05:32 | disposition home or self-care (01) ==
PROVIDERS: Emergency Provider Emergency Medicine; PCP Family Medicine; Visit Provider Emergency Medicine
DX: N50.89 Other specified disorders of the male genital organs (principal); J44.9 Chronic obstructive pulmonary disease, unspecified; I13.0 Hypertensive heart and chronic kidney disease with heart failure and stage 1 through stage 4 chronic kidney disease, or unspecified chronic kidney disease; I50.42 Chronic combined systolic (congestive) and diastolic (congestive) heart failure; E11.22 Type 2 diabetes mellitus with diabetic chronic kidney disease; R60.1 Generalized edema; N18.9 Chronic kidney disease, unspecified; I25.10 Atherosclerotic heart disease of native coronary artery without angina pectoris; E78.5 Hyperlipidemia, unspecified; L03.90 Cellulitis, unspecified; Z87.891 Personal history of nicotine dependence; E66.9 Obesity, unspecified; I87.2 Venous insufficiency (chronic) (peripheral); Z79.899 Other long term (current) drug therapy; I25.5 Ischemic cardiomyopathy
CPT/HCPCS: 71045; 74176; 80048; 83880; 84484; 85025; 85610; 93005; 96374; 96376; 99285; A4216; J1940

== ENCOUNTER 2023-08-30 16:49 | Inpatient (IN) | payer MEDICARE, SELFPAY ==
[2020-03-07 09:49] VITALS: BMI 41.8
[2023-08-30] VITALS (9 sets, daily range): BP systolic 99–123; BP diastolic 53–89; PULSE 69–88; RESP 12–24; TEMP 35.8–36.7; O2SAT 93–98; BMI 45.8; BMI 44.4
--- NOTE | 2023-08-30 17:27 | EDS_ITS ---
HPI History of Present Illness Chief Complaint: Edema Informant: patient and family (son) Narrative Narrative: Patient was seen here 2 nights ago for the same thing, saw his PCP at an appointment today and was sent back to the emergency department to get admitted. Patient states he has no new symptoms. He basically is having shortness of breath with exertion, some occasional intermittent sharp chest pains that are nonpleuritic, and edema that is still up to his abdomen but he really just noticed it in his scrotum which is no smaller despite the IV Lasix he was given in the emergency department and the oral Lasix and metolazone he is taking at home. He really notes his biggest complaint is that when he is trying to sit or sleep in his recliner, he cannot not sit on his scrotum and it is sore. [facility] Medical History A-fib Abdominal pain Abnormal stress test (07/2022) Acute exacerbation of CHF (congestive heart failure) Ambulates with cane Atherosclerosis of coronary artery without angina pectoris Bilateral lower extremity edema Cardiology follow-up encounter Chest pain CHF (congestive heart failure) Chronic anemia Chronic HFrEF (heart failure with reduced ejection fraction) Chronic kidney disease Chronic kidney disease (CKD) CKD stage 3 secondary to diabetes COPD (chronic obstructive pulmonary disease) Coronary artery disease Dermatitis Diabetes Diastolic dysfunction Elevated liver enzymes Elevated troponin Essential (primary) hypertension Fatty liver Former smoker Gastric ulcer Generalized muscle weakness GI (gastrointestinal bleed) Gout Heart murmur History of CHF (congestive heart failure) History of heart attack History of non-ST elevation myocardial infarction (NSTEMI) (05/05/21) History of non-ST elevation myocardial infarction (NSTEMI) History of stress test Hyperlipidemia Ischemic cardiomyopathy Kidney stones Longstanding persistent atrial fibrillation Low iron Non-rheumatic aortic stenosis NSTEMI, initial episode of care Obesity Obstructive sleep apnea Orthopnea Osteoarthritis Paroxysmal atrial fibrillation with RVR Secondary pulmonary arterial hypertension Shortness of breath on exertion Type 2 diabetes mellitus Home Medications aspirin 81 mg tablet,delayed release (Adult Aspirin Regimen) 81 mg PO DAILY heart health 04/14/18 [History Last Taken 08/16/23] multivitamin (Daily Multi-Vitamin tablet) 1 tab PO DAILY vitamin 01/25/19 [History Last Taken 08/08/23] allopurinol 100 mg tablet 100 mg PO Q12H GOUT 08/03/22 [History Last Taken 08/16/23] pantoprazole 40 mg tablet,delayed release 40 mg PO DAILY ppi #90 tabs 08/11/22 [Rx Last Taken 08/16/23] glipizide 5 mg tablet 5 mg PO BID diabetes 09/15/22 [History Last Taken 08/16] nitroglycerin 0.4 mg sublingual tablet 0.4 mg sublingual Q5-15M PRN chest pain #25 tabs 06/09/23 [Rx Last Taken Unknown] atorvastatin 80 mg tablet 80 mg PO QHS anticholesterol 06/29/23 [History Last Taken 08/15/23] isosorbide mononitrate 30 mg tablet,extended release 24 hr 30 mg PO DAILY see doctor #30 tabs 07/19/23 [Rx Last Taken 08/16/23] metoprolol tartrate 100 mg tablet 100 mg PO BID blood pressure #180 tabs 07/26/23 [Rx Last Taken 08/16/23] melatonin 10 mg capsule 10 mg PO QHS PRN sleep 08/08/23 [History Last Taken 08/08/23] amiodarone 200 mg tablet 200 mg PO DAILY #30 tabs 08/13/23 [Rx Last Taken 08/16/23] furosemide 40 mg tablet 60 mg (1.5 x 40 mg) PO BID diuretic #1 TAB 08/13/23 [Rx Last Taken 08/16/23] gabapentin 100 mg capsule 100 mg PO TIDCM #90 caps 08/13/23 [Rx Last Taken 08/16/23] oxycodone 5 mg tablet 5 mg PO Q6H PRN pain 3 days #12 tabs 08/13/23 [Rx Last Taken 08/16/23] warfarin 4 mg tablet 4 mg PO QPM 08/16/23 [History Last Taken 08/15/23] metolazone 2.5 mg tablet 2.5 mg PO .COMPLEX #10 tabs 08/24/23 [Rx Last Taken Unknown] Allergy/AdvReac Type Severity Reaction Status Date / Time metformin AdvReac Elevated Verified 08/30/23 16:51 LDH and anion gap Family History Mother , Age 80 Diabetes Hypertension Father , Age 55, coma Diabetes Hypertension Sister Hypertension Brother Diabetes Hypertension Cancer, Onset Age: 50 prostate cancer CAD (coronary artery disease) Surgical History History of appendectomy History of cardiac catheterization History of coronary artery stent placement (01/24/20) History of esophagogastroduodenoscopy (EGD) History of herniorrhaphy History of left heart catheterization (07/13/22) History of tonsillectomy History of total knee replacement (TKR) Status post cholecystectomy Social History household members: children Smoking Status: Former smoker quit date: 01/31/11 alcohol intake: current alcohol intake frequency: holidays/special occasions only substance use type: does not use caffeine: Yes Type: coffee ROS ROS ED Constitutional Constitutional ED: Denies chills or fever(s) Eyes Eyes: Denies change in vision or diplopia Cardiovascular Cardiovascular: Reports leg edema, orthopnea and other Details: intermittent chest pain, not currently ; Denies palpitations Respiratory/Chest Respiratory/Chest: Reports dyspnea on exertion and orthopnea; Denies cough Gastrointestinal Gastrointestinal: Denies abdominal pain, diarrhea, nausea or vomiting Genitourinary Genitourinary ED: Reports as per HPI and scrotal swelling; Denies dysuria or hematuria Musculoskeletal Musculoskeletal: Denies back pain or neck pain Integumentary Reports rash Neurologic Neurologic: Denies headache(s), paresthesias or weakness EXAM Physical Exam Const Vital Signs: 08/30/23 16:49 08/30/23 17:15 08/30/23 17:43 Temperature 96.5 F L Temperature Source Temporal Pulse Rate 69 81 Respiratory Rate 18 24 H Respiratory Effort Normal Respiratory Pattern Tachypnea Blood Pressure 108/53 L 99/87 H Blood Pressure Mean 71 91 Pulse Ox 97 93 Oxygen Delivery Method Room Air Room Air 08/30/23 17:45 08/30/23 17:51 Temperature 98.1 F Temperature Source Temporal Pulse Rate 75 80 Respiratory Rate 16 14 Respiratory Effort Respiratory Pattern Blood Pressure 101/74 118/88 H Blood Pressure Mean 83 98 Pulse Ox 94 96 Oxygen Delivery Method Room Air Room Air Positive well nourished and well developed Constitutional Narrative: Morbidly obese General Appearance ED: well developed and NAD HEENT Reports moist mucous membranes normocephalic and atraumatic Eyes PERRL and EOMs intact bilaterally Neck full ROM, no lymphadenopathy and supple Resp normal respiratory effort Resp Narrative: Few bibasilar Rales and rhonchi, no respiratory distress speaking in full sentences Cardio regular rate, regular rhythm and no murmurs Rate: Negative for tachycardic GI non-tender and non-distended GI Narrative: Peau d'orange appearance lower abdominal wall without tenderness Auscultation: normoactive bowel sounds Palpation: soft Narrative: Severe scrotal edema, no wounds or erythema. Testicles not palpable. No subcutaneous emphysema in the perineum or the scrotum or necrotic tissue. Back/Spine no CVA tenderness Extremity Extremity Narrative: Severely edematous extremities with signs of chronic stasis dermatitis in the right ankle and a line drawn around a fading cellulitic area on the left lower leg up to the proximal marquis which is nontender, no necrotic tissue or signs of an abscess anywhere; unchanged exam compared with my prior 2 days ago. General Extremety ED: Yes edema; Negative for pulses abnormal or tenderness General Extremity: edema bilateral lower extremity Details: severe; Negative for pulses abnormal Neuro oriented x3, CN's II-XII intact bilaterally and no sensory deficits noted Sensorium / Orientation: awake and alert Motor Exam: strength 5/5 throughout Psych mental status grossly normal Skin no wounds Skin Narrative: Rash on left lower leg see above for details MDM MDM MDM Narrative Medical decision making narrative: I tried to discuss with PCP, Dr. Hernandez was available because it was after hours. We discussed the patient in the scenario. We both mutually agree that it would be reasonable to try to admit the patient under the current circumstances. I am repeating his labs, but clinically his condition is unchanged and his exam is unchanged compared with mine 1.5 days ago. His blood pressure is borderline before giving Lasix, 101/74. The other night we gave him the Lasix and his blood pressure dropped into the 90s, it came back up and we gave him another dose of Lasix, and watched him for a while and he did not become hypotensive then, so I am okay giving the dose now to try to help diurese him. I think this helps to justify making him an inpatient for this and possibly having nephrology see him. History & Record Review Additional record(s) reviewed:: Prior ED visit Lab Data Attestation: I reviewed the patient's lab results. Labs: Laboratory Results - last 24 hr 08/30/23 17:30 WBC 6.5 RBC 4.13 L Hgb 11.7 L Hct 38.7 L MCV 93.7 MCH 28.3 MCHC 30.2 L RDW Std Deviation 60.7 H RDW Coeff of Raphael 17.8 H Plt Count 171 MPV 10.2 Immature Gran % (Auto) 0.300 Neut % (Auto) 72.3 H Lymph % (Auto) 13.2 L Holmes % (Auto) 10.7 H Eos % (Auto) 2.9 Baso % (Auto) 0.6 Absolute Neuts (auto) 4.7 Absolute Lymphs (auto) 0.85 Nucleated RBC % 0 Sodium 139 Potassium 3.3 L Chloride 106 Carbon Dioxide 28.0 Anion Gap 5 BUN 59 H Creatinine 2.28 H Estim Creat Clear Calc 29.35 Est GFR (MDRD) Af Amer 36 L Est GFR (MDRD) Non-Af 30 L BUN/Creatinine Ratio 25.9 H Glucose 130 H Calcium 8.2 L Troponin I High Sens 40 Radiography Chest X-Ray - ED: 1 View, Read by ED Physician, No Acute Disease and Chronic Changes Rhythm Strip Rhythm Strip: A-fib Rate: 75 Ectopy: None EKG Initial EKG: Attestation: I personally reviewed and interpreted this EKG as follows: Interpretation: No Acute Injury Pattern and Atrial Fibrillation (Rate 77) Prior EKG tracings: available for review Prior: Unchanged Management Discussion w/another healthcare provider: Hospitalist and PCP Discharge Plan Dx/Rx/DC Orders Clinical Impression: Ischemic cardiomyopathy, Chronic kidney disease (CKD), Anasarca, Longstanding persistent atrial fibrillation, Scrotal edema, Debility Disposition Disposition: Acute Care [facility]
--- NOTE | 2023-08-30 17:27 | EKG12_ITS ---
Test Reason : Blood Pressure : / mmHG Vent. Rate : 077 BPM Atrial Rate : 000 BPM P-R Int : 000 ms QRS Dur : 102 ms QT Int : 396 ms P-R-T Axes : 000 -14 182 degrees QTc Int : 448 ms Atrial fibrillation Anterior infarct , age undetermined Abnormal ECG Confirmed by REYNA MOYER, CINTHYA ([id number]), newspaper or periodical editor COLLIN MORENO ([id number]) on 09/01/2023 6:50:06 AM Referred By: Confirmed By:CINTHYA ORELLANA MD
--- NOTE | 2023-08-30 17:49 | RAD_ITS ---
INDICATION: sob EXAMINATION/TECHNIQUE: X-RAY - XR Chest 1 View COMPARISON: 08/29/2023. FINDINGS: LINES/DEVICES: None. LUNGS: No consolidation, edema or effusion. No pneumothorax. MEDIASTINUM AND CARDIOVASCULAR STRUCTURES: Cardiac silhouette not enlarged. Central airways and mediastinal contour are unremarkable. BONES AND SOFT TISSUES: Unremarkable. RAD/Chest 1 View (Portable) IMPRESSION: No radiographic evidence of acute cardiopulmonary disease. Electronically Signed: Sonia Lo MD at 18:58 EDT Reading Location ID and State: [id number] / Tel , Service support ,
[2023-08-30 17:50] LABS: Absolute Lymphocyte Count 0.85 X10^3/uL (0.83-4.51); Absolute Neutrophil Count 4.7 X10^3/uL (2.0-7.7); Basophil# 0.04 X10^3/uL; Basophil% 0.6 % (0-1); Eosinophil# 0.19 X10^3/uL; Eosinophils% 2.9 % (0-5); Hematocrit 38.7 % (40-54); Hemoglobin 11.7 g/dL (13.0-16.5); Lymphocyte # 0.85 X10^3/ul (0.83-4.51); Lymphocyte % 13.2 % (19-41); Mean Corp Hgb Conc 30.2 g/dL (32-36); Mean Corpuscular Hgb 28.3 pg (27.0-32.0); Mean Corpuscular Volume 93.7 fL (80-94); Mean Platelet Vol. 10.2 fl (6.2-12.0); Monocyte# 0.69 X10^3/uL; Monocyte% 10.7 % (0-10); NRBC Flagged by Analyzer 0 % (0-5); Neutrophil # 4.67 X10^3/uL (2.7-7.7); Neutrophil % 72.3 % (47-70); Platelet Count 171 K/mm3 (150-450); RBC Distribution Width CV 17.8 % (11.6-14.6); RBC Distribution Width SD 60.7 fl (35.1-43.9); Red Blood Count 4.13 M/mm3 (4.6-6.2); White Blood Count 6.5 K/mm3 (4.4-11.0)
[2023-08-30] MEDS: Furosemide 100 MG/10 ML Vial 60 MG IV (17:55)
[2023-08-30 18:06] LABS: Anion Gap 5 (5-15); BUN 59 mg/dL (7-18); BUN/Creat Ratio 25.9 RATIO (10-20); Calcium,Total 8.2 mg/dL (8.5-10.1); Chloride 106 mmol/L (98-107); Creatinine, Serum 2.28 mg/dL (0.70-1.30); EST Glomerular Filtration Rate 30 mL/min (>60); Est Glom Filt Rate - Afr Amer 36 mL/min (>60); Estimated Creatinine Clearance 29.35 ml/min; Glucose 130 mg/dL (74-106); Potassium 3.3 mmol/L (3.5-5.1); Sodium Level 139 mmol/L (136-145); Troponin-I HS 40 pg/mL (3.0-78.0)
--- NOTE | 2023-08-30 19:40 | HP.PCM_ITS ---
HPI - General General Date of Admission: 08/30/23 Date of Service: 08/30/23 Chief Complaint: scrotal edema HPI Narrative LUIS DEE, is a 73 M who presents to the emergency room with chief complaint of scrotal swelling and pain. Patient was seen and treated in the hospital 2 days prior for similar complaint and went to see his primary care physician today in the office and was sent to the emergency room for readmission. Patient denies any chest pain, shortness of breath or fevers or chills. But does have right hip pain and has difficulty ambulating at baseline. It was determined that he did not improve adequately on oral diuretic medications that he may need IV medication therapy. He will be admitted overnight for observation and treated with IV Lasix. [facility] Medical History A-fib Abdominal pain Abnormal stress test (07/2022) Acute exacerbation of CHF (congestive heart failure) Ambulates with cane Atherosclerosis of coronary artery without angina pectoris Bilateral lower extremity edema Cardiology follow-up encounter Chest pain CHF (congestive heart failure) Chronic anemia Chronic HFrEF (heart failure with reduced ejection fraction) Chronic kidney disease Chronic kidney disease (CKD) CKD stage 3 secondary to diabetes COPD (chronic obstructive pulmonary disease) Coronary artery disease Dermatitis Diabetes Diastolic dysfunction Elevated liver enzymes Elevated troponin Essential (primary) hypertension Fatty liver Former smoker Gastric ulcer Generalized muscle weakness GI (gastrointestinal bleed) Gout Heart murmur History of CHF (congestive heart failure) History of heart attack History of non-ST elevation myocardial infarction (NSTEMI) (05/05/21) History of non-ST elevation myocardial infarction (NSTEMI) History of stress test Hyperlipidemia Ischemic cardiomyopathy Kidney stones Longstanding persistent atrial fibrillation Low iron Non-rheumatic aortic stenosis NSTEMI, initial episode of care Obesity Obstructive sleep apnea Orthopnea Osteoarthritis Paroxysmal atrial fibrillation with RVR Secondary pulmonary arterial hypertension Shortness of breath on exertion Type 2 diabetes mellitus Home Medications aspirin 81 mg tablet,delayed release (Adult Aspirin Regimen) 81 mg PO DAILY heart health 04/14/18 [History Last Taken 08/16/23] multivitamin (Daily Multi-Vitamin tablet) 1 tab PO DAILY vitamin 01/25/19 [History Last Taken 08/08/23] allopurinol 100 mg tablet 100 mg PO Q12H GOUT 08/03/22 [History Last Taken 08/16/23] pantoprazole 40 mg tablet,delayed release 40 mg PO DAILY ppi #90 tabs 08/11/22 [Rx Last Taken 08/16/23] glipizide 5 mg tablet 5 mg PO BID diabetes 09/15/22 [History Last Taken 08/16/23] nitroglycerin 0.4 mg sublingual tablet 0.4 mg sublingual Q5-15M PRN chest pain #25 tabs 06/09/23 [Rx Last Taken Unknown] atorvastatin 80 mg tablet 80 mg PO QHS anticholesterol 06/29/23 [History Last Taken 08/15/23] isosorbide mononitrate 30 mg tablet,extended release 24 hr 30 mg PO DAILY see doctor #30 tabs 07/19/23 [Rx Last Taken 08/16/23] metoprolol tartrate 100 mg tablet 100 mg PO BID blood pressure #180 tabs 07/26/23 [Rx Last Taken 08/16/23] melatonin 10 mg capsule 10 mg PO QHS PRN sleep 08/08/23 [History Last Taken 08/08/23] amiodarone 200 mg tablet 200 mg PO DAILY #30 tabs 08/13/23 [Rx Last Taken 08/16/23] furosemide 40 mg tablet 60 mg (1.5 x 40 mg) PO BID diuretic #1 TAB 08/13/23 [Rx Last Taken 08/16/23] gabapentin 100 mg capsule 100 mg PO TIDCM #90 caps 08/13/23 [Rx Last Taken 08/16/23] oxycodone 5 mg tablet 5 mg PO Q6H PRN pain 3 days #12 tabs 08/13/23 [Rx Last Taken 08/16/23] warfarin 4 mg tablet 4 mg PO QPM 08/16/23 [History Last Taken 08/15/23] metolazone 2.5 mg tablet 2.5 mg PO .COMPLEX #10 tabs 08/24/23 [Rx Last Taken Unknown] Allergy/AdvReac Type Severity Reaction Status Date / Time metformin AdvReac Elevated Verified 08/30/23 16:51 LDH and anion gap Family History Mother , Age 80 Diabetes Hypertension Father , Age 55, coma Diabetes Hypertension Sister Hypertension Brother Diabetes Hypertension Cancer, Onset Age: 50 prostate cancer CAD (coronary artery disease) Surgical History History of appendectomy History of cardiac catheterization History of coronary artery stent placement (01/24/20) History of esophagogastroduodenoscopy (EGD) History of herniorrhaphy History of left heart catheterization (07/13/22) History of tonsillectomy History of total knee replacement (TKR) Status post cholecystectomy Social History household members: children Smoking Status: Former smoker quit date: 01/31/11 alcohol intake: current alcohol intake frequency: holidays/special occasions only substance use type: does not use caffeine: Yes Type: coffee ROS Constitutional Constitutional: Denies change in weight, chills or fever(s) Eyes Eyes: Denies change in vision ENT HEENT: Denies abnormal hearing Cardiovascular Cardiovascular: Reports edema; Denies chest pain or palpitations Respiratory/Chest Respiratory/Chest: Denies cough or shortness of breath at rest Gastrointestinal Gastrointestinal: Denies abdominal pain Genitourinary Genitourinary: Denies dysuria Musculoskeletal Musculoskeletal: Reports joint pain; Denies back pain Integumentary Integumentary: Denies wounds Neurologic Neurologic: Denies abnormal speech or confusion Psychiatric Psychiatric: Denies anxiety or depression Endocrine Endocrinology: Denies polyuria Vital Signs Vital Signs Vital Signs: 08/30/23 16:49 08/30/23 17:15 08/30/23 17:43 Temperature 96.5 F L Temperature Source Temporal Pulse Rate 69 81 Respiratory Rate 18 24 H Respiratory Effort Normal Respiratory Pattern Tachypnea Blood Pressure 108/53 L 99/87 H Blood Pressure Mean 71 91 Pulse Ox 97 93 Oxygen Delivery Method Room Air Room Air 08/30/23 17:45 08/30/23 17:51 08/30/23 18:30 Temperature 98.1 F Temperature Source Temporal Pulse Rate 75 80 82 Respiratory Rate 16 14 16 Respiratory Effort Respiratory Pattern Blood Pressure 101/74 118/88 H 114/87 H Blood Pressure Mean 83 98 96 Pulse Ox 94 96 94 Oxygen Delivery Method Room Air Room Air Room Air Weight Weight: 319 lb 7.197 oz Body Mass Index (BMI) 45.8 Physical Exam Const alert and oriented x3 General Appearance: cooperative and well developed HEENT normocephalic and head/scalp atraumatic Eyes PERRL Neck no lymphadenopathy Lymph Lymphatic: lymphedema pitting Resp normal air movement and clear to auscultation bilaterally Cardio regular rate, regular rhythm, S1 normal heart sound and S2 normal heart sound GI normal to inspection, nondistended, normoactive bowel sounds GI Narrative: Marked scrotal swelling/edema Extremity General Extremity: edema bilateral lower extremity Details: severe Skin General Skin Exam: dry skin Neuro no focal motor deficits and no sensory deficits noted Psych cooperative and affect normal Results Lab / Micro Data 08/30/23 17:30 08/30/23 17:30 Labs: Laboratory Results - last 24 hr 08/30/23 17:30: WBC 6.5, RBC 4.13 L, Hgb 11.7 L, Hct 38.7 L, MCV 93.7, MCH 28.3, MCHC 30.2 L, RDW Std Deviation 60.7 H, RDW Coeff of Raphael 17.8 H, Plt Count 171, MPV 10.2, Immature Gran % (Auto) 0.300, Neut % (Auto) 72.3 H, Lymph % (Auto) 13.2 L, [place] % (Auto) 10.7 H, Eos % (Auto) 2.9, Baso % (Auto) 0.6, Absolute Neuts (auto) 4.7, Absolute Lymphs (auto) 0.85, Nucleated RBC % 0, Sodium 139, Potassium 3.3 L, Chloride 106, Carbon Dioxide 28.0, Anion Gap 5, BUN 59 H, Creatinine 2.28 H, Estim Creat Clear Calc 29.35, Est GFR (MDRD) Af Amer 36 L, Est GFR (MDRD) Non-Af 30 L, BUN/Creatinine Ratio 25.9 H, Glucose 130 H, Calcium 8.2 L, Troponin I High Sens 40 Rhythm Strip Rhythm Strip: A-fib Rate: 75 Ectopy: None Radiology Impression Chest X-Ray 08/30/23 17:49 IMPRESSION: No radiographic evidence of acute cardiopulmonary disease. Electronically Signed: Sonia Lo MD at 18:58 EDT Reading Location ID and State: [id number] / Tel , Service support , Assessment & Plan Assessment/Plan (1) Scrotal edema: (2) Chronic kidney disease (CKD): (3) Ischemic cardiomyopathy: (4) Longstanding persistent atrial fibrillation: (5) Inability to walk: PLAN: Plan 1 anasarca?admit patient to general medical floor for observation?IV Lasix 40 mg twice daily, metolazone 5 mg IV daily, repeat BMP in the morning and consider nephrology consult 2. DVT prophylaxis?SCDs 3. Atrial fibrillation?continue anticoagulation therapy rate is controlled 4. Scrotal swelling?patient complains of significant pain will give oxycodone 5 mg every 6 hours as needed pain 5. Patient is likely candidate for rehab facility due to his right hip pain and difficulty ambulating along with his edema which will remain a chronic issue. We will have case management to assist with discharge planning Charges/Coding Visit Charges OBSV E&M: 87992 Observ/hosp same date L2
[2023-08-30] MEDS: Metoprolol Tartrate 100 MG Tablet PO (22:54)
[2023-08-30] MEDS: Atorvastatin Calcium 80 MG Tablet PO (22:54)
[2023-08-30] MEDS: Potassium Chloride Oral Tablet 20 MEQ 40 MEQ PO (22:54)
[2023-08-30] MEDS: oxyCODONE 5 MG Tablet PO (23:58)
[2023-08-31 03:30] VITALS: BP 107/86; PULSE 88; RESP 18; TEMP 36.8; O2SAT 92
[2023-08-31] MEDS: Miconazole Nitrate 43 GM Bottle 1 APPLIC TOPICAL ×3 (05:48→22:34)
[2023-08-31 07:37] LABS: Anion Gap 4 (5-15); BUN 59 mg/dL (7-18); BUN/Creat Ratio 25.8 RATIO (10-20); Calcium,Total 8.3 mg/dL (8.5-10.1); Chloride 102 mmol/L (98-107); Creatinine, Serum 2.29 mg/dL (0.70-1.30); EST Glomerular Filtration Rate 30 mL/min (>60); Est Glom Filt Rate - Afr Amer 36 mL/min (>60); Estimated Creatinine Clearance 29.22 ml/min; Glucose 168 mg/dL (74-106); Potassium 3.4 mmol/L (3.5-5.1); Sodium Level 140 mmol/L (136-145)
[2023-08-31] MEDS: oxyCODONE 5 MG Tablet PO ×2 (08:58→18:59)
[2023-08-31 10:57] VITALS: BP 119/79; PULSE 96; RESP 16; TEMP 36.4; O2SAT 96
[2023-08-31] MEDS: Allopurinol 100 MG Tablet PO ×2 (11:04→17:48)
[2023-08-31] MEDS: Gabapentin 100 MG Capsule PO ×3 (11:04→17:48)
[2023-08-31] MEDS: Amiodarone 200 MG Tablet PO (11:04)
[2023-08-31] MEDS: Multivitamins,Therapeutic Tablet 1 TABLET PO (11:04)
[2023-08-31] MEDS: glipiZIDE 5 MG Tablet PO ×2 (11:04→17:48)
[2023-08-31 11:05] VITALS: BP 119/79; PULSE 96
[2023-08-31] MEDS: Isosorbide Mononitrate 30 MG Tablet PO (11:05)
[2023-08-31] MEDS: Furosemide 40 MG/4 ML Vial IV (11:05)
[2023-08-31] MEDS: Metoprolol Tartrate 100 MG Tablet PO ×2 (11:05→22:35)
[2023-08-31] MEDS: metOLazone 5 MG Tablet PO (11:06)
[2023-08-31] MEDS: Pantoprazole Sodium 40 MG Tablet PO (11:06)
[2023-08-31] MEDS: 0.9% Saline Lock 10 ML Syringe IV ×2 (11:10→12:28)
--- NOTE | 2023-08-31 11:36 | PCM.PN.HOSP ---
Reason for Visit Reason for Visit: Diagnoses Ischemic cardiomyopathy (08/30/23) Longstanding persistent atrial fibrillation (08/30/23) Chronic kidney disease, unspecified (08/30/23) Other specified disorders of the male genital organs (08/30/23) Difficulty in walking, not elsewhere classified (08/30/23) Subjective Subjective Patient is a 73-year-old gentleman with history of congestive heart failure with reduced ejection fraction who presented with increasing swelling and shortness of breath Objective Data Objective Data Vital Signs: Vital Signs Temp Pulse Resp BP Pulse Ox O2 Del Method 97.6 F L 96 16 119/79 96 Room Air 08/31/23 10:57 08/31/23 11:05 08/31/23 10:57 08/31/23 11:05 08/31/23 10:57 08/31/23 11:22 Oxygen Delivery Method Room Air Weight: 140.3 kg Body Mass Index (BMI) 44.4 Intake & Output: Intake and Output for Last 24 Hours 08/29/23 08/30/23 08/31/23 23:59 23:59 23:59 Intake Total 540 / 540 Output Total 450 / 450 150 / 150 Balance -450 / -210 390 / 390 Lab / Micro Data 08/30/23 17:30 08/31/23 06:50 Labs: Laboratory Results - last 24 hr 08/30/23 17:30: WBC 6.5, RBC 4.13 L, Hgb 11.7 L, Hct 38.7 L, MCV 93.7, MCH 28.3, MCHC 30.2 L, RDW Std Deviation 60.7 H, RDW Coeff of Raphael 17.8 H, Plt Count 171, MPV 10.2, Immature Gran % (Auto) 0.300, Neut % (Auto) 72.3 H, Lymph % (Auto) 13.2 L, [place] % (Auto) 10.7 H, Eos % (Auto) 2.9, Baso % (Auto) 0.6, Absolute Neuts (auto) 4.7, Absolute Lymphs (auto) 0.85, Nucleated RBC % 0, Sodium 139, Potassium 3.3 L, Chloride 106, Carbon Dioxide 28.0, Anion Gap 5, BUN 59 H, Creatinine 2.28 H, Estim Creat Clear Calc 29.35, Est GFR (MDRD) Af Amer 36 L, Est GFR (MDRD) Non-Af 30 L, BUN/Creatinine Ratio 25.9 H, Glucose 130 H, Calcium 8.2 L, Troponin I High Sens 40 08/31/23 06:50: Sodium 140, Potassium 3.4 L, Chloride 102, Carbon Dioxide 34.0 H, Anion Gap 4 L, BUN 59 H, Creatinine 2.29 H, Estim Creat Clear Calc 29.22, Est GFR (MDRD) Af Amer 36 L, Est GFR (MDRD) Non-Af 30 L, BUN/Creatinine Ratio 25.8 H, Glucose 168 H, Calcium 8.3 L Radiography Diagnostic Testing: Radiology Impression Chest X-Ray 08/30/23 17:49 IMPRESSION: No radiographic evidence of acute cardiopulmonary disease. Electronically Signed: Sonia Lo MD at 18:58 EDT Reading Location ID and State: [id number] / Tel , Service support , Rhythm Strip Rhythm Strip: A-fib Rate: 75 Ectopy: None Physical Exam Narrative GENERAL: cooperative HEENT: Atraumatic; normocephalic EYES; Anicteric, Normal Conjunctiva NECK; supple, normal thyroid, RESPIRATORY: Diminished to auscultation CARDIOVASCULAR: Regular S1 S2, GI: soft, normoactive bowel sounds, : No Renal angle tenderness; EXTREMITIES: Edema involving both lower extremities MUSCULOSKELETAL: no muscle wasting NEURO: Awake; no lateralizing signs. SKIN: No Rash PSYCH; Flat affect Assessment & Plan Assessment/Plan (1) Anasarca: PLAN: Plan Patient is a 73-year-old gentleman with history of congestive heart failure with reduced ejection fraction who presented with increasing swelling and shortness of breath 1. Acute on chronic congestive heart failure with reduced ejection fraction ? Echo from 06/29/2023 demonstrated EF of 40%. Patient admitted to monitored bed. Started on IV diuretics, strict input and output, low-sodium diet, daily weights and supplemental oxygen 2. Chronic kidney disease stage IIIb ? Patient kidney at baseline 3. Paroxysmal atrial fibrillation ? Patient is on amiodarone for rate control as well as systemic anticoagulation with Coumadin we will monitor with daily PT/INR INR 4. Class III obesity with BMI of 44.4 ? Complicating care weight loss advised 5. GERD ? On PPI 6. Diabetes mellitus type II -patient's oral hypoglycemics held. Placed on long acting insulin, Accu-Cheks a.c. and at bedtime and covered with sliding scale insulin 7. Hypertension - Blood pressure controlled, home medications continued with dose adjustment as needed 8. Coronary artery disease with multiple TAMIA in the past ? Stable plan is to continue with guideline directed medical therapy 9. DVT prophylaxis ? Patient is on Coumadin Time spent in the patient's overall evaluation,decision-making process, review of diagnostic data, adjustment of management, discussion with other providers, nursing nursing and ancillary staff involved in patient's care documentation, 52 Minutes Charges/Coding Visit Charges Inpatient E&M: 44971 [facility] Hosp L3
[2023-08-31] MEDS: Furosemide 500 MG in Empty Viaflex 50 mL 1 EACH CONT INF (12:28)
--- NOTE | 2023-08-31 15:44 | CHAPLAIN ---
Type of Pastoral Visit _x__ Initial Visit ___ Follow-up Visit ___ On-call Visit ___ General Patient Visit ___ Spiritual Assessment ___ Family Conference ___ Bereavement ___ Rapid Response ___ Code Blue ___ Other (describe below) Pastoral Care Referral From _x__ Patient ___ Family ___ Nurse ___ Physician ___ Cull Grader ___ Property Management Intern ___ Other (describe below) Sacrament/Intervention _x__ Active listening ___ Anointing ___ Hoahaoism ___ Bereavement ___ Communion _x__ Genia exploration ___ _x__ Life review _x__ Prayer ___ Reconciliation ___ Sacrament of Sick _x__ Supportive presence ___ Wedding ___ Other (describe below) Pastoral Comments patient has been seen several times recently in admissions to this hospital; pt asks verbally for this call center professional to see him; pt talks about his relationships and indicates personal matters; pt expresses his genia in God and seeks spiritual care support and prayer; pt is given time to talk which he likes to do and to be present in the situation
--- NOTE | 2023-08-31 16:33 | CASEMGMT ---
Met with patient to complete DAVALOS form. DAVALOS form explained to patient who voiced understanding and signed form. Original form placed in pt?s chart and copy provided to patient. Mable Robertson, Discharge Planning Asst
[2023-08-31 17:37] VITALS: BP 111/87; PULSE 94; RESP 16; TEMP 36.7; O2SAT 95
[2023-08-31] MEDS: Potassium Chloride Oral Tablet 20 MEQ PO (17:48)
[2023-08-31 18:40] LABS: International Normalized Ratio 3.6; Prothrombin Time (Protime)PT. 36.3 SECONDS (11.7-14.9)
[2023-08-31 22:22] VITALS: BP 109/74; PULSE 87; RESP 15; TEMP 36.6; O2SAT 95
[2023-08-31] MEDS: Atorvastatin Calcium 80 MG Tablet PO (22:34)
[2023-08-31 22:35] VITALS: PULSE 87
[2023-09-01 04:36] VITALS: BP 114/61; PULSE 77; RESP 15; TEMP 36.5; O2SAT 96
[2023-09-01] MEDS: Miconazole Nitrate 43 GM Bottle 1 APPLIC TOPICAL ×3 (04:53→21:28)
[2023-09-01 06:00] LABS: Absolute Neutrophil Count 4.7 X10^3/uL (2.0-7.7); Basophil# 0.04 X10^3/uL; Basophil% 0.6 % (0-1); Eosinophil# 0.24 X10^3/uL; Eosinophils% 3.7 % (0-5); Hematocrit 37.7 % (40-54); Hemoglobin 11.4 g/dL (13.0-16.5); Lymphocyte % 13.7 % (19-41); Mean Corp Hgb Conc 30.2 g/dL (32-36); Mean Corpuscular Hgb 28.4 pg (27.0-32.0); Mean Platelet Vol. 10.1 fl (6.2-12.0); Monocyte# 0.67 X10^3/uL; Monocyte% 10.2 % (0-10); NRBC Flagged by Analyzer 0 % (0-5); Neutrophil # 4.69 X10^3/uL (2.7-7.7); Neutrophil % 71.3 % (47-70); Platelet Count 168 K/mm3 (150-450); RBC Distribution Width CV 17.7 % (11.6-14.6); RBC Distribution Width SD 61.1 fl (35.1-43.9); Red Blood Count 4.01 M/mm3 (4.6-6.2); White Blood Count 6.6 K/mm3 (4.4-11.0)
[2023-09-01 06:08] LABS: International Normalized Ratio 3.4; Prothrombin Time (Protime)PT. 34.7 SECONDS (11.7-14.9)
[2023-09-01 06:26] LABS: Anion Gap 6 (5-15); BUN 60 mg/dL (7-18); Calcium,Total 8.6 mg/dL (8.5-10.1); Chloride 101 mmol/L (98-107); EST Glomerular Filtration Rate 28 mL/min (>60); Est Glom Filt Rate - Afr Amer 34 mL/min (>60); Estimated Creatinine Clearance 27.88 ml/min; Glucose 106 mg/dL (74-106); Magnesium 2.1 mg/dL (1.6-2.6); Phosphorus 3.6 mg/dL (2.5-4.9); Potassium 3.5 mmol/L (3.5-5.1); Sodium Level 140 mmol/L (136-145)
[2023-09-01 07:09] LABS: Bedside Glucose 126 mg/dL (74-106)
[2023-09-01] MEDS: Furosemide 500 MG in Empty Viaflex 50 mL 1 EACH CONT INF (07:18)
--- NOTE | 2023-09-01 08:27 | PCM.PN.HOSP ---
Reason for Visit Reason for Visit: Diagnoses Ischemic cardiomyopathy (08/30/23) Longstanding persistent atrial fibrillation (08/30/23) Chronic kidney disease, unspecified (08/30/23) Other specified disorders of the male genital organs (08/30/23) Difficulty in walking, not elsewhere classified (08/30/23) Generalized edema (08/30/23) Objective Data Objective Data Vital Signs: Vital Signs Temp Pulse Resp BP Pulse Ox O2 Del Method 97.7 F L 77 15 114/61 96 Room Air 09/01/23 04:36 09/01/23 04:36 09/01/23 04:36 09/01/23 04:36 09/01/23 04:36 09/01/23 08:17 Oxygen Delivery Method Room Air Weight: 140.3 kg Body Mass Index (BMI) 44.4 Intake & Output: Intake and Output for Last 24 Hours 08/30/23 08/31/23 09/01/23 23:59 23:59 23:59 Intake Total 540 / 650 267.67 / 267.67 Output Total 450 / 450 1400 / 2200 1700 / 1700 Balance -450 / -210 -860 / -1550 -1432.33 / -1432.33 Lab / Micro Data 09/01/23 05:40 09/01/23 05:40 Labs: Laboratory Results - last 24 hr 08/31/23 18:15: PT 36.3 H, INR 3.6 09/01/23 05:40: WBC 6.6, RBC 4.01 L, Hgb 11.4 L, Hct 37.7 L, MCV 94.0, MCH 28.4, MCHC 30.2 L, RDW Std Deviation 61.1 H, RDW Coeff of Raphael 17.7 H, Plt Count 168, MPV 10.1, Immature Gran % (Auto) 0.500, Neut % (Auto) 71.3 H, Lymph % (Auto) 13.7 L, [place] % (Auto) 10.2 H, Eos % (Auto) 3.7, Baso % (Auto) 0.6, Absolute Neuts (auto) 4.7, Absolute Lymphs (auto) 0.90, Nucleated RBC % 0, PT 34.7 H, INR 3.4, Sodium 140, Potassium 3.5, Chloride 101, Carbon Dioxide 33.0 H, Anion Gap 6, BUN 60 H, Creatinine 2.40 H, Estim Creat Clear Calc 27.88, Est GFR (MDRD) Af Amer 34 L, Est GFR (MDRD) Non-Af 28 L, BUN/Creatinine Ratio 25.0 H, Glucose 106, Calcium 8.6, Phosphorus 3.6, Magnesium 2.1 09/01/23 06:45: POC Glucose 126 H Rhythm Strip Rhythm Strip: A-fib Rate: 75 Ectopy: None Physical Exam Narrative GENERAL: cooperative HEENT: Atraumatic; normocephalic EYES; Anicteric, Normal Conjunctiva NECK; supple, normal thyroid, RESPIRATORY: Diminished to auscultation CARDIOVASCULAR: Regular S1 S2, GI: soft, normoactive bowel sounds, abdominal wall edema all the way up to his breast : No Renal angle tenderness; EXTREMITIES: Edema involving both lower extremities circumferentially up to the groin MUSCULOSKELETAL: no muscle wasting NEURO: Awake; no lateralizing signs. SKIN: No Rash PSYCH; Flat affect Assessment & Plan Assessment/Plan (1) Anasarca: PLAN: Plan Patient is a 73-year-old gentleman with history of congestive heart failure with reduced ejection fraction who presented with increasing swelling and shortness of breath 1. Acute on chronic congestive heart failure with reduced ejection fraction ? Echo from 06/29/2023 demonstrated EF of 40%. Patient admitted to monitored bed. Started on IV diuretics, strict input and output, low-sodium diet, daily weights and supplemental oxygen ? 09/01/2023 given patient extensive anasarca his IV scheduled Lasix 40 every 12 was discontinued patient started on Lasix drip 20 mg per. We will continue with monitoring of daily weights as well as electrolytes 2. Chronic kidney disease stage IIIb ? Patient kidney at baseline ? 09/01/2023 monitoring of kidney function with daily BMPs ordered 3. Paroxysmal atrial fibrillation ? Patient is on amiodarone for rate control as well as systemic anticoagulation with Coumadin we will monitor with daily PT/INR INR 4. Class III obesity with BMI of 44.4 ? Complicating care weight loss advised 5. GERD ? On PPI 6. Diabetes mellitus type II -patient's oral hypoglycemics held. Placed on long acting insulin, Accu-Cheks a.c. and at bedtime and covered with sliding scale insulin 7. Hypertension - Blood pressure controlled, home medications continued with dose adjustment as needed 8. Coronary artery disease with multiple TAMIA in the past ? Stable plan is to continue with guideline directed medical therapy 9. DVT prophylaxis ? Patient is on Coumadin Time spent in the patient's overall evaluation,decision-making process, review of diagnostic data, adjustment of management, discussion with other providers, nursing nursing and ancillary staff involved in patient's care documentation, 50 Minutes Charges/Coding Visit Charges Inpatient E&M: [id number] [facility] Hosp L3
[2023-09-01 09:55] VITALS: BP 98/64; PULSE 89; RESP 18; TEMP 36.6; O2SAT 95
[2023-09-01] MEDS: Allopurinol 100 MG Tablet PO ×2 (10:03→16:55)
[2023-09-01] MEDS: metOLazone 5 MG Tablet PO (10:03)
[2023-09-01] MEDS: Pantoprazole Sodium 40 MG Tablet PO (10:03)
[2023-09-01] MEDS: Isosorbide Mononitrate 30 MG Tablet PO (10:03)
[2023-09-01] MEDS: Multivitamins,Therapeutic Tablet 1 TABLET PO (10:03)
[2023-09-01] MEDS: Gabapentin 100 MG Capsule PO ×3 (10:03→16:55)
[2023-09-01] MEDS: Amiodarone 200 MG Tablet PO (10:03)
[2023-09-01] MEDS: Potassium Chloride Oral Tablet 20 MEQ PO ×2 (10:03→16:55)
[2023-09-01 10:27] VITALS: BP 98/64; PULSE 89
[2023-09-01 11:49] LABS: Bedside Glucose 176 mg/dL (74-106)
[2023-09-01] MEDS: Insulin Lispro 100 UNIT/ML INSULN.PEN SC ×2 (12:41→21:27)
--- NOTE | 2023-09-01 14:46 | CASEMGMT ---
Discharge Planning HH resumption referral sent to [facility] via [facility]. Mable Robertson, Discharge Planning Asst
[2023-09-01 15:55] VITALS: BP 122/51; PULSE 97; RESP 18; TEMP 36.6; O2SAT 95
[2023-09-01 17:19] LABS: Bedside Glucose 142 mg/dL (74-106)
[2023-09-01 21:28] VITALS: PULSE 82
[2023-09-01] MEDS: Atorvastatin Calcium 80 MG Tablet PO (21:28)
[2023-09-01] MEDS: Metoprolol Tartrate 100 MG Tablet PO (21:28)
[2023-09-01 21:49] LABS: Bedside Glucose 226 mg/dL (74-106)
[2023-09-01 21:55] VITALS: BP 112/64; PULSE 86; RESP 16; TEMP 36.8; O2SAT 92
[2023-09-02 03:00] VITALS: BP 99/70; PULSE 88; RESP 16; TEMP 36.5; O2SAT 94
[2023-09-02] MEDS: Furosemide 500 MG in Empty Viaflex 50 mL 1 EACH CONT INF (05:07)
[2023-09-02] MEDS: Miconazole Nitrate 43 GM Bottle 1 APPLIC TOPICAL ×3 (05:08→21:07)
[2023-09-02 05:30] LABS: Bedside Glucose 138 mg/dL (74-106)
[2023-09-02 07:03] LABS: Absolute Neutrophil Count 4.5 X10^3/uL (2.0-7.7); Basophil# 0.04 X10^3/uL; Basophil% 0.6 % (0-1); Eosinophil# 0.23 X10^3/uL; Eosinophils% 3.7 % (0-5); Hematocrit 36.7 % (40-54); Hemoglobin 11.1 g/dL (13.0-16.5); Lymphocyte % 12.9 % (19-41); Mean Corp Hgb Conc 30.2 g/dL (32-36); Mean Corpuscular Volume 92.4 fL (80-94); Mean Platelet Vol. 10.5 fl (6.2-12.0); Monocyte# 0.62 X10^3/uL; NRBC Flagged by Analyzer 0 % (0-5); Neutrophil # 4.49 X10^3/uL (2.7-7.7); Neutrophil % 72.3 % (47-70); Platelet Count 160 K/mm3 (150-450); RBC Distribution Width CV 17.7 % (11.6-14.6); RBC Distribution Width SD 59.2 fl (35.1-43.9); Red Blood Count 3.97 M/mm3 (4.6-6.2); White Blood Count 6.2 K/mm3 (4.4-11.0)
[2023-09-02 07:30] LABS: Anion Gap 10 (5-15); BUN 59 mg/dL (7-18); BUN/Creat Ratio 26.8 RATIO (10-20); Calcium,Total 8.7 mg/dL (8.5-10.1); Chloride 97 mmol/L (98-107); EST Glomerular Filtration Rate 31 mL/min (>60); Est Glom Filt Rate - Afr Amer 38 mL/min (>60); Estimated Creatinine Clearance 30.42 ml/min; Glucose 125 mg/dL (74-106); Potassium 2.8 mmol/L (3.5-5.1); Sodium Level 140 mmol/L (136-145)
[2023-09-02 08:19] LABS: International Normalized Ratio 2.6
--- NOTE | 2023-09-02 08:35 | PN.HOSP_ITS ---
Reason for Visit Reason for Visit: Diagnoses Ischemic cardiomyopathy (09/01/23) Longstanding persistent atrial fibrillation (09/01/23) Chronic kidney disease, unspecified (09/01/23) Other specified disorders of the male genital organs (09/01/23) Difficulty in walking, not elsewhere classified (09/01/23) Generalized edema (09/01/23) Subjective Subjective Patient continues to diurese well on Lasix drip. Diagnostic data reviewed single potassium of 2.8 additional replacement given Objective Data Objective Data Vital Signs: Vital Signs Temp Pulse Resp BP Pulse Ox O2 Del Method 97.7 F L 88 16 99/70 94 Room Air 09/02/23 03:00 09/02/23 03:00 09/02/23 03:00 09/02/23 03:00 09/02/23 03:00 09/02/23 08:14 Oxygen Delivery Method Room Air Weight: 140.3 kg Body Mass Index (BMI) 44.4 Intake & Output: Intake and Output for Last 24 Hours 08/31/23 09/01/23 09/02/23 23:59 23:59 23:59 Intake Total 540 / 650 867.67 / 1107.67 283.63 / 283.63 Output Total 1400 / 2200 3800 / 5300 2600 / 2600 Balance -860 / -1550 -2932.33 / -4192.33 -2316.37 / -2316.37 Lab / Micro Data 09/02/23 06:24 09/02/23 06:24 Labs: Laboratory Results - last 24 hr 09/01/23 11:23: POC Glucose 176 H 09/01/23 16:46: POC Glucose 142 H 09/01/23 21:25: POC Glucose 226 H 09/02/23 05:09: POC Glucose 138 H 09/02/23 06:24: WBC 6.2, RBC 3.97 L, Hgb 11.1 L, Hct 36.7 L, MCV 92.4, MCH 28.0, MCHC 30.2 L, RDW Std Deviation 59.2 H, RDW Coeff of Raphael 17.7 H, Plt Count 160, MPV 10.5, Immature Gran % (Auto) 0.500, Neut % (Auto) 72.3 H, Lymph % (Auto) 12.9 L, [place] % (Auto) 10.0, Eos % (Auto) 3.7, Baso % (Auto) 0.6, Absolute Neuts (auto) 4.5, Absolute Lymphs (auto) 0.80 L, Nucleated RBC % 0, PT 28.0 H, INR 2.6, Sodium 140, Potassium 2.8 L, Chloride 97 L, Carbon Dioxide 33.0 H, Anion Gap 10, BUN 59 H, Creatinine 2.20 H, Estim Creat Clear Calc 30.42, Est GFR (MDRD) Af Amer 38 L, Est GFR (MDRD) Non-Af 31 L, BUN/Creatinine Ratio 26.8 H, Glucose 125 H, Calcium 8.7 Rhythm Strip Rhythm Strip: A-fib Rate: 75 Ectopy: None Physical Exam Narrative GENERAL: cooperative HEENT: Atraumatic; normocephalic EYES; Anicteric, Normal Conjunctiva NECK; supple, normal thyroid, RESPIRATORY: Diminished to auscultation CARDIOVASCULAR: Regular S1 S2, GI: soft, normoactive bowel sounds, abdominal wall edema all the way up to his breast : No Renal angle tenderness; EXTREMITIES: Edema involving both lower extremities circumferentially up to the groin MUSCULOSKELETAL: no muscle wasting NEURO: Awake; no lateralizing signs. SKIN: No Rash PSYCH; Flat affect Assessment & Plan Assessment/Plan (1) Anasarca: PLAN: Plan Patient is a 73-year-old gentleman with history of congestive heart failure with reduced ejection fraction who presented with increasing swelling and shortness of breath 1. Acute on chronic congestive heart failure with reduced ejection fraction ? Echo from 06/29/2023 demonstrated EF of 40%. Patient admitted to monitored bed. Started on IV diuretics, strict input and output, low-sodium diet, daily weights and supplemental oxygen ? 09/01/2023 given patient extensive anasarca his IV scheduled Lasix 40 every 12 was discontinued patient started on Lasix drip 20 mg per. We will continue with monitoring of daily weights as well as electrolytes ? 09/02/2023;Patient continues to diurese well on Lasix drip. Diagnostic data reviewed single potassium of 2.8 additional replacement given 2. Chronic kidney disease stage IIIb ? Patient kidney at baseline ? 09/01/2023 monitoring of kidney function with daily BMPs ordered 3. Paroxysmal atrial fibrillation ? Patient is on amiodarone for rate control as well as systemic anticoagulation with Coumadin we will monitor with daily PT/INR INR 4. Class III obesity with BMI of 44.4 ? Complicating care weight loss advised 5. GERD ? On PPI 6. Diabetes mellitus type II -patient's oral hypoglycemics held. Placed on long acting insulin, Accu-Cheks a.c. and at bedtime and covered with sliding scale insulin 7. Hypertension - Blood pressure controlled, home medications continued with dose adjustment as needed 8. Coronary artery disease with multiple TAMIA in the past ? Stable plan is to continue with guideline directed medical therapy 9. DVT prophylaxis ? Patient is on Coumadin 10. Hypokalemia -Corrected per protocol Time spent in the patient's overall evaluation,decision-making process, review of diagnostic data, adjustment of management, discussion with other providers, nursing nursing and ancillary staff involved in patient's care documentation, 35 Minutes Charges/Coding Visit Charges Inpatient E&M: 22795 Subs Hosp L2
[2023-09-02 09:00] VITALS: BP 98/65; PULSE 85; RESP 18; TEMP 36.5; O2SAT 96
[2023-09-02] MEDS: Amiodarone 200 MG Tablet PO (09:06)
[2023-09-02] MEDS: Multivitamins,Therapeutic Tablet 1 TABLET PO (09:06)
[2023-09-02] MEDS: metOLazone 5 MG Tablet PO (09:06)
[2023-09-02] MEDS: Gabapentin 100 MG Capsule PO ×3 (09:06→16:44)
[2023-09-02] MEDS: Pantoprazole Sodium 40 MG Tablet PO (09:06)
[2023-09-02] MEDS: Allopurinol 100 MG Tablet PO ×2 (09:06→16:43)
[2023-09-02] MEDS: Spironolactone 25 MG Tablet PO ×2 (09:06→21:10)
[2023-09-02] MEDS: 0.9% Saline Lock 10 ML Syringe IV ×2 (09:31→09:46)
[2023-09-02] MEDS: Potassium Chloride 10mEq/100mL 10 MEQ/100 ML IV.SOLN. 100 MEQ IV BOLUS ×4 (09:31→13:12)
[2023-09-02] MEDS: Insulin Lispro 100 UNIT/ML INSULN.PEN SC ×3 (10:57→21:09)
[2023-09-02 11:19] LABS: Bedside Glucose 174 mg/dL (74-106)
[2023-09-02 12:03] VITALS: BMI 43.5
[2023-09-02 15:00] VITALS: BP 105/77; PULSE 94; RESP 18; TEMP 36.7; O2SAT 94
[2023-09-02] MEDS: Potassium Chloride Oral Tablet 20 MEQ PO (16:44)
[2023-09-02 17:04] LABS: Bedside Glucose 164 mg/dL (74-106)
[2023-09-02 21:07] VITALS: BP 115/73; PULSE 98
[2023-09-02] MEDS: Metoprolol Tartrate 100 MG Tablet PO (21:07)
[2023-09-02] MEDS: Atorvastatin Calcium 80 MG Tablet PO (21:08)
[2023-09-02 21:17] VITALS: BP 115/73; PULSE 92; RESP 16; TEMP 36.8; O2SAT 94
[2023-09-02 21:31] LABS: Bedside Glucose 175 mg/dL (74-106)
[2023-09-03 03:00] VITALS: BP 129/72; PULSE 83; RESP 16; TEMP 36.6; O2SAT 94
[2023-09-03] MEDS: Furosemide 500 MG in Empty Viaflex 50 mL 1 EACH CONT INF (04:42)
[2023-09-03] MEDS: Miconazole Nitrate 43 GM Bottle 1 APPLIC TOPICAL ×3 (04:42→20:59)
[2023-09-03 05:46] LABS: Bedside Glucose 147 mg/dL (74-106)
[2023-09-03 06:00] VITALS: BMI 44.3
[2023-09-03 07:21] LABS: Absolute Lymphocyte Count 0.91 X10^3/uL (0.83-4.51); Basophil# 0.04 X10^3/uL; Basophil% 0.6 % (0-1); Eosinophil# 0.25 X10^3/uL; Eosinophils% 3.6 % (0-5); Hematocrit 37.2 % (40-54); Hemoglobin 11.4 g/dL (13.0-16.5); Lymphocyte # 0.91 X10^3/ul (0.83-4.51); Lymphocyte % 12.9 % (19-41); Mean Corp Hgb Conc 30.6 g/dL (32-36); Mean Corpuscular Hgb 28.4 pg (27.0-32.0); Mean Corpuscular Volume 92.8 fL (80-94); Mean Platelet Vol. 10.9 fl (6.2-12.0); Monocyte% 11.4 % (0-10); NRBC Flagged by Analyzer 0 % (0-5); Neutrophil # 5.02 X10^3/uL (2.7-7.7); Neutrophil % 71.4 % (47-70); Platelet Count 164 K/mm3 (150-450); RBC Distribution Width CV 17.7 % (11.6-14.6); RBC Distribution Width SD 59.5 fl (35.1-43.9); Red Blood Count 4.01 M/mm3 (4.6-6.2)
--- NOTE | 2023-09-03 07:35 | PN.HOSP_ITS ---
Reason for Visit Reason for Visit: Diagnoses Ischemic cardiomyopathy (09/01/23) Longstanding persistent atrial fibrillation (09/01/23) Chronic kidney disease, unspecified (09/01/23) Other specified disorders of the male genital organs (09/01/23) Difficulty in walking, not elsewhere classified (09/01/23) Generalized edema (09/01/23) Subjective Subjective Patient seen continues to diurese aggressively. Potassium down to 3.1, creatinine down to 2.08. Patient complains of recurrent right hip pain requested for x-ray of the hip. Objective Data Objective Data Vital Signs: Vital Signs Temp Pulse Resp BP Pulse Ox O2 Del Method 98 F 83 16 129/72 H 94 Room Air 09/03/23 03:00 09/03/23 03:00 09/03/23 03:00 09/03/23 03:00 09/03/23 03:00 09/03/23 03:00 Oxygen Delivery Method Room Air Weight: 140.1 kg Body Mass Index (BMI) 44.3 Intake & Output: Intake and Output for Last 24 Hours 09/01/23 09/02/23 09/03/23 23:59 23:59 23:59 Intake Total 867.67 / 1107.67 1623.63 / 1863.63 287.17 / 287.17 Output Total 3800 / 5300 5650 / 6650 3100 / 3100 Balance -2932.33 / -4192.33 -4026.37 / -4786.37 -2812.83 / -2812.83 Lab / Micro Data 09/03/23 06:17 09/03/23 06:17 Labs: Laboratory Results - last 24 hr 09/02/23 06:24: PT 28.0 H, INR 2.6 09/02/23 10:56: POC Glucose 174 H 09/02/23 16:43: POC Glucose 164 H 09/02/23 21:04: POC Glucose 175 H 09/03/23 05:23: POC Glucose 147 H 09/03/23 06:17: WBC 7.0, RBC 4.01 L, Hgb 11.4 L, Hct 37.2 L, MCV 92.8, MCH 28.4, MCHC 30.6 L, RDW Std Deviation 59.5 H, RDW Coeff of Raphael 17.7 H, Plt Count 164, MPV 10.9, Immature Gran % (Auto) 0.100, Neut % (Auto) 71.4 H, Lymph % (Auto) 12.9 L, [place] % (Auto) 11.4 H, Eos % (Auto) 3.6, Baso % (Auto) 0.6, Absolute Neuts (auto) 5.0, Absolute Lymphs (auto) 0.91, Nucleated RBC % 0 Rhythm Strip Rhythm Strip: A-fib Rate: 75 Ectopy: None Physical Exam Narrative GENERAL: cooperative HEENT: Atraumatic; normocephalic EYES; Anicteric, Normal Conjunctiva NECK; supple, normal thyroid, RESPIRATORY: Diminished to auscultation CARDIOVASCULAR: Regular S1 S2, GI: soft, normoactive bowel sounds, abdominal wall edema all the way up to his breast : No Renal angle tenderness; EXTREMITIES: Edema involving both lower extremities circumferentially up to the groin MUSCULOSKELETAL: no muscle wasting NEURO: Awake; no lateralizing signs. SKIN: No Rash PSYCH; Flat affect Assessment & Plan Assessment/Plan (1) Anasarca: PLAN: Plan Patient is a 73-year-old gentleman with history of congestive heart failure with reduced ejection fraction who presented with increasing swelling and shortness of breath 1. Acute on chronic congestive heart failure with reduced ejection fraction ? Echo from 06/29/2023 demonstrated EF of 40%. Patient admitted to monitored bed. Started on IV diuretics, strict input and output, low-sodium diet, daily weights and supplemental oxygen ? 09/01/2023 given patient extensive anasarca his IV scheduled Lasix 40 every 12 was discontinued patient started on Lasix drip 20 mg per. We will continue with monitoring of daily weights as well as electrolytes ? 09/02/2023;Patient continues to diurese well on Lasix drip. Diagnostic data reviewed single potassium of 2.8 additional replacement given ? 09/03/2023 patient continues to diurese aggressively 2. Chronic kidney disease stage IIIb ? Patient kidney at baseline ? 09/01/2023 monitoring of kidney function with daily BMPs ordered 3. Paroxysmal atrial fibrillation ? Patient is on amiodarone for rate control as well as systemic anticoagulation with Coumadin we will monitor with daily PT/INR INR 4. Class III obesity with BMI of 44.4 ? Complicating care weight loss advised 5. GERD ? On PPI 6. Diabetes mellitus type II -patient's oral hypoglycemics held. Placed on long acting insulin, Accu-Cheks a.c. and at bedtime and covered with sliding scale insulin 7. Hypertension - Blood pressure controlled, home medications continued with dose adjustment as needed 8. Coronary artery disease with multiple TAMIA in the past ? Stable plan is to continue with guideline directed medical therapy 9. DVT prophylaxis ? Patient is on Coumadin 10. Hypokalemia -Corrected per protocol Time spent in the patient's overall evaluation,decision-making process, review of diagnostic data, adjustment of management, discussion with other providers, nursing nursing and ancillary staff involved in patient's care documentation, 35 Minutes Charges/Coding Visit Charges Inpatient E&M: 76437 Subs Hosp L2
[2023-09-03 07:41] LABS: International Normalized Ratio 2.1; Prothrombin Time (Protime)PT. 23.5 SECONDS (11.7-14.9)
[2023-09-03 07:51] LABS: Anion Gap 9 (5-15); BUN 58 mg/dL (7-18); BUN/Creat Ratio 27.9 RATIO (10-20); Calcium,Total 8.8 mg/dL (8.5-10.1); Chloride 95 mmol/L (98-107); Creatinine, Serum 2.08 mg/dL (0.70-1.30); EST Glomerular Filtration Rate 33 mL/min (>60); Est Glom Filt Rate - Afr Amer 40 mL/min (>60); Estimated Creatinine Clearance 32.17 ml/min; Glucose 131 mg/dL (74-106); Potassium 3.1 mmol/L (3.5-5.1); Sodium Level 139 mmol/L (136-145)
[2023-09-03 09:37] VITALS: BP 116/67; PULSE 70; RESP 16; TEMP 36.6; O2SAT 93
[2023-09-03] MEDS: Pantoprazole Sodium 40 MG Tablet PO (09:39)
[2023-09-03] MEDS: Multivitamins,Therapeutic Tablet 1 TABLET PO (09:39)
[2023-09-03] MEDS: Amiodarone 200 MG Tablet PO (09:39)
[2023-09-03] MEDS: Allopurinol 100 MG Tablet PO ×2 (09:39→16:41)
[2023-09-03] MEDS: Isosorbide Mononitrate 30 MG Tablet PO (09:39)
[2023-09-03] MEDS: metOLazone 5 MG Tablet PO (09:39)
[2023-09-03] MEDS: Spironolactone 25 MG Tablet PO ×2 (09:39→20:58)
[2023-09-03 09:40] VITALS: BP 116/67; PULSE 83
[2023-09-03] MEDS: Potassium Chloride Oral Tablet 20 MEQ PO ×2 (09:40→16:41)
[2023-09-03] MEDS: Metoprolol Tartrate 100 MG Tablet PO ×2 (09:40→20:57)
[2023-09-03] MEDS: Gabapentin 100 MG Capsule PO ×3 (09:44→16:40)
--- NOTE | 2023-09-03 10:45 | RAD_ITS ---
STUDY: X-RAY - PELVIS AND RIGHT HIP REASON FOR EXAM: Male, 73 years old. R Hip pain TECHNIQUE: 2 views of the pelvis and hip. COMPARISON: None. FINDINGS: There is a non-specific bowel gas pattern. Normal visualized soft tissue structures. Widening of the femoral neck suggestive of femoral acetabular impingement. Heterogeneous appearance of the femoral head. Avascular necrosis should be ruled out. There is osteoarthritic spur formation of the acetabular rim. is severe articular joint space narrowing of the hip. RAD/Hip Min 2 Views (Portable) IMPRESSION: Marked degree of joint space narrowing with heterogeneous appearance of the femoral head suggestive of possible avascular necrosis. 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 Electronically Signed: Dima White MD at 12:46 EDT ,
[2023-09-03] MEDS: Insulin Lispro 100 UNIT/ML INSULN.PEN SC ×2 (11:17→21:04)
[2023-09-03] MEDS: Potassium Chloride 10mEq/100mL 10 MEQ/100 ML IV.SOLN. 100 MEQ IV BOLUS ×4 (11:18→14:25)
[2023-09-03 11:37] LABS: Bedside Glucose 246 mg/dL (74-106)
[2023-09-03 14:28] VITALS: BP 99/59; PULSE 77; RESP 16; TEMP 36.6; O2SAT 93
[2023-09-03 17:01] LABS: Bedside Glucose 142 mg/dL (74-106)
--- NOTE | 2023-09-03 17:10 | CASEMGMT ---
BAILEE CALIX chart review: Patient was last admitted 08/16-08/19 for cellulitis and adult failure to thrive. Patient had wanted to go to SNF but was denied and discharged home with son and [facility]. Patient returned 09/01/23 for anasarca, scrotal swelling, and pain. This is the patient's 6th admission since 06/28/23. Patient was started on Lasix gtts. BAILEE CALIX in to discuss readmission and discharge planning. Patient admits to still using salt when cooking and not follow fluid restrictions from previous admissions. Patient states he attended follow-up appt with Dr. Figueroa PCP. Patient states he did not follow with the wound center on 08/26. BAILEE CALIX educated patient on following fluid restriction, low sodium diet, and weigh self daily to manage CHF. Patient voices he will do better. Patient states that [facility] has been coming to the house. Patient wishes to discharge home with resumption of HHC. CM will continue to follow this patient and plan for a safe discharge.
[2023-09-03 20:28] VITALS: BP 105/70; PULSE 66; RESP 16; TEMP 36.9; O2SAT 93
[2023-09-03 20:57] VITALS: BP 105/70; PULSE 66
[2023-09-03] MEDS: Atorvastatin Calcium 80 MG Tablet PO (20:59)
[2023-09-03 21:38] LABS: Bedside Glucose 231 mg/dL (74-106)
[2023-09-03 21:41] VITALS: BMI 43.8
[2023-09-04 02:28] VITALS: BP 103/71; PULSE 66; RESP 18; TEMP 36.4; O2SAT 96
[2023-09-04] MEDS: Furosemide 500 MG in Empty Viaflex 50 mL 1 EACH CONT INF (05:25)
[2023-09-04] MEDS: Miconazole Nitrate 43 GM Bottle 1 APPLIC TOPICAL (06:49)
[2023-09-04 07:10] LABS: Bedside Glucose 149 mg/dL (74-106)
--- NOTE | 2023-09-04 07:17 | PCM.PN.HOSP ---
Reason for Visit Reason for Visit: Diagnoses Ischemic cardiomyopathy (09/01/23) Longstanding persistent atrial fibrillation (09/01/23) Chronic kidney disease, unspecified (09/01/23) Other specified disorders of the male genital organs (09/01/23) Difficulty in walking, not elsewhere classified (09/01/23) Generalized edema (09/01/23) Subjective Subjective Patient seen participating in physical therapy clinical condition continues to improve. Patient has lost a total of 10 kg since admission. Objective Data Objective Data Vital Signs: Vital Signs Temp Pulse Resp BP Pulse Ox O2 Del Method 97.5 F L 66 18 103/71 96 Room Air 09/04/23 02:28 09/04/23 02:28 09/04/23 02:28 09/04/23 02:28 09/04/23 02:28 09/04/23 03:22 Oxygen Delivery Method Room Air Weight: 138.6 kg Body Mass Index (BMI) 43.8 Intake & Output: Intake and Output for Last 24 Hours 09/02/23 09/03/23 09/04/23 23:59 23:59 23:59 Intake Total 1623.63 / 1863.63 1355.50 / 1355.50 269.43 / 269.43 Output Total 5650 / 6650 4700 / 4700 600 / 600 Balance -4026.37 / -4786.37 -3344.50 / -3344.50 -330.57 / -330.57 Lab / Micro Data 09/04/23 08:28 09/04/23 08:28 Labs: Laboratory Results - last 24 hr 09/03/23 06:17: WBC 7.0, RBC 4.01 L, Hgb 11.4 L, Hct 37.2 L, MCV 92.8, MCH 28.4, MCHC 30.6 L, RDW Std Deviation 59.5 H, RDW Coeff of Raphael 17.7 H, Plt Count 164, MPV 10.9, Immature Gran % (Auto) 0.100, Neut % (Auto) 71.4 H, Lymph % (Auto) 12.9 L, [place] % (Auto) 11.4 H, Eos % (Auto) 3.6, Baso % (Auto) 0.6, Absolute Neuts (auto) 5.0, Absolute Lymphs (auto) 0.91, Nucleated RBC % 0, PT 23.5 H, INR 2.1, Sodium 139, Potassium 3.1 L, Chloride 95 L, Carbon Dioxide 35.0 H, Anion Gap 9, BUN 58 H, Creatinine 2.08 H, Estim Creat Clear Calc 32.17, Est GFR (MDRD) Af Amer 40 L, Est GFR (MDRD) Non-Af 33 L, BUN/Creatinine Ratio 27.9 H, Glucose 131 H, Calcium 8.8 09/03/23 11:16: POC Glucose 246 H 09/03/23 16:36: POC Glucose 142 H 09/03/23 21:02: POC Glucose 231 H 09/04/23 06:48: POC Glucose 149 H Radiography Diagnostic Testing: Radiology Impression Hip X-Ray 09/03/23 10:45 IMPRESSION: Marked degree of joint space narrowing with heterogeneous appearance of the femoral head suggestive of possible avascular necrosis. 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 Electronically Signed: Dima White MD at 12:46 EDT , Rhythm Strip Rhythm Strip: A-fib Rate: 75 Ectopy: None Physical Exam Narrative GENERAL: cooperative HEENT: Atraumatic; normocephalic EYES; Anicteric, Normal Conjunctiva NECK; supple, normal thyroid, RESPIRATORY: Diminished to auscultation CARDIOVASCULAR: Regular S1 S2, GI: soft, normoactive bowel sounds, abdominal wall edema all the way up to his breast : No Renal angle tenderness; EXTREMITIES: Edema involving both lower extremities circumferentially up to the groin MUSCULOSKELETAL: no muscle wasting NEURO: Awake; no lateralizing signs. SKIN: No Rash PSYCH; Flat affect Assessment & Plan Assessment/Plan (1) Anasarca: PLAN: Plan Patient is a 73-year-old gentleman with history of congestive heart failure with reduced ejection fraction who presented with increasing swelling and shortness of breath 1. Acute on chronic congestive heart failure with reduced ejection fraction ? Echo from 06/29/2023 demonstrated EF of 40%. Patient admitted to monitored bed. Started on IV diuretics, strict input and output, low-sodium diet, daily weights and supplemental oxygen ? 09/01/2023 given patient extensive anasarca his IV scheduled Lasix 40 every 12 was discontinued patient started on Lasix drip 20 mg per. We will continue with monitoring of daily weights as well as electrolytes ? 09/02/2023;Patient continues to diurese well on Lasix drip. Diagnostic data reviewed single potassium of 2.8 additional replacement given ? 09/03/2023 patient continues to diurese aggressively ? 09/04/2023;Patient seen participating in physical therapy clinical condition continues to improve. Patient has lost a total of 10 kg since admission. 2. Chronic kidney disease stage IIIb ? Patient kidney at baseline ? 09/01/2023 monitoring of kidney function with daily BMPs ordered 3. Paroxysmal atrial fibrillation ? Patient is on amiodarone for rate control as well as systemic anticoagulation with Coumadin we will monitor with daily PT/INR INR 4. Class III obesity with BMI of 44.4 ? Complicating care weight loss advised 5. GERD ? On PPI 6. Diabetes mellitus type II -patient's oral hypoglycemics held. Placed on long acting insulin, Accu-Cheks a.c. and at bedtime and covered with sliding scale insulin 7. Hypertension - Blood pressure controlled, home medications continued with dose adjustment as needed 8. Coronary artery disease with multiple TAMIA in the past ? Stable plan is to continue with guideline directed medical therapy 9. DVT prophylaxis ? Patient is on Coumadin 10. Hypokalemia -Corrected per protocol 11. Physical deconditioning - Requested for PT OT eval and social service liaison to assist with discharge planning Time spent in the patient's overall evaluation,decision-making process, review of diagnostic data, adjustment of management, discussion with other providers, nursing nursing and ancillary staff involved in patient's care documentation, 35 Minutes Charges/Coding Visit Charges Inpatient E&M: 36060 Subs Hosp L2
[2023-09-04 08:28] VITALS: BP 104/71; PULSE 85; RESP 16; TEMP 36.2; O2SAT 95
[2023-09-04 09:16] VITALS: PULSE 85
[2023-09-04] MEDS: Metoprolol Tartrate 100 MG Tablet PO ×2 (09:16→21:38)
[2023-09-04] MEDS: Pantoprazole Sodium 40 MG Tablet PO (09:16)
[2023-09-04] MEDS: Spironolactone 25 MG Tablet PO ×2 (09:17→21:37)
[2023-09-04] MEDS: Allopurinol 100 MG Tablet PO ×2 (09:17→17:13)
[2023-09-04] MEDS: Isosorbide Mononitrate 30 MG Tablet PO (09:17)
[2023-09-04] MEDS: Potassium Chloride Oral Tablet 20 MEQ PO ×2 (09:18→17:13)
[2023-09-04] MEDS: Amiodarone 200 MG Tablet PO (09:18)
[2023-09-04] MEDS: Multivitamins,Therapeutic Tablet 1 TABLET PO (09:19)
[2023-09-04] MEDS: metOLazone 5 MG Tablet PO (09:20)
[2023-09-04] MEDS: Gabapentin 100 MG Capsule PO ×3 (09:24→17:18)
[2023-09-04 09:25] LABS: Absolute Lymphocyte Count 1.09 X10^3/uL (0.83-4.51); Absolute Neutrophil Count 5.6 X10^3/uL (2.0-7.7); Basophil# 0.06 X10^3/uL; Basophil% 0.8 % (0-1); Eosinophil# 0.31 X10^3/uL; Hematocrit 38.8 % (40-54); Lymphocyte # 1.09 X10^3/ul (0.83-4.51); Lymphocyte % 13.9 % (19-41); Mean Corp Hgb Conc 30.9 g/dL (32-36); Mean Corpuscular Hgb 28.6 pg (27.0-32.0); Mean Corpuscular Volume 92.6 fL (80-94); Mean Platelet Vol. 11.2 fl (6.2-12.0); Monocyte# 0.73 X10^3/uL; Monocyte% 9.3 % (0-10); NRBC Flagged by Analyzer 0 % (0-5); Neutrophil # 5.62 X10^3/uL (2.7-7.7); Neutrophil % 71.6 % (47-70); Platelet Count 172 K/mm3 (150-450); RBC Distribution Width CV 17.9 % (11.6-14.6); RBC Distribution Width SD 59.4 fl (35.1-43.9); Red Blood Count 4.19 M/mm3 (4.6-6.2); White Blood Count 7.8 K/mm3 (4.4-11.0)
[2023-09-04 09:36] LABS: Anion Gap 10 (5-15); BUN 58 mg/dL (7-18); BUN/Creat Ratio 26.5 RATIO (10-20); Calcium,Total 9.2 mg/dL (8.5-10.1); Chloride 94 mmol/L (98-107); Creatinine, Serum 2.19 mg/dL (0.70-1.30); EST Glomerular Filtration Rate 31 mL/min (>60); Est Glom Filt Rate - Afr Amer 38 mL/min (>60); Estimated Creatinine Clearance 30.56 ml/min; Glucose 132 mg/dL (74-106); Phosphorus 3.2 mg/dL (2.5-4.9); Potassium 3.3 mmol/L (3.5-5.1); Sodium Level 141 mmol/L (136-145)
[2023-09-04 10:21] LABS: International Normalized Ratio 2.1; Prothrombin Time (Protime)PT. 23.3 SECONDS (11.7-14.9)
[2023-09-04] MEDS: Insulin Lispro 100 UNIT/ML INSULN.PEN SC ×3 (11:53→21:46)
[2023-09-04 12:13] LABS: Bedside Glucose 239 mg/dL (74-106)
[2023-09-04 14:20] VITALS: BP 102/57; PULSE 82; RESP 16; TEMP 36.6; O2SAT 92
[2023-09-04 17:32] LABS: Bedside Glucose 166 mg/dL (74-106)
[2023-09-04 20:20] VITALS: BP 113/63; PULSE 90; RESP 18; TEMP 36.5; O2SAT 95
[2023-09-04 21:38] VITALS: BP 113/63; PULSE 90
[2023-09-04] MEDS: Atorvastatin Calcium 80 MG Tablet PO (21:38)
[2023-09-04 22:09] LABS: Bedside Glucose 241 mg/dL (74-106)
[2023-09-05 02:20] VITALS: BP 96/70; PULSE 103; RESP 18; TEMP 36.6; O2SAT 94
[2023-09-05] MEDS: Furosemide 500 MG in Empty Viaflex 50 mL 1 EACH CONT INF (02:38)
[2023-09-05 05:30] LABS: Absolute Lymphocyte Count 1.04 X10^3/uL (0.83-4.51); Absolute Neutrophil Count 5.3 X10^3/uL (2.0-7.7); Basophil# 0.05 X10^3/uL; Basophil% 0.7 % (0-1); Eosinophil# 0.25 X10^3/uL; Eosinophils% 3.4 % (0-5); Hematocrit 38.4 % (40-54); Hemoglobin 11.5 g/dL (13.0-16.5); Lymphocyte # 1.04 X10^3/ul (0.83-4.51); Lymphocyte % 14.2 % (19-41); Mean Corp Hgb Conc 29.9 g/dL (32-36); Mean Corpuscular Hgb 28.3 pg (27.0-32.0); Mean Corpuscular Volume 94.3 fL (80-94); Mean Platelet Vol. 10.5 fl (6.2-12.0); Monocyte# 0.66 X10^3/uL; NRBC Flagged by Analyzer 0 % (0-5); Neutrophil % 72.4 % (47-70); Platelet Count 170 K/mm3 (150-450); RBC Distribution Width CV 18.2 % (11.6-14.6); RBC Distribution Width SD 61.6 fl (35.1-43.9); Red Blood Count 4.07 M/mm3 (4.6-6.2); White Blood Count 7.3 K/mm3 (4.4-11.0)
[2023-09-05 05:50] LABS: International Normalized Ratio 2.2
[2023-09-05 06:00] VITALS: BMI 41.5
[2023-09-05 06:07] LABS: Anion Gap 8 (5-15); BUN 62 mg/dL (7-18); BUN/Creat Ratio 25.8 RATIO (10-20); Calcium,Total 8.8 mg/dL (8.5-10.1); Chloride 92 mmol/L (98-107); EST Glomerular Filtration Rate 28 mL/min (>60); Est Glom Filt Rate - Afr Amer 34 mL/min (>60); Estimated Creatinine Clearance 27.88 ml/min; Glucose 186 mg/dL (74-106); Potassium 3.2 mmol/L (3.5-5.1); Sodium Level 141 mmol/L (136-145)
[2023-09-05] MEDS: Insulin Lispro 100 UNIT/ML INSULN.PEN SC ×3 (06:33→21:55)
[2023-09-05 06:58] LABS: Bedside Glucose 199 mg/dL (74-106)
--- NOTE | 2023-09-05 08:54 | PCM.PN.HOSP ---
Reason for Visit Reason for Visit: Diagnoses Ischemic cardiomyopathy (09/01/23) Longstanding persistent atrial fibrillation (09/01/23) Chronic kidney disease, unspecified (09/01/23) Other specified disorders of the male genital organs (09/01/23) Difficulty in walking, not elsewhere classified (09/01/23) Generalized edema (09/01/23) Subjective Subjective Patient seen continues to improve. Patient's weight is down to 131.5 kg from 147 kg on admission. Lasix drip discontinued patient started on scheduled Lasix 80 mg Q8. Diagnostic data reviewed significant for potassium of 3.2 additional replacement given. She also complains of being constipated started on stool softeners Objective Data Objective Data Vital Signs: Vital Signs Temp Pulse Resp BP Pulse Ox O2 Del Method 97.8 F 103 H 18 96/70 94 Room Air 09/05/23 02:20 09/05/23 02:20 09/05/23 02:20 09/05/23 02:20 09/05/23 02:20 09/05/23 04:01 Oxygen Delivery Method Room Air Weight: 131.5 kg Body Mass Index (BMI) 41.5 Intake & Output: Intake and Output for Last 24 Hours 09/03/23 09/04/23 09/05/23 23:59 23:59 22:59 Intake Total 1355.50 / 1355.50 1129.43 / 1129.43 324.43 / 324.43 Output Total 4700 / 4700 2350 / 2350 1250 / 1250 Balance -3344.50 / -3344.50 -1220.57 / -1220.57 -925.57 / -925.57 Lab / Micro Data 09/05/23 05:10 09/05/23 05:10 Labs: Laboratory Results - last 24 hr 09/04/23 08:28: PT 23.3 H, INR 2.1 09/04/23 11:51: POC Glucose 239 H 09/04/23 17:09: POC Glucose 166 H 09/04/23 21:45: POC Glucose 241 H 09/05/23 05:10: WBC 7.3, RBC 4.07 L, Hgb 11.5 L, Hct 38.4 L, MCV 94.3 H, MCH 28.3, MCHC 29.9 L, RDW Std Deviation 61.6 H, RDW Coeff of Raphael 18.2 H, Plt Count 170, MPV 10.5, Immature Gran % (Auto) 0.300, Neut % (Auto) 72.4 H, Lymph % (Auto) 14.2 L, [place] % (Auto) 9.0, Eos % (Auto) 3.4, Baso % (Auto) 0.7, Absolute Neuts (auto) 5.3, Absolute Lymphs (auto) 1.04, Nucleated RBC % 0, PT 25.0 H, INR 2.2, Sodium 141, Potassium 3.2 L, Chloride 92 L, Carbon Dioxide 41.0 H, Anion Gap 8, BUN 62 H, Creatinine 2.40 H, Estim Creat Clear Calc 27.88, Est GFR (MDRD) Af Amer 34 L, Est GFR (MDRD) Non-Af 28 L, BUN/Creatinine Ratio 25.8 H, Glucose 186 H, Calcium 8.8 09/05/23 07:28: POC Glucose 199 H Rhythm Strip Rhythm Strip: A-fib Rate: 75 Ectopy: None Physical Exam Narrative GENERAL: cooperative HEENT: Atraumatic; normocephalic EYES; Anicteric, Normal Conjunctiva NECK; supple, normal thyroid, RESPIRATORY: Diminished to auscultation CARDIOVASCULAR: Regular S1 S2, GI: soft, normoactive bowel sounds, abdominal wall edema all the way up to his breast : No Renal angle tenderness; EXTREMITIES: Edema involving both lower extremities circumferentially up to the groin MUSCULOSKELETAL: no muscle wasting NEURO: Awake; no lateralizing signs. SKIN: No Rash PSYCH; Flat affect Const alert and oriented x3 General Appearance: cooperative and well developed HEENT normocephalic and head/scalp atraumatic Eyes PERRL Neck no lymphadenopathy Lymph Lymphatic: lymphedema pitting Resp normal air movement and clear to auscultation bilaterally Cardio regular rate, regular rhythm, S1 normal heart sound and S2 normal heart sound GI normal to inspection, nondistended, normoactive bowel sounds GI Narrative: Marked scrotal swelling/edema Extremity General Extremity: edema bilateral lower extremity Details: severe Skin General Skin Exam: dry skin Neuro no focal motor deficits and no sensory deficits noted Psych cooperative and affect normal Assessment & Plan Assessment/Plan (1) Anasarca: PLAN: Plan Patient is a 73-year-old gentleman with history of congestive heart failure with reduced ejection fraction who presented with increasing swelling and shortness of breath 1. Acute on chronic congestive heart failure with reduced ejection fraction ? Echo from 06/29/2023 demonstrated EF of 40%. Patient admitted to monitored bed. Started on IV diuretics, strict input and output, low-sodium diet, daily weights and supplemental oxygen ? 09/01/2023 given patient extensive anasarca his IV scheduled Lasix 40 every 12 was discontinued patient started on Lasix drip 20 mg per. We will continue with monitoring of daily weights as well as electrolytes ? 09/02/2023;Patient continues to diurese well on Lasix drip. Diagnostic data reviewed single potassium of 2.8 additional replacement given ? 09/03/2023 patient continues to diurese aggressively ? 09/04/2023;Patient seen participating in physical therapy clinical condition continues to improve. Patient has lost a total of 10 kg since admission. ? 09/05/2023 weight down to 131.5 from 147 kg on admission 2. Chronic kidney disease stage IIIb ? Patient kidney at baseline ? 09/01/2023 monitoring of kidney function with daily BMPs ordered 3. Paroxysmal atrial fibrillation ? Patient is on amiodarone for rate control as well as systemic anticoagulation with Coumadin we will monitor with daily PT/INR INR 4. Class III obesity with BMI of 44.4 ? Complicating care weight loss advised 5. GERD ? On PPI 6. Diabetes mellitus type II -patient's oral hypoglycemics held. Placed on long acting insulin, Accu-Cheks a.c. and at bedtime and covered with sliding scale insulin 7. Hypertension - Blood pressure controlled, home medications continued with dose adjustment as needed 8. Coronary artery disease with multiple TAMIA in the past ? Stable plan is to continue with guideline directed medical therapy 9. DVT prophylaxis ? Patient is on Coumadin 10. Hypokalemia -Corrected per protocol ? 09/05/2023 potassium down to 3.2 additional replacement given 11. Physical deconditioning - Requested for PT OT eval and secondary social studies teacher to assist with discharge planning 12. Constipation ? Patient started on stool softeners Time spent in the patient's overall evaluation,decision-making process, review of diagnostic data, adjustment of management, discussion with other providers, nursing nursing and ancillary staff involved in patient's care documentation, 35 Minutes Charges/Coding Visit Charges Inpatient E&M: 43693 Subs Hosp L2
[2023-09-05 09:41] VITALS: BP 122/65; PULSE 109; RESP 18; TEMP 36.8; O2SAT 97
[2023-09-05 09:44] VITALS: PULSE 109
[2023-09-05] MEDS: Metoprolol Tartrate 100 MG Tablet PO ×2 (09:44→21:58)
[2023-09-05] MEDS: Allopurinol 100 MG Tablet PO ×2 (09:44→17:07)
[2023-09-05] MEDS: metOLazone 5 MG Tablet PO (09:44)
[2023-09-05] MEDS: Spironolactone 25 MG Tablet PO ×2 (09:44→21:56)
[2023-09-05] MEDS: Amiodarone 200 MG Tablet PO (09:45)
[2023-09-05] MEDS: Senna/Docusate Sodium 1 Tablet PO ×2 (09:45→21:59)
[2023-09-05] MEDS: Potassium Chloride Oral Tablet 20 MEQ PO ×2 (09:45→17:13)
[2023-09-05] MEDS: Multivitamins,Therapeutic Tablet 1 TABLET PO (09:45)
[2023-09-05] MEDS: Potassium Chloride Oral Tablet 20 MEQ 40 MEQ PO (09:45)
[2023-09-05] MEDS: Pantoprazole Sodium 40 MG Tablet PO (09:45)
[2023-09-05] MEDS: Gabapentin 100 MG Capsule PO ×3 (09:45→17:07)
[2023-09-05] MEDS: Isosorbide Mononitrate 30 MG Tablet PO (09:45)
[2023-09-05] MEDS: Magnesium Citrate 300 ML 150 ML PO (10:38)
[2023-09-05 12:22] LABS: Bedside Glucose 157 mg/dL (74-106)
[2023-09-05 15:13] VITALS: BP 102/65; PULSE 79; RESP 20; TEMP 36.4; O2SAT 96
[2023-09-05] MEDS: Furosemide 100 MG/10 ML Vial 80 MG IV ×2 (15:17→21:57)
[2023-09-05] MEDS: Miconazole Nitrate 43 GM Bottle 1 APPLIC TOPICAL ×2 (15:18→21:56)
[2023-09-05 17:42] LABS: Bedside Glucose 145 mg/dL (74-106)
[2023-09-05 21:20] VITALS: BP 109/78; PULSE 57; RESP 16; TEMP 36.8; O2SAT 93
[2023-09-05 21:58] VITALS: PULSE 101
[2023-09-05] MEDS: Atorvastatin Calcium 80 MG Tablet PO (21:58)
[2023-09-05] MEDS: 0.9% Saline Lock 10 ML Syringe IV (21:59)
[2023-09-05 22:41] LABS: Bedside Glucose 271 mg/dL (74-106)
[2023-09-06] MEDS: Bisacodyl 10 MG Suppository RC (02:10)
[2023-09-06 03:20] VITALS: BP 107/74; PULSE 61; RESP 18; TEMP 36.2; O2SAT 93
[2023-09-06] MEDS: Furosemide 100 MG/10 ML Vial 80 MG IV (05:33)
[2023-09-06] MEDS: 0.9% Saline Lock 10 ML Syringe IV (05:33)
[2023-09-06] MEDS: Miconazole Nitrate 43 GM Bottle 1 APPLIC TOPICAL ×3 (05:33→22:08)
[2023-09-06 06:00] VITALS: BMI 41.7
[2023-09-06 06:22] LABS: Absolute Lymphocyte Count 0.82 X10^3/uL (0.83-4.51); Absolute Neutrophil Count 7.1 X10^3/uL (2.0-7.7); Basophil# 0.05 X10^3/uL; Basophil% 0.6 % (0-1); Eosinophil# 0.21 X10^3/uL; Eosinophils% 2.3 % (0-5); Hematocrit 38.8 % (40-54); Hemoglobin 11.6 g/dL (13.0-16.5); Lymphocyte # 0.82 X10^3/ul (0.83-4.51); Lymphocyte % 9.1 % (19-41); Mean Corp Hgb Conc 29.9 g/dL (32-36); Mean Corpuscular Volume 93.7 fL (80-94); Mean Platelet Vol. 10.9 fl (6.2-12.0); Monocyte# 0.83 X10^3/uL; Monocyte% 9.2 % (0-10); NRBC Flagged by Analyzer 0 % (0-5); Neutrophil % 78.4 % (47-70); Platelet Count 171 K/mm3 (150-450); RBC Distribution Width SD 61.4 fl (35.1-43.9); Red Blood Count 4.14 M/mm3 (4.6-6.2); White Blood Count 9.1 K/mm3 (4.4-11.0)
[2023-09-06] MEDS: Insulin Lispro 100 UNIT/ML INSULN.PEN SC ×4 (06:23→23:33)
[2023-09-06 06:42] LABS: International Normalized Ratio 2.7; Prothrombin Time (Protime)PT. 28.8 SECONDS (11.7-14.9)
[2023-09-06 06:50] LABS: Bedside Glucose 185 mg/dL (74-106)
[2023-09-06 07:05] LABS: Anion Gap 9 (5-15); BUN 56 mg/dL (7-18); Calcium,Total 9.1 mg/dL (8.5-10.1); Chloride 91 mmol/L (98-107); Creatinine, Serum 2.44 mg/dL (0.70-1.30); EST Glomerular Filtration Rate 28 mL/min (>60); Est Glom Filt Rate - Afr Amer 34 mL/min (>60); Estimated Creatinine Clearance 27.42 ml/min; Glucose 184 mg/dL (74-106); Potassium 3.5 mmol/L (3.5-5.1); Sodium Level 141 mmol/L (136-145)
[2023-09-06] MEDS: Amiodarone 200 MG Tablet PO (09:10)
[2023-09-06] MEDS: Multivitamins,Therapeutic Tablet 1 TABLET PO (09:10)
[2023-09-06] MEDS: Pantoprazole Sodium 40 MG Tablet PO (09:10)
[2023-09-06] MEDS: Isosorbide Mononitrate 30 MG Tablet PO (09:11)
[2023-09-06] MEDS: Spironolactone 25 MG Tablet PO ×2 (09:11→21:55)
[2023-09-06] MEDS: Allopurinol 100 MG Tablet PO ×2 (09:11→16:53)
[2023-09-06] MEDS: Potassium Chloride Oral Tablet 20 MEQ PO ×2 (09:11→16:52)
[2023-09-06] MEDS: Senna/Docusate Sodium 1 Tablet PO ×2 (09:12→21:56)
[2023-09-06] MEDS: metOLazone 5 MG Tablet PO (09:12)
[2023-09-06 09:14] VITALS: BP 108/60; PULSE 97
[2023-09-06] MEDS: Metoprolol Tartrate 100 MG Tablet PO ×2 (09:14→21:56)
[2023-09-06 09:16] VITALS: BP 108/60; PULSE 97; RESP 16; TEMP 36.6; O2SAT 93
[2023-09-06] MEDS: Gabapentin 100 MG Capsule PO ×3 (09:21→17:00)
--- NOTE | 2023-09-06 09:42 | PCM.PN.HOSP ---
Reason for Visit Reason for Visit: Diagnoses Ischemic cardiomyopathy (09/01/23) Longstanding persistent atrial fibrillation (09/01/23) Chronic kidney disease, unspecified (09/01/23) Other specified disorders of the male genital organs (09/01/23) Difficulty in walking, not elsewhere classified (09/01/23) Generalized edema (09/01/23) Subjective Subjective Patient feels somewhat generally weak and still short of breath though better than when he came in Objective Data Objective Data Vital Signs: Vital Signs Temp Pulse Resp BP Pulse Ox O2 Del Method 97.9 F 97 16 108/60 93 Room Air 09/06/23 09:16 09/06/23 09:16 09/06/23 09:16 09/06/23 09:16 09/06/23 09:16 09/06/23 09:25 Oxygen Delivery Method Room Air Weight: 131.9 kg Body Mass Index (BMI) 41.7 Intake & Output: Intake and Output for Last 24 Hours 09/05/23 09/05/23 09/06/23 00:59 23:59 23:59 Intake Total 220 / 220 Output Total 650 / 650 Balance -430 / -430 Lab / Micro Data 09/06/23 06:00 09/06/23 06:00 Labs: Laboratory Results - last 24 hr 09/05/23 11:58: POC Glucose 157 H 09/05/23 17:05: POC Glucose 145 H 09/05/23 21:44: POC Glucose 271 H 09/06/23 06:00: WBC 9.1, RBC 4.14 L, Hgb 11.6 L, Hct 38.8 L, MCV 93.7, MCH 28.0, MCHC 29.9 L, RDW Std Deviation 61.4 H, RDW Coeff of Raphael 18.0 H, Plt Count 171, MPV 10.9, Immature Gran % (Auto) 0.400, Neut % (Auto) 78.4 H, Lymph % (Auto) 9.1 L, [place] % (Auto) 9.2, Eos % (Auto) 2.3, Baso % (Auto) 0.6, Absolute Neuts (auto) 7.1, Absolute Lymphs (auto) 0.82 L, Nucleated RBC % 0, PT 28.8 H, INR 2.7, Sodium 141, Potassium 3.5, Chloride 91 L, Carbon Dioxide 41.0 H, Anion Gap 9, BUN 56 H, Creatinine 2.44 H, Estim Creat Clear Calc 27.42, Est GFR (MDRD) Af Amer 34 L, Est GFR (MDRD) Non-Af 28 L, BUN/Creatinine Ratio 23.0 H, Glucose 184 H, Calcium 9.1 09/06/23 06:21: POC Glucose 185 H Rhythm Strip Rhythm Strip: A-fib Rate: 75 Ectopy: None Physical Exam Narrative General: Alert, no apparent distress, frequently focused upon appearance of female staff and age of female staff HEENT: Atraumatic, normocephalic Eyes: Anicteric, normal conjunctiva, extraocular movements grossly intact Neck: Supple Respiratory: Diminished at the bases, slight increased respiratory effort Cardiovascular: Regular rate and rhythm GI: Soft, nontender, nondistended Extremities: No significant pitting edema Musculoskeletal: Moving all extremities Neuro: No overt focal neurological deficits Skin: No rashes appreciated Psych: Patient evasive with questions related to his symptoms and medical history and somewhat inappropriate at times regarding female staff and perseverating on appearances and ages and if he has a chance with any of them Assessment & Plan Assessment/Plan (1) Anasarca: PLAN: Plan Patient is a 73-year-old gentleman with history of congestive heart failure with reduced ejection fraction who presented with increasing swelling and shortness of breath 1. Acute on chronic congestive heart failure with reduced ejection fraction ? Echo from 06/29/2023 demonstrated EF of 40%. Patient admitted to monitored bed. Started on IV diuretics, strict input and output, low-sodium diet, daily weights and supplemental oxygen ? 09/01/2023 given patient extensive anasarca his IV scheduled Lasix 40 every 12 was discontinued patient started on Lasix drip 20 mg per. We will continue with monitoring of daily weights as well as electrolytes ? 09/02/2023;Patient continues to diurese well on Lasix drip. Diagnostic data reviewed single potassium of 2.8 additional replacement given ? 09/03/2023 patient continues to diurese aggressively ? 09/04/2023;Patient seen participating in physical therapy clinical condition continues to improve. Patient has lost a total of 10 kg since admission. ? 09/05/2023 weight down to 131.5 from 147 kg on admission -09/06: Weight evening out, 131.9 today, per documentation patient is net negative almost 16 L, creatinine bumped up and BUN elevated, suspect patient okay for transition to oral Lasix, will transition to oral and monitor as patient has high risk for decompensation with his multiple hospitalizations 2. Chronic kidney disease stage IIIb ? Patient kidney at baseline ? 09/01/2023 monitoring of kidney function with daily BMPs ordered -09/06: Kidney function with increasing creatinine and BUN, suspect this is due to to patient now being adequately diuresed, will begin to transition to oral diuresis and continue metolazone 3. Paroxysmal atrial fibrillation ? Patient is on amiodarone for rate control as well as systemic anticoagulation with Coumadin we will monitor with daily PT/INR INR -09/06: Continue Amio and Coumadin 4. Class III obesity with BMI of 44.4 ? Complicating care weight loss advised 5. GERD ? On PPI 6. Diabetes mellitus type II -patient's oral hypoglycemics held. Placed on long acting insulin, Accu-Cheks a.c. and at bedtime and covered with sliding scale insulin 7. Hypertension - Blood pressure controlled, home medications continued with dose adjustment as needed 8. Coronary artery disease with multiple TAMIA in the past ? Stable plan is to continue with guideline directed medical therapy 9. DVT prophylaxis ? Patient is on Coumadin 10. Hypokalemia -Corrected per protocol ? 09/05/2023 potassium down to 3.2 additional replacement given -09/06: Continue to replace as indicated 11. Physical deconditioning - Requested for PT OT eval and marriage and family social worker to assist with discharge planning 12. Constipation ? Patient started on stool softeners Time spent in the patient's overall evaluation,decision-making process, review of diagnostic data, adjustment of management, discussion with other providers, nursing nursing and ancillary staff involved in patient's care documentation, 35 Minutes Charges/Coding Visit Charges Inpatient E&M: 44270 Subs Hosp L2
[2023-09-06] MEDS: Furosemide 80 MG Tablet PO ×2 (12:28→16:53)
[2023-09-06 12:54] LABS: Bedside Glucose 205 mg/dL (74-106)
[2023-09-06 15:28] VITALS: BP 102/68; PULSE 77; RESP 16; TEMP 36.2; O2SAT 94
[2023-09-06 17:15] LABS: Bedside Glucose 152 mg/dL (74-106)
[2023-09-06 21:56] VITALS: BP 102/76; PULSE 104
[2023-09-06 22:00] VITALS: BP 102/76; PULSE 104; RESP 17; TEMP 36.6; O2SAT 92
[2023-09-06] MEDS: Atorvastatin Calcium 80 MG Tablet PO (22:04)
[2023-09-06 23:42] LABS: Bedside Glucose 241 mg/dL (74-106)
[2023-09-07 04:00] VITALS: BP 101/67; PULSE 78; RESP 17; TEMP 36.5; O2SAT 93
[2023-09-07 05:02] VITALS: BMI 41.9
[2023-09-07 06:13] LABS: Basophil# 0.05 X10^3/uL; Basophil% 0.7 % (0-1); Eosinophil# 0.31 X10^3/uL; Eosinophils% 4.2 % (0-5); Hematocrit 36.4 % (40-54); Hemoglobin 10.9 g/dL (13.0-16.5); Lymphocyte % 16.2 % (19-41); Mean Corp Hgb Conc 29.9 g/dL (32-36); Mean Corpuscular Hgb 28.2 pg (27.0-32.0); Mean Corpuscular Volume 94.1 fL (80-94); Monocyte# 0.79 X10^3/uL; Monocyte% 10.7 % (0-10); NRBC Flagged by Analyzer 0 % (0-5); Neutrophil # 5.01 X10^3/uL (2.7-7.7); Neutrophil % 67.8 % (47-70); Platelet Count 166 K/mm3 (150-450); RBC Distribution Width CV 17.9 % (11.6-14.6); RBC Distribution Width SD 60.7 fl (35.1-43.9); Red Blood Count 3.87 M/mm3 (4.6-6.2); White Blood Count 7.4 K/mm3 (4.4-11.0)
[2023-09-07] MEDS: Miconazole Nitrate 43 GM Bottle 1 APPLIC TOPICAL ×2 (06:23→14:20)
[2023-09-07 06:43] LABS: Anion Gap 9 (5-15); BUN 56 mg/dL (7-18); Calcium,Total 8.2 mg/dL (8.5-10.1); Chloride 93 mmol/L (98-107); Creatinine, Serum 2.44 mg/dL (0.70-1.30); EST Glomerular Filtration Rate 28 mL/min (>60); Est Glom Filt Rate - Afr Amer 34 mL/min (>60); Estimated Creatinine Clearance 27.42 ml/min; Glucose 146 mg/dL (74-106); Potassium 3.5 mmol/L (3.5-5.1); Sodium Level 139 mmol/L (136-145)
[2023-09-07 06:44] LABS: Bedside Glucose 141 mg/dL (74-106)
[2023-09-07 09:45] VITALS: O2SAT 93
[2023-09-07 10:00] VITALS: BP 114/62; PULSE 65; RESP 18; TEMP 36.4; O2SAT 92
[2023-09-07] MEDS: Multivitamins,Therapeutic Tablet 1 TABLET PO (10:09)
[2023-09-07] MEDS: Pantoprazole Sodium 40 MG Tablet PO (10:09)
[2023-09-07] MEDS: Potassium Chloride Oral Tablet 20 MEQ PO (10:09)
[2023-09-07] MEDS: Allopurinol 100 MG Tablet PO (10:09)
[2023-09-07] MEDS: Amiodarone 200 MG Tablet PO (10:09)
[2023-09-07 10:10] VITALS: BP 114/62; PULSE 65
[2023-09-07] MEDS: Furosemide 80 MG Tablet PO (10:10)
[2023-09-07] MEDS: Isosorbide Mononitrate 30 MG Tablet PO (10:10)
[2023-09-07] MEDS: Spironolactone 25 MG Tablet PO (10:10)
[2023-09-07] MEDS: Metoprolol Tartrate 100 MG Tablet PO (10:10)
[2023-09-07] MEDS: metOLazone 5 MG Tablet PO (10:11)
[2023-09-07] MEDS: Senna/Docusate Sodium 1 Tablet PO (10:11)
[2023-09-07] MEDS: Gabapentin 100 MG Capsule PO ×2 (10:15→11:36)
[2023-09-07] MEDS: 0.9% Saline Lock 10 ML Syringe IV (10:16)
[2023-09-07] MEDS: Insulin Lispro 100 UNIT/ML INSULN.PEN SC (11:35)
[2023-09-07 11:48] LABS: Bedside Glucose 185 mg/dL (74-106)
--- NOTE | 2023-09-07 12:07 | CASEMGMT ---
Social Work SW spoke w/pt about making a referral to [facility] for [facility] assist at home. Pt states he would be over income, so not agreeable to a referral at this time. MARIAELENA Comer
--- NOTE | 2023-09-07 12:49 | CASEMGMT ---
Social Work As per admitting RN, pt does not have LW/POA and declined further information. MARIAELENA Comer
--- NOTE | 2023-09-07 14:00 | CASEMGMT ---
Patient has order for discharge. BAILEE CALIX in to review needs at discharge. Patient wishes to discharge home with resumption of HHC with [facility]. Discharge manager planning to update [facility]. BAILEE CALIX received order for palliative consent and referral sent to [facility]. BAILEE CALIX discussed importance of following up with PCP and adhering to discharge instructions regarding fluid and sodium restrictions. Patient voiced understanding. BAILEE CALIX attempted to call son to discuss discharge plan, no answer, voice message left with return contact information. Patient had no further questions or concerns at this time.
--- NOTE | 2023-09-07 14:30 | DS.PCM_ITS ---
Providers Date of Admission: 09/01/23 Date of Discharge: 09/07/23 Primary Care Physician: Dr. Boston Figueroa MD Reason For Visit: ANASARCA, SCROTAL SWELLING AND PAIN Diagnosis Discharge Diagnosis (1) Anasarca: Status: Acute Code(s): R60.1 - Generalized edema Plan 1. Acute on chronic congestive heart failure with reduced ejection fraction with anasarca and scrotal swelling 2. Chronic kidney disease stage IIIb 3. Paroxysmal atrial fibrillation 4. Class III obesity with BMI of 44.4 5. GERD 6. Diabetes mellitus type II 7. Hypertension 8. Coronary artery disease with multiple TAMIA in the past Medications at Discharge Home Medications aspirin 81 mg tablet,delayed release (Adult Aspirin Regimen) 81 mg PO DAILY heart health 04/14/18 multivitamin (Daily Multi-Vitamin tablet) 1 tab PO DAILY vitamin 01/25/19 allopurinol 100 mg tablet 100 mg PO Q12H GOUT 08/03/22 pantoprazole 40 mg tablet,delayed release 40 mg PO DAILY ppi #90 tabs 08/11/22 glipizide 5 mg tablet 5 mg PO BID diabetes 09/15/22 nitroglycerin 0.4 mg sublingual tablet 0.4 mg sublingual Q5-15M PRN chest pain #25 tabs 06/09/23 atorvastatin 80 mg tablet 80 mg PO QHS anticholesterol 06/29/23 isosorbide mononitrate 30 mg tablet,extended release 24 hr 30 mg PO DAILY see doctor #30 tabs 07/19/23 metoprolol tartrate 100 mg tablet 100 mg PO BID blood pressure #180 tabs 07/26/23 melatonin 10 mg capsule 10 mg PO QHS PRN sleep 08/08/23 amiodarone 200 mg tablet 200 mg PO DAILY heart rate #30 tabs 08/13/23 gabapentin 100 mg capsule 100 mg PO TIDCM nerve pain #90 caps 08/13/23 oxycodone 5 mg tablet 5 mg PO Q6H PRN pain 3 days #12 tabs 08/13/23 warfarin 4 mg tablet 4 mg PO QPM 08/16/23 furosemide 40 mg tablet 60 mg (1.5 x 40 mg) PO BID diuretic #1 TAB 09/07/23 metolazone 5 mg tablet 5 mg PO DAILY 30 days #30 tabs 09/07/23 potassium chloride 20 mEq tablet,extended release(part/cryst) (Klor-Con M) 20 meq PO BIDCM 30 days #60 tabs 09/07/23 spironolactone 25 mg tablet 25 mg PO BID 30 days #60 tabs 09/07/23 Hospital Course Summary of Care Provided Minutes Spent on Discharge: 35 Hospital Course: Patient with a history of heart failure with reduced ejection fraction, diabetes, CKD stage III, hypertension presented to [facility] 08/30/2023 with anasarca and specifically complaining of scrotal edema. He was treated with a Lasix drip and diuresed significantly with the addition of metolazone, he was transitioned to oral Lasix in the combination of this with metolazone and added spironolactone helped patient maintain volume status. Additionally dietary and fluid intake changes stressed with patient. Given his stability over 24 hours after being changed to oral medication patient worked with physical therapy who felt he could go home with help and it was felt there was no further need for inpatient hospitalization at this time and patient stable for discharge. Patient overall is feeling better than he was and swelling significantly decreased. Patient agreeable to discharge and verbalized understanding of discharge instructions. Discharge instructions as follows: -Recommend taking 80 mg of Lasix twice daily for 3 more days and then decreasing back to 60 mg twice daily, this will be in addition to the 5 mg of metolazone that you will take daily and 25 mg of spironolactone that you will take twice daily. You will also be discharged on 20 of oral potassium supplementation twice daily -Recommend following with nephrology upon discharge as was previously advised in past as well as your heart doctor -Would recommend lab work (BMP) to check your kidney function and potassium in 2 to 3 days through your primary care physician's office. Please call their office upon discharge to obtain order for lab work. -Weigh yourself every day. A sudden weight gain can mean you are retaining fluid . Weigh yourself at the same time of day and in the same kind of clothes. Ideally, weigh yourself first thing in the morning after you empty your bladder, but before you eat breakfast. -Please call your physician if your weight goes up by more than 2 pounds in 1 day or 5 pounds in 1 week. This can be a sign that you are retaining more fluid than you should be. Clues to weight gain include checking your ankles for swelling, or noticing you are short of breath when you lie down -Keep your legs elevated as much as possible -Please limit your sodium intake to less than 3 g/day, recommend adhering to 2 L fluid restriction daily and eating a DASH diet Here are tips: Limit canned, dried, packaged, and fast foods. Don't add salt to your food at the table. Season foods with herbs instead of salt when you cook. When you eat out, ask that the chef broiler or fry not add any salt to your dish. Don't eat fried or greasy foods. Be careful of bottled beverages. They can contain a lot of salt -Call 911 right away if you have: -Severe shortness of breath, such that you can't catch your breath even while resting -Severe chest pain that does not resolve with rest or nitroglycerin -[place], foamy mucus with cough and shortness of breath -An ongoing rapid or irregular heartbeat -Passing out or fainting -Stroke symptoms such as sudden numbness or weakness on one side of your face, arm, or leg or sudden confusion, trouble speaking or vision changes -Additionally if you have never had a sleep study to assess for sleep apnea would recommend having this coordinated through your primary care physician's office -Please call your primary care provider's office upon discharge to schedule a hospital follow up within 1 week. -For any concerning signs or symptoms please call 911 or proceed to the nearest emergency department Physical Exam Narrative General: Alert, no apparent distress, frequently focused upon appearance of female staff but was slightly less and appropriate today and answer questions more directly HEENT: Atraumatic, normocephalic Eyes: Anicteric, normal conjunctiva, extraocular movements grossly intact Neck: Supple Respiratory: Improved aeration and respiratory effort Cardiovascular: Regular rate and rhythm GI: Soft, nontender, nondistended Extremities: No significant pitting edema Musculoskeletal: Moving all extremities Neuro: No overt focal neurological deficits Skin: No rashes appreciated Psych: More cooperative today Weight / BMI Weight Weight: 132.6 kg Body Mass Index (BMI) 41.9 ABG / Lab / Microbiology Data 09/07/23 05:50 09/07/23 05:50 Laboratory: Laboratory Results - last 24 hr 09/06/23 16:50: POC Glucose 152 H 09/06/23 23:19: POC Glucose 241 H 09/07/23 05:50: WBC 7.4, RBC 3.87 L, Hgb 10.9 L, Hct 36.4 L, MCV 94.1 H, MCH 28.2, MCHC 29.9 L, RDW Std Deviation 60.7 H, RDW Coeff of Raphael 17.9 H, Plt Count 166, MPV 11.0, Immature Gran % (Auto) 0.400, Neut % (Auto) 67.8, Lymph % (Auto) 16.2 L, [place] % (Auto) 10.7 H, Eos % (Auto) 4.2, Baso % (Auto) 0.7, Absolute Neuts (auto) 5.0, Absolute Lymphs (auto) 1.20, Nucleated RBC % 0, Sodium 139, Potassium 3.5, Chloride 93 L, Carbon Dioxide 37.0 H, Anion Gap 9, BUN 56 H, Creatinine 2.44 H, Estim Creat Clear Calc 27.42, Est GFR (MDRD) Af Amer 34 L, Est GFR (MDRD) Non-Af 28 L, BUN/Creatinine Ratio 23.0 H, Glucose 146 H, Calcium 8.2 L 09/07/23 06:19: POC Glucose 141 H 09/07/23 11:27: POC Glucose 185 H D/C Instructions Discharge Diet: - (-DASH diet, 3000 mg sodium restriction, 2 L fluid restriction) Return to work on: 09/13/23 Meaningful Use Info Meaningful Use Diagnoses (Choose all that apply): CHF CHF ARCADIO/ARB ordered at discharge?: No Reason ARCADIO/ARB not ordered?: Worsening renal dysfunctn Documented LVEF (%): 40 Discharge Plan Admission Admit Date/Time: 09/01/23 12:14 Primary Reason for Your Visit: Fluid overload Attending Provider: Rubi Martin Primary Care Provider: Boston Figueroa Consulting Providers: Tomasz Henderson; Rubi Martin; Reg Rob Instructions Patient Instructions: Cardiomyopathy Dc, Heart Failure Dc, Heart Failure Additional Instructions / Restrictions: DISCHARGE INSTRUCTIONS PLEASE READ *Please take this with you to your next doctors appointment* -Recommend taking 80 mg of Lasix twice daily for 3 more days and then decreasing back to 60 mg twice daily, this will be in addition to the 5 mg of metolazone that you will take daily and 25 mg of spironolactone that you will take twice daily. You will also be discharged on 20 of oral potassium supplementation twice daily -Recommend following with nephrology upon discharge as was previously advised in past as well as your heart doctor -Would recommend lab work (BMP) to check your kidney function and potassium in 2 to 3 days through your primary care physician's office. Please call their office upon discharge to obtain order for lab work. -Weigh yourself every day. A sudden weight gain can mean you are retaining fluid . Weigh yourself at the same time of day and in the same kind of clothes. Ideall y, weigh yourself first thing in the morning after you empty your bladder, but before you eat breakfast. -Please call your physician if your weight goes up by more than 2 pounds in 1 da y or 5 pounds in 1 week. This can be a sign that you are retaining more fluid than you should be. Clues to weight gain include checking your ankles for swelling, or noticing you are short of breath when you lie down -Keep your legs elevated as much as possible -Please limit your sodium intake to less than 3 g/day, recommend adhering to 2 L fluid restriction daily and eating a DASH diet Here are tips: Limit canned, dried, packaged, and fast foods. Don't add salt to your food at the table. Season foods with herbs instead of salt when you cook. When you eat out, ask that the chef broiler or fry not add any salt to your dish. Don't eat fried or greasy foods. Be careful of bottled beverages. They can contain a lot of salt -Call 911 right away if you have: -Severe shortness of breath, such that you can't catch your breath even while resting -Severe chest pain that does not resolve with rest or nitroglycerin -[place], foamy mucus with cough and shortness of breath -An ongoing rapid or irregular heartbeat -Passing out or fainting -Stroke symptoms such as sudden numbness or weakness on one side of your face, arm, or leg or sudden confusion, trouble speaking or vision changes -Additionally if you have never had a sleep study to assess for sleep apnea w ould recommend having this coordinated through your primary care physician's office -Please call your primary care provider's office upon discharge to schedule a hospital follow up within 1 week. -For any concerning signs or symptoms please call 911 or proceed to the nearest emergency department Discharge Orders/Prescriptions Prescriptions: New metolazone 5 mg Tablet 5 mg PO DAILY 30 Days Qty: 30 0RF spironolactone 25 mg Tablet 25 mg PO BID 30 Days Qty: 60 0RF potassium chloride [Klor-Con M20] 20 mEq Tablet,Er Particles/Crystals 20 meq PO BIDCM 30 Days Qty: 60 0RF Continued aspirin [Adult Aspirin Regimen] 81 mg tablet,delayed release (DR/EC) 81 mg PO DAILY multivitamin [Daily Multi-Vitamin] tablet 1 tab PO DAILY glipizide 5 mg tablet 5 mg PO BID allopurinol 100 mg tablet 100 mg PO Q12H atorvastatin 80 mg tablet 80 mg PO QHS Rx Instructions: TAKE 1 TABLET AT BEDTIME isosorbide mononitrate 30 mg Tablet Extended Release 24 Hr 30 mg PO DAILY Qty: 30 2RF melatonin 10 mg capsule 10 mg PO QHS PRN (Reason: sleep) amiodarone 200 mg Tablet 200 mg PO DAILY Qty: 30 0RF oxycodone 5 mg Tablet 5 mg PO Q6H PRN (Reason: pain) 3 Days Qty: 12 0RF gabapentin 100 mg Capsule 100 mg PO TIDCM Qty: 90 0RF warfarin 4 mg tablet 4 mg PO QPM Protocol: Dose Management Condition: Wednesday Dose/Route: 4 mg Instruction: 1 x 4 mg tablet Condition: Wednesday Dose/Route: 4 mg Instruction: 1 x 4 mg tablet Condition: Wednesday Dose/Route: 4 mg Instruction: 1 x 4 mg tablet Condition: Wednesday Dose/Route: 4 mg Instruction: 1 x 4 mg tablet Condition: Dose/Route: 4 mg Instruction: 1 x 4 mg tablet Condition: Wednesday Dose/Route: 4 mg Instruction: 1 x 4 mg tablet Condition: Wednesday Dose/Route: 4 mg Instruction: 1 x 4 mg tablet Protocol Text: Adjustment Start Date: Wednesday08/24/23 INR Value: 2.5 INR Date: 08/24/23 Recheck Date: 09/07/23 Patient Comments: TAKE 1 TABLET BY MOUTH EVERY EVENING DIRECTED furosemide 40 mg tablet 60 mg PO BID Qty: 1 0RF Rx Instructions: 80mg BID for 3 days then 60 BID pantoprazole 40 mg tablet,delayed release (DR/EC) 40 mg PO DAILY Qty: 90 3RF nitroglycerin 0.4 mg tablet, sublingual 0.4 mg sublingual Q5-15M PRN (Reason: chest pain) Qty: 25 3RF Rx Instructions: do not exceed 3 doses per episode metoprolol tartrate 100 mg tablet 100 mg PO BID Qty: 180 3RF Discontinued metolazone 2.5 mg tablet 2.5 mg PO .COMPLEX Qty: 10 0RF Rx Instructions: 2.5 mg orally once a week.; Referrals / Follow Up: Boston Figueroa MD [Primary Care Provider] - 09/17/23 10:20 am (appointment is with Fernando Hernandes) Emeterio Hutchinson MD [Med Staff - Consulting] - (Office will call to set up appointment -Please follow-up with nephrology upon discharge as previously recommended if you have not already done so. Please call their office to schedule an soo ointment upon discharge.) Kendra Bonilla PA [Med Staff - Adv Practice Prof] - 09/10/23 9:30 am (With medication changes would recommend following with your dependency case manager upon discharge) Disposition Disposition (needs filled in before D/C Order can be placed): Home Health Service Charges/Coding Visit Charges Inpatient E&M: 25070 Disch Hosp >30min
[2023-09-07 14:37] VITALS: BP 114/62; PULSE 65; RESP 18; TEMP 36.4; O2SAT 92
--- NOTE | 2023-09-07 14:56 | PHA.DC_ITS ---
Pharmacy [facility] has performed discharge medication reconciliation and counseling for this patient. The patient's discharge medication list was reviewed for discrepancies and discrepancies were resolved. The patient was counseled on the following discharge medications and changes in medications for homegoing were reviewed. The Reason for Use, instructions for use, and potential side effects were reviewed for all new medications. The patient's questions regarding all of their medications were answered. 1. Metolazone 5 mg PO daily 2. Potassium chloride 20 mEq PO BID 3. Spironolactone 25 mg PO BID The patient was able to verbally demonstrate an understanding of their discharge medications. Medications at Discharge Home Medications aspirin 81 mg tablet,delayed release (Adult Aspirin Regimen) 81 mg PO DAILY heart health 04/14/18 multivitamin (Daily Multi-Vitamin tablet) 1 tab PO DAILY vitamin 01/25/19 allopurinol 100 mg tablet 100 mg PO Q12H GOUT 08/03/22 pantoprazole 40 mg tablet,delayed release 40 mg PO DAILY ppi #90 tabs 08/11/22 glipizide 5 mg tablet 5 mg PO BID diabetes 09/15/22 nitroglycerin 0.4 mg sublingual tablet 0.4 mg sublingual Q5-15M PRN chest pain #25 tabs 06/09/23 atorvastatin 80 mg tablet 80 mg PO QHS anticholesterol 06/29/23 isosorbide mononitrate 30 mg tablet,extended release 24 hr 30 mg PO DAILY see doctor #30 tabs 07/19/23 metoprolol tartrate 100 mg tablet 100 mg PO BID blood pressure #180 tabs 07/26/23 melatonin 10 mg capsule 10 mg PO QHS PRN sleep 08/08/23 amiodarone 200 mg tablet 200 mg PO DAILY heart rate #30 tabs 08/13/23 gabapentin 100 mg capsule 100 mg PO TIDCM nerve pain #90 caps 08/13/23 oxycodone 5 mg tablet 5 mg PO Q6H PRN pain 3 days #12 tabs 08/13/23 warfarin 4 mg tablet 4 mg PO QPM 08/16/23 furosemide 40 mg tablet 60 mg (1.5 x 40 mg) PO BID diuretic #1 TAB 09/07/23 metolazone 5 mg tablet 5 mg PO DAILY 30 days #30 tabs 09/07/23 potassium chloride 20 mEq tablet,extended release(part/cryst) (Klor-Con M) 20 meq PO BIDCM 30 days #60 tabs 09/07/23 spironolactone 25 mg tablet 25 mg PO BID 30 days #60 tabs 09/07/23
--- NOTE | 2023-09-07 15:51 | CASEMGMT ---
Discharge Planning Discharge Instructions sent to [facility] via [facility]. Mable Robertson, Discharge Planning Asst.
== END 2023-09-07 18:00 | disposition home health service (06) | DRG 291 ==
LOC: ED 17:45 → PCU 20:28
PROVIDERS: Internal Medicine; Admitting Provider Family Medicine; Emergency Provider Emergency Medicine; PCP Family Medicine; Visit Provider Internal Medicine
DX: I13.0 Hypertensive heart and chronic kidney disease with heart failure and stage 1 through stage 4 chronic kidney disease, or unspecified chronic kidney disease (principal); I50.23 Acute on chronic systolic (congestive) heart failure; Z68.41 Body mass index [BMI] 40.0-44.9, adult; E11.22 Type 2 diabetes mellitus with diabetic chronic kidney disease; Z79.01 Long term (current) use of anticoagulants; J44.9 Chronic obstructive pulmonary disease, unspecified; N18.32 Chronic kidney disease, stage 3b; I48.0 Paroxysmal atrial fibrillation; E66.01 Morbid (severe) obesity due to excess calories; E78.5 Hyperlipidemia, unspecified; R26.2 Difficulty in walking, not elsewhere classified; I25.10 Atherosclerotic heart disease of native coronary artery without angina pectoris; I25.5 Ischemic cardiomyopathy; M25.551 Pain in right hip; K21.9 Gastro-esophageal reflux disease without esophagitis; E87.6 Hypokalemia; K59.00 Constipation, unspecified; R53.81 Other malaise; N50.89 Other specified disorders of the male genital organs; Z79.82 Long term (current) use of aspirin; Z79.84 Long term (current) use of oral hypoglycemic drugs; Z79.891 Long term (current) use of opiate analgesic; Z87.891 Personal history of nicotine dependence; Z95.5 Presence of coronary angioplasty implant and graft
CPT/HCPCS: 36415; 71045; 73502; 80048; 82962; 83735; 84100; 84484; 85025; 85610; 93005; 97110; 97162; 97166; 97530; 97535; 97803; 99285; A4216; J1940

== ENCOUNTER 2023-09-08 05:17 | Emergency (ER) | payer MEDICARE, SELFPAY ==
[2020-03-07 09:49] VITALS: BMI 41.8
[2023-09-08 05:18] VITALS: BP 100/63; PULSE 94; RESP 16; TEMP 35.9; O2SAT 90; BMI 41.9
--- NOTE | 2023-09-08 05:33 | CT_ITS ---
EXAM: CT CERVICAL SPINE WITHOUT INTRAVENOUS CONTRAST CLINICAL INDICATION: polytrauma TECHNIQUE: Helically acquired images were obtained of the cervical spine without intravenous contrast. 2D reformatted images were reviewed. This CT exam was performed using one or more of the following dose reduction techniques: automated exposure control, adjustment of the mA and/or kV according to patient size, and/or use of iterative reconstruction technique. RADIATION DOSE: CTDIvol = 31.31 mGy, DLP = 623.57 mGy-cm COMPARISON: No relevant prior studies available. FINDINGS: VERTEBRAE: Mild straightening and reversal of the usual lordotic curvature. Mild anterolisthesis of C4 with respect to C5 of roughly 2.6 mm. No fracture. No discrete lytic or blastic abnormality. Normal craniocervical junction and cervicothoracic junction. DISCS/SPINAL CANAL/NEURAL FORAMINA: Facet joint effusion at the right C3-4 facet joint. Narrowing of the AP diameter of the midline canal to roughly 9 mm at C5-6. Multilevel neural foraminal stenosis, most pronounced on the right at C3-4, bilaterally at C4-5, C5-6. Marked disc space narrowing at C3-4 with partial fusion, moderate disc space narrowing at C4-5, marked disc space narrowing at C5-T1. SOFT TISSUES: Unremarkable. No prevertebral soft tissue swelling. LYMPH NODES: Unremarkable. No cervical adenopathy. LUNG APICES: Unremarkable as visualized. Clear. CT/Spine Cervical without Contras IMPRESSION: Multilevel degenerative changes. No acute posttraumatic abnormality. Electronically Signed: Brianda Redd MD at 6:29 EST ,
--- NOTE | 2023-09-08 05:33 | CT_ITS ---
EXAM: CT HEAD WITHOUT INTRAVENOUS CONTRAST CLINICAL INDICATION: head injury TECHNIQUE: Multiple axial images were obtained of the head without intravenous contrast. This CT exam was performed using one or more of the following dose reduction techniques: automated exposure control, adjustment of the mA and/or kV according to patient size, and/or use of iterative reconstruction technique. RADIATION DOSE: CTDIvol = 44.99 mGy, DLP = 812.98 mGy-cm. COMPARISON: No relevant prior studies available. FINDINGS: BRAIN AND EXTRA-AXIAL SPACES: Minimal cerebral volume loss. No intra- or extra-axial hemorrhage. No evidence of acute infarct. No intracranial mass or mass effect. There is preservation of the roldan/white matter interface. Posterior fossa structures are unremarkable. Ventricles are appropriate for age. No hydrocephalus. Basal cisterns are patent. BONES/JOINTS: Mildly anteriorly subluxed left TMJ, not completely dislocated. No discrete lytic or blastic abnormalities. SOFT TISSUES: Mild right anterior frontal region scalp contusion. VASCULATURE: Moderate intracranial carotid calcifications. SINUSES: Unremarkable as visualized. Clear. MASTOID AIR CELLS: Unremarkable. Clear. ORBITS: Visualized globes, extraocular muscles, optic nerves and retrobulbar fat appear unremarkable. CT/Brain/Head without Contrast IMPRESSION: No acute intracranial abnormality. Scalp contusion. Subluxed left TMJ. Electronically Signed: Brianda Redd MD at 6:20 EST ,
--- NOTE | 2023-09-08 05:37 | ED.VIS.FALL ---
HPI HPI - Fall History of Present Illness Chief Complaint: Fall Informant: patient Narrative Narrative: Brought in by EMS from home for fall off the commode. He states he went to the bathroom, he fell asleep falling forward off the commode. His head and injury to his left forearm. He is on warfarin history of chronic A-fib. He denies any headache or arm pain. Tetanus in records in 2019. Note just discharged yesterday after 6-day stay for swelling. He states since being at home he has been walking with his walker with no difficulties. He has home health scheduled for twice a week. Denies neck pain back pain chest pains. Denies any extremity pain. Records and labs noted history of CKD creatinine 2.4. INR was 2.72 days ago. Tetanus Immunization: <5 years [facility] Medical History A-fib Abdominal pain Abnormal stress test (07/2022) Acute exacerbation of CHF (congestive heart failure) Ambulates with cane Atherosclerosis of coronary artery without angina pectoris Bilateral lower extremity edema Cardiology follow-up encounter Chest pain CHF (congestive heart failure) Chronic anemia Chronic HFrEF (heart failure with reduced ejection fraction) Chronic kidney disease Chronic kidney disease (CKD) CKD stage 3 secondary to diabetes COPD (chronic obstructive pulmonary disease) Coronary artery disease Dermatitis Diabetes Diastolic dysfunction Elevated liver enzymes Elevated troponin Essential (primary) hypertension Fatty liver Former smoker Gastric ulcer Generalized muscle weakness GI (gastrointestinal bleed) Gout Heart murmur History of CHF (congestive heart failure) History of heart attack History of non-ST elevation myocardial infarction (NSTEMI) (05/05/21) History of non-ST elevation myocardial infarction (NSTEMI) History of stress test Hyperlipidemia Ischemic cardiomyopathy Kidney stones Longstanding persistent atrial fibrillation Low iron Non-rheumatic aortic stenosis NSTEMI, initial episode of care Obesity Obstructive sleep apnea Orthopnea Osteoarthritis Paroxysmal atrial fibrillation with RVR Secondary pulmonary arterial hypertension Shortness of breath on exertion Type 2 diabetes mellitus Home Medications aspirin 81 mg tablet,delayed release (Adult Aspirin Regimen) 81 mg PO DAILY heart health 04/14/18 [History Last Taken 08/16/23] multivitamin (Daily Multi-Vitamin tablet) 1 tab PO DAILY vitamin 01/25/19 [History Last Taken 08/08/23] allopurinol 100 mg tablet 100 mg PO Q12H GOUT 08/03/22 [History Last Taken 08/16/23] pantoprazole 40 mg tablet,delayed release 40 mg PO DAILY ppi #90 tabs 08/11/22 [Rx Last Taken 08/16/23] glipizide 5 mg tablet 5 mg PO BID diabetes 09/15/22 [History Last Taken 08/16/23] nitroglycerin 0.4 mg sublingual tablet 0.4 mg sublingual Q5-15M PRN chest pain #25 tabs 06/09/23 [Rx Last Taken Unknown] atorvastatin 80 mg tablet 80 mg PO QHS anticholesterol 06/29/23 [History Last Taken 08/15/23] isosorbide mononitrate 30 mg tablet,extended release 24 hr 30 mg PO DAILY see doctor #30 tabs 07/19/23 [Rx Last Taken 08/16/23] metoprolol tartrate 100 mg tablet 100 mg PO BID blood pressure #180 tabs 07/26/23 [Rx Last Taken 08/16/23] melatonin 10 mg capsule 10 mg PO QHS PRN sleep 08/08/23 [History Last Taken 08/08/23] amiodarone 200 mg tablet 200 mg PO DAILY heart rate #30 tabs 08/13/23 [Rx Last Taken 08/16/23] gabapentin 100 mg capsule 100 mg PO TIDCM nerve pain #90 caps 08/13/23 [Rx Last Taken 08/16/23] oxycodone 5 mg tablet 5 mg PO Q6H PRN pain 3 days #12 tabs 08/13/23 [Rx Last Taken 08/16/23] warfarin 4 mg tablet 4 mg PO QPM 08/16/23 [History Last Taken 08/15/23] metolazone 5 mg tablet 5 mg PO DAILY 30 days #30 tabs 09/07/23 [Rx Last Taken Unknown] potassium chloride 20 mEq tablet,extended release(part/cryst) (Klor-Con M) 20 meq PO BIDCM 30 days #60 tabs 09/07/23 [Rx Last Taken Unknown] spironolactone 25 mg tablet 25 mg PO BID 30 days #60 tabs 09/07/23 [Rx Last Taken Unknown] furosemide 40 mg tablet 80 mg PO BID diuretic 09/08/23 [History Last Taken Unknown] Allergy/AdvReac Type Severity Reaction Status Date / Time metformin AdvReac Elevated Verified 09/08/23 05:20 LDH and anion gap Family History Mother , Age 80 Diabetes Hypertension Father , Age 55, coma Diabetes Hypertension Sister Hypertension Brother Diabetes Hypertension Cancer, Onset Age: 50 prostate cancer CAD (coronary artery disease) Surgical History History of appendectomy History of cardiac catheterization History of coronary artery stent placement (01/24/20) History of esophagogastroduodenoscopy (EGD) History of herniorrhaphy History of left heart catheterization (07/13/22) History of tonsillectomy History of total knee replacement (TKR) Status post cholecystectomy Social History household members: children Smoking Status: Former smoker quit date: 01/31/11 alcohol intake: current alcohol intake frequency: holidays/special occasions only substance use type: does not use caffeine: Yes Type: coffee ROS ROS ED Constitutional Constitutional ED: Denies chills, fever(s) or sweats Eyes Eyes: Denies change in vision ENT ENT ED: Denies dysphagia or sore throat Cardiovascular Cardiovascular: Denies chest pain, leg edema, palpitations or racing heartbeat Respiratory/Chest Respiratory/Chest: Denies cough, dyspnea or dyspnea on exertion Gastrointestinal Gastrointestinal: Denies abdominal pain, diarrhea, nausea or vomiting Genitourinary Genitourinary ED: Denies dysuria, hematuria or urinary frequency Musculoskeletal Musculoskeletal: Denies back pain, extremity pain or neck pain Integumentary Reports wounds; Denies rash Neurologic Neurologic: Denies headache(s), paresthesias or weakness EXAM Physical Exam Const Vital Signs: 09/08/23 05:18 09/08/23 06:59 Temperature 96.6 F L Temperature Source Temporal Pulse Rate 94 90 Respiratory Rate 16 23 H Blood Pressure 100/63 106/68 Blood Pressure Mean 75 80 Pulse Ox 90 97 Positive well nourished and well developed Constitutional Narrative: G CS 15 General Appearance ED: well developed and NAD HEENT Reports TM's clear and moist mucous membranes HEENT Narrative: Small abrasion at the bridge of the nose with dried blood. Contusion right upper forehead. No trismus. No facial bone tenderness. normocephalic Tympanic Membrane ED: Yes TM's clear Eyes PERRL, EOMs intact bilaterally and conjunctivae normal General Eye ED: Yes normal appearance of both eyes Neck no lymphadenopathy and supple General: Negative for tenderness Chest Wall inspection of chest normal and palpation of chest normal Chest: Negative for tenderness Resp normal respiratory effort and normal air movement Effort and Inspection: symmetric chest movement; Negative for respiratory distress Cardio regular rate and no murmurs Rhythm: abnormal rhythm Peripheral Pulses: pulses 2+ throughout GI normal to inspection, nondistended, normoactive bowel sounds and non-tender Palpation: Negative for guarding or rebound tenderness present Back/Spine no CVA tenderness and no thoracic nor lumbar tenderness Extremity normal to inspection Extremity Narrative: Upper extremities: Full range of motion without tenderness. Left forearm small skin abrasion dorsal proximal forearm dried blood. No deformities. Pulse intact distally. Lower extremity: Negative logroll bilateral extremities. Minimal swelling lower extremities. Pulses intact distally. General Extremety ED: Yes edema; Negative for tenderness General Extremity: edema Neuro oriented x3, CN's II-XII intact bilaterally and no sensory deficits noted Sensorium / Orientation: awake and alert Skin Skin Narrative: See above MDM MDM MDM Narrative Medical decision making narrative: Interventions / MDM: Differential diagnosis: Closed head injury, skin abrasions Diagnosis considered but do not suspect: N/A My EKG interpretation: N/A Imaging independently reviewed and interpreted by myself: CT brain: No intracranial hemorrhage. No fractures. CT cervical spine: Degenerative changes noted, no fractures noted. External documents reviewed: N/A Test considered but not ordered:N/A ED course: Patient tetanus up-to-date superficial abrasions. Head injury on warfarin. Trauma scans head and neck ordered. Nursing will clean wounds with dressing. Patient states he has been at home since being discharged and able to get around. He is unable to get up after being on the ground. We will plan to ambulate with a walker after image studies prior to disposition. 0556: Trauma scans interpreted myself shows no acute process. Awaiting final read. 0630: Final read from radiology negative for any acute process. Patient able to ambulate with nursing walking alongside with no difficulties. The monitor heart rate would fluctuate 90s to 110s with A-fib with his history. He did not take his medicine since last night. He is given his home dose of metoprolol of 100 mg prior to discharge. He will be discharged home. All questions were answered. Re-evaluation: stable Disposition discussed with patient/family/significant other: Patient Case discussed with consulting clinician: N/A This note was generated with [employer]able dictation software. It may contain incorrect words, spelling, and punctuation that were not noted in checking the note before signing. Radiography Diagnostic Testing: Clinical Impression(s) from Imaging Studies Brain CT 09/08/23 05:33 IMPRESSION: No acute intracranial abnormality. Scalp contusion. Subluxed left TMJ. Electronically Signed: Brianda Redd MD at 6:20 EST , Cervical Spine CT 09/08/23 05:33 IMPRESSION: Multilevel degenerative changes. No acute posttraumatic abnormality. Electronically Signed: Brianda Redd MD at 6:29 EST , Discharge Plan Triage Chief Complaint: Fall ED Provider: Jf Tubbs Dx/Rx/DC Orders Clinical Impression: Atrial fibrillation, CHI (closed head injury), Contusion of face, Abrasion Instructions: AFib Dc, ED Head Injury (Adult) Prescriptions: No Action aspirin [Adult Aspirin Regimen] 81 mg tablet,delayed release (DR/EC) 81 mg PO DAILY multivitamin [Daily Multi-Vitamin] tablet 1 tab PO DAILY glipizide 5 mg tablet 5 mg PO BID allopurinol 100 mg tablet 100 mg PO Q12H atorvastatin 80 mg tablet 80 mg PO QHS Rx Instructions: TAKE 1 TABLET AT BEDTIME furosemide 40 mg tablet 80 mg PO BID Rx Instructions: 80mg BID for 3 days (STARTING 09/07/23) then 60 BID isosorbide mononitrate 30 mg Tablet Extended Release 24 Hr 30 mg PO DAILY Qty: 30 2RF melatonin 10 mg capsule 10 mg PO QHS PRN (Reason: sleep) amiodarone 200 mg Tablet 200 mg PO DAILY Qty: 30 0RF oxycodone 5 mg Tablet 5 mg PO Q6H PRN (Reason: pain) 3 Days Qty: 12 0RF gabapentin 100 mg Capsule 100 mg PO TIDCM Qty: 90 0RF warfarin 4 mg tablet 4 mg PO QPM Protocol: Dose Management Condition: Wednesday Dose/Route: 4 mg Instruction: 1 x 4 mg tablet Condition: Wednesday Dose/Route: 4 mg Instruction: 1 x 4 mg tablet Condition: Wednesday Dose/Route: 4 mg Instruction: 1 x 4 mg tablet Condition: Wednesday Dose/Route: 4 mg Instruction: 1 x 4 mg tablet Condition: Dose/Route: 4 mg Instruction: 1 x 4 mg tablet Condition: Wednesday Dose/Route: 4 mg Instruction: 1 x 4 mg tablet Condition: Wednesday Dose/Route: 4 mg Instruction: 1 x 4 mg tablet Protocol Text: Adjustment Start Date: Wednesday08/24/23 INR Value: 2.5 INR Date: 08/24/23 Recheck Date: 09/07/23 Patient Comments: TAKE 1 TABLET BY MOUTH EVERY EVENING DIRECTED metolazone 5 mg Tablet 5 mg PO DAILY 30 Days Qty: 30 0RF Patient Comments: FOR 5 DAYS STARTING 09/07/23 spironolactone 25 mg Tablet 25 mg PO BID 30 Days Qty: 60 0RF potassium chloride [Klor-Con M20] 20 mEq Tablet,Er Particles/Crystals 20 meq PO BIDCM 30 Days Qty: 60 0RF pantoprazole 40 mg tablet,delayed release (DR/EC) 40 mg PO DAILY Qty: 90 3RF nitroglycerin 0.4 mg tablet, sublingual 0.4 mg sublingual Q5-15M PRN (Reason: chest pain) Qty: 25 3RF Rx Instructions: do not exceed 3 doses per episode metoprolol tartrate 100 mg tablet 100 mg PO BID Qty: 180 3RF Primary Care Provider: Boston Figueroa Referrals: Boston Figueroa MD [Primary Care Provider] - Activity Restrictions/Additional Instructions: Scans of your head and neck are negative for any fracture or bleed. You are given your morning dose of metoprolol due to your A-fib. Do not take this when you get home until this evening. Follow-up with your doctor. Disposition Disposition: Home, Self Care
[2023-09-08] MEDS: Metoprolol Tartrate 100 MG Tablet PO (06:56)
[2023-09-08 06:59] VITALS: BP 106/68; PULSE 90; RESP 23; O2SAT 97
[2023-09-08 07:18] VITALS: BP 138/84; PULSE 82; RESP 16; TEMP 36.9; O2SAT 95
== END 2023-09-08 07:47 | disposition home or self-care (01) ==
PROVIDERS: Emergency Provider Emergency Medicine; PCP Family Medicine; Visit Provider Emergency Medicine
DX: S00.03XA Contusion of scalp, initial encounter (principal); J44.9 Chronic obstructive pulmonary disease, unspecified; I13.0 Hypertensive heart and chronic kidney disease with heart failure and stage 1 through stage 4 chronic kidney disease, or unspecified chronic kidney disease; I50.22 Chronic systolic (congestive) heart failure; E11.22 Type 2 diabetes mellitus with diabetic chronic kidney disease; I48.91 Unspecified atrial fibrillation; S50.812A Abrasion of left forearm, initial encounter; S00.31XA Abrasion of nose, initial encounter; I25.5 Ischemic cardiomyopathy; M47.812 Spondylosis without myelopathy or radiculopathy, cervical region; I25.10 Atherosclerotic heart disease of native coronary artery without angina pectoris; W18.11XA Fall from or off toilet without subsequent striking against object, initial encounter; E78.5 Hyperlipidemia, unspecified; Z79.82 Long term (current) use of aspirin; Z79.84 Long term (current) use of oral hypoglycemic drugs; Z79.899 Other long term (current) drug therapy; Z87.891 Personal history of nicotine dependence
CPT/HCPCS: 70450; 72125; 99284

== ENCOUNTER → 2023-09-10 | Outpatient (CLI) | payer MEDICARE, SELFPAY ==
[2020-03-07 09:49] VITALS: BMI 41.8
[2023-09-10 12:14] LABS: Anion Gap 9 (5-15); BUN 63 mg/dL (7-18); BUN/Creat Ratio 20.9 RATIO (10-20); Calcium,Total 8.6 mg/dL (8.5-10.1); Chloride 93 mmol/L (98-107); Creatinine, Serum 3.01 mg/dL (0.70-1.30); EST Glomerular Filtration Rate 22 mL/min (>60); Est Glom Filt Rate - Afr Amer 26 mL/min (>60); Glucose 152 mg/dL (74-106); Potassium 3.2 mmol/L (3.5-5.1); Sodium Level 140 mmol/L (136-145)
== END | disposition home or self-care (01) ==
PROVIDERS: PCP Family Medicine; Referring Provider Physician Assistant Medical; Visit Provider Physician Assistant Medical
DX: R60.1 Generalized edema (principal)
CPT/HCPCS: 36415; 80048

== ENCOUNTER 2023-09-11 23:14 | Emergency (ER) | payer MEDICARE, SELFPAY ==
[2020-03-07 09:49] VITALS: BMI 41.8
[2023-09-11 23:14] VITALS: TEMP 36.7; BMI 41.3
[2023-09-11 23:15] VITALS: BP 88/25; PULSE 105; PULSE 110; PULSE 132; PULSE 138; PULSE 144; PULSE 72; RESP 16
--- NOTE | 2023-09-11 23:48 | EX.ED.CRITCA ---
HPI History of Present Illness Chief Complaint: CPR Informant: EMS Onset/Context/Timing Onset: Today Context: Sudden Onset Timing: Continuous Narrative Narrative: Patient presents after witnessed arrest that occurred tonight. Patient was walking to the [facility] to visit his son when he suddenly collapsed and fell to the ground. EMS was called immediately. CPR was started immediately. EMS noted that the patient was in V-fib. EMS defibrillated the patient multiple times. EMS administered 7 mg of epinephrine. EMS states that the patient went into PEA just prior to arrival. EMS inserted a Ken airway. EMS reports another squad was dispatched to his home earlier today for a lift assist. EMS reports that the patient declined transport to the emergency department at that time. [facility] Medical History A-fib Abdominal pain Abnormal stress test (07/2022) Acute exacerbation of CHF (congestive heart failure) Ambulates with cane Atherosclerosis of coronary artery without angina pectoris Bilateral lower extremity edema Cardiology follow-up encounter Chest pain CHF (congestive heart failure) Chronic anemia Chronic HFrEF (heart failure with reduced ejection fraction) Chronic kidney disease Chronic kidney disease (CKD) CKD stage 3 secondary to diabetes COPD (chronic obstructive pulmonary disease) Coronary artery disease Dermatitis Diabetes Diastolic dysfunction Elevated liver enzymes Elevated troponin Essential (primary) hypertension Fatty liver Former smoker Gastric ulcer Generalized muscle weakness GI (gastrointestinal bleed) Gout Heart murmur History of CHF (congestive heart failure) History of heart attack History of non-ST elevation myocardial infarction (NSTEMI) (05/05/21) History of non-ST elevation myocardial infarction (NSTEMI) History of stress test Hyperlipidemia Ischemic cardiomyopathy Kidney stones Longstanding persistent atrial fibrillation Low iron Non-rheumatic aortic stenosis NSTEMI, initial episode of care Obesity Obstructive sleep apnea Orthopnea Osteoarthritis Paroxysmal atrial fibrillation with RVR Secondary pulmonary arterial hypertension Shortness of breath on exertion Type 2 diabetes mellitus Home Medications aspirin 81 mg tablet,delayed release (Adult Aspirin Regimen) 81 mg PO DAILY heart health 04/14/18 [History Last Taken 08/16/23] multivitamin (Daily Multi-Vitamin tablet) 1 tab PO DAILY vitamin 01/25/19 [History Last Taken 08/08/23] allopurinol 100 mg tablet 100 mg PO Q12H GOUT 08/03/22 [History Last Taken 08/16/23] pantoprazole 40 mg tablet,delayed release 40 mg PO DAILY ppi #90 tabs 08/11/22 [Rx Last Taken 08/16/23] glipizide 5 mg tablet 5 mg PO BID diabetes 09/15/22 [History Last Taken 08/16/23] nitroglycerin 0.4 mg sublingual tablet 0.4 mg sublingual Q5-15M PRN chest pain #25 tabs 06/09/23 [Rx Last Taken Unknown] atorvastatin 80 mg tablet 80 mg PO QHS anticholesterol 06/29/23 [History Last Taken 08/15/23] isosorbide mononitrate 30 mg tablet,extended release 24 hr 30 mg PO DAILY see doctor #30 tabs 07/19/23 [Rx Last Taken 08/16/23] metoprolol tartrate 100 mg tablet 100 mg PO BID blood pressure #180 tabs 07/26/23 [Rx Last Taken 08/16/23] melatonin 10 mg capsule 10 mg PO QHS PRN sleep 08/08/23 [History Last Taken 08/08/23] amiodarone 200 mg tablet 200 mg PO DAILY heart rate #30 tabs 08/13/23 [Rx Last Taken 08/16/23] gabapentin 100 mg capsule 100 mg PO TIDCM nerve pain #90 caps 08/13/23 [Rx Last Taken 08/16/23] oxycodone 5 mg tablet 5 mg PO Q6H PRN pain 3 days #12 tabs 08/13/23 [Rx Last Taken 08/16/23] warfarin 4 mg tablet 4 mg PO QPM 08/16/23 [History Last Taken 08/15/23] potassium chloride 20 mEq tablet,extended release(part/cryst) (Klor-Con M) 20 meq PO BIDCM 30 days #60 tabs 09/07/23 [Rx Last Taken Unknown] spironolactone 25 mg tablet 25 mg PO BID 30 days #60 tabs 09/07/23 [Rx Last Taken Unknown] furosemide 40 mg tablet 80 mg PO BID diuretic 09/10/23 [History Last Taken Unknown] metolazone 5 mg tablet 2.5 mg (1/2 x 5 mg) PO DAILY 30 days #15 tabs 09/10/23 [Rx Last Taken Unknown] Allergy/AdvReac Type Severity Reaction Status Date / Time metformin AdvReac Elevated Verified 09/10/23 09:37 LDH and anion gap Family History Mother , Age 80 Diabetes Hypertension Father , Age 55, coma Diabetes Hypertension Sister Hypertension Brother Diabetes Hypertension Cancer, Onset Age: 50 prostate cancer CAD (coronary artery disease) Surgical History History of appendectomy History of cardiac catheterization History of coronary artery stent placement (01/24/20) History of esophagogastroduodenoscopy (EGD) History of herniorrhaphy History of left heart catheterization (07/13/22) History of tonsillectomy History of total knee replacement (TKR) Status post cholecystectomy Social History household members: children Smoking Status: Former smoker quit date: 01/31/11 alcohol intake: current alcohol intake frequency: holidays/special occasions only substance use type: does not use caffeine: Yes Type: coffee ROS ROS ED Review of Systems ROS Unobtainable: due to encephalopathy, due to endotracheal tube and due to mental condition EXAM Physical Exam Const Positive obese Nutritional Appearance: obese HEENT cyanosis of lips/distal nose Cardio Cardio Narrative: There were no heart tones auscultated. There is no femoral or carotid pulse palpated initially. GI non-distended Palpation: soft Neuro Neuro Narrative: Patient is unresponsive. Patient has no spontaneous movements. MDM MDM MDM Narrative Medical decision making narrative: CPR was continued. The Ken airway was removed. Patient was intubated with a 7.5 ET tube to 24 cm at the lip. Patient was given multiple other doses of epinephrine. Patient was also defibrillated multiple times. A pulse was returned briefly. However patient went back into ventricular fibrillation. Patient was defibrillated again. Patient went into PEA again. There was blood coming from the endotracheal tube. Given multiple defibrillation attempts and multiple doses of epinephrine with no return of spontaneous circulation, CPR was discontinued. Patient was pronounced at 2338. Procedures Intubations Intubation Method: orotracheal Intubation Verification: Positive color change and Bilateral breath sounds confirmed Intubation Complications: no complications Critical Care Time Critical Care Time: Yes Critical care time (excluding procedures): 30-74 minutes (34), Including time spent:, Discussing w/Patient &/or Family/Associate Editor and Performing Direct Patient Care at Bedside Discharge Plan Triage Chief Complaint: CPR ED Provider: Boris Peng Dx/Rx/DC Orders Clinical Impression: Cardiopulmonary arrest, Debility, Obesity Prescriptions: No Action aspirin [Adult Aspirin Regimen] 81 mg tablet,delayed release (DR/EC) 81 mg PO DAILY multivitamin [Daily Multi-Vitamin] tablet 1 tab PO DAILY glipizide 5 mg tablet 5 mg PO BID allopurinol 100 mg tablet 100 mg PO Q12H atorvastatin 80 mg tablet 80 mg PO QHS Rx Instructions: TAKE 1 TABLET AT BEDTIME furosemide 40 mg tablet 80 mg PO BID Rx Instructions: 120 mg next three days isosorbide mononitrate 30 mg Tablet Extended Release 24 Hr 30 mg PO DAILY Qty: 30 2RF melatonin 10 mg capsule 10 mg PO QHS PRN (Reason: sleep) amiodarone 200 mg Tablet 200 mg PO DAILY Qty: 30 0RF oxycodone 5 mg Tablet 5 mg PO Q6H PRN (Reason: pain) 3 Days Qty: 12 0RF gabapentin 100 mg Capsule 100 mg PO TIDCM Qty: 90 0RF warfarin 4 mg tablet 4 mg PO QPM Protocol: Dose Management Condition: Wednesday Dose/Route: 4 mg Instruction: 1 x 4 mg tablet Condition: Wednesday Dose/Route: 4 mg Instruction: 1 x 4 mg tablet Condition: Wednesday Dose/Route: 4 mg Instruction: 1 x 4 mg tablet Condition: Wednesday Dose/Route: 4 mg Instruction: 1 x 4 mg tablet Condition: Dose/Route: 4 mg Instruction: 1 x 4 mg tablet Condition: Wednesday Dose/Route: 4 mg Instruction: 1 x 4 mg tablet Condition: Wednesday Dose/Route: 4 mg Instruction: 1 x 4 mg tablet Protocol Text: Adjustment Start Date: Wednesday08/24/23 INR Value: 2.5 INR Date: 08/24/23 Recheck Date: 09/07/23 Patient Comments: TAKE 1 TABLET BY MOUTH EVERY EVENING DIRECTED spironolactone 25 mg Tablet 25 mg PO BID 30 Days Qty: 60 0RF potassium chloride [Klor-Con M20] 20 mEq Tablet,Er Particles/Crystals 20 meq PO BIDCM 30 Days Qty: 60 0RF pantoprazole 40 mg tablet,delayed release (DR/EC) 40 mg PO DAILY Qty: 90 3RF nitroglycerin 0.4 mg tablet, sublingual 0.4 mg sublingual Q5-15M PRN (Reason: chest pain) Qty: 25 3RF Rx Instructions: do not exceed 3 doses per episode metoprolol tartrate 100 mg tablet 100 mg PO BID Qty: 180 3RF metolazone 5 mg tablet 2.5 mg PO DAILY 30 Days Qty: 15 0RF Patient Comments: FOR 5 DAYS STARTING 09/07/23 Primary Care Provider: Boston Figueroa Referrals: Boston Figueroa MD [Primary Care Provider] - Disposition Disposition:
--- NOTE | 2023-09-12 00:30 | ED.RN ---
CALLED [facility] [employer] TO SEE IF SON WOULD BE ABLE TO SPEAK TO DR FUNES,THEY STATED THEY WILL DO WHAT THEY CAN. [id number] MORAN,WHO IS COVERING FOR DR PETERS,UNABLE TO REACHX2 ATTEMPTS--MESSAGE LEFT.
--- NOTE | 2023-09-12 00:37 | ED.RN ---
ATTEMPT TO CALL DAUGHTER, WHO LIVES IN [place],LEFT MESSAGE TO CALL..
--- NOTE | 2023-09-12 00:52 | ED.RN ---
CALLED [facility] TO INFORM THEM THAT FLAQUITA DEE WAS NOTIFIED VIA [facility]CTION, BUT DAUGHTER,CHRIS HAS NOT CALLED BACK. INFORMED TO CALL [facility] AND WHEN DAUGHTER CALLS.
--- NOTE | 2023-09-12 00:57 | ED.RN ---
ATTEMPT TO CALL NIKKO,THE BROTHER AND ONLY GOT AN ANSWERING MACHINE.
[2023-09-12 01:46] VITALS: RESP 0
--- NOTE | 2023-09-12 10:44 | ED.RN ---
TIS MORNING TALKED WITH MERARY DEE, PTS BROTHER. HE THEN WAS GOING TO GET IN TOUCH WITH THE REST OF THE FAMILY. [employer] WAS GIVEN MERARY'S CONTACT INFO. JUST RECEIVED A CALL FROM SON IN LAW STATING THAT HIS CHRIS IS THE PT POA AND NO ONE ELSE IS TO BE TALKED TO ABOUT THE PT. EXPLAINED THAT MERARY WAS TALKED TO AND WAS CONTACTING THE FAMILY BECAUSE HE WAS THE FIRST FAMILY MEMBER OTHER THAN THE SON FLAQUITA THAT IS [place] THAT WE WERE UNABLE TO CONTACT. EXPLAINED THAT [facility] NEEDS TO RELEASE THE PT PRIOR TO HIM BEING ABLE TO GO TO THE HOME. THIS NURSE LOOKED INTO THE CHART AND PTS BROTHER NIKKO IS LISTED POA. THE SON IN LAW STATES HE HAS ALL THE PAPERWORK STATING OTHERWISE. AT THIS TIME I GAVE THEM THE NUMBER FOR [employer] AND TOLD HIM THEY COULD TALK WITH THEM. WAITING TO HEAR FROM [facility] TO RELEASE THE BODY
== END 2023-09-12 01:35 ==
PROVIDERS: Emergency Provider Emergency Medicine; PCP Family Medicine; Visit Provider Emergency Medicine
DX: I46.9 Cardiac arrest, cause unspecified (principal); J44.9 Chronic obstructive pulmonary disease, unspecified; I50.42 Chronic combined systolic (congestive) and diastolic (congestive) heart failure; I13.0 Hypertensive heart and chronic kidney disease with heart failure and stage 1 through stage 4 chronic kidney disease, or unspecified chronic kidney disease; E11.22 Type 2 diabetes mellitus with diabetic chronic kidney disease; I49.01 Ventricular fibrillation; N18.30 Chronic kidney disease, stage 3 unspecified; Z87.891 Personal history of nicotine dependence; E78.5 Hyperlipidemia, unspecified; I25.10 Atherosclerotic heart disease of native coronary artery without angina pectoris; E66.9 Obesity, unspecified
CPT/HCPCS: 31500; 92950; 99283; J7030; A4216